=== PATIENT | male | born 1965 | race Caucasian/White ===

== ENCOUNTER 2020-02-14 09:12 | Emergency (ER) | payer BC, SELFPAY ==
[2020-02-14 09:15] VITALS: BP 192/118; PULSE 77; RESP 14; TEMP 37.2; O2SAT 96; BMI 23.7
--- NOTE | 2020-02-14 09:43 | HMH.EDUTC ---
[facility] [place] Clinical Impression: Exposure to COVID-19 virus Disposition: Home, Self-Care Condition on Discharge: Good Instructions: Preventing the Spread of Coronavirus Discharge Instructions Additional Instructions: Drink plenty of fluids. Take tylenol for pain or fever. Follow up with your regular doctor. GO TO THE ER FOR ANY WORSENING SYMPTOMS Follow up with your heart doctor and your primary care physician regarding your blood pressure. Make sure to take your heart medications as prescribed. Referrals: Kev Melendez [Primary Care Provider] - Forms: Work/School Release Time of Disposition: 09:45 Medical Decision Making - Medical Records Medical records reviewed: No: I reviewed the patient's medical records. - Paul Inquiry Pt receiving controlled substance: No Vital Signs: 02/14/20 09:15 02/14/20 10:01 Temperature 98.9 F 98.9 F Temperature Source Oral Pulse Rate 77 Pulse Rate [Left Brachial] 77 Respiratory Rate 14 14 Blood Pressure 192/118 H Blood Pressure [Left Arm] 192/118 H Blood Pressure Mean [Left Arm] 142 Blood Pressure Source [Left Arm] Automatic Cuff Blood Pressure Position [Left Arm] Sitting 02 Sat by Pulse Oximetry 96 Oxygen Delivery Method Room Air Orders (Tests/Meds): ORDERS Category Date Time Status Covid-19 Nasal PCR Sendout Timothy Routine Lab 02/14/20 09:20 [place] [facility] [place] - General Stated complaint: covid symptoms Time Seen by Provider: 02/14/20 09:43 Mode of Arrival: Ambulatory Source of Information: Patient Limitations: No Limitations Description of Symptoms (Recalled from Triage Doc. by RN): PATIENT C/O SORE THROAT, COUGH, AND FATIGUE SINCE FRIDAY. NO KNOWN DIRECT CONTACT, OR FEVER. HEENT Symptoms (Recalled from RN notes): Yes Resp Symptoms (Recalled from RN notes): Yes Skin Symptoms (Recalled from RN notes): No MS Symptoms (Recalled from RN notes): No Functional Status (Recalled from RN notes): WNL - History of Present Illness Provider Complaint: He c/o sore throat and cough for the past 3 days. His boss sent him here to be tested for covid. - Related Data Home Medications Medication Instructions Recorded Confirmed Levothyroxine Sodium 75 mcg PO DAILY 02/14/20 02/14/20 [Levothyroxine 75mcg (0.075mg) Tab] Metoprolol Tartrate [Lopressor 100 100 mg PO BID 02/14/20 02/14/20 mg Tablets] Omeprazole [Omeprazole 20mg 20 mg PO DAILY 02/14/20 02/14/20 Capsule] Sertraline HCl [Zoloft 50mg tablet] 50 mg PO DAILY 02/14/20 02/14/20 Allergies Allergy/AdvReac Type Severity Reaction Status Date / Time Unable to Assess Allergy Verified 02/14/20 09:39 - Worker's Comp Is this a Worker's Comp case?: No [facility] History - Hepatitis A Screen Drug use history?: No High risk sexual behaviors?: No History of sexually transmitted infection?: No Currently employed?: No Childcare worker?: No Do you have indoor plumbing?: Yes Do you have electricity?: Yes Attestation statement:: This patient has been screened for Hepatitis A risk factors. I have reviewed the patient's past medical history: Yes - Social History Alcohol Intake: never Occupational Status: other ROS Obtained: Yes All systems reviewed & no additional complaints - Constitutional Constitutional: Reports system reviewed and no additional complaints, except as docu - Eyes Eyes: Reports system reviewed and no additional complaints, except as docu - ENT Ears, Nose, Mouth, and Throat: Reports system reviewed and no additional complaints, except as docu - Cardiovascular Cardiovascular: Reports system reviewed and no additional complaints, except as docu - Respiratory Respiratory: Yes system reviewed and no additional complaints, except as docu - Gastrointestinal Gastrointestingal: Reports: system reviewed and no additional complaints, except as docu Physical Exam - General General appearance: alert, in no apparent distress - Head H
[2020-02-14 10:01] VITALS: BP 192/118; PULSE 77; RESP 14; TEMP 37.2; O2SAT 96
[2020-02-15 13:07] LABS: Covid-19 Nasal PCR Sendout Lex NOT DETECTED
--- NOTE | 2020-02-15 17:37 | PC.NURSE ---
Results given to pt.
== END 2020-02-14 10:07 | disposition home or self-care (01) ==
PROVIDERS: Emergency Provider Nurse Practitioner Family; PCP Family Medicine
DX: Z20.828 Contact with and (suspected) exposure to other viral communicable diseases (principal); I10 Essential (primary) hypertension; J02.9 Acute pharyngitis, unspecified
CPT/HCPCS: 99201; U0004

== ENCOUNTER → 2020-07-24 11:45 | Outpatient (CLI) | payer BC, SELFPAY ==
--- NOTE | 2020-07-24 11:53 | XR_ITS ---
PROCEDURE: XR LUMBAR SPINE MIN 4V CLINICAL INDICATION: LUMBAR DISC DISEASE,LOW BACK PAIN COMPARISON: No exams were available for comparison FINDINGS: There is straightening of the lumbar lordosis. Degenerative disc disease is present at L4-5 and L5-S1. Prominent anterior osteophytes are present at L5-S1. Small Schmorl's node is present along the superior endplate of L3 with slight loss of height anteriorly of L3 age indeterminate. Lucency is noted within the lamina on the right at L5 and could be due to prior surgical defect. Please correlate with patient's history. Nondistended gas-filled loops of small and large bowel are noted. IMPRESSION: Degenerative changes as described above at L4-5 and L5-S1 with straightening of the lumbar lordosis which could be due to patient positioning or muscle spasm.. Minimal wedging of L3 age indeterminate. Defect in the lamina on the right at L5 which could be postsurgical. Please correlate with surgical history. Dictated by: Binu Elizalde MD 07/24/2020 12:15 Binu Elizalde MD in [place] 07/24/2020 12:15
== END ==
PROVIDERS: PCP Family Medicine; Visit Provider Family Medicine
DX: M54.41 Lumbago with sciatica, right side (principal); M51.9 Unspecified thoracic, thoracolumbar and lumbosacral intervertebral disc disorder
CPT/HCPCS: 72110

== ENCOUNTER → 2020-07-28 14:57 | Outpatient (CLI) | payer BC, SELFPAY ==
--- NOTE | 2020-07-28 15:00 | MR_ITS ---
PROCEDURE INFORMATION: Exam: MR Lumbar Spine Without Contrast Exam date and time: 07/28/2020 3:00 PM Age: 55 years old Clinical indication: Low back pain; Prior surgery; Surgery date: 6+ months; Additional info: Right sided low back pain. HX lumbar surgery in 94. RT sided lbp with pain, numbness, and tingling radiating down leg. Symptoms [id number]. No injury or trauma. Prior x-ray 07-24-20 TECHNIQUE: Imaging protocol: Multiplanar magnetic resonance images of the lumbar spine without intravenous contrast. COMPARISON: CR XR LUMBAR SPINE MIN 4V 07/24/2020 11:55 AM FINDINGS: Vertebrae: Type 2 Modic endplate degenerative changes at the L4-L5 level is seen. No acute fracture or malalignment is seen. Spinal cord: Normal signal. No cord compression. L1-L2: No significant disc disease. No significant spinal canal stenosis. No neural foraminal stenosis. L2-L3: There is loss of disc height and signal with a Schmorl's node seen along the anterior superior endplate of L3. Mild disc bulging is seen. Mild to moderate bilateral facet joint arthropathy is demonstrated. These changes cause minimal spinal and neural foraminal stenosis. L3-L4: There is mild loss of disc height and signal. Mild diffuse disc bulging is seen which extends into the neural foramen bilaterally. In addition there is bilateral facet joint arthropathy and ligamentous hypertrophy the combination of which causes severe bilateral neural foraminal stenosis particularly on the right where there is an associated focal disc protrusion into the neural foramen and severe facet joint arthropathy. This is moderate on the left.. L4-L5: There is severe loss of disc height and signal with a mild diffuse disc bulge which extends into the neural foramen bilaterally. There is associated facet joint arthropathy particularly on the right with near complete loss of the disc height. These changes causes moderate to severe left neural foraminal stenosis severe right neural foraminal stenosis and mild spinal stenosis.. L5-S1: There is complete loss of disc height and signal with type 2 Modic endplate degenerative changes. Moderate bilateral facet joint arthropathy is seen greater on the right than the left with associated severe bilateral neural foraminal stenosis and minimal spinal stenosis. Soft tissues: A simple cyst of the left kidney is seen for which no further imaging is needed.. IMPRESSION: Multilevel degenerative changes as discussed above. No findings of acute fracture or malaligned.
== END ==
PROVIDERS: PCP Family Medicine; Visit Provider Family Medicine
DX: M54.41 Lumbago with sciatica, right side (principal); S32.030A Wedge compression fracture of third lumbar vertebra, initial encounter for closed fracture
CPT/HCPCS: 72148; 76376

== ENCOUNTER → 2020-12-13 11:15 | Outpatient (CLI) | payer BC, SELFPAY ==
--- NOTE | 2020-12-13 | CA_ITS ---
APPROVED REPORT Right Lower Extremity Venous Study for DVT. 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: [employer] Indications Shortness of breath Risk Factors Pedal edema Vein Imaging CFV (R): compressive, spontaneous, phasic, augmentation SFJ (R): compressive, spontaneous, phasic, augmentation FEM (R): compressive, spontaneous, phasic, augmentation POP (R): compressive, spontaneous, phasic, augmentation DFV (R): compressive, spontaneous, phasic, augmentation PTV (R): compressive, spontaneous, phasic, augmentation GSV (R): compressive, spontaneous, phasic, augmentation SSV (R): compressive, spontaneous, phasic, augmentation Peroneals (R):compressive, spontaneous, phasic, augmentation GAS (R): compressive, spontaneous, phasic, augmentation Findings Color flow duplex demonstrates no evidence of DVT of the following right lower extremity Veins:Common Femoral Vein, Femoral Vein, Popliteal Vein, Posterior Tibial Veins, Peroneal Veins, Deep Femoral Vein. Negative for DVT. Conclusion Color flow duplex demonstrates no evidence of DVT of the following right lower extremity Veins:Common Femoral Vein, Femoral Vein, Popliteal Vein, Posterior Tibial Veins, Peroneal Veins, Deep Femoral Vein. Negative for DVT. Electronically signed by : Binu Elizalde MD 12/13/2020 18:32:43
--- NOTE | 2020-12-13 11:46 | XR_ITS ---
PROCEDURE: XR CHEST 2V CLINICAL HISTORY: SOB COMPARISON: No exams were available for comparison FINDINGS: There is mild cardiomegaly without failure. Calcified mediastinal and hilar lymph nodes are present. No lobar consolidation or collapse. There is blunting of the left CP angle age indeterminate and could be related to pleural thickening or small pleural effusion. There are old bilateral rib fractures. No acute bony abnormalities. IMPRESSION: Mild cardiomegaly without failure with evidence of old granulomatous disease. Small left pleural effusion versus pleural thickening. Multiple old bilateral rib fractures Dictated by: Binu Elizalde MD 12/13/2020 13:38 Binu Elizalde MD in [place] 12/13/2020 13:38
[2020-12-13 12:04] LABS: Basophils # 0.2 K/mm3 (0-0.2); Basophils % 1.8 % (0.1-2.0); Eosinophils # 0.1 K/mm3 (0.0-0.4); Eosinophils % 1.3 % (0.1-12.0); Hematocrit 45.4 % (42.0-52.0); Hemoglobin 14.7 g/dL (14.1-18.0); Lymphocytes # 2.8 K/mm3 (0.7-4.5); Lymphocytes % 29.3 % (10-50); Mean Corpuscular HGB Conc 32.4 g/dL (31.8-35.4); Mean Corpuscular Hemoglobin 35.7 pg (27.0-31.2); Mean Corpuscular Volume 110.2 fl (80-94); Mean Platelet Volume 10.1 fl (7.4-10.4); Monocytes # 0.6 K/mm3 (0.1-1.0); Monocytes % 6.6 % (1.7-9.3); Neutrophils # 5.8 K/mm3 (1.8-7.8); Neutrophils % 61.1 % (37.0-80.0); Platelet Count 216 K/mm3 (142-424); Red Blood Count 4.12 M/mm3 (4.60-6.20); Red Cell Distribution Width 13.8 % (11.5-17.5); White Blood Count 9.4 K/mm3 (4.8-10.8)
[2020-12-13 12:32] LABS: Chloride 100 mmol/L (98-107); Potassium 4.8 mmoL/L (3.5-5.1); Sodium 137 mmol/L (136-145)
[2020-12-13 12:34] LABS: Blood Urea Nitrogen 23 mg/dl (9-20); Estimated Glomerular Filt Rate 57 ml/min (>60); GFR (African American) 69 ML/MIN (>60)
[2020-12-13 12:35] LABS: Alanine Aminotransferase 48 U/L (12-78); Albumin Level 3.9 g/dl (3.5-5.0); Albumin/Globulin Ratio 1.5 (1.1-1.8); Alkaline Phosphatase 198 U/L (38-126); Anion Gap 14.8 mEq/L (5-15); Aspartate Amino Transferase 73 U/L (17-59); Bilirubin,Total 1.7 mg/dl (0.2-1.3); Calcium 8.9 mg/dl (8.4-10.2); Carbon Dioxide 27 mmol/L (22.0-30.0); Globulin 2.6 g/dL (1.3-3.2); Glucose 90 mg/dl (74-100); Total Protein,Serum 6.5 g/dl (6.3-8.2)
[2020-12-13 12:44] LABS: NT Pro Brain Natriuretic Pep. 9670 pg/mL (0-125)
[2020-12-13 13:05] LABS: Thyroid Stimulating Hormone 4.61 uIU/mL (0.465-4.68)
== END ==
PROVIDERS: Visit Provider Physician Assistant
DX: R06.02 Shortness of breath (principal); R60.0 Localized edema
CPT/HCPCS: 36415; 71046; 80053; 83880; 84443; 85025; 93971

== ENCOUNTER → 2020-12-19 08:26 | Outpatient (CLI) | payer BC, SELFPAY ==
--- NOTE | 2020-12-19 08:33 | US_ITS ---
PROCEDURE: US ABDOMEN LIMITED CLINICAL INDICATION: ELEVATED LIIVER ENZYMES COMPARISON: CR XR CHEST 2V from 12/13/2020 FINDINGS: PANCREAS: Pancreas is not well delineated due to overlying bowel gas. CT with pancreatic protocol may provide further evaluation if clinically desired. LIVER: There is a small amount of perihepatic fluid. No focal liver lesion demonstrated. There is appropriate direction of blood flow within a non dilated portal vein. RIGHT KIDNEY: Unremarkable. Normal size and echogenicity. No hydronephrosis GALLBLADDER: No gallstones apparent. Gallbladder wall is upper normal at 3 mm. No pericholecystic fluid or biliary dilatation. Common bile duct measures 4 mm. There is a small right pleural effusion IMPRESSION: 1. Small amount of perihepatic fluid. 2. No gallstones. Gallbladder wall upper normal at 3 mm. 3. Small right pleural effusion Dictated by: Binu Elizalde MD 12/19/2020 11:40 Binu Elizalde MD in [place] 12/19/2020 11:40
== END ==
PROVIDERS: PCP Family Medicine; Visit Provider Physician Assistant
DX: R74.8 Abnormal levels of other serum enzymes (principal)
CPT/HCPCS: 76705

== ENCOUNTER → 2020-12-20 08:09 | Outpatient (CLI) | payer BC, SELFPAY ==
--- NOTE | 2020-12-20 | CA_ITS ---
APPROVED REPORT EXAM: Comprehensive 2D, Doppler, and color-flow Echocardiogram Chaser Helper: Estela Wallace CRT Ht: 6 ft 0 in Wt: 233lbs BSA: 2.27 BP: 192/118 mmHg Indications: AFIB, SOB, HTN, DM, EDEMA, Pt states hes gained 50 lb in one month, Pt non-compliant with meds. BP last er visit 192/118 Echo Enhancing Agent Comments: Dr Felix notified of arrhythmia and heart rate 120's - 150's. Pt instructed to go to er following the echo. Pt refused, states he will make an appointment with Dr Felix later in the week. Pt instructed to report directly to ER if symptoms worsen. Pt left the echo lab at 9am. 2D Dimensions LVOT 2.01 cm (M/F) 1.5-2.5 LA Volume 54.00 mL LA Volume Index 23.78 mL/m2 (M/F) 16-34 M-Mode Dimensions RVDd 4.56 cm (0.9-2.6) LA Diam 3.89 cm (1.9-4.0) LVDd 4.52 cm (3.5-5.7) Ao Diam 4.24 cm (2.0-3.7) LVDs 3.27 cm (3.5-5.7) IVSd 2.02 cm (0.6-1.1) PWd 1.21 cm (0.6-1.1) EF (Teich) 53.70% FS 27.70% EDV (Teich) 93.40 mL ESV (Teich) 43.20 mL Aortic Valve AI PHT 291.00 ms AO Peak GR. 4.30 mmHg Pulmonary Valve PV Peak Velocity 169.00 (50-150 cm/s) Tricuspid Valve TR P. Velocity 279.00 cm/s RAP Estimate 10.00 mmHg RVSP 41.20 mmHg Left Ventricle Technically difficult study because of the patient factors and poor acoustic windows, throughout this study patient was in atrial fibrillation with rapid ventricular response. Left atrium is mildly enlarged, left ventricle is normal size, mild concentric left ventricular hypertrophy, visually estimated ejection fraction is approximately 50%, with no obvious regional wall motion abnormality in the visualized segments. Diastolic parameters are inconclusive. Right Ventricle Right atrium and right ventricle moderately enlarged, contractility of the right ventricle is moderately reduced. Aortic Valve Aortic valve is minimally thickened and fibrosed, there is no aortic stenosis or aortic insufficiency. Mitral Valve Mitral valve grossly normal, there is mild mitral regurgitation. Tricuspid Valve Tricuspid grossly normal, there is mild tricuspid regurgitation, calculated right ventricular systolic pressure is 41 mmHg. Pulmonic Valve Pulmonic valve is poorly visualized. Great Vessels Aortic root is normal size. Inferior vena cava is mildly dilated without significant inspiratory collapse. Pericardium Small pericardial effusion noted. Conclusion 1. Technically difficult study because of the patient factors and poor acoustic windows. Biatrial enlargement, normal left ventricular size, mild concentric left ventricular hypertrophy, visually estimated ejection fraction 50% with no obvious regional wall motion abnormality, diastolic parameters are inconclusive. 2. Moderately enlarged right ventricle with moderate reduction right ventricular contractility. 3. Mild mitral and tricuspid regurgitation, calculated right ventricular systolic pressure is 41 mmHg. 4. Inferior vena cava is dilated without significant inspiratory collapse. Electronically signed by : Harsha Bowles MD 12/21/2020 14:32:23
== END ==
PROVIDERS: PCP Family Medicine; Visit Provider Physician Assistant
DX: R06.02 Shortness of breath (principal)
CPT/HCPCS: 93306

== ENCOUNTER 2021-07-23 09:55 | Inpatient (IN) | payer BC, SELFPAY ==
[2021-07-23] VITALS (15 sets, daily range): BP systolic 142–178; BP diastolic 97–134; PULSE 87–162; RESP 14–24; TEMP 36.8–37.2; O2SAT 95–99; BMI 30.4; BMI 29.5
--- NOTE | 2021-07-23 10:27 | XR_ITS ---
FINAL REPORT TECHNIQUE: Single view chest CLINICAL HISTORY: SOB, ER patient COMPARISON: 12/13/2020 FINDINGS: A single view of the chest was obtained. The heart and mediastinum are within normal limits. There is evidence of old granulomas disease. The lungs are otherwise clear. There is no pneumothorax. There are old left rib fractures. IMPRESSION: No acute cardiopulmonary process. Reviewed, Interpreted and Dictated by Dedra Olivas MD Transcribed by Gisell De Authenticated by Dedra Olivas MD on 07/23/2021 12:10:40 PM [facility]
[2021-07-23 10:36] LABS: Basophils # 0.2 K/mm3 (0-0.2); Basophils % 3.6 % (0.1-2.0); Eosinophils # 0.1 K/mm3 (0.0-0.4); Eosinophils % 1.1 % (0.1-12.0); Hematocrit 43.6 % (42.0-52.0); Lymphocytes # 1.1 K/mm3 (0.7-4.5); Lymphocytes % 17.2 % (10-50); Mean Corpuscular HGB Conc 32.2 g/dL (31.8-35.4); Mean Corpuscular Hemoglobin 31.9 pg (27.0-31.2); Mean Corpuscular Volume 99.2 fl (80-94); Mean Platelet Volume 9.4 fl (7.4-10.4); Monocytes # 0.4 K/mm3 (0.1-1.0); Monocytes % 6.2 % (1.7-9.3); Neutrophils # 4.8 K/mm3 (1.8-7.8); Neutrophils % 71.8 % (37.0-80.0); Platelet Count 165 K/mm3 (142-424); Red Cell Distribution Width 16.3 % (11.5-17.5); White Blood Count 6.6 K/mm3 (4.8-10.8)
[2021-07-23 10:41] LABS: Alanine Aminotransferase 26 U/L (12-78); Albumin Level 3.9 g/dl (3.5-5.0); Albumin/Globulin Ratio 1.3 (1.1-1.8); Alkaline Phosphatase 328 U/L (38-126); Anion Gap 11.9 mEq/L (5-15); Aspartate Amino Transferase 42 U/L (17-59); Bilirubin,Total 1.9 mg/dl (0.2-1.3); Blood Urea Nitrogen 13 mg/dl (9-20); Calcium 9.5 mg/dl (8.4-10.2); Carbon Dioxide 32 mmol/L (22.0-30.0); Chloride 94 mmol/L (98-107); Creatinine Clearance Estimated 132 mL/min (50-200); Estimated Glomerular Filt Rate 87 ml/min (>60); GFR (African American) 106 ML/MIN (>60); Globulin 3.1 g/dL (1.3-3.2); Glucose 113 mg/dl (74-100); Potassium 3.9 mmoL/L (3.5-5.1); Sodium 134 mmol/L (136-145)
--- NOTE | 2021-07-23 10:43 | HMH.EDGENADL ---
ED Disposition Clinical Impression: Atrial fibrillation with rapid ventricular response Alcohol withdrawal Qualifiers: Complication of substance-induced condition: uncomplicated Qualified Code(s): F10.230 - Alcohol dependence with withdrawal, uncomplicated Disposition: Admitted As Inpatient Condition on Discharge: Serious - Critical Care Critical Care Time: Yes Attestation: On 07/23/21, the high probability of a clinically significant, sudden or life threatening deterioration of the following system(s) required my full and direct attention, intervention and personal management. The time I documented below is in addition to time spent performing reported procedures but includes the following listed in this critical care notation. Total Critical Care Time: 35 Vital system(s) involved:: Circulatory Failure, Metabolic Failure My critical care processes included: Assessment & monitoring of V/S, Initial and Re-exams, Data Review/Interpretation, Coordinating Care, Medication Orders and management, Documentation Medical Decision Making - Medical Records Medical records reviewed: Yes: I reviewed the patient's medical records. - Paul Inquiry Pt receiving controlled substance: No Vital Signs: 07/23/21 09:56 07/23/21 10:19 07/23/21 10:40 Temperature 98.7 F Temperature Source Oral Pulse Rate 154 H 127 H Pulse Rate [Radial] 162 H Respiratory Rate 22 17 14 Blood Pressure 171/131 H 161/126 H Blood Pressure [Right Arm] 171/131 H Blood Pressure Mean 138 135 Blood Pressure Mean [Right Arm] 144 Blood Pressure Position [Right Arm] Sitting 02 Sat by Pulse Oximetry 98 98 99 Oxygen Delivery Method Room Air 07/23/21 10:50 07/23/21 10:51 07/23/21 11:02 Temperature Temperature Source Pulse Rate 135 H 87 105 H Pulse Rate [Radial] Respiratory Rate 24 24 20 Blood Pressure 149/120 H 156/121 H 167/127 H Blood Pressure [Right Arm] Blood Pressure Mean 129 139 136 Blood Pressure Mean [Right Arm] Blood Pressure Position [Right Arm] 02 Sat by Pulse Oximetry 97 97 97 Oxygen Delivery Method 07/23/21 11:30 Temperature Temperature Source Pulse Rate 150 H Pulse Rate [Radial] Respiratory Rate Blood Pressure 178/127 H Blood Pressure [Right Arm] Blood Pressure Mean Blood Pressure Mean [Right Arm] Blood Pressure Position [Right Arm] 02 Sat by Pulse Oximetry Oxygen Delivery Method - Lab Data Lab Results 07/23/21 10:15: WBC 6.6, RBC 4.40 L, Hgb 14.0 L, Hct 43.6, MCV 99.2 H, MCH 31.9 H, MCHC 32.2, RDW 16.3, Plt Count 165, MPV 9.4, Neut % (Auto) 71.8, Lymph % (Auto) 17.2, [place] % (Auto) 6.2, Eos % (Auto) 1.1, Baso % (Auto) 3.6 H, Neut # (Auto) 4.8, Lymph # (Auto) 1.1, [place] # (Auto) 0.4, Eos # (Auto) 0.1, Baso # (Auto) 0.2 07/23/21 10:15: Sodium 134 L, Potassium 3.9, Chloride 94 L, Carbon Dioxide 32 H, Anion Gap 11.9, BUN 13, Creatinine 0.90, Estimated Creat Clear 132, Estimated GFR 87, Est GFR ( Amer) 106, Glucose 113 H, Calcium 9.5, Total Bilirubin 1.9 H, AST 42, ALT 26, Alkaline Phosphatase 328 H, Troponin I < 0.01, NT-Pro-B Natriuret Pep 8110 H, Total Protein 7.0, Albumin 3.9, Globulin 3.1, Albumin/Globulin Ratio 1.3 07/23/21 10:15: Plasma/Serum Alcohol < 10 07/23/21 10:15: Magnesium 1.6 Result diagrams: 07/23/21 10:15 07/23/21 10:15 Orders (Tests/Meds): ED MEDICATIONS Discontinued Medications Generic Name Dose Route Start Last Admin Trade Name Freq PRN Reason Stop Dose Admin Lactated Ringer's 500 mls @ 999 mls/hr 07/23/21 10:30 07/23/21 10:33 Lactated Ringer's 1000 Ml Bag IV 07/23/21 11:00 999 mls/hr .Q31M RYAN Administration Lorazepam 1 mg 07/23/21 11:07 07/23/21 11:11 Lorazepam 1mg Tablet PO 07/23/21 11:08 1 mg ONCE ONE Administration Metoprolol Tartrate 5 mg 07/23/21 10:29 07/23/21 10:35 Metoprolol Tartrate 5mg/5ml Vial IV 07/23/21 10:30 5 mg ONCE ONE Administration Metoprolol Tartrate 5 mg 07/23/21 11:07 07/23/21 11:32
[2021-07-23 10:45] LABS: Ethyl Alcohol < 10 mg/dl (0-10)
[2021-07-23 10:53] LABS: NT Pro Brain Natriuretic Pep. 8110 pg/mL (0-125)
[2021-07-23 10:54] LABS: Troponin I < 0.01 ng/ml (0.00-0.034)
[2021-07-23 11:03] LABS: Magnesium 1.6 mg/dl (1.6-2.3)
--- NOTE | 2021-07-23 11:16 | ECG_ITS ---
APPROVED REPORT Exam: Resting ECG HR:102 bpm ECG Measurements Heart Rate 102 AXES NJ 165 P 47 QRSd 140 QRS 95 QT 357 T 54 QTc 415 Conclusion SINUS TACHYCARDIA WITH OCCASIONAL SUPRAVENTRICULAR PREMATURE COMPLEXES RIGHT BUNDLE BRANCH BLOCK [120+ ms QRS DURATION, UPRIGHT V1, 40+ ms S IN I/aVL/V4/V5/V6] ABNORMAL ECG UNCONFIRMED REPORT Electronically signed by : Sravan Wayne MD 07/23/2021 17:47:09
--- NOTE | 2021-07-23 11:47 | PC.NURSE ---
Dr Catherine speaking with Dr Felix
--- NOTE | 2021-07-23 12:19 | HMH.PHAINT ---
MEDICATION RECONCILIATION COMPLETED ON PATIENT USING EXTERNAL FILL HISTORY FROM PHARMACY. -CONNIE BARRIENTOS, GUILLERMOD
[2021-07-23 12:22] LABS: Coronavirus 19, PCR Not Detected (NotDetected); Influenza A, PCR Not Detected (NotDetected); Influenza B, PCR Not Detected (NotDetected)
--- NOTE | 2021-07-23 12:34 | PC.NURSE ---
ordered pt meal tray
--- NOTE | 2021-07-23 13:21 | HMH.CNCARD ---
History of Present Illness Consult date: 07/23/21 [facility] History Medical History: Reports:: Supraventricular Tachycardia *Have you ever received a pneumonia vaccine?: No *Have you received a flu vaccine this season?: No - *Social History Smoking Status: Current every day smoker # Packs/Day (cigarettes): 1 Alcohol Intake: current Alcohol Intake Frequency:: a few times a week *Occupational Status:: other Family Hx:: Stroke, Cancer, Hypertension Meds Home Medications Medication Instructions Recorded Confirmed Type Metoprolol Tartrate [Lopressor 100 100 mg PO BID 02/14/20 07/23/21 History mg Tablets] Omeprazole [Omeprazole 20mg 20 mg PO DAILY 02/14/20 07/23/21 History Capsule] Folic Acid 0.4 mg PO DAILY 07/23/21 07/23/21 History Levothyroxine Sodium 88 mcg PO DAILY 07/23/21 07/23/21 History [Levothyroxine 88mcg (0.088mg) Tab] Sertraline HCl 100 mg PO DAILY 07/23/21 07/23/21 History Trazodone HCl 100 mg PO HS 07/23/21 07/23/21 History albuterol sulfate 90 mcg/actuation 2 puff IH Q6H g 07/23/21 07/23/21 History aerosol inhaler Allergies Allergy/AdvReac Type Severity Reaction Status Date / Time furosemide AdvReac kidney Verified 07/23/21 09:20 started shutting down Exam Vital signs and Labs for Last 24 Hours: Temp Pulse Resp BP Pulse Ox 98.7 F 150 H 20 172/115 H 97 07/23/21 09:56 07/23/21 11:30 07/23/21 11:02 07/23/21 13:17 07/23/21 11:02 Laboratory Results - last 24 hr 07/23/21 10:15: WBC 6.6, RBC 4.40 L, Hgb 14.0 L, Hct 43.6, MCV 99.2 H, MCH 31.9 H, MCHC 32.2, RDW 16.3, Plt Count 165, MPV 9.4, Neut % (Auto) 71.8, Lymph % (Auto) 17.2, [place] % (Auto) 6.2, Eos % (Auto) 1.1, Baso % (Auto) 3.6 H, Neut # (Auto) 4.8, Lymph # (Auto) 1.1, [place] # (Auto) 0.4, Eos # (Auto) 0.1, Baso # (Auto) 0.2 07/23/21 10:15: Sodium 134 L, Potassium 3.9, Chloride 94 L, Carbon Dioxide 32 H, Anion Gap 11.9, BUN 13, Creatinine 0.90, Estimated Creat Clear 132, Estimated GFR 87, Est GFR ( Amer) 106, Glucose 113 H, Calcium 9.5, Total Bilirubin 1.9 H, AST 42, ALT 26, Alkaline Phosphatase 328 H, Troponin I < 0.01, NT-Pro-B Natriuret Pep 8110 H, Total Protein 7.0, Albumin 3.9, Globulin 3.1, Albumin/Globulin Ratio 1.3 07/23/21 10:15: Plasma/Serum Alcohol < 10 07/23/21 10:15: Magnesium 1.6 07/23/21 11:58: SARS-CoV-2 (PCR) Not detected, Influenza A Untype (PCR) Not detected, Influenza Type B (PCR) Not detected I & O for Last 24 hours: Intake & Output 07/20/21 07/21/21 07/22/21 07/23/21 23:59 23:59 23:59 23:59 Weight 224 lb
--- NOTE | 2021-07-23 13:24 | HMH.PNCARD ---
Subjective Date: 07/23/21 Time: 13:24 Principal diagnosis: alcohol withdrawal and afib rvr Interval history: Patient initially evaluated in office for routine follow up, appeared to be in acute alcohol withdrawal and was in afib rvr. reports has not been taking Metoprolol as directed. Patient was sent to ER for further evaluation and admitted. Exam Vital signs and Labs for Last 24 Hours: Temp Pulse Resp BP Pulse Ox 98.7 F 150 H 20 172/115 H 97 07/23/21 09:56 07/23/21 11:30 07/23/21 11:02 07/23/21 13:17 07/23/21 11:02 Laboratory Results - last 24 hr 07/23/21 10:15: WBC 6.6, RBC 4.40 L, Hgb 14.0 L, Hct 43.6, MCV 99.2 H, MCH 31.9 H, MCHC 32.2, RDW 16.3, Plt Count 165, MPV 9.4, Neut % (Auto) 71.8, Lymph % (Auto) 17.2, [place] % (Auto) 6.2, Eos % (Auto) 1.1, Baso % (Auto) 3.6 H, Neut # (Auto) 4.8, Lymph # (Auto) 1.1, [place] # (Auto) 0.4, Eos # (Auto) 0.1, Baso # (Auto) 0.2 07/23/21 10:15: Sodium 134 L, Potassium 3.9, Chloride 94 L, Carbon Dioxide 32 H, Anion Gap 11.9, BUN 13, Creatinine 0.90, Estimated Creat Clear 132, Estimated GFR 87, Est GFR ( Amer) 106, Glucose 113 H, Calcium 9.5, Total Bilirubin 1.9 H, AST 42, ALT 26, Alkaline Phosphatase 328 H, Troponin I < 0.01, NT-Pro-B Natriuret Pep 8110 H, Total Protein 7.0, Albumin 3.9, Globulin 3.1, Albumin/Globulin Ratio 1.3 07/23/21 10:15: Plasma/Serum Alcohol < 10 07/23/21 10:15: Magnesium 1.6 07/23/21 11:58: SARS-CoV-2 (PCR) Not detected, Influenza A Untype (PCR) Not detected, Influenza Type B (PCR) Not detected I & O for Last 24 hours: Intake & Output 07/20/21 07/21/21 07/22/21 07/23/21 23:59 23:59 23:59 23:59 Weight 224 lb - Constitutional no acute distress, disheveled - *Routine HEENT Exam Head: Present: normocephalic Eye: Present: EOMI, PERRL ENT: Present: mucous membranes moist - *Routine Respiratory Exam Present: CTA bilaterally - *Routine Cardiovascular Exam Comments: afib rvr - *Routine Neurological Exam Present: tremors Progress Note: A&P Assessment and Plan for All Diagnoses:: Afib rvr Chadsvasc score 1 (HTN) -present in the setting of acute ETOH withdrawal -Recommendation resume home dose of Metoprolol tartrate 100 BID -hydrate ETOH withdrawal - per primary service Cardiology will follow along with you.
--- NOTE | 2021-07-23 13:49 | PC.NURSE ---
REPORT CALLED TO FLOOR
--- NOTE | 2021-07-23 13:54 | P.CONPHA_ITS ---
[facility] VTE Monitoring - Patient Demographics Admission date: 07/23/21 Report Date: 07/23/21 Time: 13:54 Allergies/Adverse Reactions: Patient Allergies furosemide Adverse Reaction (Verified 07/23/21 09:20) kidney started shutting down Height: 1.83 m Weight: 101.605 kg Patient Problems: Current Active Problems Alcohol withdrawal (Acute) Atrial fibrillation with rapid ventricular response (Acute) - VTE Risk Labs: VTE Related Lab Results Hgb 14.0 g/dL (14.1-18.0) L 07/23/21 10:15 Hct 43.6 % (42.0-52.0) 07/23/21 10:15 Plt Count 165 K/mm3 (142-424) 07/23/21 10:15 BUN 13 mg/dl (9-20) 07/23/21 10:15 Creatinine 0.90 mg/dl (0.66-1.25) 07/23/21 10:15 Estimated Creat Clear 132 mL/min (50-200) 07/23/21 10:15 - Prophylaxis VTE Prophylaxis Ordered?: Yes Types of VTE Prophylaxis: TEDS Knee High Location of Applied Device: Bilateral Lower Extremeties
[2021-07-23 14:13] LABS: Troponin I < 0.01 ng/ml (0.00-0.034)
--- NOTE | 2021-07-23 16:43 | HMH.HP ---
*Admission Date: 07/23/21 <BaeDiJoan - 07/23/21 17:16> *Chief complaint: rapid heart rate; SOB <Di Baehy - 07/23/21 17:16> *History of present illness: Mr. Richardson is a 56-year-old male with a history of hypertension, hypothyroidism, GERD, anxiety, insomnia, alcohol and tobacco abuse, CHF, paroxysmal atrial fib who was seen in the cardiology office today and was found to have a rapid heart rate and was sent to the emergency room. Patient at this time had a routine cardiology visit as referred on 07/18/2021 for atrial fib when being seen in the office of A for irregular heart beat with RVR. Ventricular rate was 130. On this date he refused admission and was to continue with his metoprolol 100 mg twice daily. Lasix 40 mg was refilled but patient states he had not had time to pick this up. In the emergency room patient was noted to have elevated blood pressure at 171/131 and 161/126 with a heart rate of 162 and 154 and 127. He was given a 500 mL bolus of fluids, 1 mg of Ativan p.o., and 10 mg of metoprolol total. In addition he received labetalol total of 20 mg IV. Laboratory data revealed a BNP of 8110 with an alkaline phosphatase elevated at 328 and bilirubin elevated at 1.9. Electrolytes revealed a low sodium at 134 potassium of 3.9. Renal function was good with a BUN of 13 and creatinine 0.9. Alcohol level was less than 10. At the time of this exam patient's heart rate is 120-150 and he is in and out of atrial fibrillation.Blood pressure is 161/119. Patient denies chest pain and states he is somewhat periodically short of breath. He states the edema in his legs is better. <KathiaJoan - 07/23/21 17:16> [facility] History Medical History: Reports:: Arrhythmia, Atrial Fibrillation, Hypertension, Palpitations, Supraventricular Tachycardia Denies:: Cancer, Diabetes Mellitus Type 1, Diabetes Mellitus Type 2, Home Oxygen, Internal Pacemaker, MRSA <Joan Bae - 07/23/21 17:16> *Have you ever received a pneumonia vaccine?: No <Joan Bae - 07/23/21 17:16> *Have you received a flu vaccine this season?: No <Joan Bae Tiffany 07/23/21 17:16> Other Medical History: Reports: Anemia, Hypothyroidism <BaeJoan Tiffany 07/23/21 17:16> Comment:: Tobacco and alcohol abuse <KathiaJoan Tiffany 07/23/21 17:16> Other Surgeries: No: Pacemaker <KathiaJoan Tiffany 07/23/21 17:16> Amputation: No <BaeJoan Tiffany 07/23/21 17:16> Comment: Right elbow and right knee surgeries. <KathiaJoan 07/23/21 17:16> - *Social History Last grade of school completed: High school graduate <KathiaJoan 07/23/21 17:16> Smoking Status: Current every day smoker <KathiaJoan 07/23/21 17:16> Tobacco Type: cigarettes <KathiaJoan 07/23/21 17:16> # Packs/Day (cigarettes): 1 <BaeJoan 07/23/21 17:16> Alcohol Intake: current <BaeJoan 07/23/21 17:16> Alcohol Intake Frequency:: 3 or more drinks per day (He states he drinks 4 to 5 days a week.) <BaeJoan 07/23/21 17:16> *Occupational Status:: employed <KathiaJoan 07/23/21 17:16> Housing: house <KathiaJoan 07/23/21 17:16> Household Members: significant other <BaeJoan 07/23/21 17:16> *Travel in the last 8 weeks: None <BaeJoan 07/23/21 17:16> Family Hx:: Stroke <BaeJoan 07/23/21 17:16> Review of Systems - Constitutional Denies fever(s) <Joan Bae 07/23/21 17:16> - Eyes Denies change in vision (He does wear glasses) <Joan Bae 07/23/21 17:16> - ENT Reports post nasal drip, Denies dizziness, Denies ear pain, Denies sore throat <Joan Bae 07/23/21 17:16> - *Cardiovascular Reports shortness of breath, Reports leg swelling, Denies chest pain <Joan Bae - 07/23/21 17:16> - *Respiratory Reports cough (Chronic productive cough), Reports shortness of breath, Denies chest congestion, Denies coughing up blood <Joan Bae 07/23/21 17:16> - *Gastrointestinal Reports loose stools (He experiences periodic
[2021-07-23 17:01] LABS: Phosphorous 3.5 mg/dl (2.5-4.5)
[2021-07-23 17:43] LABS: INR 1.11 (0.9-1.1); Prothrombin Time 12.4 seconds (10.1-12.5)
--- NOTE | 2021-07-23 23:04 | PC.NURSE ---
Nurse went into room at approx 1035. Pts Iv was beeping. Reset his IV, adjusted the tubing from under the patient and emptied his urinal. Spoke with Alonso and asked him what he said. Pt stated I talk in my sleep. I do not need anything thank you. Nurse left the room. Loud thump heard from Pts room by PROCESS TRAINER. Investigated and found Pt on floor at 1045. PT stated I got up to pee and when I went to get back in bed and I slid to the floor. Noted a plastic lined incont. pad. was behind Pts back. IT appeared that Pt sat on the plastic mariana and slid off the bed back onto the floor. Pt was incont. in the bed earlier and the PROCESS TRAINER placed the lined pads in the bed to prevent further accidents. Pt examined and found to have a scrape on his coccyx. That was bleeding. First aide was administered and Pt was assisted back to bed. PT stated I do not think anything is broken. It just feels like a scape on my butt. Dr. Bridges was notified of the fall. No new orders at this time.
[2021-07-24] VITALS (29 sets, daily range): BP systolic 97–156; BP diastolic 68–115; PULSE 66–142; RESP 16–22; TEMP 36.6–36.9; O2SAT 92–100; BMI 29.2
--- NOTE | 2021-07-24 06:02 | PC.NURSE ---
Dr Urias notified several times through out the night. Pts hr in the 120-140 most of the night. Orders for labeltol given per orders.
[2021-07-24 07:28] LABS: Basophils # 0.1 K/mm3 (0-0.2); Basophils % 2.3 % (0.1-2.0); Eosinophils # 0.2 K/mm3 (0.0-0.4); Eosinophils % 2.5 % (0.1-12.0); Hematocrit 38.5 % (42.0-52.0); Lymphocytes # 1.6 K/mm3 (0.7-4.5); Lymphocytes % 25.7 % (10-50); Mean Corpuscular HGB Conc 33.6 g/dL (31.8-35.4); Mean Corpuscular Hemoglobin 33.4 pg (27.0-31.2); Mean Corpuscular Volume 99.3 fl (80-94); Mean Platelet Volume 9.5 fl (7.4-10.4); Monocytes # 0.5 K/mm3 (0.1-1.0); Neutrophils # 3.8 K/mm3 (1.8-7.8); Neutrophils % 61.5 % (37.0-80.0); Platelet Count 149 K/mm3 (142-424); Red Blood Count 3.88 M/mm3 (4.60-6.20); Red Cell Distribution Width 16.4 % (11.5-17.5); White Blood Count 6.1 K/mm3 (4.8-10.8)
[2021-07-24 07:36] LABS: Ammonia 18 umol/L (9-30)
[2021-07-24 07:38] LABS: Alanine Aminotransferase 16 U/L (12-78); Albumin Level 3.2 g/dl (3.5-5.0); Albumin/Globulin Ratio 1.1 (1.1-1.8); Alkaline Phosphatase 274 U/L (38-126); Anion Gap 11.8 mEq/L (5-15); Aspartate Amino Transferase 33 U/L (17-59); Bilirubin,Total 1.8 mg/dl (0.2-1.3); Blood Urea Nitrogen 14 mg/dl (9-20); Calcium 8.7 mg/dl (8.4-10.2); Carbon Dioxide 28 mmol/L (22.0-30.0); Chloride 98 mmol/L (98-107); Creatinine Clearance Estimated 114 mL/min (50-200); Estimated Glomerular Filt Rate 77 ml/min (>60); GFR (African American) 94 ML/MIN (>60); Globulin 2.8 g/dL (1.3-3.2); Glucose 85 mg/dl (74-100); Potassium 3.8 mmoL/L (3.5-5.1); Sodium 134 mmol/L (136-145)
[2021-07-24 07:43] LABS: Magnesium 1.7 mg/dl (1.6-2.3)
--- NOTE | 2021-07-24 07:56 | HMH.ACPN2 ---
<Joan Bae - Last Filed: 07/24/21 07:56> Internal Medicine - PN: Subj *Date: 07/24/21 *Time: 07:56 Interval history: Patient states he did not sleep last night due to many interruptions. He denies shortness of breath and chest pain. He voided frequently with a good urinary output. He did get up at 1 point and slid to the floor scraping his back and hurting his tailbone. He would like to eat today. Bowels have not moved. CIWA is 3. Patient did receive a total of 50 mg of IV labetalol during the night for his atrial fibrillation with a rapid ventricular response. Blood pressure has improved this morning at 150/86. Exam Vital signs and Labs for Last 24 Hours: Temp Pulse Resp BP Pulse Ox 98.1 F 120 H 18 150/86 H 94 L 07/24/21 07:39 07/24/21 07:39 07/24/21 07:39 07/24/21 07:39 07/24/21 07:39 Laboratory Results - last 24 hr 07/23/21 10:15: WBC 6.6, RBC 4.40 L, Hgb 14.0 L, Hct 43.6, MCV 99.2 H, MCH 31.9 H, MCHC 32.2, RDW 16.3, Plt Count 165, MPV 9.4, Neut % (Auto) 71.8, Lymph % (Auto) 17.2, Stanton % (Auto) 6.2, Eos % (Auto) 1.1, Baso % (Auto) 3.6 H, Neut # (Auto) 4.8, Lymph # (Auto) 1.1, Stanton # (Auto) 0.4, Eos # (Auto) 0.1, Baso # (Auto) 0.2 07/23/21 10:15: Sodium 134 L, Potassium 3.9, Chloride 94 L, Carbon Dioxide 32 H, Anion Gap 11.9, BUN 13, Creatinine 0.90, Estimated Creat Clear 132, Estimated GFR 87, Est GFR ( Amer) 106, Glucose 113 H, Calcium 9.5, Total Bilirubin 1.9 H, AST 42, ALT 26, Alkaline Phosphatase 328 H, Troponin I < 0.01, NT-Pro-B Natriuret Pep 8110 H, Total Protein 7.0, Albumin 3.9, Globulin 3.1, Albumin/Globulin Ratio 1.3 07/23/21 10:15: Plasma/Serum Alcohol < 10 07/23/21 10:15: Magnesium 1.6 07/23/21 10:15: Phosphorus 3.5 07/23/21 11:58: SARS-CoV-2 (PCR) Not detected, Influenza A Untype (PCR) Not detected, Influenza Type B (PCR) Not detected 07/23/21 13:24: Troponin I < 0.01 07/23/21 16:57: PT 12.4, INR 1.11 H, APTT 30.0 07/24/21 06:44: WBC 6.1, RBC 3.88 L, Hgb 13.0 L, Hct 38.5 L, MCV 99.3 H, MCH 33.4 H, MCHC 33.6, RDW 16.4, Plt Count 149, MPV 9.5, Neut % (Auto) 61.5, Lymph % (Auto) 25.7, Stanton % (Auto) 8.0, Eos % (Auto) 2.5, Baso % (Auto) 2.3 H, Neut # (Auto) 3.8, Lymph # (Auto) 1.6, Stanton # (Auto) 0.5, Eos # (Auto) 0.2, Baso # (Auto) 0.1 07/24/21 06:44: Sodium 134 L, Potassium 3.8, Chloride 98, Carbon Dioxide 28, Anion Gap 11.8, BUN 14, Creatinine 1.00, Estimated Creat Clear 114, Estimated GFR 77, Est GFR ( Amer) 94, Glucose 85 D, Calcium 8.7, Total Bilirubin 1.8 H, AST 33, ALT 16 D, Alkaline Phosphatase 274 H, Total Protein 6.0 L, Albumin 3.2 L D, Globulin 2.8, Albumin/Globulin Ratio 1.1 07/24/21 06:44: Magnesium 1.7 07/24/21 06:44: Ammonia 18 I & O for Last 24 hours: Intake & Output 07/21/21 07/22/21 07/23/21 07/24/21 11:59 11:59 11:59 11:59 Intake Total 120 / 120 Output Total 1850 / 1850 Balance -1730 / -1730 Weight 224 lb 216 lb 4.8 oz - Constitutional no acute distress Comments: Patient is awake and alert. - *Routine Respiratory Exam Present: rhonchi (Anteriorly), crackles (In the left lower lobe with diminished breath sounds in the right lower lobe) - *Routine Cardiovascular Exam Present: irregular rhythm Comments: Monitor showing atrial fibrillation with ventricular response 130/min - *Routine Abdominal Exam Present: normoactive bowel sounds, distended. Absent: tenderness - *Routine Extremities Exam Present: edema. Absent: calf tenderness Comments: Erythema of bilateral lower extremities. - *Routine Neurological Exam Present: alert, oriented X3 (He is oriented he just has a hard time getting his thoughts together what would you call him), normal speech Slow thought processes Assessment and Plan (1) Hypertensive urgency Status: Acute Category: Medical Code(s): I16.0 - Hypertensive urgency (2) Atrial fibrillation with rapid ventricular response Status: Acute Category: Medical Code(s): I48.91 - Unspecified atrial fibrilla
--- NOTE | 2021-07-24 08:00 | US_ITS ---
FINAL REPORT TECHNIQUE: Sonographic images of the abdomen were obtained in all four quadrants. CLINICAL HISTORY: ETOH, cirrhosis, ascites FINDINGS: The liver is slightly coarsened in echotexture. It is mildly enlarged. There is no focal hepatic lesion or intrahepatic biliary dilatation. The portal vein is patent with normal directional flow. The gallbladder is well filled. There are no gallstones. There is mild gallbladder wall thickening which is nonspecific in setting of ascites. The common duct measures 7 mm which is mildly dilated. The pancreas has a normal sonographic appearance. The right and left kidneys measure 11.5 and 11.6 cm respectively. There is a left renal cyst. The spleen measures 12.3 cm in [id number] length. There are multiple granulomas. There is ascites. The visualized abdominal aorta and inferior vena cava are within normal limits. IMPRESSION: 1. Coarsened echotexture to the liver which can be seen with cirrhosis. 2. Gallbladder wall thickening which is nonspecific in setting of ascites. 3. Mildly prominent common duct. Reviewed, Interpreted and Dictated by Dedra Olivas MD Transcribed by Renee Love Authenticated by Dedra Olivas MD on 07/24/2021 11:51:[address] [facility]
[2021-07-24 08:08] LABS: Thyroid Stimulating Hormone 4.68 uIU/mL (0.465-4.68)
--- NOTE | 2021-07-24 08:32 | HMH.PNCARD ---
Subjective Date: 07/24/21 Time: 08:33 Principal diagnosis: alcohol withdrawal and afib rvr Interval history: Patient remained hypertensive in afib rvr despite resuming home metoprolol and fluids. will start Cardizem drip. ultrasound at bedside. Exam Vital signs and Labs for Last 24 Hours: Temp Pulse Resp BP Pulse Ox 98.1 F 120 H 18 150/86 H 94 L 07/24/21 07:39 07/24/21 07:39 07/24/21 07:39 07/24/21 07:39 07/24/21 07:39 Laboratory Results - last 24 hr 07/23/21 10:15: WBC 6.6, RBC 4.40 L, Hgb 14.0 L, Hct 43.6, MCV 99.2 H, MCH 31.9 H, MCHC 32.2, RDW 16.3, Plt Count 165, MPV 9.4, Neut % (Auto) 71.8, Lymph % (Auto) 17.2, Dane % (Auto) 6.2, Eos % (Auto) 1.1, Baso % (Auto) 3.6 H, Neut # (Auto) 4.8, Lymph # (Auto) 1.1, Dane # (Auto) 0.4, Eos # (Auto) 0.1, Baso # (Auto) 0.2 07/23/21 10:15: Sodium 134 L, Potassium 3.9, Chloride 94 L, Carbon Dioxide 32 H, Anion Gap 11.9, BUN 13, Creatinine 0.90, Estimated Creat Clear 132, Estimated GFR 87, Est GFR ( Amer) 106, Glucose 113 H, Calcium 9.5, Total Bilirubin 1.9 H, AST 42, ALT 26, Alkaline Phosphatase 328 H, Troponin I < 0.01, NT-Pro-B Natriuret Pep 8110 H, Total Protein 7.0, Albumin 3.9, Globulin 3.1, Albumin/Globulin Ratio 1.3 07/23/21 10:15: Plasma/Serum Alcohol < 10 07/23/21 10:15: Magnesium 1.6 07/23/21 10:15: Phosphorus 3.5 07/23/21 11:58: SARS-CoV-2 (PCR) Not detected, Influenza A Untype (PCR) Not detected, Influenza Type B (PCR) Not detected 07/23/21 13:24: Troponin I < 0.01 07/23/21 16:57: PT 12.4, INR 1.11 H, APTT 30.0 07/24/21 06:44: WBC 6.1, RBC 3.88 L, Hgb 13.0 L, Hct 38.5 L, MCV 99.3 H, MCH 33.4 H, MCHC 33.6, RDW 16.4, Plt Count 149, MPV 9.5, Neut % (Auto) 61.5, Lymph % (Auto) 25.7, Dane % (Auto) 8.0, Eos % (Auto) 2.5, Baso % (Auto) 2.3 H, Neut # (Auto) 3.8, Lymph # (Auto) 1.6, Dane # (Auto) 0.5, Eos # (Auto) 0.2, Baso # (Auto) 0.1 07/24/21 06:44: Sodium 134 L, Potassium 3.8, Chloride 98, Carbon Dioxide 28, Anion Gap 11.8, BUN 14, Creatinine 1.00, Estimated Creat Clear 114, Estimated GFR 77, Est GFR ( Amer) 94, Glucose 85 D, Calcium 8.7, Total Bilirubin 1.8 H, AST 33, ALT 16 D, Alkaline Phosphatase 274 H, Total Protein 6.0 L, Albumin 3.2 L D, Globulin 2.8, Albumin/Globulin Ratio 1.1, TSH 4.68 07/24/21 06:44: Magnesium 1.7 07/24/21 06:44: Ammonia 18 I & O for Last 24 hours: Intake & Output 07/21/21 07/22/21 07/23/21 07/24/21 23:59 23:59 23:59 23:59 Intake Total 120 / 120 0 / 0 Output Total 1850 / 1850 Balance 120 / -1130 -1850 / -1850 Weight 218 lb 2 oz 216 lb 4.8 oz - Constitutional no acute distress - *Routine Respiratory Exam Present: CTA bilaterally - *Routine Cardiovascular Exam Comments: remains afib rvr Progress Note: A&P (1) Hypertensive urgency Status: Acute (2) Atrial fibrillation with rapid ventricular response Status: Acute (3) Alcohol abuse Status: Chronic (4) Tobacco abuse Status: Chronic (5) Hypertension Status: Chronic (6) CHF (congestive heart failure) Status: Acute (7) Hypothyroidism Status: Chronic (8) Alcohol withdrawal Status: Acute Assessment and Plan for All Diagnoses:: Afib rvr Chadsvasc score 2 (HTN+ heartfailure) -Echo 12/21- biatrial enlargement, mild LVH, EF 50 with no regional wall motion, DD indeterminate, mild MR, moderate enlarged right ventricle. Pressure 41. - OF note patient was in rapid afib during this evaluation. Echo 07/24- mild reduction in EF to 45-50, elevated pressure 48-53. Enlarged right ventricle. -present in the setting of acute ETOH withdrawal -Recommendation resume home dose of Metoprolol tartrate 100 BID -hydrate -eliquis initiated per primary service. Risks vs benefits should be discussed with patient since regularly uses ETOH. monitor for GI bleeding. 07/24- Remains afib rvr, start cardizem drip. once rate control achieved transition to oral Dilt 240mg ER QD. Cor Pulmonale/Reduced EF in the setting of rapid afib- nYHA II-III
--- NOTE | 2021-07-24 10:29 | PC.NURSE ---
Report received from Aure Carrero at 0700. During morning rounds order placed to put patient on iv drip. Patient ordered to be transferred to step down to initiate iv drip for a fib with rvr. Report given to Teresa Ocampo.
--- NOTE | 2021-07-24 13:36 | ECG_ITS ---
APPROVED REPORT Exam: Resting ECG HR:72 bpm ECG Measurements Heart Rate 72 AXES NV 144 P 3 QRSd 132 QRS 97 QT 438 T 107 QTc 463 Conclusion SINUS RHYTHM RIGHT BUNDLE BRANCH BLOCK [120+ ms QRS DURATION, UPRIGHT V1, 40+ ms S IN I/aVL/V4/V5/V6] ABNORMAL ECG UNCONFIRMED REPORT Electronically signed by : Sravan Wayne MD 07/27/2021 10:34:34
--- NOTE | 2021-07-24 13:55 | PC.NURSE ---
pt moved to stepdown at approx 0915. pt placed on diltiazem drip at 0926, rate was noted to be in the 110-130 range. drip started at 10ml/hr. rate increased to 15ml/hr r/t persistent uncontrolled afib with rate in the 120's at 1100. pt note to be controlled afib (rate in the 80-90) at approx 1141. noted to be nsr/sr at 1300 with rate 65-70. Estefany notified when she called to check on pt at approx 1313. order was entered for po dose and drip to stopped an hour after. drip decreased to 5ml/hr at this time as well.
--- NOTE | 2021-07-24 15:29 | PC.NURSE ---
diltiazem drip stopped at 1528
--- NOTE | 2021-07-24 16:37 | CA_ITS ---
APPROVED REPORT EXAM: Comprehensive 2D, Doppler, and color-flow Echocardiogram [employer]: LAVERN Hummel, RVS Ht: 5 ft 10 in Wt: 218lbs BSA: 2.17 HR: 130 bpm BP: 161/119 mmHg Rhythm: Atrial Fibrillation Indications: Afib w RVR, Hx-SVT with 2 previous ablations, ETOH use, HTN, GERD 2D Dimensions IVSd 1.50 cm M: 0.6-1.2 LVEF (Visual) 56.50 % PWd 1.17 cm M: 0.6 - 1.2 LA Volume 90.00 mL LVDd 4.42 cm M: 4.2 - 5.9 LA Volume Index [id number] mL/m2 (M/F) 16-34 LVDs 3.12 cm M: 2.5 - 4.0 Aortic Root 3.55 cm M: 3.1 - 3.7 Left Atrium 3.80 cm M: 3.0 - 4.0 LVOT 2.11 cm (M/F) 1.5-2.5 M-Mode Dimensions RVDd 3.81 cm (0.9-2.6) LA Diam 4.28 cm (1.9-4.0) LVDd 4.57 cm (3.5-5.7) Ao Diam 3.83 cm (2.0-3.7) LVDs 3.14 cm (3.5-5.7) IVSd 1.61 cm (0.6-1.1) PWd 1.21 cm (0.6-1.1) EF (Teich) 59.20% EPSs 0.36 cm FS 31.30% EDV (Teich) 95.90 mL TAPSE 0.89 (<1.7) ESV (Teich) 39.10 mL LV Diastology E Decel Time 150.00 (160-240 msec) Aortic Valve LVOT Max 72.00 (70-110 cm/s) LVOT VTI 13.27 cm AoV Peak Balwinder. 106.00 (50-130 cm/s) AO Peak GR. 4.50 mmHg AO Mean GR. 2.30 (<5 mmHg) AO VTI 14.88 (18-25 cm) WILLY (VTI) 3.12 (2.5-4.5 cm2) Mitral Valve MV E Max Balwinder. 112.00 (40-130 cm/s) MV Decel. Time 150.00 (160-240 ms) MV Mean Gr. 3.90 (<2mmHg) MV PHT 44.00 ms Pulmonary Valve PV Peak Velocity 45.00 (50-150 cm/s) AZ End VMAX 175.00 cm/s Tricuspid Valve TR P. Velocity 309.00 cm/s RAP Estimate 10.00 mmHg RVSP 48.20 mmHg Left Ventricle Left atrium is moderately enlarged, left ventricle is normal size, mild concentric left ventricular hypertrophy, estimated ejection fraction 55% with no regional wall motion abnormality. Diastolic parameters are inconclusive. Right Ventricle Right atrium and right ventricle are moderately enlarged, contractility of the right ventricle is mildly reduced. Aortic Valve Aortic valve is minimally thickened and fibrosed there is no aortic stenosis or aortic insufficiency. Mitral Valve Mitral valve leaflets are minimally thickened, there is mild mitral regurgitation. Tricuspid Valve Tricuspid valve leaflets are minimally thickened, there is moderate tricuspid regurgitation, calculated right ventricular systolic pressure is 48 mmHg. Pulmonic Valve Pulmonic valve is poorly visualized. Great Vessels Aortic root is normal size. Inferior vena cava is poorly visualized. Pericardium Small pericardial effusion noted. Conclusion 1. Biatrial enlargement, normal left ventricular size, mild concentric left ventricular hypertrophy, estimated ejection fraction 55% with no regional wall motion abnormality, diastolic parameters are inconclusive. 2. Moderately enlarged right atrium and right ventricle, contractility of the right ventricle is mildly reduced. 3. Mild mitral and moderate tricuspid regurgitation, calculated right ventricular systolic pressure 48 mmHg 4. Small pericardial effusion. 5. Inferior vena cava is poorly visualized. Electronically signed by : Harsha Bowles MD 07/24/2021 20:00:20
--- NOTE | 2021-07-24 17:59 | PC.NURSE ---
Admissions notified pt is no longer SD
[2021-07-25] VITALS (10 sets, daily range): BP systolic 94–127; BP diastolic 70–92; PULSE 60–84; RESP 16–24; TEMP 36.5–37.1; O2SAT 92–97; BMI 29.2
--- NOTE | 2021-07-25 04:32 | PC.NURSE ---
Patient is alert and oriented x4. Has not c/o pain this shift. Continues on room air tolerating well. Call light in place and working appropriately.
[2021-07-25 06:17] LABS: Alanine Aminotransferase 15 U/L (12-78); Albumin Level 3.2 g/dl (3.5-5.0); Albumin/Globulin Ratio 1.1 (1.1-1.8); Alkaline Phosphatase 255 U/L (38-126); Anion Gap 8.7 mEq/L (5-15); Aspartate Amino Transferase 28 U/L (17-59); Bilirubin,Total 1.1 mg/dl (0.2-1.3); Blood Urea Nitrogen 17 mg/dl (9-20); Calcium 8.6 mg/dl (8.4-10.2); Carbon Dioxide 31 mmol/L (22.0-30.0); Chloride 98 mmol/L (98-107); Creatinine Clearance Estimated 95 mL/min (50-200); Estimated Glomerular Filt Rate 63 ml/min (>60); GFR (African American) 76 ML/MIN (>60); Globulin 2.8 g/dL (1.3-3.2); Glucose 95 mg/dl (74-100); Potassium 3.7 mmoL/L (3.5-5.1); Sodium 134 mmol/L (136-145)
--- NOTE | 2021-07-25 07:49 | HMH.ACPN2 ---
<Joan Bae - Last Filed: 07/25/21 07:49> Internal Medicine - PN: Subj *Date: 07/25/21 *Time: 07:49 Interval history: Patient describes minimal sleep for the last 3 nights. He states he slept about an hour and a half last night. He denies chest pain. He has exertional shortness of breath. Eating satisfactory. Bowels have moved and seem to be somewhat loose. He is voiding QS. Cough continues but is less congested. Patient was briefly on a Cardizem drip after which he converted to sinus rhythm with an improved blood pressure. This morning blood pressures is lower with systolic being in the 90s. He denies any associated dizziness and walks to the bathroom without difficulty with standby assist. CIWA is documented 1. Laboratory data this morning reveals normal renal function and normal bilirubin. Potassium is 3.7 with a sodium of 134.He had an abdominal ultrasound yesterday 07/24/2021 with the following results: FINDINGS: The liver is slightly coarsened in echotexture. It is mildly enlarged. There is no focal hepatic lesion or intrahepatic biliary dilatation. The portal vein is patent with normal directional flow. The gallbladder is well filled. There are no gallstones. There is mild gallbladder wall thickening which is nonspecific in setting of ascites. The common duct measures 7 mm which is mildly dilated. The pancreas has a normal sonographic appearance. The right and left kidneys measure 11.5 and 11.6 cm respectively. There is a left renal cyst. The spleen measures 12.3 cm in eamm-ri-empu length. There are multiple granulomas. There is ascites. The visualized abdominal aorta and inferior vena cava are within normal limits. IMPRESSION: 1. Coarsened echotexture to the liver which can be seen with cirrhosis. 2. Gallbladder wall thickening which is nonspecific in setting of ascites. 3. Mildly prominent common duct. 07/24/2021 ECHO results as follows: Conclusion 1. Biatrial enlargement, normal left ventricular size, mild concentric left ventricular hypertrophy, estimated ejection fraction 55% with no regional wall motion abnormality, diastolic parameters are inconclusive. 2. Moderately enlarged right atrium and right ventricle, contractility of the right ventricle is mildly reduced. 3. Mild mitral and moderate tricuspid regurgitation, calculated right ventricular systolic pressure 48 mmHg 4. Small pericardial effusion. 5. Inferior vena cava is poorly visualized. Exam Vital signs and Labs for Last 24 Hours: Temp Pulse Resp BP Pulse Ox 98.7 F 74 16 96/72 L 94 L 07/25/21 04:00 07/25/21 06:02 07/25/21 04:00 07/25/21 04:00 07/25/21 06:02 Laboratory Results - last 24 hr 07/24/21 06:44: Sodium 134 L, Potassium 3.8, Chloride 98, Carbon Dioxide 28, Anion Gap 11.8, BUN 14, Creatinine 1.00, Estimated Creat Clear 114, Estimated GFR 77, Est GFR ( Amer) 94, Glucose 85 D, Calcium 8.7, Total Bilirubin 1.8 H, AST 33, ALT 16 D, Alkaline Phosphatase 274 H, Total Protein 6.0 L, Albumin 3.2 L D, Globulin 2.8, Albumin/Globulin Ratio 1.1, TSH 4.68 07/24/21 06:44: Magnesium 1.7 07/24/21 06:44: Ammonia 18 07/25/21 05:50: Sodium 134 L, Potassium 3.7, Chloride 98, Carbon Dioxide 31 H, Anion Gap 8.7, BUN 17, Creatinine 1.20, Estimated Creat Clear 95, Estimated GFR 63, Est GFR ( Amer) 76, Glucose 95, Calcium 8.6, Total Bilirubin 1.1, AST 28, ALT 15, Alkaline Phosphatase 255 H, Total Protein 6.0 L, Albumin 3.2 L, Globulin 2.8, Albumin/Globulin Ratio 1.1 I & O for Last 24 hours: Intake & Output 07/22/21 07/23/21 07/24/21 07/25/21 11:59 11:59 11:59 11:59 Intake Total 120 / 120 600 / 600 Output Total 1850 / 1850 140 / 140 Balance -1730 / -1730 460 / 460 Weight 224 lb 216 lb 4.8 oz 216 lb 4.8 oz - Constitutional no acute distress - *Routine Respiratory Exam Present: CTA bilaterally (Anteriorly and posteriorly) - *Routine Cardiovascular Exam Present: RRR (Her showing
--- NOTE | 2021-07-25 09:20 | HMH.PNCARD ---
Subjective Date: 07/25/21 Time: 09:20 Principal diagnosis: alcohol withdrawal and afib rvr Interval history: patient remains NSR rate of 70s. off Cardizem drip. BP on lower side. patient reports hasn't been sleeping well because i cannot fall asleep. Denies cp, soa, or palpitations. Exam Vital signs and Labs for Last 24 Hours: Temp Pulse Resp BP Pulse Ox 97.9 F 71 16 105/71 L 97 07/25/21 08:00 07/25/21 08:00 07/25/21 08:00 07/25/21 08:00 07/25/21 08:00 Laboratory Results - last 24 hr 07/25/21 05:50: Sodium 134 L, Potassium 3.7, Chloride 98, Carbon Dioxide 31 H, Anion Gap 8.7, BUN 17, Creatinine 1.20, Estimated Creat Clear 95, Estimated GFR 63, Est GFR ( Amer) 76, Glucose 95, Calcium 8.6, Total Bilirubin 1.1, AST 28, ALT 15, Alkaline Phosphatase 255 H, Total Protein 6.0 L, Albumin 3.2 L, Globulin 2.8, Albumin/Globulin Ratio 1.1 I & O for Last 24 hours: Intake & Output 07/22/21 07/23/21 07/24/21 07/25/21 23:59 23:59 23:59 23:59 Intake Total 120 / 120 600 / 600 240 / 240 Output Total 0 / 1989 140 / 140 Balance 120 / -1130 -1250 / -1390 100 / 100 Weight 218 lb 2 oz 216 lb 4.8 oz 216 lb 4.8 oz - Constitutional no acute distress - *Routine HEENT Exam Head: Present: normocephalic Eye: Present: EOMI, PERRL ENT: Present: mucous membranes moist - *Routine Neck Exam Present: supple. Absent: lymphadenopathy - *Routine Respiratory Exam Present: CTA bilaterally - *Routine Cardiovascular Exam Present: RRR - *Routine Abdominal Exam Present: soft, normoactive bowel sounds. Absent: tenderness - *Routine Extremities Exam Absent: cyanosis, clubbing, edema - *Routine Skin Exam Present: warm. Absent: rash - *Routine Neurological Exam Present: alert, oriented X3 Progress Note: A&P (1) Hypertensive urgency Status: Acute (2) Atrial fibrillation with rapid ventricular response Status: Acute (3) Alcohol abuse Status: Chronic (4) Tobacco abuse Status: Chronic (5) Hypertension Status: Chronic (6) CHF (congestive heart failure) Status: Acute (7) Hypothyroidism Status: Chronic (8) Alcohol withdrawal Status: Acute (9) Cirrhosis, alcoholic Status: Acute Assessment and Plan for All Diagnoses:: Afib rvr Chadsvasc score 2 (HTN+ heartfailure) -Echo 12/21- biatrial enlargement, mild LVH, EF 50 with no regional wall motion, DD indeterminate, mild MR, moderate enlarged right ventricle. Pressure 41. - OF note patient was in rapid afib during this evaluation. Echo 07/24- mild reduction in EF to 45-50, elevated pressure 48-53. Enlarged right ventricle. -present in the setting of acute ETOH withdrawal -Recommendation resume home dose of Metoprolol tartrate 100 BID -hydrate -eliquis initiated per primary service. Risks vs benefits should be discussed with patient since regularly uses ETOH. monitor for GI bleeding. 07/24- Remains afib rvr, start cardizem drip. once rate control achieved transition to oral Dilt 240mg ER QD. 07/25- Remains NSR rate of 70 Cor Pulmonale/Reduced EF in the setting of rapid afib- nYHA II-III - Hard to determine if EF is truly reduced, will need repeat limited echo once rate control is achieved. This can be done outpatient in office. - BP low, will hold sathish for now. Continue Bumex 1mg QD. Consider aldactone and jardiance at dc. HTN with episodes of hypotension - Home metoprolol should be reduced to 50mg BID - Lisinopril 10mg QD 07/25- BP low today, will hold lisinopril. ETOH withdrawal - per primary service 07/25 summary: Remains NSR, BP low. Morning lisinopril held. CV stable for dc. Recommend to lower Metoprolol to 50 BID, continue Lisinopril 10 and other meds. Office follow up in 2 weeks. Can get repeat limted Echo outpatient if remains in NSR. DC med list Metoprolol Tartrate 50mg BID Diltiazem ER 240mg QD Eliquis 5mg BID Bumex 1 mg QD. Lisinopril 10mg QD
--- NOTE | 2021-07-25 10:56 | PC.NURSE ---
0925- [facility] notified of transfer to [facility] pending covid test. 1031- [facility] notified of covid result. pt ready for transfer at this time.
--- NOTE | 2021-07-25 17:05 | PC.NURSE ---
pt is aox4, able to make needs known to staff, tolerating ra well. ambulates to restroom with assist x1. ciwa score 1 t/o shift
[2021-07-26] VITALS: BP 147/94; PULSE 104; PULSE 90; RESP 22; TEMP 35.9; O2SAT 100
--- NOTE | 2021-07-26 03:47 | PC.NURSE ---
Patient has remained controlled A-fib on telemetry. Patient has ambulated in the room independently. Patient has rested fair this RN's shift. No acute events have occurred thus far.
[2021-07-26 04:00] VITALS: BP 120/78; PULSE 71; PULSE 80; RESP 16; TEMP 36.6; O2SAT 96
[2021-07-26 04:44] VITALS: BMI 29.4
[2021-07-26 06:24] VITALS: PULSE 107; PULSE 91; O2SAT 98
[2021-07-26 06:41] LABS: Anion Gap 10.1 mEq/L (5-15); Blood Urea Nitrogen 17 mg/dl (9-20); Calcium 8.6 mg/dl (8.4-10.2); Carbon Dioxide 28 mmol/L (22.0-30.0); Chloride 99 mmol/L (98-107); Creatinine Clearance Estimated 104 mL/min (50-200); Estimated Glomerular Filt Rate 69 ml/min (>60); GFR (African American) 84 ML/MIN (>60); Glucose 91 mg/dl (74-100); Potassium 4.1 mmoL/L (3.5-5.1); Sodium 133 mmol/L (136-145)
[2021-07-26 08:00] VITALS: BP 140/82; PULSE 68; RESP 16; TEMP 37; O2SAT 99
--- NOTE | 2021-07-26 08:17 | HMH.ACPN2 ---
<Ana Rosa Floyd - Last Filed: 07/26/21 08:17> Internal Medicine - PN: Subj *Date: 07/26/21 *Time: 08:17 Interval history: Patient is feeling better today. Slept 5 hours last night. Ate all of his breakfast. Denies any pain. Exam Vital signs and Labs for Last 24 Hours: Temp Pulse Resp BP Pulse Ox 97.8 F 91 H 16 120/78 98 07/26/21 04:00 07/26/21 06:24 07/26/21 04:00 07/26/21 04:00 07/26/21 06:24 Laboratory Results - last 24 hr 07/26/21 05:56: Sodium 133 L, Potassium 4.1, Chloride 99, Carbon Dioxide 28, Anion Gap 10.1, BUN 17, Creatinine 1.10, Estimated Creat Clear 104, Estimated GFR 69, Est GFR ( Amer) 84, Glucose 91, Calcium 8.6 I & O for Last 24 hours: Intake & Output 07/23/21 07/24/21 07/25/21 07/26/21 11:59 11:59 11:59 11:59 Intake Total 120 / 120 840 / 840 960 / 960 Output Total 1850 / 1850 140 / 140 1150 / 1150 Balance -1730 / -1730 700 / 700 -190 / -190 Weight 224 lb 216 lb 4.8 oz 216 lb 4.728 oz 217 lb 2 oz - Constitutional no acute distress - *Routine Respiratory Exam Present: CTA bilaterally - *Routine Cardiovascular Exam Present: irregularly irregular (rate 110 on monitor) - *Routine Abdominal Exam Present: soft, normoactive bowel sounds. Absent: tenderness - *Routine Extremities Exam Present: edema (less lower extremity edema). Absent: cyanosis, clubbing - *Routine Skin Exam Present: warm. Absent: rash - *Routine Neurological Exam Present: alert, oriented X3 Assessment and Plan (1) Hypertensive urgency Status: Acute Category: Medical Code(s): I16.0 - Hypertensive urgency (2) Atrial fibrillation with rapid ventricular response Status: Acute Category: Medical Code(s): I48.91 - Unspecified atrial fibrillation (3) Alcohol abuse Status: Chronic Category: Social Hx Code(s): F10.10 - Alcohol abuse, uncomplicated (4) Tobacco abuse Status: Chronic Category: Medical Code(s): Z72.0 - Tobacco use (5) Hypertension Status: Chronic Category: Medical Code(s): I10 - Essential (primary) hypertension (6) CHF (congestive heart failure) Status: Acute Category: Medical Code(s): I50.9 - Heart failure, unspecified (7) Hypothyroidism Status: Chronic Category: Medical Code(s): E03.9 - Hypothyroidism, unspecified (8) Alcohol withdrawal Status: Acute Qualifiers: Complication of substance-induced condition: uncomplicated Qualified Code(s): F10.230 - Alcohol dependence with withdrawal, uncomplicated Category: Medical Code(s): F10.239 - Alcohol dependence with withdrawal, unspecified (9) Cirrhosis, alcoholic Status: Acute Category: Medical Code(s): K70.30 - Alcoholic cirrhosis of liver without ascites - Assessment and plan all Dx Assessment and Plan for all problems:: Patient is back in afib this am with a rate of 110. His BP has improved with the decrease in BP medication. He is stable to discharge home today and will f/u with Dr. Felix and cardiology. <Casey Felix - Last Filed: 07/26/21 13:09> Internal Medicine - PN: Subj *Date: 07/26/21 *Time: 13:04 Exam Vital signs and Labs for Last 24 Hours: Temp Pulse Resp BP Pulse Ox 98.6 F 68 16 140/82 99 07/26/21 08:00 07/26/21 08:00 07/26/21 08:00 07/26/21 08:00 07/26/21 08:00 Laboratory Results - last 24 hr 07/26/21 05:56: Sodium 133 L, Potassium 4.1, Chloride 99, Carbon Dioxide 28, Anion Gap 10.1, BUN 17, Creatinine 1.10, Estimated Creat Clear 104, Estimated GFR 69, Est GFR ( Amer) 84, Glucose 91, Calcium 8.6 I & O for Last 24 hours: Intake & Output 07/24/21 07/25/21 07/26/21 07/27/21 11:59 11:59 11:59 11:59 Intake Total 120 / 120 840 / 840 1440 / 1440 Output Total 1850 / 1850 140 / 140 1150 / 1150 Balance -1730 / -1730 700 / 700 290 / 290 Weight 216 lb 4.8 oz 216 lb 4.728 oz 217 lb 2 oz Assessment and Plan (1) Hypertensive urgency Status: Acute Category: Medical Code(
--- NOTE | 2021-07-29 22:17 | HMH.DCSUM ---
General - General Admission date:: 07/23/21 <Casey Felix - 08/29/21 22:30> 07/23/21 <Ana Rosa Floyd - 07/29/21 22:25> Discharge date: 07/26/21 <Ana Rosa Floyd - 07/29/21 22:25> HPI HPI: Mr. Richardson is a 56-year-old male with a history of hypertension, hypothyroidism, GERD, anxiety, insomnia, alcohol and tobacco abuse, CHF, paroxysmal atrial fib who was seen in the cardiology office today and was found to have a rapid heart rate and was sent to the emergency room. Patient at this time had a routine cardiology visit as referred on 07/18/2021 for atrial fib when being seen in the office of [facility] for irregular heart beat with RVR. Ventricular rate was 130. On this date he refused admission and was to continue with his metoprolol 100 mg twice daily. Lasix 40 mg was refilled but patient states he had not had time to pick this up. In the emergency room patient was noted to have elevated blood pressure at 171/131 and 161/126 with a heart rate of 162 and 154 and 127. He was given a 500 mL bolus of fluids, 1 mg of Ativan p.o., and 10 mg of metoprolol total. In addition he received labetalol total of 20 mg IV. Laboratory data revealed a BNP of 8110 with an alkaline phosphatase elevated at 328 and bilirubin elevated at 1.9. Electrolytes revealed a low sodium at 134 potassium of 3.9. Renal function was good with a BUN of 13 and creatinine 0.9. Alcohol level was less than 10. At the time of this exam patient's heart rate is 120-150 and he is in and out of atrial fibrillation.Blood pressure is 161/119. Patient denies chest pain and states he is somewhat periodically short of breath. He states the edema in his legs is better. <Ana Rosa Floyd - 07/29/21 22:25> Hospital Course Hospital Course: The patient was admitted and started on alcohol withdrawal protocol. He was given 40 mg of IV Lasix and an echocardiogram was ordered. Cardiology was consulted. Due to his alcoholism, an ultrasound of the abdomen was ordered and he was started on Protonix for prophylaxis. On the evening of 07/24/2021 he did get up at 1 point and slid to the floor scraping his back and hurting his tailbone. He had received 50 mg of IV labetalol during the night for his atrial fibrillation with rapid ventricular response. His blood pressure did begin improving. His liver functions improved as well. He was started on duo nebs. His abdominal ultrasound showed cirrhosis of the liver along with ascites and gallbladder wall thickening. He was started on spironolactone. He remained in rapid A. fib despite resuming his home metoprolol and IV fluids as well as the labetalol. He was started on a Cardizem drip. Eliquis was also initiated. After he was started on the Cardizem drip, he converted to normal sinus rhythm with a rate in the 60s. He was started on diltiazem 240 mg extended release and the drip was weaned. He was also continued on metoprolol 100 mg twice daily. His echo returned showing an EF of 55%. There was mild left ventricular hypertrophy, moderately enlarged right atrium and right ventricle, and elevated right ventricular systolic pressure 40 mmHg. There was also a small pericardial effusion. He became somewhat hypotensive with the addition of the new medications and his lisinopril was discontinued. His renal function and electrolytes stabilized. By 07/26/2021, he was feeling better and had finally slept. He was eating well. He did go back into A. fib with a rate of 110. His blood pressure improved with a decrease in blood pressure medication. It was felt he was stable to be discharged home and will follow up with Dr. Felix in 5 days and cardiology in 2 weeks. <Ana Rosa Floyd - 07/29/21 22:25> Objective Vital signs: Temp Pulse Resp BP Pulse Ox 98.6 F 68 16 140/82 99 07/26/21 08:00 07/26/21 08:00 07/26/21 08:00 07/26/21 08:00 07/26/21 08:00 <Casey Felix - 08/29/21 22:30> Temp Pulse Resp BP
== END 2021-07-26 09:45 | disposition home or self-care (01) | DRG 309 ==
LOC: ER 10:48 → 2ND 07-24 02:06
PROVIDERS: Nurse Practitioner Family; Admitting Provider Family Medicine; Emergency Provider Student in an Organized Health Care Education/Training Program; PCP Family Medicine; Visit Provider Family Medicine
DX: I48.0 Paroxysmal atrial fibrillation (principal); F10.239 Alcohol dependence with withdrawal, unspecified; E03.9 Hypothyroidism, unspecified; Z20.822 Contact with and (suspected) exposure to COVID-19; F41.9 Anxiety disorder, unspecified; K21.9 Gastro-esophageal reflux disease without esophagitis; F17.210 Nicotine dependence, cigarettes, uncomplicated; I16.0 Hypertensive urgency; I11.0 Hypertensive heart disease with heart failure; I50.9 Heart failure, unspecified; I27.81 Cor pulmonale (chronic); K70.30 Alcoholic cirrhosis of liver without ascites; I95.2 Hypotension due to drugs; T46.4X5A Adverse effect of angiotensin-converting-enzyme inhibitors, initial encounter
CPT/HCPCS: 36415; 71045; 76700; 80048; 80053; 82140; 83735; 83880; 84100; 84443; 84484; 85025; 85610; 85730; 93005; 93306; 94640; 99291; C9803; U0003; U0005

== ENCOUNTER 2021-08-24 15:41 | Inpatient (IN) | payer BC, SELFPAY ==
[2021-08-24] VITALS (9 sets, daily range): BP systolic 79–94; BP diastolic 49–67; PULSE 61–124; RESP 12–24; TEMP 36.6–36.9; O2SAT 96–100; BMI 23.6; BMI 24.4
--- NOTE | 2021-08-24 16:09 | ECG_ITS ---
APPROVED REPORT Exam: Resting ECG HR:87 bpm ECG Measurements Heart Rate 87 AXES MT 159 P 64 QRSd 149 QRS 82 QT 450 T 60 QTc 495 Conclusion SINUS RHYTHM WITH OCCASIONAL VENTRICULAR PREMATURE COMPLEXES RIGHT BUNDLE BRANCH BLOCK [120+ ms QRS DURATION, UPRIGHT V1, 40+ ms S IN I/aVL/V4/V5/V6] ABNORMAL ECG UNCONFIRMED REPORT Electronically signed by : Sravan Wayne MD 08/25/2021 15:36:04
--- NOTE | 2021-08-24 16:15 | PC.NURSE ---
PT PROVIDED BLANKET AND PILLOW, NO FURTHER NEEDS
--- NOTE | 2021-08-24 16:15 | XR_ITS ---
PROCEDURE INFORMATION: Exam: XR Chest Exam date and time: 08/24/2021 4:25 PM Age: 56 years old Clinical indication: Shortness of breath; Additional info: Hypotension TECHNIQUE: Imaging protocol: Radiologic exam of the chest. Views: 1 view. Two images received, in order to visualize the entire chest. Portable AP exam, 4:27 p.m. COMPARISON: CR XR CHEST PORTABLE 07/23/2021 10:32 AM FINDINGS: Tubes, catheters and devices: Overlying cardiac monitor technician electrodes. Lungs: Slight pulmonary hyperinflation. No consolidation. Chronic calcified left pulmonary granulomas. Pulmonary vessels do not appear congested. Pleural spaces: Unremarkable. No significant pleural effusion. No pneumothorax. Heart/Mediastinum: The cardiac silhouette is normal size. Multiple chronic calcified mediastinal and hilar lymph nodes. Bones/joints: Multiple old rib fracture deformities, bilaterally. Osteopenia. Mild spinal degenerative changes. IMPRESSION: 1. No acute findings or significant change compared with 07/23/2021. 2. Multiple nonemergency and chronic findings as above.
--- NOTE | 2021-08-24 16:17 | PC.NURSE ---
Rounded on patient; patient wanted a warm blanket. Took a warm blanket to patient
--- NOTE | 2021-08-24 16:25 | PC.NURSE ---
MD AWARE OF HYPOTENSION. NS BOLUS INFUSING AT THIS TIME. ORDERS RECEIVED FOR LACTIC, BLOOD CULTURES. CONTINUE TO MONITOR
[2021-08-24 16:26] LABS: Chloride 91 mmol/L (98-107); Potassium 4.8 mmoL/L (3.5-5.1); Sodium 128 mmol/L (136-145)
[2021-08-24 16:28] LABS: Basophils # 0.2 K/mm3 (0-0.2); Basophils % 2.6 % (0.1-2.0); Eosinophils # 0.3 K/mm3 (0.0-0.4); Eosinophils % 3.8 % (0.1-12.0); Hematocrit 54.1 % (42.0-52.0); Hemoglobin 17.4 g/dL (14.1-18.0); Lymphocytes # 1.4 K/mm3 (0.7-4.5); Lymphocytes % 21.3 % (10-50); Mean Corpuscular HGB Conc 32.2 g/dL (31.8-35.4); Mean Corpuscular Hemoglobin 31.7 pg (27.0-31.2); Mean Corpuscular Volume 98.4 fl (80-94); Mean Platelet Volume 9.9 fl (7.4-10.4); Monocytes # 0.5 K/mm3 (0.1-1.0); Neutrophils # 4.4 K/mm3 (1.8-7.8); Neutrophils % 65.3 % (37.0-80.0); Platelet Count 274 K/mm3 (142-424); White Blood Count 6.7 K/mm3 (4.8-10.8)
--- NOTE | 2021-08-24 16:28 | PC.NURSE ---
LAB NOTIFIED OF BLOOD DRAW
[2021-08-24 16:29] LABS: Anion Gap 26.8 mEq/L (5-15); Blood Urea Nitrogen 62 mg/dl (9-20); Carbon Dioxide 15 mmol/L (22.0-30.0); Creatinine Clearance Estimated 15 mL/min (50-200); Estimated Glomerular Filt Rate 10 ml/min (>60); GFR (African American) 12 ML/MIN (>60)
[2021-08-24 16:30] LABS: Calcium 10.3 mg/dl (8.4-10.2); Glucose 120 mg/dl (74-100)
--- NOTE | 2021-08-24 16:34 | PC.NURSE ---
CRITICAL CREATININE 6.10, R/V AND NAME R/V RESULTS PER AJIT IN LAB. REPORTED TO ED MD. NO NEW ORDERS AT THIS TIME
[2021-08-24 16:48] LABS: Troponin I 0.01 ng/ml (0.00-0.034)
[2021-08-24 17:09] LABS: Lactic Acid 1.4 mmol/L (0.7-2.1)
--- NOTE | 2021-08-24 17:09 | HMH.EDGENADL ---
ED Disposition Clinical Impression: VENKATESH (acute kidney injury), Vomiting and diarrhea Hypotension Qualifiers: Hypotension type: unspecified hypotension type Qualified Code(s): I95.9 - Hypotension, unspecified Disposition: Admitted as Observation Condition on Discharge: Serious Referrals: Ana Rosa Floyd PA [Primary Care Provider] - - Critical Care Critical Care Time: Yes Attestation: On 08/24/21, the high probability of a clinically significant, sudden or life threatening deterioration of the following system(s) required my full and direct attention, intervention and personal management. The time I documented below is in addition to time spent performing reported procedures but includes the following listed in this critical care notation. Total Critical Care Time: 30 Vital system(s) involved:: Circulatory Failure, Renal Failure My critical care processes included: Assessment & monitoring of V/S, Initial and Re-exams, Data Review/Interpretation, Coordinating Care, Medication Orders and management, Documentation Medical Decision Making - Paul Inquiry Pt receiving controlled substance: No Vital Signs: 08/24/21 16:00 08/24/21 16:23 08/24/21 16:30 Pulse Rate 61 85 Pulse Rate [Brachial] 86 Respiratory Rate 20 15 15 Blood Pressure 82/52 L 87/55 L Blood Pressure [Right Arm] 79/49 L Blood Pressure Mean 60 60 Blood Pressure Mean [Right Arm] 59 Blood Pressure Source [Right Arm] Automatic Cuff 02 Sat by Pulse Oximetry 100 99 96 Oxygen Delivery Method Room Air Room Air 08/24/21 17:00 Pulse Rate 86 Pulse Rate [Brachial] Respiratory Rate 16 Blood Pressure 81/54 L Blood Pressure [Right Arm] Blood Pressure Mean 61 Blood Pressure Mean [Right Arm] Blood Pressure Source [Right Arm] 02 Sat by Pulse Oximetry 97 Oxygen Delivery Method Room Air - Lab Data Lab Results 08/24/21 16:00: WBC 6.7, RBC 5.50, Hgb 17.4, Hct 54.1 H, MCV 98.4 H, MCH 31.7 H, MCHC 32.2, RDW 16.0, Plt Count 274, MPV 9.9, Neut % (Auto) 65.3, Lymph % (Auto) 21.3, Douglas % (Auto) 7.0, Eos % (Auto) 3.8, Baso % (Auto) 2.6 H, Neut # (Auto) 4.4, Lymph # (Auto) 1.4, Douglas # (Auto) 0.5, Eos # (Auto) 0.3, Baso # (Auto) 0.2 08/24/21 16:00: Sodium 128 L, Potassium 4.8, Chloride 91 L, Carbon Dioxide 15 L, Anion Gap 26.8 H, BUN 62 H, Creatinine 6.10 H, Estimated Creat Clear 15, Estimated GFR 10 L*, Est GFR ( Amer) 12 L*, Glucose 120 H, Calcium 10.3 H, Troponin I 0.01 08/24/21 16:00: Total Bilirubin 1.4 H, Direct Bilirubin 0.9 H, Conjugated Bilirubin 0.0, Indirect Bilirubin 0.5, Unconjugated Bilirubin 0.5, AST 58, ALT 33, Alkaline Phosphatase 252 H, Total Protein 9.1 H D, Albumin 5.0 08/24/21 16:43: Lactate 1.4 Result diagrams: 08/24/21 16:00 08/24/21 16:00 Orders (Tests/Meds): ED MEDICATIONS Generic Name Dose Route Start Last Admin Trade Name Freq PRN Reason Stop Dose Admin Sodium Chloride 1,000 mls @ 999 mls/hr 08/24/21 16:15 08/24/21 16:17 Sod Chlor 0.9% 1000ml Bag IV 08/24/21 17:15 999 mls/hr .Q1H1M RYNA Administration Sodium Chloride 1,000 mls @ 999 mls/hr 08/24/21 17:15 08/24/21 17:08 Sod Chlor 0.9% 1000ml Bag IV 08/24/21 18:15 999 mls/hr .Q1H1M RYAN Administration Sodium Chloride 10 ml 08/24/21 16:15 Sodium Chloride 0.9% 10ml Flush Syringe IV 09/23/21 16:14 NEEDED PRN Maintain IV Site ORDERS Category Date Time Status Diarrhea 6-11 Panel, Cdiff PCR Stat Lab 08/24/21 17:22 Ordered Troponin I Q3H Lab 08/24/21 19:30 Ordered Troponin I Q3H Lab 08/24/21 22:30 Ordered Urinalysis and Microscopic Stat Lab 08/24/21 17:32 Ordered Blood Culture Stat Micro 08/24/21 16:43 Received - ECG Data Tracing #1 EKG interpreted by Seth Santiago MD: Rhythm: sinus Rate: 87 [place]: normal Ectopy: Premature ventricular contractions Conduction: Right bundle branch block ST Segment Changes: none T Wave Changes: none Q Waves: none No evidence of acute ischemia or injury - Phy
[2021-08-24 17:10] LABS: Alanine Aminotransferase 33 U/L (12-78); Aspartate Amino Transferase 58 U/L (17-59); Bilirubin,Unconjugated 0.5 mg/dL (0.0-1.1)
[2021-08-24 17:11] LABS: Alkaline Phosphatase 252 U/L (38-126); Bilirubin,Direct 0.9 mg/dl (0.0-0.4); Bilirubin,Indirect 0.5 mg/dL (0.0-0.9); Bilirubin,Total 1.4 mg/dl (0.2-1.3); Total Protein,Serum 9.1 g/dl (6.3-8.2)
--- NOTE | 2021-08-24 17:13 | PC.NURSE ---
ED MD AT BEDSIDE
--- NOTE | 2021-08-24 17:22 | PC.NURSE ---
PT MAY HAVE REGULAR DIET PER MD, DIETARY NOTIFIED. WILL BRING TRAY
--- NOTE | 2021-08-24 17:43 | PC.NURSE ---
pt ambulatory to bathroom
--- NOTE | 2021-08-24 17:46 | PC.NURSE ---
DALLIN VELAZCO SPEAKING WITH DR. MURRAY
--- NOTE | 2021-08-24 17:51 | PC.NURSE ---
STOOL SPECIMEN COLLECTED AND SENT TO LAB
--- NOTE | 2021-08-24 17:59 | PC.NURSE ---
PT WAS TRYING TO EAT WAS UNABLE TO TOLERATE PT VOMITED ZOFRAN ORDERED
[2021-08-24 18:04] LABS: Adenovirus F 40/41, stool Not Detected (NotDetected); Astrovirus Not Detected (NotDetected); Campylobacter Not Detected (NotDetected); Clostridium Difficile A/B, PCR Not Detected (NotDetected); Cryptosporidium Not Detected (NotDetected); Cyclospora Cayetanesis Not Detected (NotDetected); Entamoeba histolytica Not Detected (NotDetected); Enteroaggregative E coli Not Detected (NotDetected); Enterotoxigenic E coli Not Detected (NotDetected); Giardia lamblia Not Detected (NotDetected); Norovirus Not Detected (NotDetected); Plesimonas Shigalloides, PCR Not Detected (NotDetected); Rotavirus A Not Detected (NotDetected); Salmonella, PCR Not Detected (NotDetected); Sapovirus Not Detected (NotDetected); Shiga-like toxin E coli Not Detected (NotDetected); Shigella Enterovasive E coli Not Detected (NotDetected); Vibrio Cholerae Not Detected (NotDetected); Vibrio, PCR Not Detected (NotDetected); Yersinia Entercolitica, PCR Not Detected (NotDetected)
[2021-08-24 18:12] LABS: Coronavirus 19, PCR Not Detected (NotDetected); Influenza A, PCR Not Detected (NotDetected); Influenza B, PCR Not Detected (NotDetected)
--- NOTE | 2021-08-24 18:17 | PC.NURSE ---
Called house for admission. She said she would call back
--- NOTE | 2021-08-24 18:29 | PC.NURSE ---
quality assurance supervisor has been called about admission.
--- NOTE | 2021-08-24 19:50 | PC.NURSE ---
patient up to floor via wheelchair @ this time.
[2021-08-24 21:54] LABS: Enteropathogenic E coli Detected (NotDetected)
--- NOTE | 2021-08-24 22:46 | PC.NURSE ---
2100- pageclarke Bridges (nutrition specialist for [facility]) regarding patient home meds. No response thus far. 0- page Yuliana regarding critical stool positive for enteropathogenic ecoli. No return call thus far.
[2021-08-25] VITALS (7 sets, daily range): BP systolic 92–109; BP diastolic 40–81; PULSE 60–100; RESP 16–20; TEMP 36.4–36.6; O2SAT 95–99; BMI 24.3
--- NOTE | 2021-08-25 | ECG_ITS ---
APPROVED REPORT Exam: Resting ECG HR:92 bpm ECG Measurements Heart Rate 92 AXES GA 182 P 68 QRSd 146 QRS 88 QT 419 T 70 QTc 468 Conclusion SINUS RHYTHM WITH OCCASIONAL VENTRICULAR PREMATURE COMPLEXES RIGHT BUNDLE BRANCH BLOCK [120+ ms QRS DURATION, UPRIGHT V1, 40+ ms S IN I/aVL/V4/V5/V6] MODERATE T-WAVE ABNORMALITY, CONSIDER ANTEROLATERAL ISCHEMIA [-0.1+ mV T-WAVE IN V3-V6] ABNORMAL ECG UNCONFIRMED REPORT Electronically signed by : Sravan Wayne MD 08/27/2021 21:47:54
[2021-08-25 04:04] LABS: Microscopic, Urine URINE MICROSCOPIC (MICROSCOPIC)
[2021-08-25 04:21] LABS: Appearance,Urine CLEAR (Clear); Blood, Urine TRACE-L (Negative); Color,Urine DK YELLOW (Yellow); Glucose,Urine (UA) TRACE (Negative); Ketones,Urine TRACE (Negative); Leukocyte Esterase,Urine Negative (Negative); Nitrate,Urine Negative (Negative); PH,Urine 5.5 (5.0-8.5); Protein,Urine 1+ (Negative); Specific Gravity, Urine >= 1.030 (1.005-1.030); Urobilinogen,Urine 0.2 EU/dl (0.2)
[2021-08-25 04:28] LABS: Bilirubin,Urine Negative (Negative)
[2021-08-25 04:29] LABS: Amorphous Sediment,Urine Trace /lpf; Mucus,Urine 1+ /lpf; Squamous Epithelial Cell,Urine Occasional #/hpf (0-5)
--- NOTE | 2021-08-25 04:42 | PC.NURSE ---
Addendum entered by Radha Howell RN 08/25/21 06:29: 3 bowl movements noted this am. Original Note: Patient admitted to floor throughout night. Patient states he does feel better and less lightheaded/ dizzy. However patient has had a couple episode of emesis medicated patient per mar for nausea. Patient states he hasn't had a bowl movement this shift. Patients B/p much improved since transferred to floor.
[2021-08-25 07:32] LABS: Chloride 98 mmol/L (98-107); Sodium 133 mmol/L (136-145)
[2021-08-25 07:35] LABS: Blood Urea Nitrogen 62 mg/dl (9-20); Carbon Dioxide 20 mmol/L (22.0-30.0); Creatinine Clearance Estimated 19 mL/min (50-200); Estimated Glomerular Filt Rate 12 ml/min (>60); GFR (African American) 15 ML/MIN (>60)
[2021-08-25 07:36] LABS: Calcium 9.2 mg/dl (8.4-10.2); Glucose 104 mg/dl (74-100)
--- NOTE | 2021-08-25 08:50 | P.CONPHA_ITS ---
[facility] Pharmacy VTE Monitoring - Patient Demographics Admission date: 08/25/21 Report Date: 08/25/21 Time: 08:50 Allergies/Adverse Reactions: Patient Allergies hydrochlorothiazide Adverse Reaction (Unknown, Verified 08/13/21 09:54) Other Height: 1.83 m Weight: 81.647 kg Patient Problems: Current Active Problems VENKATESH (acute kidney injury) (Acute) Hypotension (Acute) Vomiting and diarrhea (Acute) - VTE Risk Labs: VTE Related Lab Results Hgb 17.4 g/dL (14.1-18.0) 08/24/21 16:00 Hct 54.1 % (42.0-52.0) H 08/24/21 16:00 Plt Count 274 K/mm3 (142-424) 08/24/21 16:00 BUN 62 mg/dl (9-20) H 08/25/21 06:26 Creatinine 4.90 mg/dl (0.66-1.25) H 08/25/21 06:26 Estimated Creat Clear 19 mL/min (50-200) 08/25/21 06:26 Was VTE Risk Assessment Performed: Yes VTE Score: 5 VTE Risk Level: Low Risk Clinical Trial Participant: No - Prophylaxis VTE Prophylaxis Ordered?: Yes Types of VTE Prophylaxis: TEDS Knee High
--- NOTE | 2021-08-25 08:57 | HMH.PHAINT ---
home medication list verified using list from outpatient pharmacy
--- NOTE | 2021-08-25 09:54 | HMH.HP ---
*Admission Date: 08/25/21 *Chief complaint: weakness *History of present illness: Alonso is a 56-year-old white male with a history of hypertension, hypothyroidism, alcoholic cirrhosis, chronic atrial fibrillation, COPD, and CHF who states he began feeling sick at work on Friday evening with vomiting and diarrhea. He became weak, lightheaded, and felt like he was going to pass out. He had to leave work early. He persisted with watery diarrhea and weakness to the point he could hardly stand. He presented to the office of A yesterday with these complaints. In the office he was found to be hypotensive and tachycardic. He was transported to the ER for further evaluation. In the ER, he was found to be in acute renal failure with a creatinine greater than 6 (please refer to ER note for further details). He was treated with IV fluids and blood pressure responded and he has been subsequently admitted for further evaluation. Of note, he was apparently still taking Lasix in addition to his Bumex and spironolactone. His Lasix had previously been discontinued after his last hospitalization. Overnight his stool culture returned showing EPEC. Subjectively he feels somewhat better. Blood pressure has slightly improved but remains low. He has been up to the bathroom and denies feeling dizzy or lightheaded. He still has diarrhea. He has been able to tolerate some liquids. Denies abdominal pain. No blood in the stool. [facility] History Medical History: Reports:: Atrial Fibrillation, Congestive Heart Failure, Chronic Obstructive Pulmonary Disease (COPD), Hypertension, Palpitations Denies:: Cancer, Diabetes Mellitus Type 1, Diabetes Mellitus Type 2, Home Oxygen, Internal Pacemaker, MRSA *Have you ever received a pneumonia vaccine?: No *Have you received a flu vaccine this season?: No Other Medical History: Reports: Anemia, Hypothyroidism, Other (Alcoholic cirrhosis) Other Surgeries: Yes: Cardiac Surgery (ablation), Other (Lumbar disc surgery). 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) Housing: house Household Members: significant other *Travel in the last 8 weeks: None Family Hx:: Hypertension, Stroke Review of Systems - Constitutional Reports fatigue, Reports malaise, Denies fever(s) - Eyes Reports blind spots - ENT Reports headache(s), Denies abnormal hearing, Denies difficulty swallowing - *Cardiovascular Denies chest pain, Denies shortness of breath, Denies generalized swelling - *Respiratory Denies chest congestion, Denies shortness of breath - *Gastrointestinal Reports other (See HPI), Denies abdominal pain, Denies coffee ground vomit - *Genitourinary Reports other (Decreased urine output) - *Musculoskeletal Reports abnormal walking, Reports muscle weakness - Integumentary/Breasts Denies change in skin color, Denies rash - *Neurologic Reports unsteadiness, Reports dizziness, Denies confusion, Denies numbness - Psychiatric Denies behavioral changes, Denies panic attacks - Endocrine Denies cold intolerance, Denies heat intolerance - Hematologic/Lymphatic Denies easy bruising - Allergic/Immunologic Denies itchy eyes Meds Home Medications Medication Instructions Recorded Confirmed Type Omeprazole [Omeprazole 20mg 20 mg PO DAILY 02/14/20 08/24/21 History Capsule] Levothyroxine Sodium 88 mcg PO DAILY 07/23/21 08/24/21 History [Levothyroxine 88mcg (0.088mg) Tab] Sertraline HCl 100 mg PO DAILY 07/23/21 08/24/21 History Trazodone HCl 100 mg PO HS 07/23/21 08/24/21 History albuterol sulfate 90 mcg/actuation 2 puff IH Q6H g 07/23/21 08/24/21 History aerosol inhaler furosemide 40 mg tablet 40 mg PO DAILY tab 08/09/21
--- NOTE | 2021-08-25 17:36 | PC.NURSE ---
pt has ambulated independently in room through out the shift. He denies any symptoms of withdrawal. CIWA -. has had no episodes of vomiting that have been reported. Will continue to monitor
[2021-08-26] VITALS: BP 124/84; PULSE 73; RESP 17; O2SAT 97
[2021-08-26 04:00] VITALS: BP 97/66; PULSE 96; RESP 18; TEMP 36.4; O2SAT 97
--- NOTE | 2021-08-26 05:33 | PC.NURSE ---
Addendum entered by Zandra Fonseca RN 08/26/21 05:42: Monitoring CIWA. See intervention for scores. Original Note: Around 0100 - pt called out with c/o L arm pain and chest pain. Vital signs and EKG obtained. EKG read by ED MD - NO acute changes or stemi. Notified Dr. Bridges. No new orders at this time, medicate per MAR for pain. Medicated per MAY. No complaints since medication administration and pt has been resting well. Pt has been voiding per urinal with good uirne output. IV infusing per order. Call light in reach. No other needs or complaints voiced at this time.
[2021-08-26 07:10] LABS: Basophils # 0.1 K/mm3 (0-0.2); Basophils % 1.7 % (0.1-2.0); Eosinophils # 0.2 K/mm3 (0.0-0.4); Eosinophils % 5.3 % (0.1-12.0); Hematocrit 42.3 % (42.0-52.0); Hemoglobin 13.2 g/dL (14.1-18.0); Lymphocytes # 1.7 K/mm3 (0.7-4.5); Lymphocytes % 39.8 % (10-50); Mean Corpuscular HGB Conc 31.1 g/dL (31.8-35.4); Mean Corpuscular Hemoglobin 31.2 pg (27.0-31.2); Mean Corpuscular Volume 100.3 fl (80-94); Mean Platelet Volume 9.5 fl (7.4-10.4); Monocytes # 0.4 K/mm3 (0.1-1.0); Monocytes % 10.5 % (1.7-9.3); Neutrophils # 1.8 K/mm3 (1.8-7.8); Neutrophils % 42.7 % (37.0-80.0); Platelet Count 195 K/mm3 (142-424); Red Blood Count 4.22 M/mm3 (4.60-6.20); Red Cell Distribution Width 16.3 % (11.5-17.5); White Blood Count 4.2 K/mm3 (4.8-10.8)
[2021-08-26 07:13] LABS: Chloride 108 mmol/L (98-107); Potassium 4.6 mmoL/L (3.5-5.1); Sodium 135 mmol/L (136-145)
[2021-08-26 07:16] LABS: Anion Gap 11.6 mEq/L (5-15); Blood Urea Nitrogen 51 mg/dl (9-20); Calcium 9.4 mg/dl (8.4-10.2); Carbon Dioxide 20 mmol/L (22.0-30.0); Creatinine Clearance Estimated 43 mL/min (50-200); Estimated Glomerular Filt Rate 31 ml/min (>60); GFR (African American) 38 ML/MIN (>60); Glucose 95 mg/dl (74-100)
[2021-08-26 08:00] VITALS: BP 127/90; PULSE 98; RESP 20; TEMP 36.7; O2SAT 96
--- NOTE | 2021-08-26 09:21 | P.PN_ITS ---
Internal Medicine - PN: Subj *Date: 08/26/21 *Time: 09:21 Interval history: Subjectively feeling better. No diarrheal stools through the night. No nausea or abdominal pain. He is tolerating his diet. Renal function continues to improve. No signs of alcohol withdrawal. Exam Vital signs and Labs for Last 24 Hours: Temp Pulse Resp BP Pulse Ox 98.0 F 98 H 20 127/90 96 08/26/21 08:00 08/26/21 08:00 08/26/21 08:00 08/26/21 08:00 08/26/21 08:00 Laboratory Results - last 24 hr 08/26/21 06:54: WBC 4.2 L D, RBC 4.22 L, Hgb 13.2 L, Hct 42.3, MCV 100.3 H, MCH 31.2, MCHC 31.1 L, RDW 16.3, Plt Count 195 D, MPV 9.5, Neut % (Auto) 42.7, Lymph % (Auto) 39.8, Harrison % (Auto) 10.5 H, Eos % (Auto) 5.3, Baso % (Auto) 1.7, Neut # (Auto) 1.8, Lymph # (Auto) 1.7, Harrison # (Auto) 0.4, Eos # (Auto) 0.2, Baso # (Auto) 0.1 08/26/21 06:54: Sodium 135 L, Potassium 4.6, Chloride 108 H, Carbon Dioxide 20 L , Anion Gap 11.6, BUN 51 H, Creatinine 2.20 H D, Estimated Creat Clear 43, Estimated GFR 31 L, Est GFR ( Amer) 38 L D, Glucose 95, Calcium 9.4 I & O for Last 24 hours: Intake & Output 08/23/21 08/24/21 08/25/21 08/26/21 11:59 11:59 11:59 11:59 Intake Total 240 / 240 2760 / 2760 Output Total 310 / 310 1999 / 1999 Balance -70 / -70 760 / 760 Weight 180 lb 0.013 oz Narrative: Alert and oriented. Chest with coarse breath sounds, generally diminished. Heart is regular. Abdomen soft, nondistended, and nontender. Extremities with no edema. Assessment and Plan (1) VENKATESH (acute kidney injury) Status: Acute Category: Medical Code(s): N17.9 - Acute kidney failure, unspecified (2) Enterocolitis Status: Acute Category: Medical Code(s): K52.9 - Noninfective gastroenteritis and colitis, unspecified (3) Hypotension Status: Acute Qualifiers: Hypotension type: unspecified hypotension type Qualified Code(s): I95.9 - Hypotension, unspecified Category: Medical Code(s): I95.9 - Hypotension, unspecified (4) Cirrhosis, alcoholic Status: Acute Category: Medical Code(s): K70.30 - Alcoholic cirrhosis of liver without ascites (5) Alcohol abuse Status: Chronic Category: Social Hx Code(s): F10.10 - Alcohol abuse, uncomplicated (6) Hypertension Status: Chronic Qualifiers: Hypertension type: unspecified Qualified Code(s): I10 - Essential (primary) hypertension Category: Medical Code(s): I10 - Essential (primary) hypertension (7) Hypothyroidism Status: Chronic Category: Medical Code(s): E03.9 - Hypothyroidism, unspecified (8) Tobacco abuse Status: Chronic Category: Medical Code(s): Z72.0 - Tobacco use (9) COPD (chronic obstructive pulmonary disease) Status: Acute Category: Medical Code(s): J44.9 - Chronic obstructive pulmonary disease, unspecified - Assessment and plan all Dx Assessment and Plan for all problems:: Blood pressure, urine output, and renal function improved. Continue IV fluids. Activity as tolerated. Probable discharge tomorrow.
[2021-08-26 12:00] VITALS: BP 119/76; PULSE 95; RESP 16; TEMP 36.5; O2SAT 96
[2021-08-26 16:00] VITALS: BP 138/94; PULSE 90; RESP 18; TEMP 36.7; O2SAT 100
[2021-08-26 20:00] VITALS: BP 166/110; PULSE 91; RESP 16; TEMP 37.1; O2SAT 98
[2021-08-27] VITALS: BP 151/100; PULSE 90; RESP 18; TEMP 36.4; O2SAT 98
--- NOTE | 2021-08-27 05:32 | PC.NURSE ---
Pt had high blood pressure at beginning of shift. Dr. Bridges notified and restarted pts diltiazem. Medicated per MAY - BP improved. Pt has had no complaints this shift. IVF infusing per order. Voiding per urinal with good urine output. Call light in reach.
[2021-08-27 06:10] LABS: Chloride 107 mmol/L (98-107); Potassium 5.4 mmoL/L (3.5-5.1); Sodium 138 mmol/L (136-145)
[2021-08-27 06:13] LABS: Anion Gap 12.4 mEq/L (5-15); Blood Urea Nitrogen 36 mg/dl (9-20); Calcium 9.8 mg/dl (8.4-10.2); Carbon Dioxide 24 mmol/L (22.0-30.0); Creatinine Clearance Estimated 68 mL/min (50-200); Estimated Glomerular Filt Rate 52 ml/min (>60); GFR (African American) 63 ML/MIN (>60); Glucose 116 mg/dl (74-100)
[2021-08-27 08:00] VITALS: BP 133/65; PULSE 145; RESP 18; TEMP 36.9; O2SAT 94
--- NOTE | 2021-08-27 08:48 | HMH.ACPN2 ---
<Joan Bae - Last Filed: 08/27/21 08:48> Internal Medicine - PN: Subj *Date: 08/27/21 *Time: 08:48 Interval history: Patient states he feels well today. He did not sleep very well during the night. He has paresthesias in the lower legs which keep him awake even at home. He was up at intervals voiding. He denies chest pain and shortness of breath. He states he is ready to go home. Blood chemistries this morning show sodium 138 potassium 5.4. Renal function has improved with a BUN of 36 and creatinine of 1.4. Blood cultures are negative at 48 hours. Exam Vital signs and Labs for Last 24 Hours: Temp Pulse Resp BP Pulse Ox 97.6 F 90 18 151/100 H 98 08/27/21 00:00 08/27/21 00:00 08/27/21 00:00 08/27/21 00:00 08/27/21 00:00 Laboratory Results - last 24 hr 08/27/21 05:33: Sodium 138, Potassium 5.4 H, Chloride 107, Carbon Dioxide 24, Anion Gap 12.4, BUN 36 H D, Creatinine 1.40 H D, Estimated Creat Clear 68, Estimated GFR 52 L, Est GFR ( Amer) 63 D, Glucose 116 H D, Calcium 9.8 I & O for Last 24 hours: Intake & Output 08/24/21 08/25/21 08/26/21 08/27/21 11:59 11:59 11:59 11:59 Intake Total 240 / 240 2760 / 2760 2760 / 2760 Output Total 310 / 310 1999 / 1999 1400 / 1400 Balance -70 / -70 760 / 760 1360 / 1360 Weight 180 lb 0.013 oz Microbiology Reports for the Last 24 Hours: Microbiology 08/24/21 16:43 Blood Blood Culture - Preliminary NO GROWTH AFTER 48 HOURS 08/24/21 16:43 Blood Blood Culture - Preliminary NO GROWTH AFTER 48 HOURS - Constitutional no acute distress - *Routine Respiratory Exam Present: CTA bilaterally (Anteriorly and posteriorly) - *Routine Cardiovascular Exam Present: RRR - *Routine Abdominal Exam Present: soft, normoactive bowel sounds. Absent: tenderness, distended - *Routine Extremities Exam Absent: edema, calf tenderness - *Routine Neurological Exam Present: alert, oriented X3 Assessment and Plan (1) VENKATESH (acute kidney injury) Status: Acute Category: Medical Code(s): N17.9 - Acute kidney failure, unspecified (2) Enterocolitis Status: Acute Category: Medical Code(s): K52.9 - Noninfective gastroenteritis and colitis, unspecified (3) Hypotension Status: Acute Qualifiers: Hypotension type: unspecified hypotension type Qualified Code(s): I95.9 - Hypotension, unspecified Category: Medical Code(s): I95.9 - Hypotension, unspecified (4) Cirrhosis, alcoholic Status: Acute Category: Medical Code(s): K70.30 - Alcoholic cirrhosis of liver without ascites (5) Alcohol abuse Status: Chronic Category: Social Hx Code(s): F10.10 - Alcohol abuse, uncomplicated (6) Hypertension Status: Chronic Qualifiers: Hypertension type: unspecified Qualified Code(s): I10 - Essential (primary) hypertension Category: Medical Code(s): I10 - Essential (primary) hypertension (7) Hypothyroidism Status: Chronic Category: Medical Code(s): E03.9 - Hypothyroidism, unspecified (8) Tobacco abuse Status: Chronic Category: Medical Code(s): Z72.0 - Tobacco use (9) COPD (chronic obstructive pulmonary disease) Status: Acute Category: Medical Code(s): J44.9 - Chronic obstructive pulmonary disease, unspecified - Assessment and plan all Dx Assessment and Plan for all problems:: Patient will be discharged to home today. See discharge orders. <Casey Felix - Last Filed: 08/27/21 21:28> Internal Medicine - PN: Subj *Date: 08/27/21 *Time: 21:26 Exam Vital signs and Labs for Last 24 Hours: Temp Pulse Resp BP Pulse Ox 98.5 F 145 H 18 133/65 94 L 08/27/21 08:00 08/27/21 08:00 08/27/21 08:00 08/27/21 08:00 08/27/21 08:00 Laboratory Results - last 24 hr 08/27/21 05:33: Sodium 138, Potassium 5.4 H, Chloride 107, Carbon Dioxide 24, Anion Gap 12.4, BUN 36 H D, Creatinine 1.40 H D, Estimated Crea
--- NOTE | 2021-08-27 09:19 | HMH.PHAINT ---
DISCHARGE MEDICATION COUNSELING PROVIDED, DISCUSSED STOPPING THE FUROSEMIDE. PATIENT ENDORSED NO QUESTIONS AT THIS TIME.
--- NOTE | 2021-08-27 16:23 | HMH.DCSUM ---
General - General Admission date:: 08/24/21 <Casey Felix - 08/29/21 22:39> 08/24/21 <BaeJoan pena - 08/27/21 16:44> Discharge date: 08/27/21 <Joan Bae - 08/27/21 16:44> HPI HPI: Alonso is a 56-year-old white male with a history of hypertension, hypothyroidism, alcoholic cirrhosis, chronic atrial fibrillation, COPD, and CHF who stated he began feeling sick at work on Friday evening with vomiting and diarrhea. He became weak, lightheaded, and felt like he was going to pass out. He had to leave work early. He persisted with watery diarrhea and weakness to the point he could hardly stand. He presented to the office of A with these complaints. In the office he was found to be hypotensive and tachycardic. He was transported to the ER for further evaluation. In the ER, he was found to be in acute renal failure with a creatinine greater than 6 (please refer to ER note for further details). He was treated with IV fluids and blood pressure responded. He was subsequently admitted for further evaluation. Of note, he was apparently still taking Lasix in addition to his Bumex and spironolactone. His Lasix had previously been discontinued after his last hospitalization. Overnight his stool culture returned showing EPEC. Subjectively he felt somewhat better. Blood pressure slightly improved but remained low. He had been up to the bathroom and denied feeling dizzy or lightheaded. He still had diarrhea. He was able to tolerate some liquids. He denied abdominal painand had no blood in the stool. <Joan Bae - 08/27/21 16:44> Hospital Course Hospital Course: On admission patient was started on IV fluids for his acute kidney injury injury and dehydration due to his diuretics and acute enterocolitis. Diarrhea did resolve snd he was able to tolerate a regular diet. Renal function did continue to improve throughout his stay. Diarrhea panel did show Escherichia coli which resolved with the IV fluids. He did not require antibiotics. He had no signs of alcohol withdrawal. He ambulated in the room and did well. By 08/27/2021 patient stated he felt well. During his stay he did have 1 episode of chest pain with normal EKG. He also described paresthesias in his lower legs. On discharge renal function improved with a BUN of 36 and a creatinine of 1.4. Blood cultures were negative at 48 hours. He was discharged to home in stable and satisfactory condition. Meds as per medication reconciliation sheet. Lasix was discontinued. <KathiaJoan - 08/27/21 16:44> Objective Vital signs: Temp Pulse Resp BP Pulse Ox 98.5 F 145 H 18 133/65 94 L 08/27/21 08:00 08/27/21 08:00 08/27/21 08:00 08/27/21 08:00 08/27/21 08:00 <IsidroCasey Erick - 08/29/21 22:39> Temp Pulse Resp BP Pulse Ox 98.5 F 145 H 18 133/65 94 L 08/27/21 08:00 08/27/21 08:00 08/27/21 08:00 08/27/21 08:00 08/27/21 08:00 <Joan Bae - 08/27/21 16:44> Narrative: Exam Vital signs and Labs for Last 24 Hours: Temp Pulse Resp BP Pulse Ox 97.6 F 90 18 151/100 H 98 08/27/21 00:00 08/27/21 00:00 08/27/21 00:00 08/27/21 00:00 08/27/21 00:00 Laboratory Results - last 24 hr 08/27/21 05:33: Sodium 138, Potassium 5.4 H, Chloride 107, Carbon Dioxide 24, Anion Gap 12.4, BUN 36 H D, Creatinine 1.40 H D, Estimated Creat Clear 68, Estimated GFR 52 L, Est GFR ( Amer) 63 D, Glucose 116 H D, Calcium 9.8 I & O for Last 24 hours: Intake & Output 08/24/21 08/25/21 08/26/21 08/27/21 11:59 11:59 11:59 11:59 Intake Total 240 / 240 2760 / 2760 2760 / 2760 Output Total 310 / 310 1999 / 2000 1400 / 1400 Balance -70 / -70 760 / 760 1360 / 1360 Weight 180 lb 0.013 oz Microbiology Reports for the Last 24 Hours: Microbiology 08/24/21 16:43 Blood Blood Culture - Preliminary NO GROWTH AFTER 48 HOURS 08/24/21 16:43 Blood Blood Culture
== END 2021-08-27 09:39 | disposition home or self-care (01) | DRG 683 ==
LOC: ER 17:50 → 2ND 08-25 03:43
PROVIDERS: Admitting Provider Family Medicine; Emergency Provider Emergency Medicine; PCP Physician Assistant; Visit Provider Family Medicine
DX: N17.9 Acute kidney failure, unspecified (principal); I48.20 Chronic atrial fibrillation, unspecified; K70.30 Alcoholic cirrhosis of liver without ascites; I95.9 Hypotension, unspecified; I48.91 Unspecified atrial fibrillation; I11.0 Hypertensive heart disease with heart failure; I50.9 Heart failure, unspecified; E86.0 Dehydration; J44.9 Chronic obstructive pulmonary disease, unspecified; E03.9 Hypothyroidism, unspecified; F10.10 Alcohol abuse, uncomplicated; T50.2X5A Adverse effect of carbonic-anhydrase inhibitors, benzothiadiazides and other diuretics, initial encounter; F17.210 Nicotine dependence, cigarettes, uncomplicated; K52.9 Noninfective gastroenteritis and colitis, unspecified; Z99.81 Dependence on supplemental oxygen
CPT/HCPCS: 36415; 71045; 80048; 80076; 81001; 83605; 84484; 85025; 87040; 87506; 93005; 99285; C9803; J2405; U0003; U0005

== ENCOUNTER 2021-09-04 11:06 | Inpatient (IN) | payer BC, SELFPAY ==
[2021-09-04] VITALS (13 sets, daily range): BP systolic 75–127; BP diastolic 56–76; PULSE 60–139; RESP 14–20; TEMP 36.3–37.1; O2SAT 94–100; BMI 23.1; BMI 23.3
--- NOTE | 2021-09-04 11:08 | HMH.EDGENADL ---
ED Disposition Clinical Impression: Hyperkalemia Renal failure, acute Qualifiers: Acute renal failure type: unspecified Qualified Code(s): N17.9 - Acute kidney failure, unspecified Disposition: Admitted as Observation Condition on Discharge: Serious - Critical Care Critical Care Time: No Attestation: On , the high probability of a clinically significant, sudden or life threatening deterioration of the following system(s) required my full and direct attention, intervention and personal management. The time I documented below is in addition to time spent performing reported procedures but includes the following listed in this critical care notation. Medical Decision Making - Paul Inquiry Pt receiving controlled substance: No Vital Signs: 09/04/21 11:07 09/04/21 11:42 09/04/21 12:13 Temperature 98.7 F Temperature Source Oral Pulse Rate 60 60 Pulse Rate [Right Radial] 64 Respiratory Rate 18 14 Blood Pressure 75/56 L 89/62 L Blood Pressure [Right Arm] 80/61 L Blood Pressure Mean 60 67 Blood Pressure Mean [Right Arm] 67 Blood Pressure Source [Right Arm] Automatic Cuff Blood Pressure Position [Right Arm] Sitting 02 Sat by Pulse Oximetry 97 99 98 Oxygen Delivery Method Room Air 09/04/21 12:43 09/04/21 13:13 Temperature Temperature Source Pulse Rate 60 Pulse Rate [Right Radial] Respiratory Rate 20 16 Blood Pressure 83/60 L 127/73 Blood Pressure [Right Arm] Blood Pressure Mean 64 79 Blood Pressure Mean [Right Arm] Blood Pressure Source [Right Arm] Blood Pressure Position [Right Arm] 02 Sat by Pulse Oximetry 99 98 Oxygen Delivery Method - Lab Data Lab results reviewed: Yes: I reviewed the patient's lab results. Lab Results 09/04/21 11:28: Sodium 131 L, Potassium 6.1 H*, Chloride 98, Carbon Dioxide 14 L, Anion Gap 25.1 H, BUN 49 H, Creatinine 5.90 H, Estimated GFR 10 L*, Est GFR ( Amer) 12 L*, Glucose 152 H, Calcium 10.3 H, Total Bilirubin 1.0, AST 57, ALT 33, Alkaline Phosphatase 205 H, Total Protein 9.0 H, Albumin 5.0, Globulin 4.0 H, Albumin/Globulin Ratio 1.3, Lipase 211 09/04/21 11:39: WBC 9.3, RBC 5.30, Hgb 16.8, Hct 49.8, MCV 94.0, MCH 31.8 H, MCHC 33.8, RDW 15.3, Plt Count 454 H, MPV 8.0, Neut % (Auto) 71.2, Lymph % (Auto) 19.8, [place] % (Auto) 4.8, Eos % (Auto) 2.9, Baso % (Auto) 1.2, Neut # (Auto) 6.6, Lymph # (Auto) 1.8, [place] # (Auto) 0.5, Eos # (Auto) 0.3, Baso # (Auto) 0.1 Result diagrams: 09/04/21 11:39 09/04/21 11:28 Orders (Tests/Meds): ED MEDICATIONS Generic Name Dose Route Start Last Admin Trade Name Freq PRN Reason Stop Dose Admin Sodium Chloride 1,000 mls @ 999 mls/hr 09/04/21 12:45 09/04/21 12:47 Sod Chlor 0.9% 1000ml Bag IV 09/04/21 13:45 999 mls/hr .Q1H1M RYAN Administration Discontinued Medications Generic Name Dose Route Start Last Admin Trade Name Freq PRN Reason Stop Dose Admin Sodium Chloride 1,000 mls @ 999 mls/hr 09/04/21 11:15 09/04/21 12:08 Sod Chlor 0.9% 1000ml Bag IV 09/04/21 12:15 999 mls/hr .Q1H1M RYAN Administration Ondansetron HCl 4 mg 09/04/21 11:13 09/04/21 12:08 Ondansetron 4mg/2ml Vial IV 09/04/21 11:14 4 mg ONCE ONE Administration Sodium Polystyrene Sulfonate 15 gm 09/04/21 12:06 09/04/21 12:47 Sodium Poly Sulfon 15gm/60ml Oral.Susp PO 09/04/21 12:07 15 gm ONCE ONE Administration ORDERS Category Date Time Status Rapid PCR Covid and Flu A/B Stat Lab 09/04/21 12:21 Received Urinalysis-Acute [Urinalysis and Microscopic] Stat Lab 09/04/21 11:13 Ordered - ECG Data Tracing #1 I reviewed this ECG and interpreted as documented below: Patient is EKG was done at 12:13 PM. It shows atrial fibrillation with a rapid ventricular response of 127 bpm. There is no acute ischemia seen. No peaked T waves at this time. - Physician Consults Physician Consulted: Isidro Time: 12:25 Reason -: Admission Comment/Response: Dr. Felxi has accepted the
--- NOTE | 2021-09-04 11:45 | PC.NURSE ---
Established 20G SL in the right AC and labs were drawn with no complications. Pt given warm blankets and pillow at this time. No other needs.
[2021-09-04 11:47] LABS: Basophils # 0.1 K/mm3 (0-0.2); Basophils % 1.2 % (0.1-2.0); Eosinophils # 0.3 K/mm3 (0.0-0.4); Eosinophils % 2.9 % (0.1-12.0); Hematocrit 49.8 % (42.0-52.0); Hemoglobin 16.8 g/dL (14.1-18.0); Lymphocytes # 1.8 K/mm3 (0.7-4.5); Lymphocytes % 19.8 % (10-50); Mean Corpuscular HGB Conc 33.8 g/dL (31.8-35.4); Mean Corpuscular Hemoglobin 31.8 pg (27.0-31.2); Monocytes # 0.5 K/mm3 (0.1-1.0); Monocytes % 4.8 % (1.7-9.3); Neutrophils # 6.6 K/mm3 (1.8-7.8); Neutrophils % 71.2 % (37.0-80.0); Platelet Count 454 K/mm3 (142-424); Red Cell Distribution Width 15.3 % (11.5-17.5); White Blood Count 9.3 K/mm3 (4.8-10.8)
[2021-09-04 11:52] LABS: Chloride 98 mmol/L (98-107)
[2021-09-04 11:53] LABS: Sodium 131 mmol/L (136-145)
[2021-09-04 11:55] LABS: Alanine Aminotransferase 33 U/L (12-78); Alkaline Phosphatase 205 U/L (38-126); Anion Gap 25.1 mEq/L (5-15); Aspartate Amino Transferase 57 U/L (17-59); Blood Urea Nitrogen 49 mg/dl (9-20); Carbon Dioxide 14 mmol/L (22.0-30.0); Estimated Glomerular Filt Rate 10 ml/min (>60); GFR (African American) 12 ML/MIN (>60); Lipase 211 U/L (23-300)
[2021-09-04 11:56] LABS: Albumin/Globulin Ratio 1.3 (1.1-1.8); Calcium 10.3 mg/dl (8.4-10.2); Glucose 152 mg/dl (74-100)
[2021-09-04 12:01] LABS: Potassium 6.1 mmoL/L (3.5-5.1)
--- NOTE | 2021-09-04 12:10 | ECG_ITS ---
APPROVED REPORT Exam: Resting ECG HR:127 bpm ECG Measurements Heart Rate 127 AXES QRSd 141 QRS 90 QT 349 T 39 QTc 424 Conclusion ATRIAL FIBRILLATION WITH RAPID VENTRICULAR RESPONSE RIGHT BUNDLE BRANCH BLOCK [120+ ms QRS DURATION, UPRIGHT V1, 40+ ms S IN I/aVL/V4/V5/V6] ABNORMAL ECG UNCONFIRMED REPORT Electronically signed by : Sravan Wayne MD 09/06/2021 17:47:57
--- NOTE | 2021-09-04 12:22 | PC.NURSE ---
[facility] for ELIS VELAZCO, speaking now
[2021-09-04 12:42] LABS: Coronavirus 19, PCR Not Detected (NotDetected); Influenza A, PCR Not Detected (NotDetected); Influenza B, PCR Not Detected (NotDetected)
--- NOTE | 2021-09-04 12:51 | PC.NURSE ---
Rounded on pt at this time. Updated on POC and medicated per MAR. No other needs at this time
--- NOTE | 2021-09-04 12:55 | HMH.PHAINT ---
MEDICATION RECONCILIATION COMPLETED ON PATIENT USING EXTERNAL FILL HISTORY FROM PHARMACY. -CONNIE BARRIENTOS, GUILLERMOD
--- NOTE | 2021-09-04 13:23 | PC.NURSE ---
Notified Care management of admission
--- NOTE | 2021-09-04 13:43 | PC.NURSE ---
Care management advises that pt will be admitted under an observation status. made aware.
--- NOTE | 2021-09-04 14:42 | PC.NURSE ---
Report given to Kaci GoldsteinRN
--- NOTE | 2021-09-04 14:56 | P.CONPHA_ITS ---
[facility] Pharmacy VTE Monitoring - Patient Demographics Admission date: 09/04/21 Report Date: 09/04/21 Time: 14:56 Allergies/Adverse Reactions: Patient Allergies hydrochlorothiazide Adverse Reaction (Unknown, Verified 08/13/21 09:54) Other Height: 1.85 m Weight: 79.379 kg Patient Problems: Current Active Problems Renal failure, acute (Acute) Hyperkalemia (Acute) - VTE Risk Labs: VTE Related Lab Results Hgb 16.8 g/dL (14.1-18.0) 09/04/21 11:39 Hct 49.8 % (42.0-52.0) 09/04/21 11:39 Plt Count 454 K/mm3 (142-424) H 09/04/21 11:39 BUN 49 mg/dl (9-20) H 09/04/21 11:28 Creatinine 5.90 mg/dl (0.66-1.25) H 09/04/21 11:28 - Prophylaxis VTE Prophylaxis Ordered?: Yes Types of VTE Prophylaxis: TEDS Knee High Location of Applied Device: Bilateral Lower Extremeties
--- NOTE | 2021-09-04 15:08 | PC.NURSE ---
Pt arrived to the floor at this time
--- NOTE | 2021-09-04 18:18 | HMH.HP ---
*Admission Date: 09/04/21 <Joan Bae - 09/04/21 18:47> *Chief complaint: Nausea vomiting and diarrhea <Joan Bae - 09/04/21 18:47> *History of present illness: Mr. Richardson is a 56-year-old male with a history of hypertension, hypothyroidism, GERD, anxiety, insomnia, alcohol and tobacco abuse, CHF, paroxysmal atrial fibrillation who presented to the office of [facility] today for follow-up after recent hospitalization at [facility] from 08/24 to 08/27/2021. At that time he was hospitalized for hypotension, enterocolitis, acute kidney injury, COPD, alcoholic cirrhosis. With presentation today in office patient stated he felt dehydrated. He has been unable to eat and drink but felt that he did retain his medication. His significant other was helping him with his meds. He also demonstrated Altered mental status described recurring diarrhea with nausea and vomiting. He had been unable to walk due to dizziness. He was sent to the emergency room for further evaluation and from there was admitted to [facility]. With evaluation in the emergency room he was found to be hypotensive with a blood pressure as low as 75/56. He received 2 liters of IV fluids along with IV Zofran and 15 g of polystyrene sulfonate. EKG showed atrial fibrillation with a rapid ventricular response at 127 bpm. Laboratory data showed white blood cell count of 9300 with a hemoglobin of 16.8 and hematocrit of 49.8. Electrolytes reveal a sodium of 131 with a potassium of 6.3. BUN is 49 and creatinine is 5.9. Calcium is 10.3. Alkaline phosphatase 207 with normal AST and ALT. COVID test was negative. At the time of this exam patient had received IV fluids at 150 an hour. He felt somewhat better but did not feel like eating any dinner. He was not quite as dizzy when walking to the bathroom. He has shortness of breath with exertion but denies chest pain. Patient does admit to drinking greater than 1/5 of whiskey a day x5 days. According to his significant other he has not has not had a drink for the last 2 days. He has been smoking a pack and a half of cigarettes a day. <Joan Bae - 09/04/21 18:47> [facility] History Medical History: Reports:: Arrhythmia, Atrial Fibrillation, Congestive Heart Failure, Chronic Obstructive Pulmonary Disease (COPD), Hypertension, Palpitations, Supraventricular Tachycardia Denies:: Cancer, Diabetes Mellitus Type 1, Diabetes Mellitus Type 2, Home Oxygen, Internal Pacemaker, MRSA <Joan Bae 09/04/21 18:47> *Have you ever received a pneumonia vaccine?: No <Joan Bae 09/04/21 18:47> *Have you received a flu vaccine this season?: No <Joan Bae 09/04/21 18:47> Other Medical History: Reports: Anemia, Hypothyroidism, Other (Alcoholic cirrhosis) <Joan Bae 09/04/21 18:47> Other Surgeries: Yes: Cardiac Surgery (ablation x 2), Other (Lumbar disc surgery). No: Pacemaker <Joan Bae 09/04/21 18:47> Amputation: No <Joan Bae 09/04/21 18:47> Fractures: No <Joan Bae 09/04/21 18:47> - *Social History Smoking Status: Current every day smoker <Joan Bae 09/04/21 18:47> Tobacco Type: cigarettes <Joan Bae 09/04/21 18:47> # Packs/Day (cigarettes): 1 <Joan Bae 09/04/21 18:47> Alcohol Intake: current <Joan Bae 09/04/21 18:47> Alcohol Intake Frequency:: 3 or more drinks per day (Patient states he has been drinking 1/5 of whiskey daily since discharge for 5 days) <Joan Bae 09/04/21 18:47> *Occupational Status:: other <Joan Bae 09/04/21 18:47> Housing: other <Joan Bae 09/04/21 18:47> Household Members: significant other <Joan Bae 09/04/21 18:47> *Travel in the last 8 weeks: None <Joan Bae 09/04/21 18:47> Family Hx:: Hypertension, Stroke <Joan Bae 09/04/21 18:47> Review of Systems - Constitutional Reports lack of energy, Denies fever(s) <Joan Bae 09/04/21 18:47> - Eyes Denies change
--- NOTE | 2021-09-04 18:41 | PC.NURSE ---
PT IS ALERT AND ORIENTED X4. AMBULATING TO BATHROOM INDEPENDENTLY. BLOOD PRESSURES HAVE BEEN A LITTLE SOFT THIS SHIFT AND HEART HIS HEART RATE WAS RUNNING FROM 120-140. UNCONTROLLED A-FIB ON TELE. DR. MCKINNEY WAS MADE AWARE AND MEDS WERE ORDERED AND GIVEN PER MAR. NO C/O CHEST PAIN OR SHORTNESS OF BREATH. PRN TUMS WERE ALSO GIVEN PER MAR.
--- NOTE | 2021-09-04 21:08 | PC.NURSE ---
pt rounded on at 2019, pt stated he might want a snack later, but didnt want one right now. will continue to check on him throughout the night.
[2021-09-05] VITALS (11 sets, daily range): BP systolic 85–106; BP diastolic 53–72; PULSE 74–90; RESP 16–18; TEMP 36.4–36.9; O2SAT 91–100; BMI 24.4
--- NOTE | 2021-09-05 04:06 | PC.NURSE ---
pt has rested well this shift, CIWA scores have been 0-1, telemetry has shown NSR to controlled a fib, HR 72-87, has been hypotensive this shift with SBP 85-95 but remains asymptomatic
[2021-09-05 07:26] LABS: Anion Gap 19.4 mEq/L (5-15); Blood Urea Nitrogen 53 mg/dl (9-20); Calcium 8.7 mg/dl (8.4-10.2); Carbon Dioxide 14 mmol/L (22.0-30.0); Chloride 104 mmol/L (98-107); Creatinine Clearance Estimated 16 mL/min (50-200); Estimated Glomerular Filt Rate 9 ml/min (>60); GFR (African American) 11 ML/MIN (>60); Glucose 97 mg/dl (74-100); Potassium 5.4 mmoL/L (3.5-5.1); Sodium 132 mmol/L (136-145)
--- NOTE | 2021-09-05 07:40 | PC.NURSE ---
Paged Dr. Felix @ this time in re to critical creatinine of 6.2. Awaiting cb at this time. [id number].
--- NOTE | 2021-09-05 08:09 | HMH.ACPN2 ---
<Ana Rosa Floyd - Last Filed: 09/05/21 08:09> Internal Medicine - PN: Subj *Date: 09/05/21 *Time: 08:09 Interval history: Patient states he feels a little bit better this morning. He has not vomited since he left the emergency room. He has been able to keep down liquids and some solids. Exam Vital signs and Labs for Last 24 Hours: Temp Pulse Resp BP Pulse Ox 97.5 F L 80 18 85/64 L 99 09/05/21 03:47 09/05/21 04:00 09/05/21 03:47 09/05/21 03:47 09/05/21 03:47 Laboratory Results - last 24 hr 09/04/21 11:28: Sodium 131 L, Potassium 6.1 H*, Chloride 98, Carbon Dioxide 14 L, Anion Gap 25.1 H, BUN 49 H, Creatinine 5.90 H, Estimated GFR 10 L*, Est GFR ( Amer) 12 L*, Glucose 152 H, Calcium 10.3 H, Total Bilirubin 1.0, AST 57, ALT 33, Alkaline Phosphatase 205 H, Total Protein 9.0 H, Albumin 5.0, Globulin 4.0 H, Albumin/Globulin Ratio 1.3, Lipase 211 09/04/21 11:39: WBC 9.3, RBC 5.30, Hgb 16.8, Hct 49.8, MCV 94.0, MCH 31.8 H, MCHC 33.8, RDW 15.3, Plt Count 454 H, MPV 8.0, Neut % (Auto) 71.2, Lymph % (Auto) 19.8, [place] % (Auto) 4.8, Eos % (Auto) 2.9, Baso % (Auto) 1.2, Neut # (Auto) 6.6, Lymph # (Auto) 1.8, [place] # (Auto) 0.5, Eos # (Auto) 0.3, Baso # (Auto) 0.1 09/04/21 12:21: SARS-CoV-2 (PCR) Not detected, Influenza A Untype (PCR) Not detected, Influenza Type B (PCR) Not detected 09/05/21 06:41: Sodium 132 L, Potassium 5.4 H, Chloride 104, Carbon Dioxide 14 L, Anion Gap 19.4 H, BUN 53 H, Creatinine 6.20 H, Estimated Creat Clear 16, Estimated GFR 9 L*, Est GFR ( Amer) 11 L*, Glucose 97 D, Calcium 8.7 I & O for Last 24 hours: Intake & Output 09/02/21 09/03/21 09/04/21 09/05/21 11:59 11:59 11:59 11:59 Intake Total 2352 / 2352 Balance 2351 / 2352 Weight 175 lb 184 lb 3 oz - Constitutional no acute distress - *Routine Respiratory Exam Present: CTA bilaterally - *Routine Cardiovascular Exam Present: irregularly irregular - *Routine Abdominal Exam Present: soft, normoactive bowel sounds. Absent: tenderness - *Routine Extremities Exam Absent: cyanosis, clubbing, edema - *Routine Skin Exam Present: warm. Absent: rash - *Routine Neurological Exam Present: alert, oriented X3 Assessment and Plan (1) Renal failure, acute Status: Acute Qualifiers: Acute renal failure type: unspecified Qualified Code(s): N17.9 - Acute kidney failure, unspecified Category: Medical Code(s): N17.9 - Acute kidney failure, unspecified (2) Hyperkalemia Status: Acute Category: Medical Code(s): E87.5 - Hyperkalemia (3) Atrial fibrillation with rapid ventricular response Status: Acute Category: Medical Code(s): I48.91 - Unspecified atrial fibrillation (4) COPD (chronic obstructive pulmonary disease) Status: Acute Category: Medical Code(s): J44.9 - Chronic obstructive pulmonary disease, unspecified (5) Cirrhosis, alcoholic Status: Acute Category: Medical Code(s): K70.30 - Alcoholic cirrhosis of liver without ascites (6) Enterocolitis Status: Acute Category: Medical Code(s): K52.9 - Noninfective gastroenteritis and colitis, unspecified (7) Hypotension Status: Acute Qualifiers: Hypotension type: unspecified hypotension type Qualified Code(s): I95.9 - Hypotension, unspecified Category: Medical Code(s): I95.9 - Hypotension, unspecified (8) Alcohol abuse Status: Chronic Category: Social Hx Code(s): F10.10 - Alcohol abuse, uncomplicated - Assessment and plan all Dx Assessment and Plan for all problems:: Potassium and sodium have improved. Renal function has worsened. Will discuss further care with Dr. Felix. <Casey Felix - Last Filed: 09/05/21 09:30> Internal Medicine - PN: Subj *Date: 09/05/21 *Time: 09:28 Exam Vital signs and Labs for Last 24 Hours: Temp Pulse Resp BP Pulse Ox 97.7 F 90 17 89/53 L 100 09/05/21 08:00 09/05/21 08:00 09/05/21 08:00 09/05/21 08:00 09/05/21 08:00 Labor
--- NOTE | 2021-09-05 08:59 | PC.NURSE ---
Godwin ROSALES,WELDER [employer]TER HELPER AWARE OF CREATININE OF 6.1. NNO, STATED MD WAS AWARE WELL.
--- NOTE | 2021-09-05 18:24 | PC.NURSE ---
PT IS ALERT AND ORIENTED X4. CIWA'S HAVE BEEN 0-1. ONLY COMPLAINT WAS A HEADACHE. MEDICATED PER MAR. PT HAS AMBULATED IN HIS ROOM TODAY. IV FLUIDS INFUSING PER MAR.
[2021-09-06] VITALS (7 sets, daily range): BP systolic 108–151; BP diastolic 61–83; PULSE 70–94; RESP 16–20; TEMP 36.3–36.9; O2SAT 91–100; BMI 25.1
--- NOTE | 2021-09-06 04:56 | PC.NURSE ---
A&OX4. TOLERATING RA WELL. HAS HAD NO NEEDS OR C/O THUS FAR. HAS SLEPT MAJORITY OF SHIFT. CIWA SCORES HAVE BEEN 0 T/O SHIFT. VSS, WILL CONTINUE TO MONITOR.
[2021-09-06 07:38] LABS: Basophils # 0.1 K/mm3 (0-0.2); Basophils % 1.6 % (0.1-2.0); Eosinophils # 0.2 K/mm3 (0.0-0.4); Eosinophils % 3.7 % (0.1-12.0); Hematocrit 38.3 % (42.0-52.0); Hemoglobin 12.7 g/dL (14.1-18.0); Lymphocytes # 1.9 K/mm3 (0.7-4.5); Lymphocytes % 36.9 % (10-50); Mean Corpuscular Hemoglobin 30.9 pg (27.0-31.2); Mean Corpuscular Volume 93.6 fl (80-94); Mean Platelet Volume 7.6 fl (7.4-10.4); Monocytes # 0.5 K/mm3 (0.1-1.0); Neutrophils # 2.6 K/mm3 (1.8-7.8); Neutrophils % 48.8 % (37.0-80.0); Platelet Count 271 K/mm3 (142-424); Red Blood Count 4.09 M/mm3 (4.60-6.20); Red Cell Distribution Width 15.5 % (11.5-17.5); White Blood Count 5.2 K/mm3 (4.8-10.8)
[2021-09-06 07:47] LABS: Alanine Aminotransferase 21 U/L (12-78); Albumin Level 3.5 g/dl (3.5-5.0); Albumin/Globulin Ratio 1.2 (1.1-1.8); Alkaline Phosphatase 150 U/L (38-126); Aspartate Amino Transferase 40 U/L (17-59); Bilirubin,Total 0.2 mg/dl (0.2-1.3); Blood Urea Nitrogen 55 mg/dl (9-20); Calcium 8.7 mg/dl (8.4-10.2); Carbon Dioxide 14 mmol/L (22.0-30.0); Chloride 110 mmol/L (98-107); Creatinine Clearance Estimated 22 mL/min (50-200); Estimated Glomerular Filt Rate 13 ml/min (>60); GFR (African American) 16 ML/MIN (>60); Globulin 2.9 g/dL (1.3-3.2); Glucose 95 mg/dl (74-100); Sodium 136 mmol/L (136-145); Total Protein,Serum 6.4 g/dl (6.3-8.2)
--- NOTE | 2021-09-06 08:38 | HMH.ACPN2 ---
<Ana Rosa Floyd - Last Filed: 09/06/21 08:38> Internal Medicine - PN: Subj *Date: 09/06/21 *Time: 08:38 Interval history: Patient states he is feeling better today. He denies any pain. He states he slept better last night and has been eating and drinking normally. He has been urinating quite often. Exam Vital signs and Labs for Last 24 Hours: Temp Pulse Resp BP Pulse Ox 97.7 F 70 16 108/64 L 100 09/06/21 03:36 09/06/21 04:00 09/06/21 03:36 09/06/21 03:36 09/06/21 03:36 Laboratory Results - last 24 hr 09/06/21 07:05: WBC 5.2 D, RBC 4.09 L, Hgb 12.7 L, Hct 38.3 L, MCV 93.6, MCH 30.9, MCHC 33.0, RDW 15.5, Plt Count 271 D, MPV 7.6, Neut % (Auto) 48.8, Lymph % (Auto) 36.9, [place] % (Auto) 9.0, Eos % (Auto) 3.7, Baso % (Auto) 1.6, Neut # (Auto) 2.6, Lymph # (Auto) 1.9, [place] # (Auto) 0.5, Eos # (Auto) 0.2, Baso # (Auto) 0.1 09/06/21 07:05: Sodium 136, Potassium 6.0 H, Chloride 110 H, Carbon Dioxide 14 L, Anion Gap 18.0 H, BUN 55 H, Creatinine 4.60 H D, Estimated Creat Clear 22, Estimated GFR 13 L*, Est GFR ( Amer) 16 L* D, Glucose 95, Calcium 8.7, Total Bilirubin 0.2, AST 40 D, ALT 21 D, Alkaline Phosphatase 150 H, Total Protein 6.4 D, Albumin 3.5, Globulin 2.9, Albumin/Globulin Ratio 1.2 I & O for Last 24 hours: Intake & Output 09/03/21 09/04/21 09/05/21 09/06/21 11:59 11:59 11:59 11:59 Intake Total 2712 / 2712 4057 / 4057 Output Total 2840 / 2840 Balance 271 / 2712 1217 / 1217 Weight 175 lb 184 lb 3 oz 189 lb 7.995 oz - Constitutional no acute distress - *Routine Respiratory Exam Present: CTA bilaterally - *Routine Cardiovascular Exam Present: irregularly irregular - *Routine Abdominal Exam Present: soft, normoactive bowel sounds. Absent: tenderness - *Routine Extremities Exam Absent: cyanosis, clubbing, edema - *Routine Skin Exam Present: warm. Absent: rash - *Routine Neurological Exam Present: alert, oriented X3 Assessment and Plan (1) Renal failure, acute Status: Acute Qualifiers: Acute renal failure type: unspecified Qualified Code(s): N17.9 - Acute kidney failure, unspecified Category: Medical Code(s): N17.9 - Acute kidney failure, unspecified (2) Hyperkalemia Status: Acute Category: Medical Code(s): E87.5 - Hyperkalemia (3) Atrial fibrillation with rapid ventricular response Status: Acute Category: Medical Code(s): I48.91 - Unspecified atrial fibrillation (4) COPD (chronic obstructive pulmonary disease) Status: Acute Category: Medical Code(s): J44.9 - Chronic obstructive pulmonary disease, unspecified (5) Cirrhosis, alcoholic Status: Acute Category: Medical Code(s): K70.30 - Alcoholic cirrhosis of liver without ascites (6) Enterocolitis Status: Acute Category: Medical Code(s): K52.9 - Noninfective gastroenteritis and colitis, unspecified (7) Hypotension Status: Acute Qualifiers: Hypotension type: unspecified hypotension type Qualified Code(s): I95.9 - Hypotension, unspecified Category: Medical Code(s): I95.9 - Hypotension, unspecified (8) Alcohol abuse Status: Chronic Category: Social Hx Code(s): F10.10 - Alcohol abuse, uncomplicated - Assessment and plan all Dx Assessment and Plan for all problems:: We will start on some Kayexalate for hyperkalemia. Renal function is improving with fluids. We will continue to monitor. <Casey Felix - Last Filed: 09/06/21 17:07> Internal Medicine - PN: Subj *Date: 09/06/21 *Time: 17:06 Interval history: Patient seen and examined. Concur with above. Creatinine improved but K+ has increased to 6. Will repeat dose of Kayexalate and continue IVF. Exam Vital signs and Labs for Last 24 Hours: Temp Pulse Resp BP Pulse Ox 97.9 F 87 16 118/71 92 L 09/06/21 12:00 09/06/21 16:00 09/06/21 12:00 09/06/21 12:00 09/06/21 12:00 Laboratory Results - last 24 hr 09/06/21 07:05: WBC 5.2 D, RBC 4.09 L,
--- NOTE | 2021-09-06 10:34 | DIET.NUTRFU ---
Provided and reviewed low sodium diet along with handouts on cirrhosis and protein needs. Patient seemed receptive. Reviewed dinner last and breakfast this with good intake and reported the low salt was okay
[2021-09-07] VITALS: BP 129/74; PULSE 94; PULSE 95; RESP 16; TEMP 36.6; O2SAT 97
[2021-09-07 04:00] VITALS: BP 136/86; PULSE 83; PULSE 91; RESP 16; TEMP 36.4; O2SAT 98
[2021-09-07 05:00] VITALS: BMI 26.2
--- NOTE | 2021-09-07 05:27 | PC.NURSE ---
CIWA scores have been 0 throughout shift. Patient tolerating RA. VSS. Patient has had adequate output this shift. No concerns voiced thus far.
[2021-09-07 07:31] LABS: Anion Gap 14.2 mEq/L (5-15); Blood Urea Nitrogen 47 mg/dl (9-20); Carbon Dioxide 16 mmol/L (22.0-30.0); Chloride 113 mmol/L (98-107); Creatinine Clearance Estimated 35 mL/min (50-200); Estimated Glomerular Filt Rate 22 ml/min (>60); GFR (African American) 26 ML/MIN (>60); Glucose 81 mg/dl (74-100); Potassium 5.2 mmoL/L (3.5-5.1); Sodium 138 mmol/L (136-145)
[2021-09-07 08:00] VITALS: BP 130/89; PULSE 112; PULSE 120; PULSE 92; RESP 24; TEMP 36.4; O2SAT 99
--- NOTE | 2021-09-07 10:07 | HMH.ACPN2 ---
<Ana Rosa Floyd - Last Filed: 09/07/21 10:07> Internal Medicine - PN: Subj *Date: 09/07/21 *Time: 10:07 Interval history: Patient states he feels a little bit better today. He had eaten all of his breakfast. He is drinking and urinating frequently. He did not rest well last night. He denies any pain. Exam Vital signs and Labs for Last 24 Hours: Temp Pulse Resp BP Pulse Ox 97.5 F L 91 H 16 136/86 98 09/07/21 04:00 09/07/21 04:00 09/07/21 04:00 09/07/21 04:00 09/07/21 04:00 Laboratory Results - last 24 hr 09/07/21 06:43: Sodium 138, Potassium 5.2 H, Chloride 113 H, Carbon Dioxide 16 L, Anion Gap 14.2, BUN 47 H, Creatinine 3.00 H D, Estimated Creat Clear 35, Estimated GFR 22 L, Est GFR ( Amer) 26 L D, Glucose 81, Calcium 9.0 I & O for Last 24 hours: Intake & Output 09/04/21 09/05/21 09/06/21 09/07/21 11:59 11:59 11:59 11:59 Intake Total 2712 / 2712 4297 / 4297 4291 / 4291 Output Total 2840 / 2840 4700 / 4700 Balance 2712 / 2712 1457 / 1457 -409 / -409 Weight 175 lb 184 lb 3 oz 189 lb 7.995 oz 197 lb 14.4 oz - Constitutional no acute distress - *Routine Respiratory Exam Present: CTA bilaterally - *Routine Cardiovascular Exam Present: RRR - *Routine Abdominal Exam Present: soft, normoactive bowel sounds. Absent: tenderness - *Routine Extremities Exam Absent: cyanosis, clubbing, edema - *Routine Skin Exam Present: warm. Absent: rash - *Routine Neurological Exam Present: alert, oriented X3 Assessment and Plan (1) Renal failure, acute Status: Acute Qualifiers: Acute renal failure type: unspecified Qualified Code(s): N17.9 - Acute kidney failure, unspecified Category: Medical Code(s): N17.9 - Acute kidney failure, unspecified (2) Hyperkalemia Status: Acute Category: Medical Code(s): E87.5 - Hyperkalemia (3) Atrial fibrillation with rapid ventricular response Status: Acute Category: Medical Code(s): I48.91 - Unspecified atrial fibrillation (4) COPD (chronic obstructive pulmonary disease) Status: Acute Category: Medical Code(s): J44.9 - Chronic obstructive pulmonary disease, unspecified (5) Cirrhosis, alcoholic Status: Acute Category: Medical Code(s): K70.30 - Alcoholic cirrhosis of liver without ascites (6) Enterocolitis Status: Acute Category: Medical Code(s): K52.9 - Noninfective gastroenteritis and colitis, unspecified (7) Hypotension Status: Acute Qualifiers: Hypotension type: unspecified hypotension type Qualified Code(s): I95.9 - Hypotension, unspecified Category: Medical Code(s): I95.9 - Hypotension, unspecified (8) Alcohol abuse Status: Chronic Category: Social Hx Code(s): F10.10 - Alcohol abuse, uncomplicated - Assessment and plan all Dx Assessment and Plan for all problems:: Renal functions continue to improve. Potassium also decreased with the Kayexalate. His GFR is now up to 22. Will discuss further care with Dr. Felix. <Casey Felix - Last Filed: 09/07/21 13:37> Internal Medicine - PN: Subj *Date: 09/07/21 *Time: 13:37 Exam Vital signs and Labs for Last 24 Hours: Temp Pulse Resp BP Pulse Ox 98.1 F 104 H 24 109/79 L 100 09/07/21 12:00 09/07/21 12:00 09/07/21 12:00 09/07/21 12:00 09/07/21 12:00 Laboratory Results - last 24 hr 09/07/21 06:43: Sodium 138, Potassium 5.2 H, Chloride 113 H, Carbon Dioxide 16 L, Anion Gap 14.2, BUN 47 H, Creatinine 3.00 H D, Estimated Creat Clear 35, Estimated GFR 22 L, Est GFR ( Amer) 26 L D, Glucose 81, Calcium 9.0 I & O for Last 24 hours: Intake & Output 09/05/21 09/06/21 09/07/21 09/08/21 11:59 11:59 11:59 11:59 Intake Total 2712 / 2712 4297 / 4297 4531 / 4531 Output Total 2840 / 2840 5700 / 5700 Balance 2712 / 2712 1457 / 1457 -1169 / -1169 Weight 184 lb 3 oz 189 lb 7.995 oz 197 lb 14.4 oz Assessment and Plan (1) Renal failure, acute Status: Acute Qualifiers:
[2021-09-07 12:00] VITALS: BP 109/79; PULSE 100; PULSE 104; RESP 24; TEMP 36.7; O2SAT 100
[2021-09-07 16:00] VITALS: BP 110/67; PULSE 100; PULSE 91; RESP 28; TEMP 36.9; O2SAT 98
--- NOTE | 2021-09-07 17:20 | PC.NURSE ---
Patient has done well this RN's shift. Patient remains in a-fib on telemetry with a BBB. Patient has episodes of increased heart rate but does not sustain, heart rate stays around 80's-100's. Patient has scored below an 8 for 3 consecutive CIWA's and those have been D/C per protocol. Patient continues to void clear, yellow urine per urinal independently. Patient remains on room air.
[2021-09-07 20:00] VITALS: BP 122/72; PULSE 69; PULSE 81; RESP 20; TEMP 37; O2SAT 98
[2021-09-08] VITALS: BP 116/62; PULSE 69; PULSE 70; RESP 20; TEMP 36.6; O2SAT 97
[2021-09-08 04:00] VITALS: BP 145/97; PULSE 100; PULSE 91; RESP 20; TEMP 36.7; O2SAT 98
[2021-09-08 04:39] VITALS: BMI 25.5
--- NOTE | 2021-09-08 04:55 | PC.NURSE ---
No acute changes. Pt has slept well majority of shift. Pt has not voiced any complaints to staff t/o shift. Call light within reach.
[2021-09-08 08:00] VITALS: BP 147/95; PULSE 90; PULSE 94; RESP 22; TEMP 36.6; O2SAT 99
[2021-09-08 08:04] LABS: Anion Gap 12.9 mEq/L (5-15); Blood Urea Nitrogen 39 mg/dl (9-20); Calcium 9.4 mg/dl (8.4-10.2); Carbon Dioxide 21 mmol/L (22.0-30.0); Chloride 110 mmol/L (98-107); Creatinine Clearance Estimated 49 mL/min (50-200); Estimated Glomerular Filt Rate 33 ml/min (>60); GFR (African American) 40 ML/MIN (>60); Glucose 104 mg/dl (74-100); Potassium 5.9 mmoL/L (3.5-5.1); Sodium 138 mmol/L (136-145)
--- NOTE | 2021-09-08 10:42 | P.PN_ITS ---
Internal Medicine - PN: Subj *Date: 09/08/21 *Time: 10:42 Interval history: No new complaints. Still with frequent urination. No diarrhea. Appetite improving. Exam Vital signs and Labs for Last 24 Hours: Temp Pulse Resp BP Pulse Ox 97.9 F 94 H 22 147/95 H 99 09/08/21 08:00 09/08/21 08:00 09/08/21 08:00 09/08/21 08:00 09/08/21 08:00 Laboratory Results - last 24 hr 09/08/21 07:30: Sodium 138, Potassium 5.9 H, Chloride 110 H, Carbon Dioxide 21 L , Anion Gap 12.9, BUN 39 H, Creatinine 2.10 H D, Estimated Creat Clear 49, Estimated GFR 33 L, Est GFR ( Amer) 40 L D, Glucose 104 H, Calcium 9.4 I & O for Last 24 hours: Intake & Output 09/05/21 09/06/21 09/07/21 09/08/21 11:59 11:59 11:59 11:59 Intake Total 2712 / 2712 4297 / 4297 4531 / 4531 210 / 2106 Output Total 2840 / 2840 5700 / 5700 4120 / 4120 Balance 2712 / 2712 1457 / 1457 -1169 / -1169 -2013 / Weight 184 lb 3 oz 189 lb 7.995 oz 197 lb 14.4 oz 193 lb Narrative: Alert and oriented. Chest with coarse breath sounds but otherwise clear. Heart is regular. Abdomen soft and nondistended with no tenderness. Extremities no e gabe. Assessment and Plan (1) Renal failure, acute Status: Acute Qualifiers: Acute renal failure type: unspecified Qualified Code(s): N17.9 - Acute kidney failure, unspecified Category: Medical Code(s): N17.9 - Acute kidney failure, unspecified (2) Hyperkalemia Status: Acute Category: Medical Code(s): E87.5 - Hyperkalemia (3) Atrial fibrillation with rapid ventricular response Status: Acute Category: Medical Code(s): I48.91 - Unspecified atrial fibrillation (4) COPD (chronic obstructive pulmonary disease) Status: Acute Category: Medical Code(s): J44.9 - Chronic obstructive pulmonary disease, unspecified (5) Cirrhosis, alcoholic Status: Acute Category: Medical Code(s): K70.30 - Alcoholic cirrhosis of liver without ascites (6) Enterocolitis Status: Acute Category: Medical Code(s): K52.9 - Noninfective gastroenteritis and colitis, unspecified (7) Hypotension Status: Acute Qualifiers: Hypotension type: unspecified hypotension type Qualified Code(s): I95.9 - Hypotension, unspecified Category: Medical Code(s): I95.9 - Hypotension, unspecified (8) Alcohol abuse Status: Chronic Category: Social Hx Code(s): F10.10 - Alcohol abuse, uncomplicated - Assessment and plan all Dx Assessment and Plan for all problems:: Renal function continues to improve but potassium has increased again. We will repeat dose of Kayexalate today. Continue IV fluids.
[2021-09-08 12:00] VITALS: BP 140/90; PULSE 90; PULSE 95; RESP 24; TEMP 36.8
[2021-09-08 16:00] VITALS: BP 128/78; PULSE 86; RESP 20; TEMP 36.8; O2SAT 100
[2021-09-08 20:00] VITALS: BP 148/91; PULSE 111; PULSE 92; RESP 18; TEMP 36.9; O2SAT 97
[2021-09-09] VITALS: BP 147/92; PULSE 90; PULSE 97; RESP 20; TEMP 37.2; O2SAT 96
[2021-09-09 04:00] VITALS: BP 160/90; PULSE 80; PULSE 92; RESP 22; TEMP 36.9; O2SAT 92
[2021-09-09 04:33] VITALS: BMI 25.6
--- NOTE | 2021-09-09 04:37 | PC.NURSE ---
Pt is A/O x4. Pt has rested well this shift. Pt voiced no c/o of pain. Pt has used urinal independently with 600ml in output thus far in shift. Pt remains on RA and tolerating well.
[2021-09-09 08:00] VITALS: BP 157/95; PULSE 90; PULSE 91; RESP 16; TEMP 36.4; O2SAT 98
[2021-09-09 08:23] LABS: Blood Urea Nitrogen 32 mg/dl (9-20); Calcium 9.5 mg/dl (8.4-10.2); Carbon Dioxide 22 mmol/L (22.0-30.0); Chloride 109 mmol/L (98-107); Creatinine Clearance Estimated 60 mL/min (50-200); Estimated Glomerular Filt Rate 42 ml/min (>60); GFR (African American) 51 ML/MIN (>60); Glucose 71 mg/dl (74-100); Sodium 138 mmol/L (136-145)
--- NOTE | 2021-09-09 09:15 | HMH.ACPN2 ---
Internal Medicine - PN: Subj *Date: 09/09/21 *Time: 09:15 Interval history: He has no new complaints and is feeling well. Blood pressure has been running high. Exam Vital signs and Labs for Last 24 Hours: Temp Pulse Resp BP Pulse Ox 97.5 F L 91 H 16 157/95 H 98 09/09/21 08:00 09/09/21 08:00 09/09/21 08:00 09/09/21 08:00 09/09/21 08:00 Laboratory Results - last 24 hr 09/09/21 07:00: Sodium 138, Potassium 6.0 H, Chloride 109 H, Carbon Dioxide 22, Anion Gap 13.0, BUN 32 H, Creatinine 1.70 H, Estimated Creat Clear 60, Estimated GFR 42 L, Est GFR ( Amer) 51 L D, Glucose 71 L D, Calcium 9.5 I & O for Last 24 hours: Intake & Output 09/06/21 09/07/21 09/08/21 09/09/21 11:59 11:59 11:59 11:59 Intake Total 4297 / 4297 4531 / 4531 2106 / 2106 2257 / 2257 Output Total 2840 / 2840 5700 / 5700 4120 / 4120 3650 / 3650 Balance 1457 / 1457 -1169 / -1169 -2013 / -2014 -1393 / -1393 Weight 189 lb 7.995 oz 197 lb 14.4 oz 193 lb 193 lb 6 oz Narrative: Alert and in no distress. Chest with coarse breath sounds but otherwise clear. Heart is regular. Abdomen soft and nondistended with no tenderness. Extremities no edema. Assessment and Plan (1) Renal failure, acute Status: Acute Qualifiers: Acute renal failure type: unspecified Qualified Code(s): N17.9 - Acute kidney failure, unspecified Category: Medical Code(s): N17.9 - Acute kidney failure, unspecified (2) Hyperkalemia Status: Acute Category: Medical Code(s): E87.5 - Hyperkalemia (3) Atrial fibrillation with rapid ventricular response Status: Acute Category: Medical Code(s): I48.91 - Unspecified atrial fibrillation (4) COPD (chronic obstructive pulmonary disease) Status: Acute Category: Medical Code(s): J44.9 - Chronic obstructive pulmonary disease, unspecified (5) Cirrhosis, alcoholic Status: Acute Category: Medical Code(s): K70.30 - Alcoholic cirrhosis of liver without ascites (6) Enterocolitis Status: Acute Category: Medical Code(s): K52.9 - Noninfective gastroenteritis and colitis, unspecified (7) Hypotension Status: Acute Qualifiers: Hypotension type: unspecified hypotension type Qualified Code(s): I95.9 - Hypotension, unspecified Category: Medical Code(s): I95.9 - Hypotension, unspecified (8) Alcohol abuse Status: Chronic Category: Social Hx Code(s): F10.10 - Alcohol abuse, uncomplicated (9) Hypertension Status: Acute Category: Medical Code(s): I10 - Essential (primary) hypertension - Assessment and plan all Dx Assessment and Plan for all problems:: Repeat Kayexalate today. Check magnesium level. Add chlorthalidone. Possibly discharge home later today.
[2021-09-09 09:27] LABS: Magnesium 1.1 mg/dl (1.6-2.3)
[2021-09-09 12:00] VITALS: BP 140/88; PULSE 150; PULSE 92; RESP 16; TEMP 36.7; O2SAT 100
--- NOTE | 2021-09-09 12:40 | PC.NURSE ---
notified who is on the floor of pt elevated Heart rate. New orders received
--- NOTE | 2021-09-09 14:00 | PC.NURSE ---
in to see pt and is discharging him home with follow up
--- NOTE | 2021-09-09 14:38 | PC.NURSE ---
pts heart rate has decreased with medication administration. he is now being discharged home via private car. took all belongings with him and voiced understanding of all dc education and follow up appts.
--- NOTE | 2021-09-10 13:48 | CARE MANAGER ---
Attempted post-discharge phone interview with patient, no answer. WIll attempt again in the am if no return call.
--- NOTE | 2021-09-10 23:00 | HMH.DCSUM ---
General - General Admission date:: 09/04/21 <Casey Felix - 09/18/21 21:52> 09/04/21 <Ana Rosa Floyd - 09/10/21 23:11> Discharge date: 09/09/21 <Ana Rosa Floyd - 09/10/21 23:11> HPI HPI: Mr. Richardson is a 56-year-old male with a history of hypertension, hypothyroidism, GERD, anxiety, insomnia, alcohol and tobacco abuse, CHF, paroxysmal atrial fibrillation who presented to the [facility] today for follow-up after recent hospitalization at [facility] from 08/24 to 08/27/2021. At that time he was hospitalized for hypotension, enterocolitis, acute kidney injury, COPD, alcoholic cirrhosis. With presentation today in office patient stated he felt dehydrated. He has been unable to eat and drink but felt that he did retain his medication. His significant other was helping him with his meds. He also demonstrated Altered mental status described recurring diarrhea with nausea and vomiting. He had been unable to walk due to dizziness. He was sent to the emergency room for further evaluation and from there was admitted to [facility]. With evaluation in the emergency room he was found to be hypotensive with a blood pressure as low as 75/56. He received 2 liters of IV fluids along with IV Zofran and 15 g of polystyrene sulfonate. EKG showed atrial fibrillation with a rapid ventricular response at 127 bpm. Laboratory data showed white blood cell count of 9300 with a hemoglobin of 16.8 and hematocrit of 49.8. Electrolytes reveal a sodium of 131 with a potassium of 6.3. BUN is 49 and creatinine is 5.9. Calcium is 10.3. Alkaline phosphatase 207 with normal AST and ALT. COVID test was negative. At the time of this exam patient had received IV fluids at 150 an hour. He felt somewhat better but did not feel like eating any dinner. He was not quite as dizzy when walking to the bathroom. He has shortness of breath with exertion but denies chest pain. Patient does admit to drinking greater than 1/5 of whiskey a day x5 days. According to his significant other he has not has not had a drink for the last 2 days. He has been smoking a pack and a half of cigarettes a day. <Ana Rosa Floyd - 09/10/21 23:11> Hospital Course Hospital Course: The patient was started on IV fluids at 150/hr. He received 250 mg of Cardizem p.o. and metoprolol. His blood pressure improved with IV fluids, but he remained in rapid ventricular response. He was therefore resumed on metoprolol and diltiazem. His vomiting stopped and he was able to keep down some liquids. His potassium and sodium improved, but his renal function initially worsened. He was continued on IVF's. He was started on Kayexalate for hyperkalemia. His renal function did begin improving. His potassium improved with the Kayexalate, but then increased again. He had a repeat dose of Kayexalate. By 09/09/2021 he was feeling much better. His blood pressure was actually elevated. Chlorthalidone was added and he had another dose of Kayexalate. His magnesium was found to be low at 1.1. His BUN and creatinine improved to 32 and 1.7. He was stable to be discharged home on magnesium and chlorthalidone and will follow up with Dr. Felix. <Ana Rosa Floyd - 09/10/21 23:11> Objective Vital signs: Temp Pulse Resp BP Pulse Ox 98.1 F 92 H 16 140/88 100 09/09/21 12:00 09/09/21 12:00 09/09/21 12:00 09/09/21 12:00 09/09/21 12:00 <Casey Felix - 09/18/21 21:52> Temp Pulse Resp BP Pulse Ox 98.1 F 92 H 16 140/88 100 09/09/21 12:00 09/09/21 12:00 09/09/21 12:00 09/09/21 12:00 09/09/21 12:00 <Ana Rosa Floyd - 09/10/21 23:11> Narrative: - Constitutional no acute distress - *Routine HEENT Exam Head: Present: normocephalic, atraumatic Eye: Present: PERRL. Absent: conjunctival icterus, scleral injection ENT: Present: mucous membranes moist - *Routine Neck Exam Present: supple. Absen
== END 2021-09-09 14:53 | disposition home or self-care (01) | DRG 684 ==
LOC: ER 12:07 → 2ND 13:43
PROVIDERS: Nurse Practitioner Family; Admitting Provider Family Medicine; Emergency Provider Emergency Medicine; PCP Family Medicine; Visit Provider Family Medicine
DX: N17.9 Acute kidney failure, unspecified; Z79.01 Long term (current) use of anticoagulants; Z79.899 Other long term (current) drug therapy; E03.9 Hypothyroidism, unspecified; I11.0 Hypertensive heart disease with heart failure; I50.9 Heart failure, unspecified; I48.0 Paroxysmal atrial fibrillation; F17.210 Nicotine dependence, cigarettes, uncomplicated; E87.5 Hyperkalemia; J44.9 Chronic obstructive pulmonary disease, unspecified; K70.30 Alcoholic cirrhosis of liver without ascites; K52.9 Noninfective gastroenteritis and colitis, unspecified; I95.9 Hypotension, unspecified; Z20.822 Contact with and (suspected) exposure to COVID-19; F10.10 Alcohol abuse, uncomplicated
CPT/HCPCS: 36415; 80048; 80053; 83690; 83735; 85025; 93005; 99285; C9803; J2405; U0003; U0005

== ENCOUNTER → 2021-10-04 15:44 | Outpatient (CLI) | payer BC, SELFPAY ==
[2021-10-04 16:45] LABS: Basophils # 0.1 K/mm3 (0-0.2); Basophils % 1.4 % (0.1-2.0); Eosinophils # 0.2 K/mm3 (0.0-0.4); Eosinophils % 2.1 % (0.1-12.0); Hematocrit 42.9 % (42.0-52.0); Hemoglobin 13.6 g/dL (14.1-18.0); Lymphocytes # 2.1 K/mm3 (0.7-4.5); Lymphocytes % 28.4 % (10-50); Mean Corpuscular HGB Conc 31.6 g/dL (31.8-35.4); Mean Corpuscular Hemoglobin 31.1 pg (27.0-31.2); Mean Corpuscular Volume 98.3 fl (80-94); Mean Platelet Volume 8.4 fl (7.4-10.4); Monocytes # 0.6 K/mm3 (0.1-1.0); Monocytes % 7.9 % (1.7-9.3); Neutrophils # 4.4 K/mm3 (1.8-7.8); Neutrophils % 60.2 % (37.0-80.0); Platelet Count 357 K/mm3 (142-424); Red Blood Count 4.36 M/mm3 (4.60-6.20); Red Cell Distribution Width 16.6 % (11.5-17.5); White Blood Count 7.2 K/mm3 (4.8-10.8)
[2021-10-04 16:54] LABS: Alanine Aminotransferase 31 U/L (12-78); Albumin Level 4.4 g/dl (3.5-5.0); Albumin/Globulin Ratio 1.5 (1.1-1.8); Alkaline Phosphatase 202 U/L (38-126); Anion Gap 19.8 mEq/L (5-15); Aspartate Amino Transferase 45 U/L (17-59); Bilirubin,Total 0.8 mg/dl (0.2-1.3); Blood Urea Nitrogen 48 mg/dl (9-20); Calcium 9.8 mg/dl (8.4-10.2); Carbon Dioxide 16 mmol/L (22.0-30.0); Chloride 102 mmol/L (98-107); Estimated Glomerular Filt Rate 16 ml/min (>60); GFR (African American) 19 ML/MIN (>60); Globulin 2.9 g/dL (1.3-3.2); Glucose 100 mg/dl (74-100); Magnesium 2.6 mg/dl (1.6-2.3); Potassium 5.8 mmoL/L (3.5-5.1); Sodium 132 mmol/L (136-145); Total Protein,Serum 7.3 g/dl (6.3-8.2)
[2021-10-04 17:03] LABS: NT Pro Brain Natriuretic Pep. 2030 pg/mL (0-125)
== END ==
PROVIDERS: PCP Family Medicine; Visit Provider Physician Assistant
DX: I50.9 Heart failure, unspecified (principal); R19.7 Diarrhea, unspecified; E83.42 Hypomagnesemia
CPT/HCPCS: 36415; 80053; 83735; 83880; 85025

== ENCOUNTER 2021-10-05 12:35 | Observation (INO) | payer BC, SELFPAY ==
--- NOTE | 2021-10-05 12:50 | PC.NURSE ---
pt direct admit from Dr. Felix's office. Pt to room 214. Is A&O. CIWA 0. 20g PIV started RAC. Rickey, CRICKET swab, lactic, and urine sent to lab.
[2021-10-05 12:52] VITALS: BP 117/91; PULSE 117; RESP 18; TEMP 36.7; O2SAT 100; BMI 24.3
[2021-10-05 13:26] LABS: Basophils # 0.1 K/mm3 (0-0.2); Basophils % 1.7 % (0.1-2.0); Eosinophils # 0.2 K/mm3 (0.0-0.4); Eosinophils % 2.9 % (0.1-12.0); Hematocrit 41.1 % (42.0-52.0); Hemoglobin 13.2 g/dL (14.1-18.0); Lymphocytes % 28.7 % (10-50); Mean Corpuscular Hemoglobin 31.6 pg (27.0-31.2); Mean Corpuscular Volume 98.7 fl (80-94); Mean Platelet Volume 8.4 fl (7.4-10.4); Monocytes # 0.5 K/mm3 (0.1-1.0); Monocytes % 7.7 % (1.7-9.3); Neutrophils # 4.1 K/mm3 (1.8-7.8); Platelet Count 316 K/mm3 (142-424); Red Blood Count 4.17 M/mm3 (4.60-6.20); Red Cell Distribution Width 16.5 % (11.5-17.5)
[2021-10-05 13:27] LABS: Alanine Aminotransferase 36 U/L (12-78); Albumin Level 4.3 g/dl (3.5-5.0); Albumin/Globulin Ratio 1.4 (1.1-1.8); Alkaline Phosphatase 185 U/L (38-126); Anion Gap 16.8 mEq/L (5-15); Aspartate Amino Transferase 56 U/L (17-59); Bilirubin,Total 0.6 mg/dl (0.2-1.3); Blood Urea Nitrogen 55 mg/dl (9-20); Calcium 9.2 mg/dl (8.4-10.2); Carbon Dioxide 19 mmol/L (22.0-30.0); Chloride 101 mmol/L (98-107); Creatinine Clearance Estimated 32 mL/min (50-200); Estimated Glomerular Filt Rate 22 ml/min (>60); GFR (African American) 26 ML/MIN (>60); Globulin 3.1 g/dL (1.3-3.2); Glucose 105 mg/dl (74-100); Magnesium 2.6 mg/dl (1.6-2.3); Potassium 4.8 mmoL/L (3.5-5.1); Sodium 132 mmol/L (136-145); Total Protein,Serum 7.4 g/dl (6.3-8.2)
[2021-10-05 13:39] LABS: Phosphorous 5.9 mg/dl (2.5-4.5)
[2021-10-05 13:43] LABS: Coronavirus 19, PCR Not Detected (NotDetected); Influenza A, PCR Not Detected (NotDetected); Influenza B, PCR Not Detected (NotDetected)
[2021-10-05 13:47] LABS: Lactic Acid 0.7 mmol/L (0.7-2.1)
[2021-10-05 13:59] LABS: Ethyl Alcohol < 10 mg/dl (0-10)
--- NOTE | 2021-10-05 15:34 | HMH.HP ---
*Admission Date: 10/05/21 *Chief complaint: nausea, vomiting, dehydration, renal failure *History of present illness: Mr. Richardson is a 56-year-old male who has had multiple admissions in the past few months. He is an alcoholic and initially had atrial fibrillation with rapid ventricular response as well as new onset congestive heart failure. He has had renal failure as well with a creatinine up to 8 in the past. He has also been struggling with vomiting and diarrhea. A past diarrhea panel in August showed E. Coli. He states he followed up with Dr. Felix last week in the office and was given dicyclomine to take for his diarrhea. He was feeling better but he went back to work on Friday and began having diarrhea and took the dicyclomine. He then began vomiting. This continued throughout the rest of the week. He presented to the office yesterday and felt he was dehydrated. He stated his alcohol intake is down to a pint a day. He has been eating, but mainly fast food and pizza. Labs were checked yesterday and his creatinine was found to be 3.9, his potassium was elevated at 5.8, and his GFR was 16. Of note his alkaline phosphatase was also elevated at 202 and his BNP was elevated at 2030. He had previously had a low magnesium, but it was elevated yesterday at 2.6. He was started on Zofran yesterday and called today with his test results. It was decided to admit the patient for IV fluids and a stool panel. Of note, he did complain yesterday of swelling of the right testicle. It was approximately 4 times the size of the other testicle and an ultrasound was ordered and is scheduled for October. [facility] History I have reviewed the patient's past medical history: Yes Medical History: Reports:: Arrhythmia, Atrial Fibrillation, Congestive Heart Failure, Chronic Obstructive Pulmonary Disease (COPD), Hypertension, Palpitations, Supraventricular Tachycardia Denies:: Cancer, Diabetes Mellitus Type 1, Diabetes Mellitus Type 2, Home Oxygen, Internal Pacemaker, MRSA *Have you ever received a pneumonia vaccine?: No *Have you received a flu vaccine this season?: (na) Other Medical History: Reports: Anemia, Hypothyroidism, Other (Alcoholic cirrhosis) Other Surgeries: Yes: Cardiac Surgery (ablation x 2), Other (Lumbar disc surgery). No: Pacemaker Amputation: No Fractures: No - *Social History Last grade of school completed: High school graduate Smoking Status: Current every day smoker Tobacco Type: cigarettes # Packs/Day (cigarettes): 2 Alcohol Intake: current Alcohol Intake Frequency:: 3 or more drinks per day *Occupational Status:: employed Housing: house Household Members: significant other *Travel in the last 8 weeks: None Family Hx:: Stroke Review of Systems - Constitutional Reports fatigue, Reports malaise, Reports weakness, Denies fever(s) - Eyes Denies blurry vision, Denies double vision - ENT Reports nasal congestion, Denies sore throat - *Cardiovascular Denies chest pain, Denies shortness of breath - *Respiratory Denies cough, Denies shortness of breath - *Gastrointestinal Reports loose stools, Reports nausea, Reports vomiting, Denies abdominal pain - *Genitourinary Denies difficulty urinating, Denies painful urination - *Musculoskeletal Denies joint pain - *Neurologic Reports headache(s), Reports dizziness, Reports weakness Meds Home Medications Medication Instructions Recorded Confirmed Type Omeprazole [Omeprazole 20mg 20 mg PO DAILY 02/14/20 09/04/21 History Capsule] Levothyroxine Sodium 88 mcg PO DAILY 07/23/21 09/04/21 History [Levothyroxine 88mcg (0.088mg) Tab] Sertraline HCl 100 mg PO DAILY 07/23/21 09/04/21 History Trazodone HCl 100 mg PO HS 07/23/21 09/04/21 History albuterol sulfate 90 mcg/actuation 2 puff IH Q6HP PRN g 07/23/21 09/04/21 History aerosol inhaler ipratropium 0.5 mg-albuterol 3 mg 3 ml IH QIDP PRN ml 08/13/21 09/04/21 History (2.5 mg base)/3 mL nebulization soln
[2021-10-05 15:46] LABS: Microscopic, Urine URINE MICROSCOPIC (MICROSCOPIC)
[2021-10-05 15:55] LABS: Appearance,Urine CLEAR (Clear); Bilirubin,Urine Negative (Negative); Blood, Urine Negative (Negative); Color,Urine YELLOW (Yellow); Glucose,Urine (UA) 1+ (Negative); Ketones,Urine Negative (Negative); Leukocyte Esterase,Urine Negative (Negative); Nitrate,Urine Negative (Negative); PH,Urine 5.5 (5.0-8.5); Protein,Urine TRACE (Negative); Specific Gravity, Urine 1.025 (1.005-1.030); Urobilinogen,Urine 0.2 EU/dl (0.2)
--- NOTE | 2021-10-05 15:57 | ECG_ITS ---
APPROVED REPORT Exam: Resting ECG HR:109 bpm ECG Measurements Heart Rate 109 AXES LA 262 P 175 QRSd 133 QRS 79 QT 367 T 19 QTc 431 Conclusion Sinus TACHYCARDIA WITH FIRST DEGREE AV BLOCK RIGHT BUNDLE BRANCH BLOCK [120+ ms QRS DURATION, UPRIGHT V1, 40+ ms S IN I/aVL/V4/V5/V6] ABNORMAL ECG UNCONFIRMED REPORT Electronically signed by : Sravan Wayne MD 10/06/2021 09:32:20
[2021-10-05 16:00] VITALS: BP 122/73; PULSE 115; RESP 18; TEMP 36.7; O2SAT 98
[2021-10-05 16:08] LABS: Barbiturates Screen,Urine Negative ng/ml (<200); Benzodiazepines Screen,Urine Negative ng/ml (<200)
[2021-10-05 16:09] LABS: Amphetamine/Metha Screen,Urine Negative ng/ml (<1000)
[2021-10-05 16:10] LABS: Bacteria,Urine 1+ /lpf; Cannabinoid Screen,Urine Negative ng/ml (<50); Cocaine Screen,Urine Negative ng/ml (<300); Hyaline Casts,Urine Occasional #/lpf (0); Mucus,Urine 2+ /lpf; RBC,Urine Occasional #/hpf (0-3)
[2021-10-05 16:11] LABS: Coarse Granular Casts,Urine Occasional #/lpf (0); Methadone Screen,Urine Negative ng/ml (<300); Opiate Screen,Urine Negative ng/ml (<300)
[2021-10-05 16:12] LABS: Phencyclidine Screen,Urine Negative ng/ml (<25)
--- NOTE | 2021-10-05 18:37 | PC.NURSE ---
shift summary: GCS 15. Pt has done well. No signs of alcohol withdrawal. CIWA 0. Up ad jimy. Ambulates in room without assistance. Tolerates a cardiac diet. No n/v/d. Not on tele. On RA.
[2021-10-05 20:00] VITALS: BP 131/72; PULSE 110; RESP 16; TEMP 36.7; O2SAT 97
[2021-10-06 04:00] VITALS: BP 98/58; PULSE 77; RESP 16; TEMP 36.4; O2SAT 100
[2021-10-06 05:00] VITALS: BMI 25.4
--- NOTE | 2021-10-06 06:15 | PC.NURSE ---
No acute change. Pt has not voiced any complaints thus far. Pt tolerating RA well with sats in upper 90s. Pt CIWA remains 0. Pt up ambulating halls at beginning of shift. Call light within reach.
[2021-10-06 07:29] LABS: Basophils # 0.1 K/mm3 (0-0.2); Basophils % 1.5 % (0.1-2.0); Eosinophils # 0.2 K/mm3 (0.0-0.4); Eosinophils % 3.2 % (0.1-12.0); Hematocrit 37.7 % (42.0-52.0); Hemoglobin 11.9 g/dL (14.1-18.0); Lymphocytes # 2.2 K/mm3 (0.7-4.5); Lymphocytes % 41.2 % (10-50); Mean Corpuscular HGB Conc 31.4 g/dL (31.8-35.4); Mean Corpuscular Hemoglobin 31.4 pg (27.0-31.2); Mean Corpuscular Volume 99.8 fl (80-94); Mean Platelet Volume 8.8 fl (7.4-10.4); Monocytes # 0.4 K/mm3 (0.1-1.0); Monocytes % 7.3 % (1.7-9.3); Neutrophils # 2.5 K/mm3 (1.8-7.8); Neutrophils % 46.9 % (37.0-80.0); Platelet Count 279 K/mm3 (142-424); Red Blood Count 3.78 M/mm3 (4.60-6.20); Red Cell Distribution Width 16.7 % (11.5-17.5); White Blood Count 5.4 K/mm3 (4.8-10.8)
[2021-10-06 07:36] LABS: Chloride 108 mmol/L (98-107)
[2021-10-06 07:37] LABS: Potassium 4.5 mmoL/L (3.5-5.1); Sodium 135 mmol/L (136-145)
[2021-10-06 07:39] LABS: Blood Urea Nitrogen 48 mg/dl (9-20); Creatinine Clearance Estimated 52 mL/min (50-200); Estimated Glomerular Filt Rate 37 ml/min (>60); GFR (African American) 45 ML/MIN (>60)
[2021-10-06 07:40] LABS: Alanine Aminotransferase 29 U/L (12-78); Albumin Level 3.8 g/dl (3.5-5.0); Albumin/Globulin Ratio 1.5 (1.1-1.8); Alkaline Phosphatase 146 U/L (38-126); Anion Gap 11.5 mEq/L (5-15); Aspartate Amino Transferase 54 U/L (17-59); Bilirubin,Total 0.2 mg/dl (0.2-1.3); Calcium 8.9 mg/dl (8.4-10.2); Carbon Dioxide 20 mmol/L (22.0-30.0); Globulin 2.6 g/dL (1.3-3.2); Glucose 111 mg/dl (74-100); Total Protein,Serum 6.4 g/dl (6.3-8.2)
[2021-10-06 07:54] LABS: Campylobacter Not Detected (NotDetected); Clostridium Difficile A/B, PCR Not Detected (NotDetected); Cryptosporidium Not Detected (NotDetected); Enteroaggregative E coli Not Detected (NotDetected); Enteropathogenic E coli Not Detected (NotDetected); Enterotoxigenic E coli Not Detected (NotDetected); Plesimonas Shigalloides, PCR Not Detected (NotDetected); Salmonella, PCR Not Detected (NotDetected); Shiga-like toxin E coli Not Detected (NotDetected); Shigella Enterovasive E coli Not Detected (NotDetected); Vibrio Cholerae Not Detected (NotDetected); Vibrio, PCR Not Detected (NotDetected); Yersinia Entercolitica, PCR Not Detected (NotDetected)
[2021-10-06 07:55] LABS: Adenovirus F 40/41, stool Not Detected (NotDetected); Astrovirus Not Detected (NotDetected); Cyclospora Cayetanesis Not Detected (NotDetected); Entamoeba histolytica Not Detected (NotDetected); Giardia lamblia Not Detected (NotDetected); Norovirus Not Detected (NotDetected); Rotavirus A Not Detected (NotDetected); Sapovirus Not Detected (NotDetected)
[2021-10-06 08:00] VITALS: BP 109/71; PULSE 76; RESP 18; TEMP 36.4; O2SAT 100
--- NOTE | 2021-10-06 11:52 | P.CONPHA_ITS ---
[facility] Pharmacy VTE Monitoring - Patient Demographics Admission date: 10/05/21 Report Date: 10/06/21 Time: 11:52 Allergies/Adverse Reactions: Patient Allergies hydrochlorothiazide Adverse Reaction (Unknown, Verified 08/13/21 09:54) Other Height: 1.83 m Weight: 85.36 kg Patient Problems: Current Active Problems Alcohol abuse (Chronic) Tobacco abuse (Chronic) CHF (congestive heart failure) (Chronic) Hypothyroidism (Chronic) Cirrhosis, alcoholic (Chronic) Pulmonary hypertension (Chronic) VENKATESH (acute kidney injury) (Acute) Vomiting and diarrhea (Acute) COPD (chronic obstructive pulmonary disease) (Chronic) Hyperkalemia (Acute) Testicular swelling, right (Acute) - VTE Risk Labs: VTE Related Lab Results Hgb 11.9 g/dL (14.1-18.0) L 10/06/21 07:18 Hct 37.7 % (42.0-52.0) L 10/06/21 07:18 Plt Count 279 K/mm3 (142-424) 10/06/21 07:18 BUN 48 mg/dl (9-20) H 10/06/21 07:18 Creatinine 1.90 mg/dl (0.66-1.25) H D 10/06/21 07:18 Estimated Creat Clear 52 mL/min (50-200) 10/06/21 07:18 Was VTE Risk Assessment Performed: No Clinical Trial Participant: No - Prophylaxis VTE Prophylaxis Ordered?: Yes Types of VTE Prophylaxis: TEDS Knee High Location of Applied Device: Bilateral Lower Extremeties
--- NOTE | 2021-10-06 11:52 | HMH.PHAINT ---
MEDICATION RECONCILIATION COMPLETE USING LIST FROM MOST RECENT CARDIOLOGY OFFICE VISIT AND EXTERNAL PHARMACY FILL HISTORY.
--- NOTE | 2021-10-06 12:45 | HMH.ACPN2 ---
Internal Medicine - PN: Subj *Date: 10/06/21 *Time: 12:45 Interval history: He has remained quite stable overnight. His renal function has improved significantly Laboratory Tests 10/05/21 10/06/21 13:00 07:18 Sodium 132 L 135 L Potassium 4.8 4.5 BUN 55 H 48 H Creatinine 3.00 H D 1.90 H D We discussed discharge and he is comfortable with that. We spent some time discussing his alcoholism. Exam Vital signs and Labs for Last 24 Hours: Temp Pulse Resp BP Pulse Ox 97.6 F 76 18 109/71 L 100 10/06/21 08:00 10/06/21 08:00 10/06/21 08:00 10/06/21 08:00 10/06/21 08:00 Laboratory Results - last 24 hr 10/05/21 13:00: WBC 7.0, RBC 4.17 L, Hgb 13.2 L, Hct 41.1 L, MCV 98.7 H, MCH 31.6 H, MCHC 32.0, RDW 16.5, Plt Count 316, MPV 8.4, Neut % (Auto) 59.0, Lymph % (Auto) 28.7, [place] % (Auto) 7.7, Eos % (Auto) 2.9, Baso % (Auto) 1.7, Neut # (Auto) 4.1, Lymph # (Auto) 2.0, [place] # (Auto) 0.5, Eos # (Auto) 0.2, Baso # (Auto) 0.1 10/05/21 13:00: Sodium 132 L, Potassium 4.8, Chloride 101, Carbon Dioxide 19 L, Anion Gap 16.8 H, BUN 55 H, Creatinine 3.00 H D, Estimated Creat Clear 32, Estimated GFR 22 L, Est GFR ( Amer) 26 L D, Glucose 105 H, Calcium 9.2, Magnesium 2.6 H, Total Bilirubin 0.6, AST 56, ALT 36, Alkaline Phosphatase 185 H, Total Protein 7.4, Albumin 4.3, Globulin 3.1, Albumin/Globulin Ratio 1.4 10/05/21 13:00: Phosphorus 5.9 H 10/05/21 13:00: Plasma/Serum Alcohol < 10 10/05/21 13:30: Lactate 0.7 10/05/21 13:30: SARS-CoV-2 (PCR) Not detected, Influenza A Untype (PCR) Not detected, Influenza Type B (PCR) Not detected 10/05/21 15:39: Urine Color Yellow, Urine Appearance Clear, Urine pH 5.5, Ur Specific [place] 1.025, Urine Protein Trace, Urine Glucose (UA) 1+, Urine Ketones Negative, Urine Blood Negative, Urine Nitrate Negative, Urine Bilirubin Negative, Urine Urobilinogen 0.2, Ur Leukocyte Esterase Negative, Urine RBC Occasional, Urine WBC 5-10, Ur Squamous Epith Cells 3-5, Urine Bacteria 1+, Hyaline Casts Occasional, Coarse Granular Casts Occasional, Urine Mucus 2+ 10/05/21 15:39: Urine Opiates Screen Negative, Urine Methadone Screen Negative, Ur Barbituates Screen Negative, Ur Phencyclidine Scrn Negative, Ur Amphetamines Screen Negative, U Benzodiazepines Scrn Negative, Urine Cocaine Screen Negative, U Marijuana (THC) Screen Negative 10/06/21 07:18: WBC 5.4, RBC 3.78 L, Hgb 11.9 L, Hct 37.7 L, MCV 99.8 H, MCH 31.4 H, MCHC 31.4 L, RDW 16.7, Plt Count 279, MPV 8.8, Neut % (Auto) 46.9, Lymph % (Auto) 41.2, [place] % (Auto) 7.3, Eos % (Auto) 3.2, Baso % (Auto) 1.5, Neut # (Auto) 2.5, Lymph # (Auto) 2.2, [place] # (Auto) 0.4, Eos # (Auto) 0.2, Baso # (Auto) 0.1 10/06/21 07:18: Sodium 135 L, Potassium 4.5, Chloride 108 H, Carbon Dioxide 20 L, Anion Gap 11.5, BUN 48 H, Creatinine 1.90 H D, Estimated Creat Clear 52, Estimated GFR 37 L, Est GFR ( Amer) 45 L D, Glucose 111 H, Calcium 8.9, Total Bilirubin 0.2, AST 54, ALT 29, Alkaline Phosphatase 146 H, Total Protein 6.4, Albumin 3.8 D, Globulin 2.6, Albumin/Globulin Ratio 1.5 I & O for Last 24 hours: Intake & Output 10/04/21 10/05/21 10/06/21 10/07/21 11:59 11:59 11:59 11:59 Intake Total 3355 / 3355 Balance 3355 / 3355 Weight 188 lb 3 oz - Constitutional no acute distress - *Routine HEENT Exam Head: Present: normocephalic Eye: Present: EOMI, PERRL ENT: Present: mucous membranes moist - *Routine Neck Exam Present: supple. Absent: JVD, lymphadenopathy - *Routine Respiratory Exam Present: CTA bilaterally - *Routine Cardiovascular Exam Present: RRR - *Routine Abdominal Exam Present: soft, normoactive bowel sounds. Absent: tenderness - *Routine Exam Comments: He is developing a significant hydrocele on the right. - *Routine Extremities Exam Absent: cyanosis, clubbing, edema - *Routine Skin Exam Present: warm. Absent: rash - *Routine Neurological Exam Present: alert, oriented X3. Absent: altered mental status Assessment an
--- NOTE | 2021-10-06 13:24 | HMH.PHAINT ---
DISCHARGE MEDICATION COUNSELING PROVIDED. DISCUSSED STOPPING THE OMEPRAZOLE AND STARTING OXAZEPAM (TAKE THREE TIMES DAILY NEEDED FOR ANXIETY, MAY CAUSE SEDATION, DIZZINESS, LOW BP, NAUSEA, RECOMMEND STARTING BEFORE BED TO SEE HOW IT IMPACTS YOU, DON'T DRIVE/ OPERATE MACHINERY UNTIL YOU KNOW HOW IT WILL IMPACT YOU). PATIENT ASKED IF IT CAUSES DIARRHEA, WAS ADVISED IT SHOULDN'T BUT COULD CAUSE NAUSEA. PATIENT VERBALIZED NO FURTHER QUESTIONS AT THIS TIME.
--- NOTE | 2021-10-06 13:35 | PC.NURSE ---
Pt has medication at 1011. I have to wait four hours before I am able to let him leave. After 1411 will be the four hours. I will do discharge then.
--- NOTE | 2021-10-08 21:33 | HMH.DCSUM ---
General - General Admission date:: 10/05/21 Discharge date: 10/06/21 HPI HPI: Mr. Richardson is a 56-year-old male who has had multiple admissions in the past few months. He is an alcoholic and initially had atrial fibrillation with rapid ventricular response as well as new onset congestive heart failure. He has had renal failure as well with a creatinine up to 8 in the past. He has also been struggling with vomiting and diarrhea. A past diarrhea panel in August showed E. Coli. He states he followed up with Dr. Felix last week in the office and was given dicyclomine to take for his diarrhea. He was feeling better but he went back to work on Friday and began having diarrhea and took the dicyclomine. He then began vomiting. This continued throughout the rest of the week. He presented to the office yesterday and felt he was dehydrated. He stated his alcohol intake is down to a pint a day. He has been eating, but mainly fast food and pizza. Labs were checked yesterday and his creatinine was found to be 3.9, his potassium was elevated at 5.8, and his GFR was 16. Of note his alkaline phosphatase was also elevated at 202 and his BNP was elevated at 2030. He had previously had a low magnesium, but it was elevated yesterday at 2.6. He was started on Zofran yesterday and called today with his test results. It was decided to admit the patient for IV fluids and a stool panel. Of note, he did complain yesterday of swelling of the right testicle. It was approximately 4 times the size of the other testicle and an ultrasound was ordered and is scheduled for October. Hospital Course Hospital Course: Patient was admitted and started on alcohol withdrawal protocol along with IV fluids. He denies any abdominal pain and a diarrhea panel was ordered. By 10/06/2021, his renal function had improved significantly and his diarrhea panel was negative. Dr. Rosenbaum discussed his alcoholism and and decided to continue oxazepam 3 times daily as needed at discharge. He was stable to discharge and will follow up at [facility]. Objective Vital signs: Temp Pulse Resp BP Pulse Ox 97.6 F 76 18 109/71 L 100 10/06/21 08:00 10/06/21 08:00 10/06/21 08:00 10/06/21 08:00 10/06/21 08:00 Narrative: - Constitutional no acute distress - *Routine HEENT Exam Head: Present: normocephalic Eye: Present: EOMI, PERRL ENT: Present: mucous membranes dry - *Routine Neck Exam Present: supple. Absent: lymphadenopathy - *Routine Respiratory Exam Present: CTA bilaterally - *Routine Cardiovascular Exam Present: RRR - *Routine Abdominal Exam Present: soft, normoactive bowel sounds. Absent: tenderness - *Routine Rectal Exam Rectal:: deferred - *Routine Genitalia Exam Genitalia:: other (Right testicle enlarged, nontender, no masses felt) - *Routine Extremities Exam Absent: cyanosis, clubbing, edema - *Routine Skin Exam Present: warm. Absent: rash - *Routine Neurological Exam Present: alert, oriented X3 Results Labs on day of discharge: Preliminary micro results at discharge 10/05/21 13:55 Blood Culture - Preliminary Blood NO GROWTH AFTER 48 HOURS 10/05/21 13:55 Blood Culture - Preliminary Blood NO GROWTH AFTER 48 HOURS DS: Diagnosis - Discharge Diagnosis (1) Vomiting and diarrhea Status: Acute (2) VENKATESH (acute kidney injury) Status: Acute (3) Hyperkalemia Status: Acute (4) CHF (congestive heart failure) Status: Chronic (5) COPD (chronic obstructive pulmonary disease) Status: Chronic (6) Alcohol abuse Status: Chronic (7) Cirrhosis, alcoholic Status: Chronic (8) Pulmonary hypertension Status: Chronic (9) Hypothyroidism Status: Chronic (10) Tobacco abuse Status: Chronic (11) Testicular swelling, right Status: Acute Discharge Plan - Patient Discharge Instructions ACTIVITY: Limited activity DIET: advance to your usual d
--- NOTE | 2021-10-09 14:44 | CARE MANAGER ---
Contacted patient related to follow up from hospital discharge. 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 He has follow up appointment tomorrow. Reinforced en to citrus picker prescription. Denies any other questions or concerns at this time. HORTENCIA Verduzco
== END 2021-10-06 14:32 | disposition home or self-care (01) ==
PROVIDERS: Physician Assistant; Admitting Provider Family Medicine; PCP Family Medicine; Visit Provider Family Medicine
DX: N17.9 Acute kidney failure, unspecified (principal); I48.91 Unspecified atrial fibrillation; E86.0 Dehydration; I13.0 Hypertensive heart and chronic kidney disease with heart failure and stage 1 through stage 4 chronic kidney disease, or unspecified chronic kidney disease; I50.9 Heart failure, unspecified; J44.9 Chronic obstructive pulmonary disease, unspecified; F17.210 Nicotine dependence, cigarettes, uncomplicated; E03.9 Hypothyroidism, unspecified; K70.30 Alcoholic cirrhosis of liver without ascites; I27.20 Pulmonary hypertension, unspecified; Z79.899 Other long term (current) drug therapy; Z79.01 Long term (current) use of anticoagulants; N50.89 Other specified disorders of the male genital organs; N18.9 Chronic kidney disease, unspecified; E87.5 Hyperkalemia; F10.10 Alcohol abuse, uncomplicated
CPT/HCPCS: 36415; 80053; 80305; 81001; 83605; 83735; 84100; 85025; 87040; 87507; 93005; C9803; G0378; U0003; U0005

== ENCOUNTER → 2021-10-09 13:40 | Outpatient (CLI) | payer BC, SELFPAY ==
--- NOTE | 2021-10-09 13:45 | US_ITS ---
FINAL REPORT CLINICAL HISTORY: ENLARGED TESTICLE FINDINGS: Technique: Ultrasound images of the testicles were obtained. Findings: The testicles are normal in size. No intratesticular mass identified. Arterial flow is identified bilaterally. There are large right and small left hydroceles. There is a 1.8 cm cystic area adjacent to the left testicle. IMPRESSION: No intratesticular mass or evidence of torsion. Cystic area adjacent to the left testicle could represent epididymal cyst or other cyst. Large right and small left hydroceles. Reviewed, Interpreted and Dictated by Giorgio Mason III, MD Transcribed by Mehrdad Jama Authenticated and . [facility]
== END ==
PROVIDERS: PCP Family Medicine; Visit Provider Physician Assistant
DX: N50.811 Right testicular pain (principal); N50.812 Left testicular pain
CPT/HCPCS: 76870

== ENCOUNTER 2023-01-22 00:53 | Emergency (ER) | payer MEDICAID, SELFPAY ==
[2023-01-22] VITALS (19 sets, daily range): BP systolic 82–191; BP diastolic 58–139; PULSE 62–110; RESP 16–20; TEMP 36.4–36.8; O2SAT 90–98; BMI 25.6
--- NOTE | 2023-01-22 00:55 | XR_ITS ---
PROCEDURE INFORMATION: Exam: XR Left Hand Exam date and time: 01/22/2023 12:57 AM Age: 57 years old Clinical indication: Injury or trauma; Other: Partial amputation; Amputation, traumatic; Left ring finger and left little finger; Patient HX: Cut 4th, 5th digit with knife; Additional info: Partial amputation 4/5 TECHNIQUE: Imaging protocol: Radiologic exam of the left hand. Views: 3 or more views. Total images: 3 COMPARISON: No relevant prior studies available. FINDINGS: Bones/joints: Partial amputation deformity 5th finger with displaced transverse fracture through the tuft of the distal phalanx. Acute nondisplaced transverse fracture at the tuft of the distal phalanx 4th finger. Mild osseous demineralization. Severe degenerative change 1st carpometacarpal joint. Soft tissues: Soft tissue injury/laceration distal 4th and 5th fingers. IMPRESSION: 1. Partial amputation distal 5th finger, including acute transverse fracture through the tuft of the distal phalanx. 2. Soft tissue injury / laceration distal 4th finger with acute nondisplaced fracture of the distal tuft.
--- NOTE | 2023-01-22 01:26 | PC.NURSE ---
contacted [facility] spoke with [facility], for consult on L hand.
--- NOTE | 2023-01-22 01:34 | PC.NURSE ---
o/p with at this time.
--- NOTE | 2023-01-22 02:14 | PC.NURSE ---
in room with patient at this time.
--- NOTE | 2023-01-22 03:45 | HMH.EDGENADL ---
Discharge Plan Disposition Patient Disposition: Home, Self-Care Condition: Good Prescriptions Prescriptions: New cephalexin 500 mg capsule 500 mg PO Q6H 5 Days Qty: 20 0RF No Action albuterol sulfate 90 mcg/actuation HFA aerosol inhaler 2 puff IH Q6HP PRN (Reason: Shortness Of Breath) ipratropium-albuterol 0.5 mg-3 mg(2.5 mg base)/3 mL solution for nebulization 3 ml IH QIDP PRN (Reason: Shortness Of Breath) Patient Comments: INHALE THE CONTENTS OF 1 VIAL VIA NEBULIZER FOUR TIMES DAILY sertraline 100 MG tablet 100 mg PO DAILY levothyroxine 88 MCG tablet 88 mcg PO DAILYDM trazodone 100 MG tablet 100 mg PO HS chlorthalidone 25 MG tablet 12.5 mg PO DAILY magnesium oxide 400 MG tablet 400 mg PO DAILY spironolactone 25 MG tablet 25 mg PO DAILY bumetanide 1 MG tablet 1 mg PO DAILY oxazepam 15 MG capsule 15 mg PO TIDP PRN (Reason: Anxiety) Qty: 90 0RF diltiazem HCl 240 MG capsule,extended release 24hr 240 mg PO DAILY lisinopril 10 MG tablet 10 mg PO DAILY metoprolol tartrate 50 MG tablet 50 mg PO BID apixaban 5 MG tablet 5 mg PO BID folic acid 0.4 MG tablet 0.4 mg PO DAILY Referrals Follow up/Referrals: Yara Rosenbaum MD [Primary Care Provider] - See instructions Activity Restrictions/Add. Instructions Additional Instructions/Restrictions: Please take antibiotics as prescribed for prophylaxis of infection. Please keep splint clean, dry, intact, do not take it off until you follow-up in clinic. I spoke with plastic surgery. They should be calling your cell phone in the next couple of days to schedule an appointment in clinic with Dr. Matt in [place]. If you do not get a call by Friday, I recommend calling to ensure that follow-up gets scheduled. Please use Tylenol and ibuprofen as needed for pain. Clinical Impressions Clinical Impression: Partial traumatic amputation of right little finger through phalanx Qualifiers: Encounter type: initial encounter Qualified Code(s): S68.626A - Partial traumatic transphalangeal amputation of right little finger, initial encounter Partial traumatic amputation of left ring finger through phalanx Qualifiers: Encounter type: initial encounter Qualified Code(s): S68.625A - Partial traumatic transphalangeal amputation of left ring finger, initial encounter Alcohol intoxication in active alcoholic Qualifiers: Complication of substance-induced condition: with delirium Qualified Code(s): F10.221 - Alcohol dependence with intoxication delirium Instructions Patient Instructions: DI for Laceration Repair Discharge ED Provider: Lashell Rosenberg General Adult HPI <Say Pike MD - Last Filed: 01/25/23 02:17> General Chief complaint: Wound/Laceration Stated complaint: finger lac Time Seen by Provider: 01/22/23 00:55 Mode of Arrival: EMS Source of Information: Patient and EMS Limitations: No Limitations Description of Symptoms (Recalled from ER Triage Doc. by RN): Pt brought in by [facility] after falling onto a knife he dropped while cutting summer sausage. Pt states he landed on left hand causing deep laceration to his left ring and pinky finger. 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 He reports that he likes to eat summer sausage with his cheese. He reports that he had just sharpened the knife. He denies any other injuries besides the injuries to his left hand. He is on blood thinners, but bleeding is controlled at bedside. He has partial amputation of the distal left fourth and fifth digits. Related Data Home Medications Medication Instructions Recorded Confirmed albuterol sulfate 90 mcg/actuation 2 puff inhalation Q6HP PRN
--- NOTE | 2023-01-22 03:46 | XR_ITS ---
PROCEDURE INFORMATION: Exam: XR Left Hand Exam date and time: 01/22/2023 3:48 AM Age: 57 years old Clinical indication: Abnormal findings; Abnormal imaging study of the limbs; XR left hand; Additional info: Post repair TECHNIQUE: Imaging protocol: Radiologic exam of the left hand. Views: 3 or more views. COMPARISON: CR XR HAND LT MIN 3V 01/22/2023 12:57 AM FINDINGS: Bones/joints: Transverse fracture distal tuft 5th digit a nondisplaced fracture distal tuft 4th digit. This is partly obscured by overlying cast. Soft tissues: Normal. IMPRESSION: Transverse fracture distal tuft 5th digit and nondisplaced fracture distal tuft 4th digit. This is partly obscured by overlying cast.
--- NOTE | 2023-01-22 05:16 | PC.NURSE ---
Pt ambulated to restroom with assist. BP increased to baseline 108/70.
--- NOTE | 2023-01-22 07:32 | PC.NURSE ---
rounded on pt, eating breakfast. pt unable to find a ride at this time. no needs voiced. call light within reach
--- NOTE | 2023-01-22 10:25 | PC.NURSE ---
Rounded on pt, he reports someone was supposed to be here at 10am. He is attempting to call them. IV removed from RAC.
--- NOTE | 2023-01-22 11:52 | PC.NURSE ---
Spoke with Hartiha in care management, she advised she could set up a ride for him but it would be private pay due to insurance. After speaking with pt he advised he did not have any money but would call his ride again.
--- NOTE | 2023-01-22 12:07 | PC.NURSE ---
Pt advised he spoke with his ride and he advised that his rides girlfriend would be coming to pick him up
== END 2023-01-22 12:10 | disposition home or self-care (01) ==
PROVIDERS: Emergency Provider Emergency Medicine; PCP Family Medicine
DX: S68.625A Partial traumatic transphalangeal amputation of left ring finger, initial encounter; S68.627A Partial traumatic transphalangeal amputation of left little finger, initial encounter; F10.221 Alcohol dependence with intoxication delirium; F17.210 Nicotine dependence, cigarettes, uncomplicated; I48.0 Paroxysmal atrial fibrillation; W26.0XXA Contact with knife, initial encounter; Z79.01 Long term (current) use of anticoagulants
CPT/HCPCS: 13131; 29125; 73130; 90715; 96361; 96372; 96374; 96375; 99285; J0690

== ENCOUNTER 2023-03-19 08:47 | Inpatient (IN) | payer MEDICAID, SELFPAY ==
[2023-03-19] VITALS (20 sets, daily range): BP systolic 97–149; BP diastolic 73–102; PULSE 52–173; RESP 15–29; TEMP 36.6–37; O2SAT 80–99; BMI 31.6; BMI 33.0
--- NOTE | 2023-03-19 08:43 | ECG_ITS ---
APPROVED REPORT Exam: Resting ECG HR:167 bpm ECG Measurements Heart Rate 167 AXES QRSd 122 QRS 116 QT 276 T 67 QTc 367 Conclusion ATRIAL FIBRILLATION WITH RAPID VENTRICULAR RESPONSE WITH ABERRANT CONDUCTION OR VENTRICULAR PREMATURE COMPLEXES RIGHT AXIS DEVIATION [QRS AXIS > 100] RIGHT BUNDLE BRANCH BLOCK [120+ ms QRS DURATION, UPRIGHT V1, 40+ ms S IN I/aVL/V4/V5/V6] SEPTAL MYOCARDIAL INFARCTION , OF INDETERMINATE AGE [40+ ms Q WAVE IN V1/V2] CRITICAL TEST RESULT UNCONFIRMED REPORT Electronically signed by : Sravan Wayne MD 03/20/2023 21:27:19
--- NOTE | 2023-03-19 08:56 | XR_ITS ---
FINAL REPORT CLINICAL HISTORY: SOB, volume overload COMPARISON: 08/24/2021 FINDINGS: A single portable view of the chest was obtained. The heart size is enlarged. The pulmonary vascularity is within normal limits. The mediastinum is within normal limits. No acute pulmonary abnormality is identified. The bony thorax is intact. IMPRESSION: No active cardiopulmonary disease. Reviewed, Interpreted and Dictated by Giorgio Mason III, MD Transcribed by Yamini Ashley Authenticated and [facility]
--- NOTE | 2023-03-19 08:56 | CT_ITS ---
FINAL REPORT TECHNIQUE: Axial images through the pelvis were performed by computed tomography. Sagittal and coronal reformatted images were obtained and reviewed. This study was performed with techniques to keep radiation doses as low as reasonably achievable (ALARA). Individualized dose reduction techniques using automated exposure control or adjustment of mA and/or kV according to the patient's size were employed. CLINICAL HISTORY: fall, midline tender FINDINGS: No fracture is identified. There is anterior subcutaneous edema. Marsh catheter is identified. No soft tissue mass or fluid collection is identified. IMPRESSION: No acute fracture. Reviewed, Interpreted and Dictated by Giorgio Mason III, MD Transcribed by Joan Bliss Authenticated and [facility]
--- NOTE | 2023-03-19 08:56 | CT_ITS ---
FINAL REPORT CLINICAL HISTORY: fall, midline tender FINDINGS: Axial CT images of the thoracic spine were obtained without contrast. Sagittal and coronal reformatted images were also obtained. This study was performed with techniques to keep radiation doses as low as reasonably achievable (ALARA). Individualized dose reduction techniques using automated exposure control or adjustment of mA and/or kV according to the patient's size were employed. There is no evidence of fracture. There are mild degenerative changes with osteophytes. The vertebral alignment is normal. There is no evidence of significant canal stenosis. No paraspinous soft tissue abnormality is identified. IMPRESSION: No fracture or acute bony abnormality. Reviewed, Interpreted and Dictated by Giorgio Mason III, MD Transcribed by Joan Bliss Authenticated and [facility]
--- NOTE | 2023-03-19 08:56 | XR_ITS ---
FINAL REPORT CLINICAL HISTORY: fall, left lower leg pain COMPARISON: None FINDINGS: 2 views of the left tibia/fibula were obtained. There is no acute fracture or dislocation. The joint spaces are intact. There is no soft tissue abnormality. IMPRESSION: No acute fracture Reviewed, Interpreted and Dictated by Giorgio Mason III, MD Transcribed by Yamini Ashley Authenticated and [facility]
--- NOTE | 2023-03-19 08:56 | CT_ITS ---
FINAL REPORT TECHNIQUE: Axial images were performed through the lumbar spine by computed tomography. Sagittal reconstruction images were also performed. This study was performed with techniques to keep radiation doses as low as reasonably achievable, (ALARA). Individualized dose reduction techniques using automated exposure control or adjustment of mA and/or kV according to the patient''s size were employed. CLINICAL HISTORY: fall, midline tender FINDINGS: There are moderate L1 and mild L3 compression fractures of uncertain age, favor chronic. Moderate and severe degenerative changes are present. There is vacuum phenomenon at L4-5 and L5-S1. There is mild retroperitoneal adenopathy which is nonspecific, may be reactive or neoplastic. IMPRESSION: Moderate L1 and mild L3 compression fractures of uncertain age, favor chronic. If indicated, MRI may be helpful. Mild retroperitoneal adenopathy, may be reactive or neoplastic. Reviewed, Interpreted and Dictated by Giorgio Mason III, MD Transcribed by Joan Bliss Authenticated and [facility]
[2023-03-19 09:03] LABS: VBG Base Excess -2.3 mmol/L (-2.4-2.3); VBG HCO3 24.2 mmol/L (23-30); VBG Oxygen Saturation 53.5 % (50-70); VBG PCO2 51.3 mmol/L (35-51); VBG PH 7.29 mmol/L (7.31-7.41); VBG PO2 31.2 mmol/L (28-40); VBG Total CO2 25.8 mmol/L (23-27)
--- NOTE | 2023-03-19 09:07 | ED_ITS ---
Discharge Plan Disposition Patient Disposition: Admitted Chief Complaint: Shortness of Breath/Dyspnea Prescriptions Prescriptions: No Action albuterol sulfate 90 mcg/actuation HFA aerosol inhaler 2 puff IH Q6HP PRN (Reason: Shortness Of Breath) ipratropium-albuterol 0.5 mg-3 mg(2.5 mg base)/3 mL solution for nebulization 3 ml IH QIDP PRN (Reason: Shortness Of Breath) Patient Comments: INHALE THE CONTENTS OF 1 VIAL VIA NEBULIZER FOUR TIMES DAILY sertraline 100 MG tablet 100 mg PO DAILY levothyroxine 88 MCG tablet 88 mcg PO DAILYDM trazodone 100 MG tablet 100 mg PO HS chlorthalidone 25 MG tablet 12.5 mg PO DAILY magnesium oxide 400 MG tablet 400 mg PO DAILY spironolactone 25 MG tablet 25 mg PO DAILY bumetanide 1 MG tablet 1 mg PO DAILY oxazepam 15 MG capsule 15 mg PO TIDP PRN (Reason: Anxiety) Qty: 90 0RF cephalexin 500 mg capsule 500 mg PO Q6H 5 Days Qty: 20 0RF diltiazem HCl 240 MG capsule,extended release 24hr 240 mg PO DAILY lisinopril 10 MG tablet 10 mg PO DAILY metoprolol tartrate 50 MG tablet 50 mg PO BID apixaban 5 MG tablet 5 mg PO BID folic acid 0.4 MG tablet 0.4 mg PO DAILY Referrals Follow up/Referrals: Provider,Referral, MD [Primary Care Provider] - See instructions Clinical Impressions Clinical Impression: Acute on chronic right heart failure, Anasarca, History of alcohol use Discharge ED Provider: Todd Hsu [facility] General Chief Complaint: Shortness of Breath/Dyspnea Stated Complaint: ABD Pain Time Seen by Provider: 03/19/23 08:47 Mode of Arrival: EMS Source of Information: Patient and EMS Limitations: No Limitations Description of Symptoms (Recalled from ER Triage Doc. by RN): patient is brought to ED from [facility] and reports abdominal pain and swelling. Patient reports a fall x2 days ago with back pain as well. Patient reports kidney issues in the past with testical pain and swelling. Patient is SOA on arrival with 80% on room air, denies any O2 use at home. History of Present Illness HPI narrative: Patient is a 58-year-old male with past medical history of alcoholism (1 pint a day for multiple decades), last use last week, hypothyroidism, atrial fibrillation not on anticoagulation although prescribed anticoagulation, CHF, pulmonary hypertension, hypertension who presents emergency department for evaluation of multiple complaints. Over the last year patient has had progressive swelling of his lower extremities mild swelling of his abdomen. Over the last 48 hours he has had rapid swelling of his scrotum, abdomen has become tense with associated shortness of breath and cough. Patient is still voiding although decreased from baseline. He also had a mechanical fall onto his back and left side resulting in pain over his left hip, left verma, midline lower back. Due to this he called 911 and presents here for continued evaluation. Patient denies chest pain, however does have significant shortness of breath. Echocardiogram from is as follows: 1. Biatrial enlargement, normal left ventricular size, mild concentric left ventricular hypertrophy, estimated ejection fraction 55% with no regional wall motion abnormality, diastolic parameters are inconclusive. 2. Moderately enlarged right atrium and right ventricle, contractility of the right ventricle is mildly reduced. 3. Mild mitral and moderate tricuspid regurgitation, calculated right ventricular systolic pressure 48 mmHg 4. Small pericardial effusion. 5. Inferior vena cava is poorly visualized. Related Data Home Medications Medication Instructions Recorded Confirmed albuterol sulfate 90 mcg/actuation 2 puff inhalation Q6HP PRN 07/23/21 02/13/23 aerosol inhaler Shortness Of Breath levothyroxine 88 mcg tablet 88 mcg PO DAILYDM hypothyroidism 07/23/21 02/13/23 sertraline 100 mg tablet 100 mg PO DAILY Depression 07/23/21 03/19/23 trazodone 100 mg tablet 100 mg PO HS sleep 07/23/21 03/19/23 ipratropium 0.5 mg-albuterol 3 mg 3 ml inhalation QIDP PRN Shortness 08/13/21 02/13/23 (2.5 mg base)/3 mL nebulization Of Breath soln apixaban 5 mg tablet 5 mg PO BID Blood thinner 08/24/21 03/19/23 diltiazem HCl 240 mg 240 mg PO DAILY Heart rhythm 08/24/21 03/19/23 capsule,extended release 24 hr lisinopril 10 mg tablet 10 mg PO DAILY Hypertension 08/24/21 02/13/23 metoprolol tartrate 50 mg tablet 50 mg PO BID Hypertension 08/24/21 03/19/23 folic acid 400 mcg tablet 0.4 mg PO DAILY Supplement 08/25/21 02/13/23 chlorthalidone 25 mg tablet 12.5 mg PO DAILY Fluid 10/05/21 02/13/23 magnesium oxide 400 mg (241.3 mg 400 mg PO DAILY Supplement 10/05/21 02/13/23 magnesium) tablet bumetanide 1 mg tablet 1 mg PO DAILY Fluid 10/06/21 02/13/23 spironolactone 25 mg tablet 25 mg PO DAILY Fluid 10/06/21 02/13/23 Previous Rx's Medication Instructions Recorded oxazepam 15 mg capsule 15 mg PO TIDP PRN Anxiety #90 caps 10/06/21 cephalexin 500 mg capsule 500 mg PO Q6H 5 days #20 caps 01/22/23 Allergies Allergy/AdvReac Type Severity Reaction Status Date / Time hydrochlorothiazide AdvReac Unknown Other Verified 02/13/23 09:13 [facility] Disclaimer: The information contained in this section may have been updated after the patient was seen, as this information can be updated by other users. 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 current occupational exposures/hazards: No caffeine: Yes ROS Obtained: Yes Systems reviewed as appropriate & no additional complaints except as documented Physical Exam General General appearance: alert and in distress Head Head exam: atraumatic and normocephalic Eye Eye exam: Present PERRL and EOMI ENT ENT exam: Present mucous membranes moist Neck Neck exam: Present normal inspection; Absent tenderness Chest Chest inspection: Present normal inspection and symmetric chest wall rise Respiratory Respiratory exam: Present respiratory distress; Absent normal lung sounds bilaterally (Coarse breath sounds, no wheezing, good air movement) Cardiovascular Cardiovascular exam: Present tachycardia and irregular rhythm Abdominal Exam Abdominal exam: Present distention (Tense abdominal wall edema, no tenderness); Absent tenderness Extremities Exam Extremities exam: Present other (Tense edema bilateral lower extremities throughout) Back Exam Back exam: Present tenderness (Thoracolumbar spine, left SI joint) Neurological Exam Neurological exam: Present alert Psychiatric Psychiatric exam: Present normal affect Skin Skin exam: Present dry HEART Score HEART Score HEART Score assessment performed?: Yes History (anamnesis): Moderately suspicious ECG: Non-specific disturbance Age: 45-65 years Risk factors: 3 or more risk factors Troponin: </= normal limit HEART Score: 5 Critical Care Critical Care Time Critical Care Time: Yes Attestation: On 03/19/23, the high probability of a clinically significant, sudden or life threatening deterioration of the following system(s) required my full and direct attention, intervention and personal management. The time I documented below is in addition to time spent performing reported procedures but includes the following listed in this critical care notation. Total Time Total Critical Care Time: 45 Medical Decision Making Paul Inquiry Pt receiving controlled substance: No Vital Signs Vital Signs: 03/19/23 08:47 03/19/23 08:48 03/19/23 09:13 Temperature 98.3 F Temperature Source Oral Pulse Rate 173 H 150 H Pulse Rate [Right Brachial] 156 H Respiratory Rate 26 H 27 H Blood Pressure 112/88 109/85 L Blood Pressure [Right Arm] 112/88 Blood Pressure Mean Blood Pressure Mean [Right Arm] 96 Blood Pressure Source [Right Arm] Automatic Cuff Blood Pressure Position [Right Arm] Supine 02 Sat by Pulse Oximetry 80 L 98 95 Oxygen Delivery Method Room Air Nasal Cannula Nasal Cannula Oxygen Flow Rate (LPM) 3 3 03/19/23 09:22 03/19/23 09:42 03/19/23 09:51 Temperature Temperature Source Pulse Rate 60 153 H 149 H Pulse Rate [Right Brachial] Respiratory Rate 22 29 H 19 Blood Pressure 111/82 126/102 H 149/75 H Blood Pressure [Right Arm] Blood Pressure Mean Blood Pressure Mean [Right Arm] Blood Pressure Source [Right Arm] Blood Pressure Position [Right Arm] 02 Sat by Pulse Oximetry 92 L 96 95 Oxygen Delivery Method Nasal Cannula Nasal Cannula Oxygen Flow Rate (LPM) 3 3 03/19/23 10:00 03/19/23 10:35 03/19/23 11:00 Temperature Temperature Source Pulse Rate 145 H 61 60 Pulse Rate [Right Brachial] Respiratory Rate 24 23 23 Blood Pressure 142/97 H 114/84 123/81 Blood Pressure [Right Arm] Blood Pressure Mean 92 100 Blood Pressure Mean [Right Arm] Blood Pressure Source [Right Arm] Blood Pressure Position [Right Arm] 02 Sat by Pulse Oximetry 96 97 98 Oxygen Delivery Method Nasal Cannula Oxygen Flow Rate (LPM) 3 03/19/23 11:30 Temperature Temperature Source Pulse Rate 110 H Pulse Rate [Right Brachial] Respiratory Rate 22 Blood Pressure 126/92 H Blood Pressure [Right Arm] Blood Pressure Mean Blood Pressure Mean [Right Arm] Blood Pressure Source [Right Arm] Blood Pressure Position [Right Arm] 02 Sat by Pulse Oximetry 96 Oxygen Delivery Method Nasal Cannula Oxygen Flow Rate (LPM) 3 Lab Data Labs: Lab Results 03/19/23 08:40: D-Dimer 1.26 H 03/19/23 08:45: WBC 6.5, RBC 3.48 L, Hgb 11.4 L, Hct 36.7 L, MCV 105.5 H, MCH 32.8 H, MCHC 31.1 L, RDW 16.2, Plt Count 476 H, MPV 7.9, Neut % (Auto) 67.4, Lymph % (Auto) 22.6, [place] % (Auto) 6.9, Eos % (Auto) 2.2, Baso % (Auto) 0.9, Neut # (Auto) 4.4, Lymph # (Auto) 1.5, [place] # (Auto) 0.5, Eos # (Auto) 0.1, Baso # (Auto) 0.1, PT 12.4, INR 1.16 H, Sodium 139, Potassium 4.7, Chloride 105, Carbon Dioxide 28, Anion Gap 10.7, BUN 22 H, Creatinine 1.10, Estimated Creat Clear 117, Estimated GFR 69, Est GFR ( Amer) 83, Glucose 94, Calcium 7.8 L, Total Bilirubin 0.5, AST 33, ALT 18, Alkaline Phosphatase 262 H, Ammonia 16, Troponin I < 0.01, NT-Pro-B Natriuret Pep 66627 H, Total Protein 6.6, Albumin 2.8 L, Globulin 3.8 H, Albumin/Globulin Ratio 0.7 L, SARS-CoV-2 (PCR) Not detected, Influenza A Untype (PCR) Not detected, Influenza Type B (PCR) Not d etected 03/19/23 08:50: Urine Color Yellow, Urine Appearance Clear, Urine pH 6.0, Ur Specific [place] 1.025, Urine Protein Negative, Urine Glucose (UA) Negative, Urine Ketones Negative, Urine Blood Negative, Urine Nitrate Negative, Urine Bilirubin Negative, Urine Urobilinogen 0.2, Ur Leukocyte Esterase Negative, Urine RBC None, Urine WBC Occasional, Ur Squamous Epith Cells Occasional, Urine Bacteria Trace 03/19/23 08:58: VBG pH 7.29 L, VBG pCO2 51.3 H, VBG pO2 31.2, VBG HCO3 24.2, VBG Total CO2 25.8, VBG O2 Saturation 53.5, VBG Base Excess -2.3 03/19/23 08:45 03/19/23 08:45 Response Orders (Tests/Meds): ED MEDICATIONS Generic Name Dose Route Start Last Admin Trade Name [place] PRN Reason Stop Dose Admin Diltiazem HCl 100 mg/ Sodium 100 mls @ 5 mls/hr 03/19/23 09:02 03/19/23 09:37 Chloride IV 04/18/23 09:01 10 mg/hr .Q20H RYAN 10 mls/hr Titration Protocol 5 MG/HR Bumetanide 25 mg/ Sodium 250 mls @ 5 mls/hr 03/19/23 10:25 03/19/23 10:43 Chloride IV 04/18/23 10:24 5 mls/hr .Q24H RYAN Administration Sodium Chloride 10 ml 03/19/23 09:08 Sodium Chloride 0.9% 10ml Vial IV 04/18/23 09:07 NEEDED PRN to Dilute Lorazepam inj Sodium Chloride 10 ml 03/19/23 10:33 Sodium Chloride 0.9% 10ml Syr (Rad Only) IV 04/18/23 10:32 NEEDED PRN Maintain IV Site Discontinued Medications Generic Name Dose Route Start Last Admin Trade Name Car PRN Reason Stop Dose Admin Bumetanide 1 mg 03/19/23 09:05 03/19/23 09:10 Bumetanide 1mg/4ml Vial IV 03/19/23 09:06 1 mg ONCE ONE Administration Diltiazem HCl 20 mg 03/19/23 09:33 03/19/23 09:15 Diltiazem 25mg/5ml Vial IV 03/19/23 09:34 20 mg ONCE ONE Administration Furosemide 40 mg 03/19/23 08:56 03/19/23 10:49 Furosemide 40mg/4ml Vial IV 03/19/23 08:57 Not Given ONCE ONE Iopamidol 140 ml 03/19/23 10:33 03/19/23 10:35 Iopamidol-370 (76%);100ml Bottle IV 03/19/23 10:34 140 ml ONCE ONE Administration Lorazepam 1 mg 03/19/23 09:08 03/19/23 09:10 Lorazepam 2mg/Ml Vial IV 03/19/23 09:09 1 mg ONCE ONE Administration Metoprolol Tartrate 50 mg 03/19/23 10:24 03/19/23 10:37 Metoprolol Tartrate 50mg Tablet PO 03/19/23 10:25 50 mg ONCE ONE Administration Sodium Chloride 50 ml 03/19/23 10:33 03/19/23 10:35 0.9 % Sodium Chloride 50 Ml Vial IV 03/19/23 10:34 50 ml ONCE ONE Administration ORDERS Category Date Time Status CT angio chest PE protocol Stat Cat Scan 03/19/23 09:[address] bony pelvis Stat Cat Scan 03/19/23 08:[address] lumbar spine wo con Stat Cat Scan 03/19/23 08:[address] thoracic spine wo con Stat Cat Scan 03/19/23 08:56 Completed CXR --portable [XR chest portable] Stat Exams 03/19/23 08:56 Taken Fibula/tibia XR left 2 views [XR tibia fibula LT 2V] Exams 03/19/23 08:56 Taken Stat POCUS Point of Care (ER Only) Stat Exams 03/19/23 08:48 Completed US liver Stat Exams 03/19/23 09:14 Stop Req Ammonia Stat Lab 03/19/23 08:45 Completed BNP [Brain Natriuretic Peptide] Stat Lab 03/19/23 08:45 Completed CBC w/Auto Diff [Complete Blood Count Auto Diff] Stat Lab 03/19/23 08:45 Completed CMP [Comprehensive Metabolic Panel] Stat Lab 03/19/23 08:45 Completed D-Dimer Stat Lab 03/19/23 08:40 Completed PT INR [Prothrombin Time INR] Stat Lab 03/19/23 08:45 Completed Rapid PCR Covid and Flu A/B Stat Lab 03/19/23 08:45 Completed Trop I [Troponin I] Stat Lab 03/19/23 08:45 Completed Troponin I Q3H Lab 03/19/23 12:00 Ordered Troponin I Q3H Lab 03/19/23 15:00 Ordered UA [Urinalysis and Microscopic] Stat Lab 03/19/23 08:50 Completed Blood Culture Stat Micro 03/19/23 10:44 Ordered VBG [Venous Blood Gas] Stat RT 03/19/23 08:58 Completed CA echo doppler complete Routine Y 03/19/23 11:28 Completed ECG initial Besson Routine Y 03/19/23 08:43 Completed ECG Data Tracing #1: ECG Narrative: Independently interpreted by me, rate is 167, rhythm is irregular, axis is rightward deviated, atrial fibrillation with rapid ventricular response, QTc 367. MDM Narrative Medical Decision Narrative: In summary patient is a 58-year-old male with past medical history described above who presents emergency department for evaluation of shortness of breath and traumatic injury sustained in a fall. Patient is in atrial fibrillation with rapid ventricular response upon arrival, acceptable blood pressures, oxygen saturations in the 80s requiring nasal cannula for resolution greater than 90. Patient still has significant tachypnea, tense swelling with anasarca. Differential diagnosis includes acute heart failure, pulmonary hypertension, pulmonary embolism, cardiorenal syndrome, hepatorenal syndrome, among others. [id number] ultrasound at bedside shows decreased ejection fraction, right ventricular dilation, small pericardial effusion, mild B-lines in the lung fi elds. Ultrasound abdomen shows no ascites (images were not saved to permanent archive therefore no note is warranted). Reviewing patient's weight from last month he is 66 pounds up. I suspect multifactorial volume overload. Workup will be conducted with hematologic labs, chest x-ray, EKG, CT thoracolumbar spine and pelvis without contrast, CT angio pulmonary embolism protocol. Patient will be placed on BiPAP for volume overload and oxygen requirement in an effort to decrease his work of breathing with at least some degree of suspected left heart failure. Patient was given 1 of Bumex prior to creatinine and GFR resulting. Patient may have A-fib with RVR secondary to volume overload in isolation however alcohol withdrawal may be contributing given that his last drink was last week for this 1 mg of Ativan will be given. A couple of years ago patient had echo demonstrating pulmonary hypertension, patient has EKG changes with right axis deviation, [id number] ultrasound shows dilated right ventricle and there are trace B-lines however not significant, no pericardial effusion or pleural effusion making my index of suspicion for right heart failure significantly contributing to his clinical picture high. For atrial fibrillation with rapid ventricular response heart rate in the 160s is impairing his diastolic filling therefore 20 mg bolus of diltiazem and the case will be discussed with Dr. Harris regarding continued management. Upon repeat evaluation patient was not having improvement with BiPAP, ultrasound shows minimal B-lines so patient will be transition to facemask oxygen to eliminate the possibility of BiPAP impairing his right heart filling. Case was discussed with Dr. Harris regarding management, patient will be started on metoprolol to tartrate p.o., diltiazem drip will be continued, Bumex drip will be initiated. Workup reviewed by me, hematologic labs remarkable for mild hypercarbic acidosis, no VENKATESH, no critical electrolyte abnormalities, significantly elevated BNP. Trauma survey remarkable for L1 and L3 compression fractures of uncertain age favored to be chronic, there is no retropulsion or critical height loss that would warrant transfer for spine evaluation at this time. No acute bony trauma in the thoracic spine or pelvis. Preliminary report CT chest shows no evidence of pulmonary embolism or dissection, diffuse anasarca, calcified mediastinal adenopathy of undetermined etiology. Cardiology recommends admission for aggressive diuresis and cardiopulmonary optimization, formal recommendations pending after echocardiography. The case was discussed with Dr. Bridges regarding management patient will be admitted to his service f or continued evaluation at this time.
--- NOTE | 2023-03-19 09:07 | PC.NURSE ---
RT in room to place patient on bi-pap at this time.
[2023-03-19 09:09] LABS: Basophils # 0.1 K/mm3 (0-0.2); Basophils % 0.9 % (0.1-2.0); Eosinophils # 0.1 K/mm3 (0.0-0.4); Eosinophils % 2.2 % (0.1-12.0); Hematocrit 36.7 % (42.0-52.0); Hemoglobin 11.4 g/dL (14.1-18.0); Lymphocytes # 1.5 K/mm3 (0.7-4.5); Lymphocytes % 22.6 % (10-50); Mean Corpuscular HGB Conc 31.1 g/dL (31.8-35.4); Mean Corpuscular Hemoglobin 32.8 pg (27.0-31.2); Mean Corpuscular Volume 105.5 fl (80-94); Mean Platelet Volume 7.9 fl (7.4-10.4); Monocytes # 0.5 K/mm3 (0.1-1.0); Monocytes % 6.9 % (1.7-9.3); Neutrophils # 4.4 K/mm3 (1.8-7.8); Neutrophils % 67.4 % (37.0-80.0); Platelet Count 476 K/mm3 (142-424); Red Blood Count 3.48 M/mm3 (4.60-6.20); Red Cell Distribution Width 16.2 % (11.5-17.5); White Blood Count 6.5 K/mm3 (4.8-10.8)
[2023-03-19] MEDS: BUMETANIDE 1MG/4ML VIAL 1 MG IV (09:10)
[2023-03-19] MEDS: LORazepam 2MG/ML VIAL 1 MG IV (09:10)
[2023-03-19] MEDS: dilTIAZem 25MG/5ML VIAL 20 MG IV (09:15)
[2023-03-19 09:16] LABS: Chloride 105 mmol/L (98-107)
[2023-03-19 09:17] LABS: Potassium 4.7 mmoL/L (3.5-5.1); Sodium 139 mmol/L (136-145)
[2023-03-19 09:19] LABS: Alanine Aminotransferase 18 U/L (12-78); Ammonia 16 umol/L (9-30); Aspartate Amino Transferase 33 U/L (17-59); Blood Urea Nitrogen 22 mg/dl (9-20); Creatinine Clearance Estimated 117 mL/min (50-200); Estimated Glomerular Filt Rate 69 ml/min (>60); GFR (African American) 83 ML/MIN (>60)
[2023-03-19 09:20] LABS: Albumin Level 2.8 g/dl (3.5-5.0); Albumin/Globulin Ratio 0.7 (1.1-1.8); Alkaline Phosphatase 262 U/L (38-126); Anion Gap 10.7 mEq/L (5-15); Bilirubin,Total 0.5 mg/dl (0.2-1.3); Calcium 7.8 mg/dl (8.4-10.2); Carbon Dioxide 28 mmol/L (22.0-30.0); Globulin 3.8 g/dL (1.3-3.2); Glucose 94 mg/dl (74-100); Total Protein,Serum 6.6 g/dl (6.3-8.2)
[2023-03-19] MEDS: dilTIAZem HCL 100 MG in 0.9 % SODIUM CHLORIDE 100 ML IV (09:20)
[2023-03-19 09:29] LABS: NT Pro Brain Natriuretic Pep. 13500 pg/mL (0-125)
[2023-03-19 09:31] LABS: INR 1.16 (0.9-1.1); Prothrombin Time 12.4 seconds (10.1-12.5)
[2023-03-19 09:35] LABS: Troponin I < 0.01 ng/ml (0.00-0.034)
--- NOTE | 2023-03-19 09:39 | PC.NURSE ---
we are holding on the lasix for right now
[2023-03-19 09:49] LABS: D-Dimer 1.26 ug/mL (0.0-0.5)
--- NOTE | 2023-03-19 09:49 | CT_ITS ---
FINAL REPORT CLINICAL HISTORY: acute R heart failure, tachy FINDINGS: Thin section axial CT images of the chest were obtained with contrast. 3D reformatted images were also obtained. This study was performed with techniques to keep radiation doses as low as reasonably achievable (ALARA). Individualized dose reduction techniques using automated exposure control or adjustment of mA and/or kV according to the patient's size were employed. There is no evidence of pulmonary embolism. There is no evidence of thoracic aortic aneurysm or dissection. There is cardiomegaly. Small pericardial effusion is identified. There are multiple calcified mediastinal and hilar nodes. There are small pleural effusions and mild bibasilar atelectasis. Limited images of the upper abdomen demonstrate diffuse anasarca. There are multiple mildly enlarged retrocrural nodes which may be reactive or neoplastic. IMPRESSION: No evidence of pulmonary embolism or dissection. Small pleural effusions with mild bibasilar atelectasis. Diffuse anasarca. Mildly enlarged retrocrural nodes which may be reactive or neoplastic. Reviewed, Interpreted and Dictated by Giorgio Mason III, MD Transcribed by Joan Bliss Authenticated and . [facility]
--- NOTE | 2023-03-19 09:52 | PC.NURSE ---
resp here to remove bipap
--- NOTE | 2023-03-19 10:34 | PC.NURSE ---
pt arrived back to room from ct assisted radio repairer domestic moving pt back to room
[2023-03-19] MEDS: 0.9 % SODIUM CHLORIDE 50 ML VIAL IV (10:35)
[2023-03-19] MEDS: IOPAMIDOL-370 (76%);100ML BOTTLE 140 ML IV (10:35)
[2023-03-19] MEDS: METOPROLOL TARTRATE 50MG TABLET 50 MG PO (10:37)
--- NOTE | 2023-03-19 10:38 | PC.NURSE ---
xray at bs
[2023-03-19] MEDS: SODIUM CHLORIDE 0.9% IV (10:43)
[2023-03-19] MEDS: BUMETANIDE IV (10:43)
[2023-03-19 10:47] LABS: Microscopic, Urine URINE MICROSCOPIC (MICROSCOPIC)
[2023-03-19 10:48] LABS: Coronavirus 19, PCR Not Detected (NotDetected); Influenza A, PCR Not Detected (NotDetected); Influenza B, PCR Not Detected (NotDetected)
[2023-03-19 10:50] LABS: Appearance,Urine CLEAR (Clear); Bilirubin,Urine Negative (Negative); Blood, Urine Negative (Negative); Color,Urine YELLOW (Yellow); Glucose,Urine (UA) Negative (Negative); Ketones,Urine Negative (Negative); Leukocyte Esterase,Urine Negative (Negative); Nitrate,Urine Negative (Negative); Protein,Urine Negative (Negative); Specific Gravity, Urine 1.025 (1.005-1.030); Urobilinogen,Urine 0.2 EU/dl (0.2)
--- NOTE | 2023-03-19 11:12 | PC.NURSE ---
Per the second set of blood culture is not needed at this time due to pt condition, kal in lab aware
[2023-03-19 11:17] LABS: Bacteria,Urine Trace /lpf; Squamous Epithelial Cell,Urine Occasional #/hpf (0-5); WBC,Urine Occasional #/hpf (0-3)
--- NOTE | 2023-03-19 11:28 | CA_ITS ---
APPROVED REPORT EXAM: Comprehensive 2D, Doppler, and color-flow Echocardiogram Welfare Officer: Estela Wallace CRT Ht: 6 ft 1 in Wt: 250lbs BSA: 2.37 BP: 112/88 mmHg Indications: Chronic pericardial effusion, Pulmonary Hypertension, Shortness of Breath, Atrial Fibrillation, Ablation x 2, non-compliant w meds, Alcoholism M-Mode Dimensions RVDd 4.03 cm (0.9-2.6) LA Diam 3.99 cm (1.9-4.0) LVDd 4.89 cm (3.5-5.7) LVDs 3.89 cm (3.5-5.7) IVSd 1.93 cm (0.6-1.1) PWd 1.01 cm (0.6-1.1) EF (Teich) 41.70% FS 20.40% EDV (Teich) 112.30 mL TAPSE 1.39 (<1.7) ESV (Teich) 65.50 mL LV Diastology E Decel Time 150 (160-240 msec) E/A Ratio 3.34 Aortic Valve AI PHT 490.00 ms AO Peak GR. 10.80 mmHg Mitral Valve MV E Max Balwinder. 202.0 (40-130 cm/s) MV A Velocity 60.0 (40-130 cm/s) E/A Ratio 3.34 MV PHT 44.0 ms Pulmonary Valve PV Peak Velocity 173.0 (50-150 cm/s) Tricuspid Valve TR P. Velocity 282.00 cm/s RAP Estimate 10.00 mmHg RVSP 41.80 mmHg Left Ventricle The left ventricle is normal size. Left ventricular systolic function is moderate to severely decreased. There is increased LV wall thickness. There is global moderate to severe hypokinesis present. Diastolic function is indeterminate due to atrial fibrillation. LVEF is 30%. Right Ventricle Right ventricle is severely dilated. Right ventricle is severely hypokinetic. Atria The left atrium is mildly dilated. The right atrium is mildly dilated. The interatrial septum bows leftward, suggestive of increased RA pressure. There is no Doppler evidence of interatrial shunt, but this may be difficult to detect in this setting due to elevated RA pressure.. Aortic Valve The aortic valve is mildly thickened. There is no aortic valvular stenosis. No aortic regurgitation is present. Mitral Valve The mitral valve leaflets are mildly thickened. No evidence of mitral valve stenosis. Mild mitral regurgitation. Tricuspid Valve The tricuspid valve leaflets are thin and pliable. Severe tricuspid regurgitation. There is significant respirophasic variation across the tricuspid valve. RVSP is > 30 mmHg (RVSP is likely underestimated and inaccurate in the setting of severe TR). Pulmonic Valve The pulmonary valve is normal in structure. Mild pulmonic regurgitation. Great Vessels The aortic root is normal in size. The ascending aorta is not well-visualized. The IVC is plethoric. Pericardium There is a small sized, circumferential pericardial effusion present. The largest pocket measures is noted posteriorly and measures approximately 0.8 cm in diastole. There is no evidence of chamber collapse, but typical echo features of tamponade are less likely to be present in the setting of severe RV dilation and dysfunction. Other Information Study Quality: Technically Difficult Conclusion The difficult study due to poor acoustic windows. Moderate to severe reduction in LV systolic function (LVEF 30%). Severe RV dilation with severe reduction in RV function. Biatrial enlargement. Mild MR. Severe TR. Elevated RVSP > 30 mmHg, but this is likely underestimated and inaccurate due to severe TR. Small circumferential pericardial effusion. No evidence of chamber collapse, but typical echo features of tamponade are less likely to be present in the setting of severe RV dilation and dysfunction. Electronically signed by : Adenike Garcia MD 03/20/2023 02:44:57
--- NOTE | 2023-03-19 11:57 | PC.NURSE ---
called Dr Bridges for Dr Hsu to speak with him about this pt
--- NOTE | 2023-03-19 12:03 | P.CONCA_ITS ---
History of Present Illness History of Present Illness Consult date: 03/19/23 Requesting physician: Todd Hsu Consult reason: atrial fibrillation and congestive heart failure Chief complaint: abdominal pain and swelling History of present illness: Patient is a 58-year-old male with past medical history of alcoholism (1 pint a day for multiple decades), last use last week, alcoholic cirrhosis, hypothyroidism, atrial fibrillation not on anticoagulation although prescribed anticoagulation, HFpEF, pulmonary hypertension and hypertension who presented to emergency department for evaluation of multiple complaints. Over the last year patient has had progressive swelling of his lower extremities mild swelling of his abdomen. Over the last 48 hours he has had rapid swelling of his scrotum, abdomen has become tense with associated shortness of breath and cough. Patient is still voiding although decreased from baseline. He also had a mechanical fall onto his back and left side resulting in pain over his left hip, left verma, midline lower back. Due to this he called 911 and presents here for continued evaluation. Patient denies chest pain, however does have significant shortness of breath. Upon presentation to ED patient was found to be in afib rvr with a rate of 150-170. Oxygen saturations in the 80s improving to 90s on 3 L nasal cannula. Labs as follow: WBC 6.5, hemoglobin 11.4, INR 1.16, D-dimer elevated 1.26 sodium 139, potassium 4.7, creatinine 1.1, liver enzymes within normal limits, alk phos 262, ammonia 16, troponin negative and proBNP 13,500. VBG shows a pH of 7.29. CTA chest pending. Patient was started on Bumex drip and diltiazem drip and heart rate has now improved to low 100s. She has diuresed over 800 mL. She will be admitted for further evaluation and diuresis. [facility] Disclaimer: The information contained in this section may have been updated after the ginette kim was seen, as this information can be updated by other users. Medical History Alcoholism Anxiety Atrial fibrillation with rapid ventricular response CHF (congestive heart failure) Cirrhosis, alcoholic COPD (chronic obstructive pulmonary disease) GERD (gastroesophageal reflux disease) Hypertension Paroxysmal atrial fibrillation Pulmonary hypertension Tobacco use Surgical History (Updated 03/19/23 @ 13:59 by AMARILIS Yeager) History of cardiac radiofrequency ablation History of discectomy Family History (Updated 03/19/23 @ 13:59 by AMARILIS Yeager) Other Cancer Hypertension Stroke Substance abuse Social History Smoking Status: Current every day smoker tobacco type: cigarettes packs per day: 2 alcohol intake: current current occupational status: employed Travel in the last 8 weeks: None household members: significant other housing: house 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 current occupational exposures/hazards: No caffeine: Yes Review of Systems Review of Systems Review of systems:: pertinent systems reviewed and negative unless documented below Constitutional Comments: Multiple falls *Cardiovascular Cardiovascular: Denies chest pain and Reports dyspnea *Respiratory Respiratory: Reports dyspnea *Gastrointestinal Comments: abdominal pain *Musculoskeletal Musculoskeletal: Reports back pain Exam Data for Last 24 hours Vital signs and Labs for Last 24 Hours: Temp Pulse Resp BP Pulse Ox O2 Del Method O2 Flow Rate 98.3 F 110 H 22 126/92 H 96 Nasal Cannula 3 03/19/23 08:47 03/19/23 11:30 03/19/23 11:30 03/19/23 11:30 03/19/23 11:30 03/19/23 11:30 03/19/23 11:30 FiO2 35 03/19/23 09:17 Laboratory Results - last 24 hr 03/19/23 08:40: D-Dimer 1.26 H 03/19/23 08:45: WBC 6.5, RBC 3.48 L, Hgb 11.4 L, Hct 36.7 L, MCV 105.5 H, MCH 32.8 H, MCHC 31.1 L, RDW 16.2, Plt Count 476 H, MPV 7.9, Neut % (Auto) 67.4, Lymph % (Auto) 22.6, Stewart % (Auto) 6.9, Eos % (Auto) 2.2, Baso % (Auto) 0.9, Neut # (Auto) 4.4, Lymph # (Auto) 1.5, Stewart # (Auto) 0.5, Eos # (Auto) 0.1, Baso # (Auto) 0.1, PT 12.4, INR 1.16 H, Sodium 139, Potassium 4.7, Chloride 105, Carbon Dioxide 28, Anion Gap 10.7, BUN 22 H, Creatinine 1.10, Estimated Creat Clear 117, Estimated GFR 69, Est GFR ( Amer) 83, Glucose 94, Calcium 7.8 L, Total Bilirubin 0.5, AST 33, ALT 18, Alkaline Phosphatase 262 H, Ammonia 16, Troponin I < 0.01, NT-Pro-B Natriuret Pep 37647 H, Total Protein 6.6, Albumin 2.8 L, Globulin 3.8 H, Albumin/Globulin Ratio 0.7 L, SARS-CoV-2 (PCR) Not detected, Influenza A Untype (PCR) Not detected, Influenza Type B (PCR) Not detected 03/19/23 08:50: Urine Color Yellow, Urine Appearance Clear, Urine pH 6.0, Ur Specific [place] 1.025, Urine Protein Negative, Urine Glucose (UA) Negative, Urine Ketones Negative, Urine Blood Negative, Urine Nitrate Negative, Urine Bilirubin Negative, Urine Urobilinogen 0.2, Ur Leukocyte Esterase Negative, Urine RBC None, Urine WBC Occasional, Ur Squamous Epith Cells Occasional, Urine Bacteria Trace 03/19/23 08:58: VBG pH 7.29 L, VBG pCO2 51.3 H, VBG pO2 31.2, VBG HCO3 24.2, VBG Total CO2 25.8, VBG O2 Saturation 53.5, VBG Base Excess -2.3 I & O for Last 24 hours: Intake & Output 03/16/23 03/17/23 03/18/23 03/19/23 23:59 23:59 23:59 23:59 Intake Total 1.417 / 1.417 Balance 1.417 / 1.417 Weight 250 lb Constitutional Constitutional: no acute distress *Routine Respiratory Exam Respiratory: Present rhonchi, crackles and symmetric chest movement *Routine Cardiovascular Exam Cardiovascular: Present Normal S1, Normal S2, tachycardia, irregular rhythm and irregularly irregular *Routine Abdominal Exam Abdominal: Present normoactive bowel sounds, tenderness and distended *Routine Extremities Exam Extremities: Present edema and full ROM *Routine Skin Exam Skin: Present intact, dry and warm Detailed Neck Exam: Thyroids Thyroid: Absent bruit Meds Home Medications and Allergies Home Medications Medication Instructions Recorded Confirmed Type albuterol sulfate 90 mcg/actuation 2 puff inhalation Q6HP PRN 07/23/21 03/19/23 History aerosol inhaler Shortness Of Breath levothyroxine 88 mcg tablet 88 mcg PO DAILYDM hypothyroidism 07/23/21 03/19/23 History sertraline 100 mg tablet 100 mg PO DAILY Depression 07/23/21 03/19/23 History trazodone 100 mg tablet 100 mg PO HS sleep 07/23/21 03/19/23 History ipratropium 0.5 mg-albuterol 3 mg 3 ml inhalation QIDP PRN Shortness 08/13/21 03/19/23 History (2.5 mg base)/3 mL nebulization Of Breath soln apixaban 5 mg tablet 5 mg PO BID Blood thinner 08/24/21 03/19/23 History diltiazem HCl 240 mg 240 mg PO DAILY Heart rhythm 08/24/21 03/19/23 History capsule,extended release 24 hr lisinopril 10 mg tablet 10 mg PO DAILY Hypertension 08/24/21 03/19/23 History metoprolol tartrate 50 mg tablet 50 mg PO BID Hypertension 08/24/21 03/19/23 History folic acid 400 mcg tablet 0.4 mg PO DAILY Supplement 08/25/21 03/19/23 History chlorthalidone 25 mg tablet 12.5 mg PO DAILY Fluid 10/05/21 03/19/23 History magnesium oxide 400 mg (241.3 mg 400 mg PO DAILY Supplement 10/05/21 03/19/23 History magnesium) tablet bumetanide 1 mg tablet 1 mg PO DAILY Fluid 10/06/21 03/19/23 History oxazepam 15 mg capsule 15 mg PO TIDP PRN Anxiety #90 caps 10/06/21 03/19/23 Rx spironolactone 25 mg tablet 25 mg PO DAILY Fluid 10/06/21 03/19/23 History cephalexin 500 mg capsule 500 mg PO Q6H 5 days #20 caps 01/22/23 03/19/23 Rx New Prescriptions to Start Prescriptions: Allergies Allergy/AdvReac Type Severity Reaction Status Date / Time hydrochlorothiazide AdvReac Unknown Other Verified 02/13/23 09:13 Assessment and Plan *Assessment and plan (1) Anasarca: Status: Acute Category: Medical Code(s): R60.1 - Generalized edema (2) History of alcohol use: Status: Acute Category: Medical Code(s): Z87.898 - Personal history of other specified conditions (3) Hypertension: Status: Chronic Qualifiers: Hypertension type: unspecified Qualified Code(s): I10 - Essential (primary) hypertension Category: Medical Code(s): I10 - Essential (primary) hypertension (4) Alcohol abuse: Status: Chronic Category: Social Hx Code(s): F10.10 - Alcohol abuse, uncomplicated (5) Tobacco abuse: Status: Chronic Category: Medical Code(s): Z72.0 - Tobacco use (6) Atrial fibrillation with rapid ventricular response: Status: Acute Category: Medical Code(s): I48.91 - Unspecified atrial fibrillation (7) CHF (congestive heart failure): Status: Chronic Qualifiers: Heart failure chronicity: unspecified Heart failure type: unspecified Qualified Code(s): I50.9 - Heart failure, unspecified Category: Medical Code(s): I50.9 - Heart failure, unspecified Plan PAF chadsvasc score 2 -Started on Dilt drip with improvement in heart rate -Given reduced EF we will stop diltiazem drip and start oral Digoxin 125 mcg daily for rate control -Continue home dose of metoprolol 50 mg p.o. twice daily -Resume Eliquis 5 mg p.o. twice daily Acute on chronic right sided heart failure Pulmonary HTN Anasarca/volume overload -History of historically normal ejection fraction -Preliminary echo report shows: EF of 30% with septal regional wall abnormality noted. RV is severely dilated and dysfunctional. Moderate TR. Small pericardial effusion -Given reduced ejection fraction and wall motion abnormalities will consider left heart cath prior to discharge or on an outpatient basis once patient has fully diuresed. -Continue Bumex drip, repeat cmp at 1900 -Strict I's and O's with Marsh catheter -CTA chest pending -Will add Entresto, Jardiance, Aldactone after patient is fully diuresed. History of alcohol abuse Alcoholic cirrhosis -Defer to primary service Tobacco use -Smoking cessation advised CV summary 03/19/2023: Continue to diurese with Bumex drip. Start digoxin 125 mcg p.o. daily in addition to home dose of metoprolol 50 mg p.o. twice daily for rate control. CTA of chest is pending. Please contact Dr. Harris this evening with any concerns or if creatinine bumps significantly.
[2023-03-19 13:08] LABS: Troponin I < 0.01 ng/ml (0.00-0.034)
--- NOTE | 2023-03-19 13:52 | P.HP_ITS ---
History of Present Illness *Admission Date: 03/19/23 *Reason for visit:: SOA, swelling *History of present illness: Patient is a 58-year-old male with past medical history of alcoholism (1 pint a day for multiple decades), last use last week, hypothyroidism, atrial fibrillation not on anticoagulation although prescribed anticoagulation, CHF, pulmonary hypertension, hypertension who presents emergency department for evaluation of multiple complaints. Over the last year patient has had progressive swelling of his lower extremities mild swelling of his abdomen. Over the last 48 hours he has had rapid swelling of his scrotum, abdomen has become tense with associated shortness of breath and cough. Patient is still voiding although decreased from baseline. He also had a mechanical fall onto his back and left side resulting in pain over his left hip, left verma, midline lower back. Due to this he called 911 and presents here for continued evaluation. Patient denies chest pain, however does have significant shortness of breath. In summary patient is a 58-year-old male with past medical history described above who presents emergency department for evaluation of shortness of breath and traumatic injury sustained in a fall. Patient is in atrial fibrillation with rapid ventricular response upon arrival, acceptable blood pressures, oxygen saturations in the 80s requiring nasal cannula for resolution greater than 90. Patient still has significant tachypnea, tense swelling with anasarca. Differential diagnosis includes acute heart failure, pulmonary hypertension, pulmonary embolism, cardiorenal syndrome, hepatorenal syndrome, among others. [id number] ultrasound at bedside shows decreased ejection fraction, right ventricular dilation, small pericardial effusion, mild B-lines in the lung [place]. Ultrasound abdomen shows no ascites (images were not saved to permanent archive therefore no note is warranted). Reviewing patient's weight from last month he is 66 pounds up. I suspect multifactorial volume overload. Workup will be conducted with hematologic labs, chest x-ray, EKG, CT thoracolumbar spine and pelvis without contrast, CT angio pulmonary embolism protocol. Patient will be placed on BiPAP for volume overload and oxygen requirement in an effort to decrease his work of breathing with at least some degree of suspected left heart failure. Patient was given 1 of Bumex prior to creatinine and GFR resulting. Patient may have A-fib with RVR secondary to volume overload in isolation however alcohol withdrawal may be contributing given that his last drink was last week for this 1 mg of Ativan will be given. A couple of years ago patient had echo demonstrating pulmonary hypertension, patient has EKG changes with right axis deviation, [id number] ultrasound shows dilated right ventricle and there are trace B-lines however not significant, no pericardial effusion or pleural effusion making my index of suspicion for right heart failure significantly contributing to his clinical picture high. For atrial fibrillation with rapid ventricular response heart rate in the 160s is impairing his diastolic filling therefore 20 mg bolus of diltiazem and the case will be discussed with Dr. Harris regarding continued management. Upon repeat eval uation patient was not having improvement with BiPAP, ultrasound shows minimal B-lines so patient will be transition to facemask oxygen to eliminate the possibility of BiPAP impairing his right heart filling. Case was discussed with Dr. Harris regarding management, patient will be started on metoprolol to tartrate p.o., diltiazem drip will be continued, Bumex drip will be initiated. Workup reviewed by me, hematologic labs remarkable for mild hypercarbic acidosis, no VENKATESH, no critical electrolyte abnormalities, significantly elevated BNP. Trauma survey remarkable for L1 and L3 compression fractures of uncertain age favored to be chronic, there is no retropulsion or critical height loss that would warrant transfer for spine evaluation at this time. No acute bony trauma in the thoracic spine or pelvis. Preliminary report CT chest shows no evidence of pulmonary embolism or dissection, diffuse anasarca, calcified mediastinal adenopathy of undetermined etiology. Cardiology recommends admission for aggressive diuresis and cardiopulmonary optimization, formal recommendations pending after echocardiography. The case was discussed with Dr. Bridges regarding management patient will be admitted to his service for continued evaluation at this time. (above as per ER physician) The patient states his last drink was of last week. He drinks a pint to a gallon a day. He also has 2 fingers on his left hand that are black. He says he almost cut them off but he does not remember when that happened. Based on ER records, it was back in January. The sutures are still in place. He has been off of most of his medications. He states he occasionally will take his BP medication. [facility] Disclaimer: The information contained in this section may have been updated after the patient was seen, as this information can be updated by other users. Medical History Alcoholism Anxiety Atrial fibrillation with rapid ventricular response CHF (congestive heart failure) Cirrhosis, alcoholic COPD (chronic obstructive pulmonary disease) GERD (gastroesophageal reflux disease) Hypertension Paroxysmal atrial fibrillation Pulmonary hypertension Tobacco use Surgical History (Updated 03/19/23 @ 13:59 by AMARILIS Yeager) History of cardiac radiofrequency ablation History of discectomy Family History (Updated 03/19/23 @ 13:59 by AMARILIS Yeager) Substance abuse Cancer Hypertension Stroke Social History (Updated 03/19/23 @ 16:46 by AMARILIS Yeager) Smoking Status: Current every day smoker tobacco type: cigarettes packs per day: 2 alcohol intake: current current occupational status: employed Travel in the last 8 weeks: None household members: significant other housing: house 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 current occupational exposures/hazards: No caffeine: Yes Review of Systems Constitutional Constitutional: Denies chills, Reports fatigue, Denies fever(s), Reports frequent falls, Reports headache(s), Reports poor appetite, Reports malaise, Reports weakness and Reports weight gain Eyes Eyes: Denies blurry vision and Denies diplopia ENT Ears, Nose, Mouth, and Throat: Reports headache(s), Denies nasal congestion, Denies sore throat and Reports vertigo *Cardiovascular Cardiovascular: Denies chest pain, Reports dyspnea, Reports dyspnea on exertion, Reports edema, Reports lightheadedness and Reports palpitations *Respiratory Respiratory: Reports cough, Reports dyspnea, Reports dyspnea on exertion and Reports wheezing *Gastrointestinal Gastrointestinal: Reports abdominal pain, Denies diarrhea, Reports nausea and Denies vomiting *Genitourinary Genitourinary: Denies difficulty urinating and Denies dysuria *Musculoskeletal Musculoskeletal: Reports arthralgias (left hip) and Reports back pain *Neurologic Neurologic: Reports frequent falls, Reports headache(s), Reports vertigo and Reports weakness Endocrine Endocrine: Reports fatigue and Reports palpitations Allergic/Immunologic Allergic/Immunologic: Reports wheezing Meds Home Medications and Allergies Home Medications Medication Instructions Recorded Confirmed Type albuterol sulfate 90 mcg/actuation 2 puff inhalation Q6HP PRN 07/23/21 03/19/23 History aerosol inhaler Shortness Of Breath levothyroxine 88 mcg tablet 88 mcg PO DAILYDM hypothyroidism 07/23/21 03/19/23 History sertraline 100 mg tablet 100 mg PO DAILY Depression 07/23/21 03/19/23 History trazodone 100 mg tablet 100 mg PO HS sleep 07/23/21 03/19/23 History ipratropium 0.5 mg-albuterol 3 mg 3 ml inhalation QIDP PRN Shortness 08/13/21 03/19/23 History (2.5 mg base)/3 mL nebulization Of Breath soln apixaban 5 mg tablet 5 mg PO BID Blood thinner 08/24/21 03/19/23 History diltiazem HCl 240 mg 240 mg PO DAILY Heart rhythm 08/24/21 03/19/23 History capsule,extended release 24 hr lisinopril 10 mg tablet 10 mg PO DAILY Hypertension 08/24/21 03/19/23 History metoprolol tartrate 50 mg tablet 50 mg PO BID Hypertension 08/24/21 03/19/23 History folic acid 400 mcg tablet 0.4 mg PO DAILY Supplement 08/25/21 03/19/23 History chlorthalidone 25 mg tablet 12.5 mg PO DAILY Fluid 10/05/21 03/19/23 History magnesium oxide 400 mg (241.3 mg 400 mg PO DAILY Supplement 10/05/21 03/19/23 History magnesium) tablet bumetanide 1 mg tablet 1 mg PO DAILY Fluid 10/06/21 03/19/23 History oxazepam 15 mg capsule 15 mg PO TIDP PRN Anxiety #90 caps 10/06/21 03/19/23 Rx spironolactone 25 mg tablet 25 mg PO DAILY Fluid 10/06/21 03/19/23 History cephalexin 500 mg capsule 500 mg PO Q6H 5 days #20 caps 01/22/23 03/19/23 Rx New Prescriptions to Start Prescriptions: Allergies Allergy/AdvReac Type Severity Reaction Status Date / Time hydrochlorothiazide AdvReac Unknown Other Verified 02/13/23 09:13 Exam Data for Last 24 hours Vital signs and Labs for Last 24 Hours: Temp Pulse Resp BP Pulse Ox O2 Del Method O2 Flow Rate 98.3 F 52 L 21 97/75 L 98 Nasal Cannula 3 03/19/23 08:47 03/19/23 13:00 03/19/23 13:00 03/19/23 13:00 03/19/23 13:00 03/19/23 13:00 03/19/23 13:00 FiO2 35 03/19/23 09:17 Laboratory Results - last 24 hr 03/19/23 08:40: D-Dimer 1.26 H 03/19/23 08:45: WBC 6.5, RBC 3.48 L, Hgb 11.4 L, Hct 36.7 L, MCV 105.5 H, MCH 32.8 H, MCHC 31.1 L, RDW 16.2, Plt Count 476 H, MPV 7.9, Neut % (Auto) 67.4, Lymph % (Auto) 22.6, [place] % (Auto) 6.9, Eos % (Auto) 2.2, Baso % (Auto) 0.9, Neut # (Auto) 4.4, Lymph # (Auto) 1.5, [place] # (Auto) 0.5, Eos # (Auto) 0.1, Baso # (Auto) 0.1, PT 12.4, INR 1.16 H, Sodium 139, Potassium 4.7, Chloride 105, Carbon Dioxide 28, Anion Gap 10.7, BUN 22 H, Creatinine 1.10, Estimated Creat Clear 117, Estimated GFR 69, Est GFR ( Amer) 83, Glucose 94, Calcium 7.8 L, Total Bilirubin 0.5, AST 33, ALT 18, Alkaline Phosphatase 262 H, Ammonia 16, Troponin I < 0.01, NT-Pro-B Natriuret Pep 94800 H, Total Protein 6.6, Albumin 2.8 L, Globulin 3.8 H, Albumin/Globulin Ratio 0.7 L, SARS-CoV-2 (PCR) Not detected, Influenza A Untype (PCR) Not detected, Influenza Type B (PCR) Not detected 03/19/23 08:50: Urine Color Yellow, Urine Appearance Clear, Urine pH 6.0, Ur Specific [place] 1.025, Urine Protein Negative, Urine Glucose (UA) Negative, Urine Ketones Negative, Urine Blood Negative, Urine Nitrate Negative, Urine Bilirubin Negative, Urine Urobilinogen 0.2, Ur Leukocyte Esterase Negative, Urine RBC None, Urine WBC Occasional, Ur Squamous Epith Cells Occasional, Urine Bacteria Trace 03/19/23 08:58: VBG pH 7.29 L, VBG pCO2 51.3 H, VBG pO2 31.2, VBG HCO3 24.2, VBG Total CO2 25.8, VBG O2 Saturation 53.5, VBG Base Excess -2.3 03/19/23 12:35: Troponin I < 0.01 I & O for Last 24 hours: Intake & Output 03/17/23 03/18/23 03/19/23 03/20/23 11:59 11:59 11:59 11:59 Intake Total 1.417 / 1.417 36.333 / 36.333 Output Total 800 / 800 Balance 1.417 / 1.417 -763.667 / -763.667 Weight 250 lb Constitutional Constitutional: no acute distress *Routine HEENT Exam Head: Present normocephalic and atraumatic Eye: Present EOMI and PERRL ENT: Present mucous membranes dry *Routine Neck Exam Neck: Present supple and full ROM *Routine Respiratory Exam Respiratory: Present rhonchi and wheezes *Routine Cardiovascular Exam Cardiovascular: Present irregularly irregular *Routine Abdominal Exam Abdominal: Present soft, normoactive bowel sounds and distended; Absent tenderness *Routine Rectal Exam Rectal:: deferred *Routine Genitalia Exam Genitalia:: deferred *Routine Extremities Exam Extremities: Present edema (of the abdomen, scrotum, and bilateral upper and LE's) *Routine Skin Exam Skin: Present intact and erythema (both lower legs) Comments: necrotic appearing tissue over the tips of the left 4 th and 5 th digits *Routine Neurological Exam Neurological: Present alert, altered mental status and tremors H&P: Result Impressions CXR - No active cardiopulmonary disease. Lumbar spine CT - Moderate L1 and mild L3 compression fractures of uncertain age, favor chronic. If indicated, MRI may be helpful. Mild retroperitoneal adenopathy, may be reactive or neoplastic. Pelvic CT - no fracture Thoracic spine CT - no fracture Tib/fib x-ray - no fracture CTA - No evidence of pulmonary embolism or dissection. Small pleural effusions with mild bibasilar atelectasis. Diffuse anasarca. Mildly enlarged retrocrural nodes which may be reactive or neoplastic. Assessment and Plan *Assessment and plan (1) Atrial fibrillation with rapid ventricular response: Status: Acute Category: Medical Code(s): I48.91 - Unspecified atrial fibrillation (2) CHF (congestive heart failure): Status: Chronic Qualifiers: Heart failure chronicity: unspecified Heart failure type: unspecified Qualified Code(s): I50.9 - Heart failure, unspecified Category: Medical Code(s): I50.9 - Heart failure, unspecified (3) Anasarca: Status: Acute Category: Medical Code(s): R60.1 - Generalized edema (4) Necrotic ulceration of fingers: Status: Acute Category: Medical Code(s): I96 - Gangrene, not elsewhere classified (5) Tobacco use: Status: Acute Category: Social Hx Code(s): Z72.0 - Tobacco use (6) Alcoholism: Status: Acute Category: Medical Code(s): F10.20 - Alcohol dependence, uncomplicated (7) COPD (chronic obstructive pulmonary disease): Status: Chronic Category: Medical Code(s): J44.9 - Chronic obstructive pulmonary disease, unspecified (8) Pulmonary hypertension: Status: Chronic Category: Medical Code(s): I27.20 - Pulmonary hypertension, unspecified (9) Cirrhosis, alcoholic: Status: Chronic Category: Medical Code(s): K70.30 - Alcoholic cirrhosis of liver without ascites (10) Hypertension: Status: Chronic Qualifiers: Hypertension type: unspecified Qualified Code(s): I10 - Essential (primary) hypertension Category: Medical Code(s): I10 - Essential (primary) hypertension (11) Anxiety: Status: Acute Category: Medical Code(s): F41.9 - Anxiety disorder, unspecified (12) GERD (gastroesophageal reflux disease): Status: Acute Category: Medical Code(s): K21.9 - Gastro-esophageal reflux disease without esophagitis (13) Hypothyroidism: Status: Chronic Category: Medical Code(s): E03.9 - Hypothyroidism, unspecified Plan Patient has been started on withdrawal protocol and a nictoine patch. Will discuss necrosis of fingers with Dr. Bridges. Cardiology has seen the patient with the following plan: PAF chadsvasc score 2 -Started on Dilt drip with improvement in heart rate -Given reduced EF we will stop diltiazem drip and start oral Digoxin 125 mcg daily for rate control -Continue home dose of metoprolol 50 mg p.o. twice daily -Resume Eliquis 5 mg p.o. twice daily Acute on chronic right sided heart failure Pulmonary HTN Anasarca/volume overload -History of historically normal ejection fraction -Preliminary echo report shows: EF of 30% with septal regional wall abnormality noted. RV is severely dilated and dysfunctional. Moderate TR. Small pericardial effusion -Given reduced ejection fraction and wall motion abnormalities will consider left heart cath prior to discharge or on an outpatient basis once patient has fully diuresed. -Continue Bumex drip, repeat cmp at 1900 -Strict I's and O's with Marsh catheter -CTA chest pending -Will add Entresto, Jardiance, Aldactone after patient is fully diuresed. Dr. Bridges entry - Saw patient, agree with above note. Will request general surgery evaluate finger tips.
[2023-03-19] MEDS: DIGOXIN 0.125MG TABLET 125 MCG PO (14:16)
--- NOTE | 2023-03-19 14:23 | PC.NURSE ---
Report given to HORTENCIA Recinos on second floor.
--- NOTE | 2023-03-19 14:34 | PC.NURSE ---
arrived to floor from ED
[2023-03-19] MEDS: METOPROLOL TARTRATE 5MG/5ML VIAL 5 MG IV (15:07)
[2023-03-19] MEDS: OXAZEPAM 15 MG CAPSULE 30 MG PO (15:52)
[2023-03-19] MEDS: MULTIVITAMIN TABLET 1 EACH PO (15:54)
[2023-03-19] MEDS: THIAMINE 100MG TABLET 100 MG PO (15:54)
[2023-03-19 16:06] LABS: Troponin I < 0.01 ng/ml (0.00-0.034)
--- NOTE | 2023-03-19 18:06 | PC.NURSE ---
pt unable to complete med rec
[2023-03-19] MEDS: NICOTINE 21MG/24HR PATCH 21 MG TD (18:54)
[2023-03-19] MEDS: METOPROLOL TARTRATE 50MG TABLET 100 MG PO (20:44)
--- NOTE | 2023-03-19 22:12 | PC.NURSE ---
Contacted Dr. Bridges about Pt CIWA of 6, and serax not due at this time per MD order, Dr. Bridges advised to give pt medication at 6 hour jeffy, but to give if needed sooner upon increased symptoms.
[2023-03-20] VITALS (14 sets, daily range): BP systolic 97–142; BP diastolic 64–81; PULSE 55–150; RESP 18–20; TEMP 36.6–37.2; O2SAT 91–99; BMI 32.3
[2023-03-20] MEDS: OXAZEPAM 15 MG CAPSULE PO ×2 (00:23→08:43)
--- NOTE | 2023-03-20 04:25 | PC.NURSE ---
Pt is alert and oriented x4, and currently tolerating 3L of O2 and is sating at 97%. Pt HR increased to 140-150 range early in the shift. MD notified and orders received for treatment. Pt HR is now ranging from 108- 120. Pt CIWA scores this shift are 6, 4, 3. Pt has been treated per MAR once this shift with serax. Pt remains swollen and has had a large amount of output thus far this shift. Pt also remains on telemetry and continues to stay in A-fib. Pt denies pain and other needs at this time.
[2023-03-20 06:27] LABS: Basophils % 0.5 % (0.1-2.0); Eosinophils # 0.2 K/mm3 (0.0-0.4); Eosinophils % 3.2 % (0.1-12.0); Hemoglobin 10.9 g/dL (14.1-18.0); Lymphocytes # 1.3 K/mm3 (0.7-4.5); Lymphocytes % 21.4 % (10-50); Mean Corpuscular Hemoglobin 32.7 pg (27.0-31.2); Mean Corpuscular Volume 102.3 fl (80-94); Mean Platelet Volume 7.7 fl (7.4-10.4); Monocytes # 0.8 K/mm3 (0.1-1.0); Monocytes % 12.7 % (1.7-9.3); Neutrophils # 3.7 K/mm3 (1.8-7.8); Neutrophils % 62.3 % (37.0-80.0); Platelet Count 447 K/mm3 (142-424); Red Blood Count 3.33 M/mm3 (4.60-6.20); Red Cell Distribution Width 16.2 % (11.5-17.5)
[2023-03-20 06:43] LABS: Alanine Aminotransferase 13 U/L (12-78); Albumin Level 2.5 g/dl (3.5-5.0); Albumin/Globulin Ratio 0.7 (1.1-1.8); Alkaline Phosphatase 218 U/L (38-126); Anion Gap 7.8 mEq/L (5-15); Aspartate Amino Transferase 26 U/L (17-59); Bilirubin,Total 0.4 mg/dl (0.2-1.3); Blood Urea Nitrogen 20 mg/dl (9-20); Calcium 7.3 mg/dl (8.4-10.2); Carbon Dioxide 30 mmol/L (22.0-30.0); Chloride 101 mmol/L (98-107); Creatinine Clearance Estimated 114 mL/min (50-200); Estimated Glomerular Filt Rate 69 ml/min (>60); GFR (African American) 83 ML/MIN (>60); Globulin 3.7 g/dL (1.3-3.2); Glucose 75 mg/dl (74-100); Potassium 3.8 mmoL/L (3.5-5.1); Sodium 135 mmol/L (136-145); Total Protein,Serum 6.2 g/dl (6.3-8.2)
--- NOTE | 2023-03-20 07:29 | HMH.PHAINT1 ---
Pharmacy Intervention Comments: Home med list verified with patient at bedside with RX bottles from home, and with external pharmacy.
[2023-03-20] MEDS: NICOTINE 21MG/24HR PATCH 21 MG TD (08:22)
[2023-03-20] MEDS: METOPROLOL TARTRATE 5MG/5ML VIAL 5 MG IV ×3 (08:22→19:36)
[2023-03-20] MEDS: FOLIC ACID 1MG TABLET 1 MG PO (08:22)
[2023-03-20] MEDS: THIAMINE 100MG TABLET 100 MG PO (08:22)
--- NOTE | 2023-03-20 08:33 | EXP.ACUTE.PN ---
Subjective *Date: 03/20/23 *Time: 08:46 Interval history: Patient has less tremor today. Eating lots of candy. Still has quite a bit of SOA. Wheezing more this am and has a cough. Has pain with urination due to scrotal edema. Medical Exam Vital signs and Labs for Last 24 Hours: Vital Signs Temp Pulse Pulse Resp BP BP Pulse Ox 03/20/23 08:00 98.9 F 76 20 127/74 92 L 03/20/23 04:00 120 H 03/20/23 04:00 98.1 F 108 H 18 97/64 L 97 03/20/23 06:54 03/20/23 04:42 03/20/23 03:00 03/20/23 00:00 100 H 03/20/23 00:00 98.1 F 109 H 18 142/78 H 98 03/19/23 20:30 148 H 03/20/23 00:32 03/19/23 23:00 03/19/23 21:00 03/19/23 20:00 130 H 03/19/23 20:00 97.9 F 130 H 20 143/99 H 96 03/19/23 19:49 119 H 93 L 03/19/23 19:30 03/19/23 16:00 03/19/23 17:00 03/19/23 15:00 03/19/23 16:00 120 H 03/19/23 16:00 98.6 F 115 H 20 111/80 91 L 03/19/23 14:41 109 H 03/19/23 14:37 98.0 F 89 15 116/86 03/19/23 13:00 52 L 21 97/75 L 98 03/19/23 12:30 52 L 15 116/86 99 03/19/23 12:01 89 28 H 107/73 L 97 03/19/23 11:30 110 H 22 126/92 H 96 03/19/23 11:00 60 23 123/81 98 03/19/23 10:35 61 23 114/84 97 03/19/23 10:00 145 H 24 142/97 H 96 03/19/23 09:51 149 H 19 149/75 H 95 03/19/23 09:42 153 H 29 H 126/102 H 96 03/19/23 09:22 60 22 111/82 92 L 03/19/23 09:13 150 H 27 H 109/85 L 95 03/19/23 08:48 173 H 112/88 98 03/19/23 09:17 03/19/23 08:47 98.3 F 156 H 26 H 112/88 80 L O2 Del Method O2 Flow Rate FiO2 03/20/23 08:00 Nasal Cannula 3 03/20/23 04:00 03/20/23 04:00 03/20/23 06:54 Nasal Cannula 3 03/20/23 04:42 Nasal Cannula 3 03/20/23 03:00 Nasal Cannula 3 03/20/23 00:00 03/20/23 00:00 03/19/23 20:30 03/20/23 00:32 Nasal Cannula 3 03/19/23 23:00 Nasal Cannula 3 03/19/23 21:00 Nasal Cannula 3 03/19/23 20:00 03/19/23 20:00 03/19/23 19:49 Nasal Cannula 3 03/19/23 19:30 Nasal Cannula 3 03/19/23 16:00 Nasal Cannula 3 03/19/23 17:00 Nasal Cannula 3 03/19/23 15:00 Nasal Cannula 3 03/19/23 16:00 03/19/23 16:00 Nasal Cannula 3 03/19/23 14:41 03/19/23 14:37 03/19/23 13:00 Nasal Cannula 3 03/19/23 12:30 03/19/23 12:01 Nasal Cannula 3 03/19/23 11:30 Nasal Cannula 3 03/19/23 11:00 03/19/23 10:35 03/19/23 10:00 Nasal Cannula 3 03/19/23 09:51 Nasal Cannula 3 03/19/23 09:42 Nasal Cannula 3 03/19/23 09:22 03/19/23 09:13 Nasal Cannula 3 03/19/23 08:48 Nasal Cannula 3 03/19/23 09:17 35 03/19/23 08:47 Room Air Intake and Output 03/19/23 03/20/23 03/20/23 19:59 03:59 11:59 Intake Total 631.333 / 1351.333 240 / 1351.333 480 / 1351.333 Output Total 1425 / 5825 2900 / 5825 1500 / 5825 Balance -793.667 / -4473.667 -2660 / -4473.667 -1020 / -4473.667 Intake: Intake, Oral Amount 595 / 1315 240 / 1315 480 / 1315 Intake, Total IV Amount 36.333 / 36.333 Output: Output, Urine Amount 625 / 5025 2900 / 5025 1500 / 5025 Output, Urine Amount (Catheter) 800 / 800 Marsh 800 / 800 Other: Number of Unmeasured Voids 1 1 Weight 243 lb 12.8 oz Patient Weight 03/20/23 11:59 Weight 243 lb 12.8 oz Laboratory Results - last 24 hr 03/19/23 08:40: D-Dimer 1.26 H 03/19/23 08:45: WBC 6.5, RBC 3.48 L, Hgb 11.4 L, Hct 36.7 L, MCV 105.5 H, MCH 32.8 H, MCHC 31.1 L, RDW 16.2, Plt Count 476 H, MPV 7.9, Neut % (Auto) 67.4, Lymph % (Auto) 22.6, [place] % (Auto) 6.9, Eos % (Auto) 2.2, Baso % (Auto) 0.9, Neut # (Auto) 4.4, Lymph # (Auto) 1.5, [place] # (Auto) 0.5, Eos # (Auto) 0.1, Baso # (Auto) 0.1, PT 12.4, INR 1.16 H, Sodium 139, Potassium 4.7, Chloride 105, Carbon Dioxide 28, Anion Gap 10.7, BUN 22 H, Creatinine 1.10, Estimated Creat Clear 117, Estimated GFR 69, Est GFR ( Amer) 83, Glucose 94, Calcium 7.8 L, Total Bilirubin 0.5, AST 33, ALT 18, Alkaline Phosphatase 262 H, Ammonia 16, Troponin I < 0.01, NT-Pro-B Natriuret Pep 63201 H, Total Protein 6.6, Albumin 2.8 L, Globulin 3.8 H, Albumin/Globulin Ratio 0.7 L, SARS-CoV-2 (PCR) Not detected, Influenza A Untype (PCR) Not detected, Influenza Type B (PCR) Not detected 03/19/23 08:50: Urine Color Yellow, Urine Appearance Clear, Urine pH 6.0, Ur Specific [place] 1.025, Urine Protein Negative, Urine Glucose (UA) Negative, Urine Ketones Negative, Urine Blood Negative, Urine Nitrate Negative, Urine Bilirubin Negative, Urine Urobilinogen 0.2, Ur Leukocyte Esterase Negative, Urine RBC None, Urine WBC Occasional, Ur Squamous Epith Cells Occasional, Urine Bacteria Trace 03/19/23 08:58: VBG pH 7.29 L, VBG pCO2 51.3 H, VBG pO2 31.2, VBG HCO3 24.2, VBG Total CO2 25.8, VBG O2 Saturation 53.5, VBG Base Excess -2.3 03/19/23 12:35: Troponin I < 0.01 03/19/23 15:30: Troponin I < 0.01 03/20/23 05:27: WBC 6.0, RBC 3.33 L, Hgb 10.9 L, Hct 34.0 L, MCV 102.3 H, MCH 32.7 H, MCHC 32.0, RDW 16.2, Plt Count 447 H, MPV 7.7, Neut % (Auto) 62.3, Lymph % (Auto) 21.4, [place] % (Auto) 12.7 H, Eos % (Auto) 3.2, Baso % (Auto) 0.5, Neut # (Auto) 3.7, Lymph # (Auto) 1.3, [place] # (Auto) 0.8, Eos # (Auto) 0.2, Baso # (Auto) 0.0, Sodium 135 L, Potassium 3.8, Chloride 101, Carbon Dioxide 30, Anion Gap 7.8, BUN 20, Creatinine 1.10, Estimated Creat Clear 114, Estimated GFR 69, Est GFR ( Amer) 83, Glucose 75 D, Calcium 7.3 L, Total Bilirubin 0.4, AST 26, ALT 13 D, Alkaline Phosphatase 218 H, Total Protein 6.2 L, Albumin 2.5 L D, Globulin 3.7 H, Albumin/Globulin Ratio 0.7 L I & O for Labs for Last 24 Hours: Intake & Output 03/17/23 03/18/23 03/19/23 03/20/23 11:59 11:59 11:59 11:59 Intake Total 1.417 / 1.417 1351.333 / 1351.333 Output Total 5825 / 5825 Balance 1.417 / 1.417 -4473.667 / -4473.667 Weight 250 lb 243 lb 12.8 oz Constitutional: Present no acute distress Respiratory: Present wheezes Comment:: Irregularly irregular, rate still in the 120-130's GI: Present soft, distention and normal bowel sounds; Absent tenderness Extremities: Present edema (bilateral upper and lower extremities and scrotum) and other (left 4th and 5th digits are black and sutures are still in place from previous laceration repair); Absent clubbing or cyanosis Skin: Present intact Neuro: Present Other (still with a tremor but it has improved), alert and awake Assessment and Plan *Assessment and plan (1) Atrial fibrillation with rapid ventricular response: Status: Acute Category: Medical Code(s): I48.91 - Unspecified atrial fibrillation (2) CHF (congestive heart failure): Status: Chronic Qualifiers: Heart failure chronicity: unspecified Heart failure type: unspecified Qualified Code(s): I50.9 - Heart failure, unspecified Category: Medical Code(s): I50.9 - Heart failure, unspecified (3) Anasarca: Status: Acute Category: Medical Code(s): R60.1 - Generalized edema (4) Necrotic ulceration of fingers: Status: Acute Category: Medical Code(s): I96 - Gangrene, not elsewhere classified (5) Tobacco use: Status: Acute Category: Social Hx Code(s): Z72.0 - Tobacco use (6) Alcoholism: Status: Acute Category: Medical Code(s): F10.20 - Alcohol dependence, uncomplicated (7) COPD (chronic obstructive pulmonary disease): Status: Chronic Category: Medical Code(s): J44.9 - Chronic obstructive pulmonary disease, unspecified (8) Pulmonary hypertension: Status: Chronic Category: Medical Code(s): I27.20 - Pulmonary hypertension, unspecified (9) Cirrhosis, alcoholic: Status: Chronic Category: Medical Code(s): K70.30 - Alcoholic cirrhosis of liver without ascites (10) Hypertension: Status: Chronic Qualifiers: Hypertension type: unspecified Qualified Code(s): I10 - Essential (primary) hypertension Category: Medical Code(s): I10 - Essential (primary) hypertension (11) Anxiety: Status: Acute Category: Medical Code(s): F41.9 - Anxiety disorder, unspecified (12) GERD (gastroesophageal reflux disease): Status: Acute Category: Medical Code(s): K21.9 - Gastro-esophageal reflux disease without esophagitis (13) Hypothyroidism: Status: Chronic Category: Medical Code(s): E03.9 - Hypothyroidism, unspecified Plan Will order nebs today due to wheezing and cough. Cardiology to follow. He is diuresing. Trying to obtain an ortho consult for patient's fingers. Dr. Bridges entry - Saw patient, agree with above note. Patient is more alert today. Ortho has seen patient before about his fingers, consulting Dr. Rivas today.
--- NOTE | 2023-03-20 08:56 | P.CONS_ITS ---
History of Present Illness *Admission Date: 03/19/23 *History of present illness: Patient is a 58-year-old male with past medical history of alcoholism (1 pint a day for multiple decades), last use last week, hypothyroidism, atrial fibrillation not on anticoagulation although prescribed anticoagulation, CHF, pulmonary hypertension, hypertension who presents emergency department for evaluation of multiple complaints. Over the last year patient has had progressive swelling of his lower extremities mild swelling of his abdomen. Over the last 48 hours he has had rapid swelling of his scrotum, abdomen has become tense with associated shortness of breath and cough. Patient is still voiding although decreased from baseline. He also had a mechanical fall onto his back and left side resulting in pain over his left hip, left verma, midline lower back. Due to this he called 911 and presents here for continued evaluation. Patient denies chest pain, however does have significant shortness of breath. Patient is known to me from the clinic from previous laceration of his ring finger and small finger on the left side. He last saw me approximate 1 month ago in the clinic was supposed to come back to have sutures removed sutures remain in place currently [facility] Disclaimer: The information contained in this section may have been updated after the patient was seen, as this information can be updated by other users. Medical History Alcoholism Anxiety Atrial fibrillation with rapid ventricular response CHF (congestive heart failure) Cirrhosis, alcoholic COPD (chronic obstructive pulmonary disease) GERD (gastroesophageal reflux disease) Hypertension Paroxysmal atrial fibrillation Pulmonary hypertension Tobacco use Surgical History (Updated 03/19/23 @ 13:59 by AMARILIS Yeager) History of cardiac radiofrequency ablation History of discectomy Family History (Updated 03/19/23 @ 13:59 by AMARILIS Yeager) Other Cancer Hypertension Stroke Substance abuse Social History (Updated 03/19/23 @ 16:46 by AMARILIS Yeager) Smoking Status: Current every day smoker tobacco type: cigarettes packs per day: 2 alcohol intake: current current occupational status: employed Travel in the last 8 weeks: None household members: significant other housing: house 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 current occupational exposures/hazards: No caffeine: Yes Review of Systems Constitutional Constitutional: Reports frequent falls, Reports headache(s) and Reports weakness ENT Ears, Nose, Mouth, and Throat: Reports headache(s) and Reports vertigo *Neurologic Neurologic: Reports frequent falls, Reports headache(s), Reports vertigo and Reports weakness Meds Home Medications and Allergies Home Medications Medication Instructions Recorded Confirmed Type sertraline 100 mg tablet 100 mg PO DAILY 07/23/21 03/19/23 History trazodone 100 mg tablet 100 mg PO HS PRN Sleep 07/23/21 03/19/23 History ipratropium 0.5 mg-albuterol 3 mg 3 ml inhalation QID 08/13/21 03/20/23 History (2.5 mg base)/3 mL nebulization soln apixaban 5 mg tablet 5 mg PO BID 08/24/21 03/19/23 History diltiazem HCl 240 mg 240 mg PO DAILY 08/24/21 03/19/23 History capsule,extended release 24 hr metoprolol tartrate 50 mg tablet 50 mg PO BID 08/24/21 03/19/23 History albuterol sulfate 90 mcg/actuation 2 puff inhalation Q6H PRN 03/20/23 03/20/23 History aerosol inhaler (Ventolin HFA) Shortness Of Breath benzonatate 200 mg capsule 200 mg PO TID PRN Cough 03/20/23 03/20/23 History loperamide 2 mg tablet 2 mg PO QID PRN Diarrhea 03/20/23 03/20/23 History oxazepam 15 mg capsule 15 mg PO BID PRN Anxiety 03/20/23 03/20/23 History New Prescriptions to Start Prescriptions: Allergies Allergy/AdvReac Type Severity Reaction Status Date / Time hydrochlorothiazide AdvReac Unknown Other Verified 02/13/23 09:13 Ortho Exam (Inpt) Vital signs and Labs for Last 24 Hours: Temp Pulse Resp BP Pulse Ox O2 Del Method O2 Flow Rate 98.9 F 76 20 127/74 92 L Nasal Cannula 2 03/20/23 08:00 03/20/23 08:00 03/20/23 08:00 03/20/23 08:00 03/20/23 08:00 03/20/23 08:53 03/20/23 08:53 FiO2 35 03/19/23 09:17 Laboratory Results - last 24 hr 03/19/23 08:40: D-Dimer 1.26 H 03/19/23 08:45: WBC 6.5, RBC 3.48 L, Hgb 11.4 L, Hct 36.7 L, MCV 105.5 H, MCH 32.8 H, MCHC 31.1 L, RDW 16.2, Plt Count 476 H, MPV 7.9, Neut % (Auto) 67.4, Lymph % (Auto) 22.6, [place] % (Auto) 6.9, Eos % (Auto) 2.2, Baso % (Auto) 0.9, Neut # (Auto) 4.4, Lymph # (Auto) 1.5, [place] # (Auto) 0.5, Eos # (Auto) 0.1, Baso # (Auto) 0.1, PT 12.4, INR 1.16 H, Sodium 139, Potassium 4.7, Chloride 105, Carbon Dioxide 28, Anion Gap 10.7, BUN 22 H, Creatinine 1.10, Estimated Creat Clear 117, Estimated GFR 69, Est GFR ( Amer) 83, Glucose 94, Calcium 7.8 L, Total Bilirubin 0.5, AST 33, ALT 18, Alkaline Phosphatase 262 H, Ammonia 16, Troponin I < 0.01, NT-Pro-B Natriuret Pep 86317 H, Total Protein 6.6, Albumin 2.8 L, Globulin 3.8 H, Albumin/Globulin Ratio 0.7 L, SARS-CoV-2 (PCR) Not detected, Influenza A Untype (PCR) Not detected, Influenza Type B (PCR) Not detected 03/19/23 08:50: Urine Color Yellow, Urine Appearance Clear, Urine pH 6.0, Ur Specific [place] 1.025, Urine Protein Negative, Urine Glucose (UA) Negative, Urine Ketones Negative, Urine Blood Negative, Urine Nitrate Negative, Urine Bilirubin Negative, Urine Urobilinogen 0.2, Ur Leukocyte Esterase Negative, Urine RBC None, Urine WBC Occasional, Ur Squamous Epith Cells Occasional, Urine Bacteria Trace 03/19/23 08:58: VBG pH 7.29 L, VBG pCO2 51.3 H, VBG pO2 31.2, VBG HCO3 24.2, VBG Total CO2 25.8, VBG O2 Saturation 53.5, VBG Base Excess -2.3 03/19/23 12:35: Troponin I < 0.01 03/19/23 15:30: Troponin I < 0.01 03/20/23 05:27: WBC 6.0, RBC 3.33 L, Hgb 10.9 L, Hct 34.0 L, MCV 102.3 H, MCH 32.7 H, MCHC 32.0, RDW 16.2, Plt Count 447 H, MPV 7.7, Neut % (Auto) 62.3, Lymph % (Auto) 21.4, [place] % (Auto) 12.7 H, Eos % (Auto) 3.2, Baso % (Auto) 0.5, Neut # (Auto) 3.7, Lymph # (Auto) 1.3, [place] # (Auto) 0.8, Eos # (Auto) 0.2, Baso # (Auto) 0.0, Sodium 135 L, Potassium 3.8, Chloride 101, Carbon Dioxide 30, Anion Gap 7.8, BUN 20, Creatinine 1.10, Estimated Creat Clear 114, Estimated GFR 69, Est GFR ( Amer) 83, Glucose 75 D, Calcium 7.3 L, Total Bilirubin 0.4, AST 26, ALT 13 D, Alkaline Phosphatase 218 H, Total Protein 6.2 L, Albumin 2.5 L D, Globulin 3.7 H, Albumin/Globulin Ratio 0.7 L I & O for Labs for Last 24 Hours: Intake & Output 03/17/23 03/18/23 03/19/23 03/20/23 23:59 23:59 23:59 23:59 Intake Total 872.750 / 872.750 480 / 480 Output Total 4325 / 4325 1500 / 1500 Balance -3452.250 / -3452.250 -1020 / -1020 Weight 250 lb 243 lb 12.8 oz Comment:: Left hand: The laceration of the tip of the ring finger is significantly improved. There is capillary refill and no discoloration of the tip. Mild pain with motion Small finger has a volar necrotic tip this area is about half the size of the previous necrotic area that was present upon presentation last month. There are couple sutures still in place. There is no active gangrene or infection or evidence of osteomyelitis present Results Labs 03/20/23 05:27 03/20/23 05:27 Labs: Abnormal lab results 03/19/23 03/19/23 03/19/23 Range/Units 08:40 08:45 08:58 RBC 3.48 L (4.60-6.20) M/mm3 Hgb 11.4 L (14.1-18.0) g/dL Hct 36.7 L (42.0-52.0) % MCV 105.5 H (80-94) fl MCH 32.8 H (27.0-31.2) pg MCHC 31.1 L (31.8-35.4) g/dL Plt Count 476 H (142-424) K/mm3 [place] % (Auto) (1.7-9.3) % INR 1.16 H (0.9-1.1) D-Dimer 1.26 H (0.0-0.5) ug/mL VBG pH 7.29 L (7.31-7.41) mmol/L VBG pCO2 51.3 H (35-51) mmol/L Sodium (136-145) mmol/L BUN 22 H (9-20) mg/dl Calcium 7.8 L (8.4-10.2) mg/dl Alkaline Phosphatase 262 H (38-126) U/L NT-Pro-B Natriuret Pep 70234 H (0-125) pg/mL Total Protein (6.3-8.2) g/dl Albumin 2.8 L (3.5-5.0) g/dl Globulin 3.8 H (1.3-3.2) g/dL Albumin/Globulin Ratio 0.7 L (1.1-1.8) 03/20/23 Range/Units 05:27 RBC 3.33 L (4.60-6.20) M/mm3 Hgb 10.9 L (14.1-18.0) g/dL Hct 34.0 L (42.0-52.0) % MCV 102.3 H (80-94) fl MCH 32.7 H (27.0-31.2) pg MCHC (31.8-35.4) g/dL Plt Count 447 H (142-424) K/mm3 [place] % (Auto) 12.7 H (1.7-9.3) % INR (0.9-1.1) D-Dimer (0.0-0.5) ug/mL VBG pH (7.31-7.41) mmol/L VBG pCO2 (35-51) mmol/L Sodium 135 L (136-145) mmol/L BUN (9-20) mg/dl Calcium 7.3 L (8.4-10.2) mg/dl Alkaline Phosphatase 218 H (38-126) U/L NT-Pro-B Natriuret Pep (0-125) pg/mL Total Protein 6.2 L (6.3-8.2) g/dl Albumin 2.5 L D (3.5-5.0) g/dl Globulin 3.7 H (1.3-3.2) g/dL Albumin/Globulin Ratio 0.7 L (1.1-1.8) H & H 03/19/23 03/20/23 Range/Units 08:45 05:27 Hgb 11.4 L 10.9 L (14.1-18.0) g/dL Hct 36.7 L 34.0 L (42.0-52.0) % Coagulation 03/19/23 Range/Units 08:45 INR 1.16 H (0.9-1.1) All other labs normal. Assessment and Plan *Assessment and plan (1) Laceration of finger, left, complicated: Problem Comment: Small and ring fingers. Status: Acute Category: Medical Code(s): S61.219A - Laceration without foreign body of unspecified finger without damage to nail, initial encounter Plan There has been significant clinical improvement of the ring finger. Will remove the stitches from the small finger. There is a small volar aspect of necrotic area over the tip of the small finger. No evidence of active infection or drainage. This has clinically improved since last month when he was in the clinic. Will continue to monitor this and allow this area to show monitor for healing under the necrotic scab there is no evidence of exposed bone or acute need for revision amputation at this point. Will continue to follow clinically there may be a need for surgical intervention in regards to the tip of the small finger if there is evidence of infection.
--- NOTE | 2023-03-20 08:57 | P.PN_ITS ---
Subjective Subjective Date: 03/20/23 Time: 08:57 Principal diagnosis: Volume overload, A-fib RVR Interval history: Patient doing well this morning. Patient has diuresed over 3700 mL. Labs reviewed and remained stable. Patient remains in A-fib RVR with rate less than 120. Exam Data for Last 24 hours Vital signs and Labs for Last 24 Hours: Temp Pulse Resp BP Pulse Ox O2 Del Method O2 Flow Rate 98.9 F 76 20 127/74 92 L Nasal Cannula 2 03/20/23 08:00 03/20/23 08:00 03/20/23 08:00 03/20/23 08:00 03/20/23 08:00 03/20/23 08:53 03/20/23 08:53 FiO2 35 03/19/23 09:17 Laboratory Results - last 24 hr 03/19/23 08:40: D-Dimer 1.26 H 03/19/23 08:45: WBC 6.5, RBC 3.48 L, Hgb 11.4 L, Hct 36.7 L, MCV 105.5 H, MCH 32.8 H, MCHC 31.1 L, RDW 16.2, Plt Count 476 H, MPV 7.9, Neut % (Auto) 67.4, Lymph % (Auto) 22.6, [place] % (Auto) 6.9, Eos % (Auto) 2.2, Baso % (Auto) 0.9, Neut # (Auto) 4.4, Lymph # (Auto) 1.5, [place] # (Auto) 0.5, Eos # (Auto) 0.1, Baso # (Auto) 0.1, PT 12.4, INR 1.16 H, Sodium 139, Potassium 4.7, Chloride 105, Carbon Dioxide 28, Anion Gap 10.7, BUN 22 H, Creatinine 1.10, Estimated Creat Clear 117, Estimated GFR 69, Est GFR ( Amer) 83, Glucose 94, Calcium 7.8 L, Total Bilirubin 0.5, AST 33, ALT 18, Alkaline Phosphatase 262 H, Ammonia 16, Troponin I < 0.01, NT-Pro-B Natriuret Pep 62353 H, Total Protein 6.6, Albumin 2.8 L, Globulin 3.8 H, Albumin/Globulin Ratio 0.7 L, SARS-CoV-2 (PCR) Not detected, Influenza A Untype (PCR) Not detected, Influenza Type B (PCR) Not detected 03/19/23 08:50: Urine Color Yellow, Urine Appearance Clear, Urine pH 6.0, Ur Specific [place] 1.025, Urine Protein Negative, Urine Glucose (UA) Negative, Urine Ketones Negative, Urine Blood Negative, Urine Nitrate Negative, Urine Bilirubin Negative, Urine Urobilinogen 0.2, Ur Leukocyte Esterase Negative, Urine RBC None, Urine WBC Occasional, Ur Squamous Epith Cells Occasional, Urine Bacteria Trace 03/19/23 08:58: VBG pH 7.29 L, VBG pCO2 51.3 H, VBG pO2 31.2, VBG HCO3 24.2, VBG Total CO2 25.8, VBG O2 Saturation 53.5, VBG Base Excess -2.3 03/19/23 12:35: Troponin I < 0.01 03/19/23 15:30: Troponin I < 0.01 03/20/23 05:27: WBC 6.0, RBC 3.33 L, Hgb 10.9 L, Hct 34.0 L, MCV 102.3 H, MCH 32.7 H, MCHC 32.0, RDW 16.2, Plt Count 447 H, MPV 7.7, Neut % (Auto) 62.3, Lymph % (Auto) 21.4, [place] % (Auto) 12.7 H, Eos % (Auto) 3.2, Baso % (Auto) 0.5, Neut # (Auto) 3.7, Lymph # (Auto) 1.3, [place] # (Auto) 0.8, Eos # (Auto) 0.2, Baso # (Auto) 0.0, Sodium 135 L, Potassium 3.8, Chloride 101, Carbon Dioxide 30, Anion Gap 7.8, BUN 20, Creatinine 1.10, Estimated Creat Clear 114, Estimated GFR 69, Est GFR ( Amer) 83, Glucose 75 D, Calcium 7.3 L, Total Bilirubin 0.4, AST 26, ALT 13 D, Alkaline Phosphatase 218 H, Total Protein 6.2 L, Albumin 2.5 L D, Globulin 3.7 H, Albumin/Globulin Ratio 0.7 L I & O for Last 24 hours: Intake & Output 01/15/24 01/16/24 01/17/24 01/18/24 23:59 23:59 23:59 23:59 Intake Total 872.750 / 872.750 480 / 480 Output Total 4325 / 4325 1500 / 1500 Balance -3452.250 / -3452.250 -1020 / -1020 Weight 250 lb 243 lb 12.8 oz Constitutional Constitutional: no acute distress *Routine Respiratory Exam Respiratory: Present wheezes and symmetric chest movement *Routine Cardiovascular Exam Cardiovascular: Present Normal S1, Normal S2, irregular rhythm and irregularly irregular *Routine Abdominal Exam Abdominal: Present normoactive bowel sounds, tenderness and distended Comments: Anasarca is improving but still present *Routine Extremities Exam Extremities: Present edema, full ROM and normal capillary refill *Routine Skin Exam Skin: Present intact, dry and warm Detailed Neck Exam: Thyroids Thyroid: Absent bruit Progress Note: A&P Assessment and plan (1) Atrial fibrillation with rapid ventricular response: Status: Acute (2) CHF (congestive heart failure): Status: Chronic (3) Anasarca: Status: Acute (4) Necrotic ulceration of fingers: Status: Acute (5) Tobacco use: Status: Acute (6) Alcoholism: Status: Acute (7) COPD (chronic obstructive pulmonary disease): Status: Chronic (8) Pulmonary hypertension: Status: Chronic (9) Cirrhosis, alcoholic: Status: Chronic (10) Hypertension: Status: Chronic (11) Anxiety: Status: Acute (12) GERD (gastroesophageal reflux disease): Status: Acute (13) Hypothyroidism: Status: Chronic Assessment and Plan Assessment and Plan for All Diagnoses:: PAF chadsvasc score 2 -Started on Dilt drip with improvement in heart rate -Given reduced EF we will stop diltiazem drip and start oral Digoxin 125 mcg daily for rate control -Continue home dose of metoprolol 50 mg p.o. twice daily -Resume Eliquis 5 mg p.o. twice daily 03/20/2022: stil afib rvr, will increase dig to 250mcg daily and Metoprolol to 100mg TID. Acute on chronic right sided heart failure Acute HFrEF/ EF 30% NYHA II-III Pulmonary HTN Anasarca/volume overload -History of historically normal ejection fraction -Echo report shows: EF of 30% with septal regional wall abnormality noted. RV is severely dilated and dysfunctional. Severe TR. Small pericardial effusion. Elevated RVSP >30 -Given reduced ejection fraction and wall motion abnormalities will consider left heart cath on an outpatient basis once patient has fully diuresed due to Biventricular failure -Continue Bumex drip -Strict I's and O's with Marsh catheter -CTA chest negative for pulmonary embolism or dissection, small pleural effusions with mild bibasilar atelectasis present. Diffuse anasarca. Mildly enlarged retrocrural nodes which may be reactive or neoplastic. -Will add Entresto, Jardiance, Aldactone after patient is fully diuresed. -As of 904 today patient has diuresed 3700 mLs -Will fit for LifeVest today given EF 30% History of alcohol abuse Alcoholic cirrhosis -Defer to primary service Tobacco use -Smoking cessation advised CV summary 03/20/2023: Continue to diurese with Bumex drip. Continue digoxin at increased dose of 250 mcg p.o. daily and Metoprolol 100mg TID. Patient will be fitted with LifeVest today.
[2023-03-20] MEDS: IPRATROPIUM/ALBUTEROL 3 ML NEB IH ×3 (09:04→19:19)
[2023-03-20] MEDS: DIGOXIN 0.125MG TABLET 125 MCG PO ×2 (09:26→13:15)
[2023-03-20] MEDS: METOPROLOL TARTRATE 50MG TABLET 50 MG PO ×2 (09:26→15:08)
--- NOTE | 2023-03-20 10:16 | PC.NURSE ---
PT HAS REFUSED SEIZURE PADS, STATING THEY MAKE HIM FEEL CLAUSTROPHOBIC.
--- NOTE | 2023-03-20 15:36 | PC.NURSE ---
PT HR HAS WENT FROM 120S-160S THUS FAR THIS SHIFT. CARDIOLOGY MADE AWARE EACH TIME, MEDICATIONS GIVEN PER MAY. PT HR REMAINS THE SAME AT THIS TIME. CHAPO AND MD MELARA AT THE BEDSIDE AROUND 1515. STATE THEY ARE GOING TO INCREASE FREQUENCY AND DOSE OF METOPROLOL. ALSO ADDING PAIN MEDICATION FOR PT. NO OTHER PLANS AT THIS TIME, NOT GIVING DILTIAZEM D/T EF. WILL CONTINUE TO MONITOR PT HR. PT REMAINS ASYMPTOMATIC AT THIS TIME.
[2023-03-20] MEDS: OXYCODONE 5MG IMMEDIATE RELEASE TABLET 5 MG PO (16:01)
[2023-03-20] MEDS: MULTIVITAMIN TABLET 1 EACH PO (16:01)
[2023-03-20 18:32] LABS: Chloride 99 mmol/L (98-107); Sodium 135 mmol/L (136-145)
[2023-03-20 18:35] LABS: Blood Urea Nitrogen 21 mg/dl (9-20); Creatinine Clearance Estimated 97 mL/min (50-200); Estimated Glomerular Filt Rate 57 ml/min (>60); GFR (African American) 69 ML/MIN (>60)
[2023-03-20 18:36] LABS: Calcium 7.6 mg/dl (8.4-10.2); Carbon Dioxide 33 mmol/L (22.0-30.0); Glucose 114 mg/dl (74-100)
--- NOTE | 2023-03-20 18:40 | PC.NURSE ---
OTHER THAN HEART RATE, PT HAS HAD AN UNEVENTFUL DAY. A&OX4, WEANED TO RA, TOLERATING WELL. CIWA'S EVERY 4 HOURS, HAVE BEEN: 4,0,0. RECEIVED SERAX X1 THIS MORNING. PT STATED HE SAW RODENTS OUT OF THE CORNER OF HIS LEFT EYE, BUT HAS HAD NO SYMPTOMS SINCE. HAS BEEN IN BED T/O DAY, ENCOURAGED TO MOVE IN BED OR GET UP TO CHAIR, BUT PT HAS REFUSED. PT REMAINS EDEMATOUS IN MULTIPLE AREAS INCLUDING ABD, SCROTUM, BLE. PT HAS HAD A VERY LARGE APPETITE TODAY. F/C DRAINING LARGE AMOUNTS OF LIGHT YELLOW URINE T/O SHIFT. PT DID HAVE A LARGE BM, PT NOTED TO BE SEEPING UPON BED CHANGE. BOTTOM RED. PT HAS ALSO HAD INTERMITTENT NON-PRODUCTIVE COUGH. PT TX X1 PER MAR FOR BACK PAIN. EFFECTIVENESS NOTED UPON REASSESSMENT. NO OTHER NEEDS OR C/O NOTED THUS FAR. VSS, HR REMAINS FLUCTUATING, AT 128 AT THIS TIME.
[2023-03-20] MEDS: METOPROLOL TARTRATE 50MG TABLET 100 MG PO (20:25)
[2023-03-20] MEDS: APIXABAN 5MG TABLET 5 MG PO (20:25)
[2023-03-21] VITALS (10 sets, daily range): BP systolic 92–119; BP diastolic 67–85; PULSE 74–153; RESP 18–20; TEMP 36.5–37.4; O2SAT 94–99; BMI 32.1
[2023-03-21] MEDS: SODIUM CHLORIDE 0.9% IV ×2 (02:37→15:01)
[2023-03-21] MEDS: BUMETANIDE IV ×2 (02:37→15:01)
--- NOTE | 2023-03-21 04:29 | PC.NURSE ---
REMAINS IN AFIB/RVR BUT RATE HAS SLOWED FROM 140s TO 110s. HAS EXP WHEEZES AND DRY COUGH. CIWA SCORES HAVE BEEN 0. SEIZURE PRECAUTIONS. REFUSES TO ALLOW SIDE RAILS TO BE PADDED. SPEECH SLURRED AND DIFFICULT TO UNDERSTAND AT TIMES. HAS 2+ PITTING EDEMA LEG AND SCROTUM. F/C TO BSD, URINE CLEAR YELLOW. NO C/O PAIN, SOA OR DISCOMFORT. 02 SATS 91-96% ON ROOM AIR.
[2023-03-21] MEDS: IPRATROPIUM/ALBUTEROL 3 ML NEB IH ×3 (06:28→19:53)
[2023-03-21 08:10] LABS: Chloride 94 mmol/L (98-107); Potassium 3.6 mmoL/L (3.5-5.1); Sodium 134 mmol/L (136-145)
[2023-03-21 08:13] LABS: Anion Gap 4.6 mEq/L (5-15); Blood Urea Nitrogen 20 mg/dl (9-20); Carbon Dioxide 39 mmol/L (22.0-30.0); Creatinine Clearance Estimated 104 mL/min (50-200); Estimated Glomerular Filt Rate 62 ml/min (>60); GFR (African American) 75 ML/MIN (>60)
[2023-03-21 08:14] LABS: Glucose 106 mg/dl (74-100)
--- NOTE | 2023-03-21 08:32 | P.PN_ITS ---
Subjective *Date: 03/21/23 *Time: 08:45 Interval history: Patient is feeling better. Diuresing well. Denies any pain other than in his back from laying in the bed. Swelling has improved everywhere except his scrotum. SOA and wheezing have improved. Medical Exam Vital signs and Labs for Last 24 Hours: Vital Signs Temp Pulse Pulse Resp BP Pulse Ox O2 Del Method 03/21/23 08:00 97.7 F 114 H 20 119/85 98 Room Air 03/21/23 06:35 Room Air 03/21/23 06:29 103 H 03/21/23 06:29 106 H 03/21/23 04:46 Room Air 03/21/23 04:00 98.5 F 107 H 18 92/67 L 94 L Room Air 03/21/23 04:00 119 H 03/21/23 02:50 Room Air 03/21/23 00:50 Room Air 03/21/23 00:00 123 H 03/20/23 23:47 98 F 110 H 18 116/70 91 L Room Air 03/20/23 23:00 Room Air 03/20/23 21:00 Room Air 03/20/23 20:00 99 F 126 H 18 111/81 94 L Room Air 03/20/23 20:00 130 H 03/20/23 19:50 99 Room Air 03/20/23 19:40 140 H 03/20/23 19:19 55 L 03/20/23 19:19 55 L 03/20/23 18:38 Room Air 03/20/23 16:00 150 H 03/20/23 16:45 Room Air 03/20/23 16:00 99 Nasal Cannula 03/20/23 16:00 98.2 F 97 H 18 98/76 L 99 Nasal Cannula 03/20/23 14:33 Nasal Cannula 03/20/23 14:05 120 H 03/20/23 14:05 113 H 03/20/23 14:05 98 Nasal Cannula 03/20/23 13:15 130 H 03/20/23 12:00 120 H 03/20/23 12:56 Nasal Cannula 03/20/23 12:00 98.4 F 130 H 18 103/70 L 95 Nasal Cannula 03/20/23 10:56 Nasal Cannula 03/20/23 09:26 136 H 03/20/23 09:05 110 H 03/20/23 09:05 126 H 03/20/23 09:05 98 Nasal Cannula 03/20/23 08:53 Nasal Cannula 03/20/23 08:47 Room Air O2 Flow Rate 03/21/23 08:00 03/21/23 06:35 03/21/23 06:29 03/21/23 06:29 03/21/23 04:46 03/21/23 04:00 03/21/23 04:00 03/21/23 02:50 03/21/23 00:50 03/21/23 00:00 03/20/23 23:47 03/20/23 23:00 03/20/23 21:00 03/20/23 20:00 03/20/23 20:00 03/20/23 19:50 03/20/23 19:40 03/20/23 19:19 03/20/23 19:19 03/20/23 18:38 03/20/23 16:00 03/20/23 16:45 03/20/23 16:00 2 03/20/23 16:00 2 03/20/23 14:33 2 03/20/23 14:05 03/20/23 14:05 03/20/23 14:05 2 03/20/23 13:15 03/20/23 12:00 03/20/23 12:56 2 03/20/23 12:00 2 03/20/23 10:56 2 03/20/23 09:26 03/20/23 09:05 03/20/23 09:05 03/20/23 09:05 2 03/20/23 08:53 2 03/20/23 08:47 2 Intake and Output 03/20/23 03/21/23 03/21/23 19:59 03:59 11:59 Intake Total 1319 / 2184 265 / 2184 600 / 2184 Output Total 3150 / 6850 1700 / 6850 1999 / 50 Balance -1831 / -4666 -1435 / -4666 -1400 / -4666 Intake: Intake, Oral Amount 1160 / 2000 240 / 2000 600 / 2000 Intake, Total IV Amount 159 / 184 25 / 184 Bumetanide 25 mg In 0.9 % 159 / 184 25 / 184 Sodium Chloride 150 ml @ 5 mls/ hr IV .Q24H [facility] Rx#:[id number] Output: Output, Urine Amount 1350 / 5050 1700 / 5050 2000 / 5050 Output, Urine Amount (Catheter) 1800 / 1800 Marsh 1800 / 1800 Other: Number of Unmeasured Voids 0 Number of Bowel Movements 1 Weight 242 lb 9.6 oz Patient Weight 03/21/23 11:59 Weight 242 lb 9.6 oz Laboratory Results - last 24 hr 03/20/23 18:05: Sodium 135 L, Potassium 4.0, Chloride 99, Carbon Dioxide 33 H, Anion Gap 7.0, BUN 21 H, Creatinine 1.30 H, Estimated Creat Clear 97, Estimated GFR 57 L, Est GFR ( Amer) 69, Glucose 114 H D, Calcium 7.6 L 03/21/23 07:42: Sodium 134 L, Potassium 3.6, Chloride 94 L, Carbon Dioxide 39 H, Anion Gap 4.6 L, BUN 20, Creatinine 1.20, Estimated Creat Clear 104, Estimated GFR 62, Est GFR ( Amer) 75, Glucose 106 H, Calcium 8.0 L I & O for Labs for Last 24 Hours: Intake & Output 03/18/23 03/19/23 03/20/23 03/21/23 11:59 11:59 11:59 11:59 Intake Total 1.417 / 1.417 1351.333 / 2530.062 3815 / 2184 Output Total 7125 / 7125 6850 / 6850 Balance 1.417 / 1.417 -5773.667 / -5773.667 -4666 / -4666 Weight 250 lb 243 lb 12.8 oz 242 lb 9.6 oz Constitutional: Present no acute distress Respiratory: Present CTA bilaterally; Absent rhonchi or wheezes Comment:: Irregularly irregular, rate improved GI: Present soft, distention and normal bowel sounds; Absent tenderness (male): Present scrotal swelling Extremities: Present edema (improving in the upper and lower extremities) and other (left 4th and 5th digits are black and sutures are still in place from previous laceration repair); Absent clubbing or cyanosis Skin: Present intact Neuro: Present alert and awake Assessment and Plan *Assessment and plan (1) Atrial fibrillation with rapid ventricular response: Status: Acute Category: Medical Code(s): I48.91 - Unspecified atrial fibrillation (2) CHF (congestive heart failure): Status: Chronic Qualifiers: Heart failure chronicity: unspecified Heart failure type: unspecified Qualified Code(s): I50.9 - Heart failure, unspecified Category: Medical Code(s): I50.9 - Heart failure, unspecified (3) Anasarca: Status: Acute Category: Medical Code(s): R60.1 - Generalized edema (4) Necrotic ulceration of fingers: Status: Acute Category: Medical Code(s): I96 - Gangrene, not elsewhere classified (5) Tobacco use: Status: Acute Category: Social Hx Code(s): Z72.0 - Tobacco use (6) Alcoholism: Status: Acute Category: Medical Code(s): F10.20 - Alcohol dependence, uncomplicated (7) COPD (chronic obstructive pulmonary disease): Status: Chronic Category: Medical Code(s): J44.9 - Chronic obstructive pulmonary disease, unspecified (8) Pulmonary hypertension: Status: Chronic Category: Medical Code(s): I27.20 - Pulmonary hypertension, unspecified (9) Cirrhosis, alcoholic: Status: Chronic Category: Medical Code(s): K70.30 - Alcoholic cirrhosis of liver without ascites (10) Hypertension: Status: Chronic Qualifiers: Hypertension type: unspecified Qualified Code(s): I10 - Essential (primary) hypertension Category: Medical Code(s): I10 - Essential (primary) hypertension (11) Anxiety: Status: Acute Category: Medical Code(s): F41.9 - Anxiety disorder, unspecified (12) GERD (gastroesophageal reflux disease): Status: Acute Category: Medical Code(s): K21.9 - Gastro-esophageal reflux disease without esophagitis (13) Hypothyroidism: Status: Chronic Category: Medical Code(s): E03.9 - Hypothyroidism, unspecified Plan Lungs sound much better today. He is off oxygen. Will get a PT consult and see if we can get him out of the bed and up in a chair. Cardiology to follow. He is diuresing. Ortho following patient's fingers. Dr. Bridges entry - Saw patient, agree with above note.
[2023-03-21] MEDS: SERTRALINE 50MG TABLET 50 MG PO (09:11)
[2023-03-21] MEDS: FOLIC ACID 1MG TABLET 1 MG PO (09:11)
[2023-03-21] MEDS: METOPROLOL TARTRATE 50MG TABLET 100 MG PO ×3 (09:11→20:26)
[2023-03-21] MEDS: NICOTINE 21MG/24HR PATCH 21 MG TD (09:12)
[2023-03-21] MEDS: THIAMINE 100MG TABLET 100 MG PO (09:12)
[2023-03-21] MEDS: DIGOXIN 0.25MG TABLET 250 MCG PO (09:12)
[2023-03-21] MEDS: APIXABAN 5MG TABLET 5 MG PO ×2 (09:12→20:26)
--- NOTE | 2023-03-21 09:24 | EXP.CARD.PN ---
Subjective Subjective Date: 03/21/23 Time: 09:30 Principal diagnosis: Volume overload, A-fib RVR Interval history: Doing well this morning. Continue with Bumex drip. Patient has diuresed over 8 L since admission. Morning labs reviewed and creatinine stable at 1.2. Remains in A-fib RVR. Will continue to adjust meds as needed. Exam Data for Last 24 hours Vital signs and Labs for Last 24 Hours: Temp Pulse Resp BP Pulse Ox O2 Del Method O2 Flow Rate 97.7 F 153 H 20 119/85 98 Room Air 2 03/21/23 08:00 03/21/23 09:12 03/21/23 08:00 03/21/23 08:00 03/21/23 08:00 03/21/23 08:00 03/20/23 16:00 FiO2 35 03/19/23 09:17 Laboratory Results - last 24 hr 03/20/23 18:05: Sodium 135 L, Potassium 4.0, Chloride 99, Carbon Dioxide 33 H, Anion Gap 7.0, BUN 21 H, Creatinine 1.30 H, Estimated Creat Clear 97, Estimated GFR 57 L, Est GFR ( Amer) 69, Glucose 114 H D, Calcium 7.6 L 03/21/23 07:42: Sodium 134 L, Potassium 3.6, Chloride 94 L, Carbon Dioxide 39 H, Anion Gap 4.6 L, BUN 20, Creatinine 1.20, Estimated Creat Clear 104, Estimated GFR 62, Est GFR ( Amer) 75, Glucose 106 H, Calcium 8.0 L I & O for Last 24 hours: Intake & Output 03/18/23 03/19/23 03/20/23 03/21/23 23:59 23:59 23:59 23:59 Intake Total 872.750 / 220.726 5241 / 2064 600 / 600 Output Total 4325 / 4325 5950 / 5950 3700 / 3700 Balance -3452.250 / -3452.250 -3886 / -3886 -3100 / -3100 Weight 250 lb 243 lb 12.8 oz 242 lb 9.6 oz Constitutional Constitutional: no acute distress *Routine Respiratory Exam Respiratory: Present CTA bilaterally and symmetric chest movement *Routine Cardiovascular Exam Cardiovascular: Present Normal S1, Normal S2, irregular rhythm and irregularly irregular *Routine Abdominal Exam Abdominal: Present soft, normoactive bowel sounds and distended; Absent tenderness Comments: Anasarca present but improving *Routine Extremities Exam Extremities: Present edema, full ROM and normal capillary refill *Routine Skin Exam Skin: Present intact, dry and warm Detailed Neck Exam: Thyroids Thyroid: Absent bruit Progress Note: A&P Assessment and plan (1) Atrial fibrillation with rapid ventricular response: Status: Acute (2) CHF (congestive heart failure): Status: Chronic (3) Anasarca: Status: Acute (4) Necrotic ulceration of fingers: Status: Acute (5) Tobacco use: Status: Acute (6) Alcoholism: Status: Acute (7) COPD (chronic obstructive pulmonary disease): Status: Chronic (8) Pulmonary hypertension: Status: Chronic (9) Cirrhosis, alcoholic: Status: Chronic (10) Hypertension: Status: Chronic (11) Anxiety: Status: Acute (12) GERD (gastroesophageal reflux disease): Status: Acute (13) Hypothyroidism: Status: Chronic Assessment and Plan Assessment and Plan for All Diagnoses:: PAF chadsvasc score 2 -Started on Dilt drip with improvement in heart rate -Given reduced EF we will stop diltiazem drip and start oral Digoxin 125 mcg daily for rate control -Continue home dose of metoprolol 50 mg p.o. twice daily -Resume Eliquis 5 mg p.o. twice daily 03/20/2022: stil afib rvr, will increase dig to 250mcg daily and Metoprolol to 100mg TID 03/21/2023: Patient remains in A-fib with rates in the low 100s. Will continue digoxin 250 mcg daily and metoprolol 100 mg 3 times daily for rate control. Heart rate acceptable less than 120. No dig due to low ejection fraction. If heart rate becomes higher than 120 consistently will consider addition of amiodarone. Acute on chronic right sided heart failure Acute HFrEF/ EF 30% NYHA II-III Pulmonary HTN Anasarca/volume overload History of historically normal ejection fraction -Echo report shows: EF of 30% with septal regional wall abnormality noted. RV is severely dilated and dysfunctional. Severe TR. Small pericardial effusion. Elevated RVSP >30 -Given reduced ejection fraction and wall motion abnormalities will consider left heart cath on an outpatient basis once patient has fully diuresed due to Biventricular failure -Continue Bumex drip -Strict I's and O's with Marsh catheter -CTA chest negative for pulmonary embolism or dissection, small pleural effusions with mild bibasilar atelectasis present. Diffuse anasarca. Mildly enlarged retrocrural nodes which may be reactive or neoplastic. -Will add Entresto, Jardiance, Aldactone after patient is fully diuresed. -As of 904 today patient has diuresed 3700 mLs -Will fit for LifeVest today given EF 30% 03/21/2023: Patient continuing to diurese well on Bumex drip. Creatinine remaining stable at 1.2. Has diuresed greater than 8 L. History of alcohol abuse Alcoholic cirrhosis -Defer to primary service Tobacco use -Smoking cessation advised CV summary 03/21/2023: Continue to diurese with Bumex drip. Continue digoxin at increased dose of 250 mcg p.o. daily and Metoprolol 100mg TID. Once patient has fully diuresed we will add Entresto, Jardiance, Aldactone. Patient will be fitted with LifeVest today. Acceptable heart rate less than 120. If heart rate becomes greater than 120 consistently will consider addition of amiodarone. Please contact Dr. Harris or Estefany over the weekend for any additional concerns.
[2023-03-21] MEDS: OXYCODONE 5MG IMMEDIATE RELEASE TABLET 5 MG PO ×2 (12:45→17:37)
--- NOTE | 2023-03-21 13:54 | HMH.PTEV ---
Physical Therapy Evaluation Rehab PT IP Evaluation Start: 03/21/23 08:32 Freq: ONCE Status: Active Protocol: Document 03/21/23 13:49 PHORRACHEL (Rec: 03/21/23 13:54 PHORNE [id number]) Subjective/History History History 58 yowm adm to [facility] with heart failure. He has PMH of hypothyroid, a-fib, HTN, HLD, CHF, and EtOH abuse. He reports he lives alone, ramp to enter the home, and he is generally independent with all mobility at home without an AD. Subjective Subjective Currently he c/o pain in his bladder intermittently, but he does agree to evaluation. New diagnosis of cancer in past 12 No months? Rehab PT IP Eval Objective Appearance Patient Behavior Appropriate Patient Orientation Person,Place,Time Difficulty following instructions none Speech Pattern Clear Ambulation Patient Able to Ambulate No Balance Ability to Arise Able, uses arms to help Sitting Balance Steady, safe Standing Balance Unsteady Dynamic Sitting Balance Ability Good Dynamic Standing Balance Ability Fair Transfers Bed Transfer Ability Minimal x 1 (25% assist) Chair Transfer Ability Moderate x 1 (50% assist) Sit to Stand Bed Transfer Ability Moderate x 1 (50% assist) Sit to Stand Chair Transfer Ability Moderate x 1 (50% assist) Rehab PT IP prob,goals,plan Problems Date of Evaluation: 03/21/23 PT IP Problems Bed Mobility,Transfers,Gait Rehab Potential Rehab Potential Fair Plan PT Intervention Plan Bed Mobility,Transfers,Gait, Therapeutic Exercise PT Plan Frequency Daily Duration LOS Discharge Goals Bed Transfer Ability Contact Guard/Hand Hold Sit to Stand Chair Transfer Ability Minimal x 2 (25% assist) Ambulation Assistive Device Rolling Walker Ambulation Distance (feet) 20 Discharge Plan PT Discharge Plan Pt is currently most appropriate for rehab placement once medically stable for d/c. Skilled therapy is necessary to prevent further debility, falls, injury and wounds. Eval Complexity Eval Charge Codes 79662 - High Complexity PHYSICIAN CERTIFICATION: I certify the specified therapy services for Alonso Richardson are required, authorized, and reviewed every 30 days.
[2023-03-21 15:59] LABS: Anion Gap 8.4 mEq/L (5-15); Blood Urea Nitrogen 19 mg/dl (9-20); Calcium 7.6 mg/dl (8.4-10.2); Carbon Dioxide 34 mmol/L (22.0-30.0); Chloride 92 mmol/L (98-107); Creatinine Clearance Estimated 104 mL/min (50-200); Estimated Glomerular Filt Rate 62 ml/min (>60); GFR (African American) 75 ML/MIN (>60); Glucose 127 mg/dl (74-100); Potassium 3.4 mmoL/L (3.5-5.1); Sodium 131 mmol/L (136-145)
--- NOTE | 2023-03-21 16:49 | PC.NURSE ---
pt has been A&O X4 entire shift thus far. pt has been c/o pain of 8/10 or higher in his scrotum area. scrotum inspected and severe edema noted. expiratory wheezes noted during assessment this a.m. throughout both lungs. pt has glynn in place and has had over 2000ml out today. pt has been c/o a burning sensation around the catheter. the pt was bladder scanned, but no evidence of retention was noted. MD contacted for pt concerns. pt has been up several times to bathroom with x1 assist, however refused PT this a.m. pt has had x1 bm today.
[2023-03-21] MEDS: MULTIVITAMIN TABLET 1 EACH PO (17:37)
--- NOTE | 2023-03-21 21:05 | PC.NURSE ---
LOWER ABDOMEN [id number] WELL THIGHS. EDEMA IMPROVED SLIGHTLY. SCROTAL SWELLING IMPROVED. HEEL PADS PLACED ON FEET TO PREVENT BREAKDOWN. I/S PROVIDED WITH INSTRUCTIONS AND RATIONALE. PATIENT VERBALIZES UNDERSTANDING.
--- NOTE | 2023-03-21 22:09 | PC.NURSE ---
PATIENT HAS REFUSED TURNING AND REPOSITIONING. SAID HE WILL AT 2300. PATIENT TEACHING ON SKIN BREAKDOWN AND DECUBITUS CLINT WHEN EDEMATOUS. PATIENT VERBALIZES UNDERSTANDING.
[2023-03-22] VITALS (16 sets, daily range): BP systolic 110–128; BP diastolic 63–86; PULSE 65–150; RESP 16–21; TEMP 36.6–37.2; O2SAT 93–100; BMI 30.6
[2023-03-22] MEDS: OXYCODONE 5MG IMMEDIATE RELEASE TABLET 5 MG PO ×3 (04:43→18:21)
--- NOTE | 2023-03-22 05:21 | PC.NURSE ---
ASSISTED TO BR. PASSED BM. REFUSES BATH.
--- NOTE | 2023-03-22 05:47 | PC.NURSE ---
Patient c/o pus coming from the opening where penis and catheter retracted down into edematous scrotum. has a bad odor . patient refuses bath. Has been rubbing tissue down in the entrance for 2 days saying the catheter is leaking. now says there is pus present. Day shift tried to get penis visable but were unsuccessful yesterday. Feels like he needs to urinate and strains to void. informed patient that the catheter is draining freely and no need to strain. will report this finding to dayshift for follow up.
[2023-03-22] MEDS: IPRATROPIUM/ALBUTEROL 3 ML NEB IH ×4 (06:25→23:54)
[2023-03-22 07:09] LABS: Blood Urea Nitrogen 17 mg/dl (9-20); Calcium 7.6 mg/dl (8.4-10.2); Chloride 88 mmol/L (98-107); Creatinine Clearance Estimated 108 mL/min (50-200); Estimated Glomerular Filt Rate 69 ml/min (>60); GFR (African American) 83 ML/MIN (>60); Glucose 81 mg/dl (74-100); Potassium 3.3 mmoL/L (3.5-5.1); Sodium 131 mmol/L (136-145)
[2023-03-22 07:16] LABS: Anion Gap 8.3 mEq/L (5-15); Carbon Dioxide 38 mmol/L (22.0-30.0)
[2023-03-22] MEDS: FOLIC ACID 1MG TABLET 1 MG PO (09:01)
[2023-03-22] MEDS: DIGOXIN 0.25MG TABLET 250 MCG PO (09:01)
[2023-03-22] MEDS: SERTRALINE 50MG TABLET 50 MG PO (09:01)
[2023-03-22] MEDS: NICOTINE 21MG/24HR PATCH 21 MG TD (09:02)
[2023-03-22] MEDS: METOPROLOL TARTRATE 50MG TABLET 100 MG PO ×3 (09:02→20:11)
[2023-03-22] MEDS: APIXABAN 5MG TABLET 5 MG PO ×2 (09:02→20:11)
--- NOTE | 2023-03-22 09:27 | EXP.ACUTE.PN ---
Subjective *Date: 03/22/23 *Time: 09:27 Interval history: Patient feels some better today, was able to get out of bed. Medical Exam Vital signs and Labs for Last 24 Hours: Vital Signs Temp Pulse Pulse Resp BP Pulse Ox O2 Del Method 03/22/23 09:01 140 H 03/22/23 07:22 98.5 F 150 H 21 128/81 93 L Room Air 03/22/23 06:25 112 H 03/22/23 06:25 112 H 03/22/23 06:25 95 Room Air 03/22/23 06:23 Room Air 03/22/23 05:00 Room Air 03/22/23 04:00 98.6 F 95 H 18 115/63 97 Room Air 03/22/23 04:00 132 H 03/22/23 03:00 Room Air 03/22/23 01:00 Room Air 03/22/23 00:00 93 L Room Air 03/22/23 00:00 98.7 F 103 H 16 120/86 93 L Room Air 03/22/23 00:00 98 H 03/21/23 22:47 Room Air 03/21/23 21:00 Room Air 03/21/23 20:00 97 Room Air 03/21/23 20:00 120 H 03/21/23 20:00 98.4 F 110 H 18 116/69 97 Room Air 03/21/23 19:59 105 H 03/21/23 19:59 107 H 03/21/23 19:00 Room Air 03/21/23 16:00 115 H 03/21/23 16:43 Room Air 03/21/23 16:00 99.4 F 124 H 20 118/67 94 L Room Air 03/21/23 15:00 Room Air 03/21/23 12:00 115 H 03/21/23 13:00 Room Air 03/21/23 12:00 98.9 F 74 18 114/72 94 L Room Air 03/21/23 11:00 Room Air 03/21/23 10:25 79 03/21/23 10:25 77 O2 Flow Rate 03/22/23 09:01 03/22/23 07:22 03/22/23 06:25 03/22/23 06:25 03/22/23 06:25 03/22/23 06:23 03/22/23 05:00 03/22/23 04:00 03/22/23 04:00 03/22/23 03:00 03/22/23 01:00 03/22/23 00:00 03/22/23 00:00 03/22/23 00:00 03/21/23 22:47 03/21/23 21:00 97 03/21/23 20:00 03/21/23 20:00 03/21/23 20:00 03/21/23 19:59 03/21/23 19:59 03/21/23 19:00 03/21/23 16:00 03/21/23 16:43 03/21/23 16:00 03/21/23 15:00 03/21/23 12:00 03/21/23 13:00 03/21/23 12:00 03/21/23 11:00 03/21/23 10:25 03/21/23 10:25 Intake and Output 03/21/23 03/22/23 03/22/23 23:59 07:59 15:59 Intake Total 520 / 2198 1006 / 1006 Output Total 750 / 7950 3400 / 3400 Balance -230 / -5752 -2394 / -2394 Intake: Intake, Oral Amount 520 / 2080 950 / 950 Intake, Total IV Amount 56 / 56 Bumetanide 25 mg In 0.9 % 56 / 56 Sodium Chloride 150 ml @ 5 mls/ hr IV .Q24H COUNTS INCLUDE 234 BEDS AT THE [facility] Rx#:[id number] Output: Output, Urine Amount 750 / 7950 3400 / 3400 Other: Number of Unmeasured Voids 0 0 Number of Bowel Movements 1 1 Weight 231 lb Patient Weight 03/22/23 23:59 Weight 231 lb Laboratory Results - last 24 hr 03/21/23 15:15: Sodium 131 L, Potassium 3.4 L, Chloride 92 L, Carbon Dioxide 34 H, Anion Gap 8.4, BUN 19, Creatinine 1.20, Estimated Creat Clear 104, Estimated GFR 62, Est GFR ( Amer) 75, Glucose 127 H, Calcium 7.6 L 03/22/23 06:42: Sodium 131 L, Potassium 3.3 L, Chloride 88 L, Carbon Dioxide 38 H, Anion Gap 8.3, BUN 17, Creatinine 1.10, Estimated Creat Clear 108, Estimated GFR 69, Est GFR ( Amer) 83, Glucose 81 D, Calcium 7.6 L I & O for Labs for Last 24 Hours: Intake & Output 03/19/23 03/20/23 03/21/23 03/22/23 23:59 23:59 23:59 23:59 Intake Total 872.750 / 065.315 9131 / 2064 1662 / 2198 1006 / 1006 Output Total 4325 / 4325 5950 / 5950 6350 / 7950 3400 / 3400 Balance -3452.250 / -3452.250 -3886 / -3886 -4688 / -5752 -2394 / -2394 Weight 250 lb 243 lb 12.8 oz 242 lb 8.136 oz 231 lb Microbiology Reports for the Last 24 Hours: Microbiology 03/19/23 08:45 Blood Blood Culture - Preliminary Constitutional: Present no acute distress Respiratory: Present CTA bilaterally; Absent rhonchi or wheezes Comment:: Irregularly irregular, rate 130 to 150 this morning. GI: Present soft, distention and normal bowel sounds; Absent tenderness (male): Present scrotal swelling Extremities: Present edema (improving in the upper and lower extremities) and other (left 4th and 5th digits are black and sutures are still in place from previous laceration repair); Absent clubbing or cyanosis Skin: Present intact Neuro: Present alert and awake Assessment and Plan *Assessment and plan (1) Atrial fibrillation with rapid ventricular response: Status: Acute Category: Medical Code(s): I48.91 - Unspecified atrial fibrillation (2) CHF (congestive heart failure): Status: Chronic Qualifiers: Heart failure type: unspecified Heart failure chronicity: unspecified Qualified Code(s): I50.9 - Heart failure, unspecified Category: Medical Code(s): I50.9 - Heart failure, unspecified (3) Anasarca: Status: Acute Category: Medical Code(s): R60.1 - Generalized edema (4) Necrotic ulceration of fingers: Status: Acute Category: Medical Code(s): I96 - Gangrene, not elsewhere classified (5) Tobacco use: Status: Acute Category: Social Hx Code(s): Z72.0 - Tobacco use (6) Alcoholism: Status: Acute Category: Medical Code(s): F10.20 - Alcohol dependence, uncomplicated (7) COPD (chronic obstructive pulmonary disease): Status: Chronic Category: Medical Code(s): J44.9 - Chronic obstructive pulmonary disease, unspecified (8) Pulmonary hypertension: Status: Chronic Category: Medical Code(s): I27.20 - Pulmonary hypertension, unspecified (9) Cirrhosis, alcoholic: Status: Chronic Category: Medical Code(s): K70.30 - Alcoholic cirrhosis of liver without ascites (10) Hypertension: Status: Chronic Qualifiers: Hypertension type: unspecified Qualified Code(s): I10 - Essential (primary) hypertension Category: Medical Code(s): I10 - Essential (primary) hypertension (11) Anxiety: Status: Acute Category: Medical Code(s): F41.9 - Anxiety disorder, unspecified (12) GERD (gastroesophageal reflux disease): Status: Acute Category: Medical Code(s): K21.9 - Gastro-esophageal reflux disease without esophagitis (13) Hypothyroidism: Status: Chronic Category: Medical Code(s): E03.9 - Hypothyroidism, unspecified Plan Patient has improved, total diuresis of 16 liters so far, heart rate continues to be elevated, plan to start Amiodarone per cardiology recommendations. Alcohol withdrawal symptoms under good control.
[2023-03-22] MEDS: BUMETANIDE 10 MG in 0.9 % SODIUM CHLORIDE 60 ML 5 MG IV (14:35)
[2023-03-22] MEDS: MULTIVITAMIN TABLET 1 EACH PO (18:21)
--- NOTE | 2023-03-22 18:45 | PC.NURSE ---
patient a&ox4. Patirent vss. Patient continues to tolerate bumex drip and has edema. scrotal swelling has decreased yet is 3+ pitting edema. Patient gor life vest per cardiology today
[2023-03-23] VITALS (13 sets, daily range): BP systolic 109–126; BP diastolic 63–84; PULSE 62–127; RESP 16–20; TEMP 36.8–36.9; O2SAT 90–97; BMI 29.7
--- NOTE | 2023-03-23 03:19 | PC.NURSE ---
CIWA SCORES 0. NO C/O PAIN OR DISCOMFORT. BUMEX DRIP INFUSING AT 5 ML/HR/PUMP. F/C PATENT AND INTACT TO BSD, URINE CLEAR YELLOW.
[2023-03-23] MEDS: IPRATROPIUM/ALBUTEROL 3 ML NEB IH ×4 (06:05→19:19)
[2023-03-23] MEDS: OXYCODONE 5MG IMMEDIATE RELEASE TABLET 5 MG PO ×2 (09:29→20:22)
[2023-03-23] MEDS: DIGOXIN 0.25MG TABLET 250 MCG PO (09:29)
[2023-03-23] MEDS: NICOTINE 21MG/24HR PATCH 21 MG TD (09:29)
[2023-03-23] MEDS: FOLIC ACID 1MG TABLET 1 MG PO (09:30)
[2023-03-23] MEDS: APIXABAN 5MG TABLET 5 MG PO ×2 (09:30→20:22)
[2023-03-23] MEDS: METOPROLOL TARTRATE 50MG TABLET 100 MG PO ×3 (09:30→20:22)
[2023-03-23] MEDS: SERTRALINE 50MG TABLET 50 MG PO (09:30)
--- NOTE | 2023-03-23 10:25 | P.PN_ITS ---
Subjective *Date: 03/23/23 *Time: 10:25 Interval history: Patient with no new complaints today, states he had trouble falling a sleep last night. Medical Exam Vital signs and Labs for Last 24 Hours: Vital Signs Temp Pulse Pulse Resp BP Pulse Ox O2 Del Method 03/23/23 09:29 127 H 03/23/23 07:39 98.4 F 114 H 20 114/84 96 Room Air 03/23/23 06:43 Room Air 03/23/23 06:05 85 03/23/23 06:05 86 03/23/23 06:05 90 L Room Air 03/23/23 05:00 Room Air 03/23/23 04:00 98.4 F 86 17 118/64 92 L Room Air 03/23/23 04:00 94 H 03/23/23 02:58 Room Air 03/23/23 00:44 Room Air 03/23/23 00:00 103 H 03/22/23 23:57 99.0 F 65 17 121/79 95 Room Air 03/22/23 20:20 98 H 03/22/23 20:10 95 H 03/22/23 23:00 Room Air 03/22/23 21:00 Room Air 03/22/23 20:00 100 Room Air 03/22/23 20:00 124 H 03/22/23 20:00 97.9 F 109 H 17 120/72 100 Room Air 03/22/23 16:00 110 H 03/22/23 15:22 98.6 F 91 H 20 110/77 97 Room Air 03/22/23 14:04 104 H 03/22/23 14:04 104 H 03/22/23 12:00 114 H 03/22/23 11:03 98.5 F 94 H 20 122/79 93 L Room Air Intake and Output 03/22/23 03/23/23 03/23/23 23:59 07:59 15:59 Intake Total 470 / 2506 920 / 920 Output Total 1500 / 7500 1800 / 3000 1200 / 3000 Balance -1030 / -4994 -880 / -2080 -1200 / -2079 Intake: Intake, Oral Amount 470 / 2360 830 / 830 Intake, Total IV Amount 90 / 90 Bumetanide 25 mg In 0.9 % 90 / 90 Sodium Chloride 150 ml @ 5 mls/ hr IV .Q24H [facility] Rx#:[id number] Output: Output, Urine Amount 1500 / 7500 1800 / 3000 1200 / 3000 Other: Number of Unmeasured Voids 0 0 1 Number of Bowel Movements 1 Weight 224 lb 6.4 oz Patient Weight 03/23/23 23:59 Weight 224 lb 6.4 oz I & O for Labs for Last 24 Hours: Intake & Output 03/20/23 03/21/23 03/22/23 03/23/23 23:59 23:59 23:59 23:59 Intake Total 2064 / 2064 1662 / 2198 2056 / 2506 920 / 920 Output Total 5950 / 5950 6350 / 7950 7500 / 7500 3000 / 3000 Balance -3886 / -3886 -4688 / -5752 -5444 / -4994 -0 / -2079 Weight 243 lb 12.8 oz 242 lb 8.136 oz 231 lb 224 lb 6.4 oz Microbiology Reports for the Last 24 Hours: Microbiology 03/19/23 08:45 Blood Blood Culture - Preliminary Constitutional: Present no acute distress Respiratory: Present CTA bilaterally; Absent rhonchi or wheezes Cardiac: Present Irregularly Regular Comment:: HR staying around 100 this morning GI: Present soft, distention and normal bowel sounds; Absent tenderness (male): Present scrotal swelling Extremities: Present edema (improving in the upper and lower extremities) and other (left 4th and 5th digits are black and sutures are still in place from previous laceration repair); Absent clubbing or cyanosis Skin: Present intact Neuro: Present alert and awake Assessment and Plan *Assessment and plan (1) Atrial fibrillation with rapid ventricular response: Status: Acute Category: Medical Code(s): I48.91 - Unspecified atrial fibrillation (2) CHF (congestive heart failure): Status: Chronic Qualifiers: Heart failure type: unspecified Heart failure chronicity: unspecified Qualified Code(s): I50.9 - Heart failure, unspecified Category: Medical Code(s): I50.9 - Heart failure, unspecified (3) Anasarca: Status: Acute Category: Medical Code(s): R60.1 - Generalized edema (4) Necrotic ulceration of fingers: Status: Acute Category: Medical Code(s): I96 - Gangrene, not elsewhere classified (5) Tobacco use: Status: Acute Category: Social Hx Code(s): Z72.0 - Tobacco use (6) Alcoholism: Status: Acute Category: Medical Code(s): F10.20 - Alcohol dependence, uncomplicated (7) COPD (chronic obstructive pulmonary disease): Status: Chronic Category: Medical Code(s): J44.9 - Chronic obstructive pulmonary disease, unspecified (8) Pulmonary hypertension: Status: Chronic Category: Medical Code(s): I27.20 - Pulmonary hypertension, unspecified (9) Cirrhosis, alcoholic: Status: Chronic Category: Medical Code(s): K70.30 - Alcoholic cirrhosis of liver without ascites (10) Hypertension: Status: Chronic Qualifiers: Hypertension type: unspecified Qualified Code(s): I10 - Essential (p rimary) hypertension Category: Medical Code(s): I10 - Essential (primary) hypertension (11) Anxiety: Status: Acute Category: Medical Code(s): F41.9 - Anxiety disorder, unspecified (12) GERD (gastroesophageal reflux disease): Status: Acute Category: Medical Code(s): K21.9 - Gastro-esophageal reflux disease without esophagitis (13) Hypothyroidism: Status: Chronic Category: Medical Code(s): E03.9 - Hypothyroidism, unspecified Plan HR slowed without amiodarone. Total urine output of 23 liters so far this admission. Recheck labs tomorrow.
[2023-03-23] MEDS: BUMETANIDE 10 MG in 0.9 % SODIUM CHLORIDE 60 ML 5 MG IV (13:46)
--- NOTE | 2023-03-23 18:52 | PC.NURSE ---
Patient still has edema and has c/o pain. Patient a&ox4 and vss. Patient continues to be on bumex drip.
[2023-03-23] MEDS: MULTIVITAMIN TABLET 1 EACH PO (18:55)
[2023-03-24] VITALS (11 sets, daily range): BP systolic 100–127; BP diastolic 62–88; PULSE 70–130; RESP 17–20; TEMP 36.6–37.2; O2SAT 93–100; BMI 29.0
[2023-03-24] MEDS: OXYCODONE 5MG IMMEDIATE RELEASE TABLET 5 MG PO ×2 (03:56→21:38)
[2023-03-24] MEDS: IPRATROPIUM/ALBUTEROL 3 ML NEB IH ×4 (06:06→19:25)
[2023-03-24 06:37] LABS: Basophils % 0.3 % (0.1-2.0); Eosinophils # 0.1 K/mm3 (0.0-0.4); Eosinophils % 1.1 % (0.1-12.0); Hematocrit 36.3 % (42.0-52.0); Hemoglobin 11.9 g/dL (14.1-18.0); Lymphocytes # 1.8 K/mm3 (0.7-4.5); Lymphocytes % 14.9 % (10-50); Mean Corpuscular HGB Conc 32.8 g/dL (31.8-35.4); Mean Corpuscular Hemoglobin 31.9 pg (27.0-31.2); Mean Corpuscular Volume 97.3 fl (80-94); Mean Platelet Volume 7.7 fl (7.4-10.4); Monocytes # 1.6 K/mm3 (0.1-1.0); Monocytes % 12.8 % (1.7-9.3); Neutrophils # 8.8 K/mm3 (1.8-7.8); Neutrophils % 70.9 % (37.0-80.0); Platelet Count 374 K/mm3 (142-424); Red Blood Count 3.73 M/mm3 (4.60-6.20); White Blood Count 12.4 K/mm3 (4.8-10.8)
[2023-03-24 06:51] LABS: Alanine Aminotransferase 11 U/L (12-78); Albumin Level 2.8 g/dl (3.5-5.0); Albumin/Globulin Ratio 0.8 (1.1-1.8); Alkaline Phosphatase 181 U/L (38-126); Aspartate Amino Transferase 27 U/L (17-59); Bilirubin,Total 0.5 mg/dl (0.2-1.3); Blood Urea Nitrogen 19 mg/dl (9-20); Calcium 6.9 mg/dl (8.4-10.2); Chloride 77 mmol/L (98-107); Creatinine Clearance Estimated 103 mL/min (50-200); Estimated Glomerular Filt Rate 69 ml/min (>60); GFR (African American) 83 ML/MIN (>60); Globulin 3.7 g/dL (1.3-3.2); Glucose 87 mg/dl (74-100); Sodium 129 mmol/L (136-145); Total Protein,Serum 6.5 g/dl (6.3-8.2)
[2023-03-24] MEDS: BUMETANIDE 10 MG in 0.9 % SODIUM CHLORIDE 60 ML 5 MG IV (06:56)
[2023-03-24 07:16] LABS: Anion Gap 10.8 mEq/L (5-15); Carbon Dioxide 44 mmol/L (22.0-30.0)
[2023-03-24 07:17] LABS: Potassium 2.8 mmoL/L (3.5-5.1)
--- NOTE | 2023-03-24 08:26 | P.PN_ITS ---
Subjective *Date: 03/24/23 *Time: 08:55 Interval history: Patient states he is unable to sleep. He is eating a little. He has been up to the bathroom. He continues with Marsh catheter in place. That is his main discomfort. Laboratory data this a.m. shows a white count of 12,400 with a hemoglobin of 11.9 hematocrit of 36.3 blood chemistries show sodium of 129 potassium of 2.8. Renal function is normal. Medical Exam Vital signs and Labs for Last 24 Hours: Vital Signs Temp Pulse Pulse Resp BP Pulse Ox O2 Del Method 03/24/23 04:00 109 H 03/24/23 06:06 74 03/24/23 06:06 78 03/24/23 00:00 100 H 03/24/23 04:59 Room Air 03/24/23 03:00 Room Air 03/24/23 04:00 98.4 F 105 H 18 117/74 94 L Room Air 03/24/23 01:00 Room Air 03/24/23 00:00 Room Air 03/24/23 00:00 98.2 F 92 H 17 100/62 L 96 Room Air 03/23/23 23:00 Room Air 03/23/23 20:00 98 H 03/23/23 21:00 Room Air 03/23/23 20:00 98.4 F 98 H 17 126/77 97 Room Air 03/23/23 19:19 82 03/23/23 19:19 80 03/23/23 16:00 105 H 03/23/23 15:00 98.5 F 101 H 16 109/70 L 96 Room Air 03/23/23 12:00 110 H 03/23/23 11:10 87 03/23/23 11:10 88 03/23/23 11:07 98.2 F 62 17 109/63 L 95 03/23/23 09:29 127 H Intake and Output 03/23/23 03/24/23 03/24/23 19:59 03:59 11:59 Intake Total 940 / 940 120 / 1060 85.833 / 1145.833 Output Total 2600 / 2600 1600 / 4200 300 / 4500 Balance -1660 / -1660 -1480 / -3140 -214.167 / -3354.167 Intake: Intake, Oral Amount 940 / 940 120 / 1060 Intake, Total IV Amount 85.833 / 85.833 Output: Output, Urine Amount 2600 / 2600 1600 / 4200 300 / 4500 Other: Number of Unmeasured Voids 1 0 0 Number of Bowel Movements 1 1 Weight 219 lb 1.6 oz Patient Weight 03/24/23 11:59 Weight 219 lb 1.6 oz Laboratory Results - last 24 hr 03/24/23 05:22: WBC 12.4 H, RBC 3.73 L, Hgb 11.9 L, Hct 36.3 L, MCV 97.3 H, MCH 31.9 H, MCHC 32.8, RDW 16.0, Plt Count 374, MPV 7.7, Neut % (Auto) 70.9, Lymph % (Auto) 14.9, [place] % (Auto) 12.8 H, Eos % (Auto) 1.1, Baso % (Auto) 0.3, Neut # (Auto) 8.8 H, Lymph # (Auto) 1.8, [place] # (Auto) 1.6 H, Eos # (Auto) 0.1, Baso # (Auto) 0.0, Sodium 129 L, Potassium 2.8 L*, Chloride 77 L, Carbon Dioxide 44 H*, Anion Gap 10.8, BUN 19, Creatinine 1.10, Estimated Creat Clear 103, Estimated GFR 69, Est GFR ( Amer) 83, Glucose 87, Calcium 6.9 L, Total Bilirubin 0.5, AST 27, ALT 11 L, Alkaline Phosphatase 181 H, Total Protein 6.5, Albumin 2.8 L, Globulin 3.7 H, Albumin/Globulin Ratio 0.8 L I & O for Labs for Last 24 Hours: Intake & Output 03/21/23 03/22/23 03/23/23 03/24/23 11:59 11:59 11:59 11:59 Intake Total 2184 / 2184 2068 / 2068 207 / 2070 1145.833 / 1145.833 Output Total 6850 / 6850 7250 / 7250 5900 / 5900 4500 / 4500 Balance -4666 / -4666 -5182 / -5182 -3830 / -3830 -3354.167 / -3354.167 Weight 242 lb 8.136 oz 231 lb 224 lb 6.4 oz 219 lb 1.6 oz Microbiology Reports for the Last 24 Hours: Microbiology 03/19/23 08:45 Blood Blood Culture - Preliminary Constitutional: Present no acute distress Comment:: Patient is lying comfortably in the bed. He has difficulty in keeping his eyes open. Respiratory: Present CTA bilaterally (Anteriorly and posteriorly) Cardiac: Present Irregularly Regular GI: Present soft and normal bowel sounds; Absent distention, tenderness or guarding Extremities: Present edema (Bilateral lower extremity edema) Neuro: Present alert and awake Assessment and Plan *Assessment and plan (1) Atrial fibrillation with rapid ventricular response: Status: Acute Category: Medical Code(s): I48.91 - Unspecified atrial fibrillation (2) CHF (congestive heart failure): Status: Chronic Qualifiers: Heart failure chronicity: unspecified Heart failure type: unspecified Qualified Code(s): I50.9 - Heart failure, unspecified Category: Medical Code(s): I50.9 - Heart failure, unspecified (3) Anasarca: Status: Acute Category: Medical Code(s): R60.1 - Generalized edema (4) Necrotic ulceration of fingers: Status: Acute Category: Medical Code(s): I96 - Gangrene, not elsewhere classified (5) Tobacco use: Status: Acute Category: Social Hx Code(s): Z72.0 - Tobacco use (6) Alcoholism: Status: Acute Category: Medical Code(s): F10.20 - Alcohol dependence, uncomplicated (7) COPD (chronic obstructive pulmonary disease): Status: Chronic Category: Medical Code(s): J44.9 - Chronic obstructive pulmonary disease, unspecified (8) Pulmonary hypertension: Status: Chronic Category: Medical Code(s): I27.20 - Pulmonary hypertension, unspecified (9) Cirrhosis, alcoholic: Status: Chronic Category: Medical Code(s): K70.30 - Alcoholic cirrhosis of liver without ascites (10) Hypertension: Status: Chronic Qualifiers: Hypertension type: unspecified Qualified Code(s): I10 - Essential (primary) hypertension Category: Medical Code(s): I10 - Essential (primary) hypertension (11) Anxiety: Status: Acute Category: Medical Code(s): F41.9 - Anxiety disorder, unspecified (12) GERD (gastroesophageal reflux disease): Status: Acute Category: Medical Code(s): K21.9 - Gastro-esophageal reflux disease without esophagitis (13) Hypothyroidism: Status: Chronic Category: Medical Code(s): E03.9 - Hypothyroidism, unspecified Plan Patient remains on Bumex drip. Will add potassium. Continues to diurese. Encouraged activity and to work with physical therapy. Cardiology to follow as well. Dr. Bridges entry - Saw patient, agree with above note. Plan to stop Bumex drip today and remove Marsh catheter.
[2023-03-24] MEDS: DIGOXIN 0.25MG TABLET 250 MCG PO (09:00)
[2023-03-24] MEDS: FOLIC ACID 1MG TABLET 1 MG PO (09:00)
[2023-03-24] MEDS: APIXABAN 5MG TABLET 5 MG PO ×2 (09:00→21:35)
[2023-03-24] MEDS: SERTRALINE 50MG TABLET 50 MG PO (09:00)
[2023-03-24] MEDS: POTASSIUM CHLORIDE 20MEQ TAB 40 MEQ PO (09:01)
[2023-03-24] MEDS: METOPROLOL TARTRATE 50MG TABLET 100 MG PO ×3 (09:01→21:35)
[2023-03-24] MEDS: NICOTINE 21MG/24HR PATCH 21 MG TD (09:01)
[2023-03-24] MEDS: POTASSIUM CHLORIDE 20MEQ TAB 20 MEQ PO ×3 (09:05→21:35)
--- NOTE | 2023-03-24 10:06 | EXP.CARD.PN ---
Subjective Subjective Date: 03/24/23 Time: 09:00 Principal diagnosis: Volume overload, A-fib RVR Interval history: Patient has diuresed over 20 L since admission. Cr stable, K low at 2.8, BP 117/74 He reports feeling significantly better. Telemetry shows he is still in A-fib, RVR rate 120?130. He denies chest pain or palpitations. He was fit with LifeVest over the weekend, but states he will likely not be wearing. Exam Data for Last 24 hours Vital signs and Labs for Last 24 Hours: Temp Pulse Resp BP Pulse Ox O2 Del Method O2 Flow Rate 98.2 F 129 H 20 120/75 94 L Room Air 97 03/24/23 08:00 03/24/23 09:00 03/24/23 08:00 03/24/23 08:00 03/24/23 08:00 03/24/23 08:00 03/21/23 21:00 FiO2 35 03/19/23 09:17 Laboratory Results - last 24 hr 03/24/23 05:22: WBC 12.4 H, RBC 3.73 L, Hgb 11.9 L, Hct 36.3 L, MCV 97.3 H, MCH 31.9 H, MCHC 32.8, RDW 16.0, Plt Count 374, MPV 7.7, Neut % (Auto) 70.9, Lymph % (Auto) 14.9, [place] % (Auto) 12.8 H, Eos % (Auto) 1.1, Baso % (Auto) 0.3, Neut # (Auto) 8.8 H, Lymph # (Auto) 1.8, [place] # (Auto) 1.6 H, Eos # (Auto) 0.1, Baso # (Auto) 0.0, Sodium 129 L, Potassium 2.8 L*, Chloride 77 L, Carbon Dioxide 44 H*, Anion Gap 10.8, BUN 19, Creatinine 1.10, Estimated Creat Clear 103, Estimated GFR 69, Est GFR ( Amer) 83, Glucose 87, Calcium 6.9 L, Total Bilirubin 0.5, AST 27, ALT 11 L, Alkaline Phosphatase 181 H, Total Protein 6.5, Albumin 2.8 L, Globulin 3.7 H, Albumin/Globulin Ratio 0.8 L I & O for Last 24 hours: Intake & Output 03/21/23 03/22/23 03/23/23 03/24/23 23:59 23:59 23:59 23:59 Intake Total 1662 / 2198 2056 / 2506 1959 / 2079 375.833 / 375.833 Output Total 6350 / 7950 7500 / 7500 5900 / 7000 1600 / 1600 Balance -4688 / -5752 -5444 / -4994 -3940 / -4920 -1224.167 / -1224.167 Weight 242 lb 8.136 oz 231 lb 224 lb 6.4 oz 219 lb 1.6 oz Microbiology Reports for the Last 24 Hours: Microbiology 03/19/23 08:45 Blood Blood Culture - Preliminary Constitutional Constitutional: no acute distress and cooperative *Routine HEENT Exam Eye: Present PERRL *Routine Respiratory Exam Respiratory: Present CTA bilaterally; Absent accessory muscle use, wheezes or crackles *Routine Cardiovascular Exam Cardiovascular: Present RRR, Normal S1 and Normal S2; Absent murmur, gallop or rubs *Routine Abdominal Exam Abdominal: Present soft; Absent tenderness *Routine Extremities Exam Extremities: Present pulses intact; Absent cyanosis or edema *Routine Skin Exam Skin: Present intact; Absent erythema or wounds *Routine Neurological Exam Neurological: Present alert and oriented X3 Comments: Falling asleep during visit Routine Psychiatric Exam Psychiatric: Present cooperative Progress Note: A&P Assessment and plan (1) Atrial fibrillation with rapid ventricular response: Status: Acute (2) CHF (congestive heart failure): Status: Chronic (3) Anasarca: Status: Acute (4) Necrotic ulceration of fingers: Status: Acute (5) Tobacco use: Status: Acute (6) Alcoholism: Status: Acute (7) COPD (chronic obstructive pulmonary disease): Status: Chronic (8) Pulmonary hypertension: Status: Chronic (9) Cirrhosis, alcoholic: Status: Chronic (10) Hypertension: Status: Chronic (11) Anxiety: Status: Acute (12) GERD (gastroesophageal reflux disease): Status: Acute (13) Hypothyroidism: Status: Chronic Assessment and Plan Assessment and Plan for All Diagnoses:: A-fib, RVR - new dx this admission in setting of ETOH abuse (1/5 liquor daily) and severe vol overload - CHADS-VASC = 2, on Eliquis - Remains 120-130, Failing rate control this admission including Toprol 100 TID and Digoxin. No Cardizem due to low EF - Consider ANTONETTE/DCCV. Pt will be strict NPO as of 9am after morning meds. Acute HFrEF/ EF 30% NYHA II-III Pulmonary HTN Anasarca/volume overload -New dx this admission in setting of ETOH abuse (1/5 of liquor daily) -presented with severe vol overload with pitting edema and anasarca -Echo: EF of 30% with septal regional wall abnormality noted. RV is severely dilated and dysfunctional. Severe TR. Small pericardial effusion. Elevated RVSP >30 -CTA chest negative for pulmonary embolism or dissection, small pleural effusions with mild bibasilar atelectasis present. Diffuse anasarca. Mildly enlarged retrocrural nodes which may be reactive or neoplastic. Plan: - [facility] as outpatient - LifeVest Fitted - pt states he probably won't wear it though - Diuresed >20L and appears euvolemic on exam. DC Bumex drip, start Entresto, Aldactone, Jardiance ETOH Abuse with Cirrhosis -Admits to drinking 1/5 of liquor daily prior to admission - presented with anasarca and multiorgan failure - defer management to primary service Tobacco use -Smoking cessation advised CV summary 03/24: Appears euvolemic/diuresed but remains in A-fib RVR. Will make NPO and consider ANTONETTE/DCCV this afternoon. Start GDMT including Entresto, Jardiance, Aldactone.
[2023-03-24] MEDS: MULTIVITAMIN TABLET 1 EACH PO (16:26)
[2023-03-24] MEDS: SACUBITRIL/VALSARTAN 24-26MG TABLET 1 EACH PO (21:35)
[2023-03-25] VITALS (26 sets, daily range): BP systolic 81–154; BP diastolic 50–117; PULSE 66–118; RESP 16–22; TEMP 36.4–37.2; O2SAT 90–96; BMI 28.2
[2023-03-25] MEDS: IPRATROPIUM/ALBUTEROL 3 ML NEB IH ×3 (05:49→21:09)
[2023-03-25 06:00] LABS: Basophils # 0.1 K/mm3 (0-0.2); Basophils % 0.6 % (0.1-2.0); Eosinophils # 0.2 K/mm3 (0.0-0.4); Eosinophils % 1.5 % (0.1-12.0); Hematocrit 40.6 % (42.0-52.0); Lymphocytes # 1.6 K/mm3 (0.7-4.5); Lymphocytes % 15.1 % (10-50); Mean Corpuscular HGB Conc 32.3 g/dL (31.8-35.4); Mean Corpuscular Hemoglobin 31.7 pg (27.0-31.2); Mean Corpuscular Volume 98.1 fl (80-94); Mean Platelet Volume 7.7 fl (7.4-10.4); Monocytes # 1.2 K/mm3 (0.1-1.0); Monocytes % 11.5 % (1.7-9.3); Neutrophils # 7.6 K/mm3 (1.8-7.8); Neutrophils % 71.4 % (37.0-80.0); Platelet Count 410 K/mm3 (142-424); Red Blood Count 4.14 M/mm3 (4.60-6.20); White Blood Count 10.6 K/mm3 (4.8-10.8)
[2023-03-25 06:06] LABS: Blood Urea Nitrogen 19 mg/dl (9-20); Calcium 7.2 mg/dl (8.4-10.2); Chloride 79 mmol/L (98-107); Creatinine Clearance Estimated 100 mL/min (50-200); Estimated Glomerular Filt Rate 69 ml/min (>60); GFR (African American) 83 ML/MIN (>60); Glucose 95 mg/dl (74-100); Potassium 3.1 mmoL/L (3.5-5.1); Sodium 131 mmol/L (136-145)
[2023-03-25 06:07] LABS: Hemoglobin 13.1 g/dL (14.1-18.0)
[2023-03-25 06:15] LABS: Anion Gap 11.1 mEq/L (5-15); Carbon Dioxide 44 mmol/L (22.0-30.0)
--- NOTE | 2023-03-25 08:31 | P.PN_ITS ---
Subjective *Date: 03/25/23 *Time: 08:42 Interval history: Per nursing: Patient rested on and off. He is n.p.o. for possible cardioversion today. Per patient. He is drowsy and difficult to understand this morning. He does awaken easily but his speech is unclear. He does complain of anterior chest discomfort with palpation. Patient and nursing states he is voiding without difficulty after Marsh catheter removed. Medical Exam Vital signs and Labs for Last 24 Hours: Vital Signs Temp Pulse Pulse Resp BP Pulse Ox O2 Del Method 03/25/23 07:00 Room Air 03/25/23 04:00 98.9 F 95 H 18 103/71 L 92 L Room Air 03/25/23 05:50 76 03/25/23 05:50 80 03/25/23 05:00 Room Air 03/25/23 04:00 90 03/25/23 03:00 Room Air 03/25/23 03:25 97 H 103/69 L 03/25/23 00:00 98.3 F 111 H 16 89/63 L 95 Room Air 03/25/23 01:00 Room Air 03/25/23 00:00 110 H 03/24/23 23:00 Room Air 03/24/23 21:00 Room Air 03/24/23 20:00 110 H Room Air 03/24/23 20:00 98.9 F 106 H 18 117/71 93 L Room Air 03/24/23 20:00 90 03/24/23 19:31 86 03/24/23 19:31 75 03/24/23 18:13 Room Air 03/24/23 17:00 Room Air 03/24/23 16:00 90 03/24/23 16:00 98.2 F 70 20 127/88 100 Room Air 03/24/23 12:00 100 H 03/24/23 15:00 Room Air 03/24/23 13:38 89 03/24/23 13:38 85 03/24/23 12:28 Room Air 03/24/23 11:00 Room Air 03/24/23 12:00 97.9 F 89 18 109/63 L 96 Room Air 03/24/23 10:16 83 03/24/23 10:16 81 03/24/23 09:00 Room Air 03/24/23 09:00 129 H Intake and Output 03/24/23 03/25/23 03/25/23 19:59 03:59 11:59 Intake Total 520 / 520 Output Total 1400 / 1400 300 / 1700 Balance -880 / -880 -300 / -1180 Intake: Intake, Oral Amount 520 / 520 Output: Output, Urine Amount 1400 / 1400 300 / 1700 Other: Number of Voids 1 Number of Unmeasured Voids 0 1 Weight 213 lb Patient Weight 03/25/23 11:59 Weight 213 lb Laboratory Results - last 24 hr 03/25/23 05:21: WBC 10.6, RBC 4.14 L, Hgb 13.1 L D, Hct 40.6 L, MCV 98.1 H, MCH 31.7 H, MCHC 32.3, RDW 16.0, Plt Count 410, MPV 7.7, Neut % (Auto) 71.4, Lymph % (Auto) 15.1, [place] % (Auto) 11.5 H, Eos % (Auto) 1.5, Baso % (Auto) 0.6, Neut # (Auto) 7.6, Lymph # (Auto) 1.6, [place] # (Auto) 1.2 H, Eos # (Auto) 0.2, Baso # (Auto) 0.1, Sodium 131 L, Potassium 3.1 L, Chloride 79 L, Carbon Dioxide 44 H*, Anion Gap 11.1, BUN 19, Creatinine 1.10, Estimated Creat Clear 100, Estimated GFR 69, Est GFR ( Amer) 83, Glucose 95, Calcium 7.2 L I & O for Labs for Last 24 Hours: Intake & Output 03/22/23 03/23/23 03/24/23 03/25/23 11:59 11:59 11:59 11:59 Intake Total 2067 / 2067 1315.833 / 1315.833 520 / 520 Output Total 7250 / 7250 5900 / 5900 4500 / 4500 1700 / 1700 Balance -5182 / -5182 -3830 / -3830 -3184.167 / -3184.167 -1180 / -1180 Weight 231 lb 224 lb 6.4 oz 219 lb 1.6 oz 213 lb Constitutional: Present no acute distress Comment:: Very sleepy this a.m. Respiratory: Present rhonchi (Coarse rhonchi anteriorly and clear posteriorly) Comment:: Anterior chest wall tenderness Cardiac: Present Irregularly Regular GI: Present soft, tenderness and normal bowel sounds; Absent distention Extremities: Present edema (Improving bilateral lower extremities)
--- NOTE | 2023-03-25 08:36 | P.PN_ITS ---
Subjective *Date: 03/25/23 *Time: 08:54 Interval history: Per nursing: Patient rested. He is off his Bumex drip. He has voided since Marsh catheter removed. He is n.p.o. for possible cardioversion today. Per patient he has some chest wall tenderness. He is voiding QS since Marsh removed. Weight is 213 this morning. Conclusion The difficult study due to poor acoustic windows. Moderate to severe reduction in LV systolic function (LVEF 30%). Severe RV dilation with severe reduction in RV function. Biatrial enlargement. Mild MR. Severe TR. Elevated RVSP > 30 mmHg, but this is likely underestimated and inaccurate due to severe TR. Small circumferential pericardial effusion. No evidence of chamber collapse, but typical echo features of tamponade are less likely to be present in the setting of severe RV dilation and dysfunction. Laboratory data this morning white count is normal at 10,600 with a hemoglobin of 13.1 hematocrit of 40.6. Blood chemistry sodium is 131 potassium has improved slightly to 3.1 with a seat CO2 of 44 BUN and creatinine remain normal Medical Exam Vital signs and Labs for Last 24 Hours: Vital Signs Temp Pulse Pulse Resp BP Pulse Ox O2 Del Method 03/25/23 07:00 Room Air 03/25/23 04:00 98.9 F 95 H 18 103/71 L 92 L Room Air 03/25/23 05:50 76 03/25/23 05:50 80 03/25/23 05:00 Room Air 03/25/23 04:00 90 03/25/23 03:00 Room Air 03/25/23 03:25 97 H 103/69 L 03/25/23 00:00 98.3 F 111 H 16 89/63 L 95 Room Air 03/25/23 01:00 Room Air 03/25/23 00:00 110 H 03/24/23 23:00 Room Air 03/24/23 21:00 Room Air 03/24/23 20:00 110 H Room Air 03/24/23 20:00 98.9 F 106 H 18 117/71 93 L Room Air 03/24/23 20:00 90 03/24/23 19:31 86 03/24/23 19:31 75 03/24/23 18:13 Room Air 03/24/23 17:00 Room Air 03/24/23 16:00 90 03/24/23 16:00 98.2 F 70 20 127/88 100 Room Air 03/24/23 12:00 100 H 03/24/23 15:00 Room Air 03/24/23 13:38 89 03/24/23 13:38 85 03/24/23 12:28 Room Air 03/24/23 11:00 Room Air 03/24/23 12:00 97.9 F 89 18 109/63 L 96 Room Air 03/24/23 10:16 83 03/24/23 10:16 81 03/24/23 09:00 Room Air 03/24/23 09:00 129 H Intake and Output 03/24/23 03/25/23 03/25/23 19:59 03:59 11:59 Intake Total 520 / 520 Output Total 1400 / 1400 300 / 1700 Balance -880 / -880 -300 / -1180 Intake: Intake, Oral Amount 520 / 520 Output: Output, Urine Amount 1400 / 1400 300 / 1700 Other: Number of Voids 1 Number of Unmeasured Voids 0 1 Weight 213 lb Patient Weight 03/25/23 11:59 Weight 213 lb Laboratory Results - last 24 hr 03/25/23 05:21: WBC 10.6, RBC 4.14 L, Hgb 13.1 L D, Hct 40.6 L, MCV 98.1 H, MCH 31.7 H, MCHC 32.3, RDW 16.0, Plt Count 410, MPV 7.7, Neut % (Auto) 71.4, Lymph % (Auto) 15.1, [place] % (Auto) 11.5 H, Eos % (Auto) 1.5, Baso % (Auto) 0.6, Neut # (Auto) 7.6, Lymph # (Auto) 1.6, [place] # (Auto) 1.2 H, Eos # (Auto) 0.2, Baso # (Auto) 0.1, Sodium 131 L, Potassium 3.1 L, Chloride 79 L, Carbon Dioxide 44 H*, Anion Gap 11.1, BUN 19, Creatinine 1.10, Estimated Creat Clear 100, Estimated GFR 69, Est GFR ( Amer) 83, Glucose 95, Calcium 7.2 L I & O for Labs for Last 24 Hours: Intake & Output 03/22/23 03/23/23 03/24/23 03/25/23 11:59 11:59 11:59 11:59 Intake Total 2067 / 2067 2069 / 2069 1315.833 / 1315.833 520 / 520 Output Total 7250 / 7250 5900 / 5900 4500 / 4500 1700 / 1700 Balance -5182 / -5182 -3830 / -3830 -3184.167 / -3184.167 -1180 / -1180 Weight 231 lb 224 lb 6.4 oz 219 lb 1.6 oz 213 lb Constitutional: Present no acute distress and somnolent Comment:: Difficult to understand this morning. Speech is unclear. Respiratory: Present rhonchi (Coarse rhonchi anteriorly and sounds clear posteriorly) Cardiac: Present Irregularly Regular GI: Present soft, tenderness (Diffuse) and normal bowel sounds; Absent distention Extremities: Present edema (Improving edema in bilateral lower extremities.) Neuro: Present alert and oriented x 3 (Difficult to determine his orientation.) Assessment and Plan *Assessment and plan (1) Atrial fibrillation with rapid ventricular response: Status: Acute Category: Medical Code(s): I48.91 - Unspecified atrial fibrillation (2) CHF (congestive heart failure): Status: Chronic Qualifiers: Heart failure chronicity: unspecified Heart failure type: unspecified Qualified Code(s): I50.9 - Heart failure, unspecified Category: Medical Code(s): I50.9 - Heart failure, unspecified (3) Anasarca: Status: Acute Category: Medical Code(s): R60.1 - Generalized edema (4) Necrotic ulceration of fingers: Status: Acute Category: Medical Code(s): I96 - Gangrene, not elsewhere classified (5) Tobacco use: Status: Acute Category: Social Hx Code(s): Z72.0 - Tobacco use (6) Alcoholism: Status: Acute Category: Medical Code(s): F10.20 - Alcohol dependence, uncomplicated (7) COPD (chronic obstructive pulmonary disease): Status: Chronic Category: Medical Code(s): J44.9 - Chronic obstructive pulmonary disease, unspecified (8) Pulmonary hypertension: Status: Chronic Category: Medical Code(s): I27.20 - Pulmonary hypertension, unspecified (9) Cirrhosis, alcoholic: Status: Chronic Category: Medical Code(s): K70.30 - Alcoholic cirrhosis of liver without ascites (10) Hypertension: Status: Chronic Qualifiers: Hypertension type: unspecified Qualified Code(s): I10 - Essential (primary) hypertension Category: Medical Code(s): I10 - Essential (primary) hypertension (11) Anxiety: Status: Acute Category: Medical Code(s): F41.9 - Anxiety disorder, unspecified (12) GERD (gastroesophageal reflux disease): Status: Acute Category: Medical Code(s): K21.9 - Gastro-esophageal reflux disease without esophagitis (13) Hypothyroidism: Status: Chronic Category: Medical Code(s): E03.9 - Hypothyroidism, unspecified Plan Cardiology to follow. Possible cardioversion today. Will continue potassium. Continue with physical therapy. Dr. Bridges entry - Saw patient, agree with above note.
[2023-03-25] MEDS: POTASSIUM CHLORIDE 20MEQ TAB 20 MEQ PO ×2 (08:59→20:06)
[2023-03-25] MEDS: EMPAGLIFLOZIN 10MG TABLET 10 MG PO (08:59)
[2023-03-25] MEDS: SPIRONOLACTONE 25MG TABLET 25 MG PO (08:59)
[2023-03-25] MEDS: DIGOXIN 0.25MG TABLET 250 MCG PO (08:59)
[2023-03-25] MEDS: SACUBITRIL/VALSARTAN 24-26MG TABLET 1 EACH PO ×2 (08:59→20:07)
[2023-03-25] MEDS: FOLIC ACID 1MG TABLET 1 MG PO (08:59)
[2023-03-25] MEDS: APIXABAN 5MG TABLET 5 MG PO ×2 (08:59→20:06)
[2023-03-25] MEDS: SERTRALINE 50MG TABLET 50 MG PO (08:59)
[2023-03-25] MEDS: NICOTINE 21MG/24HR PATCH 21 MG TD (09:00)
--- NOTE | 2023-03-25 10:28 | EXP.CARD.PN ---
Subjective Subjective Date: 03/25/23 Time: 10:28 Principal diagnosis: Volume overload, A-fib RVR Interval history: Unable to do ANTONETTE cardioversion yesterday due to scheduling issue. He remains in A-fib, rate 100-120 this morning. No other issues. He is NPO. Exam Data for Last 24 hours Vital signs and Labs for Last 24 Hours: Temp Pulse Resp BP Pulse Ox O2 Del Method O2 Flow Rate 97.6 F 69 17 94/52 L 92 L Room Air 97 03/25/23 08:00 03/25/23 10:26 03/25/23 08:00 03/25/23 08:00 03/25/23 08:00 03/25/23 09:00 03/21/23 21:00 FiO2 35 03/19/23 09:17 Laboratory Results - last 24 hr 03/25/23 05:21: WBC 10.6, RBC 4.14 L, Hgb 13.1 L D, Hct 40.6 L, MCV 98.1 H, MCH 31.7 H, MCHC 32.3, RDW 16.0, Plt Count 410, MPV 7.7, Neut % (Auto) 71.4, Lymph % (Auto) 15.1, [place] % (Auto) 11.5 H, Eos % (Auto) 1.5, Baso % (Auto) 0.6, Neut # (Auto) 7.6, Lymph # (Auto) 1.6, [place] # (Auto) 1.2 H, Eos # (Auto) 0.2, Baso # (Auto) 0.1, Sodium 131 L, Potassium 3.1 L, Chloride 79 L, Carbon Dioxide 44 H*, Anion Gap 11.1, BUN 19, Creatinine 1.10, Estimated Creat Clear 100, Estimated GFR 69, Est GFR ( Amer) 83, Glucose 95, Calcium 7.2 L I & O for Last 24 hours: Intake & Output 03/22/23 03/23/23 03/24/23 03/25/23 23:59 23:59 23:59 23:59 Intake Total 2055 / 2505 1959 / 2079 895.833 / 895.833 Output Total 7500 / 7500 5900 / 7000 3300 / 3300 0 / 0 Balance -5444 / -4994 -3940 / -4920 -2404.167 / -2404.167 0 / 0 Weight 231 lb 224 lb 6.4 oz 219 lb 1.6 oz 213 lb Constitutional Constitutional: no acute distress and cooperative *Routine HEENT Exam Eye: Present PERRL *Routine Respiratory Exam Respiratory: Present CTA bilaterally; Absent accessory muscle use, wheezes or crackles *Routine Cardiovascular Exam Cardiovascular: Present RRR, Normal S1, Normal S2 and irregularly irregular; Absent murmur, gallop or rubs *Routine Abdominal Exam Abdominal: Present soft; Absent tenderness *Routine Extremities Exam Extremities: Present pulses intact; Absent cyanosis or edema *Routine Skin Exam Skin: Present intact; Absent erythema or wounds *Routine Neurological Exam Neurological: Present alert and oriented X3 Routine Psychiatric Exam Psychiatric: Present cooperative Progress Note: A&P Assessment and plan (1) Atrial fibrillation with rapid ventricular response: Status: Acute (2) CHF (congestive heart failure): Status: Chronic (3) Anasarca: Status: Acute (4) Necrotic ulceration of fingers: Status: Acute (5) Tobacco use: Status: Acute (6) Alcoholism: Status: Acute (7) COPD (chronic obstructive pulmonary disease): Status: Chronic (8) Pulmonary hypertension: Status: Chronic (9) Cirrhosis, alcoholic: Status: Chronic (10) Hypertension: Status: Chronic (11) Anxiety: Status: Acute (12) GERD (gastroesophageal reflux disease): Status: Acute (13) Hypothyroidism: Status: Chronic Assessment and Plan Assessment and Plan for All Diagnoses:: A-fib, RVR - new dx this admission in setting of ETOH abuse (1/5 liquor daily) and severe vol overload - CHADS-VASC = 2, on Eliquis - Remains 100-120, Failing rate control this admission including Toprol 100 TID and Digoxin. No Cardizem due to low EF - Pt is NPO and agreeable to ANTONETTE/DCCV today. Acute HFrEF/ EF 30% NYHA II-III Pulmonary HTN Anasarca/volume overload -New dx this admission in setting of ETOH abuse (1/5 of liquor daily) -presented with severe vol overload with pitting edema and anasarca -Echo: EF of 30% with septal regional wall abnormality noted. RV is severely dilated and dysfunctional. Severe TR. Small pericardial effusion. Elevated RVSP >30 -CTA chest negative for pulmonary embolism or dissection, small pleural effusions with mild bibasilar atelectasis present. Diffuse anasarca. Mildly enlarged retrocrural nodes which may be reactive or neoplastic. Plan: - [facility] as outpatient - LifeVest Fitted - pt states he probably won't wear it though - Diuresed >20L and appears euvolemic on exam, bumex reduced to PO daily. - Cont Entresto, Aldactone, Jardiance ETOH Abuse with Cirrhosis -Admits to drinking 1/5 of liquor daily prior to admission - presented with anasarca and multiorgan failure - defer management to primary service Tobacco use -Smoking cessation advised CV summary 03/25: Tolderating GDMT for HF. ANTONETTE/DCCV this afternoon. ADDENDUM: ANTONETTE completed without complication, no clot noted in left atrium. Patient failed attempted cardioversion x 2 at 150 and 200 J. Patient will be transferred back to floor and started on IV amiodarone with additional attempt at cardioversion in 1 to 2 days.
--- NOTE | 2023-03-25 11:00 | CA_ITS ---
APPROVED REPORT EXAM: Comprehensive 2D, Doppler, and color-flow Echocardiogram Strategy Specialist: Vanessa Martinez MARSHA Ht: 6 ft 0 in Wt: 213lbs BSA: 2.19 BP: 120/75 mmHg Indications: A-FIB WITH CARDIOVERSION,ABLATIONS X 2 Procedure After obtaining informed consent, patient underwent transesophageal echo in the [facility]. Type of Sedation : MAC Sedation was administered by Austin WuNShannan Sedation start time: 2:15 Case end Time: 2:35 Sedation was achieved intravenously with: Versed () Propofol () Transesophageal probe was inserted and advanced into esophagus without difficulty by Dr. Thaddeus Garcia. The ANTONETTE was performed without complications. Synchronized Cardioversion attempted: Unsuccessful Rhythm following Synchronized Cardioversion: atrial fibrillation Throughout the procedure, the blood pressure, pulse oximetry, cardiac rhythm, and rate were monitored. The patient tolerated the procedure without adverse effects. Recovery from conscious sedation was uneventful and vital signs were stable. Left Ventricle The left ventricle is normal size. The left ventricular systolic function is moderately to severely reduced There is normal left ventricular wall thickness. There is moderate to severe global hypokinesis present. LVEF is 30%. Right Ventricle Right ventricle is severely dilated. Right ventricle is severely hypokinetic. Atria The left atrium size is normal. There is no thrombus suspected in the left atrium or the left atrial appendage. The right atrium size is normal. The interatrial septum bows leftward, consistent with elevated RA pressure. The interatrial septum is intact with no evidence for an atrial septal defect. Aortic Valve The aortic valve is normal in structure. There is no aortic valvular stenosis. Mild aortic regurgitation. Mitral Valve The mitral valve is normal in structure. No evidence of mitral valve stenosis. Trace mitral regurgitation. Tricuspid Valve The tricuspid valve leaflets are thin and pliable. Severe tricuspid regurgitation. RVSP is 25 mmHg + RA pressure (may be underestimated due to severe TR). Pulmonic Valve The pulmonary valve is normal in structure. Trace pulmonic regurgitation. Great Vessels The aortic root is normal in size. The ascending aorta is normal in size. Pericardium There is no pericardial effusion. Other Information Study Quality: Adequate Conclusion Moderate to severe reduction in LV systolic function (LVEF 30%). Severe RV dilation with severe reduction in RV function. Mild AI. Severe TR. No evidence of LA or SERGEY thrombus. The patient underwent 2 unsuccessful attempts for DCCV at 150 J and 200 J, respectively. During both attempts, he continues to be in atrial fibrillation without conversion to normal sinus rhythm. Postprocedure, he was started on amiodarone IV loading. Electronically signed by : Adenike Garcia MD 03/26/2023 12:39:16
--- NOTE | 2023-03-25 12:46 | ECG_ITS ---
APPROVED REPORT Exam: Resting ECG HR:88 bpm ECG Measurements Heart Rate 88 AXES QRSd 149 QRS 101 QT 442 T 168 QTc 487 Conclusion ATRIAL FIBRILLATION RIGHT AXIS DEVIATION [QRS AXIS > 100] RIGHT BUNDLE BRANCH BLOCK [120+ ms QRS DURATION, UPRIGHT V1, 40+ ms S IN I/aVL/V4/V5/V6] MODERATE T-WAVE ABNORMALITY, CONSIDER ANTEROLATERAL ISCHEMIA [-0.1+ mV T-WAVE IN V3-V6] ABNORMAL ECG UNCONFIRMED REPORT Electronically signed by : Sravan Wayne MD 03/28/2023 14:47:32
[2023-03-25 13:18] LABS: INR 1.29 (0.9-1.1); Prothrombin Time 13.7 seconds (10.1-12.5)
--- NOTE | 2023-03-25 13:25 | P.PNANES_ITS ---
[facility] Disclaimer: The information contained in this section may have been updated after the patient was seen, as this information can be updated by other users. Medical History Alcoholism Anxiety Atrial fibrillation with rapid ventricular response CHF (congestive heart failure) Cirrhosis, alcoholic COPD (chronic obstructive pulmonary disease) GERD (gastroesophageal reflux disease) Hypertension Paroxysmal atrial fibrillation Pulmonary hypertension Tobacco use Surgical History History of cardiac radiofrequency ablation History of discectomy Family History Other Cancer Hypertension Stroke Substance abuse Social History Smoking Status: Current every day smoker tobacco type: cigarettes packs per day: 2 alcohol intake: current substance use type: denies use current occupational status: employed Travel in the last 8 weeks: None household members: significant other housing: house 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 current occupational exposures/hazards: No caffeine: Yes [facility] [place] Anesthesia Checklist Patient Identification Patient Identification: Arm Band and Verbal (Name & ) Structural Data Admitted From: Inpatient Planned Operative Procedure/s: ANTONETTE/Cardioversion Consent for Planned Operative Procedure(s) Verified: Yes NPO Status Verified Time NPO: 00:00 Chart Verification Results Verified: CBC, BMP and PT, PTT, INR Additional verifications Anesthesia Reactions: No Airway Assessment Mallampati Score:: Class II C-Spine Mobility Assessed: Yes Dentition: Edentulous Neurological Assessment Level of Consciousness: Awake Hx Seizures: No Numbness or tingling in extremities: No Anesthesia Plan Anesthesia Risk discussed: Yes Anesthesia Plan: Verified ASA Class: IV Anesthesia Type: MAC
--- NOTE | 2023-03-25 14:27 | SUR.OPER ---
1425 - CARDIOVERSION AT 150J PERFORMED BY DR ZIMMER; UNSUCCESSFUL. 1426 - CARDIOVERSION AT 200J PERFORMED BY DR ZIMMER; UNSUCCESSFUL. ALL SHOCKS DELIVERED BY DR ZIMMER.
[2023-03-25] MEDS: AMIODARONE HCL 150 MG in DEXTROSE 5 % IN WATER 100 ML 618 MG IV (15:50)
[2023-03-25] MEDS: AMIODARONE HCL 900 MG in DEXTROSE 5 % IN WATER 500 ML 34.5300000000000011 MG IV (16:00)
[2023-03-25] MEDS: MULTIVITAMIN TABLET 1 EACH PO (17:25)
[2023-03-25] MEDS: METOPROLOL TARTRATE 50MG TABLET 100 MG PO (20:08)
[2023-03-25] MEDS: OXYCODONE 5MG IMMEDIATE RELEASE TABLET 5 MG PO (20:10)
[2023-03-26] VITALS (22 sets, daily range): BP systolic 90–144; BP diastolic 39–78; PULSE 58–114; RESP 14–22; TEMP 35.7–36.8; O2SAT 90–96; BMI 28.3
[2023-03-26] MEDS: OXYCODONE 5MG IMMEDIATE RELEASE TABLET 5 MG PO (03:14)
--- NOTE | 2023-03-26 05:04 | PC.NURSE ---
Patient had an overall good night. Initially was a little confused at the beginning of shift but over the evening he became A&O x 4. Weaned from NC to room air w/o complaints of SOB. Amio gtt decreased to 0.5mg/min at 2200. Able to void small amounts each time in urinal. Scrotum still 3-4+ edema, elevated on a towel for comfort. RAC IV infiltrated, 20 LAC and 20 LFA started and RAC IV removed. Patient given PRN Oxycodone for back/scrotal/throat pain. Ate lots of candy overnight. Slept on and off.
--- NOTE | 2023-03-26 05:10 | PC.NURSE ---
CIWA of 0 overnight.
[2023-03-26] MEDS: IPRATROPIUM/ALBUTEROL 3 ML NEB IH ×4 (06:00→20:29)
--- NOTE | 2023-03-26 08:15 | EXP.ACUTE.PN ---
Subjective *Date: 03/26/23 *Time: 09:10 Interval history: The patient's ANTONETTE was completed yesterday and there was no clot in the left atrium. He failed cardioversion attempts and was transferred back to the second floor and started on an amiodarone drip. He denies any pain today and states his swelling has improved. He has no shortness of breath. Medical Exam Vital signs and Labs for Last 24 Hours: Vital Signs Temp Pulse Pulse Pulse Resp BP Pulse Ox 03/26/23 07:57 98.3 F 03/26/23 06:00 80 03/26/23 06:00 82 03/26/23 06:50 03/26/23 06:00 91 H 14 132/78 94 L 03/26/23 04:47 03/26/23 04:00 64 03/26/23 04:00 96.2 F L 74 22 106/59 L 94 L 03/26/23 03:17 95 03/26/23 03:00 03/26/23 02:00 83 20 101/39 L 95 03/26/23 00:43 03/26/23 00:22 95 03/26/23 00:00 97.5 F L 79 18 144/77 H 96 03/25/23 20:00 108 H 03/25/23 22:52 03/25/23 22:00 75 20 93/62 L 94 L 03/25/23 21:09 67 03/25/23 21:09 66 03/25/23 20:59 03/25/23 20:00 99.0 F 114 H 22 103/60 L 90 L 03/25/23 19:32 115 H 20 96 03/25/23 16:00 110 H 03/25/23 18:30 106 H 18 95/50 L 95 03/25/23 18:27 03/25/23 17:30 100 H 16 109/68 L 90 L 03/25/23 18:00 118 H 18 106/58 L 95 03/25/23 17:00 99 H 18 154/117 H 90 L 03/25/23 15:30 98.3 F 110 H 16 104/58 L 95 03/25/23 15:15 98.3 F 77 18 106/63 L 94 L 03/25/23 16:45 102 H 16 89/61 L 93 L 03/25/23 16:30 113 H 20 93/59 L 91 L 03/25/23 16:15 98 H 18 81/58 L 93 L 03/25/23 17:00 03/25/23 16:00 93 L 03/25/23 16:00 100 H 16 94/65 L 94 L 03/25/23 15:55 03/25/23 14:54 94 H 17 100/64 L 95 03/25/23 14:44 97 H 17 99/70 L 94 L 03/25/23 14:39 88 17 98/68 L 96 03/25/23 14:02 03/25/23 09:01 100 H 03/25/23 11:00 03/25/23 10:26 69 03/25/23 10:26 74 03/25/23 09:00 03/25/23 08:59 92 H O2 Del Method O2 Flow Rate 03/26/23 07:57 03/26/23 06:00 03/26/23 06:00 03/26/23 06:50 Room Air 03/26/23 06:00 Room Air 03/26/23 04:47 Room Air 03/26/23 04:00 03/26/23 04:00 Room Air 03/26/23 03:17 Room Air 03/26/23 03:00 Room Air 03/26/23 02:00 Room Air 03/26/23 00:43 Nasal Cannula 2 03/26/23 00:22 Nasal Cannula 2 03/26/23 00:00 Nasal Cannula 2 03/25/23 20:00 03/25/23 22:52 Nasal Cannula 3 03/25/23 22:00 Nasal Cannula 3 03/25/23 21:09 03/25/23 21:09 03/25/23 20:59 Nasal Cannula 3 03/25/23 20:00 Nasal Cannula 2 03/25/23 19:32 Nasal Cannula 2 03/25/23 16:00 03/25/23 18:30 Nasal Cannula 2 03/25/23 18:27 Nasal Cannula 2 03/25/23 17:30 Nasal Cannula 2 03/25/23 18:00 Nasal Cannula 2 03/25/23 17:00 Nasal Cannula 2 03/25/23 15:30 Nasal Cannula 2 03/25/23 15:15 Nasal Cannula 2 03/25/23 16:45 Nasal Cannula 2 03/25/23 16:30 Nasal Cannula 2 03/25/23 16:15 Nasal Cannula 2 03/25/23 17:00 Nasal Cannula 2 03/25/23 16:00 Nasal Cannula 2 03/25/23 16:00 Nasal Cannula 2 03/25/23 15:55 Nasal Cannula 2 03/25/23 14:54 Nasal Cannula 2 03/25/23 14:44 Nasal Cannula 2 03/25/23 14:39 Nasal Cannula 2 03/25/23 14:02 Nasal Cannula 03/25/23 09:01 03/25/23 11:00 Room Air 03/25/23 10:26 03/25/23 10:26 03/25/23 09:00 Room Air 03/25/23 08:59 Intake and Output 03/25/23 03/26/23 03/26/23 19:59 03:59 11:59 Intake Total 580 / 1577.115 517.115 / 1577.115 480 / 1577.115 Output Total 200 / 550 200 / 550 150 / 550 Balance 380 / 1027.115 317.115 / 1027.115 330 / 1027.115 Intake: Intake, Oral Amount 580 / 1060 480 / 1060 Intake, Total IV Amount 517.115 / 517.115 Amiodarone HCl 900 mg In 299 / 299 Dextrose 5 % in Water 500 ml @ 1 MG/MIN 34.533 mls/hr IV . Q15H1M COUNTS INCLUDE 234 BEDS AT THE [facility] Rx#:[id number] Output: Output, Urine Amount 200 / 550 200 / 550 150 / 550 Other: Number of Voids 1 Weight 213 lb 13.574 oz Patient Weight 03/26/23 11:59 Weight 213 lb 13.574 oz Laboratory Results - last 24 hr 03/25/23 13:01: PT 13.7 H, INR 1.29 H I & O for Labs for Last 24 Hours: Intake & Output 03/23/23 03/24/23 03/25/23 03/26/23 11:59 11:59 11:59 11:59 Intake Total 2070 / 2070 1315.833 / 1315.833 520 / 520 1577.115 / 1577.115 Output Total 5900 / 5900 4500 / 5500 1700 / 1700 550 / 550 Balance -3830 / -3830 -3184.167 / -4184.167 -1180 / -1180 1027.115 / 1027.115 Weight 224 lb 6.4 oz 219 lb 1.6 oz 213 lb 213 lb 13.574 oz Microbiology Reports for the Last 24 Hours: Microbiology 03/19/23 08:45 Blood Blood Culture - Final Constitutional: Present no acute distress Respiratory: Present rhonchi (Coarse rhonchi anteriorly and sounds clear posteriorly) Cardiac: Present Irregularly Regular GI: Present soft and normal bowel sounds; Absent distention or tenderness Extremities: Present edema (Much improved) Neuro: Present alert and oriented x 3 (Difficult to determine his orientation.) Assessment and Plan *Assessment and plan (1) Atrial fibrillation with rapid ventricular response: Status: Acute Category: Medical Code(s): I48.91 - Unspecified atrial fibrillation (2) CHF (congestive heart failure): Status: Chronic Qualifiers: Heart failure chronicity: unspecified Heart failure type: unspecified Qualified Code(s): I50.9 - Heart failure, unspecified Category: Medical Code(s): I50.9 - Heart failure, unspecified (3) Anasarca: Status: Acute Category: Medical Code(s): R60.1 - Generalized edema (4) Necrotic ulceration of fingers: Status: Acute Category: Medical Code(s): I96 - Gangrene, not elsewhere classified (5) Tobacco use: Status: Acute Category: Social Hx Code(s): Z72.0 - Tobacco use (6) Alcoholism: Status: Acute Category: Medical Code(s): F10.20 - Alcohol dependence, uncomplicated (7) COPD (chronic obstructive pulmonary disease): Status: Chronic Category: Medical Code(s): J44.9 - Chronic obstructive pulmonary disease, unspecified (8) Pulmonary hypertension: Status: Chronic Category: Medical Code(s): I27.20 - Pulmonary hypertension, unspecified (9) Cirrhosis, alcoholic: Status: Chronic Category: Medical Code(s): K70.30 - Alcoholic cirrhosis of liver without ascites (10) Hypertension: Status: Chronic Qualifiers: Hypertension type: unspecified Qualified Code(s): I10 - Essential (primary) hypertension Category: Medical Code(s): I10 - Essential (primary) hypertension (11) Anxiety: Status: Acute Category: Medical Code(s): F41.9 - Anxiety disorder, unspecified (12) GERD (gastroesophageal reflux disease): Status: Acute Category: Medical Code(s): K21.9 - Gastro-esophageal reflux disease without esophagitis (13) Hypothyroidism: Status: Chronic Category: Medical Code(s): E03.9 - Hypothyroidism, unspecified Plan On an amiodarone drip now. Cardiology to follow. Dr. Bridges entry - Saw patient, agree with above note.
[2023-03-26] MEDS: FOLIC ACID 1MG TABLET 1 MG PO (08:58)
[2023-03-26] MEDS: APIXABAN 5MG TABLET 5 MG PO ×2 (08:58→20:24)
[2023-03-26] MEDS: POTASSIUM CHLORIDE 20MEQ TAB 20 MEQ PO ×3 (08:58→20:24)
[2023-03-26] MEDS: NICOTINE 21MG/24HR PATCH 21 MG TD (08:59)
[2023-03-26] MEDS: EMPAGLIFLOZIN 10MG TABLET 10 MG PO (08:59)
[2023-03-26] MEDS: SERTRALINE 50MG TABLET 50 MG PO (08:59)
[2023-03-26] MEDS: DIGOXIN 0.25MG TABLET 250 MCG PO (09:06)
[2023-03-26] MEDS: METOPROLOL TARTRATE 50MG TABLET 100 MG PO ×3 (10:20→20:26)
[2023-03-26] MEDS: SPIRONOLACTONE 25MG TABLET 25 MG PO (10:20)
[2023-03-26] MEDS: SACUBITRIL/VALSARTAN 24-26MG TABLET 1 EACH PO ×2 (10:20→20:24)
[2023-03-26 10:41] LABS: Chloride 82 mmol/L (98-107); Potassium 3.6 mmoL/L (3.5-5.1); Sodium 130 mmol/L (136-145)
[2023-03-26 10:44] LABS: Blood Urea Nitrogen 22 mg/dl (9-20); Creatinine Clearance Estimated 100 mL/min (50-200); Estimated Glomerular Filt Rate 69 ml/min (>60); GFR (African American) 83 ML/MIN (>60)
[2023-03-26 10:45] LABS: Calcium 7.3 mg/dl (8.4-10.2); Glucose 127 mg/dl (74-100)
[2023-03-26 10:49] LABS: Magnesium 1.4 mg/dl (1.6-2.3)
--- NOTE | 2023-03-26 10:51 | CT_ITS ---
FINAL REPORT TECHNIQUE: Multiple axial CT sections were performed from the foramen magnum to the vertex. Coronal reformatted images were also obtained. Precontrast and postcontrast injection images were obtained. This study was performed with technique to keep radiation doses as low as reasonably achievable, (ALARA). Individualized dose reduction techniques using automated exposure control or adjustment of mA and/or kV according to the patient size were employed. CLINICAL HISTORY: somnolence, confused speech FINDINGS: There is moderate atrophy. The ventricles are normal in size. There is no evidence of hemorrhage. No masses are identified. No extra-axial fluid collection is seen. There is minimal mucoperiosteal thickening in the maxillary sinuses. No osseous abnormality is seen on the bone window images. Postcontrast images demonstrate no abnormal enhancement. IMPRESSION: Atrophy without acute intracranial abnormality. Reviewed, Interpreted and Dictated by Nathanael Knowles MD Transcribed by Joan Bliss Authenticated and [facility]
--- NOTE | 2023-03-26 10:55 | EXP.CARD.PN ---
Subjective Subjective Date: 03/26/23 Time: 10:00 Principal diagnosis: Volume overload, A-fib RVR Interval history: Failed cardioversion yesterday x 2. On amiodarone drip. Here is rate controlled, 100 bpm. Denies chest pain or shortness of breath. He is ordering loads of candy from [employer], he has an entire box of pop rocks which he is eating constantly. We discussed reducing sugar intake. He is asking about ordering pizza and burgers. He is somnolent at times, dozing off during exam and sometimes his speech is confused or nonsensical. No focal neurologic deficits otherwise Exam Data for Last 24 hours Vital signs and Labs for Last 24 Hours: Temp Pulse Resp BP Pulse Ox O2 Del Method O2 Flow Rate 98.3 F 99 H 18 90/58 L 90 L Nasal Cannula 2 03/26/23 07:57 03/26/23 09:06 03/26/23 08:00 03/26/23 08:00 03/26/23 08:00 03/26/23 10:48 03/26/23 08:00 FiO2 35 03/19/23 09:17 Laboratory Results - last 24 hr 03/25/23 13:01: PT 13.7 H, INR 1.29 H 03/26/23 09:00: Sodium 130 L, Potassium 3.6, Chloride 82 L, BUN 22 H, Creatinine 1.10, Estimated Creat Clear 100, Estimated GFR 69, Est GFR ( Amer) 83, Glucose 127 H, Calcium 7.3 L, Magnesium 1.4 L I & O for Last 24 hours: Intake & Output 03/23/23 03/24/23 03/25/23 03/26/23 23:59 23:59 23:59 23:59 Intake Total 1959 / 0 895.833 / 787.720 3559.115 / 1018.115 559 / 559 Output Total 5900 / 7000 3300 / 3300 275 / 275 475 / 475 Balance -3940 / -4920 -2404.167 / -2404.167 743.115 / 743.115 84 / 84 Weight 224 lb 6.4 oz 219 lb 1.6 oz 213 lb 213 lb 13.574 oz Microbiology Reports for the Last 24 Hours: Microbiology 03/19/23 08:45 Blood Blood Culture - Final Constitutional Constitutional: no acute distress and cooperative *Routine HEENT Exam Eye: Present PERRL *Routine Respiratory Exam Respiratory: Present CTA bilaterally; Absent accessory muscle use, wheezes or crackles *Routine Cardiovascular Exam Cardiovascular: Present RRR, Normal S1, Normal S2 and irregularly irregular; Absent murmur, gallop or rubs *Routine Abdominal Exam Abdominal: Present soft and distended; Absent tenderness *Routine Extremities Exam Extremities: Present pulses intact; Absent cyanosis or edema *Routine Skin Exam Skin: Present intact; Absent erythema or wounds *Routine Neurological Exam Neurological: Present alert and oriented X3; Absent motor deficit Comments: somnolent at time, speech is sometimes off topic and nonlinear Routine Psychiatric Exam Psychiatric: Present cooperative Progress Note: A&P Assessment and plan (1) Atrial fibrillation with rapid ventricular response: Status: Acute (2) CHF (congestive heart failure): Status: Chronic (3) Anasarca: Status: Acute (4) Necrotic ulceration of fingers: Status: Acute (5) Tobacco use: Status: Acute (6) Alcoholism: Status: Acute (7) COPD (chronic obstructive pulmonary disease): Status: Chronic (8) Pulmonary hypertension: Status: Chronic (9) Cirrhosis, alcoholic: Status: Chronic (10) Hypertension: Status: Chronic (11) Anxiety: Status: Acute (12) GERD (gastroesophageal reflux disease): Status: Acute (13) Hypothyroidism: Status: Chronic Assessment and Plan Assessment and Plan for All Diagnoses:: A-fib, RVR - new dx this admission in setting of ETOH abuse (1/5 liquor daily) and severe vol overload - CHADS-VASC = 2, on Eliquis - Remains 100-120, Failing rate control this admission including Toprol 100 TID and Digoxin. No Cardizem due to low EF - ANTONETTE/DCCV 03/25 - neg for LA thrombus, DCCV x2 unsuccessful, started Amio IV - 03/26: remains on Amio IV, rate controlled 100bpm. Discussed risks/benefits of Amio. He carries dx of cirrhosis but has normal liver enzymes, will need close monitoring. Acute HFrEF/ EF 30% NYHA II-III Pulmonary HTN Anasarca/volume overload -New dx this admission in setting of ETOH abuse (1/5 of liquor daily) -presented with severe vol overload with pitting edema and anasarca -Echo: EF of 30% with septal regional wall abnormality noted. RV is severely dilated and dysfunctional. Severe TR. Small pericardial effusion. Elevated RVSP >30 -CTA chest negative for pulmonary embolism or dissection, small pleural effusions with mild bibasilar atelectasis present. Diffuse anasarca. Mildly enlarged retrocrural nodes which may be reactive or neoplastic. Plan: - [facility] as outpatient - LifeVest Fitted - pt states he probably won't wear it though - Diuresed >20L and appears euvolemic on exam, bumex reduced to PO daily. - Cont Entresto, Aldactone, Jardiance ETOH Abuse with Cirrhosis -Admits to drinking 1/5 of liquor daily prior to admission - presented with anasarca and multiorgan failure - defer management to primary service Tobacco use -Smoking cessation advised Somnolence and Nonlinear Speech Patterns - noted yesterday and today. Sometimes pt alert and speaking clearly, other times his speech is nonsensical or off topic. Unsure how much of this is baseline vs a change. Ammonia level normal on admission, will repeat now, check CTA head, and ETOH level CV summary 03/26: Tolerating GDMT for HF, tolerating IV Amio, is rate controlled. Continue IV Amio, check on AMS, keep NPO after midnight for attempt repeat DCCV tomorrow.
[2023-03-26 11:21] LABS: Anion Gap 6.6 mEq/L (5-15); Carbon Dioxide 45 mmol/L (22.0-30.0)
[2023-03-26 11:49] LABS: Ammonia 24 umol/L (9-30)
[2023-03-26] MEDS: IOPAMIDOL-370 (76%);100ML BOTTLE 100 ML IV (12:22)
[2023-03-26 12:23] LABS: Ethyl Alcohol < 10 mg/dl (0-10)
[2023-03-26] MEDS: AMIODARONE HCL 900 MG in DEXTROSE 5 % IN WATER 500 ML 17.2699999999999996 MG IV (14:17)
[2023-03-26] MEDS: HYALURONIDASE, HUMAN RECOMB. 150 UNIT/ML VIAL IJ (14:23)
[2023-03-26] MEDS: MULTIVITAMIN TABLET 1 EACH PO (17:23)
--- NOTE | 2023-03-26 17:49 | PC.WOUNDNOTE ---
redness/swelling noted to rfa. iv infiltration
--- NOTE | 2023-03-26 18:39 | PC.NURSE ---
PT IS RESTING IN BED. ALERT AND ORIENTED X3. PT HAS BEEN VERY DROWSY T/O THE SHIFT. LUNG SOUNDS DIMINISHED WITH SCATTERED RHONCHI. ABDOMEN FIRM WITH ACTIVE BOWEL SOUNDS. GENERALIZED EDEMA NOTED. 2 + EDEMA NOTED TO BLE. 3+ SCROTAL EDEMA NOTED. REDNESS/SWELLING/TENDERNESS NOTED TO RFA FROM IV INFILTRATION. AREA WAS INJECTED WITH HYLENEX. PT HAS BEEN VOIDING USING THE URINAL. LARGE BOWEL MOVEMENT THIS SHIFT. WILL CONTINUE TO MONITOR.
[2023-03-27] VITALS (17 sets, daily range): BP systolic 93–108; BP diastolic 60–72; PULSE 62–84; RESP 16–21; TEMP 36.5–37.2; O2SAT 93–98; BMI 28.3
[2023-03-27] MEDS: IPRATROPIUM/ALBUTEROL 3 ML NEB IH ×4 (05:10→20:16)
--- NOTE | 2023-03-27 06:09 | PC.NURSE ---
Addendum entered by Ale Taveras RN 03/27/23 06:12: Bed alarm checked and activated. Original Note: Pt able to rest overnight. Did wake up a few times confused, once screaming for his dogs and another saying call 911. Reoriented pt and easily redirectable. Still on Amio gtt. HR 70-80 still AFIB. NPO since MN for cardioversion today. BM x2 and still voiding small amounts at a time via urinal.
[2023-03-27 07:32] LABS: Blood Urea Nitrogen 17 mg/dl (9-20); Calcium 7.7 mg/dl (8.4-10.2); Chloride 87 mmol/L (98-107); Creatinine Clearance Estimated 101 mL/min (50-200); Estimated Glomerular Filt Rate 69 ml/min (>60); GFR (African American) 83 ML/MIN (>60); Glucose 93 mg/dl (74-100); Potassium 3.8 mmoL/L (3.5-5.1); Sodium 132 mmol/L (136-145)
[2023-03-27 07:39] LABS: Anion Gap 9.8 mEq/L (5-15); Carbon Dioxide 39 mmol/L (22.0-30.0)
[2023-03-27 07:40] LABS: Basophils # 0.1 K/mm3 (0-0.2); Basophils % 1.1 % (0.1-2.0); Eosinophils # 0.3 K/mm3 (0.0-0.4); Eosinophils % 3.1 % (0.1-12.0); Hematocrit 37.1 % (42.0-52.0); Hemoglobin 12.1 g/dL (14.1-18.0); Lymphocytes % 24.7 % (10-50); Mean Corpuscular HGB Conc 32.6 g/dL (31.8-35.4); Mean Corpuscular Hemoglobin 31.1 pg (27.0-31.2); Mean Corpuscular Volume 95.2 fl (80-94); Mean Platelet Volume 7.7 fl (7.4-10.4); Monocytes # 0.7 K/mm3 (0.1-1.0); Monocytes % 8.9 % (1.7-9.3); Neutrophils # 5.1 K/mm3 (1.8-7.8); Neutrophils % 62.2 % (37.0-80.0); Platelet Count 435 K/mm3 (142-424); Red Cell Distribution Width 15.7 % (11.5-17.5); White Blood Count 8.1 K/mm3 (4.8-10.8)
[2023-03-27] MEDS: DIGOXIN 0.25MG TABLET 250 MCG PO (08:40)
[2023-03-27] MEDS: APIXABAN 5MG TABLET 5 MG PO ×2 (08:40→21:09)
[2023-03-27] MEDS: EMPAGLIFLOZIN 10MG TABLET 10 MG PO (08:40)
[2023-03-27] MEDS: METOPROLOL TARTRATE 50MG TABLET 100 MG PO ×3 (08:40→21:08)
[2023-03-27] MEDS: FOLIC ACID 1MG TABLET 1 MG PO (08:40)
[2023-03-27] MEDS: POTASSIUM CHLORIDE 20MEQ TAB 20 MEQ PO ×3 (08:41→21:08)
[2023-03-27] MEDS: SERTRALINE 50MG TABLET 50 MG PO (08:41)
[2023-03-27] MEDS: NICOTINE 21MG/24HR PATCH 21 MG TD (08:41)
[2023-03-27] MEDS: SACUBITRIL/VALSARTAN 24-26MG TABLET 1 EACH PO ×2 (08:41→21:08)
[2023-03-27] MEDS: SPIRONOLACTONE 25MG TABLET 25 MG PO (08:41)
--- NOTE | 2023-03-27 09:00 | EXP.ACUTE.PN ---
Subjective *Date: 03/27/23 *Time: 09:08 Interval history: Patient states he is feeling about the same today. He denies any pain other than where his IV site infiltrated on his right arm yesterday. He slept well and has been eating well. Medical Exam Vital signs and Labs for Last 24 Hours: Vital Signs Temp Pulse Pulse Resp BP Pulse Ox O2 Del Method 03/27/23 08:40 78 03/27/23 08:26 79 97 Room Air 03/27/23 08:00 97.8 F 03/27/23 08:00 75 18 108/66 L 97 Room Air 03/27/23 06:13 Room Air 03/27/23 05:10 77 03/27/23 05:10 75 03/27/23 05:10 96 Room Air 03/27/23 05:56 78 20 108/62 L 95 Room Air 03/27/23 04:37 Room Air 03/27/23 04:00 80 03/27/23 04:00 98.9 F 78 16 93/70 L 95 Room Air 03/27/23 03:13 95 Room Air 03/27/23 02:46 Room Air 03/27/23 02:00 84 21 108/63 L 97 Room Air 03/27/23 00:37 Room Air 03/27/23 00:00 98 F 71 17 101/68 L 96 Room Air 03/26/23 22:30 Room Air 03/26/23 22:00 75 20 93/60 L 95 Room Air 03/26/23 20:00 63 03/26/23 20:41 Room Air 03/26/23 20:30 76 03/26/23 20:30 83 03/26/23 20:00 97.8 F 03/26/23 20:00 72 20 93/63 L 94 L Nasal Cannula 03/26/23 19:39 76 93 L Nasal Cannula 03/26/23 18:00 64 20 93/65 L 92 L Nasal Cannula 03/26/23 18:31 Nasal Cannula 03/26/23 16:00 Nasal Cannula 03/26/23 17:00 Nasal Cannula 03/26/23 16:00 80 03/26/23 16:00 72 18 95/58 L 91 L Nasal Cannula 03/26/23 15:20 97.9 F 03/26/23 15:00 Nasal Cannula 03/26/23 14:00 78 20 98/68 L 90 L Nasal Cannula 03/26/23 14:15 75 03/26/23 14:15 76 03/26/23 13:00 Nasal Cannula 03/26/23 12:00 58 L 03/26/23 12:00 67 18 97/57 L 94 L Nasal Cannula 03/26/23 10:00 114 H 18 98/43 L 93 L Nasal Cannula 03/26/23 10:45 75 03/26/23 10:45 89 03/26/23 11:17 97.8 F 03/26/23 10:48 Nasal Cannula 03/26/23 09:06 99 H O2 Flow Rate 03/27/23 08:40 03/27/23 08:26 03/27/23 08:00 03/27/23 08:00 03/27/23 06:13 03/27/23 05:10 03/27/23 05:10 03/27/23 05:10 03/27/23 05:56 03/27/23 04:37 03/27/23 04:00 03/27/23 04:00 03/27/23 03:13 03/27/23 02:46 03/27/23 02:00 03/27/23 00:37 03/27/23 00:00 03/26/23 22:30 03/26/23 22:00 03/26/23 20:00 03/26/23 20:41 03/26/23 20:30 03/26/23 20:30 03/26/23 20:00 03/26/23 20:00 03/26/23 19:39 03/26/23 18:00 2 03/26/23 18:31 2 03/26/23 16:00 2 03/26/23 17:00 2 03/26/23 16:00 03/26/23 16:00 2 03/26/23 15:20 03/26/23 15:00 2 03/26/23 14:00 2 03/26/23 14:15 03/26/23 14:15 03/26/23 13:00 03/26/23 12:00 03/26/23 12:00 2 03/26/23 10:00 2 03/26/23 10:45 03/26/23 10:45 03/26/23 11:17 03/26/23 10:48 03/26/23 09:06 Intake and Output 03/26/23 03/27/23 03/27/23 19:59 03:59 11:59 Intake Total 665 / 869 94 / 869 110 / 869 Output Total 200 / 1025 225 / 1025 600 / 1025 Balance 465 / -156 -131 / -156 -490 / -156 Intake: Intake, Oral Amount 480 / 480 Intake, Total IV Amount 185 / 389 94 / 389 110 / 389 Amiodarone HCl 900 mg In 185 / 389 94 / 389 110 / 389 Dextrose 5 % in Water 500 ml @ 1 MG/MIN 34.533 mls/hr IV . Q15H1M [facility] Rx#:[id number] Output: Output, Urine Amount 200 / 1025 225 / 1025 600 / 1025 Other: Weight 214 lb 4.629 oz Patient Weight 03/27/23 11:59 Weight 214 lb 4.629 oz Laboratory Results - last 24 hr 03/26/23 09:00: Sodium 130 L, Potassium 3.6, Chloride 82 L, Carbon Dioxide 45 H*, Anion Gap 6.6, BUN 22 H, Creatinine 1.10, Estimated Creat Clear 100, Estimated GFR 69, Est GFR ( Amer) 83, Glucose 127 H, Calcium 7.3 L, Magnesium 1.4 L 03/26/23 11:25: Ammonia 24, Plasma/Serum Alcohol < 10 03/27/23 06:50: WBC 8.1, RBC 3.90 L, Hgb 12.1 L, Hct 37.1 L, MCV 95.2 H, MCH 31.1, MCHC 32.6, RDW 15.7, Plt Count 435 H, MPV 7.7, Neut % (Auto) 62.2, Lymph % (Auto) 24.7, [place] % (Auto) 8.9, Eos % (Auto) 3.1, Baso % (Auto) 1.1, Neut # (Auto) 5.1, Lymph # (Auto) 2.0, [place] # (Auto) 0.7, Eos # (Auto) 0.3, Baso # (Auto) 0.1, Sodium 132 L, Potassium 3.8, Chloride 87 L, Carbon Dioxide 39 H, Anion Gap 9.8, BUN 17, Creatinine 1.10, Estimated Creat Clear 101, Estimated GFR 69, Est GFR ( Amer) 83, Glucose 93 D, Calcium 7.7 L I & O for Labs for Last 24 Hours: Intake & Output 03/24/23 03/25/23 03/26/23 03/27/23 11:59 11:59 11:59 11:59 Intake Total 1315.833 / 1315.833 520 / 520 1577.115 / 1577.115 869 / 869 Output Total 4500 / 5500 1700 / 1700 850 / 850 1025 / 1025 Balance -3184.167 / -4184.167 -1180 / -1180 727.115 / 727.115 -156 / -156 Weight 219 lb 1.6 oz 213 lb 213 lb 13.574 oz 214 lb 4.629 oz Constitutional: Present no acute distress Respiratory: Present rhonchi (Coarse rhonchi anteriorly and sounds clear posteriorly) Cardiac: Present Reg Rate and Rhythm GI: Present soft and normal bowel sounds; Absent distention or tenderness Extremities: Present edema (Much improved) Skin: Present erythema (right lower arm from IV infiltration, the area is hot, firm, and tender) Neuro: Present alert and oriented x 3 (Difficult to determine his orientation.) Assessment and Plan *Assessment and plan (1) Atrial fibrillation with rapid ventricular response: Status: Acute Category: Medical Code(s): I48.91 - Unspecified atrial fibrillation (2) CHF (congestive heart failure): Status: Chronic Qualifiers: Heart failure chronicity: unspecified Heart failure type: unspecified Qualified Code(s): I50.9 - Heart failure, unspecified Category: Medical Code(s): I50.9 - Heart failure, unspecified (3) Anasarca: Status: Acute Category: Medical Code(s): R60.1 - Generalized edema (4) Necrotic ulceration of fingers: Status: Acute Category: Medical Code(s): I96 - Gangrene, not elsewhere classified (5) Tobacco use: Status: Acute Category: Social Hx Code(s): Z72.0 - Tobacco use (6) Alcoholism: Status: Acute Category: Medical Code(s): F10.20 - Alcohol dependence, uncomplicated (7) COPD (chronic obstructive pulmonary disease): Status: Chronic Category: Medical Code(s): J44.9 - Chronic obstructive pulmonary disease, unspecified (8) Pulmonary hypertension: Status: Chronic Category: Medical Code(s): I27.20 - Pulmonary hypertension, unspecified (9) Cirrhosis, alcoholic: Status: Chronic Category: Medical Code(s): K70.30 - Alcoholic cirrhosis of liver without ascites (10) Hypertension: Status: Chronic Qualifiers: Hypertension type: unspecified Qualified Code(s): I10 - Essential (primary) hypertension Category: Medical Code(s): I10 - Essential (primary) hypertension (11) Anxiety: Status: Acute Category: Medical Code(s): F41.9 - Anxiety disorder, unspecified (12) GERD (gastroesophageal reflux disease): Status: Acute Category: Medical Code(s): K21.9 - Gastro-esophageal reflux disease without esophagitis (13) Hypothyroidism: Status: Chronic Category: Medical Code(s): E03.9 - Hypothyroidism, unspecified Plan Cardiology was supposed to take the patient down for another attempt at cardioversion today. It appears he is gone back into sinus rhythm. Cardiology to follow. Will apply K-pad to IV infiltration site. Dr. Bridges entry - Saw patient, agree with above note.
--- NOTE | 2023-03-27 09:13 | XR_ITS ---
FINAL REPORT CLINICAL HISTORY: CHF, COPD COMPARISON: 03/19/2023 FINDINGS: There is a large calcified right paratracheal lymph node. The heart size is normal. The mediastinum is normal. There is no focal infiltrate or edema. There are scattered calcified granulomas. There are no pleural effusions. There is no pneumothorax. There is no osseous abnormality. IMPRESSION: No acute cardiopulmonary process Reviewed, Interpreted and Dictated by Nathanael Knowles MD Transcribed by Yamini Ashley Authenticated and [facility]
[2023-03-27 10:06] LABS: Microscopic, Urine URINE MICROSCOPIC (MICROSCOPIC)
[2023-03-27 10:12] LABS: Appearance,Urine SL CLOUDY (Clear); Bilirubin,Urine Negative (Negative); Blood, Urine Negative (Negative); Color,Urine YELLOW (Yellow); Glucose,Urine (UA) 3+ (Negative); Ketones,Urine Negative (Negative); Leukocyte Esterase,Urine 1+ (Negative); Nitrate,Urine Negative (Negative); PH,Urine 8.5 (5.0-8.5); Protein,Urine TRACE (Negative)
[2023-03-27 10:23] LABS: Bacteria,Urine Trace /lpf; Squamous Epithelial Cell,Urine Occasional #/hpf (0-5); WBC,Urine 50-100 #/hpf (0-3)
[2023-03-27] MEDS: AMIODARONE 200MG TABLET 400 MG PO ×2 (11:56→21:08)
--- NOTE | 2023-03-27 15:13 | P.PN_ITS ---
Subjective Subjective Date: 03/27/23 Time: 10:00 Principal diagnosis: Volume overload, A-fib RVR Interval history: Patient converted to sinus rhythm overnight. His mental status is clearing, head CT, alcohol, ammonia levels within normal limits. Patient denies chest pain shortness of breath and palpitations at this time. He is interested in getting home and would like to ambulate on the floor. Exam Data for Last 24 hours Vital signs and Labs for Last 24 Hours: Temp Pulse Resp BP Pulse Ox O2 Del Method O2 Flow Rate 97.7 F 68 20 105/72 L 93 L Room Air 2 03/27/23 11:56 03/27/23 13:47 03/27/23 12:00 03/27/23 12:00 03/27/23 13:47 03/27/23 13:47 03/26/23 18:31 FiO2 35 03/19/23 09:17 Laboratory Results - last 24 hr 03/27/23 06:50: WBC 8.1, RBC 3.90 L, Hgb 12.1 L, Hct 37.1 L, MCV 95.2 H, MCH 31.1, MCHC 32.6, RDW 15.7, Plt Count 435 H, MPV 7.7, Neut % (Auto) 62.2, Lymph % (Auto) 24.7, [place] % (Auto) 8.9, Eos % (Auto) 3.1, Baso % (Auto) 1.1, Neut # (Auto) 5.1, Lymph # (Auto) 2.0, [place] # (Auto) 0.7, Eos # (Auto) 0.3, Baso # (Auto) 0.1, Sodium 132 L, Potassium 3.8, Chloride 87 L, Carbon Dioxide 39 H, Anion Gap 9.8, BUN 17, Creatinine 1.10, Estimated Creat Clear 101, Estimated GFR 69, Est GFR ( Amer) 83, Glucose 93 D, Calcium 7.7 L 03/27/23 10:00: Urine Color Yellow, Urine Appearance Sl cloudy, Urine pH 8.5, Ur Specific [place] 1.010, Urine Protein Trace, Urine Glucose (UA) 3+, Urine Ketones Negative, Urine Blood Negative, Urine Nitrate Negative, Urine Bilirubin Negative, Urine Urobilinogen 1.0, Ur Leukocyte Esterase 1+ A, Urine RBC None, U rine WBC 50-100, Ur Squamous Epith Cells Occasional, Urine Bacteria Trace I & O for Last 24 hours: Intake & Output 03/24/23 03/25/23 03/26/23 03/27/23 23:59 23:59 23:59 23:59 Intake Total 895.833 / 042.088 9846.115 / 2598.574 2821 / 1318 690 / 690 Output Total 3300 / 3300 275 / 275 850 / 850 1050 / 1050 Balance -2404.167 / -2404.167 743.115 / 743.115 468 / 468 -360 / -360 Weight 219 lb 1.6 oz 213 lb 213 lb 13.574 oz 214 lb 4.629 oz Microbiology Reports for the Last 24 Hours: Microbiology 03/19/23 08:45 Blood Blood Culture - Final Constitutional Constitutional: no acute distress and cooperative *Routine HEENT Exam Eye: Present PERRL *Routine Respiratory Exam Respiratory: Present CTA bilaterally; Absent accessory muscle use, wheezes or crackles *Routine Cardiovascular Exam Cardiovascular: Present RRR, Normal S1, Normal S2 and irregularly irregular; Absent murmur, gallop or rubs *Routine Abdominal Exam Abdominal: Present soft and distended; Absent tenderness *Routine Extremities Exam Extremities: Present pulses intact; Absent cyanosis or edema *Routine Skin Exam Skin: Present intact; Absent erythema or wounds *Routine Neurological Exam Neurological: Present alert and oriented X3; Absent motor deficit Comments: somnolent at time, speech is sometimes off topic and nonlinear Routine Psychiatric Exam Psychiatric: Present cooperative Progress Note: A&P Assessment and plan (1) Atrial fibrillation with rapid ventricular response: Status: Acute (2) CHF (congestive heart failure): Status: Chronic (3) Anasarca: Status: Acute (4) Necrotic ulceration of fingers: Status: Acute (5) Tobacco use: Status: Acute (6) Alcoholism: Status: Acute (7) COPD (chronic obstructive pulmonary disease): Status: Chronic (8) Pulmonary hypertension: Status: Chronic (9) Cirrhosis, alcoholic: Status: Chronic (10) Hypertension: Status: Chronic (11) Anxiety: Status: Acute (12) GERD (gastroesophageal reflux disease): Status: Acute (13) Hypothyroidism: Status: Chronic Assessment and Plan Assessment and Plan for All Diagnoses:: A-fib, RVR - new dx this admission in setting of ETOH abuse (03/07 liquor daily) and severe vol overload - CHADS-VASC = 2, on Eliquis - Remains 100-120, Failing rate control this admission including Toprol 100 TID and Digoxin. No Cardizem due to low EF - ANTONETTE/DCCV 03/25 - neg for LA thrombus, DCCV x2 unsuccessful, started Amio IV - 03/26: remains on Amio IV, rate controlled 100bpm. Discussed risks/benefits of Amio. He carries dx of cirrhosis but has normal liver enzymes, will need close monitoring. -03/27: Converted to sinus rhythm, will change IV amnio to p.o. 400 mg twice daily for 1 month Acute HFrEF/ EF 30% NYHA II-III Pulmonary HTN Anasarca/volume overload -New dx this admission in setting of ETOH abuse (1/5 of liquor daily) -presented with severe vol overload with pitting edema and anasarca -Echo: EF of 30% with septal regional wall abnormality noted. RV is severely dilated and dysfunctional. Severe TR. Small pericardial effusion. Elevated RVSP >30 -CTA chest negative for pulmonary embolism or dissection, small pleural effusions with mild bibasilar atelectasis present. Diffuse anasarca. Mildly enlarged retrocrural nodes which may be reactive or neoplastic. Plan: - [facility] as outpatient - LifeVest Fitted - pt states he probably won't wear it though - Diuresed >20L and appears euvolemic on exam, bumex reduced to PO daily. - Cont Entresto, Aldactone, Jardiance ETOH Abuse with Cirrhosis -Admits to drinking 1/5 of liquor daily prior to admission - presented with anasarca and multiorgan failure - defer management to primary service Tobacco use -Smoking cessation advised Somnolence and Nonlinear Speech Patterns -Negative head CT, alcohol level, ammonia CV summary 03/27: Patient tolerating guideline directed medical therapy for his heart failure, he has converted to sinus rhythm. Will change to p.o. amiodarone. Once he is ambulatory on the floor he is stable for discharge from a cardiac standpoint. He needs close follow-up in our clinic in 1 week, we discussed this extensively. He will still need outpatient left heart cath. Please advise if we can be of any further assistance prior to discharge, thank you.
[2023-03-27] MEDS: MULTIVITAMIN TABLET 1 EACH PO (15:51)
--- NOTE | 2023-03-27 18:13 | PC.NURSE ---
Patient refused KPAD.
[2023-03-28] VITALS: BP 100/59; PULSE 62; PULSE 64; RESP 16; TEMP 36.7; O2SAT 95
[2023-03-28 04:00] VITALS: BP 116/62; PULSE 65; PULSE 67; RESP 17; TEMP 36.6; O2SAT 98; BMI 27.6
--- NOTE | 2023-03-28 04:09 | PC.NURSE ---
TELE SR/BBB. VITAL SIGNS STABLE. 02 SATS 95% ON RM AIR. NO C/O PAIN OR DISCOMFORT. AMBULATORY TO THE BR WITH STANDBY ASSIST. EDEMA IMPROVING . 2+ SCROTAL EDEMA NOTED.
[2023-03-28] MEDS: IPRATROPIUM/ALBUTEROL 3 ML NEB IH (06:46)
[2023-03-28 07:59] VITALS: BP 110/57; PULSE 65; RESP 20; TEMP 36.9; O2SAT 93
[2023-03-28 08:00] VITALS: PULSE 80; O2SAT 95
[2023-03-28 08:09] VITALS: PULSE 65
[2023-03-28] MEDS: DIGOXIN 0.25MG TABLET 250 MCG PO (08:09)
[2023-03-28] MEDS: METOPROLOL TARTRATE 50MG TABLET 100 MG PO (08:10)
[2023-03-28] MEDS: APIXABAN 5MG TABLET 5 MG PO (08:10)
[2023-03-28] MEDS: POTASSIUM CHLORIDE 20MEQ TAB 20 MEQ PO (08:10)
[2023-03-28] MEDS: EMPAGLIFLOZIN 10MG TABLET 10 MG PO (08:10)
[2023-03-28] MEDS: SERTRALINE 50MG TABLET 50 MG PO (08:10)
[2023-03-28] MEDS: SACUBITRIL/VALSARTAN 24-26MG TABLET 1 EACH PO (08:10)
[2023-03-28] MEDS: FOLIC ACID 1MG TABLET 1 MG PO (08:10)
[2023-03-28] MEDS: SPIRONOLACTONE 25MG TABLET 25 MG PO (08:10)
[2023-03-28] MEDS: AMIODARONE 200MG TABLET 400 MG PO (08:11)
--- NOTE | 2023-03-28 08:42 | EXP.ACUTE.PN ---
Subjective *Date: 03/28/23 *Time: 08:55 Interval history: Patient states he is feeling about the same today. He denies any pain or shortness of breath. He slept well last night and has been eating Medical Exam Vital signs and Labs for Last 24 Hours: Vital Signs Temp Pulse Pulse Resp BP Pulse Ox O2 Del Method 03/28/23 08:00 95 Room Air 03/28/23 08:09 65 03/28/23 07:59 98.5 F 65 20 110/57 L 93 L Room Air 03/28/23 07:35 Room Air 03/28/23 06:28 Room Air 03/28/23 04:00 98 F 67 17 116/62 98 03/28/23 05:00 Room Air 03/28/23 04:00 65 03/28/23 02:55 Room Air 03/28/23 01:00 Room Air 03/28/23 00:00 98.1 F 62 16 100/59 L 95 03/28/23 00:00 64 03/27/23 23:00 Room Air 03/27/23 21:00 Room Air 03/27/23 20:00 93 L Room Air 03/27/23 20:00 66 03/27/23 20:00 98.6 F 65 18 99/61 L 93 L Nasal Cannula 03/27/23 20:21 68 03/27/23 20:21 67 03/27/23 16:00 98.1 F 66 18 105/60 L 94 L Room Air 03/27/23 12:00 70 03/27/23 17:39 Room Air 03/27/23 16:06 Room Air 03/27/23 15:00 Room Air 03/27/23 13:00 Room Air 03/27/23 13:47 68 03/27/23 13:47 66 03/27/23 13:47 93 L Room Air 03/27/23 12:00 65 20 105/72 L 96 Room Air 03/27/23 11:56 97.7 F 62 20 99/67 L 94 L Room Air 03/27/23 11:00 Room Air 03/27/23 10:00 66 20 103/66 L 98 Room Air 03/27/23 09:00 Room Air 03/27/23 09:37 65 03/27/23 09:37 66 Intake and Output 03/27/23 03/28/2303/28/24 19:59 03:59 11:59 Intake Total 1159 Output Total 0 2 Balance 1159 Intake: Intake, Oral Amount 1159 Output: Output, Urine Amount 0 / 1 1 Output, Stool Amount 1 / Other: Number of Voids 1 Number of Unmeasured Voids 1 1 Number of Bowel Movements 1 Weight 208 lb 5.389 oz Patient Weight 03/28/23 11:59 Weight 208 lb 5.389 oz Laboratory Results - last 24 hr 03/27/23 10:00: Urine Color Yellow, Urine Appearance Sl cloudy, Urine pH 8.5, Ur Specific [place] 1.010, Urine Protein Trace, Urine Glucose (UA) 3+, Urine Ketones Negative, Urine Blood Negative, Urine Nitrate Negative, Urine Bilirubin Negative, Urine Urobilinogen 1.0, Ur Leukocyte Esterase 1+ A, Urine RBC None, Urine WBC 50-100, Ur Squamous Epith Cells Occasional, Urine Bacteria Trace I & O for Labs for Last 24 Hours: Intake & Output 03/25/23 03/26/23 03/27/23 03/28/23 11:59 11:59 11:59 11:59 Intake Total 520 / 520 1577.115 / 1577.115 869 / 869 1989 Output Total 1700 / 1700 850 / 850 1325 / 1325 Balance -1180 / -1180 727.115 / 727.115 -456 / -456 1987 Weight 213 lb 213 lb 13.574 oz 214 lb 4.629 oz 208 lb 5.389 oz Constitutional: Present no acute distress Respiratory: Present rhonchi (Coarse rhonchi anteriorly and sounds clear posteriorly) Cardiac: Present Reg Rate and Rhythm GI: Present soft and normal bowel sounds; Absent distention or tenderness Extremities: Present edema (Much improved) Skin: Present erythema (right lower arm from IV infiltration, the area is hot, firm, and tender) Neuro: Present alert and oriented x 3 (Difficult to determine his orientation.) Assessment and Plan *Assessment and plan (1) Atrial fibrillation with rapid ventricular response: Status: Acute Category: Medical Code(s): I48.91 - Unspecified atrial fibrillation (2) CHF (congestive heart failure): Status: Chronic Qualifiers: Heart failure chronicity: unspecified Heart failure type: unspecified Qualified Code(s): I50.9 - Heart failure, unspecified Category: Medical Code(s): I50.9 - Heart failure, unspecified (3) Anasarca: Status: Acute Category: Medical Code(s): R60.1 - Generalized edema (4) Necrotic ulceration of fingers: Status: Acute Category: Medical Code(s): I96 - Gangrene, not elsewhere classified (5) Tobacco use: Status: Acute Category: Social Hx Code(s): Z72.0 - Tobacco use (6) Alcoholism: Status: Acute Category: Medical Code(s): F10.20 - Alcohol dependence, uncomplicated (7) COPD (chronic obstructive pulmonary disease): Status: Chronic Category: Medical Code(s): J44.9 - Chronic obstructive pulmonary disease, unspecified (8) Pulmonary hypertension: Status: Chronic Category: Medical Code(s): I27.20 - Pulmonary hypertension, unspecified (9) Cirrhosis, alcoholic: Status: Chronic Category: Medical Code(s): K70.30 - Alcoholic cirrhosis of liver without ascites (10) Hypertension: Status: Chronic Qualifiers: Hypertension type: unspecified Qualified Code(s): I10 - Essential (primary) hypertension Category: Medical Code(s): I10 - Essential (primary) hypertension (11) Anxiety: Status: Acute Category: Medical Code(s): F41.9 - Anxiety disorder, unspecified (12) GERD (gastroesophageal reflux disease): Status: Acute Category: Medical Code(s): K21.9 - Gastro-esophageal reflux disease without esophagitis (13) Hypothyroidism: Status: Chronic Category: Medical Code(s): E03.9 - Hypothyroidism, unspecified Plan Patient likely stable for discharge today with an outpatient cardiology follow-up. Will discuss with Dr. Bridges. Dr. Bridges entry - Saw patient, agree with above note. OK for discharge, plan office f/u with Dr. Felix next week and cardiology in 2 weeks. Discussed alcohol use cessation with patient.
--- NOTE | 2023-03-28 09:30 | PC.NURSE ---
Meds to beds pharmacy called.
--- NOTE | 2023-03-28 10:26 | SW/DCPLANNER ---
I have arranged [facility] for this patient.
--- NOTE | 2023-03-31 14:52 | CARE MANAGER ---
Called and spoke with patient regarding recent discharge. Patient stated that he has made the changes to his medication that was prescribed at discharge. Patient acknowledged he was aware of f/u appts. He stated that he plans to call and have company pickling solution maker his life vest, as he does not intend to wear it.
--- NOTE | 2023-04-08 23:33 | EXP.DC.SUM ---
General Admission date:: 03/19/23 Discharge date: 03/28/23 HPI HPI HPI: Patient is a 58-year-old male with past medical history of alcoholism (1 pint a day for multiple decades), last use last week, hypothyroidism, atrial fibrillation not on anticoagulation although prescribed anticoagulation, CHF, pulmonary hypertension, hypertension who presents emergency department for evaluation of multiple complaints. Over the last year patient has had progressive swelling of his lower extremities mild swelling of his abdomen. Over the last 48 hours he has had rapid swelling of his scrotum, abdomen has become tense with associated shortness of breath and cough. Patient is still voiding although decreased from baseline. He also had a mechanical fall onto his back and left side resulting in pain over his left hip, left verma, midline lower back. Due to this he called 911 and presents here for continued evaluation. Patient denies chest pain, however does have significant shortness of breath. In summary patient is a 58-year-old male with past medical history described above who presents emergency department for evaluation of shortness of breath and traumatic injury sustained in a fall. Patient is in atrial fibrillation with rapid ventricular response upon arrival, acceptable blood pressures, oxygen saturations in the 80s requiring nasal cannula for resolution greater than 90. Patient still has significant tachypnea, tense swelling with anasarca. Differential diagnosis includes acute heart failure, pulmonary hypertension, pulmonary embolism, cardiorenal syndrome, hepatorenal syndrome, among others. [id number] ultrasound at bedside shows decreased ejection fraction, right ventricular dilation, small pericardial effusion, mild B-lines in the lung quintanilla. Ultrasound abdomen shows no ascites (images were not saved to permanent archive therefore no note is warranted). Reviewing patient's weight from last month he is 66 pounds up. I suspect multifactorial volume overload. Workup will be conducted with hematologic labs, chest x-ray, EKG, CT thoracolumbar spine and pelvis without contrast, CT angio pulmonary embolism protocol. Patient will be placed on BiPAP for volume overload and oxygen requirement in an effort to decrease his work of breathing with at least some degree of suspected left heart failure. Patient was given 1 of Bumex prior to creatinine and GFR resulting. Patient may have A-fib with RVR secondary to volume overload in isolation however alcohol withdrawal may be contributing given that his last drink was last week for this 1 mg of Ativan will be given. A couple of years ago patient had echo demonstrating pulmonary hypertension, patient has EKG changes with right axis deviation, [id number] ultrasound shows dilated right ventricle and there are trace B-lines however not significant, no pericardial effusion or pleural effusion making my index of suspicion for right heart failure significantly contributing to his clinical picture high. For atrial fibrillation with rapid ventricular response heart rate in the 160s is impairing his diastolic filling therefore 20 mg bolus of diltiazem and the case will be discussed with Dr. Harris regarding continued management. Upon repeat evaluation patient was not having improvement with BiPAP, ultrasound shows minimal B-lines so patient will be transition to facemask oxygen to eliminate the possibility of BiPAP impairing his right heart filling. Case was discussed with Dr. Harris regarding management, patient will be started on metoprolol to tartrate p.o., diltiazem drip will be continued, Bumex drip will be initiated. Workup reviewed by me, hematologic labs remarkable for mild hypercarbic acidosis, no VENKATESH, no critical electrolyte abnormalities, significantly elevated BNP. Trauma survey remarkable for L1 and L3 compression fractures of uncertain age favored to be chronic, there is no retropulsion or critical height loss that would warrant transfer for spine evaluation at this time. No acute bony trauma in the thoracic spine or pelvis. Preliminary report CT chest shows no evidence of pulmonary embolism or dissection, diffuse anasarca, calcified mediastinal adenopathy of undetermined etiology. Cardiology recommends admission for aggressive diuresis and cardiopulmonary optimization, formal recommendations pending after echocardiography. The case was discussed with Dr. Bridges regarding management patient will be admitted to his service for continued evaluation at this time. (above as per ER physician) The patient states his last drink was of last week. He drinks a pint to a gallon a day. He also has 2 fingers on his left hand that are black. He says he almost cut them off but he does not remember when that happened. Based on ER records, it was back in January. The sutures are still in place. He has been off of most of his medications. He states he occasionally will take his BP medication. Hospital Course Hospital Course Hospital Course: The patient had multiple images and there was no evidence of acute fracture. His CTA did show diffuse anasarca. He had mildly enlarged retroperitoneal nodes which were either reactive or neoplastic. The patient did exhibit tremors from alcohol withdrawal and was started on withdrawal protocol. He had pain with urination due to scrotal edema. Nebs were ordered due to wheezing and cough. Cardiology started the patient on a Bumex drip as well as digoxin 125 mcg daily along with his home dose of metoprolol 50 mg twice daily. He did diurese well. His swelling improved significantly. His digoxin dose had to be increased to 250 mcg due to elevated heart rate and his metoprolol was increased to 100 mg twice daily. He was also fitted for a LifeVest due to the fact that his ejection fraction returned at 30. He had a right ventricle that was severely dilated and dysfunctional along with severe tricuspid regurgitation. He had an elevated RVSP of greater than 30. Cardiology wanted to perform a heart cath on an outpatient basis once he was fully diuresed due to biventricular failure. They added Entresto, Jardiance, and Aldactone and fitted him for a LifeVest. Orthopedics was consulted due to a previous laceration of his ring finger and small finger that had had sutures in place for over a month and a half. Dr. Rivas saw the patient and felt there had been significant clinical improvement. He removed the stitches. There was a necrotic area over the tip of the small finger but no evidence of active infection. He wanted to continue to monitor. The patient shortness of air and wheezing improved after diuresis. A PT consult was ordered to see if he could get out of bed in chair. The patient had remained on a Bumex drip for quite some time, therefore potassium was added because he became hypokalemic. He continued to diurese throughout his stay. The Bumex drip was finally stopped on 03/24/2023. His Marsh catheter was removed. He had diuresed over 20 L while on the Bumex drip. The patient continued to remain in A-fib with RVR. He was made n.p.o. for ANTONETTE/DCCV. The ANTONETTE was completed without complication and there was no clot noted in the left atrium. The patient failed attempted cardioversion x 2 at 150 and 200 J. He was transferred back to the floor and started on IV amiodarone. His rate was controlled on IV amiodarone and he converted to normal sinus rhythm. He was started on p.o. amiodarone. He had IV infiltration on the right arm and this IV was removed and a K-pad was placed. By 03/28/2023 he was doing well and denied any pain or shortness of breath. He had remained in sinus rhythm and it was felt he would could be discharged home with close outpatient cardiology follow-up as well as follow-up with Dr. Felix. Alcohol cessation was discussed with the patient. Exam Data for Last 24 hours Vital signs and Labs for Last 24 Hours: Temp Pulse Resp BP Pulse Ox O2 Del Method O2 Flow Rate 98.5 F 65 20 110/57 L 95 Room Air 2 03/28/23 07:59 03/28/23 08:09 03/28/23 07:59 03/28/23 07:59 03/28/23 08:00 03/28/23 08:00 03/26/23 18:31 FiO2 35 03/19/23 09:17 Narrative: Constitutional Constitutional: no acute distress *Routine HEENT Exam Head: Present normocephalic and atraumatic Eye: Present EOMI and PERRL ENT: Present mucous membranes dry *Routine Neck Exam Neck: Present supple and full ROM *Routine Respiratory Exam Respiratory: Present rhonchi and wheezes *Routine Cardiovascular Exam Cardiovascular: Present irregularly irregular *Routine Abdominal Exam Abdominal: Present soft, normoactive bowel sounds and distended; Absent tenderness *Routine Rectal Exam Rectal:: deferred *Routine Genitalia Exam Genitalia:: deferred *Routine Extremities Exam Extremities: Present edema (of the abdomen, scrotum, and bilateral upper and LE's) *Routine Skin Exam Skin: Present intact and erythema (both lower legs) Comments: necrotic appearing tissue over the tips of the left 4 th and 5 th digits *Routine Neurological Exam Neurological: Present alert, altered mental status and tremors DS: Diagnosis Discharge Diagnosis (1) Atrial fibrillation with rapid ventricular response: Status: Acute Code(s): I48.91 - Unspecified atrial fibrillation (2) CHF (congestive heart failure): Status: Chronic Code(s): I50.9 - Heart failure, unspecified Qualifiers: Heart failure type: unspecified Heart failure chronicity: unspecified Qualified Code(s): I50.9 - Heart failure, unspecified (3) Anasarca: Status: Acute Code(s): R60.1 - Generalized edema (4) Necrotic ulceration of fingers: Status: Acute Code(s): I96 - Gangrene, not elsewhere classified (5) Tobacco use: Status: Acute Code(s): Z72.0 - Tobacco use (6) Alcoholism: Status: Acute Code(s): F10.20 - Alcohol dependence, uncomplicated (7) COPD (chronic obstructive pulmonary disease): Status: Chronic Code(s): J44.9 - Chronic obstructive pulmonary disease, unspecified (8) Pulmonary hypertension: Status: Chronic Code(s): I27.20 - Pulmonary hypertension, unspecified (9) Cirrhosis, alcoholic: Status: Chronic Code(s): K70.30 - Alcoholic cirrhosis of liver without ascites (10) Hypertension: Status: Chronic Code(s): I10 - Essential (primary) hypertension Qualifiers: Hypertension type: unspecified Qualified Code(s): I10 - Essential (primary) hypertension (11) Anxiety: Status: Acute Code(s): F41.9 - Anxiety disorder, unspecified (12) GERD (gastroesophageal reflux disease): Status: Acute Code(s): K21.9 - Gastro-esophageal reflux disease without esophagitis (13) Hypothyroidism: Status: Chronic Code(s): E03.9 - Hypothyroidism, unspecified Meds Home Medications and Allergies Home Medications Medication Instructions Recorded Confirmed Type sertraline 100 mg tablet 100 mg PO DAILY 07/23/21 03/19/23 History trazodone 100 mg tablet 100 mg PO HS PRN Sleep 07/23/21 03/19/23 History ipratropium 0.5 mg-albuterol 3 mg 3 ml inhalation QID 08/13/21 03/20/23 History (2.5 mg base)/3 mL nebulization soln apixaban 5 mg tablet 5 mg PO BID 08/24/21 03/19/23 History albuterol sulfate 90 mcg/actuation 2 puff inhalation Q6H PRN 03/20/23 03/20/23 History aerosol inhaler (Ventolin HFA) Shortness Of Breath loperamide 2 mg tablet 2 mg PO QID PRN Diarrhea 03/20/23 03/20/23 History oxazepam 15 mg capsule 15 mg PO BID PRN Anxiety 03/20/23 03/20/23 History amiodarone 400 mg tablet 400 mg PO BID #60 tabs 03/28/23 Rx digoxin 250 mcg (0.25 mg) tablet 250 mcg PO DAILY #30 tabs 03/28/23 Rx metoprolol tartrate 100 mg tablet 100 mg PO Q8H #90 tabs 03/28/23 Rx sacubitril 24 mg-valsartan 26 mg 1 tab PO BID #60 tabs 03/28/23 Rx tablet (Entresto) spironolactone 25 mg tablet 25 mg PO DAILY #30 tabs 03/28/23 Rx (Aldactone) ciprofloxacin HCl 500 mg tablet 500 mg PO BID 7 days #14 tabs 04/01/23 Rx (Cipro) New Prescriptions to Start Prescriptions: amiodarone [place],Kev digoxin [place],Kev metoprolol tartrate [place],Kev sacubitril-valsartan [Entresto] [place],Kev spironolactone [Aldactone] [place],Kev Allergies Allergy/AdvReac Type Severity Reaction Status Date / Time hydrochlorothiazide AdvReac Unknown Other Verified 02/13/23 09:13 Discharge Plan Disposition Patient Disposition: Home, Self-Care Condition: Fair Discharge Order Discharge Orders: Discharge Order (Routine); Ordered 03/28/23 Ordered By: Kev Bridges Follow up Plan Follow up with: Estefany Loera APRN [Nurse Practitioner] - 04/10/23 1:45 pm Casey Felix MD [Staff Physician] - 04/03/23 1:45 pm Prescriptions/Medication Reconciliation: New metoprolol tartrate 100 mg tablet 100 mg PO Q8H Qty: 90 0RF spironolactone [Aldactone] 25 mg tablet 25 mg PO DAILY Qty: 30 0RF Entresto 24-26 mg tablet 1 tab PO BID Qty: 60 0RF amiodarone 400 mg tablet 400 mg PO BID Qty: 60 0RF digoxin 250 mcg (0.25 mg) tablet 250 mcg PO DAILY Qty: 30 0RF Continued ipratropium-albuterol 0.5 mg-3 mg(2.5 mg base)/3 mL solution for nebulization 3 ml IH QID sertraline 100 MG tablet 100 mg PO DAILY trazodone 100 MG tablet 100 mg PO HS PRN (Reason: Sleep) loperamide 2 mg Tablet 2 mg PO QID PRN (Reason: Diarrhea) oxazepam 15 mg capsule 15 mg PO BID PRN (Reason: Anxiety) albuterol sulfate [Ventolin HFA] 90 mcg/actuation HFA aerosol inhaler 2 puff INHALATION Q6H PRN (Reason: Shortness Of Breath) apixaban 5 MG tablet 5 mg PO BID Discontinued benzonatate 200 mg capsule 200 mg PO TID PRN (Reason: Cough) Patient Comments: TAKE ONE CAPSULE BY MOUTH THREE TIMES DAILY NEEDED -SWALLOW WHOLE. DO NOT CRUSH OR CHEW- diltiazem HCl 240 MG capsule,extended release 24hr 240 mg PO DAILY metoprolol tartrate 50 MG tablet 50 mg PO BID No Action ciprofloxacin HCl [Cipro] 500 mg tablet 500 mg PO BID 7 Days Qty: 14 0RF Problem Reconciliation Problems Reviewed?: Yes Patient Discharge Instructions ACTIVITY: Continue current activity DIET: continue same diet Additional Instructions: Do not drink alcohol Patient Instructions: DI for Heart Failure, DI for Atrial Fibrillation, DI for Alcohol Use Disorder Providers Primary Care Provider: Yara Rosenbaum Admit Provider: Kev Bridges Attending Provider: Kev Bridges
== END 2023-03-28 10:48 | disposition home or self-care (01) | DRG 291 ==
LOC: ER 12:57 → 2ND 12:59
PROVIDERS: Internal Medicine; Nurse Practitioner; Physician Assistant; Admitting Provider Family Medicine; Emergency Provider Emergency Medicine; PCP Family Medicine; Visit Provider Family Medicine
DX: I11.0 Hypertensive heart disease with heart failure (principal); I50.23 Acute on chronic systolic (congestive) heart failure; I96 Gangrene, not elsewhere classified; F10.20 Alcohol dependence, uncomplicated; J44.9 Chronic obstructive pulmonary disease, unspecified; K70.30 Alcoholic cirrhosis of liver without ascites; E03.9 Hypothyroidism, unspecified; Z72.0 Tobacco use; Z71.6 Tobacco abuse counseling; I48.91 Unspecified atrial fibrillation; I48.0 Paroxysmal atrial fibrillation; F17.210 Nicotine dependence, cigarettes, uncomplicated; F41.9 Anxiety disorder, unspecified; Z79.01 Long term (current) use of anticoagulants
CPT/HCPCS: 36415; 70470; 71045; 71275; 72128; 72131; 72192; 73590; 80048; 80053; 81001; 82140; 82803; 83735; 83880; 84484; 85025; 85378; 85610; 87040; 87086; 87636; 92960; 93005; 93270; 93306; 93312; 93319; 94640; 97163; J0282; J3473; J7060; Q9967

== ENCOUNTER 2023-06-16 14:38 | Outpatient (CLI) | payer MEDICAID, SELFPAY | END 2023-06-16 23:59 | disposition home or self-care (01) | LOC: RT 14:40 | PROVIDERS: PCP Nurse Practitioner Family; Visit Provider Internal Medicine | DX: R00.0 Tachycardia, unspecified (principal) ==

== ENCOUNTER 2023-06-25 16:20 | Inpatient (IN) | payer MEDICAID, SELFPAY ==
[2023-06-25 16:20] VITALS: BP 157/110; PULSE 95; RESP 18; TEMP 36.7; O2SAT 96; BMI 28.8
[2023-06-25 16:22] VITALS: BP 157/110; PULSE 95; O2SAT 97
--- NOTE | 2023-06-25 16:26 | HMH.EDGENADL ---
Discharge Plan Disposition Patient Disposition: Admitted Chief Complaint: Fall Prescriptions Prescriptions: No Action sertraline 100 mg tablet 100 mg PO DAILY oxazepam 15 mg capsule 15 mg PO HS PRN trazodone 100 mg tablet 100 mg PO DAILY metoprolol succinate [Toprol XL] 50 mg tablet extended release 24 hr 50 mg PO DAILY Qty: 30 2RF Jardiance 10 mg tablet 10 mg PO DAILY Qty: 30 5RF amiodarone 200 mg tablet 200 mg PO DAILY spironolactone [Aldactone] 25 mg tablet 25 mg PO DAILY Qty: 30 0RF Entresto 24-26 mg tablet 1 tab PO BID Qty: 60 0RF digoxin 250 mcg (0.25 mg) tablet 250 mcg PO DAILY Qty: 30 0RF apixaban 5 mg tablet 5 mg PO BID Referrals Follow up/Referrals: Provider,Referral, MD [Primary Care Provider] - See instructions Clinical Impressions Clinical Impression: Closed fracture of greater trochanter of right femur, Fall, Alcohol intoxication Discharge ED Provider: Nathaniel Bishop General Adult HPI <AMARILIS Oshea - Last Filed: 06/25/23 16:26> General Chief complaint: Fall Stated complaint: FALL Time Seen by Provider: 06/25/23 16:21 Related Data Home Medications Medication Instructions Recorded Confirmed amiodarone 200 mg tablet 200 mg PO DAILY 06/16/23 06/19/23 apixaban 5 mg tablet 5 mg PO BID 06/16/23 06/19/23 oxazepam 15 mg capsule 15 mg PO HS PRN 06/16/23 06/19/23 sertraline 100 mg tablet 100 mg PO DAILY 06/16/23 06/19/23 trazodone 100 mg tablet 100 mg PO DAILY 06/16/23 06/19/23 Previous Rx's Medication Instructions Recorded digoxin 250 mcg (0.25 mg) tablet 250 mcg PO DAILY #30 tabs 03/28/23 sacubitril 24 mg-valsartan 26 mg 1 tab PO BID #60 tabs 03/28/23 tablet (Entresto) spironolactone 25 mg tablet 25 mg PO DAILY #30 tabs 03/28/23 (Aldactone) empagliflozin 10 mg tablet 10 mg PO DAILY #30 tabs 06/16/23 (Jardiance) metoprolol succinate 50 mg 50 mg PO DAILY #30 tabs 06/16/23 tablet,extended release 24 hr (Toprol XL) Allergies Allergy/AdvReac Type Severity Reaction Status Date / Time hydrochlorothiazide AdvReac Unknown Other Verified 06/19/23 14:21 <Nathaniel Bishop MD - Last Filed: 06/25/23 20:04> History of Present Illness HPI narrative: Please note that above description of symptoms, in this electronic medical record under categorization of recalled from ER triage doctor by RN are reflective of an initial nursing assessment, however, is not reflective of my full history and physical exam that was personally taken and clarified. Consequentially, this preceding description of symptoms, which may include the patient's categorized chief complaint in the EMR, do not reflect my personal clinical impression, and the ultimate description of history of present illness and patient stated complaints should be deferred to this section of the note. Unless stated otherwise or congruent with this section of the note, additional signs, symptoms, or incongruence should be interpreted as inaccurate with my clinical impression. [facility] <AMARILIS Oshea - Last Filed: 06/25/23 16:26> [facility] Disclaimer: The information contained in this section may have been updated after the patient was seen, as this information can be updated by other users. Medical History Tobacco use Paroxysmal atrial fibrillation Alcoholism Anxiety GERD (gastroesophageal reflux disease) Laceration of finger, left, complicated Small and ring fingers. COPD (chronic obstructive pulmonary disease) Pulmonary hypertension Cirrhosis, alcoholic CHF (congestive heart failure) Hypertension Atrial fibrillation with rapid ventricular response Exposure to COVID-19 virus Surgical History History of discectomy History of cardiac radiofrequency ablation Family History Other Cancer Hypertension Stroke Substance abuse Social History Smoking Status: Unknown if ever smoked alcohol intake: current alcohol intake frequency: 3 or more drinks per day substance use type: denies use current occupational status: employed Travel in the last 8 weeks: None household members: significant other housing: house 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 current occupational exposures/hazards: No caffeine: Yes <AMARILIS Oshea - Last Filed: 06/25/23 16:26> ROS Obtained: Yes Systems reviewed as appropriate & no additional complaints except as documented Physical Exam <AMARILIS Oshea - Last Filed: 06/25/23 16:26> General General appearance: alert and in no apparent distress Head Head exam: atraumatic and normal inspection Eye Eye exam: Present normal appearance, PERRL and EOMI ENT ENT exam: Present normal exam, normal oropharynx and mucous membranes moist Neck Neck exam: Present normal inspection, full ROM and trachea midline; Absent lymphadenopathy Chest Chest inspection: Present normal inspection and symmetric chest wall rise Respiratory Respiratory exam: Present normal lung sounds bilaterally; Absent accessory muscle use Cardiovascular Cardiovascular exam: Present regular rate, normal rhythm, normal heart sounds, +S1 and +S2 Abdominal Exam Abdominal exam: Present soft and normal bowel sounds; Absent tenderness, guarding or rebound Extremities Exam Extremities exam: Present normal inspection and full ROM Neurological Exam Neurological exam: Present alert, oriented X3 and CN II-XII intact Psychiatric Psychiatric exam: Present normal affect and normal mood Skin Skin exam: Present warm, dry and normal color Lymphatic Lymphatic Findings: no adenopathy <Nathaniel Bishop MD - Last Filed: 06/25/23 20:04> Extremities Exam Extremities exam: Absent normal inspection or full ROM Expanded Upper Extremity Exam Right: Comment: Significant tenderness about right elbow with overlying superficial abrasion. Swelling at lateral epicondyle. Range of motion is intact. Patient does have swelling in his right distal ulna and radius. Difficulty and pain with supination. Neurovascularly intact. No hand abnormalities. Back Exam Comment: Tenderness about lateral aspect near greater trochanter and true groin pain in inguinal fold. Patient unable to lift right lower extremity off the bed. Not rotated or shortened grossly. No outward signs of injury until down to the knee. He has a superficial abrasion overlying lateral aspect of his right knee, sensation and motor intact. Patient does have normal reflexes. Tenderness about right lateral malleolus with associated swelling as compared to left. Neurological Exam Neurological exam: Present other (Smells and appears intoxicated); Absent motor sensory deficit Medical Decision Making <AMARILIS Oshea - Last Filed: 06/25/23 16:26> Vital Signs: 06/25/23 16:20 06/25/23 16:22 06/25/23 16:30 Temperature 98.0 F Temperature Source Oral Pulse Rate 95 H 94 H Pulse Rate [Radial] 95 H Respiratory Rate 18 Blood Pressure 157/110 H 156/109 H Blood Pressure [Right Arm] 157/110 H Blood Pressure Mean [Right Arm] 125 Blood Pressure Source [Right Arm] Automatic Cuff Blood Pressure Position [Right Arm] Sitting 02 Sat by Pulse Oximetry 96 97 96 Oxygen Delivery Method Room Air Room Air Room Air Lab Data Lab Results 06/25/23 18:30: WBC 6.7, RBC 3.88 L, Hgb 12.8 L, Hct 40.2 L, MCV 103.7 H, MCH 33.0 H, MCHC 31.8, RDW 16.8, Plt Count 284, MPV 7.7, Neut % (Auto) 66.4, Lymph % (Auto) 22.8, [place] % (Auto) 5.1, Eos % (Auto) 2.7, Baso % (Auto) 3.0 H, Neut # (Auto) 4.4, Lymph # (Auto) 1.5, [place] # (Auto) 0.3, Eos # (Auto) 0.2, Baso # (Auto) 0.2, PT 10.5, INR 0.97, APTT 27.5, Sodium 138, Potassium 4.4, Chloride 102, Carbon Dioxide 25, Anion Gap 15.4 H, BUN 11, Creatinine 0.80, Estimated Creat Clear 138, Estimated GFR 99, Est GFR ( Amer) 120, Glucose 86, Calcium 8.1 L, Total Bilirubin 0.7, AST 81 H, ALT 19, Alkaline Phosphatase 269 H, Total Protein 7.2, Albumin 3.6, Globulin 3.6 H, Albumin/Globulin Ratio 1.0 L, Lipase 284, Plasma/Serum Alcohol 294 H 06/25/23 18:30 06/25/23 18:30 Orders (Tests/Meds): ED MEDICATIONS Discontinued Medications Generic Name Dose Route Start Last Admin Trade Name Freq PRN Reason Stop Dose Admin Hydromorphone HCl 0.5 mg 06/25/23 16:46 06/25/23 17:06 Hydromorphone 2mg/Ml Syringe IV 06/25/23 16:47 0.5 mg ONCE ONE Administration Hydromorphone HCl 1 mg 06/25/23 19:27 06/25/23 19:35 Hydromorphone 2mg/Ml Syringe IV 06/25/23 19:28 1 mg ONCE ONE Administration Lactated Ringer's 1,000 mls @ 999 mls/hr 06/25/23 16:56 06/25/23 17:05 Lactated Ringer's 1000 Ml Bag IV 06/25/23 17:56 999 mls/hr .Q1H1M ONE Administration Iopamidol 180 ml 06/25/23 18:03 06/25/23 18:04 Iopamidol-370 (76%);100ml Bottle IV 06/25/23 18:04 180 ml ONCE ONE Administration Ketorolac Tromethamine 15 mg 06/25/23 16:46 06/25/23 17:06 Ketorolac 30mg/Ml Vial IV 06/25/23 16:47 15 mg ONCE ONE Administration Ondansetron HCl 4 mg 06/25/23 16:46 06/25/23 17:05 Ondansetron 4mg/2ml Vial IV 06/25/23 16:47 4 mg ONCE ONE Administration Sodium Chloride 10 ml 06/25/23 18:03 06/25/23 18:03 Sodium Chloride 0.9% 10ml Syr (Rad Only) IV 06/25/23 18:04 10 ml ONCE ONE Administration Sodium Chloride 50 ml 06/25/23 18:03 06/25/23 18:03 0.9 % Sodium Chloride 50 Ml Vial IV 06/25/23 18:04 50 ml ONCE ONE Administration ORDERS Category Date Time Status CT angio abdomen pelvis Stat Cat Scan 06/25/23 16:[address] angio chest - dissection Stat Cat Scan 06/25/23 16:[address] angio head Stat Cat Scan 06/25/23 16:[address] angio neck Stat Cat Scan 06/25/23 16:[address] bony pelvis Stat Cat Scan 06/25/23 16:[address] cervical spine wo con Stat Cat Scan 06/25/23 16:[address] head/brain wo con Stat Cat Scan 06/25/23 16:[address] lumbar spine wo con Stat Cat Scan 06/25/23 16:[address] thoracic spine wo con Stat Cat Scan 06/25/23 16:40 Completed Ankle XR -Right minimum 3 Views [XR ankle RT min 3V] Exams 06/25/23 16:40 Taken Stat Elbow XR right minimum 3 views [XR elbow RT min 3V] Exams 06/25/23 16:40 Taken Stat Femur XR right 2 views [XR femur RT 2V] Stat Exams 06/25/23 16:40 Completed Fibula/tibia XR right 2 views [XR tibia fibula RT 2V] Exams 06/25/23 16:40 Completed Stat Foot XR right minimum 3 views [XR foot RT min 3V] Stat Exams 06/25/23 16:40 Completed Forearm XR right 2 views [XR forearm RT 2V] Stat Exams 06/25/23 16:40 Taken Hand XR right minimum 3 views [XR hand RT min 3V] Stat Exams 06/25/23 16:45 Completed Hip XR right minimum 2 views [XR hip RT 2-3V w/pelvis] Exams 06/25/23 16:40 Completed Stat Humerus XR right [XR humerus RT] Stat Exams 06/25/23 16:40 Completed Knee XR right 3 views [XR knee RT 3V] Stat Exams 06/25/23 16:40 Completed Wrist XR right minimum 3 views [XR wrist RT min 3V] Exams 06/25/23 16:40 Completed Stat CBC w/Auto Diff [Complete Blood Count Auto Diff] Stat Lab 06/25/23 18:30 Completed CMP [Comprehensive Metabolic Panel] Stat Lab 06/25/23 18:30 Completed Ethanol [Ethyl Alcohol] Stat Lab 06/25/23 18:30 Completed Lipase Stat Lab 06/25/23 18:30 Completed PT INR [Prothrombin Time INR] Stat Lab 06/25/23 18:30 Completed PTT [Activated Partial Thrombo Time] Stat Lab 06/25/23 18:30 Completed Medical Decision Narrative: In summary patient is a [age, sex] who presents to the emergency department for evaluation of [complaint]. Patient is [hemodynamically stable/unstable] upon arrival, [febrile/afebrile]. [Unremarkable physical exam, nonfocal exam versus focal remarkable exam]. Differential diagnosis includes [DDx]. Initial workup will be conducted with [hematologic labs, imaging, respiratory swab, describe workup]. Initial interventions include [crystalloid bolus, medications, p.o. challenge, etc.] initial workup reviewed by me [hematologic labs are remarkable for... Imaging remarkable for... Urinalysis remarkable for]. Upon repeat evaluation [patient had acceptable resolution of symptoms, had persistent pain for which additional interventions were conducted (describe interventions), tolerated p.o., was ambulatory, etc.]. Given this [patient is appropriate for discharge at this time and will be discharged with a prescription for... The case was discussed with hospital medicine regarding management and they will admit the patient their service for continued evaluation at this time... Etc.] Places where you can increase complexity: I informally interpreted the patient's chest x-ray or CT read and is remarkable for... Documenting what the electrical tester shows with rate and rhythm Consideration of test but deferring. Ex: I considered chest x-ray on this patient however given that they have no oxygen requirement and are clear to auscultation all lung quintanilla will be deferred. Social determinants of health: Given that patient is undomiciled increases complexity. Given that patient has polysubstance abuse compounds all aspects of care <Nathaniel Bishop MD - Last Filed: 06/25/23 20:04> Medical Records Medical records reviewed: Yes I reviewed the patient's medical records. Paul Inquiry Pt receiving controlled substance: No Paul was queried for this patient: No Vital Signs: 06/25/23 16:20 06/25/23 16:22 06/25/23 16:30 Temperature 98.0 F Temperature Source Oral Pulse Rate 95 H 94 H Pulse Rate [Radial] 95 H Respiratory Rate 18 Blood Pressure 157/110 H 156/109 H Blood Pressure [Right Arm] 157/110 H Blood Pressure Mean [Right Arm] 125 Blood Pressure Source [Right Arm] Automatic Cuff Blood Pressure Position [Right Arm] Sitting 02 Sat by Pulse Oximetry 96 97 96 Oxygen Delivery Method Room Air Room Air Room Air Lab Data Lab Results 06/25/23 18:30: WBC 6.7, RBC 3.88 L, Hgb 12.8 L, Hct 40.2 L, MCV 103.7 H, MCH 33.0 H, MCHC 31.8, RDW 16.8, Plt Count 284, MPV 7.7, Neut % (Auto) 66.4, Lymph % (Auto) 22.8, [place] % (Auto) 5.1, Eos % (Auto) 2.7, Baso % (Auto) 3.0 H, Neut # (Auto) 4.4, Lymph # (Auto) 1.5, [place] # (Auto) 0.3, Eos # (Auto) 0.2, Baso # (Auto) 0.2, PT 10.5, INR 0.97, APTT 27.5, Sodium 138, Potassium 4.4, Chloride 102, Carbon Dioxide 25, Anion Gap 15.4 H, BUN 11, Creatinine 0.80, Estimated Creat Clear 138, Estimated GFR 99, Est GFR ( Amer) 120, Glucose 86, Calcium 8.1 L, Total Bilirubin 0.7, AST 81 H, ALT 19, Alkaline Phosphatase 269 H, Total Protein 7.2, Albumin 3.6, Globulin 3.6 H, Albumin/Globulin Ratio 1.0 L, Lipase 284, Plasma/Serum Alcohol 294 H Orders (Tests/Meds): ED MEDICATIONS Discontinued Medications Generic Name Dose Route Start Last Admin Trade Name Freq PRN Reason Stop Dose Admin Hydromorphone HCl 0.5 mg 06/25/23 16:46 06/25/23 17:06 Hydromorphone 2mg/Ml Syringe IV 06/25/23 16:47 0.5 mg ONCE ONE Administration Hydromorphone HCl 1 mg 06/25/23 19:27 06/25/23 19:35 Hydromorphone 2mg/Ml Syringe IV 06/25/23 19:28 1 mg ONCE ONE Administration Lactated Ringer's 1,000 mls @ 999 mls/hr 06/25/23 16:56 06/25/23 17:05 Lactated Ringer's 1000 Ml Bag IV 06/25/23 17:56 999 mls/hr .Q1H1M ONE Administration Iopamidol 180 ml 06/25/23 18:03 06/25/23 18:04 Iopamidol-370 (76%);100ml Bottle IV 06/25/23 18:04 180 ml ONCE ONE Administration Ketorolac Tromethamine 15 mg 06/25/23 16:46 06/25/23 17:06 Ketorolac 30mg/Ml Vial IV 06/25/23 16:47 15 mg ONCE ONE Administration Ondansetron HCl 4 mg 06/25/23 16:46 06/25/23 17:05 Ondansetron 4mg/2ml Vial IV 06/25/23 16:47 4 mg ONCE ONE Administration Sodium Chloride 10 ml 06/25/23 18:03 06/25/23 18:03 Sodium Chloride 0.9% 10ml Syr (Rad Only) IV 06/25/23 18:04 10 ml ONCE ONE Administration Sodium Chloride 50 ml 06/25/23 18:03 06/25/23 18:03 0.9 % Sodium Chloride 50 Ml Vial IV 06/25/23 18:04 50 ml ONCE ONE Administration ORDERS Category Date Time Status CT angio abdomen pelvis Stat Cat Scan 06/25/23 16:[address] angio chest - dissection Stat Cat Scan 06/25/23 16:[address] angio head Stat Cat Scan 06/25/23 16:[address] angio neck Stat Cat Scan 06/25/23 16:[address] bony pelvis Stat Cat Scan 06/25/23 16:[address] cervical spine wo con Stat Cat Scan 06/25/23 16:[address] head/brain wo con Stat Cat Scan 06/25/23 16:[address] lumbar spine wo con Stat Cat Scan 06/25/23 16:[address] thoracic spine wo con Stat Cat Scan 06/25/23 16:40 Completed Ankle XR -Right minimum 3 Views [XR ankle RT min 3V] Exams 06/25/23 16:40 Taken Stat Elbow XR right minimum 3 views [XR elbow RT min 3V] Exams 06/25/23 16:40 Taken Stat Femur XR right 2 views [XR femur RT 2V] Stat Exams 06/25/23 16:40 Completed Fibula/tibia XR right 2 views [XR tibia fibula RT 2V] Exams 06/25/23 16:40 Completed Stat Foot XR right minimum 3 views [XR foot RT min 3V] Stat Exams 06/25/23 16:40 Completed Forearm XR right 2 views [XR forearm RT 2V] Stat Exams 06/25/23 16:40 Taken Hand XR right minimum 3 views [XR hand RT min 3V] Stat Exams 06/25/23 16:45 Completed Hip XR right minimum 2 views [XR hip RT 2-3V w/pelvis] Exams 06/25/23 16:40 Completed Stat Humerus XR right [XR humerus RT] Stat Exams 06/25/23 16:40 Completed Knee XR right 3 views [XR knee RT 3V] Stat Exams 06/25/23 16:40 Completed Wrist XR right minimum 3 views [XR wrist RT min 3V] Exams 06/25/23 16:40 Completed Stat CBC w/Auto Diff [Complete Blood Count Auto Diff] Stat Lab 06/25/23 18:30 Completed CMP [Comprehensive Metabolic Panel] Stat Lab 06/25/23 18:30 Completed Ethanol [Ethyl Alcohol] Stat Lab 06/25/23 18:30 Completed Lipase Stat Lab 06/25/23 18:30 Completed PT INR [Prothrombin Time INR] Stat Lab 06/25/23 18:30 Completed PTT [Activated Partial Thrombo Time] Stat Lab 06/25/23 18:30 Completed Medical Decision Narrative: 58-year-old male history of daily drinking 1-2/5 of liquor, hypertension, medication noncompliance presenting with fall. Patient states that he was drinking today, is currently intoxicated. Was trying to let the dog out, dog pulled him off the porch and he fell a couple of feet onto a dirt slope. Tumbled down the slope. Landed primarily on his right elbow, right wrist, right knee. Having significant tenderness right upper and right lower extremities, so called EMS. EMS brings him here. Pain is moderate in intensity and does not radiate while at rest, severe when trying to range his right hip. No bowel or bladder dysfunction, back pain, neck pain, chest pain, shortness of breath, nausea or vomiting, or any other concerns. Is not taking anything for the pain. History was obtained via conversation with patient and EMS. On arrival, patient hemodynamically stable, alert, oriented x4, appropriate, GCS 15, moving all extremities spontaneously, pupils equal and reactive to light. Full physical exam performed and significant for intoxicated male who is in no acute distress at rest. Head is atraumatic, bilateral conjunctival injection. No neck tenderness, no chest wall tenderness. Bilateral breath sounds, pulses are equal and symmetric in upper and lower extremities. He does have tenderness about his right elbow, right wrist, right hip, right knee, right ankle without outward signs of deformity. Neurovascularly intact, but range of motion limited significantly secondary to pain. Differential includes intracranial injury, intrathoracic injury, intra-abdominal/pelvic injury, neurologic injury, vascular injury, fracture, dislocation, concussion, among others. Patient was given Zofran IV, Dilaudid 0.5 mg IV, Toradol IV for symptomatic management and correction of underlying abnormalities. Workup independently interpreted and significant for nonactionable CBC. Coags negative. Chemistry nonactionable. Ethanol level 294. Patient's CT trauma scans with incidentally found renal lesion as well as pericardial effusion. CT bony pelvis with greater trochanter fracture that does not go through femoral neck. See radiology read for full review of final results. On reevaluation, patient resting comfortably in bed at rest, but with any movement and severe pain. Orthopedics was contacted and case was discussed at length, patient is nonoperative. Home-going was offered to patient, patient stated he is unable to go home secondary to pain. Hospital medicine was contacted and case was discussed at length, patient to be admitted for pain control and physical therapy. Because patient high risk for clinical decompensation, deemed appropriate for inpatient admission. Results were relayed to patient who voiced understanding and patient was agreeable to inpatient admission and management. Patient was admitted to the hospital for further definitive management. Critical Care <Nathaniel Bishop MD - Last Filed: 06/25/23 20:04> Critical Care Time Critical Care Time: No
[2023-06-25 16:30] VITALS: BP 156/109; PULSE 94; O2SAT 96
--- NOTE | 2023-06-25 16:40 | XR_ITS ---
PROCEDURE INFORMATION: Exam: XR Right Ankle Exam date and time: 06/25/2023 5:44 PM Age: 58 years old Clinical indication: Pain; Ankle; Right; Additional info: Fall, right knee and ankle pain TECHNIQUE: Imaging protocol: Radiologic exam of the right ankle. Views: 3 or more views. AP, lateral and mortise views. COMPARISON: CR XR FOOT RT MIN 3V 06/25/2023 5:44 PM FINDINGS: Bones/joints: Evaluation of bony detail limited by surrounding artifact as well as grid artifact. In addition, the lateral view is limited as only the upper hindfoot has been included. No acute fracture evident where visualized. No malalignment identified. Soft tissues: Normal. IMPRESSION: No acute fracture evident on this limited exam.
--- NOTE | 2023-06-25 16:40 | CT_ITS ---
PROCEDURE INFORMATION: Exam: CT Cervical Spine Without Contrast Exam date and time: 06/25/2023 5:23 PM Age: 58 years old Clinical indication: Injury or trauma; Fall; Blunt trauma; Additional info: Trauma, critical injury suspected TECHNIQUE: Imaging protocol: Computed tomography of the cervical spine without contrast. Radiation optimization: All CT scans at this facility use at least one of these dose optimization techniques: automated exposure control; mA and/or kV adjustment per patient size (includes targeted exams where dose is matched to clinical indication); or iterative reconstruction. COMPARISON: CT HEAD/BRAIN WO CON 06/25/2023 5:21 PM FINDINGS: Bones/joints: Vertebral alignment is maintained. There is preservation of vertebral body heights. Facet joints are well aligned. Odontoid process is intact. Atlantoaxial interval is maintained. No acute fracture. No osseous encroachment of the spinal canal. No significant neural foraminal narrowing at any level. Lungs: Lung apices are normal. Soft tissues: Prevertebral and paravertebral soft tissues are unremarkable. IMPRESSION: No acute fracture. No traumatic subluxation.
--- NOTE | 2023-06-25 16:40 | XR_ITS ---
PROCEDURE INFORMATION: Exam: XR Right Hip Exam date and time: 06/25/2023 5:44 PM Age: 58 years old Clinical indication: Injury or trauma; Fall; Blunt trauma (contusions or hematomas); Right; Hip; Additional info: Right hip pain after fall TECHNIQUE: Imaging protocol: Radiologic exam of the right hip. Views: 2 or 3 views hip with pelvis when performed. COMPARISON: CT ANGIO ABDOMEN PELVIS 06/25/2023 5:38 PM FINDINGS: Bones/joints: Unremarkable. No acute fracture. Soft tissues: Unremarkable. IMPRESSION: No acute findings.
--- NOTE | 2023-06-25 16:40 | XR_ITS ---
PROCEDURE INFORMATION: Exam: XR Right Tibia and Fibula Exam date and time: 06/25/2023 5:44 PM Age: 58 years old Clinical indication: Injury or trauma; Fall; Blunt trauma; Lower leg; Right; Additional info: Fall, right knee and ankle pain TECHNIQUE: Imaging protocol: Radiologic exam of the right tibia and fibula. Views: 2 views. COMPARISON: CR XR ANKLE RT MIN 3V 06/25/2023 5:44 PM FINDINGS: Bones/joints: Old healed proximal tibial fracture with lateral plate and screw fixation. No acute abnormality. Soft tissues: Normal. IMPRESSION: No acute finding.
--- NOTE | 2023-06-25 16:40 | XR_ITS ---
PROCEDURE INFORMATION: Exam: XR Right Wrist Exam date and time: 06/25/2023 5:44 PM Age: 58 years old Clinical indication: Injury or trauma; Fall; Blunt trauma (contusions or hematomas); Wrist; Right; Additional info: Fall, right elbow and wrist pain TECHNIQUE: Imaging protocol: Radiologic exam of the right wrist. Views: 3 or more views. COMPARISON: CR XR FOREARM RT 2V 06/25/2023 5:44 PM FINDINGS: Bones/joints: Normal. No acute fracture identified. Mild chondrocalcinosis. Soft tissues: Normal. IMPRESSION: No acute findings.
--- NOTE | 2023-06-25 16:40 | XR_ITS ---
PROCEDURE INFORMATION: Exam: XR Right Forearm Exam date and time: 06/25/2023 5:44 PM Age: 58 years old Clinical indication: Pain; Wrist; Right; Additional info: Fall, right elbow and wrist pain TECHNIQUE: Imaging protocol: Radiologic exam of the right forearm. Views: 2 views. AP and lateral views COMPARISON: CR XR HAND RT MIN 3V 06/25/2023 5:44 PM FINDINGS: Bones/joints: Normal. Soft tissues: Normal. IMPRESSION: No acute fracture.
--- NOTE | 2023-06-25 16:40 | CT_ITS ---
PROCEDURE INFORMATION: Exam: CT Thoracic Spine Without Contrast Exam date and time: 06/25/2023 5:25 PM Age: 58 years old Clinical indication: Injury or trauma; Fall; Blunt trauma (contusions or hematomas); Additional info: Trauma, critical injury suspected TECHNIQUE: Imaging protocol: Computed tomography of the thoracic spine without contrast. Radiation optimization: All CT scans at this facility use at least one of these dose optimization techniques: automated exposure control; mA and/or kV adjustment per patient size (includes targeted exams where dose is matched to clinical indication); or iterative reconstruction. COMPARISON: CT THORACIC SPINE WO CON 03/19/2023 10:06 AM FINDINGS: Bones/joints: No acute fracture. Normal alignment. No significant disc bulge or herniation. No severe spinal canal stenosis. No significant neural foraminal narrowing. Soft tissues: Unremarkable. IMPRESSION: Unremarkable CT Spine.
--- NOTE | 2023-06-25 16:40 | CT_ITS ---
PROCEDURE INFORMATION: Exam: CTA Chest With Contrast CTA Abdomen and Pelvis With Contrast Exam date and time: 06/25/2023 5:38 PM Age: 58 years old Clinical indication: Injury or trauma; Fall; Blunt trauma; Additional info: Trauma, critical injury suspected TECHNIQUE: Imaging protocol: Computed tomographic angiography of the chest with contrast. Exam focused on the arteries. Computed tomographic angiography of the abdomen and pelvis with contrast. Exam focused on the arteries. 3D rendering (Not supervised by radiologist): MIP and/or 3D reconstructed images were created by the technologist. Radiation optimization: All CT scans at this facility use at least one of these dose optimization techniques: automated exposure control; mA and/or kV adjustment per patient size (includes targeted exams where dose is matched to clinical indication); or iterative reconstruction. Contrast material: ISO 370; Contrast volume: 90 ml; Contrast route: INTRAVENOUS (IV); COMPARISON: CT BONY PELVIS 06/25/2023 5:31 PM FINDINGS: VASCULATURE: Pulmonary arteries: Normal. No pulmonary emboli. Aorta: Mild atherosclerotic changes of the thoracic aorta and [id number] atherosclerotic changes of the abdominal aorta without aneurysm or dissection or traumatic abnormality identified. Celiac trunk and mesenteric arteries: No occlusion or significant stenosis. Renal arteries: No occlusion or significant stenosis. Right iliac arteries: No occlusion or significant stenosis. Left iliac arteries: No occlusion or significant stenosis. CHEST: Lungs: Calcified nodule anterior left upper lobe. Lung quintanilla otherwise clear. Pleural spaces: Unremarkable. No pneumothorax. No pleural effusion. Heart: Small to moderate anterior pericardial effusion measuring 14 mm with density of 29 and small to moderate posterior pericardial effusion measuring 14 mm in thickness which is fluid density noted. ABDOMEN AND PELVIS: Liver: Fatty liver changes. Liver otherwise unremarkable. Gallbladder and bile ducts: Unremarkable. No calcified stones. No ductal dilation. Pancreas: Unremarkable. No mass. No ductal dilation. Spleen: Unremarkable. No splenomegaly. Adrenal glands: Unremarkable. No mass. Kidneys and ureters: 15 mm benign-appearing cyst lateral mid right kidney. No follow-up of this lesion advised. A 15 mm exophytic indeterminate lesion projects off of the posteroinferior left kidney with a density of 42 centered on axial image 103 of series 6. Kidneys and ureters otherwise unremarkable with no obstructing stones or uropathy. Stomach and bowel: Unremarkable. No obstruction. No mucosal thickening. Appendix: Appendix is normal. No evidence of appendicitis. Intraperitoneal space: Unremarkable. No free air. No significant fluid collection. Urinary bladder: Unremarkable. No mass. Reproductive: Unremarkable as visualized. Lymph nodes: Extensive calcified mediastinal and left hilar adenopathy compatible with old granulomatous disease. Bones/joints: Acute nondisplaced fractures of the right hip greater trochanter. No other acute fracture of the chest, abdomen and pelvis identified. Old healed bilateral rib fractures and old fractures of the L1 and L3 vertebral bodies. Soft tissues: Unremarkable. Other findings: No other findings. IMPRESSION: 1. Acute fracture of the right greater trochanter. No other definite acute abnormalities of the abdomen pelvis identified. 2. Incidental small to moderate-sized anterior pericardial effusion with density greater than fluid that might reflect chronic complex pericardial effusion as there is also possible mild pericardial thickening. Pericardial hemorrhage not totally excluded. Small to moderate fluid dense posterior pericardial effusion also noted. 3. A 15 mm exophytic indeterminate lesion projects off of the posteroinferior left kidney with a density of 42. Advise further assessment with nonemergent MRI of the kidneys with and without contrast. 4. Additional nonemergent findings as above. COMMENTS: Consistent with the [employer]'s Incidental Findings Committee white paper (J Am Shady Radiol 2018): Any incidental renal lesion less than 1 cm or classified as too small to characterize, or any incidental cystic renal lesion characterized as simple-appearing, is likely benign. No follow-up imaging is recommended for these lesions per consensus recommendations based on imaging criteria.
--- NOTE | 2023-06-25 16:40 | XR_ITS ---
PROCEDURE INFORMATION: Exam: XR Right Femur Exam date and time: 06/25/2023 5:44 PM Age: 58 years old Clinical indication: Injury or trauma; Fall; Blunt trauma; Thigh or upper leg; Right; Additional info: Right hip and knee pain after fall TECHNIQUE: Imaging protocol: Radiologic exam of the right femur. Views: 2 views. COMPARISON: CR XR HIP RT 2-3V W/PELVIS 06/25/2023 5:44 PM FINDINGS: Bones/joints: Surgical fixation hardware noted in the proximal tibia. No visible fracture or dislocation. Soft tissues: Unremarkable. IMPRESSION: No visible fracture or dislocation.
--- NOTE | 2023-06-25 16:40 | XR_ITS ---
PROCEDURE INFORMATION: Exam: XR Right Humerus Exam date and time: 06/25/2023 5:44 PM Age: 58 years old Clinical indication: Injury or trauma; Fall; Blunt trauma (contusions or hematomas); Arm, upper; Right; Additional info: Fall, right elbow and wrist pain TECHNIQUE: Imaging protocol: Radiologic exam of the right humerus. Views: 2 or more views. COMPARISON: CR XR ELBOW RT MIN 3V 06/25/2023 5:44 PM FINDINGS: Bones/joints: Normal. No acute fracture identified. Soft tissues: Normal. IMPRESSION: No acute findings.
--- NOTE | 2023-06-25 16:40 | CT_ITS ---
PROCEDURE INFORMATION: Exam: CTA Neck With Contrast Exam date and time: 06/25/2023 5:35 PM Age: 58 years old Clinical indication: Injury or trauma; Fall; Blunt trauma; Head; Additional info: Trauma, critical injury suspected TECHNIQUE: Imaging protocol: Computed tomographic angiography of the neck with contrast. Exam focused on the cervical segments of the vasculature. 3D rendering (Not supervised by radiologist): MIP and/or 3D reconstructed images were created by the technologist. Radiation optimization: All CT scans at this facility use at least one of these dose optimization techniques: automated exposure control; mA and/or kV adjustment per patient size (includes targeted exams where dose is matched to clinical indication); or iterative reconstruction. Contrast material: ISO 370; Contrast volume: 90 ml; Contrast route: INTRAVENOUS (IV); COMPARISON: CT CERVICAL SPINE WO CON 06/25/2023 5:23 PM FINDINGS: Right common carotid artery: No stenosis. No dissection or occlusion. Right internal carotid artery: No stenosis of the extracranial segment. No dissection or occlusion. Right external carotid artery: No occlusion or stenosis of the origin. Left common carotid artery: No stenosis. No dissection or occlusion. Left internal carotid artery: No stenosis of the extracranial segment. No dissection or occlusion. Left external carotid artery: No occlusion or stenosis of the origin. Right vertebral artery: Right vertebral artery is diminutive (anatomical variant) No stenosis. No dissection or occlusion. Left vertebral artery: No stenosis. No dissection or occlusion. Soft tissues: Normal. No significant soft tissue swelling. Bones/joints: No acute fracture. Other findings: For findings in the chest, please refer to the separately dictated chest CT report under a separate accession number. IMPRESSION: No occlusion or dissection along the major cervical arteries. REFERENCES: NASCET CRITERIA. The degree of stenosis in the cervical segment of the internal carotid artery is based on NASCET criteria. Normal is no stenosis. Mild is less than 50% stenosis. Moderate is 50-69% stenosis. Severe is 70% to 99% stenosis. Total occlusion is no detectable patent lumen.
--- NOTE | 2023-06-25 16:40 | XR_ITS ---
PROCEDURE INFORMATION: Exam: XR Right Foot Exam date and time: 06/25/2023 5:44 PM Age: 58 years old Clinical indication: Injury or trauma; Fall; Blunt trauma; Foot; Right; Additional info: Fall, right knee and ankle pain TECHNIQUE: Imaging protocol: Radiologic exam of the right foot. Views: 3 or more views. COMPARISON: CR XR TIBIA FIBULA RT 2V 06/25/2023 5:44 PM FINDINGS: Bones/joints: No acute fracture identified. The posterior foot including most of the calcaneus and the posterior talus somewhat obscured on the lateral view due to overlying artifact. Soft tissues: Normal. IMPRESSION: No acute fracture with above limitations.
--- NOTE | 2023-06-25 16:40 | XR_ITS ---
PROCEDURE INFORMATION: Exam: XR Right Elbow Exam date and time: 06/25/2023 5:44 PM Age: 58 years old Clinical indication: Pain; Elbow; Right; Additional info: Fall, right elbow and wrist pain TECHNIQUE: Imaging protocol: Radiologic exam of the right elbow. Views: 3 or more views. Lateral and oblique images COMPARISON: CR XR HUMERUS RT 06/25/2023 5:44 PM FINDINGS: Bones/joints: No acute fracture or dislocation. The anterior fat pad is prominent however the posterior fat pad is not identified therefore likely no joint hemarthrosis. Soft tissues: Normal. IMPRESSION: No acute fracture.
--- NOTE | 2023-06-25 16:40 | CT_ITS ---
PROCEDURE INFORMATION: Exam: CTA Head With Contrast, Arteriography Exam date and time: 06/25/2023 5:35 PM Age: 58 years old Clinical indication: Injury or trauma; Fall; Blunt trauma; Head; Additional info: Trauma, critical injury suspected TECHNIQUE: Imaging protocol: Computed tomographic angiography of the head with contrast. Exam focused on the arteries. 3D rendering (Not supervised by radiologist): MIP and/or 3D reconstructed images were created by the technologist. Radiation optimization: All CT scans at this facility use at least one of these dose optimization techniques: automated exposure control; mA and/or kV adjustment per patient size (includes targeted exams where dose is matched to clinical indication); or iterative reconstruction. Contrast material: ISO 370; Contrast volume: 90 ml; Contrast route: INTRAVENOUS (IV); COMPARISON: CT HEAD/BRAIN WO CON 06/25/2023 5:21 PM FINDINGS: ANTERIOR CIRCULATION: Right internal carotid artery: Intracranial segment is patent with no significant stenosis. No aneurysm. Right middle cerebral artery: No occlusion or significant stenosis. No aneurysm. Right anterior cerebral artery: No occlusion or significant stenosis. No aneurysm. Left internal carotid artery: Intracranial segment is patent with no significant stenosis. No aneurysm. Left middle cerebral artery: No occlusion or significant stenosis. No aneurysm. Left anterior cerebral artery: No occlusion or significant stenosis. No aneurysm. POSTERIOR CIRCULATION: Right vertebral artery: No occlusion or significant stenosis. No aneurysm. Left vertebral artery: No occlusion or significant stenosis. No aneurysm. Basilar artery: No occlusion or significant stenosis. No aneurysm. Right posterior cerebral artery: No occlusion or significant stenosis. No aneurysm. Left posterior cerebral artery: No occlusion or significant stenosis. No aneurysm. Brain: No definite mass, mass effect, or midline shift. Cerebral ventricles: No ventriculomegaly. Bones/joints: Unremarkable. No acute fracture. Soft tissues: Unremarkable. IMPRESSION: No large vessel stenosis or occlusion.
--- NOTE | 2023-06-25 16:40 | CT_ITS ---
PROCEDURE INFORMATION: Exam: CT Head Without Contrast Exam date and time: 06/25/2023 5:21 PM Age: 58 years old Clinical indication: Injury or trauma; Fall; Blunt trauma (contusions or hematomas); Additional info: Trauma, critical injury suspected TECHNIQUE: Imaging protocol: Computed tomography of the head without contrast. Radiation optimization: All CT scans at this facility use at least one of these dose optimization techniques: automated exposure control; mA and/or kV adjustment per patient size (includes targeted exams where dose is matched to clinical indication); or iterative reconstruction. COMPARISON: CT HEAD/BRAIN WO/W CON 03/26/2023 12:19 PM FINDINGS: Brain: There is no evidence of acute intracranial hemorrhage, extra-axial collection or locoregional mass effect. There are scattered hypodensities in the periventricular and subcortical white matter. The appearance is nonspecific, but most likely represents chronic small vessel disease in a person of this age Cerebral ventricles: There is diffuse prominence of the ventricles and CSF containing spaces which can be attributed to age-related volume loss. No hydrocephalus or midline shift identified. Pituitary gland and sella: Sellar/parasellar structures, craniocervical junction and orbits are unremarkable Paranasal sinuses: Scattered mucosal thickening throughout the paranasal sinuses. Mastoid air cells: Visualized mastoid air cells are well aerated. Bones/joints: No calvarial fracture Soft tissues: Unremarkable. IMPRESSION: No acute intracranial abnormality. No calvarial fracture.
--- NOTE | 2023-06-25 16:40 | CT_ITS ---
PROCEDURE INFORMATION: Exam: CT Pelvis Without Contrast; Skeletal Exam date and time: 06/25/2023 5:31 PM Age: 58 years old Clinical indication: Injury or trauma; Fall; Blunt trauma (contusions or hematomas); Right; Hip; Additional info: Trauma, critical injury suspected TECHNIQUE: Imaging protocol: Computed tomography of the pelvis without contrast. Exam focused on the skeleton. Radiation optimization: All CT scans at this facility use at least one of these dose optimization techniques: automated exposure control; mA and/or kV adjustment per patient size (includes targeted exams where dose is matched to clinical indication); or iterative reconstruction. COMPARISON: CT BONY PELVIS 03/19/2023 10:12 AM FINDINGS: Reproductive: A 9.3 cm fluid dense collection noted within the region of the right scrotum suggesting hydrocele. Bones/joints: Comminuted nondisplaced fracture of the right hip greater trochanter is noted. No other acute fracture evident. Soft tissues: Unremarkable. IMPRESSION: 1. Right greater trochanter fracture. 2. Incidental 9.3 cm hydrocele of the right scrotum. Consider further assessment with ultrasound.
--- NOTE | 2023-06-25 16:40 | CT_ITS ---
PROCEDURE INFORMATION: Exam: CT Lumbar Spine Without Contrast Exam date and time: 06/25/2023 5:27 PM Age: 58 years old Clinical indication: Injury or trauma; Fall; Blunt trauma (contusions or hematomas); Additional info: Trauma, critical injury suspected TECHNIQUE: Imaging protocol: Computed tomography of the lumbar spine without contrast. Radiation optimization: All CT scans at this facility use at least one of these dose optimization techniques: automated exposure control; mA and/or kV adjustment per patient size (includes targeted exams where dose is matched to clinical indication); or iterative reconstruction. COMPARISON: CT LUMBAR SPINE WO CON 03/19/2023 10:09 AM and MR 07/28/2020 FINDINGS: Bones/joints: Moderate inferior L1 and superior L3 compression fractures are stable. No acute fracture. Advanced degenerative changes at L4-L5 and L5-S1 redemonstrated. Associated bulging disc spur complexes with moderate bilateral foramina narrowing at these 2 levels radiology. Soft tissues: Incidental 15 mm exophytic lesion projects off of the posterior mid left kidney. Density of this lesion is around 30. This area not included in the [id number] of the prior CT L-spine 03/19/2023. IMPRESSION: 1. Stable L-spine with old compression fractures of L1 and L3. No acute abnormality. 2. Incidental 15 mm exophytic lesion posterior left kidney. This may be a residual hyperdense cyst that is somewhat smaller when compared to prior MR of 07/28/2020 but other process not excluded. Advise further assessment with nonemergent ultrasound of the kidneys or alternatively CT or MRI of the kidneys. COMMENTS: Consistent with the [employer]'s Incidental Findings Committee white paper (J Am Shady Radiol 2018): Any incidental renal lesion less than 1 cm or classified as too small to characterize, or any incidental cystic renal lesion characterized as simple-appearing, is likely benign. No follow-up imaging is recommended for these lesions per consensus recommendations based on imaging criteria.
--- NOTE | 2023-06-25 16:40 | XR_ITS ---
PROCEDURE INFORMATION: Exam: XR Right Knee Exam date and time: 06/25/2023 5:44 PM Age: 58 years old Clinical indication: Injury or trauma; Fall; Blunt trauma; Knee; Right; Additional info: Right knee and hip pain after fall TECHNIQUE: Imaging protocol: Radiologic exam of the right knee. Views: 3 views. COMPARISON: CR XR TIBIA FIBULA RT 2V 06/25/2023 5:44 PM FINDINGS: Bones/joints: No acute fracture identified. Generalized osteopenia. Old healed proximal tibial fracture with lateral sideplate and screw fixation. Soft tissues: Normal. IMPRESSION: No acute abnormality.
--- NOTE | 2023-06-25 16:45 | XR_ITS ---
PROCEDURE INFORMATION: Exam: XR Right Hand Exam date and time: 06/25/2023 5:44 PM Age: 58 years old Clinical indication: Injury or trauma; Fall; Blunt trauma (contusions or hematomas); Hand; Right; Additional info: Fall, right elbow and wrist pain TECHNIQUE: Imaging protocol: Radiologic exam of the right hand. Views: 3 or more views. COMPARISON: CR XR FOREARM RT 2V 06/25/2023 5:44 PM FINDINGS: Bones/joints: Normal. No acute fracture identified. Soft tissues: Normal. IMPRESSION: No acute findings.
[2023-06-25] MEDS: LACTATED RINGERS 1000ML 1,000 ML 999 ML IV (17:05)
[2023-06-25] MEDS: ONDANSETRON 4MG/2ML VIAL 4 MG IV (17:05)
[2023-06-25] MEDS: HYDROMORPHONE 2MG/ML SYRINGE 0.5 MG IV (17:06)
[2023-06-25] MEDS: KETOROLAC 30MG/ML VIAL 15 MG IV (17:06)
[2023-06-25] MEDS: 0.9 % SODIUM CHLORIDE 50 ML VIAL IV (18:03)
[2023-06-25] MEDS: SODIUM CHLORIDE 0.9% 10ML SYR (RAD ONLY) 10 ML IV (18:03)
[2023-06-25] MEDS: IOPAMIDOL-370 (76%);100ML BOTTLE 180 ML IV (18:04)
[2023-06-25 18:48] LABS: Basophils # 0.2 K/mm3 (0-0.2); Eosinophils # 0.2 K/mm3 (0.0-0.4); Eosinophils % 2.7 % (0.1-12.0); Hematocrit 40.2 % (42.0-52.0); Hemoglobin 12.8 g/dL (14.1-18.0); Lymphocytes # 1.5 K/mm3 (0.7-4.5); Lymphocytes % 22.8 % (10-50); Mean Corpuscular HGB Conc 31.8 g/dL (31.8-35.4); Mean Corpuscular Volume 103.7 fl (80-94); Mean Platelet Volume 7.7 fl (7.4-10.4); Monocytes # 0.3 K/mm3 (0.1-1.0); Monocytes % 5.1 % (1.7-9.3); Neutrophils # 4.4 K/mm3 (1.8-7.8); Neutrophils % 66.4 % (37.0-80.0); Platelet Count 284 K/mm3 (142-424); Red Blood Count 3.88 M/mm3 (4.60-6.20); Red Cell Distribution Width 16.8 % (11.5-17.5); White Blood Count 6.7 K/mm3 (4.8-10.8)
[2023-06-25 18:50] LABS: Chloride 102 mmol/L (98-107); Potassium 4.4 mmoL/L (3.5-5.1); Sodium 138 mmol/L (136-145)
[2023-06-25 18:53] LABS: Alanine Aminotransferase 19 U/L (12-78); Alkaline Phosphatase 269 U/L (38-126); Anion Gap 15.4 mEq/L (5-15); Aspartate Amino Transferase 81 U/L (17-59); Bilirubin,Total 0.7 mg/dl (0.2-1.3); Blood Urea Nitrogen 11 mg/dl (9-20); Calcium 8.1 mg/dl (8.4-10.2); Carbon Dioxide 25 mmol/L (22.0-30.0); Creatinine Clearance Estimated 138 mL/min (50-200); Estimated Glomerular Filt Rate 99 ml/min (>60); Ethyl Alcohol 294 mg/dl (0-10); GFR (African American) 120 ML/MIN (>60); Glucose 86 mg/dl (74-100); Lipase 284 U/L (23-300)
[2023-06-25 18:54] LABS: Albumin Level 3.6 g/dl (3.5-5.0); Globulin 3.6 g/dL (1.3-3.2); Total Protein,Serum 7.2 g/dl (6.3-8.2)
[2023-06-25 18:55] LABS: Activated Partial Thrombo Time 27.5 seconds (22.8-30.6); INR 0.97 (0.9-1.1); Prothrombin Time 10.5 seconds (10.1-12.5)
[2023-06-25] MEDS: HYDROMORPHONE 2MG/ML SYRINGE 1 MG IV (19:35)
--- NOTE | 2023-06-25 20:13 | PC.NURSE ---
notified dry house tender of admission
[2023-06-25 20:30] VITALS: BP 146/108; PULSE 103; O2SAT 96
--- NOTE | 2023-06-25 20:39 | PC.NURSE ---
Report called to HORTENCIA Reilly at this time
[2023-06-25 20:45] VITALS: BP 146/108; PULSE 104; RESP 20; TEMP 37.1; O2SAT 95
--- NOTE | 2023-06-25 21:10 | PC.NURSE ---
Pt arrived to the floor complaining of severe pain and states that until he gets more pain meds he will not transfer to bed from stretcher. Notified EQ, MUSIC MANAGER, new orders given for pain and agitation see [facility]. Stretcher locked and lowered for safety, call light within reach.
--- NOTE | 2023-06-25 21:14 | PC.NURSE ---
Patient arrived to floor via stretcher from ED at 20:51.
--- NOTE | 2023-06-25 21:26 | EXP.HP ---
History of Present Illness *Admission Date: 06/25/23 *Reason for visit:: fall *History of present illness: This is a 58yo male with PMHx of COPD, HTN, cardiomyopathy, CHF, GRD, alcohol abuse medical non compliance brought in by EMS after fall at home. patient is currently alcohol intoxicated. Was trying to let the dog out, dog pulled him off the porch and he fell a couple of feet onto a dirt slope. Tumbled down the slope. Landed primarily on his right elbow, right wrist, right knee. Having significant tenderness right upper and right lower extremities, so called EMS. on arrival was c/o pain on hid right hip. Pain is moderate in intensity and does not radiate while at rest, severe when trying to range his right hip. No bowel or bladder dysfunction, back pain, neck pain, chest pain, shortness of breath, nausea or vomiting, or any other concerns. admitted for treatment and management. [facility] Disclaimer: The information contained in this section may have been updated after the patient was seen, as this information can be updated by other users. Medical History Tobacco use Paroxysmal atrial fibrillation Alcoholism Anxiety GERD (gastroesophageal reflux disease) Laceration of finger, left, complicated Small and ring fingers. COPD (chronic obstructive pulmonary disease) Pulmonary hypertension Cirrhosis, alcoholic CHF (congestive heart failure) Hypertension Atrial fibrillation with rapid ventricular response Exposure to COVID-19 virus Surgical History History of discectomy History of cardiac radiofrequency ablation Family History Other Cancer Hypertension Stroke Substance abuse Social History (Updated 06/26/23 @ 01:24 by Melba Orr RN) Smoking Status: Unknown if ever smoked alcohol intake: current alcohol intake frequency: 3 or more drinks per day substance use type: denies use current occupational status: employed Travel in the last 8 weeks: None household members: significant other housing: house 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 current occupational exposures/hazards: No caffeine: Yes Review of Systems Review of Systems Review of systems:: pertinent systems reviewed and negative unless documented below Meds Home Medications and Allergies Home Medications Medication Instructions Recorded Confirmed Type digoxin 250 mcg (0.25 mg) tablet 250 mcg PO DAILY #30 tabs 03/28/23 06/26/23 Rx sacubitril 24 mg-valsartan 26 mg 1 tab PO BID #60 tabs 03/28/23 06/26/23 Rx tablet (Entresto) spironolactone 25 mg tablet 25 mg PO DAILY #30 tabs 03/28/23 06/26/23 Rx (Aldactone) amiodarone 200 mg tablet 200 mg PO DAILY 06/16/23 06/26/23 History apixaban 5 mg tablet 5 mg PO BID 06/16/23 06/26/23 History empagliflozin 10 mg tablet 10 mg PO DAILY #30 tabs 06/16/23 06/26/23 Rx (Jardiance) metoprolol succinate 50 mg 50 mg PO DAILY #30 tabs 06/16/23 06/26/23 Rx tablet,extended release 24 hr (Toprol XL) sertraline 100 mg tablet 100 mg PO DAILY 06/16/23 06/26/23 History New Prescriptions to Start Prescriptions: Allergies Allergy/AdvReac Type Severity Reaction Status Date / Time hydrochlorothiazide AdvReac Unknown Other Verified 06/19/23 14:21 Exam Data for Last 24 hours Vital signs and Labs for Last 24 Hours: Temp Pulse Resp BP Pulse Ox O2 Del Method 98.7 F 104 H 20 146/108 H 96 Room Air 06/25/23 20:45 06/25/23 20:45 06/25/23 20:45 06/25/23 20:45 06/25/23 20:30 06/25/23 20:45 Laboratory Results - last 24 hr 06/25/23 18:30: WBC 6.7, RBC 3.88 L, Hgb 12.8 L, Hct 40.2 L, MCV 103.7 H, MCH 33.0 H, MCHC 31.8, RDW 16.8, Plt Count 284, MPV 7.7, Neut % (Auto) 66.4, Lymph % (Auto) 22.8, [place] % (Auto) 5.1, Eos % (Auto) 2.7, Baso % (Auto) 3.0 H, Neut # (Auto) 4.4, Lymph # (Auto) 1.5, [place] # (Auto) 0.3, Eos # (Auto) 0.2, Baso # (Auto) 0.2, PT 10.5, INR 0.97, APTT 27.5, Sodium 138, Potassium 4.4, Chloride 102, Carbon Dioxide 25, Anion Gap 15.4 H, BUN 11, Creatinine 0.80, Estimated Creat Clear 138, Estimated GFR 99, Est GFR ( Amer) 120, Glucose 86, Calcium 8.1 L, Total Bilirubin 0.7, AST 81 H, ALT 19, Alkaline Phosphatase 269 H, Total Protein 7.2, Albumin 3.6, Globulin 3.6 H, Albumin/Globulin Ratio 1.0 L, Lipase 284, Plasma/Serum Alcohol 294 H Temp Pulse Resp BP Pulse Ox O2 Del Method O2 Flow Rate 98.3 F 52 L 21 97/75 L 98 Nasal Cannula 3 03/19/23 08:47 03/19/23 13:00 03/19/23 13:00 03/19/23 13:00 03/19/23 13:00 03/19/23 13:00 03/19/23 13:00 FiO2 35 03/19/23 09:17 Laboratory Results - last 24 hr 03/19/23 08:40: D-Dimer 1.26 H 03/19/23 08:45: WBC 6.5, RBC 3.48 L, Hgb 11.4 L, Hct 36.7 L, MCV 105.5 H, MCH 32.8 H, MCHC 31.1 L, RDW 16.2, Plt Count 476 H, MPV 7.9, Neut % (Auto) 67.4, Lymph % (Auto) 22.6, [place] % (Auto) 6.9, Eos % (Auto) 2.2, Baso % (Auto) 0.9, Neut # (Auto) 4.4, Lymph # (Auto) 1.5, [place] # (Auto) 0.5, Eos # (Auto) 0.1, Baso # (Auto) 0.1, PT 12.4, INR 1.16 H, Sodium 139, Potassium 4.7, Chloride 105, Carbon Dioxide 28, Anion Gap 10.7, BUN 22 H, Creatinine 1.10, Estimated Creat Clear 117, Estimated GFR 69, Est GFR ( Amer) 83, Glucose 94, Calcium 7.8 L, Total Bilirubin 0.5, AST 33, ALT 18, Alkaline Phosphatase 262 H, Ammonia 16, Troponin I < 0.01, NT-Pro-B Natriuret Pep 83619 H, Total Protein 6.6, Albumin 2.8 L, Globulin 3.8 H, Albumin/Globulin Ratio 0.7 L, SARS-CoV-2 (PCR) Not detected, Influenza A Untype (PCR) Not detected, Influenza Type B (PCR) Not detected 03/19/23 08:50: Urine Color Yellow, Urine Appearance Clear, Urine pH 6.0, Ur Specific [place] 1.025, Urine Protein Negative, Urine Glucose (UA) Negative, Urine Ketones Negative, Urine Blood Negative, Urine Nitrate Negative, Urine Bilirubin Negative, Urine Urobilinogen 0.2, Ur Leukocyte Esterase Negative, Urine RBC None, Urine WBC Occasional, Ur Squamous Epith Cells Occasional, Urine Bacteria Trace 03/19/23 08:58: VBG pH 7.29 L, VBG pCO2 51.3 H, VBG pO2 31.2, VBG HCO3 24.2, VBG Total CO2 25.8, VBG O2 Saturation 53.5, VBG Base Excess -2.3 03/19/23 12:35: Troponin I < 0.01 I & O for Last 24 hours: Intake & Output 06/22/23 06/23/23 06/24/23 06/25/23 23:59 23:59 23:59 23:59 Weight 96.615 kg Intake & Output 03/17/23 03/18/23 03/19/23 03/20/23 11:59 11:59 11:59 11:59 Intake Total 1.417 / 1.417 36.333 / 36.333 Output Total 800 / 800 Balance 1.417 / 1.417 -763.667 / -763.667 Weight 250 lb Constitutional Constitutional: no acute distress *Routine HEENT Exam Head: Present normocephalic and atraumatic Eye: Present EOMI and PERRL ENT: Present mucous membranes dry *Routine Neck Exam Neck: Present supple and full ROM *Routine Respiratory Exam Respiratory: Present rhonchi and wheezes *Routine Cardiovascular Exam Cardiovascular: Present irregularly irregular *Routine Abdominal Exam Abdominal: Present soft, normoactive bowel sounds and distended; Absent tenderness *Routine Rectal Exam Rectal:: deferred *Routine Genitalia Exam Genitalia:: deferred *Routine Extremities Exam Extremities: Present edema (of the abdomen, scrotum, and bilateral upper and LE's) *Routine Skin Exam Skin: Present intact and erythema (both lower legs) Comments: necrotic appearing tissue over the tips of the left 4 th and 5 th digits *Routine Neurological Exam Neurological: Present alert, altered mental status and tremors H&P: Result Imaging and Cardiology EKG: Status: image reviewed by me, Preliminary report and final report CT scan - pelvis: Status: image reviewed by me, Preliminary report and final report Assessment and Plan *Assessment and plan (1) Closed fracture of greater trochanter of right femur: Status: Acute Qualifiers: Encounter type: initial encounter Fracture alignment: nondisplaced Qualified Code(s): S72.114A - Nondisplaced fracture of greater trochanter of right femur, initial encounter for closed fracture Category: Medical Code(s): S72.111A - Displaced fracture of greater trochanter of right femur, initial encounter for closed fracture (2) Alcohol intoxication: Status: Acute Qualifiers: Complication of substance-induced condition: uncomplicated Qualified Code(s): F10.920 - Alcohol use, unspecified with intoxication, uncomplicated Category: Medical Code(s): F10.929 - Alcohol use, unspecified with intoxication, unspecified (3) Fall: Status: Acute Qualifiers: Encounter type: initial encounter Qualified Code(s): W19.XXXA - Unspecified fall, initial encounter Category: Medical Code(s): W19.XXXA - Unspecified fall, initial encounter (4) Cardiomyopathy: Status: Acute Qualifiers: Cardiomyopathy type: unspecified Qualified Code(s): I42.9 - Cardiomyopathy, unspecified Category: Medical Code(s): I42.9 - Cardiomyopathy, unspecified (5) CHF (congestive heart failure): Status: Chronic Qualifiers: Heart failure chronicity: unspecified Heart failure type: unspecified Qualified Code(s): I50.9 - Heart failure, unspecified Category: Medical Code(s): I50.9 - Heart failure, unspecified (6) Hypertension: Status: Chronic Qualifiers: Hypertension type: unspecified Qualified Code(s): I10 - Essential (primary) hypertension Category: Medical Code(s): I10 - Essential (primary) hypertension (7) COPD (chronic obstructive pulmonary disease): Status: Chronic Qualifiers: COPD type: unspecified COPD Qualified Code(s): J44.9 - Chronic obstructive pulmonary disease, unspecified Category: Medical Code(s): J44.9 - Chronic obstructive pulmonary disease, unspecified (8) GERD (gastroesophageal reflux disease): Status: Acute Qualifiers: Esophagitis presence: esophagitis presence not specified Qualified Code(s): K21.9 - Gastro-esophageal reflux disease without esophagitis Category: Medical Code(s): K21.9 - Gastro-esophageal reflux disease without esophagitis (9) Anxiety: Status: Acute Category: Medical Code(s): F41.9 - Anxiety disorder, unspecified (10) Tobacco use: Status: Acute Category: Social Hx Code(s): Z72.0 - Tobacco use Plan 58yo male with PMHx of COPD, HTN, cardiomyopathy, CHF, GRD, alcohol abuse medical non compliance brought in by EMS after fall at home. patient is currently alcohol intoxicated. Workup are significant for nonactionable CBC. Coags negative. Chemistry nonactionable. Ethanol level 294. Patient's CT trauma scans with incidentally found renal lesion as well as pericardial effusion. CT bony pelvis with greater trochanter fracture that does not go through femoral neck. Ortho consulted. ED requested admission. Agreed for admission. Plans as follow: Closed right femur Fx s/p fall at home alcohol intoxication Admit patient. Ortho consulted. Images concerning for intertrochanteric fracture. Recommend MRI. tylenol 1000mg q6h; Continue Toradol 30 mg every 6 hours as needed for pain control along with morphine 4 mg as needed every 4 hours, monitor for toxicity multivitamin B1 and folate CIWA protocol. Valium per protocol others chronic conditions: COPD, CHF, HTN, GERD Patient poorly compliant. Has chronic heart failure with reduced ejection fraction. Recent echo with EF 30%. Cardiology consulted for preoperative clearance/optimization nursing to reconcile home medication Anxiety on lorazepam tobacco on nicotine patient on home eliquis, holding in the perioperative setting On protonix for GERD Full code Rounded on patient after nurse practitioner. Personally examined and interviewed patient. Agree with exam findings and care plan as documented.
[2023-06-25] MEDS: LORazepam 2MG/ML VIAL 1 MG IV (21:51)
[2023-06-25] MEDS: MORPHINE 4MG/ML SYRINGE 4 MG IV (21:52)
--- NOTE | 2023-06-25 21:55 | PC.NURSE ---
Unable to complete admission questions at this time pt agitated and states that hes not answering any questions. Received info in report from ED that pt is intoxicated and yelling out, Pt remains intoxicated and continues to yell. Pt still on strecher at this time and continues to refuse to transfer, charge nurse and WEB ASSISTANT aware of situation. Pain and agitation medication given at this time. Pt states that he wants to wait to move until the medicine is working.
--- NOTE | 2023-06-25 22:30 | PC.NURSE ---
Pt agreed to transfer to bed from stretcher at this time this nurse and tech x3 completed transfer. this nurse was able to perform skin assessment and at this time, pt remains unable to finish admission questions at this time. Pt states that pain has decreased to a reported 7/10.
--- NOTE | 2023-06-25 22:48 | PC.WOUNDNOTE ---
Right elbow right side of right knee
[2023-06-25 22:55] VITALS: BP 157/113; PULSE 102; RESP 18; TEMP 36.7; O2SAT 90
[2023-06-26] VITALS: BP 157/109; PULSE 102; RESP 18; TEMP 36.6; O2SAT 91
[2023-06-26] MEDS: KETOROLAC 30MG/ML VIAL 30 MG IV ×3 (00:58→15:12)
--- NOTE | 2023-06-26 01:35 | PC.NURSE ---
Notified EQ, PARACHUTE INSPECTOR of pt continuing increased BP, No new orders at this time.
[2023-06-26] MEDS: MORPHINE 4MG/ML SYRINGE 4 MG IV ×3 (02:13→17:28)
[2023-06-26 04:00] VITALS: BMI 29.2
--- NOTE | 2023-06-26 04:07 | PC.NURSE ---
Pt is alert and oriented x4. pt has c/o severe pain in right hip due to fracture. Pt states that pain increases the more he moves. Pt has been treated per mar for pain and agitation. Pt BP has been elevated since admission (CUSTOMS OPENER VERIFIER PACKER aware).
[2023-06-26] MEDS: LORazepam 2MG/ML VIAL 1 MG IV (04:34)
[2023-06-26 07:25] LABS: Basophils # 0.2 K/mm3 (0-0.2); Basophils % 3.3 % (0.1-2.0); Eosinophils # 0.2 K/mm3 (0.0-0.4); Eosinophils % 3.3 % (0.1-12.0); Hematocrit 39.4 % (42.0-52.0); Hemoglobin 12.5 g/dL (14.1-18.0); Lymphocytes # 1.4 K/mm3 (0.7-4.5); Lymphocytes % 29.4 % (10-50); Mean Corpuscular HGB Conc 31.6 g/dL (31.8-35.4); Mean Corpuscular Hemoglobin 33.1 pg (27.0-31.2); Mean Corpuscular Volume 104.9 fl (80-94); Mean Platelet Volume 7.9 fl (7.4-10.4); Monocytes # 0.5 K/mm3 (0.1-1.0); Monocytes % 9.8 % (1.7-9.3); Neutrophils # 2.5 K/mm3 (1.8-7.8); Neutrophils % 54.1 % (37.0-80.0); Platelet Count 260 K/mm3 (142-424); Red Blood Count 3.76 M/mm3 (4.60-6.20); White Blood Count 4.7 K/mm3 (4.8-10.8)
[2023-06-26 08:00] VITALS: BP 148/108; PULSE 107; RESP 18; TEMP 36.7; O2SAT 92
--- NOTE | 2023-06-26 08:49 | MR_ITS ---
FINAL REPORT CLINICAL HISTORY: R GT hip Fx rule out intertroch extension FINDINGS: Multiplanar MR imaging of the right hip was performed without contrast. On the T1 weighted coronal images, there is complex comminuted fracture of the superior greater trochanter. There is intertrochanteric extension of the fracture line. The lesser trochanter does not appear to be fractured. There is extensive soft tissue edema and fluid superior to the greater trochanter. The femoral head demonstrates a normal smooth contour. Small joint effusion is identified. IMPRESSION: Comminuted, mildly displaced fracture of the superior greater trochanter with intertrochanteric extension and extensive overlying soft tissue edema. Reviewed, Interpreted and Dictated by Nathanael Knowles MD Transcribed by Joan Bliss Authenticated and [facility]
--- NOTE | 2023-06-26 08:52 | EXP.ORTH.CON ---
History of Present Illness *Admission Date: 06/25/23 *History of present illness: This is a 58yo male with PMHx of COPD, HTN, cardiomyopathy, CHF, GRD, alcohol abuse medical non compliance brought in by EMS after fall at home. patient was alcohol intoxicated. Was trying to let the dog out, dog pulled him off the porch and he fell a couple of feet onto a dirt slope. Tumbled down the slope. Landed primarily on his right elbow, right wrist, right knee. Having significant tenderness right upper and right lower extremities, so called EMS. on arrival was c/o pain on his right hip. Pain is moderate in intensity and does not radiate while at rest, severe when trying to range his right hip. No bowel or bladder dysfunction, back pain, neck pain, chest pain, shortness of breath, nausea or vomiting, or any other concerns. admitted for treatment and management. [facility] Disclaimer: The information contained in this section may have been updated after the patient was seen, as this information can be updated by other users. Medical History Tobacco use Paroxysmal atrial fibrillation Alcoholism Anxiety GERD (gastroesophageal reflux disease) Laceration of finger, left, complicated Small and ring fingers. COPD (chronic obstructive pulmonary disease) Pulmonary hypertension Cirrhosis, alcoholic CHF (congestive heart failure) Hypertension Atrial fibrillation with rapid ventricular response Exposure to COVID-19 virus Surgical History History of discectomy History of cardiac radiofrequency ablation Family History Other Cancer Hypertension Stroke Substance abuse Social History (Updated 06/26/23 @ 01:24 by Melba Orr RN) Smoking Status: Unknown if ever smoked alcohol intake: current alcohol intake frequency: 3 or more drinks per day substance use type: denies use current occupational status: employed Travel in the last 8 weeks: None household members: significant other housing: house 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 current occupational exposures/hazards: No caffeine: Yes Meds Home Medications and Allergies Home Medications Medication Instructions Recorded Confirmed Type digoxin 250 mcg (0.25 mg) tablet 250 mcg PO DAILY #30 tabs 03/28/23 06/26/23 Rx sacubitril 24 mg-valsartan 26 mg 1 tab PO BID #60 tabs 03/28/23 06/26/23 Rx tablet (Entresto) spironolactone 25 mg tablet 25 mg PO DAILY #30 tabs 03/28/23 06/26/23 Rx (Aldactone) amiodarone 200 mg tablet 200 mg PO DAILY 06/16/23 06/26/23 History apixaban 5 mg tablet 5 mg PO BID 06/16/23 06/19/23 History empagliflozin 10 mg tablet 10 mg PO DAILY #30 tabs 06/16/23 06/26/23 Rx (Jardiance) metoprolol succinate 50 mg 50 mg PO DAILY #30 tabs 06/16/23 06/26/23 Rx tablet,extended release 24 hr (Toprol XL) sertraline 100 mg tablet 100 mg PO DAILY 06/16/23 06/19/23 History trazodone 100 mg tablet 100 mg PO DAILY 06/16/23 06/19/23 History New Prescriptions to Start Prescriptions: Allergies Allergy/AdvReac Type Severity Reaction Status Date / Time hydrochlorothiazide AdvReac Unknown Other Verified 06/19/23 14:21 Ortho Exam (Inpt) Vital signs and Labs for Last 24 Hours: Temp Pulse Resp BP Pulse Ox O2 Del Method 98.0 F 107 H 18 148/108 H 92 L Room Air 06/26/23 08:00 06/26/23 08:00 06/26/23 08:00 06/26/23 08:00 06/26/23 08:00 06/26/23 08:00 Laboratory Results - last 24 hr 06/25/23 18:30: WBC 6.7, RBC 3.88 L, Hgb 12.8 L, Hct 40.2 L, MCV 103.7 H, MCH 33.0 H, MCHC 31.8, RDW 16.8, Plt Count 284, MPV 7.7, Neut % (Auto) 66.4, Lymph % (Auto) 22.8, [place] % (Auto) 5.1, Eos % (Auto) 2.7, Baso % (Auto) 3.0 H, Neut # (Auto) 4.4, Lymph # (Auto) 1.5, [place] # (Auto) 0.3, Eos # (Auto) 0.2, Baso # (Auto) 0.2, PT 10.5, INR 0.97, APTT 27.5, Sodium 138, Potassium 4.4, Chloride 102, Carbon Dioxide 25, Anion Gap 15.4 H, BUN 11, Creatinine 0.80, Estimated Creat Clear 138, Estimated GFR 99, Est GFR ( Amer) 120, Glucose 86, Calcium 8.1 L, Total Bilirubin 0.7, AST 81 H, ALT 19, Alkaline Phosphatase 269 H, Total Protein 7.2, Albumin 3.6, Globulin 3.6 H, Albumin/Globulin Ratio 1.0 L, Lipase 284, Plasma/Serum Alcohol 294 H 06/26/23 05:37: WBC 4.7 L D, RBC 3.76 L, Hgb 12.5 L, Hct 39.4 L, MCV 104.9 H, MCH 33.1 H, MCHC 31.6 L, RDW 17.0, Plt Count 260, MPV 7.9, Neut % (Auto) 54.1, Lymph % (Auto) 29.4, [place] % (Auto) 9.8 H, Eos % (Auto) 3.3, Baso % (Auto) 3.3 H, Neut # (Auto) 2.5, Lymph # (Auto) 1.4, [place] # (Auto) 0.5, Eos # (Auto) 0.2, Baso # (Auto) 0.2 I & O for Labs for Last 24 Hours: Intake & Output 06/23/23 06/24/23 06/25/23 06/26/23 23:59 23:59 23:59 23:59 Intake Total 510 / 510 Output Total 400 / 400 Balance 110 / 110 Weight 213 lb 215 lb 11.2 oz Constitutional: Present no acute distress Head: Present normocephalic Additional findings:: Right hip: Skin is intact. Sensations intact. He is unable to lift his hip secondary to pain. Any motion with active abduction or forward flexion causes pain radiating to the outside part of his hip. X-rays and CT scan of the right hip reveal isolated comminuted greater trochanteric fracture Results Labs 06/26/23 05:37 06/25/23 18:30 Labs: Abnormal lab results 06/25/23 06/26/23 Range/Units 18:30 05:37 WBC 4.7 L D (4.8-10.8) K/mm3 RBC 3.88 L 3.76 L (4.60-6.20) M/mm3 Hgb 12.8 L 12.5 L (14.1-18.0) g/dL Hct 40.2 L 39.4 L (42.0-52.0) % MCV 103.7 H 104.9 H (80-94) fl MCH 33.0 H 33.1 H (27.0-31.2) pg MCHC 31.6 L (31.8-35.4) g/dL [place] % (Auto) 9.8 H (1.7-9.3) % Baso % (Auto) 3.0 H 3.3 H (0.1-2.0) % Anion Gap 15.4 H (5-15) mEq/L Calcium 8.1 L (8.4-10.2) mg/dl AST 81 H (17-59) U/L Alkaline Phosphatase 269 H (38-126) U/L Globulin 3.6 H (1.3-3.2) g/dL Albumin/Globulin Ratio 1.0 L (1.1-1.8) Plasma/Serum Alcohol 294 H (0-10) mg/dl H & H 06/25/23 06/26/23 Range/Units 18:30 05:37 Hgb 12.8 L 12.5 L (14.1-18.0) g/dL Hct 40.2 L 39.4 L (42.0-52.0) % Coagulation 06/25/23 Range/Units 18:30 INR 0.97 (0.9-1.1) All other labs normal. Assessment and Plan *Assessment and plan (1) Closed fracture of greater trochanter of right femur: Status: Acute Qualifiers: Encounter type: initial encounter Fracture alignment: nondisplaced Qualified Code(s): S72.114A - Nondisplaced fracture of greater trochanter of right femur, initial encounter for closed fracture Category: Medical Code(s): S72.111A - Displaced fracture of greater trochanter of right femur, initial encounter for closed fracture (2) Fall: Status: Acute Qualifiers: Encounter type: initial encounter Qualified Code(s): W19.XXXA - Unspecified fall, initial encounter Category: Medical Code(s): W19.XXXA - Unspecified fall, initial encounter Plan Although it can happen mechanisms of fall directly on the right side resulting in greater trochanteric fractures can have fracture lines extending into the intertrochanteric region. This is obviously important to determine the need for surgical versus nonsurgical treatment. Unfortunately x-rays and CT scans are not sensitive at capturing this extension into the intertrochanteric region. Therefore MRI scan of the hip is indicated to confirm isolation of the fracture at the greater trochanteric area. He is symptomatic with range of motion and reports he is unable to weight-bear. Will order MRI scan as soon as possible to evaluate any extension of the fracture into the intertrochanteric region if there is extension into the intertrochanteric region he would require surgical intervention to stabilize the fracture. If the fracture remains isolated to the greater trochanter nonoperative treatment can be initiated safely.
[2023-06-26 08:57] LABS: Chloride 104 mmol/L (98-107); Potassium 3.8 mmoL/L (3.5-5.1); Sodium 137 mmol/L (136-145)
[2023-06-26 08:59] LABS: Blood Urea Nitrogen 10 mg/dl (9-20); Creatinine Clearance Estimated 111 mL/min (50-200); Estimated Glomerular Filt Rate 77 ml/min (>60); GFR (African American) 93 ML/MIN (>60)
[2023-06-26 09:00] LABS: Alanine Aminotransferase 15 U/L (12-78); Albumin Level 3.5 g/dl (3.5-5.0); Alkaline Phosphatase 270 U/L (38-126); Aspartate Amino Transferase 65 U/L (17-59); Bilirubin,Total 0.8 mg/dl (0.2-1.3); Globulin 3.6 g/dL (1.3-3.2); Glucose 64 mg/dl (74-100); Total Protein,Serum 7.1 g/dl (6.3-8.2)
[2023-06-26 09:40] LABS: Anion Gap 11.8 mEq/L (5-15); Carbon Dioxide 25 mmol/L (22.0-30.0)
--- NOTE | 2023-06-26 09:49 | HMH.PHAINT1 ---
Pharmacy Intervention Comments: HOME MEDICATION LIST VERIFIED VIA OUTSIDE PHARMACY AND PHYSICAN LIST
[2023-06-26] MEDS: FOLIC ACID 1MG TABLET 1 MG PO (09:50)
[2023-06-26] MEDS: MVI, ADULT NO.1 WITH VIT K 10 ML, THIAMINE HCL 100 MG, MAGNESIUM SULFATE 2 GM in LACTAT... 125 ML IV (09:50)
[2023-06-26] MEDS: NICOTINE 21MG/24HR PATCH 21 MG TD ×2 (09:57→21:05)
[2023-06-26 12:00] VITALS: BP 180/94; PULSE 103; RESP 18; TEMP 36.6; O2SAT 96
--- NOTE | 2023-06-26 12:51 | CA_ITS ---
APPROVED REPORT EXAM: Comprehensive 2D, Doppler, and color-flow Echocardiogram Car Hostler: Jasmin Rondon RT(R) Ht: 6 ft 0 in Wt: 215lbs BSA: 2.20 BP: 146/108 mmHg Indications: AFIB, COPD, HTN, PHTN, smoker, smoker, right hip fracture(unable to roll in position for echo), hx CM, cirrhosis, ANTONETTE and TTE done 03/19/23 , EF 30%. Chronic pericardial effusion, hx of cardioversion, ablations x 2. 2D Dimensions EF AP4 56.90 % GL Strain -21.4 % M-Mode Dimensions RVDd 4.37 cm (0.9-2.6) LA Diam 4.99 cm (1.9-4.0) LVDd 3.94 cm (3.5-5.7) LVDs 3.19 cm (3.5-5.7) IVSd 1.55 cm (0.6-1.1) PWd 1.08 cm (0.6-1.1) EF (Teich) 39.90% FS 19.00% EDV (Teich) 67.50 mL ESV (Teich) 40.60 mL Tricuspid Valve TR P. Velocity 258.00 cm/s RAP Estimate 10.00 mmHg RVSP 36.60 mmHg Left Ventricle The left ventricle is normal size. Left ventricular systolic function is moderate to severely decreased. There is increased LV wall thickness. There is moderate to severe global hypokinesis present. The septum is asynchronous. Diastolic function is indeterminate. LVEF is 30%. Right Ventricle The right ventricle is severely dilated. Right ventricle is moderately hypokinetic. Atria Left atrium is mildly dilated. Right atrium is mildly dilated. There is no Doppler evidence of interatrial shunt. Aortic Valve The aortic valve opens well. There is no aortic valvular stenosis. Mild aortic regurgitation. Mitral Valve The mitral valve leaflets are mildly thickened. No evidence of mitral valve stenosis. Mild mitral regurgitation. Tricuspid Valve The tricuspid valve leaflets are not very well-visualized. At least mild tricuspid regurgitation is present. This may underestimated in the setting of difficult to visualize the tricuspid valve. RVSP is 25-30 mmHg. Pulmonic Valve The pulmonary valve is normal in structure. Trace pulmonic regurgitation. Great Vessels The aortic root is normal in size. The ascending aorta is normal in size. The IVC is normal in size, but collapses < 50% with respirophasic variation. RA pressure is estimated at 8 mmHg. Pericardium There is a small sized, circumferential pericardial effusion present. The largest pocket is noted posteriorly measuring up to 0.9 cm in diastole. There is another pocket anteriorly measuring 0.8 cm in diastole. No clear echo indications of tamponade. Other Information Study Quality: Technically Difficult Conclusion Technically difficult study due to poor acoustic windows. Moderate to severe reduction in LV systolic function (LVEF 30%). Severe RV dilation with moderate reduction in RV function. Biatrial dilation. Mild AI, mild MR. At least mild tricuspid regurgitation. The severity of TR may be underestimated in the setting of technically difficult study. RVSP 25-30 mmHg. Small sized, circumferential pericardial effusion present. The largest pocket is noted posteriorly measuring up to 0.9 cm in diastole. There is another pocket anteriorly measuring 0.8 cm in diastole. No clear echo indications of tamponade. Compared to prior study from 03/2023, the pericardial effusion appears overall unchanged. Electronically signed by : Adenike Garcia MD 06/26/2023 15:42:17
[2023-06-26] MEDS: diazePAM 5MG TABLET 5 MG PO ×2 (13:24→20:07)
--- NOTE | 2023-06-26 13:31 | EXP.CARD.CON ---
History of Present Illness History of Present Illness Consult date: 06/26/23 Requesting physician: Richie Parra Consult reason: pre-op evaluation Chief complaint: Hip Fx, Cardiomyopathy, pericardial effusion Additional Medical History:: 1. Cardiomyopathy, unclear etiology A.Echocardiogram, 03/19/2023, EF 30%, Severe RV dilatation with severe reduction in RV function. Biatrial enlargement. Mild MR, severe TR with RVSP at least 30 mmHg. Small circumferential pericardial effusion with no evidence of chamber collapse but difficult to assess in the setting of severe RV dilatation and dysfunction. B. CTA of the chest, 06/25/2023 showing increase in pericardial effusion from 9 mm in March to 14 mm at this time. 2. Alcohol abuse 3. COPD A. Tobacco use, 2 packs/day since age 16 4. Hypertension 5. Hyperlipidemia 6. History of atrial fibrillation A. History of atrial fib ablation x 2, with the last one approximately 2016 in [place], [place] 7. Pericardial effusion on Echo, 03/2023 A. Worse on CTA of chest, 06/25/2023 History of present illness: This is a 58yo male with PMHx of COPD, HTN, cardiomyopathy, CHF, GRD, alcohol abuse medical non compliance brought in by EMS after fall at home. patient is currently alcohol intoxicated. Was trying to let the dog out, dog pulled him off the porch and he fell a couple of feet onto a dirt slope. Tumbled down the slope. Landed primarily on his right elbow, right wrist, right knee. Having significant tenderness right upper and right lower extremities, so called EMS. on arrival was c/o pain on hid right hip. Pain is moderate in intensity and does not radiate while at rest, severe when trying to range his right hip. No bowel or bladder dysfunction, back pain, neck pain, chest pain, shortness of breath, nausea or vomiting, or any other concerns. Admitted for treatment and management. The above per Jeffrey Kramer APRN for hospitalist service [facility] Disclaimer: The information contained in this section may have been updated after the patient was seen, as this information can be updated by other users. Medical History Tobacco use Paroxysmal atrial fibrillation Alcoholism Anxiety GERD (gastroesophageal reflux disease) Laceration of finger, left, complicated Small and ring fingers. COPD (chronic obstructive pulmonary disease) Pulmonary hypertension Cirrhosis, alcoholic CHF (congestive heart failure) Hypertension Atrial fibrillation with rapid ventricular response Exposure to COVID-19 virus Surgical History History of discectomy History of cardiac radiofrequency ablation Family History Other Cancer Hypertension Stroke Substance abuse Social History (Updated 06/26/23 @ 01:24 by Melba Orr RN) Smoking Status: Unknown if ever smoked alcohol intake: current alcohol intake frequency: 3 or more drinks per day substance use type: denies use current occupational status: employed Travel in the last 8 weeks: None household members: significant other housing: house 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 current occupational exposures/hazards: No caffeine: Yes Review of Systems Review of Systems Review of systems:: pertinent systems reviewed and negative unless documented below *Cardiovascular Cardiovascular: Denies chest pain and Reports dyspnea on exertion *Respiratory Respiratory: Reports dyspnea on exertion *Gastrointestinal Gastrointestinal: Denies change in bowel habits, Denies diarrhea and Denies melena *Musculoskeletal Musculoskeletal: Reports arthralgias Exam Data for Last 24 hours Vital signs and Labs for Last 24 Hours: Temp Pulse Resp BP Pulse Ox O2 Del Method 97.8 F 103 H 18 180/94 H 96 Room Air 06/26/23 12:00 06/26/23 12:00 06/26/23 12:00 06/26/23 12:00 06/26/23 12:00 06/26/23 13:00 Laboratory Results - last 24 hr 06/25/23 18:30: WBC 6.7, RBC 3.88 L, Hgb 12.8 L, Hct 40.2 L, MCV 103.7 H, MCH 33.0 H, MCHC 31.8, RDW 16.8, Plt Count 284, MPV 7.7, Neut % (Auto) 66.4, Lymph % (Auto) 22.8, [place] % (Auto) 5.1, Eos % (Auto) 2.7, Baso % (Auto) 3.0 H, Neut # (Auto) 4.4, Lymph # (Auto) 1.5, [place] # (Auto) 0.3, Eos # (Auto) 0.2, Baso # (Auto) 0.2, PT 10.5, INR 0.97, APTT 27.5, Sodium 138, Potassium 4.4, Chloride 102, Carbon Dioxide 25, Anion Gap 15.4 H, BUN 11, Creatinine 0.80, Estimated Creat Clear 138, Estimated GFR 99, Est GFR ( Amer) 120, Glucose 86, Calcium 8.1 L, Total Bilirubin 0.7, AST 81 H, ALT 19, Alkaline Phosphatase 269 H, Total Protein 7.2, Albumin 3.6, Globulin 3.6 H, Albumin/Globulin Ratio 1.0 L, Lipase 284, Plasma/Serum Alcohol 294 H 06/26/23 05:37: WBC 4.7 L D, RBC 3.76 L, Hgb 12.5 L, Hct 39.4 L, MCV 104.9 H, MCH 33.1 H, MCHC 31.6 L, RDW 17.0, Plt Count 260, MPV 7.9, Neut % (Auto) 54.1, Lymph % (Auto) 29.4, [place] % (Auto) 9.8 H, Eos % (Auto) 3.3, Baso % (Auto) 3.3 H, Neut # (Auto) 2.5, Lymph # (Auto) 1.4, [place] # (Auto) 0.5, Eos # (Auto) 0.2, Baso # (Auto) 0.2, Sodium 137, Potassium 3.8, Chloride 104, Carbon Dioxide 25, Anion Gap 11.8, BUN 10, Creatinine 1.00 D, Estimated Creat Clear 111, Estimated GFR 77, Est GFR ( Amer) 93 D, Glucose 64 L D, Calcium 8.0 L, Total Bilirubin 0.8, AST 65 H, ALT 15, Alkaline Phosphatase 270 H, Total Protein 7.1, Albumin 3.5, Globulin 3.6 H, Albumin/Globulin Ratio 1.0 L I & O for Last 24 hours: Intake & Output 06/24/23 06/25/23 06/26/23 06/27/23 11:59 11:59 11:59 11:59 Intake Total 510 / 510 Output Total 400 / 400 0 / 0 Balance 110 / 110 0 / 0 Weight 215 lb 11.2 oz Constitutional Constitutional: no acute distress *Routine Respiratory Exam Respiratory: Present decreased breath sounds; Absent rhonchi, wheezes or crackles *Routine Cardiovascular Exam Cardiovascular: Present RRR and murmur; Absent gallop or rubs *Routine Extremities Exam Extremities: Present edema *Routine Neurological Exam Neurological: Present alert, oriented X3, CN II-XII intact and tremors Meds Home Medications and Allergies Home Medications Medication Instructions Recorded Confirmed Type digoxin 250 mcg (0.25 mg) tablet 250 mcg PO DAILY #30 tabs 03/28/23 06/26/23 Rx sacubitril 24 mg-valsartan 26 mg 1 tab PO BID #60 tabs 03/28/23 06/26/23 Rx tablet (Entresto) spironolactone 25 mg tablet 25 mg PO DAILY #30 tabs 03/28/23 06/26/23 Rx (Aldactone) amiodarone 200 mg tablet 200 mg PO DAILY 06/16/23 06/26/23 History apixaban 5 mg tablet 5 mg PO BID 06/16/23 06/26/23 History empagliflozin 10 mg tablet 10 mg PO DAILY #30 tabs 06/16/23 06/26/23 Rx (Jardiance) metoprolol succinate 50 mg 50 mg PO DAILY #30 tabs 06/16/23 06/26/23 Rx tablet,extended release 24 hr (Toprol XL) sertraline 100 mg tablet 100 mg PO DAILY 06/16/23 06/26/23 History New Prescriptions to Start Prescriptions: Allergies Allergy/AdvReac Type Severity Reaction Status Date / Time hydrochlorothiazide AdvReac Unknown Other Verified 06/19/23 14:21 Assessment and Plan *Assessment and plan (1) Closed fracture of greater trochanter of right femur: Status: Acute Qualifiers: Encounter type: initial encounter Fracture alignment: nondisplaced Qualified Code(s): S72.114A - Nondisplaced fracture of greater trochanter of right femur, initial encounter for closed fracture Category: Medical Code(s): S72.111A - Displaced fracture of greater trochanter of right femur, initial encounter for closed fracture (2) Alcohol intoxication: Status: Acute Qualifiers: Complication of substance-induced condition: uncomplicated Qualified Code(s): F10.920 - Alcohol use, unspecified with intoxication, uncomplicated Category: Medical Code(s): F10.929 - Alcohol use, unspecified with intoxication, unspecified (3) Fall: Status: Acute Qualifiers: Encounter type: initial encounter Qualified Code(s): W19.XXXA - Unspecified fall, initial encounter Category: Medical Code(s): W19.XXXA - Unspecified fall, initial encounter (4) Abnormal electrocardiogram [ECG] [EKG]: Status: Acute Category: Medical Code(s): R94.31 - Abnormal electrocardiogram [ECG] [EKG] (5) Right bundle branch block: Status: Acute Category: Medical Code(s): I45.10 - Unspecified right bundle-branch block (6) Cardiomyopathy: Status: Acute Qualifiers: Cardiomyopathy type: unspecified Qualified Code(s): I42.9 - Cardiomyopathy, unspecified Category: Medical Code(s): I42.9 - Cardiomyopathy, unspecified (7) Tobacco use: Status: Acute Category: Social Hx Code(s): Z72.0 - Tobacco use (8) Paroxysmal atrial fibrillation: Status: Acute Category: Medical Code(s): I48.0 - Paroxysmal atrial fibrillation (9) Alcoholism: Status: Acute Category: Medical Code(s): F10.20 - Alcohol dependence, uncomplicated (10) COPD (chronic obstructive pulmonary disease): Status: Chronic Qualifiers: COPD type: unspecified COPD Qualified Code(s): J44.9 - Chronic obstructive pulmonary disease, unspecified Category: Medical Code(s): J44.9 - Chronic obstructive pulmonary disease, unspecified (11) Pulmonary hypertension: Status: Chronic Category: Medical Code(s): I27.20 - Pulmonary hypertension, unspecified Plan 1. Right trochanter fracture after fall -awaiting MRI 2. Cardiomyopathy with pericardial effusion -restart GMT with metoprolol, entresto, digoxin, jardiance and spironolactone -pericardial effusion slightly worse than in March but without evidence of tamponade. 3. PAF with history of ablation X 2 -resume amiodarone -hold apixaban for surgery 4. COPD -pulmonary treatment per Dr. Parra 5. Alcoholism -DT precautions High risk for operative repair. Very high risk for cardiac issues in light of pericardial effusion and RV enlargement/dysfunction in setting of multiple co-morbidities. Recommend transfer to tertiary facility for higher level of cardiac support if operative option for hip repair is recommended.
[2023-06-26 16:00] VITALS: BP 207/131; PULSE 101; RESP 18; TEMP 36.9; O2SAT 97
[2023-06-26] MEDS: METOPROLOL SUCCINATE XL 50MG TABLET 50 MG PO (16:17)
[2023-06-26] MEDS: SACUBITRIL/VALSARTAN 24-26MG TABLET 1 EACH PO (16:17)
--- NOTE | 2023-06-26 16:27 | P.PN_ITS ---
Subjective *Date: 06/26/23 *Time: 16:45 Interval history: Patient continues to have pain. Current withdrawal scores, CIWAs 4-5. Denies any nausea, chest pain. On room air. Orthopedics and cardiology consulted and assisting with care. Awaiting MRI of right hip. Medical Exam Vital signs and Labs for Last 24 Hours: Vital Signs Temp Pulse Pulse Resp BP BP Pulse Ox 06/26/23 16:00 98.4 F 101 H 18 207/131 H 97 06/26/23 14:59 06/26/23 13:00 06/26/23 12:00 97.8 F 103 H 18 180/94 H 96 06/26/23 11:00 06/26/23 09:00 06/26/23 08:00 98.0 F 107 H 18 148/108 H 92 L 06/26/23 07:00 06/26/23 05:00 06/26/23 03:00 06/26/23 01:00 06/26/23 00:00 97.8 F 102 H 18 157/109 H 91 L 06/25/23 23:00 06/25/23 22:55 98.0 F 102 H 18 157/113 H 90 L 06/25/23 21:00 06/25/23 20:45 98.7 F 104 H 20 146/108 H 06/25/23 20:30 103 H 146/108 H 96 06/25/23 16:30 94 H 156/109 H 96 O2 Del Method 06/26/23 16:00 Room Air 06/26/23 14:59 Room Air 06/26/23 13:00 Room Air 06/26/23 12:00 Room Air 06/26/23 11:00 Room Air 06/26/23 09:00 Room Air 06/26/23 08:00 Room Air 06/26/23 07:00 Room Air 06/26/23 05:00 Room Air 06/26/23 03:00 Room Air 06/26/23 01:00 Room Air 06/26/23 00:00 Room Air 06/25/23 23:00 Room Air 06/25/23 22:55 Room Air 06/25/23 21:00 Room Air 06/25/23 20:45 Room Air 06/25/23 20:30 06/25/23 16:30 Room Air Intake and Output 06/26/23 06/26/23 06/26/23 07:59 15:59 23:59 Intake Total 240 / 1050 810 / 1050 Output Total 400 / 400 0 / 400 0 / 400 Balance -160 / 650 810 / 650 0 / 650 Intake: Intake, Oral Amount 240 / 1050 810 / 1050 Output: Output, Urine Amount 400 / 400 0 / 400 0 / 400 Other: Number of Unmeasured Voids 1 2 Weight 97.84 kg Patient Weight 06/26/23 23:59 Weight 97.84 kg Laboratory Results - last 24 hr 06/25/23 18:30: WBC 6.7, RBC 3.88 L, Hgb 12.8 L, Hct 40.2 L, MCV 103.7 H, MCH 33.0 H, MCHC 31.8, RDW 16.8, Plt Count 284, MPV 7.7, Neut % (Auto) 66.4, Lymph % (Auto) 22.8, [place] % (Auto) 5.1, Eos % (Auto) 2.7, Baso % (Auto) 3.0 H, Neut # (Auto) 4.4, Lymph # (Auto) 1.5, [place] # (Auto) 0.3, Eos # (Auto) 0.2, Baso # (Auto) 0.2, PT 10.5, INR 0.97, APTT 27.5, Sodium 138, Potassium 4.4, Chloride 102, Carbon Dioxide 25, Anion Gap 15.4 H, BUN 11, Creatinine 0.80, Estimated Creat Clear 138, Estimated GFR 99, Est GFR ( Amer) 120, Glucose 86, Calcium 8.1 L, Total Bilirubin 0.7, AST 81 H, ALT 19, Alkaline Phosphatase 269 H , Total Protein 7.2, Albumin 3.6, Globulin 3.6 H, Albumin/Globulin Ratio 1.0 L, Lipase 284, Plasma/Serum Alcohol 294 H 06/26/23 05:37: WBC 4.7 L D, RBC 3.76 L, Hgb 12.5 L, Hct 39.4 L, MCV 104.9 H, MCH 33.1 H, MCHC 31.6 L, RDW 17.0, Plt Count 260, MPV 7.9, Neut % (Auto) 54.1, Lymph % (Auto) 29.4, [place] % (Auto) 9.8 H, Eos % (Auto) 3.3, Baso % (Auto) 3.3 H, Neut # (Auto) 2.5, Lymph # (Auto) 1.4, [place] # (Auto) 0.5, Eos # (Auto) 0.2, Baso # (Auto) 0.2, Sodium 137, Potassium 3.8, Chloride 104, Carbon Dioxide 25, Anion Gap 11.8, BUN 10, Creatinine 1.00 D, Estimated Creat Clear 111, Estimated GFR 77, Est GFR ( Amer) 93 D, Glucose 64 L D, Calcium 8.0 L, Total Bilirubin 0.8, AST 65 H, ALT 15, Alkaline Phosphatase 270 H, Total Protein 7.1, Albumin 3.5, Globulin 3.6 H, Albumin/Globulin Ratio 1.0 L I & O for Labs for Last 24 Hours: Intake & Output 06/23/23 06/24/23 06/25/23 06/26/23 23:59 23:59 23:59 23:59 Intake Total 1050 / 1050 Output Total 400 / 400 Balance 650 / 650 Weight 96.615 kg 97.84 kg Constitutional: Present mild distress, obese, chronically ill appearing and cooperative Head: Present atraumatic and normocephalic ENT: Present normal exam Neck: Present normal inspection Respiratory: Present prolonged expiratory phase; Absent rhonchi, wheezes or crackles Cardiac: Present Regular Rhythm and Tachycardia GI: Present soft and normal bowel sounds; Absent distention or tenderness Rectal (male): Present deferred Extremities: Present normal inspection and tenderness (Over right hip) Skin: Present intact; Absent erythema Neuro: Present Grossly Intact, alert, awake and moves all extremities Comment:: Tremor Assessment and Plan *Assessment and plan (1) Closed fracture of greater trochanter of right femur: Status: Acute Qualifiers: Encounter type: initial encounter Fracture alignment: nondisplaced Qualified Code(s): S72.114A - Nondisplaced fracture of greater trochanter of ri ght femur, initial encounter for closed fracture Category: Medical Code(s): S72.111A - Displaced fracture of greater trochanter of right femur, initial encounter for closed fracture (2) Alcohol intoxication: Status: Acute Qualifiers: Complication of substance-induced condition: uncomplicated Qualified Code(s): F10.920 - Alcohol use, unspecified with intoxication, uncomplicated Category: Medical Code(s): F10.929 - Alcohol use, unspecified with intoxication, unspecified (3) Fall: Status: Acute Qualifiers: Encounter type: initial encounter Qualified Code(s): W19.XXXA - Unspecified fall, initial encounter Category: Medical Code(s): W19.XXXA - Unspecified fall, initial encounter (4) Cardiomyopathy: Status: Acute Qualifiers: Cardiomyopathy type: unspecified Qualified Code(s): I42.9 - Cardiomyopathy, unspecified Category: Medical Code(s): I42.9 - Cardiomyopathy, unspecified (5) CHF (congestive heart failure): Status: Chronic Qualifiers: Heart failure chronicity: unspecified Heart failure type: unspecified Qualified Code(s): I50.9 - Heart failure, unspecified Category: Medical Code(s): I50.9 - Heart failure, unspecified (6) Hypertension: Status: Chronic Qualifiers: Hypertension type: unspecified Qualified Code(s): I10 - Essential (primary) hypertension Category: Medical Code(s): I10 - Essential (primary) hypertension (7) COPD (chronic obstructive pulmonary disease): Status: Chronic Qualifiers: COPD type: unspecified COPD Qualified Code(s): J44.9 - Chronic obstructive pulmonary disease, unspecified Category: Medical Code(s): J44.9 - Chronic obstructive pulmonary disease, unspecified (8) GERD (gastroesophageal reflux disease): Status: Acute Qualifiers: Esophagitis presence: esophagitis presence not specified Qualified Code(s): K21.9 - Gastro-esophageal reflux disease without esophagitis Category: Medical Code(s): K21.9 - Gastro-esophageal reflux disease without esophagitis (9) Anxiety: Status: Acute Category: Medical Code(s): F41.9 - Anxiety disorder, unspecified (10) Tobacco use: Status: Acute Category: Social Hx Code(s): Z72.0 - Tobacco use (11) Paroxysmal atrial fibrillation: Status: Acute Category: Medical Code(s): I48.0 - Paroxysmal atrial fibrillation (12) Alcoholism: Status: Acute Category: Medical Code(s): F10.20 - Alcohol dependence, uncomplicated (13) Hypothyroidism: Status: Chronic Category: Medical Code(s): E03.9 - Hypothyroidism, unspecified Plan 58yo male with PMHx of COPD, HTN, cardiomyopathy, CHF, GRD, alcohol abuse medical non compliance brought in by EMS after fall at home. patient is currently alcohol intoxicated. Workup are significant for nonactionable CBC. Coags negative. Chemistry nonactionable. Ethanol level 294. Patient's CT trauma scans with incidentally found renal lesion as well as pericardial effusion. CT of the pelvis concerning for trochanteric fracture. MRI obtained showing fracture through femur. Needs surgical management. Orthopedics and cardiology consulted and assisting with care. Necessitates transfer to higher level of care for medical management. Continues to require inpatient management. Problems addressed as follows: Intertrochanteric fracture of right hip secondary to fall - Orthopedics consulted. Patient will need operative management. MRI obtained, shows nondisplaced intertrochanteric fracture necessitating surgical intervention. - Cardiology consulted for preoperative optimization and clearance. Given patient's high risk, recommend transfer to tertiary center for further management. - tylenol 1000mg q6h; Continue Toradol 30 mg every 6 hours as needed for pain control along with morphine 4 mg as needed every 4 hours, monitor for toxicity -Contacted , patient has been accepted but on wait list. Re[facility] out to [facility]. Awaiting callback. Will continue to attempt transfer to tertiary center for further management. Alcohol withdrawal Alcoholism -Continue CIWA protocol, scores 4-5. Continue Valium per protocol. -Multivitamin with rally pack daily, B1 and folate -No desire to quit at this time. Cardiomyopathy with pericardial effusion Hypertension -restart GMT with metoprolol, entresto, digoxin, jardiance and spironolactone -pericardial effusion slightly worse than in March but without evidence of tamponade. -Repeat echo obtained, EF approximately 30%. PAF with history of ablation X 2 -resume amiodarone -hold apixaban for surgery COPD -Stable on room air. DuoNebs as needed every 6 hours Anxiety: Continue Zoloft 100 mg daily for anxiety tobacco use disorder: Nicotine patch daily patient on home eliquis, holding in the perioperative setting On protonix for GERD Full code
[2023-06-26 17:40] VITALS: BP 170/124
--- NOTE | 2023-06-26 18:02 | PC.NURSE ---
Pt is alert and oriented x4. Ciwa's have been 4 at checks. PRN pain meds administered per mar for pain control with patient reporting relief on reassessment. He's used the urinal independently. Lac to rt elbow and side of knee. Right hand with +2/+3 edema. He is currently resting in bed w/his eyes closed. Bed is locked and in the lowest position, call light is within reach.
--- NOTE | 2023-06-26 18:40 | PC.NURSE ---
Report called to [facility]
[2023-06-26 20:00] VITALS: BP 169/112; PULSE 92; RESP 16; TEMP 36.7; O2SAT 96
[2023-06-26] MEDS: PANTOPRAZOLE 40MG TABLET 40 MG PO (20:07)
--- NOTE | 2023-06-26 20:15 | PC.NURSE ---
this nurse found a pop can with what appears to be ashes and cigarettes, pt. denies smoking in room, reminded pt of the smoking policy at this hospital, pt. verbalized understanding
--- NOTE | 2023-06-26 20:37 | EXP.DC.SUM ---
General Admission date:: 06/25/23 Discharge date: 06/26/23 HPI HPI HPI: This is a 58yo male with PMHx of COPD, HTN, cardiomyopathy, CHF, GRD, alcohol abuse medical non compliance brought in by EMS after fall at home. patient was alcohol intoxicated. Was trying to let the dog out, dog pulled him off the porch and he fell a couple of feet onto a dirt slope. Tumbled down the slope. Landed primarily on his right elbow, right wrist, right knee. Having significant tenderness right upper and right lower extremities, so called EMS. on arrival was c/o pain on his right hip. Pain is moderate in intensity and does not radiate while at rest, severe when trying to range his right hip. No bowel or bladder dysfunction, back pain, neck pain, chest pain, shortness of breath, nausea or vomiting, or any other concerns. admitted for treatment and management. Hospital Course Hospital Course Hospital Course: 58yo male with PMHx of COPD, HTN, cardiomyopathy, CHF, GRD, alcohol abuse medical non compliance brought in by EMS after fall at home. patient is currently alcohol intoxicated. Workup are significant for nonactionable CBC. Coags negative. Chemistry nonactionable. Ethanol level 294. Patient's CT trauma scans with incidentally found renal lesion as well as pericardial effusion. CT of the pelvis concerning for trochanteric fracture. MRI obtained showing fracture through femur. Needs surgical management. Orthopedics and cardiology consulted and assisting with care. Necessitates transfer to higher level of care for medical management. Graciously excepted by [facility] for further management. Problems addressed as follows: Intertrochanteric fracture of right hip secondary to fall - Orthopedics consulted. Patient will need operative management. MRI obtained, shows nondisplaced intertrochanteric fracture necessitating surgical intervention. Cardiology consulted for preoperative optimization and clearance. Given patient's high risk, recommend transfer to tertiary center for further management. tylenol 1000mg q6h; Continue Toradol 30 mg every 6 hours as needed for pain control along with morphine 4 mg as needed every 4 hours, monitor for toxicity. Contacted , patient on wait list. Reach out to [facility], they were able to accept patient for transfer and further management. Appreciate their assistance in care. Imaging power shared from our radiology department. Alcohol withdrawal Alcoholism -Initiated on CIWA protocol. Scores have been 4-5 during admission. Treated with Valium protocol. Initiated on multivitamins with rally pack, B1, folate. Patient has not expressed desire to quit drinking at this time. Cardiomyopathy with pericardial effusion Hypertension -Cardiology consulted. Recent echo showing EF approximately 30% from March. Repeat echo obtained this admission that preliminary shows persistent ejection fraction. Resume goal-directed therapy with metoprolol, Entresto, digoxin, Jardiance, spironolactone, amiodarone. Remained hypertensive during admission secondary to multiple factors including pain, alcohol withdrawal, heart failure, essential hypertension. PAF with history of ablation X 2 -resume amiodarone -hold apixaban for surgery. Last taken 06/24. COPD: Stable on room air. DuoNebs as needed every 6 hours Anxiety: Continue Zoloft 100 mg daily for anxiety tobacco use disorder: Nicotine patch daily Stable to discharge to higher level of care for further management. Exam Data for Last 24 hours Vital signs and Labs for Last 24 Hours: Temp Pulse Resp BP Pulse Ox O2 Del Method 98.1 F 92 H 16 169/112 H 96 Room Air 06/26/23 20:00 06/26/23 20:00 06/26/23 20:00 06/26/23 20:00 06/26/23 20:00 06/26/23 20:00 Laboratory Results - last 24 hr 06/26/23 05:37: WBC 4.7 L D, RBC 3.76 L, Hgb 12.5 L, Hct 39.4 L, MCV 104.9 H, MCH 33.1 H, MCHC 31.6 L, RDW 17.0, Plt Count 260, MPV 7.9, Neut % (Auto) 54.1, Lymph % (Auto) 29.4, [place] % (Auto) 9.8 H, Eos % (Auto) 3.3, Baso % (Auto) 3.3 H, Neut # (Auto) 2.5, Lymph # (Auto) 1.4, [place] # (Auto) 0.5, Eos # (Auto) 0.2, Baso # (Auto) 0.2, Sodium 137, Potassium 3.8, Chloride 104, Carbon Dioxide 25, Anion Gap 11.8, BUN 10, Creatinine 1.00 D, Estimated Creat Clear 111, Estimated GFR 77, Est GFR ( Amer) 93 D, Glucose 64 L D, Calcium 8.0 L, Total Bilirubin 0.8, AST 65 H, ALT 15, Alkaline Phosphatase 270 H, Total Protein 7.1, Albumin 3.5, Globulin 3.6 H, Albumin/Globulin Ratio 1.0 L I & O for Last 24 hours: Intake & Output 06/23/23 06/24/23 06/25/23 06/26/23 23:59 23:59 23:59 23:59 Intake Total 2189 / 2189 Output Total 400 / 400 Balance 1789 / 1789 Weight 96.615 kg 97.84 kg Constitutional Constitutional: mild distress, obese, chronically ill appearing and disheveled *Routine HEENT Exam Head: Present normocephalic Eye: Present EOMI and PERRL ENT: Present mucous membranes moist *Routine Neck Exam Neck: Present supple; Absent lymphadenopathy *Routine Respiratory Exam Respiratory: Present prolonged expiratory phase, rhonchi and normal respiratory effort; Absent wheezes or crackles *Routine Cardiovascular Exam Cardiovascular: Present Normal S1, Normal S2 and tachycardia *Routine Abdominal Exam Abdominal: Present soft and normoactive bowel sounds; Absent tenderness *Routine Rectal Exam Patient deferred: visual exam *Routine Exam Patient deferred: penile exam *Routine Extremities Exam Extremities: Present edema; Absent cyanosis or clubbing Comments: Right hip pain with palpation, right hand swelling *Routine Skin Exam Skin: Present intact and warm; Absent rash Comments: Numerous tattoos *Routine Neurological Exam Neurological: Present alert, oriented X3, moving all extremities and tremors; Absent altered mental status Results Data Completed and Pending Labs on day of discharge: Labs from last 24 hours 06/26/23 05:37 WBC 4.7 L D RBC 3.76 L Hgb 12.5 L Hct 39.4 L MCV 104.9 H MCH 33.1 H MCHC 31.6 L RDW 17.0 Plt Count 260 MPV 7.9 Neut % (Auto) 54.1 Lymph % (Auto) 29.4 [place] % (Auto) 9.8 H Eos % (Auto) 3.3 Baso % (Auto) 3.3 H Neut # (Auto) 2.5 Lymph # (Auto) 1.4 [place] # (Auto) 0.5 Eos # (Auto) 0.2 Baso # (Auto) 0.2 Sodium 137 Potassium 3.8 Chloride 104 Carbon Dioxide 25 Anion Gap 11.8 BUN 10 Creatinine 1.00 D Estimated Creat Clear 111 Estimated GFR 77 Est GFR ( Amer) 93 D Glucose 64 L D Calcium 8.0 L Total Bilirubin 0.8 AST 65 H ALT 15 Alkaline Phosphatase 270 H Total Protein 7.1 Albumin 3.5 Globulin 3.6 H Albumin/Globulin Ratio 1.0 L DS: Diagnosis Discharge Diagnosis (1) Closed fracture of greater trochanter of right femur: Status: Acute Code(s): S72.111A - Displaced fracture of greater trochanter of right femur, initial encounter for closed fracture Qualifiers: Encounter type: initial encounter Fracture alignment: nondisplaced Qualified Code(s): S72.114A - Nondisplaced fracture of greater trochanter of right femur, initial encounter for closed fracture (2) Alcohol intoxication: Status: Acute Code(s): F10.929 - Alcohol use, unspecified with intoxication, unspecified Qualifiers: Complication of substance-induced condition: uncomplicated Qualified Code(s): F10.920 - Alcohol use, unspecified with intoxication, uncomplicated (3) Fall: Status: Acute Code(s): W19.XXXA - Unspecified fall, initial encounter Qualifiers: Encounter type: initial encounter Qualified Code(s): W19.XXXA - Unspecified fall, initial encounter (4) Cardiomyopathy: Status: Acute Code(s): I42.9 - Cardiomyopathy, unspecified Qualifiers: Cardiomyopathy type: unspecified Qualified Code(s): I42.9 - Cardiomyopathy, unspecified (5) CHF (congestive heart failure): Status: Chronic Code(s): I50.9 - Heart failure, unspecified Qualifiers: Heart failure type: unspecified Heart failure chronicity: unspecified Qualified Code(s): I50.9 - Heart failure, unspecified (6) Hypertension: Status: Chronic Code(s): I10 - Essential (primary) hypertension Qualifiers: Hypertension type: unspecified Qualified Code(s): I10 - Essential (primary) hypertension (7) COPD (chronic obstructive pulmonary disease): Status: Chronic Code(s): J44.9 - Chronic obstructive pulmonary disease, unspecified Qualifiers: COPD type: unspecified COPD Qualified Code(s): J44.9 - Chronic obstructive pulmonary disease, unspecified (8) GERD (gastroesophageal reflux disease): Status: Acute Code(s): K21.9 - Gastro-esophageal reflux disease without esophagitis Qualifiers: Esophagitis presence: esophagitis presence not specified Qualified Code(s): K21.9 - Gastro-esophageal reflux disease without esophagitis (9) Anxiety: Status: Acute Code(s): F41.9 - Anxiety disorder, unspecified (10) Tobacco use: Status: Acute Code(s): Z72.0 - Tobacco use (11) Paroxysmal atrial fibrillation: Status: Acute Code(s): I48.0 - Paroxysmal atrial fibrillation (12) Alcoholism: Status: Acute Code(s): F10.20 - Alcohol dependence, uncomplicated (13) Hypothyroidism: Status: Chronic Code(s): E03.9 - Hypothyroidism, unspecified Meds Home Medications and Allergies Home Medications Medication Instructions Recorded Confirmed Type digoxin 250 mcg (0.25 mg) tablet 250 mcg PO DAILY #30 tabs 03/28/23 06/26/23 Rx sacubitril 24 mg-valsartan 26 mg 1 tab PO BID #60 tabs 03/28/23 06/26/23 Rx tablet (Entresto) spironolactone 25 mg tablet 25 mg PO DAILY #30 tabs 03/28/23 06/26/23 Rx (Aldactone) amiodarone 200 mg tablet 200 mg PO DAILY 06/16/23 06/26/23 History apixaban 5 mg tablet 5 mg PO BID 06/16/23 06/26/23 History empagliflozin 10 mg tablet 10 mg PO DAILY #30 tabs 06/16/23 06/26/23 Rx (Jardiance) metoprolol succinate 50 mg 50 mg PO DAILY #30 tabs 06/16/23 06/26/23 Rx tablet,extended release 24 hr (Toprol XL) sertraline 100 mg tablet 100 mg PO DAILY 06/16/23 06/26/23 History New Prescriptions to Start Prescriptions: Allergies Allergy/AdvReac Type Severity Reaction Status Date / Time hydrochlorothiazide AdvReac Unknown Other Verified 06/19/23 14:21 Discharge Plan Disposition Patient Disposition: Xfer Short-Term Hosp Condition: Fair Discharge Order Discharge Orders: Discharge Order (Routine); Ordered 06/26/23 Ordered By: Jeffrey Kramer Follow up Plan Prescriptions/Medication Reconciliation: Continued sertraline 100 mg tablet 100 mg PO DAILY metoprolol succinate [Toprol XL] 50 mg tablet extended release 24 hr 50 mg PO DAILY Qty: 30 2RF Jardiance 10 mg tablet 10 mg PO DAILY Qty: 30 5RF amiodarone 200 mg tablet 200 mg PO DAILY spironolactone [Aldactone] 25 mg tablet 25 mg PO DAILY Qty: 30 0RF Entresto 24-26 mg tablet 1 tab PO BID Qty: 60 0RF digoxin 250 mcg (0.25 mg) tablet 250 mcg PO DAILY Qty: 30 0RF apixaban 5 mg tablet 5 mg PO BID Problem Reconciliation Problems Reviewed?: Yes Patient Discharge Instructions ACTIVITY: Bed rest DIET: continue same diet Stand Alone Forms: Transfer Record Patient Instructions: DI for Femoral Fracture, DI for Drug or Alcohol Withdrawal Providers Primary Care Provider: Provider,Referral Admit Provider: Richie Parra Attending Provider: Richie Parra
[2023-06-26] MEDS: OXYCODONE 5MG W/APAP 325MG TABLET 1 EACH PO (20:55)
--- NOTE | 2023-06-26 21:23 | PC.NURSE ---
Patient left facility with EMS at 21:10.
== END 2023-06-26 21:10 | disposition short-term general hospital (02) | DRG 536 ==
LOC: ER 20:03 → 2ND 20:17
PROVIDERS: Nurse Practitioner Family; Admitting Provider Internal Medicine Adolescent Medicine; Emergency Provider Emergency Medicine; Visit Provider Internal Medicine Adolescent Medicine
DX: S72.114A Nondisplaced fracture of greater trochanter of right femur, initial encounter for closed fracture (principal); I42.9 Cardiomyopathy, unspecified; I50.32 Chronic diastolic (congestive) heart failure; F10.239 Alcohol dependence with withdrawal, unspecified; W19.XXXA Unspecified fall, initial encounter; J44.9 Chronic obstructive pulmonary disease, unspecified; K21.9 Gastro-esophageal reflux disease without esophagitis; F41.9 Anxiety disorder, unspecified; Z72.0 Tobacco use; I48.0 Paroxysmal atrial fibrillation; E03.9 Hypothyroidism, unspecified; I45.10 Unspecified right bundle-branch block; I27.20 Pulmonary hypertension, unspecified; I11.0 Hypertensive heart disease with heart failure; Z91.199 Patient's noncompliance with other medical treatment and regimen due to unspecified reason; F10.229 Alcohol dependence with intoxication, unspecified
CPT/HCPCS: 36415; 70450; 70496; 70498; 71275; 72125; 72128; 72131; 72192; 73060; 73080; 73090; 73110; 73130; 73502; 73552; 73562; 73590; 73610; 73630; 73721; 74174; 80053; 83690; 85025; 85610; 85730; 93306; 99285; J2405; Q9967

== ENCOUNTER 2023-07-16 14:06 | Outpatient (CLI) | payer MEDICAID, SELFPAY ==
--- OUTSIDE RECORDS SUMMARY | 2023-07-16 14:08 | XMS_ITS ---
Author Name Unknown Address [address] [place] [address] Phone Organization [facility] Address [address] [place] [address] Phone Care Team Providers Care Hopper Attendant Name Role Phone Robbin VELAZCO, Charli Vale Primary Care Provider [phone] Problems Includes: Active, inactive, and resolved Problems All Visits Onset Date Resolved Date Provider Condition S tatus Joint Pain in the Right Hip 07/14/2023 Maddy Malone PA-C Active Last Documented On 4 3:08PM ; [facility], [facility] Plan of Treatment Future Appointments Date Time Location Provi giorgio Follow Up 10/14/2023 1:15PM [facility] Last Documented On 4 3:26PM ; [facility] Instructions to patient Lose weight Last Documented On 4 3:12PM ; [facility], [facility] Assessments Includes: Assessments for all patient encounters Findings Encounter Date Overweight Post Op with Maddy Malone PA-C 07/14/2023 Last Documented On 4 3:35PM ; [facility], [facility] Instructions Includes: Instructions for all patient encounters Instructions to patient Lose weight Last Documented On 4 3:12PM ; [facility], [facility] Medical Equipment - Implanted Devices Includes: Current and historical Devices No Medical Equipment Recorded Medications Includes: Current and historical Medications Current Medications (continue as prescribed) HYDROcodone-Acetaminophen 5- 325 MG Oral Tablet 07/14/2023 - 07/21/2023 Provider: Lamin Dixon MD Diagnosis: three times a day Last Documented On 4 3:59PM By Lamin Dixon ; [facility], [facility] Eliquis 5 MG Oral Tablet 07/08/2023 Provider: Diagnosis: Last Documented On 4 3:08PM By Kaitlin Christensen ; [facility] Folic Acid 1 MG Oral Tablet 07/08/2023 Provider: Diagnosis: Last Documented On 4 3:08PM By Kaitlin Christensen ; [facility] Levothyroxine Sodium 75 MCG Oral Tablet 07/08/2023 P rovider: Diagnosis: Last Documented On 4 3:08PM By Kaitlin Christensen ; [facility] Methocarbamol 500 MG Oral Tablet 07/08/2023 Provider : Diagnosis: Last Documented On 4 3:08PM By Kaitlin Christensen ; [facility], [facility] oxyCODONE HCl 5 MG Oral Tablet 07/08/2023 Provider: Diagnosis: Last Documented On 4 3:08PM By Kaitlin Christensen ; [facility], [facility] Thiamine HCl 100 MG Oral Tablet 07/08/2023 Provider: Diagnosis: Last Documented On 4 3:08PM By Kaitlin Christensen ; [facility] Bumetanide 1 MG Oral Tablet 07/08/2023 Provider: Diagnosis: Last Documented On 4 3:08PM By Kaitlin Christensen ; [facility], [facility] Jardiance 10 MG Oral Tablet 06/24/2023 Provider: Diagnosis: Last Documented On 4 3:08PM By Kaitlin Christensen ; [facility] Amiodarone HCl 200 MG Oral Tablet 06/17/2023 Provide r: ERASMO MURRAY Diagnosis: Last Documented On 4 3:08PM By Kaitlin Christensen ; [facility] Digoxin 250 MCG Oral Tablet 06/17/2023 Provider: ERASMO MURRAY Diagnosis: Last Documented On 4 3:08PM By Kaitlin Christensen ; [facility] Entresto 24-26 MG Oral Tablet 06/17/2023 Provider: ERASMO MURRAY Diagnosis: Last Documented On 4 3:08PM By Kaitlin Christensen ; [facility] Spironolactone 25 MG Oral Tablet 06/17/2023 Provider : JAIME MCKINNEY MD Diagnosis: Last Documented On 4 3:08PM By Kaitlin Christensen ; [facility] Metoprolol Succinate ER 50 M G Oral Tablet Extended Release 24 Hour 06/16/2023 Provider: Diagnosis: Last Documented On 4 3:08PM By Kaitlin Christensen ; [facility] Medications Administered Includes: Administered Medications in patient's chart No Administered Medications Recorded Vital Signs Includes: Vital Signs from 07/15/2022 through 07/16/2023 Vital Name 07/14/2023 03:09P Height (in) 72 Weight (lb) 210 Body Mass Index 28.5 Body Surface Area 2.2 Note: hdv Last Documented: On 07/14/2023 3:33PM ; [facility] Results Includes: Results from 07/15/2022 through 07/16/2023 No Results Recorded For Specified Dates History of Present Illness History of Present Illness not supported for this document type No History of Present Illness Recorded Social History No Social History Recorded - Smoking Status Unknown Procedures and Surgical History Includes: Procedures from 07/15/2022 through 07/16/2023 Procedures Code Diagnosis Performing Provider Service Location Service Date PELVIS w/ 2-3 VIEW HIP (RIGHT) 34929 Displaced intertrochanteric fracture of right femur, init Maddy Malone PA-C [facility] B 07/14/2023 Last Documented On 4 1:48PM ; [facility] TREAT THIGH FRACTURE (RIGHT) 09820 Displaced intertrochanteric fracture of right femur, init Lamin Dixon MD [facility] 06/07/2023 Last Documented On 4 12:30PM ; [facility] Medical History Includes: Medical History in patient's chart No Medical History Recorded Family History Includes: Family History in patient's chart No Family History Recorded Review of Systems Review of Systems not supported for this document type No Review of Systems Recorded Mental Status Description No anxiety Functional Status No Functional Status Recorded Physical Exam Physical Exam not supported for this document type No Physical Exam Recorded Allergies Includes: Active, inactive, and resolved Allergies No Known Allergies Encounters Includes: Encounters from 07/15/2022 through 07/16/2023 Encounter Provider Location Date Check-In Time Check-Out Time Diagnosis Post Op Maddy Malone PA-C [facility] 07/14/19 24 2:10PM 3:16PM Overweight Consult Lamin Dixon MD [facility] 06/27/19 24 09/15/2009 12:22PM 09/15/2009 11:59PM [facility] Lamin Dixon MD [facility] 06/07/19 24 09/15/2009 12:27PM 09/15/2009 11:59PM Insurance Includes: Active Insurance Policies Plan Name Member ID Group # Subscriber Relationship Effect laura Dates 1 - [facility] [id number] Alonso Palma Clinical Notes Includes: Signed Clinical Notes starting from 02/14/2022 No Clinical Notes Recorded
--- OUTSIDE RECORDS SUMMARY | 2023-07-16 14:09 | XMS_ITS | Clinical Summary ---
Author Name Unknown Address [address] [place] [place] [address] Phone Organization [facility] Address [address] [place] [place] [address] Phone Care Team Providers Care Invisible Braces Orthodontist Name Role Phone Robbin VELAZCO, Charli Vale Primary Care Provider [phone] Reason for Visit and Chief Complaint The Chief Complaint is: Right hip pain Problems Includes: Problems addressed during this encounter and other active Problems Current Visit Onset Date Resolved Date Provider José gil Status Joint Pain in the Right Hip 07/14/2023 Maddy Malone PA-C Active Last Documented On 4 3:08PM ; [facility] Plan of Treatment Future Appointments Date Time Location Provi giorgio Follow Up 10/14/2023 1:15PM [facility] OLMOS-C Last Documented On 4 3:26PM ; [facility] Instructions to patient Lose weight Last Documented On 4 3:12PM ; [facility] Assessments Includes: Assessments from this encounter Findings - Overweight - Last Documented On 07/14/2023 3:35PM ; [facility] Instructions Includes: Instructions from this encounter Instructions to patient Lose weight Last Documented On 4 3:12PM ; [facility] Medical Equipment - Implanted Devices Includes: Current Devices No Medical Equipment Recorded Medications Includes: Medications discussed during this encounter and other current Medications New / Renewed during this visit Lamin Dixon MD on 07/14/2023 HYDROcodone-Acetaminophen 5- 325 MG Oral Tablet Provider: Lamin Dixon MD 7 day supply: 21 tablet, 0 refills Diagnosis: three times a day Pharmacy: [facility] [place] [address] [address], [phone] - Last Documented On 4 3:59PM By Lamin Dixon ; [facility] Current Medications (continue as prescribed) Eliquis 5 MG Oral Tablet 07/08/2023 Provider: Diagnosis: Last Documented On 4 3:08PM By Kaitlin Christensen ; [facility] Folic Acid 1 MG Oral Tablet 07/08/2023 Provider: Diagnosis: Last Documented On 4 3:08PM By Kaitlin Christensen ; [facility] Levothyroxine Sodium 75 MCG Oral Tablet 07/08/2023 P kelsider: Diagnosis: Last Documented On 4 3:08PM By Kaitlin Christensen ; [facility] Methocarbamol 500 MG Oral Tablet 07/08/2023 Provider : Diagnosis: Last Documented On 4 3:08PM By Kaitlin Christensen ; [facility] oxyCODONE HCl 5 MG Oral Tablet 07/08/2023 Provider: Diagnosis: Last Documented On 4 3:08PM By Kaitlin Christensen ; [facility] Thiamine HCl 100 MG Oral Tablet 07/08/2023 Provider: Diagnosis: Last Documented On 4 3:08PM By Kaitlin Christensen ; [facility] Bumetanide 1 MG Oral Tablet 07/08/2023 Provider: Diagnosis: Last Documented On 4 3:08PM By Kaitlin Christensen ; [facility] Jardiance 10 MG Oral Tablet 06/24/2023 Provider: Diagnosis: Last Documented On 4 3:08PM By Kaitlin Christensen ; [facility] Amiodarone HCl 200 MG Oral Tablet 06/17/2023 Provide r: ERASMO MURRAY Diagnosis: Last Documented On 4 3:08PM By Kaitlin Christensen ; [facility] Digoxin 250 MCG Oral Tablet 06/17/2023 Provider: ERASMO MURRAY Diagnosis: Last Documented On 4 3:08PM By Kaitlin Christensen ; [facility] Entresto 24-26 MG Oral Tablet 06/17/2023 Provider: ERASMO MURRAY Diagnosis: Last Documented On 4 3:08PM By Kaitlin Chirstensen ; [facility] Spironolactone 25 MG Oral Tablet 06/17/2023 Provider : JAIME MCKINNEY MD Diagnosis: Last Documented On 4 3:08PM By Kaitlin Christensen ; [facility] Metoprolol Succinate ER 50 M G Oral Tablet Extended Release 24 Hour 06/16/2023 Provider: Diagnosis: Last Documented On 4 3:08PM By Kaitlin Christensen ; [facility] Medications Administered Includes: Administered Medications from this encounter No Administered Medications Recorded Vital Signs Includes: Vital Signs from this encounter Vital Name 07/14/2023 03:09P Height (in) 72 Weight (lb) 210 Body Mass Index 28.5 Body Surface Area 2.2 Note: hdv Last Documented: On 07/14/2023 3:33PM ; [facility] Results Includes: Results discussed during this encounter No Results Recorded For Specified Dates History of Present Illness Includes: History of Present Illness from this encounter BERRY Richardson is a 58 year old male. - Allergy list reviewed - Problem list reviewed - Medication list reviewed - Previous history of new onset pain 07/02/2023 after a fall - Pain is occasional (25% of the time) - Pain is throbbing - Patient pain level from 1-10: 8 Pain is better at rest. Pain is worse with walking and mvoement - Yes, previous treatment. - - Review of medications documented Social History Description Last Updated Alcohol use 07/14/2023 Last Documented On 4 3:34PM ; [facility] Caffeine use 07/14/2023 Last Documented On 4 3:34PM ; [facility] No recent change in diet 07/14/2023 Last Documented On 4 3:34PM ; [facility] Not exercising regularly 07/14/2023 Last Documented On 4 3:34PM ; [facility] Not using drugs 07/14/2023 Last Documented On 4 3:34PM ; [facility] Yes, current smoker. 07/14/2023 Last Documented On 4 3:34PM ; [facility] Smoking Status Unknown Procedures and Surgical History Includes: Procedures from this encounter Procedures Code Diagnosis Performing Provider Service Location Service Date PELVIS w/ 2-3 VIEW HIP (RIGHT) 05812 Displaced intertrochanteric fracture of right femur, init Maddy Malone PA-C [facility] B 07/14/2023 Last Documented On 4 1:48PM ; [facility] an X-ray was performed 14279 Last Documented On 4 3:34PM ; [facility] Surgical History Last Updated History of back surgery 07/14/2023 Last Documented On 4 3:34PM ; [facility] History of Previous Fractures 07/14/2023 Last Documented On 4 3:34PM ; [facility] Medical History Includes: Medical History addressed during this encounter Description Last Updated History of Fractures 07/14/2023 Last Documented On 4 3:34PM ; [facility] History of Hypertension 07/14/2023 Last Documented On 4 3:34PM ; [facility] History of Irregular Heartbeat 4 Last Documented On 4 3:34PM ; [facility] Family History Includes: Family History addressed during this encounter Description Last Updated No significant family history 07/14/2023 Last Documented On 4 3:34PM ; [facility] Review of Systems Includes: Review of Systems from this encounter Systemic: Not feeling tired, no recent weight loss, and no recent weight gain. Head: No headache and no sinus pain. Eyes: No vision problems and no Cataracts. Glasses/Contacts. No Glaucoma. Otolaryngeal: No hearing loss and no tinnitus. Cardiovascular: No chest pain or discomfort, no palpitations, no Hypertension, and no High Cholesterol. Pulmonary: No daytime asthma symptoms and no chronic cough. No wheezing. Gastrointestinal: No heartburn and no abdominal pain. No Indigestion, no Peptic Ulcer, no GI Stomach Bleed, no Ulcers, and no Acid Reflux. Endocrine: No hot flashes, no muscle weakness, no Diabetes, no Hypothyroid, and no Hyperthyroid. Hematologic: No easy bleeding, no tendency for easy bruising, and no Anemia. Musculoskeletal: Arthritis and lower back pain. No soft tissue swelling. Pain localized to one or more joints. Neurological: No dizziness, no convulsions, and no numbness. Psychological: No anxiety, no emotional lability, no depression, and no insomnia. Not crying for no reason. Skin: No dry skin. No Ulcers, no Scars, and no rash. Allergic and Immunologic: Complaint of seasonal allergic reaction. Mental Status Includes: Mental Status from this encounter Description No anxiety Functional Status Includes: Functional Status from this encounter No Functional Status Recorded Physical Exam Includes: Physical Exam from this encounter Allergies Includes: Active Allergies No Known Allergies Encounters Encounter Provider Location Date Check-In Time Check-Out Time Diagnosis Post Op Maddy Malone PA-C [facility] 4 2:10PM 3:16PM Overweight Insurance Includes: Active Insurance Policies Plan Name Member ID Group # Subscriber Relationship Effect laura Dates 1 - [facility] Health Plan [id number] Alonso Richardson Self Clinical Notes Includes: Clinical Notes from this encounter No Clinical Notes Recorded
--- OUTSIDE RECORDS SUMMARY | 2023-07-16 14:09 | XMS_ITS | Clinical Summary ---
Author Name Unknown Address [address] [place] [address] [place] [address] Phone Organization [facility] Address [address] [place] [address] Phone Care Team Providers Care Mincemeat Maker Name Role Phone Robbin VELAZCO, Charli Vale Primary Care Provider [phone] Reason for Visit and Chief Complaint Consult Problems Includes: Problems addressed during this encounter and other active Problems All Visits Onset Date Resolved Date Provider Condition S tatus Joint Pain in the Right Hip 07/14/2023 Maddy Malone PA-C Active Last Documented On 4 3:08PM ; [facility] Plan of Treatment Future Appointments Date Time Location Provi giorgio Follow Up 10/14/2023 1:15PM [facility] paedics [facility] B Maddy Malone PA-C Last Documented On 4 3:26PM ; [facility], [facility] Assessments Includes: Assessments from this encounter No Assessments Recorded Medical Equipment - Implanted Devices Includes: Current Devices No Medical Equipment Recorded Medications Includes: Medications discussed during this encounter and other current Medications Current Medications (continue as prescribed) HYDROcodone-Acetaminophen 5- 325 MG Oral Tablet 07/14/2023 - 07/21/2023 Provider: Lamin Dixon MD Diagnosis: three times a day Last Documented On 4 3:59PM By Lamin [facility] Eliquis 5 MG Oral Tablet 07/08/2023 Provider: Diagnosis: Last Documented On 4 3:08PM By Katilin [facility] Folic Acid 1 MG Oral Tablet 07/08/2023 Provider: Diagnosis: Last Documented On 4 3:08PM By Kaitlin Christensen ; [facility], [facility] Levothyroxine Sodium 75 MCG Oral Tablet 07/08/2023 Cris dolander: Diagnosis: Last Documented On 4 3:08PM By Kaitlin Christensen ; [facility] Methocarbamol 500 MG Oral Tablet 07/08/2023 Provider : Diagnosis: Last Documented On 4 3:08PM By Kaitlin Christensen ; [facility] oxyCODONE HCl 5 MG Oral Tablet 07/08/2023 Provider: Diagnosis: Last Documented On 4 3:08PM By Kaitlin Christensen ; [facility] Thiamine HCl 100 MG Oral Tablet 07/08/2023 Provider: Diagnosis: Last Documented On 4 3:08PM By Kaitlin Christensen ; [facility], [facility] Bumetanide 1 MG Oral Tablet 07/08/2023 Provider: Diagnosis: Last Documented On 4 3:08PM By Kaitlin Christensen ; [facility], [facility] Jardiance 10 MG Oral Tablet 06/24/2023 Provider: Diagnosis: Last Documented On 4 3:08PM By Kaitlin Christensen ; [facility] Amiodarone HCl 200 MG Oral Tablet 06/17/2023 Provide r: ERASMO TANRAMAKRISHNA Diagnosis: Last Documented On 4 3:08PM By Kaitlin Christensen ; [facility], [facility] Digoxin 250 MCG Oral Tablet 06/17/2023 Provider: ERASMO MULBERRY Diagnosis: Last Documented On 4 3:08PM By Kaitlin Christensen ; [facility], [facility] Entresto 24-26 MG Oral Tablet 06/17/2023 Provider: ERASMO TANBERRY Diagnosis: Last Documented On 4 3:08PM By Kaitlin Christensen ; [facility] Spironolactone 25 MG Oral Tablet 06/17/2023 Provider : JAIME MCKINNEY MD Diagnosis: Last Documented On 4 3:08PM By Kaitlin Christensen ; [facility] Metoprolol Succinate ER 50 M G Oral Tablet Extended Release 24 Hour 06/16/2023 Provider: Diagnosis: Last Documented On 4 3:08PM By Kaitlin MENDIOLAS [facility] Medications Administered Includes: Administered Medications from this encounter No Administered Medications Recorded Results Includes: Results discussed during this encounter No Results Recorded For Specified Dates History of Present Illness Includes: History of Present Illness from this encounter No History of Present Illness Recorded Social History No Social History Recorded - Smoking Status Unknown Medical History Includes: Medical History addressed during this encounter No Medical History Recorded Family History Includes: Family History addressed during this encounter No Family History Recorded Review of Systems Includes: Review of Systems from this encounter No Review of Systems Recorded Mental Status Includes: Mental Status from this encounter No Mental Status Recorded Functional Status Includes: Functional Status from this encounter No Functional Status Recorded Physical Exam Includes: Physical Exam from this encounter No Physical Exam Recorded Allergies Includes: Active Allergies No Known Allergies Encounters Encounter Provider Location Date Check-In Time Check-Out Time Diagnosis Consult Lamin Dixon MD [facility] 4 12:22PM 11:59PM Insurance Includes: Active Insurance Policies Plan Name Member ID Group # Subscriber Relationship Effect laura Dates 1 - [facility] [id number] Alonso Palma Clinical Notes Includes: Clinical Notes from this encounter No Clinical Notes Recorded
--- OUTSIDE RECORDS SUMMARY | 2023-07-16 14:09 | XMS_ITS ---
Care Plan - [facility] Created on: July 16, 2023 Alonso Richardson : 1965 Sex: Male Author Name Unknown Address [address] [place] [address] [place] [address] Phone Organization [facility] Address [address] [place] [address] Phone Care Team Providers Care Medical Reviewer Name Role Phone Robbin VELAZCO, Charli Vale Primary Care Provider [phone]
--- OUTSIDE RECORDS SUMMARY | 2023-07-16 14:09 | XMS_ITS | Clinical Summary ---
Author Name Unknown Address [address] [place] [address] [place] [address] Phone Organization [facility] Address [address] [place] [address] Phone Care Team Providers Care Lidder Name Role Phone Robbin VELAZCO, Charli Vale Primary Care Provider [phone] Reason for Visit and Chief Complaint Restoration Health Problems Includes: Problems addressed during this encounter and other active Problems All Visits Onset Date Resolved Date Provider Condition S tatus Joint Pain in the Right Hip 07/14/2023 Maddy Malone PA-C Active Last Documented On 4 3:08PM ; [facility] Plan of Treatment Future Appointments Date Time Location Provi giorgio Follow Up 10/14/2023 1:15PM [facility] B Maddy Malone PA-C Last Documented On 4 3:26PM ; [facility] Assessments Includes: Assessments from this encounter [...] On 4 3:59PM By Lamin Dixon ; [facility] Eliquis 5 MG Oral Tablet 07/08/2023 Provider: Diagnosis: Last Documented On 4 3:08PM By Kaitlin [facility] Folic Acid 1 MG Oral Tablet 07/08/2023 Provider: Diagnosis: Last Documented On 4 3:08PM By Kaitlin Christensen ; [facility], [facility] Levothyroxine Sodium 75 MCG Oral Tablet 07/08/2023 Cris dolander: Diagnosis: Last Documented On 4 3:08PM By Kaitlin Christensen ; [facility] Methocarbamol 500 MG Oral Tablet 07/08/2023 Provider : Diagnosis: Last Documented On 4 3:08PM By Kaitlin Christensen ; [facility] oxyCODONE HCl 5 MG Oral Tablet 07/08/2023 Provider: Diagnosis: Last Documented On 4 3:08PM By Kaitlin Christensen ; [facility] Thiamine HCl 100 MG Oral Tablet 07/08/2023 Provider: Diagnosis: Last Documented On 4 3:08PM By Kaitlin Christensen ; [facility], [facility] Bumetanide 1 MG Oral Tablet 07/08/2023 Provider: Diagnosis: Last Documented On 4 3:08PM By Kaitlin Christensen ; [facility], [facility] Jardiance 10 MG Oral Tablet 06/24/2023 Provider: Diagnosis: Last Documented On 4 3:08PM By Kaitlin Christensen ; [facility], [facility] Amiodarone HCl 200 MG Oral Tablet 06/17/2023 Provide r: ERASMO MURRAY Diagnosis: Last Documented On 4 3:08PM By Kaitlin Christensen ; [facility], [facility] Digoxin 250 MCG Oral Tablet 06/17/2023 Provider: ERASMO TANBERRY Diagnosis: Last Documented On 4 3:08PM By Kaitlin Christensen ; [facility], [facility] Entresto 24-26 MG Oral Tablet 06/17/2023 Provider: ERASMO MURRAY Diagnosis: Last Documented On 4 3:08PM By Kaitlin Christensen ; [facility], [facility] Spironolactone 25 MG Oral Tablet 06/17/2023 Provider : JAIME MCKINNEY MD Diagnosis: Last Documented On 4 3:08PM By Kaitlin Christensen ; [facility], [facility] Metoprolol Succinate ER 50 M G Oral Tablet Extended Release 24 Hour 06/16/2023 Provider: Diagnosis: Last Documented On 4 3:08PM By Kaitlin Christensen ; [facility], [facility] Medications Administered Includes: Administered Medications from [...] Diagnosis Performing Provider Service Location Service Date TREAT THIGH FRACTURE (RIGHT) 04860 Displaced intertrochanteric fracture of right femur, init Lamin Dixon MD [facility] 06/07/2023 Last Documented On 4 12:30PM ; [facility] Medical History Includes: Medical History addressed during [...] Location Date Check-In Time Check-Out Time Diagnosis [facility] Lamin Dixon MD [facility] 4 12:27PM 11:59PM Insurance Includes: Active Insurance Policies Plan Name Member ID Group # Subscriber Relationship Effect laura Dates - [facility] [id number] Alonso Richardson [facility] Clinical Notes Includes: Clinical Notes from this encounter No Clinical Notes Recorded
--- OUTSIDE RECORDS SUMMARY | 2023-07-16 14:09 | XMS_ITS | Clinical Summary ---
Author Name Unknown Address [address] [place] [address] [place] [address] Phone Organization [facility] , [facility] Address [address] [place] [address] Phone Care Team Providers Care Metal Refiner Name Role Phone Robbin VELAZCO, Charli Vale Primary Care Provider [phone] Reason for Visit and Chief Complaint WC FOLLOW UP/EST Problems Includes: Problems addressed during this encounter and other active Problems All Visits Onset Date Resolved Date Provider Condition S tatus Joint Pain in the Right Hip 07/14/2023 Maddy Malone PA-C Active Last Documented On 4 3:08PM ; [facility] Plan of Treatment Future Appointments Date Time Location Provi giorgio Follow Up 10/14/2023 1:15PM [facility] paedics [facility] B Maddy Malone PA-C Last Documented On 4 3:26PM ; [facility] Assessments Includes: Assessments from this encounter No [...] 3:59PM By Lamin Dixon ; [facility] Eliquis 5 MG Oral Tablet 07/08/2023 Provider: Diagnosis: Last Documented On 4 3:08PM By Kaitlin ANGULO [facility], [facility] Folic Acid 1 MG Oral Tablet 07/08/2023 Provider: Diagnosis: Last Documented On 4 3:08PM By Kaitlin Christensen ; [facility] Levothyroxine Sodium 75 MCG Oral Tablet 07/08/2023 Cris dolander: Diagnosis: Last Documented On 4 3:08PM By Kaitlin Christensen ; [facility] Methocarbamol 500 MG Oral Tablet 07/08/2023 Provider : Diagnosis: Last Documented On 4 3:08PM By Kaitlin Christensen ; [facility] oxyCODONE HCl 5 MG Oral Tablet 07/08/2023 Provider: Diagnosis: Last Documented On 4 3:08PM By Kaitlin Christensen ; [facility] Thiamine HCl 100 MG Oral Tablet 07/08/2023 Provider: Diagnosis: Last Documented On 4 3:08PM By Kaitlin Christensen ; [facility] Bumetanide 1 MG Oral Tablet 07/08/2023 Provider: Diagnosis: Last Documented On 4 3:08PM By Kaitlin Christensen ; [facility], [facility] Jardiance 10 MG Oral Tablet 06/24/2023 Provider: Diagnosis: Last Documented On 4 3:08PM By Kaitlin hCristensen ; [facility] Amiodarone HCl 200 MG Oral Tablet 06/17/2023 Provide r: ERASMO MURRAY Diagnosis: Last Documented On 4 3:08PM By Kaitlin Christensen ; [facility] Digoxin 250 MCG Oral Tablet 06/17/2023 Provider: ERASMO MURRAY Diagnosis: Last Documented On 4 3:08PM By Kaitlin Christensen ; [facility] Entresto 24-26 MG Oral Tablet 06/17/2023 Provider: ERASMO MURRAY Diagnosis: Last Documented On 4 3:08PM By Kaitlin Christensen ; [facility] Spironolactone 25 MG Oral Tablet 06/17/2023 Provider : JAIME MCKINNEY MD Diagnosis: Last Documented On 4 3:08PM By Kaitlin Christensen ; [facility] Metoprolol Succinate ER 50 M G Oral Tablet Extended Release 24 Hour 06/16/2023 Provider: Diagnosis: Last Documented On 4 3:08PM By Kaitlin [facility] Medications Administered Includes: Administered Medications from this [...] Location Date Check-In Time Check-Out Time Diagnosis WC FOLLOW UP/EST Charli Siegel MD [facility] 10/24/19 10 8:55AM 9:54AM Insurance Includes: Active Insurance Policies Plan Name Member ID Group # Subscriber Relationship Effect laura Dates 1 - [facility] [id number] Alonso Palma Clinical Notes Includes: Clinical Notes from this encounter No Clinical Notes Recorded
--- OUTSIDE RECORDS SUMMARY | 2023-07-16 14:10 | XMS_ITS | Clinical Summary ---
Author Name Unknown Address [address] [place] [address] [place] [address] Phone Organization [facility] , [facility] Address [address] [place] [address] Phone Care Team Providers Care Environmental Auditor Name Role Phone Robbin VELAZCO, Charli Vale Primary Care Provider [phone] Reason for Visit and Chief Complaint WC FOLLOW UP/EST Problems Includes: Problems addressed during this encounter and other active Problems All Visits Onset Date Resolved Date Provider Condition S tatus Joint Pain in the Right Hip 07/14/2023 Maddy Malone PA-C Active Last Documented On 4 3:08PM ; [facility] Plan of Treatment Future Appointments Date Time Location Provi giorgio Follow Up 10/14/2023 1:15PM [facility] paedics [facility] B Maddy Malone PA-C Last Documented On 4 3:26PM [facility] Assessments Includes: Assessments from this encounter [...] 3:59PM By Lamin Dixon ; [facility] Eliquis 5 MG Oral Tablet 07/08/2023 Provider: Diagnosis: Last Documented On 4 3:08PM By Kaitlin ANGULO [facility], [facility] Folic Acid 1 MG Oral Tablet 07/08/2023 Provider: Diagnosis: Last Documented On 4 3:08PM By Kaitlin Christensen ; [facility] Levothyroxine Sodium 75 MCG Oral Tablet 07/08/2023 Cris dolander: Diagnosis: Last Documented On 4 3:08PM By Kaitlin Christensen ; [facility] Methocarbamol 500 MG Oral Tablet 07/08/2023 Provider : Diagnosis: Last Documented On 4 3:08PM By Kaitlin Christensen ; [facility] oxyCODONE HCl 5 MG Oral Tablet 07/08/2023 Provider: Diagnosis: Last Documented On 4 3:08PM By Kaitlin Christensen ; [facility] Thiamine HCl 100 MG Oral Tablet 07/08/2023 Provider: Diagnosis: Last Documented On 4 3:08PM By Kaitlin Christensen ; [facility] Bumetanide 1 MG Oral Tablet 07/08/2023 Provider: Diagnosis: Last Documented On 4 3:08PM By Kaitlin Christensen ; [facility], [facility] Jardiance 10 MG Oral Tablet 06/24/2023 Provider: Diagnosis: Last Documented On 4 3:08PM By Kaitlin Christensen ; [facility] Amiodarone HCl 200 MG Oral Tablet 06/17/2023 Provide r: ERASMO MURRAY Diagnosis: Last Documented On 4 3:08PM By Kaitlin Christensen ; [facility] Digoxin 250 MCG Oral Tablet 06/17/2023 Provider: ERASMO MURRAY Diagnosis: Last Documented On 4 3:08PM By Kaitlin Christensen ; [facility] Entresto 24-26 MG Oral Tablet 06/17/2023 Provider: ERASMO MURRAY Diagnosis: Last Documented On 4 3:08PM By Kaitlin Christensen ; [facility] Spironolactone 25 MG Oral Tablet 06/17/2023 Provider : JAIME MCKINNEY MD Diagnosis: Last Documented On 4 3:08PM By Kaitlin Christensen ; [facility] Metoprolol Succinate ER 50 M G Oral Tablet Extended Release 24 Hour 06/16/2023 Provider: Diagnosis: Last Documented On 4 3:08PM By Kaitlin Mina [facility] Medications Administered Includes: Administered Medications [...] Diagnosis WC FOLLOW UP/EST Charli Siegel MD [facility] 09/28/19 10 8:45AM 10:32AM Insurance Includes: Active Insurance Policies Plan Name Member ID Group # Subscriber Relationship Effect laura Dates 1 - [facility] [id number] Alonso Palma Clinical Notes Includes: Clinical Notes from this encounter No Clinical Notes Recorded
[2023-07-16 15:01] LABS: Anion Gap 15.4 mEq/L (5-15); Blood Urea Nitrogen 22 mg/dl (9-20); Calcium 9.4 mg/dl (8.4-10.2); Carbon Dioxide 29 mmol/L (22.0-30.0); Chloride 94 mmol/L (98-107); Estimated Glomerular Filt Rate 52 ml/min (>60); GFR (African American) 63 ML/MIN (>60); Glucose 91 mg/dl (74-100); Potassium 4.4 mmoL/L (3.5-5.1); Sodium 134 mmol/L (136-145)
[2023-07-16 15:12] LABS: NT Pro Brain Natriuretic Pep. 1980 pg/mL (0-125)
== END 2023-07-16 23:59 | disposition home or self-care (01) ==
LOC: LAB 14:06
PROVIDERS: PCP Nurse Practitioner Family; Visit Provider Internal Medicine
DX: I42.9 Cardiomyopathy, unspecified (principal); I50.9 Heart failure, unspecified; I27.20 Pulmonary hypertension, unspecified; I10 Essential (primary) hypertension; I50.20 Unspecified systolic (congestive) heart failure
CPT/HCPCS: 36415; 80048; 83880

== ENCOUNTER 2023-07-24 10:57 | Outpatient (CLI) | payer MEDICAID, SELFPAY ==
[2023-07-24] MEDS: ISOTOPE MYOVIEW (PER STUDY) 1 DOSE IV (13:35)
[2023-07-24] MEDS: SODIUM CHLORIDE 0.9% 10ML SYR (RAD ONLY) 10 ML IV (13:35)
== END 2023-07-24 23:59 | disposition home or self-care (01) ==
LOC: RAD 10:57
PROVIDERS: Visit Provider Internal Medicine
DX: I42.8 Other cardiomyopathies (principal); I45.10 Unspecified right bundle-branch block; R00.0 Tachycardia, unspecified; I11.0 Hypertensive heart disease with heart failure; I50.813 Acute on chronic right heart failure; R94.31 Abnormal electrocardiogram [ECG] [EKG]; K21.9 Gastro-esophageal reflux disease without esophagitis; F17.210 Nicotine dependence, cigarettes, uncomplicated
CPT/HCPCS: 78452; A9502

== ENCOUNTER 2023-07-24 12:57 | Observation (INO) | payer MEDICAID, SELFPAY ==
[2023-07-24] VITALS (10 sets, daily range): BP systolic 116–135; BP diastolic 80–100; PULSE 82–149; RESP 18–31; TEMP 36.8; O2SAT 95–100; BMI 28.0
--- NOTE | 2023-07-24 13:04 | ECG_ITS ---
APPROVED REPORT Exam: Resting ECG HR:103 bpm ECG Measurements Heart Rate 103 AXES ID 165 P 64 QRSd 145 QRS 86 QT 343 T 57 QTc 403 Conclusion SINUS TACHYCARDIA RIGHT BUNDLE BRANCH BLOCK Electronically signed by : MASON KOROMA, 07/24/2023 15:52:33
--- OUTSIDE RECORDS SUMMARY | 2023-07-24 13:08 | XMS_ITS ---
Author Name Unknown Address [address] [place] [address] Phone Organization [facility] , [facility] Address [address] [address] Phone Care Team Providers Care Data Collection Associate Name Role Phone Robbin VELAZCO, Charli Vale Primary Care Provider [phone] Problems Includes: Active, inactive, and resolved Problems All Visits Onset Date Resolved Date Provider Condition S tatus Joint Pain in the Right Hip 07/14/2023 Maddy Malone PA-C Active Last Documented On 4 3:08PM ; [facility], [facility] Plan of Treatment Future Appointments Date Time Location Provi giorgio Follow Up 10/14/2023 1:15PM [facility] Last Documented On 4 3:26PM ; [facility], [facility] Instructions to patient Lose weight Last Documented On 4 3:12PM ; [facility], [facility] Assessments Includes: Assessments for all patient encounters Findings Encounter Date Overweight Post Op with Maddy Malone PA-C 07/14/2023 Last Documented On 4 9:30AM ; [facility], [facility] Instructions Includes: Instructions for all patient encounters Instructions to patient Lose weight Last Documented On 4 3:12PM ; [facility], [facility] Medical Equipment - Implanted Devices Includes: Current and historical Devices No Medical Equipment Recorded Medications Includes: Current and historical Medications Current Medications (continue as prescribed) Eliquis 5 MG Oral Tablet 07/08/2023 Provider: Diagnosis: Last Documented On 4 3:08PM By Kaitlin Christensen ; [facility] Folic Acid 1 MG Oral Tablet 07/08/2023 Provider: Diagnosis: Last Documented On 4 3:08PM By Kaitlin Christensen ; [facility] Levothyroxine Sodium 75 MCG Oral Tablet 07/08/2023 P kelsider: Diagnosis: Last Documented On 4 3:08PM By Kaitlin Christensen ; [facility] Methocarbamol 500 MG Oral Tablet 07/08/2023 Provider : Diagnosis: Last Documented On 4 3:08PM By Kaitlin Christensen ; [facility] oxyCODONE HCl 5 MG Oral Tablet 07/08/2023 Provider: Diagnosis: Last Documented On 4 3:08PM By Kaitlin Christensen ; [facility] Thiamine HCl 100 MG Oral Tablet 07/08/2023 Provider: Diagnosis: Last Documented On 4 3:08PM By Kaitlin Christensen ; [facility] Bumetanide 1 MG Oral Tablet 07/08/2023 Provider: Diagnosis: Last Documented On 4 3:08PM By Kaitlin Christensen ; [facility], [facility] Jardiance 10 MG Oral Tablet 06/24/2023 Provider: Diagnosis: Last Documented On 4 3:08PM By Kaitlin Christensen ; [facility] Amiodarone HCl 200 MG Oral Tablet 06/17/2023 Provide r: ERASMO MURRAY Diagnosis: Last Documented On 4 3:08PM By Kaitlin Christensen ; [facility] Digoxin 250 MCG Oral Tablet 06/17/2023 Provider: ERASMO MURRAY Diagnosis: Last Documented On 4 3:08PM By Kaitlin Christensen ; [facility] Entresto 24-26 MG Oral Tablet 06/17/2023 Provider: ERASMO MURRAY Diagnosis: Last Documented On 4 3:08PM By Kaitlin Christensen ; [facility] Spironolactone 25 MG Oral Tablet 06/17/2023 Provider : JAIME MCKINNEY MD Diagnosis: Last Documented On 4 3:08PM By Kaitlin Christensen ; [facility] Metoprolol Succinate ER 50 M G Oral Tablet Extended Release 24 Hour 06/16/2023 Provider: Diagnosis: Last Documented On 4 3:08PM By Kaitlin Christensen ; [facility] Past Medications on file HYDROcodone-Acetaminophen 5- 325 MG Oral Tablet 07/14/2023 - 07/21/2023 Provider: Lamin Dixon MD Diagnosis: three times a day Last Documented On 4 3:59PM By Lamin Dixon ; [facility] Medications Administered Includes: Administered Medications in patient's chart No Administered Medications Recorded Vital Signs Includes: Vital Signs from 07/23/2022 through 07/24/2023 Vital Name 07/14/2023 03:09P Height (in) 72 Weight (lb) 210 Body Mass Index 28.5 Body Surface Area 2.2 Note: hdv Last Documented: On 07/14/2023 3:33PM ; [facility] Results Includes: Results from 07/23/2022 through 07/24/2023 No Results Recorded For Specified Dates History of Present Illness History of Present Illness not supported for this document type No History of Present Illness Recorded Social History Description Last Updated Alcohol use 07/14/2023 Last Documented On 4 9:30AM ; [facility] Caffeine use 07/14/2023 Last Documented On 4 9:30AM ; [facility] No recent change in diet 07/14/2023 Last Documented On 4 9:30AM ; [facility] Not exercising regularly 07/14/2023 Last Documented On 4 9:30AM ; [facility] Not using drugs 07/14/2023 Last Documented On 4 9:30AM ; [facility] Yes, current smoker. 07/14/2023 Last Documented On 4 9:30AM ; [facility] Smoking Status Unknown Procedures and Surgical History Includes: Procedures from 07/23/2022 through 07/24/2023 Procedures Code Diagnosis Performing Provider Service Location Service Date PELVIS w/ 2-3 VIEW HIP (RIGHT) 96361 Displaced intertrochanteric fracture of right femur, init Maddy Malone PA-C [facility] B 07/14/2023 Last Documented On 4 1:48PM ; [facility] TREAT THIGH FRACTURE (RIGHT) 04579 Displaced intertrochanteric fracture of right femur, init Lamin Dixon MD [facility] 06/07/2023 Last Documented On 4 12:30PM ; [facility] Surgical History Last Updated History of back surgery 07/14/2023 Last Documented On 4 9:30AM ; [facility] History of Previous Fractures 07/14/2023 Last Documented On 4 9:30AM ; [facility] Medical History Includes: Medical History in patient's chart Description Last Updated History of Fractures 07/14/2023 Last Documented On 4 9:30AM ; [facility] History of Hypertension 07/14/2023 Last Documented On 4 9:30AM ; [facility] History of Irregular Heartbeat 4 Last Documented On 4 9:30AM ; [facility] Family History Includes: Family History in patient's chart Description Last Updated No significant family history 07/14/2023 Last Documented On 4 9:30AM ; [facility] Review of Systems Review of Systems not supported for this document type No Review of Systems Recorded Mental Status Description No anxiety Functional Status No Functional Status Recorded Physical Exam Physical Exam not supported for this document type No Physical Exam Recorded Allergies Includes: Active, inactive, and resolved Allergies No Known Allergies Encounters Includes: Encounters from 07/23/2022 through 07/24/2023 Encounter Provider Location Date Check-In Time Check-Out Time Diagnosis Post Op Maddy Malone PA-C [facility] 07/14/19 24 2:10PM 3:16PM Overweight Consult Lamin Dixon MD [facility] 06/27/19 24 09/15/2009 12:22PM 09/15/2009 11:59PM [facility] Lamin Dixon MD [facility] 06/07/19 24 09/15/2009 12:27PM 09/15/2009 11:59PM Insurance Includes: Active Insurance Policies Plan Name Member ID Group # Subscriber Relationship Effect laura Dates 1 - [facility] [id number] Alonso Richardson Self Clinical Notes Includes: Signed Clinical Notes starting from 02/14/2022 * Progress note Date Encounter Last Documented by 07/14/2023 Post Op Last documented on 07/17/2023; 9:30 AM, Maddy Malone PA-C; [facility] Active Problems & Conditions - Joint Pain in the Right Hip Chief Complaint The Chief Complaint is: Right hip pain. Referred Here Referred by. History of Present Illness Alonso Richardson is a 58 year old male. [...] treatment. - - Review of medications documented Current Medication - Amiodarone HCl 200 MG Oral Tablet 30 days, 0 refills - Bumetanide 1 MG Oral Tablet 90 days, 0 refills - Digoxin 250 MCG Oral Tablet 30 days, 0 refills - Eliquis 5 MG Oral Tablet 90 days, 0 refills - Entresto 24-26 MG Oral Tablet 30 days, 0 refills - Folic Acid 1 MG Oral Tablet 90 days, 0 refills - Jardiance 10 MG Oral Tablet 30 days, 0 refills - Levothyroxine Sodium 75 MCG Oral Tablet 30 days, 0 refills - Methocarbamol 500 MG Oral Tablet 30 days, 0 refills - Metoprolol Succinate ER 50 MG Oral Tablet Extended Release 24 Hour 30 days, 0 refills - oxyCODONE HCl 5 MG Oral Tablet 2 days, 0 refills - Spironolactone 25 MG Oral Tablet 30 days, 0 refills - Thiamine HCl 100 MG Oral Tablet 32 days, 0 refills Past Medical/Surgical History Reported: History of Fractures. Diagnoses: Irregular Heartbeat Hypertension Surgical: - Previous Fractures - Back surgery Social History Yes, current smoker. Current diet: No recent change in diet. Caffeine use: Caffeine use. Alcohol: Alcohol use. Drug Use: Not using drugs. Habits: Not exercising regularly. Allergies - No Known Allergies Family History No significant family history Review Of Systems Systemic: Not feeling tired, no recent weight [...] and Immunologic: Complaint of seasonal allergic reaction. Physical Findings - Vitals taken 07/14/2023 03:09 pm hdv Height 72 in Weight 210 lbs Body Mass Index 28.5 kg/m2 Body Surface Area 2.2 m2 Patient is awake and alert. Well groomed and nourished. No acute distress. He uses a walker but he can weight bear. Sutures are removed without complication. No edema in the leg negative Homans sign no sign of infection normal sensation brisk cap refill throughout Appropriate mood and affect. Tests X-rays three-view of the pelvis and femur show well-aligned hip ORIF and rodding of the femur Assessment - Overweight Right hip ORIF Previous Tests Imaging: Intravascular Ultrasound (Coronary Vessel/Graft): An X-ray was performed. Counseling/Education - Tobacco non-user - Use of tobacco assessment performed - Lose weight Plan StartCited - Other HYDROcodone-Acetaminophen 5-325 MG tablet three times a day, 7 days, 0 refills EndCited He will continue rehab. He understands his restrictions we will see him back as scheduled no further questions Notes This dictation was done with voice recognition software and may contain errors and omissions.
--- OUTSIDE RECORDS SUMMARY | 2023-07-24 13:08 | XMS_ITS | Clinical Summary ---
Author Name Unknown Address [address] [place] [address] Phone Organization [facility] , [facility] Address [address] [place] [address] Phone Care Team Providers Care Fiscal Agent Name Role Phone Robbin VELAZCO, Charli Vale Primary Care Provider [phone] Reason for Visit and Chief Complaint The Chief Complaint is: Right hip pain Problems Includes: Problems addressed during this encounter and other active Problems Current Visit Onset Date Resolved Date Provider José gil Status Joint Pain in the Right Hip 07/14/2023 Maddy Malone PA-C Active Last Documented On 4 3:08PM ; [facility], [facility] Plan of Treatment He will continue rehab. He understands his restrictions we will see him back as scheduled no further questions - Last Documented On 07/17/2023 9:30AM ; [facility], [facility] Future Appointments Date Time Location Provi giorgio Follow Up 10/14/2023 1:15PM [facility] paedics [facility] B Maddy Malone PA-C Last Documented On 4 3:26PM ; [facility], [facility] Instructions to patient Lose weight Last Documented On 4 3:12PM ; [facility], [facility] Assessments Includes: Assessments from this encounter Findings - Overweight - Last Documented On 07/17/2023 9:30AM ; [facility] Right hip ORIF - Last Documented On 07/17/2023 9:30AM ; [facility], [facility] Instructions Includes: Instructions from this encounter Instructions to patient Lose weight Last Documented On 4 3:12PM ; [facility] Medical Equipment - Implanted Devices Includes: Current Devices No Medical Equipment Recorded Medications Includes: Medications discussed during this encounter and other current Medications New / Renewed during this visit Lamin Dixon MD on 07/14/2023 HYDROcodone-Acetaminophen 5- 325 MG Oral Tablet Provider: Lamin Dixon MD 7 day supply: 21 tablet, 0 refills Diagnosis: three times a day Pharmacy: [address] [place], [phone] - Last Documented On 4 3:59PM By Lamin Dixon ; [facility], [facility] Current Medications (continue as prescribed) Eliquis 5 MG Oral Tablet 07/08/2023 Provider: Diagnosis: Last Documented On 4 3:08PM By Kaitlin Christensen ; [facility], [facility] Folic Acid 1 MG Oral Tablet 07/08/2023 Provider: Diagnosis: Last Documented On 4 3:08PM By Kaitlin Christensen ; [facility], [facility] Levothyroxine Sodium 75 MCG Oral Tablet 07/08/2023 P rorozder: Diagnosis: Last Documented On 4 3:08PM By Kaitlin Christensen ; [facility], [facility] Methocarbamol 500 MG Oral Tablet 07/08/2023 Provider : Diagnosis: Last Documented On 4 3:08PM By Kaitlin Christensen ; [facility], [facility] oxyCODONE HCl 5 MG Oral Tablet 07/08/2023 Provider: Diagnosis: Last Documented On 4 3:08PM By Kaitlin Christensen ; [facility], [facility] Thiamine HCl 100 MG Oral Tablet 07/08/2023 Provider: Diagnosis: Last Documented On 4 3:08PM By Kaitlin Christensen ; [facility], [facility] Bumetanide 1 MG Oral Tablet 07/08/2023 Provider: Diagnosis: Last Documented On 4 3:08PM By Kaitlin Christensen ; [facility], [facility] Jardiance 10 MG Oral Tablet 06/24/2023 Provider: Diagnosis: Last Documented On 4 3:08PM By Kaitlin Christensen ; [facility], [facility] Amiodarone HCl 200 MG Oral Tablet 06/17/2023 Provide r: ERASMO TANRAMAKRISHNA Diagnosis: Last Documented On 4 3:08PM By Kaitlin Christensen ; [facility], [facility] Digoxin 250 MCG Oral Tablet 06/17/2023 Provider: ERASMO MURRAY Diagnosis: Last Documented On 4 3:08PM By Kaitlin Christensen ; [facility], [facility] Entresto 24-26 MG Oral Tablet 06/17/2023 Provider: ERASMO MURRAY Diagnosis: Last Documented On 4 3:08PM By Kaitlin Christensen ; [facility], [facility] Spironolactone 25 MG Oral Tablet 06/17/2023 Provider : JAIME MCKINNEY MD Diagnosis: Last Documented On 4 3:08PM By Kaitlin Christensen ; [facility], [facility] Metoprolol Succinate ER 50 M G Oral Tablet Extended Release 24 Hour 06/16/2023 Provider: Diagnosis: Last Documented On 4 3:08PM By Kaitlin Christensen ; [facility] Medications Administered Includes: Administered Medications from this encounter No Administered Medications Recorded Vital Signs Includes: Vital Signs from this encounter Vital Name 07/14/2023 03:09P Height (in) 72 Weight (lb) 210 Body Mass Index 28.5 Body Surface Area 2.2 Note: hdv Last Documented: On 07/14/2023 3:33PM ; [facility], [facility] Results Includes: Results discussed during this encounter [...] Last Documented On 4 9:30AM ; [facility], [facility] Caffeine use 07/14/2023 Last Documented On 4 9:30AM ; [facility] No recent change in diet 07/14/2023 Last Documented On 4 9:30AM ; [facility] Not exercising regularly 07/14/2023 Last Documented On 4 9:30AM ; [facility] Not using drugs 07/14/2023 Last Documented On 4 9:30AM ; [facility] Yes, current smoker. 07/14/2023 Last Documented On 4 9:30AM ; [facility] Smoking Status Unknown Procedures and Surgical History Includes: Procedures from this encounter Procedures Code Diagnosis Performing Provider Service Location Service Date PELVIS w/ 2-3 VIEW HIP (RIGHT) 53481 Displaced intertrochanteric fracture of right femur, init Maddy Malone PA-C [facility] B 07/14/2023 Last Documented On 4 1:48PM ; [facility] an X-ray was performed 74132 Last Documented On 4 3:34PM ; [facility] Surgical History Last Updated History of back surgery 07/14/2023 Last Documented On 4 9:30AM ; [facility] History of Previous Fractures 07/14/2023 Last Documented On 4 9:30AM ; [facility] Medical History Includes: Medical History addressed during this encounter Description Last Updated History of Fractures 07/14/2023 Last Documented On 4 9:30AM ; [facility] History of Hypertension 07/14/2023 Last Documented On 4 9:30AM ; [facility] History of Irregular Heartbeat 4 Last Documented On 4 9:30AM ; [facility] Family History Includes: Family History addressed during this encounter Description Last Updated No significant family history 07/14/2023 Last Documented On 4 9:30AM ; [facility] Review of Systems Includes: Review [...] Time Diagnosis Post Op Maddy Malone PA-C [facility] 4 2:10PM 3:16PM Overweight Insurance Includes: Active Insurance Policies Plan Name Member ID Group # Subscriber Relationship Effect laura Dates 1 - [facility] [id number] Alonso Vale Dylan Self Clinical Notes Includes: Clinical Notes from this encounter * Progress note Date Encounter Last Documented by 07/14/2023 Post Op Last documented on 07/17/2023; 9:30 AM, Maddy Malone PA-C; [facility], [facility] Active Problems & Conditions - Joint [...]
--- OUTSIDE RECORDS SUMMARY | 2023-07-24 13:08 | XMS_ITS ---
Care Plan - [facility] Created on: July 24, 2023 Alonso Richardson : 1965 Sex: Male Author Name Unknown Address [address] [place] [address] [place] [address] Phone Organization [facility] Address [address] [place] [address] Phone Care Team Providers Care Fish Stringer Assembler Name Role Phone Robbin VELAZCO, Charli Vale Primary Care Provider [phone]
--- OUTSIDE RECORDS SUMMARY | 2023-07-24 13:09 | XMS_ITS | Clinical Summary ---
Author Name Unknown Address [address] [place] [address] [place] [address] Phone Organization [facility] , [facility] Address [address] [place] [address] Phone Care Team Providers Care Jewel Hole Cornerer Name Role Phone Robbin VELAZCO, Charli Vale Primary Care Provider [phone] Reason for Visit and Chief Complaint Consult Problems Includes: Problems addressed during this encounter and other active Problems All Visits Onset Date Resolved Date Provider Condition S tatus Joint Pain in the Right Hip 07/14/2023 Maddy Malone PA-C Active Last Documented On 4 3:08PM ; [facility] Plan of Treatment Future Appointments Date Time Location Provi giorgio Follow Up 10/14/2023 1:15PM [facility] paedics [facility] B Maddy Malone PA-C Last Documented On 4 3:26PM ; [facility], [facility] Assessments Includes: Assessments from this encounter No Assessments Recorded Medical Equipment - Implanted Devices Includes: Current Devices No Medical Equipment Recorded Medications Includes: Medications discussed during this encounter and other current Medications Current Medications (continue as prescribed) Eliquis 5 MG Oral Tablet 07/08/2023 Provider: Diagnosis: Last Documented On 4 3:08PM By Kaitlin Christensen ; [facility] Folic Acid 1 MG Oral Tablet 07/08/2023 Provider: Diagnosis: Last Documented On 4 3:08PM By Kaitlin Christensen ; [facility], [facility] Levothyroxine Sodium 75 MCG Oral Tablet 07/08/2023 Cris dolander: Diagnosis: Last Documented On 4 3:08PM By Kaitlin Christensen ; [facility], [facility] Methocarbamol 500 MG Oral Tablet 07/08/2023 Provider : Diagnosis: Last Documented On 4 3:08PM By Kaitlin Christensen ; [facility], [facility] oxyCODONE HCl 5 MG Oral Tablet 07/08/2023 Provider: Diagnosis: Last Documented On 4 3:08PM By Kaitlin Christensen ; [facility], [facility] Thiamine HCl 100 MG Oral Tablet 07/08/2023 Provider: Diagnosis: Last Documented On 4 3:08PM By Kaitlin Christensen ; [facility], [facility] Bumetanide 1 MG Oral Tablet 07/08/2023 Provider: Diagnosis: Last Documented On 4 3:08PM By Kaitlin Christensen ; [facility], [facility] Jardiance 10 MG Oral Tablet 06/24/2023 Provider: Diagnosis: Last Documented On 4 3:08PM By Kaitlin Christensen ; [facility], [facility] Amiodarone HCl 200 MG Oral Tablet 06/17/2023 Provide r: ERASMOARIANA TANRAMAKRISHNA Diagnosis: Last Documented On 4 3:08PM By Kaitlin Christensen ; [facility], [facility] Digoxin 250 MCG Oral Tablet 06/17/2023 Provider: ERASMO MURRAY Diagnosis: Last Documented On 4 3:08PM By Kaitlin Christensen ; [facility], [facility] Entresto 24-26 MG Oral Tablet 06/17/2023 Provider: ERASMO MURRAY Diagnosis: Last Documented On 4 3:08PM By Kaitlin Christensen ; [facility], [facility] Spironolactone 25 MG Oral Tablet 06/17/2023 Provider : JAIME MCKINNEY MD Diagnosis: Last Documented On 4 3:08PM By Kaitlin Christensen ; [facility], [facility] Metoprolol Succinate ER 50 M G Oral Tablet Extended Release 24 Hour 06/16/2023 Provider: Diagnosis: Last Documented On 4 3:08PM By Kaitlin Christensen ; [facility], [facility] Medications Administered Includes: Administered Medications from [...] Check-Out Time Diagnosis Consult Lamin Dixon MD [facility] 4 12:22PM 11:59PM Insurance Includes: Active Insurance Policies Plan Name Member ID Group # Subscriber Relationship Effect laura Dates 1 - [facility] Health Plan [id number] Alonso Richardson Self Clinical Notes Includes: Clinical Notes from this encounter No Clinical Notes Recorded
--- OUTSIDE RECORDS SUMMARY | 2023-07-24 13:09 | XMS_ITS | Clinical Summary ---
Author Name Unknown Address [address] [place] [address] [place] [address] Phone Organization [facility] , [facility] Address [address] [place] [address] Phone Care Team Providers Care Truck Shop Supervisor Name Role Phone Robbin VELAZCO, Charli Vale Primary Care Provider [phone] Reason for Visit and Chief Complaint WC FOLLOW UP/EST Problems Includes: Problems addressed during this encounter and other active Problems All Visits Onset Date Resolved Date Provider Condition S tatus Joint Pain in the Right Hip 07/14/2023 Maddy Malone PA-C Active Last Documented On 4 3:08PM ; [facility], [facility] Plan of Treatment Future Appointments Date Time Location Provi giorgio Follow Up 10/14/2023 1:15PM [facility] paedics [facility] B Maddy Malone PA-C Last Documented On 4 3:26PM ; [facility], [facility] Assessments Includes: Assessments from this encounter No Assessments Recorded Medical Equipment - Implanted Devices Includes: Current Devices No Medical Equipment Recorded Medications Includes: Medications discussed during this encounter and other current Medications Current Medications (continue as prescribed) Eliquis 5 MG Oral Tablet 07/08/2023 Provider: Diagnosis: Last Documented On 4 3:08PM By Kaitlin Christensen ; [facility] Folic Acid 1 MG Oral Tablet 07/08/2023 Provider: Diagnosis: Last Documented On 4 3:08PM By Kaitlin Christensen ; [facility], [facility] Levothyroxine Sodium 75 MCG Oral Tablet 07/08/2023 P rovider: Diagnosis: Last Documented On 4 3:08PM By Kaitlin Christensen ; [facility], [facility] Methocarbamol 500 MG Oral Tablet 07/08/2023 Provider : Diagnosis: Last Documented On 4 3:08PM By Kaitlin Christensen ; [facility], [facility] oxyCODONE HCl 5 MG Oral Tablet 07/08/2023 Provider: Diagnosis: Last Documented On 4 3:08PM By Kaitlin Christensen ; [facility], [facility] Thiamine HCl 100 MG Oral Tablet 07/08/2023 Provider: Diagnosis: Last Documented On 4 3:08PM By Kaitlin Christensen ; [facility], [facility] Bumetanide 1 MG Oral Tablet 07/08/2023 Provider: Diagnosis: Last Documented On 4 3:08PM By Kaitlin Christensen ; [facility], [facility] Jardiance 10 MG Oral Tablet 06/24/2023 Provider: Diagnosis: Last Documented On 4 3:08PM By Kaitlin Christensen ; [facility], [facility] Amiodarone HCl 200 MG Oral Tablet 06/17/2023 Provide r: ERASMO MURRAY Diagnosis: Last Documented On 4 3:08PM By Kaitlin Christensen ; [facility], [facility] Digoxin 250 MCG Oral Tablet 06/17/2023 Provider: ERASMO MURRAY Diagnosis: Last Documented On 4 3:08PM By Kaitlin Christensen ; [facility], [facility] Entresto 24-26 MG Oral Tablet 06/17/2023 Provider: ERASMO MURRAY Diagnosis: Last Documented On 4 3:08PM By Kaitlin Christensen ; [facility], [facility] Spironolactone 25 MG Oral Tablet 06/17/2023 Provider : JAIME MCKINNEY MD Diagnosis: Last Documented On 4 3:08PM By Kaitlin Christensen ; [facility], [facility] Metoprolol Succinate ER 50 M G Oral Tablet Extended Release 24 Hour 06/16/2023 Provider: Diagnosis: Last Documented On 4 3:08PM By Kaitlin Christensen ; [facility], [facility] Medications Administered Includes: Administered Medications from [...] Diagnosis WC FOLLOW UP/EST Charli Siegel MD [facility] 09/28/19 10 8:45AM 10:32AM Insurance Includes: Active Insurance Policies Plan Name Member ID Group # Subscriber Relationship Effect laura Dates 1 - [facility] [id number] Alonso Richardson Self Clinical Notes Includes: Clinical Notes from this encounter No Clinical Notes Recorded
--- OUTSIDE RECORDS SUMMARY | 2023-07-24 13:09 | XMS_ITS | Clinical Summary ---
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 Problems Includes: Problems addressed during this encounter and other active Problems All Visits Onset Date Resolved Date Provider Condition S tatus Joint Pain in the Right Hip 07/14/2023 Maddy Malone PA-C Active Last Documented On 4 3:08PM ; [facility], [facility] Plan of Treatment Future Appointments Date Time Location Provi giorgio Follow Up 10/14/2023 1:15PM [facility] paedics [facility] B Maddy Malone PA-C Last Documented On 4 3:26PM ; [facility], [facility] Assessments Includes: Assessments from this encounter No Assessments Recorded Medical Equipment - Implanted Devices Includes: Current Devices No Medical Equipment Recorded Medications Includes: Medications discussed during this encounter and other current Medications Current Medications (continue as prescribed) Eliquis 5 MG Oral Tablet 07/08/2023 Provider: Diagnosis: Last Documented On 4 3:08PM By Kaitlin Christensen ; [facility] Folic Acid 1 MG Oral Tablet 07/08/2023 Provider: Diagnosis: Last Documented On 4 3:08PM By Kaitlin Christensen ; [facility], [facility] Levothyroxine Sodium 75 MCG Oral Tablet 07/08/2023 P rovider: Diagnosis: Last Documented On 4 3:08PM By Kaitlin Christensen ; [facility], [facility] Methocarbamol 500 MG Oral Tablet 07/08/2023 Provider : Diagnosis: Last Documented On 4 3:08PM By Kaitlin Christensen ; [facility], [facility] oxyCODONE HCl 5 MG Oral Tablet 07/08/2023 Provider: Diagnosis: Last Documented On 4 3:08PM By Kaitlin Christensen ; [facility], [facility] Thiamine HCl 100 MG Oral Tablet 07/08/2023 Provider: Diagnosis: Last Documented On 4 3:08PM By Kaitlin Christensen ; [facility], [facility] Bumetanide 1 MG Oral Tablet 07/08/2023 Provider: Diagnosis: Last Documented On 4 3:08PM By Kaitlin Christensen ; [facility], [facility] Jardiance 10 MG Oral Tablet 06/24/2023 Provider: Diagnosis: Last Documented On 4 3:08PM By Kaitlin Christensen ; [facility], [facility] Amiodarone HCl 200 MG Oral Tablet 06/17/2023 Provide r: ERASMO TREVOR Diagnosis: Last Documented On 4 3:08PM By Kaitlin Christensen ; [facility], [facility] Digoxin 250 MCG Oral Tablet 06/17/2023 Provider: ERASMO MURRAY Diagnosis: Last Documented On 4 3:08PM By Kaitlin Christensen ; [facility], [facility] Entresto 24-26 MG Oral Tablet 06/17/2023 Provider: ERASMO MURRAY Diagnosis: Last Documented On 4 3:08PM By Kaitlin Christensen ; [facility], [facility] Spironolactone 25 MG Oral Tablet 06/17/2023 Provider : JAIME MCKINNEY MD Diagnosis: Last Documented On 4 3:08PM By Kaitlin Christensen ; [facility], [facility] Metoprolol Succinate ER 50 M G Oral Tablet Extended Release 24 Hour 06/16/2023 Provider: Diagnosis: Last Documented On 4 3:08PM By Kaitlin Christensen ; [facility], [facility] Medications Administered Includes: Administered Medications from this [...] Location Service Date TREAT THIGH FRACTURE (RIGHT) 78262 Displaced intertrochanteric fracture of right femur, init Lamin Dixon MD [facility] 06/07/2023 Last Documented On 4 12:30PM ; [facility] Medical History Includes: Medical History addressed during [...] Location Date Check-In Time Check-Out Time Diagnosis [facility] Lamin Dixon MD [facility] 4 12:27PM 11:59PM Insurance Includes: Active Insurance Policies Plan Name Member ID Group # Subscriber Relationship Effect laura Dates - [facility] [id number] Alonso Palma Clinical Notes Includes: Clinical Notes from this encounter No Clinical Notes Recorded
--- OUTSIDE RECORDS SUMMARY | 2023-07-24 13:09 | XMS_ITS | Clinical Summary ---
Author Name Unknown Address [address] [place] [address] [place] [address] Phone Organization [facility] , [facility] Address [address] [address] Phone Care Team Providers Care Maori Liaison Adviser Name Role Phone Robbin VELAZCO, Charli Vale Primary Care Provider [phone] Reason for Visit and Chief Complaint WC FOLLOW UP/EST Problems Includes: Problems addressed during this encounter and other active Problems All Visits Onset Date Resolved Date Provider Condition S tatus Joint Pain in the Right Hip 07/14/2023 Maddy Malone PA-C Active Last Documented On 4 3:08PM ; [facility], [facility] Plan of Treatment Future Appointments Date Time Location Provi giorgio Follow Up 10/14/2023 1:15PM [facility] paedics [facility] B Maddy Malone PA-C Last Documented On 4 3:26PM ; [facility], [facility] Assessments Includes: Assessments from this encounter No Assessments Recorded Medical Equipment - Implanted Devices Includes: Current Devices No Medical Equipment Recorded Medications Includes: Medications discussed during this encounter and other current Medications Current Medications (continue as prescribed) Eliquis 5 MG Oral Tablet 07/08/2023 Provider: Diagnosis: Last Documented On 4 3:08PM By Kaitlin Christensen ; [facility], [facility] Folic Acid 1 MG Oral Tablet 07/08/2023 Provider: Diagnosis: Last Documented On 4 3:08PM By Kaitlin Christensen ; [facility], [facility] Levothyroxine Sodium 75 MCG Oral Tablet 07/08/2023 P rovider: Diagnosis: Last Documented On 4 3:08PM By Kaitlin Christensen ; [facility], [facility] Methocarbamol 500 MG Oral Tablet 07/08/2023 Provider : Diagnosis: Last Documented On 4 3:08PM By Kaitlin Christensen ; [facility], [facility] oxyCODONE HCl 5 MG Oral Tablet 07/08/2023 Provider: Diagnosis: Last Documented On 4 3:08PM By Kaitlin Christensen ; [facility], [facility] Thiamine HCl 100 MG Oral Tablet 07/08/2023 Provider: Diagnosis: Last Documented On 4 3:08PM By Kaitlin Christensen ; [facility], [facility] Bumetanide 1 MG Oral Tablet 07/08/2023 Provider: Diagnosis: Last Documented On 4 3:08PM By Kaitlin Christensen ; [facility], [facility] Jardiance 10 MG Oral Tablet 06/24/2023 Provider: Diagnosis: Last Documented On 4 3:08PM By Kaitlin Christensen ; [facility], [facility] Amiodarone HCl 200 MG Oral Tablet 06/17/2023 Provide r: ERASMO MURRAY Diagnosis: Last Documented On 4 3:08PM By Kaitlin Christensen ; [facility], [facility] Digoxin 250 MCG Oral Tablet 06/17/2023 Provider: ERASMO MURRAY Diagnosis: Last Documented On 4 3:08PM By Kaitlin Christensen ; [facility], [facility] Entresto 24-26 MG Oral Tablet 06/17/2023 Provider: ERASMO MURRAY Diagnosis: Last Documented On 4 3:08PM By Kaitlin Christensen ; [facility], [facility] Spironolactone 25 MG Oral Tablet 06/17/2023 Provider : JAIME MCKINNEY MD Diagnosis: Last Documented On 4 3:08PM By Kaitlin Christensen ; [facility], [facility] Metoprolol Succinate ER 50 M G Oral Tablet Extended Release 24 Hour 06/16/2023 Provider: Diagnosis: Last Documented On 4 3:08PM By Kaitlin Christensen ; [facility], [facility] Medications Administered Includes: Administered Medications from [...] Diagnosis WC FOLLOW UP/EST Charli Siegel MD [facility] 10/24/19 10 8:55AM 9:54AM Insurance Includes: Active Insurance Policies Plan Name Member ID Group # Subscriber Relationship Effect laura Dates 1 - [facility] [id number] Alonso Richardson Self Clinical Notes Includes: Clinical Notes from this encounter No Clinical Notes Recorded
--- NOTE | 2023-07-24 13:15 | XR_ITS ---
FINAL REPORT TECHNIQUE: Single view chest CLINICAL HISTORY: soa, tachycardia COMPARISON: 06/21/2023 FINDINGS: A single view of the chest was obtained. The heart and mediastinum are within normal limits. Large bulky calcification is seen in the right paratracheal and subcarinal regions consistent with lymph nodes, stable from prior exam. Scarring is seen at the lung bases. Lungs are otherwise clear. There is no pneumothorax. Osseous structures are unremarkable. IMPRESSION: No acute cardiopulmonary process. Reviewed, Interpreted and Dictated by Nathanael Knowles MD Transcribed by Gisell De Authenticated and [facility]
--- NOTE | 2023-07-24 13:24 | PC.NURSE ---
XR AT BEDSIDE
[2023-07-24 13:27] LABS: Basophils # 0.1 K/mm3 (0-0.2); Basophils % 1.2 % (0.1-2.0); Eosinophils # 0.2 K/mm3 (0.0-0.4); Eosinophils % 2.2 % (0.1-12.0); Hematocrit 37.5 % (42.0-52.0); Hemoglobin 11.8 g/dL (14.1-18.0); Lymphocytes # 1.7 K/mm3 (0.7-4.5); Lymphocytes % 17.5 % (10-50); Mean Corpuscular HGB Conc 31.5 g/dL (31.8-35.4); Mean Corpuscular Hemoglobin 32.5 pg (27.0-31.2); Mean Corpuscular Volume 103.2 fl (80-94); Mean Platelet Volume 8.3 fl (7.4-10.4); Monocytes # 0.6 K/mm3 (0.1-1.0); Monocytes % 6.1 % (1.7-9.3); Neutrophils % 73.1 % (37.0-80.0); Platelet Count 316 K/mm3 (142-424); Red Blood Count 3.63 M/mm3 (4.60-6.20); White Blood Count 9.6 K/mm3 (4.8-10.8)
--- NOTE | 2023-07-24 13:38 | PC.NURSE ---
PT PROVIDED SOCKS AND WARM BLANKET. CALL LIGHT WITHIN REACH
--- NOTE | 2023-07-24 13:39 | ED_ITS ---
Discharge Plan Disposition Patient Disposition: Admitted Chief Complaint: Arrhythmia/Palpitations Prescriptions Prescriptions: No Action sertraline 100 mg tablet 100 mg PO DAILY metoprolol succinate [Toprol XL] 50 mg tablet extended release 24 hr 50 mg PO DAILY Qty: 30 2RF Jardiance 10 mg tablet 10 mg PO DAILY Qty: 30 5RF amiodarone 200 mg tablet 200 mg PO DAILY spironolactone [Aldactone] 25 mg tablet 25 mg PO DAILY Qty: 30 0RF Entresto 24-26 mg tablet 1 tab PO BID Qty: 60 0RF digoxin 250 mcg (0.25 mg) tablet 250 mcg PO DAILY Qty: 30 0RF apixaban 5 mg tablet 5 mg PO BID Referrals Follow up/Referrals: Provider,Referral, MD [Primary Care Provider] - See instructions Clinical Impressions Clinical Impression: Chest pain, Atrial flutter with rapid ventricular response Discharge ED Provider: Nathaniel Bishop General Adult HPI <Nathaniel Bishop MD - Last Filed: 07/24/23 14:16> General Chief complaint: Arrhythmia/Palpitations Stated complaint: elevated heart rate Time Seen by Provider: 07/24/23 13:01 Mode of Arrival: Wheelchair Source of Information: Patient Limitations: No Limitations Description of Symptoms (Recalled from ER Triage Doc. by RN): PT HERE FOR NUCLEAR STRESS TEST, INTIAL HR 120's. PT REPORTS NAUSEA AND FATIGUE X 2 DAYS. LAST DRINK A FEW DAYS AGO. PT GIVEN DOSE FOR STRESS TEST, HR 170's PROVIDER BROUGHT PT TO ED AFTER GIVING IV METOPROLOL 10MG AND HR REMAINS ELEVATED. PT DENIES CHEST PAIN History of Present Illness HPI narrative: Please note that above description of symptoms, in this electronic medical record under categorization of recalled from ER triage doctor by RN are reflective of an initial nursing assessment, however, is not reflective of my full history and physical exam that was personally taken and clarified. Consequentially, this preceding description of symptoms, which may include the patient's categorized chief complaint in the EMR, do not reflect my personal clinical impression, and the ultimate description of history of present illness and patient stated complaints should be deferred to this section of the note. Unless stated otherwise or congruent with this section of the note, additional signs, symptoms, or incongruence should be interpreted as inaccurate with my clinical impression. Related Data Home Medications Medication Instructions Recorded Confirmed amiodarone 200 mg tablet 200 mg PO DAILY 06/16/23 07/16/23 apixaban 5 mg tablet 5 mg PO BID 06/16/23 07/16/23 sertraline 100 mg tablet 100 mg PO DAILY 06/16/23 07/16/23 Previous Rx's Medication Instructions Recorded digoxin 250 mcg (0.25 mg) tablet 250 mcg PO DAILY #30 tabs 03/28/23 sacubitril 24 mg-valsartan 26 mg 1 tab PO BID #60 tabs 03/28/23 tablet (Entresto) spironolactone 25 mg tablet 25 mg PO DAILY #30 tabs 03/28/23 (Aldactone) empagliflozin 10 mg tablet 10 mg PO DAILY #30 tabs 06/16/23 (Jardiance) metoprolol succinate 50 mg 50 mg PO DAILY #30 tabs 06/16/23 tablet,extended release 24 hr (Toprol XL) Allergies Allergy/AdvReac Type Severity Reaction Status Date / Time hydrochlorothiazide AdvReac Unknown Other Verified 07/16/23 15:07 [facility] <Nathaniel Bishop MD - Last Filed: 07/24/23 14:16> [facility] Disclaimer: The information contained in this section may have been updated after the patient was seen, as this information can be updated by other users. 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 COPD (chronic obstructive pulmonary disease) Pulmonary hypertension Cirrhosis, alcoholic CHF (congestive heart failure) Hypertension Atrial fibrillation with rapid ventricular response Exposure to COVID-19 virus Surgical History History of discectomy History of cardiac radiofrequency ablation Family History Other Cancer Hypertension Stroke Substance abuse Social History Smoking Status: Current every day smoker tobacco type: cigarettes packs per day: 2 alcohol intake: current alcohol intake frequency: 3 or more drinks per day substance use type: denies use current occupational status: employed Travel in the last 8 weeks: None household members: significant other housing: house 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 current occupational exposures/hazards: No caffeine: Yes <Nathaniel Bishop MD - Last Filed: 07/24/23 14:16> ROS Obtained: Yes All systems reviewed & no additional complaints except as documented Physical Exam <Nathaniel Bishop MD - Last Filed: 07/24/23 14:16> General General appearance: alert and in no apparent distress Head Head exam: atraumatic and normocephalic Eye Eye exam: Present normal appearance, PERRL and EOMI ENT ENT exam: Present mucous membranes moist Neck Neck exam: Present normal inspection, full ROM and trachea midline Respiratory Respiratory exam: Absent respiratory distress, wheezes, stridor, accessory muscle use or prolonged expiratory phase Cardiovascular Cardiovascular exam: Present normal rhythm Abdominal Exam Abdominal exam: Present soft; Absent distention, tenderness, guarding, rebound or rigidity Extremities Exam Extremities exam: Absent edema Neurological Exam Neurological exam: Present alert, oriented X3, CN II-XII intact and normal gait; Absent motor sensory deficit Skin Skin exam: Present warm and dry; Absent diaphoresis or erythema Medical Decision Making <Nathaniel Bishop MD - Last Filed: 07/24/23 14:16> Medical Records Medical records reviewed: Yes I reviewed the patient's medical records. Paul Inquiry Pt receiving controlled substance: No Paul was queried for this patient: No Vital Signs: 07/24/23 12:58 07/24/23 13:30 07/24/23 14:00 Temperature 98.3 F Temperature Source Oral Pulse Rate 105 H 110 H Pulse Rate [Apical] 103 H Respiratory Rate 18 24 20 Blood Pressure 129/96 H 124/94 H Blood Pressure [Right Arm] 133/91 H Blood Pressure Mean 104 Blood Pressure Mean [Right Arm] 105 Blood Pressure Source [Right Arm] Automatic Cuff Blood Pressure Position [Right Arm] Sitting 02 Sat by Pulse Oximetry 97 97 98 Oxygen Delivery Method Room Air Room Air 07/24/23 14:30 07/24/23 15:00 07/24/23 15:30 Temperature Temperature Source Pulse Rate 103 H 149 H 101 H Pulse Rate [Apical] Respiratory Rate 22 26 H 24 Blood Pressure 124/96 H 129/94 H 126/81 Blood Pressure [Right Arm] Blood Pressure Mean Blood Pressure Mean [Right Arm] Blood Pressure Source [Right Arm] Blood Pressure Position [Right Arm] 02 Sat by Pulse Oximetry 98 97 95 Oxygen Delivery Method Room Air Room Air Room Air 07/24/23 16:30 Temperature Temperature Source Pulse Rate 144 H Pulse Rate [Apical] Respiratory Rate 26 H Blood Pressure 135/100 H Blood Pressure [Right Arm] Blood Pressure Mean Blood Pressure Mean [Right Arm] Blood Pressure Source [Right Arm] Blood Pressure Position [Right Arm] 02 Sat by Pulse Oximetry 97 Oxygen Delivery Method Room Air Lab Data Lab Results 07/24/23 13:15: WBC 9.6, RBC 3.63 L, Hgb 11.8 L, Hct 37.5 L, MCV 103.2 H, MCH 32.5 H, MCHC 31.5 L, RDW 17.0, Plt Count 316, MPV 8.3, Neut % (Auto) 73.1, Lymph % (Auto) 17.5, Ray % (Auto) 6.1, Eos % (Auto) 2.2, Baso % (Auto) 1.2, Neut # (Auto) 7.0, Lymph # (Auto) 1.7, Ray # (Auto) 0.6, Eos # (Auto) 0.2, Baso # (Auto) 0.1 07/24/23 13:35: D-Dimer 3.02 H, Sodium 134 L, Potassium 4.0, Chloride 94 L, Carbon Dioxide 29, Anion Gap 15.0, BUN 16, Creatinine 1.40 H, Estimated Creat Clear 79, Estimated GFR 52 L, Est GFR ( Amer) 63, Glucose 103 H, Calcium 9.3, Total Bilirubin 1.4 H, AST 32, ALT 16, Alkaline Phosphatase 216 H, Troponin I 0.02, NT-Pro-B Natriuret Pep 4650 H, Total Protein 8.2, Albumin 4.2, Globulin 4.0 H, Albumin/Globulin Ratio 1.1, TSH 25.00 H, Thyroxine (T4) 6.3 07/24/23 13:15 07/24/23 13:35 Orders (Tests/Meds): ED MEDICATIONS Generic Name Dose Route Start Last Admin Trade Name Freq PRN Reason Stop Dose Admin Multivitamins 10 ml/ Thiamine 1,015 mls @ 125 mls/hr 07/24/23 13:16 07/24/23 13:40 HCl 100 mg/ Magnesium Sulfate IV 07/24/23 21:23 125 mls/hr 2 gm/ Lactated Ringer's ONCE ONE Administration Amiodarone HCl 900 mg/ 518 mls @ 34.533 mls/hr 07/24/23 16:38 Dextrose IV 07/25/23 07:38 .Q15H1M RYAN Protocol 1 MG/MIN Discontinued Medications Generic Name Dose Route Start Last Admin Trade Name Sarmadq PRN Reason Stop Dose Admin Aspirin 324 mg 07/24/23 13:15 07/24/23 13:47 Aspirin 81mg Chewable Tablet PO 07/24/23 13:16 324 mg ONCE ONE Administration Amiodarone HCl 150 mg/ 103 mls @ 600 mls/hr 07/24/23 16:38 Dextrose IV 07/24/23 16:48 ONCE ONE Iopamidol 70 ml 07/24/23 16:09 07/24/23 16:12 Iopamidol-370 (76%);100ml Bottle IV 07/24/23 16:10 70 ml ONCE ONE Administration Sodium Chloride 40 ml 07/24/23 16:09 07/24/23 16:11 0.9 % Sodium Chloride 50 Ml Vial IV 07/24/23 16:10 40 ml ONCE ONE Administration Sodium Chloride 10 ml 07/24/23 16:09 07/24/23 16:12 Sodium Chloride 0.9% 10ml Syr (Rad Only) IV 07/24/23 16:10 10 ml ONCE ONE Administration ORDERS Category Date Time Status CT angio chest PE protocol Stat Cat Scan 07/24/23 14:11 Taken XR chest portable Stat Exams 07/24/23 13:15 Completed Complete Blood Count Auto Diff Stat Lab 07/24/23 13:15 Completed Comprehensive Metabolic Panel Stat Lab 07/24/23 13:35 Completed D-Dimer Stat Lab 07/24/23 13:35 Completed Digoxin Stat Lab 07/24/23 13:35 Received NT Pro Brain Natriuretic Pep. Stat Lab 07/24/23 13:35 Completed T4 (Thyroxine) Stat Lab 07/24/23 13:35 Completed TSH [Thyroid Stimulating Hormone] Stat Lab 07/24/23 13:35 Completed Troponin I Q3H Lab 07/24/23 16:24 Received Troponin I Q3H Lab 07/24/23 19:30 Ordered Troponin I Stat Lab 07/24/23 13:35 Completed Medical Decision Narrative: 58-year-old male history of chronic alcohol abuse, CHF, COPD still smokes hypothyroidism presenting with tachycardia and shortness of breath. Patient was being seen in cardiology clinic just prior to this visit to the emergency department. Was receiving stress echo. Received cardiac stress medications, became tachycardic into the 160s, became short of breath and felt weak, was brought to the emergency department given persistent tachycardia. Patient states he is feeling much better on arrival to the emergency department. Not currently having symptoms. On further questioning, patient states that he does usually drink about 1/5 of hard liquor a day, has not drank in about 3 days and has not been eating or drinking much as well. No current acute complaints. Patient also states that he is supposed to be on much medications, has not been taking them all. He is not sure which medications he is taking, but regardless has not been taking any of them consistently. This is likely complicating patient's current care. History was obtained via conversation with patient and cardiology provider. On arrival, patient hemodynamically stable, alert, oriented x4, appropriate, GCS 15, moving all extremities spontaneously, pupils equal and reactive to light. Full physical exam performed and significant for chronically ill-appearing male no acute distress. Cardiopulmonary exam within normal limits other than mild tachycardia of 100 to 105 bpm. Mildly hypertensive, oxygen saturation appropriate, afebrile, neurologically intact. Differential includes metabolic disturbance, endocrinologic disturbance, dehydration, ACS, AK, pneumothorax, PE, alcohol withdrawal, among others. Patient was given Aspirin,Rally pack for symptomatic management and correction of underlying abnormalities. Workup independently interpreted and significant for Nonactionable CBC. Chemistry with VENKATESH creatinine 1.4. Mildly elevated alkaline phosphatase 216, AST and ALT within normal limits. Initial troponin negative. D-dimer elevated at 3.0. Patient unsure if he is taking his blood thinner, CT PE was ordered. Prior to CT PE being performed and finalized, care handed off to oncoming physician. Chest x-ray without acute cardiopulmonary airspace disease. No pneumothorax. See radiology read for full review of final results. Independent interpretation of EKG shows sinus tachycardia [address] or T wave changes concerning for acute ischemia in the setting of right bundle branch block morphology. GA interval 165, QRS 145, QTc 403. [place] normal. Heart score 3. Prior to CT PE and delta troponin, care handed off to oncoming physician. Patient placed in observation at time 2 PM to rule out evolving AK with delta troponins given proximity of symptoms to ED visit. Patient was placed on cardiac monitoring and receiving CT PE in the meantime. Cytology Teacher disclaimer Much of this encounter note is an electronic sprinkler installer spoken language to printed text. Electronic sprinkler installer of the spoken language may permit errors. Although I have reviewed the note, some errors may still exist. <Susie Alfrod MD - Last Filed: 07/24/23 16:52> Vital Signs: 07/24/23 12:58 07/24/23 13:30 07/24/23 14:00 Temperature 98.3 F Temperature Source Oral Pulse Rate 105 H 110 H Pulse Rate [Apical] 103 H Respiratory Rate 18 24 20 Blood Pressure 129/96 H 124/94 H Blood Pressure [Right Arm] 133/91 H Blood Pressure Mean 104 Blood Pressure Mean [Right Arm] 105 Blood Pressure Source [Right Arm] Automatic Cuff Blood Pressure Position [Right Arm] Sitting 02 Sat by Pulse Oximetry 97 97 98 Oxygen Delivery Method Room Air Room Air 07/24/23 14:30 07/24/23 15:00 07/24/23 15:30 Temperature Temperature Source Pulse Rate 103 H 149 H 101 H Pulse Rate [Apical] Respiratory Rate 22 26 H 24 Blood Pressure 124/96 H 129/94 H 126/81 Blood Pressure [Right Arm] Blood Pressure Mean Blood Pressure Mean [Right Arm] Blood Pressure Source [Right Arm] Blood Pressure Position [Right Arm] 02 Sat by Pulse Oximetry 98 97 95 Oxygen Delivery Method Room Air Room Air Room Air 07/24/23 16:30 Temperature Temperature Source Pulse Rate 144 H Pulse Rate [Apical] Respiratory Rate 26 H Blood Pressure 135/100 H Blood Pressure [Right Arm] Blood Pressure Mean Blood Pressure Mean [Right Arm] Blood Pressure Source [Right Arm] Blood Pressure Position [Right Arm] 02 Sat by Pulse Oximetry 97 Oxygen Delivery Method Room Air Lab Data Lab results reviewed: Yes I reviewed the patient's lab results. Lab Results 07/24/23 13:15: WBC 9.6, RBC 3.63 L, Hgb 11.8 L, Hct 37.5 L, MCV 103.2 H, MCH 32.5 H, MCHC 31.5 L, RDW 17.0, Plt Count 316, MPV 8.3, Neut % (Auto) 73.1, Lymph % (Auto) 17.5, Ray % (Auto) 6.1, Eos % (Auto) 2.2, Baso % (Auto) 1.2, Neut # (Auto) 7.0, Lymph # (Auto) 1.7, Ray # (Auto) 0.6, Eos # (Auto) 0.2, Baso # (Auto) 0.1 07/24/23 13:35: D-Dimer 3.02 H, Sodium 134 L, Potassium 4.0, Chloride 94 L, Carbon Dioxide 29, Anion Gap 15.0, BUN 16, Creatinine 1.40 H, Estimated Creat Clear 79, Estimated GFR 52 L, Est GFR ( Amer) 63, Glucose 103 H, Calcium 9.3, Total Bilirubin 1.4 H, AST 32, ALT 16, Alkaline Phosphatase 216 H, Troponin I 0.02, NT-Pro-B Natriuret Pep 4650 H, Total Protein 8.2, Albumin 4.2, Globulin 4.0 H, Albumin/Globulin Ratio 1.1, TSH 25.00 H, Thyroxine (T4) 6.3 Orders (Tests/Meds): ED MEDICATIONS Generic Name Dose Route Start Last Admin Trade Name Freq PRN Reason Stop Dose Admin Multivitamins 10 ml/ Thiamine 1,015 mls @ 125 mls/hr 07/24/23 13:16 07/24/23 13:40 HCl 100 mg/ Magnesium Sulfate IV 07/24/23 21:23 125 mls/hr 2 gm/ Lactated Ringer's ONCE ONE Administration Amiodarone HCl 900 mg/ 518 mls @ 34.533 mls/hr 07/24/23 16:38 Dextrose IV 07/25/23 07:38 .Q15H1M RYAN Protocol 1 MG/MIN Discontinued Medications Generic Name Dose Route Start Last Admin Trade Name Freq PRN Reason Stop Dose Admin Aspirin 324 mg 07/24/23 13:15 07/24/23 13:47 Aspirin 81mg Chewable Tablet PO 07/24/23 13:16 324 mg ONCE ONE Administration Amiodarone HCl 150 mg/ 103 mls @ 600 mls/hr 07/24/23 16:38 Dextrose IV 07/24/23 16:48 ONCE ONE Iopamidol 70 ml 07/24/23 16:09 07/24/23 16:12 Iopamidol-370 (76%);100ml Bottle IV 07/24/23 16:10 70 ml ONCE ONE Administration Sodium Chloride 40 ml 07/24/23 16:09 07/24/23 16:11 0.9 % Sodium Chloride 50 Ml Vial IV 07/24/23 16:10 40 ml ONCE ONE Administration Sodium Chloride 10 ml 07/24/23 16:09 07/24/23 16:12 Sodium Chloride 0.9% 10ml Syr (Rad Only) IV 07/24/23 16:10 10 ml ONCE ONE Administration ORDERS Category Date Time Status CT angio chest PE protocol Stat Cat Scan 07/24/23 14:11 Taken XR chest portable Stat Exams 07/24/23 13:15 Completed Complete Blood Count Auto Diff Stat Lab 07/24/23 13:15 Completed Comprehensive Metabolic Panel Stat Lab 07/24/23 13:35 Completed D-Dimer Stat Lab 07/24/23 13:35 Completed Digoxin Stat Lab 07/24/23 13:35 Received NT Pro Brain Natriuretic Pep. Stat Lab 07/24/23 13:35 Completed T4 (Thyroxine) Stat Lab 07/24/23 13:35 Completed TSH [Thyroid Stimulating Hormone] Stat Lab 07/24/23 13:35 Completed Troponin I Q3H Lab 07/24/23 16:24 Received Troponin I Q3H Lab 07/24/23 19:30 Ordered Troponin I Stat Lab 07/24/23 13:35 Completed Medical Decision Narrative: 58-year-old male history of chronic alcohol abuse, CHF, COPD still smokes hypothyroidism presenting with tachycardia and shortness of breath. Patient was being seen in cardiology clinic just prior to this visit to the emergency department. Was receiving stress echo. Received cardiac stress medications, became tachycardic into the 160s, became short of breath and felt weak, was brought to the emergency department given persistent tachycardia. Patient states he is feeling much better on arrival to the emergency department. Not currently having symptoms. On further questioning, patient states that he does usually drink about 1/5 of hard liquor a day, has not drank in about 3 days and has not been eating or drinking much as well. No current acute complaints. Patient also states that he is supposed to be on much medications, has not been taking them all. He is not sure which medications he is taking, but regardless has not been taking any of them consistently. This is likely complicating patient's current care. History was obtained via conversation with patient and cardiology provider. On arrival, patient hemodynamically stable, alert, oriented x4, appropriate, GCS 15, moving all extremities spontaneously, pupils equal and reactive to light. Full physical exam performed and significant for chronically ill-appearing male no acute distress. Cardiopulmonary exam within normal limits other than mild tachycardia of 100 to 105 bpm. Mildly hypertensive, oxygen saturation appropriate, afebrile, neurologically intact. Differential includes metabolic disturbance, endocrinologic disturbance, dehydration, ACS, [place], pneumothorax, PE, alcohol withdrawal, among others. Patient was given Aspirin,Rally pack for symptomatic management and correction of underlying abnormalities. Workup independently interpreted and significant for Nonactionable CBC. Chemistry with VENKATESH creatinine 1.4. Mildly elevated alkaline phosphatase 216, AST and ALT within normal limits. Initial troponin negative. D-dimer elevated at 3.0. Patient unsure if he is taking his blood thinner, CT PE was ordered. Prior to CT PE being performed and finalized, care handed off to oncoming physician. Chest x-ray without acute cardiopulmonary airspace disease. No pneumothorax. See radiology read for full review of final results. Independent interpretation of EKG shows sinus tachycardia [address] or T wave changes concerning for acute ischemia in the setting of right bundle branch block morphology. GA interval 165, QRS 145, QTc 403. [place] normal. Heart score 3. Prior to CT PE and delta troponin, care handed off to oncoming physician. Patient placed in observation at time 2 PM to rule out evolving AK with delta troponins given proximity of symptoms to ED visit. Patient was placed on cardiac monitoring and receiving CT PE in the meantime. Cytology Teacher disclaimer Much of this encounter note is an electronic sprinkler installer spoken language to printed text. Electronic sprinkler installer of the spoken language may permit errors. Although I have reviewed the note, some errors may still exist. Reassessment this is Dr. Alford took over from Dr. Bishop pending second troponin in the meantime patient's heart rate spontaneously went to 150. Looking at his old EKG from earlier today he had a heart rate of 173 which like like a 2-1 atrial flutter with rapid ventricular response looks very similar at this point. I reviewed his records he has an ejection fraction of 30% he is already on digoxin and amiodarone. I discussed the case with Dr. Harris who is aware of this and he agreed with putting the patient in for rate control. Bolus and infusion of amiodarone has been initiated spoke with Dr. Parra who agreed to admit the patient for further evaluation and management patient is agreeable to this plan. Patient does have a CIWA score of 0 on my assessment. Critical Care <Nathaniel Bishop MD - Last Filed: 07/24/23 14:16> Critical Care Time Critical Care Time: No <Susie Alford MD - Last Filed: 07/24/23 16:52> Critical Care Time Critical Care Time: Yes Attestation: On 07/24/23, the high probability of a clinically significant, sudden or life threatening deterioration of the following system(s) required my full and direct attention, intervention and personal management. The time I documented below is in addition to time spent performing reported procedures but includes the following listed in this critical care notation. Total Time Total Critical Care Time: 35
[2023-07-24] MEDS: MVI, ADULT NO.1 WITH VIT K 10 ML, THIAMINE HCL 100 MG, MAGNESIUM SULFATE 2 GM in LACTAT... 125 ML IV (13:40)
[2023-07-24] MEDS: ASPIRIN 81MG CHEWABLE TABLET 324 MG PO (13:47)
[2023-07-24 13:54] LABS: Alanine Aminotransferase 16 U/L (12-78); Albumin Level 4.2 g/dl (3.5-5.0); Albumin/Globulin Ratio 1.1 (1.1-1.8); Alkaline Phosphatase 216 U/L (38-126); Aspartate Amino Transferase 32 U/L (17-59); Bilirubin,Total 1.4 mg/dl (0.2-1.3); Blood Urea Nitrogen 16 mg/dl (9-20); Calcium 9.3 mg/dl (8.4-10.2); Carbon Dioxide 29 mmol/L (22.0-30.0); Chloride 94 mmol/L (98-107); Creatinine Clearance Estimated 79 mL/min (50-200); Estimated Glomerular Filt Rate 52 ml/min (>60); GFR (African American) 63 ML/MIN (>60); Glucose 103 mg/dl (74-100); Sodium 134 mmol/L (136-145); Total Protein,Serum 8.2 g/dl (6.3-8.2)
[2023-07-24 13:58] LABS: D-Dimer 3.02 ug/mL (0.0-0.5)
--- NOTE | 2023-07-24 14:01 | PC.NURSE ---
Rounded on pt to see if they had any needs. No needs at this time
[2023-07-24 14:05] LABS: NT Pro Brain Natriuretic Pep. 4650 pg/mL (0-125)
[2023-07-24 14:07] LABS: Troponin I 0.02 ng/ml (0.00-0.034)
--- NOTE | 2023-07-24 14:11 | CT_ITS ---
FINAL REPORT TECHNIQUE: Postcontrast axial images of the chest were performed in a CTA protocol. This study was performed with techniques to keep radiation doses as low as reasonably achievable, (ALARA). Individualized dose reduction technique using automated exposure control or adjustment of mA and/or kV according to the patient's size were employed. CLINICAL HISTORY: dimer, soa, tachycardua COMPARISON: 03/19/2023 FINDINGS: The heart is normal in size. There is extensive calcification of the right paratracheal and subcarinal lymph nodes. No noncalcified mass is identified. No pleural or pericardial effusion is identified. The thoracic aorta is normal in caliber with no focal aneurysm or dissection identified. There is no filling defect to suggest pulmonary embolism. No lung infiltrate or mass is identified. There are calcified granulomas in the left upper lobe and within the spleen. The images of the upper abdomen are otherwise unremarkable. IMPRESSION: No evidence for PE on this exam. Reviewed, Interpreted and Dictated by Nathanael Knowles MD Transcribed by Gisell De Authenticated and . [facility]
[2023-07-24 14:12] LABS: T4 (Thyroxine) 6.3 ug/dl (5.53-11.0)
[2023-07-24] MEDS: 0.9 % SODIUM CHLORIDE 50 ML VIAL 40 ML IV (16:11)
[2023-07-24] MEDS: SODIUM CHLORIDE 0.9% 10ML SYR (RAD ONLY) 10 ML IV (16:12)
[2023-07-24] MEDS: IOPAMIDOL-370 (76%);100ML BOTTLE 70 ML IV (16:12)
--- NOTE | 2023-07-24 16:15 | PC.NURSE ---
PT RETURNED FROM CT
--- NOTE | 2023-07-24 16:41 | PC.NURSE ---
DR RESENDEZ SPEAKING WITH DR RANGEL FOR ADMISSION
--- NOTE | 2023-07-24 16:44 | PC.NURSE ---
DR RESENDEZ SPEAKING WITH DR MELARA
--- NOTE | 2023-07-24 16:55 | CA_ITS ---
APPROVED REPORT EXAM: Limited 2D Echocardiogram [employer]: Jasmin Rondon RT(R) Ht: 6 ft 1 in Wt: 213lbs BSA: 2.21 BP: 124/94 mmHg Indications: Patient was having a nuclear stress test when he became tachycardia rate in 170s and sent to ER, COPD, smoker, SOB, chronic alcohol abuse, CHF, noncompliant with medications, RBBB, EF 06/25/23=30%, AFIB, history of ablation x 2 and cardioversion M-Mode Dimensions RVDd 3.50 cm (0.9-2.6) LVDd 4.79 cm (3.5-5.7) LVDs 4.06 cm (3.5-5.7) IVSd 1.05 cm (0.6-1.1) PWd 0.60 cm (0.6-1.1) EF (Teich) 32.20% FS 15.20% EDV (Teich) 107.00 mL ESV (Teich) 72.50 mL Other Information Study Quality: Technically Difficult Conclusion This is a limited TTE to evaluate for LVEF in the setting of tachycardia. Limited windows were obtained. Technically difficult study. The LV systolic function is normal. There is increased LV wall thickness. The LV systolic function is hyperdynamic. There are no regional wall motion abnormalities noted. LVEF is 70%. The right ventricle is severely dilated. There is moderate to severe hypokinesis of the right ventricle. Electronically signed by : Adenike Garcia MD 07/25/2023 02:07:07
--- NOTE | 2023-07-24 16:58 | EXP.HP ---
History of Present Illness *Admission Date: 07/24/23 *Reason for visit:: Hypertension, tachycardia *History of present illness: Is a 58-year-old male with history of chronic alcoholism, heart failure with reduced ejection fraction, COPD, nicotine use, who is presenting as an outpatient for cardiology eval. Presented for stress test, was found to be tachycardic and hypertensive. Received a dose of metoprolol and tachycardia worsened. Was sent to the ER for evaluation. Patient denies feeling his heart racing or feeling dizzy. Cough at baseline. Afebrile. No nausea or vomiting. Denies any confusion. States he drinks at least a pint daily. Last drink 4 days ago. Denies any withdrawal symptoms or history of seizures. EKG obtained showing A-fib/a flutter. On evaluation in the ER, patient found to be tachycardic above 100. Mildly hypertensive. Normal saturations on room air. Concern for A-fib with RVR. Labs showed CKD with creatinine 1.6, BUN normal. TSH elevated 25. Given his tachyarrhythmia, medicine was consulted for admission. Patient started on amiodarone drip in the ER. Cardiology was consulted and recommended admission with rate control and evaluation in the morning. On arrival to the floor, patient complains mainly of right leg pain that is longstanding from his previous surgeries. Denies any chest pain or shortness of breath. Denies any withdrawal symptoms. Has been mild tremor which he states is baseline. No confusion. Last drink 4 days ago. Pleasant and interactive. [facility] Disclaimer: The information contained in this section may have been updated after the patient was seen, as this information can be updated by other users. 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 Testicular swelling, right Hypertension Tobacco abuse Alcohol abuse Tobacco use Paroxysmal atrial fibrillation Alcoholism Anxiety GERD (gastroesophageal reflux disease) Laceration of finger, left, complicated COPD (chronic obstructive pulmonary disease) Pulmonary hypertension Cirrhosis, alcoholic CHF (congestive heart failure) Hypertension Atrial fibrillation with rapid ventricular response Exposure to COVID-19 virus Surgical History History of discectomy History of cardiac radiofrequency ablation Family History Other Cancer Hypertension Stroke Substance abuse Social History Smoking Status: Current every day smoker tobacco type: cigarettes packs per day: 2 alcohol intake: current alcohol intake frequency: 3 or more drinks per day substance use type: denies use current occupational status: employed Travel in the last 8 weeks: None household members: significant other housing: house 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 current occupational exposures/hazards: No caffeine: Yes Review of Systems Review of Systems Review of systems (narrative): 14 point review of systems performed, pertinent positives and negatives as per [facility] Meds Home Medications and Allergies Home Medications Medication Instructions Recorded Confirmed Type digoxin 250 mcg (0.25 mg) tablet 250 mcg PO DAILY #30 tabs 03/28/23 07/16/23 Rx sacubitril 24 mg-valsartan 26 mg 1 tab PO BID #60 tabs 03/28/23 07/16/23 Rx tablet (Entresto) spironolactone 25 mg tablet 25 mg PO DAILY #30 tabs 03/28/23 07/16/23 Rx (Aldactone) amiodarone 200 mg tablet 200 mg PO DAILY 06/16/23 07/16/23 History apixaban 5 mg tablet 5 mg PO BID 06/16/23 07/16/23 History empagliflozin 10 mg tablet 10 mg PO DAILY #30 tabs 06/16/23 07/16/23 Rx (Jardiance) metoprolol succinate 50 mg 50 mg PO DAILY #30 tabs 06/16/23 07/16/23 Rx tablet,extended release 24 hr (Toprol XL) sertraline 100 mg tablet 100 mg PO DAILY 06/16/23 07/16/23 History New Prescriptions to Start Prescriptions: Allergies Allergy/AdvReac Type Severity Reaction Status Date / Time hydrochlorothiazide AdvReac Unknown Other Verified 07/16/23 15:07 Exam Data for Last 24 hours Vital signs and Labs for Last 24 Hours: Temp Pulse Resp BP Pulse Ox O2 Del Method 98.3 F 144 H 26 H 135/100 H 97 Room Air 07/24/23 12:58 07/24/23 16:30 07/24/23 16:30 07/24/23 16:30 07/24/23 16:30 07/24/23 16:30 Laboratory Results - last 24 hr 07/24/23 13:15: WBC 9.6, RBC 3.63 L, Hgb 11.8 L, Hct 37.5 L, MCV 103.2 H, MCH 32.5 H, MCHC 31.5 L, RDW 17.0, Plt Count 316, MPV 8.3, Neut % (Auto) 73.1, Lymph % (Auto) 17.5, [place] % (Auto) 6.1, Eos % (Auto) 2.2, Baso % (Auto) 1.2, Neut # (Auto) 7.0, Lymph # (Auto) 1.7, [place] # (Auto) 0.6, Eos # (Auto) 0.2, Baso # (Auto) 0.1 07/24/23 13:35: D-Dimer 3.02 H, Sodium 134 L, Potassium 4.0, Chloride 94 L, Carbon Dioxide 29, Anion Gap 15.0, BUN 16, Creatinine 1.40 H, Estimated Creat Clear 79, Estimated GFR 52 L, Est GFR ( Amer) 63, Glucose 103 H, Calcium 9.3, Total Bilirubin 1.4 H, AST 32, ALT 16, Alkaline Phosphatase 216 H, Troponin I 0.02, NT-Pro-B Natriuret Pep 4650 H, Total Protein 8.2, Albumin 4.2, Globulin 4.0 H, Albumin/Globulin Ratio 1.1, TSH 25.00 H, Thyroxine (T4) 6.3 I & O for Last 24 hours: Intake & Output 07/21/23 07/22/23 07/23/23 07/24/23 23:59 23:59 23:59 23:59 Weight 96.615 kg Constitutional Constitutional: no acute distress *Routine HEENT Exam Head: Present normocephalic and atraumatic Eye: Present EOMI and PERRL ENT: Present mucous membranes dry *Routine Neck Exam Neck: Present supple and full ROM *Routine Respiratory Exam Respiratory: Present prolonged expiratory phase, rhonchi (Clear with cough) and normal respiratory effort; Absent wheezes *Routine Cardiovascular Exam Cardiovascular: Present tachycardia and irregularly irregular *Routine Abdominal Exam Abdominal: Present soft, normoactive bowel sounds and distended; Absent tenderness *Routine Rectal Exam Rectal:: deferred *Routine Genitalia Exam Genitalia:: deferred *Routine Extremities Exam Extremities: Present edema (Of scrotum and feet) *Routine Skin Exam Skin: Present intact and erythema (both lower legs) *Routine Neurological Exam Neurological: Present alert, oriented X3 and tremors Assessment and Plan *Assessment and plan (1) Atrial flutter with rapid ventricular response: Status: Acute Category: Medical Code(s): I48.92 - Unspecified atrial flutter (2) HFrEF (heart failure with reduced ejection fraction): Status: Acute Category: Medical Code(s): I50.20 - Unspecified systolic (congestive) heart failure (3) Cardiomyopathy: Status: Acute Qualifiers: Cardiomyopathy type: unspecified Qualified Code(s): I42.9 - Cardiomyopathy, unspecified Category: Medical Code(s): I42.9 - Cardiomyopathy, unspecified (4) Tobacco use: Status: Acute Category: Social Hx Code(s): Z72.0 - Tobacco use (5) Alcoholism: Status: Acute Category: Medical Code(s): F10.20 - Alcohol dependence, uncomplicated (6) COPD (chronic obstructive pulmonary disease): Status: Chronic Qualifiers: COPD type: unspecified COPD Qualified Code(s): J44.9 - Chronic obstructive pulmonary disease, unspecified Category: Medical Code(s): J44.9 - Chronic obstructive pulmonary disease, unspecified (7) Hypertension: Status: Chronic Qualifiers: Hypertension type: unspecified Qualified Code(s): I10 - Essential (primary) hypertension Category: Medical Code(s): I10 - Essential (primary) hypertension (8) Anxiety: Status: Acute Category: Medical Code(s): F41.9 - Anxiety disorder, unspecified (9) GERD (gastroesophageal reflux disease): Status: Acute Qualifiers: Esophagitis presence: esophagitis presence not specified Qualified Code(s): K21.9 - Gastro-esophageal reflux disease without esophagitis Category: Medical Code(s): K21.9 - Gastro-esophageal reflux disease without esophagitis (10) Hypothyroidism: Status: Chronic Category: Medical Code(s): E03.9 - Hypothyroidism, unspecified Plan 58-year-old male with history of a flutter, alcohol dependence, heart failure reduced ejection fraction, who presented to the ER with tachycardia and hypertension at the request of cardiology. Found to be in A-fib with RVR. ER requested admission for amiodarone drip and further treatment of his a flutter with RVR. Medicine agreed to admit. Problems addressed as follows: A flutter with RVR Heart failure with reduced ejection fraction -Patient tachycardic with rate uncontrolled. Initiated on amiodarone drip. Will continue overnight. -Resume oral amiodarone 200 mg increased to twice daily -Resume digoxin 250 mcg daily -Continue Eliquis 5 mg twice daily -Resume Entresto 24/26 mg twice daily -Continue metoprolol succinate 50 mg daily -Continue spironolactone 25 mg daily -BNP elevated in the ER at 4600, to address overload, initiate Lasix 80 mg IV once -Continue empagliflozin 10 mg daily -Cardiology consulted, appreciate their recommendations. Alcohol dependence: Last drink 4 days ago, mild tremor, baseline per patient. No indication for benzodiazepine therapy at this time. Multivitamin with thiamine Continue Zoloft 100 mg daily for mood disorder Significant back pain and leg pain from previous surgeries, oxycodone 5 mg every 6 hours as needed for breakthrough pain CBC, CMP, magnesium ordered for the morning CKD 3 appears at baseline with creatinine 1.4 Hypothyroid: TSH 25. Initiate levothyroxine 100 mcg daily. Will administer 100 mcg IV x 1 on admission. Full code Cardiac diet Eliquis twice daily
[2023-07-24 16:59] LABS: Troponin I 0.01 ng/ml (0.00-0.034)
[2023-07-24] MEDS: AMIODARONE HCL 150 MG in DEXTROSE 5 % IN WATER 100 ML 600 MG IV (17:20)
[2023-07-24 17:37] LABS: Digoxin < 0.40 ng/ml (0.2-2.00)
[2023-07-24] MEDS: AMIODARONE HCL 900 MG in DEXTROSE 5 % IN WATER 500 ML 34.5300000000000011 MG IV (17:42)
--- NOTE | 2023-07-24 17:49 | PC.NURSE ---
HAZMAT TANKER DRIVER NOTIFIED OF ADMISSION
--- OUTSIDE RECORDS SUMMARY | 2023-07-24 17:54 | XMS_ITS | Clinical Summary ---
Author Name Unknown Address [address] [place] [address] Phone Organization [facility] Address [address] [place] [address] Phone Care Team Providers Care Pet Caretaker Name Role Phone Robbin VELAZCO, Charli Vale Primary Care Provider [phone] Reason for Visit and Chief Complaint The Chief Complaint is: Right hip pain Problems Includes: Problems addressed during this encounter and other active Problems Current Visit Onset Date Resolved Date Provider José gil Status Joint Pain in the Right Hip 07/14/2023 Maddy Malone PA-C Active Last Documented On 4 3:08PM ; [facility], [facility] Plan of Treatment He will continue rehab. He understands his restrictions we will see him back as scheduled no further questions - Last Documented On 07/17/2023 9:30AM ; [facility], [facility] Future Appointments Date Time Location Provi giorgio Follow Up 10/14/2023 1:15PM [facility] paedics [facility] B Maddy Malone PA-C Last Documented On 4 3:26PM ; [facility], [facility] Instructions to patient Lose weight Last Documented On 4 3:12PM ; [facility], [facility] Assessments Includes: Assessments from this encounter Findings - Overweight - Last Documented On 07/17/2023 9:30AM ; [facility], [facility] Right hip ORIF - Last Documented On 07/17/2023 9:30AM ; [facility], [facility] Instructions Includes: Instructions from this encounter Instructions to patient Lose weight Last Documented On 4 3:12PM ; [facility], [facility] Medical Equipment - Implanted Devices Includes: Current Devices No Medical Equipment Recorded Medications Includes: Medications discussed during this encounter and other current Medications New / Renewed during this visit Lamin Dixon MD on 07/14/2023 HYDROcodone-Acetaminophen 5- 325 MG Oral Tablet Provider: Lamin Dixon MD 7 day supply: 21 tablet, 0 refills Diagnosis: three times a day Pharmacy: [address] [place], [id number] - Last Documented On 4 3:59PM By Lamin Dixon ; [facility], [facility] Current Medications (continue as prescribed) Eliquis 5 MG Oral Tablet 07/08/2023 Provider: Diagnosis: Last Documented On 4 3:08PM By Kaitlin Christensen ; [facility], [facility] Folic Acid 1 MG Oral Tablet 07/08/2023 Provider: Diagnosis: Last Documented On 4 3:08PM By Kaitlin Christensen ; [facility], [facility] Levothyroxine Sodium 75 MCG Oral Tablet 07/08/2023 P rorozder: Diagnosis: Last Documented On 4 3:08PM By Kaitlin Christensen ; [facility], [facility] Methocarbamol 500 MG Oral Tablet 07/08/2023 Provider : Diagnosis: Last Documented On 4 3:08PM By Kaitlin Christensen ; [facility], [facility] oxyCODONE HCl 5 MG Oral Tablet 07/08/2023 Provider: Diagnosis: Last Documented On 4 3:08PM By Kaitlin Christensen ; [facility], [facility] Thiamine HCl 100 MG Oral Tablet 07/08/2023 Provider: Diagnosis: Last Documented On 4 3:08PM By Kaitlin Christensen ; [facility], [facility] Bumetanide 1 MG Oral Tablet 07/08/2023 Provider: Diagnosis: Last Documented On 4 3:08PM By Kaitlin Christensen ; [facility], [facility] Jardiance 10 MG Oral Tablet 06/24/2023 Provider: Diagnosis: Last Documented On 4 3:08PM By Kaitlin Christensen ; [facility], [facility] Amiodarone HCl 200 MG Oral Tablet 06/17/2023 Provide r: ERASMO TANRAMAKRISHNA Diagnosis: Last Documented On 4 3:08PM By Kaitlin Christensen ; [facility], [facility] Digoxin 250 MCG Oral Tablet 06/17/2023 Provider: ERASMO MURRAY Diagnosis: Last Documented On 4 3:08PM By Kaitlin Christensen ; [facility], [facility] Entresto 24-26 MG Oral Tablet 06/17/2023 Provider: ERASMO MURRAY Diagnosis: Last Documented On 4 3:08PM By Kaitlin Christensen ; [facility], [facility] Spironolactone 25 MG Oral Tablet 06/17/2023 Provider : JAIME MCKINNEY MD Diagnosis: Last Documented On 4 3:08PM By Kaitlin Christensen ; [facility], [facility] Metoprolol Succinate ER 50 M G Oral Tablet Extended Release 24 Hour 06/16/2023 Provider: Diagnosis: Last Documented On 4 3:08PM By Kaitlin Christensen ; [facility] Medications Administered Includes: Administered Medications from this encounter No Administered Medications Recorded Vital Signs Includes: Vital Signs from this encounter Vital Name 07/14/2023 03:09P Height (in) 72 Weight (lb) 210 Body Mass Index 28.5 Body Surface Area 2.2 Note: hdv Last Documented: On 07/14/2023 3:33PM ; [facility], [facility] Results Includes: Results discussed during this [...] Last Documented On 4 9:30AM ; [facility], [facility] Caffeine use 07/14/2023 Last Documented On 4 9:30AM ; [facility] No recent change in diet 07/14/2023 Last Documented On 4 9:30AM ; [facility] Not exercising regularly 07/14/2023 Last Documented On 4 9:30AM ; [facility] Not using drugs 07/14/2023 Last Documented On 4 9:30AM ; [facility] Yes, current smoker. 07/14/2023 Last Documented On 4 9:30AM ; [facility] Smoking Status Unknown Procedures and Surgical History Includes: Procedures from this encounter Procedures Code Diagnosis Performing Provider Service Location Service Date PELVIS w/ 2-3 VIEW HIP (RIGHT) 99419 Displaced intertrochanteric fracture of right femur, init Maddy Malone PA-C [facility] B 07/14/2023 Last Documented On 4 1:48PM ; [facility] an X-ray was performed [id number] Last Documented On 4 3:34PM ; [facility] Surgical History Last Updated History of back surgery 07/14/2023 Last Documented On 4 9:30AM ; [facility] History of Previous Fractures 07/14/2023 Last Documented On 4 9:30AM ; [facility] Medical History Includes: Medical History addressed during this encounter Description Last Updated History of Fractures 07/14/2023 Last Documented On 4 9:30AM ; [facility] History of Hypertension 07/14/2023 Last Documented On 4 9:30AM ; [facility] History of Irregular Heartbeat 4 Last Documented On 4 9:30AM ; [facility] Family History Includes: Family History addressed during this encounter Description Last Updated No significant family history 07/14/2023 Last Documented On 4 9:30AM ; [facility] Review of Systems Includes: Review of Systems [...] Time Diagnosis Post Op Maddy Malone PA-C [facility] 4 2:10PM 3:16PM Overweight Insurance Includes: Active Insurance Policies Plan Name Member ID Group # Subscriber Relationship Effect laura Dates 1 - [facility] [id number] Alonso Vale Dylan Self Clinical Notes Includes: Clinical Notes from this encounter * Progress note Date Encounter Last Documented by 07/14/2023 Post Op Last documented on 07/17/2023; 9:30 AM, Maddy Malone PA-C; [facility], [facility] Active Problems & Conditions - Joint [...]
--- OUTSIDE RECORDS SUMMARY | 2023-07-24 17:54 | XMS_ITS ---
Care Plan - [facility] Created on: July 24, 2023 Alonso Richardson : 1965 Sex: Male Author Name Unknown Address [address] [place] [address] [place] [address] Phone Organization [facility] Address [address] [address] Phone Care Team Providers Care Admin Prog Coord Name Role Phone Robbin VELAZCO, Charli Vale Primary Care Provider [phone]
--- OUTSIDE RECORDS SUMMARY | 2023-07-24 17:54 | XMS_ITS ---
Author Name Unknown Address [address] [place] [address] Phone Organization [facility] Address [address] [place] [address] Phone Care Team Providers Care Dynamo Tender Name Role Phone Robbin VELAZCO, Charli Vale Primary Care Provider [phone] Problems Includes: Active, inactive, and resolved Problems All Visits Onset Date Resolved Date Provider Condition S tatus Joint Pain in the Right Hip 07/14/2023 Maddy Malone PA-C Active Last Documented On 4 3:08PM ; [facility] Plan of Treatment Future Appointments Date Time Location Provi giorgio Follow Up 10/14/2023 1:15[facility] Last Documented On 4 3:26PM ; [facility] Instructions to patient Lose weight Last Documented On 4 3:12PM ; [facility] Assessments Includes: Assessments for all patient encounters Findings Encounter Date Overweight Post Op with Maddy Malone PA-C 07/14/2023 Last Documented On 4 9:30AM ; [facility] Instructions Includes: Instructions for all patient encounters Instructions to patient Lose weight Last Documented On 4 3:12PM ; [facility] Medical Equipment - Implanted Devices Includes: Current and historical Devices No Medical Equipment Recorded Medications Includes: Current and historical Medications Current Medications (continue as prescribed) Eliquis 5 MG Oral Tablet 07/08/2023 Provider: Diagnosis: Last Documented On 4 3:08PM By Kaitlin Christensen ; [facility] Folic Acid 1 MG Oral Tablet 07/08/2023 Provider: Diagnosis: Last Documented On 4 3:08PM By Kaitlin Christensen ; [facility] Levothyroxine Sodium 75 MCG Oral Tablet 07/08/2023 P kelsider: Diagnosis: Last Documented On 4 3:08PM By Kaitlin Christensen ; [facility] Methocarbamol 500 MG Oral Tablet 07/08/2023 Provider : Diagnosis: Last Documented On 4 3:08PM By Kaitlin Christensen ; [facility] oxyCODONE HCl 5 MG Oral Tablet 07/08/2023 Provider: Diagnosis: Last Documented On 4 3:08PM By Kaitlin Christensen ; [facility] Thiamine HCl 100 MG Oral Tablet 07/08/2023 Provider: Diagnosis: Last Documented On 4 3:08PM By Kaitlin Christensen ; [facility] Bumetanide 1 MG Oral Tablet 07/08/2023 Provider: Diagnosis: Last Documented On 4 3:08PM By Kaitlin Christensen ; [facility] Jardiance 10 MG Oral Tablet 06/24/2023 Provider: Diagnosis: Last Documented On 4 3:08PM By Kaitlin Christensen ; [facility] Amiodarone HCl 200 MG Oral Tablet 06/17/2023 Provide r: ERASMO MURRAY Diagnosis: Last Documented On 4 3:08PM By Kaitlin Christensen ; [facility] Digoxin 250 MCG Oral Tablet 06/17/2023 Provider: ERASMO MURRAY Diagnosis: Last Documented On 4 3:08PM By Kaitlin Christensen ; [facility] Entresto 24-26 MG Oral Tablet 06/17/2023 Provider: ERASMO MURRAY Diagnosis: Last Documented On 4 3:08PM By Kaitlin Christensen ; [facility] Spironolactone 25 MG Oral Tablet [...] 07/14/2023 Last Documented On 4 9:30AM ; [facility] Caffeine use 07/14/2023 Last Documented On 4 9:30AM ; [facility] No recent change in diet 07/14/2023 Last Documented On 4 9:30AM ; [facility] Not exercising regularly 07/14/2023 Last Documented On 4 9:30AM ; [facility] Not using drugs 07/14/2023 Last Documented On 4 9:30AM ; [facility] Yes, current smoker. 07/14/2023 Last Documented On 4 9:30AM ; [facility] Smoking Status Unknown Procedures and Surgical History Includes: Procedures from 07/23/2022 through 07/24/2023 Procedures Code Diagnosis Performing Provider Service Location Service Date PELVIS w/ 2-3 VIEW HIP (RIGHT) 23379 Displaced intertrochanteric fracture of right femur, init Maddy Malone PA-C [facility] B 07/14/2023 Last Documented On 4 1:48PM ; [facility] TREAT THIGH FRACTURE (RIGHT) 49173 Displaced intertrochanteric fracture of right femur, init Lamin Dixon MD [facility] 06/07/2023 Last Documented On 4 12:30PM ; [facility] Surgical History Last Updated History of back surgery 07/14/2023 Last Documented On 4 9:30AM ; [facility] History of Previous Fractures 07/14/2023 Last Documented On 4 9:30AM ; [facility] Medical History Includes: Medical History in patient's chart Description Last Updated History of Fractures 07/14/2023 Last Documented On 4 9:30AM ; [facility] History of Hypertension 07/14/2023 Last Documented On 4 9:30AM ; [facility] History of Irregular Heartbeat 4 Last Documented On 4 9:30AM ; [facility] Family History Includes: Family History in patient's chart Description Last Updated No significant family history 07/14/2023 Last Documented On 4 9:30AM ; [facility] Review of Systems Review of Systems not [...] Time Diagnosis Post Op Maddy Malone PA-C [facility] B 07/14/19 24 2:10PM 3:16PM Overweight Consult Lamin Dixon MD [facility] 06/27/19 24 09/15/2009 12:22PM 09/15/2009 11:59PM [facility] Lamin Dixon MD [facility] 06/07/19 24 09/15/2009 12:27PM 09/15/2009 11:59PM Insurance Includes: Active Insurance Policies Plan Name Member ID Group # Subscriber Relationship Effect laura Dates 1 - [facility] [id number] Alonso Richardson Self Clinical Notes Includes: Signed Clinical Notes starting from 02/14/2022 * Progress note Date Encounter Last Documented by 07/14/2023 Post Op Last documented on 07/17/2023; 9:30 AM, Maddy Malone PA-C; [facility] Active Problems & Conditions - [...]
--- OUTSIDE RECORDS SUMMARY | 2023-07-24 17:54 | XMS_ITS | Clinical Summary ---
Author Name Unknown Address [address] [place] [address] [place] [address] Phone Organization [facility] Address [address] [place] [address] Phone Care Team Providers Care Butt Welder Name Role Phone Robbin VELAZCO, Charli Vale Primary Care Provider [phone] Reason for Visit and Chief Complaint Consult Problems Includes: Problems addressed during this encounter and other active Problems All Visits Onset Date Resolved Date Provider Condition S tatus Joint Pain in the Right Hip 07/14/2023 Maddy Malone PA-C Active Last Documented On 4 3:08PM ; [facility] Plan of Treatment Future Appointments Date Time Location Provi giorgio Follow Up 10/14/2023 1:15PM [facility] paedics [facility] B Maddy Malone PA-C Last Documented On 4 3:26PM ; [facility] Assessments Includes: Assessments from this encounter No Assessments Recorded Medical Equipment - Implanted Devices Includes: Current Devices No Medical Equipment Recorded Medications Includes: Medications discussed during this encounter and other current Medications Current Medications (continue as prescribed) Eliquis 5 MG Oral Tablet 07/08/2023 Provider: Diagnosis: Last Documented On 4 3:08PM By Kaitlin Christensen ; [facility] Folic Acid 1 MG Oral Tablet 07/08/2023 Provider: Diagnosis: Last Documented On 4 3:08PM By Kaitlin Christensen ; [facility] Levothyroxine Sodium 75 MCG Oral Tablet 07/08/2023 Cris dolander: Diagnosis: Last Documented On 4 3:08PM By Kaitlin Christensen ; [facility] Methocarbamol 500 MG Oral Tablet 07/08/2023 Provider : Diagnosis: Last Documented On 4 3:08PM By Kaitlin Christensen ; [facility] oxyCODONE HCl 5 MG Oral Tablet 07/08/2023 Provider: Diagnosis: Last Documented On 4 3:08PM By Kaitlin Christensen ; [facility] Thiamine HCl 100 MG Oral Tablet 07/08/2023 Provider: Diagnosis: Last Documented On 4 3:08PM By Kaitlin Christensen ; [facility] Bumetanide 1 MG Oral Tablet 07/08/2023 Provider: Diagnosis: Last Documented On 4 3:08PM By Kaitlin Christensen ; [facility] Jardiance 10 MG Oral Tablet 06/24/2023 Provider: Diagnosis: Last Documented On 4 3:08PM By Kaitlin Christensen ; [facility] Amiodarone HCl 200 MG Oral Tablet 06/17/2023 Provide r: ERASMOARIANA TANRAMAKRISHNA Diagnosis: Last Documented On 4 3:08PM By Kaitlin Christensen ; [facility] Digoxin 250 MCG Oral Tablet 06/17/2023 Provider: ERASMO MURRAY Diagnosis: Last Documented On 4 3:08PM By Kiatlin Christensen ; [facility] Entresto 24-26 MG Oral Tablet 06/17/2023 Provider: ERASMO MURRAY Diagnosis: Last Documented On 4 3:08PM By Kaitlin Christensen ; [facility] Spironolactone 25 MG Oral Tablet 06/17/2023 Provider : JAIME MCKINNEY MD Diagnosis: Last Documented On 4 3:08PM By Kaitlin Christensen ; [facility] Metoprolol Succinate ER 50 M G Oral Tablet Extended Release 24 Hour 06/16/2023 Provider: Diagnosis: Last Documented On 4 3:08PM By Kaitlin Christensen ; [facility] Medications Administered Includes: Administered Medications [...] Check-Out Time Diagnosis Consult Lamin Dixon MD [facility] 4 12:22PM 11:59PM Insurance Includes: Active Insurance Policies Plan Name Member ID Group # Subscriber Relationship Effect laura Dates 1 - [facility] Health Plan [id number] Alonso Richardson Self Clinical Notes Includes: Clinical Notes from this encounter No Clinical Notes Recorded
--- OUTSIDE RECORDS SUMMARY | 2023-07-24 17:55 | XMS_ITS | Clinical Summary ---
Author Name Unknown Address [address] [place] [address] [place] [address] Phone Organization [facility] Address [address] [place] [address] Phone Care Team Providers Care Cargo Broker Name Role Phone Robbin VELAZCO, Charli Vale Primary Care Provider [phone] Reason for Visit and Chief Complaint [facility] Problems Includes: Problems addressed during this encounter and other active Problems All Visits Onset Date Resolved Date Provider Condition S tatus Joint Pain in the Right Hip 07/14/2023 Maddy Malone PA-C Active Last Documented On 4 3:08PM ; [facility] Plan of Treatment Future Appointments Date Time Location Provi giorgio Follow Up 10/14/2023 1:15PM [facility] paedics [facility] B Maddy Malone PA-C Last Documented On 4 3:26PM ; [facility] Assessments Includes: Assessments from this encounter No Assessments Recorded Medical Equipment - Implanted Devices Includes: Current Devices No Medical Equipment Recorded Medications Includes: Medications discussed during this encounter and other current Medications Current Medications (continue as prescribed) Eliquis 5 MG Oral Tablet 07/08/2023 Provider: Diagnosis: Last Documented On 4 3:08PM By Kaitlin Christensen ; [facility] Folic Acid 1 MG Oral Tablet 07/08/2023 Provider: Diagnosis: Last Documented On 4 3:08PM By Kaitlin Christensen ; [facility] Levothyroxine Sodium 75 MCG Oral Tablet 07/08/2023 P rovider: Diagnosis: Last Documented On 4 3:08PM By Kaitlin Christensen ; [facility] Methocarbamol 500 MG Oral Tablet 07/08/2023 Provider : Diagnosis: Last Documented On 4 3:08PM By Kaitlin Christensen ; [facility] oxyCODONE HCl 5 MG Oral Tablet 07/08/2023 Provider: Diagnosis: Last Documented On 4 3:08PM By Kaitlin Christensen ; [facility] Thiamine HCl 100 MG Oral Tablet 07/08/2023 Provider: Diagnosis: Last Documented On 4 3:08PM By Kaitlin Christensen ; [facility] Bumetanide 1 MG Oral Tablet 07/08/2023 Provider: Diagnosis: Last Documented On 4 3:08PM By Kaitlin Christensen ; [facility] Jardiance 10 MG Oral Tablet 06/24/2023 Provider: Diagnosis: Last Documented On 4 3:08PM By Kaitlin Christensen ; [facility] Amiodarone HCl 200 MG Oral Tablet 06/17/2023 Provide r: ERASMO TREVOR Diagnosis: Last Documented On 4 3:08PM By Kaitlin Christensen ; [facility] Digoxin 250 MCG Oral Tablet 06/17/2023 Provider: ERASMO MURRAY Diagnosis: Last Documented On 4 3:08PM By Kaitlin Christensen ; [facility], [facility] Entresto 24-26 MG Oral Tablet 06/17/2023 Provider: ERASMO MURRAY Diagnosis: Last Documented On 4 3:08PM By Kaitlin Christensen ; [facility] Spironolactone 25 MG Oral Tablet 06/17/2023 Provider : JAIME MCKINNEY MD Diagnosis: Last Documented On 4 3:08PM By Kaitlin Christensen ; [facility], [facility] Metoprolol Succinate ER 50 M G Oral Tablet Extended Release 24 Hour 06/16/2023 Provider: Diagnosis: Last Documented On 4 3:08PM By Kaitlin Christensen ; [facility], [facility] Medications Administered Includes: Administered Medications [...] Location Service Date TREAT THIGH FRACTURE (RIGHT) 40423 Displaced intertrochanteric fracture of right femur, init Lamin Dixon MD [facility] 06/07/2023 Last Documented On 4 12:30PM ; [facility] Medical History Includes: Medical History addressed [...] Location Date Check-In Time Check-Out Time Diagnosis [facility] Lamin Dixon MD [facility] 4 12:27PM 11:59PM Insurance Includes: Active Insurance Policies Plan Name Member ID Group # Subscriber Relationship Effect laura Dates - [facility] [id number] Alonso Palma Clinical Notes Includes: Clinical Notes from this encounter No Clinical Notes Recorded
--- OUTSIDE RECORDS SUMMARY | 2023-07-24 17:55 | XMS_ITS | Clinical Summary ---
Author Name Unknown Address [address] [place] [address] [place] [address] Phone Organization [facility] Address [address] [place] [address] Phone Care Team Providers Care Silver Solderer Name Role Phone Robbin VELAZCO, Charli Vale Primary Care Provider [phone] Reason for Visit and Chief Complaint WC FOLLOW UP/EST Problems Includes: Problems addressed during this encounter and other active Problems All Visits Onset Date Resolved Date Provider Condition S tatus Joint Pain in the Right Hip 07/14/2023 Maddy Malone PA-C Active Last Documented On 4 3:08PM ; [facility], [facility] Plan of Treatment Future Appointments Date Time Location Provi giorgio Follow Up 10/14/2023 1:15PM [facility] paedics [facility] B Maddy Malone PA-C Last Documented On 4 3:26PM ; [facility] Assessments Includes: Assessments from this encounter No Assessments Recorded Medical Equipment - Implanted Devices Includes: Current Devices No Medical Equipment Recorded Medications Includes: Medications discussed during this encounter and other current Medications Current Medications (continue as prescribed) Eliquis 5 MG Oral Tablet 07/08/2023 Provider: Diagnosis: Last Documented On 4 3:08PM By Kaitlin Christensen ; [facility] Folic Acid 1 MG Oral Tablet 07/08/2023 Provider: Diagnosis: Last Documented On 4 3:08PM By Kaitlin Christensen ; [facility] Levothyroxine Sodium 75 MCG Oral Tablet 07/08/2023 P rovider: Diagnosis: Last Documented On 4 3:08PM By Kaitlin Christensen ; [facility] Methocarbamol 500 MG Oral Tablet 07/08/2023 Provider : Diagnosis: Last Documented On 4 3:08PM By Kaitlin Christensen ; [facility] oxyCODONE HCl 5 MG Oral Tablet 07/08/2023 Provider: Diagnosis: Last Documented On 4 3:08PM By Kaitlin Christensen ; [facility] Thiamine HCl 100 MG Oral Tablet 07/08/2023 Provider: Diagnosis: Last Documented On 4 3:08PM By Kaitlin Christensen ; [facility] Bumetanide 1 MG Oral Tablet 07/08/2023 Provider: Diagnosis: Last Documented On 4 3:08PM By Kaitlin Christensen ; [facility] Jardiance 10 MG Oral Tablet 06/24/2023 Provider: Diagnosis: Last Documented On 4 3:08PM By Kaitlin Christensen ; [facility] Amiodarone HCl 200 MG Oral Tablet 06/17/2023 Provide r: ERASMO MURRAY Diagnosis: Last Documented On 4 3:08PM By Kaitlin Christensen ; [facility] Digoxin 250 MCG Oral Tablet 06/17/2023 Provider: ERASMO MURRAY Diagnosis: Last Documented On 4 3:08PM By Kaitlin Christensen ; [facility] Entresto 24-26 MG Oral Tablet 06/17/2023 Provider: ERASMO MURRAY Diagnosis: Last Documented On 4 3:08PM By Kaitlin Christensen ; [facility] Spironolactone 25 MG Oral Tablet 06/17/2023 Provider : JAIME MCKINNEY MD Diagnosis: Last Documented On 4 3:08PM By Kaitlin Christensen ; [facility] Metoprolol Succinate ER 50 M G Oral Tablet Extended Release 24 Hour 06/16/2023 Provider: Diagnosis: Last Documented On 4 3:08PM By Kaitlin Christensen ; [facility] Medications Administered Includes: Administered Medications [...] Diagnosis WC FOLLOW UP/EST Charli Siegel MD [facility] 10/24/19 10 8:55AM 9:54AM Insurance Includes: Active Insurance Policies Plan Name Member ID Group # Subscriber Relationship Effect laura Dates 1 - [facility] [id number] Alonso Richardson Self Clinical Notes Includes: Clinical Notes from this encounter No Clinical Notes Recorded
--- OUTSIDE RECORDS SUMMARY | 2023-07-24 17:55 | XMS_ITS | Clinical Summary ---
Author Name Unknown Address [address] [place] [address] [place] [address] Phone Organization [facility] Address [address] [place] [address] Phone Care Team Providers Care Radio Division Lieutenant Name Role Phone Robbin VELAZCO, Charli Vale Primary Care Provider [phone] Reason for Visit and Chief Complaint WC FOLLOW UP/EST Problems Includes: Problems addressed during this encounter and other active Problems All Visits Onset Date Resolved Date Provider Condition S tatus Joint Pain in the Right Hip 07/14/2023 Maddy Malone PA-C Active Last Documented On 4 3:08PM ; [facility], [facility] Plan of Treatment Future Appointments Date Time Location Provi giorgio Follow Up 10/14/2023 1:15PM [facility] paedics [facility] B Maddy Malone PA-C Last Documented On 4 3:26PM ; [facility], [facility] Assessments Includes: Assessments from this encounter No Assessments Recorded Medical Equipment - Implanted Devices Includes: Current Devices No Medical Equipment Recorded Medications Includes: Medications discussed during this encounter and other current Medications Current Medications (continue as prescribed) Eliquis 5 MG Oral Tablet 07/08/2023 Provider: Diagnosis: Last Documented On 4 3:08PM By Kaitlin Christensen ; [facility] Folic Acid 1 MG Oral Tablet 07/08/2023 Provider: Diagnosis: Last Documented On 4 3:08PM By Kaitlin Christensen ; [facility], [facility] Levothyroxine Sodium 75 MCG Oral Tablet 07/08/2023 P rovider: Diagnosis: Last Documented On 4 3:08PM By Kaitlin Christensen ; [facility], [facility] Methocarbamol 500 MG Oral Tablet 07/08/2023 Provider : Diagnosis: Last Documented On 4 3:08PM By Kaitlin Christensen ; [facility], [facility] oxyCODONE HCl 5 MG Oral Tablet 07/08/2023 Provider: Diagnosis: Last Documented On 4 3:08PM By Kaitlin Christensen ; [facility], [facility] Thiamine HCl 100 MG Oral Tablet 07/08/2023 Provider: Diagnosis: Last Documented On 4 3:08PM By Kaitlin Christensen ; [facility], [facility] Bumetanide 1 MG Oral Tablet 07/08/2023 Provider: Diagnosis: Last Documented On 4 3:08PM By Kaitlin Christensen ; [facility], [facility] Jardiance 10 MG Oral Tablet 06/24/2023 Provider: Diagnosis: Last Documented On 4 3:08PM By Kaitlin Christensen ; [facility], [facility] Amiodarone HCl 200 MG Oral Tablet 06/17/2023 Provide r: ERASMO MURRAY Diagnosis: Last Documented On 4 3:08PM By Kaitlin Christensen ; [facility], [facility] Digoxin 250 MCG Oral Tablet 06/17/2023 Provider: ERASMO MURRAY Diagnosis: Last Documented On 4 3:08PM By Kaitlin Christensen ; [facility], [facility] Entresto 24-26 MG Oral Tablet 06/17/2023 Provider: ERASMO MURRAY Diagnosis: Last Documented On 4 3:08PM By Kaitlin Christensen ; [facility], [facility] Spironolactone 25 MG Oral Tablet 06/17/2023 Provider : JAIME MCKINNEY MD Diagnosis: Last Documented On 4 3:08PM By Kaitlin Chrisetnsen ; [facility], [facility] Metoprolol Succinate ER 50 M G Oral Tablet Extended Release 24 Hour 06/16/2023 Provider: Diagnosis: Last Documented On 4 3:08PM By Kaitlin Christensen ; [facility], [facility] Medications Administered Includes: Administered Medications from this [...] UP/EST Charli Siegel MD [facility] 09/28/19 10 8:45AM 10:32AM Insurance Includes: Active Insurance Policies Plan Name Member ID Group # Subscriber Relationship Effect laura Dates 1 - [facility] [id number] Alonso Richardson Self Clinical Notes Includes: Clinical Notes from this encounter No Clinical Notes Recorded
--- NOTE | 2023-07-24 18:02 | PC.NURSE ---
report called to ricky thomas
--- NOTE | 2023-07-24 18:40 | PC.NURSE ---
pt unaware of what medications he takes, patient states he received new medication orders from [facility]
[2023-07-24] MEDS: FUROSEMIDE 40MG/4ML VIAL 80 MG IV (18:53)
[2023-07-24] MEDS: LEVOTHYROXINE SODIUM 100 MCG VIAL IV (19:11)
[2023-07-24] MEDS: HYDROCODONE/APAP 5/325 MG TABLET 1 TAB PO (19:54)
[2023-07-24 20:45] LABS: Troponin I 0.01 ng/ml (0.00-0.034)
[2023-07-24] MEDS: SACUBITRIL/VALSARTAN 24-26MG TABLET 1 EACH PO (21:01)
[2023-07-24] MEDS: APIXABAN 5MG TABLET 5 MG PO (21:01)
[2023-07-24] MEDS: AMIODARONE 200MG TABLET 200 MG PO (21:01)
[2023-07-25] VITALS (10 sets, daily range): BP systolic 102–128; BP diastolic 74–85; PULSE 84–100; RESP 17–23; TEMP 36.4–37; O2SAT 95–100; BMI 28.2
[2023-07-25] MEDS: HYDROCODONE/APAP 5/325 MG TABLET 1 TAB PO (03:05)
[2023-07-25 06:06] LABS: Basophils # 0.1 K/mm3 (0-0.2); Eosinophils # 0.2 K/mm3 (0.0-0.4); Hematocrit 36.3 % (42.0-52.0); Hemoglobin 11.6 g/dL (14.1-18.0); Lymphocytes # 1.5 K/mm3 (0.7-4.5); Lymphocytes % 21.7 % (10-50); Mean Corpuscular HGB Conc 31.8 g/dL (31.8-35.4); Mean Corpuscular Hemoglobin 32.6 pg (27.0-31.2); Mean Corpuscular Volume 102.4 fl (80-94); Mean Platelet Volume 8.3 fl (7.4-10.4); Monocytes # 0.6 K/mm3 (0.1-1.0); Monocytes % 7.9 % (1.7-9.3); Neutrophils # 4.6 K/mm3 (1.8-7.8); Neutrophils % 66.4 % (37.0-80.0); Platelet Count 280 K/mm3 (142-424); Red Blood Count 3.55 M/mm3 (4.60-6.20); Red Cell Distribution Width 17.1 % (11.5-17.5); White Blood Count 6.9 K/mm3 (4.8-10.8)
[2023-07-25 06:15] LABS: Alanine Aminotransferase 12 U/L (12-78); Albumin Level 3.5 g/dl (3.5-5.0); Albumin/Globulin Ratio 0.9 (1.1-1.8); Alkaline Phosphatase 166 U/L (38-126); Aspartate Amino Transferase 31 U/L (17-59); Bilirubin,Total 0.8 mg/dl (0.2-1.3); Blood Urea Nitrogen 20 mg/dl (9-20); Calcium 8.8 mg/dl (8.4-10.2); Carbon Dioxide 29 mmol/L (22.0-30.0); Chloride 96 mmol/L (98-107); Creatinine Clearance Estimated 85 mL/min (50-200); Estimated Glomerular Filt Rate 57 ml/min (>60); GFR (African American) 69 ML/MIN (>60); Globulin 3.8 g/dL (1.3-3.2); Glucose 146 mg/dl (74-100); Magnesium 1.5 mg/dl (1.6-2.3); Sodium 133 mmol/L (136-145); Total Protein,Serum 7.3 g/dl (6.3-8.2)
--- OUTSIDE RECORDS SUMMARY | 2023-07-25 08:16 | XMS_ITS | Clinical Summary ---
Author Name Unknown Address [address] [place] [address] [place] [address] Phone Organization [facility] , [facility] Address [address] [place] [address] Phone Care Team Providers Care Wood Bucker Name Role Phone Robbin VELAZCO, Charli Vale Primary Care Provider [phone] Reason for Visit and Chief Complaint WC FOLLOW UP/EST Problems Includes: Problems addressed during this encounter and other active Problems All Visits Onset Date Resolved Date Provider Condition S tatus Joint Pain in the Right Hip 07/14/2023 Maddy Malone PA-C Active Last Documented On 4 3:08PM ; [facility], [facility] Plan of Treatment Future Appointments Date Time Location Provi giorgio Follow Up 10/14/2023 1:15PM [facility] paedics [facility] B Maddy Malone PA-C Last Documented On 4 3:26PM ; [facility], [facility] Assessments Includes: Assessments from this encounter No Assessments Recorded Medical Equipment - Implanted Devices Includes: Current Devices No Medical Equipment Recorded Medications Includes: Medications discussed during this encounter and other current Medications Current Medications (continue as prescribed) Eliquis 5 MG Oral Tablet 07/08/2023 Provider: Diagnosis: Last Documented On 4 3:08PM By Kaitlin Christensen ; [facility], [facility] Folic Acid 1 MG Oral Tablet 07/08/2023 Provider: Diagnosis: Last Documented On 4 3:08PM By Kaitlin Christensen ; [facility], [facility] Levothyroxine Sodium 75 MCG Oral Tablet 07/08/2023 P rovider: Diagnosis: Last Documented On 4 3:08PM By Kaitlin Christensen ; [facility], [facility] Methocarbamol 500 MG Oral Tablet 07/08/2023 Provider : Diagnosis: Last Documented On 4 3:08PM By Kaitlin Christensen ; [facility] oxyCODONE HCl 5 MG Oral Tablet 07/08/2023 Provider: Diagnosis: Last Documented On 4 3:08PM By Kaitlin Christensen ; [facility] Thiamine HCl 100 MG Oral Tablet 07/08/2023 Provider: Diagnosis: Last Documented On 4 3:08PM By Kaitlin Christensen ; [facility] Bumetanide 1 MG Oral Tablet 07/08/2023 Provider: Diagnosis: Last Documented On 4 3:08PM By Kaitlin Christensen ; [facility] Jardiance 10 MG Oral Tablet 06/24/2023 Provider: Diagnosis: Last Documented On 4 3:08PM By Kaitlin Christensen ; [facility] Amiodarone HCl 200 MG Oral Tablet 06/17/2023 Provide r: ERASMO MURRAY Diagnosis: Last Documented On 4 3:08PM By Kaitlin Christensen ; [facility] Digoxin 250 MCG Oral Tablet 06/17/2023 Provider: ERASMO MURRAY Diagnosis: Last Documented On 4 3:08PM By Kaitlin Christensen ; [facility] Entresto 24-26 MG Oral Tablet 06/17/2023 Provider: ERASMO MURRAY Diagnosis: Last Documented On 4 3:08PM By Kaitlin Christensen ; [facility] Spironolactone 25 MG Oral Tablet 06/17/2023 Provider : JAIME MCKINNEY MD Diagnosis: Last Documented On 4 3:08PM By Kaitlin Christensen ; [facility] Metoprolol Succinate ER 50 M G Oral Tablet Extended Release 24 Hour 06/16/2023 Provider: Diagnosis: Last Documented On 4 3:08PM By Kaitlin Christensen ; [facility] Medications Administered Includes: Administered [...] Diagnosis WC FOLLOW UP/EST Charli Siegel MD [facility] 10/24/19 10 8:55AM 9:54AM Insurance Includes: Active Insurance Policies Plan Name Member ID Group # Subscriber Relationship Effect laura Dates 1 - [facility] [id number] Alonso Richardson Self Clinical Notes Includes: Clinical Notes from this encounter No Clinical Notes Recorded
--- OUTSIDE RECORDS SUMMARY | 2023-07-25 08:16 | XMS_ITS | Clinical Summary ---
Author Name Unknown Address [address] [place] [address] [place] [address] Phone Organization [facility] , [facility] Address [address] [place] [address] Phone Care Team Providers Care Life Consultant Name Role Phone Robbin VELAZCO, Charli Vale Primary Care Provider [phone] Reason for Visit and Chief Complaint Consult Problems Includes: Problems addressed during this encounter and other active Problems All Visits Onset Date Resolved Date Provider Condition S tatus Joint Pain in the Right Hip 07/14/2023 Maddy Malone PA-C Active Last Documented On 4 3:08PM [facility] Plan of Treatment Future Appointments Date Time Location Provi giorgio Follow Up 10/14/2023 1:15PM [facility] paedics [facility] B Maddy Malone PA-C Last Documented On 4 3:26PM ; [facility], [facility] Assessments Includes: Assessments from this encounter No Assessments Recorded Medical Equipment - Implanted Devices Includes: Current Devices No Medical Equipment Recorded Medications Includes: Medications discussed during this encounter and other current Medications Current Medications (continue as prescribed) Eliquis 5 MG Oral Tablet 07/08/2023 Provider: Diagnosis: Last Documented On 4 3:08PM By [facility] Folic Acid 1 MG Oral Tablet 07/08/2023 Provider: Diagnosis: Last Documented On 4 3:08PM By Kaitlin Christensen ; [facility], [facility] Levothyroxine Sodium 75 MCG Oral Tablet 07/08/2023 Cris dolander: Diagnosis: Last Documented On 4 3:08PM By Kaitlin Christensen ; [facility], [facility] Methocarbamol 500 MG Oral Tablet 07/08/2023 Provider : Diagnosis: Last Documented On 4 3:08PM By Kaitlin Christensen ; [facility], [facility] oxyCODONE HCl 5 MG Oral Tablet 07/08/2023 Provider: Diagnosis: Last Documented On 4 3:08PM By Kaitlin Christensen ; [facility], [facility] Thiamine HCl 100 MG Oral Tablet 07/08/2023 Provider: Diagnosis: Last Documented On 4 3:08PM By Kaitlin Christensen ; [facility], [facility] Bumetanide 1 MG Oral Tablet 07/08/2023 Provider: Diagnosis: Last Documented On 4 3:08PM By Kaitlin Christensen ; [facility], [facility] Jardiance 10 MG Oral Tablet 06/24/2023 Provider: Diagnosis: Last Documented On 4 3:08PM By Kaitlin Christensen ; [facility], [facility] Amiodarone HCl 200 MG Oral Tablet 06/17/2023 Provide r: ERASMOARIANA TANRAMAKRISHNA Diagnosis: Last Documented On 4 3:08PM By Kaitlin Christensen ; [facility], [facility] Digoxin 250 MCG Oral Tablet 06/17/2023 Provider: ERASMO MURRAY Diagnosis: Last Documented On 4 3:08PM By Kaitlin Christensen ; [facility], [facility] Entresto 24-26 MG Oral Tablet 06/17/2023 Provider: ERASMO MURRAY Diagnosis: Last Documented On 4 3:08PM By Kaitlin Christensen ; [facility], [facility] Spironolactone 25 MG Oral Tablet 06/17/2023 Provider : JAIME MCKINNEY MD Diagnosis: Last Documented On 4 3:08PM By Kaitlin Christensen ; [facility], [facility] Metoprolol Succinate ER 50 M G Oral Tablet Extended Release 24 Hour 06/16/2023 Provider: Diagnosis: Last Documented On 4 3:08PM By Kaitlin Christensen ; [facility], [facility] Medications Administered Includes: Administered Medications [...] Check-Out Time Diagnosis Consult Lamin Dixon MD [facility] 4 12:22PM 11:59PM Insurance Includes: Active Insurance Policies Plan Name Member ID Group # Subscriber Relationship Effect laura Dates 1 - [facility] [id number] Alonso Richardson Self Clinical Notes Includes: Clinical Notes from this encounter No Clinical Notes Recorded
--- OUTSIDE RECORDS SUMMARY | 2023-07-25 08:16 | XMS_ITS | Clinical Summary ---
Author Name Unknown Address [address] [place] [address] Phone Organization [facility] , [facility] Address [address] [place] [address] Phone Care Team Providers Care Correctional Case Manager Name Role Phone Robbin VELAZCO, Charli Vale Primary Care Provider [phone] Reason for Visit and Chief Complaint The Chief Complaint is: Right hip pain Problems Includes: Problems addressed during this encounter and other active Problems Current Visit Onset Date Resolved Date Provider José gil Status Joint Pain in the Right Hip 07/14/2023 Maddy Malone PA-C Active Last Documented On 4 3:08PM ; [facility], [facility] Plan of Treatment He will continue rehab. He understands his restrictions we will see him back as scheduled no further questions - Last Documented On 07/17/2023 9:30AM ; [facility], [facility] Future Appointments Date Time Location Provi giorgio Follow Up 10/14/2023 1:15PM [facility] paedics [facility] B Maddy Malone PA-C Last Documented On 4 3:26PM ; [facility], [facility] Instructions to patient Lose weight Last Documented On 4 3:12PM ; [facility], [facility] Assessments Includes: Assessments from this encounter Findings - Overweight - Last Documented On 07/17/2023 9:30AM ; [facility] Right hip ORIF - Last Documented On 07/17/2023 9:30AM ; [facility], [facility] Instructions Includes: Instructions from this encounter Instructions to patient Lose weight Last Documented On 4 3:12PM ; [facility], [facility] Medical Equipment - Implanted Devices Includes: Current Devices No Medical Equipment Recorded Medications Includes: Medications discussed during this encounter and other current Medications New / Renewed during this visit Lamin Dixon MD on 07/14/2023 HYDROcodone-Acetaminophen 5- 325 MG Oral Tablet Provider: Lamin Dixon MD 7 day supply: 21 tablet, 0 refills Diagnosis: three times a day Pharmacy: [address] [place], [id number] - Last Documented On 4 3:59PM By Lamin Dixon ; [facility], [facility] Current Medications (continue as prescribed) Eliquis 5 MG Oral Tablet 07/08/2023 Provider: Diagnosis: Last Documented On 4 3:08PM By Kaitlin Christensen ; [facility], [facility] Folic Acid 1 MG Oral Tablet 07/08/2023 Provider: Diagnosis: Last Documented On 4 3:08PM By Kaitlin Christensen ; [facility], [facility] Levothyroxine Sodium 75 MCG Oral Tablet 07/08/2023 P rorozder: Diagnosis: Last Documented On 4 3:08PM By Kaitlin Christensen ; [facility], [facility] Methocarbamol 500 MG Oral Tablet 07/08/2023 Provider : Diagnosis: Last Documented On 4 3:08PM By Kaitlin Christensen ; [facility], [facility] oxyCODONE HCl 5 MG Oral Tablet 07/08/2023 Provider: Diagnosis: Last Documented On 4 3:08PM By Kaitlin Christensen ; [facility], [facility] Thiamine HCl 100 MG Oral Tablet 07/08/2023 Provider: Diagnosis: Last Documented On 4 3:08PM By Kaitlin Christensen ; [facility], [facility] Bumetanide 1 MG Oral Tablet 07/08/2023 Provider: Diagnosis: Last Documented On 4 3:08PM By Kaitlin Christensen ; [facility], [facility] Jardiance 10 MG Oral Tablet 06/24/2023 Provider: Diagnosis: Last Documented On 4 3:08PM By Kaitlin Christensen ; [facility], [facility] Amiodarone HCl 200 MG Oral Tablet 06/17/2023 Provide r: ERASMO TANRAMAKRISHNA Diagnosis: Last Documented On 4 3:08PM By Kaitlin Christensen ; [facility], [facility] Digoxin 250 MCG Oral Tablet 06/17/2023 Provider: ERASMO MURRAY Diagnosis: Last Documented On 4 3:08PM By Kaitlin Christensen ; [facility], [facility] Entresto 24-26 MG Oral Tablet 06/17/2023 Provider: ERASMO MURRAY Diagnosis: Last Documented On 4 3:08PM By Kailtin Christensen ; [facility], [facility] Spironolactone 25 MG Oral Tablet 06/17/2023 Provider : JAIME MCKINNEY MD Diagnosis: Last Documented On 4 3:08PM By Kaitlin Christensen ; [facility], [facility] Metoprolol Succinate ER 50 M G Oral Tablet Extended Release 24 Hour 06/16/2023 Provider: Diagnosis: Last Documented On 4 3:08PM By Kaitlin Christensen ; [facility] Medications Administered Includes: Administered Medications from this encounter No Administered Medications Recorded Vital Signs Includes: Vital Signs from this encounter Vital Name 07/14/2023 03:09P Height (in) 72 Weight (lb) 210 Body Mass Index 28.5 Body Surface Area 2.2 Note: hdv Last Documented: On 07/14/2023 3:33PM ; [facility], [facility] Results Includes: Results discussed during this encounter [...] Last Documented On 4 9:30AM ; [facility], [facility] Caffeine use 07/14/2023 Last Documented On 4 [...] Date PELVIS w/ 2-3 VIEW HIP (RIGHT) 85315 Displaced intertrochanteric fracture of right femur, init Maddy Malone PA-C [facility] 07/14/2023 Last Documented On 4 1:48PM ; [facility] an X-ray was performed 51050 Last Documented On 4 3:34PM ; [facility] [...] Time Diagnosis Post Op Maddy Malone PA-C [facility] 4 2:10PM 3:16PM Overweight Insurance Includes: Active Insurance Policies Plan Name Member ID Group # Subscriber Relationship Effect laura Dates 1 - [facility] [id number] Alonso Vale Dylan Self Clinical Notes Includes: Clinical Notes from this encounter * Progress note Date Encounter Last Documented by 07/14/2023 Post Op Last documented on 07/17/2023; 9:30 AM, Maddy Malone PA-C; [facility], [facility] Active Problems & Conditions - Joint Pain [...]
--- OUTSIDE RECORDS SUMMARY | 2023-07-25 08:16 | XMS_ITS ---
Care Plan - [facility] Created on: July 25, 2023 Alonso Richardson : 1965 Sex: Male Author Name Unknown Address [address] [place] [address] [place] [address] Phone Organization [facility] Address [address] [place] [address] Phone Care Team Providers Care Hospital Education Coordinator Name Role Phone Robbin VELAZCO, Charli Vale Primary Care Provider [phone]
--- OUTSIDE RECORDS SUMMARY | 2023-07-25 08:16 | XMS_ITS ---
Author Name Unknown Address [address] [place] [address] Phone Organization [facility] , [facility] Address [address] [place] [address] Phone Care Team Providers Care Weather Anchor Name Role Phone Robbin VELAZCO, Charli Vale Primary Care Provider [phone] Problems Includes: Active, inactive, and resolved Problems All Visits Onset Date Resolved Date Provider Condition S tatus Joint Pain in the Right Hip 07/14/2023 Maddy Malone PA-C Active Last Documented On 4 3:08PM ; [facility], [facility] Plan of Treatment Future Appointments Date Time Location Provi giorgio Follow Up 10/14/2023 1:15PM [facility] Last Documented On 4 3:26PM ; [facility], [facility] Instructions to patient Lose weight Last Documented On 4 3:12PM ; [facility], [facility] Assessments Includes: Assessments for all patient encounters Findings Encounter Date Overweight Post Op with Maddy Malone PA-C 07/14/2023 Last Documented On 4 9:30AM ; [facility], [facility] Instructions Includes: Instructions for all patient encounters Instructions to patient Lose weight Last Documented On 4 3:12PM ; [facility], [facility] Medical Equipment - Implanted Devices Includes: Current and historical Devices No Medical Equipment Recorded Medications Includes: Current and historical Medications Current Medications (continue as prescribed) Eliquis 5 MG Oral Tablet 07/08/2023 Provider: Diagnosis: Last Documented On 4 3:08PM By Kaitlin Christensen ; [facility] Folic Acid 1 MG Oral Tablet 07/08/2023 Provider: Diagnosis: Last Documented On 4 3:08PM By Kaitlin Christensen ; [facility] Levothyroxine Sodium 75 MCG Oral Tablet 07/08/2023 P kelsider: Diagnosis: Last Documented On 4 3:08PM By Kaitiln Christensen ; [facility] Methocarbamol 500 MG Oral Tablet 07/08/2023 Provider : Diagnosis: Last Documented On 4 3:08PM By Kaitlin Christensen ; [facility] oxyCODONE HCl 5 MG Oral Tablet 07/08/2023 Provider: Diagnosis: Last Documented On 4 3:08PM By Kaitlin Christensen ; [facility] Thiamine HCl 100 MG Oral Tablet 07/08/2023 Provider: Diagnosis: Last Documented On 4 3:08PM By Kaitlin Christensen ; [facility] Bumetanide 1 MG Oral Tablet 07/08/2023 Provider: Diagnosis: Last Documented On 4 3:08PM By Kaitlin Christensen ; [facility], [facility] Jardiance 10 MG Oral Tablet 06/24/2023 Provider: Diagnosis: Last Documented On 4 3:08PM By Kaitlin Christensen ; [facility] Amiodarone HCl 200 MG Oral Tablet 06/17/2023 Provide r: ERASMO MURRAY Diagnosis: Last Documented On 4 3:08PM By Kaitlin Christensen ; [facility] Digoxin 250 MCG Oral Tablet 06/17/2023 Provider: ERASMO MURRAY Diagnosis: Last Documented On 4 3:08PM By Kaitlin Christensen ; [facility] Entresto 24-26 MG Oral Tablet 06/17/2023 Provider: ERASMO MURRAY Diagnosis: Last Documented On 4 3:08PM By Kaitlin Christensen ; [facility] Spironolactone 25 MG Oral Tablet 06/17/2023 [...] Recorded Vital Signs Includes: Vital Signs from 07/24/2022 through 07/25/2023 Vital Name 07/14/2023 03:09P Height (in) 72 Weight (lb) 210 Body Mass Index 28.5 Body Surface Area 2.2 Note: hdv Last Documented: On 07/14/2023 3:33PM ; [facility] Results Includes: Results from 07/24/2022 through 07/25/2023 No Results Recorded For Specified Dates History of Present Illness History of Present Illness not supported for this document type No History of Present Illness Recorded Social History Description Last Updated Alcohol use 07/14/2023 Last Documented On 4 9:30AM ; [facility] Caffeine use 07/14/2023 Last Documented On 4 9:30AM ; [facility] No recent change in diet 07/14/2023 Last Documented On 4 9:30AM ; [facility] Not exercising regularly 07/14/2023 Last Documented On 4 9:30AM ; [facility] Not using drugs 07/14/2023 Last Documented On 4 9:30AM ; [facility] Yes, current smoker. 07/14/2023 Last Documented On 4 9:30AM ; [facility] Smoking Status Unknown Procedures and Surgical History Includes: Procedures from 07/24/2022 through 07/25/2023 Procedures Code Diagnosis Performing Provider Service Location Service Date PELVIS w/ 2-3 VIEW HIP (RIGHT) 87976 Displaced intertrochanteric fracture of right femur, init Maddy Malone PA-C [facility] 07/14/2023 Last Documented On 4 1:48PM ; [facility] T[facility] THIGH FRACTURE (RIGHT) 61671 Displaced intertrochanteric fracture of right femur, init Lamin Dixon MD [facility] 06/07/2023 Last Documented On 4 12:30PM ; [facility] Surgical History Last Updated History of back surgery 07/14/2023 Last Documented On 4 9:30AM ; [facility] History of Previous Fractures 07/14/2023 Last Documented On 4 9:30AM ; [facility] Medical History Includes: Medical History in patient's chart Description Last Updated History of Fractures 07/14/2023 Last Documented On 4 9:30AM ; [facility] History of Hypertension 07/14/2023 Last Documented On 4 9:30AM ; [facility] History of Irregular Heartbeat 4 Last Documented On 4 9:30AM ; [facility] Family History Includes: Family History in patient's chart Description Last Updated No significant family history 07/14/2023 Last Documented On 4 9:30AM ; [facility] Review of Systems Review of Systems not supported for this document type No Review of Systems Recorded Mental Status Description No anxiety Functional Status No Functional Status Recorded Physical Exam Physical Exam not supported for this document type No Physical Exam Recorded Allergies Includes: Active, inactive, and resolved Allergies No Known Allergies Encounters Includes: Encounters from 07/24/2022 through 07/25/2023 Encounter Provider Location Date Check-In Time Check-Out Time Diagnosis Post Op Maddy Malone PA-C [facility] 07/14/19 24 2:10PM 3:16PM Overweight Consult Lamin Dixon MD Psychiatric 06/27/19 24 09/15/2009 12:22PM 09/15/2009 11:59PM [facility] Lamin Dixon MD Psychiatric 06/07/19 24 09/15/2009 12:27PM 09/15/2009 11:59PM Insurance Includes: Active Insurance Policies Plan Name Member ID Group # Subscriber Relationship Effect laura Dates 1 - [facility] [id number] Alonso Richardson Self Clinical Notes Includes: Signed Clinical Notes starting from 02/14/2022 * Progress note Date Encounter Last Documented by 07/14/2023 Post Op Last documented on 07/17/2023; 9:30 AM, Maddy Malone PA-C; [facility] Active Problems & Conditions - Joint Pain [...]
--- OUTSIDE RECORDS SUMMARY | 2023-07-25 08:16 | XMS_ITS | Clinical Summary ---
Author Name Unknown Address [address] [place] [address] [place] [address] Phone Organization [facility] , [facility] Address [address] [place] [address] Phone Care Team Providers Care Piper Helper Name Role Phone Robibn VELAZCO, Charli Vale Primary Care Provider [phone] Reason for Visit and Chief Complaint Yazdanism Health Problems Includes: Problems addressed during this encounter and other active Problems All Visits Onset Date Resolved Date Provider Condition S tatus Joint Pain in the Right Hip 07/14/2023 Maddy Malone PA-C Active Last Documented On 4 3:08PM ; [facility], [facility] Plan of Treatment Future Appointments Date Time Location Provi giorgio Follow Up 10/14/2023 1:15PM [facility] paedics [facility] B Maddy Malone PA-C Last Documented On 4 3:26PM ; [facility], [facility] Assessments Includes: Assessments from this encounter No Assessments Recorded Medical Equipment - Implanted Devices Includes: Current Devices No Medical Equipment Recorded Medications Includes: Medications discussed during this encounter and other current Medications Current Medications (continue as prescribed) Eliquis 5 MG Oral Tablet 07/08/2023 Provider: Diagnosis: Last Documented On 4 3:08PM By Kaitlin Christensen ; [facility], [facility] Folic Acid 1 MG Oral Tablet 07/08/2023 Provider: Diagnosis: Last Documented On 4 3:08PM By Kaitlin Christensen ; [facility], [facility] Levothyroxine Sodium 75 MCG Oral Tablet 07/08/2023 P rovider: Diagnosis: Last Documented On 4 3:08PM By Kaitlin Christensen ; [facility], [facility] Methocarbamol 500 MG Oral Tablet 07/08/2023 Provider : Diagnosis: Last Documented On 4 3:08PM By Kaitlin Christensen ; [facility], [facility] oxyCODONE HCl 5 MG Oral Tablet 07/08/2023 Provider: Diagnosis: Last Documented On 4 3:08PM By Kaitlin Christensen ; [facility], [facility] Thiamine HCl 100 MG Oral Tablet 07/08/2023 Provider: Diagnosis: Last Documented On 4 3:08PM By Kaitlin Christensen ; [facility], [facility] Bumetanide 1 MG Oral Tablet 07/08/2023 Provider: Diagnosis: Last Documented On 4 3:08PM By Kaitlin Christensen ; [facility], [facility] Jardiance 10 MG Oral Tablet 06/24/2023 Provider: Diagnosis: Last Documented On 4 3:08PM By Kaitlin Christensen ; [facility], [facility] Amiodarone HCl 200 MG Oral Tablet 06/17/2023 Provide r: ERASMO TREVOR Diagnosis: Last Documented On 4 3:08PM By Kaitlin Christensen ; [facility], [facility] Digoxin 250 MCG Oral Tablet 06/17/2023 Provider: ERASMO MURRAY Diagnosis: Last Documented On 4 3:08PM By Kaitlin Christensen ; [facility], [facility] Entresto 24-26 MG Oral Tablet 06/17/2023 Provider: ERASMO MURRAY Diagnosis: Last Documented On 4 3:08PM By Kaitlin Christensen ; [facility], [facility] Spironolactone 25 MG Oral Tablet 06/17/2023 Provider : JAIME MCKINNEY MD Diagnosis: Last Documented On 4 3:08PM By Kaitlin Christensen ; [facility], [facility] Metoprolol Succinate ER 50 M G Oral Tablet Extended Release 24 Hour 06/16/2023 Provider: Diagnosis: Last Documented On 4 3:08PM By Kaitlin Christensen ; [facility], [facility] Medications Administered Includes: Administered Medications from [...] Location Service Date TREAT THIGH FRACTURE (RIGHT) 42951 Displaced intertrochanteric fracture of right femur, init Lamin Dixon MD [facility] 06/07/2023 Last Documented On 4 12:30PM ; [facility] Medical History Includes: Medical History addressed [...] Location Date Check-In Time Check-Out Time Diagnosis [facility] Lamin Dixon MD [facility] 4 12:27PM 11:59PM Insurance Includes: Active Insurance Policies Plan Name Member ID Group # Subscriber Relationship Effect laura Dates - [facility] [id number] Alonso Palma Clinical Notes Includes: Clinical Notes from this encounter No Clinical Notes Recorded
--- OUTSIDE RECORDS SUMMARY | 2023-07-25 08:16 | XMS_ITS | Clinical Summary ---
Author Name Unknown Address [address] [place] [address] [place] [address] Phone Organization [facility] , [facility] Address [address] [place] [address] Phone Care Team Providers Care Reduction Furnace Operator Helper Name Role Phone Robbin VELAZCO, Charli Vale Primary Care Provider [phone] Reason for Visit and Chief Complaint WC FOLLOW UP/EST Problems Includes: Problems addressed during this encounter and other active Problems All Visits Onset Date Resolved Date Provider Condition S tatus Joint Pain in the Right Hip 07/14/2023 Maddy Malone PA-C Active Last Documented On 4 3:08PM ; [facility], [facility] Plan of Treatment Future Appointments Date Time Location Provi giorgio Follow Up 10/14/2023 1:15PM [facility] paedics [facility] B Maddy Malone PA-C Last Documented On 4 3:26PM ; [facility], [facility] Assessments Includes: Assessments from this encounter No Assessments Recorded Medical Equipment - Implanted Devices Includes: Current Devices No Medical Equipment Recorded Medications Includes: Medications discussed during this encounter and other current Medications Current Medications (continue as prescribed) Eliquis 5 MG Oral Tablet 07/08/2023 Provider: Diagnosis: Last Documented On 4 3:08PM By Kaitlin Christensen ; [facility], [facility] Folic Acid 1 MG Oral Tablet 07/08/2023 Provider: Diagnosis: Last Documented On 4 3:08PM By Kaitlin Christensen ; [facility], [facility] Levothyroxine Sodium 75 MCG Oral Tablet 07/08/2023 P rovider: Diagnosis: Last Documented On 4 3:08PM By Kaitlin Christensen ; [facility], [facility] Methocarbamol 500 MG Oral Tablet 07/08/2023 Provider : Diagnosis: Last Documented On 4 3:08PM By Kaitlin Christensen ; [facility], [facility] oxyCODONE HCl 5 MG Oral Tablet 07/08/2023 Provider: Diagnosis: Last Documented On 4 3:08PM By Kaitlin Christensen ; [facility], [facility] Thiamine HCl 100 MG Oral Tablet 07/08/2023 Provider: Diagnosis: Last Documented On 4 3:08PM By Kaitlin Christensen ; [facility], [facility] Bumetanide 1 MG Oral Tablet 07/08/2023 Provider: Diagnosis: Last Documented On 4 3:08PM By Kaitlin Christensen ; [facility], [facility] Jardiance 10 MG Oral Tablet 06/24/2023 Provider: Diagnosis: Last Documented On 4 3:08PM By Kaitlin Christensen ; [facility], [facility] Amiodarone HCl 200 MG Oral Tablet 06/17/2023 Provide r: ERASMO MURRAY Diagnosis: Last Documented On 4 3:08PM By Kaitlin Christensen ; [facility], [facility] Digoxin 250 MCG Oral Tablet 06/17/2023 Provider: ERASMO MURRAY Diagnosis: Last Documented On 4 3:08PM By Kaitlin Christensen ; [facility], [facility] Entresto 24-26 MG Oral Tablet 06/17/2023 Provider: ERASMO MURRAY Diagnosis: Last Documented On 4 3:08PM By Kaitlin Christensen ; [facility], [facility] Spironolactone 25 MG Oral Tablet 06/17/2023 Provider : JAIME MCKINNEY MD Diagnosis: Last Documented On 4 3:08PM By Kaitlin Christensen ; [facility], [facility] Metoprolol Succinate ER 50 M G Oral Tablet Extended Release 24 Hour 06/16/2023 Provider: Diagnosis: Last Documented On 4 3:08PM By Kaitlin Christensen ; [facility], [facility] Medications Administered Includes: Administered Medications from [...] Diagnosis WC FOLLOW UP/EST Charli Siegel MD [facility] 09/28/19 10 8:45AM 10:32AM Insurance Includes: Active Insurance Policies Plan Name Member ID Group # Subscriber Relationship Effect laura Dates 1 - [facility] [id number] Alonso Richardson Self Clinical Notes Includes: Clinical Notes from this encounter No Clinical Notes Recorded
[2023-07-25] MEDS: LEVOTHYROXINE 100MCG (0.1MG) TAB 100 MCG PO (08:39)
[2023-07-25] MEDS: APIXABAN 5MG TABLET 5 MG PO (08:40)
[2023-07-25] MEDS: DIGOXIN 0.25MG TABLET 250 MCG PO (08:41)
[2023-07-25] MEDS: METOPROLOL SUCCINATE XL 50MG TABLET 50 MG PO (08:42)
[2023-07-25] MEDS: SACUBITRIL/VALSARTAN 24-26MG TABLET 1 EACH PO (08:42)
[2023-07-25] MEDS: EMPAGLIFLOZIN 10MG TABLET 10 MG PO (08:42)
[2023-07-25] MEDS: THIAMINE 100MG TABLET 100 MG PO (08:43)
[2023-07-25] MEDS: SPIRONOLACTONE 25MG TABLET 25 MG PO (08:43)
[2023-07-25] MEDS: SERTRALINE 100MG TABLET 100 MG PO (08:43)
[2023-07-25] MEDS: MAGNESIUM SULFATE IN WATER 2 GM/50 ML PIGGYBACK IV (08:45)
[2023-07-25] MEDS: AMIODARONE 200MG TABLET 200 MG PO (08:58)
--- NOTE | 2023-07-25 09:33 | P.CONCA_ITS ---
History of Present Illness History of Present Illness Consult date: 07/25/23 Requesting physician: Richie Parra Chief complaint: Tachycardia Additional Medical History:: 1. Cardiomyopathy, unclear etiology but possibly due to ETOH A. Echocardiogram, 03/19/2023, EF 30%, Severe RV dilatation with severe reduction in RV function. B. CTA of the chest, 06/25/2023 showing increase in pericardial effusion from 9 mm in March to 14 mm. C. Echo, 07/24/2023, EF 70%, no regional wall motion abnormalities. Severely dilated RV with moderate to severe hypokinesis of the RV. 2. Alcohol abuse 3. COPD A. Tobacco use, 2 packs/day since age 16 4. Hypertension 5. Hyperlipidemia 6. History of atrial fibrillation A. History of atrial fib ablation x 2, with the last one approximately 2015 in [place], [place] 7. Pericardial effusion on Echo, 03/2023 A. Worse on CTA of chest, 06/25/2023 B. Effusion significantly improved by limited echo 07/24/2023 History of present illness: Is a 58-year-old male with history of chronic alcoholism, heart failure with reduced ejection fraction, COPD, nicotine use, who is presenting as an outpatient for cardiology eval. Presented for stress test, was found to be tachycardic and hypertensive. Received a dose of metoprolol and tachycardia worsened. Was sent to the ER for evaluation. Patient denies feeling his heart racing or feeling dizzy. Cough at baseline. Afebrile. No nausea or vomiting. Denies any confusion. States he drinks at least a pint daily. Last drink 4 days ago. Denies any withdrawal symptoms or history of seizures. EKG obtained showing A-fib/a flutter. On evaluation in the ER, patient found to be tachycardic above 100. Mildly hypertensive. Normal saturations on room air. Concern for A-fib with RVR. Labs showed CKD with creatinine 1.6, BUN normal. TSH elevated 25. Given his tachyarrhythmia, medicine was consulted for admission. Patient started on amiodarone drip in the ER. Cardiology was consulted and recommended admission with rate control and evaluation in the morning. On arrival to the floor, patient complains mainly of right leg pain that is longstanding from his previous surgeries. Denies any chest pain or shortness of breath. Denies any withdrawal symptoms. Has been mild tremor which he states is baseline. No confusion. Last drink 4 days ago. Pleasant and interactive. The above per Dr. Parra Events above confirmed with the patient. He does relate frequent noncompliance with his medications. Telemetry shows sinus rhythm in the 90-100 bpm range. Patient denies any chest pain, pressure or tightness. He is anxious to go home today. Troponins were normal. BNP elevated at 4650 along with elevated D-dimer. CT of the chest negative for PE and no infiltrate noted. TSH elevated at 25 despite reported levothyroxine prescription (non-compliant). [facility] Disclaimer: The information contained in this section may have been updated after the patient was seen, as this information can be updated by other users. 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 Testicular swelling, right Hypertension Tobacco abuse Alcohol abuse Tobacco use Paroxysmal atrial fibrillation Alcoholism Anxiety GERD (gastroesophageal reflux disease) Laceration of finger, left, complicated COPD (chronic obstructive pulmonary disease) Pulmonary hypertension Cirrhosis, alcoholic CHF (congestive heart failure) Hypertension Atrial fibrillation with rapid ventricular response Exposure to COVID-19 virus Surgical History History of discectomy History of cardiac radiofrequency ablation Family History Other Cancer Hypertension Stroke Substance abuse Social History Smoking Status: Current every day smoker tobacco type: cigarettes packs per day: 2 alcohol intake: current alcohol intake frequency: 3 or more drinks per day substance use type: denies use current occupational status: employed Travel in the last 8 weeks: None household members: significant other housing: house 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 current occupational exposures/hazards: No caffeine: Yes Review of Systems Review of Systems Review of systems:: pertinent systems reviewed and negative unless documented below Exam Data for Last 24 hours Vital signs and Labs for Last 24 Hours: Temp Pulse Resp BP Pulse Ox O2 Del Method O2 Flow Rate 97.8 F 98 H 23 104/77 L 96 Room Air 2 07/25/23 07:31 07/25/23 08:41 07/25/23 06:00 07/25/23 06:00 07/25/23 06:00 07/25/23 06:00 07/25/23 02:10 Laboratory Results - last 24 hr 07/24/23 13:15: WBC 9.6, RBC 3.63 L, Hgb 11.8 L, Hct 37.5 L, MCV 103.2 H, MCH 32.5 H, MCHC 31.5 L, RDW 17.0, Plt Count 316, MPV 8.3, Neut % (Auto) 73.1, Lymph % (Auto) 17.5, Hickman % (Auto) 6.1, Eos % (Auto) 2.2, Baso % (Auto) 1.2, Neut # (Auto) 7.0, Lymph # (Auto) 1.7, Hickman # (Auto) 0.6, Eos # (Auto) 0.2, Baso # (Auto) 0.1 07/24/23 13:35: D-Dimer 3.02 H, Sodium 134 L, Potassium 4.0, Chloride 94 L, Carbon Dioxide 29, Anion Gap 15.0, BUN 16, Creatinine 1.40 H, Estimated Creat Clear 79, Estimated GFR 52 L, Est GFR ( Amer) 63, Glucose 103 H, Calcium 9.3, Total Bilirubin 1.4 H, AST 32, ALT 16, Alkaline Phosphatase 216 H, Troponin I 0.02, NT-Pro-B Natriuret Pep 4650 H, Total Protein 8.2, Albumin 4.2, Globulin 4.0 H, Albumin/Globulin Ratio 1.1, TSH 25.00 H, Thyroxine (T4) 6.3, Digoxin < 0.40 07/24/23 16:24: Troponin I 0.01 07/24/23 20:04: Troponin I 0.01 07/25/23 05:27: WBC 6.9 D, RBC 3.55 L, Hgb 11.6 L, Hct 36.3 L, MCV 102.4 H, MCH 32.6 H, MCHC 31.8, RDW 17.1, Plt Count 280, MPV 8.3, Neut % (Auto) 66.4, Lymph % (Auto) 21.7, Hickman % (Auto) 7.9, Eos % (Auto) 3.0, Baso % (Auto) 1.0, Neut # (Auto) 4.6, Lymph # (Auto) 1.5, Hickman # (Auto) 0.6, Eos # (Auto) 0.2, Baso # (Auto) 0.1, Sodium 133 L, Potassium 4.0, Chloride 96 L, Carbon Dioxide 29, Anion Gap 12.0, BUN 20, Creatinine 1.30 H, Estimated Creat Clear 85, Estimated GFR 57 L, Est GFR ( Amer) 69, Glucose 146 H D, Calcium 8.8, Magnesium 1.5 L, Total Bilirubin 0.8, AST 31, ALT 12, Alkaline Phosphatase 166 H, Total Protein 7.3, Albumin 3.5 D, Globulin 3.8 H, Albumin/Globulin Ratio 0.9 L I & O for Last 24 hours: Intake & Output 07/22/23 07/23/23 07/24/23 07/25/23 11:59 11:59 11:59 11:59 Intake Total 487.539 / 487.539 Output Total 2400 / 2400 Balance -1912.461 / -1912.461 Weight 213 lb 3 oz Constitutional Constitutional: no acute distress *Routine Respiratory Exam Respiratory: Present CTA bilaterally and diminished air movement *Routine Cardiovascular Exam Cardiovascular: Present RRR; Absent murmur, gallop or rubs *Routine Neurological Exam Neurological: Present alert, oriented X3 and CN II-XII intact Meds Home Medications and Allergies Home Medications Medication Instructions Recorded Confirmed Type digoxin 250 mcg (0.25 mg) tablet 250 mcg PO DAILY #30 tabs 03/28/23 07/25/23 Rx sacubitril 24 mg-valsartan 26 mg 1 tab PO BID #60 tabs 03/28/23 07/25/23 Rx tablet (Entresto) spironolactone 25 mg tablet 25 mg PO DAILY #30 tabs 03/28/23 07/25/23 Rx (Aldactone) amiodarone 200 mg tablet 400 mg PO BID 06/16/23 07/25/23 History apixaban 5 mg tablet 5 mg PO BID 06/16/23 07/25/23 History empagliflozin 10 mg tablet 10 mg PO DAILY #30 tabs 06/16/23 07/25/23 Rx (Jardiance) metoprolol succinate 50 mg 50 mg PO DAILY #30 tabs 06/16/23 07/25/23 Rx tablet,extended release 24 hr (Toprol XL) sertraline 100 mg tablet 100 mg PO DAILY 06/16/23 07/16/23 History bumetanide 1 mg tablet 1 mg PO DAILY 07/25/23 History folic acid 1 mg tablet 1 mg PO DAILY 07/25/23 07/25/23 History levothyroxine 75 mcg tablet 75 mcg PO DAILY 07/25/23 07/25/23 History methocarbamol 500 mg tablet 500 mg PO QID 07/25/23 History thiamine HCl (vitamin B1) 100 mg 100 mg PO DAILY 07/25/23 07/25/23 History tablet New Prescriptions to Start Prescriptions: Allergies Allergy/AdvReac Type Severity Reaction Status Date / Time hydrochlorothiazide AdvReac Unknown Other Verified 07/16/23 15:07 Assessment and Plan *Assessment and plan (1) Tachycardia: Status: Acute Category: Medical Code(s): R00.0 - Tachycardia, unspecified (2) Heart failure with improved ejection fraction (HFimpEF): Status: Acute Category: Medical Code(s): I50.32 - Chronic diastolic (congestive) heart failure (3) Tobacco use: Status: Acute Category: Social Hx Code(s): Z72.0 - Tobacco use (4) Alcoholism: Status: Acute Category: Medical Code(s): F10.20 - Alcohol dependence, uncomplicated (5) COPD (chronic obstructive pulmonary disease): Status: Chronic Qualifiers: COPD type: unspecified COPD Qualified Code(s): J44.9 - Chronic obstructive pulmonary disease, unspecified Category: Medical Code(s): J44.9 - Chronic obstructive pulmonary disease, unspecified (6) Enlarged RV (right ventricle): Status: Acute Category: Medical Code(s): I51.7 - Cardiomegaly Plan 1. Tachycardia, concern for atrial flutter versus sinus tachycardia -Improved with IV amiodarone loading -Likely related to medication noncompliance 2. Heart failure with improved ejection fraction, EF now 70% by limited echo this admission -Continue goal-directed medical therapy with Entresto, metoprolol, digoxin, Jardiance, Bumex and spironolactone 3. Alcoholism 4. Tobacco abuse 5. RV dilatation and dysfunction, moderate to severe 6. Hypomagnesemia, will start replacement 7. Medication noncompliance complicates all aspects of care Stable from a cardiac standpoint for discharge home. Home medication recommendations: Amiodarone 200 mg twice daily Digoxin 0.25 mg daily Apixaban 5 mg twice daily Bumex 1 mg daily Jardiance 10 mg daily Entresto 24/26 mg twice daily Metoprolol succinate 50 mg daily Spironolactone 25 mg daily Add magnesium oxide 400 mg daily Resume levothyroxine 75 mcg daily Continue thiamine 100 mg daily Follow-up in our office in 1 week.
--- NOTE | 2023-07-25 10:03 | P.DS_ITS ---
General Admission date:: 07/24/23 Discharge date: 07/25/23 HPI HPI HPI: Is a 58-year-old male with history of chronic alcoholism, heart failure with reduced ejection fraction, COPD, nicotine use, who is presenting as an outpatient for cardiology eval. Presented for stress test, was found to be tachycardic and hypertensive. Received a dose of metoprolol and tachycardia worsened. Was sent to the ER for evaluation. Patient denies feeling his heart racing or feeling dizzy. Cough at baseline. Afebrile. No nausea or vomiting. Denies any confusion. States he drinks at least a pint daily. Last drink 4 da ys ago. Denies any withdrawal symptoms or history of seizures. EKG obtained showing A-fib/a flutter. On evaluation in the ER, patient found to be tachycardic above 100. Mildly hypertensive. Normal saturations on room air. Concern for A-fib with RVR. Labs showed CKD with creatinine 1.6, BUN normal. TSH elevated 25. Given his tachyarrhythmia, medicine was consulted for admission. Patient started on amiodarone drip in the ER. Cardiology was consulted and recommended admission with rate control and evaluation in the morning. On arrival to the floor, patient complains mainly of right leg pain that is longstanding from his previous surgeries. Denies any chest pain or shortness of breath. Denies any withdrawal symptoms. Has been mild tremor which he states is baseline. No confusion. Last drink 4 days ago. Pleasant and interactive. Hospital Course Hospital Course Hospital Course: 58-year-old male with history of a flutter, alcohol dependence, heart failure reduced ejection fraction, who presented to the ER with tachycardia and hypertension at the request of cardiology. Found to be in A-fib with RVR. ER requested admission for amiodarone drip and further treatment of his a flutter with RVR. Medicine agreed to admit. Did well with treatment. Cardiology consulted to assist with care. Patient not compliant with his home regimen after extensive questioning. Given clinical improvement, will discharge home for close follow-up and further management as an outpatient. Problems addressed as follows: A flutter with RVR Heart failure with reduced ejection fraction -Patient tachycardic with rate uncontrolled on admission. Initiated on amiodarone drip. Responded appropriately with improvement in rate control. Resumed home regimen including oral amiodarone, digoxin, Eliquis. Continue medications for heart failure including Entresto, metoprolol, spironolactone. BNP was elevated at 4600 on admission. Initiated on Lasix daily. Cardiology was consulted. Recommend resuming goal-directed therapy for heart failure and A-fib. Close follow-up as an outpatient. See med rec for full details on medications. Stable discharge home. -2 L fluid status during admission. Alcohol dependence: Last drink 4 days ago, mild tremor, baseline per patient. No indication for benzodiazepine therapy during admission. Initiated on multivitamins. Continue Zoloft 100 mg daily for mood disorder Significant back pain and leg pain from previous surgeries, oxycodone 5 mg every 6 hours as needed for breakthrough pain during admission. CKD 3 appears at baseline with creatinine 1.4 on admission. Creatinine 1.3 and BUN 28-day of discharge. Hypothyroid: TSH 25. Initiate levothyroxine 100 mcg daily. Will administer 100 mcg IV x 1 on admission. Follow-up in our office in 1 week. Total time spent on discharge 35 minutes in counseling, documentation, chart review, and direct care with patient. Exam Data for Last 24 hours Vital signs and Labs for Last 24 Hours: Temp Pulse Resp BP Pulse Ox O2 Del Method O2 Flow Rate 97.8 F 98 H 23 104/77 L 96 Room Air 2 07/25/23 07:31 07/25/23 08:41 07/25/23 06:00 07/25/23 06:00 07/25/23 06:00 07/25/23 06:00 07/25/23 02:10 Laboratory Results - last 24 hr 07/24/23 13:15: WBC 9.6, RBC 3.63 L, Hgb 11.8 L, Hct 37.5 L, MCV 103.2 H, MCH 32.5 H, MCHC 31.5 L, RDW 17.0, Plt Count 316, MPV 8.3, Neut % (Auto) 73.1, Lymph % (Auto) 17.5, [place] % (Auto) 6.1, Eos % (Auto) 2.2, Baso % (Auto) 1.2, Neut # (Auto) 7.0, Lymph # (Auto) 1.7, [place] # (Auto) 0.6, Eos # (Auto) 0.2, Baso # (Auto) 0.1 07/24/23 13:35: D-Dimer 3.02 H, Sodium 134 L, Potassium 4.0, Chloride 94 L, Carbon Dioxide 29, Anion Gap 15.0, BUN 16, Creatinine 1.40 H, Estimated Creat Clear 79, Estimated GFR 52 L, Est GFR ( Amer) 63, Glucose 103 H, Calcium 9.3, Total Bilirubin 1.4 H, AST 32, ALT 16, Alkaline Phosphatase 216 H, Troponin I 0.02, NT-Pro-B Natriuret Pep 4650 H, Total Protein 8.2, Albumin 4.2, Globulin 4.0 H, Albumin/Globulin Ratio 1.1, TSH 25.00 H, Thyroxine (T4) 6.3, Digoxin < 0.40 07/24/23 16:24: Troponin I 0.01 07/24/23 20:04: Troponin I 0.01 07/25/23 05:27: WBC 6.9 D, RBC 3.55 L, Hgb 11.6 L, Hct 36.3 L, MCV 102.4 H, MCH 32.6 H, MCHC 31.8, RDW 17.1, Plt Count 280, MPV 8.3, Neut % (Auto) 66.4, Lymph % (Auto) 21.7, [place] % (Auto) 7.9, Eos % (Auto) 3.0, Baso % (Auto) 1.0, Neut # (Auto) 4.6, Lymph # (Auto) 1.5, [place] # (Auto) 0.6, Eos # (Auto) 0.2, Baso # (Auto) 0.1, Sodium 133 L, Potassium 4.0, Chloride 96 L, Carbon Dioxide 29, Anion Gap 12.0, BUN 20, Creatinine 1.30 H, Estimated Creat Clear 85, Estimated GFR 57 L, Est GFR ( Amer) 69, Glucose 146 H D, Calcium 8.8, Magnesium 1.5 L, Total Bilirubin 0.8, AST 31, ALT 12, Alkaline Phosphatase 166 H, Total Protein 7.3, Albumin 3.5 D, Globulin 3.8 H, Albumin/Globulin Ratio 0.9 L I & O for Last 24 hours: Intake & Output 07/22/23 07/23/23 07/24/23 07/25/23 23:59 23:59 23:59 23:59 Intake Total 487.539 / 487.539 Output Total 1400 / 1650 1000 / 1000 Balance -1400 / -1432.461 -512.461 / -512.461 Weight 96.615 kg 96.7 kg Constitutional Constitutional: no acute distress, average body habitus and chronically ill appearing *Routine HEENT Exam Head: Present normocephalic Eye: Present EOMI and PERRL ENT: Present mucous membranes moist *Routine Neck Exam Neck: Present supple; Absent lymphadenopathy *Routine Respiratory Exam Respiratory: Present CTA bilaterally; Absent rhonchi, wheezes or crackles *Routine Cardiovascular Exam Cardiovascular: Present irregularly irregular *Routine Abdominal Exam Abdominal: Present soft and normoactive bowel sounds; Absent tenderness *Routine Rectal Exam Patient deferred: visual exam *Routine Exam Patient deferred: penile exam *Routine Extremities Exam Extremities: Absent cyanosis, clubbing or edema *Routine Skin Exam Skin: Present warm; Absent rash *Routine Neurological Exam Neurological: Present alert, oriented X3, moving all extremities and tremors; Absent altered mental status Results Data Completed and Pending Labs on day of discharge: Labs from last 24 hours 07/25/23 07/24/23 07/24/23 05:27 20:04 16:24 WBC 6.9 D RBC 3.55 L Hgb 11.6 L Hct 36.3 L MCV 102.4 H MCH 32.6 H MCHC 31.8 RDW 17.1 Plt Count 280 MPV 8.3 Neut % (Auto) 66.4 Lymph % (Auto) 21.7 [place] % (Auto) 7.9 Eos % (Auto) 3.0 Baso % (Auto) 1.0 Neut # (Auto) 4.6 Lymph # (Auto) 1.5 [place] # (Auto) 0.6 Eos # (Auto) 0.2 Baso # (Auto) 0.1 D-Dimer Sodium 133 L Potassium 4.0 Chloride 96 L Carbon Dioxide 29 Anion Gap 12.0 BUN 20 Creatinine 1.30 H Estimated Creat Clear 85 Estimated GFR 57 L Est GFR ( Amer) 69 Glucose 146 H D Calcium 8.8 Magnesium 1.5 L Total Bilirubin 0.8 AST 31 ALT 12 Alkaline Phosphatase 166 H Troponin I 0.01 0.01 NT-Pro-B Natriuret Pep Total Protein 7.3 Albumin 3.5 D Globulin 3.8 H Albumin/Globulin Ratio 0.9 L TSH Thyroxine (T4) Digoxin 07/24/23 07/24/23 13:35 13:15 WBC 9.6 RBC 3.63 L Hgb 11.8 L Hct 37.5 L MCV 103.2 H MCH 32.5 H MCHC 31.5 L RDW 17.0 Plt Count 316 MPV 8.3 Neut % (Auto) 73.1 Lymph % (Auto) 17.5 [place] % (Auto) 6.1 Eos % (Auto) 2.2 Baso % (Auto) 1.2 Neut # (Auto) 7.0 Lymph # (Auto) 1.7 [place] # (Auto) 0.6 Eos # (Auto) 0.2 Baso # (Auto) 0.1 D-Dimer 3.02 H Sodium 134 L Potassium 4.0 Chloride 94 L Carbon Dioxide 29 Anion Gap 15.0 BUN 16 Creatinine 1.40 H Estimated Creat Clear 79 Estimated GFR 52 L Est GFR ( Amer) 63 Glucose 103 H Calcium 9.3 Magnesium Total Bilirubin 1.4 H AST 32 ALT 16 Alkaline Phosphatase 216 H Troponin I 0.02 NT-Pro-B Natriuret Pep 4650 H Total Protein 8.2 Albumin 4.2 Globulin 4.0 H Albumin/Globulin Ratio 1.1 TSH 25.00 H Thyroxine (T4) 6.3 Digoxin < 0.40 DS: Diagnosis Discharge Diagnosis (1) Tachycardia: Status: Acute Code(s): R00.0 - Tachycardia, unspecified (2) Heart failure with improved ejection fraction (HFimpEF): Status: Acute Code(s): I50.32 - Chronic diastolic (congestive) heart failure (3) Tobacco use: Status: Acute Code(s): Z72.0 - Tobacco use (4) Alcoholism: Status: Acute Code(s): F10.20 - Alcohol dependence, uncomplicated (5) COPD (chronic obstructive pulmonary disease): Status: Chronic Code(s): J44.9 - Chronic obstructive pulmonary disease, unspecified Qualifiers: COPD type: unspecified COPD Qualified Code(s): J44.9 - Chronic obstructive pulmonary disease, unspecified (6) Enlarged RV (right ventricle): Status: Acute Code(s): I51.7 - Cardiomegaly Meds Home Medications and Allergies Home Medications Medication Instructions Recorded Confirmed Type digoxin 250 mcg (0.25 mg) tablet 250 mcg PO DAILY #30 tabs 03/28/23 07/25/23 Rx sacubitril 24 mg-valsartan 26 mg 1 tab PO BID #60 tabs 03/28/23 07/25/23 Rx tablet (Entresto) spironolactone 25 mg tablet 25 mg PO DAILY #30 tabs 03/28/23 07/25/23 Rx (Aldactone) amiodarone 200 mg tablet 400 mg PO BID 06/16/23 07/25/23 History apixaban 5 mg tablet 5 mg PO BID 06/16/23 07/25/23 History empagliflozin 10 mg tablet 10 mg PO DAILY #30 tabs 06/16/23 07/25/23 Rx (Jardiance) metoprolol succinate 50 mg 50 mg PO DAILY #30 tabs 06/16/23 07/25/23 Rx tablet,extended release 24 hr (Toprol XL) sertraline 100 mg tablet 100 mg PO DAILY 06/16/23 07/25/23 History bumetanide 1 mg tablet 1 mg PO DAILY 07/25/23 07/25/23 History folic acid 1 mg tablet 1 mg PO DAILY 07/25/23 07/25/23 History levothyroxine 100 mcg tablet 100 mcg PO DAILYDM 30 days #30 tabs 07/25/23 Rx (Synthroid) magnesium oxide 400 mg (241.3 mg 400 mg PO DAILY 10 days #10 tabs 07/25/23 Rx magnesium) tablet methocarbamol 500 mg tablet 500 mg PO QID 07/25/23 07/25/23 History thiamine HCl (vitamin B1) 100 mg 100 mg PO DAILY 07/25/23 07/25/23 History tablet New Prescriptions to Start Prescriptions: levothyroxine [Synthroid] Richie Parra magnesium oxide Richie Parra Allergies Allergy/AdvReac Type Severity Reaction Status Date / Time hydrochlorothiazide AdvReac Unknown Other Verified 07/16/23 15:07 Discharge Plan Disposition Patient Disposition: Home, Self-Care Condition: Fair Follow up Plan Follow up with: Jai Kate APRN [Nurse Practitioner] - 07/31/23 9:45 am Thaddeus Garcia MD [Staff Physician] - 08/05/23 3:00 pm Prescriptions/Medication Reconciliation: New levothyroxine [Synthroid] 100 mcg Tablet 100 mcg PO DAILYDM 30 Days Qty: 30 0RF magnesium oxide 400 mg (241.3 mg magnesium) Tablet 400 mg PO DAILY 10 Days Qty: 10 0RF Continued sertraline 100 mg tablet 100 mg PO DAILY metoprolol succinate [Toprol XL] 50 mg tablet extended release 24 hr 50 mg PO DAILY Qty: 30 2RF Jardiance 10 mg tablet 10 mg PO DAILY Qty: 30 5RF amiodarone 200 mg tablet 400 mg PO BID spironolactone [Aldactone] 25 mg tablet 25 mg PO DAILY Qty: 30 0RF Entresto 24-26 mg tablet 1 tab PO BID Qty: 60 0RF digoxin 250 mcg (0.25 mg) tablet 250 mcg PO DAILY Qty: 30 0RF apixaban 5 mg tablet 5 mg PO BID methocarbamol 500 mg tablet 500 mg PO QID thiamine HCl (vitamin B1) 100 mg tablet 100 mg PO DAILY bumetanide 1 mg tablet 1 mg PO DAILY folic acid 1 mg tablet 1 mg PO DAILY Discontinued levothyroxine 75 mcg tablet 75 mcg PO DAILY Other Ambulatory Orders: Home Medical Equipment (Routine) Location: None Selected Ordered By: Richie Parra Problem Reconciliation Problems Reviewed?: Yes Patient Discharge Instructions ACTIVITY: Continue current activity DIET: continue same diet Patient Instructions: Chronic Obstructive Pulmonary Disease, Heart Failure, Alcohol Use Disorder, Nicotine Addiction, Atrial Flutter, DI for Atrial Flutter Providers Primary Care Provider: Provider,Referral Admit Provider: Richie Parra Attending Provider: Richie Parra
[2023-07-25] MEDS: MAGNESIUM OXIDE 400MG TABLET 400 MG PO (11:49)
--- NOTE | 2023-07-25 16:48 | CARE MANAGER ---
Patient requiring a cane for ambulation upon discharge. Patient Choice signed for [facility]. Cane delivered prior to discharge.
--- NOTE | 2023-07-30 10:26 | CARE MANAGER ---
Called and spoke with patient regarding recent discharge. Patient stated that he is doing well, no concerns voiced at time of call. Stated that he was aware of scheduled f/u appts and is planning to discuss medications with Dr. Alexis when he sees him.
== END 2023-07-25 14:33 | disposition home or self-care (01) ==
LOC: ER 16:51 → 2ND 07-25 04:14
PROVIDERS: Student in an Organized Health Care Education/Training Program; Admitting Provider Internal Medicine Adolescent Medicine; Emergency Provider Emergency Medicine; Visit Provider Internal Medicine Adolescent Medicine
DX: R00.0 Tachycardia, unspecified (principal); R07.9 Chest pain, unspecified; K74.60 Unspecified cirrhosis of liver; I50.32 Chronic diastolic (congestive) heart failure; K21.9 Gastro-esophageal reflux disease without esophagitis; J44.9 Chronic obstructive pulmonary disease, unspecified; F17.210 Nicotine dependence, cigarettes, uncomplicated; I42.9 Cardiomyopathy, unspecified; F10.20 Alcohol dependence, uncomplicated; F41.9 Anxiety disorder, unspecified; E03.9 Hypothyroidism, unspecified; N18.30 Chronic kidney disease, stage 3 unspecified; I13.0 Hypertensive heart and chronic kidney disease with heart failure and stage 1 through stage 4 chronic kidney disease, or unspecified chronic kidney disease; N18.9 Chronic kidney disease, unspecified; E83.42 Hypomagnesemia; Z91.199 Patient's noncompliance with other medical treatment and regimen due to unspecified reason
CPT/HCPCS: 36415; 71045; 71275; 80053; 80162; 83735; 83880; 84436; 84443; 84484; 85025; 85378; 93005; 93308; 99285; G0378; J0282; J3475; J7060; Q9967

== ENCOUNTER 2023-08-14 20:39 | Observation (INO) | payer MEDICAID, SELFPAY ==
[2023-08-14 20:39] VITALS: BP 106/75; PULSE 108; RESP 18; TEMP 36.4; O2SAT 97; BMI 24.3
--- NOTE | 2023-08-14 20:41 | HMH.EDGENADL ---
Discharge Plan Disposition Chief Complaint: PAIN Prescriptions Prescriptions: No Action sertraline 100 mg tablet 100 mg PO DAILY metoprolol succinate [Toprol XL] 50 mg tablet extended release 24 hr 50 mg PO DAILY Qty: 30 2RF Jardiance 10 mg tablet 10 mg PO DAILY Qty: 30 5RF amiodarone 200 mg tablet 400 mg PO BID spironolactone [Aldactone] 25 mg tablet 25 mg PO DAILY Qty: 30 0RF Entresto 24-26 mg tablet 1 tab PO BID Qty: 60 0RF digoxin 250 mcg (0.25 mg) tablet 250 mcg PO DAILY Qty: 30 0RF apixaban 5 mg tablet 5 mg PO BID methocarbamol 500 mg tablet 500 mg PO QID thiamine HCl (vitamin B1) 100 mg tablet 100 mg PO DAILY bumetanide 1 mg tablet 1 mg PO DAILY folic acid 1 mg tablet 1 mg PO DAILY levothyroxine [Synthroid] 100 mcg Tablet 100 mcg PO DAILYDM 30 Days Qty: 30 0RF magnesium oxide 400 mg (241.3 mg magnesium) Tablet 400 mg PO DAILY 10 Days Qty: 10 0RF Discharge ED Provider: Todd Hsu General Adult HPI General Chief complaint: PAIN Stated complaint: R hip pain Time Seen by Provider: 08/14/23 20:41 History of Present Illness HPI narrative: Patient is a 58-year-old male with past medical history of recent traumatic right femur fracture status post surgical intervention at [facility] who presents emergency department for functional decline. Patient states that he had a ground-level fall and broke his hip a couple weeks ago and went to [facility] where he had his femur operated on he was subsequently discharged home. He was supposed be contacted for rehab which she states never happened. He also drinks approximately 1/5 a day for the last 2 years, has drank the same amount today. He does wish to abstain from alcohol however the main reason he is calling was due to pain in his hip causing him inability to complete his activities of daily living. He has never had withdrawal seizures before. No new trauma. No chest pain or shortness of breath. Related Data Home Medications Medication Instructions Recorded Confirmed amiodarone 200 mg tablet 400 mg PO BID 06/16/23 07/25/23 apixaban 5 mg tablet 5 mg PO BID 06/16/23 07/25/23 sertraline 100 mg tablet 100 mg PO DAILY 06/16/23 07/25/23 bumetanide 1 mg tablet 1 mg PO DAILY 07/25/23 07/25/23 folic acid 1 mg tablet 1 mg PO DAILY 07/25/23 07/25/23 methocarbamol 500 mg tablet 500 mg PO QID 07/25/23 07/25/23 thiamine HCl (vitamin B1) 100 mg 100 mg PO DAILY 07/25/23 07/25/23 tablet Previous Rx's Medication Instructions Recorded digoxin 250 mcg (0.25 mg) tablet 250 mcg PO DAILY #30 tabs 03/28/23 sacubitril 24 mg-valsartan 26 mg 1 tab PO BID #60 tabs 03/28/23 tablet (Entresto) spironolactone 25 mg tablet 25 mg PO DAILY #30 tabs 03/28/23 (Aldactone) empagliflozin 10 mg tablet 10 mg PO DAILY #30 tabs 06/16/23 (Jardiance) metoprolol succinate 50 mg 50 mg PO DAILY #30 tabs 06/16/23 tablet,extended release 24 hr (Toprol XL) levothyroxine 100 mcg tablet 100 mcg PO DAILYDM 30 days #30 tabs 07/25/23 (Synthroid) magnesium oxide 400 mg (241.3 mg 400 mg PO DAILY 10 days #10 tabs 07/25/23 magnesium) tablet Allergies Allergy/AdvReac Type Severity Reaction Status Date / Time hydrochlorothiazide AdvReac Unknown Other Verified 07/16/23 15:07 [facility] Disclaimer: The information contained in this section may have been updated after the patient was seen, as this information can be updated by other users. 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 Testicular swelling, right Hypertension Tobacco abuse Alcohol abuse Tobacco use Paroxysmal atrial fibrillation Alcoholism Anxiety GERD (gastroesophageal reflux disease) Laceration of finger, left, complicated COPD (chronic obstructive pulmonary disease) Pulmonary hypertension Cirrhosis, alcoholic CHF (congestive heart failure) Hypertension Atrial fibrillation with rapid ventricular response Exposure to COVID-19 virus Surgical History History of discectomy History of cardiac radiofrequency ablation Family History Other Cancer Hypertension Stroke Substance abuse Social History Smoking Status: Unknown if ever smoked alcohol intake: current alcohol intake frequency: 3 or more drinks per day substance use type: denies use current occupational status: employed Travel in the last 8 weeks: None household members: significant other housing: house 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 current occupational exposures/hazards: No caffeine: Yes ROS Obtained: Yes Systems reviewed as appropriate & no additional complaints except as documented Physical Exam General General appearance: alert and in no apparent distress Head Head exam: atraumatic and normocephalic Eye Eye exam: Present PERRL and EOMI ENT ENT exam: Present mucous membranes moist Neck Neck exam: Present normal inspection Chest Chest inspection: Present normal inspection and symmetric chest wall rise Respiratory Respiratory exam: Present normal lung sounds bilaterally; Absent respiratory distress Cardiovascular Cardiovascular exam: Present normal rhythm and tachycardia Abdominal Exam Abdominal exam: Present soft; Absent tenderness Extremities Exam Extremities exam: Present normal inspection and other (Swelling of the right thigh, no overlying significant erythema or discoloration.) Neurological Exam Neurological exam: Present alert Psychiatric Psychiatric exam: Present normal affect Skin Skin exam: Present warm and dry Medical Decision Making Paul Inquiry Pt receiving controlled substance: No Vital Signs: 08/14/23 20:39 08/14/23 21:00 08/14/23 21:46 Temperature 97.6 F Temperature Source Oral Pulse Rate 101 H 110 H Pulse Rate [Right] 108 H Respiratory Rate 18 Blood Pressure 99/74 L 109/82 L Blood Pressure [Right Arm] 106/75 L Blood Pressure Mean [Right Arm] 85 Blood Pressure Source [Right Arm] Automatic Cuff Blood Pressure Position [Right Arm] Sitting 02 Sat by Pulse Oximetry 97 96 98 Oxygen Delivery Method Room Air Lab Data Lab Results 08/14/23 20:52: WBC 7.6, RBC 3.60 L, Hgb 11.5 L, Hct 36.6 L, MCV 101.7 H, MCH 32.0 H, MCHC 31.4 L, RDW 17.7 H, Plt Count 161, MPV 8.5, Neut % (Auto) 59.5, Lymph % (Auto) 32.6, [place] % (Auto) 5.3, Eos % (Auto) 1.1, Baso % (Auto) 1.4, Neut # (Auto) 4.6, Lymph # (Auto) 2.5, [place] # (Auto) 0.4, Eos # (Auto) 0.1, Baso # (Auto) 0.1, Sodium 136, Potassium 3.1 L, Chloride 103, Carbon Dioxide 21 L, Anion Gap 15.1 H, BUN 9, Creatinine 1.00, Estimated Creat Clear 88, Estimated GFR 77, Est GFR ( Amer) 93, Glucose 103 H, Calcium 7.9 L, Total Bilirubin 0.8, AST 47, ALT 17, Alkaline Phosphatase 240 H, Total Protein 7.2, Albumin 3.5, Globulin 3.7 H, Albumin/Globulin Ratio 0.9 L, Plasma/Serum Alcohol 351 H 08/14/23 20:52 08/14/23 20:52 Orders (Tests/Meds): ED MEDICATIONS Generic Name Dose Route Start Last Admin Trade Name Freq PRN Reason Stop Dose Admin Calcium Gluconate/Sodium Chloride 1 gm in 50 mls @ 50 mls/hr 08/14/23 22:21 Calcium Gluconate 1,000mg/50ml Nacl Premix IV 08/14/23 23:20 ONCE ONE Lactated Ringer's 1,000 mls @ 999 mls/hr 08/14/23 22:24 Lactated Ringer's 1000 Ml Bag IV 08/14/23 23:24 .[id number] ONE Discontinued Medications Generic Name Dose Route Start Last Admin Trade Name Freq PRN Reason Stop Dose Admin Piperacillin Sod/Tazobactam 50 mls @ 100 mls/hr 08/14/23 22:00 08/14/23 22:03 Sod 3.375 gm/ Sodium Chloride IV 08/14/23 22:29 Not Given ONCE ONE Miscellaneous 1 each 08/14/23 22:15 08/14/23 22:03 Vancomycin Consult Request NOTAPPLIC 09/13/23 22:14 Not Given CONSULT PHARMACY RYAN Potassium Chloride 40 meq 08/14/23 22:21 Potassium Chloride 20meq Tab PO 08/14/23 22:22 ONCE ONE ORDERS Category Date Time Status Hip XR right minimum 2 views [XR hip RT 2-3V w/pelvis] Exams 08/14/23 20:42 Completed Stat CBC w/Auto Diff [Complete Blood Count Auto Diff] Stat Lab 08/14/23 20:52 Completed CMP [Comprehensive Metabolic Panel] Stat Lab 08/14/23 20:52 Completed Ethanol [Ethyl Alcohol] Stat Lab 08/14/23 20:52 Completed Medical Decision Narrative: In summary patient is a 58-year-old male past medical history described above presents emergency department for evaluation of hip pain in the setting of recent traumatic hip fracture status post surgical intervention at outside hospital with acute functional decline, chronic alcoholism wishing to cease alcohol intake and detox. Workup will be conducted with hematologic labs although are unlikely to reveal anything. Plain film of the right leg will be repeated. Patient does have some swelling of his right lower extremity however is well within the purview of postoperative swelling. He has no discoloration to suggest DVT at this time therefore duplex emergently will be deferred given that we do not have coverage at night. Workup reviewed by me, hematologic labs are remarkable for hypokalemia and hypocalcemia which will be repleted, significantly elevated alcohol level 351. Plain film shows no acute pathology. Given this patient has acute functional decline, electrolyte derangement, very elevated alcohol that will take multiple hours to detox from. Given this constellation of pathologies he will require inpatient management the case was discussed with hospital medicine and they will admit the patient their service for continued evaluation at this time. It was recommended to get a duplex DVT of the right lower extremity although pretest probability of DVT is low is not 0 and will be ruled out in the morning. Critical Care Critical Care Time Critical Care Time: No
--- NOTE | 2023-08-14 20:42 | XR_ITS ---
PROCEDURE INFORMATION: Exam: XR Right Femur Exam date and time: 08/14/2023 8:47 PM Age: 58 years old Clinical indication: Hip pain; Right hip; Prior surgery; Surgery date: 1-6 months; Surgery type: Nailing; Additional info: Recent hip replacement, pain TECHNIQUE: Imaging protocol: Radiologic exam of the right femur. Views: 2 views. COMPARISON: CT ANGIO ABDOMEN PELVIS 25/06/2023 17:38 FINDINGS: Bones/joints: Intramedullary geovanna in the femur with proximal screws. Hardware appears intact. Femoral neck hardware appears intact. No acute fracture or dislocation. Postsurgical changes of the proximal tibia. Visible portions of the hardware appear intact. Soft tissues: Unremarkable. IMPRESSION: No acute fracture or dislocation. PROCEDURE INFORMATION: Exam: XR Right Hip Exam date and time: 08/14/2023 8:47 PM Age: 58 years old Clinical indication: Hip pain; Right hip; Prior surgery; Surgery date: 1-6 months; Surgery type: Nailing; Additional info: Recent hip replacement, pain TECHNIQUE: Imaging protocol: Radiologic exam of the right hip. Views: 2 or 3 views hip with pelvis when performed. COMPARISON: MR HIP RT WO CON 26/06/2023 13:58 FINDINGS: Bones/joints: Postsurgical changes of the right hip. Hardware appears intact. No acute fracture or dislocation. Soft tissues: Unremarkable.
--- OUTSIDE RECORDS SUMMARY | 2023-08-14 20:44 | XMS_ITS ---
Care Plan - [facility] [place] Created on: August 14, 2023 Alonso Richardson : 1965 Sex: Male Author Name Unknown Address [address] [place] [address] [place] [address] Phone Organization [facility] Address [address] [place] [place] [address] Phone Care Team Providers Care Grinder Set Up Operator Surface Name Role Phone Robbin VELAZCO, Charli Vale Primary Care Provider [phone]
--- OUTSIDE RECORDS SUMMARY | 2023-08-14 20:44 | XMS_ITS | Clinical Summary ---
Author Name Unknown Address [address] [place] [address] Phone Organization [facility] Address [address] [place] [place] [address] Phone Care Team Providers Care Terminal Gauger Supervisor Name Role Phone Robbin VELAZCO, Charli Vale Primary Care Provider [phone] Reason for Visit and Chief Complaint The Chief Complaint is: Right hip pain Problems Includes: Problems addressed during this encounter and other active Problems Current Visit Onset Date Resolved Date Provider José gil Status Joint Pain in the Right Hip 07/14/2023 Maddy Malone PA-C Active Last Documented On 4 3:08PM ; [facility] Plan of Treatment He will continue rehab. He understands his restrictions we will see him back as scheduled no further questions - Last Documented On 07/17/2023 9:30AM ; [facility] Future Appointments Date Time Location Provi giorgio Follow Up 10/14/2023 1:15PM [facility] paedics [facility] B Maddy Malone PA-C Last Documented On 4 3:26PM ; [facility] Instructions to patient Lose weight Last Documented On 4 3:12PM ; [facility] Assessments Includes: Assessments from this encounter Findings - Overweight - Last Documented On 07/17/2023 9:30AM ; [facility] Right hip ORIF - Last Documented On 07/17/2023 9:30AM ; [facility] Instructions Includes: Instructions from this encounter Instructions to patient Lose weight Last Documented On 4 3:12PM ; [facility] Medical Equipment - Implanted Devices Includes: Current Devices No Medical Equipment Recorded Medications Includes: Medications discussed during this encounter and other current Medications New / Renewed during this visit Lamin Dixon MD on 07/14/2023 HYDROcodone-Acetaminophen 5- 325 MG Oral Tablet Provider: Lamin Dixon MD 7 day supply: 21 tablet, 0 refills Diagnosis: three times a day Pharmacy: [address] [place], [id number] - Last Documented On 4 3:59PM By Lamin Dixon ; [facility] Current Medications (continue as prescribed) Eliquis 5 MG Oral Tablet 07/08/2023 Provider: Diagnosis: Last Documented On 4 3:08PM By Kaitlin Christensen ; [facility] Folic Acid 1 MG Oral Tablet 07/08/2023 Provider: Diagnosis: Last Documented On 4 3:08PM By Kaitlin Christensen ; [facility] Levothyroxine Sodium 75 MCG Oral Tablet 07/08/2023 P rorozder: Diagnosis: Last Documented On 4 3:08PM By Kaitlin Christensen ; [facility] Methocarbamol 500 MG Oral Tablet 07/08/2023 Provider : Diagnosis: Last Documented On 4 3:08PM By Kaitlin Christensen ; [facility] oxyCODONE HCl 5 MG Oral Tablet 07/08/2023 Provider: Diagnosis: Last Documented On 4 3:08PM By Kaitlin Christensen ; [facility] Thiamine HCl 100 MG Oral Tablet 07/08/2023 Provider: Diagnosis: Last Documented On 4 3:08PM By Kaitlin Christensen ; [facility] Bumetanide 1 MG Oral Tablet 07/08/2023 Provider: Diagnosis: Last Documented On 4 3:08PM By Kaitlin Christensen ; [facility] Jardiance 10 MG Oral Tablet 06/24/2023 Provider: Diagnosis: Last Documented On 4 3:08PM By Kaitlin Christensen ; [facility] Amiodarone HCl 200 MG Oral Tablet 06/17/2023 Provide r: ERASMO TANRAMAKRISHNA Diagnosis: Last Documented On 4 3:08PM By Kaitlin Christensen ; [facility] Digoxin 250 MCG Oral Tablet 06/17/2023 Provider: ERASMO MURRAY Diagnosis: Last Documented On 4 3:08PM By Kaitlin Christensen ; [facility] Entresto 24-26 MG Oral Tablet 06/17/2023 Provider: ERASMO MURRAY Diagnosis: Last Documented On 4 3:08PM By Kaitlin Christensen ; [facility] Spironolactone 25 MG Oral Tablet 06/17/2023 Provider : JAIME MCKINNEY MD Diagnosis: Last Documented On 4 3:08PM By Kaitlin Christensen ; [facility] Metoprolol Succinate ER 50 M G Oral Tablet Extended Release 24 Hour 06/16/2023 Provider: Diagnosis: Last Documented On 4 3:08PM By Kaitlin Christensen ; [facility] Medications Administered Includes: Administered Medications from this encounter No Administered Medications Recorded Vital Signs Includes: Vital Signs from this encounter Vital Name 07/14/2023 03:09P Height (in) 72 Weight (lb) 210 Body Mass Index 28.5 Body Surface Area 2.2 Note: hdv Last Documented: On 07/14/2023 3:33PM ; [facility] Results Includes: Results discussed during this encounter [...] Last Documented On 4 9:30AM ; [facility] Caffeine use 07/14/2023 Last Documented On 4 9:30AM ; [facility] No recent change in diet 07/14/2023 Last Documented On 4 9:30AM ; [facility] Not exercising regularly 07/14/2023 Last Documented On 4 9:30AM ; [facility] Not using drugs 07/14/2023 Last Documented On 4 9:30AM ; [facility] Yes, current smoker. 07/14/2023 Last Documented On 4 9:30AM ; [facility] Smoking Status Unknown Procedures and Surgical History Includes: Procedures from this encounter Procedures Code Diagnosis Performing Provider Service Location Service Date PELVIS w/ 2-3 VIEW HIP (RIGHT) 25932 Displaced intertrochanteric fracture of right femur, init Maddy Malone PA-C [facility] B 07/14/2023 Last Documented On 4 1:48PM ; [facility] an X-ray was performed [id number] Last Documented On 4 3:34PM ; [facility] Surgical History Last Updated History of back surgery 07/14/2023 Last Documented On 4 9:30AM ; [facility] History of Previous Fractures 07/14/2023 Last Documented On 4 9:30AM ; [facility] Medical History Includes: Medical History addressed during this encounter Description Last Updated History of Fractures 07/14/2023 Last Documented On 4 9:30AM ; [facility] History of Hypertension 07/14/2023 Last Documented On 4 9:30AM ; [facility] History of Irregular Heartbeat 4 Last Documented On 4 9:30AM ; [facility] Family History Includes: Family History addressed during this encounter Description Last Updated No significant family history 07/14/2023 Last Documented On 4 9:30AM ; [facility] Review of Systems Includes: Review [...] Time Diagnosis Post Op Maddy Malone PA-C [facility] 4 2:10PM 3:16PM Overweight Insurance Includes: Active Insurance Policies Plan Name Member ID Group # Subscriber Relationship Effect laura Dates 1 - [facility] [id number] Alonso Vale Dylan Self Clinical Notes Includes: Clinical Notes from this encounter * Progress note Date Encounter Last Documented by 07/14/2023 Post Op Last documented on 07/17/2023; 9:30 AM, Maddy Malone PA-C; [facility] Active Problems & Conditions - [...]
--- OUTSIDE RECORDS SUMMARY | 2023-08-14 20:44 | XMS_ITS ---
Author Name Unknown Address [address] [place] [address] Phone Organization [facility] Address [address] [place] [address] Phone Care Team Providers Care Seed Cutter Name Role Phone Robbin VELAZCO, Charli Vale Primary Care Provider [phone] Problems Includes: Active, inactive, and resolved Problems All Visits Onset Date Resolved Date Provider Condition S tatus Joint Pain in the Right Hip 07/14/2023 Maddy Malone PA-C Active Last Documented On 4 3:08PM ; [facility], [facility] Plan of Treatment Future Appointments Date Time Location Provi giorgio Follow Up 10/14/2023 1:15PM [facility] Last Documented On 4 3:26PM ; [facility] Instructions to patient Lose weight Last Documented On 4 3:12PM ; [facility] Assessments Includes: Assessments for all patient encounters Findings Encounter Date Overweight Post Op with Maddy Malone PA-C 07/14/2023 Last Documented On 4 9:30AM ; [facility] Instructions Includes: Instructions for all patient encounters Instructions to patient Lose weight Last Documented On 4 3:12PM ; [facility] Medical Equipment - Implanted Devices Includes: Current and historical Devices No Medical Equipment Recorded Medications Includes: Current and historical Medications Current Medications (continue as prescribed) Eliquis 5 MG Oral Tablet 07/08/2023 Provider: Diagnosis: Last Documented On 4 3:08PM By Kaitlin Christensen ; [facility] Folic Acid 1 MG Oral Tablet 07/08/2023 Provider: Diagnosis: Last Documented On 4 3:08PM By Kaitlin Christensen ; [facility] Levothyroxine Sodium 75 MCG Oral Tablet 07/08/2023 P kelsider: Diagnosis: Last Documented On 4 3:08PM By Kaitlin Christensen ; [facility] Methocarbamol 500 MG Oral Tablet 07/08/2023 Provider : Diagnosis: Last Documented On 4 3:08PM By Kaitlin Christensen ; [facility] oxyCODONE HCl 5 MG Oral Tablet 07/08/2023 Provider: Diagnosis: Last Documented On 4 3:08PM By Kaitlin Christensen ; [facility] Thiamine HCl 100 MG Oral Tablet 07/08/2023 Provider: Diagnosis: Last Documented On 4 3:08PM By Kaitlin Christensen ; [facility] Bumetanide 1 MG Oral Tablet 07/08/2023 Provider: Diagnosis: Last Documented On 4 3:08PM By Kaitlin Christensen ; [facility] Jardiance 10 MG Oral Tablet 06/24/2023 Provider: Diagnosis: Last Documented On 4 3:08PM By Kaitlin Christensen ; [facility] Amiodarone HCl 200 MG Oral Tablet 06/17/2023 Provide r: ERASMO MURRAY Diagnosis: Last Documented On 4 3:08PM By Kaitlin Christensen ; [facility] Digoxin 250 MCG Oral Tablet 06/17/2023 Provider: ERASMO MURRAY Diagnosis: Last Documented On 4 3:08PM By Kaitlin Christensen ; [facility] Entresto 24-26 MG Oral Tablet 06/17/2023 Provider: ERASMO MURRAY Diagnosis: Last Documented On 4 3:08PM By Kaitlin Christensen ; [facility] Spironolactone 25 MG Oral [...] Recorded Vital Signs Includes: Vital Signs from 08/13/2022 through 08/14/2023 Vital Name 07/14/2023 03:09P Height (in) 72 Weight (lb) 210 Body Mass Index 28.5 Body Surface Area 2.2 Note: hdv Last Documented: On 07/14/2023 3:33PM ; [facility] Results Includes: Results from 08/13/2022 through 08/14/2023 No Results Recorded For Specified Dates History of Present Illness History of Present Illness not supported for this document type No History of Present Illness Recorded Social History Description Last Updated Alcohol use 07/14/2023 Last Documented On 4 9:30AM ; [facility] Caffeine use 07/14/2023 Last Documented On 4 9:30AM ; [facility] No recent change in diet 07/14/2023 Last Documented On 4 9:30AM ; [facility] Not exercising regularly 07/14/2023 Last Documented On 4 9:30AM ; [facility] Not using drugs 07/14/2023 Last Documented On 4 9:30AM ; [facility] Yes, current smoker. 07/14/2023 Last Documented On 4 9:30AM ; [facility] Smoking Status Unknown Procedures and Surgical History Includes: Procedures from 08/13/2022 through 08/14/2023 Procedures Code Diagnosis Performing Provider Service Location Service Date PELVIS w/ 2-3 VIEW HIP (RIGHT) 80299 Displaced intertrochanteric fracture of right femur, init Maddy Malone PA-C [facility] B 07/14/2023 Last Documented On 4 1:48PM ; [facility] TREAT THIGH FRACTURE (RIGHT) 81378 Displaced intertrochanteric fracture of right femur, init Lamin Dixon MD [facility] 06/07/2023 Last Documented On 4 12:30PM ; [facility] Surgical History Last Updated History of back surgery 07/14/2023 Last Documented On 4 9:30AM ; [facility] History of Previous Fractures 07/14/2023 Last Documented On 4 9:30AM ; [facility] Medical History Includes: Medical History in patient's chart Description Last Updated History of Fractures 07/14/2023 Last Documented On 4 9:30AM ; [facility] History of Hypertension 07/14/2023 Last Documented On 4 9:30AM ; [facility] History of Irregular Heartbeat 4 Last Documented On 4 9:30AM ; [facility] Family History Includes: Family History in patient's chart Description Last Updated No significant family history 07/14/2023 Last Documented On 4 9:30AM ; [facility] Review of Systems Review of Systems not supported for this document type No Review of Systems Recorded Mental Status Description No anxiety Functional Status No Functional Status Recorded Physical Exam Physical Exam not supported for this document type No Physical Exam Recorded Allergies Includes: Active, inactive, and resolved Allergies No Known Allergies Encounters Includes: Encounters from 08/13/2022 through 08/14/2023 Encounter Provider Location Date Check-In Time Check-Out Time Diagnosis Post Op Maddy Malone PA-C [facility] B 07/14/19 24 2:10PM 3:16PM Overweight Consult Lamin Dixon MD [facility] 06/27/19 24 09/15/2009 12:22PM 09/15/2009 11:59PM [facility] Lamin Dixon MD [facility] 06/07/19 24 09/15/2009 12:27PM 09/15/2009 11:59PM Insurance Includes: Active Insurance Policies Plan Name Member ID Group # Subscriber Relationship Effect laura Dates 1 - [facility] [id number] Alonso Richardson Self Clinical Notes Includes: Signed Clinical Notes starting from 02/14/2022 * Progress note Date Encounter Last Documented by 07/14/2023 Post Op Last documented on 07/17/2023; 9:30 AM, Maddy Malone PA-C; [facility] Active Problems & Conditions - [...]
--- OUTSIDE RECORDS SUMMARY | 2023-08-14 20:45 | XMS_ITS | Clinical Summary ---
Author Name Unknown Address [address] [place] [address] [place] [address] Phone Organization [facility] Address [address] [place] [address] Phone Care Team Providers Care Glaze Maker Name Role Phone Robbin VELAZCO, Charli Vale Primary Care Provider [phone] Reason for Visit and Chief Complaint WC FOLLOW UP/EST Problems Includes: Problems addressed during this encounter and other active Problems All Visits Onset Date Resolved Date Provider Condition S tatus Joint Pain in the Right Hip 07/14/2023 Maddy Malone PA-C Active Last Documented On 4 3:08PM ; [facility] Plan of Treatment Future Appointments Date Time Location Provi giorgio Follow Up 10/14/2023 1:15PM [facility] paedics [facility] B Maddy Malone PA-C Last Documented On 4 3:26PM ; [facility], [facility] Assessments Includes: Assessments from this encounter No Assessments Recorded Medical Equipment - Implanted Devices Includes: Current Devices No Medical Equipment Recorded Medications Includes: Medications discussed during this encounter and other current Medications Current Medications (continue as prescribed) Eliquis 5 MG Oral Tablet 07/08/2023 Provider: Diagnosis: Last Documented On 4 3:08PM By Kaitlin Christensen ; [facility] Folic Acid 1 MG Oral Tablet 07/08/2023 Provider: Diagnosis: Last Documented On 4 3:08PM By Kaitlin Christensen ; [facility], [facility] Levothyroxine Sodium 75 MCG Oral Tablet 07/08/2023 P rovider: Diagnosis: Last Documented On 4 3:08PM By Kaitlin Christensen ; [facility], [facility] Methocarbamol 500 MG Oral Tablet 07/08/2023 Provider : Diagnosis: Last Documented On 4 3:08PM By Kaitlin Christensen ; [facility], [facility] oxyCODONE HCl 5 MG Oral Tablet 07/08/2023 Provider: Diagnosis: Last Documented On 4 3:08PM By Kaitlin Christensen ; [facility], [facility] Thiamine HCl 100 MG Oral Tablet 07/08/2023 Provider: Diagnosis: Last Documented On 4 3:08PM By Kaitlin Christensen ; [facility], [facility] Bumetanide 1 MG Oral Tablet 07/08/2023 Provider: Diagnosis: Last Documented On 4 3:08PM By Kaitlin Christensen ; [facility], [facility] Jardiance 10 MG Oral Tablet 06/24/2023 Provider: Diagnosis: Last Documented On 4 3:08PM By Kaitlin Christensen ; [facility], [facility] Amiodarone HCl 200 MG Oral Tablet 06/17/2023 Provide r: ERASMO MURRAY Diagnosis: Last Documented On 4 3:08PM By Kaitlin Christensen ; [facility], [facility] Digoxin 250 MCG Oral Tablet 06/17/2023 Provider: ERASMO MURRAY Diagnosis: Last Documented On 4 3:08PM By Kaitlin Christensen ; [facility], [facility] Entresto 24-26 MG Oral Tablet 06/17/2023 Provider: ERASMO MURRAY Diagnosis: Last Documented On 4 3:08PM By Kaitlin Christensen ; [facility], [facility] Spironolactone 25 MG Oral Tablet 06/17/2023 Provider : JAIME MCKINNEY MD Diagnosis: Last Documented On 4 3:08PM By Kaitlin Christensen ; [facility], [facility] Metoprolol Succinate ER 50 M G Oral Tablet Extended Release 24 Hour 06/16/2023 Provider: Diagnosis: Last Documented On 4 3:08PM By Kaitlin Christensen ; [facility], [facility] Medications Administered Includes: Administered Medications from [...] Diagnosis WC FOLLOW UP/EST Charli Siegel MD [facility] 10/24/19 10 8:55AM 9:54AM Insurance Includes: Active Insurance Policies Plan Name Member ID Group # Subscriber Relationship Effect laura Dates 1 - [facility] [id number] Alonso Richardson Self Clinical Notes Includes: Clinical Notes from this encounter No Clinical Notes Recorded
--- OUTSIDE RECORDS SUMMARY | 2023-08-14 20:45 | XMS_ITS | Clinical Summary ---
Author Name Unknown Address [address] [place] [address] [place] [address] Phone Organization [facility] , [facility] Address [address] [address] Phone Care Team Providers Care Title Camera Operator Name Role Phone Robbin VELAZCO, Charli Vale Primary Care Provider [phone] Reason for Visit and Chief Complaint [facility] Health Problems Includes: Problems addressed during this encounter and other active Problems All Visits Onset Date Resolved Date Provider Condition S tatus Joint Pain in the Right Hip 07/14/2023 Maddy Malone PA-C Active Last Documented On 4 3:08PM ; [facility], [facility] Plan of Treatment Future Appointments Date Time Location Provi giorgio Follow Up 10/14/2023 1:15PM [facility] paedics [facility] B Maddy Malone PA-C Last Documented On 4 3:26PM ; [facility], [facility] Assessments Includes: Assessments from this encounter No Assessments Recorded Medical Equipment - Implanted Devices Includes: Current Devices No Medical Equipment Recorded Medications Includes: Medications discussed during this encounter and other current Medications Current Medications (continue as prescribed) Eliquis 5 MG Oral Tablet 07/08/2023 Provider: Diagnosis: Last Documented On 4 3:08PM By Kaitlin Christensen ; [facility], [facility] Folic Acid 1 MG Oral Tablet 07/08/2023 Provider: Diagnosis: Last Documented On 4 3:08PM By Kaitlin Christensen ; [facility], [facility] Levothyroxine Sodium 75 MCG Oral Tablet 07/08/2023 P rovider: Diagnosis: Last Documented On 4 3:08PM By Kaitlin Christensen ; [facility], [facility] Methocarbamol 500 MG Oral Tablet 07/08/2023 Provider : Diagnosis: Last Documented On 4 3:08PM By Kaitlin Christensen ; [facility], [facility] oxyCODONE HCl 5 MG Oral Tablet 07/08/2023 Provider: Diagnosis: Last Documented On 4 3:08PM By Kaitlin Christensen ; [facility], [facility] Thiamine HCl 100 MG Oral Tablet 07/08/2023 Provider: Diagnosis: Last Documented On 4 3:08PM By Kaitlin Christensen ; [facility], [facility] Bumetanide 1 MG Oral Tablet 07/08/2023 Provider: Diagnosis: Last Documented On 4 3:08PM By Kaitlin Christensen ; [facility], [facility] Jardiance 10 MG Oral Tablet 06/24/2023 Provider: Diagnosis: Last Documented On 4 3:08PM By Kaitlin Christensen ; [facility], [facility] Amiodarone HCl 200 MG Oral Tablet 06/17/2023 Provide r: ERASMO TREVOR Diagnosis: Last Documented On 4 3:08PM By Kaitlin Christensen ; [facility], [facility] Digoxin 250 MCG Oral Tablet 06/17/2023 Provider: ERASMO MURRAY Diagnosis: Last Documented On 4 3:08PM By Kaitlin Christensen ; [facility], [facility] Entresto 24-26 MG Oral Tablet 06/17/2023 Provider: ERASMO MURRAY Diagnosis: Last Documented On 4 3:08PM By Kaitlin Christensen ; [facility], [facility] Spironolactone 25 MG Oral Tablet 06/17/2023 Provider : JAIME MCKINNEY MD Diagnosis: Last Documented On 4 3:08PM By Kaitlin Christensen ; [facility], [facility] Metoprolol Succinate ER 50 M G Oral Tablet Extended Release 24 Hour 06/16/2023 Provider: Diagnosis: Last Documented On 4 3:08PM By Kaitlin Christensen ; [facility], [facility] Medications Administered Includes: Administered Medications from [...] Location Service Date TREAT THIGH FRACTURE (RIGHT) 13479 Displaced intertrochanteric fracture of right femur, init Lamin Dixon MD [facility] 06/07/2023 Last Documented On 4 12:30PM ; [facility] Medical History Includes: Medical History [...] Location Date Check-In Time Check-Out Time Diagnosis [facility] Lamin Dixon MD [facility] 4 12:27PM 11:59PM Insurance Includes: Active Insurance Policies Plan Name Member ID Group # Subscriber Relationship Effect laura Dates - [facility] [id number] Alonso Palma Clinical Notes Includes: Clinical Notes from this encounter No Clinical Notes Recorded
--- OUTSIDE RECORDS SUMMARY | 2023-08-14 20:45 | XMS_ITS | Clinical Summary ---
Author Name Unknown Address [address] [place] [address] [place] [address] Phone Organization [facility] , [facility] Address [address] [place] [address] Phone Care Team Providers Care Engine Pilot Name Role Phone Robbin VELAZCO, Charli Vale Primary Care Provider [phone] Reason for Visit and Chief Complaint WC FOLLOW UP/EST Problems Includes: Problems addressed during this encounter and other active Problems All Visits Onset Date Resolved Date Provider Condition S tatus Joint Pain in the Right Hip 07/14/2023 Maddy Malone PA-C Active Last Documented On 4 3:08PM ; [facility] Plan of Treatment Future Appointments Date Time Location Provi giorgio Follow Up 10/14/2023 1:15PM [facility] paedics [facility] B Maddy Malone PA-C Last Documented On 4 3:26PM ; [facility], [facility] Assessments Includes: Assessments from this encounter No Assessments Recorded Medical Equipment - Implanted Devices Includes: Current Devices No Medical Equipment Recorded Medications Includes: Medications discussed during this encounter and other current Medications Current Medications (continue as prescribed) Eliquis 5 MG Oral Tablet 07/08/2023 Provider: Diagnosis: Last Documented On 4 3:08PM By Kaitlin Christensen ; [facility] Folic Acid 1 MG Oral Tablet 07/08/2023 Provider: Diagnosis: Last Documented On 4 3:08PM By Kaitlin Christensen ; [facility], [facility] Levothyroxine Sodium 75 MCG Oral Tablet 07/08/2023 P rovider: Diagnosis: Last Documented On 4 3:08PM By Kaitlin Christenesn ; [facility], [facility] Methocarbamol 500 MG Oral Tablet 07/08/2023 Provider : Diagnosis: Last Documented On 4 3:08PM By Kaitlin Christensen ; [facility], [facility] oxyCODONE HCl 5 MG Oral Tablet 07/08/2023 Provider: Diagnosis: Last Documented On 4 3:08PM By Kaitlin Christensen ; [facility], [facility] Thiamine HCl 100 MG Oral Tablet 07/08/2023 Provider: Diagnosis: Last Documented On 4 3:08PM By Kaitlin Christensen ; [facility], [facility] Bumetanide 1 MG Oral Tablet 07/08/2023 Provider: Diagnosis: Last Documented On 4 3:08PM By Kaitlin Christensen ; [facility], [facility] Jardiance 10 MG Oral Tablet 06/24/2023 Provider: Diagnosis: Last Documented On 4 3:08PM By Kaitlin Christensen ; [facility], [facility] Amiodarone HCl 200 MG Oral Tablet 06/17/2023 Provide r: ERASMO MURRAY Diagnosis: Last Documented On 4 3:08PM By Kaitlin Christensen ; [facility], [facility] Digoxin 250 MCG Oral Tablet 06/17/2023 Provider: ERASMO MURRAY Diagnosis: Last Documented On 4 3:08PM By Kaitlin Christensen ; [facility], [facility] Entresto 24-26 MG Oral Tablet 06/17/2023 Provider: ERASMO MURRAY Diagnosis: Last Documented On 4 3:08PM By Kaitlin Christensen ; [facility], [facility] Spironolactone 25 MG Oral Tablet 06/17/2023 Provider : JAIME MCKINNEY MD Diagnosis: Last Documented On 4 3:08PM By Kaitlin Christensen ; [facility], [facility] Metoprolol Succinate ER 50 M G Oral Tablet Extended Release 24 Hour 06/16/2023 Provider: Diagnosis: Last Documented On 4 3:08PM By Kaitlin Christensen ; [facility], [facility] Medications Administered Includes: Administered Medications from [...] Diagnosis WC FOLLOW UP/EST Charli Siegel MD [facility] 09/28/19 10 8:45AM 10:32AM Insurance Includes: Active Insurance Policies Plan Name Member ID Group # Subscriber Relationship Effect laura Dates 1 - [id number] [id number] Alonso Richardson Self Clinical Notes Includes: Clinical Notes from this encounter No Clinical Notes Recorded
--- OUTSIDE RECORDS SUMMARY | 2023-08-14 20:45 | XMS_ITS | Clinical Summary ---
Author Name Unknown Address [address] [place] [address] [place] [address] Phone Organization [facility] , [facility] Address [address] [place] [address] Phone Care Team Providers Care Smoke Jumper Supervisor Name Role Phone Robbin VELAZCO, Charli Vale Primary Care Provider [phone] Reason for Visit and Chief Complaint Consult Problems Includes: Problems addressed during this encounter and other active Problems All Visits Onset Date Resolved Date Provider Condition S tatus Joint Pain in the Right Hip 07/14/2023 Maddy Malone PA-C Active Last Documented On 4 3:08PM ; [facility] Plan of Treatment Future Appointments Date Time Location Provi giorgio Follow Up 10/14/2023 1:15PM [facility] paedics [facility] B Maddy Malone PA-C Last Documented On 4 3:26PM ; [facility], [facility] Assessments Includes: Assessments from this encounter No Assessments Recorded Medical Equipment - Implanted Devices Includes: Current Devices No Medical Equipment Recorded Medications Includes: Medications discussed during this encounter and other current Medications Current Medications (continue as prescribed) Eliquis 5 MG Oral Tablet 07/08/2023 Provider: Diagnosis: Last Documented On 4 3:08PM By Kaitlin Christensen ; [facility], [facility] Folic Acid 1 MG Oral Tablet 07/08/2023 Provider: Diagnosis: Last Documented On 4 3:08PM By Kaitlin Christensen ; [facility], [facility] Levothyroxine Sodium 75 MCG Oral Tablet 07/08/2023 Cris dolander: Diagnosis: Last Documented On 4 3:08PM By Kaitlin Christensen ; [facility], [facility] Methocarbamol 500 MG Oral Tablet 07/08/2023 Provider : Diagnosis: Last Documented On 4 3:08PM By Kaitlin Christensen ; [facility], [facility] oxyCODONE HCl 5 MG Oral Tablet 07/08/2023 Provider: Diagnosis: Last Documented On 4 3:08PM By Kaitlin Christensen ; [facility], [facility] Thiamine HCl 100 MG Oral Tablet 07/08/2023 Provider: Diagnosis: Last Documented On 4 3:08PM By Kaitlin Christensen ; [facility], [facility] Bumetanide 1 MG Oral Tablet 07/08/2023 Provider: Diagnosis: Last Documented On 4 3:08PM By Kaitlin Christensen ; [facility], [facility] Jardiance 10 MG Oral Tablet 06/24/2023 Provider: Diagnosis: Last Documented On 4 3:08PM By Kaitlin Christensen ; [facility], [facility] Amiodarone HCl 200 MG Oral Tablet 06/17/2023 Provide r: ERASMOARIANA TANRAMAKRISHNA Diagnosis: Last Documented On 4 3:08PM By Kaitlin Christensen ; [facility], [facility] Digoxin 250 MCG Oral Tablet 06/17/2023 Provider: ERASMO MURRAY Diagnosis: Last Documented On 4 3:08PM By Kaitlin Christensen ; [facility], [facility] Entresto 24-26 MG Oral Tablet 06/17/2023 Provider: ERASMO MURRAY Diagnosis: Last Documented On 4 3:08PM By Kaitlin Christensen ; [facility], [facility] Spironolactone 25 MG Oral Tablet 06/17/2023 Provider : JAIME MCKINNEY MD Diagnosis: Last Documented On 4 3:08PM By Kaitlin Christensen ; [facility], [facility] Metoprolol Succinate ER 50 M G Oral Tablet Extended Release 24 Hour 06/16/2023 Provider: Diagnosis: Last Documented On 4 3:08PM By Kaitlin Christensen ; [facility], [facility] Medications Administered Includes: Administered Medications from this [...] Check-Out Time Diagnosis Consult Lamin Dixon MD [facility] 4 12:22PM 11:59PM Insurance Includes: Active Insurance Policies Plan Name Member ID Group # Subscriber Relationship Effect laura Dates 1 - [facility] Plan [id number] Alonso Richardson Self Clinical Notes Includes: Clinical Notes from this encounter No Clinical Notes Recorded
[2023-08-14 21:00] VITALS: BP 99/74; PULSE 101; O2SAT 96
[2023-08-14 21:01] LABS: Basophils # 0.1 K/mm3 (0-0.2); Basophils % 1.4 % (0.1-2.0); Eosinophils # 0.1 K/mm3 (0.0-0.4); Eosinophils % 1.1 % (0.1-12.0); Hematocrit 36.6 % (42.0-52.0); Hemoglobin 11.5 g/dL (14.1-18.0); Lymphocytes # 2.5 K/mm3 (0.7-4.5); Lymphocytes % 32.6 % (10-50); Mean Corpuscular HGB Conc 31.4 g/dL (31.8-35.4); Mean Corpuscular Volume 101.7 fl (80-94); Mean Platelet Volume 8.5 fl (7.4-10.4); Monocytes # 0.4 K/mm3 (0.1-1.0); Monocytes % 5.3 % (1.7-9.3); Neutrophils # 4.6 K/mm3 (1.8-7.8); Neutrophils % 59.5 % (37.0-80.0); Platelet Count 161 K/mm3 (142-424); Red Cell Distribution Width 17.7 % (11.5-17.5); White Blood Count 7.6 K/mm3 (4.8-10.8)
[2023-08-14 21:10] LABS: Chloride 103 mmol/L (98-107); Potassium 3.1 mmoL/L (3.5-5.1); Sodium 136 mmol/L (136-145)
[2023-08-14 21:13] LABS: Alanine Aminotransferase 17 U/L (12-78); Albumin Level 3.5 g/dl (3.5-5.0); Albumin/Globulin Ratio 0.9 (1.1-1.8); Alkaline Phosphatase 240 U/L (38-126); Anion Gap 15.1 mEq/L (5-15); Aspartate Amino Transferase 47 U/L (17-59); Bilirubin,Total 0.8 mg/dl (0.2-1.3); Blood Urea Nitrogen 9 mg/dl (9-20); Calcium 7.9 mg/dl (8.4-10.2); Carbon Dioxide 21 mmol/L (22.0-30.0); Creatinine Clearance Estimated 88 mL/min (50-200); Estimated Glomerular Filt Rate 77 ml/min (>60); GFR (African American) 93 ML/MIN (>60); Globulin 3.7 g/dL (1.3-3.2); Glucose 103 mg/dl (74-100); Total Protein,Serum 7.2 g/dl (6.3-8.2)
[2023-08-14 21:23] LABS: Ethyl Alcohol 351 mg/dl (0-10)
[2023-08-14 21:46] VITALS: BP 109/82; PULSE 110; O2SAT 98
[2023-08-14 22:30] VITALS: BP 108/79; PULSE 111; O2SAT 98
--- NOTE | 2023-08-14 22:34 | PC.NURSE ---
[facility]ed [facility] for bed assignment
--- NOTE | 2023-08-14 22:51 | PC.NURSE ---
Report called to Oliver Goldstein RN
[2023-08-14] MEDS: LACTATED RINGERS 1000ML 1,000 ML 999 ML IV (22:53)
[2023-08-14] MEDS: CALCIUM GLUC IN NACL, ISO-OSM 1 GM/50 ML BAG IV (22:54)
[2023-08-14] MEDS: POTASSIUM CHLORIDE 20MEQ TAB 40 MEQ PO (22:54)
--- NOTE | 2023-08-14 23:01 | CT_ITS ---
PROCEDURE INFORMATION: Exam: CT Right Lower Extremity Without Contrast, Hip Exam date and time: 08/14/2023 11:17 PM Age: 58 years old Clinical indication: Pain; Hip; Right; Additional info: Edema, pain TECHNIQUE: Imaging protocol: CT of the right lower extremity without contrast was performed. Exam focused on the hip. Radiation optimization: All CT scans at this facility use at least one of these dose optimization techniques: automated exposure control; mA and/or kV adjustment per patient size (includes targeted exams where dose is matched to clinical indication); or iterative reconstruction. COMPARISON: MR HIP RT WO CON 26/06/2023 13:58 FINDINGS: Bones/joints: Mildly displaced and comminuted right femoral greater trochanteric fracture. Chronic intertrochanteric fracture. Femoral neck screw and intramedullary geovanna of the right femur appear intact. Soft tissues: Heterotopic bone and edema around the greater trochanter of the femur. Partially imaged right scrotal cystic structure as on prior study, possibly a hydrocele. Lateral soft tissue scar overlying the hip. IMPRESSION: Mildly displaced and comminuted right femoral greater trochanteric fracture.
--- NOTE | 2023-08-14 23:01 | CT_ITS ---
PROCEDURE INFORMATION: Exam: CT Right Lower Extremity Without Contrast, Knee Exam date and time: 08/14/2023 11:20 PM Age: 58 years old Clinical indication: Pain; Knee; Right; Additional info: Edema, pain TECHNIQUE: Imaging protocol: CT of the right lower extremity without contrast was performed. Exam focused on the knee. Radiation optimization: All CT scans at this facility use at least one of these dose optimization techniques: automated exposure control; mA and/or kV adjustment per patient size (includes targeted exams where dose is matched to clinical indication); or iterative reconstruction. COMPARISON: CT HIP RT WO CON 14/08/2023 23:17 FINDINGS: Bones/joints: Mild tricompartmental osteoarthrosis. Large suprapatellar knee effusion. No acute fracture or dislocation. Meniscal calcifications. Soft tissues: Normal. IMPRESSION: 1. Large suprapatellar knee effusion. Soft tissue injury versus infection are considerations. If there is clinical suspicion for infection, consider fluid sampling. 2. No acute fracture or dislocation.
--- NOTE | 2023-08-14 23:03 | PC.NURSE ---
I rounded on the pt, no new complaints at this time. vss. I elevated the pts R leg on a pillow and took him a warm blanket.
--- NOTE | 2023-08-14 23:07 | PC.NURSE ---
was requested by receiving nurse to have patient complete ct while still down here.
[2023-08-14 23:16] VITALS: BP 118/72; PULSE 100; RESP 18; TEMP 36.4; O2SAT 98
--- NOTE | 2023-08-14 23:36 | EXP.HP ---
History of Present Illness *Admission Date: 08/14/23 *Reason for visit:: Right lower extremity pain *History of present illness: This is a 58-year-old male with past medical history of systolic heart failure, atrial flutter/flutter on Eliquis, alcoholism, COPD, hypertension, hypothyroidism, recent right hip repair who presents emergency department today with complaints of right hip pain. He reports having right hip surgery approximately 2 weeks ago with [facility] and was discharged home with home health. He states he has not had any home health help since he has been home. He does live alone and has had difficulty ambulating on his right lower extremity. Also has had difficulty cleaning and bathing or completing any of his ADLs. He presents back here with pain in his right hip and his right knee. Patient endorses prior history of right knee surgery years ago . He also reports heavy alcohol intake with 1/5 intake of liquor daily. Denies any falls, recent trauma, denies fever, chest pain, congestion. Emergency department workup mostly unremarkable except for mild hypokalemia, elevated alcohol at 351 and an elevated alk phos. Given his functional decline and need for physical therapy, further evaluation of right lower extremities pain and swelling. He will be admitted to hospital service for further evaluation management. [facility] Disclaimer: The information contained in this section may have been updated after the patient was seen, as this information can be updated by other users. 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 Testicular swelling, right Hypertension Tobacco abuse Alcohol abuse Tobacco use Paroxysmal atrial fibrillation Alcoholism Anxiety GERD (gastroesophageal reflux disease) Laceration of finger, left, complicated COPD (chronic obstructive pulmonary disease) Pulmonary hypertension Cirrhosis, alcoholic CHF (congestive heart failure) Hypertension Atrial fibrillation with rapid ventricular response Exposure to COVID-19 virus Surgical History History of discectomy History of cardiac radiofrequency ablation Family History Other Cancer Hypertension Stroke Substance abuse Social History Smoking Status: Unknown if ever smoked alcohol intake: current alcohol intake frequency: 3 or more drinks per day substance use type: denies use current occupational status: employed Travel in the last 8 weeks: None household members: significant other housing: house 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 current occupational exposures/hazards: No caffeine: Yes Review of Systems Review of Systems Review of systems (narrative): All negative except for HPI Meds Home Medications and Allergies Home Medications Medication Instructions Recorded Confirmed Type digoxin 250 mcg (0.25 mg) tablet 250 mcg PO DAILY #30 tabs 03/28/23 07/25/23 Rx sacubitril 24 mg-valsartan 26 mg 1 tab PO BID #60 tabs 03/28/23 07/25/23 Rx tablet (Entresto) spironolactone 25 mg tablet 25 mg PO DAILY #30 tabs 03/28/23 07/25/23 Rx (Aldactone) amiodarone 200 mg tablet 400 mg PO BID 06/16/23 07/25/23 History apixaban 5 mg tablet 5 mg PO BID 06/16/23 07/25/23 History empagliflozin 10 mg tablet 10 mg PO DAILY #30 tabs 06/16/23 07/25/23 Rx (Jardiance) metoprolol succinate 50 mg 50 mg PO DAILY #30 tabs 06/16/23 07/25/23 Rx tablet,extended release 24 hr (Toprol XL) sertraline 100 mg tablet 100 mg PO DAILY 06/16/23 07/25/23 History bumetanide 1 mg tablet 1 mg PO DAILY 07/25/23 07/25/23 History folic acid 1 mg tablet 1 mg PO DAILY 07/25/23 07/25/23 History levothyroxine 100 mcg tablet 100 mcg PO DAILYDM 30 days #30 tabs 07/25/23 Rx (Synthroid) magnesium oxide 400 mg (241.3 mg 400 mg PO DAILY 10 days #10 tabs 07/25/23 Rx magnesium) tablet methocarbamol 500 mg tablet 500 mg PO QID 07/25/23 07/25/23 History thiamine HCl (vitamin B1) 100 mg 100 mg PO DAILY 07/25/23 07/25/23 History tablet New Prescriptions to Start Prescriptions: Allergies Allergy/AdvReac Type Severity Reaction Status Date / Time hydrochlorothiazide AdvReac Unknown Other Verified 07/16/23 15:07 Exam Data for Last 24 hours Vital signs and Labs for Last 24 Hours: Temp Pulse Resp BP Pulse Ox O2 Del Method 97.6 F 100 H 18 118/72 98 Room Air 08/14/23 23:16 08/14/23 23:16 08/14/23 23:16 08/14/23 23:16 08/14/23 22:30 08/14/23 23:16 Laboratory Results - last 24 hr 08/14/23 20:52: WBC 7.6, RBC 3.60 L, Hgb 11.5 L, Hct 36.6 L, MCV 101.7 H, MCH 32.0 H, MCHC 31.4 L, RDW 17.7 H, Plt Count 161, MPV 8.5, Neut % (Auto) 59.5, Lymph % (Auto) 32.6, Shannon % (Auto) 5.3, Eos % (Auto) 1.1, Baso % (Auto) 1.4, Neut # (Auto) 4.6, Lymph # (Auto) 2.5, Shannon # (Auto) 0.4, Eos # (Auto) 0.1, Baso # (Auto) 0.1, Sodium 136, Potassium 3.1 L, Chloride 103, Carbon Dioxide 21 L, Anion Gap 15.1 H, BUN 9, Creatinine 1.00, Estimated Creat Clear 88, Estimated GFR 77, Est GFR ( Amer) 93, Glucose 103 H, Calcium 7.9 L, Total Bilirubin 0.8, AST 47, ALT 17, Alkaline Phosphatase 240 H, Total Protein 7.2, Albumin 3.5, Globulin 3.7 H, Albumin/Globulin Ratio 0.9 L, Plasma/Serum Alcohol 351 H I & O for Last 24 hours: Intake & Output 08/11/23 08/12/23 08/13/23 08/14/23 23:59 23:59 23:59 23:59 Weight 77.111 kg Constitutional Constitutional: no acute distress *Routine HEENT Exam Head: Present normocephalic Eye: Present EOMI and PERRL ENT: Present mucous membranes moist *Routine Neck Exam Neck: Present supple; Absent lymphadenopathy *Routine Respiratory Exam Respiratory: Present CTA bilaterally *Routine Cardiovascular Exam Cardiovascular: Present RRR *Routine Abdominal Exam Abdominal: Present soft and normoactive bowel sounds; Absent tenderness *Routine Rectal Exam Rectal:: deferred *Routine Genitalia Exam Genitalia:: deferred *Routine Extremities Exam Extremities: Absent full ROM Comments: Right lower extremity hip edema and notable right knee edema. Right knee is warm to touch. Blunted sensation to his right lower extremity but patient states this is normal. Right hip sutures intact, dry, no infection noted. *Routine Skin Exam Skin: Present warm; Absent rash *Routine Neurological Exam Neurological: Present alert and oriented X3 Assessment and Plan *Assessment and plan (1) Right leg pain: Status: Acute Category: Medical Code(s): M79.604 - Pain in right leg (2) Alcoholism: Status: Acute Category: Medical Code(s): F10.20 - Alcohol dependence, uncomplicated (3) Declining functional status: Status: Acute Category: Medical Code(s): R53.81 - Other malaise (4) Paroxysmal atrial flutter: Status: Acute Category: Medical Code(s): I48.92 - Unspecified atrial flutter Plan Admit to medicine #Right lower extremity pain Notable swelling to right hip and right knee. Will obtain CT imaging to further evaluate. Right hip x-ray without abnormality Will obtain Doppler of the right lower extremity as well ESR and CR pending given possible right knee effusion PT OT As needed pain medication #Alcoholism CIWA protocol with multivitamin cocktail infusion Case management consult #Paroxysmal A-fib/flutter Continue home Eliquis Continue home antiarrhythmic And metoprolol #Chronic systolic heart failure Continue home Bumex Continue home Entresto #Hypothyroidism Continue levothyroxine DVT PPx Home Eliquis Full Code
[2023-08-14 23:54] LABS: Erythrocyte Sedimentation Rate 56 mm/hr (0-20)
[2023-08-15] VITALS (9 sets, daily range): BP systolic 111–143; BP diastolic 72–107; PULSE 100–140; RESP 17–22; TEMP 36.6–36.9; O2SAT 95–98; BMI 30.1
[2023-08-15 00:33] LABS: Magnesium 1.1 mg/dl (1.6-2.3); Phosphorous 2.5 mg/dl (2.5-4.5)
[2023-08-15 00:38] LABS: C-Reactive Protein 108.5 mg/L (0-4)
--- NOTE | 2023-08-15 00:39 | PC.NURSE ---
Patient has not been compliant with current prescribed medications. Unable to complete med list due to patient not being able to confirm nor deny any medications listed.
[2023-08-15] MEDS: MORPHINE 2MG/ML SYRINGE 2 MG IV ×3 (01:00→21:32)
[2023-08-15] MEDS: ACETAMINOPHEN 325MG TAB 650 MG PO ×2 (01:01→20:35)
[2023-08-15] MEDS: AMIODARONE 200MG TABLET 200 MG PO (01:18)
[2023-08-15] MEDS: MAGNESIUM SULFATE IN WATER 2 GM/50 ML PIGGYBACK IV (01:18)
[2023-08-15] MEDS: METOPROLOL TARTRATE 5MG/5ML VIAL 5 MG IV (01:21)
[2023-08-15] MEDS: LORazepam 1MG TABLET 1 MG PO ×2 (01:51→20:55)
[2023-08-15 06:55] LABS: Basophils # 0.1 K/mm3 (0-0.2); Basophils % 1.7 % (0.1-2.0); Eosinophils # 0.2 K/mm3 (0.0-0.4); Hematocrit 38.2 % (42.0-52.0); Hemoglobin 11.9 g/dL (14.1-18.0); Lymphocytes # 2.1 K/mm3 (0.7-4.5); Lymphocytes % 38.5 % (10-50); Mean Corpuscular HGB Conc 31.3 g/dL (31.8-35.4); Mean Corpuscular Hemoglobin 32.6 pg (27.0-31.2); Mean Corpuscular Volume 104.1 fl (80-94); Mean Platelet Volume 8.8 fl (7.4-10.4); Monocytes # 0.4 K/mm3 (0.1-1.0); Monocytes % 8.1 % (1.7-9.3); Neutrophils # 2.6 K/mm3 (1.8-7.8); Neutrophils % 48.7 % (37.0-80.0); Platelet Count 132 K/mm3 (142-424); Red Blood Count 3.67 M/mm3 (4.60-6.20); Red Cell Distribution Width 17.9 % (11.5-17.5); White Blood Count 5.4 K/mm3 (4.8-10.8)
[2023-08-15 07:04] LABS: Chloride 104 mmol/L (98-107); Sodium 136 mmol/L (136-145)
[2023-08-15 07:05] LABS: Potassium 4.4 mmoL/L (3.5-5.1)
[2023-08-15 07:08] LABS: Anion Gap 14.4 mEq/L (5-15); Blood Urea Nitrogen 9 mg/dl (9-20); Carbon Dioxide 22 mmol/L (22.0-30.0); Creatinine Clearance Estimated 109 mL/min (50-200); Estimated Glomerular Filt Rate 77 ml/min (>60); GFR (African American) 93 ML/MIN (>60); Glucose 68 mg/dl (74-100)
--- NOTE | 2023-08-15 07:43 | HMH.PHAINT1 ---
Pharmacy Intervention Comments: HOME MEDICATION LIST VERIFIED USING LIST FROM OUTPATIENT PHARMACY
--- NOTE | 2023-08-15 08:35 | PC.NURSE ---
attempted to reach MD about Pt's BP of 130/100. Sent straight to voicemail.
[2023-08-15] MEDS: AMIODARONE 200MG TABLET 400 MG PO ×2 (09:29→20:35)
[2023-08-15] MEDS: MVI, ADULT NO.1 WITH VIT K 10 ML, THIAMINE HCL 100 MG, MAGNESIUM SULFATE 2 GM in LACTAT... 125 ML IV (09:29)
--- NOTE | 2023-08-15 10:16 | HMH.PTEV ---
Physical Therapy Evaluation Rehab PT IP Evaluation Start: 08/15/23 07:44 Freq: ONCE Status: Active Protocol: Document 08/15/23 10:03 FREID (Rec: 08/15/23 10:16 FREDI [id number]) Subjective/History History History Per H&P: This is a 58-year-old male with past medical history of systolic heart failure, atrial flutter/flutter on Eliquis, alcoholism, COPD, hypertension , hypothyroidism, recent right hip repair who presents emergency department today with complaints of right hip pain. He reports having right hip surgery approximately 2 weeks ago with Yaz[employer] and was discharged home with home health. He states he has not had any home health help since he has been home. He does live alone and has had difficulty ambulating on his right lower extremity. Also has had difficulty cleaning and bathing or completing any of his ADLs. He presents back here with pain in his right hip and his right knee. Patient endorses prior history of right knee surgery years ago . He also reports heavy alcohol intake with 1/5 intake of liquor daily. Denies any falls, recent trauma, denies fever, chest pain, congestion. Subjective Subjective PLOF per pt report: Lives home alone in a single story home with ramped enterance. Using a RW for IND ambulation and was IND with ADLs. Driving prior. Primary limitation to current mobility is RLE pain causing him difficulty walking and getting in/out of tub. New diagnosis of cancer in past 12 No months? Rehab PT IP Eval Objective Appearance Patient Behavior Appropriate,Cooperative Patient Orientation Person,Place Difficulty following instructions none Speech Pattern Clear Ambulation Patient Able to Ambulate Yes Ambulation Observation IP General Gait Pattern Observation Antalgic Gait Ambulation Distance (feet) 12 Ambulation Assistive Device Standard Walker Ambulation Ability Contact Guard/Hand Hold Balance Ability to Arise Able, uses arms to help Sitting Balance Steady, safe Standing Balance Steady, wide stance Transfers Bed Transfer Ability Supervision/Stand by Sit to Stand Bed Transfer Ability Supervision/Stand by Rehab PT IP prob,goals,plan Problems Date of Evaluation: 08/15/23 PT IP Problems Transfers,Gait,Balance Rehab Potential Rehab Potential Good Equipment Needs Assistive Devices Rolling / Wheeled Walker Plan PT Intervention Plan Transfers,Gait,Balance, Therapeutic Exercise Other Intervention Plan 1-2 times PT Plan Frequency Daily Duration LOS Discharge Goals Bed Transfer Ability Independent Sit to Stand Chair Transfer Ability Independent Ambulation Assistive Device Rolling Walker Ambulation Distance (feet) 15 Discharge Plan PT Discharge Plan Pt's primary limitation to IND functional mobility is pain in his R LE. Pt able to demo short ambulation distance but required SUP d/t antalgic gait and RW management. Pt may be safe to go home d/t good safety awareness and ability to ambulate household distances pending no further functional decline. If pt continues to have difficulty ambulating or his functional mobility worsens, pt may benefit from short-term rehabilitation prior to going home alone. Pt would benefit from skilled PT while at [facility] to prevent further functional decline and maximize safety with mobility. Eval Complexity Eval Charge Codes 51706 - Moderate Complexity PHYSICIAN CERTIFICATION: I certify the specified therapy services for Alonso Richardson are required, authorized, and reviewed every 30 days.
--- NOTE | 2023-08-15 10:18 | SW/DCPLANNER ---
I spoke w/ patient regarding plans once medically stable for discharge. PT/OT evaluated patient and recommended home vs placement. Patient stated that he prefer to return home due to having a dog at home. Patient is NOT interested in placement under his Medicaid at this time. I did explain to patient and home health is not an option due to insurance. I will continue to follow up w/ this patient during hospital admission to assist w/ any future needs/questions. Discharge date is unknown at this time.
--- NOTE | 2023-08-15 10:25 | HMH.OTEV ---
OT Inpatient Evaluation Rehab OT IP Evaluation Start: 08/15/23 07:44 Freq: ONCE Status: Active Protocol: Document 08/15/23 09:55 BONNIE (Rec: 08/15/23 10:[id number] Rehab OT IP Assessment Subjective History Pt is a 58-year-old male with past medical history of systolic heart failure, atrial flutter/flutter on Eliquis, alcoholism, COPD, hypertension , hypothyroidism, recent right hip repair who presented to ED with complaints of right hip pain. Pt reports having right hip surgery approximately 2 weeks ago with [employer] and was discharged home with home health. He states he has not had any home health help since he has been home. Pt reports difficulty ambulating on his right lower extremity. Also has had difficulty cleaning and bathing or completing any of his ADLs. He presents back to ED with pain in his right hip and his right knee. Patient endorses prior history of right knee surgery years ago . He also reports heavy alcohol intake with 1/5 intake of liquor daily. Denies any falls, recent trauma, denies fever, chest pain, congestion. Emergency department workup mostly unremarkable except for mild hypokalemia, elevated alcohol at 351 and an elevated alk phos. Pt was admitted to this facility on 08/14/23. PLOF: Pt reported they live alone in a single story home with ramp to enter home. Pt reports prior to admission and decline they were independent in ADLs and IADLs. Pt reported they were still driving, however they ahd to manually move R LE to maniupulate pedals. Pt reports they have a shower chair to complete bathing tasks, but pain in RLE has caused pt not to have a shower/bath in over 1 week. Pt reported they use a cane and walker to complete functional mobility. Pt reports they have no one to come and help at home. Pt reported pain in R LE has also prevented being able to complete LB dressing such as donning socks. Subjective They said something about draining it. Pt was supine in bed when therapy arrived this morning. Pt was agreeable to participate in initial OT eval this morning. Pt agreed to sit on EOB. Pt was oriented x3 . Pt went from supine to EOB with SBA. Pt was able to hold static sitting balance for ~2 minutes with SBA while therapy retrieved walker. Pt then completed a sit to stand transfer with Min Assist with walker. Pt completed functional mobility task of ~ 10 feet with walker, Min Assist. Pt reported being in alot of pain and returned to EOB. Pt then sat on EOB with CGA. Pt then went from EOB to supine with SBA. Pt was left supine in bed with call light and all other needs within reach. Objective Patient Orientation Person,Patient Baseline, Situation Bed Mobility bed mobility-scooting,bed mobility - supine/sit Assist Level Supervision/Stand by Transfer Training Sit/Stand Transfer Assist Level Minimal x 1 (25% assist) Decrease in Endurance Yes Rehab OT IP prob,goals,plan Problems Date of Evaluation: 08/15/23 OT IP Problems Bed Mobility,Transfers,Balance ,Self care,Safety Rehab Potential Rehab Potential Good Equipment Needs Assistive Devices Straight Cane,Standard Walker Plan OT intervention Plan Bed Mobility,Transfers,Balance ,Self care,Safety,Therapeutic Exercise OT Plan Frequency Daily Duration LOS Discharge Goals Bed Mobility Ability Independent Sit to Stand Chair Transfer Ability Contact Guard/Hand Hold Chair Transfer Ability Contact Guard/Hand Hold Chair Transfer Technique Sit to/from Ambulatory Feeding Ability Assist with Tray Set Up Lower Body Dressing Ability Minimal Assistance Upper Body Dressing Ability Contact Guard Bathing Ability Minimal Assistance Performing Toilet Hygiene Ability Contact Guard Overall Commode/Toilet Transfer Ability Contact Guard Commode/Toilet Transfer Technique Sit to/from Ambulatory Decrease in Endurance No Discharge Plan OT Discharge Plan At this time, it is recommended pt either goes home with home health or to [facility] rehab to address decrease in occupational performance and receive skilled OT services to address deficits pending dr guillaume solorzano medical status. Pt will continue to be seen while at this facility. Eval Complexity Eval Charge Codes 29515 - Moderate Complexity PHYSICIAN CERTIFICATION: I certify the specified therapy services for Alonso Richardson are required, authorized, and reviewed every 30 days.
--- NOTE | 2023-08-15 11:59 | EXP.ORTH.CON ---
History of Present Illness *Admission Date: 08/14/23 *History of present illness: This is a 58-year-old male with past medical history of systolic heart failure, atrial flutter/flutter on Eliquis, alcoholism, COPD, hypertension, hypothyroidism, recent right hip repair who presents emergency department today with complaints of right hip pain. He reports having right hip surgery approximately 2 weeks ago with [employer] and was discharged home with home health. He states he has not had any home health help since he has been home. He does live alone and has had difficulty ambulating on his right lower extremity. Also has had difficulty cleaning and bathing or completing any of his ADLs. He presents back here with pain in his right hip and his right knee. Patient endorses prior history of right knee surgery years ago . He also reports heavy alcohol intake with 1/5 intake of liquor daily. Denies any falls, recent trauma, denies fever, chest pain, congestion. Emergency department workup mostly unremarkable except for mild hypokalemia, elevated alcohol at 351 and an elevated alk phos. Given his functional decline and need for physical therapy, further evaluation of right lower extremities pain and swelling. He will be admitted to hospital service for further evaluation management. Orthopedics consulted regarding right knee pain and swelling. [facility] Disclaimer: The information contained in this section may have been updated after the patient was seen, as this information can be updated by other users. 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 Testicular swelling, right Hypertension Tobacco abuse Alcohol abuse Tobacco use Paroxysmal atrial fibrillation Alcoholism Anxiety GERD (gastroesophageal reflux disease) Laceration of finger, left, complicated COPD (chronic obstructive pulmonary disease) Pulmonary hypertension Cirrhosis, alcoholic CHF (congestive heart failure) Hypertension Atrial fibrillation with rapid ventricular response Exposure to COVID-19 virus Surgical History History of discectomy History of cardiac radiofrequency ablation Family History Other Cancer Hypertension Stroke Substance abuse Social History Smoking Status: Unknown if ever smoked alcohol intake: current alcohol intake frequency: 3 or more drinks per day substance use type: denies use current occupational status: employed Travel in the last 8 weeks: None household members: significant other housing: house 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 current occupational exposures/hazards: No caffeine: Yes Meds Home Medications and Allergies Home Medications Medication Instructions Recorded Confirmed Type digoxin 250 mcg (0.25 mg) tablet 250 mcg PO DAILY #30 tabs 03/28/23 08/15/23 Rx sacubitril 24 mg-valsartan 26 mg 1 tab PO BID #60 tabs 03/28/23 08/15/23 Rx tablet (Entresto) spironolactone 25 mg tablet 25 mg PO DAILY #30 tabs 03/28/23 08/15/23 Rx (Aldactone) amiodarone 200 mg tablet 400 mg PO BID 06/16/23 08/15/23 History apixaban 5 mg tablet 5 mg PO BID 06/16/23 08/15/23 History empagliflozin 10 mg tablet 10 mg PO DAILY #30 tabs 06/16/23 08/15/23 Rx (Jardiance) metoprolol succinate 50 mg 50 mg PO DAILY #30 tabs 06/16/23 08/15/23 Rx tablet,extended release 24 hr (Toprol XL) bumetanide 1 mg tablet 1 mg PO DAILY 07/25/23 08/15/23 History folic acid 1 mg tablet 1 mg PO DAILY 07/25/23 08/15/23 History levothyroxine 100 mcg tablet 100 mcg PO DAILYDM 30 days #30 tabs 07/25/23 08/15/23 Rx (Synthroid) magnesium oxide 400 mg (241.3 mg 400 mg PO DAILY 10 days #10 tabs 07/25/23 08/15/23 Rx magnesium) tablet methocarbamol 500 mg tablet 500 mg PO QID 07/25/23 08/15/23 History thiamine HCl (vitamin B1) 100 mg 100 mg PO DAILY 07/25/23 08/15/23 History tablet New Prescriptions to Start Prescriptions: Allergies Allergy/AdvReac Type Severity Reaction Status Date / Time hydrochlorothiazide AdvReac Unknown Other Verified 07/16/23 15:07 Ortho Exam (Inpt) Vital signs and Labs for Last 24 Hours: Temp Pulse Resp BP Pulse Ox O2 Del Method 98.0 F 114 H 22 130/100 H 95 Room Air 08/15/23 08:00 08/15/23 08:00 08/15/23 08:00 08/15/23 08:34 08/15/23 08:00 08/15/23 11:00 Laboratory Results - last 24 hr 08/14/23 20:52: WBC 7.6, RBC 3.60 L, Hgb 11.5 L, Hct 36.6 L, MCV 101.7 H, MCH 32.0 H, MCHC 31.4 L, RDW 17.7 H, Plt Count 161, MPV 8.5, Neut % (Auto) 59.5, Lymph % (Auto) 32.6, [place] % (Auto) 5.3, Eos % (Auto) 1.1, Baso % (Auto) 1.4, Neut # (Auto) 4.6, Lymph # (Auto) 2.5, [place] # (Auto) 0.4, Eos # (Auto) 0.1, Baso # (Auto) 0.1, Sodium 136, Potassium 3.1 L, Chloride 103, Carbon Dioxide 21 L, Anion Gap 15.1 H, BUN 9, Creatinine 1.00, Estimated Creat Clear 88, Estimated GFR 77, Est GFR ( Amer) 93, Glucose 103 H, Calcium 7.9 L, Total Bilirubin 0.8, AST 47, ALT 17, Alkaline Phosphatase 240 H, Total Protein 7.2, Albumin 3.5, Globulin 3.7 H, Albumin/Globulin Ratio 0.9 L, Plasma/Serum Alcohol 351 H 08/14/23 23:30: ESR 56 H, Phosphorus 2.5, Magnesium 1.1 L, C-Reactive Protein 108.5 H 08/15/23 05:54: WBC 5.4 D, RBC 3.67 L, Hgb 11.9 L, Hct 38.2 L, MCV 104.1 H, MCH 32.6 H, MCHC 31.3 L, RDW 17.9 H, Plt Count 132 L, MPV 8.8, Neut % (Auto) 48.7, Lymph % (Auto) 38.5, [place] % (Auto) 8.1, Eos % (Auto) 3.0, Baso % (Auto) 1.7, Neut # (Auto) 2.6, Lymph # (Auto) 2.1, [place] # (Auto) 0.4, Eos # (Auto) 0.2, Baso # (Auto) 0.1, Sodium 136, Potassium 4.4 D, Chloride 104, Carbon Dioxide 22, Anion Gap 14.4, BUN 9, Creatinine 1.00, Estimated Creat Clear 109, Estimated GFR 77, Est GFR ( Amer) 93, Glucose 68 L D, Calcium 8.0 L I & O for Labs for Last 24 Hours: Intake & Output 08/12/23 08/13/23 08/14/23 08/15/23 23:59 23:59 23:59 23:59 Intake Total 480 / 480 Balance 480 / 480 Weight 170 lb 210 lb 8 oz Comment:: Right knee: Healed lateral surgical scar over the proximal tibia. Very large joint effusion. Tenderness to palpation diffusely. No redness erythema or streaking up or down the thigh. -[address] right knee without acute fracture Results Labs 08/15/23 05:54 08/15/23 05:54 Labs: Abnormal lab results 08/14/23 08/14/23 08/15/23 Range/Units 20:52 23:30 05:54 RBC 3.60 L 3.67 L (4.60-6.20) M/mm3 Hgb 11.5 L 11.9 L (14.1-18.0) g/dL Hct 36.6 L 38.2 L (42.0-52.0) % MCV 101.7 H 104.1 H (80-94) fl MCH 32.0 H 32.6 H (27.0-31.2) pg MCHC 31.4 L 31.3 L (31.8-35.4) g/dL RDW 17.7 H 17.9 H (11.5-17.5) % Plt Count 132 L (142-424) K/mm3 ESR 56 H (0-20) mm/hr Potassium 3.1 L (3.5-5.1) mmoL/L Carbon Dioxide 21 L (22.0-30.0) mmol/L Anion Gap 15.1 H (5-15) mEq/L Glucose 103 H 68 L D (74-100) mg/dl Calcium 7.9 L 8.0 L (8.4-10.2) mg/dl Magnesium 1.1 L (1.6-2.3) mg/dl Alkaline Phosphatase 240 H (38-126) U/L C-Reactive Protein 108.5 H (0-4) mg/L Globulin 3.7 H (1.3-3.2) g/dL Albumin/Globulin Ratio 0.9 L (1.1-1.8) Plasma/Serum Alcohol 351 H (0-10) mg/dl H & H 08/14/23/ Range/Units 20:52 05:54 Hgb 11.5 L 11.9 L (14.1-18.0) g/dL Hct 36.6 L 38.2 L (42.0-52.0) % All other labs normal. Assessment and Plan *Assessment and plan (1) Effusion, right knee: Status: Acute Category: Medical Code(s): M25.461 - Effusion, right knee Plan Patient has very large right knee effusion. Increased inflammatory markers present. Decision made for aspiration of the knee. Under sterile technique 110 cc of straw-colored appearing fluid aspirated from the knee. This gave significant decreased swelling and ability to extend the knee. Placed orders for stat cell count with crystals and differential along with cultures of right knee fluid No gross evidence of infection upon aspiration with purulence will wait confirmation of knee aspiration for definitive treatment plans. If there is evidence of infection increased white count would require knee arthroscopy for debridement
[2023-08-15] MEDS: LIDOCAINE 1% 10ML MDV 10 ML SQ (12:09)
--- NOTE | 2023-08-15 15:50 | EXP.PN ---
Subjective *Date: 08/15/23 *Time: 15:50 Interval history: seen at bedside, patient is complaining of R knee pain, he is also having fine tremors likley alcohol withdrawal Exam Data for Last 24 hours Vital signs and Labs for Last 24 Hours: Temp Pulse Resp BP Pulse Ox O2 Del Method 98.4 F 140 H 22 140/100 H 98 Room Air 08/15/23 11:59 08/15/23 12:00 08/15/23 11:59 08/15/23 11:59 08/15/23 11:59 08/15/23 13:00 Laboratory Results - last 24 hr 08/14/23 20:52: WBC 7.6, RBC 3.60 L, Hgb 11.5 L, Hct 36.6 L, MCV 101.7 H, MCH 32.0 H, MCHC 31.4 L, RDW 17.7 H, Plt Count 161, MPV 8.5, Neut % (Auto) 59.5, Lymph % (Auto) 32.6, [place] % (Auto) 5.3, Eos % (Auto) 1.1, Baso % (Auto) 1.4, Neut # (Auto) 4.6, Lymph # (Auto) 2.5, [place] # (Auto) 0.4, Eos # (Auto) 0.1, Baso # (Auto) 0.1, Sodium 136, Potassium 3.1 L, Chloride 103, Carbon Dioxide 21 L, Anion Gap 15.1 H, BUN 9, Creatinine 1.00, Estimated Creat Clear 88, Estimated GFR 77, Est GFR ( Amer) 93, Glucose 103 H, Calcium 7.9 L, Total Bilirubin 0.8, AST 47, ALT 17, Alkaline Phosphatase 240 H, Total Protein 7.2, Albumin 3.5, Globulin 3.7 H, Albumin/Globulin Ratio 0.9 L, Plasma/Serum Alcohol 351 H 08/14/23 23:30: ESR 56 H, Phosphorus 2.5, Magnesium 1.1 L, C-Reactive Protein 108.5 H 08/15/23 05:54: WBC 5.4 D, RBC 3.67 L, Hgb 11.9 L, Hct 38.2 L, MCV 104.1 H, MCH 32.6 H, MCHC 31.3 L, RDW 17.9 H, Plt Count 132 L, MPV 8.8, Neut % (Auto) 48.7, Lymph % (Auto) 38.5, [place] % (Auto) 8.1, Eos % (Auto) 3.0, Baso % (Auto) 1.7, Neut # (Auto) 2.6, Lymph # (Auto) 2.1, [place] # (Auto) 0.4, Eos # (Auto) 0.2, Baso # (Auto) 0.1, Sodium 136, Potassium 4.4 D, Chloride 104, Carbon Dioxide 22, Anion Gap 14.4, BUN 9, Creatinine 1.00, Estimated Creat Clear 109, Estimated GFR 77, Est GFR ( Amer) 93, Glucose 68 L D, Calcium 8.0 L I & O for Last 24 hours: Intake & Output 08/12/23 08/13/23 08/14/23 08/15/23 23:59 23:59 23:59 23:59 Intake Total 720 / 720 Output Total 450 / 450 Balance 270 / 270 Weight 77.111 kg 95.48 kg Constitutional Constitutional: no acute distress *Routine HEENT Exam Head: Present normocephalic Eye: Present EOMI and PERRL ENT: Present mucous membranes moist *Routine Neck Exam Neck: Present supple; Absent lymphadenopathy *Routine Respiratory Exam Respiratory: Present CTA bilaterally *Routine Cardiovascular Exam Cardiovascular: Present RRR *Routine Abdominal Exam Abdominal: Present soft and normoactive bowel sounds; Absent tenderness *Routine Extremities Exam Extremities: Absent cyanosis, clubbing or edema Comments: R knee swollen *Routine Skin Exam Skin: Present warm; Absent rash *Routine Neurological Exam Neurological: Present alert and oriented X3 Assessment and Plan *Assessment and plan (1) Right leg pain: Status: Acute Category: Medical Code(s): M79.604 - Pain in right leg (2) Alcoholism: Status: Acute Category: Medical Code(s): F10.20 - Alcohol dependence, uncomplicated (3) Declining functional status: Status: Acute Category: Medical Code(s): R53.81 - Other malaise (4) Paroxysmal atrial flutter: Status: Acute Category: Medical Code(s): I48.92 - Unspecified atrial flutter Plan #Right lower extremity pain Notable swelling to right hip and right knee. Will obtain CT imaging to further evaluate. Right hip x-ray without abnormality Will obtain Doppler of the right lower extremity as well ESR and CR pending given possible right knee effusion PT OT As needed pain medication consulted orthopedics , s/p knee aspiration, awaiting fluid studies #Alcoholism CIWA protocol with multivitamin cocktail infusion Case management consult added on scheduled librium #Paroxysmal A-fib/flutter Continue home Eliquis Continue home antiarrhythmic And metoprolol #Chronic systolic heart failure Continue home Bumex Continue home Entresto #Hypothyroidism Continue levothyroxine DVT PPx Home Eliquis Full Code
[2023-08-15 16:18] LABS: UK Syn. Total Nucleated Cell 13742 uL; UK Synovial Appearance CLOUDY; UK Synovial Color YELLOW; UK Synovial Red Blood Cell 64 uL
--- NOTE | 2023-08-15 18:04 | PC.NURSE ---
Pt has done well this shift. CIWA's have been 0-1 this shift. No c/o n/v or hallucinations. Pt has been easily startled this shift but pleasant.
--- NOTE | 2023-08-15 20:24 | EXP.ORTH.PN ---
Subjective *Date: 08/15/23 *Time: 20:24 Interval history: Patient had right knee aspirated today. I reviewed synovial findings. There are 13K WBC in fluid. There is no synovial fluid findings to suggest infection. Patient does not require surgical intervention for right knee. Ortho Exam (Inpt) Vital signs and Labs for Last 24 Hours: Temp Pulse Resp BP Pulse Ox O2 Del Method 98.4 F 100 H 18 142/102 H 98 Room Air 08/15/23 16:00 08/15/23 16:00 08/15/23 16:00 08/15/23 16:00 08/15/23 16:00 08/15/23 19:35 Laboratory Results - last 24 hr 08/14/23 20:52: WBC 7.6, RBC 3.60 L, Hgb 11.5 L, Hct 36.6 L, MCV 101.7 H, MCH 32.0 H, MCHC 31.4 L, RDW 17.7 H, Plt Count 161, MPV 8.5, Neut % (Auto) 59.5, Lymph % (Auto) 32.6, [place] % (Auto) 5.3, Eos % (Auto) 1.1, Baso % (Auto) 1.4, Neut # (Auto) 4.6, Lymph # (Auto) 2.5, [place] # (Auto) 0.4, Eos # (Auto) 0.1, Baso # (Auto) 0.1, Sodium 136, Potassium 3.1 L, Chloride 103, Carbon Dioxide 21 L, Anion Gap 15.1 H, BUN 9, Creatinine 1.00, Estimated Creat Clear 88, Estimated GFR 77, Est GFR ( Amer) 93, Glucose 103 H, Calcium 7.9 L, Total Bilirubin 0.8, AST 47, ALT 17, Alkaline Phosphatase 240 H, Total Protein 7.2, Albumin 3.5, Globulin 3.7 H, Albumin/Globulin Ratio 0.9 L, Plasma/Serum Alcohol 351 H 08/14/23 23:30: ESR 56 H, Phosphorus 2.5, Magnesium 1.1 L, C-Reactive Protein 108.5 H 08/15/23 05:54: WBC 5.4 D, RBC 3.67 L, Hgb 11.9 L, Hct 38.2 L, MCV 104.1 H, MCH 32.6 H, MCHC 31.3 L, RDW 17.9 H, Plt Count 132 L, MPV 8.8, Neut % (Auto) 48.7, Lymph % (Auto) 38.5, [place] % (Auto) 8.1, Eos % (Auto) 3.0, Baso % (Auto) 1.7, Neut # (Auto) 2.6, Lymph # (Auto) 2.1, [place] # (Auto) 0.4, Eos # (Auto) 0.2, Baso # (Auto) 0.1, Sodium 136, Potassium 4.4 D, Chloride 104, Carbon Dioxide 22, Anion Gap 14.4, BUN 9, Creatinine 1.00, Estimated Creat Clear 109, Estimated GFR 77, Est GFR ( Amer) 93, Glucose 68 L D, Calcium 8.0 L 08/15/23 11:59: Synovial Color Yellow, Synovial Appearance Cloudy, Synovial Volume 4.0, Synovial RBC 64, Synovial Tot Nuc Cell [id number], Synovial Crystals No crystals seen I & O for Labs for Last 24 Hours: Intake & Output 08/12/23 08/13/23 08/14/23 08/15/23 23:59 23:59 23:59 23:59 Intake Total 2316 / 2316 Output Total 450 / 450 Balance 1866 / 1866 Weight 170 lb 210 lb 7.958 oz
[2023-08-15] MEDS: SACUBITRIL/VALSARTAN 24-26MG TABLET 1 EACH PO (20:35)
[2023-08-15] MEDS: APIXABAN 5MG TABLET 5 MG PO (20:35)
--- NOTE | 2023-08-15 21:29 | PC.NURSE ---
notified marta of elevated bp, stated to make sure he gets his entresto, that will bring his bp down
[2023-08-15 21:53] LABS: Appearance,Body Fld. Cloudy; Source, Body Fld. SYNOVIAL; Volume,Body Fld. 4 mL
[2023-08-15 21:54] LABS: RBC,Body Fluid 64 cells/uL (< 10 X 10^3); TNC,Body Fluid 13742 cells/uL (< 1000)
[2023-08-15 22:14] LABS: Mononuclear WBCs,Body Fluid 6 %; Polynuclear WBC,Body Fluid 94 %
[2023-08-15 22:22] LABS: UK Synovial Basophil % 0 %; UK Synovial Eosinophil % 0 %; UK Synovial Lining/Mesothelial 0 %; UK Synovial Lymphocytes % 1 %; UK Synovial Neutrophil % 94 %; UK Synovial Neutrophil Absolut 12918 u/L
[2023-08-15 22:23] LABS: UK Synovial Lymphocyte Absolut 137 u/L; UK Synovial Mono/Macro % 5 %; UK Synovial Mono/Macro Absoult 687 u/L
[2023-08-16] VITALS: BP 128/99; PULSE 100; PULSE 93; RESP 18; TEMP 36.9; O2SAT 98
[2023-08-16 04:00] VITALS: BP 141/97; PULSE 100; PULSE 95; RESP 20; TEMP 36.8; O2SAT 95; BMI 31.1
[2023-08-16] MEDS: LORazepam 1MG TABLET 1 MG PO (04:49)
[2023-08-16] MEDS: LEVOTHYROXINE 100MCG (0.1MG) TAB 100 MCG PO (06:18)
[2023-08-16 08:00] VITALS: BP 151/86; PULSE 100; PULSE 110; RESP 18; TEMP 36.8; O2SAT 98
[2023-08-16] MEDS: MVI, ADULT NO.1 WITH VIT K 10 ML, THIAMINE HCL 100 MG, MAGNESIUM SULFATE 2 GM in LACTAT... 125 ML IV (08:41)
[2023-08-16] MEDS: METOPROLOL SUCCINATE XL 50MG TABLET 50 MG PO (08:41)
[2023-08-16] MEDS: AMIODARONE 200MG TABLET 400 MG PO (08:42)
[2023-08-16] MEDS: EMPAGLIFLOZIN 10MG TABLET 10 MG PO (08:42)
[2023-08-16] MEDS: SACUBITRIL/VALSARTAN 24-26MG TABLET 1 EACH PO (08:42)
[2023-08-16] MEDS: APIXABAN 5MG TABLET 5 MG PO (08:42)
[2023-08-16] MEDS: SPIRONOLACTONE 25MG TABLET 25 MG PO (08:42)
[2023-08-16] MEDS: BUMETANIDE 1 MG TABLET PO (08:42)
[2023-08-16 08:47] VITALS: PULSE 100
[2023-08-16] MEDS: DIGOXIN 0.25MG TABLET 250 MCG PO (08:47)
--- NOTE | 2023-08-16 11:47 | EXP.PN ---
Subjective *Date: 08/16/23 *Time: 11:47 Interval history: patient is seen at bedside, duran IRVING, SOB, complains of R knee pain Exam Data for Last 24 hours Vital signs and Labs for Last 24 Hours: Temp Pulse Resp BP Pulse Ox O2 Del Method 98.2 F 100 H 18 151/86 H 98 Room Air 08/16/23 08:00 08/16/23 08:47 08/16/23 08:00 08/16/23 08:00 08/16/23 08:00 08/16/23 11:00 Laboratory Results - last 24 hr 08/15/23 11:59: Fluid Source Synovial, Fluid Volume 4, Fluid Appearance Cloudy, Fluid RBC (Auto) 64, Fld Tot Nucleated Cell 38358, Fld Polynuclear WBCs % 94, Fld Mononuclear WBCs % 6, Fl Monocyt/Macrophag % 5, Synovial Color Yellow, Synovial Appearance Cloudy, Synovial Volume 4.0, Synovial RBC 64, Synovial Tot Nuc Cell 39067, Synovial Neutrophils % 94, Synovial Neutrophils # [address], Synovial Lymphocytes # 137, Synovial Basophils 0, Synovial Eosinophils% 0, Synov Monos/Macrophage 687, Synovial Mesothelials 0, Synovial Lymphocytes % 1, Synovial Crystals No crystals seen I & O for Last 24 hours: Intake & Output 08/13/23 08/14/23 08/15/23 08/16/23 23:59 23:59 23:59 23:59 Intake Total 2316 / 2516 560 / 560 Output Total 575 / 575 1450 / 1450 Balance 1741 / 1941 -890 / -890 Weight 77.111 kg 95.48 kg 98.883 kg Constitutional Constitutional: no acute distress *Routine HEENT Exam Head: Present normocephalic Eye: Present EOMI and PERRL ENT: Present mucous membranes moist *Routine Neck Exam Neck: Present supple; Absent lymphadenopathy *Routine Respiratory Exam Respiratory: Present CTA bilaterally *Routine Cardiovascular Exam Cardiovascular: Present RRR *Routine Abdominal Exam Abdominal: Present soft and normoactive bowel sounds; Absent tenderness *Routine Extremities Exam Extremities: Absent cyanosis, clubbing or edema Comments: R knee swollen *Routine Skin Exam Skin: Present warm; Absent rash *Routine Neurological Exam Neurological: Present alert and oriented X3 Assessment and Plan *Assessment and plan (1) Right leg pain: Status: Acute Category: Medical Code(s): M79.604 - Pain in right leg (2) Alcoholism: Status: Acute Category: Medical Code(s): F10.20 - Alcohol dependence, uncomplicated (3) Declining functional status: Status: Acute Category: Medical Code(s): R53.81 - Other malaise (4) Paroxysmal atrial flutter: Status: Acute Category: Medical Code(s): I48.92 - Unspecified atrial flutter Plan #Right lower extremity pain Notable swelling to right hip and right knee. Will obtain CT imaging to further evaluate. Right hip x-ray without abnormality PT OT As needed pain medication consulted orthopedics , s/p knee aspiration, awaiting fluid studies - negative for infection etiology - no intervention needed #Alcoholism CIWA protocol with multivitamin cocktail infusion Case management consult added on scheduled librium #Paroxysmal A-fib/flutter Continue home Eliquis Continue home antiarrhythmic And metoprolol #Chronic systolic heart failure Continue home Bumex Continue home Entresto #Hypothyroidism Continue levothyroxine DVT PPx Home Eliquis Full Code monitor for alcohol withdrawal
[2023-08-16 12:00] VITALS: BP 158/78; PULSE 92; RESP 18; TEMP 36.5; O2SAT 95
--- NOTE | 2023-08-19 15:16 | CARE MANAGER ---
Contacted patient related to hospital discharge. He states he is having some issues down his butt into his leg. He is taking medication and doesn't have appointment with ortho yet. Transferred him to them to schedule an appointment. HORTENCIA Verduzco
--- NOTE | 2023-08-29 09:38 | P.DS_ITS ---
General Admission date:: 08/14/23 Discharge date: 08/16/23 HPI HPI HPI: This is a 58-year-old male with past medical history of systolic heart failure, atrial flutter/flutter on Eliquis, alcoholism, COPD, hypertension, hypothyroidism, recent right hip repair who presents emergency department today with complaints of right hip pain. He reports having right hip surgery approximately 2 weeks ago with Yazdanism and was discharged home with home health. He states he has not had any home health help since he has been home. He does live alone and has had difficulty ambulating on his right lower extremity. Also has had difficulty cleaning and bathing or completing any of his ADLs. He presents back here with pain in his right hip and his right knee. Patient endorses prior history of right knee surgery years ago . He also reports heavy alcohol intake with 1/5 intake of liquor daily. Denies any falls, recent trauma, denies fever, chest pain, congestion. Emergency department workup mostly unremarkable except for mild hypokalemia, elevated alcohol at 351 and an elevated alk phos. Given his functional decline and need for physical therapy, further evaluation of right lower extremities pain and swelling. He will be admitted to hospital service for further evaluation management. Orthopedics consulted regarding right knee pain and swelling. Hospital Course Hospital Course Hospital Course: see same date progress note Patient R knee swelling improved after aspiration, no signs of infection on sy novial studies. patient is stable for dischage, see same date progress note for further hospital course Exam Data for Last 24 hours Vital signs and Labs for Last 24 Hours: Temp Pulse Resp BP Pulse Ox O2 Del Method 97.7 F 92 H 18 158/78 H 95 Room Air 08/16/23 12:00 08/16/23 12:00 08/16/23 12:08/16/23 12:08/16/23 12:08/16/23 13:00 Constitutional Constitutional: no acute distress *Routine HEENT Exam Head: Present normocephalic Eye: Present EOMI and PERRL ENT: Present mucous membranes moist *Routine Neck Exam Neck: Present supple; Absent lymphadenopathy *Routine Respiratory Exam Respiratory: Present CTA bilaterally *Routine Cardiovascular Exam Cardiovascular: Present RRR *Routine Abdominal Exam Abdominal: Present soft and normoactive bowel sounds; Absent tenderness *Routine Extremities Exam Extremities: Absent cyanosis, clubbing or edema Comments: R knee swollen *Routine Skin Exam Skin: Present warm; Absent rash *Routine Neurological Exam Neurological: Present alert and oriented X3 DS: Diagnosis Discharge Diagnosis (1) Right leg pain: Status: Acute Code(s): M79.604 - Pain in right leg (2) Alcoholism: Status: Acute Code(s): F10.20 - Alcohol dependence, uncomplicated (3) Declining functional status: Status: Acute Code(s): R53.81 - Other malaise (4) Paroxysmal atrial flutter: Status: Acute Code(s): I48.92 - Unspecified atrial flutter Meds Home Medications and Allergies Home Medications Medication Instructions Recorded Confirmed Type digoxin 250 mcg (0.25 mg) tablet 250 mcg PO DAILY #30 tabs 03/28/23 08/15/23 Rx sacubitril 24 mg-valsartan 26 mg 1 tab PO BID #60 tabs 03/28/23 08/15/23 Rx tablet (Entresto) spironolactone 25 mg tablet 25 mg PO DAILY #30 tabs 03/28/23 08/15/23 Rx (Aldactone) amiodarone 200 mg tablet 400 mg PO BID 06/16/23 08/15/23 History apixaban 5 mg tablet 5 mg PO BID 06/16/23 08/15/23 History empagliflozin 10 mg tablet 10 mg PO DAILY #30 tabs 06/16/23 08/15/23 Rx (Jardiance) metoprolol succinate 50 mg 50 mg PO DAILY #30 tabs 06/16/23 08/15/23 Rx tablet,extended release 24 hr (Toprol XL) bumetanide 1 mg tablet 1 mg PO DAILY 07/25/23 08/15/23 History folic acid 1 mg tablet 1 mg PO DAILY 07/25/23 08/15/23 History levothyroxine 100 mcg tablet 100 mcg PO DAILYDM 30 days #30 tabs 07/25/23 08/15/23 Rx (Synthroid) magnesium oxide 400 mg (241.3 mg 400 mg PO DAILY 10 days #10 tabs 07/25/23 08/15/23 Rx magnesium) tablet methocarbamol 500 mg tablet 500 mg PO QID 07/25/23 08/15/23 History thiamine HCl (vitamin B1) 100 mg 100 mg PO DAILY 07/25/23 08/15/23 History tablet chlordiazepoxide HCl 10 mg capsule 10 mg PO TID 3 days #9 caps 08/16/23 Rx New Prescriptions to Start Prescriptions: chlordiazepoxide HCl Angel Turcios Allergies Allergy/AdvReac Type Severity Reaction Status Date / Time hydrochlorothiazide AdvReac Unknown Other Verified 07/16/23 15:07 Discharge Plan Disposition Patient Disposition: Home, Self-Care Condition: Good Follow up Plan Follow up with: Juan Pablo Rivas DO [Staff Physician] - 2 weeks (Please call for your follow up appt. ) Provider,Referral, [Primary Care Provider] - 2 weeks (Please make a follow up appt with your primary care doctor) Prescriptions/Medication Reconciliation: New chlordiazepoxide HCl 10 mg Capsule 10 mg PO TID 3 Days Qty: 9 0RF Continued metoprolol succinate [Toprol XL] 50 mg tablet extended release 24 hr 50 mg PO DAILY Qty: 30 2RF Jardiance 10 mg tablet 10 mg PO DAILY Qty: 30 5RF amiodarone 200 mg tablet 400 mg PO BID spironolactone [Aldactone] 25 mg tablet 25 mg PO DAILY Qty: 30 0RF Entresto 24-26 mg tablet 1 tab PO BID Qty: 60 0RF digoxin 250 mcg (0.25 mg) tablet 250 mcg PO DAILY Qty: 30 0RF apixaban 5 mg tablet 5 mg PO BID methocarbamol 500 mg tablet 500 mg PO QID thiamine HCl (vitamin B1) 100 mg tablet 100 mg PO DAILY bumetanide 1 mg tablet 1 mg PO DAILY folic acid 1 mg tablet 1 mg PO DAILY levothyroxine [Synthroid] 100 mcg Tablet 100 mcg PO DAILYDM 30 Days Qty: 30 0RF magnesium oxide 400 mg (241.3 mg magnesium) Tablet 400 mg PO DAILY 10 Days Qty: 10 0RF Problem Reconciliation Problems Reviewed?: Yes Patient Discharge Instructions Patient Instructions: DI for Knee Pain Providers Primary Care Provider: Provider,Referral Admit Provider: Angel Turcios Attending Provider: Angel Turcios
== END 2023-08-16 14:45 | disposition home or self-care (01) ==
LOC: ER 21:17 → 2ND 22:50
PROVIDERS: Nurse Practitioner Acute Care; Orthopaedic Surgery; Admitting Provider Internal Medicine; Emergency Provider Emergency Medicine; Visit Provider Internal Medicine
DX: M25.461 Effusion, right knee (principal); I48.92 Unspecified atrial flutter; Z79.01 Long term (current) use of anticoagulants; I11.0 Hypertensive heart disease with heart failure; F10.20 Alcohol dependence, uncomplicated; I48.0 Paroxysmal atrial fibrillation; Z86.16 Personal history of COVID-19; F17.210 Nicotine dependence, cigarettes, uncomplicated; Y90.8 Blood alcohol level of 240 mg/100 ml or more; I50.22 Chronic systolic (congestive) heart failure; J44.9 Chronic obstructive pulmonary disease, unspecified; E03.9 Hypothyroidism, unspecified; I27.20 Pulmonary hypertension, unspecified
CPT/HCPCS: 20610; 36415; 73502; 73700; 80048; 80053; 80320; 83735; 84100; 85025; 85651; 86140; 89051; 97162; 97166; 99285; G0378; G0480; J2270; J3411; J3475; J7120

== ENCOUNTER 2023-10-07 14:57 | Outpatient (CLI) | payer MEDICAID, SELFPAY ==
--- OUTSIDE RECORDS SUMMARY | 2023-10-07 15:00 | XMS_ITS ---
Author Organization [facility] , [facility] Address [address] [place] [address] Phone Care Team Providers Care Fitness Coordinator Name Role Phone Robbin VELAZCO, Charli Vale Primary Care Provider [phone] Problems Includes: Active, inactive, and resolved Problems All Visits Onset Date Resolved Date Provider Condition S tatus Joint Pain in the Right Hip 07/14/2023 Maddy Malone PA-C Active Last Documented On 4 3:08PM ; [facility], [facility] Plan of Treatment Future Appointments Date Time Location Provi giorgio Follow Up 10/14/2023 1:15PM [facility] paedics [facility] Maddy Malone PA-C Last Documented On 4 3:26PM ; [facility], [facility] Instructions to patient Lose weight Last Documented On 4 3:12PM ; [facility], [facility] Assessments Includes: Assessments for all patient encounters Findings Encounter Date Overweight Post Op with Maddy Malone PA-C 07/14/2023 Last Documented On 4 9:30AM ; [facility], [facility] Instructions Includes: Instructions for all patient encounters Instructions to patient Lose weight Last Documented On 4 3:12PM ; [facility], [facility] Medical Equipment - Implanted Devices Includes: Current and historical Devices No Medical Equipment Recorded Medications Includes: Current and historical Medications Current Medications (continue as prescribed) Eliquis 5 MG Oral Tablet 07/08/2023 Provider: Diagnosis: Last Documented On 4 3:08PM By Kaitlin Christensen ; [facility], [facility] Folic Acid 1 MG Oral Tablet 07/08/2023 Provider: Diagnosis: Last Documented On 4 3:08PM By Kaitlin Christensen ; [facility], [facility] Levothyroxine Sodium 75 MCG Oral Tablet 07/08/2023 Cris dolander: Diagnosis: Last Documented On 4 3:08PM By Kaitlin Christensen ; [facility] Methocarbamol 500 MG Oral Tablet 07/08/2023 Provider : Diagnosis: Last Documented On 4 3:08PM By Kaitlin Christensen ; [facility] oxyCODONE HCl 5 MG Oral Tablet 07/08/2023 Provider: Diagnosis: Last Documented On 4 3:08PM By Kaitlin Christensen ; [facility] Thiamine HCl 100 MG Oral Tablet 07/08/2023 Provider: Diagnosis: Last Documented On 4 3:08PM By Kaitlin Christensen ; [facility], [facility] Bumetanide 1 MG Oral Tablet 07/08/2023 Provider: Diagnosis: Last Documented On 4 3:08PM By Kaitlin Christensen ; [facility], [facility] Jardiance 10 MG Oral Tablet 06/24/2023 Provider: Diagnosis: Last Documented On 4 3:08PM By Kaitlin Christensen ; [facility] Amiodarone HCl 200 MG Oral Tablet 06/17/2023 Provide r: ERASMO TANRAMAKRISHNA Diagnosis: Last Documented On 4 3:08PM By Kaitlin Christensen ; [facility], [facility] Digoxin 250 MCG Oral Tablet 06/17/2023 Provider: ERASMO MULBERRY Diagnosis: Last Documented On 4 3:08PM By Kaitlin Christensen ; [facility], [facility] Entresto 24-26 MG Oral Tablet 06/17/2023 Provider: ERASMO TANBERRY Diagnosis: Last Documented On 4 3:08PM By Kaitlin Christensen ; [facility] Spironolactone 25 MG Oral Tablet 06/17/2023 Provider : JAIME MCKINNEY MD Diagnosis: Last Documented On 4 3:08PM By Kaitlin Christensen ; [facility], [facility] Metoprolol Succinate ER 50 M G Oral Tablet Extended Release 24 Hour 06/16/2023 Provider: Diagnosis: Last Documented On 4 3:08PM [facility]lin Christensen [facility] Past Medications on file HYDROcodone-Acetaminophen 5- 325 MG Oral Tablet 07/14/2023 - 07/21/2023 Provider: Lamin Dixon MD Diagnosis: three times a day Last Documented On 4 3:59PM By Lamin Dixon [facility] Medications Administered Includes: Administered Medications in patient's chart No Administered Medications Recorded Vital Signs Includes: Vital Signs from 10/06/2022 through 10/07/2023 Vital Name 07/14/2023 03:09P Height (in) 72 Weight (lb) 210 Body Mass Index 28.5 Body Surface Area 2.2 Note: hdv Last Documented: On 07/14/2023 3:33PM [facility] Results Includes: Results from 10/06/2022 through 10/07/2023 No Results Recorded For Specified Dates History of Present Illness History of Present Illness not supported for this document type No History of Present Illness Recorded Social History Description Last Updated Alcohol use 07/14/2023 Last Documented On 4 9:30AM ; [facility], [facility] Caffeine use 07/14/2023 Last Documented On 4 9:30AM ; [facility], [facility] No recent change in diet 07/14/2023 Last Documented On 4 9:30AM ; [facility], [facility] Not exercising regularly 07/14/2023 Last Documented On 4 9:30AM ; [facility], [facility] Not using drugs 07/14/2023 Last Documented On 4 9:30AM ; [facility], [facility] Yes, current smoker. 07/14/2023 Last Documented On 4 9:30AM ; [facility], [facility] Smoking Status Unknown Procedures and Surgical History Includes: Procedures from 10/06/2022 through 10/07/2023 Procedures Code Diagnosis Performing Provider Service Location Service Date PELVIS w/ 2-3 VIEW HIP (RIGHT) 40983 Displaced intertrochanteric fracture of right femur, init Maddy Malone PA-C [facility] B 07/14/2023 Last Documented On 4 1:48PM ; [facility] TREAT THIGH FRACTURE (RIGHT) 08716 Displaced intertrochanteric fracture of right femur, init Lamin Dixon MD [facility] 06/27/2023 Last Documented On 4 12:01PM ; [facility] Surgical History Last Updated History of back surgery 07/14/2023 Last Documented On 4 9:30AM ; [facility] History of Previous Fractures 07/14/2023 Last Documented On 4 9:30AM ; [facility] Medical History Includes: Medical History in patient's chart Description Last Updated History of Fractures 07/14/2023 Last Documented On 4 9:30AM ; [facility] History of Hypertension 07/14/2023 Last Documented On 4 9:30AM ; [facility] History of Irregular Heartbeat 4 Last Documented On 4 9:30AM ; [facility] Family History Includes: Family History in patient's chart Description Last Updated No significant family history 07/14/2023 Last Documented On 4 9:30AM ; [facility] Review of Systems Review of Systems not supported for this document type No Review of Systems Recorded Mental Status Description No anxiety Functional Status No Functional Status Recorded Physical Exam Physical Exam not supported for this document type No Physical Exam Recorded Allergies Includes: Active, inactive, and resolved Allergies No Known Allergies Encounters Includes: Encounters from 10/06/2022 through 10/07/2023 Encounter Provider Location Date Check-In Time Check-Out Time Diagnosis Post Op Maddy Malone PA-C [facility] B 07/14/19 24 2:10PM 3:16PM Overweight Consult Lamin Dixon MD [facility] 06/27/19 24 09/15/2009 12:22PM 09/15/2009 11:59PM [facility] Lamin Dixon MD [facility] 06/07/19 24 09/15/2009 12:27PM 09/15/2009 11:59PM Insurance Includes: Active Insurance Policies Plan Name Member ID Group # Subscriber Relationship Effect laura Dates 1 - [facility] [id number] Alonso Richardson Self Clinical Notes Includes: Signed Clinical Notes starting from 02/14/2022 * Progress note Date Encounter Last Documented by 07/14/2023 Post Op Last documented on 07/17/2023; 9:30 AM, Maddy Malone PA-C; [facility], [facility] Active Problems & Conditions - Joint Pain [...]
--- OUTSIDE RECORDS SUMMARY | 2023-10-07 15:00 | XMS_ITS | Clinical Summary ---
Author Organization [facility] Address [address] [place] [address] Phone Care Team Providers Care Talent Buyer Name Role Phone Robbin VELAZCO, Charli Vale Primary Care Provider [phone] Reason for Visit and Chief Complaint The Chief Complaint is: Right hip pain Problems Includes: Problems addressed during this encounter and other active Problems Current Visit Onset Date Resolved Date Provider José gil Status Joint Pain in the Right Hip 07/14/2023 Maddy Malone PA-C Active Last Documented On 4 3:08PM ; [facility], [facility] Plan of Treatment He will continue rehab. He understands his restrictions we will see him back as scheduled no further questions - Last Documented On 07/17/2023 9:30AM ; [facility], [facility] Future Appointments Date Time Location Provi giorgio Follow Up 10/14/2023 1:15PM [facility] paedics [facility] Maddy Malone PA-C Last Documented On 4 3:26PM ; [facility], [facility] Instructions to patient Lose weight Last Documented On 4 3:12PM ; [facility], [facility] Assessments Includes: Assessments from this encounter Findings - Overweight - Last Documented On 07/17/2023 9:30AM ; [facility], [facility] Right hip ORIF - Last Documented On 07/17/2023 9:30AM ; [facility], [facility] Instructions Includes: Instructions from this encounter Instructions to patient Lose weight Last Documented On 4 3:12PM ; [facility], [facility] Medical Equipment - Implanted Devices Includes: Current Devices No Medical Equipment Recorded Medications Includes: Medications discussed during this encounter and other current Medications New / Renewed during this visit Lamin Dixon MD on 07/14/2023 HYDROcodone-Acetaminophen 5- 325 MG Oral Tablet Provider: Lamin Dixon MD 7 day supply: 21 tablet, 0 refills Diagnosis: three times a day Pharmacy: [facility] [employer] [facility] [address] [place], [id number] - Last Documented On 4 3:59PM By Lamin Dixon ; [facility] Current Medications (continue as prescribed) Eliquis 5 MG Oral Tablet 07/08/2023 Provider: Diagnosis: Last Documented On 4 3:08PM By Kaitlin Christensen ; [facility], [facility] Folic Acid 1 MG Oral Tablet 07/08/2023 Provider: Diagnosis: Last Documented On 4 3:08PM By Kaitlin Christnesen ; [facility], [facility] Levothyroxine Sodium 75 MCG Oral Tablet 07/08/2023 Cris dolander: Diagnosis: Last Documented On 4 3:08PM By Kaitlin Christensen ; [facility] Methocarbamol 500 MG Oral Tablet 07/08/2023 Provider : Diagnosis: Last Documented On 4 3:08PM By Kaitlin Christensen ; [facility], [facility] oxyCODONE HCl 5 MG Oral Tablet 07/08/2023 Provider: Diagnosis: Last Documented On 4 3:08PM By Kaitlin Christensen ; [facility], [facility] Thiamine HCl 100 MG Oral Tablet 07/08/2023 Provider: Diagnosis: Last Documented On 4 3:08PM By Kaitlin Christensen ; [facility] Bumetanide 1 MG Oral Tablet 07/08/2023 Provider: Diagnosis: Last Documented On 4 3:08PM By Kaitlin Christensen ; [facility] Jardiance 10 MG Oral Tablet 06/24/2023 Provider: Diagnosis: Last Documented On 4 3:08PM By Kaitlin Christensen ; [facility] Amiodarone HCl 200 MG Oral Tablet 06/17/2023 Provide r: ERASMO MURRAY Diagnosis: Last Documented On 4 3:08PM By Kaitlin Christensen ; [facility] Digoxin 250 MCG Oral Tablet 06/17/2023 Provider: ERASMOARIANA TANRAMAKRISHNA Diagnosis: Last Documented On 4 3:08PM By Kaitlin Christensen ; [facility] Entresto 24-26 MG Oral Tablet 06/17/2023 Provider: ERASMO TREVOR Diagnosis: Last Documented On 4 3:08PM By Kaitlin Christensen ; [facility] Spironolactone 25 MG Oral Tablet 06/17/2023 Provider : JAIME MCKINNEY MD Diagnosis: Last Documented On 4 3:08PM By Kaitlin Christensen ; [facility] Metoprolol Succinate ER 50 M G Oral Tablet Extended Release 24 Hour 06/16/2023 Provider: Diagnosis: Last Documented On 4 3:08PM By Kaitlin Christensen ; [facility] Medications Administered Includes: Administered Medications from this encounter No Administered Medications Recorded Vital Signs Includes: Vital Signs from this encounter Vital Name 07/14/2023 03:09P Height (in) 72 Weight (lb) 210 Body Mass Index 28.5 Body Surface Area 2.2 Note: hdv Last Documented: On 07/14/2023 3:33PM ; [facility] Results Includes: Results discussed during [...] Documented On 4 9:30AM ; [facility] Caffeine use 07/14/2023 Last Documented On 4 9:30AM ; [facility] No recent change in diet 07/14/2023 Last Documented On 4 9:30AM ; [facility] Not exercising regularly 07/14/2023 Last Documented On 4 9:30AM ; [facility] Not using drugs 07/14/2023 Last Documented On 4 9:30AM ; [facility] Yes, current smoker. 07/14/2023 Last Documented On 4 9:30AM ; [facility] Smoking Status Unknown Procedures and Surgical History Includes: Procedures from this encounter Procedures Code Diagnosis Performing Provider Service Location Service Date PELVIS w/ 2-3 VIEW HIP (RIGHT) 48909 Displaced intertrochanteric fracture of right femur, init Maddy Malone PA-C [facility] 07/14/2023 Last Documented On 4 1:48PM ; [facility] an X-ray was performed 91431 Last Documented On 4 3:34PM ; [facility] Surgical History Last Updated History of back surgery 07/14/2023 Last Documented On 4 9:30AM ; [facility] History of Previous Fractures 07/14/2023 Last Documented On 4 9:30AM ; [facility] Medical History Includes: Medical History addressed during this encounter Description Last Updated History of Fractures 07/14/2023 Last Documented On 4 9:30AM ; [facility] History of Hypertension 07/14/2023 Last Documented On 4 9:30AM ; [facility] History of Irregular Heartbeat 4 Last Documented On 4 9:30AM ; [facility] Family History Includes: Family History addressed during this encounter Description Last Updated No significant family history 07/14/2023 Last Documented On 4 9:30AM ; [facility] Review of Systems Includes: Review [...] Time Diagnosis Post Op Maddy Malone PA-C [facility] 4 2:10PM 3:16PM Overweight Insurance Includes: Active Insurance Policies Plan Name Member ID Group # Subscriber Relationship Effect laura Dates 1 - [facility] [id number] Alonso Vale Dylan Self Clinical Notes Includes: Clinical Notes from this encounter * Progress note Date Encounter Last Documented by 07/14/2023 Post Op Last documented on 07/17/2023; 9:30 AM, Maddy Malone PA-C; [facility], [facility] Active Problems & Conditions - [...]
--- OUTSIDE RECORDS SUMMARY | 2023-10-07 15:00 | XMS_ITS ---
Care Plan - [facility] Created on: October 07, 2023 Alonso Richardson : 1965 Sex: Male Author Organization [facility] Address [address] [place] [address] Phone Care Team Providers Care Process Machine Operator Name Role Phone Robbin VELAZCO, Charli Vale Primary Care Provider [phone]
--- OUTSIDE RECORDS SUMMARY | 2023-10-07 15:00 | XMS_ITS | Clinical Summary ---
Author Organization [facility] Address [address] [place] [address] Phone Care Team Providers Care Wooden Frame Builder Name Role Phone Robbin VELAZCO, Charli Vale Primary Care Provider [phone] Reason for Visit and Chief Complaint Consult Problems Includes: Problems addressed during this encounter and other active Problems All Visits Onset Date Resolved Date Provider Condition S tatus Joint Pain in the Right Hip 07/14/2023 Maddy Malone PA-C Active Last Documented On 4 3:08PM ; [facility], [facility] Plan of Treatment Future Appointments Date Time Location Provi giorgio Follow Up 10/14/2023 1:15PM [facility]edics [facility] Maddy Malone PA-C Last Documented On 4 3:26PM ; [facility], [facility] Assessments Includes: Assessments from this encounter No Assessments Recorded Medical Equipment - Implanted Devices Includes: Current Devices No Medical Equipment Recorded Medications Includes: Medications discussed during this encounter and other current Medications Current Medications (continue as prescribed) Eliquis 5 MG Oral Tablet 07/08/2023 Provider: Diagnosis: Last Documented On 4 3:08PM By Kaitlin Christensen ; [facility] Folic Acid 1 MG Oral Tablet 07/08/2023 Provider: Diagnosis: Last Documented On 4 3:08PM By Kaitlin Christensen ; [facility] Levothyroxine Sodium 75 MCG Oral Tablet 07/08/2023 P rovider: Diagnosis: Last Documented On 4 3:08PM By Kaitlin Christensen ; [facility] Methocarbamol 500 MG Oral Tablet 07/08/2023 Provider : Diagnosis: Last Documented On 4 3:08PM By Kaitlin Christensen ; [facility], [facility] oxyCODONE HCl 5 MG Oral Tablet 07/08/2023 Provider: Diagnosis: Last Documented On 4 3:08PM By Kaitlin Christensen ; [facility], [facility] Thiamine HCl 100 MG Oral Tablet 07/08/2023 Provider: Diagnosis: Last Documented On 4 3:08PM By Kaitlin Christensen ; [facility], [facility] Bumetanide 1 MG Oral Tablet 07/08/2023 Provider: Diagnosis: Last Documented On 4 3:08PM By Kaitlin Christensen ; [facility], [facility] Jardiance 10 MG Oral Tablet 06/24/2023 Provider: Diagnosis: Last Documented On 4 3:08PM By Kaitlin Christensen ; [facility], [facility] Amiodarone HCl 200 MG Oral Tablet 06/17/2023 Provide r: ERASMO MURRAY Diagnosis: Last Documented On 4 3:08PM By Kaitlin Christensen ; [facility], [facility] Digoxin 250 MCG Oral Tablet 06/17/2023 Provider: ERASMO MURRAY Diagnosis: Last Documented On 4 3:08PM By Kaitlin Christensen ; [facility], [facility] Entresto 24-26 MG Oral Tablet 06/17/2023 Provider: ERASMO MURRAY Diagnosis: Last Documented On 4 3:08PM By Kaitlin Christensen ; [facility], [facility] Spironolactone 25 MG Oral Tablet 06/17/2023 Provider : JAIME MCKINNEY MD Diagnosis: Last Documented On 4 3:08PM By Kaitlin Christensen ; [facility], [facility] Metoprolol Succinate ER 50 M G Oral Tablet Extended Release 24 Hour 06/16/2023 Provider: Diagnosis: Last Documented On 4 3:08PM By Kaitlin Christensen ; [facility] Medications Administered Includes: Administered Medications from [...] Check-Out Time Diagnosis Consult Lamin Dixon MD [facility] 4 12:22PM 11:59PM Insurance Includes: Active Insurance Policies Plan Name Member ID Group # Subscriber Relationship Effect laura Dates - [facility] [id number] Alonso Richardson Self Clinical Notes Includes: Clinical Notes from this encounter No Clinical Notes Recorded
--- OUTSIDE RECORDS SUMMARY | 2023-10-07 15:01 | XMS_ITS | Clinical Summary ---
Author Organization [facility] Address [address] [place] [address] Phone Care Team Providers Care Certified Court Interpreter Name Role Phone Robbin VELAZCO, Charli Vale Primary Care Provider [phone] Reason for Visit and Chief Complaint WC FOLLOW UP/EST Problems Includes: Problems addressed during this encounter and other active Problems All Visits Onset Date Resolved Date Provider Condition S tatus Joint Pain in the Right Hip 07/14/2023 Maddy Malone PA-C Active Last Documented On 4 3:08PM ; [facility] Plan of Treatment Future Appointments Date Time Location Provi giorgio Follow Up 10/14/2023 1:15PM [facility] B Maddy Malone PA-C Last Documented On 4 3:26PM ; [facility], [facility] Assessments Includes: Assessments from this encounter No Assessments Recorded Medical Equipment - Implanted Devices Includes: Current Devices No Medical Equipment Recorded Medications Includes: Medications discussed during this encounter and other current Medications Current Medications (continue as prescribed) Eliquis 5 MG Oral Tablet 07/08/2023 Provider: Diagnosis: Last Documented On 4 3:08PM By Kaitlin Christensen ; [facility] Folic Acid 1 MG Oral Tablet 07/08/2023 Provider: Diagnosis: Last Documented On 4 3:08PM By Kaitlin Christensen ; [facility] Levothyroxine Sodium 75 MCG Oral Tablet 07/08/2023 P rorozder: Diagnosis: Last Documented On 4 3:08PM By Kaitlin Christensen ; [facility] Methocarbamol 500 MG Oral Tablet 07/08/2023 Provider : Diagnosis: Last Documented On 4 3:08PM By Kaitlin Christensen ; [facility], [facility] oxyCODONE HCl 5 MG Oral Tablet 07/08/2023 Provider: Diagnosis: Last Documented On 4 3:08PM By Kaitlin Christensen ; [facility], [facility] Thiamine HCl 100 MG Oral Tablet 07/08/2023 Provider: Diagnosis: Last Documented On 4 3:08PM By Kaitlin Christensen ; [facility], [facility] Bumetanide 1 MG Oral Tablet 07/08/2023 Provider: Diagnosis: Last Documented On 4 3:08PM By Kaitlin Christensen ; [facility], [facility] Jardiance 10 MG Oral Tablet 06/24/2023 Provider: Diagnosis: Last Documented On 4 3:08PM By Kaitlin Christensen ; [facility], [facility] Amiodarone HCl 200 MG Oral Tablet 06/17/2023 Provide r: ERASMOARIANA TANRAMAKRISHNA Diagnosis: Last Documented On 4 3:08PM By Kaitlin Christensen ; [facility], [facility] Digoxin 250 MCG Oral Tablet 06/17/2023 Provider: ERASMO MURRAY Diagnosis: Last Documented On 4 3:08PM By Kaitlin Christensen ; [facility], [facility] Entresto 24-26 MG Oral Tablet 06/17/2023 Provider: ERASMO MURRAY Diagnosis: Last Documented On 4 3:08PM By Kaitlin Christensen ; [facility] Spironolactone 25 MG Oral Tablet 06/17/2023 Provider : JAIME MCKINNEY MD Diagnosis: Last Documented On 4 3:08PM By Kaitlin Christensen ; [facility], [facility] Metoprolol Succinate ER 50 M G Oral Tablet Extended Release 24 Hour 06/16/2023 Provider: Diagnosis: Last Documented On 4 3:08PM By Kaitlin Christensen ; [facility], [facility] Medications Administered Includes: Administered Medications [...] Diagnosis WC FOLLOW UP/EST Charli Siegel MD [facility] 10/24/19 10 8:55AM 9:54AM Insurance Includes: Active Insurance Policies Plan Name Member ID Group # Subscriber Relationship Effect laura Dates - [facility] [id number] Alonso Richardson Self Clinical Notes Includes: Clinical Notes from this encounter No Clinical Notes Recorded
--- OUTSIDE RECORDS SUMMARY | 2023-10-07 15:01 | XMS_ITS | Clinical Summary ---
Author Organization [facility] Address [address] [place] [address] Phone Care Team Providers Care Lock Maintenance Supervisor Name Role Phone Robbin VELAZCO, Charli Vale Primary Care Provider [phone] Reason for Visit and Chief Complaint [facility] Problems Includes: Problems addressed during this encounter and other active Problems All Visits Onset Date Resolved Date Provider Condition S tatus Joint Pain in the Right Hip 07/14/2023 Maddy Malone PA-C Active Last Documented On 4 3:08PM ; [facility] Plan of Treatment Future Appointments Date Time Location Provi giorgio Follow Up 10/14/2023 1:15PM [facility] paedics [facility] Maddy Malone PA-C Last Documented On 4 3:26PM ; [facility], [facility] Assessments Includes: Assessments from this encounter No Assessments Recorded Medical Equipment - Implanted Devices Includes: Current Devices No Medical Equipment Recorded Medications Includes: Medications discussed during this encounter and other current Medications Current Medications (continue as prescribed) Eliquis 5 MG Oral Tablet 07/08/2023 Provider: Diagnosis: Last Documented On 4 3:08PM By Kaitlin Christensen ; [facility] Folic Acid 1 MG Oral Tablet 07/08/2023 Provider: Diagnosis: Last Documented On 4 3:08PM By Kaitlin Christensen ; [facility] Levothyroxine Sodium 75 MCG Oral Tablet 07/08/2023 P rovider: Diagnosis: Last Documented On 4 3:08PM By Kaitlin Christensen ; [facility] Methocarbamol 500 MG Oral Tablet 07/08/2023 Provider : Diagnosis: Last Documented On 4 3:08PM By Kaitlin Christensen ; [facility], [facility] oxyCODONE HCl 5 MG Oral Tablet 07/08/2023 Provider: Diagnosis: Last Documented On 4 3:08PM By Kaitlin Christensen ; [facility], [facility] Thiamine HCl 100 MG Oral Tablet 07/08/2023 Provider: Diagnosis: Last Documented On 4 3:08PM By Kaitlin Christensen ; [facility], [facility] Bumetanide 1 MG Oral Tablet 07/08/2023 Provider: Diagnosis: Last Documented On 4 3:08PM By Kaitlin Christensen ; [facility], [facility] Jardiance 10 MG Oral Tablet 06/24/2023 Provider: Diagnosis: Last Documented On 4 3:08PM By Kaitlin Christensen ; [facility], [facility] Amiodarone HCl 200 MG Oral Tablet 06/17/2023 Provide r: ERASMOARIANA TANRAMAKRISHNA Diagnosis: Last Documented On 4 3:08PM By Kaitlin Christensen ; [facility], [facility] Digoxin 250 MCG Oral Tablet 06/17/2023 Provider: ERASMO MURRAY Diagnosis: Last Documented On 4 3:08PM By Kaitlin Christensen ; [facility], [facility] Entresto 24-26 MG Oral Tablet 06/17/2023 Provider: ERASMO MURRAY Diagnosis: Last Documented On 4 3:08PM By Kaitlin Christensen ; [facility], [facility] Spironolactone 25 MG Oral Tablet 06/17/2023 Provider : JAIME MCKINNEY MD Diagnosis: Last Documented On 4 3:08PM By Kaitlin Christensen ; [facility], [facility] Metoprolol Succinate ER 50 M G Oral Tablet Extended Release 24 Hour 06/16/2023 Provider: Diagnosis: Last Documented On 4 3:08PM By Kaitlin Christensen ; [facility], [facility] Medications Administered Includes: Administered Medications [...] Location Service Date TREAT THIGH FRACTURE (RIGHT) 89784 Displaced intertrochanteric fracture of right femur, init Lamin Dixon MD [facility] 06/27/2023 Last Documented On 4 12:01PM ; [facility] Medical History Includes: Medical History [...] Location Date Check-In Time Check-Out Time Diagnosis [facility] Lamin Dixon MD [facility] 4 12:27PM 11:59PM Insurance Includes: Active Insurance Policies Plan Name Member ID Group # Subscriber Relationship Effect laura Dates - [facility] [id number] Alonso Richardson Self Clinical Notes Includes: Clinical Notes from this encounter No Clinical Notes Recorded
--- OUTSIDE RECORDS SUMMARY | 2023-10-07 15:01 | XMS_ITS | Clinical Summary ---
Author Organization [facility] , [facility] Address [address] [place] [address] Phone Care Team Providers Care Pool Installer Name Role Phone Robbin VELAZCO, Charli Vale Primary Care Provider [phone] Reason for Visit and Chief Complaint WC FOLLOW UP/EST Problems Includes: Problems addressed during this encounter and other active Problems All Visits Onset Date Resolved Date Provider Condition S tatus Joint Pain in the Right Hip 07/14/2023 Maddy Malone PA-C Active Last Documented On 4 3:08PM ; [facility] Plan of Treatment Future Appointments Date Time Location Provi giorgio Follow Up 10/14/2023 1:15PM [facility] Maddy Malone PA-C Last Documented On 4 3:26PM ; [facility], [facility] Assessments Includes: Assessments from this encounter No Assessments Recorded Medical Equipment - Implanted Devices Includes: Current Devices No Medical Equipment Recorded Medications Includes: Medications discussed during this encounter and other current Medications Current Medications (continue as prescribed) Eliquis 5 MG Oral Tablet 07/08/2023 Provider: Diagnosis: Last Documented On 4 3:08PM By Kaitlin Christensen ; [facility] [place], [facility] Folic Acid 1 MG Oral Tablet 07/08/2023 Provider: Diagnosis: Last Documented On 4 3:08PM By Kaitlin Christensen ; [facility], [facility] Levothyroxine Sodium 75 MCG Oral Tablet 07/08/2023 P rorozder: Diagnosis: Last Documented On 4 3:08PM By Kaitlin Christensen ; [facility], [facility] Methocarbamol 500 MG Oral Tablet 07/08/2023 Provider : Diagnosis: Last Documented On 4 3:08PM By Kaitlin Christensen ; [facility], [facility] oxyCODONE HCl 5 MG Oral Tablet 07/08/2023 Provider: Diagnosis: Last Documented On 4 3:08PM By Kaitlin Christensen ; [facility], [facility] Thiamine HCl 100 MG Oral Tablet 07/08/2023 Provider: Diagnosis: Last Documented On 4 3:08PM By Kaitlin Christensen ; [facility], [facility] Bumetanide 1 MG Oral Tablet 07/08/2023 Provider: Diagnosis: Last Documented On 4 3:08PM By Kaitlin Christensen ; [facility], [facility] Jardiance 10 MG Oral Tablet 06/24/2023 Provider: Diagnosis: Last Documented On 4 3:08PM By Kaitlin Christensen ; [facility], [facility] Amiodarone HCl 200 MG Oral Tablet 06/17/2023 Provide r: ERASMOARIANA TANRAMAKRISHNA Diagnosis: Last Documented On 4 3:08PM By Kaitlin Christensen ; [facility], [facility] Digoxin 250 MCG Oral Tablet 06/17/2023 Provider: ERASMO MURRAY Diagnosis: Last Documented On 4 3:08PM By Kaitlin Christensen ; [facility], [facility] Entresto 24-26 MG Oral Tablet 06/17/2023 Provider: ERASMO MURRAY Diagnosis: Last Documented On 4 3:08PM By Kaitlin Christensen ; [facility], [facility] Spironolactone 25 MG Oral Tablet 06/17/2023 Provider : JAIME MCKINNEY MD Diagnosis: Last Documented On 4 3:08PM By Kaitlin Christensen ; [facility], [facility] Metoprolol Succinate ER 50 M G Oral Tablet Extended Release 24 Hour 06/16/2023 Provider: Diagnosis: Last Documented On 4 3:08PM By Kaitlin Christensen ; [facility], [facility] Medications Administered Includes: Administered [...] FOLLOW UP/EST Charli Siegel MD [facility] 09/28/19 10 8:45AM 10:32AM Insurance Includes: Active Insurance Policies Plan Name Member ID Group # Subscriber Relationship Effect laura Dates - [facility] [id number] Alonso Richardson Self Clinical Notes Includes: Clinical Notes from this encounter No Clinical Notes Recorded
[2023-10-07 15:48] LABS: Basophils # 0.1 K/mm3 (0-0.2); Eosinophils # 0.1 K/mm3 (0.0-0.4); Eosinophils % 3.4 % (0.1-12.0); Hematocrit 43.4 % (42.0-52.0); Hemoglobin 13.6 g/dL (14.1-18.0); Lymphocytes # 1.1 K/mm3 (0.7-4.5); Lymphocytes % 25.3 % (10-50); Mean Corpuscular HGB Conc 31.4 g/dL (31.8-35.4); Mean Corpuscular Hemoglobin 34.1 pg (27.0-31.2); Mean Corpuscular Volume 108.7 fl (80-94); Mean Platelet Volume 8.4 fl (7.4-10.4); Monocytes # 0.3 K/mm3 (0.1-1.0); Monocytes % 7.5 % (1.7-9.3); Neutrophils # 2.6 K/mm3 (1.8-7.8); Neutrophils % 60.7 % (37.0-80.0); Platelet Count 318 K/mm3 (142-424); Red Blood Count 3.99 M/mm3 (4.60-6.20); Red Cell Distribution Width 15.8 % (11.5-17.5); White Blood Count 4.3 K/mm3 (4.8-10.8)
[2023-10-07 16:09] LABS: Alanine Aminotransferase 14 U/L (12-78); Albumin Level 3.3 g/dl (3.5-5.0); Alkaline Phosphatase 215 U/L (38-126); Anion Gap 10.6 mEq/L (5-15); Aspartate Amino Transferase 34 U/L (17-59); Bilirubin,Direct 0.1 mg/dl (0.0-0.4); Bilirubin,Indirect 0.8 mg/dL (0.0-0.9); Bilirubin,Total 0.9 mg/dl (0.2-1.3); Bilirubin,Unconjugated 0.9 mg/dL (0.0-1.1); Blood Urea Nitrogen 13 mg/dl (9-20); Calcium 8.4 mg/dl (8.4-10.2); Carbon Dioxide 29 mmol/L (22.0-30.0); Chloride 101 mmol/L (98-107); Chol/HDL Ratio 2.6 (1-3.5); Cholesterol 138 mg/dl (140-200); Estimated Glomerular Filt Rate 57 ml/min (>60); GFR (African American) 69 ML/MIN (>60); Glucose 91 mg/dl (74-100); HDL Cholesterol 53 mg/dl (40-60); Magnesium 1.2 mg/dl (1.6-2.3); Potassium 3.6 mmoL/L (3.5-5.1); Sodium 137 mmol/L (136-145); Total Protein,Serum 6.7 g/dl (6.3-8.2); Triglycerides 64 mg/dl (30-150); VLDL Cholesterol 13 mg/dL (0-40)
[2023-10-07 16:20] LABS: Direct LDL Cholesterol 64.44 mg/dL (100-129)
[2023-10-07 16:24] LABS: Free T4 (Free Thyroxine) 1.63 ng/dl (0.78-2.19)
== END 2023-10-07 23:59 | disposition home or self-care (01) ==
LOC: LAB 14:59
PROVIDERS: PCP Nurse Practitioner Family; Visit Provider Internal Medicine
DX: I11.0 Hypertensive heart disease with heart failure (principal); I50.32 Chronic diastolic (congestive) heart failure; K21.9 Gastro-esophageal reflux disease without esophagitis; R56.9 Unspecified convulsions; F10.20 Alcohol dependence, uncomplicated
CPT/HCPCS: 36415; 80048; 80061; 80076; 83735; 84439; 84443; 85025

== ENCOUNTER 2023-10-28 13:19 | Outpatient (CLI) | payer MEDICAID, SELFPAY ==
--- NOTE | 2023-10-28 13:20 | MR_ITS ---
FINAL REPORT CLINICAL HISTORY: possible seizure, visual floaters FINDINGS: Multiplanar MR imaging of the brain was performed without and with contrast. There are small scattered foci of abnormal signal in the deep white matter bilaterally. There is no evidence of intracranial hemorrhage or mass. No abnormal extra-axial fluid collection is seen. The ventricular size is within normal limits. There is no evidence of shift of the midline structures. The posterior fossa and brainstem have an unremarkable appearance. No area of abnormal restricted diffusion is identified. No abnormal contrast enhancement is seen. Normal major vessel vascular flow voids are noted. There is mild mucoperiosteal thickening in the left maxillary sinus and the ethmoid air cells. IMPRESSION: No acute intracranial abnormality identified. Small scattered foci of abnormal signal in the deep white matter. Reviewed, Interpreted and Dictated by Nathanael Knowles MD Transcribed by Abeba Escudero Authenticated and [facility]
--- NOTE | 2023-10-28 13:20 | MR_ITS ---
FINAL REPORT CLINICAL HISTORY: possible seizure, visual floaters FINDINGS: MRA NECK WITH AND WITHOUT CONTRAST Multiple MR projection images of the neck arterial vasculature were obtained without and with contrast. The raw data images were also reviewed. The aortic arch is patent. The right common carotid artery is patent. The right internal carotid artery is patent. The right external carotid artery is patent. The right vertebral artery is patent. The left common carotid artery is patent. The left internal carotid artery is patent. The left external carotid artery is patent. The left vertebral artery is patent. The left vertebral artery is dominant. IMPRESSION: No evidence of segmental stenosis. Reviewed, Interpreted and Dictated by Nathanael Knowles MD Transcribed by Abeba Escudero Authenticated and [facility]
--- NOTE | 2023-10-28 13:20 | MR_ITS ---
FINAL REPORT CLINICAL HISTORY: possible seizure, visual floaters FINDINGS: MRA HEAD WITH AND WITHOUT CONTRAST Multiple projection images of the brain arterial vasculature were obtained with and without contrast. raw data images were also reviewed. The internal carotid arteries are patent. The middle cerebral arteries and visualized proximal branches are patent. The anterior cerebral arteries are patent. The intracranial vertebral arteries are patent. The basilar artery is patent. The posterior cerebral arteries are patent. IMPRESSION: No major vessel occlusion. Reviewed, Interpreted and Dictated by Nathanael Knowles MD Transcribed by Abeba Escudero Authenticated and [facility]
[2023-10-28] MEDS: GADOTERIDOL INJ 20ML SYRINGE 16 ML IV (15:08)
[2023-10-28] MEDS: SODIUM CHLORIDE 0.9% 10ML SYR (RAD ONLY) 10 ML IV (15:08)
[2023-10-28] MEDS: 0.9 % SODIUM CHLORIDE 50 ML VIAL 40 ML IV (15:08)
== END 2023-10-28 23:59 | disposition home or self-care (01) ==
LOC: RAD 13:20
PROVIDERS: PCP Internal Medicine; Visit Provider Internal Medicine
DX: H43.393 Other vitreous opacities, bilateral (principal); R56.9 Unspecified convulsions
CPT/HCPCS: 70546; 70549; 70553; A9576

== ENCOUNTER 2023-12-08 15:43 | Emergency (ER) | payer MEDICAID, SELFPAY ==
[2023-12-08] VITALS (11 sets, daily range): BP systolic 115–144; BP diastolic 88–108; PULSE 127–216; RESP 16–41; TEMP 36.7–36.8; O2SAT 94–98; BMI 23.0
--- NOTE | 2023-12-08 15:41 | ECG_ITS ---
APPROVED REPORT Exam: Resting ECG HR:159 bpm ECG Measurements Heart Rate 159 AXES QRSd 139 QRS 84 QT 333 T 61 QTc 422 Conclusion A-fib with RVR No obvious acute ischemic change Right bundle branch block morphology Electronically signed by : MASON KOROMA, 12/08/2023 20:59:25
--- NOTE | 2023-12-08 15:47 | XR_ITS ---
FINAL REPORT CLINICAL HISTORY: soa, palp COMPARISON: None FINDINGS: A single portable view of the chest was obtained. The heart size and pulmonary vascularity are within normal limits. The mediastinum is within normal limits. No acute pulmonary abnormality is identified. The bony thorax is intact. IMPRESSION: No active cardiopulmonary disease. Reviewed, Interpreted and Dictated by Giorgio Mason III, MD Transcribed by Samantha Marcano Authenticated and [facility]
[2023-12-08] MEDS: MAGNESIUM OXIDE 400MG TABLET 800 MG PO (15:54)
[2023-12-08] MEDS: MAGNESIUM SULFATE IN WATER 2 GM/50 ML PIGGYBACK IV (15:54)
[2023-12-08] MEDS: diazePAM 10MG/2ML SYRINGE 10 MG IV ×2 (15:54→16:36)
[2023-12-08] MEDS: THIAMINE 100MG TABLET 100 MG PO (16:01)
[2023-12-08] MEDS: FOLIC ACID 1MG TABLET 1 MG PO (16:01)
[2023-12-08 16:12] LABS: Basophils # 0.1 K/mm3 (0-0.2); Basophils % 2.7 % (0.1-2.0); Eosinophils % 0.9 % (0.1-12.0); Hematocrit 36.4 % (42.0-52.0); Hemoglobin 12.1 g/dL (14.1-18.0); Lymphocytes # 0.8 K/mm3 (0.7-4.5); Lymphocytes % 19.1 % (10-50); Mean Corpuscular HGB Conc 33.3 g/dL (31.8-35.4); Mean Corpuscular Hemoglobin 35.4 pg (27.0-31.2); Mean Corpuscular Volume 106.3 fl (80-94); Monocytes # 0.3 K/mm3 (0.1-1.0); Monocytes % 7.6 % (1.7-9.3); Neutrophils # 2.7 K/mm3 (1.8-7.8); Neutrophils % 69.7 % (37.0-80.0); Platelet Count 121 K/mm3 (142-424); Red Blood Count 3.43 M/mm3 (4.60-6.20); Red Cell Distribution Width 19.1 % (11.5-17.5); White Blood Count 3.9 K/mm3 (4.8-10.8)
[2023-12-08 16:15] LABS: Albumin Level 3.3 g/dl (3.5-5.0)
[2023-12-08 16:16] LABS: Chloride 95 mmol/L (98-107); Potassium 3.7 mmoL/L (3.5-5.1); Sodium 130 mmol/L (136-145)
[2023-12-08 16:18] LABS: Alanine Aminotransferase 51 U/L (12-78); Albumin/Globulin Ratio 1.1 (1.1-1.8); Alkaline Phosphatase 648 U/L (38-126); Anion Gap 18.7 mEq/L (5-15); Aspartate Amino Transferase 216 U/L (17-59); Bilirubin,Total 2.8 mg/dl (0.2-1.3); Blood Urea Nitrogen 12 mg/dl (9-20); Carbon Dioxide 20 mmol/L (22.0-30.0); Creatinine Clearance Estimated 73 mL/min (50-200); Estimated Glomerular Filt Rate 62 ml/min (>60); GFR (African American) 75 ML/MIN (>60); Globulin 3.1 g/dL (1.3-3.2); Total Protein,Serum 6.4 g/dl (6.3-8.2)
[2023-12-08 16:19] LABS: Calcium 7.6 mg/dl (8.4-10.2); Chol/HDL Ratio 2.1 (1-3.5); Cholesterol 116 mg/dl (140-200); Glucose 116 mg/dl (74-100); HDL Cholesterol 54 mg/dl (40-60); INR 1.18 (0.9-1.1); Triglycerides 105 mg/dl (30-150); VLDL Cholesterol 21 mg/dL (0-40)
--- NOTE | 2023-12-08 16:28 | [facility]H.EDCP ---
Discharge Plan Disposition Patient Disposition: Xfer Short-Term Hosp Chief Complaint: Chest Pain Prescriptions Prescriptions: No Action Jardiance 10 mg tablet 10 mg PO DAILY Qty: 30 5RF amiodarone 200 mg tablet 200 mg PO BID levothyroxine [Synthroid] 125 mcg tablet 125 mcg PO DAILY Qty: 30 2RF metoprolol succinate [Toprol XL] 50 mg tablet extended release 24 hr 50 mg PO DAILY Qty: 90 1RF digoxin 250 mcg (0.25 mg) tablet 250 mcg PO DAILY Qty: 30 2RF spironolactone [Aldactone] 25 mg tablet 25 mg PO DAILY Qty: 30 0RF Entresto 24-26 mg tablet 1 tab PO BID Qty: 60 0RF apixaban 5 mg tablet 5 mg PO BID methocarbamol 500 mg tablet 500 mg PO QID thiamine HCl (vitamin B1) 100 mg tablet 100 mg PO DAILY bumetanide 1 mg tablet 1 mg PO DAILY folic acid 1 mg tablet 1 mg PO DAILY magnesium oxide 400 mg (241.3 mg magnesium) Tablet 400 mg PO DAILY 10 Days Qty: 10 0RF chlordiazepoxide HCl 10 mg Capsule 10 mg PO TID 3 Days Qty: 9 0RF Referrals Follow up/Referrals: Jai Kate APRN [Primary Care Provider] - See instructions Clinical Impressions Clinical Impression: CHF exacerbation, Hypothyroidism, Atrial fibrillation with RVR, Acute hypoxemic respiratory failure, Hypomagnesemia, Alcohol withdrawal syndrome Stand Alone Forms Stand Alone Forms: Transfer Record - ED Print Language Print Language: Croatian Discharge ED Provider: Nathaniel Bishop HPI General Chief Complaint: Chest Pain Stated Complaint: TACHYCARDIA Time Seen by Provider: 12/08/23 15:45 Mode of Arrival: Ambulatory Source of Information: Patient and EMS Limitations: No Limitations Description of Symptoms (Recalled from ER Triage Doc. by RN): Patient presents to ED via [facility] after being at Primary care facility and c/o of chest pain. Patient states he has been having chest pain for a few days. Patient was being seen for testicle swelling. Patient reports to MD that he drinks regularly a fifth of alcohol daily. History of Present Illness HPI narrative: Please note that above description of symptoms, in this electronic medical record under categorization of recalled from ER triage doctor by RN are reflective of an initial nursing assessment, however, is not reflective of my full history and physical exam that was personally taken and clarified. Consequentially, this preceding description of symptoms, which may include the patient's categorized chief complaint in the EMR, do not reflect my personal clinical impression, and the ultimate description of history of present illness and patient stated complaints should be deferred to this section of the note. Unless stated otherwise or congruent with this section of the note, additional signs, symptoms, or incongruence should be interpreted as inaccurate with my clinical impression. Related Data Home Medications ?Medication ?Instructions ?Recorded ?Confirmed apixaban 5 mg tablet 5 mg PO BID 06/16/23 12/08/23 bumetanide 1 mg tablet 1 mg PO DAILY 07/25/23 12/08/23 folic acid 1 mg tablet 1 mg PO DAILY 07/25/23 12/08/23 methocarbamol 500 mg tablet 500 mg PO QID 07/25/23 12/08/23 thiamine HCl (vitamin B1) 100 mg 100 mg PO DAILY 07/25/23 12/08/23 tablet amiodarone 200 mg tablet 200 mg PO BID 10/07/23 12/08/23 Previous Rx's ?Medication ?Instructions ?Recorded sacubitril 24 mg-valsartan 26 mg 1 tab PO BID #60 tabs 03/28/23 tablet (Entresto) spironolactone 25 mg tablet 25 mg PO DAILY #30 tabs 03/28/23 (Aldactone) empagliflozin 10 mg tablet 10 mg PO DAILY #30 tabs 06/16/23 (Jardiance) magnesium oxide 400 mg (241.3 mg 400 mg PO DAILY 10 days #10 tabs 07/25/23 magnesium) tablet chlordiazepoxide HCl 10 mg capsule 10 mg PO TID 3 days #9 caps 08/16/23 levothyroxine 125 mcg tablet 125 mcg PO DAILY #30 tabs 10/09/23 (Synthroid) metoprolol succinate 50 mg 50 mg PO DAILY #90 tabs 11/06/23 tablet,extended release 24 hr (Toprol XL) digoxin 250 mcg (0.25 mg) tablet 250 mcg PO DAILY #30 tabs 11/07/23 Allergies Allergy/AdvReac Type Severity Reaction Status Date / Time hydrochlorothiazide AdvReac Unknown Other Verified 12/08/23 14:40 [facility] Disclaimer: The information contained in this section may have been updated after the patient was seen, as this information can be updated by other users. 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 COPD (chronic obstructive pulmonary disease) Pulmonary hypertension Cirrhosis, alcoholic CHF (congestive heart failure) Hypertension Atrial fibrillation with rapid ventricular response Exposure to COVID-19 virus Surgical History History of discectomy History of cardiac radiofrequency ablation Family History Other Cancer Hypertension Stroke Substance abuse Social History Smoking Status: Current every day smoker tobacco type: cigarettes packs per day: 2 alcohol intake: current alcohol intake frequency: 3 or more drinks per day substance use type: denies use current occupational status: employed Travel in the last 8 weeks: None household members: significant other housing: house 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 Tremulous) Eye Eye exam: Present conjunctival injection; Absent jaundice ENT ENT exam: Present mucous membranes dry Neck Neck exam: Present trachea midline; Absent tenderness or meningismus Chest Chest inspection: Present normal inspection and symmetric chest wall rise Respiratory Respiratory exam: Present wheezes (Minimal end expiratory); Absent respiratory distress, stridor, accessory muscle use or prolonged expiratory phase Cardiovascular Cardiovascular exam: Present normal rhythm, tachycardia, irregular rhythm and other (Pulses equal and symmetric in upper and lower extremities) Extremities Exam Extremities exam: Present edema Neurological Exam Neurological exam: Present alert, oriented X3 and CN II-XII intact; Absent motor sensory deficit Skin Skin exam: Present warm and dry; Absent cyanosis, diaphoresis or pallor HEART Score HEART Score HEART Score assessment performed?: Yes History (anamnesis): Moderately suspicious ECG: Non-specific disturbance Age: 45-65 years Risk factors: 3 or more risk factors Troponin: </= normal limit HEART Score: 5 Critical Care Critical Care Time Critical Care Time: Yes (cardiac, toxicologic) Attestation: On 12/08/23, the high probability of a clinically significant, sudden or life threatening deterioration of the following system(s) required my full and direct attention, intervention and personal management. The time I documented below is in addition to time spent performing reported procedures but includes the following listed in this critical care notation. Total Time Total Critical Care Time: 60 Medical Decision Making Medical Records Medical records reviewed: Yes I reviewed the patient's medical records. Paul Inquiry Pt receiving controlled substance: No Paul was queried for this patient: No Vital Signs Vital Signs: 12/08/23 15:43 12/08/23 16:00 12/08/23 16:30 Temperature 98.0 F Temperature Source Oral Pulse Rate 216 H 156 H Pulse Rate [Right Brachial] 158 H Respiratory Rate 20 41 H 17 Blood Pressure 137/100 H 141/108 H Blood Pressure [Right Arm] 144/106 H Blood Pressure Mean [Right Arm] 118 Blood Pressure Source [Right Arm] Automatic Cuff Blood Pressure Position [Right Arm] Supine 02 Sat by Pulse Oximetry 96 94 L 97 Oxygen Delivery Method Room Air Nasal Cannula Nasal Cannula Oxygen Flow Rate (LPM) 2 2 12/08/23 17:01 12/08/23 17:39 12/08/23 18:30 Temperature Temperature Source Pulse Rate 139 H 134 H 127 H Pulse Rate [Right Brachial] Respiratory Rate 16 23 Blood Pressure 120/88 129/98 H Blood Pressure [Right Arm] Blood Pressure Mean [Right Arm] Blood Pressure Source [Right Arm] Blood Pressure Position [Right Arm] 02 Sat by Pulse Oximetry 98 98 Oxygen Delivery Method Room Air Room Air Oxygen Flow Rate (LPM) Lab Data Labs: Lab Results 12/08/23 15:45: WBC 3.9 L, RBC 3.43 L, Hgb 12.1 L, Hct 36.4 L, MCV 106.3 H, MCH 35.4 H, MCHC 33.3, RDW 19.1 H, Plt Count 121 L, MPV 9.0, Neut % (Auto) 69.7, Lymph % (Auto) 19.1, [place] % (Auto) 7.6, Eos % (Auto) 0.9, Baso % (Auto) 2.7 H, Neut # (Auto) 2.7, Lymph # (Auto) 0.8, [place] # (Auto) 0.3, Eos # (Auto) 0.0, Baso # (Auto) 0.1, PT 13.0 H, INR 1.18 H, APTT 28.0, Sodium 130 L, Potassium 3.7, Chloride 95 L, Carbon Dioxide 20 L, Anion Gap 18.7 H, BUN 12, Creatinine 1.20, Estimated Creat Clear 73, Estimated GFR 62, Est GFR ( Amer) 75, Glucose 116 H, Calcium 7.6 L, Magnesium 0.7 L, Total Bilirubin 2.8 H, Direct Bilirubin 1.5 H, AST 216 H, ALT 51, Alkaline Phosphatase 648 H, Troponin I 0.02, NT-Pro-B Natriuret Pep 6380 H, Total Protein 6.4, Albumin 3.3 L, Globulin 3.1, Albumin/Globulin Ratio 1.1, Triglycerides 105, Cholesterol 116 L, LDL Cholesterol Direct 39.77 L, VLDL Cholesterol 21, HDL Cholesterol 54, Cholesterol/HDL Ratio 2.1, Procalcitonin 0.129, TSH 54.80 H, Thyroxine (T4) 4.1 L, Salicylates < 1.0 L, Plasma/Serum Alcohol 46 H, HIV 1&2 Antibody Rapid Nonreactive 12/08/23 : Lactate 4.8 H 12/08/23 15:45 12/08/23 15:45 Response Orders (Tests/Meds): ED MEDICATIONS Generic Name Dose Route Start Last Admin Trade Name Freq PRN Reason Stop Dose Admin Diazepam 10 mg 12/08/23 16:29 Diazepam 10mg/2ml Syringe IV 01/07/24 16:28 Q1HP PRN CIWA >16 Diazepam 5 mg 12/08/23 16:29 Diazepam 5mg Tablet PO 01/07/24 16:28 Q1HP PRN CIWA Score 8-15 Diazepam 5 mg 12/08/23 16:29 Diazepam 5mg Tablet PO 01/07/24 16:28 Q6HP PRN CIWA 2-7 Vancomycin/PEG/NADA/Lysine/Water 1.5 gm in 300 mls @ 150 mls/hr 12/08/23 18:15 12/08/23 18:17 Vancomycin 1.5gm/300ml (Peg) Premix IV 12/08/23 20:14 150 mls/hr ONCE ONE Administration Diltiazem HCl 100 mg/ Sodium 100 mls @ 5 mls/hr 12/08/23 18:28 12/08/23 18:38 Chloride IV 01/07/24 18:27 5 mg/hr .Q20H RYAN 5 mls/hr Administration Protocol 5 MG/HR Miscellaneous 1 each 12/08/23 18:15 12/08/23 18:15 Vancomycin Consult Request NOTAPPLIC 01/07/24 18:14 1 each CONSULT PHARMACY [facility] Administration Nicotine 21 mg 12/08/23 18:30 Nicotine 21mg/24hr Patch TD 01/07/24 18:29 DAILY [facility] Discontinued Medications Generic Name Dose Route Start Last Admin Trade Name Freq PRN Reason Stop Dose Admin Chlordiazepoxide HCl 50 mg 12/08/23 16:25 12/08/23 16:36 Chlordiazepoxide 25mg Capsule PO 12/08/23 16:26 50 mg ONCE ONE Administration Diazepam 10 mg 12/08/23 15:46 12/08/23 15:54 Diazepam 10mg/2ml Syringe IV 12/08/23 15:47 10 mg ONCE ONE Administration Diazepam 10 mg 12/08/23 16:29 12/08/23 16:36 Diazepam 10mg/2ml Syringe IV 12/08/23 16:30 10 mg ONCE ONE Administration Diltiazem HCl 20 mg 12/08/23 16:25 12/08/23 16:30 Diltiazem 25mg/5ml Vial IV 12/08/23 16:26 Not Given ONCE ONE Folic Acid 1 mg 12/08/23 15:54 12/08/23 16:01 Folic Acid 1mg Tablet PO 12/08/23 15:55 1 mg ONCE ONE Administration Furosemide 60 mg 12/08/23 18:28 12/08/23 18:35 Furosemide 40mg/4ml Vial IV 12/08/23 18:29 60 mg ONCE ONE Administration Magnesium Sulfate 2 gm in 50 mls @ 50 mls/hr 12/08/23 15:46 12/08/23 15:54 Magnesium Sulfate 2gm/50ml Premix IV 12/08/23 16:45 50 mls/hr ONCE ONE Administration Ampicillin Sodium/Sulbactam 100 mls @ 200 mls/hr 12/08/23 18:01 12/08/23 18:07 Sodium 3 gm/ Sodium Chloride IV 12/08/23 18:02 Not Given ONCE ONE Ampicillin Sodium/Sulbactam 100 mls @ 200 mls/hr 12/08/23 18:07 12/08/23 18:09 Sodium 3 gm/ Sodium Chloride IV 12/08/23 18:08 200 mls/hr ONCE ONE Administration Iopamidol 75 ml 12/08/23 17:27 12/08/23 17:28 Iopamidol-370 (76%);100ml Bottle IV 12/08/23 17:28 75 ml ONCE ONE Administration Magnesium Oxide 800 mg 12/08/23 15:46 12/08/23 15:54 Magnesium Oxide 400mg Tablet PO 12/08/23 15:47 800 mg ONCE ONE Administration Metoprolol Tartrate 5 mg 12/08/23 16:26 12/08/23 16:36 Metoprolol Tartrate 5mg/5ml Vial IV 12/08/23 16:27 5 mg ONCE ONE Administration Metoprolol Tartrate 5 mg 12/08/23 17:16 12/08/23 17:19 Metoprolol Tartrate 5mg/5ml Vial IV 12/08/23 17:17 5 mg ONCE ONE Administration Sodium Chloride 10 ml 12/08/23 17:27 12/08/23 17:28 Sodium Chloride 0.9% 10ml Syr (Rad Only) IV 12/08/23 17:28 10 ml ONCE ONE Administration Thiamine HCl 100 mg 12/08/23 15:54 12/08/23 16:01 Thiamine 100mg Tablet PO 12/08/23 15:55 100 mg ONCE ONE Administration ORDERS Category Date Time Status CT abdomen pelvis w con Stat Cat Scan 12/08/23 17:06 Completed XR chest portable Stat Exams 12/08/23 15:47 Completed Activated Partial Thrombo Time Routine Lab 12/08/23 15:45 Completed Bilirubin,Direct Stat Lab 12/08/23 15:45 Completed Complete Blood Count Auto Diff Stat Lab 12/08/23 15:45 Completed Comprehensive Metabolic Panel Stat Lab 12/08/23 15:45 Completed Drug Screen,Urine Stat Lab 12/08/23 15:47 Ordered Ethanol [Ethyl Alcohol] Stat Lab 12/08/23 15:45 Completed HIV (1&2) Antibody Rapid Stat Lab 12/08/23 15:45 Completed Hep C Ab with Reflex to RNA Stat Lab 12/08/23 15:45 Received Lactic Acid Stat Lab 12/08/23 Completed Lipid Panel Stat Lab 12/08/23 15:45 Completed Magnesium Stat Lab 12/08/23 15:45 Completed NT Pro Brain Natriuretic Pep. Stat Lab 12/08/23 15:45 Completed PT INR [Prothrombin Time INR] Stat Lab 12/08/23 15:45 Completed Procalcitonin Stat Lab 12/08/23 15:45 Completed Salicylate Stat Lab 12/08/23 15:45 Completed T4 (Thyroxine) Stat Lab 12/08/23 15:45 Completed TSH [Thyroid Stimulating Hormone] Stat Lab 12/08/23 15:45 Completed Troponin I Q3H Lab 12/08/23 19:00 Ordered Troponin I Q3H Lab 12/08/23 22:00 Ordered Troponin I Stat Lab 12/08/23 15:45 Completed Blood Culture Stat Micro 12/08/23 17:00 Received MDM Narrative Medical Decision Narrative: 58-year-old male history of hypertension, hyperlipidemia, A-fib on Eliquis, CHF, COPD still smoking not on home oxygen, daily ethanol abuse drinking 1/5 of hard liquor daily with associated cirrhosis, chronic testicular hydrocele and swelling presenting with multiple complaints. Patient states that he has been feeling tired and weak the past few days. Still smoking, still drinking, has not had liquor in about 48 hours, however. States that he was going to his family doctor earlier today on 12/07 to have testicles examined given degree of swelling and discomfort. At primary care physician's office, patient had tachycardia, tremors, unwell appearance, EMS was contacted and brought patient to the emergency department. On arrival, patient states that he has been feeling unwell for a few days, but denies chest pain. Intermittent shortness of breath with exertion. Also associate lower extremity edema. States that he was trying to withdrawal from alcohol at home a couple of weeks prior to this, had a generalized tonic-clonic seizure, started drinking again at that time. Has not tried since. No hallucinations, history was obtained via conversation with patient and EMS. On arrival, patient hemodynamically stable, alert, oriented x4, appropriate, GCS 15, moving all extremities spontaneously, pupils equal and reactive to light. Full physical exam performed and significant for anxious appearing male who is tremulous. He is tachycardic, irregular rhythm. Cardiac exam without murmurs gallops or rubs, but patient does have expiratory wheezes on pulmonary auscultation diffusely. No focal breath sounds. Abdomen soft, distended, nontender. Bilateral hydroceles, no testicular tenderness or overlying skin changes. Lower extremity edema without obvious abnormality otherwise, neurovascularly intact. Differential includes CHF exacerbation, progression of liver disease, end-stage cirrhosis, portal hypertension, alcohol withdrawal, intoxication, metabolic abnormality, endocrinologic abnormality, among others. Patient was given 10 mg Valium IV, folate, thiamine, magnesium IV and p.o., 5 mg metoprolol IV for symptomatic management and correction of underlying abnormalities. Patient placed on continuous cardiac monitoring and continuous pulse ox with initial blood pressure 144/106, heart rate 158 and irregular, saturation 87% on room air, 96% on 2 L nasal cannula. Independent interpretation of EKG shows A-fib with RVR [address] depressions in anterior leads, however patient does have right bundle branch block morphology. No reciprocal change. Rightward axis on EKG. QRS 139, QTc 422. On reevaluation after 10 mg Valium, patient's heart rate 150, blood pressure still elevated, patient minimal response, another 10 mg IV Valium was ordered. Patient was also given 5 mg IV metoprolol workup independently interpreted and significant for acute leukopenia and thrombocytopenia, stable anemia. Patient's INR 1.18, normal PTT. Patient also acutely hyponatremic 130 with normal potassium at 3.7. Anion gap 18.7, lactate 4.8. Kidney function normal. Regarding patient's LFTs, alkaline phosphatase 650, AST 216, ALT 51, total bilirubin 2.8 and direct bilirubin 1.5. Likely secondary to chronic alcohol abuse versus congestive hepatopathy, or a commendation of both. Patient's BNP elevated at 6380, troponin negative. Thyroid studies remarkable for clinical hypothyroidism with TSH 55, T4 low at 4.1. On reevaluation, patient still in no acute distress. Still patient tachycardic, another 5 mg metoprolol IV was given. Patient was also given another 10 mg of Valium IV. Mild relief, but patient still tachycardic. After on independent interpretation of imaging, no acute cardiopulmonary airspace disease, pulmonary hilar fullness bilaterally. No pneumothorax. CT of the abdomen and pelvis without acute abnormality and no obvious acute dilation of intrahepatic ducts. See radiology read for full review of final results. Heart score 5. Because patient remains tachycardic with elevated lactic acid and mildly ill-appearing, vancomycin and Unasyn were administered. Sepsis fluid bolus was considered, however patient clinically very volume overloaded and IV fluid shortage. Diuresis was opted for in its place. Patient given 40 mg IV Lasix. Patient also placed on diltiazem drip. Hospital medicine contacted here and case was discussed at length, hospital full, no ICU beds. Because of this, [facility] was contacted and case was discussed at length for transfer for [facility] ICU evaluation, graciously excepted for transfer under Dr. Goer. Food Service Specialist disclaimer Much of this encounter note is an electronic rail bonder spoken language to printed text. Electronic rail bonder of the spoken language may permit errors. Although I have reviewed the note, some errors may still exist.
[2023-12-08 16:30] LABS: Direct LDL Cholesterol 39.77 mg/dL (100-129)
[2023-12-08 16:31] LABS: NT Pro Brain Natriuretic Pep. 6380 pg/mL (0-125)
[2023-12-08 16:33] LABS: Troponin I 0.02 ng/ml (0.00-0.034)
[2023-12-08] MEDS: METOPROLOL TARTRATE 5MG/5ML VIAL 5 MG IV ×2 (16:36→17:19)
[2023-12-08 16:38] LABS: T4 (Thyroxine) 4.1 ug/dl (5.53-11.0)
[2023-12-08 16:44] LABS: Salicylate < 1.0 mg/dL (2.0-20.0)
[2023-12-08 16:46] LABS: Magnesium 0.7 mg/dl (1.6-2.3)
--- NOTE | 2023-12-08 16:46 | PC.NURSE ---
CRITICAL MAG 0.7 RECEIVED FROM LAB. PT NAME AND R/V. DR KOROMA NOTIFIED
[2023-12-08 16:51] LABS: Ethyl Alcohol 46 mg/dl (0-10)
--- NOTE | 2023-12-08 17:06 | CT_ITS ---
PROCEDURE INFORMATION: Exam: CT Abdomen And Pelvis With Contrast Exam date and time: 12/08/2023 5:29 PM Age: 58 years old Clinical indication: Abnormal findings; Abnormal lab test; Other: Elevated lft; Additional info: Elevated lft, bili. Rule out obstructive path TECHNIQUE: Imaging protocol: Computed tomography of the abdomen and pelvis with contrast. Radiation optimization: All CT scans at this facility use at least one of these dose optimization techniques: automated exposure control; mA and/or kV adjustment per patient size (includes targeted exams where dose is matched to clinical indication); or iterative reconstruction. Contrast material: ISOVUE; Contrast volume: 75 ml; Contrast route: IV; COMPARISON: CT ANGIO ABDOMEN PELVIS 06/25/2023 5:38 PM FINDINGS: Liver: Decreased density throughout the liver compatible with hepatic steatosis. Gallbladder and biliary ducts: Gallbladder unremarkable Pancreas: Pancreas unremarkable Spleen: Splenic granulomas Adrenal glands: Mild thickening of the left adrenal gland Kidneys and ureters: Right renal cyst again demonstrated. Perinephric stranding. Findings nonspecific and may reflect acute versus chronic inflammatory change. Stomach and bowel: Apparent wall thickening in the colon may be secondary to incomplete filling versus mild colitis. Clinically correlate. Appendix: No evidence of appendicitis. Intraperitoneal space: Unremarkable. No free air. No significant fluid collection. Vasculature: Unremarkable. No abdominal aortic aneurysm. Lymph nodes: Unremarkable. No enlarged lymph nodes. Urinary bladder: Mild thickening of the bladder wall may reflect incomplete distension. Could not exclude changes of cystitis. Reproductive: Unremarkable as visualized. Bones/joints: Lumbar spondylosis with multilevel disc degeneration. Chronic L1 compression fracture deformity. Status post ORIF right proximal femur. Findings incompletely visualized. No evidence to suggest acute osseous injury. Soft tissues: Unremarkable. Other findings: 0 the in IMPRESSION: 1. Decreased density throughout the liver compatible with hepatic steatosis. 2. Apparent wall thickening in the colon may be secondary to incomplete filling versus mild colitis. Clinically correlate. 3. Mild thickening of the bladder wall may reflect incomplete distension. Could not exclude changes of cystitis.
[2023-12-08 17:07] LABS: HIV (1&2) Antibody Rapid NONREACTIVE (NONREACTIVE)
[2023-12-08 17:15] LABS: Bilirubin,Direct 1.5 mg/dl (0.0-0.4)
[2023-12-08] MEDS: IOPAMIDOL-370 (76%);100ML BOTTLE 75 ML IV (17:28)
[2023-12-08] MEDS: SODIUM CHLORIDE 0.9% 10ML SYR (RAD ONLY) 10 ML IV (17:28)
--- NOTE | 2023-12-08 18:01 | PC.NURSE ---
CRITICAL LACTIC 4.8, PT NAME AND R/V. DR KOROMA NOTIFIED
[2023-12-08 18:02] LABS: Procalcitonin 0.129 ng/mL (0.0-2.0)
[2023-12-08 18:02] LABS: Lactic Acid 4.8 mmol/L (0.7-2.1)
--- NOTE | 2023-12-08 18:02 | PC.NURSE ---
Pt stated he needs to have a bowel movement. I offered pt a bedpan to use and he refused but agreed to bedside commode. Placed bedside commode next to pt bed and assisted him sitting. He advised he wanted to use it alone so I gave him his call light and advised him not to get up without calling for help getting back into bed.
[2023-12-08] MEDS: AMPICILLIN SODIUM/SULBACTAM 3 GM in 0.9 % SODIUM CHLORIDE 100 ML IV (18:09)
[2023-12-08] MEDS: VANCOMYCIN CONSULT REQUEST 1 EACH NOTAPPLIC (18:15)
[2023-12-08] MEDS: VANCOMYCIN/WATER FOR INJ (PEG) 1.5 GM/300 ML PIGGYBACK IV (18:17)
[2023-12-08] MEDS: FUROSEMIDE 40MG/4ML VIAL 60 MG IV (18:35)
[2023-12-08] MEDS: dilTIAZem HCL 100 MG in 0.9 % SODIUM CHLORIDE 100 ML IV (18:38)
--- NOTE | 2023-12-08 19:01 | PEERSUPPORT ---
Peer Support Note Patient Information Patient Information: DOS: 12/08/2023 ? Reason: AUD/PS Consult ? Pt says he has had no alcohol for 48 hours. He is drinking a fifth of bourbon everyday, for the last year. He started drinking beer at an early age of [age] years old, then at 22 years old he started drinking bourbon and is now 58 years old. At one point while ps was bedside he stated They are people on the other side of his room that is talking so loud they sound as if they are in the room with him. Ps provides empathetic listening to validate. Ps educates pt on awareness to alcohol detox symptoms and stages of alcohol withdrawal encouraging self-awareness to report to nurses or doctors. ? Previous Treatment: Pt admitted himself to inpatient rehabilitation for his drinking, years ago. He is unable to remember what year. He stated he stayed for 28 days, that only last two weeks after going home until he drank again. ? Longest Length of Sobriety: 6 weeks during his stay at [facility] AUD. ? Support System: Ping his friend who cleans his house. Alex his neighbor, who kept telling him something was wrong with him that he needed to go to the doctor. ? Current Stressors: -Current health conditions: Being transferred [facility], feared that his friends who would want to come see him will not be able to. -Grief of his who passed nearly one year ago. - His dogs care while being admitted-PS discussed plan of action to care for pet. ?? Pt states neighbor will care for him. -Nicotine cravings -RN provided nicotine patch. ? Motivation for Change: Pt aware he needs to make changes by his health, he appears to want change to live and be able to be there for his dog. ? Plan: Pt agrees to after care follow up calls with Ps to assist in staying connected to recovery and finding outpatient care specialized in AUD. Thank you for allowing [facility] to assist in caring for the patient.
[2023-12-08 20:01] LABS: Troponin I 0.02 ng/ml (0.00-0.034)
[2023-12-08] MEDS: NICOTINE 21MG/24HR PATCH 21 MG TD (20:01)
[2023-12-08 21:26] LABS: Reflex Lactic Add Lactic Reflex
[2023-12-10 09:15] LABS: HCV Ab Non Reactive (Non Reactive)
== END 2023-12-08 21:00 | disposition short-term general hospital (02) ==
PROVIDERS: Emergency Provider Emergency Medicine; PCP Nurse Practitioner Family
DX: I50.9 Heart failure, unspecified (principal); I48.91 Unspecified atrial fibrillation; J96.01 Acute respiratory failure with hypoxia; E03.9 Hypothyroidism, unspecified; E83.42 Hypomagnesemia; R07.9 Chest pain, unspecified; F10.939 Alcohol use, unspecified with withdrawal, unspecified; F17.200 Nicotine dependence, unspecified, uncomplicated
CPT/HCPCS: 71045; 74177; 80053; 80061; 80320; 80329; 82248; 83605; 83735; 83880; 84145; 84436; 84443; 84484; 85025; 85610; 85730; 86803; 87040; 87389; 93005; 96374; 96375; 99291; J0295; J1940; J3360; J3475; Q9967

== ENCOUNTER 2024-03-18 18:45 | Inpatient (IN) | payer MEDICAID, SELFPAY ==
[2024-03-18] VITALS (12 sets, daily range): BP systolic 75–115; BP diastolic 54–94; PULSE 69–156; RESP 16–38; TEMP 36.6–36.9; O2SAT 70–100; BMI 30.3
--- NOTE | 2024-03-18 18:48 | PC.NURSE ---
Dr. Rosenberg at bedside
--- NOTE | 2024-03-18 18:50 | ECG_ITS ---
APPROVED REPORT Exam: Resting ECG HR:152 bpm ECG Measurements Heart Rate 152 AXES QRSd 141 QRS 95 QT 307 T 90 QTc 393 Conclusion ATRIAL FIBRILLATION WITH RAPID VENTRICULAR RESPONSE BORDERLINE RIGHT AXIS DEVIATION [QRS AXIS > 90] INTRAVENTRICULAR CONDUCTION DELAY [130+ ms QRS DURATION] CRITICAL TEST RESULT Electronically signed by : LICHA AGARWAL, 03/19/2024 00:51:52
--- NOTE | 2024-03-18 18:57 | XR_ITS ---
PROCEDURE INFORMATION: Exam: XR Chest Exam date and time: 03/18/2024 7:39 PM Age: 59 years old Clinical indication: Shortness of breath; Additional info: Afib rvr, shock TECHNIQUE: Imaging protocol: Radiologic exam of the chest. Views: 1 view. Total images: 2 COMPARISON: CR XR CHEST PORTABLE 12/08/2023 4:06 PM FINDINGS: Tubes, catheters and devices: EKG leads and extrinsic cardiac pacer pads limits evaluation. Lungs: Densely calcified left hilar lymph nodes. Densely calcified left upper lobe granuloma. No acute infiltrate, airspace consolidation, or vascular congestion. No pulmonary edema. Pleural spaces: Unremarkable. No pleural effusion. No pneumothorax. Heart/Mediastinum: Densely calcified right paratracheal lymph nodes. Normal heart size. No mediastinal widening. Bones/joints: Multiple remote bilateral rib fracture deformities. Other findings: Lordotic positioning. IMPRESSION: 1. No radiographically acute cardiopulmonary process. 2. Remote calcified granulomatous disease.
[2024-03-18 19:05] LABS: Basophils # 0.1 K/mm3 (0-0.2); Basophils % 2.2 % (0.1-2.0); Eosinophils # 0.3 K/mm3 (0.0-0.4); Eosinophils % 4.2 % (0.1-12.0); Hematocrit 32.9 % (42.0-52.0); Hemoglobin 11.1 g/dL (14.1-18.0); Lymphocytes # 1.7 K/mm3 (0.7-4.5); Mean Corpuscular HGB Conc 33.7 g/dL (31.8-35.4); Mean Corpuscular Hemoglobin 34.2 pg (27.0-31.2); Mean Corpuscular Volume 101.2 fl (80-94); Mean Platelet Volume 10.7 fl (7.4-10.4); Monocytes # 0.7 K/mm3 (0.1-1.0); Neutrophils # 3.1 K/mm3 (1.8-7.8); Neutrophils % 52.3 % (37.0-80.0); Platelet Count 136 K/mm3 (142-424); Red Blood Count 3.25 M/mm3 (4.60-6.20)
[2024-03-18 19:10] LABS: VBG Base Excess -2.9 mmol/L (-2.4-2.3); VBG HCO3 22.4 mmol/L (23-30); VBG PCO2 39.6 mmol/L (35-51); VBG PH 7.37 mmol/L (7.31-7.41); VBG PO2 26.5 mmol/L (28-40); VBG Total CO2 23.6 mmol/L (23-27)
[2024-03-18 19:12] LABS: Lactate Venous 5.1 mmol/L (0.4-2.0)
[2024-03-18 19:15] LABS: Activated Partial Thrombo Time 29.6 seconds (22.8-30.6); INR 1.11 (0.9-1.1); Prothrombin Time 12.3 seconds (10.1-12.5)
[2024-03-18] MEDS: VASOPRESSIN 40 UNIT in 0.9 % SODIUM CHLORIDE 100 ML IV (19:17)
[2024-03-18 19:24] LABS: Alanine Aminotransferase 40 U/L (12-78); Alkaline Phosphatase 273 U/L (38-126); Anion Gap 16.5 mEq/L (5-15); Aspartate Amino Transferase 60 U/L (17-59); Blood Urea Nitrogen 23 mg/dl (9-20); Calcium 7.3 mg/dl (8.4-10.2); Carbon Dioxide 24 mmol/L (22.0-30.0); Chloride 95 mmol/L (98-107); Creatinine Clearance Estimated 69 mL/min (50-200); Estimated Glomerular Filt Rate 41 ml/min (>60); GFR (African American) 50 ML/MIN (>60); Glucose 86 mg/dl (74-100); Lipase 28 U/L (23-300); Potassium 3.5 mmoL/L (3.5-5.1); Sodium 132 mmol/L (136-145)
--- NOTE | 2024-03-18 19:26 | ED_ITS ---
Discharge Plan Disposition Patient Disposition: Admitted Condition: Good Clinical Impressions Clinical Impression: Cardiogenic shock, Hypocalcemia, Atrial fibrillation with RVR, Hypomagnesemia, Alcohol abuse, Hypophosphatemia, Hypothyroidism Discharge ED Provider: Lashell Rosenberg General Adult HPI General Chief complaint: Shortness of Breath/Dyspnea Stated complaint: weakness Time Seen by Provider: 03/18/24 18:47 Mode of Arrival: EMS Source of Information: Patient and EMS Limitations: No Limitations Description of Symptoms (Recalled from ER Triage Doc. by RN): weakness,etoh use,elevated HR, SOB, Bedsores History of Present Illness HPI narrative: This patient is a 59-year-old male with a history of alcohol abuse, atrial fibrillation, CHF with an EF of around 20% as of December, COPD, GERD, hypothyroidism presenting to the emergency department for evaluation with concern for general illness. Patient reports that he was admitted to for a month for issues with his heart and fast heart rate. This was back in December. He was discharged home, and he states that since going home he has not been taking his medications. He has been drinking alcohol every day instead, drinking approximately a fifth of liquor each day. What prompted evaluation today as he said worsened weeping from a wound on his back, lower extremity swelling that is bilateral and making it difficult to walk, and he overall just does not feel well. He arrives by EMS who noted he is very ill-appearing, hypotensive, tachycardic. O2 saturation low on room air as well. Related Data Home Medications ?Medication ?Instructions ?Recorded ?Confirmed bumetanide 1 mg tablet 1 mg PO DAILY 07/25/23 01/15/24 methocarbamol 500 mg tablet 500 mg PO QID 07/25/23 01/15/24 Previous Rx's ?Medication ?Instructions ?Recorded sacubitril 24 mg-valsartan 26 mg 1 tab PO BID #60 tabs 03/28/23 tablet (Entresto) spironolactone 25 mg tablet 25 mg PO DAILY #30 tabs 03/28/23 (Aldactone) empagliflozin 10 mg tablet 10 mg PO DAILY #30 tabs 06/16/23 (Jardiance) magnesium oxide 400 mg (241.3 mg 400 mg PO DAILY 10 days #10 tabs 07/25/23 magnesium) tablet chlordiazepoxide HCl 10 mg capsule 10 mg PO TID 3 days #9 caps 08/16/23 amiodarone 200 mg tablet See Rx Instructions .Route 02/06/24 .COMPLEX #30 tabs apixaban 5 mg tablet (Eliquis) See Rx Instructions .Route 02/06/24 .COMPLEX #60 tabs digoxin 250 mcg (0.25 mg) tablet See Rx Instructions .Route 02/06/24 .COMPLEX #30 tabs folic acid 1 mg tablet See Rx Instructions .Route 02/06/24 .COMPLEX #30 tabs levothyroxine 125 mcg tablet See Rx Instructions .Route 02/06/24 .COMPLEX #30 tabs metoprolol tartrate 25 mg tablet See Rx Instructions .Route 02/06/24 .COMPLEX #60 tabs thiamine HCl (vitamin B1) 100 mg See Rx Instructions .Route 02/06/24 tablet .COMPLEX #30 tabs ferrous sulfate 324 mg (65 mg See Rx Instructions .Route 02/09/24 iron) tablet,delayed release .COMPLEX #30 ea naltrexone 50 mg tablet 50 mg PO DAILY alcohol disorder 02/09/24 #90 tabs pantoprazole 40 mg tablet,delayed See Rx Instructions .Route 02/09/24 release .COMPLEX #90 tabs sertraline 100 mg tablet See Rx Instructions .Route 02/09/24 .COMPLEX #90 tabs Allergies Allergy/AdvReac Type Severity Reaction Status Date / Time hydrochlorothiazide AdvReac Unknown Other Verified 01/15/24 14:31 [facility] Disclaimer: The information contained in this section may have been updated after the patient was seen, as this information can be updated by other users. 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 Testicular swelling, right Hypertension Tobacco abuse Alcohol abuse Tobacco use Paroxysmal atrial fibrillation Alcoholism Anxiety GERD (gastroesophageal reflux disease) Laceration of finger, left, complicated COPD (chronic obstructive pulmonary disease) Pulmonary hypertension Cirrhosis, alcoholic CHF (congestive heart failure) Hypertension Atrial fibrillation with rapid ventricular response Exposure to COVID-19 virus Surgical History History of discectomy History of cardiac radiofrequency ablation Family History Other Cancer Hypertension Stroke Substance abuse Social History Smoking Status: Current every day smoker tobacco type: cigarettes packs per day: 2 alcohol intake: current alcohol intake frequency: 3 or more drinks per day substance use type: denies use current occupational status: employed Travel in the last 8 weeks: None household members: significant other housing: house 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 current occupational exposures/hazards: No caffeine: Yes Have you lived/traveled outside [place] in past 30 days?: No Contact w/someone who lives/traveled outside US past 30 days?: No Exposure to someone with infectious disease in past 14 days?: No Do you have a fever (greater than 100.4 F or 38 C)?: No Have you tested positive for COVID-19: No Exposed to someone with COVID-19 in past 14 days?: No Do you have a sore throat?: No Do you have a cough?: No Do you have any weakness?: Yes Do you have any diarrhea?: No Are you experiencing any unusual bleeding?: No Do you have any muscle aches/pain?: No Do you have any abdominal pain?: No Are you experiencing loss of taste or smell?: No Other Medical History Have you received the Flu Vaccine for this season: No Have you received the Pneumonia Vaccine: No ROS Obtained: Yes All systems reviewed & no additional complaints except as documented Physical Exam General General appearance: alert and in distress Comment: Very ill-appearing Head Head exam: atraumatic and normocephalic Eye Eye exam: Present normal appearance, PERRL and EOMI ENT ENT exam: Present mucous membranes dry and normal external ear exam Neck Neck exam: Present normal inspection, full ROM and trachea midline; Absent tenderness Chest Chest inspection: Present normal inspection and symmetric chest wall rise; Absent tenderness Respiratory Respiratory exam: Present other (Rales noted bilaterally); Absent respiratory distress, wheezes or stridor Cardiovascular Cardiovascular exam: Present tachycardia and irregular rhythm Abdominal Exam Abdominal exam: Present soft and distention (Mild); Absent tenderness, guarding or rebound Extremities Exam Extremities exam: Present normal capillary refill and edema (Symmetric bilateral lower extremity edema with chronic skin changes of the bilateral lower extremities) Back Exam Back exam: Present normal inspection and full ROM; Absent tenderness Neurological Exam Neurological exam: Present alert, oriented X3 and CN II-XII intact; Absent motor sensory deficit Skin Skin exam: Present warm, dry and rash (Erythematous blanching papular rash scattered across the body, especially about the torso) Medical Decision Making Medical Records Medical records reviewed: Yes I reviewed the patient's medical records. Screening: Per USPSTF and CDC recommendations, given the prevalence of disease in our region, it is our hospital?s policy to screen for HIV and viral Hepatitis for all patients aged 18 and over and those with ongoing risk factors. Paul Inquiry Pt receiving controlled substance: No Vital Signs: 03/18/24 18:45 03/18/24 20:05 03/18/24 20:20 Temperature 97.8 F Temperature Source Oral Pulse Rate Pulse Rate [Right] 156 H Respiratory Rate 24 38 H Blood Pressure 103/73 L 85/67 L Blood Pressure [Right Arm] 75/54 L Blood Pressure Mean 83 Blood Pressure Mean [Right Arm] 61 Blood Pressure Source Blood Pressure Position 02 Sat by Pulse Oximetry 70 L Oxygen Delivery Method Room Air Oxygen Flow Rate (LPM) 03/18/24 21:20 03/18/24 21:26 03/18/24 21:38 Temperature Temperature Source Pulse Rate 139 H 153 H Pulse Rate [Right] Respiratory Rate 23 18 Blood Pressure 101/66 L 94/64 L 94/64 L Blood Pressure [Right Arm] Blood Pressure Mean Blood Pressure Mean [Right Arm] Blood Pressure Source Automatic Cuff Blood Pressure Position Sitting 02 Sat by Pulse Oximetry 99 100 Oxygen Delivery Method Nasal Cannula Oxygen Flow Rate (LPM) 3 03/18/24 21:41 03/18/24 21:41 03/18/24 21:46 Temperature Temperature Source Pulse Rate 149 H 139 H Pulse Rate [Right] Respiratory Rate 23 29 H Blood Pressure 87/64 L 87/64 L 90/69 L Blood Pressure [Right Arm] Blood Pressure Mean Blood Pressure Mean [Right Arm] Blood Pressure Source Blood Pressure Position 02 Sat by Pulse Oximetry 100 100 77 L Oxygen Delivery Method Nasal Cannula Oxygen Flow Rate (LPM) 3 03/18/24 22:00 Temperature Temperature Source Pulse Rate 69 Pulse Rate [Right] Respiratory Rate 16 Blood Pressure 115/94 H Blood Pressure [Right Arm] Blood Pressure Mean Blood Pressure Mean [Right Arm] Blood Pressure Source Blood Pressure Position 02 Sat by Pulse Oximetry 100 Oxygen Delivery Method Oxygen Flow Rate (LPM) Lab Data Lab results reviewed: Yes I reviewed the patient's lab results. Lab Results 03/18/24 18:50: WBC 6.0, RBC 3.25 L, Hgb 11.1 L, Hct 32.9 L, MCV 101.2 H, MCH 34.2 H, MCHC 33.7, RDW 20.0 H, Plt Count 136 L, MPV 10.7 H, Neut % (Auto) 52.3, Lymph % (Auto) 29.0, Woodward % (Auto) 12.0 H, Eos % (Auto) 4.2, Baso % (Auto) 2.2 H , Neut # (Auto) 3.1, Lymph # (Auto) 1.7, Woodward # (Auto) 0.7, Eos # (Auto) 0.3, Baso # (Auto) 0.1, ESR 17, PT 12.3, INR 1.11 H, APTT 29.6, D-Dimer 1.32 H, S odium 132 L, Potassium 3.5, Chloride 95 L, Carbon Dioxide 24, Anion Gap 16.5 H, BUN 23 H, Creatinine 1.70 H, Estimated Creat Clear 69, Estimated GFR 41 L, Est GFR ( Amer) 50 L, Glucose 86, Lactate 5.2 H, Calcium 7.3 L, Phosphorus 0.8 L, Magnesium 0.7 L, Total Bilirubin 1.0, AST 60 H, ALT 40, Alkaline Phosphatase 273 H, Troponin I 0.01, C-Reactive Protein 67.3 H, NT-Pro-B Natriuret Pep 3700 H, Total Protein 6.0 L, Albumin 3.0 L, Globulin 3.0, A lbumin/Globulin Ratio 1.0 L, Lipase 28, Procalcitonin 0.115, TSH 46.60 H, T hyroxine (T4) 4.2 L 03/18/24 18:55: VBG pH 7.37, VBG pCO2 39.6, VBG pO2 26.5 L, VBG HCO3 22.4 L, VBG Total CO2 23.6, VBG O2 Saturation 42.0 L, VBG Base Excess -2.9 L, VBG Lactic Acid 5.1 H 03/18/24 18:56: HCV Ab NATALIE w/Rflx PCR Qn Negative, HIV Ag/Ab Combo Qual Negative 03/18/24 22:01: Troponin I 0.01 03/18/24 18:50 03/18/24 18:50 Orders (Tests/Meds): ED MEDICATIONS Generic Name Dose Route Start Last Admin Trade Name Freq PRN Reason Stop Dose Admin Diazepam 10 mg 03/18/24 19:33 Diazepam 10mg/2ml Syringe IV 04/17/24 19:32 Q1HP PRN CIWA >16 Diazepam 5 mg 03/18/24 19:33 03/18/24 23:14 Diazepam 5mg Tablet PO 04/17/24 19:32 5 mg Q1HP PRN Administration CIWA Score 8-15 Diazepam 5 mg 03/18/24 19:33 Diazepam 5mg Tablet PO 04/17/24 19:32 Q6HP PRN CIWA 2-7 Folic Acid 1 mg 03/19/24 09:00 Folic Acid 1mg Tablet PO 04/18/24 08:59 DAILY RYAN Furosemide 40 mg 03/19/24 09:00 Furosemide 40mg/4ml Vial IV 04/18/24 08:59 DAILY RYAN Furosemide 20 mg 03/19/24 00:25 Furosemide 20 Mg/2 Ml Vial IV 03/19/24 00:26 ONCE ONE Milrinone Lactate 20 mg/ 100 mls @ 6.26 mls/hr 03/18/24 19:01 03/18/24 20:15 Sodium Chloride IV 04/17/24 19:00 0.2 mcg/kg/min .[id number] RYAN 6.26 mls/hr Administration Protocol 0.2 MCG/KG/MIN Vasopressin 40 unit/ Sodium 102 mls @ 1.53 mls/hr 03/18/24 19:02 03/18/24 19:17 Chloride IV 04/17/24 19:01 0.01 units/min .Q24H RYAN 1.53 mls/hr Administration Protocol 0.01 UNITS/MIN Potassium Phosphate 15 mmol/ 255 mls @ 63.75 mls/hr 03/18/24 22:25 03/18/24 23:33 Sodium Chloride IV 03/19/24 06:24 63.75 mls/hr Q4H RYAN Administration Piperacillin Sod/Tazobactam 50 mls @ 100 mls/hr 03/19/24 06:00 Sod 3.375 gm/ Sodium Chloride IV 03/29/24 05:59 Q8H RYAN Magnesium Sulfate 2 gm in 50 mls @ 50 mls/hr 03/18/24 22:52 03/18/24 23:11 Magnesium Sulfate 2gm/50ml Premix IV 03/18/24 23:51 50 mls/hr ONCE ONE Administration Levothyroxine Sodium 150 mcg 03/19/24 07:00 Levothyroxine 150mcg (0.15mg)Tab PO 04/18/24 06:59 DAILYDM RYAN Miscellaneous 1 each 03/18/24 19:15 03/18/24 20:13 Vancomycin Consult Request NOTAPPLIC 04/17/24 19:14 1 each [facility] Administration Miscellaneous 1 each 03/18/24 22:45 Vancomycin Consult Request NOTAPPLIC 04/17/24 22:44 [facility] Multivitamins 1 each 03/19/24 17:00 Multivitamin Tablet PO 04/18/24 16:59 1700 [facility] Sodium Chloride 10 ml 03/18/24 20:44 03/18/24 20:46 Sodium Chloride 0.9% 10ml Syr (Rad Only) IV 04/17/24 20:43 10 ml NEEDED PRN Administration Maintain IV Site Thiamine HCl 100 mg 03/19/24 09:00 Thiamine 100mg Tablet PO 03/21/24 09:01 DAILY RYAN Discontinued Medications Generic Name Dose Route Start Last Admin Trade Name Freq PRN Reason Stop Dose Admin Digoxin 500 mcg 03/18/24 21:44 03/18/24 21:49 Digoxin 0.25mg/Ml 2ml Ampul IV 03/18/24 21:45 500 mcg ONCE ONE Administration Hydrocortisone Sodium Succinate 100 mg 03/18/24 20:14 03/18/24 21:05 Hydrocortisone Sod Succinate 100mg Vial IV 03/18/24 20:15 100 mg ONCE ONE Administration Lactated Ringer's 500 mls @ 999 mls/hr 03/18/24 19:00 03/18/24 19:12 Lactated Ringer's 500ml IV 03/18/24 19:30 Not Given .Q31M ONE Piperacillin Sod/Tazobactam 50 mls @ 100 mls/hr 03/18/24 19:12 03/18/24 19:40 Sod 3.375 gm/ Sodium Chloride IV 03/18/24 19:41 100 mls/hr ONCE ONE Administration Magnesium Sulfate 2 gm/ Sodium 104 mls @ 100 mls/hr 03/18/24 19:33 03/18/24 19:43 Chloride IV 03/18/24 20:35 Not Given ONCE ONE Vancomycin HCl 2,500 mg/ 500 mls @ 250 mls/hr 03/18/24 19:45 03/18/24 21:06 Sodium Chloride IV 03/18/24 21:44 250 mls/hr ONCE ONE Administration Magnesium Sulfate 2 gm in 50 mls @ 50 mls/hr 03/18/24 19:42 03/18/24 20:05 Magnesium Sulfate 2gm/50ml Premix IV 03/18/24 20:41 50 mls/hr ONCE ONE Administration Lactated Ringer's 500 mls @ 999 mls/hr 03/18/24 20:53 03/18/24 21:06 Lactated Ringer's 500ml IV 03/18/24 21:23 999 mls/hr .Q31M ONE Administration Iopamidol 80 ml 03/18/24 20:44 03/18/24 20:46 Iopamidol-370 (76%);100ml Bottle IV 03/18/24 20:45 80 ml ONCE ONE Administration Levothyroxine Sodium 100 mcg 03/18/24 20:15 03/18/24 21:05 Levothyroxine Sodium 100 Mcg Vial IV 03/18/24 20:16 100 mcg ONCE ONE Administration Sodium Chloride 50 ml 03/18/24 20:44 03/18/24 20:46 0.9 % Sodium Chloride 50 Ml Vial IV 03/18/24 20:45 50 ml ONCE ONE Administration ORDERS Category Date Time Status CT abdomen pelvis w con Stat Cat Scan 03/18/24 20:[address] angio chest PE protocol Stat Cat Scan 03/18/24 20:[address] head/brain wo con Stat Cat Scan 03/18/24 20:13 Completed Consult Story Reader [CONS] Routine Cons 03/18/24 19:39 Active CXR --portable [XR chest portable] Stat Exams 03/18/24 18:57 Completed POCUS Point of Care (ER Only) Stat Exams 03/18/24 18:57 Completed BNP [NT Pro Brain Natriuretic Pep.] Stat Lab 03/18/24 18:50 Completed CRP [C-Reactive Protein] Stat Lab 03/18/24 18:50 Completed Complete Blood Count Auto Diff Stat Lab 03/18/24 18:50 Completed Comprehensive Metabolic Panel Stat Lab 03/18/24 18:50 Completed D-Dimer Stat Lab 03/18/24 18:50 Completed ESR [Erythrocyte Sedimentation Rate] Stat Lab 03/18/24 18:50 Completed HIV Combo Stat Lab 03/18/24 18:56 Completed Hepatitis C Ab Qual. W/ RFX Stat Lab 03/18/24 18:56 Completed Lactic Acid Stat Lab 03/18/24 18:50 Completed Lipase Stat Lab 03/18/24 18:50 Completed MAG [Magnesium] Stat Lab 03/18/24 18:50 Completed PHOS [Phosphorous] Stat Lab 03/18/24 18:50 Completed PT INR [Prothrombin Time INR] Stat Lab 03/18/24 18:50 Completed PTT [Activated Partial Thrombo Time] Stat Lab 03/18/24 18:50 Completed Procalcitonin Stat Lab 03/18/24 18:50 Completed T4 (Thyroxine) Stat Lab 03/18/24 18:50 Completed TSH [Thyroid Stimulating Hormone] Stat Lab 03/18/24 18:50 Completed Trop I [Troponin I] Stat Lab 03/18/24 18:50 Completed Troponin I Q3H Lab 03/18/24 22:01 Completed Troponin I Q3H Lab 03/19/24 02:00 Ordered UA [Urinalysis and Microscopic] Stat Lab 03/18/24 23:50 Results UDS [Drug Screen,Urine] Stat Lab 03/18/24 23:50 Results Blood Culture Stat Micro 03/18/24 18:50 Received Urine Culture Stat Micro 03/18/24 23:50 Received VBG [Venous Blood Gas] Stat RT 03/18/24 18:55 Completed ECG Data Tracing #1: I reviewed this ECG and interpreted as documented below: Atrial fibrillation with rapid ventricular response with a ventricular rate of 152 bpm. No obvious STEMI. ECG initial impression date: 03/18/24 ECG initial impression time: 18:52 Medical Decision Narrative: In summary, this patient is a 59-year-old male presenting to the Emergency Department for evaluation of general illness. Differential diagnoses considered include but are not limited to alcohol abuse, alcohol withdrawal, acute heart failure, sepsis, septic shock, cardiogenic shock, myxedema coma. Ruling out the most morbid conditions drove assessment. It should be noted patient's history includes daily alcohol abuse, atrial fibrillation, cardiomyopathy with CHF which are not at goal therapy. This complicates all aspects of care by increasing patient's risk for morbidity. I reviewed patient's past medical records and noted admission at [facility] for about a month with concern for acute on chronic heart failure with an EF around 20%. He also had alcoholic hepatitis and toxic metabolic encephalopathy. He also had significant hypothyroidism noncompliant with treatment as an outpatient.. On exam, the patient is critically ill-appearing and in shock with hypotension. He has large wound on his back that is weeping. Initial blood pressures with systolics in the 60s to 70s. Heart rate in the 140s to 150s in A-fib with RVR on EKG. Patient appears grossly volume overloaded clinical exam, and is not been compliant with his anticoagulant. I called and had an interactive discussion with Dr. Harris with cardiology who recommended starting milrinone as well as vasopressin to try and get patient stabilized. These were initiated. I considered cardioversion, however given the patient has not been compliant with anticoagulation and arrives critically ill, I feel the risk would outweigh the benefit at this time. Workup included broad lab evaluation to evaluate for infectious, metabolic, cardiac causes. I also obtained chest x-ray and EKG. I independently interpreted chest x-ray prior to the radiologist read and noted no obvious acute large focal consolidation. Please see their read for final interpretation. Labs were obtained that demonstrated mild anemia with hemoglobin of 11.1, mildly elevated INR at 1.11 just at the upper limits of normal, elevated lactic acid of 5.1, mild hyponatremia at 132, mildly elevated anion gap and BUN, VENKATESH. Liver enzymes are improved, however. BNP is elevated as well as inflammatory markers. Patient presents with undifferentiated shock with a large pressure wound and acute heart failure. He has elevated lactic acid and inflammatory markers, which could be due to poor perfusion secondary to low cardiac output, but cannot exclude sepsis. Given this, he was given broad- spectrum IV antibiotics. I gave him a 500 cc bolus of IV fluids given hypotension and trial fluids and see if he improves, as he could be intravascularly depleted given his significant alcohol use and poor oral intake. He was found to have hypothyroidism as well in the setting of noncompliance with his home medications, so I did give him IV levothyroxine and IV hydrocortisone. He was found to have profound hypomagnesemia for which IV replacement was ordered as well as hypophosphatemia and hypocalcemia. I repleted thiamine and folate, and I also ordered CIWA protocol. Initial CIWA score is 4 not indicating concern for delirium tremens at this time. On reassessment, patient had some improvement after administration of milrinone gtt, vasopressin, and other interventions as above. Systolics improved from 50s to 60s to 80s to 90s. MAP improved from 50s to high 60s. His heart rate remains in the 140s to 150s. I called and had an interactive discussion with Dr. Harris again regarding these findings and he recommended 0.5 of digoxin, which was ordered. Given patient's critical illness with undifferentiated shock, cardiogenic versus septic, I did order scans of the head, chest, abdomen, and pelvis. CT scans demonstrate hepatic steatosis without other obvious acute concerning abnormality. I performed a bedside cardiac ultrasound which shows very low EF At this time, patient was deemed to be appropriate for admission. I had an interactive discussion with Dr. Harris who advises he feels comfortable managing the patient here with regards to his cardiac dysfunction, so I then called the hospitalist to is in agreement to admit the patient. He was admitted in fair condition. Procedures Limited Ultrasound Findings:: Limited cardiac ultrasound Indication: Shock Identified cardiac views: [-Cardiac parasternal long axis] [-Cardiac parasternal short axis] [-Cardiac apical four-chamber] [-Cardiac subxiphoid] Findings: [-Cardiac activity present -Gross wall motion abnormal -Pericardial effusion absent -Right heart strain absent] Impression: -Global hypokinesis with reduced EF Images were saved to permanent archive The study was technically adequate CPT: 92743 This study was performed by me, and I personally interpreted all images/videos. Based on my clinical judgement, these images were adequate and did not necessitate further imaging. Critical Care Critical Care Time Critical Care Time: Yes Attestation: On 03/18/24, the high probability of a clinically significant, sudden or life threatening deterioration of the following system(s) required my full and direct attention, intervention and personal management. The time I documented below is in addition to time spent performing reported procedures but includes the following listed in this critical care notation. Total Time Total Critical Care Time: 100
[2024-03-18 19:29] LABS: C-Reactive Protein 67.3 mg/L (0-4)
[2024-03-18 19:31] LABS: Lactic Acid 5.2 mmol/L (0.7-2.1)
[2024-03-18 19:32] LABS: D-Dimer 1.32 ug/mL (0.0-0.5); NT Pro Brain Natriuretic Pep. 3700 pg/mL (0-125); Phosphorous 0.8 mg/dl (2.5-4.5)
[2024-03-18 19:33] LABS: Magnesium 0.7 mg/dl (1.6-2.3)
[2024-03-18] MEDS: PIPERACILLIN/TAZO 3.375 GM in 0.9 % SODIUM CHLORIDE 50 ML IV (19:40)
[2024-03-18 19:44] LABS: Procalcitonin 0.115 ng/mL (0.0-2.0); T4 (Thyroxine) 4.2 ug/dl (5.53-11.0)
[2024-03-18 19:47] LABS: Erythrocyte Sedimentation Rate 17 mm/hr (0-20)
[2024-03-18 19:57] LABS: Troponin I 0.01 ng/ml (0.00-0.034)
[2024-03-18] MEDS: MAGNESIUM SULFATE IN WATER 2 GM/50 ML PIGGYBACK IV ×2 (20:05→23:11)
[2024-03-18 20:11] LABS: Hepatitis C Ab Qual. W/ RFX NEGATIVE (Negative)
[2024-03-18] MEDS: VANCOMYCIN CONSULT REQUEST 1 EACH NOTAPPLIC (20:13)
--- NOTE | 2024-03-18 20:13 | CT_ITS ---
PROCEDURE INFORMATION: Exam: CTA Chest With Contrast Exam date and time: 03/18/2024 8:45 PM Age: 59 years old Clinical indication: Pain; Chest pressure; Additional info: Shock, undifferentiated, elevated dimer TECHNIQUE: Imaging protocol: Computed tomographic angiography of the chest with contrast. Exam focused on the arteries. 3D rendering (Not supervised by radiologist): MIP and/or 3D reconstructed images were created by the technologist. Radiation optimization: All CT scans at this facility use at least one of these dose optimization techniques: automated exposure control; mA and/or kV adjustment per patient size (includes targeted exams where dose is matched to clinical indication); or iterative reconstruction. Contrast material: ISOVUE; Contrast volume: 80 ml; Contrast route: INTRAVENOUS (IV); COMPARISON: CT ANGIO CHEST PE PROTOCOL 07/24/2023 4:03 PM FINDINGS: Pulmonary arteries: No CT angiography evidence of pulmonary embolism. Aorta: Unremarkable. No aortic aneurysm. No aortic dissection. Lungs: Right upper lobe calcified nodule unchanged. Pleural spaces: Unremarkable. No pneumothorax. No pleural effusion. Heart: Unremarkable. No cardiomegaly. No pericardial effusion. Lymph nodes: Calcified granulomatous nodes located at the right paratracheal, subcarinal, and bilateral hilar stations. Liver: There is diffuse hypoattenuation of the liver compatible with moderate hepatic steatosis. Spleen: Multiple benign-appearing calcific densities of the spleen. Bones/joints: Bilateral healed rib fractures are unchanged from prior exam. Soft tissues: Unremarkable. IMPRESSION: No CT angiography evidence of pulmonary embolism.
--- NOTE | 2024-03-18 20:13 | CT_ITS ---
PROCEDURE INFORMATION: Exam: CT Abdomen And Pelvis With Contrast Exam date and time: 03/18/2024 8:45 PM Age: 59 years old Clinical indication: Abdominal pain; Additional info: Shock, undifferentiated TECHNIQUE: Imaging protocol: Computed tomography of the abdomen and pelvis with contrast. 3D rendering (Not supervised by radiologist): MIP and/or 3D reconstructed images were created by the technologist. Radiation optimization: All CT scans at this facility use at least one of these dose optimization techniques: automated exposure control; mA and/or kV adjustment per patient size (includes targeted exams where dose is matched to clinical indication); or iterative reconstruction. Contrast material: ISOVUE; Contrast volume: 80 ml; Contrast route: IV; COMPARISON: CT ABDOMEN PELVIS W CON 12/08/2023 5:29 PM FINDINGS: Lungs: Dependent bilateral lung base opacities favor atelectasis. Liver: Mild diffuse increased echotexture of the liver compatible with mild hepatic steatosis, which limits evaluation of intrahepatic pathology. Gallbladder and biliary ducts: Normal. No calcified stones. No ductal dilation. Pancreas: See Retroperitoneal space finding. Spleen: Multiple benign-appearing calcific densities of the spleen. Adrenal glands: Normal. No mass. Kidneys and ureters: Right renal Bosniak 1 cystic lesion that is homogeneous and fluid density (-9-20 HU), no septations or calcifications, having cabrera smooth and thin. Measurement is 1.2 cm. No follow-up recommended. Stomach and bowel: See Retroperitoneal space finding. Appendix: No evidence of appendicitis. Intraperitoneal space: Unremarkable. No free air. No significant fluid collection. Retroperitoneal space: Subtle inflammatory changes surround the pancreatic head predominantly at the retroperitoneal fat and may represent early pancreatitis/duodenitis. Vasculature: Moderate calcific atherosclerotic disease of the abdominal aorta without aneurysmal dilatation is present. Lymph nodes: Unremarkable. No enlarged lymph nodes. Urinary bladder: Unremarkable as visualized. Reproductive: Unremarkable as visualized. Bones/joints: Postsurgical changes of the right hip compatible with IM nail and cannulated screw fixation of a healed femoral neck fracture. Moderate loss of intervertebral disc space with degenerative changes at L4 through S1. Anterior wedging of L1 unchanged from prior exam. Soft tissues: See Bones/joints finding. IMPRESSION: 1. Mild diffuse increased echotexture of the liver compatible with mild hepatic steatosis, which limits evaluation of intrahepatic pathology. Back steatosis 2. Subtle inflammatory changes surround the pancreatic head predominantly at the retroperitoneal fat and may represent early pancreatitis/duodenitis. Laboratory values may further define. COMMENTS: Consistent with the [employer]'s Incidental Findings Committee white paper (J Am Shady Radiol 2018): Any incidental renal lesion less than 1 cm or classified as too small to characterize, or any incidental cystic renal lesion characterized as simple-appearing, is likely benign. No follow-up imaging is recommended for these lesions per consensus recommendations based on imaging criteria.
--- NOTE | 2024-03-18 20:13 | CT_ITS ---
PROCEDURE INFORMATION: Exam: CT Head Without Contrast Exam date and time: 03/18/2024 8:34 PM Age: 59 years old Clinical indication: Altered mental status/memory loss; Additional info: AMS, shock TECHNIQUE: Imaging protocol: Computed tomography of the head without contrast. Total images: 544 Radiation optimization: All CT scans at this facility use at least one of these dose optimization techniques: automated exposure control; mA and/or kV adjustment per patient size (includes targeted exams where dose is matched to clinical indication); or iterative reconstruction. COMPARISON: MR HEAD/BRAIN WO/W CON 10/28/2023 1:42 PM FINDINGS: Brain: No acute intracranial hemorrhage, midline shift, or mass. Mild to moderate cortical and cerebellar atrophy, greater than expected for patient age. Mild periventricular white matter hypodensity compatible with remote small vessel ischemic change. No territorial infarct. Basilar cisterns are preserved. Cerebral ventricles: No ventriculomegaly. Paranasal sinuses: Mild mucosal thickening base of the left maxillary sinus and scattered bilateral ethmoid air cells. No air-fluid levels. Mastoid air cells: Visualized mastoid air cells are well aerated. Bones: Unremarkable. No acute fracture. Soft tissues: Unremarkable. IMPRESSION: 1. No acute intracranial process. 2. Chronic intracranial findings. 3. Chronic paranasal sinus disease.
[2024-03-18] MEDS: MILRINONE LACTATE 20 MG in 0.9 % SODIUM CHLORIDE 80 ML 6.26 MG IV (20:15)
[2024-03-18] MEDS: 0.9 % SODIUM CHLORIDE 50 ML VIAL IV (20:46)
[2024-03-18] MEDS: IOPAMIDOL-370 (76%);100ML BOTTLE 80 ML IV (20:46)
[2024-03-18] MEDS: SODIUM CHLORIDE 0.9% 10ML SYR (RAD ONLY) 10 ML IV (20:46)
--- NOTE | 2024-03-18 21:01 | PC.NURSE ---
He refuses the glynn catheter.
[2024-03-18] MEDS: LEVOTHYROXINE SODIUM 100 MCG VIAL IV (21:05)
[2024-03-18] MEDS: HYDROCORTISONE SOD SUCCINATE 100MG VIAL 100 MG IV (21:05)
[2024-03-18] MEDS: RINGERS SOLUTION,LACTATED 500 ML 999 ML IV (21:06)
[2024-03-18] MEDS: VANCOMYCIN HCL 2,500 MG in 0.9 % SODIUM CHLORIDE 500 ML 250 MG IV (21:06)
--- NOTE | 2024-03-18 21:40 | PC.NURSE ---
Vasopressin increased to 0.02.
[2024-03-18 21:43] LABS: HIV Combo NEGATIVE (Negative)
[2024-03-18] MEDS: DIGOXIN 0.25MG/ML 2ML AMPUL 500 MCG IV (21:49)
--- NOTE | 2024-03-18 22:10 | PC.NURSE ---
Report called to HORTENCIA Feng.
[2024-03-18 22:31] LABS: Troponin I 0.01 ng/ml (0.00-0.034)
--- NOTE | 2024-03-18 22:41 | PC.NURSE ---
Addendum entered by Ping Brown RN 03/18/24 23:21: Pt stated he was unsure when he voided last. Stated he thinks around 1pm but couldve been later. Patient bladder scanned 120ml was highest volume found in bladder Original Note: Patrick paged to come in to mix potassium phos
[2024-03-18 22:50] LABS: Reflex Lactic Add Lactic Reflex
[2024-03-18] MEDS: diazePAM 5MG TABLET 5 MG PO (23:14)
[2024-03-18] MEDS: POTASSIUM PHOSPHATE 15 MMOL in 0.9 % SODIUM CHLORIDE 250 ML 63.75 MMOL IV (23:33)
[2024-03-18 23:43] LABS: Lactic Acid Follow Up (RFLX 1) 4.1 mmol/L (0.7-2.1)
[2024-03-19] VITALS (53 sets, daily range): BP systolic 102–139; BP diastolic 54–101; PULSE 43–162; RESP 15–32; TEMP 36.8–37.7; O2SAT 62–100; BMI 30.3
[2024-03-19 00:19] LABS: Appearance,Urine CLEAR (Clear); Blood, Urine TRACE-L (Negative); Color,Urine DARK YELLOW (Yellow); Glucose,Urine (UA) Negative (Negative); Ketones,Urine TRACE (Negative); Leukocyte Esterase,Urine Negative (Negative); Microscopic, Urine URINE MICROSCOPIC (MICROSCOPIC); Nitrate,Urine POSITIVE (Negative); PH,Urine 5.5 (5.0-8.5); Protein,Urine Negative (Negative)
--- NOTE | 2024-03-19 00:26 | P.HP_ITS ---
<Statement entered by Jorje Anderson MD - 03/24/24 10:30> Personally examined patient and agree with the plan of care as outlined by the COURT TRANSCRIBER. History of Present Illness *Admission Date: 03/18/24 *Reason for visit:: Wound problem *History of present illness: This is a 59-year-old male with a past medical history of alcohol abuse, atrial fibrillation, systolic heart failure with a EF of 20% as of December, GERD, hypothyroidism who presents emergency department for concerns for weeping coccyx wound. He was recently admitted to for a month for issues with his heart rate in December. He was discharged home and states since being at home he has not been taking his medicines. States that he been drinking heavily approximately 1/5 of alcohol a day. States the last 2 days he cut back on his use. Denies any chest pain or shortness of breath. States that he has come to the ER for treatment for his wound. States that it is weeping, also noticed lower extremity swelling that is making it difficult to walk. He also has not been taking his anticoagulation With EMS he was noted to be extremely ill hypotensive, tachycardic, with hypoxia on room air. Workup in the emergency room notable for cardiogenic shock systolic blood pressures in the 70s with heart rate in the 150s, A-fib. Noted to be grossly overloaded on exam. Dr. Harris was consulted with cardiology and recommends inotropic support with milrinone and vasopressin. Further lab evaluation notable for white blood cell count of 6.0. Stable H&H. D-dimer of 1.32 potassium 3.5, creatinine of 1.7, lactic of 5.2 proBNP of 3700 TSH of 46 phosphorus of 0.8, mag of 0.[address] imaging of chest abdomen pelvis negative acute Given his critical nature, he is admitted to the ICU. On admission heart rate is in 130s with systolic pressure improving into the low 100s with milrinone and vasopressin. Spoke with Dr. Harris and Dr. Anderson, prior to admission. [facility] Disclaimer: The information contained in this section may have been updated after the patient was seen, as this information can be updated by other users. 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 Testicular swelling, right Hypertension Tobacco abuse Alcohol abuse Tobacco use Paroxysmal atrial fibrillation Alcoholism Anxiety GERD (gastroesophageal reflux disease) Laceration of finger, left, complicated COPD (chronic obstructive pulmonary disease) Pulmonary hypertension Cirrhosis, alcoholic CHF (congestive heart failure) Hypertension Atrial fibrillation with rapid ventricular response Exposure to COVID-19 virus Surgical History History of discectomy History of cardiac radiofrequency ablation Family History Other Cancer Hypertension Stroke Substance abuse Social History Smoking Status: Current every day smoker tobacco type: cigarettes packs per day: 2 alcohol intake: current alcohol intake frequency: 3 or more drinks per day substance use type: denies use current occupational status: employed Travel in the last 8 weeks: None household members: significant other housing: house 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 current occupational exposures/hazards: No caffeine: Yes Have you lived/traveled outside [place] in past 30 days?: No Contact w/someone who lives/traveled outside US past 30 days?: No Exposure to someone with infectious disease in past 14 days?: No Do you have a fever (greater than 100.4 F or 38 C)?: No Have you tested positive for COVID-19: No Exposed to someone with COVID-19 in past 14 days?: No Do you have a sore throat?: No Do you have a cough?: No Do you have any weakness?: Yes Do you have any diarrhea?: No Are you experiencing any unusual bleeding?: No Do you have any muscle aches/pain?: No Do you have any abdominal pain?: No Are you experiencing loss of taste or smell?: No Other Medical History Have you received the Flu Vaccine for this season: No Have you received the Pneumonia Vaccine: No Review of Systems Review of Systems Review of systems:: pertinent systems reviewed and negative unless documented below Review of systems (narrative): Negative except for HPI Meds Home Medications and Allergies Home Medications ?Medication ?Instructions ?Recorded ?Confirmed ?Type sacubitril 24 mg-valsartan 26 mg 1 tab PO BID #60 tabs 03/28/23 01/15/24 Rx tablet (Entresto) spironolactone 25 mg tablet 25 mg PO DAILY #30 tabs 03/28/23 01/15/24 Rx (Aldactone) empagliflozin 10 mg tablet 10 mg PO DAILY #30 tabs 06/16/23 01/15/24 Rx (Jardiance) bumetanide 1 mg tablet 1 mg PO DAILY 07/25/23 01/15/24 History magnesium oxide 400 mg (241.3 mg 400 mg PO DAILY 10 days #10 tabs 07/25/23 01/15/24 Rx magnesium) tablet methocarbamol 500 mg tablet 500 mg PO QID 07/25/23 01/15/24 History chlordiazepoxide HCl 10 mg capsule 10 mg PO TID 3 days #9 caps 08/16/23 01/15/24 Rx amiodarone 200 mg tablet See Rx Instructions .Route 02/06/24 Rx .COMPLEX #30 tabs apixaban 5 mg tablet (Eliquis) See Rx Instructions .Route 02/06/24 Rx .COMPLEX #60 tabs digoxin 250 mcg (0.25 mg) tablet See Rx Instructions .Route 02/06/24 Rx .COMPLEX #30 tabs folic acid 1 mg tablet See Rx Instructions .Route 02/06/24 Rx .COMPLEX #30 tabs levothyroxine 125 mcg tablet See Rx Instructions .Route 02/06/24 Rx .COMPLEX #30 tabs metoprolol tartrate 25 mg tablet See Rx Instructions .Route 02/06/24 Rx .COMPLEX #60 tabs thiamine HCl (vitamin B1) 100 mg See Rx Instructions .Route 02/06/24 Rx tablet .COMPLEX #30 tabs ferrous sulfate 324 mg (65 mg See Rx Instructions .Route 02/09/24 Rx iron) tablet,delayed release .COMPLEX #30 ea naltrexone 50 mg tablet 50 mg PO DAILY alcohol disorder 02/09/24 Rx #90 tabs pantoprazole 40 mg tablet,delayed See Rx Instructions .Route 02/09/24 Rx release .COMPLEX #90 tabs sertraline 100 mg tablet See Rx Instructions .Route 02/09/24 Rx .COMPLEX #90 tabs New Prescriptions to Start Prescriptions: Allergies Allergy/AdvReac Type Severity Reaction Status Date / Time hydrochlorothiazide AdvReac Unknown Other Verified 01/15/24 14:31 Exam Data for Last 24 hours Vital signs and Labs for Last 24 Hours: Temp Pulse Resp BP Pulse Ox O2 Del Method O2 Flow Rate 98.5 F 148 H 24 105/81 L 93 L Nasal Cannula 3 03/18/24 22:31 03/18/24 23:00 03/18/24 23:00 03/18/24 23:00 03/18/24 23:00 03/19/24 00:01 03/19/24 00:01 Laboratory Results - last 24 hr 03/18/24 18:50: WBC 6.0, RBC 3.25 L, Hgb 11.1 L, Hct 32.9 L, MCV 101.2 H, MCH 34.2 H, MCHC 33.7, RDW 20.0 H, Plt Count 136 L, MPV 10.7 H, Neut % (Auto) 52.3, Lymph % (Auto) 29.0, [place] % (Auto) 12.0 H, Eos % (Auto) 4.2, Baso % (Auto) 2.2 H , Neut # (Auto) 3.1, Lymph # (Auto) 1.7, [place] # (Auto) 0.7, Eos # (Auto) 0.3, Baso # (Auto) 0.1, ESR 17, PT 12.3, INR 1.11 H, APTT 29.6, D-Dimer 1.32 H, Sodium 132 L, Potassium 3.5, Chloride 95 L, Carbon Dioxide 24, Anion Gap 16.5 H, BUN 23 H, Creatinine 1.70 H, Estimated Creat Clear 69, Estimated GFR 41 L, Est GFR ( Amer) 50 L, Glucose 86, Lactate 5.2 H, Calcium 7.3 L, Phosphorus 0.8 L, Magnesium 0.7 L, Total Bilirubin 1.0, AST 60 H, ALT 40, Alkaline Phosphatase 273 H, Troponin I 0.01, C-Reactive Protein 67.3 H, NT-Pro-B Natriuret Pep 3700 H, Total Protein 6.0 L, Albumin 3.0 L, Globulin 3.0, Albumin/Globulin Ratio 1.0 L, Lipase 28, Procalcitonin 0.115, TSH 46.60 H, Thyroxine (T4) 4.2 L 03/18/24 18:55: VBG pH 7.37, VBG pCO2 39.6, VBG pO2 26.5 L, VBG HCO3 22.4 L, VBG Total CO2 23.6, VBG O2 Saturation 42.0 L, VBG Base Excess -2.9 L, VBG Lactic Acid 5.1 H 03/18/24 18:56: HCV Ab NATALIE w/Rflx PCR Qn Negative, HIV Ag/Ab Combo Qual Negative 03/18/24 22:01: Troponin I 0.01 03/18/24 23:11: Lactate 4.1 H I & O for Last 24 hours: Intake & Output 03/16/24 03/17/24 03/18/24 03/19/24 23:59 23:59 23:59 23:59 Output Total 150 / 150 Balance -150 / -150 Weight 104.326 kg Constitutional Constitutional: no acute distress *Routine HEENT Exam Head: Present normocephalic Eye: Present EOMI and PERRL ENT: Present mucous membranes moist *Routine Neck Exam Neck: Present supple; Absent lymphadenopathy *Routine Respiratory Exam Respiratory: Present CTA bilaterally *Routine Cardiovascular Exam Cardiovascular: Present irregularly irregular Comments: +4 pitting edema bilateral lower extremity *Routine Abdominal Exam Abdominal: Present soft and normoactive bowel sounds; Absent tenderness *Routine Rectal Exam Rectal:: deferred *Routine Genitalia Exam Genitalia:: deferred *Routine Extremities Exam Extremities: Absent cyanosis, clubbing or edema *Routine Skin Exam Skin: Present warm and rash Comments: Fine rash all over body. Patient reports bedbugs at home. Known decubitus ulcer weeping *Routine Neurological Exam Neurological: Present alert and oriented X3 Assessment and Plan *Assessment and plan (1) Cardiogenic shock: Status: Acute Category: Medical Code(s): R57.0 - Cardiogenic shock (2) Acute on chronic systolic heart failure: Status: Acute Category: Medical Code(s): I50.23 - Acute on chronic systolic (congestive) heart failure (3) Atrial fibrillation with RVR: Status: Acute Category: Medical Code(s): I48.91 - Unspecified atrial fibrillation (4) Hypothyroidism: Status: Acute Category: Medical Code(s): E03.9 - Hypothyroidism, unspecified (5) Hypophosphatemia: Status: Acute Category: Medical Code(s): E83.39 - Other disorders of phosphorus metabolism (6) Hypomagnesemia: Status: Acute Category: Medical Code(s): E83.42 - Hypomagnesemia (7) Hypocalcemia: Status: Acute Category: Medical Code(s): E83.51 - Hypocalcemia (8) Alcohol withdrawal syndrome: Status: Acute Category: Medical Code(s): F10.939 - Alcohol use, unspecified with withdrawal, unspecified (9) Decubitus ulcer: Status: Acute Category: Medical Code(s): L89.90 - Pressure ulcer of unspecified site, unspecified stage Plan #Shock #Acute on chronic systolic heart failure #Atrial fibrillation with RVR Shock likely secondary to cardiogenic shock but does have acute cystitis. Cannot rule out sepsis as well does have decubitus ulcer as well. Blood cultures obtained. Vancomycin and Zosyn initiate Patient reports feeling cold. Also noted to have decreased urine output. Refusing Marsh catheter at this time. 120 mL in bladder on bladder scan. Lactic acid of 5.[address] Harris consulted, greatly appreciate the assistance. Continue milrinone and vasopressin for support-since starting these on admission, heart rate slowly downtrending as well as improving blood pressure with maps of 65 1 dose digoxin given per cardiology N.p.o. Repeat echocardiogram in a.m., last EF 20% Received stress dose steroids x 1, will continue if no improvement in blood pressure Will avoid cardioversion given noncompliance with anticoagulation Hold beta-blockers at this time Troponins negative # Decubitus ulcer Weeping wound noted. Patient does not appear overtly infected although will continue broad-spectrum antibiotic coverage #Acute cystitis Urinalysis with positive nitrate, bacteria, pyuria Continue broad-spectrum antibiotic coverage #Hypomagnesemia Receiving 4 g now given magnesium of 0.6 #Hypokalemia Replacing with K-Phos at this time #Hypocalcemia Repeat ionized calcium #Hypophosphatemia Phosphorus 0.6. Continue potassium phosphate #Alcohol abuse CIWA score with medication intervention if needed Continue daily thiamine #Rash Known bedbugs found on patient while in the emergency department Continue contact precautions #Hypothyroidism Likely secondary to inappropriate levothyroxine use in the setting of amiodarone dosing at home Patient has been noncompliant with either of these. CIWA 1 dose IV levothyroxine Will continue oral dosing in a.m. #Vancomycin Requires intensive moniotring for toxicity pharmacy consulted monitor renal function ad serum vanc level and adjust as appropriate
[2024-03-19 00:34] LABS: Amphetamine/Metha Screen,Urine Negative ng/ml (<1000); Bilirubin,Urine Negative (Negative)
[2024-03-19 00:35] LABS: Barbiturates Screen,Urine Negative ng/ml (<200)
[2024-03-19 00:36] LABS: Benzodiazepines Screen,Urine Negative ng/ml (<200); Cannabinoid Screen,Urine Negative ng/ml (<50)
[2024-03-19 00:37] LABS: Cocaine Screen,Urine Negative ng/ml (<300)
[2024-03-19 00:38] LABS: Methadone Screen,Urine Negative ng/ml (<300); Opiate Screen,Urine Negative ng/ml (<300)
[2024-03-19 00:39] LABS: Phencyclidine Screen,Urine Negative ng/ml (<25)
[2024-03-19 00:44] LABS: Bacteria,Urine 2+ /lpf; Mucus,Urine 1+ /lpf
[2024-03-19] MEDS: FUROSEMIDE 20 MG/2 ML VIAL IV (00:45)
[2024-03-19 01:15] LABS: Reflex Lactic (2 hrs) Add Lactic Reflex
[2024-03-19] MEDS: LORazepam 2MG/ML VIAL 1 MG IV ×4 (01:17→21:25)
[2024-03-19 02:27] LABS: Chloride 97 mmol/L (98-107); Sodium 127 mmol/L (136-145)
[2024-03-19 02:30] LABS: Blood Urea Nitrogen 21 mg/dl (9-20); Creatinine Clearance Estimated 78 mL/min (50-200); Estimated Glomerular Filt Rate 48 ml/min (>60); GFR (African American) 58 ML/MIN (>60); Potassium 3.5 mmoL/L (3.5-5.1)
[2024-03-19 02:31] LABS: Anion Gap 11.5 mEq/L (5-15); Calcium 6.6 mg/dl (8.4-10.2); Carbon Dioxide 22 mmol/L (22.0-30.0); Glucose 131 mg/dl (74-100); Lactic Acid Follow up (RFLX 2) 2.6 mmol/L (0.7-2.1); Magnesium 1.3 mg/dl (1.6-2.3); Phosphorous 2.1 mg/dl (2.5-4.5)
[2024-03-19 02:45] LABS: Troponin I < 0.01 ng/ml (0.00-0.034)
[2024-03-19] MEDS: CALCIUM GLUC IN NACL, ISO-OSM 1 GM/50 ML BAG IV ×2 (02:48→06:39)
[2024-03-19] MEDS: MAGNESIUM SULFATE IN WATER 2 GM/50 ML PIGGYBACK IV (03:29)
[2024-03-19] MEDS: METOPROLOL TARTRATE 5MG/5ML VIAL 5 MG IV ×3 (03:30→09:14)
[2024-03-19] MEDS: BUMETANIDE 1MG/4ML VIAL 2 MG IV ×3 (03:42→17:18)
[2024-03-19] MEDS: POTASSIUM PHOSPHATE 15 MMOL in 0.9 % SODIUM CHLORIDE 250 ML 63.75 MMOL IV (03:44)
[2024-03-19] MEDS: VANCOMYCIN CONSULT REQUEST 1 EACH NOTAPPLIC (03:53)
--- NOTE | 2024-03-19 05:12 | PC.NURSE ---
Since arriving to the floor the patient has been able to rest a little. He has not complained of SOB or chest pain, just muscle twitches from what he said is him detoxing. Patient was medicated per may and for agitation. Since that medication the patient has slept soundly and had no other complaints. Patient remains on Milidrone drip, but Vasopressin was stopped according to MAY. BP have remained stable. Kimberly was notified of the stopping of vasopressin and ordered Metoprolol to help with HR. HR this shift has ranged anywhere from 120-170. Provider and Cardiology aware of that. Patient electrolytes have been replaced all shift according to the provider. Patient still refuses a Cather but was able to use the urinal with no assistance during this shift. Patient did state that his housekeeper home told him he had bedbugs. ER decontaminated him and we on the floor have no seen any. Patient does have a rash all over his body and a weeping wound on his back, photos are in the chart. He is on 3L NC and sating appropriately patient has had no complaints.
[2024-03-19] MEDS: PIPERACILLIN/TAZO 3.375 GM in 0.9 % SODIUM CHLORIDE 50 ML IV ×3 (05:56→22:03)
[2024-03-19 06:04] LABS: Basophils % 0.9 % (0.1-2.0); Eosinophils % 0.3 % (0.1-12.0); Hemoglobin 10.1 g/dL (14.1-18.0); Lymphocytes # 0.3 K/mm3 (0.7-4.5); Lymphocytes % 10.4 % (10-50); Mean Corpuscular HGB Conc 33.7 g/dL (31.8-35.4); Mean Corpuscular Hemoglobin 34.1 pg (27.0-31.2); Mean Corpuscular Volume 101.4 fl (80-94); Mean Platelet Volume 10.9 fl (7.4-10.4); Monocytes # 0.1 K/mm3 (0.1-1.0); Monocytes % 3.4 % (1.7-9.3); Neutrophils # 2.8 K/mm3 (1.8-7.8); Neutrophils % 84.4 % (37.0-80.0); Platelet Count 116 K/mm3 (142-424); Red Blood Count 2.96 M/mm3 (4.60-6.20); White Blood Count 3.3 K/mm3 (4.8-10.8)
[2024-03-19 06:08] LABS: Lactic Acid 2.2 mmol/L (0.7-2.1)
[2024-03-19 06:09] LABS: Anion Gap 12.8 mEq/L (5-15); Blood Urea Nitrogen 21 mg/dl (9-20); Calcium 6.8 mg/dl (8.4-10.2); Carbon Dioxide 23 mmol/L (22.0-30.0); Chloride 98 mmol/L (98-107); Creatinine Clearance Estimated 78 mL/min (50-200); Estimated Glomerular Filt Rate 48 ml/min (>60); GFR (African American) 58 ML/MIN (>60); Glucose 125 mg/dl (74-100); Potassium 3.8 mmoL/L (3.5-5.1); Sodium 130 mmol/L (136-145)
[2024-03-19 06:25] LABS: Magnesium 1.7 mg/dl (1.6-2.3); Phosphorous 3.4 mg/dl (2.5-4.5)
--- NOTE | 2024-03-19 06:33 | EXP.EVENT.NO ---
Patient did well over the evening. On admission patient was initiated on vasopressin and milrinone. After speaking with cardiology, vasopressin weaned off and was able to tolerate metoprolol IV 5 mg x 2 with reduction in heart rate in the 1 teens/120s. Stable blood pressure with systolic in the 120s to 130s. Multiple electrolyte abnormalities on admission that have improved. Patient was also able to tolerate 2 mg Bumex with improvement in urine output. Urine output after 2 mg Bumex around 500 mls Patient has received 6 g of mag with improvement in mag level to 1.7 K-Phos replaced as well with improvement in phosphorus to 3.4 Calcium still low at 6.6 this morning. Received 1 calcium gluconate overnight, will order an additional 1 g now. Resting comfortably without distress. States that he is feeling improved this morning. Of note on further assessment, patient has significantly enlarged testicles secondary to peripheral volume overload.
--- NOTE | 2024-03-19 08:00 | CA_ITS ---
APPROVED REPORT EXAM: Comprehensive 2D, Doppler, and color-flow Echocardiogram Television Anchor: Jasmin Rondon RT(R) Ht: 6 ft 1 in Wt: 185lbs BSA: 2.08 BP: 125/79 mmHg Indications: cardiogenic shock, HF, CM, COPD, smoker, HTN, ETOH abuse, RBBB, PHTN, smoker, AFIB, hgb 11.1 L. AFIB with RVR. Patient has elevated HR. Limited echo performed to assess EF. Echo Enhancing Agent Indication: Endocardial border delineation Agent(s) / Amount(s) Used: Definity 2 cc M-Mode Dimensions RVDd 4.16 cm (0.9-2.6) LVDd 3.96 cm (3.5-5.7) LVDs 2.88 cm (3.5-5.7) IVSd 1.34 cm (0.6-1.1) PWd 1.03 cm (0.6-1.1) EF (Teich) 53.60% FS 27.30% EDV (Teich) 68.30 mL ESV (Teich) 31.70 mL Other Information Study Quality: Fair Conclusion This is a limited TTE to evaluate for biventricular systolic function in the setting of undifferentiated shock. Limited windows are obtained. The left ventricle is normal in size. There is increased LV wall thickness. There is normal LV systolic function. The septum is asynchronous. No regional wall motion abnormalities are noted. LVEF is 50-55%. The right ventricle is severely dilated. There is severe reduction in RV systolic function. Compared to prior study from 07/24/2023, the LV systolic function remains normal. The severe RV dysfunction is unchanged. Electronically signed by : Adenike Garcia MD 03/19/2024 23:43:11
--- NOTE | 2024-03-19 08:40 | EXP.PHA.CONS ---
Pharmacy Consult Date: 03/19/24 Time: 08:40 Referring provider: DR. ALEJANDRO Reason for Consult:: VANCOMYCIN DOSING Allergies Allergy/AdvReac Type Severity Reaction Status Date / Time hydrochlorothiazide AdvReac Unknown Other Verified 01/15/24 14:31 Home Medications ?Medication ?Instructions ?Recorded ?Confirmed ?Type sacubitril 24 mg-valsartan 26 mg 1 tab PO BID #60 tabs 03/28/23 01/15/24 Rx tablet (Entresto) spironolactone 25 mg tablet 25 mg PO DAILY #30 tabs 03/28/23 01/15/24 Rx (Aldactone) empagliflozin 10 mg tablet 10 mg PO DAILY #30 tabs 06/16/23 01/15/24 Rx (Jardiance) bumetanide 1 mg tablet 1 mg PO DAILY 07/25/23 01/15/24 History magnesium oxide 400 mg (241.3 mg 400 mg PO DAILY 10 days #10 tabs 07/25/23 01/15/24 Rx magnesium) tablet methocarbamol 500 mg tablet 500 mg PO QID 07/25/23 01/15/24 History chlordiazepoxide HCl 10 mg capsule 10 mg PO TID 3 days #9 caps 08/16/23 01/15/24 Rx amiodarone 200 mg tablet See Rx Instructions .Route 02/06/24 Rx .COMPLEX #30 tabs apixaban 5 mg tablet (Eliquis) See Rx Instructions .Route 02/06/24 Rx .COMPLEX #60 tabs digoxin 250 mcg (0.25 mg) tablet See Rx Instructions .Route 02/06/24 Rx .COMPLEX #30 tabs folic acid 1 mg tablet See Rx Instructions .Route 02/06/24 Rx .COMPLEX #30 tabs levothyroxine 125 mcg tablet See Rx Instructions .Route 02/06/24 Rx .COMPLEX #30 tabs metoprolol tartrate 25 mg tablet See Rx Instructions .Route 02/06/24 Rx .COMPLEX #60 tabs thiamine HCl (vitamin B1) 100 mg See Rx Instructions .Route 02/06/24 Rx tablet .COMPLEX #30 tabs ferrous sulfate 324 mg (65 mg See Rx Instructions .Route 02/09/24 Rx iron) tablet,delayed release .COMPLEX #30 ea naltrexone 50 mg tablet 50 mg PO DAILY alcohol disorder 02/09/24 Rx #90 tabs pantoprazole 40 mg tablet,delayed See Rx Instructions .Route 02/09/24 Rx release .COMPLEX #90 tabs sertraline 100 mg tablet See Rx Instructions .Route 02/09/24 Rx .COMPLEX #90 tabs New Prescriptions to Start Prescriptions: Height: 1.85 m Weight: 103.782 kg Laboratory Results:: Laboratory Results - last 24 hr 03/18/24 18:50: WBC 6.0, RBC 3.25 L, Hgb 11.1 L, Hct 32.9 L, MCV 101.2 H, MCH 34.2 H, MCHC 33.7, RDW 20.0 H, Plt Count 136 L, MPV 10.7 H, Neut % (Auto) 52.3, Lymph % (Auto) 29.0, [place] % (Auto) 12.0 H, Eos % (Auto) 4.2, Baso % (Auto) 2.2 H, Neut # (Auto) 3.1, Lymph # (Auto) 1.7, [place] # (Auto) 0.7, Eos # (Auto) 0.3, Baso # (Auto) 0.1, ESR 17, PT 12.3, INR 1.11 H, APTT 29.6, D-Dimer 1.32 H, Sodium 132 L, Potassium 3.5, Chloride 95 L, Carbon Dioxide 24, Anion Gap 16.5 H, BUN 23 H, Creatinine 1.70 H, Estimated Creat Clear 69, Estimated GFR 41 L, Est GFR ( Amer) 50 L, Glucose 86, Lactate 5.2 H, Calcium 7.3 L, Phosphorus 0.8 L, Magnesium 0.7 L, Total Bilirubin 1.0, AST 60 H, ALT 40, Alkaline Phosphatase 273 H, Troponin I 0.01, C-Reactive Protein 67.3 H, NT-Pro-B Natriuret Pep 3700 H, Total Protein 6.0 L, Albumin 3.0 L, Globulin 3.0, Albumin/Globulin Ratio 1.0 L, Lipase 28, Procalcitonin 0.115, TSH 46.60 H, Thyroxine (T4) 4.2 L 03/18/24 18:55: VBG pH 7.37, VBG pCO2 39.6, VBG pO2 26.5 L, VBG HCO3 22.4 L, VBG Total CO2 23.6, VBG O2 Saturation 42.0 L, VBG Base Excess -2.9 L, VBG Lactic Acid 5.1 H 03/18/24 18:56: HCV Ab NATALIE w/Rflx PCR Qn Negative, HIV Ag/Ab Combo Qual Negative 03/18/24 22:01: Troponin I 0.01 03/18/24 23:11: Lactate 4.1 H 03/18/24 23:50: Urine Color Dark yellow, Urine Appearance Clear, Urine pH 5.5, Ur Specific [place] 1.010, Urine Protein Negative, Urine Glucose (UA) Negative, Urine Ketones Trace, Urine Blood Trace-l, Urine Nitrate Positive A, Urine Bilirubin Negative, Urine Urobilinogen 2.0, Ur Leukocyte Esterase Negative, Urine RBC 10-20, Urine WBC 3-5, Ur Squamous Epith Cells 3-5, Urine Bacteria 2+, Hyaline Casts 10-20, Urine Mucus 1+, Urine Opiates Screen Negative, Urine Methadone Screen Negative, Ur Barbituates Screen Negative, Ur Phencyclidine Scrn Negative, Ur Amphetamines Screen Negative, U Benzodiazepines Scrn Negative, Urine Cocaine Screen Negative, U Marijuana (THC) Screen Negative 03/19/24 02:10: Sodium 127 L, Potassium 3.5, Chloride 97 L, Carbon Dioxide 22, Anion Gap 11.5, BUN 21 H, Creatinine 1.50 H, Estimated Creat Clear 78, Estimated GFR 48 L, Est GFR ( Amer) 58 L, Glucose 131 H D, Lactate 2.6 H, Calcium 6.6 L, Phosphorus 2.1 L D, Magnesium 1.3 L D, Troponin I < 0.01 03/19/24 05:31: WBC 3.3 L D, RBC 2.96 L, Hgb 10.1 L, Hct 30.0 L, MCV 101.4 H, MCH 34.1 H, MCHC 33.7, RDW 20.0 H, Plt Count 116 L, MPV 10.9 H, Neut % (Auto) 84.4 H, Lymph % (Auto) 10.4, [place] % (Auto) 3.4, Eos % (Auto) 0.3, Baso % (Auto) 0.9, Neut # (Auto) 2.8, Lymph # (Auto) 0.3 L, [place] # (Auto) 0.1, Eos # (Auto) 0.0, Baso # (Auto) 0.0, Sodium 130 L, Potassium 3.8, Chloride 98, Carbon Dioxide 23, Anion Gap 12.8, BUN 21 H, Creatinine 1.50 H, Estimated Creat Clear 78, Estimated GFR 48 L, Est GFR ( Amer) 58 L, Glucose 125 H, Lactate 2.2 H, Calcium 6.8 L, Phosphorus 3.4 D, Magnesium 1.7 D Medical History: Medical History (Updated 03/19/24 @ 00:39 by SHANE Angulo) Hydrocele Visual floaters Seizure HFrEF (heart failure with reduced ejection fraction) Right bundle branch block Abnormal electrocardiogram [ECG] [EKG] Sinus tachycardia Necrotic ulceration of fingers History of alcohol use Acute on chronic right heart failure Alcohol intoxication in active alcoholic 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 Testicular swelling, right Hypertension Tobacco abuse Alcohol abuse Tobacco use Paroxysmal atrial fibrillation Alcoholism Anxiety GERD (gastroesophageal reflux disease) Laceration of finger, left, complicated COPD (chronic obstructive pulmonary disease) Pulmonary hypertension Cirrhosis, alcoholic CHF (congestive heart failure) Hypertension Atrial fibrillation with rapid ventricular response Exposure to COVID-19 virus Assessment and Plan Assessment and plan all Dx Assessment and Plan for all problems:: Pharmacokinetic dosing service Objective: Patient: Floor: Age: 59 yo Serum creatinine: 1.50 mg/dL Height: 72.8 Inches Weight (kg): 103.8 Assessment: IBW (kg): 79.44 Dosing wt(kg): 103.8 Estimated Creatinine clearance (ml/min): 59.6 CRCL method: Cockcroft and Gault using ibw(default). Drug selected: Vancomycin Loading dose (mg): Vd (liters): 83.0 (factor used: 0.8 L/kg) Wyatt (hr-1): 0.054 Half life (hrs): 12.84 CLvanco=?? 4.482 L/hr Recommended dose: 1750 mg Interval: 18 hrs Infusion time (hrs): 2.0 Predicted peak (mcg/mL): 32.1 Predicted trough (mcg/mL): 13.53 Total body weight is being used for vancomycin dosing. Recommendations: Give Vancomycin 1750 mg q 18 hrs with an expected Cpeak of 32.1 mcg/ml and an expected Ctrough of 13.53 mcg/ml AUC 0-24 /JASVIR Data: JASVIR 0.5 mcg/mL:?? AUC/JASVIR:? 1041.2 JASVIR 1.0 mcg/mL:?? AUC/JASVIR:? 520.6 --------- JASVIR 1.5 mcg/mL:?? AUC/JASVIR:? 347.1 JASVIR 2.0 mcg/mL:?? AUC/JASVIR:? 260.3 Thank you for the consult, will continue to follow. -CONNIE BARRIENTOS, GUILLERMOD
--- NOTE | 2024-03-19 09:57 | HMH.PTWOUND ---
Rehab Inpt Wound Evaluation Rehab IP Wound Evaluation Start: 03/18/24 23:20 Freq: ONCE Status: Active Protocol: Document 03/19/24 09:49 HEATHER (Rec: 03/19/24 09:57 PHOMEI [id number]) Rehab PT Wound Assessment Subjective Subjective 59-year-old male with a past medical history of alcohol abuse, atrial fibrillation, systolic heart failure with a EF of 20% as of December, GERD, hypothyroidism who presents emergency department for concerns for weeping coccyx wound. He was recently admitted to for a month for issues with his heart rate in December. He was discharged home and states since being at home he has not been taking his medicines. States that he been drinking heavily approximately 1/5 of alcohol a day. He reports he is generally independent with all ambulation and ADLs without AD, lives alone, no MALLORY the home, just a long walk to get in the house. He presents with wound to his lower back upon admission and reports it has been present for 3-4 mos. Wound Lower Back Wound Type Stasis ulcer vs pressure injury Is This a Chronic Wound Yes Wound Staging Stage II Query Text:Stage I - Unbroken, red skin, no blanching. Stage II - Skin broken, superficial skin loss involving epidermis alone or also dermis. Partial loss of skin layers. Stage III - Pressure area involves epidermis, dermis and subcutaneous tissue, full thickness skin loss. Stage IV - Pressure area involves epidermis, subcutaneous tissue, bone and other supportive tissue. Full thickness skin loss with extensive destruction of underlying tissue and structures. Wound Length (cm) 8.0 Wound Width (cm) 10.0 Wound Depth (cm) 0.1 Wound Bed Appearance [place] Wound Margins Description Indistinct Surrounding Tissue Appearance [place] Edema Appearance Weeping Wound Drainage Description Serous Drainage Amount Large Drainage Odor No Odor Plan/Recommendation Comment Currently pt has no need for excisional debridement of any type. Wound is healthy in appearance and likely to be the result of fluid overload in the setting of significant heart failure combined with MASD and prolonged pressure. [facility] staff is treating the wounds appropriately at this time and following appropriate protocols for pressure relief . Thank you for involving the wound care team in the care of this patient. Eval Complexity Eval Charge Codes 69099 - High Complexity PHYSICIAN CERTIFICATION: I certify the specified therapy services for Alonso Richardson are required, authorized, and reviewed every 30 days.
[2024-03-19] MEDS: LEVOTHYROXINE 150MCG (0.15MG)TAB 150 MCG PO (10:28)
[2024-03-19] MEDS: FOLIC ACID 1MG TABLET 1 MG PO (10:28)
[2024-03-19] MEDS: THIAMINE 100MG TABLET 100 MG PO (10:28)
[2024-03-19] MEDS: ENOXAPARIN 120MG/0.8ML SYRINGE 105 MG SUBCUT ×2 (10:29→20:30)
[2024-03-19] MEDS: METOPROLOL TARTRATE 25MG TABLET 25 MG PO ×3 (10:42→22:03)
[2024-03-19] MEDS: DIGOXIN 0.125MG TABLET 125 MCG PO (10:43)
--- NOTE | 2024-03-19 11:44 | HMH.PHAINT1 ---
Pharmacy Intervention Comments: VERIFIED AND CONFIRMED MEDICATIONS WITH OUTPATIENT PHARMACY.
[2024-03-19] MEDS: MILRINONE LACTATE 20 MG in 0.9 % SODIUM CHLORIDE 80 ML 6.26 MG IV (11:54)
[2024-03-19] MEDS: DIGOXIN 0.25MG/ML 2ML AMPUL 125 MCG IV (12:13)
--- NOTE | 2024-03-19 14:16 | EXP.CARD.CON ---
History of Present Illness History of Present Illness Consult date: 03/19/24 Requesting physician: Jorje Anderson Chief complaint: wound to coccyx History of present illness: Hospitalist note: This is a 59-year-old male with a past medical history of alcohol abuse, atrial fibrillation, systolic heart failure with a EF of 20% as of December, GERD, hypothyroidism who presents emergency department for concerns for weeping coccyx wound. He was recently admitted to for an ejection fraction of 20% with alcoholic hepatitis and metabolic encephalopathy.. He was discharged home and states since being at home he has not been taking his medicines. States that he been drinking heavily approximately 1/5 of alcohol a day. States the last 2 days he cut back on his use. Denies any chest pain or shortness of breath. States that he has come to the ER for treatment for his wound. States that it is weeping, also noticed lower extremity swelling that is making it difficult to walk. He also has not been taking his anticoagulation With EMS he was noted to be extremely ill hypotensive, tachycardic, with hypoxia on room air. Workup in the emergency room notable for cardiogenic shock systolic blood pressures in the 70s with heart rate in the 150s, A-fib. Noted to be grossly overloaded on exam. Dr. Harris was consulted with cardiology and recommends inotropic support with milrinone and vasopressin. Further lab evaluation notable for white blood cell count of 6.0. Stable H&H. D-dimer of 1.32 potassium 3.5, creatinine of 1.7, lactic of 5.2 proBNP of 3700 TSH of 46 phosphorus of 0.8, mag of 0.[address] imaging of chest abdomen pelvis negative acute Given his critical nature, he is admitted to the ICU. On admission heart rate is in 130s with systolic pressure improving into the low 100s with milrinone and vasopressin. Spoke with Dr. Harris and Dr. Anderson, prior to admission. Cardiology evaluation: This is a 59-year-old white male with past medical history of alcohol abuse, paroxysmal atrial fibrillation and heart failure with reduced ejection fraction who is currently admitted to the hospital for septic versus cardiogenic shock. Patient has large wound to coccyx area and last known EF at was 20%. History of alcohol abuse/daily use. Patient was admitted to the hospital on milrinone and vasopressin. Blood pressure has improved and patient was weaned off of vasopressin. Patient remains in A-fib at a rate of 140 and is receiving digoxin 0.125 mcg daily and Lopressor 25 mg every 6 hours. Patient is being diuresed with Bumex 2 mg IV twice daily and is diuresing well. Echocardiogram is pending. [facility] Disclaimer: The information contained in this section may have been updated after the patient was seen, as this information can be updated by other users. 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 Testicular swelling, right Hypertension Tobacco abuse Alcohol abuse Tobacco use Paroxysmal atrial fibrillation Alcoholism Anxiety GERD (gastroesophageal reflux disease) Laceration of finger, left, complicated COPD (chronic obstructive pulmonary disease) Pulmonary hypertension Cirrhosis, alcoholic CHF (congestive heart failure) Hypertension Atrial fibrillation with rapid ventricular response Exposure to COVID-19 virus Surgical History History of discectomy History of cardiac radiofrequency ablation Family History Other Cancer Hypertension Stroke Substance abuse Social History Smoking Status: Current every day smoker tobacco type: cigarettes packs per day: 2 alcohol intake: current alcohol intake frequency: 3 or more drinks per day substance use type: denies use current occupational status: employed Travel in the last 8 weeks: None household members: significant other housing: house 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 current occupational exposures/hazards: No caffeine: Yes Have you lived/traveled outside [place] in past 30 days?: No Contact w/someone who lives/traveled outside US past 30 days?: No Exposure to someone with infectious disease in past 14 days?: No Do you have a fever (greater than 100.4 F or 38 C)?: No Have you tested positive for COVID-19: No Exposed to someone with COVID-19 in past 14 days?: No Do you have a sore throat?: No Do you have a cough?: No Do you have any weakness?: Yes Do you have any diarrhea?: No Are you experiencing any unusual bleeding?: No Do you have any muscle aches/pain?: No Do you have any abdominal pain?: No Are you experiencing loss of taste or smell?: No Review of Systems *Cardiovascular Cardiovascular: Denies chest pain and Reports dyspnea *Respiratory Respiratory: Reports dyspnea Exam Data for Last 24 hours Vital signs and Labs for Last 24 Hours: Temp Pulse Resp BP Pulse Ox O2 Del Method O2 Flow Rate 98.5 F 139 H 26 H 134/101 H 98 Nasal Cannula 3 03/19/24 13:00 03/19/24 14:01 03/19/24 14:01 03/19/24 14:01 03/19/24 14:01 03/19/24 14:00 03/19/24 14:00 Laboratory Results - last 24 hr 03/18/24 18:50: WBC 6.0, RBC 3.25 L, Hgb 11.1 L, Hct 32.9 L, MCV 101.2 H, MCH 34.2 H, MCHC 33.7, RDW 20.0 H, Plt Count 136 L, MPV 10.7 H, Neut % (Auto) 52.3, Lymph % (Auto) 29.0, [place] % (Auto) 12.0 H, Eos % (Auto) 4.2, Baso % (Auto) 2.2 H, Neut # (Auto) 3.1, Lymph # (Auto) 1.7, [place] # (Auto) 0.7, Eos # (Auto) 0.3, Baso # (Auto) 0.1, ESR 17, PT 12.3, INR 1.11 H, APTT 29.6, D-Dimer 1.32 H, Sodium 132 L, Potassium 3.5, Chloride 95 L, Carbon Dioxide 24, Anion Gap 16.5 H, BUN 23 H, Creatinine 1.70 H, Estimated Creat Clear 69, Estimated GFR 41 L, Est GFR ( Amer) 50 L, Glucose 86, Lactate 5.2 H, Calcium 7.3 L, Phosphorus 0.8 L, Magnesium 0.7 L, Total Bilirubin 1.0, AST 60 H, ALT 40, Alkaline Phosphatase 273 H, Troponin I 0.01, C-Reactive Protein 67.3 H, NT-Pro-B Natriuret Pep 3700 H, Total Protein 6.0 L, Albumin 3.0 L, Globulin 3.0, Albumin/Globulin Ratio 1.0 L, Lipase 28, Procalcitonin 0.115, TSH 46.60 H, Thyroxine (T4) 4.2 L 03/18/24 18:55: VBG pH 7.37, VBG pCO2 39.6, VBG pO2 26.5 L, VBG HCO3 22.4 L, VBG Total CO2 23.6, VBG O2 Saturation 42.0 L, VBG Base Excess -2.9 L, VBG Lactic Acid 5.1 H 03/18/24 18:56: HCV Ab NATALIE w/Rflx PCR Qn Negative, HIV Ag/Ab Combo Qual Negative 03/18/24 22:01: Troponin I 0.01 03/18/24 23:11: Lactate 4.1 H 03/18/24 23:50: Urine Color Dark yellow, Urine Appearance Clear, Urine pH 5.5, Ur Specific [place] 1.010, Urine Protein Negative, Urine Glucose (UA) Negative, Urine Ketones Trace, Urine Blood Trace-l, Urine Nitrate Positive A, Urine Bilirubin Negative, Urine Urobilinogen 2.0, Ur Leukocyte Esterase Negative, Urine RBC 10-20, Urine WBC 3-5, Ur Squamous Epith Cells 3-5, Urine Bacteria 2+, Hyaline Casts 10-20, Urine Mucus 1+, Urine Opiates Screen Negative, Urine Methadone Screen Negative, Ur Barbituates Screen Negative, Ur Phencyclidine Scrn Negative, Ur Amphetamines Screen Negative, U Benzodiazepines Scrn Negative, Urine Cocaine Screen Negative, U Marijuana (THC) Screen Negative 03/19/24 02:10: Sodium 127 L, Potassium 3.5, Chloride 97 L, Carbon Dioxide 22, Anion Gap 11.5, BUN 21 H, Creatinine 1.50 H, Estimated Creat Clear 78, Estimated GFR 48 L, Est GFR ( Amer) 58 L, Glucose 131 H D, Lactate 2.6 H, Calcium 6.6 L, Phosphorus 2.1 L D, Magnesium 1.3 L D, Troponin I < 0.01 03/19/24 05:31: WBC 3.3 L D, RBC 2.96 L, Hgb 10.1 L, Hct 30.0 L, MCV 101.4 H, MCH 34.1 H, MCHC 33.7, RDW 20.0 H, Plt Count 116 L, MPV 10.9 H, Neut % (Auto) 84.4 H, Lymph % (Auto) 10.4, [place] % (Auto) 3.4, Eos % (Auto) 0.3, Baso % (Auto) 0.9, Neut # (Auto) 2.8, Lymph # (Auto) 0.3 L, [place] # (Auto) 0.1, Eos # (Auto) 0.0, Baso # (Auto) 0.0, Sodium 130 L, Potassium 3.8, Chloride 98, Carbon Dioxide 23, Anion Gap 12.8, BUN 21 H, Creatinine 1.50 H, Estimated Creat Clear 78, Estimated GFR 48 L, Est GFR ( Amer) 58 L, Glucose 125 H, Lactate 2.2 H, Calcium 6.8 L, Phosphorus 3.4 D, Magnesium 1.7 D I & O for Last 24 hours: Intake & Output 03/16/24 03/17/24 03/18/24 03/19/24 23:59 23:59 23:59 23:59 Intake Total 1868.123 / 1868.123 Output Total 950 / 950 Balance 918.123 / 918.123 Weight 230 lb 228 lb 12.8 oz *Routine Respiratory Exam Respiratory: Present CTA bilaterally *Routine Cardiovascular Exam Comments: A-fib RVR 140 *Routine Extremities Exam Comments: rash noted Meds Home Medications and Allergies Home Medications ?Medication ?Instructions ?Recorded ?Confirmed ?Type amiodarone 200 mg tablet 200 mg PO DAILY 03/19/24 03/19/24 History apixaban 5 mg tablet (Eliquis) 5 mg PO BID 03/19/24 03/19/24 History digoxin 250 mcg (0.25 mg) tablet 250 mcg PO DAILY 03/19/24 03/19/24 History ferrous sulfate 324 mg (65 mg 324 mg PO DAILY 03/19/24 03/19/24 History iron) tablet,delayed release folic acid 1 mg tablet 1 mg PO DAILY 03/19/24 03/19/24 History levothyroxine 125 mcg tablet 125 mcg PO AM 03/19/24 03/19/24 History metoprolol tartrate 25 mg tablet 25 mg PO BID 03/19/24 03/19/24 History naltrexone 50 mg tablet 50 mg PO DAILY 03/19/24 03/19/24 History pantoprazole 40 mg tablet,delayed 40 mg PO AM 03/19/24 03/19/24 History release sertraline 100 mg tablet 100 mg PO PM 03/19/24 03/19/24 History thiamine HCl (vitamin B1) 100 mg 100 mg PO DAILY 03/19/24 03/19/24 History tablet New Prescriptions to Start Prescriptions: Allergies Allergy/AdvReac Type Severity Reaction Status Date / Time hydrochlorothiazide AdvReac Unknown Other Verified 01/15/24 14:31 Assessment and Plan *Assessment and plan (1) Acute on chronic systolic heart failure: Status: Acute Category: Medical Code(s): I50.23 - Acute on chronic systolic (congestive) heart failure (2) Decubitus ulcer: Status: Acute Category: Medical Code(s): L89.90 - Pressure ulcer of unspecified site, unspecified stage (3) Cardiogenic shock: Status: Acute Category: Medical Code(s): R57.0 - Cardiogenic shock (4) Atrial fibrillation with RVR: Status: Acute Category: Medical Code(s): I48.91 - Unspecified atrial fibrillation (5) CHF exacerbation: Status: Acute Category: Medical Code(s): I50.9 - Heart failure, unspecified Plan Acute cardiogenic shock versus septic shock Acute on chronic HFrEF-last known EF 20% at Has been weaned off of vasopressin Continue milrinone drip Continue digoxin 0.125 mcg p.o. daily Continue Lopressor 25 mg p.o. every 6 hours Patient is diuresing well continue Bumex 2 mg IV twice daily Per Dr. Harris will continue to allow beta-blockers to work and slowly reduced heart rate Continue Lovenox Echo pending Serial troponins negative Decubitus ulcer Acute cystitis Will defer to primary service CV summary 03/19/2024: Per Dr. Harris continue milrinone drip and start digoxin 0.125 mcg p.o. daily along with Lopressor 25 mg p.o. every 6 hours. Continue to diurese patient with Bumex 2 mg IV twice daily. Echocardiogram is pending. please consult Dr. Harris for any further concerns or orders.
[2024-03-19] MEDS: DEFINITY US ECHO CONTRAST 2ML INJ 2 MG IV (14:39)
--- NOTE | 2024-03-19 15:57 | PEERSUPPORT ---
Peer Support Note Patient Information Patient Information: DOS: 03/19/2024 ? Reason: ETOH/AUD ED Ps consult Pt in ICU ? Pt is setting up in bed, good attitude, open to talk and receptive to peer support. ? Pt introduced peer support to visitor at bedside, Alex is his neighbor who has been a longtime friend who takes care of him and his dog when he needs help. ? Pt says he is more comfortable today, than last night when presenting to ED. He is looking forward to eating dinner. Ps will follow up with patient periodically. 9:00 pm Pt is asleep. Ps discussed possible course of care through out weekend. Ps will follow up with patient offering recovery focused support.
[2024-03-19] MEDS: VANCOMYCIN/WATER FOR INJ (PEG) 1.75 GM/350 ML PIGGYBACK IV (17:19)
[2024-03-19] MEDS: MULTIVITAMIN TABLET 1 EACH PO (17:20)
--- NOTE | 2024-03-19 22:45 | PC.NURSE ---
He is A&Ox4. His speech is clear. He continues on CIWAs and seizure precautions. His last CIWA was 8. He has a slight tremor, and reports sensitivity to light and sounds. He states that the light bothers him more than the sounds. He has been weaned to RA. He reports having heat on back when asked about pain. He is being turned and repositioned q 2 hours. He was voiding per urinal; however, he has now spilled it on the floor twice and have since put on a male purewick in attempt to get an accurate output. Trace edema to BLE. He continues with scattered rash over whole body. Sinus tach on telemetry.
[2024-03-20] VITALS (69 sets, daily range): BP systolic 74–142; BP diastolic 47–105; PULSE 49–151; RESP 14–31; TEMP 36.6–37.1; O2SAT 62–99; BMI 30.5
[2024-03-20] MEDS: LORazepam 2MG/ML VIAL 1 MG IV ×3 (01:25→17:10)
[2024-03-20] MEDS: SODIUM CHLORIDE 0.9% 10ML VIAL 10 ML IV ×2 (01:25→21:06)
[2024-03-20] MEDS: MILRINONE LACTATE 20 MG in 0.9 % SODIUM CHLORIDE 80 ML 6.26 MG IV ×2 (02:24→15:00)
--- NOTE | 2024-03-20 03:04 | PC.NURSE ---
He is having visual and auditory hallucinations. He sees people in his room and a girl in the corner. His bed alarm is now set as he is trying to get out of bed. He states he is trying to get up to talk to the people in his room.
[2024-03-20] MEDS: METOPROLOL TARTRATE 25MG TABLET 25 MG PO ×2 (04:29→11:17)
[2024-03-20] MEDS: PIPERACILLIN/TAZO 3.375 GM in 0.9 % SODIUM CHLORIDE 50 ML IV ×3 (05:17→21:06)
[2024-03-20] MEDS: LEVOTHYROXINE 150MCG (0.15MG)TAB 150 MCG PO (06:01)
[2024-03-20] MEDS: BUMETANIDE 1MG/4ML VIAL 2 MG IV ×2 (08:28→15:41)
[2024-03-20] MEDS: DIGOXIN 0.125MG TABLET 125 MCG PO (08:28)
[2024-03-20] MEDS: FOLIC ACID 1MG TABLET 1 MG PO (08:28)
[2024-03-20] MEDS: THIAMINE 100MG TABLET 100 MG PO (08:28)
[2024-03-20] MEDS: ENOXAPARIN 120MG/0.8ML SYRINGE 105 MG SUBCUT ×2 (08:45→21:02)
[2024-03-20 09:05] LABS: Basophils # 0.1 K/mm3 (0-0.2); Basophils % 2.3 % (0.1-2.0); Eosinophils # 0.1 K/mm3 (0.0-0.4); Eosinophils % 2.7 % (0.1-12.0); Hematocrit 30.9 % (42.0-52.0); Hemoglobin 10.3 g/dL (14.1-18.0); Lymphocytes # 1.5 K/mm3 (0.7-4.5); Lymphocytes % 31.5 % (10-50); Mean Corpuscular HGB Conc 33.3 g/dL (31.8-35.4); Mean Corpuscular Hemoglobin 34.4 pg (27.0-31.2); Mean Corpuscular Volume 103.3 fl (80-94); Mean Platelet Volume 10.3 fl (7.4-10.4); Monocytes # 0.6 K/mm3 (0.1-1.0); Neutrophils # 2.4 K/mm3 (1.8-7.8); Neutrophils % 50.3 % (37.0-80.0); Platelet Count 190 K/mm3 (142-424); Red Blood Count 2.99 M/mm3 (4.60-6.20); Red Cell Distribution Width 19.8 % (11.5-17.5); White Blood Count 4.9 K/mm3 (4.8-10.8)
[2024-03-20] MEDS: NICOTINE 21MG/24HR PATCH 21 MG TD (09:11)
[2024-03-20] MEDS: PHENobarbital SOD 130MG/ML INJ 130 MG IV ×2 (09:11→20:04)
[2024-03-20 09:28] LABS: Alanine Aminotransferase 38 U/L (12-78); Alkaline Phosphatase 282 U/L (38-126); Aspartate Amino Transferase 68 U/L (17-59); Bilirubin,Total 0.9 mg/dl (0.2-1.3); Blood Urea Nitrogen 23 mg/dl (9-20); Calcium 7.6 mg/dl (8.4-10.2); Carbon Dioxide 28 mmol/L (22.0-30.0); Creatinine Clearance Estimated 78 mL/min (50-200); Estimated Glomerular Filt Rate 48 ml/min (>60); GFR (African American) 58 ML/MIN (>60); Glucose 77 mg/dl (74-100); Magnesium 1.2 mg/dl (1.6-2.3)
[2024-03-20 09:56] LABS: Albumin Level 2.8 g/dl (3.5-5.0); Albumin/Globulin Ratio 0.9 (1.1-1.8); Chloride 97 mmol/L (98-107); Globulin 3.2 g/dL (1.3-3.2); Sodium 132 mmol/L (136-145)
[2024-03-20 09:57] LABS: Anion Gap 10.5 mEq/L (5-15); Potassium 3.5 mmoL/L (3.5-5.1)
[2024-03-20] MEDS: METOPROLOL SUCCINATE XL 100MG TABLET 100 MG PO (13:34)
--- NOTE | 2024-03-20 15:53 | PC.NURSE ---
Pt has remained in bed this shift, pt is encouraged to turn every 2hours. pt is more confused this shift than previous dayshift. pt is noted to appear to be having a conversation, yet no one else is in the room. pt has also mentioned to staff about seeing someone pacing in his room. pt indicated at beginning of shift that lights and sounds hurt his head. pt confusion has gotten some better as the day has progressed, he is easily redirectable. pt frequently removes pulse oximeter from finger as well. pts phone, phone charge and wallet are in bags at bedside (r/t bedbugs being found on pt while in ER per report). pt phone will not charge with manager e[employer] that was brought with family, so important numbers (specified by pt) were written down and are lying on bedside table. pt call light and room phone are within reach. lung sounds are clear with scattered occasional rhonchi noted. pt last bm was 03/19.
[2024-03-20] MEDS: SERTRALINE 50MG TABLET 50 MG PO (17:10)
[2024-03-20] MEDS: MULTIVITAMIN TABLET 1 EACH PO (17:10)
[2024-03-20] MEDS: THIAMINE 100MG TABLET 250 MG PO (18:45)
--- NOTE | 2024-03-20 18:51 | P.PN_ITS ---
Subjective *Date: 03/20/24 *Time: 18:51 Interval history: Patient delirious, confused, agitated today likely from alcohol withdrawal. Ativan, Zyprexa as needed. Exam Data for Last 24 hours Vital signs and Labs for Last 24 Hours: Temp Pulse Resp BP Pulse Ox O2 Del Method O2 Flow Rate 97.9 F 111 H 18 109/78 L 97 Room Air 3 03/20/24 16:00 03/20/24 18:01 03/20/24 18:01 03/20/24 18:01 03/20/24 16:45 03/20/24 17:00 03/19/24 20:00 Laboratory Results - last 24 hr 03/20/24 08:30: WBC 4.9 D, RBC 2.99 L, Hgb 10.3 L, Hct 30.9 L, MCV 103.3 H, MCH 34.4 H, MCHC 33.3, RDW 19.8 H, Plt Count 190 D, MPV 10.3, Neut % (Auto) 50.3, Lymph % (Auto) 31.5, [place] % (Auto) 13.0 H, Eos % (Auto) 2.7, Baso % (Auto) 2.3 H , Neut # (Auto) 2.4, Lymph # (Auto) 1.5, [place] # (Auto) 0.6, Eos # (Auto) 0.1, Baso # (Auto) 0.1, Sodium 132 L, Potassium 3.5, Chloride 97 L, Carbon Dioxide 28, Anion Gap 10.5, BUN 23 H, Creatinine 1.50 H, Estimated Creat Clear 78, Estimated GFR 48 L, Est GFR ( Amer) 58 L, Glucose 77, Calcium 7.6 L, Magnesium 1.2 L D, Total Bilirubin 0.9, AST 68 H, ALT 38, Alkaline Phosphatase 282 H, Total Protein 6.0 L, Albumin 2.8 L, Globulin 3.2, Albumin/Globulin Ratio 0.9 L Temp Pulse Resp BP Pulse Ox O2 Del Method O2 Flow Rate 98.5 F 139 H 26 H 134/101 H 98 Nasal Cannula 3 03/19/24 13:00 03/19/24 14:01 03/19/24 14:01 03/19/24 14:01 03/19/24 14:01 03/19/24 14:00 03/19/24 14:00 Laboratory Results - last 24 hr 03/18/24 18:50: WBC 6.0, RBC 3.25 L, Hgb 11.1 L, Hct 32.9 L, MCV 101.2 H, MCH 34.2 H, MCHC 33.7, RDW 20.0 H, Plt Count 136 L, MPV 10.7 H, Neut % (Auto) 52.3, Lymph % (Auto) 29.0, [place] % (Auto) 12.0 H, Eos % (Auto) 4.2, Baso % (Auto) 2.2 H , Neut # (Auto) 3.1, Lymph # (Auto) 1.7, [place] # (Auto) 0.7, Eos # (Auto) 0.3, Baso # (Auto) 0.1, ESR 17, PT 12.3, INR 1.11 H, APTT 29.6, D-Dimer 1.32 H, Sodium 132 L, Potassium 3.5, Chloride 95 L, Carbon Dioxide 24, Anion Gap 16.5 H, BUN 23 H, Creatinine 1.70 H, Estimated Creat Clear 69, Estimated GFR 41 L, Est GFR ( Amer) 50 L, Glucose 86, Lactate 5.2 H, Calcium 7.3 L, Phosphorus 0.8 L, Magnesium 0.7 L, Total Bilirubin 1.0, AST 60 H, ALT 40, Alkaline Phosphatase 273 H, Troponin I 0.01, C-Reactive Protein 67.3 H, NT-Pro-B Natriuret Pep 3700 H, Total Protein 6.0 L, Albumin 3.0 L, Globulin 3.0, Albumin/Globulin Ratio 1.0 L, Lipase 28, Procalcitonin 0.115, TSH 46.60 H, Thyroxine (T4) 4.2 L 03/18/24 18:55: VBG pH 7.37, VBG pCO2 39.6, VBG pO2 26.5 L, VBG HCO3 22.4 L, VBG Total CO2 23.6, VBG O2 Saturation 42.0 L, VBG Base Excess -2.9 L, VBG Lactic Acid 5.1 H 03/18/24 18:56: HCV Ab NATALIE w/Rflx PCR Qn Negative, HIV Ag/Ab Combo Qual Negative 03/18/24 22:01: Troponin I 0.01 03/18/24 23:11: Lactate 4.1 H 03/18/24 23:50: Urine Color Dark yellow, Urine Appearance Clear, Urine pH 5.5, Ur Specific [place] 1.010, Urine Protein Negative, Urine Glucose (UA) Negative, Urine Ketones Trace, Urine Blood Trace-l, Urine Nitrate Positive A, Urine Bilirubin Negative, Urine Urobilinogen 2.0, Ur Leukocyte Esterase Negative, Urine RBC 10-20, Urine WBC 3-5, Ur Squamous Epith Cells 3-5, Urine Bacteria 2+, Hyaline Casts 10-20, Urine Mucus 1+, Urine Opiates Screen Negative, Urine Methadone Screen Negative, Ur Barbituates Screen Negative, Ur Phencyclidine Scrn Negative, Ur Amphetamines Screen Negative, U Benzodiazepines Scrn Negative, Urine Cocaine Screen Negative, U Marijuana (THC) Screen Negative 03/19/24 02:10: Sodium 127 L, Potassium 3.5, Chloride 97 L, Carbon Dioxide 22, Anion Gap 11.5, BUN 21 H, Creatinine 1.50 H, Estimated Creat Clear 78, Estimated GFR 48 L, Est GFR ( Amer) 58 L, Glucose 131 H D, Lactate 2.6 H, Calcium 6.6 L, Phosphorus 2.1 L D, Magnesium 1.3 L D, Troponin I < 0.01 03/19/24 05:31: WBC 3.3 L D, RBC 2.96 L, Hgb 10.1 L, Hct 30.0 L, MCV 101.4 H, MCH 34.1 H, MCHC 33.7, RDW 20.0 H, Plt Count 116 L, MPV 10.9 H, Neut % (Auto) 84.4 H, Lymph % (Auto) 10.4, Caroline % (Auto) 3.4, Eos % (Auto) 0.3, Baso % (Auto) 0.9, Neut # (Auto) 2.8, Lymph # (Auto) 0.3 L, [place] # (Auto) 0.1, Eos # (Auto) 0.0, Baso # (Auto) 0.0, Sodium 130 L, Potassium 3.8, Chloride 98, Carbon Dioxide 23, Anion Gap 12.8, BUN 21 H, Creatinine 1.50 H, Estimated Creat Clear 78, Estimated GFR 48 L, Est GFR ( Amer) 58 L, Glucose 125 H, Lactate 2.2 H, Calcium 6.8 L, Phosphorus 3.4 D, Magnesium 1.7 D I & O for Last 24 hours: Intake & Output 03/17/24 03/18/24 03/19/24 03/20/24 23:59 23:59 23:59 23:59 Intake Total 2709.944 / 2709.944 841.855 / 841.855 Output Total 1370 / 1370 1650 / 1650 Balance 1339.944 / 1339.944 -808.145 / -808.145 Weight 104.326 kg 103.782 kg 104.652 kg Intake & Output 03/16/24 03/17/24 03/18/24 03/19/24 23:59 23:59 23:59 23:59 Intake Total 1868.123 / 1868.123 Output Total 950 / 950 Balance 918.123 / 918.123 Weight 230 lb 228 lb 12.8 oz Microbiology Reports for the Last 24 Hours: Microbiology 03/19/24 15:10 Anus CRE Surveillance Culture - Final Negative 03/18/24 23:50 Urine,Catheterized Urine Culture - Final No growth. 03/18/24 18:50 Blood Blood Culture - Preliminary NO GROWTH AFTER 24 HOURS 03/18/24 18:50 Blood Blood Culture - Preliminary NO GROWTH AFTER 24 HOURS *Routine Respiratory Exam Respiratory: Present CTA bilaterally *Routine Cardiovascular Exam Comments: A-fib RVR 140 *Routine Extremities Exam Comments: rash noted Assessment and Plan *Assessment and plan (1) Cardiogenic shock: Status: Acute Category: Medical Code(s): R57.0 - Cardiogenic shock (2) Acute on chronic systolic heart failure: Status: Acute Category: Medical Code(s): I50.23 - Acute on chronic systolic (congestive) heart failure (3) Atrial fibrillation with RVR: Status: Acute Category: Medical Code(s): I48.91 - Unspecified atrial fibrillation (4) Hypothyroidism: Status: Acute Category: Medical Code(s): E03.9 - Hypothyroidism, unspecified (5) Hypophosphatemia: Status: Acute Category: Medical Code(s): E83.39 - Other disorders of phosphorus metabolism (6) Hypomagnesemia: Status: Acute Category: Medical Code(s): E83.42 - Hypomagnesemia (7) Hypocalcemia: Status: Acute Category: Medical Code(s): E83.51 - Hypocalcemia (8) Alcohol withdrawal syndrome: Status: Acute Category: Medical Code(s): F10.939 - Alcohol use, unspecified with withdrawal, unspecified (9) Decubitus ulcer: Status: Acute Category: Medical Code(s): L89.90 - Pressure ulcer of unspecified site, unspecified stage Plan # Cardiogenic #Acute on chronic diastolic heart failure #Atrial fibrillation with RVR ?Case discussed with Dr. Harris today. Continue milrinone, diuresis. ? Decreased milrinone to 0.125 mcg today. ? Continue IV Bumex 2 mg twice daily. ? ECHO shows preserved ejection fraction. ? Continue digoxin 125 mcg, switch to metoprolol succinate 100 mg daily. #Alcohol withdrawal ? Started phenobarbital 130 mg twice daily. Will aim to reduce to 65 mg based on response overnight. ? CIWA protocol, Ativan as needed. ? Ativan, Hiprex as needed for agitation. # Decubitus ulcer Weeping wound noted. Patient does not appear overtly infected although will continue broad-spectrum antibiotic coverage ? Continue Zosyn #Acute cystitis Urine culture did not show growth. #Hypomagnesemia #Hypokalemia #Hypophosphatemia ?Replating #Rash Known bedbugs found on patient while in the emergency department Continue contact precautions #Hypothyroidism Continue home levothyroxine 150 mcg. Repeat TFTs once more stable
[2024-03-20] MEDS: LORazepam 2MG/ML VIAL 2 MG IV ×2 (19:43→21:06)
[2024-03-20] MEDS: PANTOPRAZOLE 40MG TABLET 40 MG PO (20:04)
[2024-03-20] MEDS: DIGOXIN 0.25MG/ML 2ML AMPUL 250 MCG IV (23:12)
--- NOTE | 2024-03-20 23:50 | PC.NURSE ---
Pt dropping tp lower 60s on room air while asleep. Pt audibly snoring with apneic episodes. 2 L placed on pt. Current spo2 88-98%
[2024-03-21] VITALS (51 sets, daily range): BP systolic 76–158; BP diastolic 47–107; PULSE 65–140; RESP 14–26; TEMP 34.5–36.7; O2SAT 90–100; BMI 27.2
[2024-03-21] MEDS: PIPERACILLIN/TAZO 3.375 GM in 0.9 % SODIUM CHLORIDE 50 ML IV ×2 (06:30→14:36)
[2024-03-21] MEDS: LEVOTHYROXINE 150MCG (0.15MG)TAB 150 MCG PO (06:30)
--- NOTE | 2024-03-21 06:54 | PC.NURSE ---
Pt has rested well during shift. Pt has remained confused stating hallucinations while awake. Pt tachycardic during beginning of shift with HR in 140s/150s. MD made aware. 1 time dose of Digoxin ordered and administered to pt. HR currently 80-100. BBB on tele.
[2024-03-21] MEDS: BUMETANIDE 1MG/4ML VIAL 2 MG IV ×2 (10:22→16:23)
[2024-03-21] MEDS: FOLIC ACID 1MG TABLET 1 MG PO (10:22)
[2024-03-21] MEDS: DIGOXIN 0.125MG TABLET 125 MCG PO (10:22)
[2024-03-21] MEDS: METOPROLOL SUCCINATE XL 100MG TABLET 150 MG PO (10:23)
[2024-03-21] MEDS: NICOTINE 21MG/24HR PATCH 21 MG TD (10:23)
[2024-03-21 10:26] LABS: Basophils # 0.1 K/mm3 (0-0.2); Basophils % 3.4 % (0.1-2.0); Eosinophils # 0.2 K/mm3 (0.0-0.4); Eosinophils % 5.9 % (0.1-12.0); Hematocrit 31.1 % (42.0-52.0); Hemoglobin 10.4 g/dL (14.1-18.0); Lymphocytes # 1.3 K/mm3 (0.7-4.5); Mean Corpuscular HGB Conc 33.4 g/dL (31.8-35.4); Mean Corpuscular Hemoglobin 34.2 pg (27.0-31.2); Mean Corpuscular Volume 102.3 fl (80-94); Monocytes # 0.6 K/mm3 (0.1-1.0); Monocytes % 16.2 % (1.7-9.3); Neutrophils # 1.4 K/mm3 (1.8-7.8); Neutrophils % 38.9 % (37.0-80.0); Platelet Count 211 K/mm3 (142-424); Red Blood Count 3.04 M/mm3 (4.60-6.20); Red Cell Distribution Width 18.8 % (11.5-17.5); White Blood Count 3.6 K/mm3 (4.8-10.8)
[2024-03-21 10:51] LABS: Albumin Level 2.6 g/dl (3.5-5.0); Chloride 98 mmol/L (98-107); Potassium 3.4 mmoL/L (3.5-5.1); Sodium 132 mmol/L (136-145)
[2024-03-21 10:54] LABS: Alanine Aminotransferase 36 U/L (12-78); Albumin/Globulin Ratio 0.9 (1.1-1.8); Alkaline Phosphatase 284 U/L (38-126); Anion Gap 7.4 mEq/L (5-15); Aspartate Amino Transferase 86 U/L (17-59); Bilirubin,Total 0.6 mg/dl (0.2-1.3); Blood Urea Nitrogen 20 mg/dl (9-20); Calcium 7.6 mg/dl (8.4-10.2); Carbon Dioxide 30 mmol/L (22.0-30.0); Creatinine Clearance Estimated 75 mL/min (50-200); Estimated Glomerular Filt Rate 52 ml/min (>60); GFR (African American) 63 ML/MIN (>60); Glucose 73 mg/dl (74-100); Total Protein,Serum 5.6 g/dl (6.3-8.2)
[2024-03-21] MEDS: ENOXAPARIN 120MG/0.8ML SYRINGE 105 MG SUBCUT ×2 (10:55→21:15)
[2024-03-21 10:57] LABS: Magnesium 0.9 mg/dl (1.6-2.3)
[2024-03-21] MEDS: MAGNESIUM SULFATE IN WATER 2 GM/50 ML PIGGYBACK IV ×3 (11:31→13:30)
[2024-03-21] MEDS: MILRINONE LACTATE 20 MG in 0.9 % SODIUM CHLORIDE 80 ML 3.91 MG IV (11:32)
[2024-03-21 14:25] LABS: Free T4 (Free Thyroxine) 2.81 ng/dl (0.78-2.19)
--- NOTE | 2024-03-21 15:10 | EXP.PN ---
Subjective *Date: 03/21/24 *Time: 15:10 Interval history: Patient is drowsy this morning, continues to be confused and having hallucinations. Can someone have a conversation. No tremors this morning. Withdrawal likely contributing to tachycardia. Exam Data for Last 24 hours Vital signs and Labs for Last 24 Hours: Temp Pulse Resp BP Pulse Ox O2 Del Method O2 Flow Rate 96.8 F L 119 H 24 93/63 L 92 L Nasal Cannula 2 03/21/24 12:00 03/21/24 14:03/21/24 14:03/21/24 14:03/21/24 14:00 03/21/24 14:00 03/21/24 14:00 Laboratory Results - last 24 hr 03/21/24 09:45: WBC 3.6 L D, RBC 3.04 L, Hgb 10.4 L, Hct 31.1 L, MCV 102.3 H, MCH 34.2 H, MCHC 33.4, RDW 18.8 H, Plt Count 211, MPV 10.0, Neut % (Auto) 38.9, Lymph % (Auto) 35.0, [place] % (Auto) 16.2 H, Eos % (Auto) 5.9, Baso % (Auto) 3.4 H, Neut # (Auto) 1.4 L, Lymph # (Auto) 1.3, [place] # (Auto) 0.6, Eos # (Auto) 0.2, Baso # (Auto) 0.1, Sodium 132 L, Potassium 3.4 L, Chloride 98, Carbon Dioxide 30, Anion Gap 7.4, BUN 20, Creatinine 1.40 H, Estimated Creat Clear 75, Estimated GFR 52 L, Est GFR ( Amer) 63, Glucose 73 L, Calcium 7.6 L, Magnesium 0.9 L D, Total Bilirubin 0.6, AST 86 H D, ALT 36, Alkaline Phosphatase 284 H, Total Protein 5.6 L, Albumin 2.6 L, Globulin 3.0, Albumin/Globulin Ratio 0.9 L, TSH 34.50 H D, Free T4 2.81 H I & O for Last 24 hours: Intake & Output 03/18/24 03/19/24 03/20/24 03/21/24 23:59 23:59 23:59 23:59 Intake Total 2709.944 / 2709.944 1176.061 / 1176.061 898.567 / 898.567 Output Total 1370 / 1370 2049 / 2049 1350 / 1350 Balance 1339.944 / 1339.944 -873.939 / -873.939 -451.433 / -451.433 Weight 104.326 kg 103.782 kg 104.652 kg 93.213 kg Microbiology Reports for the Last 24 Hours: Microbiology 03/18/24 18:50 Blood Blood Culture - Preliminary NO GROWTH AFTER 48 HOURS 03/18/24 18:50 Blood Blood Culture - Preliminary NO GROWTH AFTER 48 HOURS Constitutional Constitutional: no acute distress *Routine HEENT Exam Head: Present normocephalic Eye: Present EOMI and PERRL ENT: Present mucous membranes moist *Routine Neck Exam Neck: Present supple; Absent lymphadenopathy *Routine Respiratory Exam Respiratory: Present CTA bilaterally *Routine Cardiovascular Exam Cardiovascular: Present RRR *Routine Abdominal Exam Abdominal: Present soft and normoactive bowel sounds; Absent tenderness *Routine Extremities Exam Extremities: Absent cyanosis, clubbing or edema Comments: Lower extremity pitting edema 2+. *Routine Skin Exam Skin: Present warm; Absent rash *Routine Neurological Exam Neurological: Present alert Assessment and Plan *Assessment and plan (1) Cardiogenic shock: Status: Acute Category: Medical Code(s): R57.0 - Cardiogenic shock (2) Acute on chronic systolic heart failure: Status: Acute Category: Medical Code(s): I50.23 - Acute on chronic systolic (congestive) heart failure (3) Atrial fibrillation with RVR: Status: Acute Category: Medical Code(s): I48.91 - Unspecified atrial fibrillation (4) Hypothyroidism: Status: Acute Category: Medical Code(s): E03.9 - Hypothyroidism, unspecified (5) Hypophosphatemia: Status: Acute Category: Medical Code(s): E83.39 - Other disorders of phosphorus metabolism (6) Hypomagnesemia: Status: Acute Category: Medical Code(s): E83.42 - Hypomagnesemia (7) Hypocalcemia: Status: Acute Category: Medical Code(s): E83.51 - Hypocalcemia (8) Alcohol withdrawal syndrome: Status: Acute Category: Medical Code(s): F10.939 - Alcohol use, unspecified with withdrawal, unspecified (9) Decubitus ulcer: Status: Acute Category: Medical Code(s): L89.90 - Pressure ulcer of unspecified site, unspecified stage Plan Alonso Richardson is a 59-year-old male who was admitted for cardiogenic shock, A-fib RVR, HFpEF exacerbation, alcohol withdrawal. #Cardiogenic shock #Acute on chronic diastolic heart failure #Atrial fibrillation with RVR ? Case discussed with Dr. Harris over the weekend. Will decrease milrinone to 0.125 mcg, and continue with rest of plan as below. ? Continue milrinone 0.125 mcg. ? Net -873 mL yesterday. Increase Bumex 2 mg to 3 times daily. ? ECHO shows preserved ejection fraction. ? Continue digoxin 125 mcg, increased metoprolol succinate to 150 mg daily. ? Heart rate around 110-120, but has concomitant alcohol withdrawal likely contributing. #Acute metabolic encephalopathy #Alcohol withdrawal ? Initially given phenobarbital 130 mg twice daily yesterday. Holding dose today as patient is quite drowsy. ? Continues to be confused, having hallucinations. No tremors as of this morning. Tachycardia up to 120 ? CIWA protocol, Ativan as needed. ? Ativan, Hiprex as needed for agitation. # Decubitus ulcer Weeping wound noted. Patient does not appear overtly infected although will continue broad-spectrum antibiotic coverage. Discontinue Zosyn today as no further signs of infection. # Abnormal UA Urine culture did not show growth. #Hypomagnesemia #Hypokalemia #Hypophosphatemia ? Repleting #Rash Known bedbugs found on patient while in the emergency department Continue contact precautions #Hypothyroidism Continue home levothyroxine 150 mcg. Repeat TFTs once more stable
[2024-03-21] MEDS: LORazepam 2MG/ML VIAL 2 MG IV (16:08)
[2024-03-21] MEDS: SERTRALINE 50MG TABLET 50 MG PO (16:27)
[2024-03-21] MEDS: MULTIVITAMIN TABLET 1 EACH PO (16:28)
--- NOTE | 2024-03-21 17:30 | PC.NURSE ---
Pt has remained in bed this shift. he has been altered for the majority of the shift. he knows his name and states the date is January 17, 2025. when asked where he is, pt begins to ramble in conversations. numerous times this shift pt has been noted to be talking in his room, but no one else is present. pt has been able to speak to a couple of people on the room phone this shift when they called. lung sounds are diminished with scattered rhonchi. bowel sounds are active in all quads. pt has had 2 bm this shift. pt is voiding light yellow urine via purwick. pt has been frequently removing pulse ox this shift. at start of shift pt temp was 94 rectally. laci paws were applied, pt was noted to remove the laci paws gown quite frequently. pt is able to be redirected but then removes the gown again shortly after staff leaves the room. at approx 1600 pt began to yell out at staff, becoming agitated, throwing legs over the side the bed, talking agressively to staff and to no one in particular in the room. pt received lorazepam at this time. pt was able to relax and was no longer attempting to climb out of the bed or screaming out at staff and in the room. pt is alert to self and easily conversant with staff
[2024-03-21] MEDS: PHENobarbital SOD 65MG/ML INJ 65 MG IV (21:15)
[2024-03-21] MEDS: PANTOPRAZOLE 40MG TABLET 40 MG PO (21:15)
[2024-03-21 23:59] LABS: POC Glucose,Bedside 94 (70-110)
[2024-03-22] VITALS (33 sets, daily range): BP systolic 88–142; BP diastolic 53–100; PULSE 57–108; RESP 12–21; TEMP 35.2–37.2; O2SAT 64–100
--- NOTE | 2024-03-22 | EXP.EVENT.NO ---
Problem; nursing last assessed patient at approximately 2030 tonight when he was going to go to sleep., Patient was at his baseline., Nurse saw that blood pressure was low went into see the patient. Was unable to get him to arouse., Last lorazepam more than 6 hours ago., Has not been receiving any phenobarbital. Was not having any signs of any alcohol withdrawal.. Noted negative CT for the done on the 6th . exam: Came in to see the patient, after reviewing the chart saying that he had a significantly dilated right ventricle but normal ejection fraction, patient also on Lovenox, Tried to stimulate the patient he would not awaken or open his eyes for me squeeze both of his lower legs he did complain then moved both of them like he wanted me to stop. Tried to open his eyes he almost was kind of fighting me as to keep them closed but on opening the eyes. When opening the eyelids the eyes were rolled back in the head on both eyes.. I continued to stimulate him I got him to be able to squeeze and open his hand on the left he was able to do some of that on the right but not near as well picking both arms up telling him to hold them and letting them drop left arm had some decreased lowering to the bed but the right hand and arm fell immediately plan. Patient going for CT scan with and without a head and neck, awaiting results patient continues at the same level of consciousness per phone call by nursing staff and CT angio lab 00:59: Received phone call from Dr. Sean Vasquez no large vessel occlusion found. No changes from previous MRI done a couple months ago.. The behavior the patient patient a little more easily arousable talking a little more but still acting very sedated. After cleaned up and settled into bed. Patient sleeping so deep oxygen saturations were drop. Nurse had to stimulate him and he is having signs of apnea/sleep apnea. Then oxygen saturations returned to 99% again. Have reviewed records trying to find a reason for the patient to be oversedated, there is nothing that comes to the forefront that could have caused this. This does not appear to be some kind of withdrawal symptom, and there are no signs of seizure. Will continue to monitor the patient, if he was to worsen.
[2024-03-22 00:01] LABS: VBG Base Excess 6.2 mmol/L (-2.4-2.3); VBG HCO3 30.1 mmol/L (23-30); VBG Oxygen Saturation 95.8 % (50-70); VBG PCO2 43.5 mmol/L (35-51); VBG PH 7.46 mmol/L (7.31-7.41); VBG PO2 80.2 mmol/L (28-40); VBG Total CO2 31.4 mmol/L (23-27)
--- NOTE | 2024-03-22 00:02 | CT_ITS ---
PROCEDURE INFORMATION: Exam: CT Head Without Contrast Exam date and time: 03/22/2024 12:06 AM Age: 59 years old Clinical indication: Stroke-like symptoms; Altered mental status/memory loss; Additional info: Stroke alert TECHNIQUE: Imaging protocol: Computed tomography of the head without contrast. Radiation optimization: All CT scans at this facility use at least one of these dose optimization techniques: automated exposure control; mA and/or kV adjustment per patient size (includes targeted exams where dose is matched to clinical indication); or iterative reconstruction. Other technique: STROKE PROTOCOL was implemented. COMPARISON: CT HEAD/BRAIN WO CON 03/18/2024 8:34 PM FINDINGS: Brain: Moderate generalized atrophy. No hemorrhage. Unremarkable white matter. No mass effect. Cerebral ventricles: No ventriculomegaly. Paranasal sinuses: Visualized sinuses are unremarkable. No fluid levels. Mastoid air cells: Visualized mastoid air cells are well aerated. Bones: Unremarkable. No acute fracture. Soft tissues: Unremarkable. IMPRESSION: No acute intracranial abnormality. ASSESSMENT: ASPECTS ([place] Stroke Program Early CT Score) is 10.
--- NOTE | 2024-03-22 00:03 | CT_ITS ---
PROCEDURE INFORMATION: Exam: CTA Head With Contrast, Arteriography Exam date and time: 03/22/2024 12:09 AM Age: 59 years old Clinical indication: Stroke-like symptoms; Altered mental status/memory loss TECHNIQUE: Imaging protocol: Computed tomographic angiography of the head with contrast. Exam focused on the arteries. 3D rendering (Not supervised by radiologist): MIP and/or 3D reconstructed images were created by the technologist. Radiation optimization: All CT scans at this facility use at least one of these dose optimization techniques: automated exposure control; mA and/or kV adjustment per patient size (includes targeted exams where dose is matched to clinical indication); or iterative reconstruction. Contrast material: ISOVUE; Contrast volume: 80 ml; Contrast route: INTRAVENOUS (IV); COMPARISON: MR ANGIO HEAD WO/W CON 10/28/2023 1:42 PM FINDINGS: ANTERIOR CIRCULATION: Right internal carotid artery: Intracranial segment is patent with no significant stenosis. No aneurysm. Right middle cerebral artery: No occlusion or significant stenosis. No aneurysm. Right anterior cerebral artery: No occlusion or significant stenosis. No aneurysm. Left internal carotid artery: Intracranial segment is patent with no significant stenosis. No aneurysm. Left middle cerebral artery: No occlusion or significant stenosis. No aneurysm. Left anterior cerebral artery: No occlusion or significant stenosis. No aneurysm. POSTERIOR CIRCULATION: Right vertebral artery: Hypoplastic right vertebral artery. Left vertebral artery: No occlusion or significant stenosis. No aneurysm. Basilar artery: No occlusion or significant stenosis. No aneurysm. Right posterior cerebral artery: No occlusion or significant stenosis. No aneurysm. Left posterior cerebral artery: No occlusion or significant stenosis. No aneurysm. Brain: No definite mass, mass effect, or midline shift. Cerebral ventricles: No ventriculomegaly. Bones/joints: Unremarkable. No acute fracture. Soft tissues: Unremarkable. IMPRESSION: No large vessel occlusion. THIS REPORT CONTAINS FINDINGS THAT MAY BE CRITICAL TO PATIENT CARE. The findings were verbally communicated via telephone conference with Felipe Landers at 12:50 AM EST on 03/22/2024. The findings were acknowledged and understood.
--- NOTE | 2024-03-22 00:03 | CT_ITS ---
PROCEDURE INFORMATION: Exam: CTA Neck With Contrast Exam date and time: 03/22/2024 12:09 AM Age: 59 years old Clinical indication: Stroke-like symptoms; Altered mental status/memory loss; Additional info: CVA TECHNIQUE: Imaging protocol: Computed tomographic angiography of the neck with contrast. Exam focused on the cervical segments of the vasculature. 3D rendering (Not supervised by radiologist): MIP and/or 3D reconstructed images were created by the technologist. Radiation optimization: All CT scans at this facility use at least one of these dose optimization techniques: automated exposure control; mA and/or kV adjustment per patient size (includes targeted exams where dose is matched to clinical indication); or iterative reconstruction. Contrast material: ISOVUE; Contrast volume: 80 ml; Contrast route: INTRAVENOUS (IV); COMPARISON: MR ANGIO NECK WO/W CON 10/28/2023 1:42 PM FINDINGS: Right common carotid artery: No stenosis. No dissection or occlusion. Right internal carotid artery: No stenosis of the extracranial segment. No dissection or occlusion. Right external carotid artery: No occlusion or stenosis of the origin. Left common carotid artery: No stenosis. No dissection or occlusion. Left internal carotid artery: No stenosis of the extracranial segment. No dissection or occlusion. Left external carotid artery: No occlusion or stenosis of the origin. Right vertebral artery: Hypoplastic. No stenosis. No dissection or occlusion. Left vertebral artery: No stenosis. No dissection or occlusion. Lymph nodes: Extensive heavily calcified isn't in the right paratracheal lymph node chain region. Left hilar calcified lymph nodes Soft tissues: Normal. No significant soft tissue swelling. Bones/joints: No acute fracture. Lungs: Large left lung parenchymal granuloma in the left upper lobe. IMPRESSION: No dissection, stenosis, occlusion is demonstrated in the carotid or vertebral systems. Incidental findings above. REFERENCES: NASCET CRITERIA. The degree of stenosis in the cervical segment of the internal carotid artery is based on NASCET criteria. Normal is no stenosis. Mild is less than 50% stenosis. Moderate is 50-69% stenosis. Severe is 70% to 99% stenosis. Total occlusion is no detectable patent lumen.
[2024-03-22 00:09] LABS: Hematocrit 28.7 % (42.0-52.0); Hemoglobin 9.7 g/dL (14.1-18.0); Lymphocytes % 34.6 % (10-50); Mean Corpuscular HGB Conc 33.8 g/dL (31.8-35.4); Mean Corpuscular Hemoglobin 34.2 pg (27.0-31.2); Mean Corpuscular Volume 101.1 fl (80-94); Mean Platelet Volume 9.3 fl (7.4-10.4); Neutrophils % 36.6 % (37.0-80.0); Platelet Count 207 K/mm3 (142-424); Red Blood Count 2.84 M/mm3 (4.60-6.20); Red Cell Distribution Width 18.8 % (11.5-17.5); White Blood Count 3.7 K/mm3 (4.8-10.8)
[2024-03-22 00:10] LABS: Basophils # 0.1 K/mm3 (0-0.2); Basophils % 3.5 % (0.1-2.0); Eosinophils # 0.3 K/mm3 (0.0-0.4); Eosinophils % 7.6 % (0.1-12.0); Lymphocytes # 1.3 K/mm3 (0.7-4.5); Monocytes # 0.6 K/mm3 (0.1-1.0); Monocytes % 17.2 % (1.7-9.3); Neutrophils # 1.3 K/mm3 (1.8-7.8)
[2024-03-22 00:13] LABS: Creatine Kinase 102 U/L (55-170)
[2024-03-22 00:21] LABS: Activated Partial Thrombo Time 35.3 seconds (22.8-30.6); INR 1.02 (0.9-1.1); Prothrombin Time 11.2 seconds (10.1-12.5)
[2024-03-22] MEDS: SODIUM CHLORIDE 0.9% 10ML SYR (RAD ONLY) 10 ML IV (00:24)
[2024-03-22] MEDS: 0.9 % SODIUM CHLORIDE 50 ML VIAL IV (00:24)
[2024-03-22] MEDS: IOPAMIDOL-370 (76%);100ML BOTTLE 80 ML IV (00:24)
[2024-03-22 00:27] LABS: Troponin I < 0.01 ng/ml (0.00-0.034)
[2024-03-22 00:29] LABS: Alanine Aminotransferase 37 U/L (12-78); Albumin Level 2.7 g/dl (3.5-5.0); Alkaline Phosphatase 304 U/L (38-126); Anion Gap 8.1 mEq/L (5-15); Aspartate Amino Transferase 91 U/L (17-59); Bilirubin,Total 0.4 mg/dl (0.2-1.3); Blood Urea Nitrogen 18 mg/dl (9-20); Calcium 7.9 mg/dl (8.4-10.2); Carbon Dioxide 32 mmol/L (22.0-30.0); Chloride 97 mmol/L (98-107); Creatinine Clearance Estimated 70 mL/min (50-200); Estimated Glomerular Filt Rate 48 ml/min (>60); GFR (African American) 58 ML/MIN (>60); Globulin 2.8 g/dL (1.3-3.2); Glucose 82 mg/dl (74-100); Potassium 3.1 mmoL/L (3.5-5.1); Sodium 134 mmol/L (136-145); Total Protein,Serum 5.5 g/dl (6.3-8.2)
[2024-03-22 00:43] LABS: CKMB Relative Index 1.2 U/L (0-4.0); Creatine Kinase MB 1.2 ng/ml (0.0-2.03)
--- NOTE | 2024-03-22 00:45 | PC.NURSE ---
Pt hypotensive w/ BP @ 76/47 at 2330. Pt was found to be very lethargic. Pt yelling out incomprehensibly with deep pain. Pupils equal and reactive but rolled back in head. Pt not following any kind of commands. Weakness in BUE. No facial droop noted. BP rechecked 90/58 after assessment. VSS at this time. 2034 Notified MD of pt condition. 234 MD at bedside assessing pt 2342 Stroke alert called 2346 FSBS 92 2348 IVs checked for patency. [address] Pt [address] back [address].
[2024-03-22] MEDS: LACTATED RINGERS 1000ML 500 ML 250 ML IV (02:16)
--- NOTE | 2024-03-22 02:27 | ECG_ITS ---
APPROVED REPORT Exam: Resting ECG HR:95 bpm ECG Measurements Heart Rate 95 AXES QRSd 153 QRS 71 QT 444 T 43 QTc 497 Conclusion ATRIAL FLUTTER/TACHYCARDIA WITH ABERRANT CONDUCTION OR VENTRICULAR PREMATURE COMPLEXES RIGHT BUNDLE BRANCH BLOCK [120+ ms QRS DURATION, UPRIGHT V1, 40+ ms S IN I/aVL/V4/V5/V6] ST DEPRESSION, CONSIDER SUBENDOCARDIAL INJURY [0.1+ mV ST DEPRESSION] ABNORMAL ECG UNCONFIRMED REPORT Electronically signed by : Sravan Wayne MD 03/23/2024 19:20:27
[2024-03-22 06:36] LABS: Basophils # 0.1 K/mm3 (0-0.2); Basophils % 3.4 % (0.1-2.0); Eosinophils # 0.2 K/mm3 (0.0-0.4); Eosinophils % 5.7 % (0.1-12.0); Hematocrit 30.4 % (42.0-52.0); Hemoglobin 10.1 g/dL (14.1-18.0); Lymphocytes # 1.4 K/mm3 (0.7-4.5); Lymphocytes % 39.4 % (10-50); Mean Corpuscular HGB Conc 33.2 g/dL (31.8-35.4); Mean Corpuscular Hemoglobin 34.6 pg (27.0-31.2); Mean Corpuscular Volume 104.1 fl (80-94); Mean Platelet Volume 9.8 fl (7.4-10.4); Monocytes # 0.5 K/mm3 (0.1-1.0); Monocytes % 14.7 % (1.7-9.3); Neutrophils # 1.3 K/mm3 (1.8-7.8); Platelet Count 237 K/mm3 (142-424); Red Blood Count 2.92 M/mm3 (4.60-6.20); White Blood Count 3.5 K/mm3 (4.8-10.8)
[2024-03-22 06:40] LABS: POC Glucose,Bedside 82 (70-110)
[2024-03-22 06:52] LABS: Alanine Aminotransferase 32 U/L (12-78); Albumin Level 2.5 g/dl (3.5-5.0); Albumin/Globulin Ratio 0.9 (1.1-1.8); Alkaline Phosphatase 253 U/L (38-126); Aspartate Amino Transferase 78 U/L (17-59); Bilirubin,Total 0.2 mg/dl (0.2-1.3); Blood Urea Nitrogen 17 mg/dl (9-20); Calcium 7.7 mg/dl (8.4-10.2); Carbon Dioxide 33 mmol/L (22.0-30.0); Chloride 97 mmol/L (98-107); Creatinine Clearance Estimated 75 mL/min (50-200); Estimated Glomerular Filt Rate 52 ml/min (>60); GFR (African American) 63 ML/MIN (>60); Globulin 2.7 g/dL (1.3-3.2); Glucose 80 mg/dl (74-100); Magnesium 1.7 mg/dl (1.6-2.3); Sodium 136 mmol/L (136-145); Total Protein,Serum 5.2 g/dl (6.3-8.2)
[2024-03-22 07:20] LABS: Chol/HDL Ratio 2.8 (1-3.5); Cholesterol 74 mg/dl (140-200); HDL Cholesterol 26 mg/dl (40-60); Triglycerides 75 mg/dl (30-150); VLDL Cholesterol 15 mg/dL (0-40)
[2024-03-22 07:29] LABS: Anion Gap 9.2 mEq/L (5-15); Potassium 3.2 mmoL/L (3.5-5.1)
[2024-03-22 07:31] LABS: Direct LDL Cholesterol 38.61 mg/dL (100-129)
[2024-03-22 09:24] LABS: Hemoglobin A1C 4.4 % (4.0-6.0)
[2024-03-22 09:35] LABS: Lactate Venous 0.9 mmol/L (0.4-2.0); VBG Base Excess 5.9 mmol/L (-2.4-2.3); VBG HCO3 31.1 mmol/L (23-30); VBG Oxygen Saturation 96.1 % (50-70); VBG PCO2 54.1 mmol/L (35-51); VBG PH 7.38 mmol/L (7.31-7.41); VBG PO2 85.6 mmol/L (28-40); VBG Total CO2 32.7 mmol/L (23-27)
[2024-03-22] MEDS: ENOXAPARIN 100MG/ML SYRINGE 95 MG SUBCUT ×2 (10:09→21:02)
[2024-03-22] MEDS: BUMETANIDE 1MG/4ML VIAL 2 MG IV ×2 (10:10→13:42)
[2024-03-22] MEDS: KCl 10mEq/100ml 100 ML 100 MEQ IV ×6 (10:44→15:50)
--- NOTE | 2024-03-22 11:11 | HMH.PTEV ---
Physical Therapy Evaluation Rehab PT IP Evaluation Start: 03/21/24 23:58 Freq: ONCE Status: Active Protocol: Document 03/22/24 11:03 HEATHER (Rec: 03/22/24 11:11 HEATHER [id number]) Subjective/History History History 59-year-old male with a past medical history of alcohol abuse, atrial fibrillation, systolic heart failure with a EF of 20% as of December, GERD, hypothyroidism who presents emergency department for concerns for weeping coccyx wound. He was recently admitted to for a month for issues with his heart rate in December. He was discharged home and states since being at home he has not been taking his medicines. States that he been drinking heavily approximately 1/5 of alcohol a day. He reports he is generally independent with all ambulation and ADLs without AD, lives alone, no MALLORY the home, just a long walk to get in the house. He presents with wound to his lower back upon admission and reports it has been present for 3-4 mos. Pt has suffered a decline in status over the last 1-2 days with possible stroke like symptoms. Subjective Subjective Pt presents somewhat sedated this am and is difficult to arouse. He does follow 1 step commands appropriately and does answer to his name, but speech is limited and soft this date. Rehab PT IP Eval Objective Appearance Patient Behavior Sedated,Asleep,Confused Patient Orientation Person Difficulty following instructions none Speech Pattern Garbled,Soft-Spoken Ambulation Patient Able to Ambulate No Balance Ability to Arise Able, uses arms to help Sitting Balance Steady, safe Standing Balance Unsteady Dynamic Sitting Balance Ability Fair Dynamic Standing Balance Ability Poor Transfers Bed Transfer Ability Maximum x 1 (75% assist) Chair Transfer Ability Maximum x 2 (75% assist) Sit to Stand Bed Transfer Ability Maximum x 2 (75% assist) Sit to Stand Chair Transfer Ability Maximum x 2 (75% assist) Rehab PT IP prob,goals,plan Problems Date of Evaluation: 03/22/24 PT IP Problems Bed Mobility,Transfers,Gait Rehab Potential Rehab Potential Fair Plan PT Intervention Plan Bed Mobility,Transfers,Gait, Therapeutic Exercise PT Plan Frequency Daily Duration LOS Discharge Goals Bed Transfer Ability Moderate x 1 (50% assist) Sit to Stand Chair Transfer Ability Moderate x 1 (50% assist) Discharge Plan PT Discharge Plan Currently pt is unable to follow commands completely due to his sleepy/sedated appearance. However he was able to maintain static sitting balance at EOB x ~4-5 minutes with CGA x 1. Currently he is most appropriate for rehab placement once medically stable for d/c. Skilled therapy is indicated to improve strength, improve transfers, improve balance, and improve ambulation ability in order to aid pt return to PLOF. Eval Complexity Eval Charge Codes 32225 - High Complexity PHYSICIAN CERTIFICATION: I certify the specified therapy services for Alonso Richardson are required, authorized, and reviewed every 30 days.
[2024-03-22 11:26] LABS: POC Glucose,Bedside 80 (70-110)
--- NOTE | 2024-03-22 14:02 | PEERSUPPORT ---
Peer Support Note Patient Information Patient Information: DOS: 03/22/2024 ? Reason: ETOH/AUD Ps follow up ? Pt is asleep, little engagement from pt. ? Pt is aware who peer support is and purpose of visit. No recovery is discussed only importance of taking medication and eating or drinking. ? Pt is able to drink water with the help of ps. ? Ps will follow up periodically, as well as bring requested chocolate milk. ? ? 2:00 PM ? Pt is sleeping, little to no interaction. ? Yecenia with lab is able to do bloodwork with little reaction from pt. ? Ps will continue to follow up periodically. 7:45PM Pt is sleeping, no interaction. Ps will follow up tomorrow.
[2024-03-22 14:48] LABS: Adenovirus,PCR Not Detected (NotDetected); Bordetella Pertussis Not Detected (NotDetected); Chlamydophila Pneumoniae, PCR Not Detected (NotDetected); Coronavirus 19, PCR Not Detected (NotDetected); Coronavirus 229E Not Detected (NotDetected); Coronavirus NL63 Not Detected (NotDetected); Coronavirus OC43 Not Detected (NotDetected); Coronovirus HKU1,PCR Not Detected (NotDetected); Human Metapneumovirus Not Detected (NotDetected); Influenza A, PCR Not Detected (NotDetected); Influenza AH1, 2009 Not Detected (NotDetected); Influenza AH1, PCR Not Detected (NotDetected); Influenza AH3,PCR Not Detected (NotDetected); Influenza B, PCR Not Detected (NotDetected); Mycoplasma Pneumoniae, PCR Not Detected (NotDetected); Parainfluenza 1, PCR Not Detected (NotDetected); Parainfluenza 2, PCR Not Detected (NotDetected); Parainfluenza 3, PCR Not Detected (NotDetected); Parainfluenza 4, PCR Not Detected (NotDetected); Respiratory Syncytial Virus Not Detected (NotDetected); Rhinovirus/Enterovirus Not Detected (NotDetected)
[2024-03-22 15:11] LABS: Ammonia < 9 umol/L (9-30)
--- NOTE | 2024-03-22 15:26 | P.PN_ITS ---
Subjective Subjective Date: 03/22/24 Time: 13:00 Principal diagnosis: shock Interval history: Pt obtunded, not eating or drinking anything, BP as low as 70s systolic overnight. Exam Data for Last 24 hours Vital signs and Labs for Last 24 Hours: Temp Pulse Resp BP Pulse Ox O2 Del Method O2 Flow Rate 98.9 F 90 20 94/64 L 99 Nasal Cannula 4 03/22/24 12:00 03/22/24 14:00 03/22/24 14:00 03/22/24 14:00 03/22/24 14:00 03/22/24 14:00 03/22/24 14:00 FiO2 50 03/21/24 15:40 Laboratory Results - last 24 hr 03/19/24 02:10: Ionized Calcium 4.0 L 03/21/24 23:52: POC Glucose 94 03/21/24 23:58: VBG pH 7.46 H, VBG pCO2 43.5, VBG pO2 80.2 H, VBG HCO3 30.1 H, VBG Total CO2 31.4 H, VBG O2 Saturation 95.8 H, VBG Base Excess 6.2 H, VBG Lactic Acid 1.0 03/22/24 00:00: WBC 3.7 L, RBC 2.84 L, Hgb 9.7 L, Hct 28.7 L, MCV 101.1 H, MCH 34.2 H, MCHC 33.8, RDW 18.8 H, Plt Count 207, MPV 9.3, Neut % (Auto) 36.6 L, Lymph % (Auto) 34.6, [place] % (Auto) 17.2 H, Eos % (Auto) 7.6, Baso % (Auto) 3.5 H , Neut # (Auto) 1.3 L, Lymph # (Auto) 1.3, [place] # (Auto) 0.6, Eos # (Auto) 0.3, Baso # (Auto) 0.1, PT 11.2, INR 1.02, APTT 35.3 H, Sodium 134 L, Potassium 3.1 L , Chloride 97 L, Carbon Dioxide 32 H, Anion Gap 8.1, BUN 18, Creatinine 1.50 H, Estimated Creat Clear 70, Estimated GFR 48 L, Est GFR ( Amer) 58 L, Glucose 82, Calcium 7.9 L, Total Bilirubin 0.4, AST 91 H, ALT 37, Alkaline Phosphatase 304 H, Total Creatine Kinase 102, CK-MB (CK-2) 1.2, CK-MB (CK-2) Rel Index 1.2, Troponin I < 0.01, Total Protein 5.5 L, Albumin 2.7 L, Globulin 2.8, Albumin/Globulin Ratio 1.0 L 03/22/24 05:44: WBC 3.5 L, RBC 2.92 L, Hgb 10.1 L, Hct 30.4 L, MCV 104.1 H, MCH 34.6 H, MCHC 33.2, RDW 19.0 H, Plt Count 237, MPV 9.8, Neut % (Auto) 36.0 L, Lymph % (Auto) 39.4, [place] % (Auto) 14.7 H, Eos % (Auto) 5.7, Baso % (Auto) 3.4 H , Neut # (Auto) 1.3 L, Lymph # (Auto) 1.4, [place] # (Auto) 0.5, Eos # (Auto) 0.2, Baso # (Auto) 0.1, Sodium 136, Potassium 3.2 L, Chloride 97 L, Carbon Dioxide 33 H, Anion Gap 9.2, BUN 17, Creatinine 1.40 H, Estimated Creat Clear 75, Estimated GFR 52 L, Est GFR ( Amer) 63, Glucose 80, Hemoglobin A1c 4.4, Calcium 7.7 L, Magnesium 1.7 D, Total Bilirubin 0.2, AST 78 H, ALT 32, Alkaline Phosphatase 253 H, Total Protein 5.2 L, Albumin 2.5 L, Globulin 2.7, Albumin/Globulin Ratio 0.9 L, Triglycerides 75, Cholesterol 74 L, LDL Cholesterol Direct 38.61 L, VLDL Cholesterol 15, HDL Cholesterol 26 L, Cholesterol/HDL Ratio 2.8 03/22/24 06:27: POC Glucose 82 03/22/24 09:22: VBG pH 7.38, VBG pCO2 54.1 H, VBG pO2 85.6 H, VBG HCO3 31.1 H, VBG Total CO2 32.7 H, VBG O2 Saturation 96.1 H, VBG Base Excess 5.9 H, VBG Lactic Acid 0.9 03/22/24 11:19: POC Glucose 80 03/22/24 14:30: Ammonia < 9 L I & O for Last 24 hours: Intake & Output 03/19/24 03/20/24 03/21/24 03/22/24 23:59 23:59 23:59 23:59 Intake Total 2709.944 / 2709.944 1176.061 / 1176.061 989.492 / 989.492 393.756 / 393.756 Output Total 1370 / 1370 2049 / 2049 2450 / 2450 900 / 900 Balance 1339.944 / 1339.944 -873.939 / -873.939 -1460.508 / -1460.508 -506.244 / -506.244 Weight 228 lb 12.8 oz 230 lb 11.49 oz 205 lb 7.886 oz Constitutional Constitutional: obtunded *Routine HEENT Exam Eye: Present PERRL *Routine Respiratory Exam Respiratory: Present CTA bilaterally; Absent accessory muscle use, wheezes or crackles *Routine Cardiovascular Exam Cardiovascular: Present RRR, Normal S1 and Normal S2; Absent murmur, gallop or rubs *Routine Abdominal Exam Abdominal: Present soft; Absent tenderness *Routine Extremities Exam Extremities: Present pulses intact; Absent cyanosis or edema *Routine Skin Exam Skin: Present intact; Absent erythema or wounds *Routine Neurological Exam Neurological: Present alert and oriented X3 Routine Psychiatric Exam Psychiatric: Present cooperative Progress Note: A&P Assessment and plan (1) Atrial fibrillation with RVR: Status: Acute (2) Hypothyroidism: Status: Acute (3) Hypophosphatemia: Status: Acute (4) Hypomagnesemia: Status: Acute (5) Hypocalcemia: Status: Acute (6) Alcohol withdrawal syndrome: Status: Acute (7) Decubitus ulcer: Status: Acute Assessment and Plan Assessment and Plan for All Diagnoses:: HFpEF - pt presented with reports of EF 20% at so was felt to be in cardiogenic shock and started on Milrinone and Bumex. - repeat ECHO here shows normal EF and BPs are consistently running low - will DC Milrinone and reduce Bumex PAF - remains in A-fib but is rate controlled - cont Metoprolol, Dig, Lovenox - if pt continues to refuse PO meds we may need IV cardizem but he's rate controlled now ETOH Withdrawal - per Hospitalist Sepsis? - presented hypotensive and tachycardic with nitrites in urine, possible pancreatitis on CT, and coccygeal wound - nml WBC, afebril - s/p antibiotics - per hospitalist AMS - due to ETOH? Phenobarb or Milrinone intolerance? - head CTA without acute process Bed bugs - precautions per protocol
[2024-03-22 17:00] LABS: POC Glucose,Bedside 93 (70-110)
--- NOTE | 2024-03-22 17:23 | PC.NURSE ---
VS stable, milrinone drip off per cardiology. Patient requiring 4LNC while sleeping. Patient able to follow commands by moving extremities and answering yes no questions but unable to swallow pills at this time. Turned q2, swelling noted bilateral extremities and scrotum. Patient diuresed 650 out.
[2024-03-22] MEDS: BUMETANIDE 1MG/4ML VIAL 1 MG IV (20:07)
[2024-03-22] MEDS: PANTOPRAZOLE 40MG TABLET 40 MG PO (20:07)
--- NOTE | 2024-03-22 22:23 | P.PN_ITS ---
Subjective *Date: 03/22/24 *Time: 22:34 Exam Data for Last 24 hours Vital signs and Labs for Last 24 Hours: Temp Pulse Resp BP Pulse Ox O2 Del Method O2 Flow Rate 97.8 F 81 21 141/98 H 100 Nasal Cannula 4 03/22/24 20:00 03/22/24 22:00 03/22/24 22:00 03/22/24 22:00 03/22/24 22:00 03/22/24 22:00 03/22/24 20:38 FiO2 50 03/21/24 15:40 Laboratory Results - last 24 hr 03/19/24 02:10: Ionized Calcium 4.0 L 03/21/24 23:52: POC Glucose 94 03/21/24 23:58: VBG pH 7.46 H, VBG pCO2 43.5, VBG pO2 80.2 H, VBG HCO3 30.1 H, VBG Total CO2 31.4 H, VBG O2 Saturation 95.8 H, VBG Base Excess 6.2 H, VBG Lactic Acid 1.0 03/22/24 00:00: WBC 3.7 L, RBC 2.84 L, Hgb 9.7 L, Hct 28.7 L, MCV 101.1 H, MCH 34.2 H, MCHC 33.8, RDW 18.8 H, Plt Count 207, MPV 9.3, Neut % (Auto) 36.6 L, Lymph % (Auto) 34.6, [place] % (Auto) 17.2 H, Eos % (Auto) 7.6, Baso % (Auto) 3.5 H , Neut # (Auto) 1.3 L, Lymph # (Auto) 1.3, [place] # (Auto) 0.6, Eos # (Auto) 0.3, Baso # (Auto) 0.1, PT 11.2, INR 1.02, APTT 35.3 H, Sodium 134 L, Potassium 3.1 L , Chloride 97 L, Carbon Dioxide 32 H, Anion Gap 8.1, BUN 18, Creatinine 1.50 H, Estimated Creat Clear 70, Estimated GFR 48 L, Est GFR ( Amer) 58 L, Glucose 82, Calcium 7.9 L, Total Bilirubin 0.4, AST 91 H, ALT 37, Alkaline Phosphatase 304 H, Total Creatine Kinase 102, CK-MB (CK-2) 1.2, CK-MB (CK-2) Rel Index 1.2, Troponin I < 0.01, Total Protein 5.5 L, Albumin 2.7 L, Globulin 2.8, Albumin/Globulin Ratio 1.0 L 03/22/24 05:44: WBC 3.5 L, RBC 2.92 L, Hgb 10.1 L, Hct 30.4 L, MCV 104.1 H, MCH 34.6 H, MCHC 33.2, RDW 19.0 H, Plt Count 237, MPV 9.8, Neut % (Auto) 36.0 L, Lymph % (Auto) 39.4, [place] % (Auto) 14.7 H, Eos % (Auto) 5.7, Baso % (Auto) 3.4 H , Neut # (Auto) 1.3 L, Lymph # (Auto) 1.4, [place] # (Auto) 0.5, Eos # (Auto) 0.2, Baso # (Auto) 0.1, Sodium 136, Potassium 3.2 L, Chloride 97 L, Carbon Dioxide 33 H, Anion Gap 9.2, BUN 17, Creatinine 1.40 H, Estimated Creat Clear 75, Estimated GFR 52 L, Est GFR ( Amer) 63, Glucose 80, Hemoglobin A1c 4.4, Calcium 7.7 L, Magnesium 1.7 D, Total Bilirubin 0.2, AST 78 H, ALT 32, Alkaline Phosphatase 253 H, Total Protein 5.2 L, Albumin 2.5 L, Globulin 2.7, Albumin/Globulin Ratio 0.9 L, Triglycerides 75, Cholesterol 74 L, LDL Cholesterol Direct 38.61 L, VLDL Cholesterol 15, HDL Cholesterol 26 L, Cholesterol/HDL Ratio 2.8 03/22/24 06:27: POC Glucose 82 03/22/24 09:22: VBG pH 7.38, VBG pCO2 54.1 H, VBG pO2 85.6 H, VBG HCO3 31.1 H, VBG Total CO2 32.7 H, VBG O2 Saturation 96.1 H, VBG Base Excess 5.9 H, VBG Lactic Acid 0.9 03/22/24 11:19: POC Glucose 80 03/22/24 14:21: Chlamy pneumoniae PCR Not detected, Adenovirus (PCR) Not detected, B. pertussis DNA (PCR) Not detected, Coronavirus OC43 (PCR) Not detected, Coronavirus HKU1 (PCR) Not detected, Coronavirus 229E (PCR) Not detected, SARS-CoV-2 (PCR) Not detected, Coronavirus NL63 (PCR) Not detected, Human Metapneumovir PCR Not detected, Influenza A (H1) PCR Not detected, Influ A (H1N1/09) PCR Not detected, Influenza A (H3) PCR Not detected, Influenza Type A (PCR) Not detected, Influenza Type B (PCR) Not detected, M. pneumoniae (PCR) Not detected, Parainfluenza 1 (PCR) Not detected, Parainfluenza 2 (PCR) Not detected, Parainfluenza 3 (PCR) Not detected, Parainfluenza 4 (PCR) Not detected, RSV (PCR) Not detected, Entero/Rhino (PCR) Not detected 03/22/24 14:30: Ammonia < 9 L 03/22/24 16:45: POC Glucose 93 I & O for Last 24 hours: Intake & Output 03/19/24 03/20/24 03/21/24 03/22/24 23:59 23:59 23:59 23:59 Intake Total 2709.944 / 2709.944 1176.061 / 1176.061 989.492 / 862.852 4359.075 / 1019.075 Output Total 1370 / 1370 2050 / 2050 2450 / 2450 1550 / 1550 Balance 1339.944 / 1339.944 -873.939 / -873.939 -1460.508 / -1460.508 -530.925 / -530.925 Weight 103.782 kg 104.652 kg 93.21 kg Microbiology Reports for the Last 24 Hours: Microbiology 03/18/24 18:50 Blood Blood Culture - Preliminary NO GROWTH AFTER 4 DAYS 03/18/24 18:50 Blood Blood Culture - Preliminary NO GROWTH AFTER 4 DAYS Constitutional Constitutional: no acute distress Comments: Very somnolent, but arousable but falls back asleep. *Routine HEENT Exam Eye: Present PERRL *Routine Respiratory Exam Respiratory: Present CTA bilaterally; Absent accessory muscle use, wheezes or crackles *Routine Cardiovascular Exam Cardiovascular: Present RRR, Normal S1 and Normal S2; Absent murmur, gallop or rubs *Routine Abdominal Exam Abdominal: Present soft; Absent tenderness *Routine Extremities Exam Extremities: Present pulses intact; Absent cyanosis or edema Comments: Bilateral lower extremity pitting edema 1+. *Routine Skin Exam Skin: Present intact; Absent erythema or wounds *Routine Neurological Exam Neurological: Present alert Routine Psychiatric Exam Psychiatric: Present cooperative Assessment and Plan *Assessment and plan (1) Cardiogenic shock: Status: Acute Category: Medical Code(s): R57.0 - Cardiogenic shock (2) Acute on chronic systolic heart failure: Status: Acute Category: Medical Code(s): I50.23 - Acute on chronic systolic (congestive) heart failure (3) Atrial fibrillation with RVR: Status: Acute Category: Medical Code(s): I48.91 - Unspecified atrial fibrillation (4) Hypothyroidism: Status: Acute Category: Medical Code(s): E03.9 - Hypothyroidism, unspecified (5) Hypophosphatemia: Status: Acute Category: Medical Code(s): E83.39 - Other disorders of phosphorus metabolism (6) Hypomagnesemia: Status: Acute Category: Medical Code(s): E83.42 - Hypomagnesemia (7) Hypocalcemia: Status: Acute Category: Medical Code(s): E83.51 - Hypocalcemia (8) Alcohol withdrawal syndrome: Status: Acute Category: Medical Code(s): F10.939 - Alcohol use, unspecified with withdrawal, unspecified (9) Decubitus ulcer: Status: Acute Category: Medical Code(s): L89.90 - Pressure ulcer of unspecified site, unspecified stage Plan Alonso Richardson is a 59-year-old male who was admitted for cardiogenic shock, A- fib RVR, HFpEF exacerbation, alcohol withdrawal. He admitted he had not been taking his medications for a while. #Cardiogenic shock #Atrial fibrillation with RVR #Acute HFpEF exacerbation ? Presented with A-fib RVR, hypotension suggesting cardiogenic shock. ? Case discussed with cardiology who is following, discontinued milrinone today. Decreased Bumex from 2 to 1 mg 3 times daily due to soft pressures overnight. ? Increased diuresis yesterday, net -1460 mL. Total net -1525 mL. ? ECHO shows preserved ejection fraction. ? Continue digoxin 125 mcg, metoprolol succinate 150 mg daily. Currently rate controlled. ? Transitioned to Eliquis 5 mg twice daily as no plans for intervention at this time. #Acute metabolic encephalopathy #Alcohol withdrawal ? Patient has been quite drowsy over the past 2 days, but arousable, somewhat answers questions, takes medications, and intermittently wants to eat. But falls back to sleep. He was not like this on admission. ? Might be from phenobarbital, discontinued this morning. No signs of withdrawal. ? Could also be from digoxin toxicity as this was started on admission. ? Follow-up digoxin level. ? TSH elevated to 46 on admission, however this was obtained during an acute and severe illness and thus unreliable. Free T4 in fact elevated. ? Other workup thus far unremarkable including VBG, ammonia, respiratory panel, CT head. No signs of infection or significant electrolyte abnormalities. ? CIWA protocol, Ativan as needed. ? Ativan, Hiprex as needed for agitation. #Hypothyroidism ? TSH initially elevated to 46, however this was obtained during an acute and severe illness and thus unreliable. Free T4 in fact elevated. ? Reduced levothyroxine to 100 mcg due to elevated free T4 today. # Decubitus ulcer - Weeping wound noted. Patient does not appear overtly infected although will continue broad-spectrum antibiotic coverage. Discontinue Zosyn today as no further signs of infection. ? Wound care following. # Abnormal UA ? Urine culture did not show growth. #Hypomagnesemia #Hypokalemia #Hypophosphatemia ? Repleting #Rash Known bedbugs found on patient while in the emergency department Continue contact precautions
[2024-03-22 23:27] LABS: POC Glucose,Bedside 107 (70-110)
[2024-03-23] VITALS (29 sets, daily range): BP systolic 103–143; BP diastolic 60–96; PULSE 68–90; RESP 12–21; TEMP 36.4–37.1; O2SAT 91–100; BMI 28.0
[2024-03-23 05:46] LABS: Vitamin B12 810 pg/mL (239-931)
[2024-03-23 05:46] LABS: Basophils # 0.1 K/mm3 (0-0.2); Basophils % 2.4 % (0.1-2.0); Eosinophils # 0.2 K/mm3 (0.0-0.4); Eosinophils % 6.3 % (0.1-12.0); Hematocrit 31.5 % (42.0-52.0); Hemoglobin 10.6 g/dL (14.1-18.0); Lymphocytes # 1.5 K/mm3 (0.7-4.5); Lymphocytes % 39.7 % (10-50); Mean Corpuscular HGB Conc 33.7 g/dL (31.8-35.4); Mean Corpuscular Hemoglobin 34.5 pg (27.0-31.2); Mean Corpuscular Volume 102.6 fl (80-94); Mean Platelet Volume 9.3 fl (7.4-10.4); Monocytes # 0.8 K/mm3 (0.1-1.0); Monocytes % 20.5 % (1.7-9.3); Neutrophils # 1.1 K/mm3 (1.8-7.8); Neutrophils % 29.5 % (37.0-80.0); Platelet Count 268 K/mm3 (142-424); Red Blood Count 3.07 M/mm3 (4.60-6.20); Red Cell Distribution Width 19.5 % (11.5-17.5); White Blood Count 3.8 K/mm3 (4.8-10.8)
[2024-03-23 05:47] LABS: Alanine Aminotransferase 36 U/L (12-78); Albumin Level 2.7 g/dl (3.5-5.0); Albumin/Globulin Ratio 0.9 (1.1-1.8); Alkaline Phosphatase 285 U/L (38-126); Anion Gap 9.5 mEq/L (5-15); Aspartate Amino Transferase 81 U/L (17-59); Bilirubin,Total 0.2 mg/dl (0.2-1.3); Blood Urea Nitrogen 14 mg/dl (9-20); Calcium 7.9 mg/dl (8.4-10.2); Carbon Dioxide 37 mmol/L (22.0-30.0); Chloride 95 mmol/L (98-107); Creatinine Clearance Estimated 90 mL/min (50-200); Estimated Glomerular Filt Rate 62 ml/min (>60); GFR (African American) 75 ML/MIN (>60); Globulin 2.9 g/dL (1.3-3.2); Glucose 85 mg/dl (74-100); Magnesium 1.2 mg/dl (1.6-2.3); Potassium 3.5 mmoL/L (3.5-5.1); Sodium 138 mmol/L (136-145); Total Protein,Serum 5.6 g/dl (6.3-8.2)
[2024-03-23 05:49] LABS: Folate 7.73 ng/mL
[2024-03-23 05:54] LABS: POC Glucose,Bedside 85 (70-110)
[2024-03-23 05:59] LABS: MANUAL DIFFERENTIAL MANUAL DIFFERENTIAL (MANUAL DIFF)
[2024-03-23] MEDS: SODIUM CHLORIDE 0.9% IV ×3 (06:20→21:21)
[2024-03-23] MEDS: THIAMINE HCL IV ×3 (06:20→21:21)
[2024-03-23 06:26] LABS: Eosinophils % 5 % (0-3); Lymphocytes % 44 % (10-50); Microcytosis 1+; Monocytes % 3 % (2-9); Neutrophils % 45 % (42-76); Platelet Estimate Normal; Stomatocytes 2+; Total Cells Counted 100
[2024-03-23] MEDS: MAGNESIUM SULFATE IN WATER 2 GM/50 ML PIGGYBACK IV ×3 (08:18→10:23)
[2024-03-23] MEDS: FOLIC ACID 1MG TABLET 1 MG PO (08:45)
[2024-03-23] MEDS: APIXABAN 5MG TABLET 5 MG PO ×2 (08:45→21:21)
[2024-03-23] MEDS: DIGOXIN 0.125MG TABLET 125 MCG PO (08:45)
[2024-03-23] MEDS: POTASSIUM CHLORIDE 20MEQ TAB 40 MEQ PO ×2 (08:46→11:33)
[2024-03-23] MEDS: BUMETANIDE 1MG/4ML VIAL 1 MG IV ×3 (08:46→21:21)
[2024-03-23] MEDS: METOPROLOL SUCCINATE XL 100MG TABLET 150 MG PO (08:46)
[2024-03-23] MEDS: NICOTINE 21MG/24HR PATCH 42 MG TD (09:49)
[2024-03-23 11:13] LABS: POC Glucose,Bedside 128 (70-110)
--- NOTE | 2024-03-23 12:41 | P.PN_ITS ---
Subjective Subjective Date: 03/23/24 Time: 09:30 Principal diagnosis: shock Interval history: BP much improved, pt A/O and taking his medications today Exam Data for Last 24 hours Vital signs and Labs for Last 24 Hours: Temp Pulse Resp BP Pulse Ox O2 Del Method O2 Flow Rate 97.6 F 88 18 103/76 L 98 Nasal Cannula 2 03/23/24 08:00 03/23/24 10:01 03/23/24 10:01 03/23/24 10:01 03/23/24 10:01 03/23/24 11:00 03/23/24 11:00 FiO2 50 03/23/24 00:00 Laboratory Results - last 24 hr 03/19/24 02:10: Ionized Calcium 4.0 L 03/22/24 14:21: Chlamy pneumoniae PCR Not detected, Adenovirus (PCR) Not detec [place], B. pertussis DNA (PCR) Not detected, Coronavirus OC43 (PCR) Not detected, Coronavirus HKU1 (PCR) Not detected, Coronavirus 229E (PCR) Not detected, SARS-CoV-2 (PCR) Not detected, Coronavirus NL63 (PCR) Not detected, Human Metapneumovir PCR Not detected, Influenza A (H1) PCR Not detected, Influ A (H1N1/09) PCR Not detected, Influenza A (H3) PCR Not detected, Influenza Type A (PCR) Not detected, Influenza Type B (PCR) Not detected, M. pneumoniae (PCR) Not detected, Parainfluenza 1 (PCR) Not detected, Parainfluenza 2 (PCR) Not detected, Parainfluenza 3 (PCR) Not detected, Parainfluenza 4 (PCR) Not detected, RSV (PCR) Not detected, Entero/Rhino (PCR) Not detected 03/22/24 14:30: Ammonia < 9 L 03/22/24 16:45: POC Glucose 93 03/22/24 23:19: POC Glucose 107 03/22/24 23:20: Vitamin B12 810, Folate 7.73 03/22/24 : Digoxin 1.20 03/23/24 05:25: WBC 3.8 L, RBC 3.07 L, Hgb 10.6 L, Hct 31.5 L, MCV 102.6 H, MCH 34.5 H, MCHC 33.7, RDW 19.5 H, Plt Count 268, MPV 9.3, Neut % (Auto) 29.5 L, Lymph % (Auto) 39.7, [place] % (Auto) 20.5 H D, Eos % (Auto) 6.3, Baso % (Auto) 2.4 H, Neut # (Auto) 1.1 L, Lymph # (Auto) 1.5, [place] # (Auto) 0.8, Eos # (Auto) 0.2, Baso # (Auto) 0.1, Total Counted 100, Neutrophils % (Manual) 45, Lymphocytes % (Manual) 44, Monocytes % (Manual) 3, Eosinophils % (Manual) 5 H, Basophils % (Manual) 3.0 H, Platelet Estimate Normal, Microcytosis 1+, Stomatocytes 2+, Sodium 138, Potassium 3.5, Chloride 95 L, Carbon Dioxide 37 H, Anion Gap 9.5, BUN 14, Creatinine 1.20, Estimated Creat Clear 90, Estimated GFR 62, Est GFR ( Amer) 75, Glucose 85, Calcium 7.9 L, Magnesium 1.2 L D, Total Bilirubin 0.2, AST 81 H, ALT 36, Alkaline Phosphatase 285 H, Total Protein 5.6 L, Albumin 2.7 L, Globulin 2.9, Albumin/Globulin Ratio 0.9 L 03/23/24 05:46: POC Glucose 85 03/23/24 11:06: POC Glucose 128 H I & O for Last 24 hours: Intake & Output 03/20/24 03/21/24 03/22/24 03/23/24 23:59 23:59 23:59 23:59 Intake Total 1176.061 / 1176.061 989.492 / 171.036 5398.075 / 1019.075 240 / 240 Output Total 2049 / 2049 2450 / 2450 2500 / 2500 500 / 500 Balance -873.939 / -873.939 -1460.508 / -1460.508 -1480.925 / -1480.925 -260 / - 260 Weight 230 lb 11.49 oz 205 lb 7.886 oz 211 lb 4.8 oz Microbiology Reports for the Last 24 Hours: Microbiology 03/18/24 18:50 Blood Blood Culture - Preliminary NO GROWTH AFTER 4 DAYS 03/18/24 18:50 Blood Blood Culture - Preliminary NO GROWTH AFTER 4 DAYS Constitutional Constitutional: no acute distress and cooperative *Routine HEENT Exam Eye: Present PERRL *Routine Respiratory Exam Respiratory: Present CTA bilaterally; Absent accessory muscle use, wheezes or crackles *Routine Cardiovascular Exam Cardiovascular: Present RRR, Normal S1 and Normal S2; Absent murmur, gallop or rubs *Routine Abdominal Exam Abdominal: Present soft; Absent tenderness *Routine Extremities Exam Extremities: Present pulses intact; Absent cyanosis or edema *Routine Skin Exam Skin: Present intact; Absent erythema or wounds *Routine Neurological Exam Neurological: Present alert and oriented X3 Routine Psychiatric Exam Psychiatric: Present cooperative Progress Note: A&P Assessment and plan (1) Cardiogenic shock: Status: Acute (2) Atrial fibrillation with RVR: Status: Acute (3) Hypothyroidism: Status: Acute (4) Hypophosphatemia: Status: Acute (5) Hypomagnesemia: Status: Acute (6) Hypocalcemia: Status: Acute (7) Alcohol withdrawal syndrome: Status: Acute (8) Decubitus ulcer: Status: Acute (9) Cor pulmonale: Status: Acute Assessment and Plan Assessment and Plan for All Diagnoses:: Acute on Chronic Cor Pulmonale - sceondary to COPD - pt presented with reports of EF 20% at [facility] so was felt to be in cardiogenic shock and started on Milrinone and Bumex. - repeat ECHO here shows normal EF but severe RV Dysfunction and Dilation and BPs were consistetly low so Milrinone DCd and Bumex reduced - pt appears euvolemic, BP improved PAF - remains in A-fib but is rate controlled - cont Metoprolol, Dig, Lovenox ETOH Withdrawal - per Hospitalist Shock with Multiorgan Failure - resolved - presented hypotensive and tachycardic with nitrites in urine, possible pancreatitis on CT, and coccygeal wound, but also ETOH withdrawal, dehydration and A-fib RVR - nml WBC, afebril - s/p antibiotics - continue supportive care - per hospitalist AMS - resolving - due to ETOH? Phenobarb or Milrinone intolerance? - head CTA without acute process Bed bugs - precautions per protocol *CV stable/improving. Pt is euvolemic and rate controlled. Continue meds as noted above.
--- NOTE | 2024-03-23 14:01 | SW/DCPLANNER ---
Addendum entered by Haritha Hayden 03/24/24 10:52: Patient is not interested in placement. Patient will discharge home today and return to [facility] outpatient PT services. Original Note: I spoke w/ this patient regarding plans once medically stable for discharge. PT/OT evaluated patient and recommended placement at time of discharge. Patient is not interested in placement at this time and prefers to return home. Patient is not a candidate for home health services due to insurance. Patient stated that he would be interested in outpatient PT services at [facility]. Patient also stated that he would have transportation for outpatient PT and will not need a rolling walker at time of discharge. I will continue to follow up w/ this patient until medically stable for discharge. Discharge date is unknown at this time. I will continue to follow up.
--- NOTE | 2024-03-23 14:57 | HMH.OTEV ---
OT Inpatient Evaluation Rehab OT IP Evaluation Start: 03/23/24 14:41 Freq: ONCE Status: Active Protocol: Document 03/23/24 14:52 [place] (Rec: 03/23/24 14:56 [facility] [id number]) Rehab OT IP Assessment Subjective History 59-year-old male with a past medical history of alcohol abuse, atrial fibrillation, systolic heart failure with a EF of 20% as of December, GERD, hypothyroidism who presents emergency department for concerns for weeping coccyx wound. He was recently admitted to for a month for issues with his heart rate in December. He was discharged home and states since being at home he has not been taking his medicines. States that he been drinking heavily approximately 1/5 of alcohol a day. He reports he is generally independent with all ambulation and ADLs without AD, lives alone, no MALLORY the home, just a long walk to get in the house. He presents with wound to his lower back upon admission and reports it has been present for 3-4 mos. Pt has suffered a decline in status over the last 1-2 days with possible stroke like symptoms. Subjective Pt oriented x 2 on arrival. Pt agreeable to engage in therapy evaluation. Pt reports prior to being in the hospital he lived at home alone. Pt claims normally he is independent with all ADLs and simple IADLs. He normally does not use a rolling walker during functional transfers. Objective Patient Orientation Person,Name Right Upper Extremity Gross ROM Min Limitation <25% Left Upper Extremity Gross ROM Min Limitation <25% Shoulder ROM Limitations Muscle Weakness Elbow ROM Limitations Muscle Weakness Wrist Limitations of Range of Motion Muscle Weakness Bed Mobility bed mobility-scooting,bed mobility - supine/sit Assist Level Minimal x 2 (25% assist) Transfer Training Sit/Stand/Step Transfer Assist Level Minimal x 2 (25% assist) Lower Body Dressing Ability Maximum Assistance Performing Toilet Hygiene Ability Maximum Assistance Rehab OT IP prob,goals,plan Problems Date of Evaluation: 03/23/24 OT IP Problems Bed Mobility,Transfers,Balance ,Self care,Safety Rehab Potential Rehab Potential Good Equipment Needs Assistive Devices Rolling / Wheeled Walker Plan OT intervention Plan Bed Mobility,Transfers,Balance ,Self care,Safety,Therapeutic Exercise OT Plan Frequency Daily Duration LOS Discharge Goals Bed Mobility Ability Assistance x1 Sit to Stand Chair Transfer Ability Contact Guard/Hand Hold, Minimal x 1 (25% assist) Chair Transfer Ability Minimal x 1 (25% assist) Chair Transfer Assistive Devices Rolling Walker Lower Body Dressing Ability Minimal Assistance Upper Body Dressing Ability Independent Bathing Ability Moderate Assistance Performing Toilet Hygiene Ability Moderate Assistance Overall Commode/Toilet Transfer Ability Contact Guard,Minimal Assistance Commode/Toilet Transfer Technique Sit to/from Ambulatory Commode/Toilet Transfer Assistive Grab Bars Devices Oral Care Assist Minimal Assistance Decrease in Endurance Yes Discharge Plan OT Discharge Plan Pt will continue to be seen for OT services while at [facility]. At this time, pt would benefit most from short term rehab at [facility] due his functional decline below baseline. Continued skilled therapy services is important in order for patient to improve strength, safety, endurance, ADL independence, and functional transfers to reach PLOF. Eval Complexity Eval Charge Codes 07224 - Moderate Complexity PHYSICIAN CERTIFICATION: I certify the specified therapy services for Alonso Richardson are required, authorized, and reviewed every 30 days.
--- NOTE | 2024-03-23 15:00 | DIET.NUTRFU ---
Patient requesting chocolate milk on low sodium diet, RD approved. Dietary to adjust other beverages based on fluid restriction
[2024-03-23 17:37] LABS: POC Glucose,Bedside 120 (70-110)
[2024-03-23] MEDS: MULTIVITAMIN TABLET 1 EACH PO (18:06)
--- NOTE | 2024-03-23 18:29 | P.PN_ITS ---
Subjective *Date: 03/23/24 *Time: 19:19 Interval history: Patient feeling better today. Interactive on exam. Alert and oriented x 4. Initially slow to respond to see awoke but doing better. Working with therapy. Heart rate showing improvement. On 4 L nasal cannula initially on rounds. Attempting to wean to room air today. No withdrawal symptoms and no meds for alcohol withdrawal in over 24 hours Medical Exam Vital signs and Labs for Last 24 Hours: Vital Signs Temp Pulse Pulse Resp BP BP Pulse Ox 03/23/24 17:00 03/23/24 16:00 90 03/23/24 16:00 98.1 F 69 17 134/68 94 L 03/23/24 15:00 03/23/24 13:38 98.0 F 68 18 133/87 94 L 03/23/24 13:00 03/23/24 11:00 03/23/24 10:01 88 18 103/76 L 98 03/23/24 10:01 103/76 L 03/23/24 10:00 86 17 97 03/23/24 09:30 87 16 115/82 96 03/23/24 09:30 115/82 03/23/24 09:10 03/23/24 09:00 123/88 03/23/24 09:00 77 17 97 03/23/24 08:45 76 03/23/24 08:30 81 19 143/94 H 97 03/23/24 08:30 143/94 H 03/23/24 08:00 03/23/24 08:00 132/93 H 03/23/24 08:00 97.6 F 81 17 132/93 H 97 03/23/24 08:00 81 03/23/24 08:00 78 16 132/93 H 98 03/23/24 07:31 137/96 H 03/23/24 07:31 78 12 98 03/23/24 07:30 79 12 98 03/23/24 07:00 77 13 98 03/23/24 07:00 126/86 03/23/24 07:00 80 17 126/86 99 03/23/24 07:00 03/23/24 06:30 112/95 H 03/23/24 06:30 82 15 99 03/23/24 06:00 120/89 03/23/24 06:00 80 13 97 03/23/24 06:00 98 03/23/24 06:00 80 21 120/60 100 03/23/24 05:30 129/87 03/23/24 05:30 82 16 97 03/23/24 05:00 115/82 03/23/24 05:00 85 14 96 03/23/24 05:00 73 15 129/87 98 03/23/24 05:00 03/23/24 04:30 121/84 03/23/24 04:30 84 14 96 03/23/24 04:09 84 03/23/24 04:00 128/88 03/23/24 04:00 84 13 99 03/23/24 04:00 80 98 03/23/24 04:00 98.7 F 20 128/88 97 03/23/24 03:30 84 13 97 03/23/24 03:30 126/87 03/23/24 03:00 125/85 03/23/24 03:00 85 16 94 L 03/23/24 03:00 03/23/24 02:30 118/82 03/23/24 02:30 84 14 93 L 03/23/24 02:00 116/81 03/23/24 02:00 87 14 94 L 03/23/24 02:00 84 17 116/81 93 L 03/23/24 01:30 117/77 03/23/24 01:30 89 18 94 L 03/23/24 01:00 80 14 94 L 03/23/24 01:00 111/74 03/23/24 01:00 03/23/24 00:30 113/73 03/23/24 00:30 84 17 92 L 03/23/24 00:29 83 03/23/24 00:00 103/64 L 03/23/24 00:00 84 16 91 L 03/23/24 00:00 83 97 03/23/24 00:00 97.5 F L 90 18 125/92 H 97 03/22/24 23:30 115/82 03/22/24 23:30 84 12 98 03/22/24 23:01 122/96 H 03/22/24 23:01 82 16 95 03/22/24 23:00 84 14 99 03/22/24 23:00 03/22/24 23:00 84 17 122/96 H 99 03/22/24 22:30 14 03/22/24 22:30 139/100 H 03/22/24 22:00 141/98 H 03/22/24 22:00 80 21 100 03/22/24 22:00 81 21 141/98 H 100 03/22/24 21:30 138/95 H 03/22/24 21:30 85 15 99 03/22/24 21:00 129/85 03/22/24 20:38 03/22/24 20:33 86 03/22/24 20:00 97.8 F 89 16 114/72 99 03/22/24 20:00 87 98 03/22/24 20:00 88 15 121/79 98 03/22/24 19:00 80 127/86 99 03/22/24 18:34 O2 Del Method O2 Flow Rate FiO2 03/23/24 17:00 Room Air 03/23/24 16:00 03/23/24 16:00 03/23/24 15:00 Room Air 03/23/24 13:38 Room Air 03/23/24 13:00 Room Air 03/23/24 11:00 Nasal Cannula 2 03/23/24 10:01 03/23/24 10:01 03/23/24 10:00 03/23/24 09:30 03/23/24 09:30 03/23/24 09:10 Room Air 03/23/24 09:00 03/23/24 09:00 03/23/24 08:45 03/23/24 08:30 03/23/24 08:30 03/23/24 08:00 Nasal Cannula 4 03/23/24 08:00 03/23/24 08:00 03/23/24 08:00 03/23/24 08:00 Nasal Cannula 4 03/23/24 07:31 03/23/24 07:31 03/23/24 07:30 03/23/24 07:00 03/23/24 07:00 03/23/24 07:00 Nasal Cannula 4 03/23/24 07:00 Nasal Cannula 4 03/23/24 06:30 03/23/24 06:30 03/23/24 06:00 03/23/24 06:00 03/23/24 06:00 Nasal Cannula 4 03/23/24 06:00 Venturi Mask 03/23/24 05:30 03/23/24 05:30 03/23/24 05:00 03/23/24 05:00 03/23/24 05:00 Nasal Cannula 4 03/23/24 05:00 Nasal Cannula 4 03/23/24 04:30 03/23/24 04:30 03/23/24 04:09 03/23/24 04:00 03/23/24 04:00 03/23/24 04:00 Nasal Cannula 4 03/23/24 04:00 Nasal Cannula 4 03/23/24 03:30 03/23/24 03:30 03/23/24 03:00 03/23/24 03:00 03/23/24 03:00 Nasal Cannula 4 03/23/24 02:30 03/23/24 02:30 03/23/24 02:00 03/23/24 02:00 03/23/24 02:00 Nasal Cannula 4 03/23/24 01:30 03/23/24 01:30 03/23/24 01:00 03/23/24 01:00 03/23/24 01:00 Nasal Cannula 4 03/23/24 00:30 03/23/24 00:30 03/23/24 00:29 03/23/24 00:00 03/23/24 00:00 03/23/24 00:00 Vapotherm 25 50 03/23/24 00:00 Nasal Cannula 4 03/22/24 23:30 03/22/24 23:30 03/22/24 23:01 03/22/24 23:01 03/22/24 23:00 03/22/24 23:00 Nasal Cannula 4 03/22/24 23:00 Nasal Cannula 4 03/22/24 22:30 03/22/24 22:30 03/22/24 22:00 03/22/24 22:00 03/22/24 22:00 Nasal Cannula 03/22/24 21:30 03/22/24 21:30 03/22/24 21:00 03/22/24 20:38 Nasal Cannula 4 03/22/24 20:33 03/22/24 20:00 Nasal Cannula 4 03/22/24 20:00 Nasal Cannula 4 03/22/24 20:00 Nasal Cannula 4 03/22/24 19:00 Nasal Cannula 03/22/24 18:34 Nasal Cannula 4 Intake and Output 03/23/24 03/23/24 03/23/24 07:59 15:59 23:59 Intake Total 240 / 360 120 / 360 Output Total 500 / 500 0 / 500 Balance -500 / -140 240 / -140 120 / -140 Intake: Intake, Oral Amount 240 / 360 120 / 360 Output: Output, Urine Amount 500 / 500 0 / 500 Other: Number of Unmeasured Voids 1 Number of Bowel Movements 1 Weight 95.844 kg Patient Weight 03/23/24 23:59 Weight 95.844 kg Laboratory Results - last 24 hr 03/22/24 23:19: POC Glucose 107 03/22/24 23:20: Vitamin B12 810, Folate 7.73 03/22/24 : Digoxin 1.20 03/23/24 05:25: WBC 3.8 L, RBC 3.07 L, Hgb 10.6 L, Hct 31.5 L, MCV 102.6 H, MCH 34.5 H, MCHC 33.7, RDW 19.5 H, Plt Count 268, MPV 9.3, Neut % (Auto) 29.5 L, Lymph % (Auto) 39.7, [place] % (Auto) 20.5 H D, Eos % (Auto) 6.3, Baso % (Auto) 2.4 H, Neut # (Auto) 1.1 L, Lymph # (Auto) 1.5, [place] # (Auto) 0.8, Eos # (Auto) 0.2, Baso # (Auto) 0.1, Total Counted 100, Neutrophils % (Manual) 45, Lymphocytes % (Manual) 44, Monocytes % (Manual) 3, Eosinophils % (Manual) 5 H, Basophils % (Manual) 3.0 H, Platelet Estimate Normal, Microcytosis 1+, Stomatocytes 2+, Sodium 138, Potassium 3.5, Chloride 95 L, Carbon Dioxide 37 H, Anion Gap 9.5, BUN 14, Creatinine 1.20, Estimated Creat Clear 90, Estimated GFR 62, Est GFR ( Amer) 75, Glucose 85, Calcium 7.9 L, Magnesium 1.2 L D, Total Bilirubin 0.2, AST 81 H, ALT 36, Alkaline Phosphatase 285 H, Total Protein 5.6 L, Albumin 2.7 L, Globulin 2.9, Albumin/Globulin Ratio 0.9 L 03/23/24 05:46: POC Glucose 85 03/23/24 11:06: POC Glucose 128 H 03/23/24 17:30: POC Glucose 120 H I & O for Labs for Last 24 Hours: Intake & Output 03/20/24 03/21/24 03/22/24 03/23/24 23:59 23:59 23:59 23:59 Intake Total 1176.061 / 1176.061 989.492 / 778.694 1341.075 / 1019.075 360 / 360 Output Total 2049 2450 / 2450 2500 / 2500 500 / 500 Balance -873.939 / -873.939 -1460.508 / -1460.508 -1480.925 / -1480.925 -140 / - 140 Weight 104.652 kg 93.21 kg 95.844 kg Microbiology Reports for the Last 24 Hours: Microbiology 03/22/24 Unknown Blood Blood Culture - Preliminary NO GROWTH AFTER 24 HOURS 03/22/24 Unknown Blood Blood Culture - Preliminary NO GROWTH AFTER 24 HOURS 03/18/24 18:50 Blood Blood Culture - Preliminary NO GROWTH AFTER 4 DAYS 03/18/24 18:50 Blood Blood Culture - Preliminary NO GROWTH AFTER 4 DAYS Constitutional: Present no acute distress, average body habitus, chronically ill appearing and cooperative Head: Present atraumatic and normocephalic ENT: Present normal exam Respiratory: Present normal respiratory effort; Absent rhonchi, wheezes or crackles Cardiac: Present Reg Rate and Rhythm GI: Present soft and normal bowel sounds; Absent distention or tenderness Extremities: Present normal inspection and full ROM Skin: Present intact; Absent erythema Neuro: Present Grossly Intact, alert, awake, oriented x 3 and moves all extremities Assessment and Plan *Assessment and plan (1) Acute on chronic systolic heart failure: Status: Acute Category: Medical Code(s): I50.23 - Acute on chronic systolic (congestive) heart failure (2) Atrial fibrillation with RVR: Status: Acute Category: Medical Code(s): I48.91 - Unspecified atrial fibrillation (3) Hypothyroidism: Status: Acute Category: Medical Code(s): E03.9 - Hypothyroidism, unspecified (4) Hypophosphatemia: Status: Acute Category: Medical Code(s): E83.39 - Other disorders of phosphorus metabolism (5) Cardiogenic shock: Status: Acute Category: Medical Code(s): R57.0 - Cardiogenic shock (6) Hypomagnesemia: Status: Acute Category: Medical Code(s): E83.42 - Hypomagnesemia (7) Hypocalcemia: Status: Acute Category: Medical Code(s): E83.51 - Hypocalcemia (8) Alcohol withdrawal syndrome: Status: Acute Category: Medical Code(s): F10.939 - Alcohol use, unspecified with withdrawal, unspecified (9) Decubitus ulcer: Status: Acute Category: Medical Code(s): L89.90 - Pressure ulcer of unspecified site, unspecified stage Plan Alonso Richardson is a 59-year-old male who was admitted for cardiogenic shock, A- fib RVR, HFpEF exacerbation, alcohol withdrawal. He admitted he had not been taking his medications for a while. Showing improvement over the past 24 hours in mentation. More alert today. No withdrawal symptoms of significance in the past 24 to 48 hours. De-escalate from ICU. Continues to require inpatient management. #Cardiogenic shock #Atrial fibrillation with RVR #Acute HFpEF exacerbation ? Presented with A-fib RVR, hypotension suggesting cardiogenic shock. ? Case discussed with cardiology who is following, Continue Bumex 1 mg 3 times daily due to soft pressures overnight. ? -2.5 liters since admission ? ECHO shows preserved ejection fraction. ? Continue digoxin 125 mcg, metoprolol succinate 150 mg daily. Currently rate controlled. ? Transitioned to Eliquis 5 mg twice daily as no plans for intervention at this time. #Acute metabolic encephalopathy #Alcohol withdrawal ? Showing improvement in mentation today. Alert and oriented x 3. Working with therapy. Eating. ? Concerned that secondary to medications for his withdrawal. Continue to hold phenobarbital. No active signs of withdrawal symptoms. ? Could also be from digoxin toxicity as this was started on admission. Follow- up digoxin level. ? TSH elevated to 46 on admission, however this was obtained during an acute and severe illness and thus unreliable. Free T4 in fact elevated. ? Other workup thus far unremarkable including VBG, ammonia, respiratory panel, CT head. No signs of infection or significant electrolyte abnormalities. ? CIWA protocol, Ativan as needed. ? Ativan, Hiprex as needed for agitation. #Hypothyroidism ? TSH initially elevated to 46, however this was obtained during an acute and severe illness and thus unreliable. Free T4 in fact elevated. ? Reduced levothyroxine to 100 mcg due to elevated free T4 today. # Decubitus ulcer - Weeping wound noted. Secondary to volume overload -White count normal at 3.8, hemoglobin 10.6. No weeping on exam today. ? Wound care following. # Abnormal UA ? Urine culture did not show growth. #Hypomagnesemia #Hypokalemia #Hypophosphatemia ? Repleting per protocol. Magnesium 1.2, potassium 3.5. Kidney function normal BUN 14, creatinine 1.2. Repeat CBC, CMP, magnesium ordered for the morning. #Rash Known bedbugs found on patient while in the emergency department Continue contact precautions Full code Cardiac diet
--- NOTE | 2024-03-23 18:33 | PEERSUPPORT ---
Peer Support Note Patient Information Patient Information: DOS: 03/23/2023 ? Reason: ETOH/AUD Ps follow up ?Transferred from ICU/ 202 ? Pt? awake and oriented. Transferred to med/surg floor setting up in bed watching television. He stated he is glad to now be in a room of his own, and feeling better. ? Ps explored his understanding of his health conditions and course of treatment. ? Pt stated he has no idea why they had him in the ICU for days and frustrated when hearing he needs to go to a [facility] facility. ? Pt does not appear to understand his health condition or level of skilled medical care he needs at this time. ? Ps encouraged pt to ask questions when he does not understand to have a better understanding. ? Pt shares briefly of his routine at home without medical care being provided by his neighbor and longtime friend Cordelia. He says his dog Josue is trained as an emotional support animal. This leaves him not understanding why he cannot go home. ? Ps uses reflective sharing to emphasize the needs of his health conditions in hopes to place priority of understanding that will be gained through healthy communication with his provider. ? Ps also informs of his right to decide as well as emphasizing his health being priority in order to care for his maribell Salas who he loves very much and depends on him. ? Ps and pt discuss medications, recovery connections, AA meetings, and other resources to encourage refraining from alcohol for part of his after care for overall health and wellness. Pt is receptive to peer support. ? 6:30? pm ? Pt is open to talk with a good attitude and showing humor, he says he is feeling much better now being in his own room. ? Ps and pt discussed priority of self-care and responsibility to his sobriety and health overall once discharged. ? Pt is understanding that he is to discuss his health with provider in the morning. ? Pt does show interest in attending local AA meetings on Friday and Fridays at the local [employer]. ? Pt does agree to follow up phone calls with peer support for ongoing support for recovery. ? ? Ps will follow up with patient while admitted at [facility].
[2024-03-23] MEDS: PANTOPRAZOLE 40MG TABLET 40 MG PO (21:21)
[2024-03-23 21:51] LABS: POC Glucose,Bedside 133 (70-110)
[2024-03-24] VITALS (7 sets, daily range): BP systolic 122–140; BP diastolic 82–90; PULSE 66–80; RESP 16–20; TEMP 36.4–36.6; O2SAT 92–97; BMI 28.0
[2024-03-24 06:10] LABS: POC Glucose,Bedside 112 (70-110)
[2024-03-24 07:17] LABS: Basophils # 0.1 K/mm3 (0-0.2); Basophils % 2.2 % (0.1-2.0); Eosinophils # 0.2 K/mm3 (0.0-0.4); Eosinophils % 3.7 % (0.1-12.0); Hemoglobin 11.1 g/dL (14.1-18.0); Lymphocytes # 1.6 K/mm3 (0.7-4.5); Lymphocytes % 35.2 % (10-50); Mean Corpuscular HGB Conc 33.6 g/dL (31.8-35.4); Mean Corpuscular Hemoglobin 33.9 pg (27.0-31.2); Mean Corpuscular Volume 100.9 fl (80-94); Mean Platelet Volume 9.2 fl (7.4-10.4); Monocytes # 1.1 K/mm3 (0.1-1.0); Neutrophils # 1.5 K/mm3 (1.8-7.8); Neutrophils % 33.2 % (37.0-80.0); Platelet Count 313 K/mm3 (142-424); Red Blood Count 3.27 M/mm3 (4.60-6.20); Red Cell Distribution Width 19.6 % (11.5-17.5); White Blood Count 4.6 K/mm3 (4.8-10.8)
[2024-03-24 07:19] LABS: MANUAL DIFFERENTIAL MANUAL DIFFERENTIAL (MANUAL DIFF)
[2024-03-24 07:24] LABS: Alanine Aminotransferase 30 U/L (12-78); Albumin Level 2.7 g/dl (3.5-5.0); Albumin/Globulin Ratio 0.9 (1.1-1.8); Alkaline Phosphatase 284 U/L (38-126); Aspartate Amino Transferase 61 U/L (17-59); Bilirubin,Total 0.2 mg/dl (0.2-1.3); Blood Urea Nitrogen 14 mg/dl (9-20); Calcium 8.6 mg/dl (8.4-10.2); Carbon Dioxide 37 mmol/L (22.0-30.0); Chloride 95 mmol/L (98-107); Creatinine Clearance Estimated 90 mL/min (50-200); Estimated Glomerular Filt Rate 62 ml/min (>60); GFR (African American) 75 ML/MIN (>60); Globulin 2.9 g/dL (1.3-3.2); Glucose 86 mg/dl (74-100); Magnesium 1.6 mg/dl (1.6-2.3); Sodium 132 mmol/L (136-145); Total Protein,Serum 5.6 g/dl (6.3-8.2)
[2024-03-24 08:13] LABS: Eosinophils % 4 % (0-3); Lymphocytes % 40 % (10-50); Macrocytosis 1+; Monocytes % 16 % (2-9); Neutrophils % 40 % (42-76); Platelet Estimate Normal; Total Cells Counted 100
[2024-03-24] MEDS: METOPROLOL SUCCINATE XL 100MG TABLET 150 MG PO (08:51)
[2024-03-24] MEDS: BUMETANIDE 1MG/4ML VIAL 1 MG IV (08:52)
[2024-03-24] MEDS: FOLIC ACID 1MG TABLET 1 MG PO (08:52)
[2024-03-24] MEDS: APIXABAN 5MG TABLET 5 MG PO (08:52)
[2024-03-24] MEDS: DIGOXIN 0.125MG TABLET 125 MCG PO (08:53)
[2024-03-24] MEDS: LEVOTHYROXINE 100MCG (0.1MG) TAB 100 MCG PO (08:53)
[2024-03-24] MEDS: SODIUM CHLORIDE 0.9% IV (08:54)
[2024-03-24] MEDS: THIAMINE HCL IV (08:54)
--- NOTE | 2024-03-24 10:33 | EXP.CARD.PN ---
Subjective Subjective Date: 03/24/24 Time: 09:30 Principal diagnosis: shock Interval history: Pt feeling much better. BP and HR well controlled. Mentation back to baseline. Asking to go home. Voicing that he is done with alcohol. Exam Data for Last 24 hours Vital signs and Labs for Last 24 Hours: Temp Pulse Resp BP Pulse Ox O2 Del Method O2 Flow Rate 97.6 F 76 16 127/87 97 Room Air 2 03/24/24 03:23 03/24/24 08:53 03/24/24 03:23 03/24/24 03:23 03/24/24 03:23 03/24/24 06:56 03/23/24 11:00 FiO2 50 03/23/24 00:00 Laboratory Results - last 24 hr 03/23/24 11:06: POC Glucose 128 H 03/23/24 17:30: POC Glucose 120 H 03/23/24 21:30: POC Glucose 133 H 03/24/24 05:47: POC Glucose 112 H 03/24/24 06:51: WBC 4.6 L, RBC 3.27 L, Hgb 11.1 L, Hct 33.0 L, MCV 100.9 H, MCH 33.9 H, MCHC 33.6, RDW 19.6 H, Plt Count 313, MPV 9.2, Neut % (Auto) 33.2 L, Lymph % (Auto) 35.2, [place] % (Auto) 24.0 H, Eos % (Auto) 3.7, Baso % (Auto) 2.2 H, Neut # (Auto) 1.5 L, Lymph # (Auto) 1.6, [place] # (Auto) 1.1 H, Eos # (Auto) 0.2, Baso # (Auto) 0.1, Total Counted 100, Neutrophils % (Manual) 40 L, Lymphocytes % (Manual) 40, Monocytes % (Manual) 16 H, Eosinophils % (Manual) 4 H, Platelet Estimate Normal, Macrocytosis 1+, Sodium 132 L, Potassium 4.0, Chloride 95 L, Carbon Dioxide 37 H, Anion Gap 4.0 L, BUN 14, Creatinine 1.20, Estimated Creat Clear 90, Estimated GFR 62, Est GFR ( Amer) 75, Glucose 86, Calcium 8.6, Magnesium 1.6 D, Total Bilirubin 0.2, AST 61 H, ALT 30, Alkaline Phosphatase 284 H, Total Protein 5.6 L, Albumin 2.7 L, Globulin 2.9, Albumin/Globulin Ratio 0.9 L I & O for Last 24 hours: Intake & Output 03/21/24 03/22/24 03/23/24 03/24/24 23:59 23:59 23:59 23:59 Intake Total 989.492 / 447.723 0197.075 / 1019.075 360 / 840 480 / 480 Output Total 2450 / 2450 2500 / 2500 500 / 1450 1350 / 1350 Balance -1460.508 / -1460.508 -1480.925 / -1480.925 -140 / -610 -870 / -870 Weight 205 lb 7.886 oz 211 lb 4.8 oz 211 lb 4.797 oz Microbiology Reports for the Last 24 Hours: Microbiology 03/18/24 18:50 Blood Blood Culture - Final NO GROWTH AFTER 5 DAYS 03/18/24 18:50 Blood Blood Culture - Final NO GROWTH AFTER 5 DAYS 03/22/24 Unknown Blood Blood Culture - Preliminary NO GROWTH AFTER 24 HOURS 03/22/24 Unknown Blood Blood Culture - Preliminary NO GROWTH AFTER 24 HOURS Constitutional Constitutional: no acute distress and cooperative *Routine HEENT Exam Eye: Present PERRL *Routine Respiratory Exam Respiratory: Present CTA bilaterally; Absent accessory muscle use, wheezes or crackles *Routine Cardiovascular Exam Cardiovascular: Present RRR, Normal S1 and Normal S2; Absent murmur, gallop or rubs *Routine Abdominal Exam Abdominal: Present soft; Absent tenderness *Routine Extremities Exam Extremities: Present pulses intact; Absent cyanosis or edema *Routine Skin Exam Skin: Present intact; Absent erythema or wounds *Routine Neurological Exam Neurological: Present alert and oriented X3 Routine Psychiatric Exam Psychiatric: Present cooperative Progress Note: A&P Assessment and plan (1) Cardiogenic shock: Status: Acute (2) Atrial fibrillation with RVR: Status: Acute (3) Cor pulmonale: Status: Acute (4) Hypothyroidism: Status: Acute (5) Hypophosphatemia: Status: Acute (6) Hypomagnesemia: Status: Acute (7) Hypocalcemia: Status: Acute (8) Alcohol withdrawal syndrome: Status: Acute (9) Decubitus ulcer: Status: Acute Assessment and Plan Assessment and Plan for All Diagnoses:: Acute on Chronic Cor Pulmonale - sceondary to COPD - pt presented with reports of EF 20% at so was felt to be in cardiogenic shock and started on Milrinone and Bumex. - repeat ECHO here shows normal EF but severe RV Dysfunction and Dilation and BPs were consistetly low so Milrinone DCd and Bumex reduced - pt appears euvolemic, BP improved 03/24: Pt back to baseline with stable vitals/labs. PAF - remains in A-fib but is rate controlled - cont Metoprolol, Dig, Lovenox 03/24: Rate controlled and asymptomatic. Discussed avoiding ETOH retirement. ETOH Withdrawal - per Hospitalist 03/24: Resolved. Pt voices he no longer wants to drink. Shock with Multiorgan Failure - resolved - presented hypotensive and tachycardic with nitrites in urine, possible pancreatitis on CT, and coccygeal wound, but also ETOH withdrawal, dehydration and A-fib RVR - nml WBC, afebril - s/p antibiotics - continue supportive care - per hospitalist 03/24: Resolved. AMS - resolving - due to ETOH? Phenobarb or Milrinone intolerance? - head CTA without acute process 03/24: Resolved Bed bugs - precautions per protocol *CV stable for discharge. *Pt needs f/u in our office 1-2 weeks post discharge. He needs referrals for ETOH dependence, AA, etc. *CV Discharge Meds: - Eliquis 5mg BID - Metoprolol Tartrate 25mg BID - Digoxin 0.125mg daily - Bumex 1mg BID
--- NOTE | 2024-03-24 12:23 | P.DS_ITS ---
General Admission date:: 03/18/24 Discharge date: 03/24/24 HPI HPI HPI: This is a 59-year-old male with a past medical history of alcohol abuse, atrial fibrillation, systolic heart failure with a EF of 20% as of December, GERD, hypothyroidism who presents emergency department for concerns for weeping coccyx wound. He was recently admitted to for a month for issues with his heart rate in December. He was discharged home and states since being at home he has not been taking his medicines. States that he been drinking heavily approximately 1/5 of alcohol a day. States the last 2 days he cut back on his u se. Denies any chest pain or shortness of breath. States that he has come to the ER for treatment for his wound. States that it is weeping, also noticed lower extremity swelling that is making it difficult to walk. He also has not been taking his anticoagulation With EMS he was noted to be extremely ill hypotensive, tachycardic, with hypoxia on room air. Workup in the emergency room notable for cardiogenic shock systolic blood pressures in the 70s with heart rate in the 150s, A-fib. Noted to be grossly overloaded on exam. Dr. Harris was consulted with cardiology and recommends inotropic support with milrinone and vasopressin. Further lab evaluation notable for white blood cell count of 6.0. Stable H&H. D-dimer of 1.32 potassium 3.5, creatinine of 1.7, lactic of 5.2 proBNP of 3700 TSH of 46 phosphorus of 0.8, mag of 0.[address] imaging of chest abdomen pelvis negative acute Given his critical nature, he is admitted to the ICU. On admission heart rate is in 130s with systolic pressure improving into the low 100s with milrinone and vasopressin. Spoke with Dr. Harris and Dr. Anderson, prior to admission. Hospital Course Hospital Course Hospital Course: Alonso Richardson is a 59-year-old male who was admitted for cardiogenic shock, A- fib RVR, HFpEF exacerbation, alcohol withdrawal. He admitted he had not been taking his medications for a while. Presented with a septic with cardiogenic shock, acute heart failure preserved ejection fraction. Had alcohol withdrawal and encephalopathy. Symptoms has resolved. Responded well to medical management of heart failure. Cardiology assisted with care. Stable to discharge. Therapy initially recommended placement, improved to the point they recommended home health however patient does not qualify based on insurance. Will refer for outpatient therapy. Stable to discharge. Problems addressed as follows: #Cardiogenic shock #Atrial fibrillation with RVR #Acute HFpEF exacerbation ? Presented with A-fib RVR, hypotension suggesting cardiogenic shock. Was initiated on Bumex milrinone and pressors to treat volume overload and heart failure. Showed gradual improvement, with response to diuresis. Gradually weaned off milrinone and pressors. Continued on Bumex. Negative volume status during admission. Echo was obtained showing preserved ejection fraction. Plan to continue digoxin 125 mcg daily, metoprolol succinate 150 mg daily. Rate currently controlled. Initially on subcu anticoagulation. Transition to Eliquis 5 mg twice daily for continued anticoagulation at discharge. Patient stable on room air. Overall doing well. Appears euvolemic at discharge. #Acute metabolic encephalopathy #Alcohol withdrawal ? Presented with encephalopathy and alcohol withdrawal. Started on CIWA protocol. Mentation gradually improved. Was somewhat confused after phenobarbital but after laying medication, patient showed gradual improvement TSH was also found to be elevated. Encephalopathy more or less resolved with treatment of his underlying acute issues. Workup with VBG, ammonia, respiratory panel, CT of head unremarkable. No signs of infection. Back to baseline mentation at this time. #Hypothyroidism ? TSH initially elevated to 46, however this was obtained during an acute and severe illness and thus unreliable. Free T4 in fact elevated. Levothyroxine was decreased to 100 mcg daily due to elevated T4. # Decubitus ulcer - Weeping wound noted on back. Secondary to volume overload. Wound care assisted with management. Wound dried by discharge. White count remained normal. No further weeping. No indication for antibiotics or dressings. # Abnormal UA: Urine culture did not show growth. #Hypomagnesemia #Hypokalemia #Hypophosphatemia ? Electrolyte disturbances during admission. Showed improvement. Potassium normal on day of discharge, magnesium improved, sodium improving at 132. Kidney function normal with BUN 14, creatinine 1.2. #Rash Known bedbugs found on patient while in the emergency department Stable to discharge home. Exam Data for Last 24 hours Vital signs and Labs for Last 24 Hours: Temp Pulse Resp BP Pulse Ox O2 Del Method O2 Flow Rate 97.9 F 69 17 122/90 92 L Room Air 2 03/24/24 11:54 03/24/24 11:54 03/24/24 11:54 03/24/24 11:54 03/24/24 11:54 03/24/24 11:54 03/23/24 11:00 FiO2 50 03/23/24 00:00 Laboratory Results - last 24 hr 03/23/24 17:30: POC Glucose 120 H 03/23/24 21:30: POC Glucose 133 H 03/24/24 05:47: POC Glucose 112 H 03/24/24 06:51: WBC 4.6 L, RBC 3.27 L, Hgb 11.1 L, Hct 33.0 L, MCV 100.9 H, MCH 33.9 H, MCHC 33.6, RDW 19.6 H, Plt Count 313, MPV 9.2, Neut % (Auto) 33.2 L, Lymph % (Auto) 35.2, Mcduffie % (Auto) 24.0 H, Eos % (Auto) 3.7, Baso % (Auto) 2.2 H , Neut # (Auto) 1.5 L, Lymph # (Auto) 1.6, Mcduffie # (Auto) 1.1 H, Eos # (Auto) 0.2, Baso # (Auto) 0.1, Total Counted 100, Neutrophils % (Manual) 40 L, Lymphoc ytes % (Manual) 40, Monocytes % (Manual) 16 H, Eosinophils % (Manual) 4 H, Platelet Estimate Normal, Macrocytosis 1+, Sodium 132 L, Potassium 4.0, Chloride 95 L, Carbon Dioxide 37 H, Anion Gap 4.0 L, BUN 14, Creatinine 1.20, Estimated Creat Clear 90, Estimated GFR 62, Est GFR ( Amer) 75, Glucose 86, Calcium 8.6, Magnesium 1.6 D, Total Bilirubin 0.2, AST 61 H, ALT 30, Alkaline Phosphatase 284 H, Total Protein 5.6 L, Albumin 2.7 L, Globulin 2.9, Albumin/Globulin Ratio 0.9 L I & O for Last 24 hours: Intake & Output 03/21/24 03/22/24 03/23/24 03/24/24 23:59 23:59 23:59 23:59 Intake Total 989.492 / 874.380 2485.075 / 1019.075 360 / 840 750 / 750 Output Total 2450 / 2450 2500 / 2500 500 / 1450 1650 / 1650 Balance -1460.508 / -1460.508 -1480.925 / -1480.925 -140 / -610 -900 / -900 Weight 93.21 kg 95.844 kg 95.844 kg Microbiology Reports for the Last 24 Hours: Microbiology 03/18/24 18:50 Blood Blood Culture - Final NO GROWTH AFTER 5 DAYS 03/18/24 18:50 Blood Blood Culture - Final NO GROWTH AFTER 5 DAYS 03/22/24 Unknown Blood Blood Culture - Preliminary NO GROWTH AFTER 24 HOURS 03/22/24 Unknown Blood Blood Culture - Preliminary NO GROWTH AFTER 24 HOURS Constitutional Constitutional: no acute distress, average body habitus and chronically ill appearing *Routine HEENT Exam Head: Present normocephalic and atraumatic Eye: Present PERRL *Routine Neck Exam Neck: Present supple *Routine Respiratory Exam Respiratory: Present CTA bilaterally; Absent accessory muscle use, wheezes or crackles *Routine Cardiovascular Exam Cardiovascular: Present RRR, Normal S1 and Normal S2; Absent murmur, gallop or rubs *Routine Abdominal Exam Abdominal: Present soft; Absent tenderness *Routine Rectal Exam Patient deferred: visual exam *Routine Exam Patient deferred: penile exam *Routine Extremities Exam Extremities: Present pulses intact; Absent cyanosis or edema Comments: Bilateral lower extremity pitting edema 1+. *Routine Skin Exam Skin: Present intact; Absent erythema or wounds Comments: no weeping from back *Routine Neurological Exam Neurological: Present alert, oriented X3 and moving all extremities; Absent altered mental status Routine Psychiatric Exam Psychiatric: Present cooperative Results Data Completed and Pending Labs on day of discharge: Labs from last 24 hours 03/24/24 03/24/24 03/23/24 06:51 05:47 21:30 WBC 4.6 L RBC 3.27 L Hgb 11.1 L Hct 33.0 L MCV 100.9 H MCH 33.9 H MCHC 33.6 RDW 19.6 H Plt Count 313 MPV 9.2 Neut % (Auto) 33.2 L Lymph % (Auto) 35.2 Mcduffie % (Auto) 24.0 H Eos % (Auto) 3.7 Baso % (Auto) 2.2 H Neut # (Auto) 1.5 L Lymph # (Auto) 1.6 Mcduffie # (Auto) 1.1 H Eos # (Auto) 0.2 Baso # (Auto) 0.1 Total Counted 100 Neutrophils % (Manual) 40 L Lymphocytes % (Manual) 40 Monocytes % (Manual) 16 H Eosinophils % (Manual) 4 H Platelet Estimate Normal Macrocytosis 1+ Sodium 132 L Potassium 4.0 Chloride 95 L Carbon Dioxide 37 H Anion Gap 4.0 L BUN 14 Creatinine 1.20 Estimated Creat Clear 90 Estimated GFR 62 Est GFR ( Amer) 75 Glucose 86 POC Glucose 112 H 133 H Calcium 8.6 Magnesium 1.6 D Total Bilirubin 0.2 AST 61 H ALT 30 Alkaline Phosphatase 284 H Total Protein 5.6 L Albumin 2.7 L Globulin 2.9 Albumin/Globulin Ratio 0.9 L 03/23/24 17:30 WBC RBC Hgb Hct MCV MCH MCHC RDW Plt Count MPV Neut % (Auto) Lymph % (Auto) Mcduffie % (Auto) Eos % (Auto) Baso % (Auto) Neut # (Auto) Lymph # (Auto) Mcduffie # (Auto) Eos # (Auto) Baso # (Auto) Total Counted Neutrophils % (Manual) Lymphocytes % (Manual) Monocytes % (Manual) Eosinophils % (Manual) Platelet Estimate Macrocytosis Sodium Potassium Chloride Carbon Dioxide Anion Gap BUN Creatinine Estimated Creat Clear Estimated GFR Est GFR ( Amer) Glucose POC Glucose 120 H Calcium Magnesium Total Bilirubin AST ALT Alkaline Phosphatase Total Protein Albumin Globulin Albumin/Globulin Ratio Preliminary micro results at discharge 03/22/24 Unknown Blood Culture - Preliminary Blood NO GROWTH AFTER 24 HOURS 03/22/24 Unknown Blood Culture - Preliminary Blood NO GROWTH AFTER 24 HOURS DS: Diagnosis Discharge Diagnosis (1) Cardiogenic shock: Status: Acute Code(s): R57.0 - Cardiogenic shock (2) Atrial fibrillation with RVR: Status: Acute Code(s): I48.91 - Unspecified atrial fibrillation (3) Cor pulmonale: Status: Acute Code(s): I27.81 - Cor pulmonale (chronic) (4) Hypothyroidism: Status: Acute Code(s): E03.9 - Hypothyroidism, unspecified (5) Hypophosphatemia: Status: Acute Code(s): E83.39 - Other disorders of phosphorus metabolism (6) Hypomagnesemia: Status: Acute Code(s): E83.42 - Hypomagnesemia (7) Hypocalcemia: Status: Acute Code(s): E83.51 - Hypocalcemia (8) Alcohol withdrawal syndrome: Status: Acute Code(s): F10.939 - Alcohol use, unspecified with withdrawal, unspecified (9) Decubitus ulcer: Status: Acute Code(s): L89.90 - Pressure ulcer of unspecified site, unspecified stage Meds Home Medications and Allergies Home Medications ?Medication ?Instructions ?Recorded ?Confirmed ?Type apixaban 5 mg tablet (Eliquis) 5 mg PO BID 03/19/24 03/19/24 History ferrous sulfate 324 mg (65 mg 324 mg PO DAILY 03/19/24 03/19/24 History iron) tablet,delayed release folic acid 1 mg tablet 1 mg PO DAILY 03/19/24 03/19/24 History levothyroxine 125 mcg tablet 125 mcg PO AM 03/19/24 03/19/24 History pantoprazole 40 mg tablet,delayed 40 mg PO AM 03/19/24 03/19/24 History release sertraline 100 mg tablet 100 mg PO PM 03/19/24 03/19/24 History bumetanide 1 mg tablet 1 mg PO BID #60 tabs 03/24/24 Rx digoxin 125 mcg (0.125 mg) tablet 125 mcg PO DAILY 30 days #30 tabs 03/24/24 Rx metoprolol succinate 100 mg 150 mg (1.5 x 100 mg) PO DAILY 30 03/24/24 Rx tablet,extended release 24 hr days #45 tabs naltrexone 50 mg tablet 50 mg PO DAILY 30 days #30 tabs 03/24/24 Rx thiamine mononitrate (vit B1) 100 100 mg PO DAILY 30 days #30 tabs 03/24/24 Rx mg tablet New Prescriptions to Start Prescriptions: zackmetkumarde Richie Parra digoxin Richie Parra metoprolol succinate Richie Parra naltrexone Richie Parra thiamine mononitrate (vit B1) Richie Parra Allergies Allergy/AdvReac Type Severity Reaction Status Date / Time hydrochlorothiazide AdvReac Unknown Other Verified 01/15/24 14:31 Discharge Plan Disposition Patient Disposition: Home, Self-Care Condition: Good Discharge Order Discharge Orders: Discharge Order (Routine); Ordered 03/24/24 Ordered By: Richie Parra Follow up Plan Follow up with: Kev Loera PA [Physician Clearance Representative] - 04/07/24 10:30 am (1-2WEEKS) Sravan Meza MD [Staff Physician] - 04/01/24 11:00 am Prescriptions/Medication Reconciliation: New metoprolol succinate 100 mg Tablet Extended Release 24 Hr 150 mg PO DAILY 30 Days Qty: 45 0RF digoxin 125 mcg (0.125 mg) Tablet 125 mcg PO DAILY 30 Days Qty: 30 0RF thiamine mononitrate (vit B1) 100 mg Tablet 100 mg PO DAILY 30 Days Qty: 30 0RF bumetanide 1 mg tablet 1 mg PO BID Qty: 60 0RF Continued sertraline 100 mg tablet 100 mg PO PM Patient Comments: TAKE ONE TABLET BY MOUTH EVERY DAY FOR depression pantoprazole 40 mg tablet,delayed release (DR/EC) 40 mg PO AM Patient Comments: TAKE ONE TABLET BY MOUTH EVERY DAY FOR stomach issues levothyroxine 125 mcg tablet 125 mcg PO AM Patient Comments: TAKE ONE TABLET BY MOUTH EVERY DAY IN THE MORNING folic acid 1 mg tablet 1 mg PO DAILY Patient Comments: TAKE ONE TABLET BY MOUTH EVERY DAY ferrous sulfate 324 mg (65 mg iron) tablet,delayed release (DR/EC) 324 mg PO DAILY Patient Comments: TAKE ONE TABLET BY MOUTH THREE TIMES DAILY Eliquis 5 mg tablet 5 mg PO BID Patient Comments: TAKE ONE TABLET BY MOUTH TWICE DAILY naltrexone 50 mg tablet 50 mg PO DAILY 30 Days Qty: 30 0RF Discontinued amiodarone 200 mg tablet 200 mg PO DAILY Patient Comments: TAKE ONE TABLET BY MOUTH EVERY DAY thiamine HCl (vitamin B1) 100 mg tablet 100 mg PO DAILY Patient Comments: TAKE ONE TABLET BY MOUTH EVERY DAY digoxin 250 mcg (0.25 mg) tablet 250 mcg PO DAILY Patient Comments: TAKE ONE TABLET BY MOUTH EVERY DAY metoprolol tartrate 25 mg tablet 25 mg PO BID Patient Comments: TAKE ONE TABLET BY MOUTH TWICE DAILY Other Ambulatory Orders: Rehab Eval, OP (Routine) Timeframe: 2 Days Facility: [facility] - Location: Physical Therapy Ordered By: Richie Parra Problem Reconciliation Problems Reviewed?: Yes Patient Discharge Instructions ACTIVITY: Continue current activity DIET: continue same diet Patient Instructions: DI for Heart Failure, DI for Atrial Fibrillation, DI for Drug or Alcohol Withdrawal, Low-Sodium Diet Print Language: Somali Providers Primary Care Provider: Provider,Referral Admit Provider: Jorje Anderson Attending Provider: Jorje Anderson
--- NOTE | 2024-03-24 13:08 | HMH.PHAINT1 ---
Pharmacy Intervention Comments: COUNSELED PATIENT ON MEDICATIONS PRIOR TO DISCHARGE. PATIENT VERBALIZED UNDERSTANDING.
--- NOTE | 2024-03-24 14:29 | PEERSUPPORT ---
Peer Support Note Patient Information Patient Information: DOS: 03/24/2024 ? Reason: ETOH/AUD Ps follow up ? Pt is preparing for discharge. He stated he is feeling much better and ready to be home. ? Ps shares personal experience relevant to priority of lifestyle change with hope gained and peace of mind to encourage priority of his sobriety. ? Pt is able to identify changes he has no option of being his drinking habits if he wants to prolong his life based on the past few months of his health. He confirms understanding of changes in his medication and added medicines showing interest in Naltrexone. ? Ps encourages him to take his medication daily as prescribed and directed in order to prevent relapse as part of a recovery focused plan. ? Ps provided list of local AA meetings in walking distance to his house. ? Pt is appreciative of support and care provided by [facility] staff and providers. ? Plan of Action: Refrain from drinking alcohol. Take medication as prescribed and directed. Weekly follow up phone calls with [facility] Peer support. Attend AA meetings Attend follow up appointments.
--- NOTE | 2024-03-26 11:56 | SW/DCPLANNER ---
Phoned patient x2. Left a message on both tries. Boo Loaiza
--- NOTE | 2024-03-30 18:14 | PEERSUPPORT ---
Peer Support Note Patient Information Patient Information: DOS: 03/30/2024 ? Reason: ETOH Ps follow up post dc ? Pt stated he is doing well, only bought two beers and took a few sips of one. He says he knows it is not good for his health so keeping that in mind is helping him to not drink. Ps provided active listening then positive support for making mindful choices for his health. He said he was in tears when he got back home, as he was so thankful to have a home to go to and feel so supported and cared for. ? He is trying to remember to take his medication multiple times a day, and unsure of his follow up appointment dates. ? Ps? informed him of his follow up appointments: 04/01/2024 @[facility] Primary on [address] 04/07/2024@ [facility] Cardiology ? Ps and Pt discussed healthy eating and healthy actions through cooking at home being used for distractions and gratitude. ? Pt stated he has food [place] he can go to but does not. ? Ps encouraged him to plan a day to go and follow through with friend Alex for a day out of the house. ? Ps will look up food [place] local for details of date and times for food. ?
--- NOTE | 2024-04-02 17:38 | PEERSUPPORT ---
Peer Support Note Patient Information Patient Information: DOS: 03/30/2024 ? Reason: ETOH Ps follow up post dc ? Pt stated he is doing well, only bought two beers and took a few sips of one. He says he knows it is not good for his health so keeping that in mind is helping him to not drink. Ps provided active listening then positive support for making mindful choices for his health. He said he was in tears when he got back home, as he was so thankful to have a home to go to and feel so supported and cared for. ? He is trying to remember to take his medication multiple times a day, and unsure of his follow up appointment dates. ? Ps? informed him of his follow up appointments: 04/01/2024 @[facility] Primary on [address] 04/07/2024@ [facility] Cardiology ? Ps and Pt discussed healthy eating and healthy actions through cooking at home being used for distractions and gratitude. ? Pt stated he has food [place] he can go to but does not. ? Ps encouraged him to plan a day to go and follow through with friend Alex for a day out of the house. ? Ps will look up food [place] local for details of date and times for food. ?
== END 2024-03-24 15:00 | disposition home or self-care (01) | DRG 291 ==
LOC: ER 21:53 → ICU 22:56 → 2ND 03-23 12:07
PROVIDERS: Nurse Practitioner Acute Care; Nurse Practitioner Family; Admitting Provider Student in an Organized Health Care Education/Training Program; Emergency Provider Emergency Medicine; Visit Provider Student in an Organized Health Care Education/Training Program
DX: I11.0 Hypertensive heart disease with heart failure (principal); G93.41 Metabolic encephalopathy; I50.33 Acute on chronic diastolic (congestive) heart failure; R57.0 Cardiogenic shock; I26.09 Other pulmonary embolism with acute cor pulmonale; R65.21 Severe sepsis with septic shock; F10.231 Alcohol dependence with withdrawal delirium; I48.20 Chronic atrial fibrillation, unspecified; N30.00 Acute cystitis without hematuria; I42.9 Cardiomyopathy, unspecified; K70.30 Alcoholic cirrhosis of liver without ascites; K21.9 Gastro-esophageal reflux disease without esophagitis; E03.9 Hypothyroidism, unspecified; F17.210 Nicotine dependence, cigarettes, uncomplicated; E87.6 Hypokalemia; E83.51 Hypocalcemia; E83.42 Hypomagnesemia; E83.39 Other disorders of phosphorus metabolism; K76.0 Fatty (change of) liver, not elsewhere classified; Z79.899 Other long term (current) drug therapy; Z79.01 Long term (current) use of anticoagulants; Z79.84 Long term (current) use of oral hypoglycemic drugs; L89.159 Pressure ulcer of sacral region, unspecified stage; Z91.128 Patient's intentional underdosing of medication regimen for other reason
CPT/HCPCS: 36415; 70450; 70496; 70498; 71045; 71275; 74177; 80048; 80053; 80061; 80162; 80307; 81001; 82140; 82330; 82550; 82553; 82607; 82746; 82803; 82962; 83036; 83605; 83690; 83735; 83880; 84100; 84145; 84436; 84439; 84443; 84484; 85007; 85025; 85378; 85610; 85651; 85730; 86140; 86803; 87040; 87081; 87086; 87389; 87633; 93005; 93306; 93308; 97163; 97166; 97530; 99291; 99292; J1160; J1650; J1939; J2060; J2260; J2543; J3370; J3372; J3411; J3475; J3480; J7120; Q9957; Q9967

== ENCOUNTER 2024-05-12 20:48 | Emergency (ER) | payer MEDICAID, SELFPAY ==
[2024-05-12] VITALS (14 sets, daily range): BP systolic 136–167; BP diastolic 98–133; PULSE 126–146; RESP 11–22; TEMP 36.6; O2SAT 92–100; BMI 25.4
--- NOTE | 2024-05-12 20:36 | ECG_ITS ---
APPROVED REPORT Exam: Resting ECG HR:140 bpm ECG Measurements Heart Rate 140 AXES QRSd 144 QRS 99 QT 339 T 61 QTc 421 Conclusion ATRIAL FIBRILLATION WITH RAPID VENTRICULAR RESPONSE WITH ABERRANT CONDUCTION OR VENTRICULAR PREMATURE COMPLEXES RIGHT BUNDLE BRANCH BLOCK Electronically signed by : LICHA AGARWAL, 05/12/2024 23:12:06
--- NOTE | 2024-05-12 20:47 | XR_ITS ---
PROCEDURE INFORMATION: Exam: XR Chest Exam date and time: 05/12/2024 8:47 PM Age: 59 years old Clinical indication: Injury or trauma; Fall; Blunt trauma (contusions or hematomas); Additional info: Fall/trauma TECHNIQUE: Imaging protocol: Radiologic exam of the chest. Views: 1 view. COMPARISON: CT ANGIO CHEST PE PROTOCOL 03/18/2024 8:45 PM FINDINGS: Lungs: No evidence of airspace infiltrate. No pulmonary edema. Pleural spaces: No visible pleural effusion. No pneumothorax. Heart/Mediastinum: Cardiomediastinal silouhette is unchanged from prior exam comminuted mildly enlarged cardiac silhouette and bulky calcified mediastinal lymph nodes. Bones/joints: No evidence of acute osseous abnormality. Multiple chronic rib fracture deformities noted. IMPRESSION: No acute findings.
--- NOTE | 2024-05-12 20:47 | XR_ITS ---
PROCEDURE INFORMATION: Exam: XR Pelvis Exam date and time: 05/12/2024 8:44 PM Age: 59 years old Clinical indication: Injury or trauma; Fall; Blunt trauma (contusions or hematomas); Left; Hip; Additional info: Trauma/fall/left hip pain TECHNIQUE: Imaging protocol: Radiologic exam of the pelvis. Views: 1 or 2 view. COMPARISON: CT ABDOMEN PELVIS W CON 03/18/2024 8:45 PM FINDINGS: Bones/joints: Acute comminuted peritrochanteric fracture involving both the greater and lesser trochanters with displacement and approximately 3 cm impaction. Left hip joint alignment is maintained. Pubic symphysis and bilateral sacroiliac joints are congruent. No other evidence of acute fracture in the pelvis. Soft tissues: Soft tissue edema surrounds the left hip joint. No evidence of large soft tissue hematoma. IMPRESSION: Acute comminuted peritrochanteric fracture in the proximal left femur.
[2024-05-12] MEDS: MORPHINE 2MG/ML SYRINGE 2 MG IV ×3 (20:50→22:35)
--- NOTE | 2024-05-12 20:50 | XR_ITS ---
PROCEDURE INFORMATION: Exam: XR Left Femur Exam date and time: 05/12/2024 8:50 PM Age: 59 years old Clinical indication: Injury or trauma; Fall; Blunt trauma; Hip; Left; Additional info: Fall/trauma TECHNIQUE: Imaging protocol: Radiologic exam of the left femur. Views: 2 views. COMPARISON: CR XR FEMUR LT 2V 05/12/2024 8:50 PM FINDINGS: Bones/joints: Acute pertrochanteric fracture in the proximal left femur. No other acute fracture in the femur hip and knee joint remains congruent. Soft tissues: Unremarkable. IMPRESSION: Acute pertrochanteric fracture in the proximal left femur.
--- NOTE | 2024-05-12 20:50 | CT_ITS ---
PROCEDURE INFORMATION: Exam: CT Cervical Spine Without Contrast Exam date and time: 05/12/2024 9:21 PM Age: 59 years old Clinical indication: Injury or trauma TECHNIQUE: Imaging protocol: Computed tomography of the cervical spine without contrast. Radiation optimization: All CT scans at this facility use at least one of these dose optimization techniques: automated exposure control; mA and/or kV adjustment per patient size (includes targeted exams where dose is matched to clinical indication); or iterative reconstruction. COMPARISON: CT CERVICAL SPINE WO CON 06/25/2023 5:23 PM FINDINGS: Limitations: The study is mildly limited due to patient motion artifact. This predominantly affects the C2-C3 level. Bones: Bone mineralization is decreased, suggestive of osteopenia. No definite acute cervical spine fracture is identified. There is straightening of the normal cervical lordosis. Mild degenerative changes of the cervical spine are present. There is no definite severe spinal canal stenosis. Lungs: The lung apices are clear. Soft tissues: Unremarkable. IMPRESSION: 1. No acute abnormality. 2. Chronic findings as discussed above.
--- NOTE | 2024-05-12 20:51 | CT_ITS ---
PROCEDURE INFORMATION: Exam: CT Thoracic Spine Without Contrast Exam date and time: 05/12/2024 9:23 PM Age: 59 years old Clinical indication: Injury or trauma TECHNIQUE: Imaging protocol: Computed tomography of the thoracic spine without contrast. Radiation optimization: All CT scans at this facility use at least one of these dose optimization techniques: automated exposure control; mA and/or kV adjustment per patient size (includes targeted exams where dose is matched to clinical indication); or iterative reconstruction. COMPARISON: CT CERVICAL SPINE WO CON 05/12/2024 9:21 PM FINDINGS: Bones/joints: No evidence of acute fracture or malalignment. Chronic osteoporotic type compression fractures involving the superior endplates of T3 and T4 with minor vertebral body height loss. Bones are poorly mineralized. Soft tissues: Unremarkable. IMPRESSION: 1. No evidence of acute osseous abnormality in the thoracic spine. 2. Chronic osteoporotic type compression fractures involving the superior endplates of T3 and T4 with minor vertebral body height loss.
--- NOTE | 2024-05-12 20:51 | CT_ITS ---
PROCEDURE INFORMATION: Exam: CT Lumbar Spine Without Contrast Exam date and time: 05/12/2024 9:25 PM Age: 59 years old Clinical indication: Injury or trauma TECHNIQUE: Imaging protocol: Computed tomography of the lumbar spine without contrast. Radiation optimization: All CT scans at this facility use at least one of these dose optimization techniques: automated exposure control; mA and/or kV adjustment per patient size (includes targeted exams where dose is matched to clinical indication); or iterative reconstruction. COMPARISON: CT LUMBAR SPINE WO CON 06/25/2023 5:27 PM FINDINGS: Bones/joints: There are 5 [id number] vertebral bodies in the lumbar spine. Chronic compression fracture deformities at L1 and L3. No evidence of acute fracture or malalignment. Severe degenerative disc disease from L4-S1. Hemilaminectomy incidentally noted on the right at L5. Soft tissues: Unremarkable. IMPRESSION: No evidence of acute osseous abnormality in the lumbar spine.
--- NOTE | 2024-05-12 20:51 | CT_ITS ---
PROCEDURE INFORMATION: Exam: CT Head Without Contrast Exam date and time: 05/12/2024 9:18 PM Age: 59 years old Clinical indication: Injury or trauma; Additional info: Fall, head trauma TECHNIQUE: Imaging protocol: Computed tomography of the head without contrast. Radiation optimization: All CT scans at this facility use at least one of these dose optimization techniques: automated exposure control; mA and/or kV adjustment per patient size (includes targeted exams where dose is matched to clinical indication); or iterative reconstruction. COMPARISON: CT HEAD/BRAIN WO CON 03/18/2024 8:34 PM FINDINGS: Brain: There is no acute intracranial hemorrhage, mass effect, or midline shift. Mild advanced for age cerebral and cerebellar substance loss is noted. Cerebral ventricles: No hydrocephalus. Paranasal sinuses: There is mild mucosal thickening noted within the paranasal sinuses. Mastoid air cells: The mastoid air cells are clear. Orbital cavities: The orbital structures are unremarkable. Bones: Unremarkable. No acute fracture. Soft tissues: Unremarkable. IMPRESSION: 1. No acute intracranial abnormality. 2. Mild advanced for age substance loss.
--- NOTE | 2024-05-12 20:53 | ED_ITS ---
Discharge Plan Disposition Patient Disposition: Xfer Other Condition: Fair Prescriptions Prescriptions: No Action digoxin 125 mcg (0.125 mg) tablet 250 mcg PO DAILY folic acid 1 mg tablet 1 mg PO DAILY Patient Comments: TAKE ONE TABLET BY MOUTH EVERY DAY ferrous sulfate 324 mg (65 mg iron) tablet,delayed release (DR/EC) 324 mg PO DAILY Patient Comments: TAKE ONE TABLET BY MOUTH THREE TIMES DAILY Eliquis 5 mg tablet 5 mg PO BID Patient Comments: TAKE ONE TABLET BY MOUTH TWICE DAILY Referrals Follow up/Referrals: Provider,Referral, MD [Primary Care Provider] - See instructions Clinical Impressions Clinical Impression: Atrial fibrillation with RVR, Alcohol intoxication, Fall, Femur fracture, left, Hypomagnesemia Stand Alone Forms Stand Alone Forms: Transfer Record - ED Print Language Print Language: Pakistani Discharge ED Provider: Lashell Rosenberg General Adult HPI <AMARILIS Best - Last Filed: 05/12/24 22:38> General Chief complaint: Fall Stated complaint: left hip pain Time Seen by Provider: 05/12/24 20:49 Mode of Arrival: EMS Source of Information: Patient Limitations: No Limitations History of Present Illness HPI narrative: 59-year-old male presents emergency department via EMS as a trauma alert, patient found down, level fall, denies striking head, denies any LOC, he is on anticoagulation therapy with Eliquis for atrial fibrillation, complaining of left hip pain, obvious deformity with internal rotation and shortening of the left hip, apparently patient has been drinking , all day, he states he drinks A fifth a day. States show drink around 8 AM this morning, patient dates he is on his porch when he is dog knocked me over , per EMS patient was down for 40 minutes , states that he was able to crawl to the house and get a phone and states he was only down for 15 to 20 minutes . Patient is with the intoxicated, a current everyday smoking, denies any other substance use, denies any headache, neck pain, chest pain, nausea vomiting constipation diarrhea no abdominal pain, no urinary type symptomatology, denies any other extremity pain, does admit thoracic spine pain, denies low back pain, denies neck pain. Was placed in c-collar for spinal precautions EMS, patient was tachycardic en route and found to be in atrial fibrillation, does have history of this, was placed on 2 L nasal cannula for comfort, SpO2 within normal limits, no tachypnea, patient is also given 30 mg IV Toradol and route for pain. The past medical history upon chart review is consistent with CHF, hypothyroidism, alcohol abuse, atrial fibrillation, COPD, anxiety, GERD, hypertension. Onset (ago): hour(s) Related Data Home Medications ?Medication ?Instructions ?Recorded ?Confirmed apixaban 5 mg tablet (Eliquis) 5 mg PO BID 03/19/24 05/12/24 ferrous sulfate 324 mg (65 mg 324 mg PO DAILY 03/19/24 05/12/24 iron) tablet,delayed release folic acid 1 mg tablet 1 mg PO DAILY 03/19/24 05/12/24 digoxin 125 mcg (0.125 mg) tablet 250 mcg PO DAILY 05/12/24 05/12/24 Allergies Allergy/AdvReac Type Severity Reaction Status Date / Time hydrochlorothiazide AdvReac Unknown Other Verified 01/15/24 14:31 [facility] <AMARILIS Best - Last Filed: 05/12/24 22:38> [facility] Disclaimer: The information contained in this section may have been updated after the patient was seen, as this information can be updated by other users. 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 Testicular swelling, right Hypertension Tobacco abuse Alcohol abuse Tobacco use Paroxysmal atrial fibrillation Alcoholism Anxiety GERD (gastroesophageal reflux disease) Laceration of finger, left, complicated COPD (chronic obstructive pulmonary disease) Pulmonary hypertension Cirrhosis, alcoholic CHF (congestive heart failure) Hypertension Atrial fibrillation with rapid ventricular response Exposure to COVID-19 virus Surgical History History of discectomy History of cardiac radiofrequency ablation Family History Other Cancer Hypertension Stroke Substance abuse Social History Smoking Status: Current every day smoker tobacco type: cigarettes packs per day: 2 alcohol intake: current alcohol intake frequency: 3 or more drinks per day substance use type: denies use current occupational status: employed Travel in the last 8 weeks: None household members: significant other housing: house 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 current occupational exposures/hazards: No caffeine: Yes Have you lived/traveled outside US in past 30 days?: No Contact w/someone who lives/traveled outside US past 30 days?: No Exposure to someone with infectious disease in past 14 days?: No Do you have a fever (greater than 100.4 F or 38 C)?: No Have you tested positive for COVID-19: No Exposed to someone with COVID-19 in past 14 days?: No Do you have a sore throat?: No Do you have a cough?: No Do you have any weakness?: No Do you have any diarrhea?: No Are you experiencing any unusual bleeding?: No Do you have any muscle aches/pain?: No Do you have any abdominal pain?: No Are you experiencing loss of taste or smell?: No Other Medical History Have you received the Flu Vaccine for this season: No Have you received the Pneumonia Vaccine: No <AMARILIS Best - Last Filed: 05/12/24 22:38> ROS Obtained: Yes All systems reviewed & no additional complaints except as documented Physical Exam <AMARILIS Best - Last Filed: 05/12/24 22:38> General General appearance: alert, in no apparent distress, appears intoxicated and other (Mostly intoxicated, GCS of 15 and is alert to person place and time, is in obvious pain/discomfort) Head Head exam: atraumatic and normocephalic Eye Eye exam: Present PERRL and EOMI ENT ENT exam: Present mucous membranes moist Neck Neck exam: Present normal inspection and other (C-collar/C-spine precautions were maintained) Chest Chest inspection: Present normal inspection and symmetric chest wall rise; Absent tenderness Respiratory Respiratory exam: Present normal lung sounds bilaterally and other (Airway intact, no tachypnea, no respiratory distress); Absent respiratory distress, wheezes or stridor Cardiovascular Cardiovascular exam: Present tachycardia and irregular rhythm; Absent regular rate or normal rhythm Abdominal Exam Abdominal exam: Present soft and distention; Absent tenderness, guarding, rigidity or trauma Comment: No obvious hematoma, no Chowdhury Gore sign, no reji's Sign Extremities Exam Extremities exam: Present tenderness and other (VS deformity/internal rotation and shortening of the left leg/hip, patient is otherwise neurovascular intact, pulses were able to be dopplered bilaterally dorsalis pedis, obvious open fracture, wrist pain to palpation to the left hip, but pelvis is stable to AP and lateral compression); Absent normal inspection or full ROM Back Exam Back exam: Present normal inspection Comment: Patient has negative paraspinal tenderness to palpation, negative spinal tenderness palpation of the thoracic spine, lumbar spine, step-offs or deformities, patient otherwise neurovascular intact. Neurological Exam Neurological exam: Present alert and oriented X3 Psychiatric Psychiatric exam: Present normal affect Skin Skin exam: Present warm, dry and other (Small abrasion/laceration to the left lateral aspect of the patient's knee, around the patella/upper tibia region) Medical Decision Making <AMARILIS Best - Last Filed: 05/12/24 22:38> Medical Records Medical records reviewed: Yes I reviewed the patient's medical records. Screening: Per USPSTF and CDC recommendations, given the prevalence of disease in our region, it is our hospital?s policy to screen for HIV and viral Hepatitis for all patients aged 18 and over and those with ongoing risk factors. Paul Inquiry Pt receiving controlled substance: Yes Paul was queried for this patient: No Risks and benefits of using a controlled substance: were discussed with pt by me Vital Signs: 05/12/24 20:49 05/12/24 21:00 05/12/24 21:09 Temperature 97.9 F 97.9 F Temperature Source Oral Oral Pulse Rate 129 H Pulse Rate [Left Dorsalis Pedis] 130 H Pulse Rate [Right Radial] 139 H 130 H Respiratory Rate 18 14 18 Blood Pressure 144/106 H Blood Pressure [Right Arm] 140/100 H 141/117 H Blood Pressure Mean Blood Pressure Mean [Right Arm] 113 125 Blood Pressure Source [Right Arm] Manual Cuff/ Auscultation Automatic Cuff Blood Pressure Position [Right Arm] Supine 02 Sat by Pulse Oximetry 92 L 100 92 L Oxygen Delivery Method Room Air Room Air Oxygen Flow Rate (LPM) 0 05/12/24 21:32 05/12/24 21:45 05/12/24 22:00 Temperature Temperature Source Pulse Rate 140 H 141 H 141 H Pulse Rate [Left Dorsalis Pedis] Pulse Rate [Right Radial] Respiratory Rate 14 15 14 Blood Pressure Blood Pressure [Right Arm] Blood Pressure Mean Blood Pressure Mean [Right Arm] Blood Pressure Source [Right Arm] Blood Pressure Position [Right Arm] 02 Sat by Pulse Oximetry 98 100 98 Oxygen Delivery Method Oxygen Flow Rate (LPM) 05/12/24 22:01 05/12/24 22:01 05/12/24 22:15 Temperature Temperature Source Pulse Rate 146 H 143 H Pulse Rate [Left Dorsalis Pedis] Pulse Rate [Right Radial] Respiratory Rate 22 13 Blood Pressure 146/107 H Blood Pressure [Right Arm] Blood Pressure Mean 114 Blood Pressure Mean [Right Arm] Blood Pressure Source [Right Arm] Blood Pressure Position [Right Arm] 02 Sat by Pulse Oximetry 98 99 Oxygen Delivery Method Oxygen Flow Rate (LPM) Lab Data Lab results reviewed: Yes I reviewed the patient's lab results. Lab Results 05/12/24 20:40: WBC 5.8, RBC 3.45 L, Hgb 12.1 L, Hct 36.7 L, MCV 106.4 H, MCH 35.1 H, MCHC 33.0, RDW 17.7 H, Plt Count 234, MPV 9.7, Neut % (Auto) 44.8, Lymph % (Auto) 40.2, [place] % (Auto) 7.9, Eos % (Auto) 3.1, Baso % (Auto) 3.8 H, Neut # (Auto) 2.6, Lymph # (Auto) 2.3, [place] # (Auto) 0.5, Eos # (Auto) 0.2, Baso # (Auto) 0.2, Sodium 135 L, Potassium 4.8, Chloride 105, Carbon Dioxide 20 L, Anion Gap 14.8, BUN 12, Creatinine 1.20, Estimated Creat Clear 80, Estimated GFR 62, Est GFR ( Amer) 75, Glucose 113 H, Lactate 3.2 H, Calcium 8.2 L, M agnesium 1.4 L, Total Bilirubin 0.4, AST 97 H, ALT 31, Alkaline Phosphatase 262 H, Total Creatine Kinase 129, Troponin I < 0.01, NT-Pro-B Natriuret Pep 3450 H, Total Protein 6.2 L, Albumin 3.3 L, Globulin 2.9, Albumin/Globulin Ratio 1.1, Lipase 171, Plasma/Serum Alcohol 344 H 05/12/24 20:40 05/12/24 20:40 Orders (Tests/Meds): ED MEDICATIONS Generic Name Dose Route Start Last Admin Trade Name Freq PRN Reason Stop Dose Admin Digoxin 125 mcg 05/12/24 22:35 Digoxin 0.25mg/Ml 2ml Ampul IV 05/12/24 22:36 ONCE ONE Magnesium Sulfate 2 gm in 50 mls @ 50 mls/hr 05/12/24 22:23 Magnesium Sulfate 2gm/50ml Premix IV 05/12/24 23:22 ONCE ONE Lactated Ringer's 1,000 mls @ 999 mls/hr 05/12/24 22:23 Lactated Ringer's 1000 Ml Bag IV 05/12/24 23:23 .Q1H1M ONE Discontinued Medications Generic Name Dose Route Start Last Admin Trade Name Freq PRN Reason Stop Dose Admin Morphine Sulfate 2 mg 05/12/24 20:48 05/12/24 20:50 Morphine 2mg/Ml Syringe IV 05/12/24 20:49 2 mg ONCE ONE Administration Morphine Sulfate 2 mg 05/12/24 21:18 05/12/24 21:22 Morphine 2mg/Ml Syringe IV 05/12/24 21:19 2 mg ONCE ONE Administration Morphine Sulfate 2 mg 05/12/24 22:29 Morphine 2mg/Ml Syringe IV 05/12/24 22:30 ONCE ONE ORDERS Category Date Time Status CT bony pelvis Stat Cat Scan 05/12/24 21:[address] cervical spine wo con Stat Cat Scan 05/12/24 20:[address] head/brain wo con Stat Cat Scan 05/12/24 20:[address] lumbar spine wo con Stat Cat Scan 05/12/24 20:[address] thoracic spine wo con Stat Cat Scan 05/12/24 20:51 Completed Femur XR left 2 views [XR femur LT 2V] Stat Exams 05/12/24 20:50 Completed POCUS Point of Care (ER Only) Stat Exams 05/12/24 20:38 Completed Pelvis XR 1-2 views [XR pelvis 1-2V] Stat Exams 05/12/24 20:47 Completed XR chest portable Stat Exams 05/12/24 20:47 Completed CK [Creatine Kinase] Stat Lab 05/12/24 20:40 Completed Complete Blood Count Auto Diff Stat Lab 05/12/24 20:40 Completed Comprehensive Metabolic Panel Stat Lab 05/12/24 20:40 Completed Ethyl Alcohol Stat Lab 05/12/24 20:40 Completed Lactic Acid Stat Lab 05/12/24 20:40 Completed Lipase Stat Lab 05/12/24 20:40 Completed Magnesium Stat Lab 05/12/24 20:40 Completed NT Pro Brain Natriuretic Pep. Stat Lab 05/12/24 20:40 Completed Troponin I Q3H Lab 05/12/24 23:51 Ordered Troponin I Q3H Lab 05/13/24 02:51 Ordered Troponin I Stat Lab 05/12/24 20:40 Completed Medical Decision Narrative: 59-year-old male presents emergency department for a trauma/fall, complaining of left hip pain, differential diagnose include but limited to, femur fracture, pelvic fracture, rib fracture, superficial scalp hematoma, acute SDH, traumatic SAH, closed head injury, intrathoracic trauma, abdominal trauma, acute intoxication, cardiac arrhythmia, electrolyte disturbance, C-spine fracture, T- spine fracture, L-spine fracture, other sprain/strain. I discussed patient case with the attending physician Dr. Rosenberg Will obtain basic laboratory studies, ethyl alcohol level, lactic acid level, lipase, magnesium level proBNP troponin, CK level, EKG, chest x-ray, pelvic x- ray and femur x-ray on the left, will give 2 mg IV morphine for pain, and CT head without contrast, CT cervical spine, thoracic spine or lumbar spine, and CT pelvis without contrast for further evaluation as characterization, will perform bedside POCUS/FAST exam, will give 1 L LR IV. Bedside POCUS/eFAST exam was performed by self and the attending physician, negative FAST exam for thoracic cavity and abdominal cavities. CBC noted for 3 cytopenia at 3.45, hemoglobin is 12.1, hematocrit is 36.1, MCV is elevated at 106.4 this appears to be chronic anemia Was notified by nursing staff that the patient is complaining of left hip pain however in the CT scanner, will give 2 mg IV morphine additional dose so patient can tolerate imaging/trauma scans. CMP is notable for attic acidosis at 3.2, could be with alcohol consumption, mild hypocalcemia at 8.2, mild hypomagnesia 1.4, AST is elevated at 97, ALT is within normal limits, ALP is elevated at 262, total CK is within normal limits hypoalbuminemia noted 3.3, lipase within normal limits. Will give 2 mg IV magnesium for magnesium. Troponin is within normal limits at less than 0.01, proBNP is mildly elevated at 3450. Alcohol level is evaded at 344. Reviewed the patient's CT head without contrast along the corresponding radiologic report no acute intracranial abnormality, mild advanced for age substance loss. Reviewed the patient's CT cervical spine without contrast along the corresponding radiologic report no acute abnormality, chronic findings as discussed above.Reviewed the patient's left femur x-ray along the corresponding radiologic report, acute peritrochanteric fracture of the proximal left femur. After review patient's C-spine, C-spine precautions were discontinued/c-collar was discontinued. I reviewed the patient's CT lumbar spine without contrast along the corresponding radiologic report no evidence of acute osseous abnormality in the lumbar spine. I reviewed the patient's CT pelvis without contrast on the corresponding radiologic report acute comminuted peritrochanteric fracture of the proximal left femur. Discussed this patient's case with the [facility] transfer center physician , approximately 10:23 PM, she is agreement with current transfer plan/treatment plan for acute left femur fracture in the setting of trauma, patient will be transferred [facility] ED to ED transfer. Patient is in agreement with current treatment plan/transfer plan. Patient is still in quite significant pain, will give additional dose of 2 mg IV morphine, I considered rate control, because the patient came in with atrial fibrillation with RVR, currently tachycardic Luke EKG shows atrial fibrillation with RVR, I do think this is primarily in the setting of noncompliance, pain with ongoing left femur fracture, and also in the setting of alcohol use. Reviewed the patient's CT thoracic spine without contrast along the corresponding radiologic report no evidence of acute osseous abnormality in thoracic spine, chronic osteoporotic type compression fracture involving the superior endplates T3-T4 with minor T4 body height loss. Patient persistently in atrial fibrillation with RVR, patient tells me he has been noncompliant with his digoxin therapy, will give him 125 mg IV digoxin, patient is prescribed 250 mg p.o. digoxin daily at home. I discussed this patient's case with the attending physician at shift change, she will be assuming remainder the patient's care/workup, workup is pending transfer to [facility] for left femur fracture. <Lashell Rosenberg, - Last Filed: 05/12/24 22:42> Vital Signs: 05/12/24 20:49 05/12/24 21:00 05/12/24 21:09 Temperature 97.9 F 97.9 F Temperature Source Oral Oral Pulse Rate 129 H Pulse Rate [Left Dorsalis Pedis] 130 H Pulse Rate [Right Radial] 139 H 130 H Respiratory Rate 18 14 18 Blood Pressure 144/106 H Blood Pressure [Right Arm] 140/100 H 141/117 H Blood Pressure Mean Blood Pressure Mean [Right Arm] 113 125 Blood Pressure Source [Right Arm] Manual Cuff/ Auscultation Automatic Cuff Blood Pressure Position [Right Arm] Supine 02 Sat by Pulse Oximetry 92 L 100 92 L Oxygen Delivery Method Room Air Room Air Oxygen Flow Rate (LPM) 0 05/12/24 21:32 05/12/24 21:45 05/12/24 22:00 Temperature Temperature Source Pulse Rate 140 H 141 H 141 H Pulse Rate [Left Dorsalis Pedis] Pulse Rate [Right Radial] Respiratory Rate 14 15 14 Blood Pressure Blood Pressure [Right Arm] Blood Pressure Mean Blood Pressure Mean [Right Arm] Blood Pressure Source [Right Arm] Blood Pressure Position [Right Arm] 02 Sat by Pulse Oximetry 98 100 98 Oxygen Delivery Method Oxygen Flow Rate (LPM) 05/12/24 22:01 05/12/24 22:01 05/12/24 22:15 Temperature Temperature Source Pulse Rate 146 H 143 H Pulse Rate [Left Dorsalis Pedis] Pulse Rate [Right Radial] Respiratory Rate 22 13 Blood Pressure 146/107 H Blood Pressure [Right Arm] Blood Pressure Mean 114 Blood Pressure Mean [Right Arm] Blood Pressure Source [Right Arm] Blood Pressure Position [Right Arm] 02 Sat by Pulse Oximetry 98 99 Oxygen Delivery Method Oxygen Flow Rate (LPM) Lab Data Lab Results 05/12/24 20:40: WBC 5.8, RBC 3.45 L, Hgb 12.1 L, Hct 36.7 L, MCV 106.4 H, MCH 35.1 H, MCHC 33.0, RDW 17.7 H, Plt Count 234, MPV 9.7, Neut % (Auto) 44.8, Lymph % (Auto) 40.2, [place] % (Auto) 7.9, Eos % (Auto) 3.1, Baso % (Auto) 3.8 H, Neut # (Auto) 2.6, Lymph # (Auto) 2.3, [place] # (Auto) 0.5, Eos # (Auto) 0.2, Baso # (Auto) 0.2, Sodium 135 L, Potassium 4.8, Chloride 105, Carbon Dioxide 20 L, Anion Gap 14.8, BUN 12, Creatinine 1.20, Estimated Creat Clear 80, Estimated GFR 62, Est GFR ( Amer) 75, Glucose 113 H, Lactate 3.2 H, Calcium 8.2 L, M agnesium 1.4 L, Total Bilirubin 0.4, AST 97 H, ALT 31, Alkaline Phosphatase 262 H, Total Creatine Kinase 129, Troponin I < 0.01, NT-Pro-B Natriuret Pep 3450 H, Total Protein 6.2 L, Albumin 3.3 L, Globulin 2.9, Albumin/Globulin Ratio 1.1, Lipase 171, Plasma/Serum Alcohol 344 H Orders (Tests/Meds): ED MEDICATIONS Generic Name Dose Route Start Last Admin Trade Name Freq PRN Reason Stop Dose Admin Digoxin 125 mcg 05/12/24 22:35 Digoxin 0.25mg/Ml 2ml Ampul IV 05/12/24 22:36 ONCE ONE Magnesium Sulfate 2 gm in 50 mls @ 50 mls/hr 05/12/24 22:23 Magnesium Sulfate 2gm/50ml Premix IV 05/12/24 23:22 ONCE ONE Lactated Ringer's 1,000 mls @ 999 mls/hr 05/12/24 22:23 Lactated Ringer's 1000 Ml Bag IV 05/12/24 23:23 .Q1H1M ONE Discontinued Medications Generic Name Dose Route Start Last Admin Trade Name Freq PRN Reason Stop Dose Admin Morphine Sulfate 2 mg 05/12/24 20:48 05/12/24 20:50 Morphine 2mg/Ml Syringe IV 05/12/24 20:49 2 mg ONCE ONE Administration Morphine Sulfate 2 mg 05/12/24 21:18 05/12/24 21:22 Morphine 2mg/Ml Syringe IV 05/12/24 21:19 2 mg ONCE ONE Administration Morphine Sulfate 2 mg 05/12/24 22:29 Morphine 2mg/Ml Syringe IV 05/12/24 22:30 ONCE ONE ORDERS Category Date Time Status CT bony pelvis Stat Cat Scan 05/12/24 21:[address] cervical spine wo con Stat Cat Scan 05/12/24 20:[address] head/brain wo con Stat Cat Scan 05/12/24 20:[address] lumbar spine wo con Stat Cat Scan 05/12/24 20:[address] thoracic spine wo con Stat Cat Scan 05/12/24 20:51 Completed Femur XR left 2 views [XR femur LT 2V] Stat Exams 05/12/24 20:50 Completed POCUS Point of Care (ER Only) Stat Exams 05/12/24 20:38 Completed Pelvis XR 1-2 views [XR pelvis 1-2V] Stat Exams 05/12/24 20:47 Completed XR chest portable Stat Exams 05/12/24 20:47 Completed CK [Creatine Kinase] Stat Lab 05/12/24 20:40 Completed Complete Blood Count Auto Diff Stat Lab 05/12/24 20:40 Completed Comprehensive Metabolic Panel Stat Lab 05/12/24 20:40 Completed Ethyl Alcohol Stat Lab 05/12/24 20:40 Completed Lactic Acid Stat Lab 05/12/24 20:40 Completed Lipase Stat Lab 05/12/24 20:40 Completed Magnesium Stat Lab 05/12/24 20:40 Completed NT Pro Brain Natriuretic Pep. Stat Lab 05/12/24 20:40 Completed Troponin I Q3H Lab 05/12/24 23:51 Ordered Troponin I Q3H Lab 05/13/24 02:51 Ordered Troponin I Stat Lab 05/12/24 20:40 Completed ECG Data Tracing #1: I reviewed this ECG and interpreted as documented below: Atrial fibrillation with a ventricular to [address] changes concerning for STEMI. ECG initial impression date: 05/12/24 ECG initial impression time: 20:45 Tracing #2: I reviewed this ECG and interpreted as documented below: Atrial fibrillation with rapid ventricular response with a ventricular rate of 144 bpm. No STEMI ECG initial impression date: 05/12/24 ECG initial impression time: 22:36 Medical Decision Narrative: 59-year-old male presents emergency department for a trauma/fall, complaining of left hip pain, differential diagnose include but limited to, femur fracture, pelvic fracture, rib fracture, superficial scalp hematoma, acute SDH, traumatic SAH, closed head injury, intrathoracic trauma, abdominal trauma, acute intoxication, cardiac arrhythmia, electrolyte disturbance, C-spine fracture, T- spine fracture, L-spine fracture, other sprain/strain. I discussed patient case with the attending physician Dr. Rosenberg Will obtain basic laboratory studies, ethyl alcohol level, lactic acid level, lipase, magnesium level proBNP troponin, CK level, EKG, chest x-ray, pelvic x- ray and femur x-ray on the left, will give 2 mg IV morphine for pain, and CT head without contrast, CT cervical spine, thoracic spine or lumbar spine, and CT pelvis without contrast for further evaluation as characterization, will perform bedside POCUS/FAST exam, will give 1 L LR IV. Bedside POCUS/eFAST exam was performed by self and the attending physician, negative FAST exam for thoracic cavity and abdominal cavities. CBC noted for 3 cytopenia at 3.45, hemoglobin is 12.1, hematocrit is 36.1, MCV is elevated at 106.4 this appears to be chronic anemia Was notified by nursing staff that the patient is complaining of left hip pain however in the CT scanner, will give 2 mg IV morphine additional dose so patient can tolerate imaging/trauma scans. CMP is notable for attic acidosis at 3.2, could be with alcohol consumption, mild hypocalcemia at 8.2, mild hypomagnesia 1.4, AST is elevated at 97, ALT is within normal limits, ALP is elevated at 262, total CK is within normal limits hypoalbuminemia noted 3.3, lipase within normal limits. Will give 2 mg IV magnesium for magnesium. Troponin is within normal limits at less than 0.01, proBNP is mildly elevated at 3450. Alcohol level is evaded at 344. Reviewed the patient's CT head without contrast along the corresponding radiologic report no acute intracranial abnormality, mild advanced for age substance loss. Reviewed the patient's CT cervical spine without contrast along the corresponding radiologic report no acute abnormality, chronic findings as discussed above.Reviewed the patient's left femur x-ray along the corresponding radiologic report, acute peritrochanteric fracture of the proximal left femur. After review patient's C-spine, C-spine precautions were discontinued/c-collar was discontinued. I reviewed the patient's CT lumbar spine without contrast along the corresponding radiologic report no evidence of acute osseous abnormality in the lumbar spine. I reviewed the patient's CT pelvis without contrast on the corresponding radiologic report acute comminuted peritrochanteric fracture of the proximal left femur. Discussed this patient's case with the [facility] transfer center physician , approximately 10:23 PM, she is agreement with current transfer plan/treatment plan for acute left femur fracture in the setting of trauma, patient will be transferred [facility] ED to ED transfer. Patient is in agreement with current treatment plan/transfer plan. Patient is still in quite significant pain, will give additional dose of 2 mg IV morphine, I considered rate control, because the patient came in with atrial fibrillation with RVR, currently tachycardic Luke EKG shows atrial fibrillation with RVR, I do think this is primarily in the setting of noncompliance, pain with ongoing left femur fracture, and also in the setting of alcohol use. Reviewed the patient's CT thoracic spine without contrast along the corresponding radiologic report no evidence of acute osseous abnormality in thoracic spine, chronic osteoporotic type compression fracture involving the superior endplates T3-T4 with minor T4 body height loss. Patient persistently in atrial fibrillation with RVR, patient tells me he has been noncompliant with his digoxin therapy, will give him 125 mg IV digoxin, patient is prescribed 250 mg p.o. digoxin daily at home. I discussed this patient's case with the attending physician at shift change, she will be assuming remainder the patient's care/workup, workup is pending transfer to [facility] for left femur fracture. DO Chet: I was consulted by the MAURICIO, and we discussed the complexity of the problems being addressed. I approved the treatment and management plan for this patient's care in the emergency department, thus performing a substantive portion of the medical decision making. I was present at time of trauma alert activation performed E FAST exam, which was negative. Patient arrives in A-fib with RVR in the setting of noncompliance with his home digoxin, daily alcohol abuse, CHF. He reports he has not been taking his digoxin at all. Initially, we did not treat his A-fib with RVR given concerns could be secondary to traumatic injury, pain, alcohol intoxication, etc. Despite administration of a small bolus of IV fluids as well as IV magnesium and pain control, he continued to be tachycardic with heart rate in the 130s to 140s in A-fib with RVR on EKG. Given this, decision was made to administer small dose of digoxin IV. Diltiazem was considered, but the patient has advanced heart failure with an EF of 30% last June, probably worse now given his noncompliance. Trauma workup concerning for left peritrochanteric femoral fracture, but no other obvious traumatic injuries noted on head to toe exam or imaging. We do not have orthopedics on-call today, so we contacted . Patient was accepted there for transfer, EMS transport was arranged, and report was called. Patient was transferred in stable condition. Lashell Rosenberg DO Procedures <Lashell Rosenberg DO - Last Filed: 05/12/24 22:42> Limited Ultrasound Findings:: Limited EFAST ultrasound Indication: Blunt trauma Views: [LUQ, RUQ, Pelvis, Limited Cardiac, Limited Thoracic] Interpretation: Peritoneal Free Fluid: Absent Pericardial effusion: Absent Right thoracic free Fluid: Absent Left thoracic Free Fluid: Absent Right lung pneumothorax: Absent Left Lung pneumothorax: Absent Impression: Negative EFAST ultrasound Images were saved to permanent archive The study was technically adequate CPT 35690-82 (limited cardiac) 66537-69 (limited abdominal) 47864-64 (chest) This study was performed by me, and I personally interpreted all images/videos. Based on my clinical judgement, these images were adequate and did not necessitate further imaging. Critical Care <AMARILIS Best - Last Filed: 05/12/24 22:38> Critical Care Time Critical Care Time: No <Lashell Rosenberg DO - Last Filed: 05/12/24 22:42> Critical Care Time Critical Care Time: Yes Attestation: On 05/12/24, the high probability of a clinically significant, sudden or life threatening deterioration of the following system(s) required my full and direct attention, intervention and personal management. The time I documented below is in addition to time spent performing reported procedures but includes the following listed in this critical care notation. Total Time Total Critical Care Time: 45
--- NOTE | 2024-05-12 21:00 | PC.NURSE ---
2022 Trauma alert called 2024 patient arrival to room 4 2025 EKG done 2032 Glucose 112 2033 maula bp 140/100 2035 Positive pulse via doppler; 18 g IV placed in right hand 2038 FAST Exam started 2042 FAST exam negative 2043 radiology in room 2044 2mg morphine given
[2024-05-12 21:08] LABS: Albumin Level 3.3 g/dl (3.5-5.0); Chloride 105 mmol/L (98-107); Sodium 135 mmol/L (136-145)
[2024-05-12 21:09] LABS: Basophils # 0.2 K/mm3 (0-0.2); Basophils % 3.8 % (0.1-2.0); Eosinophils # 0.2 K/mm3 (0.0-0.4); Eosinophils % 3.1 % (0.1-12.0); Hematocrit 36.7 % (42.0-52.0); Hemoglobin 12.1 g/dL (14.1-18.0); Lymphocytes # 2.3 K/mm3 (0.7-4.5); Lymphocytes % 40.2 % (10-50); Mean Corpuscular Hemoglobin 35.1 pg (27.0-31.2); Mean Corpuscular Volume 106.4 fl (80-94); Mean Platelet Volume 9.7 fl (7.4-10.4); Monocytes # 0.5 K/mm3 (0.1-1.0); Monocytes % 7.9 % (1.7-9.3); Neutrophils # 2.6 K/mm3 (1.8-7.8); Neutrophils % 44.8 % (37.0-80.0); Platelet Count 234 K/mm3 (142-424); Potassium 4.8 mmoL/L (3.5-5.1); Red Blood Count 3.45 M/mm3 (4.60-6.20); Red Cell Distribution Width 17.7 % (11.5-17.5); White Blood Count 5.8 K/mm3 (4.8-10.8)
[2024-05-12 21:11] LABS: Alanine Aminotransferase 31 U/L (12-78); Albumin/Globulin Ratio 1.1 (1.1-1.8); Alkaline Phosphatase 262 U/L (38-126); Anion Gap 14.8 mEq/L (5-15); Aspartate Amino Transferase 97 U/L (17-59); Bilirubin,Total 0.4 mg/dl (0.2-1.3); Blood Urea Nitrogen 12 mg/dl (9-20); Carbon Dioxide 20 mmol/L (22.0-30.0); Creatine Kinase 129 U/L (55-170); Creatinine Clearance Estimated 80 mL/min (50-200); Estimated Glomerular Filt Rate 62 ml/min (>60); GFR (African American) 75 ML/MIN (>60); Globulin 2.9 g/dL (1.3-3.2); Total Protein,Serum 6.2 g/dl (6.3-8.2)
[2024-05-12 21:12] LABS: Calcium 8.2 mg/dl (8.4-10.2); Glucose 113 mg/dl (74-100); Lipase 171 U/L (23-300); Magnesium 1.4 mg/dl (1.6-2.3)
--- NOTE | 2024-05-12 21:15 | PC.NURSE ---
pt taken to rad by stretcher at this time
[2024-05-12 21:19] LABS: Lactic Acid 3.2 mmol/L (0.7-2.1)
[2024-05-12 21:21] LABS: NT Pro Brain Natriuretic Pep. 3450 pg/mL (0-125)
--- NOTE | 2024-05-12 21:25 | CT_ITS ---
PROCEDURE INFORMATION: Exam: CT Pelvis Without Contrast, Skeleton Exam date and time: 05/12/2024 9:28 PM Age: 59 years old Clinical indication: Injury or trauma; Additional info: Fall, trauma TECHNIQUE: Imaging protocol: Computed tomography of the pelvis without contrast. Exam focused on the skeleton. Radiation optimization: All CT scans at this facility use at least one of these dose optimization techniques: automated exposure control; mA and/or kV adjustment per patient size (includes targeted exams where dose is matched to clinical indication); or iterative reconstruction. COMPARISON: CT ABDOMEN PELVIS W CON 03/18/2024 8:45 PM FINDINGS: Tubes, catheters and devices: Stable appearance of prior right femur fixation with intramedullary femoral geovanna and cannulated cross-locking trochanteric nail. Bones/joints: Acute comminuted peritrochanteric fracture involving both the greater and lesser trochanters with displacement and approximately 3 cm impaction. Left hip joint alignment is maintained. Pubic symphysis and bilateral sacroiliac joints are congruent. No other evidence of acute fracture in the pelvis. Soft tissues: Soft tissue edema surrounds the left hip joint. No evidence of large soft tissue hematoma. IMPRESSION: Acute comminuted peritrochanteric fracture in the proximal left femur.
[2024-05-12 21:26] LABS: Troponin I < 0.01 ng/ml (0.00-0.034)
--- NOTE | 2024-05-12 21:31 | PC.NURSE ---
pt back from rad at this time
[2024-05-12 21:44] LABS: Ethyl Alcohol 344 mg/dl (0-10)
--- NOTE | 2024-05-12 22:14 | PC.NURSE ---
Called [facility] for a pt transfer
--- NOTE | 2024-05-12 22:27 | ECG_ITS ---
APPROVED REPORT Exam: Resting ECG HR:144 bpm ECG Measurements Heart Rate 144 AXES QRSd 134 QRS 91 QT 328 T 68 QTc 411 Conclusion ATRIAL FIBRILLATION WITH RAPID VENTRICULAR RESPONSE RIGHT BUNDLE BRANCH BLOCK [120+ ms QRS DURATION, UPRIGHT V1, 40+ ms S IN I/aVL/V4/V5/V6] ABNORMAL ECG Electronically signed by : ISAURO ALONZO, 05/14/2024 10:52:37
[2024-05-12] MEDS: LACTATED RINGERS 1000ML 1,000 ML 999 ML IV (22:36)
[2024-05-12] MEDS: MAGNESIUM SULFATE IN WATER 2 GM/50 ML PIGGYBACK IV (22:37)
[2024-05-12] MEDS: DIGOXIN 0.25MG/ML 2ML AMPUL 125 MCG IV (22:48)
== END 2024-05-12 23:19 | disposition other institution (70) ==
PROVIDERS: Physician Assistant; Emergency Provider Emergency Medicine
DX: S72.92XA Unspecified fracture of left femur, initial encounter for closed fracture (principal); I48.91 Unspecified atrial fibrillation; E83.42 Hypomagnesemia; F10.929 Alcohol use, unspecified with intoxication, unspecified; F17.210 Nicotine dependence, cigarettes, uncomplicated; M25.552 Pain in left hip; Y90.8 Blood alcohol level of 240 mg/100 ml or more; W18.39XA Other fall on same level, initial encounter; Y93.89 Activity, other specified; Y92.008 Other place in unspecified non-institutional (private) residence as the place of occurrence of the external cause
CPT/HCPCS: 51702; 70450; 71045; 72125; 72128; 72131; 72170; 72192; 73552; 80053; 80320; 82550; 83605; 83690; 83735; 83880; 84484; 85025; 93005; 96361; 96365; 96374; 96375; 96376; 99291; J1160; J2270; J3475; J7120

== ENCOUNTER 2024-07-16 17:43 | Inpatient (IN) | payer MEDICAID, SELFPAY ==
[2024-07-16] VITALS (10 sets, daily range): BP systolic 115–146; BP diastolic 91–105; PULSE 56–155; RESP 14–23; TEMP 36.6–37.2; O2SAT 92–100; BMI 29.0; BMI 34.1
--- NOTE | 2024-07-16 17:44 | ECG_ITS ---
APPROVED REPORT Exam: Resting ECG HR:151 bpm ECG Measurements Heart Rate 151 AXES QRSd 144 QRS 96 QT 314 T 57 QTc 400 Conclusion ATRIAL FIBRILLATION WITH RAPID VENTRICULAR RESPONSE RIGHT BUNDLE BRANCH BLOCK [120+ ms QRS DURATION, UPRIGHT V1, 40+ ms S IN I/aVL/V4/V5/V6] SEPTAL MYOCARDIAL INFARCTION , OF INDETERMINATE AGE [40+ ms Q WAVE IN V1/V2] No STEMI Electronically signed by : LICHA AGARWAL, 07/16/2024 23:37:09
--- NOTE | 2024-07-16 17:45 | XR_ITS ---
PROCEDURE INFORMATION: Exam: XR Chest Exam date and time: 07/16/2024 6:00 PM Age: 59 years old Clinical indication: Angina and other: Afib rvr, SOA, alcohol abuse TECHNIQUE: Imaging protocol: Radiologic exam of the chest. Views: 1 view. COMPARISON: CR XR CHEST PORTABLE 05/12/2024 8:47 PM FINDINGS: Lungs: Stable calcified granulomas in the medastinum and lungs. No consolidations. Pleural spaces: Unremarkable. No pleural effusion. No pneumothorax. Heart/Mediastinum: Mild cardiomegaly. Bones/joints: Unremarkable. IMPRESSION: No acute findings.
[2024-07-16 18:37] LABS: VBG Base Excess -6.1 mmol/L (-2.4-2.3); VBG HCO3 20.4 mmol/L (23-30); VBG PCO2 43.2 mmol/L (35-51); VBG PH 7.29 mmol/L (7.31-7.41); VBG PO2 47.1 mmol/L (28-40); VBG Total CO2 21.7 mmol/L (23-27)
[2024-07-16 18:40] LABS: Albumin Level 3.3 g/dl (3.5-5.0); Chloride 113 mmol/L (98-107); Potassium 3.7 mmoL/L (3.5-5.1); Sodium 143 mmol/L (136-145)
[2024-07-16 18:40] LABS: Lactate Venous 2.4 mmol/L (0.4-2.0)
[2024-07-16 18:42] LABS: Alanine Aminotransferase 17 U/L (12-78); Aspartate Amino Transferase 60 U/L (17-59); Blood Urea Nitrogen 9 mg/dl (9-20); Creatinine Clearance Estimated 102 mL/min (50-200); Estimated Glomerular Filt Rate 69 ml/min (>60); GFR (African American) 83 ML/MIN (>60)
[2024-07-16 18:43] LABS: Alkaline Phosphatase 369 U/L (38-126); Anion Gap 12.7 mEq/L (5-15); Bilirubin,Total 0.5 mg/dl (0.2-1.3); Calcium 7.9 mg/dl (8.4-10.2); Carbon Dioxide 21 mmol/L (22.0-30.0); Globulin 3.3 g/dL (1.3-3.2); Glucose 94 mg/dl (74-100); Magnesium 1.3 mg/dl (1.6-2.3); Phosphorous 2.8 mg/dl (2.5-4.5); Total Protein,Serum 6.6 g/dl (6.3-8.2)
[2024-07-16 18:49] LABS: Basophils # 0.2 K/mm3 (0-0.2); Basophils % 3.1 % (0.1-2.0); Eosinophils # 0.1 Kmm3 (0.0-0.4); Eosinophils % 1.3 % (0.1-12.0); Hematocrit 32.8 % (42.0-52.0); Immature Granulocytes # 0.02 10^3uL; Immature Granulocytes % 0.4 %; Lymphocytes % 35.4 % (10-50); Mean Corpuscular HGB Conc 30.5 g/dL (31.8-35.4); Mean Corpuscular Hemoglobin 28.3 pg (27.0-31.2); Mean Corpuscular Volume 92.9 fl (80-94); Mean Platelet Volume 11.1 fl (7.4-10.4); Monocytes # 0.7 K/mm3 (0.1-1.0); Monocytes % 11.7 % (1.7-9.3); Neutrophils # 2.7 K/mm3 (1.8-7.8); Neutrophils % 48.1 % (37.0-80.0); Nucleated Red Blood Cells # 0.04 10^3/uL; Nucleated Red Blood Cells % 0.7 %; Platelet Count 119 K/mm3 (142-424); Red Blood Count 3.53 M/mm3 (4.60-6.20); Red Cell Distribution Width 19.3 % (11.5-17.5); Red Cell Distribution Width-SD 64.1 fL; White Blood Count 5.6 K/mm3 (4.8-10.8)
--- NOTE | 2024-07-16 18:54 | PC.NURSE ---
SEIZURE PAD PLACED ON BED WHEN PT ARRIVED AT 17:43
[2024-07-16 18:57] LABS: Activated Partial Thrombo Time 28.6 seconds (22.8-30.6); INR 1.13 (0.9-1.1); Prothrombin Time 12.4 seconds (10.1-12.5)
[2024-07-16 19:00] LABS: T4 (Thyroxine) 3.7 ug/dl (5.53-11.0)
[2024-07-16 19:06] LABS: D-Dimer 3.63 ug/mL (0.0-0.5)
--- NOTE | 2024-07-16 19:09 | HMH.EDGENADL ---
Discharge Plan Disposition Patient Disposition: Admitted Condition: Fair Clinical Impressions Clinical Impression: Atrial fibrillation with RVR, Acute exacerbation of CHF (congestive heart failure), Alcohol abuse, Noncompliance with medications, Hypothyroidism, Hypomagnesemia, Pulmonary edema, Pleural effusion, Pancreatic abnormality Discharge ED Provider: Lashell Rosenberg General Adult HPI General Chief complaint: PAIN Stated complaint: Chest Pain Time Seen by Provider: 07/16/24 17:44 Mode of Arrival: EMS Source of Information: Patient and EMS Description of Symptoms (Recalled from ER Triage Doc. by RN): Patient presents to ED via [facility] with c/o of bilateral leg swelling and pain. Patient also drinks a fifth of Bry kulkarni daily. Patient states he had surgery a few months ago on his left leg. Bilateral swelling and redness present to legs. History of Present Illness HPI narrative: This patient is a 59-year-old male with a history of advanced heart failure with medication noncompliance, atrial fibrillation on digoxin, daily alcohol abuse drinking 1/5 of liquor every single day, tobacco abuse, COPD, pulmonary hypertension, alcoholic cirrhosis, and recent hip fracture (may) presented to the emergency department for evaluation with concern for leg swelling. He notes that his neighbor called EMS because of his leg swelling. He states that he had had his neighbor come over because his dog poop in the floor and he was unable to pick it up. He states that he could not bend over because of his bilateral hip pain as a result of the prior hip fractures, still in low back discomfort which has been chronic, and his bilateral leg swelling which has slowly been progressing over the last few months. He notes that since being discharged from the hospital after surgery for his hip fracture, he has not taken any of his medications, including his digoxin, blood thinner, or any other medications. He notes that he has been drinking 1/5 of alcohol every day, last drink just prior to arrival. He complains of mild low back pain with no radiation, no new numbness, tingling, saddle anesthesia or other concerns. He states he has bilateral leg swelling which has been progressively worsening and chronic. No fevers, cough, congestion, chest pain, abdominal pain, nausea, vomiting with changes of bowel movements. He does note that he has had some mild shortness of breath when he gets up and gets moving around but nothing out of the ordinary. EMS arrived at the patient and noted he was in A-fib with RVR en route Related Data Home Medications ?Medication ?Instructions ?Recorded ?Confirmed digoxin 125 mcg (0.125 mg) tablet 250 mcg PO DAILY 05/12/24 06/15/24 amiodarone 200 mg tablet 200 mg PO DAILY 07/16/24 07/16/24 bumetanide 1 mg tablet 1 mg PO BID 07/16/24 07/16/24 levothyroxine 125 mcg tablet 125 mcg PO DAILY 07/16/24 07/16/24 methocarbamol 750 mg tablet 750 mg PO QID 07/16/24 07/16/24 sertraline 100 mg tablet 100 mg PO DAILY 07/16/24 07/16/24 thiamine HCl (vitamin B1) 100 mg 100 mg PO DAILY 07/16/24 07/16/24 tablet Previous Rx's ?Medication ?Instructions ?Recorded apixaban 5 mg tablet (Eliquis) 5 mg PO BID #180 tabs 06/15/24 ferrous sulfate 324 mg (65 mg 324 mg PO DAILY #90 tabs 06/15/24 iron) tablet,delayed release folic acid 1 mg tablet 1 mg PO DAILY #90 tabs 06/15/24 hydrocodone 5 mg-acetaminophen 325 1 tab PO BID PRN pain #6 tabs 06/15/24 mg tablet metoprolol succinate 100 mg 100 mg PO DAILY #30 tabs 06/15/24 tablet,extended release 24 hr Allergies Allergy/AdvReac Type Severity Reaction Status Date / Time hydrochlorothiazide AdvReac Unknown Other Verified 06/15/24 10:14 [facility] Disclaimer: The information contained in this section may have been updated after the patient was seen, as this information can be updated by other users. 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 Testicular swelling, right Hypertension Tobacco abuse Alcohol abuse Tobacco use Paroxysmal atrial fibrillation Alcoholism Anxiety GERD (gastroesophageal reflux disease) Laceration of finger, left, complicated COPD (chronic obstructive pulmonary disease) Pulmonary hypertension Cirrhosis, alcoholic CHF (congestive heart failure) Hypertension Atrial fibrillation with rapid ventricular response Exposure to COVID-19 virus Surgical History History of discectomy History of cardiac radiofrequency ablation Family History Other Cancer Hypertension Stroke Substance abuse Social History (Updated 07/16/24 @ 22:53 by Yanet Iniguez RN) Smoking Status: Current every day smoker tobacco type: cigarettes packs per day: 2 alcohol intake: current alcohol intake frequency: 3 or more drinks per day substance use type: denies use current occupational status: employed Travel in the last 8 weeks?: None household members: significant other housing: house 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 current occupational exposures/hazards: No caffeine: Yes Have you lived/traveled outside [place] in past 30 days?: No Contact w/someone who lives/traveled outside [place] past 30 days?: No Exposure to someone with infectious disease in past 14 days?: No Do you have a fever (greater than 100.4 F or 38 C)?: No Have you tested positive for COVID-19?: No Exposed to someone with COVID-19 in past 14 days?: No Do you have a sore throat?: No Do you have a cough?: No Do you have any weakness?: No Are you experiencing any nausea/vomitting?: No Do you have any diarrhea?: No Are you experiencing any unusual bleeding?: No Do you have any muscle aches/pain?: No Do you have any abdominal pain?: No Are you experiencing loss of taste or smell?: No Other Medical History Have you received the Flu Vaccine for this season: No Have you received the Pneumonia Vaccine: No ROS Obtained: Yes All systems reviewed & no additional complaints except as documented Physical Exam General General appearance: alert and obese Head Head exam: atraumatic and normocephalic Eye Eye exam: Present normal appearance, PERRL and EOMI ENT ENT exam: Present normal exam, normal oropharynx, mucous membranes moist and normal external ear exam Neck Neck exam: Present normal inspection, full ROM and trachea midline; Absent tenderness Chest Chest inspection: Present normal inspection and symmetric chest wall rise; Absent tenderness Respiratory Respiratory exam: Present normal lung sounds bilaterally; Absent respiratory distress, wheezes, stridor or accessory muscle use Cardiovascular Cardiovascular exam: Present tachycardia and irregular rhythm Abdominal Exam Abdominal exam: Present soft and distention (Mild); Absent tenderness, guarding, rebound or rigidity Extremities Exam Extremities exam: Present full ROM, normal capillary refill, edema and other (Significant bilateral lower extremity edema with chronic skin changes of the bilateral lower leg); Absent tenderness Back Exam Back exam: Present normal inspection and full ROM; Absent tenderness Neurological Exam Neurological exam: Present alert, oriented X3, CN II-XII intact and other (Generally weak without any focal deficits); Absent motor sensory deficit Psychiatric Psychiatric exam: Present normal affect and normal mood Skin Skin exam: Present warm and dry Medical Decision Making Medical Records Medical records reviewed: Yes I reviewed the patient's medical records. Screening: Per USPSTF and CDC recommendations, given the prevalence of disease in our region, it is our hospital?s policy to screen for HIV and viral Hepatitis for all patients aged 18 and over and those with ongoing risk factors. Paul Inquiry Pt receiving controlled substance: No Vital Signs: 07/16/24 17:50 07/16/24 18:49 07/16/24 19:22 Temperature 98.9 F Temperature Source Oral Pulse Rate 155 H Pulse Rate [Right Brachial] 148 H Respiratory Rate 20 19 19 Blood Pressure 144/97 H 125/99 H Blood Pressure [Right Arm] 146/105 H Blood Pressure Mean [Right Arm] 118 Blood Pressure Source Blood Pressure Source [Right Arm] Automatic Cuff Blood Pressure Position Blood Pressure Position [Right Arm] Supine 02 Sat by Pulse Oximetry 97 100 Oxygen Delivery Method Room Air Room Air 07/16/24 19:37 07/16/24 19:57 07/16/24 20:25 Temperature Temperature Source Pulse Rate 146 H 56 L 146 H Pulse Rate [Right Brachial] Respiratory Rate 19 Blood Pressure 117/91 H 125/95 H 139/100 H Blood Pressure [Right Arm] Blood Pressure Mean [Right Arm] Blood Pressure Source Blood Pressure Source [Right Arm] Blood Pressure Position Blood Pressure Position [Right Arm] 02 Sat by Pulse Oximetry 94 L 92 L Oxygen Delivery Method 07/16/24 21:13 07/16/24 21:30 Temperature 98 F Temperature Source Oral Pulse Rate 113 H Pulse Rate [Right Brachial] 128 H Respiratory Rate 20 Blood Pressure 115/94 H Blood Pressure [Right Arm] Blood Pressure Mean [Right Arm] Blood Pressure Source Automatic Cuff Blood Pressure Source [Right Arm] Blood Pressure Position Supine Blood Pressure Position [Right Arm] 02 Sat by Pulse Oximetry 99 Oxygen Delivery Method Room Air Room Air Lab Data Lab results reviewed: Yes I reviewed the patient's lab results. Lab Results 07/16/24 17:47: VBG pH 7.29 L, VBG pCO2 43.2, VBG pO2 47.1 H, VBG HCO3 20.4 L, VBG Total CO2 21.7 L, VBG O2 Saturation 73.0 H, VBG Base Excess -6.1 L, VBG Lactic Acid 2.4 H 07/16/24 18:26: WBC 5.6, RBC 3.53 L, Hgb 10.0 L, Hct 32.8 L, MCV 92.9, MCH 28.3, MCHC 30.5 L, RDW 19.3 H, Plt Count 119 L, MPV 11.1 H, Neut % (Auto) 48.1, Lymph % (Auto) 35.4, [place] % (Auto) 11.7 H, Eos % (Auto) 1.3, Baso % (Auto) 3.1 H, Neut # (Auto) 2.7, Lymph # (Auto) 2.0, [place] # (Auto) 0.7, Eos # (Auto) 0.1, Baso # (Auto) 0.2, PT 12.4, INR 1.13 H, APTT 28.6, D-Dimer 3.63 H, Sodium 143, Potassium 3.7, Chloride 113 H, Carbon Dioxide 21 L, Anion Gap 12.7, BUN 9, Creatinine 1.10, Estimated Creat Clear 102, Estimated GFR 69, Est GFR ( Amer) 83, Glucose 94, Calcium 7.9 L, Phosphorus 2.8, Magnesium 1.3 L, Total Bilirubin 0.5, AST 60 H, ALT 17, Alkaline Phosphatase 369 H, NT-Pro-B Natriuret Pep 5230 H, Total Protein 6.6, Albumin 3.3 L, Globulin 3.3 H, Albumin/Globulin Ratio 1.0 L, Lipase 125, Vitamin B12 544, Folate 10.20, TSH 14.00 H, Thyroxine (T4) 3.7 L, Digoxin 0.40, Plasma/Serum Alcohol 337 H, HCV Ab NATALIE w/Rflx PCR Qn Negative, HIV Ag/Ab Combo Qual Negative 07/16/24 18:26 07/16/24 18:26 Orders (Tests/Meds): ED MEDICATIONS Generic Name Dose Route Start Last Admin Trade Name Car PRN Reason Stop Dose Admin Acetaminophen 650 mg 07/16/24 21:10 Acetaminophen 325mg Tab PO 08/15/24 21:09 Q4HP PRN Fever or Mild Pain (1-3) Hydrocodone Bitart/Acetaminophen 1 tab 07/16/24 21:10 07/16/24 22:37 Hydrocodone/Apap 5/325 Mg Tablet PO 08/15/24 21:09 1 tab Q4HP PRN Administration Mild to Moderate Pain (1-6) Diazepam 10 mg 07/16/24 17:59 Diazepam 10mg/2ml Syringe IV 08/15/24 17:58 Q1HP PRN CIWA >16 Diazepam 5 mg 07/16/24 17:59 Diazepam 5mg Tablet PO 08/15/24 17:58 Q1HP PRN CIWA Score 8-15 Diazepam 5 mg 07/16/24 17:59 Diazepam 5mg Tablet PO 08/15/24 17:58 Q6HP PRN CIWA 2-7 Folic Acid 1 mg 07/17/24 09:00 Folic Acid 1mg Tablet PO 08/16/24 08:59 DAILY RYAN Heparin Sodium (Porcine) 5,000 unit 07/17/24 09:00 Heparin Sodium 5,000 Unit/Ml Vial SUBCUT 08/16/24 08:59 TID RYAN Multivitamins 1 each 07/17/24 17:00 Multivitamin Tablet PO 08/16/24 16:59 1700 [facility] Thiamine HCl 100 mg 07/17/24 09:00 Thiamine 100mg Tablet PO 07/19/24 09:01 DAILY [facility] Discontinued Medications Generic Name Dose Route Start Last Admin Trade Name Car PRN Reason Stop Dose Admin Bumetanide 2 mg 07/16/24 19:40 07/16/24 20:04 Bumetanide 1mg/4ml Vial IV 07/16/24 19:41 2 mg ONCE ONE Administration Digoxin 125 mcg 07/16/24 18:56 07/16/24 19:16 Digoxin 0.25mg/Ml 2ml Ampul IV 07/16/24 18:57 125 mcg ONCE ONE Administration Digoxin 125 mcg 07/16/24 19:40 07/16/24 20:03 Digoxin 0.25mg/Ml 2ml Ampul IV 07/16/24 19:41 125 mcg ONCE ONE Administration Magnesium Sulfate 2 gm in 50 mls @ 50 mls/hr 07/16/24 18:56 07/16/24 19:16 Magnesium Sulfate 2gm/50ml Premix IV 07/16/24 19:55 50 mls/hr ONCE ONE Administration Iopamidol 70 ml 07/16/24 19:50 07/16/24 19:51 Iopamidol-370 (76%);100ml Bottle IV 07/16/24 19:51 70 ml ONCE ONE Administration Metoprolol Tartrate 50 mg 07/16/24 20:23 07/16/24 20:54 Metoprolol Tartrate 50mg Tablet PO 07/16/24 20:24 50 mg ONCE ONE Administration Metoprolol Tartrate 5 mg 07/16/24 20:23 07/16/24 20:54 Metoprolol Tartrate 5mg/5ml Vial IV 07/16/24 20:24 5 mg ONCE ONE Administration Metoprolol Tartrate 5 mg 07/16/24 22:20 07/16/24 22:32 Metoprolol Tartrate 5mg/5ml Vial IV 07/16/24 22:21 5 mg ONCE ONE Administration Sodium Chloride 50 ml 07/16/24 19:50 07/16/24 19:51 0.9 % Sodium Chloride 50 Ml Vial IV 07/16/24 19:51 50 ml ONCE ONE Administration Sodium Chloride 10 ml 07/16/24 19:50 07/16/24 19:51 Sodium Chloride 0.9% 10ml Syr (Rad Only) IV 07/16/24 19:51 10 ml ONCE ONE Administration ORDERS Category Date Time Status CT angio chest PE protocol Stat Cat Scan 07/16/24 19:31 Completed Cardiology Consult [Consult to Cardiology] [CONS] Cons 07/16/24 20:47 Active Routine Consult Blogs Manager [CONS] Routine Cons 07/16/24 18:05 Active CXR --portable [XR chest portable] Stat Exams 07/16/24 17:45 Completed POCUS Point of Care (ER Only) Stat Exams 07/16/24 18:04 Completed BNP [NT Pro Brain Natriuretic Pep.] Stat Lab 07/16/24 18:26 Completed Basic Metabolic Panel AMLAB Lab 07/17/24 06:00 Ordered Complete Blood Count Auto Diff AMLAB Lab 07/17/24 06:00 Ordered Complete Blood Count Auto Diff Stat Lab 07/16/24 18:26 Completed Comprehensive Metabolic Panel Stat Lab 07/16/24 18:26 Completed D-Dimer Stat Lab 07/16/24 18:26 Completed DIG [Digoxin] Stat Lab 07/16/24 18:26 Completed Ethyl Alcohol Stat Lab 07/16/24 18:26 Completed Folate Stat Lab 07/16/24 18:26 Completed HIV Combo Stat Lab 07/16/24 18:26 Completed Hepatitis C Ab Qual. W/ RFX Stat Lab 07/16/24 18:26 Completed Lipase Stat Lab 07/16/24 18:26 Completed MAG [Magnesium] Stat Lab 07/16/24 18:26 Completed Magnesium AMLAB Lab 07/17/24 06:00 Ordered PHOS [Phosphorous] Stat Lab 07/16/24 18:26 Completed PT INR [Prothrombin Time INR] Stat Lab 07/16/24 18:26 Completed PTT [Activated Partial Thrombo Time] Stat Lab 07/16/24 18:26 Completed Phosphorous AMLAB Lab 07/17/24 06:00 Ordered T4 (Thyroxine) Stat Lab 07/16/24 18:26 Completed TSH [Thyroid Stimulating Hormone] Stat Lab 07/16/24 18:26 Completed Transferrin Routine Lab 07/16/24 18:26 Received UA [Urinalysis and Microscopic] Stat Lab 07/16/24 21:40 Completed UDS [Drug Screen,Urine] Stat Lab 07/16/24 21:40 Completed Vitamin B1 Routine Lab 07/16/24 18:35 Received Vitamin B12 Stat Lab 07/16/24 18:26 Completed VBG [Venous Blood Gas] Stat RT 07/16/24 17:47 Completed ECG Data Tracing #1: I reviewed this ECG and interpreted as documented below: Atrial fibrillation with rapid ventricular response with a ventricular rate of 151 bpm. No acute STEMI ECG initial impression date: 07/16/24 ECG initial impression time: 17:46 Medical Decision Narrative: In summary, this patient is a 59-year-old male presenting to the Emergency Department for evaluation of leg swelling after his neighbor called EMS. Differential diagnoses considered include but are not limited to acute exacerbation of heart failure, A-fib with RVR, medication noncompliance, alcohol abuse, electrolyte derangements, PE, ACS among others. Ruling out the most morbid conditions drove assessment. It should be noted patient's history includes extensive cardiovascular disease with an EF less than 30% on last echo, A-fib with RVR, hypertension, hyperlipidemia, obesity, cirrhosis, CHF which are not at goal therapy. This complicates all aspects of care by increasing patient's risk for morbidity. Patient is noncompliant with his medications at home I reviewed patient's past medical records and noted prior evaluations in the past for similar issues. In May, he was seen here for alcohol intoxication, A-fib with RVR, and hip fracture for which he was transferred to . He was treated with digoxin at that time assess what he supposed to be taking at home. He has not been taking it at all.. On exam, the patient is sitting upright in no acute distress. He is in A-fib with RVR with a rate in the 150s to 160s and he is acutely intoxicated from alcohol, but he is afebrile. He has significant bilateral lower extremity swelling and chronic skin changes. He is generally weak without any focal neurologic deficits. workup included broad lab evaluation to evaluate for infectious, metabolic, cardiac causes of his current presentation as well as chest x-ray and EKG. EKG concerning for A-fib with RVR without acute STEMI. I independently interpreted chest x-ray prior to the radiologist read and noted small bilateral pleural effusion and some pulmonary edema. Please see their read for final interpretation. Labs were obtained that demonstrated significant elevation in D-dimer. He also has mild anemia. He has mild lactic acidosis with a very high ethanol level of greater than 300. BNP is elevated greater than 5000. Urinalysis is not concerning for infection. His liver enzymes and kidney function actually look okay. He does have hypomagnesemia, for which IV repletion was ordered. I also ordered thiamine, folate, other vitamin supplementation based on alcohol withdrawal modular. He also was put on CIWA protocol with medications ordered just to be on the safe side, though he is still acutely intoxicated at this time. Given A-fib with RVR, I tried IV digoxin x 2 with no improvement in his heart rate. I then tried 5 mg of IV metoprolol and 50 mg of p.o. metoprolol tartrate, with slight improvement in his heart rate to the 130s. He is not hypoxic or tachypneic, he is hypertensive as opposed to hypotensive. I am not finding any notable sources of infection on labs or workup so far. He does have a significant elevated D-dimer, so CT PE protocol was ordered. I independently interpreted this prior to radiology read and noted no large PE but he does have pulmonary edema and trace pleural effusions. Radiology also noted concern for pancreatic versus duodenal inflammation, so I added on a lipase. Ultimately, I feel the patient requires admission for A-fib with RVR, decompensated heart failure, and alcohol abuse. I had an interactive discussion with the hospitalist who admitted the patient in fair condition Procedures Limited Ultrasound Findings:: Limited cardiac ultrasound Indication: Shortness of breath, swelling Identified cardiac views: [-Cardiac parasternal long axis] [-Cardiac parasternal short axis] [-Cardiac apical four-chamber] [-Cardiac subxiphoid] Findings: [-Cardiac activity present -Gross wall motion difficult to assess given atrial fibrillation with rapid ventricular response -Pericardial effusion absent -Right heart strain absent] Impression: -[From above] Images were saved to permanent archive The study was technically adequate CPT: 39788 This study was performed by me, and I personally interpreted all images/videos. Based on my clinical judgement, these images were adequate and did not necessitate further imaging. Critical Care Critical Care Time Critical Care Time: Yes Attestation: On 07/16/24, the high probability of a clinically significant, sudden or life threatening deterioration of the following system(s) required my full and direct attention, intervention and personal management. The time I documented below is in addition to time spent performing reported procedures but includes the following listed in this critical care notation. Total Time Total Critical Care Time: 75
[2024-07-16] MEDS: DIGOXIN 0.25MG/ML 2ML AMPUL 125 MCG IV ×2 (19:16→20:03)
[2024-07-16] MEDS: MAGNESIUM SULFATE IN WATER 2 GM/50 ML PIGGYBACK IV (19:16)
[2024-07-16 19:25] LABS: Ethyl Alcohol 337 mg/dl (0-10)
[2024-07-16 19:31] LABS: HIV Combo NEGATIVE (Negative)
--- NOTE | 2024-07-16 19:31 | CT_ITS ---
PROCEDURE INFORMATION: Exam: CTA Chest With Contrast Exam date and time: 07/16/2024 7:49 PM Age: 59 years old Clinical indication: Shortness of breath; Additional info: Afib rvr, SOA, elevated dimer TECHNIQUE: Imaging protocol: Computed tomographic angiography of the chest with contrast. Exam focused on the arteries. 3D rendering (Not supervised by radiologist): MIP and/or 3D reconstructed images were created by the technologist. Radiation optimization: All CT scans at this facility use at least one of these dose optimization techniques: automated exposure control; mA and/or kV adjustment per patient size (includes targeted exams where dose is matched to clinical indication); or iterative reconstruction. Contrast material: ISOVUE 370; Contrast volume: 70 ml; Contrast route: INTRAVENOUS (IV); COMPARISON: CT ANGIO CHEST PE PROTOCOL 03/18/2024 8:45 PM FINDINGS: Pulmonary arteries: No central or segmental pulmonary arterial intraluminal filling defect identified. Aorta: No aortic aneurysm. No aortic dissection. Lungs: Mild interstitial prominence with mild pulmonary vasculature redistribution. Poorly defined right upper peribronchial opacities. Left upper lobar benign calcified pulmonary nodule. Pleural spaces: Tiny bilateral pleural effusions. Heart: Unremarkable. No cardiomegaly. No pericardial effusion. Lymph nodes: Bulky, benign calcified bilateral hilar and mediastinal lymph nodes without lymphadenopathy. Liver: Fatty liver infiltration. Pancreas: Faint peripancreatic/proximal duodenal fat stranding visualized abdomen. Bones/joints: Old right rib fractures. No acute fractures. No acute findings. Soft tissues: Unremarkable. IMPRESSION: 1. No central or segmental pulmonary arterial embolism identified. 2. CHF/pulmonary edema with pleural effusions. 3. Right upper lobar peribronchial infiltration. 4. Peripancreatic head/proximal duodenal inflammation. Query symptoms of pancreatitis/duodenitis. 5. Fatty liver infiltration.
[2024-07-16 19:39] LABS: Hepatitis C Ab Qual. W/ RFX NEGATIVE (Negative)
[2024-07-16 19:42] LABS: Vitamin B12 544 pg/mL (239-931)
[2024-07-16] MEDS: SODIUM CHLORIDE 0.9% 10ML SYR (RAD ONLY) 10 ML IV (19:51)
[2024-07-16] MEDS: 0.9 % SODIUM CHLORIDE 50 ML VIAL IV (19:51)
[2024-07-16] MEDS: IOPAMIDOL-370 (76%);100ML BOTTLE 70 ML IV (19:51)
[2024-07-16] MEDS: BUMETANIDE 1MG/4ML VIAL 2 MG IV (20:04)
[2024-07-16] MEDS: METOPROLOL TARTRATE 5MG/5ML VIAL 5 MG IV ×2 (20:54→22:32)
[2024-07-16] MEDS: METOPROLOL TARTRATE 50MG TABLET 50 MG PO (20:54)
[2024-07-16 21:05] LABS: NT Pro Brain Natriuretic Pep. 5230 pg/mL (0-125)
--- NOTE | 2024-07-16 21:26 | PC.NURSE ---
Called report to the floor for admission. Spoke with Yanet BURNETT
[2024-07-16 21:35] LABS: Lipase 125 U/L (23-300)
[2024-07-16 21:50] LABS: Microscopic, Urine URINE MICROSCOPIC (MICROSCOPIC)
[2024-07-16 21:56] LABS: Appearance,Urine CLEAR (Clear); Bilirubin,Urine Negative (Negative); Blood, Urine 1+ (Negative); Color,Urine YELLOW (Yellow); Glucose,Urine (UA) Negative (Negative); Ketones,Urine Negative (Negative); Leukocyte Esterase,Urine Negative (Negative); Nitrate,Urine Negative (Negative); Protein,Urine Negative (Negative); Urobilinogen,Urine 0.2 EU/dl (0.2)
[2024-07-16 22:07] LABS: Amphetamine/Metha Screen,Urine Negative ng/ml (<1000); Benzodiazepines Screen,Urine Negative ng/ml (<200)
[2024-07-16 22:08] LABS: Barbiturates Screen,Urine Negative ng/ml (<200)
[2024-07-16 22:09] LABS: Cannabinoid Screen,Urine Negative ng/ml (<50); Cocaine Screen,Urine Negative ng/ml (<300)
[2024-07-16 22:10] LABS: Methadone Screen,Urine Negative ng/ml (<300); Phencyclidine Screen,Urine Negative ng/ml (<25)
[2024-07-16 22:11] LABS: Opiate Screen,Urine Negative ng/ml (<300)
[2024-07-16] MEDS: HYDROCODONE/APAP 5/325 MG TABLET 1 TAB PO (22:37)
[2024-07-16 22:40] LABS: Reflex Lactic Add Lactic Reflex
[2024-07-16 23:15] LABS: Lactic Acid Follow Up (RFLX 1) 2.2 mmol/L (0.7-2.1)
--- NOTE | 2024-07-16 23:45 | P.HP_ITS ---
<Statement entered by Richie Parra MD - 07/17/24 08:22> Rounded on patient after nurse practitioner. Personally examined and interviewed patient. Agree with exam findings and care plan as documented. History of Present Illness *Admission Date: 07/16/24 *Reason for visit:: Lower extremity edema *History of present illness: This is a 59-year-old male with a past medical history of atrial fibrillation, alcohol abuse, HFpEF, hypothyroidism, COPD, recent hip fracture who presents emergency department today with complaints of lower extremity edema. Patient was brought to the emergency department by EMS after his neighbor called EMS for patient's lower extremity edema. He reports since being discharged from the hospital in May for his leg fracture he has not been taking his medications but does continue to drink. Medications that he states he has not been taking include digoxin, blood thinner or any other medications for his atrial fibrillation. Reports drinking 1/5 of alcohol a day and drank just prior to arrival. He reports mild shortness of breath but nothing outside of his baseline. Emergency Department workup notable for acute alcohol intoxication with alcohol level of 334. A-fib with RVR with heart rate in the 150s, although normal blood pressure. proBNP of 5000. TSH of 14. Normal white blood cell count. Chest imaging with CHF/pulmonary edema with pleural effusions. Right upper lobe peribronchial infiltration. Richard pancreatic head and duodenal inflammation although lipase negative. Cardiology was consulted for recommendations with A-fib with RVR with a history of noncompliance and systolic heart heart failure. Recommends oral metoprolol, intermittent IV push doses. May initiate esmolol drip if uncontrolled. If becomes decompensated, may start milrinone drip. At time of admission patient's heart rate is improved to 1 teens after oral and IV metoprolol. He is resting comfortably and stable. Denies any current significant complaints at this time. [facility] Disclaimer: The information contained in this section may have been updated after the patient was seen, as this information can be updated by other users. 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 Testicular swelling, right Hypertension Tobacco abuse Alcohol abuse Tobacco use Paroxysmal atrial fibrillation Alcoholism Anxiety GERD (gastroesophageal reflux disease) Laceration of finger, left, complicated COPD (chronic obstructive pulmonary disease) Pulmonary hypertension Cirrhosis, alcoholic CHF (congestive heart failure) Hypertension Atrial fibrillation with rapid ventricular response Exposure to COVID-19 virus Surgical History History of discectomy History of cardiac radiofrequency ablation Family History Other Cancer Hypertension Stroke Substance abuse Social History (Updated 07/16/24 @ 22:53 by Yanet Iniguez RN) Smoking Status: Current every day smoker tobacco type: cigarettes packs per day: 2 alcohol intake: current alcohol intake frequency: 3 or more drinks per day substance use type: denies use current occupational status: employed Travel in the last 8 weeks?: None household members: significant other housing: house 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 current occupational exposures/hazards: No caffeine: Yes Have you lived/traveled outside US in past 30 days?: No Contact w/someone who lives/traveled outside US past 30 days?: No Exposure to someone with infectious disease in past 14 days?: No Do you have a fever (greater than 100.4 F or 38 C)?: No Have you tested positive for COVID-19?: No Exposed to someone with COVID-19 in past 14 days?: No Do you have a sore throat?: No Do you have a cough?: No Do you have any weakness?: No Are you experiencing any nausea/vomitting?: No Do you have any diarrhea?: No Are you experiencing any unusual bleeding?: No Do you have any muscle aches/pain?: No Do you have any abdominal pain?: No Are you experiencing loss of taste or smell?: No Other Medical History Have you received the Flu Vaccine for this season: No Have you received the Pneumonia Vaccine: No Review of Systems Review of Systems Review of systems:: pertinent systems reviewed and negative unless documented below Review of systems (narrative): Negative except for HPI Meds Home Medications and Allergies Home Medications ?Medication ?Instructions ?Recorded ?Confirmed ?Type digoxin 125 mcg (0.125 mg) tablet 250 mcg PO DAILY 05/12/24 06/15/24 History apixaban 5 mg tablet (Eliquis) 5 mg PO BID #180 tabs 06/15/24 07/16/24 Rx ferrous sulfate 324 mg (65 mg 324 mg PO DAILY #90 tabs 06/15/24 06/15/24 Rx iron) tablet,delayed release folic acid 1 mg tablet 1 mg PO DAILY #90 tabs 06/15/24 07/16/24 Rx hydrocodone 5 mg-acetaminophen 325 1 tab PO BID PRN pain #6 tabs 06/15/24 07/16/24 Rx mg tablet metoprolol succinate 100 mg 100 mg PO DAILY #30 tabs 06/15/24 07/16/24 Rx tablet,extended release 24 hr amiodarone 200 mg tablet 200 mg PO DAILY 07/16/24 07/16/24 History bumetanide 1 mg tablet 1 mg PO BID 07/16/24 07/16/24 History levothyroxine 125 mcg tablet 125 mcg PO DAILY 07/16/24 07/16/24 History methocarbamol 750 mg tablet 750 mg PO QID 07/16/24 07/16/24 History sertraline 100 mg tablet 100 mg PO DAILY 07/16/24 07/16/24 History thiamine HCl (vitamin B1) 100 mg 100 mg PO DAILY 07/16/24 07/16/24 History tablet New Prescriptions to Start Prescriptions: Allergies Allergy/AdvReac Type Severity Reaction Status Date / Time hydrochlorothiazide AdvReac Unknown Other Verified 06/15/24 10:14 Exam Data for Last 24 hours Vital signs and Labs for Last 24 Hours: Temp Pulse Resp BP Pulse Ox O2 Del Method 98.7 F 130 H 14 144/96 H 98 Room Air 07/16/24 21:56 07/16/24 22:00 07/16/24 22:00 07/16/24 22:00 07/16/24 22:00 07/16/24 22:40 Laboratory Results - last 24 hr 07/16/24 17:47: VBG pH 7.29 L, VBG pCO2 43.2, VBG pO2 47.1 H, VBG HCO3 20.4 L, VBG Total CO2 21.7 L, VBG O2 Saturation 73.0 H, VBG Base Excess -6.1 L, VBG Lactic Acid 2.4 H 07/16/24 18:26: WBC 5.6, RBC 3.53 L, Hgb 10.0 L, Hct 32.8 L, MCV 92.9, MCH 28.3, MCHC 30.5 L, RDW 19.3 H, Plt Count 119 L, MPV 11.1 H, Neut % (Auto) 48.1, Lymph % (Auto) 35.4, [place] % (Auto) 11.7 H, Eos % (Auto) 1.3, Baso % (Auto) 3.1 H, Neut # (Auto) 2.7, Lymph # (Auto) 2.0, [place] # (Auto) 0.7, Eos # (Auto) 0.1, Baso # (Auto) 0.2, PT 12.4, INR 1.13 H, APTT 28.6, D-Dimer 3.63 H, Sodium 143, Potassium 3.7, Chloride 113 H, Carbon Dioxide 21 L, Anion Gap 12.7, BUN 9, Creatinine 1.10, Estimated Creat Clear 102, Estimated GFR 69, Est GFR ( Amer) 83, Glucose 94, Calcium 7.9 L, Phosphorus 2.8, Magnesium 1.3 L, Total Bilirubin 0.5, AST 60 H, ALT 17, Alkaline Phosphatase 369 H, NT-Pro-B Natriuret Pep 5230 H, Total Protein 6.6, Albumin 3.3 L, Globulin 3.3 H, Albumin/Globulin Ratio 1.0 L, Lipase 125, Vitamin B12 544, Folate 10.20, TSH 14.00 H, Thyroxine (T4) 3.7 L, Digoxin 0.40, Plasma/Serum Alcohol 337 H, HCV Ab NATALIE w/Rflx PCR Qn Negative, HIV Ag/Ab Combo Qual Negative 07/16/24 21:40: Urine Color Yellow, Urine Appearance Clear, Urine pH 6.0, Ur Specific [place] 1.010, Urine Protein Negative, Urine Glucose (UA) Negative, Urine Ketones Negative, Urine Blood 1+ A, Urine Nitrate Negative, Urine Bilirubin Negative, Urine Urobilinogen 0.2, Ur Leukocyte Esterase Negative, Urine RBC 3-5, Urine Opiates Screen Negative, Urine Methadone Screen Negative, Ur Barbituates Screen Negative, Ur Phencyclidine Scrn Negative, Ur Amphetamines Screen Negative, U Benzodiazepines Scrn Negative, Urine Cocaine Screen Negative, U Marijuana (THC) Screen Negative 07/16/24 22:50: Lactate 2.2 H I & O for Last 24 hours: Intake & Output 07/14/24 07/15/24 07/16/24 07/17/24 23:59 23:59 23:59 23:59 Output Total 955 / 955 Balance -955 / -955 Weight 116.891 kg Constitutional Constitutional: no acute distress *Routine HEENT Exam Head: Present normocephalic Eye: Present EOMI and PERRL ENT: Present mucous membranes moist *Routine Neck Exam Neck: Present supple; Absent lymphadenopathy *Routine Respiratory Exam Respiratory: Present CTA bilaterally *Routine Cardiovascular Exam Cardiovascular: Present tachycardia and irregularly irregular; Absent JVD *Routine Abdominal Exam Abdominal: Present soft and normoactive bowel sounds; Absent tenderness *Routine Rectal Exam Rectal:: deferred *Routine Genitalia Exam Genitalia:: deferred *Routine Extremities Exam Extremities: Present edema (+2 pitting); Absent cyanosis or clubbing *Routine Skin Exam Skin: Present warm; Absent rash *Routine Neurological Exam Neurological: Present alert and oriented X3 Assessment and Plan *Assessment and plan (1) Acute on chronic systolic heart failure: Status: Acute Category: Medical Code(s): I50.23 - Acute on chronic systolic (congestive) heart failure (2) Atrial fibrillation with rapid ventricular response: Status: Acute Category: Medical Code(s): I48.91 - Unspecified atrial fibrillation (3) Hypomagnesemia: Status: Acute Category: Medical Code(s): E83.42 - Hypomagnesemia (4) Hypothyroidism: Status: Acute Category: Medical Code(s): E03.9 - Hypothyroidism, unspecified (5) Pulmonary edema: Status: Acute Category: Medical Code(s): J81.1 - Chronic pulmonary edema (6) Noncompliance with medications: Status: Acute Category: Medical Code(s): Z91.148 - Patient's other noncompliance with medication regimen for other reason (7) Alcohol abuse: Status: Acute Category: Social Hx Code(s): F10.10 - Alcohol abuse, uncomplicated (8) Alcohol intoxication: Status: Acute Category: Medical Code(s): F10.929 - Alcohol use, unspecified with intoxication, unspecified Plan Admit to stepdown #Atrial fibrillation with RVR #Acute on chronic diastolic congestive heart failure #Pulmonary edema On presentation to the emergency department A-fib with RVR rate in the 150s. No shock status noted at this time (prior hospitalization in cardiogenic shock requiring milrinone and vasopressin) Attempted IV digoxin without reduction in heart rate. Cardiology consulted in the emergency department, continue with oral metoprolol as well as IV push doses. Patient tolerated well in the emergency department with reduction in heart rate into the 1 teens. Recent echocardiogram with EF of 50 to 55% Oxygenating well on room air proBNP elevated at 5000 Continue IV diuretics Strict intake and output Low-sodium diet Noncompliant at home with amiodarone and digoxin. #Acute alcohol intoxication Alcohol of 337. Will initiate CIWA scoring but patient currently stable at this time given acute intoxication Continue daily multivitamins and thiamine #Hypomagnesemia Replace per protocol #Hypothyroidism TSH of 14, continue oral replacement #Medical noncompliance Complicates all aspects of care .
[2024-07-17] VITALS (16 sets, daily range): BP systolic 116–165; BP diastolic 67–107; PULSE 83–144; RESP 15–24; TEMP 36.4–37; O2SAT 78–99; BMI 34.1
[2024-07-17 00:58] LABS: Reflex Lactic (2 hrs) Add Lactic Reflex
--- NOTE | 2024-07-17 03:53 | PC.NURSE ---
Pt o2 dropped down to upper 70s while asleep, 2 L nc placed on pt at this time.
[2024-07-17 04:40] LABS: Basophils # 0.2 K/mm3 (0-0.2); Eosinophils # 0.2 Kmm3 (0.0-0.4); Eosinophils % 2.8 % (0.1-12.0); Hematocrit 32.2 % (42.0-52.0); Hemoglobin 9.9 g/dL (14.1-18.0); Immature Granulocytes # 0.02 10^3uL; Immature Granulocytes % 0.3 %; Lymphocytes # 2.3 K/mm3 (0.7-4.5); Lymphocytes % 38.6 % (10-50); Mean Corpuscular HGB Conc 30.7 g/dL (31.8-35.4); Mean Corpuscular Volume 91.2 fl (80-94); Mean Platelet Volume 10.4 fl (7.4-10.4); Monocytes # 0.7 K/mm3 (0.1-1.0); Monocytes % 11.9 % (1.7-9.3); Neutrophils # 2.6 K/mm3 (1.8-7.8); Neutrophils % 43.4 % (37.0-80.0); Nucleated Red Blood Cells # 0.03 10^3/uL; Nucleated Red Blood Cells % 0.5 %; Platelet Count 127 K/mm3 (142-424); Red Blood Count 3.53 M/mm3 (4.60-6.20); Red Cell Distribution Width 19.4 % (11.5-17.5); Red Cell Distribution Width-SD 63.7 fL
[2024-07-17 04:46] LABS: Chloride 114 mmol/L (98-107); Potassium 3.8 mmoL/L (3.5-5.1); Sodium 141 mmol/L (136-145)
[2024-07-17 04:48] LABS: Blood Urea Nitrogen 9 mg/dl (9-20); Creatinine Clearance Estimated 110 mL/min (50-200); Estimated Glomerular Filt Rate 62 ml/min (>60); GFR (African American) 75 ML/MIN (>60); Lactic Acid Follow up (RFLX 2) 1.1 mmol/L (0.7-2.1)
[2024-07-17 04:49] LABS: Anion Gap 9.8 mEq/L (5-15); Calcium 7.9 mg/dl (8.4-10.2); Carbon Dioxide 21 mmol/L (22.0-30.0); Glucose 98 mg/dl (74-100); Magnesium 1.4 mg/dl (1.6-2.3); Phosphorous 3.1 mg/dl (2.5-4.5)
[2024-07-17] MEDS: MAGNESIUM SULFATE IN WATER 2 GM/50 ML PIGGYBACK IV ×3 (05:34→09:00)
[2024-07-17] MEDS: HEPARIN SODIUM 5,000 UNIT/ML VIAL 5000 UNIT SUBCUT (09:00)
[2024-07-17] MEDS: BUMETANIDE 1MG/4ML VIAL 1 MG IV ×2 (09:00→12:40)
[2024-07-17] MEDS: THIAMINE 100MG TABLET 100 MG PO (09:08)
[2024-07-17] MEDS: FOLIC ACID 1MG TABLET 1 MG PO (09:51)
--- NOTE | 2024-07-17 10:25 | HMH.PHAINT1 ---
Pharmacy Intervention Comments: MEDICATION RECONCILIATION COMPLETE USING EXTERNAL PHARMACY FILL HISTORY AND RECENT MD OFFICE VISIT NOTE.
--- NOTE | 2024-07-17 12:17 | HMH.PTEV ---
Physical Therapy Evaluation Rehab PT IP Evaluation Start: 07/16/24 22:56 Freq: ONCE Status: Active Protocol: Document 07/17/24 11:59 PDESEROUX (Rec: 07/17/24 12:17 [email or web address] [id number]) Subjective/History History History Pt. presents as a poor historian this date(07/17/24), vocalizes wanting to be left alone and all pt. would like to do is get this over with. Pt. answered half of subjective history questions w / one-word answers, and fell asleep for during the middle of the history portion. Therefore, partial subjective history was taken from MD history and physical. Pt. refused to participate in Inpatient Initial Evaluation examination stating multiple times I'd rather not. Physical Therapist max assist for bed mobility when pt. yelled out in P! and refused activity. Pt. is a 59 year old male who presents to [facility] 2nd floor Inpatient w/ c/o BLE edema and P!. Pt. reports his legs were hurting and called EMS to be brought into the E.R. Pt. reports he currently lives alone w/ his [place] Benjamin puppy. Pt. lives in a 1-story home where he uses a walker to get around. Pt. reports history of BLE femur fractures. PMH includes atrial fibrillation, alcohol abuse, HFpEF, hypothyroidism, COPD, recent hip fracture. Subjective Subjective Pt. vocalized increased spasms in LB while supine in hospital bed. Pt. vocalized 10 /10 BLE P! upon Physical Therapist palpation and assistance w/ bed mobility. Pt . refusal to participate in Inpatient Physical Therapy Initial Evaluation was severe. Physical Therapist was unable to assess majority of examination portion of initial evaluation secondary to pt. refusal to participate. New diagnosis of cancer in past 12 No months? [facility] How much help from another person do you currently need... Turning from your back to your side A lot while in a flat bed without using bedrails? Moving from lying on back to sitting on A lot the side of a flat bed without using bedrails? Moving to and from a bed to a chair ( A lot including a wheelchair)? Standing up from a chair using your arms A lot ? (e.g., wheelchair, bedside chair) Walking in hospital room? Total Climbing 3-5 steps with a railing? Total Mobility Score 10 Mobility Level [facility] Mobility Calculator Mobility 4 Move to chair/ commode Rehab PT IP Eval Objective Appearance Patient Behavior Fatigued,Asleep,Wandering, Resistive to Care Patient Orientation Person,Birthday Difficulty following instructions moderate Speech Pattern Garbled,Soft-Spoken,Monotone, Difficulty Finding Words Ambulation Patient Able to Ambulate No Pain Bilateral Legs Pain Intensity 10 ROM RLE PT ROM Status ABN LLE PT ROM Status ABN MMT RLE PT MMT ABN LLE PT MMT ABN Rehab PT IP prob,goals,plan Problems Date of Evaluation: 07/17/24 PT IP Problems Bed Mobility,Transfers,Balance ,Self care,Safety Rehab Potential Rehab Potential Fair Equipment Needs Assistive Devices Rolling / Wheeled Walker Plan PT Intervention Plan Bed Mobility,Transfers,Balance ,Self care,Safety,Therapeutic Exercise PT Plan Frequency BID Duration LOS Discharge Goals Bed Transfer Ability Moderate x 1 (50% assist) Discharge Plan PT Discharge Plan Upon discharge from [facility], once medically stable deemed per MD , pt. is most appropriate to be discharged to SNF to improve BLE muscle strength and endurance to further promote IND. w/ ADLs secondary to current home environment status. Eval Complexity Eval Charge Codes 22401 - Moderate Complexity PHYSICIAN CERTIFICATION: I certify the specified therapy services for Alonso Richardson are required, authorized, and reviewed every 30 days.
[2024-07-17] MEDS: LEVOTHYROXINE 125MCG (0.125MG) TAB 125 MCG PO (12:39)
[2024-07-17] MEDS: APIXABAN 5MG TABLET 5 MG PO ×2 (12:39→21:53)
[2024-07-17] MEDS: FERROUS SULFATE 325MG TABLET 325 MG PO (12:40)
[2024-07-17] MEDS: DIGOXIN 0.125MG TABLET 125 MCG PO (12:40)
[2024-07-17] MEDS: SERTRALINE 100MG TABLET 100 MG PO (12:40)
[2024-07-17] MEDS: METOPROLOL SUCCINATE XL 100MG TABLET 100 MG PO (12:40)
[2024-07-17] MEDS: ONDANSETRON 4MG/2ML VIAL 4 MG IV (13:22)
[2024-07-17] MEDS: diazePAM 5MG TABLET 5 MG PO (13:22)
--- NOTE | 2024-07-17 16:48 | P.PN_ITS ---
Subjective *Date: 07/17/24 *Time: 16:48 Interval history: Agitation today, did not want to work with therapy. Her urines been elevated between 110 and 140. Resuming home medications. Denies chest pain. Feeling symptoms of withdrawal. Alert and oriented x 3. On 2 L oxygen overnight, w eaned to room air during the day Medical Exam Vital signs and Labs for Last 24 Hours: Vital Signs Temp Pulse Pulse Resp BP BP Pulse Ox 07/17/24 16:00 98.4 F 120 H 21 165/107 H 92 L 07/17/24 15:00 07/17/24 14:00 07/17/24 14:00 110 H 18 123/75 98 07/17/24 13:00 07/17/24 12:40 144 H 07/17/24 12:00 120 H 07/17/24 12:00 98.4 F 119 H 20 153/99 H 94 L 07/17/24 11:00 07/17/24 10:00 103 H 18 132/95 H 96 07/17/24 09:00 07/17/24 08:00 120 H 07/17/24 08:00 07/17/24 08:00 97.6 F 99 H 15 143/83 H 95 07/17/24 06:48 07/17/24 06:00 112 H 20 130/67 94 L 07/17/24 04:49 07/17/24 04:00 115 H 07/17/24 04:00 98.3 F 116 H 19 146/89 H 99 07/17/24 03:54 78 L 07/17/24 03:00 07/17/24 02:36 111 H 96 07/17/24 02:00 83 17 116/76 91 L 07/17/24 01:00 07/17/24 00:00 106 H 07/17/24 00:00 98.6 F 102 H 24 119/84 92 L 07/16/24 22:40 07/16/24 22:00 130 H 14 144/96 H 98 07/16/24 21:56 98.7 F 135 H 23 144/96 H 100 07/16/24 21:30 98 F 113 H 20 115/94 H 07/16/24 21:13 128 H 99 07/16/24 20:25 146 H 139/100 H 92 L 07/16/24 19:57 56 L 125/95 H 94 L 07/16/24 19:37 146 H 19 117/91 H 07/16/24 19:22 19 125/99 H 07/16/24 18:49 155 H 19 144/97 H 100 07/16/24 17:50 98.9 F 148 H 20 146/105 H 97 O2 Del Method O2 Flow Rate 07/17/24 16:00 Room Air 07/17/24 15:00 Room Air 07/17/24 14:00 Room Air 07/17/24 14:00 BiPAP 07/17/24 13:00 Room Air 07/17/24 12:40 07/17/24 12:00 07/17/24 12:00 Room Air 07/17/24 11:00 Room Air 07/17/24 10:00 Room Air 07/17/24 09:00 Room Air 07/17/24 08:00 07/17/24 08:00 Room Air 07/17/24 08:00 Nasal Cannula 2 07/17/24 06:48 Nasal Cannula 2 07/17/24 06:00 Nasal Cannula 2 07/17/24 04:49 Nasal Cannula 2 07/17/24 04:00 07/17/24 04:00 Nasal Cannula 2 07/17/24 03:54 Room Air 07/17/24 03:00 Room Air 07/17/24 02:36 Room Air 07/17/24 02:00 Room Air 07/17/24 01:00 Room Air 07/17/24 00:00 07/17/24 00:00 Room Air 07/16/24 22:40 Room Air 07/16/24 22:00 Room Air 07/16/24 21:56 Room Air 07/16/24 21:30 Room Air 07/16/24 21:13 Room Air 07/16/24 20:25 07/16/24 19:57 07/16/24 19:37 07/16/24 19:22 07/16/24 18:49 Room Air 07/16/24 17:50 Room Air Intake and Output 07/17/24 07/17/24 07/17/24 07:59 15:59 23:59 Intake Total 495 / 1107 612 / 1107 Output Total 700 / 3400 2700 / 3400 Balance -205 / -2293 -2088 / -229 Intake: Intake, Oral Amount 460 / 1022 562 / 1022 Intake, Total IV Amount 35 85 50 / 85 Magnesium Sulfate in Water 2 gm 50 / 85 In 50 ml @ 50 mls/hr IV Q1H [facility] Rx#:[id number] Output: Output, Urine Amount 700 / 3400 2700 / 3400 Other: Number of Unmeasured Voids 0 Number of Bowel Movements 1 Weight 116.891 kg Patient Weight 07/17/24 23:59 Weight 116.891 kg Laboratory Results - last 24 hr 07/16/24 17:47: VBG pH 7.29 L, VBG pCO2 43.2, VBG pO2 47.1 H, VBG HCO3 20.4 L, VBG Total CO2 21.7 L, VBG O2 Saturation 73.0 H, VBG Base Excess -6.1 L, VBG Lactic Acid 2.4 H 07/16/24 18:26: WBC 5.6, RBC 3.53 L, Hgb 10.0 L, Hct 32.8 L, MCV 92.9, MCH 28.3, MCHC 30.5 L, RDW 19.3 H, Plt Count 119 L, MPV 11.1 H, Neut % (Auto) 48.1, Lymph % (Auto) 35.4, [place] % (Auto) 11.7 H, Eos % (Auto) 1.3, Baso % (Auto) 3.1 H, Neut # (Auto) 2.7, Lymph # (Auto) 2.0, [place] # (Auto) 0.7, Eos # (Auto) 0.1, Baso # (Auto) 0.2, PT 12.4, INR 1.13 H, APTT 28.6, D-Dimer 3.63 H, Sodium 143, Potassium 3.7, Chloride 113 H, Carbon Dioxide 21 L, Anion Gap 12.7, BUN 9, Creatinine 1.10, Estimated Creat Clear 102, Estimated GFR 69, Est GFR ( Amer) 83, Glucose 94, Calcium 7.9 L, Phosphorus 2.8, Magnesium 1.3 L, Total Bilirubin 0.5, AST 60 H, ALT 17, Alkaline Phosphatase 369 H, NT-Pro-B Natriuret Pep 5230 H, Total Protein 6.6, Albumin 3.3 L, Globulin 3.3 H, Albumin/Globulin Ratio 1.0 L, Lipase 125, Vitamin B12 544, Folate 10.20, TSH 14.00 H, Thyroxine (T4) 3.7 L, Digoxin 0.40, Plasma/Serum Alcohol 337 H, HCV Ab NATALIE w/Rflx PCR Qn Negative, HIV Ag/Ab Combo Qual Negative 07/16/24 21:40: Urine Color Yellow, Urine Appearance Clear, Urine pH 6.0, Ur Specific [place] 1.010, Urine Protein Negative, Urine Glucose (UA) Negative, Urine Ketones Negative, Urine Blood 1+ A, Urine Nitrate Negative, Urine Bilirubin Negative, Urine Urobilinogen 0.2, Ur Leukocyte Esterase Negative, Urine RBC 3-5, Urine Opiates Screen Negative, Urine Methadone Screen Negative, Ur Barbituates Screen Negative, Ur Phencyclidine Scrn Negative, Ur Amphetamines Screen Negative, U Benzodiazepines Scrn Negative, Urine Cocaine Screen Negative, U Marijuana (THC) Screen Negative 07/16/24 22:50: Lactate 2.2 H 07/17/24 04:30: WBC 6.0, RBC 3.53 L, Hgb 9.9 L, Hct 32.2 L, MCV 91.2, MCH 28.0, MCHC 30.7 L, RDW 19.4 H, Plt Count 127 L, MPV 10.4, Neut % (Auto) 43.4, Lymph % (Auto) 38.6, [place] % (Auto) 11.9 H, Eos % (Auto) 2.8, Baso % (Auto) 3.0 H, Neut # (Auto) 2.6, Lymph # (Auto) 2.3, [place] # (Auto) 0.7, Eos # (Auto) 0.2, Baso # (Auto) 0.2, Sodium 141, Potassium 3.8, Chloride 114 H, Carbon Dioxide 21 L, Anion Gap 9.8, BUN 9, Creatinine 1.20, Estimated Creat Clear 110, Estimated GFR 62, Est GFR ( Amer) 75, Glucose 98, Lactate 1.1, Calcium 7.9 L, Phosphorus 3.1, Magnesium 1.4 L I & O for Labs for Last 24 Hours: Intake & Output 07/14/24 07/15/24 07/16/24 07/17/24 23:59 23:59 23:59 23:59 Intake Total 1107 / 1107 Output Total 955 / 1355 3400 / 3400 Balance -955 / -1135 -2293 / -2293 Weight 116.891 kg 116.891 kg Constitutional: Present mild distress, average body habitus, chronically ill appearing and cooperative Head: Present atraumatic and normocephalic ENT: Present normal exam Respiratory: Present normal respiratory effort; Absent rhonchi, wheezes or crackles Cardiac: Present Tachycardia Comment:: Irregularly irregular GI: Present soft and normal bowel sounds; Absent distention or tenderness Extremities: Present normal inspection, full ROM and edema (3+ to thigh) Skin: Present intact; Absent erythema Neuro: Present Grossly Intact, alert, awake, oriented x 3 and moves all extremities Assessment and Plan *Assessment and plan (1) Acute on chronic systolic heart failure: Status: Acute Category: Medical Code(s): I50.23 - Acute on chronic systolic (congestive) heart failure (2) Atrial fibrillation with rapid ventricular response: Status: Acute Category: Medical Code(s): I48.91 - Unspecified atrial fibrillation (3) Hypomagnesemia: Status: Acute Category: Medical Code(s): E83.42 - Hypomagnesemia (4) Hypothyroidism: Status: Acute Category: Medical Code(s): E03.9 - Hypothyroidism, unspecified (5) Pulmonary edema: Status: Acute Category: Medical Code(s): J81.1 - Chronic pulmonary edema (6) Noncompliance with medications: Status: Acute Category: Medical Code(s): Z91.148 - Patient's other noncompliance with medication regimen for other reason (7) Alcohol abuse: Status: Acute Category: Social Hx Code(s): F10.10 - Alcohol abuse, uncomplicated (8) Alcohol intoxication: Status: Acute Category: Medical Code(s): F10.929 - Alcohol use, unspecified with intoxication, unspecified Plan Alonso Richardson is a 59-year-old male who was admitted for A-fib with RVR, acute on chronic diastolic CHF, and alcohol withdrawal syndrome. Continues to require inpatient management. Necessitating stepdown level of care. Diuresing well. Therapy evaluating, patient not feeling like participating today. Problems addressed as follows: #Atrial fibrillation with RVR #Acute on chronic diastolic congestive heart failure #Pulmonary edema -Remains in A-fib with RVR, heart rate 140 on morning rounds. Resume digoxin 125 mcg daily, metoprolol succinate 100 mg daily, monitor for signs of cardiogen ic shock - Discussed case with cardiology, agree with metoprolol and diuresis. Monitor for signs of shock given prior hospitalization in cardiogenic shock requiring milrinone and vasopressin - Recent echocardiogram with EF of 50 to 55% - Oxygenating well on room air while awake, 2 L at night while -Diuresing with Bumex 2 mg IV twice daily. -2 L since admission - Strict intake and output - Low-sodium diet - Noncompliant at home with amiodarone and digoxin. - Kidney function normal with BUN 9, creatinine 1.2 #Acute alcohol intoxication - Alcohol of 337 on admission - Continue CIWA protocol. Valium per protocol. Having mild withdrawal symptoms. - continue daily multivitamins and thiamine #Hypomagnesemia: Replace per protocol, Mg 1.4 on morning labs, repeat CBC, CMP, magnesium ordered for the morning #Hypothyroidism: TSH of 14, continue oral replacement #Medical noncompliance: Complicates all aspects of care FULL Code cardiac diet Eliquis 5mg BID
[2024-07-17] MEDS: BUMETANIDE 1MG/4ML VIAL 2 MG IV (17:17)
[2024-07-17] MEDS: MULTIVITAMIN TABLET 1 EACH PO (17:19)
[2024-07-17 18:17] LABS: Adenovirus F 40/41, stool Not Detected (NotDetected); Astrovirus Not Detected (NotDetected); Campylobacter Not Detected (NotDetected); Clostridium Difficile A/B, PCR Not Detected (NotDetected); Cryptosporidium Not Detected (NotDetected); Cyclospora Cayetanesis Not Detected (NotDetected); Entamoeba histolytica Not Detected (NotDetected); Enteroaggregative E coli Not Detected (NotDetected); Enteropathogenic E coli Not Detected (NotDetected); Enterotoxigenic E coli Not Detected (NotDetected); Giardia lamblia Not Detected (NotDetected); Norovirus Not Detected (NotDetected); Plesimonas Shigalloides, PCR Not Detected (NotDetected); Rotavirus A Not Detected (NotDetected); Salmonella, PCR Not Detected (NotDetected); Sapovirus Not Detected (NotDetected); Shiga-like toxin E coli Not Detected (NotDetected); Shigella Enterovasive E coli Not Detected (NotDetected); Vibrio Cholerae Not Detected (NotDetected); Vibrio, PCR Not Detected (NotDetected); Yersinia Entercolitica, PCR Not Detected (NotDetected)
[2024-07-17] MEDS: HYDROCODONE/APAP 5/325 MG TABLET 1 TAB PO (18:18)
[2024-07-17] MEDS: TRAZODONE 50MG TABLET 50 MG PO (21:53)
[2024-07-18] VITALS (13 sets, daily range): BP systolic 106–163; BP diastolic 76–115; PULSE 97–130; RESP 13–22; TEMP 36.6–36.9; O2SAT 92–99; BMI 33.2
--- NOTE | 2024-07-18 00:20 | PC.NURSE ---
Pt o2 dropped to low 80s while asleep. Pt woken up and oxygen came back up to 97% on RA. Pt states he is aware he has sleep apnea but cannot tolerate a cpap. Pt placed on 2 L nc. Pt continues to drop to mid 80s with 2 L nc on, titrated o2 to 3 L nc while pt sleeping.
[2024-07-18 06:07] LABS: Basophils # 0.1 K/mm3 (0-0.2); Basophils % 2.8 % (0.1-2.0); Eosinophils # 0.1 Kmm3 (0.0-0.4); Eosinophils % 2.8 % (0.1-12.0); Hematocrit 31.7 % (42.0-52.0); Immature Granulocytes # 0.01 10^3uL; Immature Granulocytes % 0.2 %; Lymphocytes # 1.3 K/mm3 (0.7-4.5); Lymphocytes % 25.9 % (10-50); Mean Corpuscular HGB Conc 31.5 g/dL (31.8-35.4); Mean Corpuscular Volume 91.9 fl (80-94); Mean Platelet Volume 10.8 fl (7.4-10.4); Monocytes # 0.6 K/mm3 (0.1-1.0); Monocytes % 12.1 % (1.7-9.3); Neutrophils # 2.8 K/mm3 (1.8-7.8); Neutrophils % 56.2 % (37.0-80.0); Nucleated Red Blood Cells # 0.03 10^3/uL; Nucleated Red Blood Cells % 0.6 %; Platelet Count 114 K/mm3 (142-424); Red Blood Count 3.45 M/mm3 (4.60-6.20); Red Cell Distribution Width 19.2 % (11.5-17.5); Red Cell Distribution Width-SD 63.3 fL
[2024-07-18] MEDS: HYDROCODONE/APAP 5/325 MG TABLET 1 TAB PO ×2 (06:07→12:11)
[2024-07-18] MEDS: LEVOTHYROXINE 125MCG (0.125MG) TAB 125 MCG PO (06:07)
[2024-07-18 06:09] LABS: Chloride 106 mmol/L (98-107); Potassium 3.9 mmoL/L (3.5-5.1); Sodium 134 mmol/L (136-145)
[2024-07-18 06:12] LABS: Alanine Aminotransferase 18 U/L (12-78); Albumin/Globulin Ratio 0.9 (1.1-1.8); Alkaline Phosphatase 392 U/L (38-126); Anion Gap 8.9 mEq/L (5-15); Aspartate Amino Transferase 54 U/L (17-59); Bilirubin,Total 1.7 mg/dl (0.2-1.3); Blood Urea Nitrogen 10 mg/dl (9-20); Carbon Dioxide 23 mmol/L (22.0-30.0); Creatinine Clearance Estimated 142 mL/min (50-200); Estimated Glomerular Filt Rate 86 ml/min (>60); GFR (African American) 105 ML/MIN (>60); Globulin 3.2 g/dL (1.3-3.2); Total Protein,Serum 6.2 g/dl (6.3-8.2)
[2024-07-18 06:13] LABS: Calcium 7.6 mg/dl (8.4-10.2); Glucose 87 mg/dl (74-100); Magnesium 1.5 mg/dl (1.6-2.3)
[2024-07-18] MEDS: MAGNESIUM SULFATE IN WATER 2 GM/50 ML PIGGYBACK IV ×2 (06:58→08:37)
[2024-07-18 08:13] LABS: Transferrin 240 mg/dL (177-329)
[2024-07-18] MEDS: DIGOXIN 0.125MG TABLET 125 MCG PO (08:35)
[2024-07-18] MEDS: APIXABAN 5MG TABLET 5 MG PO ×2 (08:35→21:25)
[2024-07-18] MEDS: FERROUS SULFATE 325MG TABLET 325 MG PO (08:36)
[2024-07-18] MEDS: METOPROLOL SUCCINATE XL 100MG TABLET 100 MG PO ×2 (08:36→21:25)
[2024-07-18] MEDS: FOLIC ACID 1MG TABLET 1 MG PO (08:36)
[2024-07-18] MEDS: THIAMINE 100MG TABLET 100 MG PO (08:36)
[2024-07-18] MEDS: BUMETANIDE 1MG/4ML VIAL 2 MG IV (08:37)
[2024-07-18] MEDS: SERTRALINE 100MG TABLET 100 MG PO (08:44)
[2024-07-18] MEDS: BUMETANIDE 10 MG in 0.9 % SODIUM CHLORIDE 60 ML 5 MG IV (12:12)
--- NOTE | 2024-07-18 15:55 | EXP.ACUTE.PN ---
Subjective *Date: 07/18/24 *Time: 17:30 Interval history: Patient states he is feeling somewhat better this morning. On 3 L nasal cannula overnight, on room air after awakening. -4 L since admission. Denies chest pain. Tolerating p.o. intake. Leg still swollen but feeling somewhat better. Heart rate remains fast in A-fib. Increasing beta-sonia today Medical Exam Vital signs and Labs for Last 24 Hours: Vital Signs Temp Pulse Pulse Resp BP Pulse Ox O2 Del Method 07/18/24 15:06 Room Air 07/18/24 14:00 Room Air 07/18/24 14:00 109 H 16 122/87 92 L Room Air 07/18/24 13:10 Room Air 07/18/24 12:00 115 H 18 129/76 98 Room Air 07/18/24 11:15 Room Air 07/18/24 09:10 Room Air 07/18/24 08:35 128 H 07/18/24 08:00 100 H 07/18/24 08:00 121 H 22 149/100 H 94 L Room Air 07/18/24 07:40 Room Air 07/18/24 06:41 Nasal Cannula 07/18/24 06:00 121 H 14 160/115 H 99 Room Air 07/18/24 05:00 Nasal Cannula 07/18/24 04:00 98.5 F 07/18/24 04:00 119 H 07/18/24 04:00 98 H 16 149/108 H 98 Room Air 07/18/24 03:00 Nasal Cannula 07/18/24 02:00 116 H 96 Nasal Cannula 07/18/24 02:00 97 H 13 163/102 H 97 Nasal Cannula 07/18/24 00:47 Nasal Cannula 07/18/24 00:00 120 H 07/18/24 00:00 97.8 F 119 H 13 145/101 H 98 Nasal Cannula 07/17/24 23:05 86 L Nasal Cannula 07/17/24 23:00 Nasal Cannula 07/17/24 22:00 118 H 18 155/103 H 88 L Room Air 07/17/24 21:00 Room Air 07/17/24 20:00 134 H 07/17/24 20:00 128 H 94 L Room Air 07/17/24 20:00 98.3 F 122 H 24 159/107 H 94 L Room Air 07/17/24 18:50 Room Air 07/17/24 18:00 120 H 21 161/106 H 94 L Room Air 07/17/24 17:00 Room Air 07/17/24 16:00 120 H 07/17/24 16:00 98.4 F 120 H 21 165/107 H 92 L Room Air O2 Flow Rate 07/18/24 15:06 07/18/24 14:00 07/18/24 14:00 07/18/24 13:10 07/18/24 12:00 07/18/24 11:15 07/18/24 09:10 07/18/24 08:35 07/18/24 08:00 07/18/24 08:00 07/18/24 07:40 07/18/24 06:41 3 07/18/24 06:00 07/18/24 05:00 3 07/18/24 04:00 07/18/24 04:00 07/18/24 04:00 07/18/24 03:00 3 07/18/24 02:00 3 07/18/24 02:00 3 07/18/24 00:47 3 07/18/24 00:00 07/18/24 00:00 3 07/17/24 23:05 2 07/17/24 23:00 2 07/17/24 22:00 07/17/24 21:00 07/17/24 20:00 07/17/24 20:00 07/17/24 20:00 07/17/24 18:50 07/17/24 18:00 07/17/24 17:00 07/17/24 16:00 07/17/24 16:00 Intake and Output 07/17/24 07/18/24 07/18/24 23:59 07:59 15:59 Intake Total 360 / 1467 450 / 550 100 / 550 Output Total 1025 / 4425 550 / 2375 1825 / 2375 Balance -665 / -2958 -100 / -1825 -1725 / -1825 Intake: Intake, Oral Amount 360 / 1382 450 / 450 Intake, Total IV Amount 100 / 100 Magnesium Sulfate in Water 2 gm 100 / 100 In 50 ml @ 50 mls/hr IV Q1H [facility] Rx#:[id number] Output: Output, Urine Amount 1025 / 4425 550 / 2375 1825 / 2375 Other: Number of Voids 2 Number of Bowel Movements 3 Weight 113.625 kg Patient Weight 07/18/24 23:59 Weight 113.625 kg Laboratory Results - last 24 hr 07/16/24 18:26: Transferrin 240 07/17/24 16:56: Stl C. cayetanensis PCR Not detected, Stool Rotavirus (PCR) Not detected, Stl Adenov F 40/41 PCR Not detected, Stool Astrovirus (PCR) Not detected, Stool Campylobacter PCR Not detected, Stl C.difficile Tox PCR Not detected, Stool Cryptosporidium PCR Not detected, Stl E.coli Shiga Tox PCR Not detected, Stool E coli O157 PCR Not detected, Stl Enterotoxigenic E PCR Not detected, Stool EPEC (PCR) Not detected, Stool EAEC (PCR) Not detected, Stl E. histolytica PCR Not detected, Stool Giardia Lamblia PCR Not detected, Stool Salmonella PCR Not detected, Stool Sapovirus (PCR) Not detected, Stl P. shigelloides PCR Not detected, Stl Shigella/EIEC PCR Not detected, St Y.enterocolitica PCR Not detected, Stool Vibrio (PCR) Not detected, Stl Vibrio cholerae PCR Not detected, Stl Norovirus GI/GII PCR Not detected 07/18/24 05:56: WBC 5.0, RBC 3.45 L, Hgb 10.0 L, Hct 31.7 L, MCV 91.9, MCH 29.0, MCHC 31.5 L, RDW 19.2 H, Plt Count 114 L, MPV 10.8 H, Neut % (Auto) 56.2, Lymph % (Auto) 25.9, [place] % (Auto) 12.1 H, Eos % (Auto) 2.8, Baso % (Auto) 2.8 H, Neut # (Auto) 2.8, Lymph # (Auto) 1.3, [place] # (Auto) 0.6, Eos # (Auto) 0.1, Baso # (Auto) 0.1, Sodium 134 L, Potassium 3.9, Chloride 106, Carbon Dioxide 23, Anion Gap 8.9, BUN 10, Creatinine 0.90 D, Estimated Creat Clear 142, Estimated GFR 86, Est GFR ( Amer) 105 D, Glucose 87, Calcium 7.6 L, Magnesium 1.5 L, Total Bilirubin 1.7 H, AST 54, ALT 18, Alkaline Phosphatase 392 H, Total Protein 6.2 L, Albumin 3.0 L, Globulin 3.2, Albumin/Globulin Ratio 0.9 L I & O for Labs for Last 24 Hours: Intake & Output 07/15/24 07/16/24 07/17/24 07/18/24 23:59 23:59 23:59 23:59 Intake Total 1467 / 1467 550 / 550 Output Total 955 / 1355 4425 / 4425 2375 / 2375 Balance -955 / -1135 -2958 / -2958 -1825 / -1825 Weight 116.891 kg 116.891 kg 113.625 kg Constitutional: Present mild distress, average body habitus, chronically ill appearing and cooperative Head: Present atraumatic and normocephalic ENT: Present normal exam Respiratory: Present normal respiratory effort; Absent rhonchi, wheezes or crackles Cardiac: Present Tachycardia Comment:: Irregularly irregular GI: Present soft and normal bowel sounds; Absent distention or tenderness Extremities: Present normal inspection, full ROM and edema (2+ to thigh) Skin: Present intact; Absent erythema Neuro: Present Grossly Intact, alert, awake, oriented x 3 and moves all extremities Assessment and Plan *Assessment and plan (1) Acute on chronic systolic heart failure: Status: Acute Category: Medical Code(s): I50.23 - Acute on chronic systolic (congestive) heart failure (2) Atrial fibrillation with rapid ventricular response: Status: Acute Category: Medical Code(s): I48.91 - Unspecified atrial fibrillation (3) Hypomagnesemia: Status: Acute Category: Medical Code(s): E83.42 - Hypomagnesemia (4) Hypothyroidism: Status: Acute Category: Medical Code(s): E03.9 - Hypothyroidism, unspecified (5) Pulmonary edema: Status: Acute Category: Medical Code(s): J81.1 - Chronic pulmonary edema (6) Noncompliance with medications: Status: Acute Category: Medical Code(s): Z91.148 - Patient's other noncompliance with medication regimen for other reason (7) Alcohol abuse: Status: Acute Category: Social Hx Code(s): F10.10 - Alcohol abuse, uncomplicated (8) Alcohol intoxication: Status: Acute Category: Medical Code(s): F10.929 - Alcohol use, unspecified with intoxication, unspecified Plan Alonso Richardson is a 59-year-old male who was admitted for A-fib with RVR, acute on chronic diastolic CHF, and alcohol withdrawal syndrome. Continues to require inpatient management. Necessitating stepdown level of care. Diuresing well, continues to have significant volume overload. Progress to Bumex drip today. Problems addressed as follows: #Atrial fibrillation with RVR #Acute on chronic diastolic congestive heart failure #Pulmonary edema -Remains in A-fib with RVR, heart rate improved to 110-130. Continue digoxin 125 mcg daily. Continue metoprolol succinate 100 mg, increase to twice daily. - No overt signs of cardiogenic shock at this time - Increase Bumex to drip 1 mg/h - Echo from a year ago with EF 30%, severe RV dilation. Elevated RVSP; echo from March with EF 50 to 55%. Severe RV dysfunction. - Oxygenating well on room air while awake, 2 L at night while - To 4 L since admission. Continue strict ins and out - Low-sodium diet - Noncompliant at home with amiodarone and digoxin. - Kidney function normal with BUN 10, creatinine 0.9. Potassium 3.9 - Repeat CBC, CMP, magnesium ordered for the morning #Acute alcohol intoxication - Alcohol of 337 on admission, tolerating withdrawal protocol well. - Continue CIWA protocol. Valium per protocol. Having mild withdrawal symptoms. - continue daily multivitamins and thiamine #Hypomagnesemia: Replace per protocol, Mg 1.4 on morning labs, repeat CBC, CMP, magnesium ordered for the morning #Hypothyroidism: TSH of 14, continue oral replacement #Medical noncompliance: Complicates all aspects of care FULL Code cardiac diet Eliquis 5mg BID
[2024-07-18] MEDS: MULTIVITAMIN TABLET 1 EACH PO (16:56)
--- NOTE | 2024-07-18 18:07 | PC.NURSE ---
VS stable and patient remained on room air. Patient refusing to sit in chair for meals, pt stated he was not doing that and maybe tomorrow Patient educated on importance of sitting up. Patient able to ambulate to the bathroom twice with walker but very unsteady. Bumex drip started, patient diuresed 2L during shift.
[2024-07-18 18:33] LABS: Chloride 100 mmol/L (98-107); Potassium 3.5 mmoL/L (3.5-5.1); Sodium 135 mmol/L (136-145)
[2024-07-18 18:36] LABS: Anion Gap 9.5 mEq/L (5-15); Blood Urea Nitrogen 11 mg/dl (9-20); Carbon Dioxide 29 mmol/L (22.0-30.0); Creatinine Clearance Estimated 128 mL/min (50-200); Estimated Glomerular Filt Rate 76 ml/min (>60); GFR (African American) 93 ML/MIN (>60)
[2024-07-18 18:37] LABS: Glucose 93 mg/dl (74-100)
[2024-07-18] MEDS: POTASSIUM CHLORIDE 20MEQ TAB 40 MEQ PO ×2 (19:52→23:25)
[2024-07-18] MEDS: TRAZODONE 50MG TABLET 100 MG PO (22:40)
[2024-07-19] VITALS (17 sets, daily range): BP systolic 104–132; BP diastolic 68–88; PULSE 88–138; RESP 15–26; TEMP 36.6–37.1; O2SAT 93–97; BMI 31.7
[2024-07-19] MEDS: BUMETANIDE 10 MG in 0.9 % SODIUM CHLORIDE 60 ML 5 MG IV (04:58)
[2024-07-19] MEDS: LEVOTHYROXINE 125MCG (0.125MG) TAB 125 MCG PO (06:07)
[2024-07-19 06:36] LABS: Basophils # 0.1 K/mm3 (0-0.2); Basophils % 1.9 % (0.1-2.0); Eosinophils # 0.1 Kmm3 (0.0-0.4); Eosinophils % 2.4 % (0.1-12.0); Hematocrit 35.4 % (42.0-52.0); Immature Granulocytes # 0.02 10^3uL; Immature Granulocytes % 0.3 %; Lymphocytes # 1.3 K/mm3 (0.7-4.5); Lymphocytes % 22.4 % (10-50); Mean Corpuscular HGB Conc 31.1 g/dL (31.8-35.4); Mean Corpuscular Hemoglobin 28.4 pg (27.0-31.2); Mean Corpuscular Volume 91.5 fl (80-94); Mean Platelet Volume 11.1 fl (7.4-10.4); Monocytes # 0.7 K/mm3 (0.1-1.0); Monocytes % 12.9 % (1.7-9.3); Neutrophils # 3.4 K/mm3 (1.8-7.8); Neutrophils % 60.1 % (37.0-80.0); Nucleated Red Blood Cells # 0.05 10^3/uL; Nucleated Red Blood Cells % 0.9 %; Platelet Count 183 K/mm3 (142-424); Red Blood Count 3.87 M/mm3 (4.60-6.20); Red Cell Distribution Width 19.9 % (11.5-17.5); Red Cell Distribution Width-SD 63.4 fL; White Blood Count 5.7 K/mm3 (4.8-10.8)
[2024-07-19 06:56] LABS: Albumin Level 3.4 g/dl (3.5-5.0); Chloride 101 mmol/L (98-107); Potassium 3.7 mmoL/L (3.5-5.1); Sodium 135 mmol/L (136-145)
[2024-07-19 06:59] LABS: Alanine Aminotransferase 19 U/L (12-78); Alkaline Phosphatase 397 U/L (38-126); Anion Gap 11.7 mEq/L (5-15); Aspartate Amino Transferase 51 U/L (17-59); Bilirubin,Total 1.1 mg/dl (0.2-1.3); Blood Urea Nitrogen 12 mg/dl (9-20); Calcium 8.3 mg/dl (8.4-10.2); Carbon Dioxide 26 mmol/L (22.0-30.0); Creatinine Clearance Estimated 111 mL/min (50-200); Estimated Glomerular Filt Rate 69 ml/min (>60); GFR (African American) 83 ML/MIN (>60); Globulin 3.3 g/dL (1.3-3.2); Glucose 74 mg/dl (74-100); Total Protein,Serum 6.7 g/dl (6.3-8.2)
[2024-07-19 07:06] LABS: Magnesium 1.3 mg/dl (1.6-2.3)
[2024-07-19] MEDS: METOPROLOL SUCCINATE XL 100MG TABLET 100 MG PO ×2 (09:03→21:46)
[2024-07-19] MEDS: SERTRALINE 100MG TABLET 100 MG PO (09:03)
[2024-07-19] MEDS: DIGOXIN 0.125MG TABLET 125 MCG PO (09:03)
[2024-07-19] MEDS: FOLIC ACID 1MG TABLET 1 MG PO (09:03)
[2024-07-19] MEDS: FERROUS SULFATE 325MG TABLET 325 MG PO (09:03)
[2024-07-19] MEDS: THIAMINE 100MG TABLET 100 MG PO (09:03)
[2024-07-19] MEDS: APIXABAN 5MG TABLET 5 MG PO ×2 (09:03→21:46)
--- NOTE | 2024-07-19 10:42 | EXP.ACUTE.PN ---
Subjective *Date: 07/19/24 *Time: 16:37 Medical Exam Vital signs and Labs for Last 24 Hours: Vital Signs Temp Pulse Pulse Pulse Resp BP Pulse Ox 07/19/24 10:00 128 H 19 104/77 L 93 L 07/19/24 09:03 134 H 07/19/24 09:00 07/19/24 08:15 138 H 95 07/19/24 08:00 130 H 07/19/24 08:00 129 H 22 112/68 95 07/19/24 08:00 98.1 F 07/19/24 07:00 07/19/24 06:00 125 H 15 110/79 96 07/19/24 05:00 07/19/24 04:00 120 H 07/19/24 04:00 98.6 F 131 H 19 94 L 07/19/24 03:00 07/19/24 03:00 07/19/24 02:00 111 H 25 H 117/79 95 07/19/24 01:00 07/19/24 00:00 106 H 07/19/24 00:00 98.7 F 07/19/24 00:00 116 H 26 H 106/77 L 94 L 07/18/24 23:00 07/18/24 22:00 116 H 14 117/86 94 L 07/18/24 21:00 07/18/24 20:30 97.8 F 118 H 16 130/88 94 L 07/18/24 20:00 118 H 07/18/24 18:46 07/18/24 18:00 105 H 18 122/87 96 07/18/24 16:50 07/18/24 16:00 98.2 F 116 H 20 106/76 L 95 07/18/24 16:00 130 H 07/18/24 15:06 07/18/24 14:00 07/18/24 14:00 109 H 16 122/87 92 L 07/18/24 13:10 07/18/24 12:00 120 H 07/18/24 12:00 115 H 18 129/76 98 07/18/24 11:15 O2 Del Method 07/19/24 10:00 Room Air 07/19/24 09:03 07/19/24 09:00 Room Air 07/19/24 08:15 Room Air 07/19/24 08:00 07/19/24 08:00 Room Air 07/19/24 08:00 07/19/24 07:00 Room Air 07/19/24 06:00 Room Air 07/19/24 05:00 Room Air 07/19/24 04:00 07/19/24 04:00 Room Air 07/19/24 03:00 Room Air 07/19/24 03:00 Room Air 07/19/24 02:00 Room Air 07/19/24 01:00 Room Air 07/19/24 00:00 07/19/24 00:00 07/19/24 00:00 Room Air 07/18/24 23:00 Room Air 07/18/24 22:00 Room Air 07/18/24 21:00 Room Air 07/18/24 20:30 Room Air 07/18/24 20:00 07/18/24 18:46 Room Air 07/18/24 18:00 Room Air 07/18/24 16:50 Room Air 07/18/24 16:00 Room Air 07/18/24 16:00 07/18/24 15:06 Room Air 07/18/24 14:00 Room Air 07/18/24 14:00 Room Air 07/18/24 13:10 Room Air 07/18/24 12:00 07/18/24 12:00 Room Air 07/18/24 11:15 Room Air Intake and Output 07/18/24 07/19/24 07/19/24 23:59 07:59 15:59 Intake Total 1611 / 2521 283.833 / 283.833 Output Total 2450 / 5025 275 / 275 0 / 275 Balance -839 / -2504 8.833 / 8.833 0 / 8.833 Intake: Intake, Oral Amount 1611 / 2421 200 / 200 Intake, Total IV Amount 83.833 / 83.833 Output: Output, Urine Amount 2450 / 5025 275 / 275 0 / 275 Other: Number of Voids 2 1 Number of Unmeasured Voids 0 1 2 Number of Bowel Movements 1 2 Weight 108.59 kg Patient Weight 07/19/24 23:59 Weight 108.59 kg Laboratory Results - last 24 hr 07/18/24 18:17: Sodium 135 L, Potassium 3.5, Chloride 100, Carbon Dioxide 29, Anion Gap 9.5, BUN 11, Creatinine 1.00, Estimated Creat Clear 128, Estimated GFR 76, Est GFR ( Amer) 93, Glucose 93, Calcium 8.0 L 07/19/24 05:38: WBC 5.7, RBC 3.87 L, Hgb 11.0 L, Hct 35.4 L, MCV 91.5, MCH 28.4, MCHC 31.1 L, RDW 19.9 H, Plt Count 183 D, MPV 11.1 H, Neut % (Auto) 60.1, Lymph % (Auto) 22.4, [place] % (Auto) 12.9 H, Eos % (Auto) 2.4, Baso % (Auto) 1.9, Neut # (Auto) 3.4, Lymph # (Auto) 1.3, [place] # (Auto) 0.7, Eos # (Auto) 0.1, Baso # (Auto) 0.1, Sodium 135 L, Potassium 3.7, Chloride 101, Carbon Dioxide 26, Anion Gap 11.7, BUN 12, Creatinine 1.10, Estimated Creat Clear 111, Estimated GFR 69, Est GFR ( Amer) 83, Glucose 74 D, Calcium 8.3 L, Magnesium 1.3 L D, Total Bilirubin 1.1, AST 51, ALT 19, Alkaline Phosphatase 397 H, Total Protein 6.7, Albumin 3.4 L D, Globulin 3.3 H, Albumin/Globulin Ratio 1.0 L I & O for Labs for Last 24 Hours: Intake & Output 07/16/24 07/17/24 07/18/24 07/19/24 23:59 23:59 23:59 23:59 Intake Total 1467 / 1467 2521 / 2521 283.833 / 283.833 Output Total 955 / 1355 4425 / 4425 4825 / 5025 275 / 275 Balance -955 / -1135 -2958 / -2958 -2304 / -2504 8.833 / 8.833 Weight 116.891 kg 116.891 kg 113.625 kg 108.59 kg Assessment and Plan *Assessment and plan (1) Acute on chronic systolic heart failure: Status: Acute Category: Medical Code(s): I50.23 - Acute on chronic systolic (congestive) heart failure (2) Atrial fibrillation with rapid ventricular response: Status: Acute Category: Medical Code(s): I48.91 - Unspecified atrial fibrillation (3) Hypomagnesemia: Status: Acute Category: Medical Code(s): E83.42 - Hypomagnesemia (4) Hypothyroidism: Status: Acute Category: Medical Code(s): E03.9 - Hypothyroidism, unspecified (5) Pulmonary edema: Status: Acute Category: Medical Code(s): J81.1 - Chronic pulmonary edema (6) Noncompliance with medications: Status: Acute Category: Medical Code(s): Z91.148 - Patient's other noncompliance with medication regimen for other reason (7) Alcohol abuse: Status: Acute Category: Social Hx Code(s): F10.10 - Alcohol abuse, uncomplicated (8) Alcohol intoxication: Status: Acute Category: Medical Code(s): F10.929 - Alcohol use, unspecified with intoxication, unspecified Plan Alonso Richardson is a 59-year-old male who was admitted for A-fib with RVR, acute on chronic diastolic CHF, and alcohol withdrawal syndrome. Continues to require inpatient management. Necessitating stepdown level of care. Diuresing well, continues to have significant volume overload. Responding to Bumex drip today. Problems addressed as follows: #Atrial fibrillation with RVR #Acute on chronic diastolic congestive heart failure #Pulmonary edema -Remains in A-fib with RVR, heart rate improved to 110-130. Continue digoxin 125 mcg daily. Continue metoprolol succinate 100 mg, increase to twice daily. - No overt signs of cardiogenic shock at this time - Discussed case with cardiology today, recommend continuing Bumex and spironolactone. Continue digoxin. Continue Eliquis and metoprolol. Recommend discontinuing amiodarone/not starting amiodarone due to noncompliance and alcohol abuse. -Continue Bumex drip at 1 mg/h. - Echo from a year ago with EF 30%, severe RV dilation. Elevated RVSP; echo from March with EF 50 to 55%. Severe RV dysfunction. - Oxygenating well on room air while awake, 2 L at night while - negative 6 L since admission. - Low-sodium diet - Noncompliant at home with amiodarone and digoxin. - Kidney function remains normal with BUN 12, creatinine 1.1. Potassium 3.7, magnesium 1.3, replacing per protocol - Repeat CBC, CMP, magnesium ordered for the morning #Acute alcohol intoxication - Alcohol of 337 on admission, tolerating withdrawal protocol well. - Continue CIWA protocol. Valium per protocol. Having mild withdrawal symptoms. - continue daily multivitamins and thiamine #Hypomagnesemia: Replace per protocol, Mg 1.3 on morning labs, repeat CBC, CMP, magnesium ordered for the morning #Hypothyroidism: TSH of 14, continue oral replacement #Medical noncompliance: Complicates all aspects of care FULL Code cardiac diet Eliquis 5mg BID
[2024-07-19] MEDS: CALCIUM POLYCARBOPHIL 625MG TAB 1250 MG PO ×2 (10:57→21:46)
[2024-07-19] MEDS: MAGNESIUM SULFATE IN WATER 2 GM/50 ML PIGGYBACK IV ×3 (11:42→14:13)
--- NOTE | 2024-07-19 13:45 | PC.NURSE ---
per Chema in Pharmacy, Magnesium and Bumex drip are compatible. 1322
--- NOTE | 2024-07-19 13:55 | CARE MANAGER ---
Addendum entered by Sandie Jackson RN 07/20/24 16:20: Spoke with patient again to reiterate that we have concerns regarding his safety at home. We feel some inpatient therapy will be beneficial as well as the MD and therapists feel this way as well. He continues to adamantly refuse to go for rehab. He requested a wheelchair and has it, but will likely be unable to get into his house by himself if he were to take [facility] transport home. He cannot get ahold of anybody to take him home. He then realized his keys are in his house locked up and the only other person to have a mariano is Alex. Alonso is going to continue to try to reach Alex. If unable to reach him there are no options for him to get home and we can reassess tomorrow. Addendum entered by Haritha Hayden 07/20/24 14:17: Kristen and Darvin spoke w/ patient regarding discharge planning this afternoon. Patient is not interested in placement under Medicaid at this time. Patient prefers to return home w/ a wheel chair ordered and be set up to return to [facility] outpatient PT services. CM will set up outpatient PT services. Patient stated that he will have transportation home today. Original Note: Spoke with patient related to rehab placement for therapy. Patient is not agreeable to this and wants to do outpatient therapy. We discussed his safety at home and the importance of working with therapy while he is here.
--- NOTE | 2024-07-19 13:59 | PC.NURSE ---
Pt was able to ambulate to the bathroom and back several times this shift with standby assistance and walker. pt gait noted to be unsteady. when getting out of bed pt had difficulty lifting his left leg and transitioning it to the floor. pt did stay up to the chair from 1200 until 1340.
--- NOTE | 2024-07-19 14:01 | P.CONCA_ITS ---
History of Present Illness History of Present Illness Consult date: 07/19/24 Requesting physician: Richie Parra Consult reason: congestive heart failure Chief complaint: SOA, edema Additional Medical History:: 1. History of A-fib, converted to sinus rhythm with Cardizem A. Anticoagulation with Eliquis started 07/2021 B. ANTONETTE with cardioversion, 03/25/2023, EF 30%, severe RV dilation with severe RV reduction in function, mild AI, severe TR. No LA or SERGEY thrombus. Unsuccessful cardioversion x 2. Started on Amio IV. C. Converted to sinus rhythm on IV amiodarone 03/2023 2. History of alcohol abuse A. Alcoholic cirrhosis 3. Hypertension 4. Tobacco abuse A. COPD 5. Hyperlipidemia 6. History of cor pulmonale with HFrEF (30%, echo, 03/2023) History of present illness: 59-year-old white male with history of A-fib, alcohol abuse and HFpEF admitted for complaints of lower extremity edema. Patient admits noncompliance with medication and continues to drink. Admission alcohol level was 334. Heart rate was in the 150s with A-fib and RVR. BNP noted to be 5000 with a TSH of 14. Chest x-ray compatible with pulmonary edema. Cardiology consulted for heart rate control and was started on oral metoprolol with intermittent IV pushes. Patient's heart rate has bursts consistently been in the 100 to 130 bpm range despite digoxin and a total of metoprolol succinate 200 mg daily. He has developed diarrhea over the last 24 hours and has not slept well. He has not he is only on IV Bumex drip with good urine output of over 6 L during this stay. H e states his lower extremity edema and his breathing has improved. CT of the chest on admission showed no evidence of pulmonary embolus. There was a question of pancreatitis or duodenitis with fatty liver. Cardiology consulted for HFrEF and A-fib rate control [facility] Disclaimer: The information contained in this section may have been updated after the patient was seen, as this information can be updated by other users. 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 Testicular swelling, right Hypertension Tobacco abuse Alcohol abuse Tobacco use Paroxysmal atrial fibrillation Alcoholism Anxiety GERD (gastroesophageal reflux disease) Laceration of finger, left, complicated COPD (chronic obstructive pulmonary disease) Pulmonary hypertension Cirrhosis, alcoholic CHF (congestive heart failure) Hypertension Atrial fibrillation with rapid ventricular response Exposure to COVID-19 virus Surgical History History of discectomy History of cardiac radiofrequency ablation Family History Other Cancer Hypertension Stroke Substance abuse Social History (Updated 07/16/24 @ 22:53 by Yanet Iniguez RN) Smoking Status: Current every day smoker tobacco type: cigarettes packs per day: 2 alcohol intake: current alcohol intake frequency: 3 or more drinks per day substance use type: denies use current occupational status: employed Travel in the last 8 weeks?: None household members: significant other housing: house 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 current occupational exposures/hazards: No caffeine: Yes Have you lived/traveled outside [place] in past 30 days?: No Contact w/someone who lives/traveled outside [place] past 30 days?: No Exposure to someone with infectious disease in past 14 days?: No Do you have a fever (greater than 100.4 F or 38 C)?: No Have you tested positive for COVID-19?: No Exposed to someone with COVID-19 in past 14 days?: No Do you have a sore throat?: No Do you have a cough?: No Do you have any weakness?: No Are you experiencing any nausea/vomitting?: No Do you have any diarrhea?: No Are you experiencing any unusual bleeding?: No Do you have any muscle aches/pain?: No Do you have any abdominal pain?: No Are you experiencing loss of taste or smell?: No Review of Systems Review of Systems Review of systems:: pertinent systems reviewed and negative unless documented below *Cardiovascular Cardiovascular: Reports dyspnea and Reports irregular heart rhythm *Respiratory Respiratory: Reports dyspnea Exam Data for Last 24 hours Vital signs and Labs for Last 24 Hours: Temp Pulse Resp BP Pulse Ox O2 Del Method O2 Flow Rate 98.4 F 128 H 19 104/77 L 93 L Room Air 3 07/19/24 11:44 07/19/24 10:00 07/19/24 10:00 07/19/24 10:00 07/19/24 10:00 07/19/24 13:34 07/18/24 06:41 Laboratory Results - last 24 hr 07/18/24 18:17: Sodium 135 L, Potassium 3.5, Chloride 100, Carbon Dioxide 29, Anion Gap 9.5, BUN 11, Creatinine 1.00, Estimated Creat Clear 128, Estimated GFR 76, Est GFR ( Amer) 93, Glucose 93, Calcium 8.0 L 07/19/24 05:38: WBC 5.7, RBC 3.87 L, Hgb 11.0 L, Hct 35.4 L, MCV 91.5, MCH 28.4, MCHC 31.1 L, RDW 19.9 H, Plt Count 183 D, MPV 11.1 H, Neut % (Auto) 60.1, Lymph % (Auto) 22.4, [place] % (Auto) 12.9 H, Eos % (Auto) 2.4, Baso % (Auto) 1.9, Neut # (Auto) 3.4, Lymph # (Auto) 1.3, [place] # (Auto) 0.7, Eos # (Auto) 0.1, Baso # (Auto) 0.1, Sodium 135 L, Potassium 3.7, Chloride 101, Carbon Dioxide 26, Anion Gap 11.7, BUN 12, Creatinine 1.10, Estimated Creat Clear 111, Estimated G FR 69, Est GFR ( Amer) 83, Glucose 74 D, Calcium 8.3 L, Magnesium 1.3 L D, Total Bilirubin 1.1, AST 51, ALT 19, Alkaline Phosphatase 397 H, Total Protein 6.7, Albumin 3.4 L D, Globulin 3.3 H, Albumin/Globulin Ratio 1.0 L I & O for Last 24 hours: Intake & Output 07/17/24 07/18/24 07/19/24 07/20/24 11:59 11:59 11:59 11:59 Intake Total 887 / 887 1250 / 1250 2764.833 / 2764.833 Output Total 3555 / 3555 2950 / 3950 4275 / 4275 Balance -2668 / -2668 -1700 / -2700 -1510.167 / -1510.167 Weight 257 lb 11.2 oz 250 lb 8 oz 239 lb 6.4 oz Constitutional Constitutional: no acute distress *Routine Respiratory Exam Respiratory: Present decreased breath sounds, rhonchi and crackles *Routine Cardiovascular Exam Cardiovascular: Present irregularly irregular *Routine Extremities Exam Extremities: Present edema Meds Home Medications and Allergies Home Medications ?Medication ?Instructions ?Recorded ?Confirmed ?Type digoxin 125 mcg (0.125 mg) tablet 125 mcg PO DAILY 05/12/24 07/17/24 History apixaban 5 mg tablet (Eliquis) 5 mg PO BID #180 tabs 06/15/24 07/17/24 Rx ferrous sulfate 324 mg (65 mg 324 mg PO DAILY #90 tabs 06/15/24 07/17/24 Rx iron) tablet,delayed release folic acid 1 mg tablet 1 mg PO DAILY #90 tabs 06/15/24 07/17/24 Rx metoprolol succinate 100 mg 100 mg PO DAILY #30 tabs 06/15/24 07/17/24 Rx tablet,extended release 24 hr amiodarone 200 mg tablet 200 mg PO DAILY 07/16/24 07/17/24 History bumetanide 1 mg tablet 1 mg PO BIDL 07/16/24 07/17/24 History levothyroxine 125 mcg tablet 125 mcg PO DAILYDM 07/16/24 07/17/24 History sertraline 100 mg tablet 100 mg PO DAILY 07/16/24 07/17/24 History thiamine HCl (vitamin B1) 100 mg 100 mg PO DAILY 07/16/24 07/17/24 History tablet trazodone 100 mg tablet 100 mg PO HS 07/17/24 07/17/24 History New Prescriptions to Start Prescriptions: Allergies Allergy/AdvReac Type Severity Reaction Status Date / Time hydrochlorothiazide AdvReac Unknown Other Verified 06/15/24 10:14 Assessment and Plan *Assessment and plan (1) Acute on chronic heart failure with preserved ejection fraction (HFpEF): Status: Acute Category: Medical Code(s): I50.33 - Acute on chronic diastolic (congestive) heart failure (2) Atrial fibrillation with rapid ventricular response: Status: Acute Category: Medical Code(s): I48.91 - Unspecified atrial fibrillation (3) Pancreatic abnormality: Status: Acute Category: Medical Code(s): 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 Acute on chronic HFimpEF (previously had a EF of 30% in 2023 that improved to 70%, felt secondary to alcohol use) -Continue IV Bumex and add spironolactone -Continue digoxin -Consider ARB if blood pressure tolerates 2. A-fib with RVR chronic right bundle branch block on EKG and remote history of ablation of A-fib -Continue Eliquis and metoprolol -Discontinue amiodarone due to noncompliance and alcohol abuse along with abnormal CT showing fatty liver and possible pancreatitis 3. EtOH abuse pancreatic abnormality on CT this admission -Defer to hospitalist -Getting thiamine and folic acid along with trazodone 4. COPD/tobacco use with cor pulmonale -Tobacco cessation recommended 5. Diarrhea felt secondary to alcohol withdrawal 6. Noncompliance with medications Continue IV Bumex for diuresis Follow renal functions Continue digoxin and metoprolol for rate control Discontinue amiodarone due to noncompliance, alcohol abuse, fatty liver and possible pancreatitis
[2024-07-19] MEDS: diazePAM 5MG TABLET 5 MG PO ×2 (14:17→22:21)
[2024-07-19] MEDS: MULTIVITAMIN TABLET 1 EACH PO (16:55)
--- NOTE | 2024-07-19 18:54 | PEERSUPPORT ---
Peer Support Note Patient Information Patient Information: DOS: 07/19/2024 ? Pt stated he had turned back to drinking, heavily. He says he didn?t really make any changes once he was discharged from hospital, and knew he needed to come back to the hospital for his drinking as well as his health. Pt shared his withdrawals have been bad this time, with hallucinations and hearing voices. ? Pt is aware these are symptoms of alcohol withdrawal syndrome, but says they are freaky .? ? Ps and pt discusses outpatient options once discharged in order to apply and maintain changes of sobriety with the help of recovery community and services offered. ? Motivation: Pts motivation is his dog Josue, who needs him to care for him. He stated he does have someone for transportation to and from [facility]. ? Current Stressors: Alcohol withdrawal symptoms -Hallucinations -Aubile voices ? Plan of action: Ps will follow up on 07/20/2024 Discuss treatment options and willingness of pt. ?
[2024-07-19] MEDS: TRAZODONE 50MG TABLET 100 MG PO (21:46)
[2024-07-20] VITALS (20 sets, daily range): BP systolic 102–131; BP diastolic 71–90; PULSE 73–103; RESP 13–26; TEMP 36.6–36.9; O2SAT 91–100; BMI 30.4
[2024-07-20] MEDS: diazePAM 5MG TABLET 5 MG PO ×3 (01:12→11:53)
[2024-07-20] MEDS: NICOTINE 21MG/24HR PATCH 21 MG TD (02:13)
[2024-07-20] MEDS: BUMETANIDE 10 MG in 0.9 % SODIUM CHLORIDE 60 ML 5 MG IV (02:13)
[2024-07-20] MEDS: diazePAM 10MG/2ML SYRINGE 10 MG IV ×3 (03:52→08:38)
[2024-07-20 05:58] LABS: Basophils # 0.1 K/mm3 (0-0.2); Basophils % 1.7 % (0.1-2.0); Eosinophils # 0.1 Kmm3 (0.0-0.4); Eosinophils % 2.7 % (0.1-12.0); Hematocrit 34.1 % (42.0-52.0); Hemoglobin 10.8 g/dL (14.1-18.0); Immature Granulocytes # 0.01 10^3uL; Immature Granulocytes % 0.2 %; Lymphocytes # 1.4 K/mm3 (0.7-4.5); Lymphocytes % 25.9 % (10-50); Mean Corpuscular HGB Conc 31.7 g/dL (31.8-35.4); Mean Corpuscular Hemoglobin 28.8 pg (27.0-31.2); Mean Corpuscular Volume 90.9 fl (80-94); Mean Platelet Volume 10.6 fl (7.4-10.4); Monocytes # 0.8 K/mm3 (0.1-1.0); Monocytes % 15.9 % (1.7-9.3); Neutrophils # 2.8 K/mm3 (1.8-7.8); Neutrophils % 53.6 % (37.0-80.0); Nucleated Red Blood Cells # 0 10^3/uL; Nucleated Red Blood Cells % 0 %; Platelet Count 190 K/mm3 (142-424); Red Blood Count 3.75 M/mm3 (4.60-6.20); Red Cell Distribution Width 20.4 % (11.5-17.5); Red Cell Distribution Width-SD 64.7 fL; White Blood Count 5.2 K/mm3 (4.8-10.8)
[2024-07-20 06:19] LABS: Alanine Aminotransferase 17 U/L (12-78); Albumin Level 3.2 g/dl (3.5-5.0); Alkaline Phosphatase 341 U/L (38-126); Anion Gap 7.2 mEq/L (5-15); Aspartate Amino Transferase 46 U/L (17-59); Bilirubin,Total 0.8 mg/dl (0.2-1.3); Blood Urea Nitrogen 12 mg/dl (9-20); Calcium 8.4 mg/dl (8.4-10.2); Carbon Dioxide 34 mmol/L (22.0-30.0); Chloride 96 mmol/L (98-107); Creatinine Clearance Estimated 117 mL/min (50-200); Estimated Glomerular Filt Rate 76 ml/min (>60); GFR (African American) 93 ML/MIN (>60); Globulin 3.3 g/dL (1.3-3.2); Glucose 86 mg/dl (74-100); Magnesium 1.6 mg/dl (1.6-2.3); Potassium 3.2 mmoL/L (3.5-5.1); Sodium 134 mmol/L (136-145); Total Protein,Serum 6.5 g/dl (6.3-8.2)
[2024-07-20] MEDS: LEVOTHYROXINE 125MCG (0.125MG) TAB 125 MCG PO (08:46)
[2024-07-20] MEDS: APIXABAN 5MG TABLET 5 MG PO (08:46)
[2024-07-20] MEDS: THIAMINE 100MG TABLET 100 MG PO (08:47)
[2024-07-20] MEDS: METOPROLOL SUCCINATE XL 100MG TABLET 100 MG PO (08:47)
[2024-07-20] MEDS: FOLIC ACID 1MG TABLET 1 MG PO (08:47)
[2024-07-20] MEDS: DIGOXIN 0.125MG TABLET 125 MCG PO (08:47)
[2024-07-20] MEDS: SERTRALINE 100MG TABLET 100 MG PO (08:47)
[2024-07-20] MEDS: CALCIUM POLYCARBOPHIL 625MG TAB 1250 MG PO (08:47)
[2024-07-20] MEDS: FERROUS SULFATE 325MG TABLET 325 MG PO (08:47)
--- NOTE | 2024-07-20 11:08 | EXP.CARD.PN ---
Subjective Subjective Date: 07/20/24 Time: 11:08 Principal diagnosis: CHF, ETOH abuse Interval history: 59-year-old white male in the ICU in no acute distress. Still complains of diarrhea. Continues to have good diuresis with over 8 L of fluid out at this time and improvement in his lower extremity edema Exam Data for Last 24 hours Vital signs and Labs for Last 24 Hours: Temp Pulse Resp BP Pulse Ox O2 Del Method O2 Flow Rate 97.8 F 86 20 129/86 91 L Room Air 2 07/20/24 08:07/20/24 10:07/20/24 10:07/20/24 10:07/20/24 10:07/20/24 10:00 07/20/24 08:15 Laboratory Results - last 24 hr 07/20/24 05:35: WBC 5.2, RBC 3.75 L, Hgb 10.8 L, Hct 34.1 L, MCV 90.9, MCH 28.8, MCHC 31.7 L, RDW 20.4 H, Plt Count 190, MPV 10.6 H, Neut % (Auto) 53.6, Lymph % (Auto) 25.9, [place] % (Auto) 15.9 H, Eos % (Auto) 2.7, Baso % (Auto) 1.7, Neut # (Auto) 2.8, Lymph # (Auto) 1.4, [place] # (Auto) 0.8, Eos # (Auto) 0.1, Baso # (Auto) 0.1, Sodium 134 L, Potassium 3.2 L, Chloride 96 L, Carbon Dioxide 34 H, Anion Gap 7.2, BUN 12, Creatinine 1.00, Estimated Creat Clear 117, Estimated GFR 76, Est GFR ( Amer) 93, Glucose 86, Calcium 8.4, Magnesium 1.6 D, Total Bilirubin 0.8, AST 46, ALT 17, Alkaline Phosphatase 341 H, Total Protein 6.5, Albumin 3.2 L, Globulin 3.3 H, Albumin/Globulin Ratio 1.0 L I & O for Last 24 hours: Intake & Output 07/17/24 07/18/24 07/19/24 07/20/24 11:59 11:59 11:59 11:59 Intake Total 887 / 887 1250 / 1250 2764.833 / 2764.833 1630 / 1630 Output Total 3555 / 3555 2950 / 3950 4275 / 4275 3910 / 3910 Balance -2668 / -2668 -1700 / -2700 -1510.167 / -1510.167 -2280 / -2280 Weight 257 lb 11.2 oz 250 lb 8 oz 239 lb 6.4 oz 229 lb 12.8 oz Constitutional Constitutional: no acute distress *Routine Respiratory Exam Respiratory: Present decreased breath sounds and rhonchi *Routine Cardiovascular Exam Cardiovascular: Present RRR *Routine Extremities Exam Extremities: Present edema *Routine Neurological Exam Neurological: Present alert Progress Note: A&P Assessment and plan (1) Acute on chronic systolic heart failure: Status: Acute (2) Atrial fibrillation with rapid ventricular response: Status: Acute (3) Hypomagnesemia: Status: Acute (4) Hypothyroidism: Status: Acute (5) Pulmonary edema: Status: Acute (6) Noncompliance with medications: Status: Acute (7) Alcohol abuse: Status: Acute (8) Alcohol intoxication: Status: Acute Assessment and Plan Assessment and Plan for All Diagnoses:: 1. Acute on chronic HFimpEF (previously had a EF of 30% in 2023 that improved to 70%, felt secondary to alcohol use) -Continue IV Bumex and add spironolactone -Continue digoxin -Consider ARB if blood pressure tolerates 2. A-fib with RVR chronic right bundle branch block on EKG and remote history of ablation of A-fib -Continue Eliquis and metoprolol -Discontinue amiodarone due to noncompliance and alcohol abuse along with abnormal CT showing fatty liver and possible pancreatitis 3. EtOH abuse pancreatic abnormality on CT this admission -Defer to hospitalist -Getting thiamine and folic acid along with trazodone 4. COPD/tobacco use with cor pulmonale -Tobacco cessation recommended 5. Diarrhea felt secondary to alcohol withdrawal -stool studies negative 6. Chronic anemia, stable around 10-11 -stool negative -likely related to alcohol use and OAC 7. Hypokalemia -adding spironolactone 8. Hypomagnesemia -s/p replacement 9. Noncompliance with medications Increase bumex to 1 mg per hour Add spironolactone Continue to follow renal functions Pt lives alone. Discussed going to rehab but he is not interested at this time.
[2024-07-20] MEDS: levoFLOXacin 750 MG TABLET PO (11:14)
[2024-07-20] MEDS: SPIRONOLACTONE 25MG TABLET 25 MG PO (11:53)
--- NOTE | 2024-07-20 12:52 | CA_ITS ---
FINAL REPORT TECHNIQUE: Ultrasound images of the deep venous system were obtained from the left groin to the calf veins. CLINICAL HISTORY: LEFT LEG EDEMA, LT KNEE INJURY-OLD FINDINGS: The deep venous system is normally compressible. Normal flow is identified. IMPRESSION: No evidence of left lower extremity DVT. Reviewed, Interpreted and Dictated by Yara Hernandez MD Transcribed by Gisell De [employer]henticated and [facility]
--- NOTE | 2024-07-20 14:22 | EXP.DC.SUM ---
General Admission date:: 07/16/24 HPI HPI HPI: This is a 59-year-old male with a past medical history of atrial fibrillation, alcohol abuse, HFpEF, hypothyroidism, COPD, recent hip fracture who presents emergency department today with complaints of lower extremity edema. Patient was brought to the emergency department by EMS after his neighbor called EMS for patient's lower extremity edema. He reports since being discharged from the hospital in May for his leg fracture he has not been taking his medications but does continue to drink. Medications that he states he has not been taking include digoxin, blood thinner or any other medications for his atrial fibrillation. Reports drinking 1/5 of alcohol a day and drank just prior to arrival. He reports mild shortness of breath but nothing outside of his baseline. Emergency Department workup notable for acute alcohol intoxication with alcohol level of 334. A-fib with RVR with heart rate in the 150s, although normal blood pressure. proBNP of 5000. TSH of 14. Normal white blood cell count. Chest imaging with CHF/pulmonary edema with pleural effusions. Right upper lobe peribronchial infiltration. Richard pancreatic head and duodenal inflammation although lipase negative. Cardiology was consulted for recommendations with A-fib with RVR with a history of noncompliance and systolic heart heart failure. Recommends oral metoprolol, intermittent IV push doses. May initiate esmolol drip if uncontrolled. If becomes decompensated, may start milrinone drip. At time of admission patient's heart rate is improved to 1 teens after oral and IV metoprolol. He is resting comfortably and stable. Denies any current significant complaints at this time. Hospital Course Hospital Course Hospital Course: Alonso Richardson is a 59-year-old male who was admitted for A-fib with RVR, acute on chronic diastolic CHF, and alcohol withdrawal syndrome. #Atrial fibrillation with RVR #Acute on chronic HFpEF #RV failure #Pulmonary edema ? Presented with A-fib RVR, HFpEF exacerbation in the setting of alcohol intoxication. Improved with metoprolol succinate, digoxin. Currently rate controlled. Continue digoxin 125 mcg daily. Continue metoprolol succinate 100 mg, increase to twice daily. ? Clinically improved with Bumex drip, spironolactone, digoxin 125 mcg, metoprolol succinate 100 mg twice daily, Eliquis 5 mg twice daily. Cardiology recommended against amiodarone due to history of alcohol use disorder and medical nonadherence. Transitioned to Bumex 2 mg daily, spironolactone 25 mg daily. Weaned to room air. - Echo from a year ago with EF 30%, severe RV dilation. Elevated RVSP; echo from March with EF 50 to 55%. Severe RV dysfunction. ? Will follow-up with cardiology within 2 weeks. #Acute alcohol intoxication - Alcohol of 337 on admission. Monitored on CIWA protocol, no significant withdrawal symptoms. #Hypothyroidism: TSH of 14, continue levothyroxine 125 mcg. Likely from medication nonadherence. #Medical noncompliance: Complicates all aspects of care Total time spent on discharge: 32 minutes on chart review, counseling, documentation, and direct care with patient. Exam Data for Last 24 hours Vital signs and Labs for Last 24 Hours: Temp Pulse Resp BP Pulse Ox O2 Del Method O2 Flow Rate 98.0 F 89 19 104/80 L 96 Room Air 2 07/20/24 12:21 07/20/24 13:49 07/20/24 13:49 07/20/24 13:49 07/20/24 13:49 07/20/24 13:49 07/20/24 08:15 Laboratory Results - last 24 hr 07/20/24 05:35: WBC 5.2, RBC 3.75 L, Hgb 10.8 L, Hct 34.1 L, MCV 90.9, MCH 28.8, MCHC 31.7 L, RDW 20.4 H, Plt Count 190, MPV 10.6 H, Neut % (Auto) 53.6, Lymph % (Auto) 25.9, [place] % (Auto) 15.9 H, Eos % (Auto) 2.7, Baso % (Auto) 1.7, Neut # (Auto) 2.8, Lymph # (Auto) 1.4, [place] # (Auto) 0.8, Eos # (Auto) 0.1, Baso # (Auto) 0.1, Sodium 134 L, Potassium 3.2 L, Chloride 96 L, Carbon Dioxide 34 H, Anion Gap 7.2, BUN 12, Creatinine 1.00, Estimated Creat Clear 117, Estimated GFR 76, Est GFR ( Amer) 93, Glucose 86, Calcium 8.4, Magnesium 1.6 D, Total Bilirubin 0.8, AST 46, ALT 17, Alkaline Phosphatase 341 H, Total Protein 6.5, Albumin 3.2 L, Globulin 3.3 H, Albumin/Globulin Ratio 1.0 L I & O for Last 24 hours: Intake & Output 07/17/24 07/18/24 07/19/24 07/20/24 23:59 23:59 23:59 23:59 Intake Total 1467 / 1467 2521 / 2521 1993.833 / 2233.833 798.917 / 798.917 Output Total 4425 / 4425 4825 / 5025 1925 / 2325 2810 / 2810 Balance -2958 / -2958 -2304 / -2504 68.833 / -91.167 -3 / - Weight 116.891 kg 113.625 kg 108.59 kg 104.236 kg Constitutional Constitutional: no acute distress *Routine HEENT Exam Head: Present normocephalic Eye: Present EOMI and PERRL ENT: Present mucous membranes moist *Routine Neck Exam Neck: Present supple; Absent lymphadenopathy *Routine Respiratory Exam Respiratory: Present CTA bilaterally *Routine Cardiovascular Exam Cardiovascular: Present RRR *Routine Abdominal Exam Abdominal: Present soft and normoactive bowel sounds; Absent tenderness *Routine Extremities Exam Extremities: Absent cyanosis, clubbing or edema *Routine Skin Exam Skin: Present warm; Absent rash *Routine Neurological Exam Neurological: Present alert and oriented X3 Results Data Completed and Pending Labs on day of discharge: Labs from last 24 hours 07/20/24 05:35 WBC 5.2 RBC 3.75 L Hgb 10.8 L Hct 34.1 L MCV 90.9 MCH 28.8 MCHC 31.7 L RDW 20.4 H Plt Count 190 MPV 10.6 H Neut % (Auto) 53.6 Lymph % (Auto) 25.9 [place] % (Auto) 15.9 H Eos % (Auto) 2.7 Baso % (Auto) 1.7 Neut # (Auto) 2.8 Lymph # (Auto) 1.4 [place] # (Auto) 0.8 Eos # (Auto) 0.1 Baso # (Auto) 0.1 Sodium 134 L Potassium 3.2 L Chloride 96 L Carbon Dioxide 34 H Anion Gap 7.2 BUN 12 Creatinine 1.00 Estimated Creat Clear 117 Estimated GFR 76 Est GFR ( Amer) 93 Glucose 86 Calcium 8.4 Magnesium 1.6 D Total Bilirubin 0.8 AST 46 ALT 17 Alkaline Phosphatase 341 H Total Protein 6.5 Albumin 3.2 L Globulin 3.3 H Albumin/Globulin Ratio 1.0 L DS: Diagnosis Discharge Diagnosis (1) Acute on chronic systolic heart failure: Status: Acute Code(s): I50.23 - Acute on chronic systolic (congestive) heart failure (2) Atrial fibrillation with rapid ventricular response: Status: Acute Code(s): I48.91 - Unspecified atrial fibrillation (3) Hypomagnesemia: Status: Acute Code(s): E83.42 - Hypomagnesemia (4) Hypothyroidism: Status: Acute Code(s): E03.9 - Hypothyroidism, unspecified (5) Pulmonary edema: Status: Acute Code(s): J81.1 - Chronic pulmonary edema (6) Noncompliance with medications: Status: Acute Code(s): Z91.148 - Patient's other noncompliance with medication regimen for other reason (7) Alcohol abuse: Status: Acute Code(s): F10.10 - Alcohol abuse, uncomplicated (8) Alcohol intoxication: Status: Acute Code(s): F10.929 - Alcohol use, unspecified with intoxication, unspecified Meds Home Medications and Allergies Home Medications ?Medication ?Instructions ?Recorded ?Confirmed ?Type digoxin 125 mcg (0.125 mg) tablet 125 mcg PO DAILY 05/12/24 07/17/24 History apixaban 5 mg tablet (Eliquis) 5 mg PO BID #180 tabs 06/15/24 07/17/24 Rx ferrous sulfate 324 mg (65 mg 324 mg PO DAILY #90 tabs 06/15/24 07/17/24 Rx iron) tablet,delayed release folic acid 1 mg tablet 1 mg PO DAILY #90 tabs 06/15/24 07/17/24 Rx metoprolol succinate 100 mg 100 mg PO DAILY #30 tabs 06/15/24 07/17/24 Rx tablet,extended release 24 hr levothyroxine 125 mcg tablet 125 mcg PO DAILYDM 07/16/24 07/17/24 History sertraline 100 mg tablet 100 mg PO DAILY 07/16/24 07/17/24 History thiamine HCl (vitamin B1) 100 mg 100 mg PO DAILY 07/16/24 07/17/24 History tablet trazodone 100 mg tablet 100 mg PO HS 07/17/24 07/17/24 History bumetanide 2 mg tablet 2 mg PO DAILY #30 tabs 07/20/24 Rx levofloxacin 750 mg tablet 750 mg PO 1100 4 days #4 tabs 07/20/24 Rx spironolactone 25 mg tablet 25 mg PO DAILY 30 days #30 tabs 07/20/24 Rx New Prescriptions to Start Prescriptions: bumetanide Jorje Anderson levofloxacin Jorje Anderson spironolactone Jorje Anderson Allergies Allergy/AdvReac Type Severity Reaction Status Date / Time hydrochlorothiazide AdvReac Unknown Other Verified 06/15/24 10:14 Discharge Plan Disposition Patient Disposition: Home, Self-Care Condition: Fair Discharge Order Discharge Orders: Discharge Order (Routine); Ordered 07/20/24 Ordered By: Jorje Anderson Follow up Plan Follow up with: Jai Kate APRN [Primary Care Provider, Family Practice] - 07/27/24 2:00 pm Eduardo Mas PA [Physician [employer] Guidance Counselor, Cardiology] - 08/02/24 11:00 am Prescriptions/Medication Reconciliation: New spironolactone 25 mg Tablet 25 mg PO DAILY 30 Days Qty: 30 0RF levofloxacin 750 mg Tablet 750 mg PO 1100 4 Days Qty: 4 0RF bumetanide 2 mg tablet 2 mg PO DAILY Qty: 30 0RF Continued folic acid 1 mg tablet 1 mg PO DAILY Qty: 90 0RF ferrous sulfate 324 mg (65 mg iron) tablet,delayed release (DR/EC) 324 mg PO DAILY Qty: 90 0RF Eliquis 5 mg tablet 5 mg PO BID Qty: 180 0RF metoprolol succinate 100 mg tablet extended release 24 hr 100 mg PO DAILY Qty: 30 2RF digoxin 125 mcg (0.125 mg) tablet 125 mcg PO DAILY sertraline 100 mg tablet 100 mg PO DAILY Patient Comments: TAKE ONE TABLET BY MOUTH EVERY DAY thiamine HCl (vitamin B1) 100 mg tablet 100 mg PO DAILY Patient Comments: TAKE ONE TABLET BY MOUTH EVERY DAY levothyroxine 125 mcg tablet 125 mcg PO DAILYDM Patient Comments: TAKE ONE TABLET BY MOUTH EVERY DAY IN THE MORNING trazodone 100 mg Tablet 100 mg PO HS Discontinued amiodarone 200 mg tablet 200 mg PO DAILY bumetanide 1 mg tablet 1 mg PO BIDL Patient Comments: TAKE ONE TABLET BY MOUTH TWICE DAILY Problem Reconciliation Problems Reviewed?: Yes Patient Discharge Instructions Patient Instructions: DI for Heart Failure, DI for Atrial Fibrillation, DI for Alcohol Use Disorder, Stop Light Heart Failure Print Language: Icelandic Providers Primary Care Provider: Jai Kate Admit Provider: Richie Parra Attending Provider: Richie Parra
--- NOTE | 2024-07-20 14:28 | CARE MANAGER ---
Addendum entered by Sandie Jackson RN 07/20/24 14:31: Patient requested [facility] to provide wheelchair. Original Note: Patient requires wheelchair to safely transport to the bathroom at home as he is not able to safely do this with a cane or walker.
--- NOTE | 2024-07-20 15:37 | SW/DCPLANNER ---
Called therapy and scheduled patient appointments for physical therapy on August 03 at 2 and occupational therapy on July 23 at 1. I took the post it note to patient's room and verbally told patient and gave him the post it note. Boo Loaiza
--- NOTE | 2024-07-20 17:42 | PC.NURSE ---
1251 - Dr. Anderson contacted r/t pt wishes to be discharged. Pt is A/O x4 and adamant that his friend, Alex, will come and get him. 1330 - Dr. Anderson @ bedside having lengthy conversation about discharging pt home v a stay in a rehab facility for physical therapy. Concern for pt's safety and risk for falling when returning home, pt remains adamant that he wishes to go home and refuses placement at this time. Case management notified of need for a wheelchair. Pt has a rollator/walker at home, as well as a ramp to get into his home. States no further needs/ assistance. 1422 - DC order placed by . Pt notified that DC order has been placed and nursing is till working on paperwork and coordinating care. Pt states he just wants to get out of here. Educated pt on importance of staying to get follow-up appointments and new medications. Pt working on getting a ride home, unable to reach his friend Alex at this time. 1500 - Rebecca w/ peer support at bedside speaking to pt. Pt's meds brought to pt via [id number]. Reviewed by inpt pharmacy, verbalized understanding. Dr. Anderson aware of difficulty finding transportation. Pt not a candidate for the care-a-van d/t need for wheelchair and does not have money to use [facility]. Nursing staff and pt have continued to try to contact family/friends for transportation, no answer. Clothes brought up for pt from clothing donations, and assisted w/ dressing by staff 1600 - Pt able to get ahold of Ping, neighbor, who states she could be at his house if he was able to come by [facility] to help w/ getting pt into his home. Pt states his friend Alex has his keys to his home and wouldn't be able to get in. 1610 - Alex called back and states he will come and get pt. 1645 - Pt DC'd w/ his friend Alex by Tiffanie Duran RN. Taken by wheelchair and DC instructions reviewed again w/ pt and his friend.
--- NOTE | 2024-07-20 19:09 | PEERSUPPORT ---
Peer Support Note Patient Information Patient Information: DOS: 07/20/2024 ? Pt setting up in chair stated he was being discharged, and friend Alex was here to get him. ? Ps discussed [facility] [place] to receive outpatient treatment for alcohol use disorder. ? Pt agrees? requesting appointment. ? Ps scheduled [facility] [place] appointment through referral on Friday07/21/2024 @ 2pm ? Ps and pt openly discusses the effects of alcohol on one's health overall, physically, mentally, and emotionally. ? Safety Plan for once discharged: -Refrain from drinking alcohol -Keep cell phone close by and charged -Call 911 for medical attention - Discuss with friend Alex his recovery plan, and request daily check ins. Possibly stay with him for a few hours a day. -Attend [facility] [place] appointment on 07/21/2024 @ 2:00 pm
--- NOTE | 2024-07-22 10:41 | SW/DCPLANNER ---
Phoned patient x2. Patient's mailbox is full and cant accept any new messages. Boo Loaiza
[2024-07-31 12:21] LABS: Vitamin B1 173.3
== END 2024-07-20 16:45 | disposition home or self-care (01) | DRG 291 ==
LOC: ER 18:10 → 2ND 07-17 06:21 → ICU 07-19 20:27
PROVIDERS: Nurse Practitioner Acute Care; Admitting Provider Internal Medicine Adolescent Medicine; Emergency Provider Emergency Medicine; PCP Nurse Practitioner Family; Visit Provider Internal Medicine Adolescent Medicine
DX: I11.0 Hypertensive heart disease with heart failure (principal); I50.33 Acute on chronic diastolic (congestive) heart failure; F10.139 Alcohol abuse with withdrawal, unspecified; I27.81 Cor pulmonale (chronic); J44.9 Chronic obstructive pulmonary disease, unspecified; E83.42 Hypomagnesemia; E03.9 Hypothyroidism, unspecified; F10.129 Alcohol abuse with intoxication, unspecified; Y90.8 Blood alcohol level of 240 mg/100 ml or more; R19.7 Diarrhea, unspecified; F17.210 Nicotine dependence, cigarettes, uncomplicated; I48.91 Unspecified atrial fibrillation; I45.10 Unspecified right bundle-branch block; K70.30 Alcoholic cirrhosis of liver without ascites; E87.6 Hypokalemia; Z79.890 Hormone replacement therapy; Z91.148 Patient's other noncompliance with medication regimen for other reason; Z79.01 Long term (current) use of anticoagulants; Z79.899 Other long term (current) drug therapy; Z88.8 Allergy status to other drugs, medicaments and biological substances
CPT/HCPCS: 36415; 71045; 71275; 80048; 80053; 80162; 80307; 80320; 81001; 82607; 82746; 82803; 83605; 83690; 83735; 83880; 84100; 84425; 84436; 84443; 84466; 85025; 85378; 85610; 85730; 86803; 87389; 87506; 93005; 93971; 97162; 97530; 99291; J1160; J1644; J1939; J2405; J3360; J3475; Q9967

== ENCOUNTER 2024-08-06 19:00 | Inpatient (IN) | payer MEDICAID, SELFPAY ==
[2024-08-06] VITALS (8 sets, daily range): BP systolic 117–145; BP diastolic 85–104; PULSE 95–130; RESP 14–26; TEMP 36.6–37.1; O2SAT 97–98; BMI 33.0
--- NOTE | 2024-08-06 19:00 | ECG_ITS ---
APPROVED REPORT Exam: Resting ECG HR:130 bpm ECG Measurements Heart Rate 130 AXES QRSd 157 QRS 96 QT 357 T 42 QTc 434 Conclusion ATRIAL FIBRILLATION WITH RAPID VENTRICULAR RESPONSE RIGHT BUNDLE BRANCH BLOCK [120+ ms QRS DURATION, UPRIGHT V1, 40+ ms S IN I/aVL/V4/V5/V6] ABNORMAL ECG No STEMI Electronically signed by : ADAM BUCIO, 08/07/2024 03:52:07
--- OUTSIDE RECORDS SUMMARY | 2024-08-06 19:13 | XMS_ITS | Encounter Summary ---
Author Organization [facility] Address [address] [place] [address] Care Team Providers Care Rate Clerk Passenger Name Role Phone Unavailable Primary Care Provider Unavailabl e Encounter Details Date Type Department Care Team (Late st Contact Info) Description 04/15/2019 Transcribed Document [facility] [place] [address] [place] [address] ProviderSharon MD [address] [place] [address] Social History Tobacco Use Types Packs/Day Years Used Date Smoking Tobacco: Never Assessed Sex and Gender Information Value Date Recorded Sex Assigned at Not on file Legal Sex Male 6:54 PM CDT Gender Identity Not on file Sexual Orientation Not on file documented as of this encounter Miscellaneous Notes * Cerner Conversion Note - Historical ProviderMD - 04/15/2019 10:16 AM SIGNS CLEANER Attempt to Treat, OT Entered On: 04/15/2019 12:02 EST Performed On: 04/15/2019 10:16 EST by Zeyad Nation STUDENT-OCCUPATIONAL THERAPIST Attempt to Treat Notification : OTR/L has reviewed and agrees CHARLEY CAROLINA OTR/Kavin - 04/15/2019 12:24 EST Unable to Treat Due To : Patient Refusal Zeyad Nation STUDENT-OCCUPATIONAL THERAPIST - 04/15/2019 12:01 EST Inability to Treat Comment : Pt refused OT tx. Will follow up as schedule allows. CHARLEY CAROLINA OTR/Kavin - 04/15/2019 12:24 EST documented in this encounter Plan of Treatment Not on file documented as of this encounter Visit Diagnoses Not on filedocumented in this encounter
--- OUTSIDE RECORDS SUMMARY | 2024-08-06 19:14 | XMS_ITS | Encounter Summary ---
Author Organization [employer] Address [address] [place] [address] Care Team Providers Care Relationship Assoc Name Role Phone Unavailable Primary Care Provider Unavailabl e Encounter Details Date Type Department Care Team (Late st Contact Info) Description 04/14/2019 Transcribed Document [facility] [place] [address] [place] [address] ProviderSharon MD [facility] [place] [place] [address] Social History Tobacco Use Types Packs/Day Years Used Date Smoking Tobacco: Never Assessed Sex and Gender Information Value Date Recorded Sex Assigned at Not on file Legal Sex Male 6:54 PM CDT Gender Identity Not on file Sexual Orientation Not on file documented as of this encounter Miscellaneous Notes * Cerner Conversion Note - Sharon Phillips MD - 04/14/2019 7:44 AM 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 Patient: RAUDEL ZEPEDA Age: 54 years Sex: Male : 1965 Associated Diagnoses: None Author: JEANNE CONLEY MD-CAR Basic Information Corporate Recycling Manager: Bisi Subjective NAD Health Status Allergies: Allergic Reactions (Selected) No Known Allergies, Allergies (1) Active Reaction No Known Allergies None Documented Current medications: (Selected) Inpatient Medications Ordered Aldactone: 25 mg, Oral, Daily Ativan: 1 mg, IV Push, Q30Min, PRN: Other (See Comment) Ativan: 1 mg, Oral, Q30Min, PRN: Other (See Comment) Ativan: 2 mg, IV Push, Q30Min, PRN: Other (See Comment) Ativan: 2 mg, Oral, Q30Min, PRN: Other (See Comment) Ativan: 3 mg, IV Push, Q30Min, PRN: Other (See Comment) Ativan: 3 mg, Oral, Q30Min, PRN: Other (See Comment) Ativan: 4 mg, IV Push, Q30Min, PRN: Other (See Comment) Ativan: 4 mg, Oral, Q30Min, PRN: Other (See Comment) Diovan: 160 mg, Oral, Daily DuoNeb 0.5 mg-2.5 mg/3 mL inhalation solution: 3 mL, Nebulized Inhalation, Q6H, PRN: Shortness of Breath Mag-Ox 400: 400 mg, Oral, Daily Normal Saline 1,000 mL: 40 mL/Hr, IntraVENous Pepcid: 20 mg, Oral, Daily Percocet 5/325 oral tablet: 1 Tab, Oral, Q6H, PRN: Pain (Moderate 4-6) Phenergan: 6.25 mg, IntraVENous, Q6H, PRN: Nausea Serax: 10 mg, Oral, TID Toprol-XL: 25 mg, Oral, BID Tylenol: 650 mg, Oral, Q4H, PRN: Other (See Comment) Zofran: 4 mg, IV Push, Q4H, PRN: Nausea Zoloft: 50 mg, Oral, Daily aspirin: 81 mg, Oral, Daily calcium gluconate + Sodium Chloride 0.9% intravenous solution 100 mL: 2 Gram, 20 mL, 120 mL/Hr, IV Piggyback, Daily, PRN: Other (See Comment) calcium gluconate + Sodium Chloride 0.9% intravenous solution 100 mL: 2 Gram, 20 mL, 120 mL/Hr, IV Piggyback, Q12H, PRN: Other (See Comment) calcium gluconate: 1 Gram, 10 mL, 60 mL/Hr, IV Piggyback, Daily, PRN: Other (See Comment) cloNIDine: 0.1 mg, Oral, Q4H, PRN: Hypertension dexmedetomidine injection 400 mcg + NaCl 0.9% for drip 100 mL: Titrate, IntraVENous haloperidol: 2 mg, IntraMuscular, Q4H, PRN: Agitation hydrALAZINE: 10 mg, IV Push, Q6H, PRN: Hypertension labetalol: 20 mg, IV Push, Q1H, PRN: Other (See Comment) levothyroxine: 75 mcg, Oral, Daily magnesium sulfate: 2 Gram, 50 mL, 25 mL/Hr, IV Piggyback, Daily, PRN: Other (See Comment) magnesium sulfate: 2 Gram, 50 mL, 25 mL/Hr, IV Piggyback, Q2H, PRN: Other (See Comment) morphine: 2 mg, IV Push, Q2H, PRN: Pain (Severe 7-10) multivitamin: 1 Tab, Oral, Daily nicotine 21 mg/24 hr transdermal film, extended release: 1 Patch, TransDermal, Daily potassium chloride 10 mEq oral tablet, extended release: 40 mEq, 4 Tab, Oral, Daily potassium chloride 10 mEq/50 mL intravenous solution: 10 mEq, 50 mL, 50 mL/Hr, IV Piggyback, Q1H, PRN: Other (See Comment) potassium chloride 20 mEq oral tablet, extended release: 20 mEq, 1 Tab, Oral, Q2H, PRN: Other (See Comment) potassium chloride 20 mEq oral tablet, extended release: 60 mEq, 3 Tab, Oral, Q2H, PRN: Other (See Comment) sodium phosphate: 15 mMole, 5 mL, 50 mL/Hr, IV Piggyback, Daily, PRN: Other (See Comment) sodium phosphate: 15 mMole, 5 mL, 50 mL/Hr, IV Piggyback, Q6H, PRN: Other (See Comment) thiamine: 100 mg, Oral, Daily Pending Complete influenza virus vaccine, inactivated: 0.5 mL, IntraMuscular, [id number] Documented Medications Documented Metoprolol Tartrate 100 mg oral tablet: 1 Tab, Oral, BID, 0 Refill(s) Zoloft 50 mg oral tablet: 1 Tab, Oral, Daily, 0 Refill(s) doxepin: 10 mg, Oral, At Bedtime, 0 Refill(s) folic acid 0.8 mg oral tablet: 1 Tab, Oral, Daily, 250 Tab, 0 Refill(s) hydroCHLOROthiazide-losartan 12.5 mg-50 mg oral tablet: 1 Tab, Oral, Daily, 0 Refill(s) imiquimod 5% topical cream: 1 Application, Topical, 3x/Wk, apply to affected areas as directed, 24 Each, 0 Refill(s) levothyroxine 75 mcg (0.075 mg) oral tablet: 1 Tab, Oral, Daily, 60 Tab, 0 Refill(s) magnesium oxide 400 mg (241.3 mg elemental magnesium) oral tablet: 1 Tab, Oral, Daily, 0 Refill(s) omeprazole 20 mg oral delayed release capsule: 1 Cap, Oral, Daily, before a meal, 30 Cap, 0 Refill(s), Home Medications (9) Active doxepin 10 mg, Oral, At Bedtime folic acid 0.8 mg oral tablet 0.8 mg = 1 Tab, Oral, Daily hydroCHLOROthiazide-losartan 12.5 mg-50 mg oral tablet 1 Tab, Oral, Daily imiquimod 5% topical cream 1 Application, Topical, 3x/Wk levothyroxine 75 mcg (0.075 mg) oral tablet 75 mcg = 1 Tab, Oral, Daily magnesium oxide 400 mg (241.3 mg elemental magnesium) oral tablet 400 mg = 1 Tab, Oral, Daily Metoprolol Tartrate 100 mg oral tablet 100 mg = 1 Tab, Oral, BID omeprazole 20 mg oral delayed release capsule 20 mg = 1 Cap, Oral, Daily Zoloft 50 mg oral tablet 50 mg = 1 Tab, Oral, Daily , Medications (43) Active Scheduled: (13) aspirin EC 81 mg tab 81 mg 1 Tab, Oral, Daily famotidine 20 mg tab 20 mg 1 Tab, Oral, Daily levothyroxine 75 mcg tab 75 mcg 1 Tab, Oral, Daily magnesium oxide 400 mg tab 400 mg 1 Tab, Oral, Daily metoprolol succinate XL 25 mg tab 25 mg 1 Tab, Oral, BID multiple vitamin (Thera) tab 1 Tab, Oral, Daily nicotine 21 mg/24 hr patch 1 Patch, TransDermal, Daily oxazepam 10 mg cap 10 mg 1 Cap, Oral, TID potassium chloride CR 10 mEq tab 40 mEq 4 Tab, Oral, Daily sertraline 50 mg tab 50 mg 1 Tab, Oral, Daily spironolactone 25 mg tab 25 mg 1 Tab, Oral, Daily thiamine 100 mg tab 100 mg 1 Tab, Oral, Daily valsartan 160 mg tab 160 mg 1 Tab, Oral, Daily Continuous: (2) dexmedetomidine 400 mcg + NaCl 0.9% TITRATE 100 mL 100 mL, IntraVENous NaCl 0.9% 1,000 mL 1,000 mL, IntraVENous, 40 mL/Hr PRN: (28) acetaminophen 325 mg tab 650 mg 2 Tab, Oral, Q4H acetaminophen/oxyCODONE 325/5 mg tab 1 Tab, Oral, Q6H albuterol-ipratropium inh 3 mL 3 mL, Nebulized Inhalation, Q6H calcium gluconate 1 Gram 10 mL, IV Piggyback, Daily calcium gluconate + NaCl 0.9% 100 mL 2 Gram 20 mL, IV Piggyback, Daily calcium gluconate + NaCl 0.9% 100 mL 2 Gram 20 mL, IV Piggyback, Q12H cloNIDine 0.1 mg tab 0.1 mg 1 Tab, Oral, Q4H haloperidol 5 mg/1 mL inj 2 mg 0.4 mL, IntraMuscular, Q4H hydrALAZINE 20 mg/1 mL inj 10 mg 0.5 mL, IV Push, Q6H labetalol 100 mg/20 mL inj 20 mg 4 mL, IV Push, Q1H LORazepam 1 mg tab 1 mg 1 Tab, Oral, Q30Min LORazepam 1 mg tab 2 mg 2 Tab, Oral, Q30Min LORazepam 1 mg tab 3 mg 3 Tab, Oral, Q30Min LORazepam 1 mg tab 4 mg 4 Tab, Oral, Q30Min LORazepam 2 mg/mL inj 1 mg 0.5 mL, IV Push, Q30Min LORazepam 2 mg/mL inj 2 mg 1 mL, IV Push, Q30Min LORazepam 2 mg/mL inj 3 mg 1.5 mL, IV Push, Q30Min LORazepam 2 mg/mL inj 4 mg 2 mL, IV Push, Q30Min magnesium sulfate 2 Gram 50 mL, IV Piggyback, Daily magnesium sulfate 2 Gram 50 mL, IV Piggyback, Q2H morphine 2 mg/1 ml inj 2 mg 1 mL, IV Push, Q2H ondansetron 4 mg/2 mL inj 4 mg 2 mL, IV Push, Q4H potassium chloride 10 mEq 50 mL, IV Piggyback, Q1H potassium chloride CR 20 mEq tab 20 mEq 1 Tab, Oral, Q2H potassium chloride CR 20 mEq tab 60 mEq 3 Tab, Oral, Q2H promethazine 25 mg/1 mL inj 6.25 mg 0.25 mL, IntraVENous, Q6H sodium phosphate 15 mMole 5 mL, IV Piggyback, Daily sodium phosphate 15 mMole 5 mL, IV Piggyback, Q6H Problem list: All Problems Alcohol abuse / SNOMED CT 77879887 / Confirmed Anxiety / SNOMED CT 22345117 / Confirmed History of obstructive sleep apnea / IMO 11913131 / Confirmed Hypertension / SNOMED CT 1880325812 / Confirmed Hypothyroid / SNOMED CT 21185637 / Confirmed Smoker / SNOMED CT 052942882 / Confirmed SVT - Supraventricular tachycardia / SNOMED CT 2618451766 / Confirmed, Active Problems (7) Alcohol abuse Anxiety History of obstructive sleep apnea Hypertension Hypothyroid Smoker SVT - Supraventricular tachycardia Objective Intake and Output 24 hour intake: Total 650 ml 24 hour output: Total 2,275 ml VS/Measurements Vitals Signs (last 24 hrs) Last Charted Minimum Maximum Temp 98 (APR 14 04:00) 97.8 (APR 14 00:00) 99.3 (APR 13 15:35) Apical HR 70 (APR 13 20:25) 64 (APR 13 17:49) 70 (APR 13 20:25) Mon HR 68 (APR 14 07:00) 63 (APR 13 17:00) 83 (APR 13 15:35) Resp Rate 17 (APR 13 16:05) 17 (APR 13 16:05) H 22 (APR 13 15:35) SBP H 176 (APR 14 07:00) 108 (APR 14 02:00) H 176 (APR 14 07:00) DBP 87 (APR 14 07:00) 63 (APR 14 02:00) H 107 (APR 13 15:45) MAP 123 (APR 14 07:00) 80 (APR 14 02:00) 132 (APR 13 15:45) SpO2 98 (APR 14 07:00) L 92 (APR 13 15:50) 100 (APR 13 20:00) No qualifying data available General: Alert and oriented, No acute distress. Eye: Vision unchanged. HENT: No pharyngeal erythema. Neck: Supple, Non-tender, No carotid bruit. Respiratory: Breath sounds: Right, Upper lobe, Lower lobe, Crackles present. Cardiovascular: intermittently tachycardic. Edema: 2+. Gastrointestinal: Soft, Non-tender. Musculoskeletal: Normal range of motion, Normal strength. Integumentary: Warm, Dry, [place], Intact. Neurologic: Alert, Oriented. Psychiatric: Cooperative, Appropriate mood & affect. Results Review APR 14 03:59 L 134 L 100 8 / 79 4.6 31 0.70 \ APR 14 03:59 \ L 12.7 / 6.3 251 / L 38.1 \ ECHO 04/10/2019 Impression: Left ventricle measures upper limits of normal. Normal left ventricular wall thickness. Visually estimated ejection fraction 40% +/- 5%. Abnormal left ventricular systolic function; abnormal systolic strain pattern. Abnormal diastolic function. Abnormal right atrial size. Dilated right ventricle. Abnormal RV Free Wall Strain. Dilated IVC with partial inspiratory collapse. Elevated central venous pressure (>15mmHg). No hemodynamically significant valvular heart disease. No left ventricular masses or thrombi. Lexiscan 04/12/2019 IMPRESSION: Mildly abnormal Lexiscan Myoview perfusion study. Mild partial inferior reversible defect could represent slight difference in positioning between rest and post stress images or mixture of scar and ischemia involving the right coronary artery territory. Normal left ventricular systolic function post stress. Impression and Plan IMPRESSION: Aflutter with RVR -2:1 -hx of ablation at - Dr. Benavidez following/EP Acute CHF- systolic - new diagnosis Decreased LVEF; 40% per ECHO 04/10/2019 Mildly Abnormal Lexiscan 04/12/2019-mixed inferior reversible/fixed defects. EF > 50% HTN - poorly controlled Alcohol abuse - quit using alcohol 2 weeks ago PLAN; 04/14/2019 Aflutter ablation, antiarrhythmics, DOAC per EP. Continue other current CV meds. Will sign-off, call if questions. RV w/ Dr. Mathews. 04/13/2019 No indication for invasive ischemic work-up at this time. Increase Toprol XL. Continue other current CV meds. Aflutter ablation later this week, and antiarrhythmics per EP. 04/12/2019 - Lexiscan myoview today if Precedex can be DCd. Aflutter ablation later this week, and antiarrhythmics per EP. 04/11/2019 Pt in NSR. Amiodarone gtt per EP. EF on ECHO noted. No history of cardiomyopathy in the past. Will need ischemic workup. Plan for Lexiscan in the AM. 04/10/2019 ECHO pending. Ischemic workup once stable. WPW history of ablation no plan for re-ablation as per EP. Aflutter rate controlled on Amiodarone. 04/09/2019 Continue Amiodarone gtt, Cardene if needed to control BP Echocardiogram Urine drug screen TSH, FLP, CBC, CMP, HA1C, troponin in AM Bumex 2mg IV x 1 CXR EP consult in AM documented in this encounter Plan of Treatment Not on file documented as of this encounter Visit Diagnoses Not on filedocumented in this encounter
--- OUTSIDE RECORDS SUMMARY | 2024-08-06 19:14 | XMS_ITS | Referral Summary ---
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
--- OUTSIDE RECORDS SUMMARY | 2024-08-06 19:14 | XMS_ITS | Encounter Summary ---
Author Organization [employer] Address [address] [place] [address] Care Team Providers Care Reducing System Operator Name Role Phone Unavailable Primary Care Provider Unavailabl e Encounter Details Date Type Department Care Team (Late st Contact Info) Description 04/13/2019 Transcribed Document [facility] [place] [address] [place] [address] ProviderSharon MD [address] [place] [address] Social History Tobacco Use Types Packs/Day Years Used Date Smoking Tobacco: Never Assessed Sex and Gender Information Value Date Recorded Sex Assigned at Not on file Legal Sex Male 6:54 PM CDT Gender Identity Not on file Sexual Orientation Not on file documented as of this encounter Miscellaneous Notes * Cerner Conversion Note - Historical ProviderMD - 04/13/2019 2:00 AM 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
--- OUTSIDE RECORDS SUMMARY | 2024-08-06 19:14 | XMS_ITS | Encounter Summary ---
Author Organization [employer] Address [address] [place] [address] Care Team Providers Care Supervisor Powdered Metal Name Role Phone Unavailable Primary Care Provider Unavailabl e Encounter Details Date Type Department Care Team (Late st Contact Info) Description 04/15/2019 Transcribed Document [facility] Family Medicine [address] [place] [address] ProviderSharon MD [address], [place] [id number] Social History Tobacco Use Types Packs/Day Years Used Date Smoking Tobacco: Never Assessed Sex and Gender Information Value Date Recorded Sex Assigned at Not on file Legal Sex Male 6:54 PM CDT Gender Identity Not on file Sexual Orientation Not on file documented as of this encounter Miscellaneous Notes * Cerner Conversion Note - Historical ProviderMD - 04/15/2019 12:32 PM INPATIENT CARE MANAGER RN Patient: RAUDEL ZEPEDA Age: 54 Years Sex: Male : 1965 Admit Date 04/09/2019 18:47 Discharge Date 04/15/2019 Primary Care Provider Erasmo Melendez Discharge Diagnosis Aflutter with RVR prior hx ablation; currently SR following ablation new finding acute systolic chf ef 40% evaluating with cardiology; stress Lexiscan 04/12/2019 IMPRESSION: Mildly abnormal Lexiscan Myoview perfusion study. Mild partial inferior reversible defect could represent slight difference in positioning between rest and post stress images or mixture of scar and ischemia involving the right coronary artery territory. Normal left ventricular systolic function post stress. cardiology recs: 04/14/2019 Aflutter ablation, antiarrhythmics, DOAC per EP. Continue other current CV meds. Will sign-off, call if questions. RV w/ Dr. Mathews. [1] alcohol withdrawl; pt last drink was actually within days of hospitalization; he has resolved w/d symtpoms, on tapering serax only OLOP, dw pt abstinence HTN- Alcohol abuse- nearly a fifth of liquor daily mild hyponatremia improved, remains present in mild form will dc hctz at home so as not to exacerbate this chronic insomnia pt indicates this is a trigger for his alcohol consumption I discussed with him behavioral modification at home including no caffeine, artificial lights prior to attempts at sleep, increased activity during the day, as well as meditation and relaxation techniques to assist in going to sleep. Doxepin added per pcp, will give trial temazepam as well. mild anemia, stable Studies REPORT CHEST ONE VIEW HISTORY: Shortness of breath. COMPARISON: None. FINDINGS: Portable view of the chest demonstrates hazy density over the right lung base probably due to a small right pleural effusion. Left lung is clear. Pulmonary vascularity is normal. Widening of the right paratracheal stripe is seen related to calcified mediastinal lymph nodes. The heart size is normal. IMPRESSION: Increased density right lung base probably due to small right pleural effusion. Upright two-view chest exam may be helpful. [1] ECHO 04/10/2019 Impression: Left ventricle measures upper [...] disease. No left ventricular masses or thrombi. BILATERAL: No evidence of deep venous thrombosis (DVT) or superficial venous thrombosis. [2] Reason for Hospitalization Mr. Zepeda is a 54-year-old male with past medical history of SVT which he reports having intermittently his entire life and has had an ablation in the past. He does not know who did his ablation although he is states he had it done here at [facility], however there are no available records of this procedure here. He reports having intermittent SVT for the last 2 months, for which he went to his primary care for 1 week ago. His primary care referred him back to Dr. Mathews who is his primary patient placement coordinator. When he arrived at Dr. Mathews's office he was tachycardic at which time they got an EKG showing A. fib with RVR, and he was sent to an outside hospital for further evaluation and treatment. 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 He was never hypotensive but they did attempt chemical cardioversion with adenosine which was not successful, and they attempted electrical cardioversion ??2 which was initially successful in restoring sinus rhythm but he did not sustain a sinus rhythm. A call was then placed to our patient placement coordinator counselor nurses' association who recommended amiodarone infusion and transfer for further electrophysiology evaluation. He denies any chest pain, however his H&P from the outside hospital did mention his complaint of left-sided chest pain that was radiating to his left arm. He is relatively asymptomatic with no palpitations, or dizziness. The only reason he knew he was having problems with SVT was that he had some fatigue and low energy while he was working over the past 2 months. He also has had swelling to his bilateral lower extremities which she has never had in the past, which has been worse over the past 2 days. He also has a history of chronic alcohol abuse, drinking approximately 3/4 of a fifth of liquor per day, which she had stopped about 2 weeks ago with the assistance of some sort of by mouth medication. He is unsure what this medication is called but he was concerned it was making his legs swell and he stopped that medication 2 days ago. He denies any complaints of problems urinating, constipation or diarrhea, diaphoresis, or dizziness. He states he originally had the feeling of tremors in his hands when he stopped drinking alcohol 2 weeks ago but that has resolved. [3] Hospital Course Pt was admitted and underwent successful ablation, sinus rhythm acheived. He was seen by cardiology and ep. Stress test performed per cardiology, no further investigation recommended, they signed off with instructions to f/u as outpt. Pt did have some mild withdrawl symtpoms well managed by precedex and bzds in the icu. Precedex off, bzds weaning nearly to off. Pt out on floor doing well. Consultants signed off, pt will be seen by OLOP prior to discharge. Extended length of time discussing with pt need for alcohol abstinence and assistance rendered in regards to thisl. Vital Signs T: 36.4 ??C TMIN: 36.4 ??C TMAX: 36.9 ??C HR: 83(Monitored) RR: 16 BP: 135/94 SpO2: 90% Oxygen Settings (Last) Oxygen Therapy Mode: Room air (04/15/19 04:39:00) Oxygen Flow Rate: 3 Liter/Min (04/14/19 08:40:00) Physical Exam General: appears a bit older than stated age nontoxic no tremors, sitting up in bed, cognition intact. Eye: Pupils are equal, round and reactive to light, Extraocular movements are intact. HENT: Normocephalic, Oral mucosa is moist. Neck: Supple, Non-tender. Respiratory: Respirations are non-labored, Breath sounds are equal, Symmetrical chest wall expansion. Cardiovascular: Normal rate, Regular rhythm, No murmur, Good pulses equal in all extremities, No edema. Gastrointestinal: Soft, Non-tender, Non-distended, Normal bowel sounds. Integumentary: Warm, Dry. Neurologic: Alert, Oriented, No focal deficits, Cranial Nerves II-XII are grossly intact. Psychiatric: Cooperative, Appropriate mood & affect. Discharge Disposition Home Discharge Follow Up BEN MATHEWS - Within 1 month SHILO MONTES DE OCA - Within 1 month ERASMO MELENDEZ (REF), -LEV - Within 2 to 3 days Discharge Medications (16) Active aspirin 81 mg oral delayed release tablet 81 mg = 1 Tab, Oral, Daily doxepin 10 mg, Oral, At Bedtime folic acid 0.8 mg oral tablet 0.8 mg = 1 Tab, Oral, Daily imiquimod 5% topical cream 1 Application, Topical, 3x/Wk levothyroxine 75 mcg (0.075 mg) oral tablet 75 mcg = 1 Tab, Oral, Daily losartan 50 mg oral tablet 50 mg = 1 Tab, Oral, Daily magnesium oxide 400 mg (241.3 mg elemental magnesium) oral tablet 400 mg = 1 Tab, Oral, Daily Metoprolol Tartrate 100 mg oral tablet 100 mg = 1 Tab, Oral, BID multivitamin , Oral, Daily nicotine 14 mg/24 hr transdermal film, extended release 1 Patch, TransDermal, Daily nicotine 21 mg/24 hr transdermal film, extended release 1 Patch, TransDermal, Daily omeprazole 20 mg oral delayed release capsule 20 mg = 1 Cap, Oral, Daily oxazepam 10 mg oral capsule See Instructions Percocet 5/325 oral tablet 1 Tab, PRN, Oral, TID temazepam 15 mg oral capsule 15 mg = 1 Cap, PRN, Oral, Once a day (at bedtime) Zoloft 50 mg oral tablet 50 mg = 1 Tab, Oral, Daily Code Status Start: 04/13/19 13:19:00 EST, Full Code, Continuous Order Condition on Discharge improved Consulting Physicians SHILO MONTES DE OCA MD-CAR (call in AM 28) - MITRA, DAMASO ARCEO MD-ANS CHALKLEY, JUDSON E, MD-ANS Current Diet Order Diet, Adult - Ordered -- Start: 04/13/19 13:19:00 EST, Food Consistency: Regular texture, 60 gm carbs:[id number] hilary, Isolation: Standard Precautions Follow Up Labs/Studies Blood Gases (Current Encounter/Past 24 Hours) No Blood Gas Results Found (Past 24 Hours) Electrolytes(BMP) Results (Current Encounter/Past 24 Hours) Sodium Level 132 mmol/L LOW 04/15/2019 03:25 Potassium Level 4.2 mmol/L 04/15/2019 03:25 Chloride Level 101 mmol/L LOW 04/15/2019 03:25 Carbon Dioxide Level 29 mmol/L 04/15/2019 03:25 Anion Gap 6 LOW 04/15/2019 03:25 Blood Urea Nitrogen 11 mg/dL 04/15/2019 03:25 Glucose Level 95 mg/dL 04/15/2019 03:25 Calcium Level 9.0 mg/dL 04/15/2019 03:25 Creatinine Level 0.90 mg/dL 04/15/2019 03:25 Cardiac Markers (Current Encounter/Past 24 Hours) No Cardiac Marker Results Found (Past 24 Hours) CBC Results (Current Encounter/Past 24 Hours) WBC 6.1 K/uL 04/15/2019 03:07 Hct 38.0 % LOW 04/15/2019 03:07 Hgb 12.8 g/dL LOW 04/15/2019 03:07 Platelet Count 257 K/uL 04/15/2019 03:07 CMP Results (Current Encounter/Past 24 Hours) eGFR >60 mL/min/1.73m2 04/15/2019 03:25 A/G Ratio 0.6 LOW 04/14/2019 04:59 eGFR NonAfrican >60 mL/min/1.73m2 04/15/2019 03:25 Creatinine Level 0.90 mg/dL 04/15/2019 03:25 Globulin 4.3 Gram/dL 04/14/2019 04:59 Protein Total 6.9 Gram/dL 04/14/2019 04:59 Bun/Creatinine 12.2 04/15/2019 03:25 Sodium Level 132 mmol/L LOW 04/15/2019 03:25 Potassium Level 4.2 mmol/L 04/15/2019 03:25 Chloride Level 101 mmol/L LOW 04/15/2019 03:25 Carbon Dioxide Level 29 mmol/L 04/15/2019 03:25 Anion Gap 6 LOW 04/15/2019 03:25 Alk Phos 140 Units/Liter HI 04/14/2019 04:59 ALT 17 Units/Liter 04/14/2019 04:59 AST 25 Units/Liter 04/14/2019 04:59 Blood Urea Nitrogen 11 mg/dL 04/15/2019 03:25 Glucose Level 95 mg/dL 04/15/2019 03:25 Albumin Level 2.6 Gram/dL LOW 04/14/2019 04:59 Bilirubin Total 0.5 mg/dL 04/14/2019 04:59 Calcium Level 9.0 mg/dL 04/15/2019 03:25 Magnesium Level 2.2 mg/dL 04/14/2019 04:59 Coagulation Results (Current Encounter/Past 24 Hours) No Coagulation Results Found (Past 24 Hours) Creatinine Clearance (Current Encounter/Past 24 Hours) Creatinine Level 0.90 mg/dL 04/15/2019 03:25 Bun/Creatinine 12.2 04/15/2019 03:25 Estimated Creatinine Clearance 106.04 mL/Min 04/15/2019 03:25 Pending Labs Ordered CBC no Diff (Hemogram) Specimen Type: Blood, AM Draw collect, 04/11/19 4:00:00 EST, Daily, Nurse Collect BMP Basic Metabolic Panel Specimen Type: Blood, AM Draw collect, 04/11/19 4:00:00 EST, Daily, Nurse Collect Time Spent on Discharge 42 mins [1] Progress Note, Acute Care; JANICE BUCHANAN DO-INT 04/14/2019 10:00 EST [2] Progress Note, Acute Care; JANICE BUCHANAN DO-INT 04/14/2019 10:00 EST [3] [facility] Consult; IRVING HERMAN APRN 04/09/2019 19:55 EST Electronically signed by [facility] Conversion Communication Instructor Cerner at 06/19/2022 4:29 PM CDT documented in this encounter Plan of Treatment Not on file documented as of this encounter Visit Diagnoses Not on filedocumented in this encounter
--- OUTSIDE RECORDS SUMMARY | 2024-08-06 19:14 | XMS_ITS | Encounter Summary ---
Author Organization [employer] Address [address] [place] [address] Care Team Providers Care Broiler Supervisor Name Role Phone Unavailable Primary Care Provider Lilia e Encounter Details Date Type Department Care Team (Late st Contact Info) Description 04/14/2019 Transcribed Document [facility] [place] [facility] [address] [place] [address] ProviderSharon MD [facility] [place], [place] [address] Social History Tobacco Use Types Packs/Day Years Used Date Smoking Tobacco: Never Assessed Sex and Gender Information Value Date Recorded Sex Assigned at Not on file Legal Sex Male 6:54 PM CDT Gender Identity Not on file Sexual Orientation Not on file documented as of this encounter Miscellaneous Notes * Cerner Conversion Note - Sharon ProviderMD - 04/14/2019 10:00 AM BOILER WELDER Patient: RAUDEL ZEPEDA Age: 54 years Sex: Male : 1965 Associated Diagnoses: None Author: JANICE BUCHANAN, DO Basic Information pt seen in icu, 04/14 sitting up in bed indicates he is feeling pretty good has a plan for sobriety denies hallucinations or tremors Review of Systems Constitutional: No fever, No chills. Respiratory: No shortness of breath, No cough. Gastrointestinal: No nausea, No vomiting. Health Status Allergies: Allergic Reactions (Selected) No [...] Breath Mag-Ox 400: 400 mg, Oral, Daily Pepcid: 20 mg, Oral, Daily Percocet 5/325 [...] (See Comment) thiamine: 100 mg, Oral, Daily Documented Medications Documented Metoprolol Tartrate 100 mg [...] before a meal, 30 Cap, 0 Refill(s), Medications (42) Active Scheduled: (13) aspirin EC 81 mg [...] 160 mg 1 Tab, Oral, Daily Continuous: (1) dexmedetomidine 400 mcg + NaCl 0.9% TITRATE 100 mL 100 mL, IntraVENous PRN: (28) acetaminophen 325 mg tab 650 [...] 5 mL, IV Piggyback, Q6H Problem list: Medical History of obstructive sleep apnea / IMO [id number] / Confirmed SVT - Supraventricular tachycardia / SNOMED CT [id number] / Confirmed, Active Problems (7) Alcohol abuse Anxiety History of obstructive sleep apnea Hypertension Hypothyroid Smoker SVT - Supraventricular tachycardia Physical Examination VS/Measurements Vitals Signs (last 24 hrs) Last Charted Minimum Maximum Temp 98.0 (APR 14 11:09) 97.8 (APR 14 00:00) 99.3 (APR 13 15:35) Apical HR 79 (APR 14 08:47) 64 (APR 13 17:49) 79 (APR 14 08:47) Mon HR 78 (APR 14 11:09) 63 (APR 13 17:00) 83 (APR 13 15:35) Resp Rate 18 (APR 14 11:09) 17 (APR 13 16:05) H 22 (APR 13 15:35) SBP 140 (APR 14 11:09) 108 (APR 14 02:00) H 176 (APR 14 07:00) DBP 88 (APR 14 11:09) 63 (APR 14 02:00) H 107 (APR 13 15:45) MAP 113 (APR 14 11:09) 80 (APR 14 02:00) 132 (APR 13 15:45) SpO2 99 (APR 14 12:00) L 83 (APR 14 09:00) 100 (APR 13 20:00) General: appears a bit older than stated age nontoxic no notable tremors, sitting up in bed, cognition intact. [...] intact. Psychiatric: Cooperative, Appropriate mood & affect. Review / Management Results review: Labs (Last four charted values) WBC 6.3 (APR 14) 6.0 (APR 13) 6.5 (APR 12) 7.4 (APR 11) HB L 12.7 (APR 14) L 11.9 (APR 13) L 12.1 (APR 12) L 11.8 (APR 11) HCT L 38.1 (APR 14) L 36.0 (APR 13) L 36.5 (APR 10) L 36.2 (APR 11) Plt 251 (APR 14) 214 (APR 13) 199 (APR 10) 218 (APR 09) Na L 134 (APR 14) L 132 (APR 13) L 132 (APR 10) L 133 (APR 11) K 4.6 (APR 14) 4.2 (B ) 4.1 (APR 10) 3.5 (APR 09) Cl L 100 (APR 14) L 100 (APR 13) L 99 (APR 10) L 97 (APR 09) CO2 31 (FEB 12) 30 (FEB 11) 31 (FEB 10) H 33 (FEB 09) BUN 8 (FEB 12) 8 (FEB 11) 7 (FEB 10) 8 (FEB 09) Cr 0.70 (FEB 12) 0.80 (FEB 11) 0.80 (FEB 10) 0.90 (FEB 09) Glu R 79 (FEB 12) 92 (FEB 11) 90 (FEB 10) 101 (FEB 09) Ca 9.2 (FEB 12) 9.1 (FEB 11) 8.9 (FEB 10) 8.5 (FEB 09) Lactic 0.8 (B 07) PT 10.7 (B 07) INR 1.0 (B 07) AST 25 (FEB 12) 13 (FEB 10) 13 (FEB 09) 19 (B 08) ALT 17 (FEB 12) 16 (FEB 10) L 14 (B 09) 19 (B 08) ALK P H 140 (FEB 12) H 149 (FEB 10) H 155 (B 09) H 170 (B 08) T Bili 0.5 (B 12) 0.6 (FEB 10) 0.7 (B 09) 0.8 (B 08) PTN 6.9 (FEB 12) 6.5 (FEB 10) L 6.2 (B 09) L 6.1 (B 08) ALB L 2.6 (FEB 12) L 2.4 (FEB 10) L 2.5 (FEB 09) L 2.4 (B 08) Lipase 124 (APR 09) Troponin <0.015 (B 08) 0.022 (APR 09) . ECHO 04/10/2019 Impression: Left ventricle measures upper [...] venous thrombosis (DVT) or superficial venous thrombosis. Reason For Exam Dyspnea REPORT CHEST ONE VIEW HISTORY: Shortness of [...] Upright two-view chest exam may be helpful. Impression and Plan Aflutter with RVR prior hx ablation; currently [...] Normal left ventricular systolic function post stress. alcohol withdrawl improving okay to move to tele, increase mobility HTN- Alcohol abuse- nearly a fifth of liquor daily mild hyponatremia improved mild anemia, stable better to tele poss dc am gaurav pt, rn time 34misn Electronically signed by [facility] Conversion Ultrasound Technician Cerner at 06/19/2022 4:41 PM CDT documented in this encounter Plan of Treatment Not on file documented as of this encounter Visit Diagnoses Not on filedocumented in this encounter
--- OUTSIDE RECORDS SUMMARY | 2024-08-06 19:14 | XMS_ITS | Encounter Summary ---
Author Organization [employer] Address [address] [place] [address] Care Team Providers Care Public Health Assistant Name Role Phone Unavailable Primary Care Provider Unavailabl e Encounter Details Date Type Department Care Team (Late st Contact Info) Description 04/10/2019 Transcribed Document [facility] Family Medicine [address] [place] [address] ProviderSharon MD [address] [place] [address] Social History Tobacco Use Types Packs/Day Years Used Date Smoking Tobacco: Never Assessed Sex and Gender Information Value Date Recorded Sex Assigned at Not on file Legal Sex Male 6:54 PM CDT Gender Identity Not on file Sexual Orientation Not on file documented as of this encounter Miscellaneous Notes * Cerner Conversion Note - Historical ProviderMD - 04/10/2019 12:32 PM IMAGING NURSE UM Authorization Entered On: 04/10/2019 12:33 EST Performed On: 04/10/2019 12:32 EST by Alonso Malik Mkt Local Delivery Truck Driver-Utilization Mgt Primary Insurance Authorization Authorization and Policy Numbers : Insurance 1 Health Plan: [employer] FED Policy Number: [id number] Authorization Number: Insurance [facility] [id number] Authorization Status-Primary : Awaiting callback Authorized Service Begin Date-Primary : 04/09/2019 EST Authorization Comments-Primary : Clinicals paper faxed. Historical Authorization Comments-Primary : No Authorization Comments Found Alonso Malik Mkt Local Delivery Truck Driver-Utilization Mgt - 04/10/2019 12:32 EST documented in this encounter Plan of Treatment Not on file documented as of this encounter Visit Diagnoses Not on filedocumented in this encounter
--- OUTSIDE RECORDS SUMMARY | 2024-08-06 19:14 | XMS_ITS | Encounter Summary ---
Author Organization [employer] Address [address] [place] [address] Care Team Providers Care Field Insurance Sales Manager Name Role Phone Unavailable Primary Care Provider Unavailabl e Encounter Details Date Type Department Care Team (Late st Contact Info) Description 04/15/2019 Transcribed Document [facility] [place] [address] [place] [address] ProviderSharon MD [address] [place] [address] Social History Tobacco Use Types Packs/Day Years Used Date Smoking Tobacco: Never Assessed Sex and Gender Information Value Date Recorded Sex Assigned at Not on file Legal Sex Male 6:54 PM CDT Gender Identity Not on file Sexual Orientation Not on file documented as of this encounter Miscellaneous Notes * Cerner Conversion Note - Historical ProviderMD - 04/15/2019 12:35 PM CADDY MASTER Behavioral Health Assessment Note Entered On: 04/15/2019 12:45 EST Performed On: 04/15/2019 12:35 EST by SHARON GUERRERO, BALL MILL OPERATOR I-TRIAGE Behavioral Health Assessment Note Reason For Behavioral Health Assessment : Pt is a 54 year old male who presented to [facility] for heart concerns. Pt denies current or history of SI, HI, delusions, or hallucinations. Pt reports being brought into the ed 7 days ago and having heart surgery since that time. Pt reports a history of alcohol use and states that he has cut down on his consumption from 1/5 a day to a pint a day. Pt reports he completed a partial program 3 years ago and learned a lot from that. Pt was recommended for partial treatment, pt declined and requested outpatient resources. Pt was provided a list of local resources. Are You Currently Suicidal Or Homicidal? : No Suicidal Ideation : No current suicidal thoughts Suicide Plan : No plan Current Admission Precipitated By Suicide Attempt : No Suicide Attempt History : No previous attempt Are You Currently Homicidal : No Do You Have a Plan to Harm Others : No plan Clear Homicidal Target : No Thought Process : No difficulties Thought Content : Appropriate Types of Hallucination(s) : None Appearance : Disheveled Mood : Anxious Affect : Appropriate General behavior , BH : Attentive, Cooperative Rate of Speech : Normal Tone of Speech : Average Orientation : Oriented x 4 Legal Guardian : No Legal Status : Voluntary Post-eval Disposition : Outpatient Mode Of Departure, General Discharge : Unknown SHARON GUERRERO, BALL MILL OPERATOR I-[employer]IAGE - 04/15/2019 12:35 EST Social History (As Of: 04/15/2019 12:45:41 EST) documented in this encounter Plan of Treatment Not on file documented as of this encounter Visit Diagnoses Not on filedocumented in this encounter
--- OUTSIDE RECORDS SUMMARY | 2024-08-06 19:14 | XMS_ITS | Encounter Summary ---
Author Organization [employer] Address [address] [place] [address] Care Team Providers Care Behavioral Analyst Name Role Phone Unavailable Primary Care Provider Unavailabl e Encounter Details Date Type Department Care Team (Late st Contact Info) Description 04/15/2019 Transcribed Document [facility] Family Medicine [address] [place] [address] ProviderSharon MD [address] [place] [address] Social History Tobacco Use Types Packs/Day Years Used Date Smoking Tobacco: Never Assessed Sex and Gender Information Value Date Recorded Sex Assigned at Not on file Legal Sex Male 6:54 PM CDT Gender Identity Not on file Sexual Orientation Not on file documented as of this encounter Miscellaneous Notes * Cerner Conversion Note - Sharon Phillips MD - 04/15/2019 2:47 PM CYLINDER BATCHER [facility] [place], [place] [id number] ZEPEDA RAUDEL :1965 Visit Time:04/09/2019 Your Visit Summary Your Care Team Admitting Physician - MARLEY BERRIOS MD Attending Physician - MARLEY BERRIOS MD Primary Care Physician - MARAÍ, NOT LISTED Your Diagnosis SVT (supraventricular tachycardia) Unspecified atrial fibrillation, Unspecified atrial fibrillation These Are Your Goals Get help to stop smoking and drinking Discharge Vitals Temperature 36.4 ??C Heart Rate (Monitored) 83 Blood Pressure 135/94 What to do next Instructions From Your Care Team If you have any fevers greater than 101.5, increased shortness of air at rest or chest pain seek medical attention. Follow-Up Appointments Follow Up with SHILO MONTES DE OCA When 05/19/2019 09:45 AM EDT Where: [address] [place] [address]- Business (1) Follow Up with BEN FINLEY When 05/17/2019 11:30 AM EDT Where: [address] [place] [address]- Business (1) Follow Up with ERASMO SCHMID (EVA)[facility] When Within 1 week Comments Please call in AM and make a 1 week hospital follow-up appointment. Where: [facility] [place] [address]- Medications What How Much When Instructions Next Dose acetaminophen-oxyCODONE (Percocet 5/ 325 oral tablet) 1 Tablet(s) Oral Three Times A Day as needed for Pain (Moderate 4-6) Printed Prescription aspirin (aspirin 81 mg oral delayed release tablet) 1 Tablet(s) Oral Every Day losartan (losartan 50 mg oral tablet) 1 Tablet(s) Oral Every Day Printed Prescription multivitamin Oral Every Day nicotine (nicotine 14 mg/ 24 hr transdermal film, extended release) 1 Patch(es) TransDermal Every Day Duration: 14 Day(s) Printed Prescription nicotine (nicotine 21 mg/ 24 hr transdermal film, extended release) 1 Patch(es) TransDermal Every Day Duration: 14 Day(s) Printed Prescription oxazepam (oxazepam 10 mg oral capsule) See instructions 1 cap q am, repeat in 8 hours, for 2 days, then take 1 cap q am for two days, then stop Printed Prescription temazepam (temazepam 15 mg oral capsule) 1 Capsule(s) Oral Once a day (at bedtime) as needed for as needed for sleep Printed Prescription doxepin 10 Milligram(s) Oral At Bedtime folic acid (folic acid 0.8 mg oral tablet) 1 Tablet(s) Oral Every Day imiquimod topical (imiquimod 5% topical cream) 1 Application(s) Topical 3 times a week apply to affected areas as directed magnesium oxide (magnesium oxide 400 mg (241.3 mg elemental magnesium) oral tablet) 1 Tablet(s) Oral Every Day metoprolol (Metoprolol Tartrate 100 mg oral tablet) 1 Tablet(s) Oral Two Times A Day sertraline (Zoloft 50 mg oral tablet) 1 Tablet(s) Oral Every Day levothyroxine (levothyroxine 75 mcg (0.075 mg) oral tablet) 1 Tablet(s) Oral Every Day omeprazole (omeprazole 20 mg oral delayed release capsule) 1 Capsule(s) Oral Every Day before a meal Take your medications faithfully. Do NOT skip medication. Do NOT stop taking medications without the direction of a physician. Carry a list of your medications with you at all times, and take this medication list with you to your first follow up visit. Report any side effects. Avoid herbal remedies unless discussed with your physician. As part of your treatment plan, your physician may have prescribed a limited course of a controlled substance. This medication may be given to help people with moderate or severe pain or for other medical conditions, but there are risks involved with treatment. Common side effects may include nausea, constipation, drowsiness, sweating, itching, dry mouth, and rash. More serious side effects may include cognitive and motor impairment, like problems with thinking, concentrating, alertness, and movement (e.g. slowed reflexes), and driving and operating heavy machinery can be dangerous. It is important for you to talk to your physician if you have these side effects or questions. These controlled substances can produce physical dependence and be habit-forming if taken for an extended period of time, which means that the body has gotten used to them and may experience withdrawal symptoms if they are abruptly stopped. Withdrawal symptoms can include runny nose, sweating, goose bumps, diarrhea, abdominal cramping, rapid heartbeat, difficulty sleeping, and nervousness. Please dispose of unused and medications per your retail pharmacy guidance. Allergies No Known Allergies Immunizations This Visit No Immunizations Found Education Materials How to Take a Pulse Your pulse is the increase in pressure inside the blood vessels that carry blood from your heart to the rest of your body (arteries). Every time your heart beats, you can feel your pulse in an artery near the surface of your skin. You can easily feel your pulse in the artery in your wrist (radial artery) and in the artery in your neck (carotid artery). Taking your pulse can tell you how fast your heart is beating and whether it has a normal rhythm. You can also tell whether your heart is beating strongly or weakly. What you need to know about pulse rates Your pulse is the same as your heart rate. Both are measured in beats per minute (bpm). A normal resting heart rate varies depending on a person's age. ??? Infants under 1 year of age: Normal heart rate of 100???160 bpm. ??? Children 1???2 years of age: Normal heart rate of 90???150 bpm. ??? Children 2???5 years of age: Normal heart rate of 80???140 bpm. ??? Children 6???12 years of age: Normal heart rate of 70???120 bpm. ??? Everyone over 12 years of age: Normal heart rate of 60???100 bpm. There can be a lot of variation in your pulse. It can be different depending on the time of day or the amount of exercise that you get. It changes with your fitness level. Many things can change the speed and regularity of your pulse. These include: ??? Exercise. ??? Fever. ??? Stress. ??? Heart problems. ??? Poor circulation. ??? Medicines. How to take your pulse To take your pulse, all you need is a digital stopwatch or a clock or watch that has a second hand. The best time to measure your resting pulse is in the morning before you start moving around. Take it as soon as you wake up or after resting for about 10 minutes. There are no firm rules about how often to check your pulse. In general, it is a good idea to check your pulse at least once a month. Measuring your pulse is a good way to check your heart health. Checking your pulse before and after exercise can tell you if you are getting the right amount of exercise. This is called finding your target heart rate. Your target heart rate depends on your age, fitness, and health. Ask your health care provider what would be a safe target heart rate for you during exercise. Radial Pulse To check the pulse in your radial artery: 1. Turn one hand palm-up and relax your arm. 2. Place the first two fingers of your other hand gently over your wrist, just below the base of your thumb. 3. Place your fingertips just inside the bone that runs along the outside of your arm. 4. Slowly increase pressure until you feel a pulsing beneath your fingers. You may need to move your fingers slightly. 5. Do not press too hard. Too much pressure may cut off blood supply. 6. Count how many pulse beats you feel in 1 minute. Or, count how many pulse beats you feel in 30 seconds and double that number. 7. Pay attention to the rhythm of the pulse. It should be steady and even. Carotid Pulse To check the pulse in your carotid artery: 1. Place two fingers just to one side of your Mono???s apple so that you feel a pulsing beneath your fingers. 2. Do not press too hard. Too much pressure may cut off blood supply and can make you dizzy. 3. Count how many pulse beats you feel in 1 minute. Or, count how many pulse beats you feel in 30 seconds and double that number. 4. Pay attention to the rhythm of the pulse. It should be steady and even. Contact a health care provider if: ??? Your pulse is too slow or too fast. ??? Your pulse is weak or hard to find. ??? You have skipped beats or extra beats. ??? Your pulse has an irregular rhythm. ??? You have an abnormal pulse along with dizziness, fatigue, or shortness of breath. This information is not intended to replace advice given to you by your health care provider. Make sure you discuss any questions you have with your health care provider. Document Released: 08/24/2003 Document Revised: 09/06/2016 Document Reviewed: 07/23/2016 [employer] Interactive Patient Education ?? 2019 [employer] How to Take Your Blood Pressure You can take your blood pressure at home with a machine. You may need to check your blood pressure at home: ??? To check if you have high blood pressure (hypertension). ??? To check your blood pressure over time. ??? To make sure your blood pressure medicine is working. Supplies needed: You will need a blood pressure machine, or monitor. You can buy one at a [facility] or online. When choosing one: ??? Choose one with an arm cuff. ??? Choose one that wraps around your upper arm. Only one finger should fit between your arm and the cuff. ??? Do not choose one that measures your blood pressure from your wrist or finger. Your doctor can suggest a monitor. How to prepare Avoid these things for 30 minutes before checking your blood pressure: ??? Drinking caffeine. ??? Drinking alcohol. ??? Eating. ??? Smoking. ??? Exercising. Five minutes before checking your blood pressure: ??? Pee. ??? Sit in a dining chair. Avoid sitting in a soft couch or armchair. ??? Be quiet. Do not talk. How to take your blood pressure Follow the instructions that came with your machine. If you have a digital blood pressure monitor, these may be the instructions: 1. Sit up straight. 2. Place your feet on the floor. Do not cross your ankles or legs. 3. Rest your left arm at the level of your heart. You may rest it on a table, desk, or chair. 4. Pull up your shirt sleeve. 5. Wrap the blood pressure cuff around the upper part of your left arm. The cuff should be 1 inch (2.5 cm) above your elbow. It is best to wrap the cuff around bare skin. 6. Fit the cuff snugly around your arm. You should be able to place only one finger between the cuff and your arm. 7. Put the cord inside the groove of your elbow. 8. Press the power button. 9. Sit quietly while the cuff fills with air and loses air. 10. Write down the numbers on the screen. 11. Wait 2???3 minutes and then repeat steps 1???10. What do the numbers mean? Two numbers make up your blood pressure. The first number is called systolic pressure. The second is called diastolic pressure. An example of a blood pressure reading is 120 over 80 (or 120/80). If you are an adult and do not have a medical condition, use this guide to find out if your blood pressure is normal: Normal ??? First number: below 120. ??? Second number: below 80. Elevated ??? First number: 120???129. ??? Second number: below 80. Hypertension stage 1 ??? First number: 130???139. ??? Second number: 80???89. Hypertension stage 2 ??? First number: 140 or above. ??? Second number: 90 or above. Your blood pressure is above normal even if only the top or bottom number is above normal. Follow these instructions at home: ??? Check your blood pressure as often as your doctor tells you to. ??? Take your monitor to your next doctor's appointment. Your doctor will: ? Make sure you are using it correctly. ? Make sure it is working right. ??? Make sure you understand what your blood pressure numbers should be. ??? Tell your doctor if your medicines are causing side effects. Contact a doctor if: ??? Your blood pressure keeps being high. Get help right away if: ??? Your first blood pressure number is higher than 180. ??? Your second blood pressure number is higher than 120. This information is not intended to replace advice given to you by your health care provider. Make sure you discuss any questions you have with your health care provider. Document Released: 01/30/2009 Document Revised: 01/15/2017 Document Reviewed: 07/26/2016 [employer] Interactive Patient Education ?? 2019 [employer]. Heart-Healthy Eating Plan Many factors influence your heart health, including eating and exercise habits. Heart (coronary) risk increases with abnormal blood fat (lipid) levels. Heart-healthy meal planning includes limiting unhealthy fats, increasing healthy fats, and making other small dietary changes. This includes maintaining a healthy body weight to help keep lipid levels within a normal range. What is my plan? Your health care provider recommends that you: ??? Get no more than % of the total calories in your daily diet from fat. ??? Limit your intake of saturated fat to less than % of your total calories each day. ??? Limit the amount of cholesterol in your diet to less than mg per day. What types of fat should I choose? Choose healthy fats more often. Choose monounsaturated and polyunsaturated fats, such as olive oil and canola oil, flaxseeds, walnuts, almonds, and seeds. ??? Eat more omega-3 fats. Good choices include salmon, mackerel, sardines, tuna, flaxseed oil, and ground flaxseeds. Aim to eat fish at least two times each week. ??? Limit saturated fats. Saturated fats are primarily found in animal products, such as meats, butter, and cream. Plant sources of saturated fats include palm oil, palm kernel oil, and coconut oil. ??? Avoid foods with partially hydrogenated oils in them. These contain trans fats. Examples of foods that contain trans fats are stick margarine, some tub margarines, cookies, crackers, and other baked goods. What general guidelines do I need to follow? Check food labels carefully to identify foods with trans fats or high amounts of saturated fat. ??? Fill one half of your plate with vegetables and green salads. Eat 4???5 servings of vegetables per day. A serving of vegetables equals 1 cup of raw leafy vegetables, ?? cup of raw or cooked cut-up vegetables, or ?? cup of vegetable juice. ??? Fill one fourth of your plate with whole grains. Look for the word whole as the first word in the ingredient list. ??? Fill one fourth of your plate with lean protein foods. ??? Eat 4???5 servings of fruit per day. A serving of fruit equals one medium whole fruit, ?? cup of dried fruit, ?? cup of fresh, frozen, or canned fruit, or ?? cup of 100% fruit juice. ??? Eat more foods that contain soluble fiber. Examples of foods that contain this type of fiber are apples, broccoli, carrots, beans, peas, and barley. Aim to get 20???30 g of fiber per day. ??? Eat more home-cooked food and less restaurant, buffet, and fast food. ??? Limit or avoid alcohol. ??? Limit foods that are high in starch and sugar. ??? Avoid fried foods. ??? Cook foods by using methods other than frying. Baking, boiling, grilling, and broiling are all great options. Other fat-reducing suggestions include: ? Removing the skin from poultry. ? Removing all visible fats from meats. ? Skimming the fat off of stews, soups, and gravies before serving them. ? Steaming vegetables in water or broth. ??? Lose weight if you are overweight. Losing just 5???10% of your initial body weight can help your overall health and prevent diseases such as diabetes and heart disease. ??? Increase your consumption of nuts, legumes, and seeds to 4???5 servings per week. One serving of dried beans or legumes equals ?? cup after being cooked, one serving of nuts equals 1?? ounces, and one serving of seeds equals ?? ounce or 1 tablespoon. ??? You may need to monitor your salt (sodium) intake, especially if you have high blood pressure. Talk with your health care provider or dietitian to get more information about reducing sodium. What foods can I eat? Grains Breads, including Greek, white, nanci, wheat, raisin, rye, oatmeal, and Citizen Of [place]. Tortillas that are neither fried nor made with lard or trans fat. Low-fat rolls, including hotdog and hamburger buns and [place] muffins. Biscuits. Muffins. Waffles. Pancakes. Light popcorn. Whole-grain cereals. Flatbread. Guerline toast. Pretzels. Breadsticks. Rusks. Low-fat snacks and crackers, including oyster, saltine, matzo, saeed, animal, and rye. Rice and pasta, including brown rice and those that are made with whole wheat. Vegetables All vegetables. Fruits All fruits, but limit coconut. Meats and Other Protein Sources Lean, well-trimmed beef, veal, pork, and bernard. Chicken and turkey without skin. All fish and shellfish. Wild duck, rabbit, pheasant, and venison. Egg whites or low-cholesterol egg substitutes. Dried beans, peas, lentils, and tofu. Seeds and most nuts. Dairy Low-fat or nonfat cheeses, including ricotta, string, and mozzarella. Skim or 1% milk that is liquid, powdered, or evaporated. Buttermilk that is made with low-fat milk. Nonfat or low-fat yogurt. Beverages Mineral water. Diet carbonated beverages. Sweets and Desserts Sherbets and fruit ices. Honey, jam, marmalade, jelly, and syrups. Meringues and gelatins. Pure sugar candy, such as hard candy, jelly beans, gumdrops, mints, marshmallows, and small amounts of dark chocolate. Ilan food cake. Eat all sweets and desserts in moderation. Fats and Oils Nonhydrogenated (trans-free) margarines. Vegetable oils, including soybean, sesame, sunflower, olive, peanut, safflower, corn, canola, and cottonseed. Salad dressings or mayonnaise that are made with a vegetable oil. Limit added fats and oils that you use for cooking, baking, salads, and as spreads. Other [place] powder. Coffee and tea. All seasonings and condiments. The items listed above may not be a complete list of recommended foods or beverages. Contact your dietitian for more options. What foods are not recommended? Grains Breads that are made with saturated or trans fats, oils, or whole milk. Croissants. Butter rolls. Cheese breads. Sweet rolls. Donuts. Buttered popcorn. [place] mein noodles. High-fat crackers, such as cheese or butter crackers. Meats and Other Protein Sources Fatty meats, such as hotdogs, short ribs, sausage, spareribs, elias, ribeye roast or steak, and mutton. High-fat deli meats, such as salami and bologna. Caviar. Domestic duck and goose. Organ meats, such as kidney, liver, sweetbreads, brains, gizzard, chitterlings, and heart. Dairy Cream, sour cream, cream cheese, and creamed cottage cheese. Whole milk cheeses, including blue (john), [place] Dayron, Brie, Omar, Gambian, Havarti, Jordanian, cheddar, Camembert, and Randall. Whole or 2% milk that is liquid, evaporated, or condensed. Whole buttermilk. Cream sauce or high-fat cheese sauce. Yogurt that is made from whole milk. Beverages Regular sodas and drinks with added sugar. Sweets and Desserts Frosting. Pudding. Cookies. Cakes other than ilan food cake. Candy that has milk chocolate or white chocolate, hydrogenated fat, butter, coconut, or unknown ingredients. Buttered syrups. Full-fat ice cream or ice cream drinks. Fats and Oils Gravy that has suet, meat fat, or shortening. [place] butter, hydrogenated oils, palm oil, coconut oil, palm kernel oil. These can often be found in baked products, candy, fried foods, nondairy creamers, and whipped toppings. Solid fats and shortenings, including elias fat, salt pork, lard, and butter. Nondairy cream substitutes, such as coffee creamers and sour cream substitutes. Salad dressings that are made of unknown oils, cheese, or sour cream. The items listed above may not be a complete list of foods and beverages to avoid. Contact your dietitian for more information. This information is not intended to replace advice given to you by your health care provider. Make sure you discuss any questions you have with your health care provider. Document Released: 11/26/2008 Document Revised: 09/06/2016 Document Reviewed: 08/11/2014 [employer] Interactive Patient Education ?? 2019 [employer]. Electrical Cardioversion Electrical cardioversion is the delivery of a jolt of electricity to restore a normal rhythm to the heart. A rhythm that is too fast or is not regular keeps the heart from pumping well. In this procedure, sticky patches or metal paddles are placed on the chest to deliver electricity to the heart from a device. This procedure may be done in an emergency if: ??? There is low or no blood pressure as a result of the heart rhythm. ??? Normal rhythm must be restored as fast as possible to protect the brain and heart from further damage. ??? It may save a life. This procedure may also be done for irregular or fast heart rhythms that are not immediately life-threatening. Tell a health care provider about: ??? Any allergies you have. ??? All medicines you are taking, including vitamins, herbs, eye drops, creams, and uxfv-jiv-xhnarsm medicines. ??? Any problems you or family members have had with anesthetic medicines. ??? Any blood disorders you have. ??? Any surgeries you have had. ??? Any medical conditions you have. ??? Whether you are or may be . What are the risks? Generally, this is a safe procedure. However, problems may occur, including: ??? Allergic reactions to medicines. ??? A blood clot that breaks free and travels to other parts of your body. ??? The possible return of an abnormal heart rhythm within hours or days after the procedure. ??? Your heart stopping (cardiac arrest ). This is rare. What happens before the procedure? Medicines ??? Your health care provider may have you start taking: ? Blood-thinning medicines (anticoagulants) so your blood does not clot as easily. ? Medicines may be given to help stabilize your heart rate and rhythm. ??? Ask your health care provider about changing or stopping your regular medicines. This is especially important if you are taking diabetes medicines or blood thinners. General instructions ??? Plan to have someone take you home from the hospital or clinic. ??? If you will be going home right after the procedure, plan to have someone with you for 24 hours. ??? Follow instructions from your health care provider about eating or drinking restrictions. What happens during the procedure? To lower your risk of infection: ? Your health care team will wash or sanitize their hands. ? Your skin will be washed with soap. ??? An IV tube will be inserted into one of your veins. ??? You will be given a medicine to help you relax (sedative). ??? Sticky patches (electrodes) or metal paddles may be placed on your chest. ??? An electrical shock will be delivered. The procedure may vary among health care providers and hospitals. What happens after the procedure? Your blood pressure, heart rate, breathing rate, and blood oxygen level will be monitored until the medicines you were given have worn off. ??? Do notdrive for 24 hours if you were given a sedative. ??? Your heart rhythm will be watched to make sure it does not change. This information is not intended to replace advice given to you by your health care provider. Make sure you discuss any questions you have with your health care provider. Document Released: 02/07/2003 Document Revised: 10/16/2016 Document Reviewed: 08/23/2016 [employer] Interactive Patient Education ?? 2017 [employer] Supraventricular Tachycardia, Adult Supraventricular tachycardia (SVT) is a kind of abnormal heartbeat. It makes your heart beat very fast and then beat at a normal speed. A normal heart beats 60???100 times a minute. This condition can make your heart beat more than 150 times a minute. Times of having a fast heartbeat (episodes) can be scary, but they are usually not dangerous. They can lead to problems if: ??? They happen often. ??? They last a long time. Symptoms of this condition include: ??? A pounding heart. ??? A feeling that your heart is skipping beats (palpitations). ??? Weakness. ??? Trouble getting enough air (shortness of breath). ??? Pain or tightness in your chest. ??? Feeling like you are going to pass out (light-headedness). ??? Feeling worried or nervous (anxiety). ??? Dizziness. ??? Sweating. ??? Feeling sick to your stomach (nausea). ??? Passing out (fainting). ??? Tiredness. Sometimes, there are no symptoms. Follow these instructions at home: Stress ??? Avoid things that make you feel stressed. ??? Find out what helps you feel less stressed. Try: ? Doing a relaxing activity, like yoga, meditation, or being out in nature. ? Listening to relaxing music. ? Doing relaxation techniques, like deep breathing. ? Taking steps to be healthy. These include getting lots of sleep, exercising, and eating a balanced diet. ? Talking with a mental health doctor. Sleep ??? Try to get at least 7 hours of sleep each night. Tobacco and nicotine ??? Do not use anything that has nicotine or tobacco, such as cigarettes and e-cigarettes. If you need help quitting, ask your doctor. Alcohol ??? If alcohol gives you a fast heartbeat, do not drink alcohol. ??? If alcohol does not seem to give you a fast heartbeat, limit your alcohol. For non women, this means no more than 1 drink a day. For men, this means no more than 2 drinks a day. One drink means one of these: ? 12 oz of beer. ? 5 oz of wine. ? 1?? oz of hard liquor. Caffeine ??? If caffeine gives you a fast heartbeat, do not eat, drink, or use anything with caffeine in it. ??? If caffeine does not seem to give you a fast heartbeat, limit how much caffeine you eat, drink, or use. Stimulant drugs ??? Do not use stimulant drugs. These are drugs like cocaine or methamphetamine. If you need help quitting, ask your doctor. General instructions ??? Stay at a healthy weight. ??? Exercise regularly. Ask your doctor to suggest some good activities for you. Try one of these options: ? 150 minutes a week of gentle exercise, like walking or yoga. ? 75 minutes a week of exercise that is very active, like running or swimming. ? A combination of gentle exercise and very active exercise. ??? Do home treatments to slow down your heartbeat as told by your doctor. ??? Take hriv-kbg-ylarjax and prescription medicines only as told by your doctor. Contact a doctor if: ??? You have a fast heartbeat more often. ??? Times of having a fast heartbeat last longer than before. ??? Your home treatments to slow down your heartbeat do not help. ??? You have new symptoms. Get help right away if: ??? You have chest pain. ??? Your symptoms get worse. ??? You have trouble breathing. ??? Your heart beats very fast for more than 20 minutes. ??? You pass out (faint). These symptoms may be an emergency. Do not wait to see if the symptoms will go away. Get medical help right away. Call your local emergency services (911 in the [place] Do not drive yourself to the hospital. This information is not intended to replace advice given to you by your health care provider. Make sure you discuss any questions you have with your health care provider. Document Released: 02/17/2006 Document Revised: 10/24/2016 Document Reviewed: 10/24/2016 [employer] Interactive Patient Education ?? 2019 [employer]. losartan (jn Morillo What is the most important information I should know about losartan? Do not use if you are , and tell your doctor right away if you become . Losartan can cause injury or to the unborn baby during your second or third trimester. If you have diabetes, do not use losartan together with any medication that contains aliskiren (a blood pressure medicine). What is losartan? Losartan is an angiotensin II receptor antagonist (sometimes called an ARB sonia). Losartan is used to treat high blood pressure (hypertension) in adults and children who are at least 6 years old. It is also used to lower the risk of stroke in certain people with heart disease. Losartan is also used to slow long-term kidney damage in people with type 2 diabetes who also have high blood pressure. Losartan may also be used for purposes not listed in this medication guide. What should I discuss with my healthcare provider before taking losartan? You should not use losartan if you are allergic to it. If you have diabetes, do not use losartan together with any medication that contains aliskiren (a blood pressure medicine). You may also need to avoid taking losartan with aliskiren if you have kidney disease. Do not use if you are , and tell your doctor right away if you become . Losartan can cause injury or to the unborn baby if you take the medicine during your second or third trimester. Tell your doctor if you have ever had: ?? kidney disease; ?? liver disease; ?? congestive heart failure; ?? an electrolyte imbalance (such as high levels of potassium in your blood); ?? if you are on a low-salt diet; or ?? if you are dehydrated. You should not breast-feed while using this medicine. Losartan is not approved for use by anyone younger than 6 years old. How should I take losartan? Follow all directions on your prescription label and read all medication guides or instruction sheets. Your doctor may occasionally change your dose. Use the medicine exactly as directed. You may take losartan with or without food. Call your doctor if you are sick with vomiting or diarrhea, or if you are sweating more than usual. You can easily become dehydrated while taking losartan. This can lead to very low blood pressure, a serious electrolyte imbalance, or kidney failure. Your blood pressure will need to be checked often and you may need other blood and urine tests. It may take 3 to 6 weeks before your blood pressure is under control. For best results, keep using the medicine as directed. Talk with your doctor if your condition does not improve after 3 weeks of treatment. If you have high blood pressure, keep using this medicine even if you feel well. High blood pressure often has no symptoms. You may need to use blood pressure medicine for the rest of your life. Store at room temperature away from moisture, heat, and light. What happens if I miss a dose? Take the medicine as soon as you can, but skip the missed dose if it is almost time for your next dose. Do not take two doses at one time. What happens if I overdose? Seek emergency medical attention or call the Poison Help line at . What should I avoid while taking losartan? Drinking alcohol can further lower your blood pressure and may increase certain side effects of losartan. Do not use potassium supplements or salt substitutes, unless your doctor has told you to. Avoid getting up too fast from a sitting or lying position, or you may feel dizzy. What are the possible side effects of losartan? Get emergency medical help if you have signs of an allergic reaction: hives; difficult breathing; swelling of your face, lips, tongue, or throat. Call your doctor at once if you have: ?? a light-headed feeling, like you might pass out; ?? pain or burning when you urinate; ?? high potassium level--nausea, weakness, tingly feeling, chest pain, irregular heartbeats, loss of movement; or ?? kidney problems--little or no urination, rapid weight gain, painful or difficult urination, swelling in your hands, feet, or ankles. Common side effects may include: ?? dizziness; ?? back pain; or ?? cold symptoms such as stuffy nose, sneezing, sore throat. This is not a complete list of side effects and others may occur. Call your doctor for medical advice about side effects. You may report side effects to FDA at 8-109-TMD-4757. What other drugs will affect losartan? Tell your doctor about all your other medicines, especially: ?? a diuretic or 'water pill'; ?? other blood pressure medications; ?? lithium; or ?? NSAIDs (nonsteroidal anti-inflammatory drugs)--aspirin, ibuprofen (Advil, Motrin), naproxen (Aleve), celecoxib, diclofenac, indomethacin, meloxicam, and others. This list is not complete. Other drugs may affect losartan, including prescription and aztt-hmx-rgnralg medicines, vitamins, and herbal products. Not all possible drug interactions are listed here. Where can I get more information? Your pharmacist can provide more information about losartan. Remember, keep this and all other medicines out of the reach of children, never share your medicines with others, and use this medication only for the indication prescribed. Every effort has been made to ensure that the information provided by [employer]. [employer]') is accurate, up-to-date, and complete, but no guarantee is made to that effect. Drug information contained herein may be time sensitive. [employer] information has been compiled for use by healthcare practitioners and consumers in the [place] and therefore [employer] does not warrant that uses outside of the [place] are appropriate, unless specifically indicated otherwise. [employer]'s drug information does not endorse drugs, diagnose patients or recommend therapy. [facility]'s drug information is an informational resource designed to assist licensed healthcare practitioners in caring for their patients and/or to serve consumers viewing this service as a supplement to, and not a substitute for, the expertise, skill, knowledge and judgment of healthcare practitioners. The absence of a warning for a given drug or drug combination in no way should be construed to indicate that the drug or drug combination is safe, effective or appropriate for any given patient. [facility] does not assume any responsibility for any aspect of healthcare administered with the aid of information [facility] provides. The information contained herein is not intended to cover all possible uses, directions, precautions, warnings, drug interactions, allergic reactions, or adverse effects. If you have questions about the drugs you are taking, check with your doctor, nurse or pharmacist. Copyright 2149-2304 [facility] [employer]. Version: 16.. Revision Date: 06/10/2018. oxazepam (ox A ze dipika) Serax What is the most important information I should know about oxazepam? Never use oxazepam in larger amounts, or for longer than prescribed. What is oxazepam? Oxazepam is a benzodiazepine (gcf-pxi-hic-AZE-eh-peen). Oxazepam affects chemicals in the brain that may be unbalanced in people with anxiety. Oxazepam is used to treat anxiety disorders or alcohol withdrawal symptoms. Oxazepam may also be used for purposes not listed in this medication guide. What should I discuss with my healthcare provider before taking oxazepam? You should not use this medicine if you are allergic to oxazepam or other benzodiazepines (such as alprazolam, diazepam, lorazepam, midazolam, Ativan, Valium, Tranxene, Versed, Xanax, and others). To make sure oxazepam is safe for you, tell your doctor if you have: ?? a history of depression, mental illness, suicidal thoughts or behavior; ?? a history of drug or alcohol addiction; ?? liver or kidney disease; or ?? if you use a narcotic (opioid) medication. Do not use oxazepam if you are . This medicine can cause defects. Your baby could also become dependent on the drug. This can cause life-threatening withdrawal symptoms in the baby after it is born. Babies born dependent on habit-forming medicine may need medical treatment for several weeks. Tell your doctor if you are or plan to become . Use effective control to prevent while you are taking oxazepam. Oxazepam can pass into breast milk and may harm a nursing baby. You should not breast-feed while you are using oxazepam. Oxazepam is not approved for use by anyone younger than 6 years old. How should I take oxazepam? Follow all directions on your prescription label. Your doctor may occasionally change your dose to make sure you get the best results. Never use oxazepam in larger amounts, or for longer than prescribed. Oxazepam may be habit-forming. Never share this medicine with another person, especially someone with a history of drug abuse or addiction. Keep the medication in a place where others cannot get to it. Misuse of habit-forming medicine can cause addiction, overdose, or . Selling or giving away this medicine is against the law. While using oxazepam, you may need frequent blood tests. Oxazepam should be used for only a short time. Do not take this medicine for longer than your doctor recommends. Do not stop using oxazepam suddenly or you could have unpleasant withdrawal symptoms, including a seizure (convulsions). Ask your doctor how to safely stop using this medicine. Call your doctor if this medicine seems to stop working as well in treating your anxiety symptoms. Store at room temperature away from moisture, heat, and light. Keep the bottle tightly closed when not in use. Keep track of the amount of medicine used from each new bottle. Oxazepam is a drug of abuse and you should be aware if anyone is using your medicine improperly or without a prescription. What happens if I miss a dose? Take the missed dose as soon as you remember. Skip the missed dose if it is almost time for your next scheduled dose. Do not take extra medicine to make up the missed dose. What happens if I overdose? Seek emergency medical attention or call the Poison Help line at . An overdose of oxazepam can be fatal, especially if you take it with alcohol. Overdose symptoms may include extreme drowsiness, confusion, weakness, muscle weakness, loss of balance or coordination, fainting, or coma. What should I avoid while taking oxazepam? Avoid drinking alcohol. Dangerous side effects could occur. This medicine may impair your thinking or reactions. Be careful if you drive or do anything that requires you to be alert. The sedative effects of oxazepam may last longer in older adults. Accidental falls are common in elderly patients who take benzodiazepines. Use caution to avoid falling or accidental injury while you are taking oxazepam. What are the possible side effects of oxazepam? Get emergency medical help if you have signs of an allergic reaction: hives; difficult breathing; swelling of your face, lips, tongue, or throat. Call your doctor at once if you have: ?? a light-headed feeling, like you might pass out; ?? tremors, weakness, slurred speech; ?? sudden restless feeling or excitement; ?? confusion, anger, aggression; ?? hallucinations, feelings of extreme happiness; ?? problems with balance or walking; ?? memory problems; ?? jaundice (yellowing of the skin or eyes); or ?? sudden weakness or ill feeling, fever, chills, sore throat. Common side effects may include: ?? dizziness, spinning sensation; ?? feeling restless or excited; ?? drowsiness; ?? headache; or ?? blurred vision. This is not a complete list of side effects and others may occur. Call your doctor for medical advice about side effects. You may report side effects to FDA at 4-364-TPJ-0424. What other drugs will affect oxazepam? Taking oxazepam with other drugs that make you sleepy or slow your breathing can cause dangerous side effects or . Ask your doctor before taking a sleeping pill, narcotic pain medicine, prescription cough medicine, a muscle relaxer, or medicine for anxiety, depression, or seizures. Other drugs may interact with oxazepam, including prescription and swaw-kkm-uyzxfmw medicines, vitamins, and herbal products. Tell each of your health care providers about all medicines you use now and any medicine you start or stop using. Where can I get more information? Your pharmacist can provide more information about oxazepam. Remember, keep this and all other medicines out of the reach of children, never share your medicines with others, and use this medication only for the indication prescribed. Every effort has been made to ensure that the information provided by [employer]') is accurate, up-to-date, and complete, but no guarantee is made to that effect. Drug information contained herein may be time sensitive. [employer] information has been compiled for use by healthcare practitioners and consumers in the [place] and therefore [employer] does not warrant that uses outside of the [place] are appropriate, unless specifically indicated otherwise. [employer] drug information does not endorse drugs, diagnose patients or recommend therapy. [employer] drug information is an informational resource designed to assist licensed healthcare practitioners in caring for their patients and/or to serve consumers viewing this service as a supplement to, and not a substitute for, the expertise, skill, knowledge and judgment of healthcare practitioners. The absence of a warning for a given drug or drug combination in no way should be construed to indicate that the drug or drug combination is safe, effective or appropriate for any given patient. [employer] does not assume any responsibility for any aspect of healthcare administered with the aid of information [employer] provides. The information contained herein is not intended to cover all possible uses, directions, precautions, warnings, drug interactions, allergic reactions, or adverse effects. If you have questions about the drugs you are taking, check with your doctor, nurse or pharmacist. Copyright 6661-8491 [employer]. Version: 7.03. Revision Date: 11/29/2015. nicotine (transdermal) (PREET [place] teen) Moise Abdalla C-Q, Nicotine System Kit What is the most important information I should know about nicotine transdermal? Follow all directions on your medicine label and package. Tell each of your healthcare providers about all your medical conditions, allergies, and all medicines you use. What is nicotine? Nicotine is the primary ingredient in tobacco products. Nicotine transdermal (skin patch) is a medical product used to help you stop smoking and help reduce nicotine withdrawal symptoms as you quit smoking. Nicotine may also be used for purposes not listed in this medication guide. What should I discuss with my healthcare provider before using nicotine transdermal? Nicotine transdermal is not approved for use by anyone younger than 18 years old. Ask a doctor or pharmacist if this medicine is safe to use if you have ever had: ?? heart disease, irregular heartbeats; ?? a heart attack or stroke; ?? untreated or uncontrolled high blood pressure; ?? blood circulation problems; ?? pheochromocytoma (tumor of the adrenal gland); ?? diabetes; ?? a thyroid disorder; ?? a stomach ulcer; ?? liver disease; or ?? if your skin is sensitive to adhesive tape or bandages. Do not use nicotine transdermal without medical advice if you are . Use effective control, and tell your doctor if you become during treatment. Smoking cigarettes during can cause low weight, miscarriage, or stillbirth. Using a nicotine replacement product during or while breast-feeding may be safer than smoking. However, you should try to stop smoking without using a nicotine replacement product if you are or breast-feeding. Talk with your doctor about the best way for you to stop smoking. It may not be safe to breastfeed while using this medicine. Ask your doctor about any risk. The nicotine transdermal patch may burn your skin if you wear the patch during an MRI (magnetic resonance imaging). Remove the patch before undergoing such a test. How should I use nicotine transdermal? Nicotine transdermal is only part of a complete program of treatment that may also include counseling, group support, and behavior changes. Your success will depend on your participation in all aspects of your smoking cessation program. Use exactly as directed on the label, or as prescribed by your doctor. Start using the transdermal patch on the same day you stop (quit) smoking or using tobacco products. Your patch strength and number of weeks of treatment will depend on how many cigarettes you smoked daily before quitting. Read and carefully follow any Instructions for Use provided with your medicine. Ask your doctor or pharmacist if you do not understand these instructions. Wash your hands after applying or removing a nicotine skin patch. Apply the patch to clean, dry, and hairless skin on your chest or the outer part of your upper arm. Press the patch firmly into place for about 10 seconds to make sure it sticks. You may leave the patch on while bathing, showering, or swimming. Do not wear more than one nicotine patch at a time. Never cut a skin patch. Do not wear a nicotine patch at night if you have vivid dreams or trouble sleeping. If a patch falls off, try sticking it back into place. If it does not stick well, put on a new patch. You may wear a Habitrol patch for 24 hours. You may wear a Nicoderm CQ patch for 16 or 24 hours (wear for 24 hours if you crave cigarettes when you wake up in the morning). Remove the skin patch after 24 hours and replace it with a new one. Choose a different place on your body to wear the patch each time you put on a new one. Do not use the same skin area twice within 7 days. After removing a skin patch fold it in half, sticky side in, and put it back into its pouch. Do not use nicotine patches for longer than 8 weeks without the advice of your doctor. Store at room temperature away from moisture and heat. Keep each patch in its foil pouch until you are ready to use it. Save the pouch so you can use it to throw away any used patches. Keep both used and unused nicotine patches out of the reach of children or pets. The amount of nicotine in a used or unused skin patch can be fatal to a child who accidentally sucks or chews on the patch. Seek emergency medical attention if this happens. What happens if I miss a dose? Apply a skin patch as soon as you remember. Do not wear a patch for longer than 24 hours. Do not use extra patches to make up the missed dose. What happens if I overdose? Seek emergency medical attention or call the Poison Help line at . Overdose symptoms may include severe dizziness, nausea, vomiting, diarrhea, weakness, and fast heart rate. What should I avoid while using nicotine transdermal? Avoid using lotions, oils, or moisturizing soaps on the skin where you plan to wear a nicotine transdermal patch, or it may not stick well. What are the possible side effects of nicotine transdermal? Get emergency medical help if you have signs of an allergic reaction: hives; difficult breathing; swelling of your face, lips, tongue, or throat. Stop using nicotine transdermal and call your doctor at once if you have: ?? fast or pounding heartbeats, fluttering in your chest; ?? extreme weakness or dizziness; ?? severe nausea and vomiting; or ?? redness, swelling, or skin rash where a nicotine patch was worn (especially if these symptoms do not clear up within 4 days after the patch was removed). Common side effects may include: ?? dizziness; ?? sleep problems (insomnia), strange dreams; ?? dry mouth, upset stomach; ?? joint or muscle pain; ?? headache; or ?? mild skin irritation where the patch is worn. This is not a complete list of side effects and others may occur. Call your doctor for medical advice about side effects. You may report side effects to FDA at 8-939-PML-6572. What other drugs will affect nicotine? Other drugs may affect nicotine transdermal, including prescription and oouz-jah-nfahsre medicines, vitamins, and herbal products. Tell your doctor about all your current medicines and any medicine you start or stop using. Where can I get more information? Your pharmacist can provide more information about nicotine. Remember, keep this and all other medicines out of the reach of children, never share your medicines with others, and use this medication only for the indication prescribed. Every effort has been made to ensure that the information provided by [employer]. ('[employer]') is accurate, up-to-date, and complete, but no guarantee is made to that effect. Drug information contained herein may be time sensitive. [employer] information has been compiled for use by healthcare practitioners and consumers in the [place] and therefore [employer] does not warrant that uses outside of the [place] are appropriate, unless specifically indicated otherwise. [employer] drug information does not endorse drugs, diagnose patients or recommend therapy. [employer] drug information is an informational resource designed to assist licensed healthcare practitioners in caring for their patients and/or to serve consumers viewing this service as a supplement to, and not a substitute for, the expertise, skill, knowledge and judgment of healthcare practitioners. The absence of a warning for a given drug or drug combination in no way should be construed to indicate that the drug or drug combination is safe, effective or appropriate for any given patient. [employer] does not assume any responsibility for any aspect of healthcare administered with the aid of information [employer] provides. The information contained herein is not intended to cover all possible uses, directions, precautions, warnings, drug interactions, allergic reactions, or adverse effects. If you have questions about the drugs you are taking, check with your doctor, nurse or pharmacist. Copyright 9026-7210 [employer]. Version: 3.01. Revision Date: 10/08/2018. acetaminophen and oxycodone (a SEET a MIN oh fen and OX i KOE done) Endocet 10/325, Endocet 2.5/325, Endocet 5/325, Endocet 7.5/325, Nalocet, Percocet 10/325, Percocet 2.5/325, Percocet 5/325, Percocet 7.5/325, Primalev, Primlev, Roxicet, Xartemis XR What is the most important information I should know about acetaminophen and oxycodone? MISUSE OF OPIOID MEDICINE CAN CAUSE ADDICTION, OVERDOSE, OR . Keep the medication in a place where others cannot get to it. An overdose of acetaminophen can damage your liver or cause . Call your doctor at once if you have pain in your upper stomach, loss of appetite, dark urine, or jaundice (yellowing of your skin or eyes). Taking opioid medicine during may cause life-threatening withdrawal symptoms in the . Fatal side effects can occur if you use opioid medicine with alcohol, or with other drugs that cause drowsiness or slow your breathing. Stop taking this medicine and call your doctor right away if you have skin redness or a rash that spreads and causes blistering and peeling. What is acetaminophen and oxycodone? Oxycodone is an opioid pain medication, sometimes called a narcotic. Acetaminophen is a less potent pain reliever that increases the effects of oxycodone. Acetaminophen and oxycodone is a combination medicine used to relieve moderate to severe pain. Acetaminophen and oxycodone may also be used for purposes not listed in this medication guide. What should I discuss with my healthcare provider before taking acetaminophen and oxycodone? You should not use this medicine if you are allergic to acetaminophen or oxycodone, or if you have: ?? severe asthma or breathing problems; or ?? a blockage in your stomach or intestines. Tell your doctor if you have ever had: ?? liver disease; ?? a drug or alcohol addiction; ?? kidney disease; ?? a head injury or seizures; ?? urination problems; or ?? problems with your thyroid, pancreas, or gallbladder. If you use opioid medicine while you are , your baby could become dependent on the drug. This can cause life-threatening withdrawal symptoms in the baby after it is born. Babies born dependent on opioids may need medical treatment for several weeks. Do not breast-feed. This medicine can pass into breast milk and cause drowsiness, breathing problems, or in a nursing baby. How should I take acetaminophen and oxycodone? Follow all directions on your prescription label. Never take this medicine in larger amounts, or for longer than prescribed. An overdose can damage your liver or cause . Tell your doctor if the medicine seems to stop working as well in relieving your pain. Never share this medicine with another person, especially someone with a history of drug abuse or addiction. MISUSE CAN CAUSE ADDICTION, OVERDOSE, OR . Keep the medicine in a place where others cannot get to it. Selling or giving away acetaminophen and oxycodone is against the law. Measure liquid medicine carefully. Use the dosing syringe provided, or use a medicine dose-measuring device (not a kitchen spoon). If you need surgery or medical tests, tell the doctor ahead of time that you are using this medicine. You should not stop using this medicine suddenly. Follow your doctor's instructions about tapering your dose. Store at room temperature away from moisture and heat. Keep track of your medicine. You should be aware if anyone is using it improperly or without a prescription. Do not keep leftover opioid medication. Just one dose can cause in someone using this medicine accidentally or improperly. Ask your pharmacist where to locate a drug take-back disposal program. If there is no take-back program, flush the unused medicine down the toilet. What happens if I miss a dose? Since this medicine is used for pain, you are not likely to miss a dose. Skip any missed dose if it is almost time for your next dose. Do not use two doses at one time. What happens if I overdose? Seek emergency medical attention or call the Poison Help line at . An overdose of acetaminophen and oxycodone can be fatal. The first signs of an acetaminophen overdose include loss of appetite, nausea, vomiting, stomach pain, sweating, and confusion or weakness. Later symptoms may include pain in your upper stomach, dark urine, and yellowing of your skin or the whites of your eyes. Overdose can also cause severe muscle weakness, pinpoint pupils, very slow breathing, extreme drowsiness, or coma. What should I avoid while taking acetaminophen and oxycodone? Avoid driving or operating machinery until you know how this medicine will affect you. Dizziness or drowsiness can cause falls, accidents, or severe injuries. Do not drink alcohol. Dangerous side effects or could occur. Ask a doctor or pharmacist before using any other medicine that may contain acetaminophen (sometimes abbreviated as APAP). Taking certain medications together can lead to a fatal overdose. What are the possible side effects of acetaminophen and oxycodone? Get emergency medical help if you have signs of an allergic reaction: hives; difficulty breathing; swelling of your face, lips, tongue, or throat. Opioid medicine can slow or stop your breathing, and may occur. A person caring for you should seek emergency medical attention if you have slow breathing with long pauses, blue colored lips, or if you are hard to wake up. In rare cases, acetaminophen may cause a severe skin reaction that can be fatal. This could occur even if you have taken acetaminophen in the past and had no reaction. Stop taking this medicine and call your doctor right away if you have skin redness or a rash that spreads and causes blistering and peeling. Call your doctor at once if you have: ?? noisy breathing, sighing, shallow breathing; ?? a light-headed feeling, like you might pass out; ?? weakness, tiredness, fever, unusual bruising or bleeding; ?? confusion, unusual thoughts or behavior; ?? problems with urination; ?? liver problems--nausea, upper stomach pain, tiredness, loss of appetite, dark urine, james-colored stools, jaundice (yellowing of the skin or eyes); or ?? low cortisol levels-- nausea, vomiting, loss of appetite, dizziness, worsening tiredness or weakness. Seek medical attention right away if you have symptoms of serotonin syndrome, such as: agitation, hallucinations, fever, sweating, shivering, fast heart rate, muscle stiffness, twitching, loss of coordination, nausea, vomiting, or diarrhea. Serious side effects may be more likely in older adults and those who are overweight, malnourished, or debilitated. Long-term use of opioid medication may affect fertility (ability to have children) in men or women. It is not known whether opioid effects on fertility are permanent. Common side effects include: ?? dizziness, drowsiness, feeling tired; ?? feelings of extreme happiness or sadness; ?? nausea, vomiting, stomach pain; ?? constipation; or ?? headache. This is not a complete list of side effects and others may occur. Call your doctor for medical advice about side effects. You may report side effects to FDA at 4-534-CHX-3987. What other drugs will affect acetaminophen and oxycodone? You may have breathing problems or withdrawal symptoms if you start or stop taking certain other medicines. Tell your doctor if you also use an antibiotic, antifungal medication, heart or blood pressure medication, seizure medication, or medicine to treat HIV or hepatitis C. Opioid medication can interact with many other drugs and cause dangerous side effects or . Be sure your doctor knows if you also use: ?? cold or allergy medicines, bronchodilator asthma/COPD medication, or a diuretic ('water pill'); ?? medicines for motion sickness, irritable bowel syndrome, or overactive bladder; ?? other narcotic medications--opioid pain medicine or prescription cough medicine; ?? a sedative like Valium--diazepam, alprazolam, lorazepam, Xanax, Klonopin, Versed, and others; ?? drugs that make you sleepy or slow your breathing--a sleeping pill, muscle relaxer, medicine to treat mood disorders or mental illness; ?? drugs that affect serotonin levels in your body--a stimulant, or medicine for depression, Parkinson's disease, migraine headaches, serious infections, or nausea and vomiting. This list is not complete. Other drugs may affect acetaminophen and oxycodone, including prescription and lryc-pym-suhneza medicines, vitamins, and herbal products. Not all possible interactions are listed here. Where can I get more information? Your doctor or pharmacist can provide more information about acetaminophen and oxycodone. Remember, keep this and all other medicines out of the reach of children, never share your medicines with others, and use this medication only for the indication prescribed. documented in this encounter Plan of Treatment Not on file documented as of this encounter Visit Diagnoses Not on filedocumented in this encounter
--- OUTSIDE RECORDS SUMMARY | 2024-08-06 19:14 | XMS_ITS | Encounter Summary ---
Author Organization [employer] Address [address] [place] [address] Care Team Providers Care Dentofacial Orthopedics Dentist Name Role Phone Unavailable Primary Care Provider Unavailabl e Encounter Details Date Type Department Care Team (Late st Contact Info) Description 04/13/2019 Transcribed Document [facility] [place] [address] [place] [address] ProviderSharon MD [address] [place] [address] Social History Tobacco Use Types Packs/Day Years Used Date Smoking Tobacco: Never Assessed Sex and Gender Information Value Date Recorded Sex Assigned at Not on file Legal Sex Male 6:54 PM CDT Gender Identity Not on file Sexual Orientation Not on file documented as of this encounter Miscellaneous Notes * Cerner Conversion Note - Historical ProviderMD - 04/13/2019 4:[address] 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 Height and Weight, Routine Entered On: 04/13/2019 4:15 EST Performed On: 04/13/2019 4:14 EST by MORRO GILLIAM RN Height and Weight, Routine Routine Weight Source : Bed scale Routine Weight Entry Format : Metric Routine Weight, Kilograms : 108.3 kg(Converted to: 238 lb 12 oz) Routine Weight Calculation : 108.3 kg Height Source : Stated Height Entry Format : [place] Height, Feet : 6 ft Height, Inches : 1 Inch Clinical Height : 185.42 cm Body Surface Area (BSA), Routine : 2.32 m2 Body Mass Index (BMI), Routine : 31.5 kg/m2 MORRO GILLIAM RN - 04/13/2019 4:14 EST documented in this encounter Plan of Treatment Not on file documented as of this encounter Visit Diagnoses Not on filedocumented in this encounter
--- OUTSIDE RECORDS SUMMARY | 2024-08-06 19:14 | XMS_ITS | Encounter Summary ---
Author Organization [employer] Address [address] [place] [address] Care Team Providers Care Rehabilitation Assistant Name Role Phone Unavailable Primary Care Provider Unavailabl e Encounter Details Date Type Department Care Team (Late st Contact Info) Description 04/10/2019 Transcribed Document [facility] [place] [address] [place] [address] [facility] [place] [place] [address] Social History Tobacco Use Types Packs/Day Years Used Date Smoking Tobacco: Never Assessed Sex and Gender Information Value Date Recorded Sex Assigned at Not on file Legal Sex Male 6:54 PM CDT Gender Identity Not on file Sexual Orientation Not on file documented as of this encounter Miscellaneous Notes * Cerner Conversion Note - Historical ProviderMD - 04/10/2019 2:07 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 Vital Signs T: 36.7 ??C TMIN: 36.6 ??C TMAX: 36.7 ??C HR: 87 RR: 29 BP: 160/92 SpO2: 96% HT: 185.42 cm WT: 111.9 kg BMI: 32.5 Oxygen Settings (Last) Oxygen Therapy Mode: Nasal cannula (04/10/19 12:00:00) Oxygen Flow Rate: 2 Liter/Min (04/10/19 12:00:00) Intake & Output Totals Last 24 Hours (7a-7a) Input Total: 641.9597 mL Output Total: 1700 mL Balance: -1058.0403 mL Physical Exam General: [Alert and oriented, well nourished, no acute distress]. obese Neurologic: [Awake, alert, and oriented X3, CN II-XII intact]. Eye: [PERRL, EOMI, normal conjuctiva]. HENT: [Normocephalic, clear tympanic membranes, normal hearing, moist oral mucosa, no scleral icterus, no sinus tenderness]. Neck: [Supple, non-tender, no carotid bruits, no JVD, no lymphadenopathy]. Lungs: [Clear to auscultation and percussion, non-labored respiration]. Heart: [tacchycardia, regular rhythm, no murmur, gallop or edema]. Abdomen: [Soft, non-tender, non-distended, normal bowel sounds, no masses]. Musculoskeletal: [Normal range of motion and strength, no tenderness or swelling]. Skin: [Skin is warm, dry and pink, no rashes or lesions]. Psychiatric: [Cooperative, appropriate mood and affect]. Assessment/Plan 1. SVT, now in persistent A fib, continue amiodarone drip, cardiology has started the patient on heparin drip, they want to obtain records from , ECHO pending, heart rate is currently stable, cardiology is planning for possible ablation next week 2.alcohol withdrawal, continue fluids, Precedex, will add serax 15 mg by mouth 3 times a day, 3.elevated troponins, repeat troponin within normal limits, likely related to #1, cardiology following 4.anxiety disorder, Precedex and serax VTE Prophylaxis - Medical Sequential Compression Device Start: 04/09/19 19:14:00 EST, Bilateral, Length: Knee High, While patient is in bed, Continuous Order (SALVATORE HARP) Medications amiodarone injection 450 mg + Dextrose 5% in Water intravenous solution 250 mL Ativan, 1 mg= 1 Tab, Oral, Q30Min, PRN Ativan, 1 mg= 0.5 mL, IV Push, Q30Min, PRN Ativan, 2 mg= 2 Tab, Oral, Q30Min, PRN Ativan, 2 mg= 1 mL, IV Push, Q30Min, PRN Ativan, 3 mg= 3 Tab, Oral, Q30Min, PRN Ativan, 3 mg= 1.5 mL, IV Push, Q30Min, PRN Ativan, 4 mg= 4 Tab, Oral, Q30Min, PRN Ativan, 4 mg= 2 mL, IV Push, Q30Min, PRN calcium gluconate calcium gluconate + Sodium Chloride 0.9% intravenous solution 100 mL calcium gluconate + Sodium Chloride 0.9% intravenous solution 100 mL cloNIDine, 0.1 mg= 1 Tab, Oral, Q4H, PRN dexmedetomidine injection 400 mcg + NaCl 0.9% for drip 100 mL DuoNeb 0.5 mg-2.5 mg/3 mL inhalation solution, 3 mL, Nebulized Inhalation , Q6H, PRN folic acid, 1 mg= 1 Tab, Oral, Daily haloperidol, 2 mg= 0.4 mL, IntraMuscular, Q4H, PRN heparin injection 25,000 Units + NaCl 0.45% Premix Diluent 250 mL hydrALAZINE, 10 mg= 0.5 mL, IV Push, Q6H, PRN influenza virus vaccine, inactivated, 0.5 mL, IntraMuscular, [id number] labetalol, 20 mg= 4 mL, IV Push, Q1H, PRN levothyroxine, 75 mcg= 1 Tab, Oral, Daily Lopressor, 25 mg= 1 Tab, Oral, Q6H, PRN Mag-Ox 400, 400 mg= 1 Tab, Oral, Daily magnesium sulfate, 2 Gram= 50 mL, IV Piggyback, Daily, PRN magnesium sulfate, 2 Gram= 50 mL, IV Piggyback, Q2H, PRN morphine, 2 mg= 1 mL, IV Push, Q2H, PRN multivitamin, 1 Tab, Oral, Daily nicotine 21 mg/24 hr transdermal film, extended release, 1 Patch, TransDermal, Daily Normal Saline 1,000 mL, 1000 mL, IntraVENous Pepcid, 20 mg= 1 Tab, Oral, Daily Phenergan, 6.25 mg= 0.25 mL, IntraVENous, Q6H, PRN potassium chloride 10 mEq oral tablet, extended release, 40 mEq= 4 Tab, Oral, Daily potassium chloride 10 mEq/50 mL intravenous solution, 10 mEq= 50 mL, IV Piggyback, Q1H, PRN potassium chloride 20 mEq oral tablet, extended release, 20 mEq= 1 Tab, Oral, Q2H, PRN potassium chloride 20 mEq oral tablet, extended release, 60 mEq= 3 Tab, Oral, Q2H, PRN Serax, 15 mg= 1 Cap, Oral, TID sodium phosphate sodium phosphate thiamine, 100 mg= 1 Tab, Oral, Daily Tylenol, 650 mg= 2 Tab, Oral, Q4H, PRN Zofran, 4 mg= 2 mL, IV Push, Q4H, PRN Zoloft, 50 mg= 1 Tab, Oral, Daily Lab Results Test Name Test Result Date/Time Sodium Level 133 mmol/L (Low) 04/10/2019 04:12 EST Sodium Level 140 mmol/L 04/09/2019 19:41 EST Potassium Level 3.1 mmol/L (Low) 04/10/2019 04:12 EST Potassium Level 3.6 mmol/L 04/09/2019 19:41 EST Chloride Level 95 mmol/L (Low) 04/10/2019 04:12 EST Chloride Level 100 mmol/L (Low) 04/09/2019 19:41 EST Carbon Dioxide Level 33 mmol/L (High) 04/10/2019 04:12 EST Carbon Dioxide Level 34 mmol/L (High) 04/09/2019 19:41 EST Anion Gap 8 (Low) 04/10/2019 04:12 EST Anion Gap 10 04/09/2019 19:41 EST Glucose Level 214 mg/dL (High) 04/10/2019 04:12 EST Glucose Level 85 mg/dL 04/09/2019 19:41 EST Blood Urea Nitrogen 8 mg/dL 04/10/2019 04:12 EST Blood Urea Nitrogen 9 mg/dL 04/09/2019 19:41 EST Creatinine Level 1.00 mg/dL 04/10/2019 04:12 EST Creatinine Level 1.00 mg/dL 04/09/2019 19:41 EST eGFR >60 mL/min/1.73m2 04/10/2019 04:12 EST eGFR >60 mL/min/1.73m2 04/09/2019 19:41 EST eGFR NonAfrican >60 mL/min/1.73m2 04/10/2019 04:12 EST eGFR NonAfrican >60 mL/min/1.73m2 04/09/2019 19:41 EST Bun/Creatinine 8.0 04/10/2019 04:12 EST Bun/Creatinine 9.0 04/09/2019 19:41 EST Calcium Level 8.0 mg/dL (Low) 04/10/2019 04:12 EST Calcium Level 8.8 mg/dL 04/09/2019 19:41 EST Protein Total 6.1 Gram/dL (Low) 04/10/2019 04:12 EST Protein Total 6.0 Gram/dL (Low) 04/09/2019 19:41 EST Albumin Level 2.4 Gram/dL (Low) 04/10/2019 04:12 EST Albumin Level 2.7 Gram/dL (Low) 04/09/2019 19:41 EST Globulin 3.7 Gram/dL 04/10/2019 04:12 EST Globulin 3.3 Gram/dL 04/09/2019 19:41 EST A/G Ratio 0.6 (Low) 04/10/2019 04:12 EST A/G Ratio 0.8 (Low) 04/09/2019 19:41 EST Bilirubin Total 0.8 mg/dL 04/10/2019 04:12 EST Bilirubin Total 0.6 mg/dL 04/09/2019 19:41 EST Alk Phos 170 Units/Liter (High) 04/10/2019 04:12 EST Alk Phos 178 Units/Liter (High) 04/09/2019 19:41 EST AST 19 Units/Liter 04/10/2019 04:12 EST AST 25 Units/Liter 04/09/2019 19:41 EST ALT 19 Units/Liter 04/10/2019 04:12 EST ALT 20 Units/Liter 04/09/2019 19:41 EST Magnesium Level 1.7 mg/dL 04/10/2019 04:12 EST Hgb A1C 5.9 % 04/09/2019 19:41 EST Lipase Level 124 Units/Liter 04/09/2019 19:41 EST Lactic Acid Level 0.8 mmol/L 04/09/2019 19:41 EST eAVG Glucose 123 mg/dL 04/09/2019 19:41 EST Troponin I Ultra <0.015 ng/mL 04/10/2019 04:12 EST Troponin I Ultra 0.022 ng/mL 04/09/2019 19:41 EST CK MB <1.00 ng/mL 04/10/2019 04:12 EST ProBNP 5275 pg/mL (High) 04/09/2019 19:41 EST WBC 6.0 K/uL 04/10/2019 04:12 EST WBC 6.7 K/uL 04/09/2019 19:41 EST RBC 3.71 Million/uL (Low) 04/10/2019 04:12 EST RBC 3.73 Million/uL (Low) 04/09/2019 19:41 EST Hgb 12.7 g/dL (Low) 04/10/2019 04:12 EST Hgb 12.7 g/dL (Low) 04/09/2019 19:41 EST Hct 37.9 % (Low) 04/10/2019 04:12 EST Hct 38.0 % (Low) 04/09/2019 19:41 EST MCV 102.2 fL (High) 04/10/2019 04:12 EST MCV 101.9 fL (High) 04/09/2019 19:41 EST MCH 34.2 pg (High) 04/10/2019 04:12 EST MCH 34.0 pg (High) 04/09/2019 19:41 EST MCHC 33.5 Gram/dL 04/10/2019 04:12 EST MCHC 33.4 Gram/dL 04/09/2019 19:41 EST Platelet Count 251 K/uL 04/10/2019 04:12 EST Platelet Count 250 K/uL 04/09/2019 19:41 EST MPV 10.9 fL 04/10/2019 04:12 EST MPV 10.4 fL 04/09/2019 19:41 EST RDW 14.3 % 04/10/2019 04:12 EST RDW 14.1 % 04/09/2019 19:41 EST Slide Review No 04/10/2019 04:12 EST Slide Review No 04/09/2019 19:41 EST PT 10.7 Second(s) 04/09/2019 19:41 EST INR 1.0 04/09/2019 19:41 EST PTT Heparin 61.1 Second(s) 04/10/2019 09:44 EST PTT Heparin 47.1 Second(s) (Low) 04/10/2019 04:12 EST PTT Heparin 34.6 Second(s) (Low) 04/09/2019 19:41 EST Urine Type U CleanCatch 04/09/2019 21:55 EST Urine Color YELLOW2 04/09/2019 21:55 EST Urine Appearance CLEAR2 04/09/2019 21:55 EST Urine Specific [place] 1.014 04/09/2019 21:55 EST Urine pH Dipstick 7.0 04/09/2019 21:55 EST Urine Leukocyte Esterase NEGATIVE2 04/09/2019 21:55 EST Urine Nitrite NEGATIVE2 04/09/2019 21:55 EST Urine Protein Dipstick NEGATIVE2 04/09/2019 21:55 EST Urine Glucose Dipstick NEGATIVE2 04/09/2019 21:55 EST Urine Ketones Dipstick NEGATIVE2 04/09/2019 21:55 EST Urine Urobilinogen Dipstick 1.0 (Abnormal) 04/09/2019 21:55 EST Urine Bilirubin Dipstick NEGATIVE2 04/09/2019 21:55 EST Urine Blood Dipstick NEGATIVE2 04/09/2019 21:55 EST Cholesterol Tot 116 mg/dL 04/10/2019 04:12 EST Triglyceride 69 mg/dL 04/10/2019 04:12 EST Cholesterol HDL 46.0 mg/dL 04/10/2019 04:12 EST Cholesterol LDL Calculation 56.2 mg/dL 04/10/2019 04:12 EST Cholesterol/HDL Ratio 2.5 04/10/2019 04:12 EST LDL/HDL Ratio 1.2 04/10/2019 04:12 EST Cholesterol VLDL Calculation 13.8 mg/dL 04/10/2019 04:12 EST Procalcitonin <0.25 ng/mL 04/09/2019 19:41 EST TSH 3.700 mcInt Units/mL 04/10/2019 04:12 EST TSH 4.060 mcInt Units/mL (High) 04/09/2019 19:41 EST FT4 1.13 ng/dL 04/09/2019 19:41 EST UDS pH 7.0 04/09/2019 21:55 EST UDS Amp NEG3 04/09/2019 21:55 EST UDS Meghan NEG3 04/09/2019 21:55 EST UDS Benzo POS2 (Abnormal) 04/09/2019 21:55 EST UDS Guillermo NEG3 04/09/2019 21:55 EST UDS Opi NEG3 04/09/2019 21:55 EST UDS PCP NEG3 04/09/2019 21:55 EST UDS TCA NEG3 04/09/2019 21:55 EST UDS THC NEG3 04/09/2019 21:55 EST documented in this encounter Plan of Treatment Not on file documented as of this encounter Visit Diagnoses Not on filedocumented in this encounter
--- OUTSIDE RECORDS SUMMARY | 2024-08-06 19:14 | XMS_ITS | Encounter Summary ---
Author Organization [employer] Address [address] [place] [address] Care Team Providers Care Carver Hand Name Role Phone Unavailable Primary Care Provider Unavailabl e Encounter Details Date Type Department Care Team (Late st Contact Info) Description 04/14/2019 Transcribed Document [facility] [place] [address] [place] [address] ProviderSharon MD [address] [place] [address] Social History Tobacco Use Types Packs/Day Years Used Date Smoking Tobacco: Never Assessed Sex and Gender Information Value Date Recorded Sex Assigned at Not on file Legal Sex Male 6:54 PM CDT Gender Identity Not on file Sexual Orientation Not on file documented as of this encounter Miscellaneous Notes * Cerner Conversion Note - Historical ProviderMD - 04/14/2019 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 Height 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 Weight, Routine Entered On: 04/14/2019 6:14 EST Performed On: 04/14/2019 6:14 EST by MORRO GILLIAM RN Height and Weight, Routine Routine Weight Source : Bed scale Routine Weight Entry Format : Metric Routine Weight, Kilograms : 106 kg(Converted to: 233 lb 11 oz) Routine Weight Calculation : 106 kg Height Source : Stated Height Entry Format : [place] Height, Feet : 6 ft Height, Inches : 1 Inch Clinical Height : 185.42 cm Body Surface Area (BSA), Routine : 2.3 m2 Body Mass Index (BMI), Routine : 30.83 kg/m2 MORRO GILLIAM RN - 04/14/2019 6:14 EST Electronically signed by Radha Villarreal Conversion Energy Management Specialist Cerner at 06/19/2022 4:30 PM CDT documented in this encounter Plan of Treatment Not on file documented as of this encounter Visit Diagnoses Not on filedocumented in this encounter
--- OUTSIDE RECORDS SUMMARY | 2024-08-06 19:14 | XMS_ITS | Encounter Summary ---
Author Organization [employer] Address [address] [place] [address] Care Team Providers Care Delivery Aide Name Role Phone Unavailable Primary Care Provider Unavailabl e Encounter Details Date Type Department Care Team (Late st Contact Info) Description 04/10/2019 Transcribed Document [facility] Family Medicine [address] [place] [address] ProviderSharon MD [address] [place] [address] Social History Tobacco Use Types Packs/Day Years Used Date Smoking Tobacco: Never Assessed Sex and Gender Information Value Date Recorded Sex Assigned at Not on file Legal Sex Male 6:54 PM CDT Gender Identity Not on file Sexual Orientation Not on file documented as of this encounter Miscellaneous Notes * Cerner Conversion Note - Historical ProviderMD - 04/10/2019 5:00 AM ADMISSIONS MANAGER RN Chart Check - Review Order Profile Entered On: 04/10/2019 6:18 EST Performed On: 04/10/2019 5:00 EST by Luda Kay, RN Chart Check Powerplans Initiated/Discontinued as Appropriate : Not applicable All Active Orders Reviewed : Yes Luda Kay RN - 04/10/2019 6:18 EST Electronically signed by Phil [facility] Conversion Loading Manager Cerner at 06/19/2022 4:32 PM CDT documented in this encounter Plan of Treatment Not on file documented as of this encounter Visit Diagnoses Not on filedocumented in this encounter
--- OUTSIDE RECORDS SUMMARY | 2024-08-06 19:14 | XMS_ITS | Encounter Summary ---
Author Organization [place] [employer] Address [address] [place] [address] Care Team Providers Care Box Stapler Name Role Phone Unavailable Primary Care Provider Unavailabl e Encounter Details Date Type Department Care Team (Late st Contact Info) Description 04/12/2019 Transcribed Document [facility] Family Medicine [address] [place] [address] ProviderSharon MD [address] [place] [address] Social History Tobacco Use Types Packs/Day Years Used Date Smoking Tobacco: Never Assessed Sex and Gender Information Value Date Recorded Sex Assigned at Not on file Legal Sex Male 6:54 PM CDT Gender Identity Not on file Sexual Orientation Not on file documented as of this encounter Miscellaneous Notes * Cerner Conversion Note - Historical ProviderMD - 04/12/2019 2:27 PM STRATEGIC SOURCING CONSULTANT Spiritual Care Short Form Entered On: 04/12/2019 15:58 EST Performed On: 04/12/2019 14:27 EST by CHRISTINE GUTHRIE General Information, Spiritual Care Spiritual Care Referred by : Information Technology Internship initiated Reason for Visit : Initial Ministry Provided to : Patient Intervention/Comment/Summary Points : Provided pre-surgery visit and prayer. CHRISTINE GUTHRIE - 04/12/2019 15:57 EST documented in this encounter Plan of Treatment Not on file documented as of this encounter Visit Diagnoses Not on filedocumented in this encounter
--- OUTSIDE RECORDS SUMMARY | 2024-08-06 19:14 | XMS_ITS | Encounter Summary ---
Author Organization [employer] Address [address] [place] [address] Care Team Providers Care Deck Worker Name Role Phone Unavailable Primary Care Provider Unavailabl e Encounter Details Date Type Department Care Team (Late st Contact Info) Description 04/15/2019 Transcribed Document [facility] [place] [address] [place] [address] ProviderSharon MD [address] [place] [address] Social History Tobacco Use Types Packs/Day Years Used Date Smoking Tobacco: Never Assessed Sex and Gender Information Value Date Recorded Sex Assigned at Not on file Legal Sex Male 6:54 PM CDT Gender Identity Not on file Sexual Orientation Not on file documented as of this encounter Miscellaneous Notes * Cerner Conversion Note - Historical ProviderMD - 04/15/2019 3:30 PM SOCIAL SERVICES DIRECTOR [facility] [place] [address] Visit Date/Time: 04/15/2019 15:30:49 DUANE RAUDEL The above patient was seen in the hospital today and needs to be excused from work/school until Return to Work/School Date: Mr. Richardson was in the hospital from 04/09/2019 to 04/15/2019. Advised to return to work in 1 week or after 04/22/2019. Electronically signed by [facility] Conversion Leacher Cerner at 06/19/2022 4:37 PM CDT documented in this encounter Plan of Treatment Not on file documented as of this encounter Visit Diagnoses Not on filedocumented in this encounter
--- OUTSIDE RECORDS SUMMARY | 2024-08-06 19:14 | XMS_ITS | Encounter Summary ---
Author Organization [employer] Address [address] [place] [address] Care Team Providers Care Brass Chaser Name Role Phone Unavailable Primary Care Provider Unavailabl e Encounter Details Date Type Department Care Team (Late st Contact Info) Description 04/14/2019 Transcribed Document [facility] [place] [address] [place] [address] ProviderSharon MD [facility] [place] [place] [address] Social History Tobacco Use Types Packs/Day Years Used Date Smoking Tobacco: Never Assessed Sex and Gender Information Value Date Recorded Sex Assigned at Not on file Legal Sex Male 6:54 PM CDT Gender Identity Not on file Sexual Orientation Not on file documented as of this encounter Miscellaneous Notes * Cerner Conversion Note - Historical ProviderMD - 04/14/2019 9:55 AM LACEWORKER Evaluation, Physical Therapy Entered On: 04/14/2019 15:53 EST Performed On: 04/14/2019 15:14 EST by JOAQUIN NUR Student PT General Information, PT Visit Type, PT : Initial evaluation JOAQUIN NUR Student PT - 04/14/2019 15:14 EST Patient Orders : Order Date Order Ordering 04/14/2019 09:55 Physical Therapy Eval and Treat Ordered By: JANICE BUCHANAN DO Active Diagnoses : No Qualifying Diagnoses LELIA JEWELL, PT - 04/14/2019 15:55 EST Therapy Diagnosis, PT : Gait Unsteadiness, Decreased LLE strength Onset of Problem, PT : 04/14/2019 EST JOAQUIN NUR Student PT - 04/14/2019 15:14 EST Admission Date : 04/09/2019 18:47 LELIA JEWELL, PT - 04/14/2019 15:55 EST Co-treated by, PT : Occupational Therapist Assisted by, PT : Physical Therapist JOAQUIN NUR Student PT - 04/14/2019 15:14 EST Personal Devices : Personal Devices No Devices Recorded Assistive Devices : Assistive Devices No Devices Recorded LELIA JEWELL, PT - 04/14/2019 15:[address] : Fall prevention measures General Information Comment, PT : Admitted as a transfer from an outside facilty c/o chest pain and symptoms that have lasted 2 months. Pt has a history of SVT (supra-ventricular tachycardia) since . An ablation and heart catheter procedure was done at [facility] 04/13/2019. Pt reports previously coming to [facility] for an ablation before in the past but [facility] has no record of this procedure and pt did not specify any date. hx: alcohol abuse, anxiety, hx sleep apnea, HTN, Hypothyroid, smoeker, sx for broken bone (pt referred to knee surgery when asked, and said sx was in the past and performed 10-15 years ago). JOAQUIN NUR, Student PT - 04/14/2019 15:14 EST General Status Patient Received Status : Up in chair Treatment Start Time : 04/14/2019 14:00 EST Patient Left Status : Up in restroom, RN/PCT informed, Communication board completed RN/PCT Informed Comment : RN Marla marcos'ed treatment prior to and was informed that Pt was sitting in bathroom after treatment. Pt told PTthat pt had been going to bathroom by pt's self several times already. PT accompanied pt to bathroom and determined it was pt was safe to leave. Treatment End Time : 04/14/2019 14:22 EST Treatment Time : 22 Minute(s) JOAQUIN NUR, Student PT - 04/14/2019 15:14 EST History and Environment Stairs Inside Comment : Stays on main level LELIA JEWELL PT - 04/14/2019 15:55 EST Living Situation, Therapy : Home Patient Lives With : Significant other(s), Spouse Persons Assisting Patient at Home : Significant other(s) Professional Skilled Services : None Persons Providing Information : Patient Home Equipment Therapy, PT : None JOAQUIN NUR, Student PT - 04/14/2019 15:14 EST Home Setup : Multi-level home LELIA JEWELL, PT - 04/14/2019 15:55 EST Stairs : Yes Stair Location(s) : Inside, Outside Outside Stairs, Number of Steps : 5 Outside Stairs Comment : pt describes it as 1 step with a railing on the left and then 4 steps with a railing on both sides to enter front door. Railing Outside : Yes JOAQUIN NUR, Student PT - 04/14/2019 15:14 EST Prior Level of Function PT GRID Prior LOF Ambulation, Household : Independent Prior LOF Ambulation, Community : Independent Prior LOF Bed Mobility : Independent Prior LOF Toileting : Independent Prior LOF Transfer : Independent JOAQUIN NUR, Student PT - 04/14/2019 15:14 EST Intervention Summary Heart Rate/Pulse Pre-intervention : 85 bpm O2 Pre-Intervention : room air SpO2 Pre-Intervention : 97 % Therapist Assessment Pre-intervention : pt presentation was stable. Heart Rate/Pulse Post-intervention : 89 bpm O2 Post-Intervention : room air SpO2 Post-Intervention : 97 % Therapist Assessment Post-intervention : pt presentation was stable. JOAQUIN NUR, Student PT - 04/14/2019 15:14 EST Upper Extremity Upper Extremity Dominance : Right Right UE Active ROM : WFL Right UE Strength : [facility] JOAQUIN NUR, Student PT - 04/14/2019 15:14 EST Right Upper Extremity Detailed ROM Grid Right Shoulder Flexion Range Right Elbow Flexion Range Right Elbow Extension Range Right Wrist Flexion Range Active : WFL WFL [facility] JOAQUIN AVILA, Student PT - 04/14/2019 15:14 EST JOAQUIN NUR, Student PT - 04/14/2019 15:14 EST JOAQUIN NUR, Student PT - 04/14/2019 15:14 EST JOAQUIN NUR, Student PT - 04/14/2019 15:14 EST Right Wrist Extension Range Right Forearm Pronation Range Right Forearm Supination Range [facility] PT - 04/14/2019 15:14 EST JOAQUIN NUR, Student PT - 04/14/2019 15:14 EST JOAQUIN NUR, Student PT - 04/14/2019 15:14 EST Left UE Active ROM : WFL Left UE Strength : JOAQUIN GRIFFIN Student PT - 04/14/2019 15:14 EST Left Upper Extremity Detailed ROM Grid Left Shoulder Flexion Range Left Elbow Flexion Range Left Elbow Extension Range Left Wrist Flexion Range Active : WFL WFL [facility] JOAQUIN NUR, Student PT - 04/14/2019 15:14 EST JOAQUIN NUR, Student PT - 04/14/2019 15:14 EST JOAQUIN NUR, Student PT - 04/14/2019 15:14 EST JOAQUIN NUR, Student PT - 04/14/2019 15:14 EST Left Wrist Extension Range Rehab Left Forearm Pronation Range Left Forearm Supination Range Active : WFL [facility] JOAQUIN NUR, Student PT - 04/14/2019 15:14 EST JOAQUIN NUR, Student PT - 04/14/2019 15:14 EST JOAQUIN NUR, Student PT - 04/14/2019 15:14 EST Upper Extremity Strength Impaired : Yes Right UE Strength : WFL Left UE Strength : [facility] JOAQUIN NUR, Student PT - 04/14/2019 15:14 EST Right Upper Extremity MMT Shoulder Flexion 0-180 : 3/fair Elbow Flexion 0-150 : 3/fair Elbow Extension 0-0 : 3/fair Wrist Flexion 0-80 : 3/fair Wrist Extension 0-70 : 3/fair JOAQUIN NUR, Student PT - 04/14/2019 15:14 EST Left Upper Extremity MMT Shoulder Flexion 0-180 : 3/fair Elbow Flexion 0-150 : 3/fair Elbow Extension 0-0 : 3/fair Wrist Flexion 0-80 : 3/fair Wrist Extension 0-70 : 3/fair JOAQUIN NUR, Student PT - 04/14/2019 15:14 EST Hand Top Ironer Test : pt is 3/5 symmetrically. JOAQUIN NUR, Student PT - 04/14/2019 15:14 EST Lower Extremity LLE Active ROM : [facility] LELIA JEWELL, PT - 04/14/2019 15:55 EST LELIA JEWELL, PT - 04/14/2019 15:55 EST RLE ROM Grid Hip Flexion (0-125) Knee Flexion (0-140) Knee Extension (0-0) Ankle Dorsiflexion (0-20) Active : WFL [facility] JOAQUIN NUR, Student PT - 04/14/2019 15:14 EST JOAQUIN NUR, Student PT - 04/14/2019 15:14 EST JOAQUIN NUR, Student PT - 04/14/2019 15:14 EST JOAQUIN NUR, Student PT - 04/14/2019 15:14 EST Left Lower Extremity Range of Motion Hip Flexion (0-125) Knee Flexion (0-140) Knee Extension (0-0) Ankle Dorsiflexion (0-20) Active : WFL WFL WFL WFL JOAQUIN NUR, Student PT - 04/14/2019 15:14 EST JOAQUIN NUR, Student PT - 04/14/2019 15:14 EST JOAQUIN NUR, Student PT - 04/14/2019 15:14 EST JOAQUIN NUR, Student PT - 04/14/2019 15:14 EST Right Lower Extremity MMT Hip Flexion (0-125) : 3/fair Knee Flexion (0-140) : 3/fair Knee Extension (0-0) : 3/fair Ankle Dorsiflexion (0-20) : 3/fair JOAQUIN NUR, Student PT - 04/14/2019 15:14 EST Left Lower Extremity MMT Hip Flexion (0-125) : 3/fair Knee Flexion (0-140) : 3/fair Knee Extension (0-0) : 3/fair Ankle Dorsiflexion (0-20) : 3/fair JOAQUIN NUR, Student PT - 04/14/2019 15:14 EST Lower Extremity Comment : Pt reports that the LLE is the leg that had knee surgery. Pt says it feels weaker and pt's gait demonstrated a slight unsteadiness. Pt also mentioned a decrease in step length and stride length mentioning pt's fear of falling. Therefore, pt was given RWx LELIA JEWELL, PT - 04/14/2019 15:55 EST Functional Mobility Mobility Grid Bed Roll Left : Supervision/set-up Bed Roll Right : Supervision/set-up Bed Scooting : Supervision/set-up Supine to Sit : Supervision/set-up Sit to Stand : Rehab Moderate assistance Bed to Chair : Supervision/set-up Chair to Bed : Supervision/set-up Stand to Sit : Rehab Moderate assistance Sit to Supine : Supervision/set-up JOAQUIN NUR, Student PT - 04/14/2019 15:14 EST Sit to Stand Device : Belt, gait, Walker, front wheel Bed to Chair Device : Belt, gait, Walker, front wheel Chair to Bed Device : Belt, gait, Walker, front wheel Stand to Sit Device : Belt, gait, Walker, front wheel JOAQUIN NUR, Kaylan PT - 04/14/2019 15:14 EST Gait Training/Assessment, PT Gait Deviations : Yes LELIA JEWELL, PT - 04/14/2019 15:55 EST Weight Bearing Status Maintained : Yes Weight Bearing Status : Full Gait Assistance Level : Assist, minimal JOAQUIN NUR Student PT - 04/14/2019 15:14 EST Walking Distance : 300' Ambulatory Devices : Gait belt, Walker, front wheel LELIA JEWELL, PT - 04/14/2019 15:55 EST Left Lower Gait Deviation : Step length, decreased, Stride length, decreased Gait Training Comment : pt gait is unsteady when transferring weightshift during swing and stance phase. Emphasis on LLE strength and biomechanics would be beneficial. JOAQUIN NUR Student PT - 04/14/2019 15:14 EST Cognition Assessment, PT Orientation : Oriented x 4 Follows Basic Command Assessment : Yes LELIA JEWELL, PT - 04/14/2019 15:55 EST Edu Topics Physical Therapy Education Grid Balance Training : Needs further teaching Bed Mobility Training : Needs further teaching Gait Training : Needs further teaching Role of Physical Therapy : Verbalizes understanding Safety : Needs further teaching Therapeutic Exercises : Needs further teaching Transfer Training : Verbalizes understanding Use of Assistive Device : Returns demonstration JOAQUIN NUR Student PT - 04/14/2019 15:14 EST Teaching/Learning Assessment Barriers To Learning : None evident Learning Style Preferences Patient : Verbal explanation JOAQUIN NUR Student PT - 04/14/2019 15:14 EST Indication Assesessment, PT PT Problem List : Impaired, gait, Impaired, strength, Impaired, transfers LELIA JEWELL, PT - 04/14/2019 15:55 EST Physical Therapy Indicated : Yes Potential Barriers To Therapy : None evident Rehabilitation Potential : Good JOAQUIN NUR Student PT - 04/14/2019 15:14 EST Plan of Care, PT PT Tx Plan/Goals Established w Patient : Yes JOAQUIN NUR Student PT - 04/14/2019 15:14 EST PT Frequency Rehab : Five days per week LLEIA JEWELL, PT - 04/14/2019 15:55 EST PT Duration Rehab : Fourteen days JOAQUIN NUR Student PT - 04/14/2019 15:14 EST PT Treatments Planned : Balance training, Gait training, Therapeutic exercises, Transfer training LELIA JEWELL, PT - 04/14/2019 15:55 EST Short Term Goals Mobility/Bed Mobility STG PT Grid Goal #1 Activity : Sit to stand Assist : Assist, minimal Date to Meet : 04/21/2019 EST Goal Status : Initial goal JOAQUIN NUR Student PT - 04/14/2019 15:14 EST Ambulation STG Grid Goal #1 Device : Walker, front wheel Distance : 450' Assist : Assist, minimal Date to Meet : 04/21/2019 EST Goal Status : Intial Goal LELIA JEWELL, PT - 04/14/2019 15:55 EST Sand Cutting Machine Operator Goals Mobility/Bed Mobility LTG PT Grid Goal #1 Activity : Sit to stand Assist : Supervision or set-up Date to Meet : 04/28/2019 EST Goal Status : Intial Goal JOAQUIN NUR Student PT - 04/14/2019 15:14 EST Ambulation LTG Grid Goal #1 Device : None Distance : 500' Assist : Supervision or set-up Date to Meet : 04/28/2019 EST Goal Status : Intial Goal LELIA JEWELL, PT - 04/14/2019 15:55 EST Treatment Note Subjective Comment : pt stated feeling weaker in the LLE and a decreased step length. Pt made fear of falling evident but it appeared to be eased with RWx as a assistive device for support as needed. LELIA JEWELL, PT - 04/14/2019 15:55 EST Patient's Response to Treatment : pt was cooperative and open to treatment. JOAQUIN NUR, Student PT - 04/14/2019 15:14 EST Additional Objective Information : pt was able to ambulate 300' w/ Emily using RWX Assessment : Pt is an individual who has unspecified a-fib and a recurrent/intermittent SVT despite adenosine and DCCNx2 at OSH. He has had 2 months of symptoms with chest pain but was able to complete most transfers SBA (excluding sit to stand and stand to sit w/ modA). Pt would benefit from PT to increase LLE strength and help with weight-shift during gait mechanics. Reviewed by and agreed to by PT LELIA JEWELL, PT - 04/14/2019 15:55 EST Plan for Treatment : improve gait steadiness improve LLE strength JOAQUIN NUR, Student PT - 04/14/2019 15:14 EST Pain Assessment Pain Score Pre-Intervention : 7 Pain Score Post-Intervention. : 0 Pain Comment : pt expressed having pain in two places. One was in pts back (7/10) and behind the knee (09/09) but both were relieved with gait and then repositioning back into bed. JOAQUIN NUR Student PT - 04/14/2019 15:14 EST Image 1 - Images currently included in the form version of this document have not been included in the text rendition version of the form. Anticipated Discharge Needs, OT/PT Anticipated Discharge to : Home, with family care JOAQUIN NUR Student PT - 04/14/2019 15:14 EST [place] [facility] Charges PT Eval Moderate Complexity : 1 JOAQUIN NUR Student PT - 04/14/2019 15:14 EST Electronically signed by Phil, [facility] Conversion Senior Commercial Loan Officer Cerner at 06/19/2022 4:31 PM CDT documented in this encounter Plan of Treatment Not on file documented as of this encounter Visit Diagnoses Not on filedocumented in this encounter
--- OUTSIDE RECORDS SUMMARY | 2024-08-06 19:14 | XMS_ITS | Encounter Summary ---
Author Organization [employer] Address [address] [place] [address] Care Team Providers Care Marketing Production Coordinator Name Role Phone Unavailable Primary Care Provider Unavailabl e Encounter Details Date Type Department Care Team (Late st Contact Info) Description 04/10/2019 Transcribed Document [facility] [place] [address] [place] [address] ProviderSharon MD [address], [place] [address] Social History Tobacco Use Types Packs/Day Years Used Date Smoking Tobacco: Never Assessed Sex and Gender Information Value Date Recorded Sex Assigned at Not on file Legal Sex Male 6:54 PM CDT Gender Identity Not on file Sexual Orientation Not on file documented as of this encounter Miscellaneous Notes * Cerner Conversion Note - Historical ProviderMD - 04/10/2019 12:42 PM [employer]LECT[employer]ICAL [employer] [facility] Authorization Entered On: 04/10/2019 12:42 EST Performed On: 04/10/2019 12:42 EST by Alonso Malik Mkt Air Transportation Provider-Utilization Mgt Primary Insurance Authorization Authorization and Policy Numbers : Insurance 1 Health Plan: [employer] Policy Number: [id number] Authorization Number: Insurance Primary Name : Hiren [id number] Authorization Status-Primary : Awaiting callback Reference Number-Primary : [id number] Authorized Service Begin Date-Primary : 04/09/2019 EST Authorization Comments-Primary : Inpt auth requested and clinicals submitted via [employer] as pt has commercial [place] plan, not Federal as listed. Historical Authorization Comments-Primary : Comment 1: Clinicals paper faxed. (Alonso Malik Mkt Air Transportation Provider-Utilization Mgt 04/10/2019 12:32) Alonso Malik Mkt Air Transportation Provider-Utilization Mgt - 04/10/2019 12:42 EST Electronically signed by [facility] Conversion Tinner Helper Cerner at 06/19/2022 4:38 PM CDT documented in this encounter Plan of Treatment Not on file documented as of this encounter Visit Diagnoses Not on filedocumented in this encounter
--- OUTSIDE RECORDS SUMMARY | 2024-08-06 19:14 | XMS_ITS | Encounter Summary ---
Author Organization [employer] Address [address] [place] [address] Care Team Providers Care Sawmill Manager Name Role Phone Unavailable Primary Care Provider Unavailabl e Encounter Details Date Type Department Care Team (Late st Contact Info) Description 04/13/2019 Transcribed Document [facility] [place] Family Medicine [address] [place] [address] ProviderSharon MD [address] [place], [place] [id number] Social History Tobacco Use Types Packs/Day Years Used Date Smoking Tobacco: Never Assessed Sex and Gender Information Value Date Recorded Sex Assigned at Not on file Legal Sex Male 6:54 PM CDT Gender Identity Not on file Sexual Orientation Not on file documented as of this encounter Miscellaneous Notes * Cerner Conversion Note - Sharon Phillips MD - 04/13/2019 5:34 PM HIGH LIGHTER Patient: RAUDEL ZEPEDA Age: 54 Years Sex: Male : 1965 Carpenters Supervisor: Hardik Benavidez MD Indication: 55 yo here for 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 He is here for AVRT and flutter ablation Procedure report: After written informed consent was obtained, the patient was brought to the Electrophysiology Laboratory in a fasting state. Sedation was obtained with general anesthesia. The right and left groins as well as right IJ were prepped and draped in the usual manner. 15 ml of 1% lidocaine was infiltrated in the right and left groin for local anesthesia. The following catheters were placed using ultrasound guidance. 1) 8 Fr in the right femoral vein. This was used to advance RV pacing catheter then 3.5 mm irrigated F/J ablation catheter. 2.) 7 Fr in the right femoral vein. This was used to advance a quadripolar deflectable catheter placed at the his 3) a 6 Fr in the right femoral vein to position an RV catheter 4) a right IJ access with a duodecapolar catheter which was placed in the CS for left atrial pacing and recording. 5.) 8 Fr in the left femoral vein for the intracardiac echo. 6) a 4 Fr arterial in the right femoral artery to monitor blood pressure. Heparin was given with boluses during the entire case to have an ACT around 250 .This was used for the his recording and to administer Isoproterenol. There was no pericardial effusion present prior to ablation as checked with intracardiac echo. The following baseline intervals were measured AH 130 ms, HV 60 ms. AV Wenchebach 450 ms, VA Wenckebach none as no retrograde conduction at baseline. A 3.5 mm, FJ curve thermocool ablation catheter was selected for mapping. The catheter was used to perform 3-D mapping of the right atrium and coronary sinus with a CARTO system. The location of the his signal was marked. The earliest ventricular signal was mapped in sinus rhythm as it was deemed to be more stable than during svt that would typically ago around 180 beats per minutes. After extensive mapping, the earliest he was found to be in the mid septal area exactly at 3:00 on the tricuspid valve. Furthermore, the accessory pathway was bumped twice at this area. Ablation was performed and the pathway disappeared in less than one second. Several insurance lesions were performed to avoid recurrence. After this, adenosine or Isuprel up to mcg/min could not induce SVT or show any reconnection of the accessory pathway even though the AV conduction never blocked despite 24 mg of adenosine. There was no retrograde conduction at baseline after ablation but this recovered with Isuprel. At this stage, The ICE catheter was used to inspect the heart prior to ablation of the CTI. There was a huge high eustachian ridge. The ICE was used to construct a 3-D model of the CTI. Ablation was carried out from the tricuspid annulus to the ER. After some difficulty , we had obtained bidirectional block. The trans-isthmus time post ablation was 145 ms.The trans-isthmus time was stable 15 minutes after final ablation. Catheters and sheaths were removed. Protamine was injected to a reverse anticoagulation. Hemostatsis was achieved with manual compression. Complications: No immediate complications were observed. Blood loss around 25 mL. Conclusion: Successful Procedure(s) of: 1. Ablation of SVT linked to WPW 2. Ablation of cavo tricuspid isthmus flutter Plan: Discharge tomorrow and follow-up with Dr. Mathews. Codes: SVT ablation (23577); additional SVT ablation (21990); 3D mapping (40101), LA pacing and recording (10528), intracardiac echo (96984), arterial line placement (41738), induce post IV drug (45118), vascular access with ultrasound. documented in this encounter Plan of Treatment Not on file documented as of this encounter Visit Diagnoses Not on filedocumented in this encounter
--- OUTSIDE RECORDS SUMMARY | 2024-08-06 19:14 | XMS_ITS | Encounter Summary ---
Author Organization [employer] Address [address] [place] [address] Care Team Providers Care Refined Syrup Operator Name Role Phone Unavailable Primary Care Provider Unavailabl e Encounter Details Date Type Department Care Team (Late st Contact Info) Description 04/10/2019 Transcribed Document [facility] [place] [address] [place] [address] ProviderSharon MD [address] [place] [address] Social History Tobacco Use Types Packs/Day Years Used Date Smoking Tobacco: Never Assessed Sex and Gender Information Value Date Recorded Sex Assigned at Not on file Legal Sex Male 6:54 PM CDT Gender Identity Not on file Sexual Orientation Not on file documented as of this encounter Miscellaneous Notes * Cerner Conversion Note - Historical ProviderMD - 04/10/2019 5:00 PM MACHINE SETUP OPERATOR Chart Check - Review Order Profile Entered On: 04/10/2019 18:31 EST Performed On: 04/10/2019 17:00 EST by Karen Painter RN Chart Check Powerplans Initiated/Discontinued as Appropriate : Yes All Active Orders Reviewed : Yes Karen Painter RN - 04/10/2019 18:31 EST Electronically signed by Phil [facility] Conversion Bladder Tier Cerner at 06/19/2022 4:31 PM CDT documented in this encounter Plan of Treatment Not on file documented as of this encounter Visit Diagnoses Not on filedocumented in this encounter
--- OUTSIDE RECORDS SUMMARY | 2024-08-06 19:14 | XMS_ITS | Encounter Summary ---
Author Organization [employer] Address [address] [place] [address] Care Team Providers Care Electrical Engineering Designer Name Role Phone Unavailable Primary Care Provider Unavailabl e Encounter Details Date Type Department Care Team (Late st Contact Info) Description 04/10/2019 Transcribed Document [facility] Radiology [address] [place] [address] Jerrell Kamara MD [address] [place] [address] Social History Tobacco Use Types Packs/Day Years Used Date Smoking Tobacco: Never Assessed Sex and Gender Information Value Date Recorded Sex Assigned at Not on file Legal Sex Male 6:54 PM CDT Gender Identity Not on file Sexual Orientation Not on file documented as of this encounter Miscellaneous Notes * Cerner Conversion Note - Jerrell Kamara MD - 04/10/2019 8:33 AM EST Patient: RAUDEL ZEPEDA Age: 54 years Sex: Male : 1965 Associated Diagnoses: None Author: JERRELL KAMARA MD-CAR Subjective NAD Patient seen and examined at the bedside. awake, alert, oriented x3. No events overnight. in Aflutter. Management Plan was discussed with the patient and Dr. Benavidez the EP consult. Health Status Current medications: (Selected) Inpatient Medications Ordered Ativan: 1 mg, IV Push, Q30Min, PRN: [...] mg, Oral, Q30Min, PRN: Other (See Comment) DuoNeb 0.5 mg-2.5 mg/3 mL inhalation solution: 3 mL, Nebulized Inhalation, Q6H, PRN: Shortness of Breath Lopressor: 25 mg, Oral, Q6H, PRN: Hypertension Mag-Ox 400: 400 mg, Oral, Daily Normal Saline 1,000 mL: 100 mL/Hr, IntraVENous Pepcid: 20 mg, Oral, Daily Phenergan: 6.25 mg, IntraVENous, Q6H, PRN: Nausea Tylenol: 650 mg, Oral, Q4H, PRN: Other (See Comment) Zofran: 4 mg, IV Push, Q4H, PRN: Nausea Zoloft: 50 mg, Oral, Daily amiodarone injection 450 mg + Dextrose 5% in Water intravenous solution 250 mL: Titrate, IntraVENous calcium gluconate + Sodium Chloride 0.9% intravenous [...] 0.9% for drip 100 mL: Titrate, IntraVENous folic acid: 1 mg, Oral, Daily haloperidol: 2 mg, IntraMuscular, Q4H, PRN: Agitation heparin injection 25,000 Units + NaCl 0.45% Premix Diluent 250 mL: Titrate, IntraVENous hydrALAZINE: 10 mg, IV Push, Q6H, PRN: Hypertension influenza virus vaccine, inactivated: 0.5 mL, IntraMuscular, [id number] labetalol: 20 mg, IV Push, Q1H, PRN: [...] 1 Patch, TransDermal, Daily potassium chloride 10 mEq/50 mL intravenous [...] (See Comment) thiamine: 100 mg, Oral, Daily Problem list: Active Problems (7) Alcohol abuse Anxiety History of obstructive sleep apnea Hypertension Hypothyroid Smoker SVT - Supraventricular tachycardia Objective Intake and Output 24 hour intake, 24 hour output VS/Measurements Vital Signs/Vital Measures 04/10/2019 6:00 EST Systolic Blood Pressure 118 mmHg Diastolic Blood Pressure 90 mmHg Mean Arterial Pressure (MAP)-BMDI 101 Temperature Source Oral Clinical Temperature, C 36.6 Deg C Heart Rate Monitored 65 bpm Respiratory Rate 24 Breaths/Min HI Oxygen Saturation 95 % , Vitals Signs (last 24 hrs) Last Charted Minimum Maximum Temp 97.9 (APR 10 06:00) 97.9 (APR 10 06:00) 98.5 (APR 09 20:00) Apical HR H 184 (APR 09 23:36) H 175 (APR 09 21:11) H 184 (APR 09 23:36) Mon HR 65 (APR 10 06:00) 65 (APR 10 06:00) 193 (APR 09 22:00) Resp Rate H 24 (APR 10 06:00) 16 (APR 10 03:00) H 39 (APR 10 00:00) SBP 118 (APR 10 06:00) 116 (APR 10 04:00) H 177 (APR 09 20:00) DBP 90 (APR 10 06:00) 75 (APR 10 05:00) H 116 (APR 09 19:00) MAP 101 (APR 10 06:00) 90 (APR 10 05:00) 136 (APR 09 19:00) SpO2 95 (APR 10 06:00) 94 (APR 10 02:00) 96 (APR 09 19:00) No qualifying data available General: Alert and oriented, No acute distress. Eye: Vision unchanged. HENT: No pharyngeal erythema. Neck: Supple, Non-tender, No carotid bruit. Respiratory: Breath sounds: Right, Upper lobe, Lower lobe, Crackles present. Cardiovascular: intermittently tachycardic. Edema: 2+. Gastrointestinal: Soft, Non-tender. Musculoskeletal: Normal range of motion, Normal strength. Integumentary: Warm, Dry, [place], Intact. Neurologic: Alert, Oriented. Psychiatric: Cooperative, Appropriate mood & affect. Results Review Telemetry Admission Weight Todays Weight APR 10 04:12 L 133 L 95 8 / H 214 L 3.1 H 33 1.00 \ Cardiac Markers (Current Encounter/Past 24 Hours) CK MB <1.00 ng/mL 04/10/2019 05:45 ProBNP 5275 pg/mL HI 04/09/2019 20:38 No Radiology Results Found Impression and Plan IMPRESSION: Aflutter with RVR -2:1 -hx of ablation at HTN- poorly controlled Alcohol abuse- quit using alcohol 2 weeks ago Acute CHF- unknown EF elevated proBNP, FVO PLAN; 04/10/2019 ECHO pending. Ischemic workup once stable. WPW history of ablation no plan for reablation as per EP. Aflutter rate controlled on [...]
--- OUTSIDE RECORDS SUMMARY | 2024-08-06 19:14 | XMS_ITS | Encounter Summary ---
Author Organization [employer] Address [address] [place] [address] Care Team Providers Care Senior Portfolio Analyst Name Role Phone Unavailable Primary Care Provider Unavailabl e Encounter Details Date Type Department Care Team (Late st Contact Info) Description 04/15/2019 Transcribed Document [facility] [place] Family Medicine [address] [place] [address] ProviderSharon MD [address] [place] [address] Social History Tobacco Use Types Packs/Day Years Used Date Smoking Tobacco: Never Assessed Sex and Gender Information Value Date Recorded Sex Assigned at Not on file Legal Sex Male 6:54 PM CDT Gender Identity Not on file Sexual Orientation Not on file documented as of this encounter Miscellaneous Notes * Cerner Conversion Note - Historical ProviderMD - 04/15/2019 10:17 AM EDGE GLUE MACHINE TENDER Attempt to Treat, PT Entered On: 04/15/2019 12:45 EST Performed On: 04/15/2019 10:17 EST by SCOTT BILLINGS PTA Attempt to Treat Unable to Treat Due To : Patient Refusal Inability to Treat Comment : pt refused due to wanting to take a shower first, will try back as time permits Notification : SCOTT Valdivia PTA - 04/15/2019 12:44 EST Electronically signed by Phil [facility] Conversion Acid Correction Hand Cerner at 06/19/2022 4:41 PM CDT documented in this encounter Plan of Treatment Not on file documented as of this encounter Visit Diagnoses Not on filedocumented in this encounter
--- OUTSIDE RECORDS SUMMARY | 2024-08-06 19:14 | XMS_ITS | Encounter Summary ---
Author Organization [employer] Address [address] [place] [address] Care Team Providers Care Rn Bsn Name Role Phone Unavailable Primary Care Provider Unavailabl e Encounter Details Date Type Department Care Team (Late st Contact Info) Description 04/19/2019 Transcribed Document [facility] [place] [address] [place] [address] ProviderSharon MD [address], [place] [address] Social History Tobacco Use Types Packs/Day Years Used Date Smoking Tobacco: Never Assessed Sex and Gender Information Value Date Recorded Sex Assigned at Not on file Legal Sex Male 6:54 PM CDT Gender Identity Not on file Sexual Orientation Not on file documented as of this encounter Miscellaneous Notes * Cerner Conversion Note - Sharon Phillips MD - 04/19/2019 9:27 AM DIRECTOR OF BUSINESS SYSTEMS UM Authorization Entered On: 04/19/2019 9:27 EST Performed On: 04/19/2019 9:27 EST by DARBY ELIAS RN Primary Insurance Authorization Authorization and Policy Numbers : Insurance 1 Health Plan: [employer] Policy Number: [id number] Authorization Number: Insurance Primary Name : Hiren [id number] Authorization Status-Primary : Drg approved Reference Number-Primary : [id number] Number of Days Authorized-Primary : 9 Day(s) Authorized Service Begin Date-Primary : 04/09/2019 EST Authorized Service End Date-Primary : 04/18/2019 EST Authorization Comments-Primary : Provided Dc Date/dispo to Faye via phone call Historical Authorization Comments-Primary : Comment 1: Per Availity, IP admit approved DRG NRD 04/19/2019. (DARBY ELIAS RN 04/12/2019 08:17) Comment 2: Inpt auth requested and clinicals submitted via Availity as pt has commercial [place] plan, not Federal as listed. (Alonso Malik Mkt Raw Finish Mill Operator-Utilization Mgt 04/10/2019 12:42) Comment 3: Clinicals paper faxed. (Alonso Malik Mkt Raw Finish Mill Operator-Utilization Mgt 04/10/2019 12:32) DARBY ELIAS RN - 04/19/2019 9:27 EST Electronically signed by [facility] Conversion Ross Lift Operator Cerner at 06/19/2022 4:40 PM CDT documented in this encounter Plan of Treatment Not on file documented as of this encounter Visit Diagnoses Not on filedocumented in this encounter
--- OUTSIDE RECORDS SUMMARY | 2024-08-06 19:14 | XMS_ITS | Encounter Summary ---
Author Organization [employer] Address [address] [place] [address] Care Team Providers Care French Cord Binder Name Role Phone Unavailable Primary Care Provider Unavailabl e Encounter Details Date Type Department Care Team (Late st Contact Info) Description 04/09/2019 Transcribed Document [facility] [place] Family Medicine [address] [place] [address] ProviderSharon MD [address] [place] [address] Social History Tobacco Use Types Packs/Day Years Used Date Smoking Tobacco: Never Assessed Sex and Gender Information Value Date Recorded Sex Assigned at Not on file Legal Sex Male 6:54 PM CDT Gender Identity Not on file Sexual Orientation Not on file documented as of this encounter Miscellaneous Notes * Cerner Conversion Note - Historical ProviderMD - 04/09/2019 7:14 PM PURCHASING AND CLAIMS SUPERVISOR Pain Assessment Entered On: 04/12/2019 8:07 EST Performed On: 04/12/2019 0:02 EST by MORRO GILLIAM RN Intervention Information: morphine Performed by MORRO GILLIAM RN on 04/11/2019 23:32:00 EST morphine,2mg IV Push,Left Hand,Pain (Severe 7-10) Pain Assessment Pain Assessment : Follow-up assessment Pain Scale Goal : 3 Pain Scale Used : 0-10 Scale Pain Improved by Intervention : Yes MORRO GILLIAM RN - 04/12/2019 8:07 EST Pain Scale Intensity : 2 MORRO GILLIAM RN - 04/12/2019 8:07 EST Image 4 - Images currently included in the form version of this document have not been included in the text rendition version of the form. documented in this encounter Plan of Treatment Not on file documented as of this encounter Visit Diagnoses Not on filedocumented in this encounter
--- OUTSIDE RECORDS SUMMARY | 2024-08-06 19:14 | XMS_ITS | Encounter Summary ---
Author Organization [employer] Address [address] [place] [address] Care Team Providers Care Clothes Separator Name Role Phone Unavailable Primary Care Provider Unavailabl e Encounter Details Date Type Department Care Team (Late st Contact Info) Description 04/10/2019 Transcribed Document [facility] [place] [address] [place] [address] ProviderSharon MD [address] [place] [address] Social History Tobacco Use Types Packs/Day Years Used Date Smoking Tobacco: Never Assessed Sex and Gender Information Value Date Recorded Sex Assigned at Not on file Legal Sex Male 6:54 PM CDT Gender Identity Not on file Sexual Orientation Not on file documented as of this encounter Miscellaneous Notes * Cerner Conversion Note - Historical ProviderMD - 04/10/2019 2:00 AM AIR DIRECTOR Stage Electrician Details Entered On: 04/10/2019 3:34 EST Performed On: 04/10/2019 2:00 EST by Luda Kay, RN Order Details Order Detail : N/A IV Order Detail : 1 Oxygen Order Detail : 1 Nurse Collect Order Detail : 1 Lift/Transfer : Minimal Central Line Order Detail : No Room Service : Not Appropriate Arterial Line : No Luda Kay, RN - 04/10/2019 3:34 EST documented in this encounter Plan of Treatment Not on file documented as of this encounter Visit Diagnoses Not on filedocumented in this encounter
--- OUTSIDE RECORDS SUMMARY | 2024-08-06 19:14 | XMS_ITS | Encounter Summary ---
Author Organization [employer] Address [address] [place] [address] Care Team Providers Care Lamp Developer Name Role Phone Unavailable Primary Care Provider Unavailabl e Encounter Details Date Type Department Care Team (Late st Contact Info) Description 04/12/2019 Transcribed Document [facility] [place] Family Medicine [address] [place], [place] [address] ProviderSharon MD [address] [place] [address] Social History Tobacco Use Types Packs/Day Years Used Date Smoking Tobacco: Never Assessed Sex and Gender Information Value Date Recorded Sex Assigned at Not on file Legal Sex Male 6:54 PM CDT Gender Identity Not on file Sexual Orientation Not on file documented as of this encounter Miscellaneous Notes * Cerner Conversion Note - Sharon ProviderMD - 04/12/2019 7:59 PM ARMED GUARD DATE OF SERVICE: 04/12/2019 LEXISCAN MYOVIEW PERFUSION STUDY INDICATION: Abnormal EKG, cardiomyopathy. RESTING ELECTROCARDIOGRAM: Normal sinus rhythm, WPW. LEXISCAN STRESS: Standard Lexiscan stress protocol. Peak heart rate response of 88 beats per minute, blood pressure response to 153/101 mmHg were achieved. There is no arrhythmia. The stress electrocardiogram is nondiagnostic secondary to baseline WPW. 11 mCi of Myoview was administered prior to rest scan and 32.5 mCi prior to the post stress scan. MYOVIEW PERFUSION DATA: Reversible defect: There is mild partial reversible defect involving the basal, mid, distal inferior wall. Fixed defects: None. Left ventricular function: Gated measurement of left ventricular systolic function post-stress was 58%. No regional wall motion abnormalities. IMPRESSION: Mildly abnormal Lexiscan Myoview perfusion study. Mild partial inferior reversible defect could represent slight difference in positioning between rest and post stress images or mixture of scar and ischemia involving the right coronary artery territory. Normal left ventricular systolic function post stress. /[id number] Norbert Cardenas MD SSL/AQ / SSL / MODL /[id number] CC: Alonso Melendez Dr. Electronically signed by [facility] Conversion Geophysical Manager Cerner at 06/19/2022 4:41 PM CDT documented in this encounter Plan of Treatment Not on file documented as of this encounter Visit Diagnoses Not on filedocumented in this encounter
--- OUTSIDE RECORDS SUMMARY | 2024-08-06 19:14 | XMS_ITS | Encounter Summary ---
Author Organization [employer] Address [address] [place] [address] Care Team Providers Care Avionics Supervisor Name Role Phone Unavailable Primary Care Provider Unavailabl e Encounter Details Date Type Department Care Team (Late st Contact Info) Description 04/15/2019 Transcribed Document [facility] [place] [address] [place] [address] ProviderSharon MD [address] [place] [address] Social History Tobacco Use Types Packs/Day Years Used Date Smoking Tobacco: Never Assessed Sex and Gender Information Value Date Recorded Sex Assigned at Not on file Legal Sex Male 6:54 PM CDT Gender Identity Not on file Sexual Orientation Not on file documented as of this encounter Miscellaneous Notes * Cerner Conversion Note - Historical ProviderMD - 04/15/2019 2:00 AM IT HELP DESK ASSOCIATE Photograph Developer Details Entered On: 04/15/2019 4:16 EST Performed On: 04/15/2019 2:00 EST by YEIMY CASTRO RN Order Details Transport Mode Order Detail : Wheelchair Isolation Precautions Order Detail : Standard Precautions Order Detail : N/A IV Order Detail : 1 Oxygen Order Detail : 0 Nurse Collect Order Detail : 0 Lift/Transfer : Minimal Central Line Order Detail : No Room Service : Appropriate Arterial Line : No YEIMY CASTRO, HORTENCIA - 04/15/2019 4:16 EST Electronically signed by Radha Villarreal Conversion Installation And Repair Technician Cerner at 06/19/2022 4:34 PM CDT documented in this encounter Plan of Treatment Not on file documented as of this encounter Visit Diagnoses Not on filedocumented in this encounter
--- OUTSIDE RECORDS SUMMARY | 2024-08-06 19:14 | XMS_ITS | Encounter Summary ---
Author Organization [employer] Address [address] [place] [address] Care Team Providers Care Sales Advisor Name Role Phone Unavailable Primary Care Provider Unavailabl e Encounter Details Date Type Department Care Team (Late st Contact Info) Description 04/09/2019 Transcribed Document [facility] [place] [address] [place], [place] [id number] ProviderSharon MD [address] [place] [address] Social History Tobacco Use Types Packs/Day Years Used Date Smoking Tobacco: Never Assessed Sex and Gender Information Value Date Recorded Sex Assigned at Not on file Legal Sex Male 6:54 PM CDT Gender Identity Not on file Sexual Orientation Not on file documented as of this encounter Miscellaneous Notes * Cerner Conversion Note - Sharon Phillips MD - 04/09/2019 11:29 PM BOOTH MANAGER DATE OF ADMISSION: 04/09/2019 PRIMARY CARE PHYSICIAN: Not listed. CHIEF COMPLAINT: Palpitation and chest pain. HISTORY OF PRESENT ILLNESS: This is a 54-year-old male with known history of alcohol use, tobacco use, and history of supraventricular tachycardia. The patient presented at outside facility because of chest pain and palpitation which was going on for the last couple of days. The patient also complained about headache, dizziness, shortness of breath, cough, and difficulty breathing. The patient was transferred to [facility], on amiodarone drip. The patient came in, blood work done, shows elevated BNP. Urine drug screen was positive for benzodiazepine. The patient was started on amiodarone drip and heparin drip. The patient is lying in bed, anxious, not feeling well. at bedside. SYSTEMIC REVIEW: GENERAL: No fever or chills. HEAD: Positive for headache and dizziness. EYES: No change of vision. EARS: No earache. NOSE: No epistaxis. THROAT: No sore throat. RESPIRATORY: Positive for shortness of breath and cough. CARDIAC: Positive for chest pain and palpitation. GI: Positive for nausea, no vomiting. URINARY: No hematuria. MUSCULOSKELETAL: Generalized weakness. NEUROLOGICAL: No focal numbness or weakness. SKIN: No new rashes. ENDOCRINE: No heat or cold intolerance. PAST MEDICAL HISTORY: 1. Hypertension. 2. History of supraventricular tachycardia. 3. History of ablation. 4. Tobacco abuse. 5. Alcohol abuse. PAST SURGICAL HISTORY: 1. History of ablation. 2. History of surgery for broken bone. SOCIAL HISTORY: The patient with history of tobacco use, alcohol use. Denies any drug abuse. FAMILY HISTORY: Positive for stroke. ALLERGIES: No known drug allergies. HOME MEDICATIONS: 1. Doxepin daily. 2. Folic acid daily. 3. Hydrochlorothiazide and losartan 12.5/50 once daily. 4. Levothyroxine 75 mcg daily. 5. Magnesium oxide 400 mg daily. 6. Metoprolol 100 mg twice daily. 7. Prilosec 20 mg daily. 8. Sertraline 50 mg daily. PHYSICAL EXAMINATION: HEENT: Head atraumatic, normocephalic. Pupils are round and reactive. Eyes, no conjunctival injection or discharge. Ears, no discharge. Nose, no bleeding or discharge. Mouth, dry. NECK: Supple, full range of motion. CHEST: Poor inspiratory effort. Diminished air entry. Mild expiratory wheeze. No respiratory muscle retraction. HEART: S1 and S2 heard. Irregular rate and rhythm, tachycardic. ABDOMEN: Soft, audible bowel sounds. No tenderness. No guarding. No rebound tenderness. EXTREMITIES: No edema, erythema, or tenderness. NEUROLOGICAL: No apparent focal motor or sensory deficit. The patient is alert, awake, and oriented x3. Intact cranial nerves. PSYCHIATRIC: Positive for anxiety. SKIN: No apparent rashes or induration. ENDOCRINE: No thyromegaly or tenderness. GENERAL: The patient is lying in bed, anxious, in distress. at bedside. LABORATORY DATA AND STUDIES: Sodium 140, potassium 3.6, chloride 100, CO2 of 34, glucose 85, BUN 9, creatinine 1.0, calcium 8.8, protein 6.0, albumin 2.7, globulin 3.3, bilirubin 0.6, alkaline phosphatase 178, AST 25, ALT 20. A1c 5.9. Lipase 124. Lactic acid 0.8. Troponin 0.022. BNP 5275. White blood cells 6.7, hemoglobin 12.7, hematocrit 38.0, and platelets 250. INR 1.0. ASSESSMENT AND PLAN: 1. Supraventricular tachycardia. The patient with history of recurrent supraventricular tachycardia, admitted to intensive care unit. The patient was started on amiodarone drip. Cardiology consulted. The patient may need cardioversion. The patient with history of ablation. We will check cardiac enzymes. Check TSH and magnesium level. Further recommendation as per Cardiology. 2. Hypertension, uncontrolled. We will start hydralazine as needed. 3. History of alcohol abuse. The patient is at high risk of withdrawal symptoms. We will start thiamine, folic acid, multivitamins, and benzodiazepines. 4. Acute congestive heart failure, unknown ejection fraction. The patient may need echo. 5. Anxiety. The patient will be on Ativan as needed. 6. History of tobacco use, we will offer nicotine patch. 7. Gastrointestinal prophylaxis, Pepcid. 8. Deep venous thrombosis prophylaxis. The patient is on heparin drip. The patient is critically sick, high risk of complication. Plan discussed with the patient, with , with RN. Libia was reviewed. Critical time spent, 55 minutes. /[id number] MD SARA Alvarez/BETTY / SARA / BETY Electronically signed by Phil, [facility] Conversion Top Executive Cerner at 06/19/2022 4:39 PM CDT documented in this encounter Plan of Treatment Not on file documented as of this encounter Visit Diagnoses Not on filedocumented in this encounter
--- OUTSIDE RECORDS SUMMARY | 2024-08-06 19:14 | XMS_ITS | Encounter Summary ---
Author Organization [employer] Address [address] [place] [address] Care Team Providers Care Vmware Consultant Name Role Phone Unavailable Primary Care Provider Unavailabl e Encounter Details Date Type Department Care Team (Late st Contact Info) Description 04/15/2019 Transcribed Document [facility] [place] [address] [place] [address] ProviderSharon MD [facility] [place] [address] Social History Tobacco Use Types Packs/Day Years Used Date Smoking Tobacco: Never Assessed Sex and Gender Information Value Date Recorded Sex Assigned at Not on file Legal Sex Male 6:54 PM CDT Gender Identity Not on file Sexual Orientation Not on file documented as of this encounter Miscellaneous Notes * Cerner Conversion Note - Sharon ProviderMD - 04/15/2019 11:47 AM FUR DRY CLEANER On Going Discharge Planning Entered On: 04/15/2019 11:52 EST Performed On: 04/15/2019 11:47 EST by YULI PATEL, RN-Assurance Senior Manager ED Care Management Progress Note Discharge Arrangements : Patient Post-Acute Information Patient Name: RAUDEL ZEPEDA Gender: Male : [birth year] Age: 54 Years No Post-Acute Placement(s) Listed No Post-Acute Service(s) Listed No [place] Referral(s) Listed Discharge Options Discussed with Patient : Home Health, Substance abuse/mental health Barriers to Discharge Identified : Clinical Condition of Patient Barriers to Discharge Unresolved : Clinical Condition of Patient Physician Agreeable to Move Forward with D/C Plan? : Yes YULI PATEL, RN-Assurance Senior Manager ED - 04/15/2019 11:47 EST Narrative Progress Note Narrative Progress Note : talked with Dr. Nagel and she has ordered a [facility]OP consult and is planning to discharge pt following this consult. CM called referral to [facility] p [phone] f [phone]. CM faxed facesheet to [facility] intake earlier today. [facility] on floor to see pt. Discussed DCP with BS RN, Marla and DC RN, Neena. SO planning to come to hospital this afternoon to transport pt to home. No additional CM needs identified at this time. Historical Progress Note : Day 5 - Pt on transfer to ast s/p ablation on 04/13/19; NSR; heparin/dexa gtts off; 02=2L; pt will need OLOP when medically stable for d/c; transport home with S.O.Gracie Chowdary. JUS MATAMOROS, Rn-Assurance Senior Manager - 04/14/19 10:47:49 Day 4 - Heparin gtt; Dexa gtt; pt off the unit for ablation; anticipate d/c home with S.O. when stable; OLOP consult on d/c. JUS MATAMOROS Rn-Assurance Senior Manager - 04/13/19 14:01:56 Anticipate pt will d/c home with S.O. when stable; OLOP consult when ready for d/c. JUS MATAMOROS Rn-Assurance Senior Manager - 04/12/19 12:03:20 YULI PATEL RN-Assurance Senior Manager ED - 04/15/2019 11:47 EST documented in this encounter Plan of Treatment Not on file documented as of this encounter Visit Diagnoses Not on filedocumented in this encounter
--- OUTSIDE RECORDS SUMMARY | 2024-08-06 19:14 | XMS_ITS | Encounter Summary ---
Author Organization [employer] Address [address] [place] [address] Care Team Providers Care Claims Service Adjustor Name Role Phone Unavailable Primary Care Provider Unavailabl e Encounter Details Date Type Department Care Team (Late st Contact Info) Description 04/09/2019 Transcribed Document [facility] [place] [address] [place] [address] ProviderSharon MD [address] [place] [address] Social History Tobacco Use Types Packs/Day Years Used Date Smoking Tobacco: Never Assessed Sex and Gender Information Value Date Recorded Sex Assigned at Not on file Legal Sex Male 6:54 PM CDT Gender Identity Not on file Sexual Orientation Not on file documented as of this encounter Miscellaneous Notes * Cerner Conversion Note - Historical ProviderMD - 04/09/2019 8:32 PM PLATE HANGER Consult Phone Call Documentation Entered On: 04/10/2019 8:43 EST Performed On: 04/10/2019 8:00 EST by Cyrstal Adamson [facility] Phone Call for Consults Consult Phone Call/Page Attempt : Other: aware of consult Provider Service Notified Name : Cardiology Crystal Adamson [facility] - 04/10/2019 8:42 EST documented in this encounter Plan of Treatment Not on file documented as of this encounter Visit Diagnoses Not on filedocumented in this encounter
--- OUTSIDE RECORDS SUMMARY | 2024-08-06 19:14 | XMS_ITS | Encounter Summary ---
Author Organization [employer] Address [address] [place] [address] Care Team Providers Care Litigation Manager Name Role Phone Unavailable Primary Care Provider Unavailabl e Encounter Details Date Type Department Care Team (Late st Contact Info) Description 04/12/2019 Transcribed Document [facility] [place] [address] [place] [address] ProviderSharon MD [address] [place] [address] Social History Tobacco Use Types Packs/Day Years Used Date Smoking Tobacco: Never Assessed Sex and Gender Information Value Date Recorded Sex Assigned at Not on file Legal Sex Male 6:54 PM CDT Gender Identity Not on file Sexual Orientation Not on file documented as of this encounter Miscellaneous Notes * Cerner Conversion Note - Historical ProviderMD - 04/12/2019 2:00 AM INSTRUCTIONAL TECHNOLOGY INSTRUCTOR Shadowgraph Scale Operator Details Entered On: 04/12/2019 8:08 EST Performed On: 04/12/2019 2:00 EST by MORRO GILLIAM RN Order Details Transport Mode Order Detail : Portable Order Detail : N/A IV Order Detail : 1 Oxygen Order Detail : 1 Nurse Collect Order Detail : 1 Lift/Transfer : Minimal Central Line Order Detail : No Room Service : Not Appropriate Arterial Line : No MORRO GILLIAM RN - 04/12/2019 8:08 EST documented in this encounter Plan of Treatment Not on file documented as of this encounter Visit Diagnoses Not on filedocumented in this encounter
--- OUTSIDE RECORDS SUMMARY | 2024-08-06 19:14 | XMS_ITS | Encounter Summary ---
Author Organization Healthcare Address [address] [place] [address] Care Team Providers Care Psychiatric Nursing Aide Name Role Phone Casey Felix MD Primary Care Provider + [phone] Dotty Askew MD Unavailable [phone] Renetta Delgado LPN Unavailable Unavailable Encounter Details Date Type Department Care Team (Late Contact Info) Description 08/15/2023 Lab Requisition [facility] [address] [place] [address] Juan Pablo Rivas, DO [address] [place] [address] Encounter for general adult medical examination without abnormal findings Social History Tobacco Use Types Packs/Day Years Used Date Smoking Tobacco: Every Day Smokeless Tobacco: Never Alcohol Use Standard Drinks/Week Comments Yes 0 (1 standard drink = 0.6 oz pur e alcohol) daily- 1 pint per day Sex and Gender Information Value Date Recorded Sex Assigned at Not on file Legal Sex Male 8:39 PM EDT Gender Identity Not on file Sexual Orientation Not on file documented as of this encounter Plan of Treatment Upcoming Encounters Date Type Department Care Team (Late Contact Info) Description 09/02/2024 10:40 AM EDT Office Visit [facility] [place] [facility] [address] [facility] [place] [id number] Jakub Malave MD [address] [place] [address] documented as of this encounter Procedures Procedure Name Priority Date/Time Associated Diagnosis Comments BODY FLUID CELL COUNT W/ MANUAL DIFFERENTIAL Routine 08/15/2023 11:59 AM EDT Encounter for general adult medical examination without abnormal findings BODY FLUID, CYTOSPIN, PATHOLOGIST INTERPRETATION Routine 08/15/2023 11:59 AM EDT Encounter for general adult medical examination without abnormal findings JOINT FLUID CRYSTALS Routine 08/15/2023 11:59 AM EDT Encounter for general adult medical examination without abnormal findings documented in this encounter Results * Body fluid, cytospin, pathologist interpretation (08/15/2023 11:59 AM EDT) Specimen Type Joint Fluid 08/18/2023 5:29 PM EDT [facility] Specimen Source, Body Fluid 08/18/2023 5:29 PM EDT [facility] Clinical Diagnosis, Body Fluid History not provided 08/18/2023 5:29 PM EDT [facility] Interpretation, Body Fluid Acute inflammatory cells No pathogenic organisms seen Correlation with microbiology studies recommended A resident was involved in the service. I attest I examined the relevant preparations for the specimens and confirmed the diagnosis or interpretation. 08/18/2023 5:29 PM EDT [facility] Pathologist Signature, Body Fluid 08/18/2023 5:29 PM EDT [facility] Comment:Reviewed by: Yamini fong MD LAB CP ASR DISCLAIMER Yes 08/18/2023 5:29 PM EDT [facility] Joint Fluid 08/15/2023 11:5 9 AM EDT 08/15/2023 2:08 PM EDT us Juan Pablo Rivas DO LAB BODY FLUIDS AND STOOLS ORDER VALERIE Final Result [facility] [address] [place] [address] * (ABNORMAL) Body Fluid Cell Count w/ Diff (08/15/2023 11:59 AM EDT) Color, Body fluid Yellow LAB HEMATOLOGY METHOD 08/15/2023 4:01 PM EDT [facility] Appearance, Body fluid Cloudy(A) LAB [facility]OLOG[facility] Volume, Body fluid 4.0 cc LAB HEMATOLOGY METHOD [facility]/15[facility]2023 4:[facility] Fluid Container SPECIMEN RECEIVED IN EDTA TUBE LAB HEMATOLOGY METHOD 08/15/2023 4:01 PM EDT [facility] Red Blood Cell Count, Body fluid 64 uL LAB HEMATOLOGY METHOD 08/15/2023 4:01 PM [facility] Comment:Test performed by alexi tan method Total Nucleated Cell Count, Body fluid 13,742 uL LAB HEMATOLOGY METHOD 08/15/2023 4:01 PM EDT [facility] Neutrophils %, Body fluid 94 % LAB HEMATOLOGY METHOD 08/15/2023 4:[facility] Lymphocytes %, Body fluid 1 % LAB HEMATOLOGY METHOD 08/15/2023 4:01 PM EDT [facility] Monocytes/Macro phages %, Body fluid 5 % LAB HEMATOLOGY METHOD 08/15/2023 4:01 PM EDT [facility] Eosinophils %, Body fluid 0 % LAB HEMATOLOGY METHOD 08/15/2023 4:01 PM [facility] Basophils %, Body fluid 0 % LAB HEMATOLOGY METHOD 08/15/2023 4:01 PM EDT [facility] Lining/Mesothel ial Cells %, Body fluid 0 % LAB HEMATOLOGY METHOD 08/15/2023 4:[facility] Neutrophils Absolute (PMN), Body fluid 12,918 uL LAB HEMATOLOGY METHOD 08/15/2023 4:01 PM EDT [facility] Lymphocytes Absolute, Body fluid 137 uL LAB HEMATOLOGY METHOD 08/15/2023 4:[facility] Monocytes/Macro phages Absolute, Body fluid 687 uL LAB HEMATOLOGY METHOD 08/15/2023 4:01 PM [facility] Eosinophils Absolute, Body fluid 0 uL LAB HEMATOLOGY METHOD 08/15/2023 4:[facility] Basophils Absolute, Body fluid 0 uL LAB HEMATOLOGY METHOD 08/15/2023 4:01 [facility] Lining/Mesothel ial Cells Absolute, Body fluid 0 uL LAB HEMATOLOGY METHOD 08/15/2023 4:01 PM [facility] Comment, Body fluid NONE LAB HEMATOLOGY METHOD 08/15/2023 4:01 PM EDT [facility] Comment:This is an appended report. These results have been appended to a previously preliminary verified report. Joint Fluid 08/15/2023 11:5 9 AM EDT 08/15/2023 2:08 PM EDT us Gene J Rivas DO LAB BODY FLUIDS AND STOOLS ORDERABLES NO SPECIMEN TYPE/SOURCE Final Result Performing Organization Address [facility] de Phone Number [facility] [address] [place] [address] * Joint Fluid Crystals (08/15/2023 11:59 AM EDT) Crystals, Joint Fluid No Crystals Seen No Crystals Present 08/15/2023 3:09 PM EDT [facility] Joint Fluid 08/15/2023 11:5 9 AM EDT 08/15/2023 2:08 PM EDT us Gene J Rivas DO LAB BODY FLUIDS AND STOOLS ORDER VALERIE Final Result Performing Organization Address [facility] de Phone Number [facility] [address] [place] [address] documented in this encounter Visit Diagnoses Diagnosis Encounter for general adult medical examination without abnormal findings documented in this encounter Additional Health Concerns Infection Onset Date Last Indicated Resolved Time COVID-19 Rule-Out 12/08/2023 12/08/2023 12/08/2023 11:10 PM EDT C. difficile Rule-Out 12/09/2023 12/09/20232023 5:22 AM EDT Gastrointestinal Rule-Out 12/09/2023 12/09/2023 5:57 AM EDT Respiratory Rule-Out 12/09/2023 12/09/2023 10:18 AM EDT Enteropathogenic E. coli (EPEC) 12/09/2023 12/13/2023 1:13 PM EDT Assessment Noted Time A fall risk assessment has been complete d for the patient 09/05/2020 11:56 AM EDT documented as of this encounter Care Teams Psychiatric Nursing Aide Relationship Specialty Start Date End Date Casey Felix MD [address] [place] [address] PCP - General 09/05/20 Dotty Askew MD [address] [place] [address] Consulting Physician Pediatric Cardiology 09/05/20 Renetta Delgado LPN TCM Nurse 01/05/24 02/04/24 documented as of this encounter
--- OUTSIDE RECORDS SUMMARY | 2024-08-06 19:14 | XMS_ITS | Encounter Summary ---
Author Organization [employer] Address [address] [place] [address] Care Team Providers Care Egg Processing Supervisor Name Role Phone Unavailable Primary Care Provider Unavailabl e Encounter Details Date Type Department Care Team (Late st Contact Info) Description 04/13/2019 Transcribed Document [facility] [place] [address] [place] [address] ProviderSharon MD [facility] [address] Social History Tobacco Use Types Packs/Day Years Used Date Smoking Tobacco: Never Assessed Sex and Gender Information Value Date Recorded Sex Assigned at Not on file Legal Sex Male 6:54 PM CDT Gender Identity Not on file Sexual Orientation Not on file documented as of this encounter Miscellaneous Notes * Cerner Conversion Note - Sharon Phillips MD - 04/13/2019 9:08 AM BUSINESS SYSTEMS ADVISOR Patient: RAUDEL ZEPEDA Age: 54 years Sex: Male : 1965 Associated Diagnoses: None Author: SHILO MONTES DE OCA MD-CAR Subjective NAD Health Status Allergies: Allergic Reactions (Selected) No Known Allergies Current medications: (Selected) Inpatient Medications Ordered Aldactone: [...] mg, Oral, TID Toprol-XL: 25 mg, Oral, Daily Tylenol: 650 mg, Oral, Q4H, PRN: Other (See Comment) Zofran: 4 mg, IV Push, Q4H, PRN: Nausea Zoloft: 50 mg, Oral, Daily calcium gluconate + Sodium [...] IV Piggyback, Q2H, PRN: Other (See Comment) midazolam: 2 mg, IV Push, 1-Time morphine: 2 mg, IV Push, Q2H, PRN: [...] influenza virus vaccine, inactivated: 0.5 mL, IntraMuscular, [id number] Documented Medications Documented Metoprolol Tartrate 100 mg [...] Daily, before a meal, 30 Cap, 0 Refill(s) Problem list: All Problems Alcohol abuse / SNOMED CT 51069303 / Confirmed Anxiety / SNOMED CT 02460965 / Confirmed History of obstructive sleep apnea / IMO [id number] / Confirmed Hypertension / SNOMED CT 1496809997 / Confirmed Hypothyroid / SNOMED CT 93067198 / Confirmed Smoker / SNOMED CT 540198684 / Confirmed SVT - Supraventricular tachycardia / SNOMED CT 9167852964 / Confirmed, Active Problems (7) Alcohol abuse Anxiety History of obstructive sleep apnea Hypertension Hypothyroid Smoker SVT - Supraventricular tachycardia Objective Intake and Output 24 hour intake, 24 hour output VS/Measurements Vitals Signs (last 24 hrs) Last Charted Minimum Maximum Temp 97.6 (APR 13 04:00) 97.6 (APR 13 04:00) 98 (B 19:35) Apical HR 66 (APR 13 08:07) 66 (APR 13 08:07) 69 (APR 12 10:45) Mon HR 64 (B 07:00) 64 (APR 13 07:00) 78 (APR 12 13:00) Resp Rate H 48 (APR 12 14:00) H 22 (APR 12 13:00) H 48 (APR 12 14:00) SBP 137 (B 07:00) 120 (B 17:00) H 166 (APR 12 15:00) DBP 86 (APR 13 07:00) 68 (APR 12 17:00) H 106 (B 21:00) MAP 106 (B 07:00) 89 (B 17:00) 121 (B 22:00) SpO2 98 (APR 13 07:00) L 92 (APR 12 12:00) 98 (B 15:00) General: Alert and oriented, No acute distress. Eye: Vision unchanged. HENT: No pharyngeal erythema. Neck: Supple, Non-tender, No carotid bruit. Respiratory: Breath sounds: Right, Upper lobe, Lower lobe, mild Crackles present. Cardiovascular: intermittently tachycardic. Edema: 2+. Gastrointestinal: Soft, Non-tender. Musculoskeletal: Normal range of motion, Normal strength. Integumentary: Warm, Dry, [place], Intact. Neurologic: Alert, Oriented. Psychiatric: Cooperative, Appropriate mood & affect. Results Review Telemetry traffic monitor specialist personally reviewed shows NSR 60-70's The EKG shows sinus rhythm with preexcitation APR 13 04:09 L 132 L 100 8 / 92 4.2 30 0.80 \ APR 13 04:09 \ L 11.9 / 6.0 214 / L 36.0 \ ECHO 04/10/2019 Impression: Left ventricle measures [...] function post stress. Impression and Plan IMPRESSION: 55 yo male followed by Dr. 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 PLAN; 04/13/19 Discontinue Heparin gtt. Proceed with EPS/ablation this afternoon. talked with primary translator deaf that suggest WPW ablation and flutter 04/12/19 Discontinue Amio gtt. Patient is to have Lilliam stress test today per Cardiology. Patient is agreeable and wants to proceed with EPS/ablation. Risks, benefits explained. Written and verbal consents obtained. Patient will be NPO after midnight and is on schedule tomorrow 04/13/19 to follow 1st case. 04/10/19 Retrieve [facility] records; cardiac echo Would continue amiodarone drip over the weekend as arrhythmia were multiple and very resistant. Would hold beta sonia for now; heparin reasonable at this stage as he is in persistent A. fib for now An ablation is reasonable next week if the patient is agreeable Consider aggressive potassium replacement Electronically signed by Radha Villarreal Conversion Yard Supervisor [employer] Cerner at 06/19/2022 4:29 PM CDT documented in this encounter Plan of Treatment Not on file documented as of this encounter Visit Diagnoses Not on filedocumented in this encounter
--- OUTSIDE RECORDS SUMMARY | 2024-08-06 19:14 | XMS_ITS | Clinical Summary ---
Author Organization Healthcare Address [address] [place] [address] Care Team Providers Care [employer]ra[employer] Worker Name Role Phone Casey Felix MD Primary Care Provider [phone] Dotty Askew MD Unavailable [phone] Allergies Active Allergy Reactions Criticality Noted Date Comments Hydrochlorothiazide Rash High 12/08/2023 KIDNEYS SHUTTING DOWN Medications * This document contains information received from the source organization and may not represent a complete record from that organization. amiodarone (Pacerone) 200 MG tablet Take 1 tablet (200 mg) by mouth 1 (one) time each day. 30 tablet 01/04/20 24 Active apixaban (Eliquis) 5 MG tablet Take 1 tablet (5 mg) by mouth 2 (two) times a day. 60 tablet 01/03/20 24 Active levothyroxine (Synthroid, Levoxyl) 125 MCG tablet Take 1 tablet (125 mcg) by mouth 1 (one) time each day in the morning. 30 tablet 01/03/20 24 Active pantoprazole (Protonix) 40 MG EC tablet Take 1 tablet (40 mg) by mouth 1 (one) time each day before breakfast. Do not crush, chew, or split. 30 tablet 01/04/20 24 Active sertraline (Zoloft) 100 MG tablet Take 1 tablet (100 mg) by mouth 1 (one) time each day. 30 tablet 01/04/20 24 Active folic acid (Folvite) 1 MG tablet Take 1 tablet (1 mg) by mouth 1 (one) time each day. 30 tablet 01/04/20 24 Active naltrexone (ReVia) 50 MG tablet Take 1 tablet (50 mg) by mouth 1 (one) time each day. 30 tablet 01/04/20 24 Active thiamine (Vitamin B-1) 100 MG tablet Take 1 tablet (100 mg) by mouth 1 (one) time each day. 30 tablet 01/04/20 24 Active bumetanide (Bumex) 1 MG tablet Take 1 tablet by mouth daily as needed (weigh daiy, if gained over 3 pounds in one day please take 1/2 tablet). 06/02/19 25 Active metoprolol succinate XL (Toprol-XL) 100 MG 24 hr tablet Take 1 tablet by mouth daily. Do not crush or chew. 06/03/19 25 Active acetaminophen (Tylenol) 325 MG tablet Take 2 tablets by mouth every 6 (six) hours. Under [place] law, monthly prescriptions (30 days) can be refilled at 25 days and three-month prescriptions (90 days) at 80 days. Please contact the insurance company with questions if refills are denied. 06/02/19 25 Active calcium carbonate (Tums) 500 MG chewable tablet Chew 1 tablet in the morning and 1 tablet before bedtime. 06/02/19 25 Active empagliflozin (Jardiance) 10 MGIndications:Lef t Systolic Heart Failure Take 1 tablet by mouth daily. 06/03/19 25 Active ergocalciferol (Vitamin D-2) 1.25 MG (02195 UT) capsule Take 1 capsule by mouth 1 (one) time per week. 06/06/19 25 Active lidocaine (Lidoderm) 5 % patch Apply 1 patch topically 1 (one) time each day at the same time over 12 hours. Remove & discard patch within 12 hours or as directed by . 06/02/19 25 Active melatonin tablet Take 1 tablet by mouth at night as needed for sleep. 06/02/19 25 Active methocarbamol (Robaxin) 750 MG tablet Take 1 tablet by mouth 4 (four) times a day as needed for muscle spasms. 06/02/19 25 Active nicotine (Nicoderm CQ) 14 MG/24HR patch Place 1 patch on the skin daily. 06/03/19 25 Active polyethylene glycol (Miralax) 17 g packet Take 17 g by mouth in the morning and 17 g before bedtime. 06/02/19 Active senna (Senokot) 8.6 MG tablet Take 2 tablets by mouth nightly. 06/02/19 Active sevelamer carbonate (Renvela) 800 MG tabletIndications :Hyperphosphatemi a Take 1 tablet by mouth in the morning and 1 tablet at noon and 1 tablet in the evening. Take with meals. Swallow tablet whole; do not crush, break, or chew. 06/02/19 Active sodium zirconium cyclosilicate (Lokelma) 10 g packet Take 10 g by mouth daily before breakfast. 06/03/19 Active Active Problems Problem Noted Date Diagnosed Date Heart failure with reduced ejection fraction 03/2024 Age-related osteoporosis with current pathologic al fracture 05/18/2024 Other closed fracture of lef t femur, unspecified portion of femur, initial encounter 05/13/2024 Alcohol withdrawal with comp lication with inpatient treatment 12/09/2023 Hypomagnesemia 12/09/2023 Tobacco use disorder, severe, dependence 024 COPD (chronic obstructive pulmonary disease) 10/2023 Right bundle branch block 12/09/2023 Hydrocele 12/09/2023 Necrotic ulceration of fingers 12/09/2023 Paroxysmal atrial flutter 12/09/2023 Pulmonary hypertension 12/09/2023 Seizure 12/09/2023 Overview (12/09/2023): Alcohol withdrawal Visual floaters 12/09/2023 Paroxysmal A-fib 12/09/2023 Atrial fibrillation with rapid ventricular respo nse 06/27/2023 Alcohol use disorder, severe, dependence 024 Chronic HFrEF (heart failure with reduced ejection fraction) 06/27/2023 Cardiomyopathy 06/27/2023 HLD (hyperlipidemia) 06/27/2023 Hypothyroidism (acquired) 06/27/2023 Anxiety with depression 12/19/2017 LEX on CPAP 12/19/2017 GERD (gastroesophageal reflux disease) 6 Essential hypertension 12/01/2015 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 Follow up with cardiology next week. Dr Mathews. Call if symptoms redevelop. 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 12/09/2023 12/09/2023 Partial traumatic amputation of right little finger through phalanx 12/09/2023 12/09/2023 Closed fracture of greater t rochanter of right femur 06/27/2023 12/09/2023 Diarrhea 05/15/2016 12/09/2023 Non-intractable vomiting with nausea 05/15/2016 12/09/2023 Erectile dysfunction 12/01/2015 024 Insomnia 12/01/2015 12/09/2023 Encounters Date Type Department Care Team Description 07/14/2024 Telephone [employer] [place] [facility] [address] [facility] [address], [address] [place] [address] Isabella Jordan RN 06/01/2024 Travel 05/17/2024 Travel 05/14/2024 7:32 AM EDT Anesthesia Event [facility] [address] [place] [address] Nathanael Salas MD Benson, Cathryn M, [employer] 05/14/2024 7:30 AM EDT - 05/14/2024 10:55 AM EDT Surgery [facility] [address] [place] [address] Jai Joyce MD INSERTION, INTRAMEDULLARY NAIL, LEFT INTERTROCHANTERIC FEMUR FRACTURE 05/14/2024 Orders Only External Location [address] [place] [address] Provider, External 05/14/2024 Travel 05/13/2024 12:18 AM EDT - 06/01/2024 4:21 PM EDT Hospital Encounter [facility] [address] [place] [address] Matty, Ha B, MD Fourie, Meghana, DO Ralf, Gosia, DO Adams, Romil, MD Adams, Jagriti, MD Age-related osteoporosis with current pathological fracture, initial encounter (Primary Dx); Other closed fracture of left femur, unspecified portion of femur, initial encounter ([facility]); ETOH abuse; Atrial fibrillation, unspecified type ([facility]); Gastroesophageal reflux disease, unspecified whether esophagitis present; Alcohol use disorder, severe, dependence ([facility]); Tobacco use disorder, severe, dependence; Hypomagnesemia; Chronic HFrEF (heart failure with reduced ejection fraction) ([facility]); Chronic bronchitis, unspecified chronic bronchitis type ([facility]); Secondary hyperparathyroidism ([facility]); Vitamin D deficiency; Heart failure with reduced ejection fraction ([facility]); Paroxysmal A-fib ([facility]) Discharge Disposition: Half-Way Facility 05/13/2024 Travel 05/12/2024 Orders Only External Location [address] [place] [address] Rip Pichardo PA 05/12/2024 Orders Only External Location [address] [place] [address] Rip Pichardo PA 05/12/2024 Orders Only External Location [address] [place] [address] Rip Pichardo PA 05/12/2024 Orders Only External Location [address] [place] [address] Rip Pichardo PA 05/12/2024 Orders Only External Location [address] [place] [address] Rip Pichardo PA 05/12/2024 Orders Only External Location [address] [place] [address] Lashell Rosenberg DO 05/12/2024 Orders Only External Location [address] [place] [address] Rip Pichardo PA 05/12/2024 Orders Only External Location [address] [place] [address] Gigi Phillips 05/12/2024 Orders Only External Location [address] [place] [address] Rip Pichardo PA 05/12/2024 Orders Only External Location [address] [place] [address] Rip Pichardo PA 05/12/2024 Orders Only External Location [address] [place] [address] Rip Pichardo PA 05/12/2024 Orders Only External Location [address] [place] [address] Lashell Rosenberg, DO 05/12/2024 Orders Only External Location [address] [place] [address] Rip Pichardo PA 05/12/2024 Orders Only External Location [address] [place] [address] Rip Pichardo PA 05/12/2024 Orders Only External Location [address] [place] [address] Rip Pichardo PA from Last 3 Months Immunizations Immunization Administration Dates Next Due Tdap 05/13/2024,01/22/2023 Family History Medical History Relation Name Comments Hypertension Father Heart attack Mother Hypertension Mother Stroke Mother Sudden Mother Hypertension Other Colon cancer Son Relation Name Status Comments Father Mother Other Son Social History Tobacco Use Types Packs/Day Years Used Date Smoking Tobacco: Every Day Cigarettes 2 42.7 Started: 12/08/1981 Smokeless Tobacco: Never Tobacco Cessation:Ready to Q uit: No; Counseling Given: Yes Alcohol Use Standard Drinks/Week Comments Yes 0 (1 standard drink = 0.6 oz pure alcohol) daily- 1 fifth/day of bourbon - 12/05 last drink - last drink 48 hours ago Humiliation, Afraid, Rape, and Kick questionnair e Answer Date Recorded Within the last year, have y ou been afraid of your partner or ex-partner? No 05/13/2024 Within the last year, have y ou been humiliated or emotionally abused in other ways by your partner or ex-partner? No Within the last year, have y ou been kicked, hit, slapped, or otherwise physically hurt by your partner or ex-partner? No 05/13/2024 Within the last year, have y ou been raped or forced to have any kind of sexual activity by your partner or ex-partner? No 05/13/2024 Social Connection and Isolation Panel Answer Date Recorded In a typical week, how many times do you talk on the phone with family, friends, or neighbors? Never 05/13/2024 How often do you get together with friends or re latives? Never 05/13/2024 How often do you attend islam or taoist serv ices? Never 05/13/2024 Do you belong to any clubs o r organizations such as islam groups, unions, fraternal or athletic groups, or school groups? No 05/13/2024 How often do you attend meet ings of the clubs or organizations you belong to? Never 05/13/2024 Are you , , di vorced, , never , or living with a partner? 05/13/2024 AUDIT-C Answer Date Recorded Q1: How often do you have a drink containing alcohol? Patient unable to answer 05/13/2024 Average Number of Drinks Not on file 025 Frequency of Binge Drinking Not on file 05/01 Overall Financial Resource Strain (CARDIA) Answe r Date Recorded How hard is it for you to pa y for the very basics like food, housing, medical care, and heating? Patient unable to answer 05/13/2024 [facility] - Occupational Stress Questionnaire Answer Date Recorded Do you feel stress - tense, restless, nervous, or anxious, or unable to sleep at night because your mind is troubled all the time - these days? Patient unable to answer 05/13/2024 Exercise Vital Sign Answer Date Recorde d On average, how many days pe r week do you engage in moderate to strenuous exercise (like a brisk walk)? Patient unable to answer 05/13/2024 On average, how many minutes do you engage in exercise at this level? Patient unable to answer 05/13/2024 Hunger Vital Sign Answer Date Recorded Within the past 12 months, y ou worried that your food would run out before you got the money to buy more. Never true 05/14/19 25 Within the past 12 months, t he food you bought just didn't last and you didn't have money to get more. Never true 05/13/2024 PRAPARE - Transportation Answer Date Re corded In the past 12 months, has l ack of transportation kept you from medical appointments or from getting medications? No 05/01 In the past 12 months, has l ack of transportation kept you from meetings, work, or from getting things needed for daily living? No 05/13/2024 Housing Stability Vital Sign Answer Myron e Recorded In the last 12 months, was t here a time when you were not able to pay the mortgage or rent on time? No 12/09/2023 Number of Places Lived in the Last Year Not on f ile 12/09/2023 In the last 12 months, was t here a time when you did not have a steady place to sleep or slept in a penitentiary (including now)? No 12/09/2023 Housing Stability Vital Sign Answer Myron e Recorded In the last 12 months, was t here a time when you were not able to pay the mortgage or rent on time? No 05/13/2024 Number of Times Moved in the Last Year Not on fi le 05/13/2024 At any time in the past 12 m [facility], were you homeless or living in a penitentiary (including now)? No 05/13/2024 CAGE ASSESSMENT Answer Date Recorded Due to the following: Medical status 05/13/2024 Maximum number of drinks you had on a given occasion in the last month? 5 or more drinks 05/13/2024 How many alcoholic Beverages do you typically drink in a week? 15 or more per week 05/13/2024 Have you ever felt you shoul d CUT down on your drinking? 0 05/13/2024 Have you been ANNOYED by peo ple criticizing your drinking? 0 05/13/2024 Have you felt GUILTY about your drinking? 0 05/13/2024 Have you had a drink first t olivia in the morning ([employer]) to steady your nerves or to get rid of a hangover? 0 05/13/2024 CAGE Questionnaire Score 0 025 Utilities Answer Date Recorded In the past 12 months has th e electric, gas, oil, or water company threatened to shut off services in your home? No 05/13/2024 Sex and Gender Information Value Date Recorded Sex Assigned at Not on file Legal Sex Male 8:39 PM EDT Gender Identity Not on file Sexual Orientation Not on file Last Filed Vital Signs Vital Sign Reading Time Taken Comments Blood Pressure 104/74 06/01/2024 11:03 AM EDT Pulse 102 06/01/2024 11:03 AM EDT Temperature 36.3 C (97.4 F) 06/01/2024 11:03 AM EDT Respiratory Rate 18 06/01/2024 11:03 AM EDT Oxygen Saturation 97% 06/01/2024 11:03 AM EDT Inhaled Oxygen Concentration - - Weight 107 kg (235 lb 10.8 oz) 05/13/2024 4:03 P M EDT Height 182.9 cm (6') 05/13/2024 4:03 PM EDT Body Mass Index 31.96 05/13/2024 4:03 PM EDT Plan of Treatment Upcoming Encounters Date Type Department Care Team (Late st Contact Info) Description 09/02/2024 10:40 AM EDT Office Visit [facility] [facility] [address] [place] [address] Jakub Malave MD [address] [place] [address] Health Maintenance Due Date Last Done Comments [facility]-Bone Density Scan 1965 [facility]-Depression Screening 1965 [facility]-/Child/Adol SDOH Screenings 1965 [facility]-Hepatitis A Vaccines (1 of 2 - Risk 2-dose series) 02/23/1984 [facility]-Hepatitis B Vaccines (1 of 3 - 19+ 3-dose series) 02/23/1984 [facility]-Pneumococcal Vaccine: 50 + Years (1 of 2 - PCV) 02/23/1984 CT Colonography 2010 Colonoscopy 2010 FIT-DNA 2010 FIT 2010 FOBT 2010 Sigmoidoscopy 2010 [facility]-Colorectal Cancer Screening 2010 [facility]-Zoster Vaccines (1 of 2) 2015 [id number] Vaccine (2 - season) 2023 07/22/2020 [facility]-Influenza Vaccine (Seaso n Ended) 2024 [facility]- SDOH Screenings 11/13/2024 [facility]-Adult SDOH Screenings 11/13/2024 05/13/2024 [facility]-Lung Cancer Screening 12/08/2024 12/09/2023 [facility]-DTaP,Tdap,and Td Vaccine s (3 - Td or Tdap) 05/13/2034 05/13/2024, 01/22/2023 [facility]-HIV Screening Completed 12/08/2023 [facility]-Hepatitis C Screening Completed 12/08/2023 [facility]-Obesity Intervention Completed 025, 12/08/2023 HPV Vaccines Aged Out No longer eligi ble based on patient's age to complete this topic [facility]-HIB Vaccines Aged Out No longer e ligible based on patient's age to complete this topic [facility]-IPV Vaccines Aged Out No longer e ligible based on patient's age to complete this topic [facility]-Rotavirus Vaccines Aged Out No lo nger eligible based on patient's age to complete this topic Medical Devices Implanted Type Area Blade Sharpener Device Identifier Shelf Expiration Date Model / Serial / Lot Nail 1.5 Intertan 11.5mm X 44cm 130d Left - S. - [id number] Implanted:Qty: 1 on 05/14/2024 by Jai Joyce MD at [facility] Left: Femur [employer]-[id number] 08/06/2032 [id number] / . / [id number] Lag/Comp Screw Kit 100/95 - S. - [id number] Implanted:Qty: 1 on 05/14/2024 by Jai Joyce MD at [facility] Left: Femur [employer]-[id number] 07/29/2033 [id number] / . / [id number] Screw Trigen 5.0mm For Metanail 52.5mm - S. - [id number] Implanted:Qty: 1 on 05/14/2024 by Jai Joyce MD at [facility] Left: Femur [employer]-[id number] 09/20/2033 [id number] / . / [id number] Screw Trigen 5.0mm Internal Capture 75mm - S. - [id number] Implanted:Qty: 1 on 05/14/2024 by Jai Joyce MD at [facility] Left: Femur [employer]-[id number] 08/09/2033 [id number] / [id number] Procedures Procedure Name Priority Date/Time Associated Diagnosis Comments PHOSPHORUS, PLASMA Routine 05/31/2024 9:48 AM EDT BASIC METABOLIC PANEL, PLASMA Routine 05/31/2024 9:48 AM EDT EXTRA TUBE LAVENDER TOP Routine 05/29/2024 3:21 AM EDT EXTRA TUBES Routine 05/29/2024 3:21 AM EDT PHOSPHORUS, PLASMA Routine 05/29/2024 3:21 AM EDT BASIC METABOLIC PANEL, PLASMA Routine 05/29/2024 3:21 AM EDT RENAL FUNCTION PANEL, PLASMA Pending Discharge 05/27/2024 3:03 PM EDT CBC W/O DIFFERENTIAL Routine 05/27/2024 4:51 AM EDT RENAL FUNCTION PANEL, PLASMA Routine 05/27/2024 4:51 AM EDT CBC W/O DIFFERENTIAL Routine 05/26/2024 5:47 AM EDT RENAL FUNCTION PANEL, PLASMA Routine 05/26/2024 5:47 AM EDT CBC W/O DIFFERENTIAL Routine 05/25/2024 1:25 AM EDT RENAL FUNCTION PANEL, PLASMA Routine 05/25/2024 1:25 AM EDT OXYGEN THERAPY Routine 05/24/2024 8:00 PM EDT POTASSIUM, PLASMA Routine 05/24/2024 10:21 AM EDT OXYGEN THERAPY Routine 05/24/2024 8:00 AM EDT MAGNESIUM, PLASMA Routine 05/24/2024 1:17 AM EDT BASIC METABOLIC PANEL, PLASMA Routine 05/24/2024 1:17 AM EDT CBC W/O DIFFERENTIAL Routine 05/24/2024 1:16 AM EDT OXYGEN THERAPY Routine 05/23/2024 8:00 PM EDT OXYGEN THERAPY Routine 05/23/2024 8:00 AM EDT BASIC METABOLIC PANEL, PLASMA Routine 05/23/2024 4:01 AM EDT CBC W/O DIFFERENTIAL Routine 05/23/2024 4:01 AM EDT OXYGEN THERAPY Routine 05/22/2024 8:00 PM EDT OXYGEN THERAPY Routine 05/22/2024 8:00 AM EDT BASIC METABOLIC PANEL, PLASMA Routine 05/22/2024 3:41 AM EDT CBC W/O DIFFERENTIAL Routine 05/22/2024 3:41 AM EDT OXYGEN THERAPY Routine 05/21/2024 8:00 PM EDT OXYGEN THERAPY Routine 05/21/2024 8:00 AM EDT BASIC METABOLIC PANEL, PLASMA Routine 05/21/2024 5:21 AM EDT CBC W/O DIFFERENTIAL Routine 05/21/2024 5:21 AM EDT OXYGEN THERAPY Routine 05/20/2024 8:00 PM EDT OXYGEN THERAPY Routine 05/20/2024 8:00 AM EDT BASIC METABOLIC PANEL, PLASMA Routine 05/20/2024 5:20 AM EDT CBC W/O DIFFERENTIAL Routine 05/20/2024 5:20 AM EDT OXYGEN THERAPY Routine 05/19/2024 8:00 PM EDT OXYGEN THERAPY Routine 05/19/2024 8:00 AM EDT BASIC METABOLIC PANEL, PLASMA Routine 05/19/2024 2:47 AM EDT CBC W/O DIFFERENTIAL Routine 05/19/2024 2:47 AM EDT OXYGEN THERAPY Routine 05/18/2024 8:00 PM EDT OXYGEN THERAPY Routine 05/18/2024 8:00 AM EDT BASIC METABOLIC PANEL, PLASMA Routine 05/18/2024 4:52 AM EDT CBC W/O DIFFERENTIAL Routine 05/18/2024 4:52 AM EDT OXYGEN THERAPY Routine 05/17/2024 8:00 PM EDT PHOSPHORUS, URINE, RANDOM Routine 05/17/2024 3:43 PM EDT Other closed fracture of left femur, unspecified portion of femur, initial encounter (CMS/HCC) ETOH abuse Age-related osteoporosis with current pathological fracture, initial encounter Gastroesophageal reflux disease, unspecified whether esophagitis present Alcohol use disorder, severe, dependence (CMS/HCC) Tobacco use disorder, severe, dependence Hypomagnesemia Chronic HFrEF (heart failure with reduced ejection fraction) (CMS/HCC) Chronic bronchitis, unspecified chronic bronchitis type (CMS/HCC) Secondary hyperparathyroidism (CMS/HCC) Vitamin D deficiency CREATININE, RANDOM URINE Routine 05/17/2024 3:43 PM EDT Other closed fracture of left femur, unspecified portion of femur, initial encounter ([facility]) ETOH abuse Age-related osteoporosis with current pathological fracture, initial encounter Gastroesophageal reflux disease, unspecified whether esophagitis present Alcohol use disorder, severe, dependence (CMS/HCC) Tobacco use disorder, severe, dependence Hypomagnesemia Chronic HFrEF (heart failure with reduced ejection fraction) (CMS/HCC) Chronic bronchitis, unspecified chronic bronchitis type (CMS/HCC) Secondary hyperparathyroidism (CMS/HCC) Vitamin D deficiency CALCIUM, RANDOM URINE Routine 05/17/2024 3:43 PM EDT Other closed fracture of left femur, unspecified portion of femur, initial encounter (CMS/HCC) ETOH abuse Age-related osteoporosis with current pathological fracture, initial encounter Gastroesophageal reflux disease, unspecified whether esophagitis present Alcohol use disorder, severe, dependence (CMS/HCC) Tobacco use disorder, severe, dependence Hypomagnesemia Chronic HFrEF (heart failure with reduced ejection fraction) (CMS/HCC) Chronic bronchitis, unspecified chronic bronchitis type (CMS/HCC) Secondary hyperparathyroidism (CMS/HCC) Vitamin D deficiency XR CHEST 1 VIEW Routine 05/17/2024 11:56 AM EDT OXYGEN THERAPY Routine 05/17/2024 8:00 AM EDT CBC W/O DIFFERENTIAL Routine 05/17/2024 5:20 AM EDT BASIC METABOLIC PANEL, PLASMA Routine 05/17/2024 5:20 AM EDT OXYGEN THERAPY Routine 05/16/2024 8:00 PM EDT INSERT PERIPHERAL IV STAT 05/16/2024 10:57 AM EDT CBC W/O DIFFERENTIAL Routine 05/16/2024 10:51 AM EDT BASIC METABOLIC PANEL, PLASMA Routine 05/16/2024 10:51 AM EDT OXYGEN THERAPY Routine 05/16/2024 8:00 AM EDT OXYGEN THERAPY Routine 05/15/2024 8:00 PM EDT OXYGEN THERAPY Routine 05/15/2024 8:00 AM EDT PHOSPHORUS, PLASMA Routine 05/15/2024 5:44 AM EDT MAGNESIUM, PLASMA Routine 05/15/2024 5:44 AM EDT COMPREHENSIVE METABOLIC PANEL, PLASMA Routine 05/15/2024 5:44 AM EDT CBC W/O DIFFERENTIAL Routine 05/15/2024 5:44 AM EDT OXYGEN THERAPY Routine 05/14/2024 8:00 PM EDT BASIC METABOLIC PANEL, PLASMA Routine 05/14/2024 3:34 PM EDT OXYGEN THERAPY Routine 05/14/2024 1:09 PM EDT OXYGEN THERAPY Routine 05/14/2024 1:09 PM EDT OXYGEN THERAPY Routine 05/14/2024 1:09 PM EDT XR FEMUR LEFT 2+ VIEWS STAT 05/14/2024 10:55 AM EDT FL LESS THAN 1 HOUR (NON-REPORTABLE) Routine 05/14/2024 9:54 AM EDT ANESTHESIA ULTRASOUND GUIDED Routine 05/14/2024 8:10 AM EDT PB ANESTHESIA NON-TIMED PROCEDURE PLACEHOLDER Routine 05/14/2024 8:02 AM EDT PB ANESTHESIA PLACEHOLDER Routine 05/14/2024 7:48 AM EDT [place] AN ELECTIVE ENDOTRACHEAL AIRWAY Routine 05/14/2024 7:48 AM EDT INSERTION, INTRAMEDULLARY MICHELL, FEMUR 05/14/2024 7:20 AM EDT Other closed fracture of left femur, unspecified portion of femur, initial encounter ([facility]) PB POINT OF CARE IMAGING PLACEHOLDER Routine 05/14/2024 6:59 AM EDT POCT GLUCOSE METER UNSOLICITED RESULTS Routine 05/14/2024 6:28 AM EDT POTASSIUM, PLASMA Routine 05/14/2024 3:52 AM EDT POC ULTRASOUND 05/14/2024 PHOSPHORUS, PLASMA Routine 05/13/2024 11:17 PM EDT MAGNESIUM, PLASMA Routine 05/13/2024 11:17 PM EDT PROTHROMBIN TIME(PT) / INR Routine 05/13/2024 11:17 PM EDT CBC WITH AUTO DIFFERENTIAL Routine 05/13/2024 11:17 PM EDT COMPREHENSIVE METABOLIC PANEL, PLASMA Routine 05/13/2024 11:17 PM EDT ECG ADULT STAT 05/13/2024 11:08 PM EDT ECHO, ADULT TRANSTHORACIC COMPLETE W/ CONTRAST STAT 05/13/2024 8:15 AM EDT FREE T4, PLASMA Routine 05/13/2024 6:45 AM EDT IRON & TOTAL IRON BINDING CAPACITY, PLASMA (INCLUDES TRANSFERRIN) Routine 05/13/2024 6:45 AM EDT N-TERMINAL PROBNP, PLASMA Routine 05/13/2024 6:45 AM EDT TSH REFLEX FT4 Routine 05/13/2024 6:45 AM EDT METHICILLIN RESISTANT STAPHYLOCOCCUS AUREUS (MRSA) BY PCR Routine 05/13/2024 5:10 AM EDT PROTEIN ELECTROPHORESIS, PATHOLOGIST INTERPRETATION Routine 05/13/2024 4:10 AM EDT TOTAL PROTEIN, SERUM Routine 05/13/2024 4:10 AM EDT PROTEIN ELECTROPHORESIS, SERUM Routine 05/13/2024 4:10 AM EDT IONIZED CALCIUM, SERUM Routine 05/13/2024 4:10 AM EDT PTH INTACT TOTAL Routine 05/13/2024 4:10 AM EDT COMPREHENSIVE METABOLIC PANEL, PLASMA Routine 05/13/2024 4:10 AM EDT BONE SPECIFIC ALKALINE PHOSPHATASE Routine 05/13/2024 4:10 AM EDT PROTEIN ELECTROPHORESIS, SERUM Routine 05/13/2024 4:10 AM EDT PTH PANEL 1 Routine 05/13/2024 4:10 AM EDT VITAMIN D 25 HYDROXY Routine 05/13/2024 4:10 AM EDT TROPONIN T, HIGH SENSITIVITY, 2 HOUR, PLASMA Timed 05/13/2024 4:10 AM EDT XR HIP LEFT STRESS VIEW STAT 05/13/2024 4:04 AM EDT XR CHEST 1 VIEW STAT 05/13/2024 4:04 AM EDT ANTI XA LEVEL UNFRACTIONATED HEPARIN STAT 05/13/2024 3:17 AM EDT FREE T4, PLASMA Routine 05/13/2024 2:09 AM EDT TSH REFLEX FT4 Add-On 05/13/2024 2:09 AM EDT MAGNESIUM, PLASMA Add-On 05/13/2024 2:09 AM EDT PHOSPHORUS, PLASMA Add-On 05/13/2024 2:09 AM EDT TROPONIN T, HIGH SENSITIVITY, 0 HOUR, PLASMA, REFLEX TO 2 HOUR STAT 05/13/2024 2:09 AM EDT XR TIBIA FIBULA LEFT 2+ VIEWS STAT 05/13/2024 1:36 AM EDT XR KNEE LEFT 3 VIEWS STAT 05/13/2024 1:36 AM EDT XR FEMUR LEFT 2+ VIEWS STAT 05/13/2024 1:36 AM EDT XR HIP LEFT 2 OR 3 VIEWS STAT 05/13/2024 1:36 AM EDT ETHYL ALCOHOL PLASMA STAT 05/13/2024 1:24 AM EDT TYPE AND SCREEN STAT 05/13/2024 1:24 AM EDT LACTATE, VENOUS STAT 05/13/2024 1:24 AM EDT COMPREHENSIVE METABOLIC PANEL, PLASMA STAT 05/13/2024 1:24 AM EDT APTT STAT 05/13/2024 1:24 AM EDT PROTHROMBIN TIME(PT) / INR STAT 05/13/2024 1:24 AM EDT CBC WITH AUTO DIFFERENTIAL STAT 05/13/2024 1:24 AM EDT ECG ADULT STAT 05/13/2024 12:[address] OUTSIDE IMAGES 05/12/2024 9:[address] OUTSIDE IMAGES 05/12/2024 9:[address] OUTSIDE IMAGES 05/12/2024 9:[address] OUTSIDE IMAGES 05/12/2024 9:[address] OUTSIDE IMAGES 05/12/2024 9:[address] OUTSIDE IMAGES 05/12/2024 9:[address] OUTSIDE IMAGES 05/12/2024 9:[address] OUTSIDE IMAGES 05/12/2024 9:[address] NEURO OUTSIDE IMAGES 05/12/2024 9:18 PM EDT XR OUTSIDE IMAGES 05/12/2024 8:50 PM EDT XR MSK OUTSIDE IMAGES 05/12/2024 8:50 PM EDT XR OUTSIDE IMAGES 05/12/2024 8:47 PM EDT XR OUTSIDE IMAGES 05/12/2024 8:47 PM EDT XR OUTSIDE IMAGES 05/12/2024 8:44 PM EDT XR MSK OUTSIDE IMAGES 05/12/2024 8:[address] ANGIO CHEST STAT 12/09/2023 12:43 AM EDT HEPATITIS C ANTIBODY - ED W/REFLEX TO HCV QUANT PCR STAT 12/08/2023 10:35 PM EDT ED HIV 1/2 ANTIBODY/ANTIGEN SCREEN WITH REFLEX TO HIV I/II DIFFERENTIATION STAT 12/08/2023 10:35 PM EDT from Last 3 Months or Most Recently Relevant to Health Maintenance Results * (ABNORMAL) Phosphorus (05/31/2024 9:48 AM EDT) Only the most recent of5 resultswithin the time period is included. Phosphorus, Plasma 6.7(H) 2.5 - 4.5 mg/dL 05/31/2024 10:[address] [facility] Blood Venous blood specimen / Unknown Venipuncture / Unknown 05/31/2024 9:48 AM EDT 05/31/2024 10:09 AM EDT us Vish Lamas MD LAB BLOOD ORDERABLES Final Resul t [facility] [address] [place] [address] * (ABNORMAL) Basic metabolic panel (05/31/2024 9:48 AM EDT) Only the most recent of12 resultswithin the time period is included. Glucose, Plasma 99 74 - 99 mg/dL 05/31/2024 10:[address] [facility] BUN, Plasma 41(H) 7 - 21 mg/dL 05/31/2024 10:[address] [facility] Creatinine, Plasma 1.59(H) 0.70 - 1.20 mg/dL 05/31/2024 10:[address] [facility] BUN/Creatinine Ratio 26 05/31/2024 10:[address] [facility] Sodium, Plasma 136 136 - 145 mmol/L 05/31/2024 10:[address] [facility] Potassium, Plasma 4.5 3.6 - 4.9 mmol/L 05/31/2024 10:[address] [facility] Chloride, Plasma 98 97 - 107 mmol/L 05/31/2024 10:[address] [facility] CO2, Plasma 27 22 - 29 mmol/L 05/31/2024 10:[address] [facility] Anion Gap 11 6 - 16 mmol/L 05/31/2024 10:[address] [facility] Total Calcium, Plasma 9.9 8.9 - 10.2 mg/dL 05/31/2024 10:[address] [facility] eGFRcr 49.7 mL/min/1.7 3m*2 05/31/2024 10:[address] [facility] Comment:Reported eGFRcr in m L/min/1.73m2 is based the CKD-EPI 2020 equation that does not use a race coefficient. Blood Venous blood specimen / Unknown Venipuncture / Unknown 05/31/2024 9:48 AM EDT 05/31/2024 10:09 AM EDT Vish Lamas MD LAB BLOOD ORDERABLES Final Resul t Performing Organization Address City/[facility]/ZIP Co de Phone Number [facility] [address] [place] [address] * Lavender Top (05/29/2024 3:21 AM EDT) Extra Hold for add-ons 05/29/2024 6:[address] [facility] Comment:Auto resulted. Blood Venous blood specimen / Unknown 05/29/2024 3:21 AM EDT 05/29/2024 3:26 AM EDT Vish Lamas MD LAB BLOOD ORDERABLES Final Resul t Performing Organization Address City/[facility] Co de Phone Number [facility] [address] [place] [address] * (ABNORMAL) Renal function panel (05/27/2024 3:03 PM EDT) Only the most recent of4 resultswithin the time period is included. Glucose, Plasma 101(H) 74 - 99 mg/dL 05/27/2024 3:[address] [facility] BUN, Plasma 54(H) 7 - 21 mg/dL 05/27/2024 3:[address] [facility] Creatinine, Plasma 1.92(H) 0.70 - 1.20 mg/dL 05/27/2024 3:[address] [facility] BUN/Creatinine Ratio 28 05/27/2024 3:[address] [facility] Sodium, Plasma 137 136 - 145 mmol/L 05/27/2024 3:[address] [facility] Potassium, Plasma 4.8 3.6 - 4.9 mmol/L 05/27/2024 3:[address] [facility] Chloride, Plasma 100 97 - 107 mmol/L 05/27/2024 3:[address] [facility] CO2, Plasma 25 22 - 29 mmol/L 05/27/2024 3:[address] [facility] Anion Gap 12 6 - 16 mmol/L 05/27/2024 3:[address] [facility] Total Calcium, Plasma 10.1 8.9 - 10.2 mg/dL 05/27/2024 3:[address] [facility] Phosphorus, Plasma 6.6(H) 2.5 - 4.5 mg/dL 05/27/2024 3:[address] [facility] Albumin, Plasma 3.2(L) 3.5 - 5.2 g/dL 05/27/2024 3:[address] [facility] eGFRcr 39.6 mL/min/1.7 3m*2 05/27/2024 3:[address] [facility] Comment:Reported eGFRcr in m L/min/1.73m2 is based the CKD-EPI 2020 equation that does not use a race coefficient. Blood Venous blood specimen / Unknown Venipuncture / Unknown 05/27/2024 3:03 PM EDT 05/27/2024 3:09 PM EDT us Vish Lamas MD LAB BLOOD ORDERABLES Final Resul t [facility] [address] [place] [address] * (ABNORMAL) CBC W/O Differential (05/27/2024 4:51 AM EDT) Only the most recent of13 resultswithin the time period is included. WBC Count 6.30 3.70 - 10.30 10*3/uL LAB HEMATOLOGY METHOD 05/27/2024 5:[address] [facility] RBC Count 2.59(L) 4.60 - 6.10 10*6/uL LAB HEMATOLOGY METHOD 05/27/2024 5:[address] [facility] HGB 8.7(L) 13.7 - 17.5 g/dL LAB HEMATOLOGY METHOD 05/27/2024 5:[address] [facility] HCT 27.6(L) 40.0 - 51.0 % LAB HEMATOLOGY METHOD 05/27/2024 5:[address] [facility] Platelet Count 629(H) 155 - 369 10*3/uL LAB HEMATOLOGY METHOD 05/27/2024 5:[address] [facility] MCV 107(H) 79 - 98 fL LAB HEMATOLOGY METHOD 05/27/2024 5:[address] [facility] MCH 33.6(H) 26.0 - 32.0 pg LAB HEMATOLOGY METHOD 05/27/2024 5:[address] [facility] MCHC 31.5 30.7 - 35.5 g/dL LAB HEMATOLOGY METHOD 05/27/2024 5:[address] [facility] RDW 17.7(H) 11.5 - 14.5 % LAB HEMATOLOGY METHOD 05/27/2024 5:[address] [facility] MPV 9.4 8.8 - 12.5 fL LAB HEMATOLOGY METHOD 05/27/2024 5:[address] [facility] nRBC 0.0 <=0.0 per 100 WBCs LAB HEMATOLOGY METHOD 05/27/2024 5:[address] [facility] Blood Venous blood specimen / Unknown Venipuncture / Unknown 05/27/2024 4:51 AM EDT 05/27/2024 5:19 AM EDT us Vish Lamas MD LAB BLOOD ORDERABLES Final Resul t [facility] [address] [place] [address] * Potassium (05/24/2024 10:21 AM EDT) Only the most recent of2 resultswithin the time period is included. Potassium, Plasma 4.7 3.6 - 4.9 mmol/L 05/24/2024 10:[address] [facility] Blood Venous blood specimen / Unknown Venipuncture / Unknown 05/24/2024 10:21 AM EDT 05/24/2024 10:29 AM EDT [facility] LAB BLOOD ORDERABLES Fin al Result Performing Organization Address [facility] Co de Phone Number [facility] [address] [place] [address] * Magnesium (05/24/2024 1:17 AM EDT) Only the most recent of4 resultswithin the time period is included. Magnesium, Plasma 2.3 1.9 - 2.4 mg/dL 05/24/2024 2:[address] [facility] Blood Venous blood specimen / Unknown Venipuncture / Unknown 05/24/2024 1:17 AM EDT 05/24/2024 1:31 AM EDT [facility] LAB BLOOD ORDERABLES Fin al Result Performing Organization Address [facility] de Phone Number [facility] [address] [place] [address] * Phosphorus, Random, Urine (05/17/2024 3:43 PM EDT) Phosphorus, Urine 4.8 mg/dL 05/17/2024 4:[address] [facility] Urine Urine specimen obtained by clean catch procedure / Unknown Non-blood Collection / Unknown 05/17/2024 3:43 PM EDT 05/17/2024 3:51 PM EDT Pamella Rice APRN LAB URINE ORDERABLES Final Result Performing Organization Address City/[facility] Co de Phone Number [facility] [address] [place] [address] * Creatinine, Random, Urine (05/17/2024 3:43 PM EDT) Creatinine, Urine 89 mg/dL 05/17/2024 4:[address] [facility] Urine Urine specimen obtained by clean catch procedure / Unknown Non-blood Collection / Unknown 05/17/2024 3:43 PM EDT 05/17/2024 3:51 PM EDT us Miae A Mlack [employer] LAB URINE ORDERABLES Final Result [facility] [address] [place] [address] * Calcium, Random, Urine (05/17/2024 3:43 PM EDT) Calcium, Urine <0.8 mg/dL 05/17/2024 4:[address] [facility] Urine Urine specimen obtained by clean catch procedure / Unknown Non-blood Collection / Unknown 05/17/2024 3:43 PM EDT 05/17/2024 3:51 PM EDT us Miae A Mlack [employer] LAB URINE ORDERABLES Final Result Performing Organization Address City/[facility]/ZIP Co de Phone Number [facility] [address] [place] [address] * XR Chest 1 View (05/17/2024 11:56 AM EDT) Only the most recent of2 resultswithin the time period is included. Anatomical Region Laterality Modality Chest Digital Radiogra phy Impressions 05/17/2024 12:09 PM EDT No discrete airspace disease to suggest infection or aspiration. CRITICAL RESULT: No. COMMUNICATION: Per this written report Drafted by Sravan Castro MD on 05/17/2024 12:08 PM Final report signed by Sravan Castro MD on 05/17/2024 12:09 PM Narrative 05/17/2024 12:09 PM EDT CLINICAL INDICATION: new hypoxia, rule out developing PNA vs pulm edema TECHNIQUE: XR CHEST 1 VIEW COMPARISON: May 13, 2024 FINDINGS: No consolidation. No pleural effusion. Mediastinal and cardiac contours are stable. Calcified lymph nodes consistent with prior granulomatous disease. Procedure Note Sravan Castro MD - 05/17/2024 CLINICAL INDICATION: new hypoxia, rule out developing PNA vs pulm edema TECHNIQUE: XR CHEST 1 VIEW COMPARISON: May 13, 2024 FINDINGS: No consolidation. No pleural effusion. Mediastinal and cardiac contoursare stable. Calcified lymph nodes consistent with prior granulomatousdisease. IMPRESSION: No discrete airspace disease to suggest infection or aspiration. CRITICAL RESULT: No. COMMUNICATION: Per this written report Drafted by Sravan Castro MD on 05/17/2024 12:08 PM Final report signed by Sravan Castro MD on 05/17/2024 12:09 PM us Meghana Gann DO IMG XR PROCEDURES Final Result * PERIPHERAL IV (SMARTFORM LINK) (05/16/2024 10:57 AM EDT) Narrative Elizabeth Vazquez RN - 05/16/2024 10:57 AM EDT Elizabeth Vazquez RN 05/16/2024 10:57 AM Insert peripheral IV Performed by: Elizabeth Vazquez RN Authorized by: Meghana Gann DO Hand hygiene: Hand hygiene performed prior to insertion Inserted using aseptic techniques: Yes Preparation: Skin prepped with chg Orientation: Right and upper Location: Arm Catheter placed: Peripheral IV Catheter size: 20g/2.00in Line Technique: Ultrasound Guidance Number of attempts: 1 IV flushes: Without difficulty and positive blood return noted and IV luer locked Patient tolerance: Patient tolerated the procedure well, age appropriate response and there were no complications IV site covered with: Transparent semipermeable dressing Education provided to: Patient Comments: I obtained 5 mL of blood with USG PIV insertion and provided to bedside RN for labs. us Meghana Gann DO IV THERAPY ORDERABLES Final Res ult * (ABNORMAL) Comprehensive Metabolic Panel, Plasma (05/15/2024 5:44 AM EDT) Only the most recent of4 resultswithin the time period is included. Glucose, Plasma 108(H) 74 - 99 mg/dL 05/15/2024 7:[address] [facility] BUN, Plasma 26(H) 7 - 21 mg/dL 05/15/2024 7:[address] [facility] Creatinine, Plasma 1.36(H) 0.70 - 1.20 mg/dL 05/15/2024 7:[address] [facility] BUN/Creatinine Ratio 19 05/15/2024 7:[address] [facility] Sodium, Plasma 131(L) 136 - 145 mmol/L 05/15/2024 7:[address] [facility] Potassium, Plasma 5.3(H) 3.6 - 4.9 mmol/L 05/15/2024 7:[address] [facility] Chloride, Plasma 98 97 - 107 mmol/L 05/15/2024 7:[address] [facility] CO2, Plasma 23 22 - 29 mmol/L 05/15/2024 7:[address] [facility] Anion Gap 10 6 - 16 mmol/L 05/15/2024 7:[address] [facility] Total Calcium, Plasma 8.2(L) 8.9 - 10.2 mg/dL 05/15/2024 7:[address] [facility] Total Protein 6.0(L) 6.3 - 7.9 g/dL 05/15/2024 7:[address] [facility] Albumin, Plasma 2.9(L) 3.5 - 5.2 g/dL 05/15/2024 7:[address] [facility] AST, Plasma 97(H) 10 - 50 U/L 05/15/2024 7:[address] [facility] Comment:Hemolyzed, result ma y be falsely increased. ALT, Plasma 29 10 - 50 U/L 05/15/2024 7:[address] [facility] Alkaline Phosphatase, Plasma 419(H) 40 - 115 U/L 05/15/2024 7:[address] [facility] Total Bilirubin, Plasma 0.4 0.2 - 1.1 mg/dL 05/15/2024 7:[address] [facility] eGFRcr 59.9 mL/min/1.7 3m*2 05/15/2024 7:[address] [facility] Comment:Reported eGFRcr in m L/min/1.73m2 is based the CKD-EPI 2020 equation that does not use a race coefficient. Blood Venous blood specimen / Unknown Venipuncture / Unknown 05/15/2024 5:44 AM EDT 05/15/2024 5:52 AM EDT us Meghana Gann DO LAB BLOOD ORDERABLES Final Resu lt [facility] [address] [place] [address] * XR Femur Left 2+ Views (05/14/2024 10:55 AM EDT) Only the most recent of2 resultswithin the time period is included. Anatomical Region Laterality Modality Lower Extremities, Femur Left Digital Radiography Impressions 05/14/2024 11:50 AM EDT Expected postoperative changes of cephalomedullary fixation of femoral neck fracture. CRITICAL RESULT: No. COMMUNICATION: Per this written report. Drafted by Kalyan Edwards MD on 05/14/2024 11:48 AM Final report signed by Kalyan Edwards MD on 05/14/2024 11:50 AM Narrative 05/14/2024 11:50 AM EDT CLINICAL INDICATION: post op TECHNIQUE: XR FEMUR LEFT 2+ VIEWS COMPARISON: May 13, 2024. FINDINGS: 2 views of the left femur show cephalomedullary fixation of intertrochanteric fracture of the femoral neck. Hip and knee joint space and alignment are normal. Procedure Note Kalyan Edwards MD - 05/14/2024 CLINICAL INDICATION: post op TECHNIQUE: XR FEMUR LEFT 2+ VIEWS COMPARISON: May 13, 2024. FINDINGS: 2 views of the left femur show cephalomedullary fixation ofintertrochanteric fracture of the femoral neck. Hip and knee joint spaceand alignment are normal. IMPRESSION: Expected postoperative changes of cephalomedullary fixation of femoralneck fracture. CRITICAL RESULT: No. COMMUNICATION: Per this written report. Drafted by Kalyan Edwards MD on 05/14/2024 11:48 AM Final report signed by Kalyan Edwards MD on 05/14/2024 11:50 AM us Meghana Gann DO IMG XR PROCEDURES Final Result * FL Less than 1 Hour Intraoperative (05/14/2024 9:54 AM EDT) Narrative IMAGING - 05/14/2024 9:54 AM EDT Images were obtained for surgical purposes. See Jai Joyce's surgical note in the patient's chart for the findings. us Jai Joyce MD IMG FLUOROSCOPY PROCEDURES Fin al Result IMAGING * ANESTHESIA ULTRASOUND GUIDED (05/14/2024 8:10 AM EDT) Narrative Cholo Gasca CRNA, DNP - 05/14/2024 8:10 AM EDT Cholo Gasca CRNA, DNP 05/14/2024 8:41 AM Peripheral IV Date/Time: 05/14/2024 8:10 AM Inserted by: Cholo Gasca CRNA, DNP Placement Needle size: 20 G Location: hand Local anesthetic: none Site prep: alcohol Technique: ultrasound guided Attempts: 2 Nathanael Salas MD ANESTHESIA ORDERABLES Final Result * PB ANESTHESIA NON-TIMED PROCEDURE PLACEHOLDER (05/14/2024 8:02 AM EDT) Narrative Cholo Gasca CRNA, DNP - 05/14/2024 8:02 AM EDT Cholo Gasca CRNA, DNP 05/14/2024 8:41 AM Arterial Line: Date/Time: 05/14/2024 8:02 AM An arterial line was placed. Procedure performed using ultrasound guidance in the OR for the following indication(s): continuous blood pressure monitoring. A 20 gauge (size), 1 and 3/4 inch (length), Arrow (type) catheter was placed into the Left radial artery and secured by tape. Seldinger technique used Events: patient tolerated procedure well with no complications. Staffing Performed: DOCUMENT CONTROL SUPERVISOR Anesthesiologist: Nathanael Salas MD DOCUMENT CONTROL SUPERVISOR: Cholo Gasca CRNA, DNP Nathanael Salas MD ANESTHESIA ORDERABLES Final Result * [place] AN ELECTIVE ENDOTRACHEAL AIRWAY, PB ANESTHESIA PLACEHOLDER (05/14/2024 7:48 AM EDT) Cholo Gibbs CRNA, DNP - 05/14/2024 7:48 AM EDT Cholo Gasca CRNA, DNP 05/14/2024 8:40 AM Airway Date/Time: 05/14/2024 7:48 AM Reason: elective Airway not difficult General Information and Staff Patient location during procedure: OR Anesthesiologist: Nathanael Salas MD DOCUMENT CONTROL SUPERVISOR: Cholo Gasca CRNA, LEIGH Performed: DOCUMENT CONTROL SUPERVISOR Patient Condition Indications for airway management: anesthesia Patient position: sniffing Final Airway Details Final airway type: endotracheal airway Successful airway: ETT Cuffed: yes Successful intubation technique: direct laryngoscopy Adjuncts used in placement: intubating stylet Endotracheal tube insertion site: oral Blade: Liriano Blade size: #3 ETT size (mm): 8.0 Cormack-Lehane Classification: grade I - full view of glottis Placement verified by: chest auscultation and capnometry Cuff volume (mL): 6 Measured from: lips ETT to lips (cm): 23 Additional Comments Atraumatic. No change to dentition. us Nathanael Salas MD ANESTHESIA ORDERABLES Final Result * PB POINT OF CARE IMAGING PLACEHOLDER (05/14/2024 6:59 AM EDT) Narrative Parker Booker MD - 05/14/2024 6:59 AM EDT Parker Booker MD 05/14/2024 4:22 PM Peripheral Block Patient location during procedure: pre-op Start time: 05/14/2024 6:59 AM End time: 05/14/2024 7:10 AM Reason for block: post-op pain management Block is at surgeon's request Staffing Performed: Resident Anesthesiologist: Parker Booker MD Resident: Maurilio Chan MD Preanesthetic Checklist Completed: patient identified, IV checked, site marked, risks and benefits discussed, surgical consent, monitors and equipment checked, pre-op evaluation and timeout performed Peripheral Block Patient position: supine Prep: ChloraPrep Patient monitoring: continuous pulse ox, heart rate and power brake operator Block type: femoral (FI Block) Laterality: left Injection technique: single-shot Guidance: ultrasound guided Local infiltration: lidocaine Infiltration strength: 2 % Dose: 4 mL Ultrasound used for needle placement AND ultrasound image retained Needle Needle length: 5 cm Needle localization: anatomical landmarks and ultrasound guidance Medications Administered midazolam (Versed) injection - Intravenous 2 mg - 05/14/2024 6:59:00 AM Assessment Injection assessment: negative aspiration for heme, local visualized surrounding nerve on ultrasound and incremental injection Paresthesia pain: none Heart rate change: no Slow fractionated injection: yes Additional Notes Femoral artery and nerve visualized. Fascia Iliaca visualized superficial to the iliacus muscle. Sartorius muscle was identified medial. Once this was done, the probe was placed in a long axis view of the fascia iliaca. The needle was guided in an in-plane technique and the local anesthetic was noted to spread the iliacus muscle from the fascia directed superiorly. A total of 30cc ropivacaine was used. . Aspiration was negative for heme, blood, and CSF. No immediate complications noted. us Nathanael Salas MD ANESTHESIA ORDERABLES Final Result * POCT glucose meter (05/14/2024 6:28 AM EDT) POCT Glucose 84 74 - 99 mg/dL 05/14/2024 6:30 AM EDT [facility] Comment:Accuracy of a glucos e result obtained from a capillary whole blood specimen relies upon adequate, non-compromised capillary blood flow. If the capillary glucose result is not consistent with the patient's clinical signs and symptoms, glucose testing should be repeated with either an arterial or venous sample on the glucometer or sent to the main labortory for testing. Comment 05/14/2024 6:30 AM EDT [facility] Battery Assembler Plastic ID Rohan Mendez 05/15/19 25 6:30 AM EDT [facility] Device ID [id number] 05/14/2024 6:30 AM EDT [facility] Specimen Type POC Capillary 05/14/2024 6:30 AM EDT [facility] Blood Capillary blood specimen / Unknown 05/14/2024 6:28 AM EDT 05/14/2024 6:30 AM EDT us Meghana Gann DO LAB POINT OF CARE TE ST DOCKED DEVICE UNSOLICITED RESULTS Final Result [facility] [address] [place] [id number] * POC Imaging (05/14/2024) Anatomical Region Laterality Modality Pelvis Other 05/14/2024 us External Provider IMG POINT OF CARE ULTRASOUND F inal Result * PT/INR (05/13/2024 11:17 PM EDT) Only the most recent of2 resultswithin the time period is included. Prothrombin Time 14.3 12.0 - 14.3 sec LAB COAGULATION METHOD 05/14/2024 12:[address] [facility] INR 1.1 0.9 - 1.1 LAB COAGULATION METHOD 05/14/2024 12:[address] [facility] Blood Venous blood specimen / Unknown Venipuncture / Unknown 05/13/2024 11:17 PM EDT 05/13/2024 11:[address] [facility] - 05/14/2024 12:05 AM EDT OPTIMAL INR RANGES FOR PATIENT ON ORAL ANTICOAGULANT THERAPY Prevention of venous thromboembolism INR 2.0 to 3.0 In patients with heart disease: Atrial fibrillation INR 2.0 to 3.0 Valvular heart disease INR 2.0 to 3.0 Tissue heart valves INR 2.0 to 3.0 Mechanical prosthetic valves INR 2.5 to 3.5 Prevention of recurrent VA INR 2.5 to 3.5 Meghana Gann DO LAB BLOOD ORDERABLES Final Resu lt [facility] [address] [place] [address] * (ABNORMAL) CBC and Differential (05/13/2024 11:17 PM EDT) Only the most recent of2 resultswithin the time period is included. WBC Count 6.96 3.70 - 10.30 10*3/uL LAB HEMATOLOGY METHOD 05/13/2024 11:[address] [facility] RBC Count 2.93(L) 4.60 - 6.10 10*6/uL LAB HEMATOLOGY METHOD 05/13/2024 11:[address] [facility] HGB 10.6(L) 13.7 - 17.5 g/dL LAB HEMATOLOGY METHOD 05/13/2024 11:[address] [facility] HCT 32.1(L) 40.0 - 51.0 % LAB HEMATOLOGY METHOD 05/13/2024 11:[address] [facility] Platelet Count 160 155 - 369 10*3/uL LAB HEMATOLOGY METHOD 05/13/2024 11:[address] [facility] MCV 110(H) 79 - 98 fL LAB HEMATOLOGY METHOD 05/13/2024 11:[address] [facility] Comment:Results inconsistent with previous lab findings. MCH 36.2(H) 26.0 - 32.0 pg LAB HEMATOLOGY METHOD 05/13/2024 11:[address] [facility] MCHC 33.0 30.7 - 35.5 g/dL LAB HEMATOLOGY METHOD 05/13/2024 11:[address] [facility] RDW 17.6(H) 11.5 - 14.5 % LAB HEMATOLOGY METHOD 05/13/2024 11:[address] [facility] MPV 9.8 8.8 - 12.5 fL LAB HEMATOLOGY METHOD 05/13/2024 11:[address] [facility] [facility] nRBC 0.7(H) <=0.0 per 100 WBCs LAB HEMATOLOGY METHOD 05/13/2024 11:[address] [facility] Differential Type Automated LAB HEMATOLOGY METHOD 05/13/2024 11:[address] [facility] Neutrophils % 77 % LAB HEMATOLOGY METHOD 05/13/2024 11:[address] [facility] Lymphocytes % 14 % LAB HEMATOLOGY METHOD 05/13/2024 11:[address] [facility] Monocytes % 6 % LAB HEMATOLOGY METHOD 05/13/2024 11:[address] [facility] Eosinophils % 1 % LAB HEMATOLOGY METHOD 05/13/2024 11:[address] [facility] Basophils % 2 % LAB HEMATOLOGY METHOD 05/13/2024 11:[address] [facility] Immature Granulocytes % 0 % LAB HEMATOLOGY METHOD 05/13/2024 11:[address] [facility] Neutrophils Absolute 5.34 1.60 - 6.10 10*3/uL LAB HEMATOLOGY METHOD 05/13/2024 11:[address] [facility] Lymphocytes Absolute 0.95(L) 1.20 - 3.90 10*3/uL LAB HEMATOLOGY METHOD 05/13/2024 11:[address] [facility] Monocytes Absolute 0.44 0.30 - 0.90 10*3/uL LAB HEMATOLOGY METHOD 05/13/2024 11:[address] [facility] Eosinophils Absolute 0.07 0.00 - 0.50 10*3/uL LAB HEMATOLOGY METHOD 05/13/2024 11:[address] [facility] Basophils Absolute 0.14(H) 0.00 - 0.10 10*3/uL LAB HEMATOLOGY METHOD 05/13/2024 11:[address] [facility] Immature Granulocytes Absolute 0.02 0.00 - 0.06 10*3/uL LAB HEMATOLOGY METHOD 05/13/2024 11:[address] [facility] Blood Venous blood specimen / Unknown Venipuncture / Unknown 05/13/2024 11:17 PM EDT 05/13/2024 11:[address] [facility] - 05/13/2024 11:34 PM EDT Therapeutic decision making should be based on absolute values, rather than percentages. us Mobile A[employer] DO LAB BLOOD ORDERABLES Final Resu lt Performing Organization Address City/[facility] Co de Phone Number [facility] [address] [place] [address] * ECG Adult (05/13/2024 11:08 PM EDT) Only the most recent of2 resultswithin the time period is included. EKG DIAGNOSIS CLASS Abnormal MUSE ECG Ventricular Rate 130 BPM MUSE ECG Atrial Rate 130 BPM MUSE ECG [place] Interval 90 ms MUSE ECG QRSD Interval 148 ms MUSE ECG QT Interval 380 ms MUSE ECG QTC Interval 559 ms MUSE ECG P [place] 105 degrees MUSE ECG R [place] 104 degrees MUSE ECG T Wave [place] 31 degrees MUSE ECG Diagnosis Sinus tachycardia with short [place] MUSE ECG Diagnosis Right bundle branch block MUSE ECG Diagnosis MUSE ECG Diagnosis MUSE ECG Diagnosis Confirmed by Arnie Polanco ([id number]) on 05/14/2024 12:32:25 PM MUSE ECG 05/13/2024 11:0 8 PM EDT 05/14/2024 12:32 PM EDT us Meghana Fourie DO ECG ORDERABLES Final Result Performing Organization Address City/[facility]/ZIP Co de Phone Number MUSE ECG * ECHO, ADULT TRANSTHORACIC COMPLETE W/ CONTRAST (05/13/2024 8:15 AM EDT) Height 182.9 GUS ISCV Weight 106.1 GUS ISCV BSA 2.28 m2 GUS ISCV LVIDd 45 mm GUS ISCV IVSd 13 mm GUS ISCV LVPWd 11 mm GUS ISCV LV MASS(C)D 201 g GUS ISCV LV RWT 0.53 mm GUS ISCV LVIDs 36 mm GUS ISCV LA dimension 45 mm GUS ISCV LVOT diam 23 mm GUS ISCV LVOT AREA 4.2 cm2 GUS ISCV LAV(MOD-4ch) 84 mL GUS ISCV RA MOD 4Ch 148 mL GUS ISCV JHOAN 65 mL/m2 GUS ISCV RV base 63 mm GUS ISCV RV Mid 51 mm GUS ISCV RV Length 91 mm GUS ISCV LAV(MOD-bp) Indexed 34 mL/m2 GUS ISCV LAV(MOD-2ch) 73 mL GUS ISCV TAPSE 10 mm GUS ISCV RV s' Balwinder 7.3 cm/s GUS ISCV RV RICHELLE 43.3 cm2 GUS ISCV RV MARKIE 34.7 cm2 GUS ISCV RV FAC_phl 20 % GUS ISCV TR Vmax 298.0 cm/s GUS ISCV TR Max PG 36 mmHG GUS ISCV IVC Max Size 32 mm GUS ISCV IVC Min Size 19 mm GUS ISCV RVSP 51 mmHg GUS ISCV RAP systole 15 mmHg GUS ISCV MPA diam 30 mm GUS ISCV MPA area 7.1 cm2 GUS ISCV Ao Root Diam 38 mm GUS ISCV Asc Ao Diam 37 mm GUS ISCV LV EDV(MOD-4ch) 139 mL GUS ISCV LV ESV(MOD4ch) 75 mL GUS ISCV EF(MOD-sp4) 46 % GUS ISCV LV EDV(MOD-2ch) 92 mL GUS ISCV EDV(MOD-bp) 116 mL GUS ISCV LV ESV(MOD2ch) 48 mL GUS ISCV EF(MOD-sp2) 48 % GUS ISCV ESV(MOD-bp) 62 mL GUS ISCV EF(MOD-bp) 47 % GUS ISCV LVLs ap2 7.3 mm GUS ISCV MV E Vmax 75.3 cm/s GUS ISCV LV Lat e' Velocity 12.0 cm/s GUS ISCV LV Sept e' Balwinder 7.8 cm/s GUS ISCV Lat E/e' 6.3 GUS ISCV Sep E/e' 9.7 GUS ISCV Avg E/e' 8.0 GUS ISCV TR VC 5 mm GUS ISCV Anatomical Region Laterality Modality Echocardiography Narrative 05/13/2024 9:39 AM EDT Left Ventricle: The left ventricle is normal size. There is concentric remodeling. No left ventricular mass or thrombus is seen. The left ventricular systolic function is reduced. The LVEF is variable due to arrhythmia but is visually estimated at 25 - 40%. The diastolic function is abnormal. There is grade I (mild) diastolic dysfunction. There is global hypokinesis of the left ventricle. Right Ventricle: The right ventricle is moderately dilated. The right ventricular systolic function is moderately reduced. There is regional wall motion abnormalities. There is right ventricular apical akinesis. Right ventricular systolic pressure is moderately elevated (estimated >/= 51 mmHg). Aortic Valve: There is mild aortic valve regurgitation. Tricuspid Valve: There is moderate to severe tricuspid regurgitation. Pericardium: No pericardial effusion. Compared to the most recently available prior study, and allowing for differences in image quality and technique, there is no significant interval change noted. Left Ventricle The left ventricle is normal size. There is concentric remodeling. No left ventricular mass or thrombus is seen. The left ventricular systolic function is reduced. The LVEF is variable due to arrhythmia but is visually estimated at 25 - 40%. The diastolic function is abnormal. There is grade I (mild) diastolic dysfunction. There is global hypokinesis of the left ventricle. Right Ventricle The right ventricle is moderately dilated. The right ventricular systolic function is moderately reduced. There is regional wall motion abnormalities. There is right ventricular apical akinesis. Right ventricular systolic pressure is moderately elevated (50-70mmHg). The estimated right ventricular systolic pressure is 51 mmHg. Left Atrium The left atrial size is normal with an indexed volume of 16-34 mL/m2. The interatrial septum is intact with no evidence for an atrial septal defect. Right Atrium The right atrial volume index is severely increased (>46mL/m2). IVC/SVC Based on the IVC size and respiratory variation, the estimated right atrial pressure is 15mmHg. Mitral Valve The mitral valve leaflets are normal in appearance with no evidence of mitral valve prolapse. There is trace mitral regurgitation. There is no mitral stenosis. Tricuspid Valve The tricuspid valve is grossly normal in appearance. There is moderate to severe tricuspid regurgitation. There is systolic flow reversal of the hepatic veins consistent with significant tricuspid valve regurgitation. There is no tricuspid stenosis. Aortic Valve The aortic valve appears to be trileaflet. There is mild aortic valve regurgitation. There is no hemodynamically significant valvular aortic stenosis. Pulmonic Valve The pulmonic valve is normal in appearance. There is trace pulmonic regurgitation. There is no pulmonic stenosis. Pericardium No pericardial effusion. Great Vessels The aortic root is normal in size. The sinus of Valsalva (aortic root) diameter is 38 mm by leading edge to leading edge method. In the maximally visualized portion, the ascending aorta appears normal in size. The ascending aorta diameter is 37 mm. In the maximally visualized portion, the aortic arch appears normal in size. The main pulmonary artery is dilated. Study Details A complete transthoracic echocardiogram using two-dimensional (2D), m-mode, color and spectral flow Doppler imaging was performed. During the study the apical, parasternal, subcostal and suprasternal view was captured. Definity contrast was used during the study. Overall the study quality was adequate. Heart rate was tachycardic. Height: 182.9 cm. Weight: 106.1 kg. BSA: 2.28 m2. The heart rhythm during this exam was most suggestive of atrial fibrillation/flutter. Study Recommendation Compared to the most recently available prior study, and allowing for differences in image quality and technique, there is no significant interval change noted. Yelitza Sánchez APRN CV ECHO PROCEDURES Final R esult * (ABNORMAL) TSH Reflex FT4 (05/13/2024 6:45 AM EDT) Only the most recent of2 resultswithin the time period is included. Thyroid Stimulating Hormone, Plasma 113.00(H) 0.40 - 4.20 uIU/mL 05/13/2024 7:[address] [facility] Blood Venous blood specimen / Unknown Venipuncture / Unknown 05/13/2024 6:45 AM EDT 05/13/2024 6:50 AM EDT Meghana Gann DO LAB BLOOD ORDERABLES Final Resu lt Performing Organization Address [facility]/ZIP Co de Phone Number [facility] [address] [place] [address] * (ABNORMAL) N-Terminal Probnp (05/13/2024 6:45 AM EDT) N-Terminal, PROBNP, Plasma 3,336(H) 0 - 899 pg/mL 05/13/2024 7:[address] [facility] Blood Venous blood specimen / Unknown Venipuncture / Unknown 05/13/2024 6:45 AM EDT 05/13/2024 6:50 AM EDT [employer] LAB BLOOD ORDERABLES Final Resu lt Performing Organization Address [facility] Co de Phone Number [facility] [address] [place] [address] * Iron & Total Iron Binding Capacity, Plasma (Includes Transferrin) (05/13/2024 6:45 AM EDT) Iron, Plasma 112 50 - 170 ug/dL 05/13/2024 7:[address] [facility] Transferrin, Plasma 203 200 - 360 mg/dL 05/13/2024 7:[address] [facility] Total Iron Binding Capacity, Plasma 254 240 - 450 ug/mL 05/13/2024 7:[address] [facility] Transferrin Saturation 44 14 - 50 % 05/13/2024 7:44 AM EDT [facility] Blood Venous blood specimen / Unknown Venipuncture / Unknown 05/13/2024 6:45 AM EDT 05/13/2024 6:50 AM EDT [employer] LAB BLOOD ORDERABLES Final Resu lt Performing Organization Address [facility]/[place] [address] * (ABNORMAL) Free T4, Plasma (05/13/2024 6:45 AM EDT) Only the most recent of2 resultswithin the time period is included. Free T4, Plasma 0.4(L) 0.8 - 1.7 ng/dL 05/13/2024 8:13 AM EDT [facility] Blood Venous blood specimen / Unknown Venipuncture / Unknown 05/13/2024 6:45 AM EDT 05/13/2024 6:50 AM [facility]T [facility] BLOOD ORDERABLES Final Resu lt Performing Organization Address [facility] Co de Phone Number [facility] [address] [place] [address] * Methicillin Resistant Staphylococcus aureus (MRSA) by PCR (05/13/2024 5:10 AM EDT) [facility] Methicillin Resistant Staphylococcus aureus (MRSA) by PCR Not Detected Not Detected 05/13/2024 9:19 AM EDT [facility] Swab Both anterior nares / Unknown Non-blood Collection / Unknown 05/13/2024 5:10 AM EDT 05/13/2024 7:[address] [facility] - 05/13/2024 9:19 AM EDT This test is FDA approved for use with nares swab specimens using the eSwabs. This test is used for clinical purposes. It should not be regarded as investigational or for research. This laboratory is certified under the Clinical Laboratory improvement Amendments of 1988 (CLIA-88 as qualified to perform high complexity clinical laboratory testing. Meghana Sanjuanita LAB MICROBIOLOGY - GENERAL ORDE RABLES Final Result Performing Organization Address [facility] Co de Phone Number [facility] [address] [place] [address] * (ABNORMAL) Bone Specific Alkaline Phosphatase (05/13/2024 4:10 AM EDT) [facility] Bone Specific Alkaline Phosphatase 34.5(H) 6.5 - 20.1 ug/L 05/13/2024 5:[address] [facility] Comment:Test performed at [facility], [facility] Laboratory. Blood Venous blood specimen / Unknown Venipuncture / Unknown 05/13/2024 4:10 AM EDT 05/13/2024 4:39 AM EDT [employer] DO LAB REF LAB BLOOD AND FLUID ORD Final Result Performing Organization Address City/[facility]/ZIP Co de Phone Number [facility] [address] [place] [address] * Total Protein, Serum (05/13/2024 4:10 AM EDT) Total Protein 6.2 6.2 - 7.7 g/dL 05/13/2024 5:[address] [facility] Blood Venous blood specimen / Unknown Venipuncture / Unknown 05/13/2024 4:10 AM EDT 05/13/2024 4:39 AM EDT [employer] DO LAB BLOOD ORDERABLES Final Resu lt Performing Organization Address City/[facility]/ZIP Co de Phone Number [facility] [address] [place] [address] * (ABNORMAL) Protein Electrophoresis, Serum (05/13/2024 4:10 AM EDT) Albumin Electrophoresis, Serum 3.0(L) 3.6 - 4.7 g/dL 05/14/2024 2:[address] [facility] Alpha 1 Globulin Electrophoresis, Serum 0.3 0.2 - 0.4 g/dL 05/14/2024 2:[address] [facility] Alpha 2 Globulin Electrophoresis, Serum 0.8 0.5 - 0.9 g/dL 05/14/2024 2:[address] [facility] Beta 1 Globulin Electrophoresis, Serum 0.4 0.3 - 0.5 g/dL 05/14/2024 2:[address] [facility] Beta 2 Globulin Electrophoresis, Serum 0.4 0.2 - 0.5 g/dL 05/14/2024 2:[address] [facility] Gamma Globulin Electrophoresis, Serum 1.3 0.6 - 1.5 g/dL 05/14/2024 2:[address] [facility] Interpretation, Serum Protein Electrophoresis Pathology report to follow. 05/14/2024 2:[address] [facility] Blood Venous blood specimen / Unknown Venipuncture / Unknown 05/13/2024 4:10 AM EDT 05/13/2024 4:40 AM EDT us Meghana Gann DO LAB BLOOD ORDERABLES Final Resu lt Performing Organization Address [facility]/ZIP Co de Phone Number [facility] [address] [place] [address] * (ABNORMAL) Troponin T, High Sensitivity, 2 Hour, Plasma (05/13/2024 4:10 AM EDT) Troponin T, High Sensitivity, 2 Hour 20(H) <19 ng/L 05/13/2024 5:[address] [facility] Troponin Delta 1 <10 ng/L 05/13/2024 5:[address] [facility] Troponin Delta Interpretation Not Significant 05/13/2024 5:[address] [facility] Comment:Not Significant. No acute change in troponin observed between the baseline and 2 hour samples. Blood Venous blood specimen / Unknown Venipuncture / Unknown 05/13/2024 4:10 AM EDT 05/13/2024 4:39 AM EDT aH Starr MD LAB BLOOD ORDERABLES Final Re sult Performing Organization Address [facility] Co de Phone Number [facility] [address] [place] [address] * Protein electrophoresis serum, pathologist interpretation (05/13/2024 4:10 AM EDT) Clinical Diagnosis, SPEP Hypothyroidism (acquired) 05/14/2024 10:[address] [facility] Interpretation , SPEP The protein electrophoresis pattern reveals that the albumin concentration is depressed. The low albumin levels might suggest albumin loss (renal or GI loss; formation of exudates or edema), or deficient albumin synthesis (malnutrition; malabsorption; liver failure). 05/14/2024 10:[address] [facility] Pathologist Signature, SPEP Reviewed by: Giorgio Quintero MD 05/14/2024 10:28 AM EDT [facility] CP ASR DISCLAIMER No 05/14/2024 10:[address] [facility] Blood Venous blood specimen / Unknown Venipuncture / Unknown 05/13/2024 4:10 AM EDT 05/13/2024 4:40 AM EDT Meghana Gann DO LAB PATHOLOGY ORDERABLES Final Result Performing Organization Address [facility] Co de Phone Number [facility] [address] [place] [address] * (ABNORMAL) Ionized calcium, serum (05/13/2024 4:10 AM EDT) Pathologist [facility] Ionized Calcium, Serum 4.3(L) 4.6 - 5.3 mg/dL LAB HEMATOLOGY METHOD 05/13/2024 4:[address] [facility] Blood Venous blood specimen / Unknown Venipuncture / Unknown 05/13/2024 4:10 AM EDT 05/13/2024 4:40 AM EDT Meghana Gann DO LAB BLOOD ORDERABLES Final Resu lt Performing Organization Address [facility] [place] [address] * (ABNORMAL) Vitamin D 25 hydroxy (05/13/2024 4:10 AM EDT) Vitamin D 25 Hydroxy 11.3(L) 20.0 - 80.0 ng/mL 05/13/2024 5:[address] [facility] Blood Venous blood specimen / Unknown Venipuncture / Unknown 05/13/2024 4:10 AM EDT 05/13/2024 4:[address] [facility] - 05/13/2024 5:51 AM EDT Testing performed on [employer], standardized against NIST SRM 2972. When testing samples from patients whose predominant form of vitamin D is vitamin D2, such as patients receiving vitamin D2 supplementation, results that are subtherapeutic should be confirmed with another method, such as LC-MS/MS, before being used for patient management. Vitamin D, 25-Hydroxy reference range, age 18 years and up: Deficiency: <12 ng/mL Insufficiency: 12 to 19 ng/mL Sufficiency: 20 to 80 ng/mL Possible toxicity: >100 ng/mL [facility] HilaryDoubleRecall DO LAB BLOOD ORDERABLES Final Resu lt Performing Organization Address City/[facility]/ZIP Co de Phone Number [facility] [address] [place] [address] * (ABNORMAL) PTH Intact Total (05/13/2024 4:10 AM EDT) PTH Intact Total 157(H) 9 - 77 pg/mL 05/13/2024 5:33 AM EDT [facility] Blood Venous blood specimen / Unknown Venipuncture / Unknown 05/13/2024 4:10 AM EDT 05/13/2024 4:[address] [facility] - 05/13/2024 5:33 AM EDT Assay performed by immunoassay at the [facility]. Performed on [employer] chemiluminescent immunoassay, tractable to the World Health Organization's first international standard for PTH from the NIBSC, Code 79/500. Results obtained from different test methods or kits cannot be used interchangeably. Meghana Gann [employer] LAB BLOOD ORDERABLES Final Resu lt Performing Organization Address City/[facility] Co de Phone Number [facility] [address] [place] [address] * XR Hip Left Stress View (05/13/2024 4:04 AM EDT) Anatomical Region Laterality Modality Lower Extremities, Hip Left Digital R adiography Impressions 05/13/2024 4:22 AM EDT Chest: No acute findings. Left hip: Redemonstrated displaced, angulated and comminuted intertrochanteric fracture of the left femur with associated soft tissue swelling. CRITICAL RESULT: No. COMMUNICATION: Per this written report. By electronically signing this report, I, the attending physician, attest that I have personally reviewed the images/data for the above examination(s) and agree with the final edited report. Drafted by Mitchell Rosales MD on 05/13/2024 4:13 AM Final report signed by Vero Heath MD on 05/13/2024 4:22 AM Narrative 05/13/2024 4:22 AM EDT CLINICAL INDICATION: 59 y.o. male presents with a chief complaint of left hip pain after a ground level fall at home at approximately 5:00 p.m. on 05/12. Patient reports that he was walking his dog when the dog pulled on the leash and he fell, landing onto his left hip. TECHNIQUE: XR CHEST 1 VIEW, XR HIP LEFT STRESS VIEW COMPARISON: Hip radiograph 05/13/2024 at 12:51 AM; chest radiograph 12/09/2023 FINDINGS: Chest: Heart and mediastinum is accentuated on this technique.. No focal consolidation, pleural effusion or pneumothorax. 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 Old rib fractures. Left hip: Redemonstrated displaced, angulated and comminuted anterior trochanteric fracture of the left femur with associated soft tissue swelling. Internal fixation of the right proximal femur. With michell and sliding screw. Procedure Note Vero Heath MD - 05/13/2024 CLINICAL INDICATION: 59 y.o. male presents with a chief complaint of left hip pain after aground level fall at home at approximately 5:00 p.m. on 05/12. Patientreports that he was walking his dog when the dog pulled on the leash andhe fell, landing onto his left hip. TECHNIQUE: XR CHEST 1 VIEW, XR HIP LEFT STRESS VIEW COMPARISON: Hip radiograph 05/13/2024 at 12:51 AM; chest radiograph 12/09/2023 FINDINGS: Chest: Heart and mediastinum is accentuated on this technique.. No focalconsolidation, pleural effusion or pneumothorax. Redemonstrated calcifiedlymph nodes and granuloma from prior histoplasmosis. Old rib fractures. Left hip: Redemonstrated displaced, angulated and comminuted anteriortrochanteric fracture of the left femur with associated soft tissueswelling. Internal fixation of the right proximal femur. With michell andsliding screw. IMPRESSION: Chest: No acute findings. Left hip: Redemonstrated displaced, angulated and comminutedintertrochanteric fracture of the left femur with associated soft tissueswelling. CRITICAL RESULT: No. COMMUNICATION: Per this written report. By electronically signing this report, I, the attending physician, mikeat I have personally reviewed the images/data for the aboveexamination(s) and agree with the final edited report. Drafted by Mitchell Rosales MD on 05/13/2024 4:13 AM Final report signed by Vero Heath MD on 05/13/2024 4:22 AM Ángela Cook MD IMG XR PROCEDURES Final Result * Anti Xa Level Unfractionated Heparin (05/13/2024 3:17 AM EDT) Anti Xa Level Unfractionated Heparin <0.11 <1.00 IU/mL LAB COAGULATION METHOD 05/13/2024 4:[address] [facility] Blood Venous blood specimen / Unknown Venipuncture / Unknown 05/13/2024 3:17 AM EDT 05/13/2024 3:[address] [facility] - 05/13/2024 4:16 AM EDT Therapeutic Range: UFH Full Dose and ACS/VA protocols*: 0.30 - 0.70 IU/mL UFH Low Dose protocol*: 0.25 - 0.50 IU/mL UFH prophylaxis: Not established Ha Starr MD LAB BLOOD ORDERABLES Final Re sult [facility] [address] [place] [address] * (ABNORMAL) Troponin now and 120 min (05/13/2024 2:09 AM EDT) Troponin T, High Sensitivity, 0 Hour 19(H) <19 ng/L 05/13/2024 2:[address] [facility] Blood Venous blood specimen / Unknown Venipuncture / Unknown 05/13/2024 2:09 AM EDT 05/13/2024 2:22 AM EDT us Ha Starr MD LAB BLOOD ORDERABLES Final Re sult [facility] [address] [place] [address] * XR Tibia Fibula Left 2+ Views (05/13/2024 1:36 AM EDT) Anatomical Region Laterality Modality Lower Extremities, Lower Leg Left Dig ital Radiography Impressions 05/13/2024 2:00 AM EDT Evidence of left mildly displaced, and angulated and comminuted intertrochanteric fracture of the left femur with associated soft tissue swelling around the left hip. Chondrocalcinosis of the knee dated. CRITICAL RESULT: No. COMMUNICATION: Per this written report. By electronically signing this report, I, the attending physician, attest that I have personally reviewed the images/data for the above examination(s) and agree with the final edited report. Drafted by Mitchell Rosales MD on 05/13/2024 1:43 AM Final report signed by Vero Heath MD on 05/13/2024 2:00 AM Narrative 05/13/2024 2:00 AM EDT CLINICAL INDICATION: 59-year-old male presents to ED as a transfer from outside hospital, [facility], after a fall earlier today resulting in left peritrochanteric fracture. TECHNIQUE: XR HIP LEFT 2 OR 3 VIEWS, XR KNEE LEFT 3 VIEWS, XR TIBIA FIBULA LEFT 2+ VIEWS, XR FEMUR LEFT 2+ VIEWS COMPARISON: Abdominal radiographs 12/13/2023 FINDINGS: Pelvis: Evidence of left mildly displaced, peritrochanteric fracture. Pubic symphysis is intact. Soft tissue swelling around the left hip. Prior fixation seen in the right hip. Left femur: No acute fracture of the left femur. No soft tissue swelling. Left knee: No fracture, subluxation or dislocation. No evidence of tricompartmental joint space narrowing. No joint effusion. Procedure Note Vero Heath MD - 05/13/2024 CLINICAL INDICATION: 59-year-old male presents to ED as a transfer from outside hospital,[facility], after a fall earlier today resulting in leftperitrochanteric fracture. TECHNIQUE: XR HIP LEFT 2 OR 3 VIEWS, XR KNEE LEFT 3 VIEWS, XR TIBIA FIBULA LEFT 2+VIEWS, XR FEMUR LEFT 2+ VIEWS COMPARISON: Abdominal radiographs 12/13/2023 FINDINGS: Pelvis: Evidence of left mildly displaced, peritrochanteric fracture.Pubic symphysis is intact. Soft tissue swelling around the left hip. Priorfixation seen in the right hip. Left femur: No acute fracture of the left femur. No soft tissueswelling. Left knee: No fracture, subluxation or dislocation. No evidence oftricompartmental joint space narrowing. No joint effusion. IMPRESSION: Evidence of left mildly displaced, and angulated and comminutedintertrochanteric fracture of the left femur with associated soft tissueswelling around the left hip. Chondrocalcinosis of the knee dated. CRITICAL RESULT: No. COMMUNICATION: Per this written report. By electronically signing this report, I, the attending physician, attestthat I have personally reviewed the images/data for the aboveexamination(s) and agree with the final edited report. Drafted by Mitchell Rosales MD on 05/13/2024 1:43 AM Final report signed by Vero Heath MD on 05/13/2024 2:00 AM us Ha Starr MD IMG XR PROCEDURES Final Resul t * XR Knee Left 3 Views (05/13/2024 1:36 AM EDT) Anatomical Region Laterality Modality Lower Extremities, Knee Left Digital Radiography Impressions 05/13/2024 2:00 AM EDT Evidence of left mildly displaced, and angulated and comminuted intertrochanteric fracture of the left femur with associated soft tissue swelling around the left hip. Chondrocalcinosis of the knee dated. CRITICAL RESULT: No. COMMUNICATION: Per this written report. By electronically signing this report, I, the attending physician, attest that I have personally reviewed the images/data for the above examination(s) and agree with the final edited report. Drafted by Mitchell Rosales MD on 05/13/2024 1:43 AM Final report signed by Vero Heath MD on 05/13/2024 2:00 AM Narrative 05/13/2024 2:00 AM EDT CLINICAL INDICATION: 59-year-old male presents to ED as a transfer from outside hospital, [facility], after a fall earlier today resulting in left peritrochanteric fracture. TECHNIQUE: XR HIP LEFT 2 OR 3 VIEWS, XR KNEE LEFT 3 VIEWS, XR TIBIA FIBULA LEFT 2+ VIEWS, XR FEMUR LEFT 2+ VIEWS COMPARISON: Abdominal radiographs 12/13/2023 FINDINGS: Pelvis: Evidence of left mildly displaced, peritrochanteric fracture. Pubic symphysis is intact. Soft tissue swelling around the left hip. Prior fixation seen in the right hip. Left femur: No acute fracture of the left femur. No soft tissue swelling. Left knee: No fracture, subluxation or dislocation. No evidence of tricompartmental joint space narrowing. No joint effusion. Procedure Note Vero Heath MD - 05/13/2024 CLINICAL INDICATION: 59-year-old male presents to ED as a transfer from outside hospital,[facility], after a fall earlier today resulting in leftperitrochanteric fracture. TECHNIQUE: XR HIP LEFT 2 OR 3 VIEWS, XR KNEE LEFT 3 VIEWS, XR TIBIA FIBULA LEFT 2+VIEWS, XR FEMUR LEFT 2+ VIEWS COMPARISON: Abdominal radiographs 12/13/2023 FINDINGS: Pelvis: Evidence of left mildly displaced, peritrochanteric fracture.Pubic symphysis is intact. Soft tissue swelling around the left hip. Priorfixation seen in the right hip. Left femur: No acute fracture of the left femur. No soft tissueswelling. Left knee: No fracture, subluxation or dislocation. No evidence oftricompartmental joint space narrowing. No joint effusion. IMPRESSION: Evidence of left mildly displaced, and angulated and comminutedintertrochanteric fracture of the left femur with associated soft tissueswelling around the left hip. Chondrocalcinosis of the knee dated. CRITICAL RESULT: No. COMMUNICATION: Per this written report. By electronically signing this report, I, the attending physician, attcarleeat I have personally reviewed the images/data for the aboveexamination(s) and agree with the final edited report. Drafted by Mitchell Rosales MD on 05/13/2024 1:43 AM Final report signed by Vero Heath MD on 05/13/2024 2:00 AM Ha Starr MD IMG XR PROCEDURES Final Resul t * XR Hip Left 2 or 3 Views Including Pelvis (05/13/2024 1:36 AM EDT) Anatomical Region Laterality Modality Lower Extremities, Hip Left Digital R adiography Impressions 05/13/2024 2:00 AM EDT Evidence of left mildly displaced, and angulated and comminuted intertrochanteric fracture of the left femur with associated soft tissue swelling around the left hip. Chondrocalcinosis of the knee dated. CRITICAL RESULT: No. COMMUNICATION: Per this written report. By electronically signing this report, I, the attending physician, attest that I have personally reviewed the images/data for the above examination(s) and agree with the final edited report. Drafted by Mitchell Rosales MD on 05/13/2024 1:43 AM Final report signed by Vero Heath MD on 05/13/2024 2:00 AM Narrative 05/13/2024 2:00 AM EDT CLINICAL INDICATION: 59-year-old male presents to ED as a transfer from outside hospital, [facility], after a fall earlier today resulting in left peritrochanteric fracture. TECHNIQUE: XR HIP LEFT 2 OR 3 VIEWS, XR KNEE LEFT 3 VIEWS, XR TIBIA FIBULA LEFT 2+ VIEWS, XR FEMUR LEFT 2+ VIEWS COMPARISON: Abdominal radiographs 12/13/2023 FINDINGS: Pelvis: Evidence of left mildly displaced, peritrochanteric fracture. Pubic symphysis is intact. Soft tissue swelling around the left hip. Prior fixation seen in the right hip. Left femur: No acute fracture of the left femur. No soft tissue swelling. Left knee: No fracture, subluxation or dislocation. No evidence of tricompartmental joint space narrowing. No joint effusion. Procedure Note Vero Heath MD - 05/13/2024 CLINICAL INDICATION: 59-year-old male presents to ED as a transfer from outside hospital,[facility], after a fall earlier today resulting in leftperitrochanteric fracture. TECHNIQUE: XR HIP LEFT 2 OR 3 VIEWS, XR KNEE LEFT 3 VIEWS, XR TIBIA FIBULA LEFT 2+VIEWS, XR FEMUR LEFT 2+ VIEWS COMPARISON: Abdominal radiographs 12/13/2023 FINDINGS: Pelvis: Evidence of left mildly displaced, peritrochanteric fracture.Pubic symphysis is intact. Soft tissue swelling around the left hip. Priorfixation seen in the right hip. Left femur: No acute fracture of the left femur. No soft tissueswelling. Left knee: No fracture, subluxation or dislocation. No evidence oftricompartmental joint space narrowing. No joint effusion. IMPRESSION: Evidence of left mildly displaced, and angulated and comminutedintertrochanteric fracture of the left femur with associated soft tissueswelling around the left hip. Chondrocalcinosis of the knee dated. CRITICAL RESULT: No. COMMUNICATION: Per this written report. By electronically signing this report, I, the attending physician, jocelin I have personally reviewed the images/data for the aboveexamination(s) and agree with the final edited report. Drafted by Mitchell Rosales MD on 05/13/2024 1:43 AM Final report signed by Vero Heath MD on 05/13/2024 2:00 AM Ha Starr MD IMG XR PROCEDURES Final Resul t * Lactic acid, venous (05/13/2024 1:24 AM EDT) Lactate, Venous, Whole Blood 1.7 0.5 - 2.2 mmol/L LAB HEMATOLOGY METHOD 05/13/2024 1:[address] [facility] Blood Venous blood specimen / Unknown Venipuncture / Unknown 05/13/2024 1:24 AM EDT 05/13/2024 1:28 AM EDT Ha Starr MD LAB BLOOD ORDERABLES Final Re sult [facility] [address] [place] [address] * (ABNORMAL) Ethyl Alcohol Plasma (05/13/2024 1:24 AM EDT) Ethanol Plasma 246(H) <10 mg/dL 05/13/2024 1:[address] [facility] Blood Venous blood specimen / Unknown Venipuncture / Unknown 05/13/2024 1:24 AM EDT 05/13/2024 1:[address] [facility] - 05/13/2024 1:50 AM EDT Enzymatic Assay: Performed on Jordi Terrence. us Ha Starr MD LAB BLOOD ORDERABLES Final Re sult Performing Organization Address City/[facility]/ZIP Co de Phone Number [facility] [address] [place] [address] * APTT (05/13/2024 1:24 AM EDT) aPTT 29 25 - 35 sec 05/13/2024 1:45 AM EDT [facility] Blood Venous blood specimen / Unknown Venipuncture / Unknown 05/13/2024 1:24 AM EDT 05/13/2024 1:27 AM EDT us Ha Starr MD LAB BLOOD ORDERABLES Final Re sult Performing Organization Address City/[facility]/ZIP Co de Phone Number [facility] [address] [place] [address] * Type and screen (05/13/2024 1:24 AM EDT) ABO/Rh A Positive 05/13/2024 12:59 AM EDT BLOOD BANK Antibody Screen Negative 05/13/2024 12:59 AM EDT BLOOD BANK Specimen Expiration 05/16/2024 23:59 05/13/2024 12:59 AM EDT BLOOD BANK Blood Venous blood specimen / Unknown Venipuncture / Unknown 05/13/2024 1:24 AM EDT 05/13/2024 1:27 AM EDT us Ha Starr MD LAB BLOOD BANK TEST ORDERABLE S Final Result BLOOD BANK [address] [place] [address], [place] * CT OUTSIDE IMAGES (05/12/2024 9:28 PM EDT) Only the most recent of8 resultswithin the time period is included. Anatomical Region Laterality Modality Computed Tomogra phy 05/12/2024 9:28 PM EDT us Lashell Rosenberg DO IMG CT PROCEDURES Final Result * CT NEURO OUTSIDE IMAGES (05/12/2024 9:18 PM EDT) Anatomical Region Laterality Modality Computed Tomogra phy 05/12/2024 9:18 PM EDT External Provider IMG CT PROCEDURES Final Result * XR OUTSIDE IMAGES (05/12/2024 8:50 PM EDT) Only the most recent of4 resultswithin the time period is included. Anatomical Region Laterality Modality Radiographic Nicky ging 05/12/2024 8:50 PM EDT Rip OLMOS IMG XR PROCEDURES Final Result * XR MSK OUTSIDE IMAGES (05/12/2024 8:50 PM EDT) Only the most recent of2 resultswithin the time period is included. Anatomical Region Laterality Modality Radiographic Nicky ging 05/12/2024 8:50 PM EDT Rip OLMOS IMG XR PROCEDURES Final Result * CT Angio Chest (12/09/2023 12:43 AM EDT) Anatomical Region Laterality Modality Chest Computed Tomogra phy Impressions 12/09/2023 1:53 AM EDT 1. No acute traumatic aortic injury. 2. No acute findings in the chest. CRITICAL RESULT: No. COMMUNICATION: Per this written report. Preliminary report signed by Gayla Hamilton MD on 12/09/2023 1:49 AM By electronically signing this report, I, the attending physician, attest that I have personally reviewed the images/data for the above examination(s) and agree with the final edited report. Drafted by Gayla Hamilton MD on 12/09/2023 1:44 AM Final report signed by Rohan Babin MD on 12/09/2023 1:53 AM Narrative 12/09/2023 1:53 AM EDT CLINICAL INDICATION: sepsis TECHNIQUE: Imaging of the chest was performed, from thoracic inlet through upper abdomen, using spiral technique, following administration of IV contrast, Omnipaque 350, 100 mL according to the CTA thoracic aorta protocol. Reformatted images in the coronal, sagittal, and oblique planes were generated from the axial data set to facilitate diagnostic accuracy. In addition, 3D images were created and reviewed. Total DLP (Dose-Length Product): 1346.18 mGy.cm. Please note: The reported value represents the total of one or more individual components during the CT acquisition on this date and at this time, and as such, the same value may appear in more than one CT report depending on the interpreting/reporting physicians. COMPARISON: None. FINDINGS: Chest: Aorta/Vessels: No acute traumatic aortic injury. No periaortic hematoma. Pleural/Pericardial Space: No pneumothorax. No pleural effusions. No pericardial effusion. Four-chamber cardiomegaly. Lymph Nodes: No lymphadenopathy within the chest. Sequela of prior granulomatous disease. Lungs: Patent central airways. Diffuse bronchial wall thickening. Minimal bibasilar atelectasis. Mediastinum: Otherwise unremarkable. Chest Wall: No chest wall hematoma or contusion. Bones: No acute fracture within the chest. Bilateral healed rib fractures. Upper Abdomen: Severe hepatic steatosis. Procedure Note Rohan Babin MD - 12/09/2023 CLINICAL INDICATION: sepsis TECHNIQUE: Imaging of the chest was performed, from thoracic inlet through upperabdomen, using spiral technique, following administration of IV contrast,Omnipaque 350, 100 mL according to the CTA thoracic aorta protocol.Reformatted images in the coronal, sagittal, and oblique planes weregenerated from the axial data set to facilitate diagnostic accuracy. Inaddition, 3D images were created and reviewed. Total DLP (Dose-Length Product): 1346.18 mGy.cm. Please note: The reportedvalue represents the total of one or more individual components during theCT acquisition on this date and at this time, and as such, the same valuemay appear in more than one CT report depending on theinterpreting/reporting physicians. COMPARISON: None. FINDINGS: Chest: Aorta/Vessels: No acute traumatic aortic injury. No periaortic hematoma. Pleural/Pericardial Space: No pneumothorax. No pleural effusions. Nopericardial effusion. Four-chamber cardiomegaly. Lymph Nodes: No lymphadenopathy within the chest. Sequela of priorgranulomatous disease. Lungs: Patent central airways. Diffuse bronchial wall thickening. Minimalbibasilar atelectasis. Mediastinum: Otherwise unremarkable. Chest Wall: No chest wall hematoma or contusion. Bones: No acute fracture within the chest. Bilateral healed ribfractures. Upper Abdomen: Severe hepatic steatosis. IMPRESSION: 1. No acute traumatic aortic injury. 2. No acute findings in the chest. CRITICAL RESULT: No. COMMUNICATION: Per this written report. Preliminary report signed by Gayla Hamilton MD on 12/09/2023 1:49 AM By electronically signing this report, I, the attending physician, attestthat I have personally reviewed the images/data for the aboveexamination(s) and agree with the final edited report. Drafted by Gayla Hamilton MD on 12/09/2023 1:44 AM Final report signed by Rohan Babin MD on 12/09/2023 1:53 AM us Ivana Payne MD IMG CT PROCEDURES Final Result * ED HIV 1/2 Antibody/Antigen Screen w/Reflex to HIV 1/2 Differentiation (12/08/2023 10:35 PM EDT) HIV 1 & 2 Antibody/Antigen Screen Non Reactive Non Reactive 12/08/2023 11:31 PM EDT [facility] Comment:Screening for HIV 1 & 2 antibodies, and P24 antigen is NONREACTIVE. No confirmatory testing is required. Blood Venous blood specimen / Unknown Venipuncture / Unknown 12/08/2023 10:35 PM EDT 12/08/2023 10:45 PM EDT us Ivana Payne MD LAB BLOOD ORDERABLES Final Resul t [facility] [address] [place] [address] * Hepatitis C Antibody - ED (12/08/2023 10:35 PM EDT) Hepatitis C Antibody Negative Negative 12/08/2023 11:28 PM EDT [facility]ALTH[facility] Blood Venous blood specimen / Unknown Venipuncture / Unknown 12/08/2023 10:35 PM EDT 12/08/2023 10:45 PM EDT us Ivana Payne MD LAB BLOOD ORDERABLES Final Resul t [facility] [address] [place] [address] from Last 3 Months or Most Recently Relevant to Health Maintenance Insurance [employer] [place] Advance Directives * Full Code (Latest Code Status on File) Date Activated Date Inactivated Comments 05/13/2024 3:57 AM 06/01/2024 6:26 PM * Full Code Date Activated Date Inactivated Comments 12/09/2023 3:00 AM 01/03/2024 1:37 PM Question Answer Comments Patient has decision-making capacity? Yes Care Teams Onyx Chip Terrazzo Worker Relationship Specialty Start Date End Date Casey Felix MD [address] [place] [address] PCP - General 09/05/20 Dotty Askew MD [address] [facility] [address] [place] [id number] Consulting Physician Pediatric Cardiology 09/05/20
--- OUTSIDE RECORDS SUMMARY | 2024-08-06 19:14 | XMS_ITS | Encounter Summary ---
Author Organization [facility] Address [address] [place] [id number] Care Team Providers Care Entry Level Electrician Name Role Phone Unavailable Primary Care Provider Unavailabl e Encounter Details Date Type Department Care Team (Late st Contact Info) Description 04/13/2019 Transcribed Document [facility] [facility] [address] [place] [address] ProviderSharon MD [facility] [place], [place] [id number] Social History Tobacco Use Types Packs/Day Years Used Date Smoking Tobacco: Never Assessed Sex and Gender Information Value Date Recorded Sex Assigned at Not on file Legal Sex Male 6:54 PM CDT Gender Identity Not on file Sexual Orientation Not on file documented as of this encounter Miscellaneous Notes * Cerner Conversion Note - Sharon ProviderMD - 04/13/2019 1:59 PM REELER OPERATOR On Going Discharge Planning Entered On: 04/13/2019 14:01 EST Performed On: 04/13/2019 13:59 EST by JUS MATAMOROS Rn-Title CoordinatorTraffic Observer Progress Note Discharge Arrangements : Patient Post-Acute Information Patient Name: RAUDEL ZEPEDA Gender: Male : [birth year] Age: 54 Years No Post-Acute Placement(s) Listed No Post-Acute Service(s) Listed No Curaspan Referral(s) Listed Discharge Options Discussed with Patient : Home Health, Substance abuse/mental health Barriers to Discharge Identified : Clinical Condition of Patient Barriers to Discharge Unresolved : Clinical Condition of Patient Is the Patient Meeting Medical Necessity : Yes JSU MATAMOROS, Rn-Title Coordinator - 04/13/2019 13:59 EST Narrative Progress Note Narrative Progress Note : Day 4 - Heparin gtt; Dexa gtt; pt off the unit for ablation; anticipate d/c home with S.O. when stable; OLOP consult on d/c. Historical Progress Note : Anticipate pt will d/c home with S.O. when stable; OLOP consult when ready for d/c. JUS MATAMOROS Rn-Title Coordinator - 04/12/19 12:03:20 JUS MATAMOROS Rn-Title Coordinator - 04/13/2019 13:59 EST documented in this encounter Plan of Treatment Not on file documented as of this encounter Visit Diagnoses Not on filedocumented in this encounter
--- OUTSIDE RECORDS SUMMARY | 2024-08-06 19:14 | XMS_ITS | Encounter Summary ---
Author Organization [facility] Address [address] [place] [address] Care Team Providers Care Distribution Field Engineer Name Role Phone Unavailable Primary Care Provider Unavailabl e Encounter Details Date Type Department Care Team (Late st Contact Info) Description 04/12/2019 Transcribed Document [facility] [place] Family Medicine [address] [place] [address] ProviderSharon MD [address] [place] [address] Social History Tobacco Use Types Packs/Day Years Used Date Smoking Tobacco: Never Assessed Sex and Gender Information Value Date Recorded Sex Assigned at Not on file Legal Sex Male 6:54 PM CDT Gender Identity Not on file Sexual Orientation Not on file documented as of this encounter Miscellaneous Notes * Cerner Conversion Note - Historical ProviderMD - 04/12/2019 5:00 AM PRICING ACTUARY Chart Check - Review Order Profile Entered On: 04/12/2019 8:09 EST Performed On: 04/12/2019 5:00 EST by MORRO GILLIAM RN Chart Check Powerplans Initiated/Discontinued as Appropriate : Yes All Active Orders Reviewed : Yes MORRO GILLIAM RN - 04/12/2019 8:09 EST documented in this encounter Plan of Treatment Not on file documented as of this encounter Visit Diagnoses Not on filedocumented in this encounter
--- OUTSIDE RECORDS SUMMARY | 2024-08-06 19:14 | XMS_ITS | Encounter Summary ---
Author Organization [employer] Address [address] [place] [address] Care Team Providers Care Commercial Credit Head Name Role Phone Unavailable Primary Care Provider Unavailabl e Encounter Details Date Type Department Care Team (Late st Contact Info) Description 04/09/2019 Transcribed Document [facility] [place] [address] [place] [address] ProviderSharon MD Formerly [facility], [facility] [place] [address] Social History Tobacco Use Types Packs/Day Years Used Date Smoking Tobacco: Never Assessed Sex and Gender Information Value Date Recorded Sex Assigned at Not on file Legal Sex Male 6:54 PM CDT Gender Identity Not on file Sexual Orientation Not on file documented as of this encounter Miscellaneous Notes * Cerner Conversion Note - Historical ProviderMD - 04/09/2019 6:45 PM DIRECT CARE WORKER Admission History, Adult Entered On: 04/10/2019 3:32 EST Performed On: 04/09/2019 18:45 EST by Luda Kay, RN Advance Directive Patient has Advance Directive *Q : No, patient refuses Advance Directive information Luda Kay RN - 04/10/2019 3:19 EST Anesthesia/Transfusion History Family History of Anesthesia Reaction : No prior transfusion(s) Transfusion History : Prior anesthesia without reaction Family History of Anesthesia Reaction : None Luda Kay RN - 04/10/2019 3:19 EST Anticipated Discharge Needs Discharge To, Anticipated : Home Luda Kay RN - 04/10/2019 3:19 EST Education Topics, Admission Orientation DCP GENERIC CODE Advance Directives : Verbalizes understanding Allergy Band Applied : Verbalizes understanding Assessment/Vital Signs : Verbalizes understanding Bed Control : Verbalizes understanding Call Light : Verbalizes understanding Confidentiality : Verbalizes understanding Diet/Room Service : Verbalizes understanding Fall Prevention : Verbalizes understanding Hand Hygiene : Verbalizes understanding Healthcare Provider Visit : Verbalizes understanding ID Band Applied : Verbalizes understanding Isolation Precautions : Verbalizes understanding Orientation to Room/Bathroom : Verbalizes understanding Patient Bill of Rights : Verbalizes understanding Patient Rights/Responsibilities : Verbalizes understanding Patient Safety : Verbalizes understanding Personal Privacy Code : Verbalizes understanding Rapid Response Initiated by Patient/Family : Verbalizes understanding Rounding : Verbalizes understanding Siderails use/risks : Verbalizes understanding Skin Precautions : Verbalizes understanding Smoking Policy : Verbalizes understanding Telemetry Monitoring : Verbalizes understanding Television/Phone : Verbalizes understanding Visiting Policy : Verbalizes understanding Luda Kay RN - 04/10/2019 3:19 EST Functional Assessment Living Situation : Home Persons Assisting Patient at Home : Significant other(s) Current Daily Living Assistance : None Sensory Deficits : None Mobility Assistance Prior to Admission : Independent MACKENZIE Hx Falls Immediate/Within 3 Months : No Current Home Treatments : None Luda Kay RN - 04/10/2019 3:19 EST General Info Contact Password : [id number] Emergency Contact #1 : Gracie Chowdary Emergency Contact #1 Emergency Contact #1 Relationship : Signigicant Other Emergency Contact #2 : none Emergency Contact #2 Phone Number : none Emergency Contact #2 Relationship : none Chief Complaint : Admission from [facility] with SVT Primary Language : Hong Konger Communication Barrier : None Luda Kay RN - 04/10/2019 4:24 EST Patient Arrival Date/Time : 04/09/2019 18:45 EST Want Family/Rep/Phys Notified of Admit : No Luda Kay RN - 04/10/2019 3:19 EST Fall Risk Scales ABCs Fall Injury Risk Identification : Coagulation ABC Fall Injury Risk : Moderate to high injury risk Injury Moderate to High Risk Interventions : Patient room close to nurses station, Supervise toileting as indicated, Transport methods appropriate to patient MACKENZIE Hx Falls Immediate/Within 3 Months : No Mackenzie Secondary Diagnosis : Yes MACKENZIE Use of Ambulatory Aid : Bed rest/Nurse assist MACKENZIE IV Therapy or IV Access : Yes Mackenzie Gait/Transferring : Normal, bedrest, immobile Mackenzie Mental Status : Oriented to own ability Mackenzie Fall Risk Score : 35 MACKENZIE Fall Scale Risk Level : 25-45 Medium Risk [place] Fall Interventions : Assistive devices within reach, Bed in low position, Call device within reach, Frequent orientation to call device, Hourly comfort/safety rounds, Non-slip footwear, Personal items within reach, Reinforced to call for assistance before getting out of bed, Room free of clutter/spills, Upper side-rails up, Wheels locked, Wires/Cords secured Fall Moderate to High Risk Interventions : Transport methods appropriate to patient Fall Risk Scale Calc Temp : 0 Luda Kay RN - 04/10/2019 3:19 EST Health Histories Smoking Status : 10 or more cigarettes (1/2 pack or more)/day in last 30 days Smokeless Tobacco Status : Never Desires Tobacco Cessation Medication : Yes Luda Kay RN - 04/10/2019 3:19 EST Social History (As Of: 04/10/2019 03:32:17 EST) Height and Weight, Clinical Dosing Height Source : Stated Height Entry Format : Letcher Height, Feet : 6 ft(Converted to: 183 cm, 72 Inch) Height, Inches : 1 Inch(Converted to: 0 ft 1 Inch, 2.54 cm) Clinical Height : 185.42 cm Weight Source : Bed scale Weight Entry Format : Metric, kilograms Weight, Kilograms : 111.9 kg(Converted to: 246 lb 11 oz) Clinical Dosing Weight : 111.9 kg Body Surface Area (BSA) : 2.35 m2 Body Mass Index : 32.5 kg/m2 (HI) [place] Body Weight : 79 kg Luda Kay RN - 04/10/2019 3:19 EST Infectious Disease History Physical contact outside [place] in the last 30 days : No Infectious Disease History : None Tuberculosis Symptoms : None Luda Kay RN - 04/10/2019 3:19 EST Tetanus Immunization Status Previous Tetanus Immunizations : No qualifying data available. Tetanus Immunization : Unknown Luda Kay RN - 04/10/2019 3:19 EST Influenza Vaccine Asmt, Adult Influenza Immunization, Current Season : No Inactivated Flu Vaccine Contraindications : No contraindications to inactivated influenza vaccine Transplant Workup/Recent Transplant : No Order for Influenza Vaccine : Order for influenza vaccine sent to pharmacy Previous Vaccines from Immunization Schedule : No qualifying data available. Luda Kay RN - 04/10/2019 4:24 EST Pneumococcal Vaccine Previous Vaccines from Immunization Schedule : No qualifying data available. Pneumonia Immunization Received : No Pneumococcal Risk Assessment < Age 65 : None Luda Kay RN - 04/10/2019 3:19 EST Order Details Order Detail : N/A IV Order Detail : 1 Oxygen Order Detail : 1 Nurse Collect Order Detail : 1 Lift/Transfer : Minimal Central Line Order Detail : No Room Service : Needs Assistance Arterial Line : No Luda Kay RN - 04/10/2019 3:19 EST Nutrition History Eating Poorly Due to Decreased Appetite : No Unplanned Weight Loss in Past 3-6 Months : No Malnutrition Screening Tool Total(mal) : 0 Malnutrition Screening Tool Risk Level : Patient not at risk Luda Kay RN - 04/10/2019 3:19 EST [place] Suicide Severity Rating Scale (C-SSRS) CSSRS Past Month Wish to be : No CSSRS Past Month Suicidal Thoughts : No CSSRS Lifetime Suicide Behavior : No Suicide Severity Rating Score : 0 Suicide Severity Rating : No Additional Care Required at this time Luda Kay RN - 04/10/2019 3:19 EST Psychosocial History Currently in Unsafe Situation : No Luda Kay RN - 04/10/2019 3:19 EST Sleep Apnea Risk Assmt BiPAP/CPAP Ordered for Home Use : No Hx of Obstructive Sleep Apnea Diagnosis : Yes Luda Kay RN - 04/10/2019 4:24 EST Age over 50 Years Old : Yes Luda Kay RN - 04/10/2019 3:19 EST Luda Kay RN - 04/10/2019 4:24 EST Gender Male : Yes Luda Kay RN - 04/10/2019 3:19 EST Valuables and Belongings Valuables and Belongings : Clothing, Personal items Clothing : Common streetwear Clothing Disposition : Bedside, With patient Personal Items : Cell phone Personal Items Disposition : Bedside, With patient Luda Kay RN - 04/10/2019 3:19 EST documented in this encounter Plan of Treatment Not on file documented as of this encounter Visit Diagnoses Not on filedocumented in this encounter
--- OUTSIDE RECORDS SUMMARY | 2024-08-06 19:14 | XMS_ITS | Encounter Summary ---
Author Organization [employer] Address [address] [place] [address] Care Team Providers Care Nursing Agency Manager Name Role Phone Unavailable Primary Care Provider Lilia e Encounter Details Date Type Department Care Team (Late st Contact Info) Description 04/13/2019 Transcribed Document [facility] [place] Family Medicine [address] [place] [address] ProviderSharon MD [facility] [place], [place] [address] Social History Tobacco Use Types Packs/Day Years Used Date Smoking Tobacco: Never Assessed Sex and Gender Information Value Date Recorded Sex Assigned at Not on file Legal Sex Male 6:54 PM CDT Gender Identity Not on file Sexual Orientation Not on file documented as of this encounter Miscellaneous Notes * Cerner Conversion Note - Historical ProviderMD - 04/13/2019 6:27 PM RAILROAD CARMAN Patient: RAUDEL ZEPEDA Age: 54 years Sex: Male : 1965 Associated Diagnoses: None Author: JANICE BUCHANAN, DO Basic Information pt seen in icu, recently back from ablation, 04/13 he remains somewhat sleepy from the procedure family at the bedside no reported issues or problems overnight Review of Systems Psychiatric: Hallucinations. cannot reliably obtain from pt at present Health Status Allergies: Allergic Reactions (Selected) No [...] influenza virus vaccine, inactivated: 0.5 mL, IntraMuscular, [id number] Documented Medications Documented Metoprolol Tartrate 100 mg [...] a meal, 30 Cap, 0 Refill(s), Medications (44) Active Scheduled: (13) aspirin EC 81 mg [...] 160 mg 1 Tab, Oral, Daily Continuous: (3) dexmedetomidine 400 mcg + NaCl 0.9% TITRATE 100 mL 100 mL, IntraVENous heparin/NaCl 0.45% 25,000 Units + Premix Diluent NaCl 0.45% 250 mL 250 mL, IntraVENous NaCl 0.9% 1,000 mL 1,000 [...] History of obstructive sleep apnea / IMO [id number] / Confirmed SVT - Supraventricular tachycardia / SNOMED CT [id number] / Confirmed, Active Problems (7) Alcohol abuse Anxiety History of obstructive sleep apnea Hypertension Hypothyroid Smoker SVT - Supraventricular tachycardia Physical Examination VS/Measurements Vitals Signs (last 24 hrs) Last Charted Minimum Maximum Temp 99.4 (APR 13 16:05) 97.9 (APR 13 08:00) 99.3 (APR 13 15:35) Apical HR 64 (APR 13 17:49) 64 (APR 13 17:49) 66 (APR 13 08:07) Mon HR 72 (APR 13 16:05) 64 (APR 13 07:00) 83 (APR 13 15:35) Resp Rate 17 (APR 13 16:05) 17 (APR 13 16:05) H 22 (APR 13 15:35) SBP 135 (APR 13 16:05) 133 (APR 13 04:00) H 170 (APR 13 15:45) DBP 71 (APR 13 16:05) 70 (APR 13 16:00) H 107 (APR 13 15:45) MAP 98 (APR 13 16:05) 98 (APR 13 16:05) 132 (APR 13 15:45) SpO2 95 (APR 13:05) L 92 (APR 13 01:00) 98 (APR 13:) General: appears a bit older than stated age nontoxic no notable tremors, sleepy. Eye: Pupils are equal, round and reactive to light, Extraocular movements are intact. HENT: Normocephalic, Oral mucosa is moist. Neck: Non-tender, No lymphadenopathy. Respiratory: Respirations are non-labored, Breath sounds are equal, Symmetrical chest wall expansion. Cardiovascular: No murmur, Good pulses equal in all extremities, No edema. Gastrointestinal: Soft, Non-distended, Normal bowel sounds. Integumentary: Warm, Dry. Neurologic: No focal deficits, Cranial Nerves II-XII are grossly intact. Review / Management Results review: Labs (Last four charted values) WBC 6.0 (APR 13) 6.5 (APR 12) 7.4 (APR 11) 6.0 (APR 10) HB L 11.9 (APR 13) L 12.1 (APR 10) L 11.8 (APR 11) L 12.7 (APR 08) HCT L 36.0 (APR 13) L 36.5 (APR 12) L 36.2 (APR 11) L 37.9 (APR 10) Plt 214 (APR 13) 199 (B 10) 218 (APR 09) 251 (APR 08) Na L 132 (APR 13) L 132 (APR 10) L 133 (APR 11) L 133 (APR 08) K 4.2 (APR 13) 4.1 (FEB 10) 3.5 (FEB 09) 3.9 (FEB 08) Cl L 100 (FEB 11) L 99 (FEB 10) L 97 (FEB 09) L 95 (FEB 08) CO2 30 (FEB 11) 31 (FEB 10) H 33 (FEB 09) H 33 (B 08) BUN 8 (FEB 11) 7 (FEB 10) 8 (FEB 09) 8 (FEB 08) Cr 0.80 (FEB 11) 0.80 (FEB 10) 0.90 (FEB 09) 1.00 (FEB 08) Glu R 92 (FEB 11) 90 (FEB 10) 101 (FEB 09) H 214 (B 08) Ca 9.1 (FEB 11) 8.9 (FEB 10) 8.5 (FEB 09) L 8.0 (B 08) Lactic 0.8 (B 07) PT 10.7 (B 07) INR 1.0 (APR 09) AST 13 (FEB 10) 13 (FEB 09) 19 (FEB 08) 25 (B 07) ALT 16 (FEB 10) L 14 (B 09) 19 (FEB 08) 20 (B 07) ALK P H 149 (B 10) H 155 (B 09) H 170 (B 08) H 178 (B 07) T Bili 0.6 (B 10) 0.7 (FEB 09) 0.8 (B 08) 0.6 (B 07) PTN 6.5 (FEB 10) L 6.2 (FEB 09) L 6.1 (FEB 08) L 6.0 (B 07) ALB L 2.4 (FEB 10) L 2.5 (FEB 09) L 2.4 (FEB 08) L 2.7 (FEB 07) Lipase 124 (B 07) Troponin <0.015 (B 08) 0.022 (APR 07) . ECHO 04/10/2019 Impression: Left ventricle measures [...] prior hx ablation; currently SR following ablation today new finding acute systolic chf ef 40% evaluating with cardiology; stress Lexiscan 04/12/2019 IMPRESSION: Mildly abnormal Lexiscan Myoview perfusion study. Mild partial inferior reversible defect could represent slight difference in positioning between rest and post stress images or mixture of scar and ischemia involving the right coronary artery territory. Normal left ventricular systolic function post stress. alcohol withdrawl treating with precedex and bzds HTN- Alcohol abuse- nearly a fifth of liquor daily mild hyponatremia dec ivf, will recheck am mild anemia, stable remain in icu with close observation w/d symptoms cct 33mins gaurav garcía documented in this encounter Plan of Treatment Not on file documented as of this encounter Visit Diagnoses Not on filedocumented in this encounter
--- OUTSIDE RECORDS SUMMARY | 2024-08-06 19:14 | XMS_ITS | Encounter Summary ---
Author Organization [employer] Address [address] [place] [address] Care Team Providers Care Acoustical Logging Engineer Name Role Phone Unavailable Primary Care Provider Unavailabl e Encounter Details Date Type Department Care Team (Late st Contact Info) Description 04/15/2019 Transcribed Document [facility] [place] Family Medicine [address] [place] [address] ProviderSharon MD [address] [place], [place] [address] Social History Tobacco Use Types Packs/Day Years Used Date Smoking Tobacco: Never Assessed Sex and Gender Information Value Date Recorded Sex Assigned at Not on file Legal Sex Male 6:54 PM CDT Gender Identity Not on file Sexual Orientation Not on file documented as of this encounter Miscellaneous Notes * Cerner Conversion Note - Sharon Phillips MD - 04/15/2019 12:39 PM RELATIONSHIP ADVISOR Kev Melendez MD [address] [place] [phone] Re: RAUDEL ZEPEDA Date of Visit: 04/09/2019 Dear Kev Melendez Thank you for allowing me to participate in your patient's care. Please see the accompanying information that I would like to share with you regarding your patient. This Document is confidential and intended solely for the use of the individual or entity to which it is addressed. If you are not the named addressee, please disregard and do not disseminate, distribute or copy this information. If you are the intended recipient any disclosure of this information and its contents is strictly prohibited. Sincerely, JANICE BUCHANAN [address] [facility] [address] [place] [id number] The following document(s) were included in the letter: April 15, 2019 12:32:38 EST - (04/15/2019) Discharge Note documented in this encounter Plan of Treatment Not on file documented as of this encounter Visit Diagnoses Not on filedocumented in this encounter
--- OUTSIDE RECORDS SUMMARY | 2024-08-06 19:14 | XMS_ITS | Encounter Summary ---
Author Organization [employer] Address [address] [place] [address] Care Team Providers Care Fur Coat Sewer Name Role Phone Unavailable Primary Care Provider Unavailabl e Encounter Details Date Type Department Care Team (Late st Contact Info) Description 04/15/2019 Transcribed Document [facility] [place] Family Medicine [address] [place] [address] ProviderSharon MD [address] [place] [id number] Social History Tobacco Use Types Packs/Day Years Used Date Smoking Tobacco: Never Assessed Sex and Gender Information Value Date Recorded Sex Assigned at Not on file Legal Sex Male 6:54 PM CDT Gender Identity Not on file Sexual Orientation Not on file documented as of this encounter Miscellaneous Notes * Cerner Conversion Note - Historical ProviderMD - 04/15/2019 2:47 PM LOG TUMBLER Nursing Discharge Summary Entered On: 04/15/2019 14:47 EST Performed On: 04/15/2019 14:47 EST by KATIE KHANNA damper fitter Documentation Discharge Date/Time : 04/15/2019 15:46 EST KATIE KHANNA RN - 04/15/2019 16:33 EST Patient Disposition, General : Discharge Discharge To : Home with ambulatory/outpatient follow-up Mode Of Departure, General Discharge : Private vehicle Accompanied By, Discharge : Significant other IV Discontinued : Yes Medications Given to Patient : No Personal Belongings With Patient : Yes Pt's Own Supply of Medications Returned : No Prescriptions Given to Patient : Yes Discharge Instructions Reviewed With, Opportunity For Questions Given : Patient Patient Education Completed : Yes Number of Prescriptions Given : 6 Teaching Method : Explanation, Printed materials, Teach back method Teaching Evaluation : Verbalizes understanding Education Comment : pt verbalized understanding of POC and medication Worker's Compensation Paperwork Completed : No KATIE KHANNA RN - 04/15/2019 14:47 EST documented in this encounter Plan of Treatment Not on file documented as of this encounter Visit Diagnoses Not on filedocumented in this encounter
--- OUTSIDE RECORDS SUMMARY | 2024-08-06 19:14 | XMS_ITS | Encounter Summary ---
Author Organization [employer] Address [address] [place] [address] Care Team Providers Care Speech Communication Professor Name Role Phone Unavailable Primary Care Provider Unavailabl e Encounter Details Date Type Department Care Team (Late st Contact Info) Description 04/14/2019 Transcribed Document [facility] [place] Family Medicine [address] [place] [address] ProviderSharon MD [address] [place], [place] [id number] Social History Tobacco Use Types Packs/Day Years Used Date Smoking Tobacco: Never Assessed Sex and Gender Information Value Date Recorded Sex Assigned at Not on file Legal Sex Male 6:54 PM CDT Gender Identity Not on file Sexual Orientation Not on file documented as of this encounter Miscellaneous Notes * Cerner Conversion Note - Sharon ProviderMD - 04/14/2019 10:45 AM MANAGER BEHAVIORAL On Going Discharge Planning Entered On: 04/14/2019 10:47 EST Performed On: 04/14/2019 10:45 EST by JUS MATAMOROS Rn-Form MakerFundraising Sale Representative Progress Note Discharge Arrangements : Patient Post-Acute [...] the Patient Meeting Medical Necessity : Yes JUS MATAMOROS, Cira-Form Maker - 04/14/2019 10:45 EST Narrative Progress Note Narrative Progress Note : Day 5 - Pt on transfer to [facility] s/p ablation on 04/13/19; NSR; heparin/dexa gtts off; 02=2L; pt will need OLOP when medically stable for d/c; transport home with S.O.Gracie Chowdary. Historical Progress Note : Day 4 - Heparin gtt; Dexa gtt; pt off the unit for ablation; anticipate d/c home with S.O. when stable; OLOP consult on d/c. JUS MATAMOROS Rn-Form Maker - 04/13/19 14:01:56 Anticipate pt will d/c home with S.O. when stable; OLOP consult when ready for d/c. JUS MATAMOROS Rn-Form Maker - 04/12/19 12:03:20 JUS MATAMOROS Rn-Form Maker - 04/14/2019 10:45 EST documented in this encounter Plan of Treatment Not on file documented as of this encounter Visit Diagnoses Not on filedocumented in this encounter
--- OUTSIDE RECORDS SUMMARY | 2024-08-06 19:14 | XMS_ITS | Encounter Summary ---
Author Organization [employer] Address [address] [place] [address] Care Team Providers Care Pallet Stone Positioner Name Role Phone Unavailable Primary Care Provider Unavailabl e Encounter Details Date Type Department Care Team (Late st Contact Info) Description 04/12/2019 Transcribed Document [facility] [place] Family Medicine [address] [place] [address] ProviderSharon MD [facility] [place] [address] Social History Tobacco Use Types Packs/Day Years Used Date Smoking Tobacco: Never Assessed Sex and Gender Information Value Date Recorded Sex Assigned at Not on file Legal Sex Male 6:54 PM CDT Gender Identity Not on file Sexual Orientation Not on file documented as of this encounter Miscellaneous Notes * Cerner Conversion Note - Sharon Phillips MD - 04/12/2019 7:55 AM TEA BAG MACHINE TENDER Patient: RAUDEL ZEPEDA Age: 54 years Sex: Male : 1965 Associated Diagnoses: None Author: JEANNE CONLEY MD-CAR Basic Information Programmer Analyst Health It: Bisi Subjective NAD Health Status Current medications: (Selected) Inpatient Medications Ordered Aldactone: [...] influenza virus vaccine, inactivated: 0.5 mL, IntraMuscular, [id number], Home Medications (9) Active doxepin , Oral folic acid , Daily hydroCHLOROthiazide-losartan 12.5 mg-50 mg oral tablet , Oral, Daily imiquimod 5% topical cream 1 Application, Topical, 3x/Wk levothyroxine 75 mcg (0.075 mg) oral tablet 75 mcg = 1 Tab, Oral, Daily magnesium oxide 400 mg (241.3 mg elemental magnesium) oral tablet , Oral, Daily Metoprolol Tartrate 100 mg oral tablet , Oral, BID omeprazole 20 mg oral delayed release capsule 20 mg = 1 Cap, Oral, Daily Zoloft 50 mg oral tablet , Oral, Daily Problem list: Active Problems (7) Alcohol abuse Anxiety History of obstructive sleep apnea Hypertension Hypothyroid Smoker SVT - Supraventricular tachycardia Objective Intake and Output 24 hour intake: Total 940 ml 24 hour output: Total 1,500 ml VS/Measurements Vitals Signs (last 24 hrs) Last Charted Minimum Maximum Temp 98.1 (APR 12 00:00) 98.1 (APR 12 00:00) 98.1 (APR 11 08:00) Mon HR 80 (APR 12 05:00) 67 (APR 11 14:30) 82 (APR 11 08:45) SBP H 142 (APR 12 05:00) 123 (APR 11 15:30) H 169 (APR 11 12:30) DBP 81 (APR 12 05:00) 74 (APR 12 00:00) H 109 (APR 11 12:00) MAP 105 (APR 12 05:00) 94 (APR 12 00:00) 129 (APR 11 12:00) SpO2 95 (APR 12 05:00) L 70 (APR 11 08:30) 99 (APR 11 10:00) No qualifying data available General: Alert and oriented, No acute distress. Eye: Vision unchanged. HENT: No pharyngeal erythema. Neck: Supple, Non-tender, No carotid bruit. Respiratory: Breath sounds: Right, Upper lobe, Lower lobe, Crackles present. Cardiovascular: intermittently tachycardic. Edema: 2+. Gastrointestinal: Soft, Non-tender. Musculoskeletal: Normal range of motion, Normal strength. Integumentary: Warm, Dry, [place], Intact. Neurologic: Alert, Oriented. Psychiatric: Cooperative, Appropriate mood & affect. Results Review APR 12 04:33 L 132 L 99 7 / 90 4.1 31 0.80 \ ECHO 04/10/2019 Impression: Left ventricle measures [...] disease. No left ventricular masses or thrombi. Impression and Plan IMPRESSION: Aflutter with RVR -2:1 -hx of ablation at Decreased LVEF per ECHO 40% HTN- poorly controlled Alcohol abuse- quit using alcohol 2 weeks ago Acute CHF- systolic - new diagnosis PLAN; 04/12/2019 - Lexiscan myoview today if Precedex [...]
--- OUTSIDE RECORDS SUMMARY | 2024-08-06 19:14 | XMS_ITS | Encounter Summary ---
Author Organization [employer] Address [address] [place] [address] Care Team Providers Care Underwriting Operations Manager Name Role Phone Unavailable Primary Care Provider Unavailabl e Encounter Details Date Type Department Care Team (Late st Contact Info) Description 04/13/2019 Transcribed Document [facility] [place] Family Medicine [address] [place] [address] ProviderSharon [place] [facility] [place] [address] Social History Tobacco Use Types Packs/Day Years Used Date Smoking Tobacco: Never Assessed Sex and Gender Information Value Date Recorded Sex Assigned at Not on file Legal Sex Male 6:54 PM CDT Gender Identity Not on file Sexual Orientation Not on file documented as of this encounter Miscellaneous Notes * Cerner Conversion Note - Sharon Phillips MD - 04/13/2019 7:16 AM ELEMENTARY SCHOOL BAND DIRECTOR Patient: RAUDEL ZEPEDA Age: 54 years Sex: Male : 1965 Associated Diagnoses: None Author: JEANNE CONLEY MD-CAR Basic Information Injection Wax Molder: Bisi Subjective NAD Health Status Current medications: [...] influenza virus vaccine, inactivated: 0.5 mL, IntraMuscular, [id number], Home Medications (9) Active doxepin 10 mg, [...] 50 mg = 1 Tab, Oral, Daily Problem list: Active Problems (7) Alcohol abuse Anxiety History of obstructive sleep apnea Hypertension Hypothyroid Smoker SVT - Supraventricular tachycardia Objective Intake and Output 24 hour intake: Total 650 ml 24 hour output: Total 2,275 ml VS/Measurements Vitals Signs (last 24 hrs) Last Charted Minimum Maximum Temp 97.6 (APR 13 04:00) 97.6 (APR 13 04:00) 98.1 (APR 12 08:00) Apical HR 69 (APR 10 10:45) 69 (APR 12 10:45) 69 (APR 10 10:45) Mon HR 64 (APR 13 07:00) 64 (APR 13 07:00) 78 (APR 12 13:00) Resp Rate H 48 (APR 12 14:00) H 22 (APR 12 13:00) H 48 (APR 12 14:00) SBP 137 (APR 13 07:00) 120 (APR 12 17:00) H 166 (APR 12 15:00) DBP 86 (APR 13 07:00) 68 (APR 12 17:00) H 106 (APR 12 21:00) MAP 106 (APR 13 07:00) 89 (APR 12 17:00) 121 (APR 12 22:00) SpO2 98 (APR 13 07:00) L 92 (APR 12 12:00) 98 (APR 12 15:00) No qualifying data available General: Alert and oriented, No acute distress. Eye: Vision unchanged. HENT: No pharyngeal erythema. Neck: Supple, Non-tender, No carotid bruit. Respiratory: Breath sounds: Right, Upper lobe, Lower lobe, Crackles present. Cardiovascular: intermittently tachycardic. Edema: 2+. Gastrointestinal: Soft, Non-tender. Musculoskeletal: Normal range of motion, Normal strength. Integumentary: Warm, Dry, [place], Intact. Neurologic: Alert, Oriented. Psychiatric: Cooperative, Appropriate mood & affect. Results Review APR 13 04:09 L 132 L 100 [...] quit using alcohol 2 weeks ago PLAN; 04/13/2019 No indication for invasive ischemic work-up [...]
--- OUTSIDE RECORDS SUMMARY | 2024-08-06 19:14 | XMS_ITS | Encounter Summary ---
Author Organization [employer] Address [address] [place] [address] Care Team Providers Care Dentist Attendant Name Role Phone Unavailable Primary Care Provider Unavailabl e Encounter Details Date Type Department Care Team (Late st Contact Info) Description 04/15/2019 Transcribed Document [facility] Family Medicine [address] [place] [address] ProviderSharon MD [address] [place] [address] Social History Tobacco Use Types Packs/Day Years Used Date Smoking Tobacco: Never Assessed Sex and Gender Information Value Date Recorded Sex Assigned at Not on file Legal Sex Male 6:54 PM CDT Gender Identity Not on file Sexual Orientation Not on file documented as of this encounter Miscellaneous Notes * Cerner Conversion Note - Historical ProviderMD - 04/15/2019 2:46 PM COUNSELOR/ART THERAPIST Stroke/Warfarin Instructions Entered On: 04/15/2019 14:46 EST Performed On: 04/15/2019 14:46 EST by KATIE KHANNA RN Stroke/Warfarin Instructions Stroke/TIA Discharge Ins : N/A Warfarin Discharge Ins : N/A KATIE KHANNA RN - 04/15/2019 14:46 EST Electronically signed by Julien Villarreal Conversion Machine Operator Packaging Cerner at 06/19/2022 4:36 PM CDT documented in this encounter Plan of Treatment Not on file documented as of this encounter Visit Diagnoses Not on filedocumented in this encounter
--- OUTSIDE RECORDS SUMMARY | 2024-08-06 19:14 | XMS_ITS | Encounter Summary ---
Author Organization [employer] Address [address] [place] [address] Care Team Providers Care International Guest Coordinator Name Role Phone Unavailable Primary Care Provider Unavailabl e Encounter Details Date Type Department Care Team (Late st Contact Info) Description 04/14/2019 Transcribed Document [facility] [place] [address] [place] [address] ProviderSharon MD [address] [place] [address] Social History Tobacco Use Types Packs/Day Years Used Date Smoking Tobacco: Never Assessed Sex and Gender Information Value Date Recorded Sex Assigned at Not on file Legal Sex Male 6:54 PM CDT Gender Identity Not on file Sexual Orientation Not on file documented as of this encounter Miscellaneous Notes * Cerner Conversion Note - Historical ProviderMD - 04/14/2019 9:56 AM DIRECTOR INTERNAL AUDIT Valuables and Belongings Entered On: 04/14/2019 11:23 EST Performed On: 04/14/2019 9:56 EST by SYLVAIN FELICIANO RN Valuables and Belongings Valuables and Belongings : Clothing, Personal items Clothing : Common streetwear Clothing Disposition : Bedside, With patient Personal Items : Cell phone Personal Items Disposition : Bedside, With patient SYLVAIN FELICIANO RN - 04/14/2019 11:23 EST Electronically signed by Phil [facility] Conversion Gambling Supervisor Cerner at 06/19/2022 4:33 PM CDT documented in this encounter Plan of Treatment Not on file documented as of this encounter Visit Diagnoses Not on filedocumented in this encounter
--- OUTSIDE RECORDS SUMMARY | 2024-08-06 19:14 | XMS_ITS | Encounter Summary ---
Author Organization [employer] Address [address] [place] [address] Care Team Providers Care Motor Carrier Inspector Name Role Phone Unavailable Primary Care Provider Unavailabl e Encounter Details Date Type Department Care Team (Late st Contact Info) Description 04/14/2019 Transcribed Document [facility] [place] Family Medicine [address] [place] [address] ProviderSharon MD [address] [place] [address] Social History Tobacco Use Types Packs/Day Years Used Date Smoking Tobacco: Never Assessed Sex and Gender Information Value Date Recorded Sex Assigned at Not on file Legal Sex Male 6:54 PM CDT Gender Identity Not on file Sexual Orientation Not on file documented as of this encounter Miscellaneous Notes * Cerner Conversion Note - Historical ProviderMD - 04/14/2019 9:56 AM ROUGH CARPENTER Carpenter Helper Maintenance Details Entered On: 04/14/2019 11:23 EST Performed On: 04/14/2019 9:56 EST by SYLVAIN FELICIANO RN Order Details Transport Mode Order Detail : Portable Isolation Precautions Order Detail : Standard Precautions Order Detail : N/A IV Order Detail : 1 Oxygen Order Detail : 0 Nurse Collect Order Detail : 0 Lift/Transfer : Minimal Central Line Order Detail : No Room Service : Appropriate Arterial Line : No SYLVAIN FELICIANO RN - 04/14/2019 11:22 EST Electronically signed by Julien Villarreal Conversion Certified Bench Jeweler Technician Cerner at 06/19/2022 4:28 PM CDT documented in this encounter Plan of Treatment Not on file documented as of this encounter Visit Diagnoses Not on filedocumented in this encounter
--- OUTSIDE RECORDS SUMMARY | 2024-08-06 19:14 | XMS_ITS | Encounter Summary ---
Author Organization [employer] Address [address] [place] [address] Care Team Providers Care Delivery Truck Driver Heavy Name Role Phone Unavailable Primary Care Provider Unavailabl e Encounter Details Date Type Department Care Team (Late st Contact Info) Description 04/14/2019 Transcribed Document [facility] [place] Family Medicine [address] [place] [address] ProviderSharon MD [facility] [place] [address] Social History Tobacco Use Types Packs/Day Years Used Date Smoking Tobacco: Never Assessed Sex and Gender Information Value Date Recorded Sex Assigned at Not on file Legal Sex Male 6:54 PM CDT Gender Identity Not on file Sexual Orientation Not on file documented as of this encounter Miscellaneous Notes * Cerner Conversion Note - Sharon Phillips MD - 04/14/2019 11:56 AM LOCKSTITCH 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 Patient: RAUDEL ZEPEDA Age: 54 years Sex: [...] All Problems Alcohol abuse / SNOMED CT 25391914 / Confirmed Anxiety / SNOMED CT 66456079 / Confirmed History of obstructive sleep apnea / IMO 84059076 / Confirmed Hypertension / SNOMED CT 1710902378 / Confirmed Hypothyroid / SNOMED CT 15069936 / Confirmed Smoker / SNOMED CT 208634209 / Confirmed SVT - Supraventricular tachycardia / SNOMED CT 4840425533 / Confirmed, Active Problems (7) Alcohol abuse Anxiety History of obstructive sleep apnea Hypertension Hypothyroid Smoker SVT - Supraventricular tachycardia Objective Intake and Output 24 hour intake, 24 hour output VS/Measurements Vitals Signs (last 24 hrs) Last Charted Minimum Maximum Temp 98.1 (APR 14 08:00) 97.8 (APR 14 00:00) 99.3 (APR 13 15:35) Apical HR 79 (APR 14 08:47) 64 (APR 13 17:49) 79 (APR 14 08:47) Mon HR 80 (APR 14 10:00) 63 (APR 13 17:00) 83 (APR 13 15:35) Resp Rate 17 (APR 13 16:05) 17 (APR 13 16:05) H 22 (APR 13 15:35) SBP 122 (APR 14 10:00) 108 (APR 14 02:00) H 176 (APR 14 07:00) DBP 80 (APR 14 10:00) 63 (APR 14 02:00) H 107 (APR 13 15:45) MAP 96 (APR 14 10:00) 80 (APR 14 02:00) 132 (APR 13 15:45) SpO2 L 91 (APR 14 10:00) L 83 (APR 14 09:00) 100 (APR 13 20:00) General: Alert and oriented, No acute distress. Eye: Vision unchanged. HENT: No pharyngeal erythema. Neck: Supple, Non-tender, No carotid bruit. Respiratory: Breath sounds: Right, Upper lobe, Lower lobe, mild Crackles present. Cardiovascular: intermittently tachycardic. Edema: 2+. Gastrointestinal: Soft, Non-tender. Musculoskeletal: Normal range of motion, Normal strength. Integumentary: Warm, Dry, [place], Intact. Neurologic: Alert, Oriented. Psychiatric: Cooperative, Appropriate mood & affect. Results Review Telemetry Admission Weight Todays Weight APR 14 03:59 L 134 L 100 8 / 79 4.6 31 0.70 \ B 03:59 \ L 12.7 / 6.3 251 / L 38.1 \ Telemetry/ECG I personally reviewed the last 24 hour telemetry that show normal sinus rhythm with HR 80's Cardiac echo 04/14/19 Limited Echo shows EF 55% No effusion Impression and Plan IMPRESSION: 55 yo male followed by Dr. Mathews [id number] 1 of at least one echo pending [...] excitation of a septal accessory pathway. 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 Limited ECHO completed at bedside and visualized as normal. Can be transferred to telemetry per EP standpoint. Patient with follow up with Dr. Mathews 3-4 weeks. Can be discharged from the EP standpoint 04/13/19 Discontinue Heparin gtt. Proceed with EPS/ablation this afternoon. talked with primary exercise physiology professor that suggest WPW ablation and flutter 04/12/19 [...] replacement Electronically signed by Radha Villarreal Conversion Human Resource Professional Cerner at 06/19/2022 4:29 PM CDT documented in this encounter Plan of Treatment Not on file documented as of this encounter Visit Diagnoses Not on filedocumented in this encounter
--- OUTSIDE RECORDS SUMMARY | 2024-08-06 19:14 | XMS_ITS | Encounter Summary ---
Author Organization [employer] Address [address] [place] [address] Care Team Providers Care Global Human Resources Director Name Role Phone Unavailable Primary Care Provider Unavailabl e Encounter Details Date Type Department Care Team (Late st Contact Info) Description 04/14/2019 Transcribed Document [facility] [place] Family Medicine [address] [place] [address] ProviderSharon MD [address] [place] [address] Social History Tobacco Use Types Packs/Day Years Used Date Smoking Tobacco: Never Assessed Sex and Gender Information Value Date Recorded Sex Assigned at Not on file Legal Sex Male 6:54 PM CDT Gender Identity Not on file Sexual Orientation Not on file documented as of this encounter Miscellaneous Notes * Cerner Conversion Note - Historical ProviderMD - 04/14/2019 5:00 PM GAME DESIGNER Chart Check - Review Order Profile Entered On: 04/14/2019 15:25 EST Performed On: 04/14/2019 17:00 EST by Marla Murrell RN Chart Check Powerplans Initiated/Discontinued as Appropriate : Yes All Active Orders Reviewed : Yes Marla Murrell RN - 04/14/2019 15:25 EST documented in this encounter Plan of Treatment Not on file documented as of this encounter Visit Diagnoses Not on filedocumented in this encounter
--- OUTSIDE RECORDS SUMMARY | 2024-08-06 19:14 | XMS_ITS | Encounter Summary ---
Author Organization [employer] Address [address] [place] [address] Care Team Providers Care Automatic Lehr Operator Name Role Phone Unavailable Primary Care Provider Unavailabl e Encounter Details Date Type Department Care Team (Late st Contact Info) Description 04/13/2019 Transcribed Document [facility] [place] [address] [place] [address] ProviderSharon MD [address], [place] [address] Social History Tobacco Use Types Packs/Day Years Used Date Smoking Tobacco: Never Assessed Sex and Gender Information Value Date Recorded Sex Assigned at Not on file Legal Sex Male 6:54 PM CDT Gender Identity Not on file Sexual Orientation Not on file documented as of this encounter Miscellaneous Notes * Cerner Conversion Note - Sharon ProviderMD - 04/13/2019 9:30 AM DEVELOPER ARCHITECT [facility] Main OR PACU Summary Primary Physician: SHILO MONTES DE OCA MD-[facility] Finalized Date/Time: 04/13/19 16:18:29 Pt. Name: RAUDEL ZEPEDA D.O.B./Sex: 1965 Male Med Rec #: [id number] Physician: MARLEY BERRIOS MD Financial #: [id number] Pt. Type: I Room/Bed: CV14/1 Admit/Disch: 04/09/19 18:47:00 - Institution: [facility] Main OR PACU I Case Times Entry 1 In PACU I 04/13/19 15:35:00 Ready for PACU 04/13/19 16:13:00 Discharge Discharge from PACU 04/13/19 16:13:00 I Last Modified By: DEBORA MENDENHALL RN 04/13/19 16:17:58 [facility] Main OR PACU I Case Times Audit 04/13/19 16:17:58 Scale Operator: [id number] Modifier: [id number] <+> 1 Ready for PACU Discharge <+> 1 Discharge from PACU I Finalized By: DEBORA MENDENHALL RN Document Signatures Signed By: DEBORA MENDENHALL RN 04/13/19 16:18 Electronically signed by Phil [facility] Conversion Customer Development Representative Cerner at 06/19/2022 4:35 PM CDT documented in this encounter Plan of Treatment Not on file documented as of this encounter Visit Diagnoses Not on filedocumented in this encounter
--- OUTSIDE RECORDS SUMMARY | 2024-08-06 19:14 | XMS_ITS | Encounter Summary ---
Author Organization [employer] Address [address] [place] [address] Care Team Providers Care Manager Nc Name Role Phone Unavailable Primary Care Provider Unavailabl e Encounter Details Date Type Department Care Team (Late st Contact Info) Description 04/12/2019 Transcribed Document [facility] [place] Family Medicine [address] [place] [address] ProviderSharon MD [address] [place] [address] Social History Tobacco Use Types Packs/Day Years Used Date Smoking Tobacco: Never Assessed Sex and Gender Information Value Date Recorded Sex Assigned at Not on file Legal Sex Male 6:54 PM CDT Gender Identity Not on file Sexual Orientation Not on file documented as of this encounter Miscellaneous Notes * Cerner Conversion Note - Historical ProviderMD - 04/12/2019 8:01 AM WELDING 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 ELECTROSLAG Height and Weight, Routine Entered On: 04/12/2019 8:01 EST Performed On: 04/12/2019 8:01 EST by MORRO GILLIAM RN Height and Weight, Routine Routine Weight Source : Bed scale Routine Weight Entry Format : Metric Height Source : Stated Height Entry Format : Chase Height, Feet : 6 ft Height, Inches : 1 Inch Clinical Height : 185.42 cm MORRO GILLIAM RN - 04/12/2019 8:01 EST documented in this encounter Plan of Treatment Not on file documented as of this encounter Visit Diagnoses Not on filedocumented in this encounter
--- OUTSIDE RECORDS SUMMARY | 2024-08-06 19:14 | XMS_ITS | Encounter Summary ---
Author Organization [employer] Address [address] [place] [address] Care Team Providers Care Cigarette Making Machine Hopper Feeder Name Role Phone Unavailable Primary Care Provider Unavailabl e Encounter Details Date Type Department Care Team (Late st Contact Info) Description 04/10/2019 Transcribed Document [facility] [place] Family Medicine [address] [place] [address] ProviderShaorn MD [address] [place] [address] Social History Tobacco Use Types Packs/Day Years Used Date Smoking Tobacco: Never Assessed Sex and Gender Information Value Date Recorded Sex Assigned at Not on file Legal Sex Male 6:54 PM CDT Gender Identity Not on file Sexual Orientation Not on file documented as of this encounter Miscellaneous Notes * Cerner Conversion Note - Historical ProviderMD - 04/10/2019 9:01 PM QUILL CLEANING 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 Pain Assessment Entered On: 04/11/2019 9:37 EST Performed On: 04/11/2019 8:14 EST by Karen Painter RN Intervention Information: oxyCODONE Performed by Luda Kay RN on 04/11/2019 07:14:00 EST oxyCODONE,5mg Oral,Pain (Moderate 4-6) Pain Assessment Pain Assessment : Follow-up assessment Pain Scale Goal : 3 Pain Scale Used : 0-10 Scale Karen Painter RN - 04/11/2019 9:37 EST Pain Scale Intensity : 1 Karen Painter RN - 04/11/2019 9:37 EST Image 4 - Images currently included in the form version of this document have not been included in the text rendition version of the form. documented in this encounter Plan of Treatment Not on file documented as of this encounter Visit Diagnoses Not on filedocumented in this encounter
--- OUTSIDE RECORDS SUMMARY | 2024-08-06 19:14 | XMS_ITS | Encounter Summary ---
Author Organization [employer] Address [address] [place] [address] Care Team Providers Care Salad Chef Name Role Phone Unavailable Primary Care Provider Unavailabl e Encounter Details Date Type Department Care Team (Late st Contact Info) Description 04/15/2019 Transcribed Document [facility] [place] [address] [place] [address] ProviderSharon MD [facility] [place] [address] Social History Tobacco Use Types Packs/Day Years Used Date Smoking Tobacco: Never Assessed Sex and Gender Information Value Date Recorded Sex Assigned at Not on file Legal Sex Male 6:54 PM CDT Gender Identity Not on file Sexual Orientation Not on file documented as of this encounter Miscellaneous Notes * Cerner Conversion Note - Historical ProviderMD - 04/15/2019 4:10 PM SAMPLE CARRIER Discharge Summary, PT Entered On: 04/15/2019 16:10 EST Performed On: 04/15/2019 16:10 EST by SCOTT BILLINGS PTA Discharge Summary Discharge Summary Provider Notified : Nursing, Physical Therapy Reason for Discharge : Discharged from hospital Discharged to, Therapy : Home, with family care SCOTT BILLINGS PTA - 04/15/2019 16:10 EST Discharge Summary Comment, PT : pt discharged from hospital to home with family care, pt not seen after evaluation Approved by PT OLGA CASTILLO PT - 04/16/2019 7:12 EST Short Term Goals Mobility/Bed Mobility STG PT Grid Goal #1 Activity : Sit to stand Assist : Assist, minimal Date to Meet : 04/21/2019 EST Goal Status : Not met SCOTT BILLINGS PTA - 04/15/2019 16:10 EST Ambulation STG Grid Goal #1 Device : Walker, front wheel Distance : 450' Assist : Assist, minimal Date to Meet : 04/21/2019 EST Goal Status : Not met SCOTT BILLINGS PTA - 04/15/2019 16:10 EST Nursing Home Goals Mobility/Bed Mobility LTG PT Grid Goal #1 Activity : Sit to stand Assist : Supervision or set-up Date to Meet : 04/28/2019 EST Goal Status : Not met SCOTT BILLINGS PTA - 04/15/2019 16:10 EST Ambulation LTG Grid Goal #1 Device : None Distance : 500' Assist : Supervision or set-up Date to Meet : 04/28/2019 EST Goal Status : Not met SCOTT BILLINGS PTA - 04/15/2019 16:10 EST Electronically signed by Phil [facility] Conversion Circulation Supervisor Cerner at 06/19/2022 4:30 PM CDT documented in this encounter Plan of Treatment Not on file documented as of this encounter Visit Diagnoses Not on filedocumented in this encounter
--- OUTSIDE RECORDS SUMMARY | 2024-08-06 19:14 | XMS_ITS | Encounter Summary ---
Author Organization [employer] Address [address] [place] [address] Care Team Providers Care Revenue Tax Specialist Name Role Phone Unavailable Primary Care Provider Unavailabl e Encounter Details Date Type Department Care Team (Late st Contact Info) Description 04/12/2019 Transcribed Document [facility] [place] [address] [place] [address] ProviderSharon MD [address], [place] [address] Social History Tobacco Use Types Packs/Day Years Used Date Smoking Tobacco: Never Assessed Sex and Gender Information Value Date Recorded Sex Assigned at Not on file Legal Sex Male 6:54 PM CDT Gender Identity Not on file Sexual Orientation Not on file documented as of this encounter Miscellaneous Notes * Cerner Conversion Note - Historical ProviderMD - 04/12/2019 10:23 AM LOAN COORDINATOR Education-Surgery Entered On: 04/12/2019 13:15 EST Performed On: 04/12/2019 10:23 EST by ASHLEY BREWER RN Teaching/Learning Assessment Barriers To Learning : Vision Impairment, Other: potential for withdrawal Learning Style Preferences Patient : Verbal explanation ASHLEY BREWER RN - 04/12/2019 13:15 EST Electronically signed by Phil [facility] Conversion Sand Mill Operator Core Sand Cerner at 06/19/2022 4:38 PM CDT documented in this encounter Plan of Treatment Not on file documented as of this encounter Visit Diagnoses Not on filedocumented in this encounter
--- OUTSIDE RECORDS SUMMARY | 2024-08-06 19:14 | XMS_ITS | Encounter Summary ---
Author Organization [employer] Address [address] [place] [address] Care Team Providers Care Landfill Gas Technician Name Role Phone Unavailable Primary Care Provider Unavailabl e Encounter Details Date Type Department Care Team (Late st Contact Info) Description 04/15/[address] [facility] [place] Family Medicine [address] [place] [address] ProviderSharon MD [address] [place], [place] [id number] Social History Tobacco Use Types Packs/Day Years Used Date Smoking Tobacco: Never Assessed Sex and Gender Information Value Date Recorded Sex Assigned at Not on file Legal Sex Male 6:54 PM CDT Gender Identity Not on file Sexual Orientation Not on file documented as of this encounter Miscellaneous Notes * Cerner Conversion Note - Sharon Phillips MD - 04/15/2019 2:38 PM MAPPING ENGINEER Patient Education Materials Follows: How to Take a Pulse Your pulse [...] year of age: Normal heart rate of 100?160 bpm. ??? Children 1?2 years of age: Normal heart rate of 90?150 bpm. ??? Children 2?5 years of age: Normal heart rate of 80?140 bpm. ??? Children 6?12 years of age: Normal heart rate of 70?120 bpm. ??? Everyone over 12 years of age: Normal heart rate of 60?100 bpm. There can be a lot of [...] fingers just to one side of your Mono?s apple so that you feel a pulsing [...] 08/24/2003 Document Revised: 09/06/2016 Document Reviewed: 07/23/2016 [employer] Interactive Patient Education ? 2019 [employer]. How to Take Your Blood Pressure You [...] monitor. You can buy one at a [employer] or online. When choosing one: ??? Choose [...] the numbers on the screen. 11. Wait 2?3 minutes and then repeat steps 1?10. What do the numbers mean? Two numbers [...] number: below 80. Elevated ??? First number: 120?129. ??? Second number: below 80. Hypertension stage 1 ??? First number: 130?139. ??? Second number: 80?89. Hypertension stage 2 ??? First number: 140 [...] 01/30/2009 Document Revised: 01/15/2017 Document Reviewed: 07/26/2016 [employer]uet[employer] Interactive Patient Education ? 2019 [employer] Heart-Healthy Eating Plan Many factors influence your [...] plate with vegetables and green salads. Eat 4?5 servings of vegetables per day. A serving of vegetables equals 1 cup of raw leafy vegetables, ? cup of raw or cooked cut-up vegetables, or ? cup of vegetable juice. ??? Fill one fourth of your plate with whole grains. Look for the word whole as the first word in the ingredient list. ??? Fill one fourth of your plate with lean protein foods. ??? Eat 4?5 servings of fruit per day. A serving of fruit equals one medium whole fruit, ? cup of dried fruit, ? cup of fresh, frozen, or canned fruit, or ? cup of 100% fruit juice. ??? Eat more foods that contain soluble fiber. Examples of foods that contain this type of fiber are apples, broccoli, carrots, beans, peas, and barley. Aim to get 20?30 g of fiber per day. ??? Eat [...] weight if you are overweight. Losing just 5?10% of your initial body weight can help your overall health and prevent diseases such as diabetes and heart disease. ??? Increase your consumption of nuts, legumes, and seeds to 4?5 servings per week. One serving of dried beans or legumes equals ? cup after being cooked, one serving of nuts equals 1? ounces, and one serving of seeds equals ? ounce or 1 tablespoon. ??? You may need to monitor your salt (sodium) intake, especially if you have high blood pressure. Talk with your health care provider or dietitian to get more information about reducing sodium. What foods can I eat? Grains Breads, including Ghanaian, white, nanci, wheat, raisin, rye, oatmeal, and Niuean. Tortillas that are neither fried nor made with lard or trans fat. Low-fat rolls, including hotdog and hamburger buns and Zambian muffins. Biscuits. Muffins. Waffles. Pancakes. Light popcorn. Whole-grain cereals. Flatbread. [place] toast. Pretzels. Breadsticks. Rusks. Low-fat snacks and [...] egg substitutes. Dried beans, peas, lentils, and tofu.?Seeds and most nuts. Dairy Low-fat or nonfat [...] cooking, baking, salads, and as spreads. Other Mehama powder. Coffee and tea. All seasonings and [...] cheese. Whole milk cheeses, including blue (john), [place] Dayron, Brie, Omar, Yemeni, Havarti, Turkmen, cheddar, Camembert, and [place]. Whole or 2% milk that is liquid, [...] that has suet, meat fat, or shortening. Mehama butter, hydrogenated oils, palm oil, coconut oil, [...] 11/26/2008 Document Revised: 09/06/2016 Document Reviewed: 08/11/2014 Bluetrain.io Interactive Patient Education ? 2019 [employer] Electrical Cardioversion Electrical cardioversion is the delivery [...] including vitamins, herbs, eye drops, creams, and uzel-mar-vawvivx medicines. ??? Any problems you or family [...] the procedure. ??? Your heart stopping (cardiac arrest?). This is rare. What happens before the [...] 02/07/2003 Document Revised: 10/16/2016 Document Reviewed: 08/23/2016 Bluetrain.io Interactive Patient Education ? 2017 [employer] Emergency Medicine Supraventricular Tachycardia, Adult Supraventricular tachycardia (SVT) is a kind of abnormal heartbeat. It makes your heart beat very fast and then beat at a normal speed. A normal heart beats 60?100 times a minute. This condition can make [...] beer. ? 5 oz of wine. ? 1? oz of hard liquor. Caffeine ??? If [...] as told by your doctor. ??? Take [id number]-cpp-lrhmuwm and prescription medicines only as told by [...] 02/17/2006 Document Revised: 10/24/2016 Document Reviewed: 10/24/2016 [employer] Interactive Patient Education ? 2019 [employer] Electronically signed by Radha Villarreal Conversion Elementary Education Teacher Dreadner at 06/19/2022 4:34 PM CDT documented in this encounter Plan of Treatment Not on file documented as of this encounter Visit Diagnoses Not on filedocumented in this encounter
--- OUTSIDE RECORDS SUMMARY | 2024-08-06 19:14 | XMS_ITS | Encounter Summary ---
Author Organization [employer] Address [address] [place] [address] Care Team Providers Care Binder Stripper Hand Name Role Phone Unavailable Primary Care Provider Unavailabl e Encounter Details Date Type Department Care Team (Late st Contact Info) Description 04/09/2019 Transcribed Document [facility] [place] [address] [place] [address] ProviderSharon MD [address] [place], [place] [id number] Social History Tobacco Use Types Packs/Day Years Used Date Smoking Tobacco: Never Assessed Sex and Gender Information Value Date Recorded Sex Assigned at Not on file Legal Sex Male 6:54 PM CDT Gender Identity Not on file Sexual Orientation Not on file documented as of this encounter Miscellaneous Notes * Cerner Conversion Note - Historical ProviderMD - 04/09/2019 7:05 PM MARKETING EXECUTIVE Height and Weight, Clinical Dosing Entered On: 04/09/2019 19:05 EST Performed On: 04/09/2019 19:05 EST by MARILYN Shaw RN Height and Weight, Clinical Dosing Height Source : Stated Height Entry Format : [place] Height, Feet : 6 ft(Converted to: 183 [...] Body Mass Index : 32.5 kg/m2 (HI) [place] Body Weight : 79 kg MARILYN Shaw RN - 04/09/2019 19:05 EST Electronically signed by [facility] Conversion Learning Disabilities Resource Teacher Cerner at 06/19/2022 4:30 PM CDT documented in this encounter Plan of Treatment Not on file documented as of this encounter Visit Diagnoses Not on filedocumented in this encounter
--- OUTSIDE RECORDS SUMMARY | 2024-08-06 19:14 | XMS_ITS | Encounter Summary ---
Author Organization [employer] Address [address] [place] [address] Care Team Providers Care Coal Sampler Name Role Phone Unavailable Primary Care Provider Unavailabl e Encounter Details Date Type Department Care Team (Late st Contact Info) Description 04/15/2019 Transcribed Document [facility] [place] Family Medicine [address] [place] [address] ProviderSharon [place] [address] Social History Tobacco Use Types Packs/Day Years Used Date Smoking Tobacco: Never Assessed Sex and Gender Information Value Date Recorded Sex Assigned at Not on file Legal Sex Male 6:54 PM CDT Gender Identity Not on file Sexual Orientation Not on file documented as of this encounter Miscellaneous Notes * Cerner Conversion Note - Sharon Phillips MD - 04/15/2019 11:07 AM BRASS SORTER Patient: RAUDEL ZEPEDA Age: 54 years Sex: [...] cloNIDine: 0.1 mg, Oral, Q4H, PRN: Hypertension haloperidol: 2 mg, IntraMuscular, Q4H, PRN: Agitation [...] All Problems Alcohol abuse / SNOMED CT 84890347 / Confirmed Anxiety / SNOMED CT 63384421 / Confirmed History of obstructive sleep apnea / IMO 55688052 / Confirmed Hypertension / SNOMED CT 9455194654 / Confirmed Hypothyroid / SNOMED CT 19245245 / Confirmed Smoker / SNOMED CT 701779808 / Confirmed SVT - Supraventricular tachycardia / SNOMED CT 6762763218 / Confirmed, Active Problems (7) Alcohol abuse Anxiety History of obstructive sleep apnea Hypertension Hypothyroid Smoker SVT - Supraventricular tachycardia Objective Intake and Output 24 hour intake, 24 hour output VS/Measurements Vitals Signs (last 24 hrs) Last Charted Minimum Maximum Temp 97.6 (APR 15 10:12) 97.6 (APR 15 10:12) 98.0 (APR 14 11:09) Apical HR 80 (APR 15 08:49) 73 (APR 15 04:35) 86 (APR 14 19:49) Mon HR 83 (APR 15 10:12) 69 (APR 15 03:15) 85 (APR 14 18:05) Resp Rate 16 (APR 15 03:15) 16 (APR 14 22:15) 20 (APR 14 18:05) SBP 135 (APR 15 10:12) 128 (APR 14 19:47) H 169 (APR 15 04:35) DBP H 94 (APR 15 10:12) 86 (APR 14 19:47) H 102 (APR 14 16:10) MAP 106 (APR 15 10:12) 99 (APR 14 19:47) 124 (APR 15 03:15) SpO2 L 90 (APR 15 04:39) L 90 (APR 15 04:39) 99 (APR 14 12:00) General: Alert and oriented, No acute distress. Eye: Vision unchanged. HENT: No pharyngeal erythema. Neck: Supple, Non-tender, No carotid bruit. Respiratory: Breath sounds: Right, Upper lobe, Lower lobe, mild Crackles present. Cardiovascular: intermittently tachycardic. Edema: 2+. Gastrointestinal: Soft, Non-tender. Musculoskeletal: Normal range of motion, Normal strength. Integumentary: Warm, Dry, [place], Intact. Neurologic: Alert, Oriented. Psychiatric: Cooperative, Appropriate mood & affect. Results Review Telemetry Admission Weight Todays Weight APR 15 03:01 L 132 L 101 11 / 95 4.2 29 0.90 \ APR 15 03:01 \ L 12.8 / 6.1 257 / L 38.0 \ Telemetry/ECG I personally reviewed the last 24 hour telemetry that show normal sinus rhythm with right bundle-branch Cardiac echo 04/14/19 Limited Echo shows EF 55% No effusion Impression and Plan IMPRESSION: 55 yo male followed by Dr. Mathews [id number] 1 of at least one echo pending [...] excitation of a septal accessory pathway. 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 Limited ECHO completed at bedside and visualized as normal. Can be transferred to telemetry per EP standpoint. Patient with follow up with Dr. Mathews 3-4 weeks. Can be discharged from the EP standpoint 04/13/19 Discontinue Heparin gtt. Proceed with EPS/ablation this afternoon. talked with primary marketing operations analyst that suggest WPW ablation and flutter 04/12/19 [...] patient is agreeable Consider aggressive potassium replacement documented in this encounter Plan of Treatment Not on file documented as of this encounter Visit Diagnoses Not on filedocumented in this encounter
--- OUTSIDE RECORDS SUMMARY | 2024-08-06 19:14 | XMS_ITS | Encounter Summary ---
Author Organization [employer] Address [address] [place] [address] Care Team Providers Care Communications Maintainer Name Role Phone Unavailable Primary Care Provider Unavailabl e Encounter Details Date Type Department Care Team (Late st Contact Info) Description 04/12/2019 Transcribed Document [facility] Family Medicine [address] [place] [address] ProviderSharon MD [address] [place] [address] Social History Tobacco Use Types Packs/Day Years Used Date Smoking Tobacco: Never Assessed Sex and Gender Information Value Date Recorded Sex Assigned at Not on file Legal Sex Male 6:54 PM CDT Gender Identity Not on file Sexual Orientation Not on file documented as of this encounter Miscellaneous Notes * Cerner Conversion Note - Sharon Phillips MD - 04/12/2019 8:00 AM TAKE AWAY ATTENDANT Patient: RAUDEL ZEPEDA Age: 54 years Sex: [...] influenza virus vaccine, inactivated: 0.5 mL, IntraMuscular, [id number] Documented Medications Documented Metoprolol Tartrate 100 mg [...] All Problems Alcohol abuse / SNOMED CT 42741698 / Confirmed Anxiety / SNOMED CT 67025498 / Confirmed History of obstructive sleep apnea / IMO 76887382 / Confirmed Hypertension / SNOMED CT 7443018797 / Confirmed Hypothyroid / SNOMED CT 37720552 / Confirmed Smoker / SNOMED CT 617301129 / Confirmed SVT - Supraventricular tachycardia / SNOMED CT 6882199634 / Confirmed, Active Problems (7) Alcohol abuse Anxiety History of obstructive sleep apnea Hypertension Hypothyroid Smoker SVT - Supraventricular tachycardia Objective Intake and Output 24 hour intake, 24 hour output VS/Measurements Vitals Signs (last 24 hrs) Last Charted Minimum Maximum Temp 98.1 (APR 12 08:00) 98.1 (APR 12 08:00) 98.2 (APR 11 16:00) Apical HR 69 (APR 12 10:45) 69 (APR 12 10:45) 69 (APR 12 10:45) Mon HR 71 (APR 12 12:00) 67 (APR 11 14:30) 91 (APR 12 06:00) SBP H 153 (APR 12 12:00) 115 (APR 12 07:00) H 163 (APR 11 19:00) DBP 88 (APR 12 12:00) 73 (APR 12 07:00) H 104 (APR 11 18:00) MAP 114 (APR 12 12:00) 88 (APR 12 07:00) 125 (APR 11 18:00) SpO2 L 92 (APR 12 12:00) L 74 (APR 11 18:00) 98 (APR 11 15:30) General: Alert and oriented. Eye: Pupils are equal, round and reactive to light. HENT: Normocephalic. Neck: Supple, Non-tender, No carotid bruit, No jugular venous distention. Respiratory: Lungs are clear to auscultation, Respirations are non-labored. Cardiovascular: Normal rate, No murmur, Good pulses equal in all extremities, irregular rate. Jugular Veins: Not distended. Gastrointestinal: Soft, Non-tender, Non-distended, Normal bowel sounds. Musculoskeletal: Normal range of motion. Integumentary: Warm, Dry, [place]. Neurologic: Alert, Oriented, has some tremors. Psychiatric: Cooperative, Appropriate mood & affect. Results Review Telemetry front desk monitor personally reviewed shows NSR over the last 24 hours The EKG shows sinus rhythm with preexcitation APR 12 04:33 L 132 L 99 7 / 90 4.1 31 0.80 \ APR 12 04:33 \ L 12.1 / 6.5 199 / L 36.5 \ No Radiology Results Found Impression and Plan IMPRESSION: 55 yo male followed by Dr. Mathews [id number] 1 of at least one echo pending [...] excitation of a septal accessory pathway. PLAN; 04/12/19 Discontinue Amio gtt. Patient is to have Lilliam stress test today per Cardiology. Patient is agreeable and wants to proceed with EPS/ablation. Risks, benefits explained. Written and verbal consents obtained. Patient will be NPO after midnight and is on schedule tomorrow 04/13/19 to follow 1st case. 04/10/19 Retrieve records; cardiac echo Would continue amiodarone drip [...]
--- OUTSIDE RECORDS SUMMARY | 2024-08-06 19:14 | XMS_ITS | Clinical Summary ---
Author Organization [employer] [facility] Address [address] [place] [address] Care Team Providers Care History Faculty Member Name Role Phone Unavailable Primary Care Provider [...]
--- OUTSIDE RECORDS SUMMARY | 2024-08-06 19:14 | XMS_ITS | Encounter Summary ---
Author Organization [employer] Address [address] [place] [address] Care Team Providers Care Wrapper Leaf Inspector Name Role Phone Unavailable Primary Care Provider Unavailabl e Encounter Details Date Type Department Care Team (Late st Contact Info) Description 04/14/2019 Transcribed Document [facility] [place] Family Medicine [address] [place] [address] ProviderSharon MD [address], [place] [address] Social History Tobacco Use Types Packs/Day Years Used Date Smoking Tobacco: Never Assessed Sex and Gender Information Value Date Recorded Sex Assigned at Not on file Legal Sex Male 6:54 PM CDT Gender Identity Not on file Sexual Orientation Not on file documented as of this encounter Miscellaneous Notes * Cerner Conversion Note - Sharon ProviderMD - 04/14/2019 9:55 AM BUSINESS PROCESS ENGINEER Evaluation, Occupational Therapy Entered On: 04/14/2019 14:29 EST Performed On: 04/14/2019 14:18 EST by STACEY MURDOCK OTR/Kavin General Information, OT Visit Type, OT : Initial evaluation Patient Orders : Order Date Order Ordering 04/14/2019 09:55 Occupational Therapy Evaluation and Treatme Ordered By: JANICE BUCHANAN DO Active Diagnoses : No Qualifying Diagnoses Therapy Diagnosis, OT : generalized weakness Admission Date : 04/09/2019 18:47 Assisted by, OT : Physical Therapist Personal Devices : Personal Devices No Devices Recorded Assistive Devices : Assistive Devices No Devices Recorded Precautions in Place : Fall prevention measures General Information Comment, OT : pt is a pleasant 54 y.o. male admitted with chest pain, palpitations, tachycardia, A-fib was on heparin drip, s/p ablation on 04/13/19. pt also with h/o alcohol/tobaccoa abuse STACEY MURDOCK OTR/Kaivn - 04/14/2019 14:18 EST General Status Patient Received Status : Up in chair, Other: tele, pulse ox, PT/student present Treatment Start Time : 04/14/2019 14:05 EST Patient Left Status : RN/PCT informed, All needs met and within reach, Other: pt left walking with PT RN/PCT Informed Comment : RN priti'd to tx, ID and verified Treatment End Time : 04/14/2019 14:16 EST Treatment Time : 11 Minute(s) STACEY MURDOCK OTR/Kavin - 04/14/2019 14:18 EST History and Environment, OT Living Situation, Therapy : Home Patient Lives With : Significant other(s), Spouse Persons Assisting Patient at Home : Significant other(s) Persons Providing Information : Patient Home Equipment, Therapy : None Home Setup : Two story Stairs : Yes Stair Location(s) : Inside, Outside Outside Stairs, Number of Steps : 5 Railing Outside : Yes STACEY MURDOCK OTR/Kavni - 04/14/2019 14:18 EST Prior LOF Bathing, OT : Independent Prior LOF Bed Mobility : Independent Prior LOF Upper Body Dressing, OT : Independent Prior LOF Lower Body Dressing, OT : Independent Prior LOF Toileting : Independent Prior LOF Transfer : Independent Prior LOF Grooming, OT : Independent Prior LOF for IADLs, OT : Independent STACEY MURDOCK OTR/Kavin - 04/14/2019 14:18 EST History and Environment Comment, OT : per pt he was I PLOF and did not use AD prior to admission , lives with spouse STACEY MURDOCK OTR/Kavin - 04/14/2019 14:18 EST Upper Extremity Right UE Active ROM : WFL Right UE Strength : WFL Left UE Active ROM : WFL Left UE Strength : WFL STACEY MURDOCK OTR/Kavin - 04/14/2019 14:18 EST Self Care/Home Management, OT Lower Body Dressing Assist Level, OT : Assist, minimal Bed/Chair/WC Transfer Assist Level : Assist, minimal Bed/Chair/WC Transfer Device : Belt, gait, Walker, front wheel Bed/Chair/WC Device Comment : cues for safety and hand placement, pt unsteady with transfers, leans to R side STACEY MURDOCK OTR/Kavin - 04/14/2019 14:18 EST Mobility Device/Prosthesis/Wt Bearing Weight Bearing Status : As tolerated STACEY MURDOCK OTR/Kavin - 04/14/2019 14:18 EST Functional Mobility Mobility Grid Sit to Stand : Rehab Minimal assistance Stand to Sit : Rehab Minimal assistance STACEY MURDOCK CHEPE/Kavin - 04/14/2019 14:18 EST Functional MobilityComment : gait belt donned, pt completes sit to stand from chair min assist and functional mobility in hallway with PT and PT student min assist with lean to R side. pt unsteady and unsure of self while walking, reports he feels off balance. pt left walking with PT , does not use AD at baseline STACEY MURDOCK CHEPE/Kavin - 04/14/2019 14:18 EST Neuromuscular Reeducation, OT Balance Assist Level : Assist, minimal Balance Comment : dynamic standing min assist STACEY MURDOCK CHEPE/Kavin - 04/14/2019 14:18 EST AM PAC Daily Activity Putting On/Taking Off Lower Body Clothes : A little Bathing (Washing, Rinsing, Drying) : A little Toileting Includes Toilet, Bedpan, Urinal : A little Putting On/Taking Off Upper Clothing : None Taking Care of Grooming : None Eating Meals : None AM-PAC Daily Activity Raw Score : 21 STACEY MURDOCK CHEPE/Kavin - 04/14/2019 14:18 EST Image 3 - Images currently included in the form version of this document have not been included in the text rendition version of the form. Activity Tolerance, OT Activity Comment : impaired , easily fatigues STACEY MURDOCK CHEPE/Kavin - 04/14/2019 14:18 EST Intervention Summary Heart Rate/Pulse Pre-intervention : 87 bpm O2 Pre-Intervention : room air SpO2 Pre-Intervention : 93 % STACEY MURDOCKCHEPE/Kavin - 04/14/2019 14:18 EST Neurological/Sensory Overall Sensory Response : Intact Overall Sensory Response Comment : pt reports intact MATHIEUSTACEYCHEPE/Kavin - 04/14/2019 14:18 EST Cognition Assessment, OT Orientation : Oriented x 4 Cognition Assessment Comment : pt is alert and oriented to orientation questions, however presents with a little confusion at times , difficulty staying on task, cues for safety STACEY MURDOCKCHEPE/Kavin - 04/14/2019 14:18 EST Education OT Occupational Therapy Education Grid Activity of Daily Living Training : Returns demonstration, Needs further teaching Balance Training : Needs further teaching Functional Mobility Training : Returns demonstration, Needs further teaching Occupational Therapy, Other : Needs further teaching STACEY MURDOCK OTR/Kavin - 04/14/2019 14:18 EST Indication Assessment, OT Occupational Therapy Indicated : Yes Problem List, OT : Impaired, activities daily living, Impaired, endurance tolerance, Impaired, strength, Impaired, transfers Potential Barriers, OT : Acuity of illness, Fatigue Rehabilitation Potential, OT : Good STACEY MURDOCK OTR/Kavin - 04/14/2019 14:18 EST Plan of Care, OT OT Tx Plan/Goals Established w Patient : Yes OT Frequency Rehab : Five days per week OT Duration Rehab : Fourteen days OT Treatments Planned : Activities of daily living, Balance training, Caregiver training, Functional mobility training, Safety education, Therapeutic activities, Therapeutic exercises STACEY MURDOCK OTR/Kavin - 04/14/2019 14:18 EST Compressor Mechanic Goals, OT Dressing, Lower Body LTG Grid Goal #1 Activity : Dressing, Lower Body Assist : Independent, complete Date to Meet : 04/28/2019 EST Goal Status : Initial goal STACEY MURDOCK OTR/Kavin - 04/14/2019 14:18 EST Toileting LTG Grid Goal #1 Activity : Toileting Assist : Independent, complete Date to Meet : 04/28/2019 EST Goal Status : Initial goal STACEY MURDOCK OTR/Kavin - 04/14/2019 14:18 EST Toilet Transfer LTG Grid Goal #1 Activity : Toilet Transfer, Ambulatory Assist : Independent, complete Date to Meet : 04/28/2019 EST Goal Status : Initial goal STACEY MURDOCK OTR/Kavin - 04/14/2019 14:18 EST Treatment Note Subjective Comment : pt agrees to tx Additional Objective Information : eval Assessment : pt to benefit from skilled OT while inpt for return to PLOF, pt presents with slight functional decline with ADL/transfers/mobility , demonstrates weakness, decreased activity tolerance and balance. Plan for Treatment : skilled OT 5x/week for 14 days STACEY MURDOCK OTR/Kavin - 04/14/2019 14:18 EST Pain Assessment Pain Scaled Used : FACES Pain Score Pre-Intervention : 0 STACEY MURDOCK OTR/Kavin - 04/14/2019 14:18 EST Image 1 - Images currently included in the form version of this document have not been included in the text rendition version of the form. [facility] OT Charges OT Eval Low Complexity : 1 STACEY MURDOCK, OTR/Kavin - 04/14/2019 14:18 EST documented in this encounter Plan of Treatment Not on file documented as of this encounter Visit Diagnoses Not on filedocumented in this encounter
--- OUTSIDE RECORDS SUMMARY | 2024-08-06 19:14 | XMS_ITS | Encounter Summary ---
Author Organization [employer] Address [address] [place] [address] Care Team Providers Care Shipyard Painter Helper Name Role Phone Unavailable Primary Care Provider Unavailabl e Encounter Details Date Type Department Care Team (Late st Contact Info) Description 04/09/2019 Transcribed Document [facility] [place] Family Medicine [address] [place] [address] ProviderSharon MD [address] [place] [address] Social History Tobacco Use Types Packs/Day Years Used Date Smoking Tobacco: Never Assessed Sex and Gender Information Value Date Recorded Sex Assigned at Not on file Legal Sex Male 6:54 PM CDT Gender Identity Not on file Sexual Orientation Not on file documented as of this encounter Miscellaneous Notes * Cerner Conversion Note - Sharon ProviderMD - 04/09/2019 7:55 PM PRINTER OPERATOR Patient: RAUDEL ZEPEDA Age: 54 years Sex: Male : 1965 Associated Diagnoses: None Author: IRVING HERMAN APRN Basic Information PCP: Analyst [employer] And Beverage: [employer] Chief Complaint recurrent SVT History of Present Illness Mr. Zepeda is a 54-year-old male with past medical history of SVT which he reports having intermittently his entire life and has had an ablation in the past. He does not know who did his ablation although he is states he had it done here at [facility], however there are no available records of this procedure here. He reports having intermittent SVT for the last 2 months, for which he went to his primary care for 1 week ago. His primary care referred him back to Dr. Mathews who is his primary catastrophe claims supervisor. When he arrived at Dr. Mathews's office [...] A call was then placed to our catastrophe claims supervisor skilled nursing facilities professional who recommended amiodarone infusion and transfer for [...] 2 weeks ago but that has resolved. Review of Systems Constitutional: Weakness, Fatigue. Eye: Negative except as documented in history of present illness. Ear/Nose/Mouth/Throat: Negative except as documented in history of present illness. Respiratory: Negative except as documented in history of present illness. Cardiovascular: Tachycardia, Peripheral edema. Gastrointestinal: Negative except as documented in history of present illness. Genitourinary: Negative except as documented in history of present illness. Hematology/Lymphatics: Negative except as documented in history of present illness. Endocrine: Negative except as documented in history of present illness. Immunologic: Negative except as documented in history of present illness. Musculoskeletal: Negative except as documented in history of present illness. Integumentary: Negative except as documented in history of present illness. Neurologic: Negative except as documented in history of present illness. Psychiatric: Negative except as documented in history of present illness. Health Status Allergies (1) Active Reaction No Known Allergies None Documented No qualifying data available Allergies: Allergic Reactions (Selected) No Known Allergies Current medications: (Selected) Inpatient Medications Ordered DuoNeb 0.5 mg-2.5 mg/3 mL inhalation solution: 3 mL, Nebulized Inhalation, Q6H, PRN: Shortness of Breath Pepcid: 20 mg, Oral, Daily Phenergan: 6.25 mg, IntraVENous, Q6H, PRN: Nausea Tylenol: 650 mg, Oral, Q4H, PRN: Other (See Comment) Zofran: 4 mg, IV Push, Q4H, PRN: Nausea amiodarone injection 450 mg + Dextrose 5% in Water intravenous solution 250 mL: Titrate, IntraVENous cloNIDine: 0.1 mg, Oral, Q4H, PRN: Hypertension heparin injection 25,000 Units + NaCl 0.45% Premix Diluent 250 mL: Titrate, IntraVENous hydrALAZINE: 10 mg, IV Push, Q6H, PRN: Hypertension morphine: 2 mg, IV Push, Q2H, PRN: Pain (Severe 7-10), Medications (10) Active Scheduled: (1) famotidine 20 mg tab 20 mg 1 Tab, Oral, Daily Continuous: (2) amiodarone 450 mg + Dextrose 5% in Water 250 mL 250 mL, IntraVENous heparin/NaCl 0.45% 25,000 Units + Premix Diluent NaCl 0.45% 250 mL 250 mL, IntraVENous PRN: (7) acetaminophen 325 mg tab 650 mg 2 Tab, Oral, Q4H albuterol-ipratropium inh 3 mL 3 mL, Nebulized Inhalation, Q6H cloNIDine 0.1 mg tab 0.1 mg 1 Tab, Oral, Q4H hydrALAZINE 20 mg/1 mL inj 10 mg 0.5 mL, IV Push, Q6H morphine 2 mg/1 ml inj 2 mg 1 mL, IV Push, Q2H ondansetron 4 mg/2 mL inj 4 mg 2 mL, IV Push, Q4H promethazine 25 mg/1 mL inj 6.25 mg 0.25 mL, IntraVENous, Q6H Problem list: No qualifying data available Histories No education data available. Social & Psychosocial Habits No Data Available Past Medical History: Active SVT - Supraventricular tachycardia ([id number]) Family History: No family history items have been selected or recorded. Procedure history: No active procedure history items have been selected or recorded., SVT ablation Social History Social & Psychosocial Habits No Data Available . Physical Examination VS/Measurements No qualifying data available General: Alert and oriented, No acute distress. Eye: Vision unchanged. HENT: No pharyngeal erythema. Neck: Supple, Non-tender, No carotid bruit. Respiratory: Breath sounds: Right, Upper lobe, Lower lobe, Crackles present. Cardiovascular: intermittently tachycardic. Edema: 2+. Gastrointestinal: Soft, Non-tender. Musculoskeletal: Normal range of motion, Normal strength. Integumentary: Warm, Dry, [place], Intact. Neurologic: Alert, Oriented. Psychiatric: Cooperative, Appropriate mood & affect. Review / Management No qualifying data available Cardiac Markers (Current Encounter/Past 24 Hours) No Cardiac Marker Results Found (Past 24 Hours) Blood Gases (Current Encounter/Past 24 Hours) No Blood Gas Results Found (Past 24 Hours) No Radiology Results Found Results review: No qualifying data available. Impression and Plan IMPRESSION: Recurrent, intermittent SVT despite Adenosine and DCCV x 2 at OSH history of SVT (WPW?) post remote ablation- lacking records of procedure Reports 2 months duration of symptoms HTN- poorly controlled Alcohol abuse- quit using alcohol 2 weeks ago Acute CHF- unknown EF elevated proBNP, FVO PLAN; Continue Amiodarone gtt, Cardene if needed to control BP Echocardiogram Urine drug screen TSH, FLP, CBC, CMP, HA1C, troponin in AM Bumex 2mg IV x 1 CXR EP consult in AM documented in this encounter Plan of Treatment Not on file documented as of this encounter Visit Diagnoses Not on filedocumented in this encounter
--- OUTSIDE RECORDS SUMMARY | 2024-08-06 19:14 | XMS_ITS | Encounter Summary ---
Author Organization [employer] Address [address] [place] [address] Care Team Providers Care Cnc Lathe Machine Operator Name Role Phone Unavailable Primary Care Provider Unavailabl e Encounter Details Date Type Department Care Team (Late st Contact Info) Description 04/09/2019 Transcribed Document [facility] [place] Family Medicine [address] [place] [address] ProviderSharon MD [address] [place] [address] Social History Tobacco Use Types Packs/Day Years Used Date Smoking Tobacco: Never Assessed Sex and Gender Information Value Date Recorded Sex Assigned at Not on file Legal Sex Male 6:54 PM CDT Gender Identity Not on file Sexual Orientation Not on file documented as of this encounter Miscellaneous Notes * Cerner Conversion Note - Historical ProviderMD - 04/09/2019 7:11 PM PANELBOARD OPERATOR Consult Phone Call Documentation Entered On: 04/10/2019 3:15 EST Performed On: 04/09/2019 19:11 EST by Luda Kay, RN Phone Call for Consults Consult Phone Call/Page Attempt : First call Date and Time Call Returned : 04/09/2019 19:00 EST Consult, Additional Information : FINANCIAL ANALYST came to see patient Luda Kay, RN - 04/10/2019 3:12 EST Electronically signed by Phil [facility] Conversion Floor Steward/Stewardess Cerner at 06/19/2022 4:40 PM CDT documented in this encounter Plan of Treatment Not on file documented as of this encounter Visit Diagnoses Not on filedocumented in this encounter
--- OUTSIDE RECORDS SUMMARY | 2024-08-06 19:14 | XMS_ITS | Encounter Summary ---
Author Organization [employer] Address [address] [place] [address] Care Team Providers Care Production Finisher Name Role Phone Unavailable Primary Care Provider Unavailabl e Encounter Details Date Type Department Care Team (Late st Contact Info) Description 04/15/2019 Transcribed Document [facility] [place] [address] [place] [address] ProviderSharon MD [address] [place] [address] Social History Tobacco Use Types Packs/Day Years Used Date Smoking Tobacco: Never Assessed Sex and Gender Information Value Date Recorded Sex Assigned at Not on file Legal Sex Male 6:54 PM CDT Gender Identity Not on file Sexual Orientation Not on file documented as of this encounter Miscellaneous Notes * Cerner Conversion Note - Historical ProviderMD - 04/15/2019 5:00 AM PIZZA BAKER Chart Check - Review Order Profile Entered On: 04/15/2019 6:16 EST Performed On: 04/15/2019 5:00 EST by YEIMY CASTRO RN Chart Check Powerplans Initiated/Discontinued as Appropriate : Yes All Active Orders Reviewed : Yes YEIMY CASTRO RN - 04/15/2019 6:16 EST Electronically signed by Phil [facility] Conversion Bank Advisor Cerner at 06/19/2022 4:37 PM CDT documented in this encounter Plan of Treatment Not on file documented as of this encounter Visit Diagnoses Not on filedocumented in this encounter
--- OUTSIDE RECORDS SUMMARY | 2024-08-06 19:15 | XMS_ITS | Encounter Summary ---
Author Organization [employer] Address [address] [place] [address] Care Team Providers Care Apron Trimmer Name Role Phone Unavailable Primary Care Provider Unavailabl e Encounter Details Date Type Department Care Team (Late st Contact Info) Description 04/11/2019 Transcribed Document [facility] Radiology [address] [place] [address] Jerrell Kamara MD [address] [place] [address] Social History Tobacco Use Types Packs/Day Years Used Date Smoking Tobacco: Never Assessed Sex and Gender Information Value Date Recorded Sex Assigned at Not on file Legal Sex Male 6:54 PM CDT Gender Identity Not on file Sexual Orientation Not on file documented as of this encounter Miscellaneous Notes * Cerner Conversion Note - Jerrell Kamara MD - 04/11/2019 8:42 AM EST Patient: RAUDEL ZEPEDA Age: 54 years Sex: Male : 1965 Associated Diagnoses: None Author: JERRELL KAMARA MD-CAR Subjective NAD now in NSR Health Status Current medications: (Selected) Inpatient Medications [...] 6.25 mg, IntraVENous, Q6H, PRN: Nausea Serax: 15 mg, Oral, TID Tylenol: 650 mg, Oral, Q4H, PRN: Other [...] influenza virus vaccine, inactivated: 0.5 mL, IntraMuscular, [id number] labetalol: 20 mg, IV Push, Q1H, PRN: [...] film, extended release: 1 Patch, TransDermal, Daily oxyCODONE: 5 mg, Oral, Q4H, PRN: Pain (Moderate 4-6) potassium chloride 10 mEq oral tablet, extended [...] 24 hour output VS/Measurements Vital Signs/Vital Measures 04/11/2019 7:00 EST Systolic Blood Pressure 152 mmHg HI Diastolic Blood Pressure 105 mmHg HI Mean Arterial Pressure (MAP)-BMDI 124 Heart Rate Monitored 75 bpm Oxygen Saturation 99 % 04/11/2019 5:00 EST Systolic Blood Pressure 133 mmHg Diastolic Blood Pressure 92 mmHg HI Mean Arterial Pressure (MAP)-BMDI 108 Heart Rate Monitored 71 bpm , Vitals Signs (last 24 hrs) Last Charted Minimum Maximum Temp 98 (APR 11 04:00) 97.9 (APR 11 00:00) 98 (APR 10 08:00) Apical HR 87 (APR 10 13:50) 72 (APR 10 10:49) 87 (APR 10 13:50) Mon HR 75 (APR 11 07:00) 61 (APR 11 02:00) 108 (APR 10 11:15) Resp Rate H 36 (APR 10 22:00) 16 (APR 10 16:00) H 50 (APR 10 11:15) SBP H 152 (APR 11 07:00) 124 (APR 11 02:00) H 213 (APR 10 13:45) DBP H 105 (APR 11 07:00) 78 (APR 10 21:00) H 115 (APR 10 10:45) MAP 124 (APR 11 07:00) 97 (APR 11 02:00) 146 (APR 10 13:45) SpO2 99 (APR 11 07:00) L 80 (APR 10 12:15) 100 (APR 10 09:00) No qualifying data available General: Alert and oriented, No acute distress. Eye: Vision unchanged. HENT: No pharyngeal erythema. Neck: Supple, Non-tender, No carotid bruit. Respiratory: Breath sounds: Right, Upper lobe, Lower lobe, Crackles present. Cardiovascular: intermittently tachycardic. Edema: 2+. Gastrointestinal: Soft, Non-tender. Musculoskeletal: Normal range of motion, Normal strength. Integumentary: Warm, Dry, [place], Intact. Neurologic: Alert, Oriented. Psychiatric: Cooperative, Appropriate mood & affect. Results Review Telemetry Admission Weight Todays Weight APR 11 03:58 L 133 L 97 8 / 101 3.5 H 33 0.90 \ Cardiac Markers (Current Encounter/Past 24 Hours) CK MB <1.00 ng/mL 04/10/2019 05:45 Radiology Results (Last 48 hours) [id number] -- 04/09/2019 18:47 CR Chest 1 Vw Portable (04/10/2019 03:45) Result: CHEST ONE VIEWHISTORY: Shortness of breath.COMPARISON: None.FINDINGS: Portable view of the chest demonstrates hazy density over theright lung base probably due to a small right pleural effusion. Leftlung is clear. Pulmonary vascularity is normal. Widening of the right paratracheal stripe is seen related to calcifiedmediastinal lymph nodes.The heart size is normal. IMPRESSION: Increased density right lung base probably due to smallright pleural effusion. Upright two-view chest exam may be helpful. Impression: Left ventricle measures upper limits of normal. Normal left ventricular wall thickness. Visually estimated ejection fraction 40% +/- 5%. Abnormal left ventricular systolic function; abnormal systolic strain pattern. Abnormal diastolic function. Impression and Plan IMPRESSION: Aflutter with RVR -2:1 -hx of ablation at HTN- poorly controlled Alcohol abuse- quit using alcohol 2 weeks ago Acute CHF- systolic - new diagnosis PLAN; 04/11/2019 Pt in NSR. Amiodarone gtt per [...]
--- OUTSIDE RECORDS SUMMARY | 2024-08-06 19:15 | XMS_ITS | Encounter Summary ---
Author Organization [employer] Address [address] [place] [address] Care Team Providers Care Delivery Technician Name Role Phone Unavailable Primary Care Provider Unavailabl e Encounter Details Date Type Department Care Team (Late st Contact Info) Description 04/12/[address] [facility] [place] Family Medicine [address] [place] [address] ProviderSharon MD [address], [place] [address] Social History Tobacco Use Types Packs/Day Years Used Date Smoking Tobacco: Never Assessed Sex and Gender Information Value Date Recorded Sex Assigned at Not on file Legal Sex Male 6:54 PM CDT Gender Identity Not on file Sexual Orientation Not on file documented as of this encounter Miscellaneous Notes * Cerner Conversion Note - Sharon ProviderMD - 04/12/2019 12:02 PM CRIMINAL JUSTICE PROFESSOR On Going Discharge Planning Entered On: 04/12/2019 12:03 EST Performed On: 04/12/2019 12:02 EST by JUS MATAMOROS Rn-Field HandParcel Post Officer Progress Note Discharge Arrangements : Patient Post-Acute [...] Patient Meeting Medical Necessity : Yes JUS MATAMOROS Rn-Field Hand - 04/12/2019 12:02 EST Narrative Progress Note Narrative Progress Note : Anticipate pt will d/c home with S.O. when stable; OLOP consult when ready for d/c. JUS MATAMOROS, Rn-Field Hand - 04/12/2019 12:02 EST Electronically signed by Phil, [facility] Conversion Nursing Services Manager Cerner at 06/19/2022 4:34 PM CDT documented in this encounter Plan of Treatment Not on file documented as of this encounter Visit Diagnoses Not on filedocumented in this encounter
--- OUTSIDE RECORDS SUMMARY | 2024-08-06 19:15 | XMS_ITS | Encounter Summary ---
Author Organization [employer] Address [address] [place] [address] Care Team Providers Care Rpg Developer Name Role Phone Unavailable Primary Care Provider Unavailabl e Encounter Details Date Type Department Care Team (Late st Contact Info) Description 04/12/2019 Transcribed Document [facility] Family Medicine [address] [place] [address] ProviderSharon MD [address], [place] [address] Social History Tobacco Use Types Packs/Day Years Used Date Smoking Tobacco: Never Assessed Sex and Gender Information Value Date Recorded Sex Assigned at Not on file Legal Sex Male 6:54 PM CDT Gender Identity Not on file Sexual Orientation Not on file documented as of this encounter Miscellaneous Notes * Cerner Conversion Note - Historical ProviderMD - 04/12/2019 12:34 PM INSTRUMENTAL TEACHER Event Note Entered On: 04/12/2019 12:36 EST Performed On: 04/12/2019 12:34 EST by ASHLEY BREWER RN Event Note Event Date/Time : 04/12/2019 10:58 EST Description of Event : clarified orders re: stress test today and if ok to go wtih what medications. Obtained consent from patient's daughter due to the patinet being on serax and precedex drip. Explained to roopa that I would obtain consent from his daughter due to the medicaitons, and he was agreeable. ASHLEY BREWER RN - 04/12/2019 12:34 EST documented in this encounter Plan of Treatment Not on file documented as of this encounter Visit Diagnoses Not on filedocumented in this encounter
--- OUTSIDE RECORDS SUMMARY | 2024-08-06 19:15 | XMS_ITS | Encounter Summary ---
Author Organization [employer] Address [address] [place] [address] Care Team Providers Care Loan Processing Supervisor Name Role Phone Unavailable Primary Care Provider Unavailabl e Encounter Details Date Type Department Care Team (Late st Contact Info) Description 04/12/2019 Transcribed Document [facility] [place] Family Medicine [address] [place] [address] ProviderSharon MD [address], [place] [address] Social History Tobacco Use Types Packs/Day Years Used Date Smoking Tobacco: Never Assessed Sex and Gender Information Value Date Recorded Sex Assigned at Not on file Legal Sex Male 6:54 PM CDT Gender Identity Not on file Sexual Orientation Not on file documented as of this encounter Miscellaneous Notes * Cerner Conversion Note - Sharon ProviderMD - 04/12/2019 8:17 AM COPYING MACHINE REPAIRER UM Authorization Entered On: 04/12/2019 8:23 EST Performed On: 04/12/2019 8:17 EST by DARBY ELIAS RN Primary Insurance Authorization Authorization and Policy Numbers : Insurance 1 Health Plan: [employer] Policy Number: [id number] Authorization Number: Insurance Primary Name : Hiren [id number] Authorization Status-Primary : Drg approved Reference Number-Primary : [id number] Number of Days Authorized-Primary : 9 Day(s) Authorized Service Begin Date-Primary : 04/09/2019 EST Authorized Service End Date-Primary : 04/18/2019 EST Authorization Comments-Primary : Per Availity, IP admit approved DRG NRD 04/19/2019. Historical Authorization Comments-Primary : Comment 1: Inpt auth requested and clinicals submitted via Availity as pt has commercial [employer] plan, not Federal as listed. (Alonso Malik, Herrerat Relationship Banker-Utilization Mgt 04/10/2019 12:42) Comment 2: Clinicals paper faxed. (Alonso Malik Mkt Relationship Banker-Utilization Mgt 04/10/2019 12:32) DARBY ELIAS RN - 04/12/2019 8:17 EST documented in this encounter Plan of Treatment Not on file documented as of this encounter Visit Diagnoses Not on filedocumented in this encounter
--- OUTSIDE RECORDS SUMMARY | 2024-08-06 19:15 | XMS_ITS | Encounter Summary ---
Author Organization [employer] Address [address] [place] [address] Care Team Providers Care Procurement Professional Name Role Phone Unavailable Primary Care Provider Unavailabl e Encounter Details Date Type Department Care Team (Late st Contact Info) Description 04/11/[address] [facility] [place] [address] [place] [address] ProviderSahron MD [facility] [place], [place] [id number] Social History Tobacco Use Types Packs/Day Years Used Date Smoking Tobacco: Never Assessed Sex and Gender Information Value Date Recorded Sex Assigned at Not on file Legal Sex Male 6:54 PM CDT Gender Identity Not on file Sexual Orientation Not on file documented as of this encounter Miscellaneous Notes * Cerner Conversion Note - Historical ProviderMD - 04/11/2019 1:20 PM SAP DATA ARCHITECT Patient: RAUDEL ZEPEDA Age: 54 Years Sex: Male : 1965 Subjective Patient's main complaint today is pain in his right leg, which is hindering his ability to walk. Vital Signs T: 36.7 ??C TMIN: 36.7 ??C TMAX: 37 ??C HR: 76(Monitored) RR: 36 BP: 136/85 SpO2: 96% Oxygen Settings (Last) Oxygen Therapy Mode: Nasal cannula (04/11/19 09:13:00) Oxygen Flow Rate: 2 Liter/Min (04/11/19 09:13:00) Intake & Output Totals Last 24 Hours (7a-7a) Input Total: 2662.39 mL Output Total: 1700 mL Balance: 962.39 mL Physical Exam General: [Alert and oriented, well nourished, no acute distress]. obese Neurologic: [Awake, alert, and oriented X3, CN II-XII intact]. Eye: [PERRL, EOMI, normal conjuctiva]. HENT: [Normocephalic, clear tympanic membranes, normal hearing, moist oral mucosa, no scleral icterus, no sinus tenderness]. Neck: [Supple, non-tender, no carotid bruits, no JVD, no lymphadenopathy]. Lungs: [Clear to auscultation and percussion, non-labored respiration]. Heart: [Normal rate, regular rhythm, no murmur, gallop or edema]. Abdomen: [Soft, non-tender, non-distended, normal bowel sounds, no masses]. Musculoskeletal: [Normal range of motion and strength, no tenderness or swelling]. Skin: [Skin is warm, dry and pink, no rashes or lesions]. Psychiatric: [Cooperative, appropriate mood and affect]. Assessment/Plan 1. SVT, now in persistent A fib, continue amiodarone and heparin drips, heart rate is currently stable, EP is planning for possible ablation next week 2.alcohol withdrawal, continue fluids, Precedex, taper serax from 15mg po tid to 10mg po tid, continue thiamine and folic acid 3.elevated troponins, repeat troponin within normal limits, likely related to #1, cardiology following and planning for further ischemic workup 4.anxiety disorder, continue Precedex and serax 5. Right lower started pain, lower extremity Doppler, Percocets when necessary ordered VTE Prophylaxis - Medical Sequential Compression Device [...] mg= 0.5 mL, IV Push, Q6H, PRN labetalol, 20 mg= 4 mL, IV Push, [...] Pepcid, 20 mg= 1 Tab, Oral, Daily Percocet 5/325 oral tablet, 1 Tab, Oral, Q6H, PRN Phenergan, 6.25 mg= 0.25 mL, IntraVENous, Q6H, [...] mEq= 3 Tab, Oral, Q2H, PRN Serax, 10 mg= 1 Cap, Oral, TID sodium phosphate sodium phosphate thiamine, 100 mg= 1 Tab, Oral, Daily Tylenol, 650 mg= 2 Tab, Oral, Q4H, PRN Zofran, 4 mg= 2 mL, IV Push, Q4H, PRN Zoloft, 50 mg= 1 Tab, Oral, Daily Lab Results Test Name Test Result Date/Time Sodium Level 133 mmol/L (Low) 04/11/2019 03:58 EST Potassium Level 3.5 mmol/L 04/11/2019 03:58 EST Potassium Level 3.9 mmol/L 04/10/2019 17:28 EST Chloride Level 97 mmol/L (Low) 04/11/2019 03:58 EST Carbon Dioxide Level 33 mmol/L (High) 04/11/2019 03:58 EST Anion Gap 6 (Low) 04/11/2019 03:58 EST Glucose Level 101 mg/dL 04/11/2019 03:58 EST Blood Urea Nitrogen 8 mg/dL 04/11/2019 03:58 EST Creatinine Level 0.90 mg/dL 04/11/2019 03:58 EST eGFR >60 mL/min/1.73m2 04/11/2019 03:58 EST eGFR NonAfrican >60 mL/min/1.73m2 04/11/2019 03:58 EST Bun/Creatinine 8.9 04/11/2019 03:58 EST Calcium Level 8.5 mg/dL 04/11/2019 03:58 EST Protein Total 6.2 Gram/dL (Low) 04/11/2019 03:58 EST Albumin Level 2.5 Gram/dL (Low) 04/11/2019 03:58 EST Globulin 3.7 Gram/dL 04/11/2019 03:58 EST A/G Ratio 0.7 (Low) 04/11/2019 03:58 EST Bilirubin Total 0.7 mg/dL 04/11/2019 03:58 EST Alk Phos 155 Units/Liter (High) 04/11/2019 03:58 EST AST 13 Units/Liter 04/11/2019 03:58 EST ALT 14 Units/Liter (Low) 04/11/2019 03:58 EST Magnesium Level 1.8 mg/dL 04/11/2019 03:58 EST WBC 7.4 K/uL 04/11/2019 03:58 EST RBC 3.56 Million/uL (Low) 04/11/2019 03:58 EST Hgb 11.8 g/dL (Low) 04/11/2019 03:58 EST Hct 36.2 % (Low) 04/11/2019 03:58 EST MCV 101.7 fL (High) 04/11/2019 03:58 EST MCH 33.1 pg (High) 04/11/2019 03:58 EST MCHC 32.6 Gram/dL 04/11/2019 03:58 EST Platelet Count 218 K/uL 04/11/2019 03:58 EST MPV 10.9 fL 04/11/2019 03:58 EST RDW 14.3 % 04/11/2019 03:58 EST Slide Review No 04/11/2019 03:58 EST PTT Heparin 68.2 Second(s) 04/11/2019 04:00 EST PTT Heparin 62.3 Second(s) 04/10/2019 23:15 EST PTT Heparin 36.2 Second(s) (Low) 04/10/2019 17:28 EST Electronically signed by [facility] Conversion Environmental Services Aide Cerner at 06/19/2022 4:31 PM CDT documented in this encounter Plan of Treatment Not on file documented as of this encounter Visit Diagnoses Not on filedocumented in this encounter
--- OUTSIDE RECORDS SUMMARY | 2024-08-06 19:15 | XMS_ITS | Encounter Summary ---
Author Organization [employer] Address [address] [place] [address] Care Team Providers Care Reinsurance Accountant Name Role Phone Unavailable Primary Care Provider Unavailabl e Encounter Details Date Type Department Care Team (Late st Contact Info) Description 04/10/2019 Transcribed Document [facility] [place] [address] [place] [address] ProviderSharon MD [facility] [place] [address] Social History Tobacco Use Types Packs/Day Years Used Date Smoking Tobacco: Never Assessed Sex and Gender Information Value Date Recorded Sex Assigned at Not on file Legal Sex Male 6:54 PM CDT Gender Identity Not on file Sexual Orientation Not on file documented as of this encounter Miscellaneous Notes * Cerner Conversion Note - Sharon Phillips MD - 04/10/2019 10:12 AM 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 palpitations. In fact, his SVT started when he was a kid and he is to have it a couple of times a month lasting for a few minutes but he was always able to do vagal maneuvers to stop them. There were mildly severe at the time. 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 I performed an ablation on him at the time and he was arrhythmia free for a few years. Currently, he is trying to withdrawal from alcohol, and he is starting to have a lot of arrhythmias so he came to the emergency room. He received IV adenosine several times that did not work and was cardioverted twice but he keep going back in arrhythmias. Reviewed old his outside tracings in details that showed several different arrhythmias: There is clearly an atrial flutter with a 2 to 1 conduction, a lot of atrial fibrillation and 1 tracing with a wide-complex tachycardia and right bundle-branch unclear if it is AVNRT or AVRT or just an trial tachycardia/flutter. He also has 2 types of QRS complexes when he is in sinus rhythm: 1 with a right bundle-branch that is his baseline and 1 with a preexcitation that seems to be close to the his area Review of Systems Constitutional: Negative. Eye: Negative. Ear/Nose/Mouth/Throat: Negative. Respiratory: Negative. Cardiovascular: Palpitations. Gastrointestinal: Negative. Genitourinary Hematology/Lymphatics: Negative. Endocrine: Negative. Immunologic: Negative. Musculoskeletal: Negative. Integumentary: Negative. Neurologic: tremors. Psychiatric: Negative. Health Status Allergies (1) Active Reaction No Known Allergies None Documented Home Medications (9) Active doxepin , Oral [...] 50 mg oral tablet , Oral, Daily Allergies: Allergic Reactions (Selected) No Known Allergies, Allergies (1) Active Reaction No Known Allergies None Documented Current medications: (Selected) Inpatient Medications Ordered Ativan: [...] influenza virus vaccine, inactivated: 0.5 mL, IntraMuscular, [id number] labetalol: 20 mg, IV Push, Q1H, PRN: [...] Documented Metoprolol Tartrate 100 mg oral tablet: Tab, Oral, BID, 0 Refill(s) Zoloft 50 mg oral tablet: Tab, Oral, Daily, 0 Refill(s) doxepin: Oral, 0 Refill(s) folic acid: Daily, 0 Refill(s) hydroCHLOROthiazide-losartan 12.5 mg-50 mg oral tablet: Tab, Oral, Daily, 0 Refill(s) imiquimod 5% topical cream: 1 Application, Topical, 3x/Wk, 24 Each, 0 Refill(s) levothyroxine 75 mcg (0.075 mg) oral tablet: 1 Tab, Oral, Daily, 60 Tab, 0 Refill(s) magnesium oxide 400 mg (241.3 mg elemental magnesium) oral tablet: Tab, Oral, Daily, 0 Refill(s) omeprazole 20 mg oral delayed release capsule: 1 Cap, Oral, Daily, before a meal, 30 Cap, 0 Refill(s), Medications (42) Active Scheduled: (10) famotidine 20 mg tab 20 mg 1 Tab, Oral, Daily folic acid 1 mg tab 1 mg 1 Tab, Oral, Daily influenza vaccine, quadrivalent 0.5 mL, IntraMuscular, [id number] levothyroxine 75 mcg tab 75 mcg 1 Tab, Oral, Daily magnesium oxide 400 mg tab 400 mg 1 Tab, Oral, Daily multiple vitamin (Thera) tab 1 Tab, Oral, Daily nicotine 21 mg/24 hr patch 1 Patch, TransDermal, Daily potassium chloride CR 10 mEq tab 40 mEq 4 Tab, Oral, Daily sertraline 50 mg tab 50 mg 1 Tab, Oral, Daily thiamine 100 mg tab 100 mg 1 Tab, Oral, Daily Continuous: (4) amiodarone 450 mg + Dextrose 5% in Water 250 mL 250 mL, IntraVENous dexmedetomidine 400 mcg + NaCl 0.9% TITRATE 100 mL 100 mL, IntraVENous heparin/NaCl 0.45% 25,000 Units + Premix Diluent NaCl 0.45% 250 mL 250 mL, IntraVENous NaCl 0.9% 1,000 mL 1,000 mL, IntraVENous, 100 mL/Hr PRN: (28) acetaminophen 325 mg tab [...] 2 Gram 50 mL, IV Piggyback, Q2H metoprolol tartrate 25 mg tab 25 mg 1 Tab, Oral, Q6H morphine 2 mg/1 ml inj 2 [...] mL, IV Piggyback, Q6H Problem list: Medical SVT - Supraventricular tachycardia / SNOMED CT [id number] / Confirmed History of obstructive sleep apnea / IMO [id number] / Confirmed, Active Problems (7) Alcohol abuse Anxiety History of obstructive sleep apnea Hypertension Hypothyroid Smoker SVT - Supraventricular tachycardia Histories No education data available. Social & Psychosocial Habits alcohol consumption and ongoing withdraw Past Medical History: Active SVT - Supraventricular tachycardia ([id number]) Family History: No family history items have been selected or recorded., no PMH of sudden cardiac in family or WPW Procedure history: Arm Surgery. Back Surgery. Cardia ablation. Social History Social & Psychosocial Habits No Data Available . patient drinker alcohol trying to withdraw Physical Examination VS/Measurements Vital Signs/Vital Measures 04/10/2019 10:00 EST Systolic Blood Pressure 179 mmHg HI Diastolic Blood Pressure 114 mmHg HI Mean Arterial Pressure (MAP)-BMDI 140 Heart Rate Monitored 73 bpm Respiratory Rate 45 Breaths/Min HI Oxygen Saturation 91 % LOW 04/10/2019 9:45 EST Systolic Blood Pressure 137 mmHg Diastolic Blood Pressure 107 mmHg HI Mean Arterial Pressure (MAP)-BMDI 119 Heart Rate Monitored 73 bpm Respiratory Rate 21 Breaths/Min HI Oxygen Saturation 99 % 04/10/2019 9:30 EST Systolic Blood Pressure 163 mmHg HI Diastolic Blood Pressure 83 mmHg Mean Arterial Pressure (MAP)-BMDI 112 Heart Rate Monitored 102 bpm HI Respiratory Rate 22 Breaths/Min HI Oxygen Saturation 97 % 04/10/2019 9:15 EST Systolic Blood Pressure 159 mmHg HI Diastolic Blood Pressure 103 mmHg HI Mean Arterial Pressure (MAP)-BMDI 127 Heart Rate Monitored 69 bpm Respiratory Rate 25 Breaths/Min HI Oxygen Saturation 96 % 04/10/2019 9:00 EST Systolic Blood Pressure 153 mmHg HI Diastolic Blood Pressure 103 mmHg HI Mean Arterial Pressure (MAP)-BMDI 123 Heart Rate Monitored 67 bpm Respiratory Rate 26 Breaths/Min HI Oxygen Saturation 100 % 04/10/2019 8:45 EST Systolic Blood Pressure 150 mmHg HI Diastolic Blood Pressure 93 mmHg HI Mean Arterial Pressure (MAP)-BMDI 116 Heart Rate Monitored 64 bpm Respiratory Rate 28 Breaths/Min HI Oxygen Saturation 99 % 04/10/2019 8:30 EST Systolic Blood Pressure 151 mmHg HI Diastolic Blood Pressure 92 mmHg HI Mean Arterial Pressure (MAP)-BMDI 116 Heart Rate Monitored 64 bpm Respiratory Rate 21 Breaths/Min HI Oxygen Saturation 96 % 04/10/2019 8:00 EST Systolic Blood Pressure 159 mmHg HI Diastolic Blood Pressure 103 mmHg HI Mean Arterial Pressure (MAP)-BMDI 126 Temperature Source Oral Temperature Mode Fahrenheit Temperature, Fahrenheit 98 Deg F Clinical Temperature, C 36.7 Deg C Heart Rate Monitored 67 bpm Respiratory Rate 27 Breaths/Min HI Oxygen Saturation 98 % Oxygen Therapy Mode Nasal cannula Oxygen Flow Rate 2 Liter/Min 04/10/2019 7:50 EST Oxygen Saturation 97 % Oxygen Therapy Mode Nasal cannula Oxygen Flow Rate 2 Liter/Min 04/10/2019 6:00 EST Systolic Blood Pressure 118 mmHg Diastolic Blood Pressure 90 mmHg Mean Arterial [facility] Temperature Source Oral Temperature Mode Fahrenheit Temperature, Fahrenheit 97.9 Deg F Clinical Temperature, C 36.6 Deg C Heart Rate Monitored 65 bpm Respiratory Rate 24 Breaths/Min HI Oxygen Saturation 95 % Oxygen Therapy Mode Nasal cannula Oxygen Flow Rate 2 Liter/Min 04/10/2019 5:00 EST Systolic Blood Pressure 116 mmHg Diastolic Blood Pressure 75 mmHg Mean Arterial Pressure ([facility] 90 Heart Rate Monitored 97 bpm Respiratory Rate 17 Breaths/Min Oxygen Saturation 94 % Oxygen Therapy Mode Nasal cannula Oxygen Flow Rate 2 Liter/Min 04/10/2019 4:00 EST Systolic Blood Pressure 116 mmHg Diastolic Blood Pressure 94 mmHg HI Mean Arterial Pressure (MAP)-BMDI 103 Temperature Source Oral Temperature Mode Fahrenheit Temperature, Fahrenheit 98 Deg F Clinical Temperature, C 36.7 Deg C Heart Rate Monitored 108 bpm HI Respiratory Rate 22 Breaths/Min HI Oxygen Saturation 96 % Oxygen Therapy Mode Nasal cannula Oxygen Flow Rate 2 Liter/Min 04/10/2019 3:00 EST Systolic Blood Pressure 125 mmHg Diastolic Blood Pressure 88 mmHg Mean Arterial Pressure (MAP)-BMDI 103 Heart Rate Monitored 66 bpm Respiratory Rate 16 Breaths/Min Oxygen Saturation 95 % Oxygen Therapy Mode Nasal cannula Oxygen Flow Rate 2 Liter/Min 04/10/2019 2:00 EST Systolic Blood Pressure 127 mmHg Diastolic Blood Pressure 88 mmHg Mean Arterial Pressure (MAP)-B[facility]I 101 Heart Rate Monitored 117 bpm HI Respiratory Rate 21 Breaths/Min HI Oxygen Saturation 94 % Oxygen Therapy Mode Nasal cannula Oxygen Flow Rate 2 Liter/Min 04/10/2019 1:00 EST Systolic Blood Pressure 130 mmHg Diastolic Blood Pressure 87 mmHg Mean Arterial Pressure (MAP)-BMDI 107 Heart Rate Monitored 166 bpm HI Respiratory Rate 18 Breaths/Min Oxygen Saturation 95 % Oxygen Therapy Mode Nasal cannula Oxygen Flow Rate 2 Liter/Min 04/10/2019 0:00 EST Systolic Blood Pressure 137 mmHg Diastolic Blood Pressure 81 mmHg Mean Arterial Pressure (MAP)-BMDI 100 Temperature Source Oral Temperature Mode Fahrenheit Temperature, Fahrenheit 98.5 Deg F Heart Rate Monitored 179 bpm HI Respiratory Rate 39 Breaths/Min HI Oxygen Saturation 96 % Oxygen Therapy Mode Nasal cannula Oxygen Flow Rate 2 Liter/Min 04/09/2019 23:36 EST Heart Rate, Apical 184 bpm ME 04/09/2019 23:00 EST Systolic Blood Pressure 119 mmHg Diastolic Blood Pressure 93 mmHg HI Mean Arterial Pressure (MAP)-BMDI 103 Heart Rate Monitored 183 bpm HI Respiratory Rate 24 Breaths/Min HI Oxygen Saturation 95 % Oxygen Therapy Mode Nasal cannula Oxygen Flow Rate 2 Liter/Min 04/09/2019 22:00 EST Systolic Blood Pressure 131 mmHg Diastolic Blood Pressure 92 mmHg HI Mean Arterial Pressure (MAP)-BMDI 107 Heart Rate Monitored 193 bpm HI Respiratory Rate 32 Breaths/Min HI Oxygen Saturation 96 % Oxygen Therapy Mode Nasal cannula Oxygen Flow Rate 2 Liter/Min 04/09/2019 21:11 EST Heart Rate, Apical 175 bpm HI 04/09/2019 21:00 EST Systolic Blood Pressure 151 mmHg HI Diastolic Blood Pressure 109 mmHg HI Mean Arterial Pressure (MAP)-BMDI 126 Heart Rate Monitored 174 bpm HI Respiratory Rate 25 Breaths/Min HI Oxygen Saturation 95 % Oxygen Therapy Mode Nasal cannula Oxygen Flow Rate 2 Liter/Min 04/09/2019 20:45 EST Oxygen Therapy Mode Nasal cannula Oxygen Flow Rate 2 Liter/Min 04/09/2019 20:00 EST Systolic Blood Pressure 177 mmHg HI Diastolic Blood Pressure 104 mmHg HI Mean Arterial Pressure (MAP)-BMDI 134 Temperature Source Oral Temperature Mode Fahrenheit Temperature, Fahrenheit 98.5 Deg F Heart Rate Monitored 126 bpm HI Respiratory Rate 31 Breaths/Min HI Oxygen Saturation 95 % 04/09/2019 19:00 EST Systolic Blood Pressure 169 mmHg HI Diastolic Blood Pressure 116 mmHg HI Mean Arterial Pressure (MAP)-BMDI 136 Heart Rate Monitored 84 bpm Respiratory Rate 30 Breaths/Min HI Oxygen Saturation 96 % Oxygen Therapy Mode Nasal cannula Oxygen Flow Rate 2 Liter/Min , Measurements from flowsheet : Measurements 04/09/2019 19:05 EST Height Source Stated Height Entry Format [place] Height/Length, SAUD[place]AB[place] (ft) 6 ft Height/Length [place] 1 Inch CLINICALHEIGHT 185.42 cm [place] Body Weight 79 kg Weight Source Bed scale Weight Entry Format Metric, kilograms Weight METRIC kg 111.9 kg CLINICALWEIGHT 111.9 kg Body Surface Area (BSA) 2.35 m2 Body Mass Index 32.5 kg/m2 ME 04/09/2019 18:45 EST Height Source Stated Height Entry Format [place] Height/Length, [place]AB[place] (ft) 6 ft Height/Length [place] 1 Inch CLINICALHEIGHT 185.42 cm [place] Body Weight 79 kg Weight Source Bed scale Weight Entry Format Metric, kilograms Weight METRIC kg 111.9 kg CLINICALWEIGHT 111.9 kg Body Surface Area (BSA) 2.35 m2 Body Mass Index 32.5 kg/m2 ME , Vitals Signs (last 24 hrs) Last Charted Minimum Maximum Temp 98 (APR 10 08:00) 97.9 (APR 10 06:00) 98.5 (APR 09 20:00) Apical HR H 184 (APR 09 23:36) H 175 (APR 09 21:11) H 184 (APR 09 23:36) Mon HR 73 (APR 10 10:00) 64 (APR 10 08:30) 193 (APR 09 22:00) Resp Rate H 45 (APR 10 10:00) 16 (APR 10 03:00) H 45 (APR 10 10:00) SBP H 179 (APR 10 10:00) 116 (APR 10 04:00) H 179 (APR 10 10:00) DBP H 114 (APR 10 10:00) 75 (APR 10 05:00) H 116 (APR 09 19:00) MAP 140 (APR 10 10:00) 90 (APR 10 05:00) 140 (APR 10:00) SpO2 L 91 (APR 10:00) L 91 (APR 10:00) 100 (APR 10 09:00) General: Alert and oriented. Eye: Pupils are [...] Normal range of motion. Integumentary: Warm, Dry, [place]. Neurologic: Alert, Oriented, has some tremors. Psychiatric: Cooperative, Appropriate mood & affect. Review / Management APR 10 04:12 L 133 L 95 8 / H 214 L 3.1 H 33 1.00 \ Telemetry/ECG I personally reviewed the last 24 hour telemetry that show normal sinus rhythm, atrial fibrillation, atrial flutter and possibly SVT (see HPI for decription) Cardiac echo pending Cardiac Markers (Current Encounter/Past 24 Hours) CK MB <1.00 ng/mL 04/10/2019 05:45 ProBNP 5275 pg/mL HI 04/09/2019 20:38 Blood Gases (Current Encounter/Past 24 Hours) No Blood Gas Results Found (Past 24 Hours) Radiology Results (Last 48 hours) [id number] -- 04/09/2019 18:47 CR Chest 1 Vw [...] Upright two-view chest exam may be helpful. Results review: Labs (Last four charted values) WBC 6.0 (APR 10) 6.7 (APR 09) HB L 12.7 (APR 10) L 12.7 (APR 09) HCT L 37.9 (APR 10) L 38.0 (APR 09) Plt 251 (APR 10) 250 (APR 09) Na L 133 (APR 10) 140 (APR 09) K L 3.1 (APR 10) 3.6 (APR 09) Cl L 95 (APR 10) L 100 (APR 09) CO2 H 33 (APR 10) H 34 (APR 09) BUN 8 (APR 10) 9 (APR 09) Cr 1.00 (APR 10) 1.00 (APR 09) Glu R H 214 (APR 10) 85 (APR 09) Ca L 8.0 (APR 10) 8.8 (APR 09) Lactic 0.8 (APR 09) PT 10.7 (APR 09) INR 1.0 (APR 09) AST 19 (APR 10) 25 (APR 09) ALT 19 (APR 10) 20 (APR 09) ALK P H 170 (APR 10) H 178 (APR 09) T Bili 0.8 (APR 10) 0.6 (APR 09) PTN L 6.1 (APR 10) L 6.0 (APR 09) ALB L 2.4 (APR 10) L 2.7 (APR 09) Lipase 124 (APR 09) Troponin <0.015 (APR 10) 0.022 (APR 09) . Impression and Plan IMPRESSION: 55 yo male followed by Dr. Mathews [id number] 1 of at least one echo pending [...] excitation of a septal accessory pathway. PLAN; Retrieve [facility] records; cardiac echo Would continue amiodarone drip over the weekend as arrhythmia were multiple and very resistant. Would hold beta sonia for now; heparin reasonable at this stage as he is in persistent A. fib for now An ablation will be performed next week as arrhythmia are very difficult to control Consider aggressive potassium replacement Electronically signed by Radha Villarreal Conversion Flattening Machine Operator Cerner at 06/19/2022 4:41 PM CDT documented in this encounter Plan of Treatment Not on file documented as of this encounter Visit Diagnoses Not on filedocumented in this encounter
--- OUTSIDE RECORDS SUMMARY | 2024-08-06 19:15 | XMS_ITS | Encounter Summary ---
Author Organization [employer] Address [address] [place] [address] Care Team Providers Care Field Manager Name Role Phone Unavailable Primary Care Provider Unavailabl e Encounter Details Date Type Department Care Team (Late st Contact Info) Description 04/11/2019 Transcribed Document [facility] [place] [address] [place] [address] ProviderSharon MD [address] [place] [address] Social History Tobacco Use Types Packs/Day Years Used Date Smoking Tobacco: Never Assessed Sex and Gender Information Value Date Recorded Sex Assigned at Not on file Legal Sex Male 6:54 PM CDT Gender Identity Not on file Sexual Orientation Not on file documented as of this encounter Miscellaneous Notes * [employer]ner Conversion Note - Historical ProviderMD - 04/11/2019 10:19 AM INFORMATICS NURSE SPECIALIST Pain Assessment Entered On: 04/15/2019 1:49 EST Performed On: 04/14/2019 22:24 EST by YEIMY CASTRO RN Intervention Information: acetaminophen-oxyCODONE Performed by YEIMY CASTRO RN on 04/14/2019 21:24:00 EST acetaminophen-oxyCODONE,1Tab Oral,Pain (Moderate 4-6) Pain Assessment Pain Assessment : Follow-up assessment Pain Scale Goal : 3 Pain Scale Used : 0-10 Scale Location : Back Onset : Acute YEIMY CASTRO RN - 04/15/2019 1:49 EST Pain Scale Intensity : 2 YEIMY CASTRO RN - 04/15/2019 1:49 EST Image 4 - Images currently included in the form version of this document have not been included in the text rendition version of the form. documented in this encounter Plan of Treatment Not on file documented as of this encounter Visit Diagnoses Not on filedocumented in this encounter
--- OUTSIDE RECORDS SUMMARY | 2024-08-06 19:15 | XMS_ITS | Encounter Summary ---
Author Organization [facility] Address [address] [place] [address] Care Team Providers Care Waiter/Waitress Tavern Name Role Phone Casye Felix MD Primary Care Provider [phone] Dotty Askew MD Unavailable [phone] Encounter Details Date Type Department Care Team (Late st Contact Info) Description 07/14/2024 Telephone [facility] [address], [address] [place] [address] [place] [address] Social History Tobacco Use Types Packs/Day Years Used Date Smoking Tobacco: Every Day Cigarettes 2 42.7 Started: 12/08/1981 Smokeless Tobacco: Never Alcohol Use Standard Drinks/Week [...] Never 05/13/2024 How often do you attend jewish or mormonism serv ices? Never 05/13/2024 Do you belong to any clubs o r organizations such as jewish groups, unions, fraternal or athletic groups, or [...] and heating? Patient unable to answer 05/13/2024 [facility] - Occupational Stress [...] place to sleep or slept in a half-way (including now)? No 12/09/2023 Housing Stability Vital Sign Answer Myron e Recorded In the last 12 months, was t here a time when you were not able to pay the mortgage or rent on time? No 05/13/2024 Number of Times Moved in the Last Year Not on fi le 05/13/2024 At any time in the past 12 m [facility], were you homeless or living in a half-way (including now)? No 05/13/2024 CAGE ASSESSMENT Answer [...] drink first t olivia in the morning (EYE-NOZZLE AND SLEEVE WORKER) to steady your nerves or to get [...] as of this encounter Miscellaneous Notes * Telephone Encounter - Isabella Jordan RN - 07/14/2024 11:15 AM EDT RN called to get patient scheduled with [facility], left VM with call back number [phone]. documented in this encounter Plan of Treatment Upcoming Encounters Date Type Department Care Team (Late st Contact Info) Description 09/02/2024 10:40 AM EDT Office Visit [facility] [place] [address] [place] [address] Jakub Malave MD [address] [place] [phone] documented as of this encounter Visit Diagnoses Not on filedocumented in this encounter Additional Health Concerns Assessment Noted Time A fall risk assessment has been complete d for the patient 09/05/2020 11:56 AM EDT A Body Mass Index follow-up plan has been documented for the patient 06/01/2024 11:16 AM EDT documented as of this encounter Care Teams Waiter/Waitress Tavern Relationship Specialty Start Date End Date Casey Felix MD [address] [place] [address] PCP - General 09/05/20 Dotty Askew MD [address] [place] [address] Consulting Physician Pediatric Cardiology 09/05/20 documented as of this encounter
--- OUTSIDE RECORDS SUMMARY | 2024-08-06 19:15 | XMS_ITS | Encounter Summary ---
Author Organization [employer] Address [address] [place] [address] Care Team Providers Care Child Welfare Consultant Name Role Phone Unavailable Primary Care Provider Unavailhelen e Encounter Details Date Type Department Care Team (Late st Contact Info) Description 04/12/2019 Transcribed Document [facility] Family Medicine [address] [place] [address] ProviderSharon MD [address], [place] [address] Social History Tobacco Use Types Packs/Day Years Used Date Smoking Tobacco: Never Assessed Sex and Gender Information Value Date Recorded Sex Assigned at Not on file Legal Sex Male 6:54 PM CDT Gender Identity Not on file Sexual Orientation Not on file documented as of this encounter Miscellaneous Notes * Cerner Conversion Note - Historical ProviderMD - 04/12/2019 4:49 PM 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 Respiratory: No shortness of breath, No cough. Gastrointestinal: No nausea, No vomiting. Genitourinary: No dysuria, No hematuria. Psychiatric: Hallucinations. Health Status Allergies: Allergic Reactions (Selected) No [...] influenza virus vaccine, inactivated: 0.5 mL, IntraMuscular, [id number] Documented Medications Documented Metoprolol Tartrate 100 mg [...] meal, 30 Cap, 0 Refill(s) Problem list: Medical History of obstructive sleep apnea / IMO [id number] / Confirmed SVT - Supraventricular tachycardia / SNOMED CT [id number] / Confirmed, Active Problems (7) Alcohol abuse Anxiety History of obstructive sleep apnea Hypertension Hypothyroid Smoker SVT - Supraventricular tachycardia Physical Examination VS/Measurements Vitals Signs (last 24 hrs) Last Charted Minimum Maximum Temp 98.1 (APR 12 08:00) 98.1 (APR 12 08:00) 98.6 (APR 11:00) Apical HR 69 (APR 12 10:45) 69 (APR 12 10:45) 69 (APR 12 10:45) Mon HR 71 (APR 12 12:00) 69 (APR 12 10:00) 91 (APR 12 06:00) SBP H 153 (APR 12 12:00) 115 (APR 12 07:00) H 163 (APR 11 19:00) DBP 88 (APR 12 12:00) 73 (APR 12 07:00) H 104 (APR 11 18:00) MAP 114 (APR 12 12:00) 88 (APR 12 07:00) 125 (APR 11 18:00) SpO2 L 92 (APR 12 12:00) L 74 (APR 11 18:00) 97 (APR 11 22:00) General: Alert and oriented, appears a bit older than stated age nontoxic no notable tremors. Eye: Pupils are equal, round and reactive to light, Extraocular movements are intact. HENT: Normocephalic, Oral mucosa is moist. Neck: Non-tender, No lymphadenopathy. Respiratory: Lungs are clear to auscultation, Respirations are non-labored, Breath sounds are equal, Symmetrical chest wall expansion. Cardiovascular: No murmur, Good pulses equal in all extremities, No edema. Gastrointestinal: Soft, Non-distended, Normal bowel sounds. Integumentary: Warm, Dry. Neurologic: Alert, Oriented, No focal deficits, Cranial Nerves II-XII are grossly intact. Psychiatric: Cooperative, no notable confusion. Review / Management Results review: Labs (Last four charted values) WBC 6.5 (APR 12) 7.4 (APR 11) 6.0 (APR 10) 6.7 (APR 09) HB L 12.1 (APR 12) L 11.8 (APR 11) L 12.7 (APR 10) L 12.7 (APR 09) HCT L 36.5 (APR 12) L 36.2 (APR 11) L 37.9 (APR 10) L 38.0 (APR 09) Plt 199 (APR 12) 218 (APR 11) 251 (APR 08) 250 (APR 09) Na L 132 (APR 10) L 133 (APR 11) L 133 (APR 08) 140 (APR 09) K 4.1 (APR 12) 3.5 (APR 11) 3.9 (APR 08) L 3.1 (APR 08) Cl L 99 (APR 10) L 97 (APR 11) L 95 (APR 08) L 100 (APR 09) CO2 31 (APR 12) H 33 (APR 11) H 33 (APR 10) H 34 (APR 09) BUN 7 (APR 10) 8 (APR 09) 8 (APR 08) 9 (APR 09) Cr 0.80 (APR 10) 0.90 (APR 09) 1.00 (APR 08) 1.00 (APR 09) Glu R 90 (APR 10) 101 (APR 09) H 214 (APR 08) 85 (APR 07) Ca 8.9 (B 10) 8.5 (B 09) L 8.0 (APR 08) 8.8 (APR 09) Lactic 0.8 (APR 09) PT 10.7 (APR 09) INR 1.0 (APR 09) AST 13 (APR 12) 13 (APR 11) 19 (APR 10) 25 (APR 09) ALT 16 (APR 12) L 14 (APR 11) 19 (APR 10) 20 (APR 09) ALK P H 149 (APR 12) H 155 (APR 11) H 170 (APR 10) H 178 (APR 09) T Bili 0.6 (APR 12) 0.7 (APR 11) 0.8 (APR 10) 0.6 (APR 09) PTN 6.5 (APR 12) L 6.2 (APR 11) L 6.1 (APR 10) L 6.0 (APR 09) ALB L 2.4 (APR 12) L 2.5 (APR 11) L 2.4 (APR 10) L 2.7 (APR 09) Lipase 124 (APR 09) Troponin <0.015 (APR 10) 0.022 (APR 09) . ECHO 04/10/2019 Impression: [...] and Plan Aflutter with RVR prior hx ablation new finding acute systolic chf ef 40% evaluating with cardiology; stress today, results pending alcohol withdrawl treating with precedex and bzds continue to watch closely for worsening symtpoms; he tells me his last drink was , so he remains in the high risk window HTN- Alcohol abuse- nearly a fifth of liquor daily mild hyponatremia dec ivf, will recheck am mild anemia, stable remain in icu with close observation w/d symptoms; at risk of deterioration hr better cct 35mins gaurav rn documented in this encounter Plan of Treatment Not on file documented as of this encounter Visit Diagnoses Not on filedocumented in this encounter
--- OUTSIDE RECORDS SUMMARY | 2024-08-06 19:15 | XMS_ITS | Encounter Summary ---
Author Organization [employer] Address [address] [place] [address] Care Team Providers Care Apple Press Operator Name Role Phone Unavailable Primary Care Provider Unavailabl e Encounter Details Date Type Department Care Team (Late st Contact Info) Description 04/12/2019 Transcribed Document [facility] Family Medicine [address] [place] [address] ProviderSharon MD [address] [place] [address] Social History Tobacco Use Types Packs/Day Years Used Date Smoking Tobacco: Never Assessed Sex and Gender Information Value Date Recorded Sex Assigned at Not on file Legal Sex Male 6:54 PM CDT Gender Identity Not on file Sexual Orientation Not on file documented as of this encounter Miscellaneous Notes * Cerner Conversion Note - Sharon ProviderMD - 04/12/2019 11:58 AM 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 Living Situation : Home Patient Lives With : Significant other(s) Is the Patient a Caregiver at Home? : No Emergency Contact #1 : Gracie Chowdary Emergency Contact #1 Emergency Contact #1 Relationship : Signigjunitot Other Emergency Contact #2 : Kaye Leos Emergency Contact #2 Emergency Contact #2 Relationship : daughter Enter Doctors Name : Kev Melendez Does Patient have PCP Listed? : Yes Medical Durable Power of Hydrocrane Operator Name : None Legal Guardian : No Is Guardianship Needed : No JUS MATAMOROS Rn-Choir Member - 04/12/2019 11:58 EST Initial Assessment II Sensory and Motor Deficits : Weakness Current Home Treatments and Equipment : None JUS MATAMOROS Rn-Choir Member - 04/12/2019 11:58 EST Discharge Needs I Anticipated Discharge Date : 04/15/2019 EST Anticipated Discharge To, CM : Home with family care, Home with home health, halfway facility Current Home Treatment/Equipment : Current Home Treatment/Equipment No qualifying data available. Documentation Status Complete : Yes JUS MATAMOROS Rn-Choir Member - 04/12/2019 11:58 EST Discharge Needs II Professional Skilled Services : Professional Skilled Services No qualifying data available. Needs Assistance with Transportation : No Discharge Options Discussed with Patient : Home Health, Substance abuse/mental health JUS MATAMOROS Rn-Choir Member - 04/12/2019 11:58 EST Narrative Note Narrative Note : Day 1 - Chest Pain Hx ETOH Abuse, Htn, CHF Low Readmission Risk Cardiology Pt to have Lexiscan today; bedside RN Virgil states she needs consent from NO. CM spoke with pt's Pillo Chowdary and explained without HCS/AD - need to obtain consent from NOK - she identifies pt's two daughters Kaye Leos [phone]; Audelia Richardson [phone]. Informed Virgil of numbers to contact [facility] for consent. Met pt - awake in bed; pt states his PCP is Kev Melendez in [place]; that he requires assistance at home with his ADL's from Pillo Chowdary. Pt has no hx of hhc or STR - has had inpatient ETOH Rehab at [facility] in [place]. Anticipate pt will need [facility] referral when medically stable for discharge. JUS MATAMOROS Rn-Choir Member - 04/12/2019 11:58 EST documented in this encounter Plan of Treatment Not on file documented as of this encounter Visit Diagnoses Not on filedocumented in this encounter
--- OUTSIDE RECORDS SUMMARY | 2024-08-06 19:15 | XMS_ITS | Encounter Summary ---
Author Organization [employer] Address [address] [place] [address] Care Team Providers Care Volunteer Services Specialist Name Role Phone Unavailable Primary Care Provider Unavailabl e Encounter Details Date Type Department Care Team (Late st Contact Info) Description 04/11/2019 Transcribed Document [facility] [place] [facility] [address] [place] [address] ProviderSharon MD [address], [place] [address] Social History Tobacco Use Types Packs/Day Years Used Date Smoking Tobacco: Never Assessed Sex and Gender Information Value Date Recorded Sex Assigned at Not on file Legal Sex Male 6:54 PM CDT Gender Identity Not on file Sexual Orientation Not on file documented as of this encounter Miscellaneous Notes * Cerner Conversion Note - Historical ProviderMD - 04/11/2019 5:00 PM 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 Conversion Movie Projectionist Karthik at 06/19/2022 4:31 PM CDT documented in this encounter Plan of Treatment Not on file documented as of this encounter Visit Diagnoses Not on filedocumented in this encounter
--- NOTE | 2024-08-06 19:54 | HMH.EDGENADL ---
Discharge Plan Disposition Patient Disposition: Admitted Prescriptions Prescriptions: No Action folic acid 1 mg tablet 1 mg PO DAILY Qty: 90 0RF ferrous sulfate 324 mg (65 mg iron) tablet,delayed release (DR/EC) 324 mg PO DAILY Qty: 90 0RF Eliquis 5 mg tablet 5 mg PO BID Qty: 180 0RF metoprolol succinate 100 mg tablet extended release 24 hr 100 mg PO DAILY Qty: 30 2RF digoxin 125 mcg (0.125 mg) tablet 125 mcg PO DAILY sertraline 100 mg tablet 100 mg PO DAILY Patient Comments: TAKE ONE TABLET BY MOUTH EVERY DAY thiamine HCl (vitamin B1) 100 mg tablet 100 mg PO DAILY Patient Comments: TAKE ONE TABLET BY MOUTH EVERY DAY levothyroxine 125 mcg tablet 125 mcg PO DAILYDM Patient Comments: TAKE ONE TABLET BY MOUTH EVERY DAY IN THE MORNING trazodone 100 mg Tablet 100 mg PO HS spironolactone 25 mg Tablet 25 mg PO DAILY 30 Days Qty: 30 0RF levofloxacin 750 mg Tablet 750 mg PO 1100 4 Days Qty: 4 0RF bumetanide 2 mg tablet 2 mg PO DAILY Qty: 30 0RF Referrals Follow up/Referrals: Provider,Referral, MD [Primary Care Provider, Medical] - See instructions Clinical Impressions Clinical Impression: Atrial flutter with rapid ventricular response, Alcoholism, Falls frequently, Noncompliance with medication regimen Print Language Print Language: Frisian Discharge ED Provider: Susie Alford General Adult HPI General Stated complaint: Fall Time Seen by Provider: 08/06/24 19:11 History of Present Illness HPI narrative: Patient is a 59-year-old male who is an alcoholic who drinks 1/5 of liquor daily who has been having frequent falls right in today by EMS because he called the multiple times today and the third time they went to his the house they told him he had no choice but to come to the hospital. Patient states he did not want to come here. Has a known history of atrial fibrillation with rapid ventricular response he was recently in a hospital for this was on amiodarone at that time cardiology stopped and started him on digoxin. Patient's been noncompliant with all of his medications he admits to this. States has been a long time since he is taking any of his medications including his Eliquis. States he does want to stop drinking and he does not withdraw significantly. Related Data Home Medications ?Medication ?Instructions ?Recorded ?Confirmed digoxin 125 mcg (0.125 mg) tablet 125 mcg PO DAILY 05/12/24 07/17/24 levothyroxine 125 mcg tablet 125 mcg PO DAILYDM 07/16/24 07/17/24 sertraline 100 mg tablet 100 mg PO DAILY 07/16/24 07/17/24 thiamine HCl (vitamin B1) 100 mg 100 mg PO DAILY 07/16/24 07/17/24 tablet trazodone 100 mg tablet 100 mg PO HS 07/17/24 07/17/24 Previous Rx's ?Medication ?Instructions ?Recorded apixaban 5 mg tablet (Eliquis) 5 mg PO BID #180 tabs 06/15/24 ferrous sulfate 324 mg (65 mg 324 mg PO DAILY #90 tabs 06/15/24 iron) tablet,delayed release folic acid 1 mg tablet 1 mg PO DAILY #90 tabs 06/15/24 metoprolol succinate 100 mg 100 mg PO DAILY #30 tabs 06/15/24 tablet,extended release 24 hr bumetanide 2 mg tablet 2 mg PO DAILY #30 tabs 07/20/24 levofloxacin 750 mg tablet 750 mg PO 1100 4 days #4 tabs 07/20/24 spironolactone 25 mg tablet 25 mg PO DAILY 30 days #30 tabs 07/20/24 Allergies Allergy/AdvReac Type Severity Reaction Status Date / Time hydrochlorothiazide AdvReac Unknown Other Verified 06/15/24 10:14 [facility] Disclaimer: The information contained in this section may have been updated after the patient was seen, as this information can be updated by other users. 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 Testicular swelling, right Hypertension Tobacco abuse Alcohol abuse Tobacco use Paroxysmal atrial fibrillation Alcoholism Anxiety GERD (gastroesophageal reflux disease) Laceration of finger, left, complicated COPD (chronic obstructive pulmonary disease) Pulmonary hypertension Cirrhosis, alcoholic CHF (congestive heart failure) Hypertension Atrial fibrillation with rapid ventricular response Exposure to COVID-19 virus Surgical History History of discectomy History of cardiac radiofrequency ablation Family History Other Cancer Hypertension Stroke Substance abuse Social History (Updated 07/16/24 @ 22:53 by Yanet Iniguez RN) Smoking Status: Current every day smoker tobacco type: cigarettes packs per day: 2 alcohol intake: current alcohol intake frequency: 3 or more drinks per day substance use type: denies use current occupational status: employed Travel in the last 8 weeks?: None household members: significant other housing: house 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 current occupational exposures/hazards: No caffeine: Yes Have you lived/traveled outside US in past 30 days?: No Contact w/someone who lives/traveled outside US past 30 days?: No Exposure to someone with infectious disease in past 14 days?: No Do you have a fever (greater than 100.4 F or 38 C)?: No Have you tested positive for COVID-19?: No Exposed to someone with COVID-19 in past 14 days?: No Do you have a sore throat?: No Do you have a cough?: No Do you have any weakness?: No Do you have any diarrhea?: No Are you experiencing any unusual bleeding?: No Do you have any muscle aches/pain?: No Do you have any abdominal pain?: No Are you experiencing loss of taste or smell?: No Other Medical History Have you received the Flu Vaccine for this season: No Have you received the Pneumonia Vaccine: No ROS Obtained: Yes All systems reviewed & no additional complaints except as documented Physical Exam General General appearance: appears intoxicated (Smelled strongly of alcohol) Respiratory Respiratory exam: Present normal lung sounds bilaterally and respiratory distress Cardiovascular Cardiovascular exam: Present tachycardia and irregular rhythm Neurological Exam Neurological exam: Present alert and oriented X3 Medical Decision Making Medical Records Screening: Per USPSTF and CDC recommendations, given the prevalence of disease in our region, it is our hospital?s policy to screen for HIV and viral Hepatitis for all patients aged 18 and over and those with ongoing risk factors. Paul Inquiry Pt receiving controlled substance: No Vital Signs: 08/06/24 19:00 Pulse Rate 111 H Respiratory Rate 26 H Blood Pressure 138/93 H 02 Sat by Pulse Oximetry 97 Orders (Tests/Meds): ED MEDICATIONS Generic Name Dose Route Start Last Admin Trade Name Freq PRN Reason Stop Dose Admin Diltiazem HCl 120 mg 08/06/24 19:51 Diltiazem Er 120mg Capsule PO 08/06/24 19:52 ONCE ONE Metoprolol Tartrate 25 mg 08/06/24 23:00 Metoprolol Tartrate 25mg Tablet PO 09/05/24 22:59 Q6 RYAN Discontinued Medications Generic Name Dose Route Start Last Admin Trade Name Freq PRN Reason Stop Dose Admin Diltiazem HCl 20 mg 08/06/24 19:45 Diltiazem 25mg/5ml Vial IV 08/06/24 19:46 ONCE ONE ORDERS Category Date Time Status POCUS Point of Care (ER Only) Stat Exams 08/06/24 19:43 Ordered BNP [NT Pro Brain Natriuretic Pep.] Stat Lab 08/06/24 19:35 Received CBC w/Auto Diff [Complete Blood Count Auto Diff] Stat Lab 08/06/24 19:35 Received CMP [Comprehensive Metabolic Panel] Stat Lab 08/06/24 19:35 Received Digoxin Stat Lab 08/06/24 19:35 Received Ethanol [Ethyl Alcohol] Stat Lab 08/06/24 19:35 Received Magnesium Stat Lab 08/06/24 19:35 Received PT/PTT Stat Lab 08/06/24 19:35 Received TSH [Thyroid Stimulating Hormone] Stat Lab 08/06/24 19:35 Received Trop I [Troponin I] Stat Lab 08/06/24 19:35 Received Troponin I Q3H Lab 08/06/24 22:45 Ordered Troponin I Q3H Lab 08/07/24 01:45 Ordered Medical Decision Narrative: Patient with above history and physical presents with multiple falls no evidence of trauma or injuries from those falls he is on anticoagulation but I do not feel necessary right now to get any significant trauma workup. Patient is also been noncompliant with his anticoagulation so he is likely not anticoagulated at all. Patient has A-fib RVR he has an EF of 55% therefore myself and Dr. Barrie Harris we agreed that he could be started on diltiazem. IV diltiazem has been given in the emergency department and some oral medications were added on top of this in conjunction with discussion with our hospital medicine provider. Labs pending and patient was admitted to hospital medicine for further evaluation and management. Patient is agreeable to be admitted. He also states that he would like to stop drinking if possible. He will be placed on CIWA protocol further anticoagulation will be initiated inpatient. Critical Care Critical Care Time Critical Care Time: Yes Attestation: On 08/06/24, the high probability of a clinically significant, sudden or life threatening deterioration of the following system(s) required my full and direct attention, intervention and personal management. The time I documented below is in addition to time spent performing reported procedures but includes the following listed in this critical care notation. Total Time Total Critical Care Time: 35
--- NOTE | 2024-08-06 20:05 | EXP.HP ---
History of Present Illness *Admission Date: 08/06/24 *Reason for visit:: Falls *History of present illness: 59-year-old man presents the ER via EMS. He is acutely intoxicated and reportedly fell 3 because he kept calling EMS. After the third fall they said he needed to be evaluated in the emergency department. In the emergency department he is in atrial fibrillation RVR. He is noncompliant with medications. He is frequently evaluated in the ER due to similar complaints and leaves AMA. Currently he is wanting to be admitted and is agreeable. He does have a history of complicated alcohol detox with withdrawal. Other than his falls he is largely asymptomatic, however he is acutely intoxicated and unable to provide further history. Emergency department ultrasound of abdomen demonstrated no ascites. Bedside echo performed by myself demonstrated normal LV function. Patient was given 20 mg IV diltiazem with improvement of ventricular response. He was given oral diltiazem and oral Lopressor and started on Xarelto. no Further history able to be obtained secondary to alcohol tox occasional. History independently obtained. Discussed case with ER physician. Independently interpreted lab results and diagnostics. Prior records reviewed. [facility] Disclaimer: The information contained in this section may have been updated after the patient was seen, as this information can be updated by other users. 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 Testicular swelling, right Hypertension Tobacco abuse Alcohol abuse Tobacco use Paroxysmal atrial fibrillation Alcoholism Anxiety GERD (gastroesophageal reflux disease) Laceration of finger, left, complicated COPD (chronic obstructive pulmonary disease) Pulmonary hypertension Cirrhosis, alcoholic CHF (congestive heart failure) Hypertension Atrial fibrillation with rapid ventricular response Exposure to COVID-19 virus Surgical History History of discectomy History of cardiac radiofrequency ablation Family History Other Cancer Hypertension Stroke Substance abuse Social History (Updated 07/16/24 @ 22:53 by LEÓN De La Garza Smoking Status: Current every day smoker tobacco type: cigarettes packs per day: 2 alcohol intake: current alcohol intake frequency: 3 or more drinks per day substance use type: denies use current occupational status: employed Travel in the last 8 weeks?: None household members: significant other housing: house 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 current occupational exposures/hazards: No caffeine: Yes Have you lived/traveled outside [place] in past 30 days?: No Contact w/someone who lives/traveled outside US past 30 days?: No Exposure to someone with infectious disease in past 14 days?: No Do you have a fever (greater than 100.4 F or 38 C)?: No Have you tested positive for COVID-19?: No Exposed to someone with COVID-19 in past 14 days?: No Do you have a sore throat?: No Do you have a cough?: No Do you have any weakness?: No Do you have any diarrhea?: No Are you experiencing any unusual bleeding?: No Do you have any muscle aches/pain?: No Do you have any abdominal pain?: No Are you experiencing loss of taste or smell?: No Other Medical History Have you received the Flu Vaccine for this season: No Have you received the Pneumonia Vaccine: No Review of Systems Review of Systems Review of systems:: unable to obtain Review of systems (narrative): Intoxication Meds Home Medications and Allergies Home Medications ?Medication ?Instructions ?Recorded ?Confirmed ?Type digoxin 125 mcg (0.125 mg) tablet 125 mcg PO DAILY 05/12/24 07/17/24 History apixaban 5 mg tablet (Eliquis) 5 mg PO BID #180 tabs 06/15/24 07/17/24 Rx ferrous sulfate 324 mg (65 mg 324 mg PO DAILY #90 tabs 06/15/24 07/17/24 Rx iron) tablet,delayed release folic acid 1 mg tablet 1 mg PO DAILY #90 tabs 06/15/24 07/17/24 Rx metoprolol succinate 100 mg 100 mg PO DAILY #30 tabs 06/15/24 07/17/24 Rx tablet,extended release 24 hr levothyroxine 125 mcg tablet 125 mcg PO DAILYDM 07/16/24 07/17/24 History sertraline 100 mg tablet 100 mg PO DAILY 07/16/24 07/17/24 History thiamine HCl (vitamin B1) 100 mg 100 mg PO DAILY 07/16/24 07/17/24 History tablet trazodone 100 mg tablet 100 mg PO HS 07/17/24 07/17/24 History bumetanide 2 mg tablet 2 mg PO DAILY #30 tabs 07/20/24 Rx levofloxacin 750 mg tablet 750 mg PO 1100 4 days #4 tabs 07/20/24 Rx spironolactone 25 mg tablet 25 mg PO DAILY 30 days #30 tabs 07/20/24 Rx New Prescriptions to Start Prescriptions: Allergies Allergy/AdvReac Type Severity Reaction Status Date / Time hydrochlorothiazide AdvReac Unknown Other Verified 06/15/24 10:14 Exam Data for Last 24 hours Vital signs and Labs for Last 24 Hours: Pulse Resp BP Pulse Ox 111 H 26 H 138/93 H 97 08/06/24 19:00 08/06/24 19:00 08/06/24 19:00 08/06/24 19:00 Constitutional Constitutional: no acute distress, disheveled, cooperative and combative Comments: Acute intoxicated *Routine HEENT Exam Head: Present normocephalic Eye: Present EOMI and PERRL ENT: Present mucous membranes moist *Routine Neck Exam Neck: Present supple; Absent lymphadenopathy *Routine Respiratory Exam Respiratory: Present CTA bilaterally *Routine Cardiovascular Exam Cardiovascular: Present Normal S1, Normal S2, tachycardia and irregularly irregular; Absent murmur *Routine Abdominal Exam Abdominal: Present distended; Absent tenderness *Routine Rectal Exam Rectal:: deferred *Routine Genitalia Exam Genitalia:: deferred *Routine Extremities Exam Extremities: Absent cyanosis, clubbing or edema *Routine Skin Exam Skin: Present warm; Absent rash *Routine Neurological Exam Neurological: Present alert and oriented X3 Assessment and Plan *Assessment and plan (1) Noncompliance with medication regimen: Status: Acute Category: Medical Code(s): Z91.148 - Patient's other noncompliance with medication regimen for other reason (2) Falls frequently: Status: Acute Category: Medical Code(s): R29.6 - Repeated falls (3) Acute on chronic heart failure with preserved ejection fraction (HFpEF): Status: Acute Category: Medical Code(s): I50.33 - Acute on chronic diastolic (congestive) heart failure (4) Atrial fibrillation with rapid ventricular response: Status: Acute Category: Medical Code(s): I48.91 - Unspecified atrial fibrillation (5) Alcohol abuse: Status: Acute Category: Social Hx Code(s): F10.10 - Alcohol abuse, uncomplicated (6) Tobacco use: Status: Acute Category: Social Hx Code(s): Z72.0 - Tobacco use Plan 59-year-old admitted for paroxysmal atrial fibrillation with rapid ventricular response following multiple falls while acutely intoxicated. Has a history of significant alcohol abuse with prior complicated withdrawal. Will admit for management of tachyarrhythmia in addition to his alcohol use disorder and subsequent detox Paroxysmal A-fib, RVR -Noncompliance with medical regimen - Diltiazem 120 twice daily - Lopressor 25 every 6 - Xarelto 20 qpm -Echo ordered - Telemetry Acute alcohol intoxication Alcohol use disorder, severe - CIWA protocol - Rally pack Normocytic anemia -Monitor Hypokalemia -Replete
[2024-08-06 20:12] LABS: Activated Partial Thrombo Time 22.9 seconds (22.8-30.6); INR 1.09 (0.9-1.1)
[2024-08-06] MEDS: dilTIAZem 25MG/5ML VIAL 20 MG IV (20:21)
[2024-08-06 20:24] LABS: Barbiturates Screen,Urine Negative ng/ml (<200)
[2024-08-06 20:25] LABS: Benzodiazepines Screen,Urine Negative ng/ml (<200)
[2024-08-06 20:26] LABS: Methadone Screen,Urine Negative ng/ml (<300)
[2024-08-06 20:27] LABS: Cannabinoid Screen,Urine Negative ng/ml (<50); Cocaine Screen,Urine Negative ng/ml (<300)
[2024-08-06 20:28] LABS: Opiate Screen,Urine Negative ng/ml (<300)
[2024-08-06 20:29] LABS: Phencyclidine Screen,Urine Negative ng/ml (<25)
[2024-08-06 20:34] LABS: Amphetamine/Metha Screen,Urine Negative ng/ml (<1000)
[2024-08-06 20:39] LABS: Basophils # 0.3 K/mm3 (0-0.2); Basophils % 4.6 % (0.1-2.0); Eosinophils # 0.1 Kmm3 (0.0-0.4); Eosinophils % 1.4 % (0.1-12.0); Hematocrit 32.5 % (42.0-52.0); Hemoglobin 10.2 g/dL (14.1-18.0); Immature Granulocytes # 0.03 10^3uL; Immature Granulocytes % 0.5 %; Lymphocytes # 1.9 K/mm3 (0.7-4.5); Lymphocytes % 30.6 % (10-50); Mean Corpuscular HGB Conc 31.4 g/dL (31.8-35.4); Mean Corpuscular Hemoglobin 27.8 pg (27.0-31.2); Mean Corpuscular Volume 88.6 fl (80-94); Mean Platelet Volume 9.4 fl (7.4-10.4); Monocytes # 0.5 K/mm3 (0.1-1.0); Monocytes % 8.5 % (1.7-9.3); Neutrophils # 3.4 K/mm3 (1.8-7.8); Neutrophils % 54.4 % (37.0-80.0); Nucleated Red Blood Cells # 0 10^3/uL; Nucleated Red Blood Cells % 0 %; Platelet Count 405 K/mm3 (142-424); Red Blood Count 3.67 M/mm3 (4.60-6.20); Red Cell Distribution Width 20.2 % (11.5-17.5); Red Cell Distribution Width-SD 63.2 fL; White Blood Count 6.3 K/mm3 (4.8-10.8)
[2024-08-06] MEDS: dilTIAZem ER 120MG CAPSULE 120 MG PO (20:39)
[2024-08-06 20:40] LABS: Alanine Aminotransferase 15 U/L (12-78); Albumin/Globulin Ratio 0.8 (1.1-1.8); Alkaline Phosphatase 316 U/L (38-126); Anion Gap 9.4 mEq/L (5-15); Aspartate Amino Transferase 44 U/L (17-59); Bilirubin,Total 0.7 mg/dl (0.2-1.3); Blood Urea Nitrogen 9 mg/dl (9-20); Calcium 7.9 mg/dl (8.4-10.2); Carbon Dioxide 25 mmol/L (22.0-30.0); Chloride 107 mmol/L (98-107); Creatinine Clearance Estimated 106 mL/min (50-200); Estimated Glomerular Filt Rate 62 ml/min (>60); GFR (African American) 75 ML/MIN (>60); Globulin 3.6 g/dL (1.3-3.2); Glucose 77 mg/dl (74-100); Magnesium 1.4 mg/dl (1.6-2.3); Potassium 3.4 mmoL/L (3.5-5.1); Sodium 138 mmol/L (136-145); Total Protein,Serum 6.6 g/dl (6.3-8.2)
[2024-08-06 20:43] LABS: Ethyl Alcohol 260 mg/dl (0-10)
[2024-08-06] MEDS: METOPROLOL TARTRATE 25MG TABLET 25 MG PO ×2 (20:43→23:10)
[2024-08-06 20:44] LABS: Digoxin < 0.40 ng/ml (0.2-2.00)
[2024-08-06 20:52] LABS: NT Pro Brain Natriuretic Pep. 5390 pg/mL (0-125)
[2024-08-06 20:54] LABS: Troponin I < 0.01 ng/ml (0.00-0.034)
--- NOTE | 2024-08-06 21:24 | PC.NURSE ---
Patient arrived to floor via stretcher from ED at 21:20.
--- NOTE | 2024-08-06 22:14 | PC.NURSE ---
Patient went over med list, patient stated he doesnt take his medications every day as he is supposed to.
--- NOTE | 2024-08-06 22:22 | HMH.PHAINT1 ---
Pharmacy Intervention Comments: HOME MEDICATION LIST VERIFIED USING LIST FROM OUTPATIENT PHARMACY AND MOST RECENT DISCHARGE FROM THIS FACILITY
[2024-08-06] MEDS: FOLIC ACID 1MG TABLET 1 MG PO (22:59)
[2024-08-06] MEDS: MVI, ADULT NO.1 WITH VIT K 10 ML, THIAMINE HCL 100 MG, MAGNESIUM SULFATE 2 GM in LACTAT... 150 ML IV (22:59)
[2024-08-06] MEDS: THIAMINE 100MG TABLET 100 MG PO (23:00)
[2024-08-06] MEDS: PANTOPRAZOLE 40MG TABLET 40 MG PO (23:10)
[2024-08-07] VITALS (8 sets, daily range): BP systolic 114–160; BP diastolic 74–106; PULSE 66–82; RESP 16–20; TEMP 36.3–37.2; O2SAT 93–99; BMI 36.4
[2024-08-07 00:45] LABS: POC Glucose,Bedside 94 (70-110)
[2024-08-07] MEDS: MAGNESIUM SULFATE IN WATER 2 GM/50 ML PIGGYBACK IV ×3 (01:30→03:52)
[2024-08-07] MEDS: POTASSIUM CHLORIDE 20MEQ TAB 40 MEQ PO ×2 (01:30→04:30)
[2024-08-07 03:00] LABS: Troponin I < 0.01 ng/ml (0.00-0.034)
--- NOTE | 2024-08-07 03:59 | PC.NURSE ---
New Admit. Electrolyte protocol initiated. Pt receiving rally bag as well. Seizure precautions. Pt is on cwall scoring 0 upon admission. v/s, ox4. Bed alarm set due to unstable gait, male purewick in place. Pt was placed on 2LNC due to desat when sleeping; pt is a mouth breather. Pt is running a-fib on tele, but controlled. Pt denies pain and chest discomfort/palpitations. Plan of care ongoing.
[2024-08-07] MEDS: METOPROLOL TARTRATE 25MG TABLET 25 MG PO (04:30)
[2024-08-07 08:02] LABS: Basophils # 0.2 K/mm3 (0-0.2); Basophils % 3.6 % (0.1-2.0); Eosinophils # 0.2 Kmm3 (0.0-0.4); Hematocrit 29.8 % (42.0-52.0); Hemoglobin 9.2 g/dL (14.1-18.0); Immature Granulocytes # 0.01 10^3uL; Immature Granulocytes % 0.2 %; Lymphocytes # 2.3 K/mm3 (0.7-4.5); Lymphocytes % 38.9 % (10-50); Mean Corpuscular HGB Conc 30.9 g/dL (31.8-35.4); Mean Corpuscular Hemoglobin 27.6 pg (27.0-31.2); Mean Corpuscular Volume 89.5 fl (80-94); Mean Platelet Volume 9.6 fl (7.4-10.4); Monocytes # 0.6 K/mm3 (0.1-1.0); Monocytes % 9.5 % (1.7-9.3); Neutrophils # 2.7 K/mm3 (1.8-7.8); Neutrophils % 44.8 % (37.0-80.0); Nucleated Red Blood Cells # 0.02 10^3/uL; Nucleated Red Blood Cells % 0.3 %; Platelet Count 323 K/mm3 (142-424); Red Blood Count 3.33 M/mm3 (4.60-6.20); Red Cell Distribution Width 20.1 % (11.5-17.5); Red Cell Distribution Width-SD 63.7 fL; White Blood Count 5.9 K/mm3 (4.8-10.8)
[2024-08-07 09:13] LABS: Cholesterol 107 mg/dl (140-200); Magnesium 2.4 mg/dl (1.6-2.3); Triglycerides 71 mg/dl (30-150); VLDL Cholesterol 14 mg/dL (0-40)
[2024-08-07 09:14] LABS: Chol/HDL Ratio 2.7 (1-3.5); HDL Cholesterol 39 mg/dl (40-60)
[2024-08-07 09:17] LABS: INR 1.08 (0.9-1.1); Prothrombin Time 11.9 seconds (10.1-12.5)
[2024-08-07 09:25] LABS: Direct LDL Cholesterol 40.62 mg/dL (100-129)
[2024-08-07] MEDS: SERTRALINE 100MG TABLET 100 MG PO (09:36)
[2024-08-07] MEDS: LEVOTHYROXINE 125MCG (0.125MG) TAB 125 MCG PO (09:36)
[2024-08-07] MEDS: METOPROLOL SUCCINATE XL 100MG TABLET 100 MG PO (09:36)
[2024-08-07] MEDS: THIAMINE 100MG TABLET 100 MG PO (09:36)
[2024-08-07] MEDS: dilTIAZem ER 120MG CAPSULE 120 MG PO (09:36)
[2024-08-07] MEDS: BUMETANIDE 1 MG TABLET 2 MG PO (09:37)
[2024-08-07] MEDS: FOLIC ACID 1MG TABLET 1 MG PO (11:10)
[2024-08-07 11:20] LABS: POC Glucose,Bedside 69 (70-110)
[2024-08-07] MEDS: ONDANSETRON 4MG/2ML VIAL 4 MG IV (12:16)
--- NOTE | 2024-08-07 13:57 | HMH.PTEV ---
Physical Therapy Evaluation Rehab PT IP Evaluation Start: 08/06/24 22:21 Freq: ONCE Status: Active Protocol: Document 08/07/24 13:34 AMANDA (Rec: 08/07/24 13:57 AMANDA [id number]) Subjective/History History History Pt is a 59 y/o male who presented to [facility] ED via EMS on 08/06/24. Per history & physical note, he is acutely intoxicated and reportedly fell 3 because he kept calling EMS. After the third fall they said he needed to be evaluated in the emergency department. In the emergency department he is in atrial fibrillation RVR. He is noncompliant with medications. He is frequently evaluated in the ER due to similar complaints and leaves AMA.Currently he is wanting to be admitted and is agreeable. He does have a history of complicated alcohol detox with withdrawal. Other than his falls he is largely asymptomatic, however he is acutely intoxicated and unable to provide further history. Emergency department ultrasound of abdomen demonstrated no ascites. Bedside echo performed by myself demonstrated normal LV function. 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 Pt reports he lives alone in an apartment without MALLORY. Pt states he cannot remember the last time he has walked, states he uses a computer rolling chair for all mobility. Pt states he was given a rollator walker and wheelchair but states he slides and feels unsafe when using them. Pt states he scoots from his computer chair to the bathroom and is able to transfer to the toilet I. Pt states he is independent with dressing and bathing. Pt states he fell 3x in 1 day and has had some intermittent L hip pain since rated 0/10 at rest and 8/ 10 with movement. Pt denies having family members close by but states he has 3 supportive neighbors. Pt denies wearing oxygen at home, currently on 2LNC. Pt reports he just vomited ~30 minutes ago and still feels nauseous and unwilling to participate in functional mobility assessment. PT will assess functional mobility at next available date. Vitals at rest: 96% Spo2 on 2LNC, 22 RR, 65 HR New diagnosis of No cancer in past 12 months? [facility] How much help from another person do you currently need... Turning from your None back to your side while in a flat bed without using bedrails? Moving from lying on A little back to sitting on the side of a flat bed without using bedrails? Moving to and from a A little bed to a chair ( including a wheelchair)? Standing up from a A lot chair using your arms? (e.g., wheelchair, bedside chair) Walking in hospital A lot room? Climbing 3-5 steps A lot with a railing? Mobility Score 16 Mobility Level [facility] 5 Stand (1 or more minutes) Mobility Calculator Rehab PT IP Eval Objective Appearance Patient Behavior Appropriate Patient Orientation Place,Name,Birthday Difficulty following none instructions Speech Pattern Clear,Appropriate Ambulation Patient Able to No Ambulate Rehab PT IP prob,goals,plan Problems Date of Evaluation: 08/07/24 PT IP Problems Bed Mobility,Transfers,Gait,Balance,Self care,Safety Rehab Potential Rehab Potential Fair Equipment Needs Assistive Devices Rolling / Wheeled Walker Plan PT Intervention Plan Bed Mobility,Transfers,Gait,Balance,Self care,Safety, Therapeutic Exercise Other Intervention 1-2x/day Plan PT Plan Frequency Daily Duration LOS Discharge Goals Bed Transfer Ability Minimal x 1 (25% assist) Sit to Stand Chair Minimal x 1 (25% assist) Transfer Ability Ambulation Assistive Rolling Walker Device Ambulation Distance 10 (feet) Discharge Plan PT Discharge Plan Pt ill and unwilling to participate in functional mobility assessment this date therefore PT will assess at next available date. Based on subjective history, pt is unable to ambulate and uses a rolling chair for all mobility with history of multiple falls. Pt will benefit from skilled PT while at [facility] and continue to benefit from rehab placement s/p discharge from [facility] once deemed medically stable by MD. Eval Complexity Eval Charge Codes 59139 - Moderate Complexity PHYSICIAN CERTIFICATION: I certify the specified therapy services for Alonso Richardson are required, authorized, and reviewed every 30 days.
--- NOTE | 2024-08-07 16:10 | EXP.DC.SUM ---
General Admission date:: 08/06/24 HPI HPI HPI: 59-year-old man presents the ER via EMS. He is acutely intoxicated and reportedly fell 3 because he kept calling EMS. After the third fall they said he needed to be evaluated in the emergency department. In the emergency department he is in atrial fibrillation RVR. He is noncompliant with medications. He is frequently evaluated in the ER due to similar complaints and leaves AMA. Currently he is wanting to be admitted and is agreeable. He does have a history of complicated alcohol detox with withdrawal. Other than his falls he is largely asymptomatic, however he is acutely intoxicated and unable to provide further history. Emergency department ultrasound of abdomen demonstrated no ascites. Bedside echo performed by myself demonstrated normal LV function. Patient was given 20 mg IV diltiazem with improvement of ventricular response. He was given oral diltiazem and oral Lopressor and started on Xarelto. no Further history able to be obtained secondary to alcohol tox occasional. History independently obtained. Discussed case with ER physician. Independently interpreted lab results and diagnostics. Prior records reviewed. Hospital Course Hospital Course Hospital Course: Rebecca will coordinate appointment with [facility]. Discharged with gabapentin, naltrexone for alcohol use disorder. Total time spent on discharge: 32 minutes on chart review, counseling, documentation, and direct care with patient. Exam Data for Last 24 hours Vital signs and Labs for Last 24 Hours: Temp Pulse Resp BP Pulse Ox O2 Del Method O2 Flow Rate 98.2 F 78 20 139/97 H 99 Nasal Cannula 2 08/07/24 04:00 08/07/24 12:00 08/07/24 12:00 08/07/24 12:00 08/07/24 12:00 08/07/24 13:00 08/07/24 13:00 Laboratory Results - last 24 hr 08/06/24 19:35: WBC 6.3, RBC 3.67 L, Hgb 10.2 L, Hct 32.5 L, MCV 88.6, MCH 27.8, MCHC 31.4 L, RDW 20.2 H, Plt Count 405, MPV 9.4, Neut % (Auto) 54.4, Lymph % (Auto) 30.6, [place] % (Auto) 8.5, Eos % (Auto) 1.4, Baso % (Auto) 4.6 H, Neut # (Auto) 3.4, Lymph # (Auto) 1.9, Fallon # (Auto) 0.5, Eos # (Auto) 0.1, Baso # (Auto) 0.3 H, PT 12.0, INR 1.09, APTT 22.9, Sodium 138, Potassium 3.4 L, Chloride 107, Carbon Dioxide 25, Anion Gap 9.4, BUN 9, Creatinine 1.20, Estimated Creat Clear 106, Estimated GFR 62, Est GFR ( Amer) 75, Glucose 77, Calcium 7.9 L, Magnesium 1.4 L, Total Bilirubin 0.7, AST 44, ALT 15, Alkaline Phosphatase 316 H, Troponin I < 0.01, NT-Pro-B Natriuret Pep 5390 H, Total Protein 6.6, Albumin 3.0 L, Globulin 3.6 H, Albumin/Globulin Ratio 0.8 L, TSH 31.20 H, Digoxin < 0.40, Plasma/Serum Alcohol 260 H 08/06/24 19:45: Urine Opiates Screen Negative, Urine Methadone Screen Negative, Ur Barbituates Screen Negative, Ur Phencyclidine Scrn Negative, Ur Amphetamines Screen Negative, U Benzodiazepines Scrn Negative, Urine Cocaine Screen Negative, U Marijuana (THC) Screen Negative 08/07/24 00:27: POC Glucose 94 08/07/24 02:29: Troponin I < 0.01 08/07/24 07:50: WBC 5.9, RBC 3.33 L, Hgb 9.2 L, Hct 29.8 L, MCV 89.5, MCH 27.6, MCHC 30.9 L, RDW 20.1 H, Plt Count 323, MPV 9.6, Neut % (Auto) 44.8, Lymph % (Auto) 38.9, [place] % (Auto) 9.5 H, Eos % (Auto) 3.0, Baso % (Auto) 3.6 H, Neut # (Auto) 2.7, Lymph # (Auto) 2.3, Fallon # (Auto) 0.6, Eos # (Auto) 0.2, Baso # (Auto) 0.2, PT 11.9, INR 1.08, Magnesium 2.4 H D, Triglycerides 71, Cholesterol 107 L, LDL Cholesterol Direct 40.62 L, VLDL Cholesterol 14, HDL Cholesterol 39 L, Cholesterol/HDL Ratio 2.7 08/07/24 11:12: POC Glucose 69 L I & O for Last 24 hours: Intake & Output 08/04/24 08/05/24 08/06/24 08/07/24 23:59 23:59 23:59 23:59 Intake Total 490 / 490 Output Total 300 / 300 Balance 190 / 190 Weight 113.398 kg 124.738 kg Results Data Completed and Pending Labs on day of discharge: Labs from last 24 hours 08/07/24 08/07/24 08/07/24 11:12 07:50 02:29 WBC 5.9 RBC 3.33 L Hgb 9.2 L Hct 29.8 L MCV 89.5 MCH 27.6 MCHC 30.9 L RDW 20.1 H Plt Count 323 MPV 9.6 Neut % (Auto) 44.8 Lymph % (Auto) 38.9 Fallon % (Auto) 9.5 H Eos % (Auto) 3.0 Baso % (Auto) 3.6 H Neut # (Auto) 2.7 Lymph # (Auto) 2.3 Fallon # (Auto) 0.6 Eos # (Auto) 0.2 Baso # (Auto) 0.2 PT 11.9 INR 1.08 APTT Sodium Potassium Chloride Carbon Dioxide Anion Gap BUN Creatinine Estimated Creat Clear Estimated GFR Est GFR ( Amer) Glucose POC Glucose 69 L Calcium Magnesium 2.4 H D Total Bilirubin AST ALT Alkaline Phosphatase Troponin I < 0.01 NT-Pro-B Natriuret Pep Total Protein Albumin Globulin Albumin/Globulin Ratio Triglycerides 71 Cholesterol 107 L LDL Cholesterol Direct 40.62 L VLDL Cholesterol 14 HDL Cholesterol 39 L Cholesterol/HDL Ratio 2.7 TSH Digoxin Urine Opiates Screen Urine Methadone Screen Ur Barbituates Screen Ur Phencyclidine Scrn Ur Amphetamines Screen U Benzodiazepines Scrn Urine Cocaine Screen U Marijuana (THC) Screen Plasma/Serum Alcohol 08/07/24 08/06/24 08/06/24 00:27 19:45 19:35 WBC 6.3 RBC 3.67 L Hgb 10.2 L Hct 32.5 L MCV 88.6 MCH 27.8 MCHC 31.4 L RDW 20.2 H Plt Count 405 MPV 9.4 Neut % (Auto) 54.4 Lymph % (Auto) 30.6 Fallon % (Auto) 8.5 Eos % (Auto) 1.4 Baso % (Auto) 4.6 H Neut # (Auto) 3.4 Lymph # (Auto) 1.9 Fallon # (Auto) 0.5 Eos # (Auto) 0.1 Baso # (Auto) 0.3 H PT 12.0 INR 1.09 APTT 22.9 Sodium 138 Potassium 3.4 L Chloride 107 Carbon Dioxide 25 Anion Gap 9.4 BUN 9 Creatinine 1.20 Estimated Creat Clear 106 Estimated GFR 62 Est GFR ( Amer) 75 Glucose 77 POC Glucose 94 Calcium 7.9 L Magnesium 1.4 L Total Bilirubin 0.7 AST 44 ALT 15 Alkaline Phosphatase 316 H Troponin I < 0.01 NT-Pro-B Natriuret Pep 5390 H Total Protein 6.6 Albumin 3.0 L Globulin 3.6 H Albumin/Globulin Ratio 0.8 L Triglycerides Cholesterol LDL Cholesterol Direct VLDL Cholesterol HDL Cholesterol Cholesterol/HDL Ratio TSH 31.20 H Digoxin < 0.40 Urine Opiates Screen Negative Urine Methadone Screen Negative Ur Barbituates Screen Negative Ur Phencyclidine Scrn Negative Ur Amphetamines Screen Negative U Benzodiazepines Scrn Negative Urine Cocaine Screen Negative U Marijuana (THC) Screen Negative Plasma/Serum Alcohol 260 H DS: Diagnosis Discharge Diagnosis (1) Noncompliance with medication regimen: Status: Acute Code(s): Z91.148 - Patient's other noncompliance with medication regimen for other reason (2) Falls frequently: Status: Acute Code(s): R29.6 - Repeated falls (3) Acute on chronic heart failure with preserved ejection fraction (HFpEF): Status: Acute Code(s): I50.33 - Acute on chronic diastolic (congestive) heart failure (4) Atrial fibrillation with rapid ventricular response: Status: Acute Code(s): I48.91 - Unspecified atrial fibrillation (5) Alcohol abuse: Status: Acute Code(s): F10.10 - Alcohol abuse, uncomplicated (6) Tobacco use: Status: Acute Code(s): Z72.0 - Tobacco use Meds Home Medications and Allergies Home Medications ?Medication ?Instructions ?Recorded ?Confirmed ?Type apixaban 5 mg tablet (Eliquis) 5 mg PO BID #180 tabs 06/15/24 08/06/24 Rx ferrous sulfate 324 mg (65 mg 324 mg PO DAILY #90 tabs 06/15/24 08/06/24 Rx iron) tablet,delayed release metoprolol succinate 100 mg 100 mg PO DAILY #30 tabs 06/15/24 08/06/24 Rx tablet,extended release 24 hr levothyroxine 125 mcg tablet 125 mcg PO DAILYDM 07/16/24 08/06/24 History sertraline 100 mg tablet 100 mg PO DAILY 07/16/24 08/06/24 History thiamine HCl (vitamin B1) 100 mg 100 mg PO DAILY 07/16/24 08/06/24 History tablet trazodone 100 mg tablet 100 mg PO HS 07/17/24 08/06/24 History bumetanide 2 mg tablet 2 mg PO DAILY #30 tabs 07/20/24 08/06/24 Rx spironolactone 25 mg tablet 25 mg PO DAILY 30 days #30 tabs 07/20/24 08/06/24 Rx diltiazem HCl 120 mg 120 mg PO DAILY 30 days #30 caps 08/07/24 Rx capsule,extended release 24 hr gabapentin 300 mg capsule 300 mg PO HS 30 days #30 caps 08/07/24 Rx naltrexone 50 mg tablet 50 mg PO DAILY 30 days #30 tabs 08/07/24 Rx New Prescriptions to Start Prescriptions: diltiazem HCl [place],Jorje gabapentin [place],Jorje naltrexone [place],Jorje Allergies Allergy/AdvReac Type Severity Reaction Status Date / Time hydrochlorothiazide AdvReac Unknown Other Verified 06/15/24 10:14 Discharge Plan Disposition Patient Disposition: Home, Self-Care Condition: Fair Follow up Plan Follow up with: Eduardo Mas PA [Physician [employer]el Engine Mechanic, Cardiology] - 1 week Prescriptions/Medication Reconciliation: New diltiazem HCl 120 mg Capsule,Extended Release 24hr 120 mg PO DAILY 30 Days Qty: 30 0RF naltrexone 50 mg tablet 50 mg PO DAILY 30 Days Qty: 30 0RF gabapentin 300 mg capsule 300 mg PO HS 30 Days Qty: 30 0RF Continued ferrous sulfate 324 mg (65 mg iron) tablet,delayed release (DR/EC) 324 mg PO DAILY Qty: 90 0RF Eliquis 5 mg tablet 5 mg PO BID Qty: 180 0RF metoprolol succinate 100 mg tablet extended release 24 hr 100 mg PO DAILY Qty: 30 2RF sertraline 100 mg tablet 100 mg PO DAILY thiamine HCl (vitamin B1) 100 mg tablet 100 mg PO DAILY levothyroxine 125 mcg tablet 125 mcg PO DAILYDM trazodone 100 mg Tablet 100 mg PO HS spironolactone 25 mg Tablet 25 mg PO DAILY 30 Days Qty: 30 0RF bumetanide 2 mg tablet 2 mg PO DAILY Qty: 30 0RF Discontinued digoxin 125 mcg (0.125 mg) tablet 125 mcg PO DAILY amiodarone 200 mg tablet 200 mg PO DAILY Problem Reconciliation Problems Reviewed?: Yes Patient Discharge Instructions Patient Instructions: DI for Atrial Fibrillation, How to Prevent Falls Print Language: Yoruba Providers Primary Care Provider: Provider,Referral Admit Provider: Jorje Anderson Attending Provider: Jorje Anderson
--- NOTE | 2024-08-07 17:53 | PC.NURSE ---
pt refusing rehab/placement. discharge order put in for pt to go home. this RN went over discharge paperwork, took heart monitor and pulse ox off, and got pt dressed. when this RN and the tech stood pt up, pt stated i can't leave like this, I won't be able to get in the truck. pt put back in bed and requested to talk to the doctor. MD Anderson notified
[2024-08-07] MEDS: RIVAROXABAN 10MG TABLET 20 MG PO (18:50)
[2024-08-07] MEDS: MULTIVITAMIN TABLET 1 EACH PO (18:51)
--- NOTE | 2024-08-07 19:26 | PEERSUPPORT ---
Peer Support Note Patient Information Patient Information: DOS: 08/07/2024 ? Pt admitted to returning to drink since his recent discharge, he did not go to his [facility] appointment. ? He stated he was back to drinking a fifth of [place] per day, then only a half of a fifth two days prior to his fall 3x on 08/06/2024. ? Pts friend had to call EMS two times for falling then on the third EMS brought him to the ED. ? He states that he does want to stop drinking or he will but then returns to drinking. ? Ps shared personal experience relevant to situation emphasizing the responsibility to daily actions in recovery through decisions and self-control admitting need for help and accepting through treatment and recovery support. ? Pt shared his friend is upset with him due to his drinking, and he understands why. ? Pt is concerned with the fluid weight he has gained and not being able to walk on his own. ? Ps discusses treatment options: Inpatient-Pt denied at this time. Outpatient-Agrees to [facility] Appointment- Friday08/09/2024 @2:00 PM Medication Assist-Agrees to Naltrexone with Jorje Pope Pt not able to walk or stand. Jorje Pope MD to reassess. ?
[2024-08-07 19:27] LABS: Blood Urea Nitrogen 9 mg/dl (9-20); Calcium 7.9 mg/dl (8.4-10.2); Carbon Dioxide 20 mmol/L (22.0-30.0); Chloride 110 mmol/L (98-107); Creatinine Clearance Estimated 100 mL/min (50-200); Estimated Glomerular Filt Rate 52 ml/min (>60); GFR (African American) 63 ML/MIN (>60); Glucose 61 mg/dl (74-100); Sodium 136 mmol/L (136-145)
[2024-08-07] MEDS: TRAZODONE 50MG TABLET 100 MG PO (20:22)
[2024-08-07] MEDS: PANTOPRAZOLE 40MG TABLET 40 MG PO (20:22)
[2024-08-07] MEDS: BUMETANIDE 1MG/4ML VIAL 2 MG IV (20:27)
--- NOTE | 2024-08-07 21:28 | P.PN_ITS ---
Subjective *Date: 08/07/24 *Time: 21:28 Exam Data for Last 24 hours Vital signs and Labs for Last 24 Hours: Temp Pulse Resp BP Pulse Ox O2 Del Method O2 Flow Rate 98.9 F 82 16 155/106 H 97 Nasal Cannula 2 08/07/24 20:00 08/07/24 20:00 08/07/24 20:00 08/07/24 20:00 08/07/24 20:00 08/07/24 21:00 08/07/24 21:00 Laboratory Results - last 24 hr 08/07/24 00:27: POC Glucose 94 08/07/24 02:29: Troponin I < 0.01 08/07/24 07:50: WBC 5.9, RBC 3.33 L, Hgb 9.2 L, Hct 29.8 L, MCV 89.5, MCH 27.6, MCHC 30.9 L, RDW 20.1 H, Plt Count 323, MPV 9.6, Neut % (Auto) 44.8, Lymph % (Auto) 38.9, [place] % (Auto) 9.5 H, Eos % (Auto) 3.0, Baso % (Auto) 3.6 H, Neut # (Auto) 2.7, Lymph # (Auto) 2.3, [place] # (Auto) 0.6, Eos # (Auto) 0.2, Baso # (Auto) 0.2, PT 11.9, INR 1.08, Sodium 136, Potassium 4.0, Chloride 110 H, Carbon Dioxide 20 L, Anion Gap 10.0, BUN 9, Creatinine 1.40 H, Estimated Creat Clear 100, Estimated GFR 52 L, Est GFR ( Amer) 63, Glucose 61 L D, Calcium 7.9 L, Magnesium 2.4 H D, Triglycerides 71, Cholesterol 107 L, LDL Cholesterol Direct 40.62 L, VLDL Cholesterol 14, HDL Cholesterol 39 L, Cholesterol/HDL Ratio 2.7 08/07/24 11:12: POC Glucose 69 L I & O for Last 24 hours: Intake & Output 08/04/24 08/05/24 08/06/24 08/07/24 23:59 23:59 23:59 23:59 Intake Total 760 / 760 Output Total 900 / 900 Balance -140 / -140 Weight 113.398 kg 124.738 kg Assessment and Plan *Assessment and plan (1) Noncompliance with medication regimen: Status: Acute Category: Medical Code(s): Z91.148 - Patient's other noncompliance with medication regimen for other reason (2) Falls frequently: Status: Acute Category: Medical Code(s): R29.6 - Repeated falls (3) Acute on chronic heart failure with preserved ejection fraction (HFpEF): Status: Acute Category: Medical Code(s): I50.33 - Acute on chronic diastolic (congestive) heart failure (4) Atrial fibrillation with rapid ventricular response: Status: Acute Category: Medical Code(s): I48.91 - Unspecified atrial fibrillation (5) Alcohol abuse: Status: Acute Category: Social Hx Code(s): F10.10 - Alcohol abuse, uncomplicated (6) Tobacco use: Status: Acute Category: Social Hx Code(s): Z72.0 - Tobacco use Plan 59-year-old admitted for paroxysmal atrial fibrillation with rapid ventricular response following multiple falls while acutely intoxicated. Has a history of significant alcohol abuse with prior complicated withdrawal. Will admit for management of tachyarrhythmia in addition to his alcohol use disorder and subsequent detox Paroxysmal A-fib, RVR -Noncompliance with medical regimen - Currently rate controlled - Diltiazem 120 daily -Metoprolol succinate 100 mg - Xarelto 20 qpm -Echo ordered - Telemetry #HFpEF exacerbation ?Bumex 2 mg twice daily Acute alcohol intoxication Alcohol use disorder, severe - [facility] protocol - Rally pack Normocytic anemia -Monitor Hypokalemia -Replete
[2024-08-08] VITALS (8 sets, daily range): BP systolic 111–150; BP diastolic 44–100; PULSE 78–110; RESP 12–22; TEMP 36.6–36.9; O2SAT 89–98; BMI 35.1
[2024-08-08 02:43] LABS: POC Glucose,Bedside 91 (70-110)
[2024-08-08 05:25] LABS: POC Glucose,Bedside 80 (70-110)
[2024-08-08 05:26] LABS: POC Glucose,Bedside 86 (70-110)
--- NOTE | 2024-08-08 05:57 | PC.NURSE ---
Pt possible d/c today. D/c was in for yesterday. No acute events to report. v/s, ox4. cwall=0. pt has appt on friday with [facility]. Seizure precautions maintained. bed alarm set. Electrolyte protocol initiated. Plan of care ongoing.
[2024-08-08 08:47] LABS: Basophils # 0.2 K/mm3 (0-0.2); Basophils % 3.1 % (0.1-2.0); Eosinophils # 0.2 Kmm3 (0.0-0.4); Eosinophils % 3.1 % (0.1-12.0); Hematocrit 30.8 % (42.0-52.0); Hemoglobin 9.5 g/dL (14.1-18.0); Immature Granulocytes # 0.02 10^3uL; Immature Granulocytes % 0.3 %; Lymphocytes # 1.6 K/mm3 (0.7-4.5); Lymphocytes % 27.1 % (10-50); Mean Corpuscular HGB Conc 30.8 g/dL (31.8-35.4); Mean Corpuscular Hemoglobin 27.7 pg (27.0-31.2); Mean Corpuscular Volume 89.8 fl (80-94); Mean Platelet Volume 9.9 fl (7.4-10.4); Monocytes # 0.5 K/mm3 (0.1-1.0); Monocytes % 9.4 % (1.7-9.3); Neutrophils # 3.3 K/mm3 (1.8-7.8); Nucleated Red Blood Cells # 0.03 10^3/uL; Nucleated Red Blood Cells % 0.5 %; Platelet Count 249 K/mm3 (142-424); Red Blood Count 3.43 M/mm3 (4.60-6.20); Red Cell Distribution Width 20.3 % (11.5-17.5); Red Cell Distribution Width-SD 64.5 fL; White Blood Count 5.8 K/mm3 (4.8-10.8)
[2024-08-08] MEDS: METOPROLOL SUCCINATE XL 100MG TABLET 100 MG PO (08:55)
[2024-08-08] MEDS: SPIRONOLACTONE 25MG TABLET 25 MG PO (08:55)
[2024-08-08] MEDS: SERTRALINE 100MG TABLET 100 MG PO (08:55)
[2024-08-08] MEDS: THIAMINE 100MG TABLET 100 MG PO (08:55)
[2024-08-08] MEDS: FOLIC ACID 1MG TABLET 1 MG PO (08:55)
[2024-08-08] MEDS: LEVOTHYROXINE 125MCG (0.125MG) TAB 125 MCG PO (08:55)
[2024-08-08] MEDS: dilTIAZem ER 120MG CAPSULE 120 MG PO (08:55)
[2024-08-08] MEDS: BUMETANIDE 1MG/4ML VIAL 2 MG IV ×2 (08:56→16:49)
[2024-08-08 08:58] LABS: Alanine Aminotransferase 13 U/L (12-78); Albumin Level 2.6 g/dl (3.5-5.0); Albumin/Globulin Ratio 0.8 (1.1-1.8); Alkaline Phosphatase 272 U/L (38-126); Aspartate Amino Transferase 32 U/L (17-59); Bilirubin,Total 1.2 mg/dl (0.2-1.3); Blood Urea Nitrogen 9 mg/dl (9-20); Calcium 8.2 mg/dl (8.4-10.2); Carbon Dioxide 27 mmol/L (22.0-30.0); Chloride 103 mmol/L (98-107); Creatinine Clearance Estimated 104 mL/min (50-200); Estimated Glomerular Filt Rate 57 ml/min (>60); GFR (African American) 68 ML/MIN (>60); Globulin 3.2 g/dL (1.3-3.2); Glucose 102 mg/dl (74-100); Magnesium 1.4 mg/dl (1.6-2.3); Potassium 3.6 mmoL/L (3.5-5.1); Total Protein,Serum 5.8 g/dl (6.3-8.2)
[2024-08-08 12:07] LABS: Anion Gap 8.6 mEq/L (5-15); Sodium 135 mmol/L (136-145)
--- NOTE | 2024-08-08 13:21 | EXP.DC.SUM ---
General Admission date:: 08/06/24 Exam Data for Last 24 hours Vital signs and Labs for Last 24 Hours: Temp Pulse Resp BP Pulse Ox O2 Del Method O2 Flow Rate 97.8 F 99 H 17 145/96 H 97 Nasal Cannula 2 08/08/24 08:00 08/08/24 08:00 08/08/24 08:00 08/08/24 08:00 08/08/24 09:06 08/08/24 13:00 08/08/24 13:00 Laboratory Results - last 24 hr 08/07/24 06:15: POC Glucose 86 08/07/24 07:50: Sodium 136, Potassium 4.0, Chloride 110 H, Carbon Dioxide 20 L, Anion Gap 10.0, BUN 9, Creatinine 1.40 H, Estimated Creat Clear 100, Estimated GFR 52 L, Est GFR ( Amer) 63, Glucose 61 L D, Calcium 7.9 L 08/08/24 02:36: POC Glucose 91 08/08/24 05:18: POC Glucose 80 08/08/24 08:30: WBC 5.8, RBC 3.43 L, Hgb 9.5 L, Hct 30.8 L, MCV 89.8, MCH 27.7, MCHC 30.8 L, RDW 20.3 H, Plt Count 249, MPV 9.9, Neut % (Auto) 57.0, Lymph % (Auto) 27.1, [place] % (Auto) 9.4 H, Eos % (Auto) 3.1, Baso % (Auto) 3.1 H, Neut # (Auto) 3.3, Lymph # (Auto) 1.6, [place] # (Auto) 0.5, Eos # (Auto) 0.2, Baso # (Auto) 0.2, Sodium 135 L, Potassium 3.6, Chloride 103, Carbon Dioxide 27, Anion Gap 8.6, BUN 9, Creatinine 1.30 H, Estimated Creat Clear 104, Estimated GFR 57 L, Est GFR ( Amer) 68, Glucose 102 H, Calcium 8.2 L, Magnesium 1.4 L D, Total Bilirubin 1.2, AST 32 D, ALT 13, Alkaline Phosphatase 272 H, Total Protein 5.8 L, Albumin 2.6 L, Globulin 3.2, Albumin/Globulin Ratio 0.8 L I & O for Last 24 hours: Intake & Output 08/05/24 08/06/24 08/07/24 08/08/24 23:59 23:59 23:59 23:59 Intake Total 760 / 1000 360 / 360 Output Total 1800 / 1800 5320 / 5320 Balance -1040 / -800 -4960 / -4960 Weight 113.398 kg 124.738 kg 120.202 kg Results Data Completed and Pending Labs on day of discharge: Labs from last 24 hours 08/08/24 08/08/24 08/08/24 08:30 05:18 02:36 WBC 5.8 RBC 3.43 L Hgb 9.5 L Hct 30.8 L MCV 89.8 MCH 27.7 MCHC 30.8 L RDW 20.3 H Plt Count 249 MPV 9.9 Neut % (Auto) 57.0 Lymph % (Auto) 27.1 [place] % (Auto) 9.4 H Eos % (Auto) 3.1 Baso % (Auto) 3.1 H Neut # (Auto) 3.3 Lymph # (Auto) 1.6 [place] # (Auto) 0.5 Eos # (Auto) 0.2 Baso # (Auto) 0.2 Sodium 135 L Potassium 3.6 Chloride 103 Carbon Dioxide 27 Anion Gap 8.6 BUN 9 Creatinine 1.30 H Estimated Creat Clear 104 Estimated GFR 57 L Est GFR ( Amer) 68 Glucose 102 H POC Glucose 80 91 Calcium 8.2 L Magnesium 1.4 L D Total Bilirubin 1.2 AST 32 D ALT 13 Alkaline Phosphatase 272 H Total Protein 5.8 L Albumin 2.6 L Globulin 3.2 Albumin/Globulin Ratio 0.8 L 08/07/24 08/07/24 07:50 06:15 WBC RBC Hgb Hct MCV MCH MCHC RDW Plt Count MPV Neut % (Auto) Lymph % (Auto) [place] % (Auto) Eos % (Auto) Baso % (Auto) Neut # (Auto) Lymph # (Auto) [place] # (Auto) Eos # (Auto) Baso # (Auto) Sodium 136 Potassium 4.0 Chloride 110 H Carbon Dioxide 20 L Anion Gap 10.0 BUN 9 Creatinine 1.40 H Estimated Creat Clear 100 Estimated GFR 52 L Est GFR ( Amer) 63 Glucose 61 L D POC Glucose 86 Calcium 7.9 L Magnesium Total Bilirubin AST ALT Alkaline Phosphatase Total Protein Albumin Globulin Albumin/Globulin Ratio DS: Diagnosis Discharge Diagnosis (1) Noncompliance with medication regimen: Status: Acute Code(s): Z91.148 - Patient's other noncompliance with medication regimen for other reason (2) Falls frequently: Status: Acute Code(s): R29.6 - Repeated falls (3) Acute on chronic heart failure with preserved ejection fraction (HFpEF): Status: Acute Code(s): I50.33 - Acute on chronic diastolic (congestive) heart failure (4) Atrial fibrillation with rapid ventricular response: Status: Acute Code(s): I48.91 - Unspecified atrial fibrillation (5) Alcohol abuse: Status: Acute Code(s): F10.10 - Alcohol abuse, uncomplicated (6) Tobacco use: Status: Acute Code(s): Z72.0 - Tobacco use Meds Home Medications and Allergies Home Medications ?Medication ?Instructions ?Recorded ?Confirmed ?Type apixaban 5 mg tablet (Eliquis) 5 mg PO BID #180 tabs 06/15/24 08/06/24 Rx ferrous sulfate 324 mg (65 mg 324 mg PO DAILY #90 tabs 06/15/24 08/06/24 Rx iron) tablet,delayed release metoprolol succinate 100 mg 100 mg PO DAILY #30 tabs 06/15/24 08/06/24 Rx tablet,extended release 24 hr levothyroxine 125 mcg tablet 125 mcg PO DAILYDM 07/16/24 08/06/24 History sertraline 100 mg tablet 100 mg PO DAILY 07/16/24 08/06/24 History thiamine HCl (vitamin B1) 100 mg 100 mg PO DAILY 07/16/24 08/06/24 History tablet trazodone 100 mg tablet 100 mg PO HS 07/17/24 08/06/24 History bumetanide 2 mg tablet 2 mg PO DAILY #30 tabs 07/20/24 08/06/24 Rx spironolactone 25 mg tablet 25 mg PO DAILY 30 days #30 tabs 07/20/24 08/06/24 Rx diltiazem HCl 120 mg 120 mg PO DAILY 30 days #30 caps 08/07/24 Rx capsule,extended release 24 hr gabapentin 300 mg capsule 300 mg PO HS 30 days #30 caps 08/07/24 Rx naltrexone 50 mg tablet 50 mg PO DAILY 30 days #30 tabs 08/07/24 Rx New Prescriptions to Start Prescriptions: diltiazem HCl Jorje Anderson gabapentin Jorje Anderson naltrexone Jorje Anderson Allergies Allergy/AdvReac Type Severity Reaction Status Date / Time hydrochlorothiazide AdvReac Unknown Other Verified 06/15/24 10:14 Discharge Plan Disposition Patient Disposition: Home, Self-Care Condition: Fair Follow up Plan Follow up with: Eduardo Mas PA [Physician Crew Director, Cardiology] - 1 week Prescriptions/Medication Reconciliation: New diltiazem HCl 120 mg Capsule,Extended Release 24hr 120 mg PO DAILY 30 Days Qty: 30 0RF naltrexone 50 mg tablet 50 mg PO DAILY 30 Days Qty: 30 0RF gabapentin 300 mg capsule 300 mg PO HS 30 Days Qty: 30 0RF Continued ferrous sulfate 324 mg (65 mg iron) tablet,delayed release (DR/EC) 324 mg PO DAILY Qty: 90 0RF Eliquis 5 mg tablet 5 mg PO BID Qty: 180 0RF metoprolol succinate 100 mg tablet extended release 24 hr 100 mg PO DAILY Qty: 30 2RF sertraline 100 mg tablet 100 mg PO DAILY thiamine HCl (vitamin B1) 100 mg tablet 100 mg PO DAILY levothyroxine 125 mcg tablet 125 mcg PO DAILYDM trazodone 100 mg Tablet 100 mg PO HS spironolactone 25 mg Tablet 25 mg PO DAILY 30 Days Qty: 30 0RF bumetanide 2 mg tablet 2 mg PO DAILY Qty: 30 0RF Discontinued digoxin 125 mcg (0.125 mg) tablet 125 mcg PO DAILY amiodarone 200 mg tablet 200 mg PO DAILY Problem Reconciliation Problems Reviewed?: Yes Patient Discharge Instructions Patient Instructions: DI for Atrial Fibrillation, How to Prevent Falls Print Language: Ivorian Providers Primary Care Provider: Provider,Referral Admit Provider: Jorje Anderson Attending Provider: Jorje Anderson
[2024-08-08] MEDS: RIVAROXABAN 10MG TABLET 20 MG PO (16:49)
[2024-08-08 16:50] LABS: POC Glucose,Bedside 90 (70-110)
--- NOTE | 2024-08-08 17:07 | PC.NURSE ---
Pt is A&Ox4. Vital signs stable tolerating 2L NC at this time. +2 edema noted on bilateral legs. IV bumex given per MAY. Pt with adequate urinary output. No withdraw symptoms noted this shift. Pt continues to complain of feeling weak. Walk test was done. Pt was able to stand up with x2 assistance and a walker and walk 3 steps when he stated he could not go any farther and needed to sit back down. Pt sat back down on bed and was asked if he wanted to try again. Pt stated he did not feel like he could. notified. Bed alarm in place for safety. Pt resting comfortably with no further needs voiced at this time. Call light within reach.
--- NOTE | 2024-08-08 18:26 | EXP.PN ---
Subjective *Date: 08/08/24 *Time: 18:26 Interval history: Diuresing well, states he will consider SNF placement due to significant deconditioning. Exam Data for Last 24 hours Vital signs and Labs for Last 24 Hours: Temp Pulse Resp BP Pulse Ox O2 Del Method O2 Flow Rate 98.5 F 78 18 126/90 94 L Nasal Cannula 2 08/08/24 16:00 08/08/24 16:00 08/08/24 16:00 08/08/24 16:00 08/08/24 16:00 08/08/24 17:00 08/08/24 17:00 Laboratory Results - last 24 hr 08/07/24 06:15: POC Glucose 86 08/07/24 07:50: Sodium 136, Potassium 4.0, Chloride 110 H, Carbon Dioxide 20 L, Anion Gap 10.0, BUN 9, Creatinine 1.40 H, Estimated Creat Clear 100, Estimated GFR 52 L, Est GFR ( Amer) 63, Glucose 61 L D, Calcium 7.9 L 08/08/24 02:36: POC Glucose 91 08/08/24 05:18: POC Glucose 80 08/08/24 08:30: WBC 5.8, RBC 3.43 L, Hgb 9.5 L, Hct 30.8 L, MCV 89.8, MCH 27.7, MCHC 30.8 L, RDW 20.3 H, Plt Count 249, MPV 9.9, Neut % (Auto) 57.0, Lymph % (Auto) 27.1, [place] % (Auto) 9.4 H, Eos % (Auto) 3.1, Baso % (Auto) 3.1 H, Neut # (Auto) 3.3, Lymph # (Auto) 1.6, [place] # (Auto) 0.5, Eos # (Auto) 0.2, Baso # (Auto) 0.2, Sodium 135 L, Potassium 3.6, Chloride 103, Carbon Dioxide 27, Anion Gap 8.6, BUN 9, Creatinine 1.30 H, Estimated Creat Clear 104, Estimated GFR 57 L, Est GFR ( Amer) 68, Glucose 102 H, Calcium 8.2 L, Magnesium 1.4 L D, Total Bilirubin 1.2, AST 32 D, ALT 13, Alkaline Phosphatase 272 H, Total Protein 5.8 L, Albumin 2.6 L, Globulin 3.2, Albumin/Globulin Ratio 0.8 L 08/08/24 16:43: POC Glucose 90 I & O for Last 24 hours: Intake & Output 08/05/24 08/06/24 08/07/24 08/08/24 23:59 23:59 23:59 23:59 Intake Total 760 / 1000 760 / 760 Output Total 1800 / 1800 5320 / 5320 Balance -1040 / -800 -4560 / -4560 Weight 113.398 kg 124.738 kg 120.202 kg Constitutional Constitutional: no acute distress *Routine HEENT Exam Head: Present normocephalic Eye: Present EOMI and PERRL ENT: Present mucous membranes moist *Routine Neck Exam Neck: Present supple; Absent lymphadenopathy *Routine Respiratory Exam Respiratory: Present CTA bilaterally *Routine Cardiovascular Exam Cardiovascular: Present RRR *Routine Abdominal Exam Abdominal: Present soft and normoactive bowel sounds; Absent tenderness *Routine Extremities Exam Extremities: Present edema; Absent cyanosis or clubbing *Routine Skin Exam Skin: Present warm; Absent rash *Routine Neurological Exam Neurological: Present alert and oriented X3 Assessment and Plan *Assessment and plan (1) Noncompliance with medication regimen: Status: Acute Category: Medical Code(s): Z91.148 - Patient's other noncompliance with medication regimen for other reason (2) Falls frequently: Status: Acute Category: Medical Code(s): R29.6 - Repeated falls (3) Acute on chronic heart failure with preserved ejection fraction (HFpEF): Status: Acute Category: Medical Code(s): I50.33 - Acute on chronic diastolic (congestive) heart failure (4) Atrial fibrillation with rapid ventricular response: Status: Acute Category: Medical Code(s): I48.91 - Unspecified atrial fibrillation (5) Alcohol abuse: Status: Acute Category: Social Hx Code(s): F10.10 - Alcohol abuse, uncomplicated (6) Tobacco use: Status: Acute Category: Social Hx Code(s): Z72.0 - Tobacco use Plan 59-year-old admitted for paroxysmal atrial fibrillation with rapid ventricular response following multiple falls while acutely intoxicated. Has a history of significant alcohol abuse with prior complicated withdrawal. Will admit for management of tachyarrhythmia in addition to his alcohol use disorder and subsequent detox Paroxysmal A-fib, RVR - Noncompliance with medical regimen - Currently rate controlled after metoprolol, diltiazem. ? Continue diltiazem 120 mg daily, metoprolol succinate 100 mg daily, Xarelto 20 mg. - Follow-up ECHO. #Physical deconditioning #HFpEF exacerbation ? Has had about a 40 pound weight gain since last admission. In the setting of medication nonadherence, alcohol use disorder. ? Patient is significantly deconditioned, unable to walk two-person assistance. After extensive conversation today, patient states he would consider SNF placement. ? Continue Bumex 2 mg twice daily, spironolactone 25 mg. Diuresing well, -5600 med so far. Acute alcohol intoxication Alcohol use disorder, severe - CIWA protocol. No significant withdrawal symptoms. Normocytic anemia -Monitor Hypokalemia -Replete
[2024-08-08] MEDS: TRAZODONE 50MG TABLET 100 MG PO (20:07)
[2024-08-08] MEDS: PANTOPRAZOLE 40MG TABLET 40 MG PO (20:07)
[2024-08-08] MEDS: dilTIAZem 25MG/5ML VIAL 10 MG IV (21:29)
[2024-08-09] VITALS: BP 112/76; PULSE 95; PULSE 98; RESP 18; TEMP 36.8; O2SAT 94
[2024-08-09 04:00] VITALS: BP 124/85; PULSE 100; PULSE 110; RESP 18; TEMP 36.8; O2SAT 99; BMI 34.1
[2024-08-09] MEDS: METOPROLOL TARTRATE 50MG TABLET 25 MG PO (04:03)
[2024-08-09] MEDS: LORazepam 1MG TABLET 1 MG PO ×4 (04:16→23:57)
--- NOTE | 2024-08-09 04:25 | PC.NURSE ---
Pt is A&O x 4 with intermittent confusion. Pt is mostly on RA, but occasionally on 2L NC. Pt has been A-fib RVR on telemetry w/ a BBB. Provider was notified of elevated HR and ordered 10 mg Diltiazem IV Push once and a PRN metoprolol, which both were administered. Around 0400, pt was increasingly confused, he reported seeing dogs and unknown people. Pt was then assessed using the CIWA scale, and scored a 10. Pt was given 1 mg of Ativan. Pt now resting in bed with call light in reach. Plan of care ongoing.
--- NOTE | 2024-08-09 05:40 | PC.WOUNDNOTE ---
Pt's CIWA reassessed, and CIWA score is a 9. Pt received another dose of 1mg Ativan PO.
[2024-08-09 06:10] LABS: Basophils # 0.1 K/mm3 (0-0.2); Eosinophils # 0.2 Kmm3 (0.0-0.4); Eosinophils % 3.4 % (0.1-12.0); Hematocrit 30.5 % (42.0-52.0); Hemoglobin 9.7 g/dL (14.1-18.0); Immature Granulocytes # 0.02 10^3uL; Immature Granulocytes % 0.3 %; Lymphocytes # 1.5 K/mm3 (0.7-4.5); Lymphocytes % 22.6 % (10-50); Mean Corpuscular HGB Conc 31.8 g/dL (31.8-35.4); Mean Corpuscular Hemoglobin 28.2 pg (27.0-31.2); Mean Corpuscular Volume 88.7 fl (80-94); Mean Platelet Volume 9.9 fl (7.4-10.4); Monocytes # 0.6 K/mm3 (0.1-1.0); Monocytes % 8.8 % (1.7-9.3); Neutrophils # 4.1 K/mm3 (1.8-7.8); Neutrophils % 62.9 % (37.0-80.0); Nucleated Red Blood Cells # 0 10^3/uL; Nucleated Red Blood Cells % 0 %; Platelet Count 241 K/mm3 (142-424); Red Blood Count 3.44 M/mm3 (4.60-6.20); Red Cell Distribution Width 20.4 % (11.5-17.5); Red Cell Distribution Width-SD 62.9 fL; White Blood Count 6.5 K/mm3 (4.8-10.8)
[2024-08-09 06:25] LABS: Albumin Level 2.7 g/dl (3.5-5.0); Chloride 97 mmol/L (98-107); Potassium 3.5 mmoL/L (3.5-5.1); Sodium 133 mmol/L (136-145)
[2024-08-09 06:27] LABS: Alanine Aminotransferase 13 U/L (12-78); Aspartate Amino Transferase 29 U/L (17-59); Blood Urea Nitrogen 8 mg/dl (9-20); Creatinine Clearance Estimated 119 mL/min (50-200); Estimated Glomerular Filt Rate 69 ml/min (>60); GFR (African American) 83 ML/MIN (>60)
[2024-08-09 06:28] LABS: Albumin/Globulin Ratio 0.9 (1.1-1.8); Alkaline Phosphatase 262 U/L (38-126); Anion Gap 4.5 mEq/L (5-15); Calcium 8.2 mg/dl (8.4-10.2); Carbon Dioxide 35 mmol/L (22.0-30.0); Glucose 92 mg/dl (74-100); Total Protein,Serum 5.7 g/dl (6.3-8.2)
--- NOTE | 2024-08-09 06:32 | PC.NURSE ---
Pt has a critical lab result of a Magnesium level of 1.0. MD notified.
[2024-08-09] MEDS: POTASSIUM CHLORIDE 20MEQ TAB 40 MEQ PO ×2 (06:43→10:18)
[2024-08-09] MEDS: MAGNESIUM SULFATE IN WATER 2 GM/50 ML PIGGYBACK IV ×3 (06:44→10:17)
[2024-08-09 08:00] VITALS: BP 101/65; PULSE 100; PULSE 98; RESP 22; TEMP 36.7; O2SAT 94
[2024-08-09] MEDS: dilTIAZem HCL 180MG CAP.ER.24H 180 MG PO (09:10)
[2024-08-09] MEDS: LEVOTHYROXINE 125MCG (0.125MG) TAB 125 MCG PO (09:10)
[2024-08-09] MEDS: BUMETANIDE 1MG/4ML VIAL 2 MG IV ×2 (09:10→16:31)
[2024-08-09] MEDS: SPIRONOLACTONE 25MG TABLET 25 MG PO (09:10)
[2024-08-09] MEDS: SERTRALINE 100MG TABLET 100 MG PO (09:10)
[2024-08-09] MEDS: METOPROLOL SUCCINATE XL 100MG TABLET 100 MG PO (09:10)
[2024-08-09] MEDS: FOLIC ACID 1MG TABLET 1 MG PO (09:10)
--- NOTE | 2024-08-09 11:28 | HMH.OTEV ---
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 Per history & physical note, he is acutely intoxicated and reportedly fell 3 because he kept calling EMS. After the third fall they said he needed to be evaluated in the emergency department. In the emergency department he is in atrial fibrillation RVR. He is noncompliant with medications. He is frequently evaluated in the ER due to similar complaints and leaves AMA.Currently he is wanting to be admitted and is agreeable. He does have a history of complicated alcohol detox with withdrawal. Other than his falls he is largely asymptomatic, however he is acutely intoxicated and unable to provide further history. Emergency department ultrasound of abdomen demonstrated no ascites. Bedside echo performed by myself demonstrated normal LV function. Subjective I live with my puppy. Pt was supine in bed when therapy entered. pt agreed to complete initial OT eval. Pt orient x3. pt reported he lives alone in an apartment without MALLORY. Pt reports he uses a computer rolling chair for all functional mobility. Pt states he was given a rollator walker and wheelchair but states he slides and feels unsafe when using them. Pt states he is independent with dressing and bathing, and needs IADLs. Pt states he fell 3x in 1 day and has had some intermittent L hip pain since rated 0/10 at rest and 8/10 with movement. Pt denies having family members close by but states he has 3 supportive neighbors. Pt denies wearing oxygen at home, currently on 2LNC. Pt reports they have a shower chair and grab bars. pt agreed to sit in chair. Pt went from supine to EOB with Min A. Pt then completed a sit to stand transfer, with walker with Mod A. Pt then able to complete functional mobility task with walker and Min A of approx 2 feet to chair. Pt sat in chair and needed cues and prompts to turn fully into chair and use body mechanics to sit. Pt left with call light and all other needs within reach. Objective Patient Orientation Person,Place,Birthday Right Upper WFL Extremity Gross ROM Left Upper Extremity WFL Gross ROM Bed Mobility bed mobility-scooting,bed mobility - supine/sit Assist Level Minimal x 1 (25% assist) Transfer Training Sit/Stand Transfer Assist Level Moderate x 1 (50% assist) Chair Transfer Minimal x 1 (25% assist) Ability Chair Transfer Stand Step Pivot Technique Chair Transfer Standard Walker Assistive Devices Decrease in Yes Endurance Rehab OT IP prob,goals,plan Problems Date of Evaluation: 08/09/24 OT IP Problems Bed Mobility,Transfers,Balance,Self care,Safety Rehab Potential Rehab Potential Good Equipment Needs Assistive Devices Standard Walker Plan OT intervention Plan Bed Mobility,Transfers,Balance,Self care,Safety, Therapeutic Exercise OT Plan Frequency Daily Duration LOS Discharge Goals Bed Mobility Ability Standby Assistance Sit to Stand Chair Minimal x 1 (25% assist) Transfer Ability Chair Transfer Minimal x 1 (25% assist) Ability Chair Transfer Stand Step Pivot Technique Feeding Ability Assist with Tray Set Up Commode/Toilet Toilet Rails,Grab Bars Transfer Assistive Devices Decrease in No Endurance Discharge Plan OT Discharge Plan At this time, pt would benefit from skilled acute OT while admitted here at [facility] to address functional limitations in occupational performance. Pt would benefit from rehab placement once DC from [facility] to address functional limitations in occupational performance and safety and endurance. Eval Complexity Eval Charge Codes 75710 - Moderate Complexity PHYSICIAN CERTIFICATION: I certify the specified therapy services for Alonso Richardson are required, authorized, and reviewed every 30 days.
[2024-08-09 12:00] VITALS: BP 92/64; PULSE 100; PULSE 90; RESP 20; TEMP 36.6; O2SAT 94
[2024-08-09 12:29] VITALS: BMI 34.1
--- NOTE | 2024-08-09 12:40 | SW/DCPLANNER ---
Addendum entered by Haritha Hayden 08/12/24 10:12: Patient is continues to voice that he is not interested in placement. Patient is only interested in outpatient reahb at [facility]. Patient is also interested in [facility] at time of discharge. I did offer to set up an appointment w/ [facility] once discharge date is known. Patient stated he would like to schedule his appointment once he returns home. Addendum entered by Haritha Hayden 08/11/24 12:00: Patient is alert and oriented at this time. I discussed PT evaluation w/ patient and SNF level of care recommended. I explained [facility] placement (including 30 days + monthly income except $40) vs outpatient PT ( home health is not an option due to insurance). Patient has requested to see how he does w/ afternoon therapy session due to wanting to return home. Patient does lives at home alone and I did explain how unsafe he would be at this time. I will continue to follow up w/ PT services and patient. Discharge date is unknown at this time. Addendum entered by Sandie Jackson RN 08/10/24 16:07: Attempted to speak with patient his morning and patient was deep asleep and very difficult arouse. This afternoon he was only alert to place and person. Will attempt again tomorrow. Original Note: I attempted to speak w/ patient regarding plans once medically stable for discharge. PT evaluated patient and recommended SNF level of care. When speaking w/ patient today he was only alert to self. Patient could not answer correctly where he was or current year. I did attempted to contact patient's daughter regarding discharge planning. Daughter stated that placement has been recommended several times for patient but he continues to refuse. Daughter also stated that she has little involvement w/ patient but neighbor checks on him often. I will continue to follow up w/ patient regarding discharge planning once he becomes more alert.
--- NOTE | 2024-08-09 13:01 | EXP.CARD.CON ---
History of Present Illness History of Present Illness Consult date: 08/09/24 Chief complaint: Weakness and falls History of present illness: 59-year-old white male we have seen here before with history of severe Bi-V HF, COPD, rate controlled atrial fibrillation, EtOH dependence. He has historically never come to the office for routine follow-up and has been noncompliant with his medications and reportedly presented this to ER this admission via EMS for recurrent falls with acute intoxication and 40 pound weight gain. Workup revealed ProBNP 5k, CT chest shows pulm blake and pleural effusions as well as right upper lobar peribronchial infiltration, peripancreatic duodenal inflammation, small pancreatitis, fatty liver infiltration. He was admitted over the weekend and has been diuresing, down 8.7 L. . Today he voices that he would like to resume meds and will avoid alcohol going forward. [facility] Disclaimer: The information contained in this section may have been updated after the patient was seen, as this information can be updated by other users. 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 Testicular swelling, right Hypertension Tobacco abuse Alcohol abuse Tobacco use Paroxysmal atrial fibrillation Alcoholism Anxiety GERD (gastroesophageal reflux disease) Laceration of finger, left, complicated COPD (chronic obstructive pulmonary disease) Pulmonary hypertension Cirrhosis, alcoholic CHF (congestive heart failure) Hypertension Atrial fibrillation with rapid ventricular response Exposure to COVID-19 virus Surgical History History of discectomy History of cardiac radiofrequency ablation Family History Other Cancer Hypertension Stroke Substance abuse Social History Smoking Status: Current every day smoker tobacco type: cigarettes packs per day: 2 alcohol intake: current alcohol intake frequency: 3 or more drinks per day substance use type: denies use current occupational status: unemployed Travel in the last 8 weeks?: None household members: significant other housing: house 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 current occupational exposures/hazards: No caffeine: Yes Review of Systems Constitutional Constitutional: Reports fatigue and Reports weakness Eyes Eyes: Denies loss of vision ENT Ears, Nose, Mouth, and Throat: Denies hearing loss and Denies vertigo *Cardiovascular Cardiovascular: Denies chest pain, Denies dyspnea and Denies syncope *Respiratory Respiratory: Denies cough and Denies dyspnea *Gastrointestinal Gastrointestinal: Denies change in stool character, Denies nausea and Denies vomiting *Genitourinary Genitourinary: Denies difficulty urinating *Musculoskeletal Musculoskeletal: Denies muscle weakness Integumentary/Breasts Skin/Breast: Denies changing lesions *Neurologic Neurologic: Denies loss of vision, Denies syncope, Denies vertigo and Reports weakness Endocrine Endocrine: Reports fatigue Exam Data for Last 24 hours Vital signs and Labs for Last 24 Hours: Temp Pulse Resp BP Pulse Ox O2 Del Method O2 Flow Rate 98.0 F 98 H 22 101/65 L 94 L Room Air 2 08/09/24 08:00 08/09/24 08:00 08/09/24 08:00 08/09/24 08:00 08/09/24 08:00 08/09/24 12:52 08/09/24 11:07 Laboratory Results - last 24 hr 08/08/24 16:43: POC Glucose 90 08/09/24 05:56: WBC 6.5, RBC 3.44 L, Hgb 9.7 L, Hct 30.5 L, MCV 88.7, MCH 28.2, MCHC 31.8, RDW 20.4 H, Plt Count 241, MPV 9.9, Neut % (Auto) 62.9, Lymph % (Auto) 22.6, Boundary % (Auto) 8.8, Eos % (Auto) 3.4, Baso % (Auto) 2.0, Neut # (Auto) 4.1, Lymph # (Auto) 1.5, Boundary # (Auto) 0.6, Eos # (Auto) 0.2, Baso # (Auto) 0.1, Sodium 133 L, Potassium 3.5, Chloride 97 L, Carbon Dioxide 35 H, Anion Gap 4.5 L, BUN 8 L, Creatinine 1.10, Estimated Creat Clear 119, Estimated GFR 69, Est GFR ( Amer) 83 D, Glucose 92, Calcium 8.2 L, Magnesium 1.0 L D, Total Bilirubin 1.0, AST 29, ALT 13, Alkaline Phosphatase 262 H, Total Protein 5.7 L, Albumin 2.7 L, Globulin 3.0, Albumin/Globulin Ratio 0.9 L I & O for Last 24 hours: Intake & Output 08/06/24 08/07/24 08/08/24 08/09/24 23:59 23:59 23:59 23:59 Intake Total 760 / 1000 1000 / 1360 870 / 870 Output Total 1800 / 1800 7520 / 8420 2400 / 2400 Balance -1040 / -800 -6520 / -7060 -1530 / -1530 Weight 250 lb 275 lb 265 lb 257 lb 4.471 oz Meds Home Medications and Allergies Home Medications ?Medication ?Instructions ?Recorded ?Confirmed ?Type apixaban 5 mg tablet (Eliquis) 5 mg PO BID #180 tabs 06/15/24 08/06/24 Rx ferrous sulfate 324 mg (65 mg 324 mg PO DAILY #90 tabs 06/15/24 08/06/24 Rx iron) tablet,delayed release metoprolol succinate 100 mg 100 mg PO DAILY #30 tabs 06/15/24 08/06/24 Rx tablet,extended release 24 hr levothyroxine 125 mcg tablet 125 mcg PO DAILYDM 07/16/24 08/06/24 History sertraline 100 mg tablet 100 mg PO DAILY 07/16/24 08/06/24 History thiamine HCl (vitamin B1) 100 mg 100 mg PO DAILY 07/16/24 08/06/24 History tablet trazodone 100 mg tablet 100 mg PO HS 07/17/24 08/06/24 History bumetanide 2 mg tablet 2 mg PO DAILY #30 tabs 07/20/24 08/06/24 Rx spironolactone 25 mg tablet 25 mg PO DAILY 30 days #30 tabs 07/20/24 08/06/24 Rx diltiazem HCl 120 mg 120 mg PO DAILY 30 days #30 caps 08/07/24 Rx capsule,extended release 24 hr gabapentin 300 mg capsule 300 mg PO HS 30 days #30 caps 08/07/24 Rx naltrexone 50 mg tablet 50 mg PO DAILY 30 days #30 tabs 08/07/24 Rx New Prescriptions to Start Prescriptions: diltiazem HCl [place],Jorje gabapentin [place],Jorje naltrexone [place],Jorje Allergies Allergy/AdvReac Type Severity Reaction Status Date / Time hydrochlorothiazide AdvReac Unknown Other Verified 06/15/24 10:14 Assessment and Plan *Assessment and plan (1) Acute on chronic left systolic heart failure: Status: Acute Category: Medical Code(s): I50.23 - Acute on chronic systolic (congestive) heart failure (2) Atrial fibrillation with rapid ventricular response: Status: Acute Category: Medical Code(s): I48.91 - Unspecified atrial fibrillation (3) Alcohol abuse: Status: Acute Category: Social Hx Code(s): F10.10 - Alcohol abuse, uncomplicated (4) Pancreatic abnormality: Status: Acute Category: Medical Code(s): 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 (5) Falls frequently: Status: Acute Category: Medical Code(s): R29.6 - Repeated falls Plan Acute on chronic Left Systolic Heart Failure - known severely reduced EF 30% and severe RV failure on ECHO 2023 - presented here with ProBNP 5k, pulm edema, and 40lb weight gain - med noncompliance, no f/u outpatient, never completed ischemic workup, ongoing ETOH abuse - diuresed 8.7L here - repeat ECHO here - consider DC of Diltiazem if LVEF remains low - consider LifeVest and LHC but compliance, ETOH abuse, recurrent falls have all been significant issue Peristant A-fib - rate controlled here - cont metoprolol, Cardizem, OAC for now Ongoing alcohol abuse with pancreatic issues - Advised complete cessation, patient voices desire to quit but not interested in going to rehab Hypertension - Well-controlled here COPD - Plans per hospitalist Medical noncompliance - Frequent nonadherence to treatment plan, no follow-up, ongoing alcohol - This significantly increases morbidity and mortality, this was discussed with patient in detail Further plans pending echo result
--- NOTE | 2024-08-09 13:34 | CA_ITS ---
APPROVED REPORT EXAM: Comprehensive 2D, Doppler, and color-flow Echocardiogram Grades 1 Through 6 Teacher: Jasmin Rondon RT(R) Ht: 6 ft 1 in Wt: 257lbs BSA: 2.39 BP: 146/82 mmHg Indications: AFIB with RVR. Patient was noncompliant with scan, would not hold stll and kept pulling EKG leads off throughout exam. ETOH abuse. 2D Dimensions Left Atrium 3.77 cm LVOT 2.00 cm (M/F) 1.5-2.5 M-Mode Dimensions RVDd 5.36 cm (0.9-2.6) LVDd 4.20 cm (3.5-5.7) Ao Diam 3.00 cm (2.0-3.7) LVDs 3.26 cm (3.5-5.7) IVSd 1.07 cm (0.6-1.1) PWd 0.76 cm (0.6-1.1) EF (Teich) 45.50% FS 22.40% EDV (Teich) 78.60 mL ESV (Teich) 42.80 mL Tricuspid Valve TR P. Velocity 291.00 cm/s Left Ventricle The left ventricle is normal size. Left ventricular systolic function is mildly to moderately decreased. There is increased LV wall thickness. There is mild to moderate global hypokinesis present. Septal flattening is present, suggestive of right-sided pressure/volume overload. Diastolic function is indeterminate. LVEF is 40%. Right Ventricle Right ventricle is severely dilated. Right ventricle is severely hypokinetic. Atria The left atrium size is normal. Right atrium is moderately dilated. There is no Doppler evidence of interatrial shunt. Aortic Valve The aortic valve is mildly thickened. Mild aortic regurgitation. There is no aortic valvular stenosis. Mitral Valve The mitral valve is normal in structure. No evidence of mitral valve stenosis. Trace mitral regurgitation. Tricuspid Valve Tricuspid valve is grossly normal in structure and function. Severe tricuspid regurgitation. RVSP is 45-50 mmHg. There is hepatic flow reversal present, suggestive of significant TR. Pulmonic Valve The pulmonary valve is normal in structure. Trace pulmonic regurgitation. Great Vessels The aortic root is normal in size. The IVC is dilated. Pericardium There is no pericardial effusion. Other Information Study Quality: Fair Conclusion Mild to moderate reduction in LV systolic function (LVEF 40%). Septal flattening is present, suggestive of right-sided pressure/volume overload. Severe RV dilation with severe reduction in RV function. Moderate RA dilation. Mild AI. Severe TR. Elevated RVSP 45-50 mmHg. Electronically signed by : Adenike Garcia MD 08/10/2024 12:11:07
--- OUTSIDE RECORDS SUMMARY | 2024-08-09 14:50 | XMS_ITS | Clinical Summary ---
Author Organization Healthcare Address [address] [place] [address] Care Team Providers Care Edge Cutting Machine Operator Name Role Phone Casey Felix MD Primary Care Provider [phone] Dotty Askew MD Unavailable [phone] Allergies Active Allergy Reactions Criticality Noted Date [...] by mouth every 6 (six) hours. 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 SVT (supraventricular tachycardia) 12/21/2013 Overview [...] Type Department Care Team Description 07/14/2024 Telephone Site [facility] [address], [address] [place] [address] Isabella Jordan RN 06/01/2024 Travel 05/17/2024 Travel 05/14/2024 7:32 AM EDT Anesthesia Event [facility] [address] [place] [address] Nathanael Salas MD Benson, Cathryn M, DRIER AND EVAPORATOR OPERATOR 05/14/2024 7:30 AM EDT - 05/14/2024 10:55 AM EDT Surgery [facility] [address] [place] [address] Jai Joyce MD INSERTION, INTRAMEDULLARY NAIL, LEFT INTERTROCHANTERIC FEMUR FRACTURE 05/14/2024 Orders Only External Location [address] [place] [address] Provider, External 05/14/2024 Travel 05/13/2024 12:18 AM EDT - 06/01/2024 4:21 PM EDT Hospital Encounter [facility] 9 T2 UNI [address] [place] [address] Matty, Ha B, MD Fourie, Meghana, DO Ralf, Gosia, DO Adams, Romil, MD Adams, Jagriti, MD Age-related osteoporosis with current pathological fracture, initial encounter (Primary Dx); Other closed fracture of left femur, unspecified portion of femur, initial encounter ([facility]); ETOH abuse; Atrial fibrillation, unspecified type ([facility]); Gastroesophageal reflux disease, unspecified whether esophagitis present; Alcohol use disorder, severe, dependence ([facility]); Tobacco use disorder, severe, dependence; Hypomagnesemia; Chronic HFrEF (heart failure with reduced ejection fraction) ([facility]); Chronic bronchitis, unspecified chronic bronchitis type ([facility]); Secondary hyperparathyroidism ([facility]); Vitamin D deficiency; Heart failure with reduced ejection fraction ([facility]); Paroxysmal A-fib ([facility]) Discharge Disposition: Longterm Facility 05/13/2024 Travel 05/12/2024 Orders Only External Location [address] [place] [address] Rip Pichardo PA 05/12/2024 Orders Only External Location [address] [place] [address] Rip Pichardo PA 05/12/2024 Orders Only External Location [address] [place] [address] Rip Pichardo PA 05/12/2024 Orders Only External Location [address] [place] [address] Rip Pichardo PA 05/12/2024 Orders Only External Location [address] [place] [address] Rip Pichardo PA 05/12/2024 Orders Only External Location [address] [place] [address] Lashell Rosenberg DO 05/12/2024 Orders Only External Location [address] [place] [address] Rip Pichardo PA 05/12/2024 Orders Only External Location [address] [place] [address] Gigi Phillips 05/12/2024 Orders Only External Location [address] [place] [address] Rip Pichardo PA 05/12/2024 Orders Only External Location [address] [place] [address] Rip Pichardo PA 05/12/2024 Orders Only External Location [address] [place] [address] Rip Pichardo PA 05/12/2024 Orders Only External Location [address] [place] [address] Lashell Rosenberg, DO 05/12/2024 Orders Only External Location [address] [place] [address] Rip Pichardo PA 05/12/2024 Orders Only External Location [address] [place] [address] Rip Pichardo PA 05/12/2024 Orders Only External Location [address] [place] [address] Rip Pichardo PA from Last 3 Months [...] Never 05/13/2024 How often do you attend christian or nondenominational serv ices? Never 05/13/2024 Do you belong to any clubs o r organizations such as christian groups, unions, fraternal or athletic groups, or [...] and heating? Patient unable to answer 05/13/2024 [facility] - Occup[facility] [...] place to sleep or slept in a assisted (including now)? No 12/09/2023 Housing Stability Vital Sign Answer Myron e Recorded In the last 12 months, was t here a time when you were not able to pay the mortgage or rent on time? No 05/13/2024 Number of Times Moved in the Last Year Not on fi le 05/13/2024 At any time in the past 12 m [facility], were you homeless or living in a assisted (including now)? No 05/13/2024 CAGE ASSESSMENT Answer [...] drink first t olivia in the morning (EYE-PILOT PLANT SUPERVISOR) to steady your nerves or to get [...] Description 09/02/2024 10:40 AM EDT Office Visit [facility] [address] [facility] [place] [address] Jakub Malave MD [address] [place] [address] Health Maintenance Due Date Last [...] 2010 [facility]-Zoster Vaccines (1 of 2) 2015 [id number] Vaccine (2 - season) 2023 07/22/2020 [facility]-Influenza [...] this topic Medical Devices Implanted Type Area Medical Doctor Device Identifier Shelf Expiration Date Model / Serial / Lot Nail 1.5 Intertan 11.5mm X 44cm 130d Left - S. - [id number] Implanted:Qty: 1 on 05/14/2024 by Jai Joyce MD at [facility] Left: Femur [id number] 08/06/2032 [id number] / . / [id number] Lag/Comp Screw Kit 100/95 - S. - [id number] Implanted:Qty: 1 on 05/14/2024 by Jai Joyce MD at [facility] Left: Femur [id number] 07/29/2033 [id number] / . / [id number] Screw Trigen 5.0mm For Metanail 52.5mm - S. - [id number] Implanted:Qty: 1 on 05/14/2024 by Jai Joyce MD at [facility] Left: Femur [id number] 09/20/2033 [id number] / . / [id number] Screw Trigen 5.0mm Internal Capture 75mm - S. - [id number] Implanted:Qty: 1 on 05/14/2024 by Jai Joyce MD at [facility] Left: Femur [employer]-[id number] 08/09/2033 [id number] / [id number] Procedures Procedure Name Priority Date/Time Associated Diagnosis [...] femur, unspecified portion of femur, initial encounter ([facility]) ETOH abuse Age-related osteoporosis with current pathological [...] ANESTHESIA PLACEHOLDER Routine 05/14/2024 7:48 AM EDT KS AN ELECTIVE ENDOTRACHEAL AIRWAY Routine 05/14/2024 7:48 AM EDT INSERTION, INTRAMEDULLARY MICHELL, FEMUR 05/14/2024 7:20 AM EDT Other closed fracture of left femur, unspecified portion of femur, initial encounter ([facility]) PB POINT OF CARE IMAGING PLACEHOLDER Routine [...] - 4.5 mg/dL 05/31/2024 10:40 AM EDT [facility] Blood Venous blood specimen / Unknown Venipuncture / Unknown 05/31/2024 9:48 AM EDT 05/31/2024 10:09 AM EDT us Vish Lamas MD LAB BLOOD ORDERABLES Final Resul t [facility] [address] [place] [address] * (ABNORMAL) Basic metabolic panel (05/31/2024 9:48 AM EDT) Only the most recent of12 resultswithin the time period is included. Glucose, Plasma 99 74 - 99 mg/dL 05/31/2024 10:40 AM EDT [facility] BUN, Plasma 41(H) 7 - 21 mg/dL 05/31/2024 10:40 AM EDT [facility] Creatinine, Plasma 1.59(H) 0.70 - 1.20 mg/dL 05/31/2024 10:40 AM EDT [facility] BUN/Creatinine Ratio 26 05/31/2024 10:40 AM EDT [facility] Sodium, Plasma 136 136 - 145 mmol/L 05/31/2024 10:40 AM EDT [facility] Potassium, Plasma 4.5 3.6 - 4.9 mmol/L 05/31/2024 10:40 AM EDT [facility] Chloride, Plasma 98 97 - 107 mmol/L 05/31/2024 10:40 AM EDT [facility] CO2, Plasma 27 22 - 29 mmol/L 05/31/2024 10:40 AM EDT [facility] Anion Gap 11 6 - 16 mmol/L 05/31/2024 10:40 AM EDT [facility] Total Calcium, Plasma 9.9 8.9 - 10.2 mg/dL 05/31/2024 10:40 AM EDT [facility] eGFRcr 49.7 mL/min/1.7 3m*2 05/31/2024 10:40 AM EDT [facility] Comment:Reported eGFRcr in m L/min/1.73m2 is based the CKD-EPI 2020 equation that does not use a race coefficient. Blood Venous blood specimen / Unknown Venipuncture / Unknown 05/31/2024 9:48 AM EDT 05/31/2024 10:09 AM EDT Vish Lamas MD LAB BLOOD ORDERABLES Final Resul t Performing Organization Address City/[facility]/ZIP Co de Phone Number [facility] [address] [place] [address] * Lavender Top (05/29/2024 3:21 AM EDT) Extra Hold for add-ons 05/29/2024 6:02 AM EDT [facility] Comment:Auto resulted. Blood Venous blood specimen / Unknown 05/29/2024 3:21 AM EDT 05/29/2024 3:26 AM EDT Vish Lamas MD LAB BLOOD ORDERABLES Final Resul t Performing Organization Address City/[facility] Co de Phone Number [facility] [address] [place] [address] * (ABNORMAL) Renal function panel (05/27/2024 3:03 PM EDT) Only the most recent of4 resultswithin the time period is included. Glucose, Plasma 101(H) 74 - 99 mg/dL 05/27/2024 3:38 PM EDT [facility] BUN, Plasma 54(H) 7 - 21 mg/dL 05/27/2024 3:38 PM EDT [facility] Creatinine, Plasma 1.92(H) 0.70 - 1.20 mg/dL 05/27/2024 3:38 PM EDT [facility] BUN/Creatinine Ratio 28 05/27/2024 3:38 PM EDT [facility] Sodium, Plasma 137 136 - 145 mmol/L 05/27/2024 3:38 PM EDT [facility] Potassium, Plasma 4.8 3.6 - 4.9 mmol/L 05/27/2024 3:38 PM EDT [facility] Chloride, Plasma 100 97 - 107 mmol/L 05/27/2024 3:38 PM EDT [facility] CO2, Plasma 25 22 - 29 mmol/L 05/27/2024 3:38 PM EDT [facility] Anion Gap 12 6 - 16 mmol/L 05/27/2024 3:38 PM EDT [facility] Total Calcium, Plasma 10.1 8.9 - 10.2 mg/dL 05/27/2024 3:38 PM EDT [facility] Phosphorus, Plasma 6.6(H) 2.5 - 4.5 mg/dL 05/27/2024 3:38 PM EDT [facility] Albumin, Plasma 3.2(L) 3.5 - 5.2 g/dL 05/27/2024 3:38 PM EDT [facility] eGFRcr 39.6 mL/min/1.7 3m*2 05/27/2024 3:38 PM EDT [facility] Comment:Reported eGFRcr in m L/min/1.73m2 is based the CKD-EPI 2020 equation that does not use a race coefficient. Blood Venous blood specimen / Unknown Venipuncture / Unknown 05/27/2024 3:03 PM EDT 05/27/2024 3:09 PM EDT us Vish Lamas MD LAB BLOOD ORDERABLES Final Resul t [facility] [address] [place] [address] * (ABNORMAL) CBC W/O Differential (05/27/2024 4:51 AM EDT) Only the most recent of13 resultswithin the time period is included. WBC Count 6.30 3.70 - 10.30 10*3/uL LAB HEMATOLOGY METHOD 05/27/2024 5:26 AM EDT [facility] RBC Count 2.59(L) 4.60 - 6.10 10*6/uL LAB HEMATOLOGY METHOD 05/27/2024 5:26 AM EDT [facility] HGB 8.7(L) 13.7 - 17.5 g/dL LAB HEMATOLOGY METHOD 05/27/2024 5:26 AM EDT [facility] HCT 27.6(L) 40.0 - 51.0 % LAB HEMATOLOGY METHOD 05/27/2024 5:26 AM EDT [facility] Platelet Count 629(H) 155 - 369 10*3/uL LAB HEMATOLOGY METHOD 05/27/2024 5:26 AM EDT [facility] MCV 107(H) 79 - 98 fL LAB HEMATOLOGY METHOD 05/27/2024 5:26 AM EDT [facility] MCH 33.6(H) 26.0 - 32.0 pg LAB HEMATOLOGY METHOD 05/27/2024 5:26 AM EDT [facility] MCHC 31.5 30.7 - 35.5 g/dL LAB HEMATOLOGY METHOD 05/27/2024 5:26 AM EDT [facility] RDW 17.7(H) 11.5 - 14.5 % LAB HEMATOLOGY METHOD 05/27/2024 5:26 AM EDT [facility] MPV 9.4 8.8 - 12.5 fL LAB HEMATOLOGY METHOD 05/27/2024 5:26 AM EDT [facility] nRBC 0.0 <=0.0 per 100 WBCs LAB HEMATOLOGY METHOD 05/27/2024 5:26 AM EDT [facility] Blood Venous blood specimen / Unknown Venipuncture / Unknown 05/27/2024 4:51 AM EDT 05/27/2024 5:19 AM EDT us Vish Lamas MD LAB BLOOD ORDERABLES Final Resul t [facility] [address] [place] [address] * Potassium (05/24/2024 10:21 AM EDT) Only the most recent of2 resultswithin the time period is included. Potassium, Plasma 4.7 3.6 - 4.9 mmol/L 05/24/2024 10:51 AM EDT [facility] Blood Venous blood specimen / Unknown Venipuncture / Unknown 05/24/2024 10:21 AM EDT 05/24/2024 10:29 AM EDT [facility] LAB BLOOD ORDERABLES Fin al Result Performing Organization Address [facility] Co de Phone Number [facility] [address] [place] [address] * Magnesium (05/24/2024 1:17 AM EDT) Only the most recent of4 resultswithin the time period is included. Magnesium, Plasma 2.3 1.9 - 2.4 mg/dL 05/24/2024 2:00 AM EDT [facility] Blood Venous blood specimen / Unknown Venipuncture / Unknown 05/24/2024 1:17 AM EDT 05/24/2024 1:31 AM EDT [facility] LAB BLOOD ORDERABLES Fin al Result Performing Organization Address [facility] de Phone Number [facility] [address] [place] [address] * Phosphorus, Random, Urine (05/17/2024 3:43 PM EDT) Phosphorus, Urine 4.8 mg/dL 05/17/2024 4:26 PM EDT [facility] Urine Urine specimen obtained by clean catch procedure / Unknown Non-blood Collection / Unknown 05/17/2024 3:43 PM EDT 05/17/2024 3:51 PM EDT Pamella Rice APRN LAB URINE ORDERABLES Final Result Performing Organization Address City/[facility] Co de Phone Number [facility] [address] [place] [address] * Creatinine, Random, Urine (05/17/2024 3:43 PM EDT) Creatinine, Urine 89 mg/dL 05/17/2024 4:29 PM EDT [facility] Urine Urine specimen obtained by clean catch procedure / Unknown Non-blood Collection / Unknown 05/17/2024 3:43 PM EDT 05/17/2024 3:51 PM EDT us Miae A Mlack DRIER AND EVAPORATOR OPERATOR LAB URINE ORDERABLES Final Result [facility] [address] [place] [address] * Calcium, Random, Urine (05/17/2024 3:43 PM EDT) Calcium, Urine <0.8 mg/dL 05/17/2024 4:26 PM EDT [facility] Urine Urine specimen obtained by clean catch procedure / Unknown Non-blood Collection / Unknown 05/17/2024 3:43 PM EDT 05/17/2024 3:51 PM EDT us Miae A Mlack DRIER AND EVAPORATOR OPERATOR LAB URINE ORDERABLES Final Result Performing Organization Address City/[facility]/ZIP Co de Phone Number [facility] [address] [place] [address] * XR Chest 1 View (05/17/2024 11:56 [...] - 99 mg/dL 05/15/2024 7:31 AM EDT [facility] BUN, Plasma 26(H) 7 - 21 mg/dL 05/15/2024 7:31 AM EDT [facility] Creatinine, Plasma 1.36(H) 0.70 - 1.20 mg/dL 05/15/2024 7:31 AM EDT [facility] BUN/Creatinine Ratio 19 05/15/2024 7:31 AM EDT [facility] Sodium, Plasma 131(L) 136 - 145 mmol/L 05/15/2024 7:31 AM EDT [facility] Potassium, Plasma 5.3(H) 3.6 - 4.9 mmol/L 05/15/2024 7:31 AM EDT [facility] Chloride, Plasma 98 97 - 107 mmol/L 05/15/2024 7:31 AM EDT [facility] CO2, Plasma 23 22 - 29 mmol/L 05/15/2024 7:31 AM EDT [facility] Anion Gap 10 6 - 16 mmol/L 05/15/2024 7:31 AM EDT [facility] Total Calcium, Plasma 8.2(L) 8.9 - 10.2 mg/dL 05/15/2024 7:31 AM EDT [facility] Total Protein 6.0(L) 6.3 - 7.9 g/dL 05/15/2024 7:31 AM EDT [facility] Albumin, Plasma 2.9(L) 3.5 - 5.2 g/dL 05/15/2024 7:31 AM EDT [facility] AST, Plasma 97(H) 10 - 50 U/L 05/15/2024 7:31 AM EDT [facility] Comment:Hemolyzed, result ma y be falsely increased. ALT, Plasma 29 10 - 50 U/L 05/15/2024 7:31 AM EDT [facility] Alkaline Phosphatase, Plasma 419(H) 40 - 115 U/L 05/15/2024 7:31 AM EDT [facility] Total Bilirubin, Plasma 0.4 0.2 - 1.1 mg/dL 05/15/2024 7:31 AM EDT [facility] eGFRcr 59.9 mL/min/1.7 3m*2 05/15/2024 7:31 AM EDT [facility] Comment:Reported eGFRcr in m L/min/1.73m2 is based the CKD-EPI 2020 equation that does not use a race coefficient. Blood Venous blood specimen / Unknown Venipuncture / Unknown 05/15/2024 5:44 AM EDT 05/15/2024 5:52 AM EDT us Meghana Gann DO LAB BLOOD ORDERABLES Final Resu lt [facility] [address] [place] [address] * XR Femur Left 2+ Views (05/14/2024 [...] procedure well with no complications. Staffing Performed: TOBACCO BALER Anesthesiologist: Nathanael Salas MD TOBACCO BALER: Cholo Gasca CRNA, DNP Nathanael Salas MD ANESTHESIA ORDERABLES Final Result * KS AN ELECTIVE ENDOTRACHEAL AIRWAY, PB ANESTHESIA PLACEHOLDER (05/14/2024 7:48 AM EDT) Cholo Gibbs CRNA, DNP - 05/14/2024 7:48 AM EDT Cholo Gasca CRNA, DNP 05/14/2024 8:40 AM Airway Date/Time: 05/14/2024 7:48 AM Reason: elective Airway not difficult General Information and Staff Patient location during procedure: OR Anesthesiologist: Nathanael Salas MD TOBACCO BALER: Cholo Gasca CRNA, LEIGH Performed: TOBACCO BALER Patient Condition Indications for airway management: anesthesia [...] monitoring: continuous pulse ox, heart rate and fringing machine operator Block type: femoral (FI Block) Laterality: [...] Comment 05/14/2024 6:30 AM EDT [facility] Special Education Math Teacher ID Rohan Mendez 05/15/19 25 6:30 AM EDT [facility] Device ID [id number] 05/14/2024 6:30 AM EDT [facility] Specimen Type POC Capillary 05/14/2024 6:30 AM EDT [facility] Blood Capillary blood specimen / Unknown 05/14/2024 6:28 AM EDT 05/14/2024 6:30 AM EDT us Meghana Gann DO LAB POINT OF CARE TE ST DOCKED DEVICE UNSOLICITED RESULTS Final Result [facility] [address] [place] [id number] * POC Imaging (05/14/2024) Anatomical Region Laterality Modality Pelvis Other 05/14/2024 us External Provider IMG POINT OF CARE ULTRASOUND F inal Result * PT/INR (05/13/2024 11:17 PM EDT) Only the most recent of2 resultswithin the time period is included. Prothrombin Time 14.3 12.0 - 14.3 sec LAB COAGULATION METHOD 05/14/2024 12:05 AM EDT [facility] INR 1.1 0.9 - 1.1 LAB COAGULATION METHOD 05/14/2024 12:05 AM EDT [facility] Blood Venous blood specimen / Unknown Venipuncture / Unknown 05/13/2024 11:17 PM EDT 05/13/2024 11:25 PM EDT Narrative [facility] - 05/14/2024 12:05 AM EDT OPTIMAL INR RANGES FOR PATIENT ON ORAL ANTICOAGULANT THERAPY Prevention of venous thromboembolism INR 2.0 to 3.0 In patients with heart disease: Atrial fibrillation INR 2.0 to 3.0 Valvular heart disease INR 2.0 to 3.0 Tissue heart valves INR 2.0 to 3.0 Mechanical prosthetic valves INR 2.5 to 3.5 Prevention of recurrent TN INR 2.5 to 3.5 Meghana Gann DO LAB BLOOD ORDERABLES Final Resu lt [facility] [address] [place] [address] * (ABNORMAL) CBC and Differential (05/13/2024 11:17 PM EDT) Only the most recent of2 resultswithin the time period is included. WBC Count 6.96 3.70 - 10.30 10*3/uL LAB HEMATOLOGY METHOD 05/13/2024 11:34 PM EDT [facility] RBC Count 2.93(L) 4.60 - 6.10 10*6/uL LAB HEMATOLOGY METHOD 05/13/2024 11:34 PM EDT [facility] HGB 10.6(L) 13.7 - 17.5 g/dL LAB HEMATOLOGY METHOD 05/13/2024 11:34 PM EDT [facility] HCT 32.1(L) 40.0 - 51.0 % LAB HEMATOLOGY METHOD 05/13/2024 11:34 PM EDT [facility] Platelet Count 160 155 - 369 10*3/uL LAB HEMATOLOGY METHOD 05/13/2024 11:34 PM EDT [facility] MCV 110(H) 79 - 98 fL LAB HEMATOLOGY METHOD 05/13/2024 11:34 PM EDT [facility] Comment:Results inconsistent with previous lab findings. MCH 36.2(H) 26.0 - 32.0 pg LAB HEMATOLOGY METHOD 05/13/2024 11:34 PM EDT [facility] MCHC 33.0 30.7 - 35.5 g/dL LAB HEMATOLOGY METHOD 05/13/2024 11:34 PM EDT [facility] RDW 17.6(H) 11.5 - 14.5 % LAB HEMATOLOGY METHOD 05/13/2024 11:34 PM EDT [facility] MPV 9.8 8.8 - 12.5 fL LAB HEMATOLOGY METHOD 05/13/2024 11:34 PM EDT [facility] nRBC 0.7(H) <=0.0 per 100 WBCs LAB HEMATOLOGY METHOD 05/13/2024 11:34 PM EDT [facility] Differential Type Automated LAB HEMATOLOGY METHOD 05/13/2024 11:34 PM EDT [facility] Neutrophils % 77 % LAB HEMATOLOGY METHOD 05/13/2024 11:34 PM EDT [facility] Lymphocytes % 14 % LAB HEMATOLOGY METHOD 05/13/2024 11:34 PM EDT [facility] Monocytes % 6 % LAB HEMATOLOGY METHOD 05/13/2024 11:34 PM EDT [facility] Eosinophils % 1 % LAB HEMATOLOGY METHOD 05/13/2024 11:34 PM EDT [facility] Basophils % 2 % LAB HEMATOLOGY METHOD 05/13/2024 11:34 PM EDT [facility] Immature Granulocytes % 0 % LAB HEMATOLOGY METHOD 05/13/2024 11:34 PM EDT [facility] Neutrophils Absolute 5.34 1.60 - 6.10 10*3/uL LAB HEMATOLOGY METHOD 05/13/2024 11:34 PM EDT [facility] Lymphocytes Absolute 0.95(L) 1.20 - 3.90 10*3/uL LAB HEMATOLOGY METHOD 05/13/2024 11:34 PM EDT [facility] Monocytes Absolute 0.44 0.30 - 0.90 10*3/uL LAB HEMATOLOGY METHOD 05/13/2024 11:34 PM EDT [facility] Eosinophils Absolute 0.07 0.00 - 0.50 10*3/uL LAB HEMATOLOGY METHOD 05/13/2024 11:34 PM EDT [facility] Basophils Absolute 0.14(H) 0.00 - 0.10 10*3/uL LAB HEMATOLOGY METHOD 05/13/2024 11:34 PM EDT [facility] Immature Granulocytes Absolute 0.02 0.00 - 0.06 10*3/uL LAB HEMATOLOGY METHOD 05/13/2024 11:34 PM EDT [facility] Blood Venous blood specimen / Unknown Venipuncture / Unknown 05/13/2024 11:17 PM EDT 05/13/2024 11:25 PM EDT Narrative [facility] - 05/13/2024 11:34 PM EDT Therapeutic decision making should be based on absolute values, rather than percentages. us CerRx DO LAB BLOOD ORDERABLES Final Resu lt Performing Organization Address City/[facility] Co de Phone Number [facility] [address] [place] [address] * ECG Adult (05/13/2024 11:08 PM EDT) Only the most recent of2 resultswithin the time period is included. EKG DIAGNOSIS CLASS Abnormal MUSE ECG Ventricular Rate 130 BPM MUSE ECG Atrial Rate 130 BPM MUSE ECG KS Interval 90 ms MUSE ECG QRSD Interval 148 ms MUSE ECG QT Interval 380 ms MUSE ECG QTC Interval 559 ms MUSE ECG P [place] 105 degrees MUSE ECG R [place] 104 degrees MUSE ECG T Wave [place] 31 degrees MUSE ECG Diagnosis Sinus tachycardia with short KS MUSE ECG Diagnosis Right bundle branch block MUSE ECG Diagnosis MUSE ECG Diagnosis MUSE ECG Diagnosis Confirmed by Arnie Polanco [id number]) on 05/14/2024 12:32:25 PM MUSE ECG 05/13/2024 11:0 8 PM EDT 05/14/2024 12:32 PM EDT us Meghana Fourie DO ECG ORDERABLES Final Result Performing Organization Address City/[facility]/ZIP Co de Phone Number MUSE ECG * ECHO, ADULT TRANSTHORACIC COMPLETE W/ CONTRAST (05/13/2024 8:15 AM EDT) Height 182.9 GUS ISCV Weight 106.1 GUS ISCV BSA 2.28 m2 GUS ISCV LVIDd 45 mm GUS ISCV IVSd 13 mm GUS ISCV LVPWd 11 mm GUS ISCV LV MASS(C)D 201 g GUS ISCV LV RWT 0.53 mm GUS ISCV LVIDs 36 mm GSU ISCV LA dimension 45 mm GUS ISCV [...] - 4.20 uIU/mL 05/13/2024 7:46 AM EDT [facility] Blood Venous blood specimen / Unknown Venipuncture / Unknown 05/13/2024 6:45 AM EDT 05/13/2024 6:50 AM EDT Meghana Gann DO LAB BLOOD ORDERABLES Final Resu lt Performing Organization Address [facility]/ZIP Co de Phone Number [facility] [address] [place] [address] * (ABNORMAL) N-Terminal Probnp (05/13/2024 6:45 AM EDT) N-Terminal, PROBNP, Plasma 3,336(H) 0 - 899 pg/mL 05/13/2024 7:44 AM EDT [facility] Blood Venous blood specimen / Unknown Venipuncture / Unknown 05/13/2024 6:45 AM EDT 05/13/2024 6:50 AM EDT [employer] LAB BLOOD ORDERABLES Final Resu lt Performing Organization Address [facility] Co de Phone Number [facility] [address] [place] [address] * Iron & Total Iron Binding Capacity, Plasma (Includes Transferrin) (05/13/2024 6:45 AM EDT) Iron, Plasma 112 50 - 170 ug/dL 05/13/2024 7:44 AM EDT [facility] Transferrin, Plasma 203 200 - 360 mg/dL 05/13/2024 7:44 AM EDT [facility] Total Iron Binding Capacity, Plasma 254 240 - 450 ug/mL 05/13/2024 7:44 AM EDT [facility] Transferrin Saturation 44 14 - 50 % 05/13/2024 7:44 AM EDT [facility] Blood Venous blood specimen / Unknown Venipuncture / Unknown 05/13/2024 6:45 AM EDT 05/13/2024 6:50 AM EDT Meghananida RichardPatients Know Best LAB BLOOD ORDERABLES Final Resu lt Performing Organization Address [facility]/[place] [address] * (ABNORMAL) Free T4, Plasma (05/13/2024 6:45 AM EDT) Only the most recent of2 resultswithin the time period is included. Free T4, Plasma 0.4(L) 0.8 - 1.7 ng/dL 05/13/2024 8:13 AM EDT [facility] Blood Venous blood specimen / Unknown Venipuncture / Unknown 05/13/2024 6:45 AM EDT 05/13/2024 6:50 AM EDT [facility] LAB BLOOD ORDERABLES Final Resu lt Performing Organization Address [facility] Co de Phone Number [facility] [address] [place] [address] * Methicillin Resistant Staphylococcus aureus (MRSA) by PCR (05/13/2024 5:10 AM EDT) [facility] Methicillin Resistant Staphylococcus aureus (MRSA) by PCR Not Detected Not Detected 05/13/2024 9:19 AM EDT [facility] Swab Both anterior nares / Unknown Non-blood Collection / Unknown 05/13/2024 5:10 AM EDT 05/13/2024 7:27 AM EDT Narrative [facility] - 05/13/2024 9:19 AM EDT [...] ORDE RABLES Final Result Performing Organization Address [facility] Co de Phone Number [facility] [address] [place] [address] * (ABNORMAL) Bone Specific Alkaline Phosphatase (05/13/2024 4:10 AM EDT) [facility] Bone Specific Alkaline Phosphatase 34.5(H) 6.5 - 20.1 ug/L 05/13/2024 5:44 AM EDT [facility] Comment:Test performed at [facility], [facility] Laboratory. Blood Venous blood specimen / Unknown Venipuncture / Unknown 05/13/2024 4:10 AM EDT 05/13/2024 4:39 AM EDT us [employer] DO LAB REF LAB BLOOD AND FLUID ORD Final Result Performing Organization Address City/[facility]/ZIP Co de Phone Number [facility] [address] [place] [address] * Total Protein, Serum (05/13/2024 4:10 AM EDT) Total Protein 6.2 6.2 - 7.7 g/dL 05/13/2024 5:17 AM EDT [facility] Blood Venous blood specimen / Unknown Venipuncture / Unknown 05/13/2024 4:10 AM EDT 05/13/2024 4:39 AM EDT us [employer] DO LAB BLOOD ORDERABLES Final Resu lt Performing Organization Address City/[facility]/ZIP Co de Phone Number [facility] [address] [place] [address] * (ABNORMAL) Protein Electrophoresis, Serum (05/13/2024 4:10 AM EDT) Albumin Electrophoresis, Serum 3.0(L) 3.6 - 4.7 g/dL 05/14/2024 2:51 AM EDT [facility] Alpha 1 Globulin Electrophoresis, Serum 0.3 0.2 - 0.4 g/dL 05/14/2024 2:51 AM EDT [facility] Alpha 2 Globulin Electrophoresis, Serum 0.8 0.5 - 0.9 g/dL 05/14/2024 2:51 AM EDT [facility] Beta 1 Globulin Electrophoresis, Serum 0.4 0.3 - 0.5 g/dL 05/14/2024 2:51 AM EDT [facility] Beta 2 Globulin Electrophoresis, Serum 0.4 0.2 - 0.5 g/dL 05/14/2024 2:51 AM EDT [facility] Gamma Globulin Electrophoresis, Serum 1.3 0.6 - 1.5 g/dL 05/14/2024 2:51 AM EDT [facility] Interpretation, Serum Protein Electrophoresis Pathology report to follow. 05/14/2024 2:51 AM EDT [facility] Blood Venous blood specimen / Unknown Venipuncture / Unknown 05/13/2024 4:10 AM EDT 05/13/2024 4:40 AM EDT us Meghana aGnn DO LAB BLOOD ORDERABLES Final Resu lt Performing Organization Address [facility]/ZIP Co de Phone Number [facility] [address] [place] [address] * (ABNORMAL) Troponin T, High Sensitivity, 2 Hour, Plasma (05/13/2024 4:10 AM EDT) Troponin T, High Sensitivity, 2 Hour 20(H) <19 ng/L 05/13/2024 5:12 AM EDT [facility] Troponin Delta 1 <10 ng/L 05/13/2024 5:12 AM EDT [facility] Troponin Delta Interpretation Not Significant 05/13/2024 5:12 AM EDT [facility] Comment:Not Significant. No acute change in troponin observed between the baseline and 2 hour samples. Blood Venous blood specimen / Unknown Venipuncture / Unknown 05/13/2024 4:10 AM EDT 05/13/2024 4:39 AM EDT Ha Starr MD LAB BLOOD ORDERABLES Final Re sult Performing Organization Address [facility] Co de Phone Number [facility] [address] [place] [address] * Protein electrophoresis serum, pathologist interpretation (05/13/2024 4:10 AM EDT) Clinical Diagnosis, SPEP Hypothyroidism (acquired) 05/14/2024 10:28 AM EDT [facility] Interpretation , SPEP The protein electrophoresis pattern reveals that the albumin concentration is depressed. The low albumin levels might suggest albumin loss (renal or GI loss; formation of exudates or edema), or deficient albumin synthesis (malnutrition; malabsorption; liver failure). 05/14/2024 10:28 AM EDT [facility] Pathologist Signature, SPEP Reviewed by: Giorgio Quintero MD 05/14/2024 10:28 AM EDT [facility] CP ASR DISCLAIMER No 05/14/2024 10:28 AM EDT [facility] Blood Venous blood specimen / Unknown Venipuncture / Unknown 05/13/2024 4:10 AM EDT 05/13/2024 4:40 AM EDT Meghana Gann DO LAB PATHOLOGY ORDERABLES Final Result Performing Organization Address [facility] Co de Phone Number [facility] [address] [place] [address] * (ABNORMAL) Ionized calcium, serum (05/13/2024 4:10 AM EDT) Pathologist [facility] Ionized Calcium, Serum 4.3(L) 4.6 - 5.3 mg/dL LAB HEMATOLOGY METHOD 05/13/2024 4:55 AM EDT [facility] Blood Venous blood specimen / Unknown Venipuncture / Unknown 05/13/2024 4:10 AM EDT 05/13/2024 4:40 AM EDT Meghana Gann DO LAB BLOOD ORDERABLES Final Resu lt Performing Organization Address [facility] [place] [address] * (ABNORMAL) Vitamin D 25 hydroxy (05/13/2024 4:10 AM EDT) Vitamin D 25 Hydroxy 11.3(L) 20.0 - 80.0 ng/mL 05/13/2024 5:51 AM EDT [facility] Blood Venous blood specimen / Unknown Venipuncture / Unknown 05/13/2024 4:10 AM EDT 05/13/2024 4:39 AM EDT Narrative [facility] - 05/13/2024 5:51 AM EDT Testing performed on Broderick Fish Pitcher, standardized against NIST SRM 2972. When testing [...] to 80 ng/mL Possible toxicity: >100 ng/mL [facility] HilaryEV Connect DO LAB BLOOD ORDERABLES Final Resu lt Performing Organization Address City/[facility]/ZIP Co de Phone Number [facility] [address] [place] [address] * (ABNORMAL) PTH Intact Total (05/13/2024 4:10 AM EDT) PTH Intact Total 157(H) 9 - 77 pg/mL 05/13/2024 5:33 AM EDT [facility] Blood Venous blood specimen / Unknown Venipuncture / Unknown 05/13/2024 4:10 AM EDT 05/13/2024 4:26 AM EDT Narrative [facility] - 05/13/2024 5:33 AM EDT Assay performed by immunoassay at the [facility]. Performed on Broder[employer] Fish Pitcher chemiluminescent immunoassay, tractable to the World Health Organization's first international standard for PTH from the NIBSC, Code 79/500. Results obtained from different test methods or kits cannot be used interchangeably. Meghana Gann [employer] LAB BLOOD ORDERABLES Final Resu lt Performing Organization Address City/[facility] Co de Phone Number [facility] [address] [place] [address] * XR Hip Left Stress View (05/13/2024 [...] LAB COAGULATION METHOD 05/13/2024 4:16 AM EDT [facility] Blood Venous blood specimen / Unknown Venipuncture / Unknown 05/13/2024 3:17 AM EDT 05/13/2024 3:50 AM EDT Narrative [facility] - 05/13/2024 4:16 AM EDT Therapeutic Range: UFH Full Dose and ACS/TN protocols*: 0.30 - 0.70 IU/mL UFH Low Dose protocol*: 0.25 - 0.50 IU/mL UFH prophylaxis: Not established Ha Starr MD LAB BLOOD ORDERABLES Final Re sult [facility] [address] [place] [address] * (ABNORMAL) Troponin now and 120 min (05/13/2024 2:09 AM EDT) Troponin T, High Sensitivity, 0 Hour 19(H) <19 ng/L 05/13/2024 2:48 AM EDT [facility] Blood Venous blood specimen / Unknown Venipuncture / Unknown 05/13/2024 2:09 AM EDT 05/13/2024 2:22 AM EDT us Ha Starr MD LAB BLOOD ORDERABLES Final Re sult [facility] [address] [place] [address] * XR Tibia Fibula Left 2+ Views [...] ED as a transfer from outside hospital, [facility], after a fall earlier today resulting in [...] to ED as a transfer from outside hospital,[facility], after a fall earlier today resulting in [...] ED as a transfer from outside hospital, [facility], after a fall earlier today resulting in [...] to ED as a transfer from outside hospital,[facility], after a fall earlier today resulting in [...] ED as a transfer from outside hospital, [facility], after a fall earlier today resulting in [...] to ED as a transfer from outside hospital,[facility], after a fall earlier today resulting in [...] LAB HEMATOLOGY METHOD 05/13/2024 1:29 AM EDT [facility] Blood Venous blood specimen / Unknown Venipuncture / Unknown 05/13/2024 1:24 AM EDT 05/13/2024 1:28 AM EDT Ha Starr MD LAB BLOOD ORDERABLES Final Re sult [facility] [address] [place] [address] * (ABNORMAL) Ethyl Alcohol Plasma (05/13/2024 1:24 AM EDT) Ethanol Plasma 246(H) <10 mg/dL 05/13/2024 1:50 AM EDT [facility] Blood Venous blood specimen / Unknown Venipuncture / Unknown 05/13/2024 1:24 AM EDT 05/13/2024 1:27 AM EDT Narrative [facility] - 05/13/2024 1:50 AM EDT Enzymatic Assay: Performed on Jordi Terrence. us Ha Starr MD LAB BLOOD ORDERABLES Final Re sult Performing Organization Address City/[facility]/ZIP Co de Phone Number [facility] [address] [place] [address] * APTT (05/13/2024 1:24 AM EDT) aPTT 29 25 - 35 sec 05/13/2024 1:45 AM EDT [facility] Blood Venous blood specimen / Unknown Venipuncture / Unknown 05/13/2024 1:24 AM EDT 05/13/2024 1:27 AM EDT us Ha Starr MD LAB BLOOD ORDERABLES Final Re sult Performing Organization Address City/[facility]/ZIP Co de Phone Number [facility] [address] [place] [address] * Type and screen (05/13/2024 1:24 AM [...] ORDERABLE S Final Result BLOOD BANK [address] [place] [address], [place] * CT OUTSIDE IMAGES (05/12/2024 9:28 [...] Reactive Non Reactive 12/08/2023 11:31 PM EDT [facility] Comment:Screening for HIV 1 & 2 antibodies, and P24 antigen is NONREACTIVE. No confirmatory testing is required. Blood Venous blood specimen / Unknown Venipuncture / Unknown 12/08/2023 10:35 PM EDT 12/08/2023 10:45 PM EDT us Ivana Payne MD LAB BLOOD ORDERABLES Final Resul t [facility] [address] [place] [address] * Hepatitis C Antibody - ED (12/08/2023 10:35 PM EDT) Hepatitis C Antibody Negative Negative 12/08/2023 11:28 PM EDT [facility] Blood Venous blood specimen / Unknown Venipuncture / Unknown 12/08/2023 10:35 PM EDT 12/08/2023 10:45 PM EDT us Ivana Payne MD LAB BLOOD ORDERABLES Final Resul t [facility] [address] [place] [address] from Last 3 Months or Most Recently Relevant to Health Maintenance Insurance [employer] [place] Advance Directives * Full Code (Latest Code Status on File) Date Activated Date Inactivated Comments 05/13/2024 3:57 AM 06/01/2024 6:26 PM * Full Code Date Activated Date Inactivated Comments 12/09/2023 3:00 AM 01/03/2024 1:37 PM Question Answer Comments Patient has decision-making capacity? Yes Care Teams Edge Cutting Machine Operator Relationship Specialty Start Date End Date Casey Felix MD [address] [place] [address] PCP - General 09/05/20 Dotty Askew MD [address] [facility] [address] [place] [id number] Consulting Physician Pediatric Cardiology 09/05/20
--- OUTSIDE RECORDS SUMMARY | 2024-08-09 14:50 | XMS_ITS | Encounter Summary ---
Author Organization [employer] Address [address] [place] [address] Care Team Providers Care Office Cashier Name Role Phone Unavailable Primary Care Provider Unavailabl e Encounter Details Date Type Department Care Team (Late st Contact Info) Description 04/15/2019 Transcribed Document [facility] Family Medicine [address] [place] [address] ProviderSharon MD [facility] [place] [address] Social History Tobacco Use Types Packs/Day Years Used Date Smoking Tobacco: Never Assessed Sex and Gender Information Value Date Recorded Sex Assigned at Not on file Legal Sex Male 6:54 PM CDT Gender Identity Not on file Sexual Orientation Not on file documented as of this encounter Miscellaneous Notes * [employer] Conversion Note - Historical ProviderMD - 04/15/2019 4:10 PM LEGAL ADMINISTRATIVE SECRETARY Discharge Summary, PT Entered On: 04/15/2019 16:10 [...] SCOTT BILLINGS PTA - 04/15/2019 16:10 EST [facility] Goals Mobility/Bed Mobility LTG PT Grid Goal #1 Activity : Sit to stand Assist : Supervision or set-up Date to Meet : 04/28/2019 EST Goal Status : Not met SCOTT BILLNIGS PTA - 04/15/2019 16:10 EST Ambulation LTG Grid Goal #1 Device : None Distance : 500' Assist : Supervision or set-up Date to Meet : 04/28/2019 EST Goal Status : Not met SCOTT BILLINGS PTA - 04/15/2019 16:10 EST Electronically signed by Phil [facility] Con[employer] Solutions Consultant Cerner at 06/19/2022 4:30 PM CDT documented in this encounter Plan of Treatment Not on file documented as of this encounter Visit Diagnoses Not on filedocumented in this encounter
--- OUTSIDE RECORDS SUMMARY | 2024-08-09 14:50 | XMS_ITS | Encounter Summary ---
Author Organization [employer] Address [address] [place] [address] Care Team Providers Care Tube Bending Machine Operator Name Role Phone Unavailable Primary Care Provider Unavailabl e Encounter Details Date Type Department Care Team (Late st Contact Info) Description 04/15/2019 Transcribed Document [facility] [place] [address] [place] [address] ProviderSharon MD [address] [place] [address] Social History Tobacco Use Types Packs/Day Years Used Date Smoking Tobacco: Never Assessed Sex and Gender Information Value Date Recorded Sex Assigned at Not on file Legal Sex Male 6:54 PM CDT Gender Identity Not on file Sexual Orientation Not on file documented as of this encounter Miscellaneous Notes * [employer]ner Conversion Note - Historical ProviderMD - 04/15/2019 10:16 AM ANIMAL HUSBANDRY PROFESSOR Attempt to Treat, OT Entered On: 04/15/2019 [...]
--- OUTSIDE RECORDS SUMMARY | 2024-08-09 14:50 | XMS_ITS | Encounter Summary ---
Author Organization [employer] Address [address] [place] [address] Care Team Providers Care Sugar Sampler Name Role Phone Unavailable Primary Care Provider Lilia e Encounter Details Date Type Department Care Team (Late st Contact Info) Description 04/14/2019 Transcribed Document [facility] Family Medicine [address] [place] [address] ProviderSharon MD [facility] [place] [address] Social History Tobacco Use Types Packs/Day Years Used Date Smoking Tobacco: Never Assessed Sex and Gender Information Value Date Recorded Sex Assigned at Not on file Legal Sex Male 6:54 PM CDT Gender Identity Not on file Sexual Orientation Not on file documented as of this encounter Miscellaneous Notes * Cerner Conversion Note - Sharon ProviderMD - 04/14/2019 10:00 AM RIVER GUIDE Patient: RAUDEL ZEPEDA Age: 54 years Sex: [...] History of obstructive sleep apnea / IMO [id number] / Confirmed SVT - Supraventricular tachycardia / SNOMED CT [id number] / Confirmed, Active Problems (7) Alcohol abuse [...] rn time 34misn Electronically signed by Phil [facility] Conversion Cylinder Dyer Cerner at 06/19/2022 4:41 PM CDT documented in this encounter Plan of Treatment Not on file documented as of this encounter Visit Diagnoses Not on filedocumented in this encounter
--- OUTSIDE RECORDS SUMMARY | 2024-08-09 14:50 | XMS_ITS | Encounter Summary ---
Author Organization [employer] Address [address] [place] [address] Care Team Providers Care Hosiery Bagger Name Role Phone Unavailable Primary Care Provider Unavailabl e Encounter Details Date Type Department Care Team (Late st Contact Info) Description 04/15/2019 Transcribed Document [facility] [place] Family Medicine [address] [place] [address] ProviderSharon MD [facility] [place] [address] Social History Tobacco Use Types Packs/Day Years Used Date Smoking Tobacco: Never Assessed Sex and Gender Information Value Date Recorded Sex Assigned at Not on file Legal Sex Male 6:54 PM CDT Gender Identity Not on file Sexual Orientation Not on file documented as of this encounter Miscellaneous Notes * Cerner Conversion Note - Sharon ProviderMD - 04/15/2019 11:47 AM COMPRESSED GAS PLANT WORKER On Going Discharge Planning Entered On: 04/15/2019 11:52 EST Performed On: 04/15/2019 11:47 EST by YULI PATEL, RN-Lab Scientist ED Care Management Progress Note Discharge Arrangements [...] with D/C Plan? : Yes YULI PATEL, RN-Lab Scientist ED - 04/15/2019 11:47 EST Narrative Progress Note Narrative Progress Note : talked with Dr. Nagel and she has ordered a [facility] consult and is planning to discharge pt following this consult. CM called referral to [facility] p [phone] f [phone]. CM faxed facesheet to [facility] intake earlier [...] transport home with S.O.Gracie Chowdary. JUS MATAMOROS, Rn-Lab Scientist - 04/14/19 10:47:49 Day 4 - Heparin gtt; Dexa gtt; pt off the unit for ablation; anticipate d/c home with S.O. when stable; [facility] consult on d/c. JUS MATAMOROS Rn-Lab Scientist - 04/13/19 14:01:56 Anticipate pt will d/c home with S.O. when stable; [facility] consult when ready for d/c. JUS MATAMOROS Rn-Lab Scientist - 04/12/19 12:03:20 YULI PATEL RN-Lab Scientist ED - 04/15/2019 11:47 EST documented in this encounter Plan of Treatment Not on file documented as of this encounter Visit Diagnoses Not on filedocumented in this encounter
--- OUTSIDE RECORDS SUMMARY | 2024-08-09 14:50 | XMS_ITS | Encounter Summary ---
Author Organization [employer] Address [address] [place] [address] Care Team Providers Care Public Relations Manager Name Role Phone Unavailable Primary Care Provider Unavailabl e Encounter Details Date Type Department Care Team (Late st Contact Info) Description 04/14/2019 Transcribed Document [facility] [place] [address] [place] [address] ProviderSharon MD [address] [place], [place] [address] Social History Tobacco Use Types Packs/Day Years Used Date Smoking Tobacco: Never Assessed Sex and Gender Information Value Date Recorded Sex Assigned at Not on file Legal Sex Male 6:54 PM CDT Gender Identity Not on file Sexual Orientation Not on file documented as of this encounter Miscellaneous Notes * Cerner Conversion Note - Sharon ProviderMD - 04/14/2019 10:45 AM LINING PARTS SEWER On Going Discharge Planning Entered On: 04/14/2019 10:47 EST Performed On: 04/14/2019 10:45 EST by JUS MATAMOROS Rn-Silk SnapperManager Nuclear Progress Note Discharge Arrangements : Patient Post-Acute [...] Meeting Medical Necessity : Yes JUS MATAMOROS, Cira-Silk Snapper - 04/14/2019 10:45 EST Narrative Progress Note [...] stable; [facility] consult on d/c. JUS MATAMOROS Rn-Silk Snapper - 04/13/19 14:01:56 Anticipate pt will d/c home with S.O. when stable; [facility] consult when ready for d/c. JUS MATAMOROS Rn-Silk Snapper - 04/12/19 12:03:20 JUS MATAMOROS Rn-Silk Snapper - 04/14/2019 10:45 EST Electronically signed by Radha Villarreal Conversion Senior Treasury Consultant Cerner at 06/19/2022 4:36 PM CDT documented in this encounter Plan of Treatment Not on file documented as of this encounter Visit Diagnoses Not on filedocumented in this encounter
--- OUTSIDE RECORDS SUMMARY | 2024-08-09 14:50 | XMS_ITS | Encounter Summary ---
Author Organization [employer] Address [address] [place] [address] Care Team Providers Care Coat Operator Name Role Phone Unavailable Primary Care Provider Unavailabl e Encounter Details Date Type Department Care Team (Late st Contact Info) Description 04/15/2019 Transcribed Document [facility] [place] [address] [place] [address] ProviderSharon MD [address] [place], [place] [address] Social History Tobacco Use Types Packs/Day Years Used Date Smoking Tobacco: Never Assessed Sex and Gender Information Value Date Recorded Sex Assigned at Not on file Legal Sex Male 6:54 PM CDT Gender Identity Not on file Sexual Orientation Not on file documented as of this encounter Miscellaneous Notes * Cerner Conversion Note - Historical ProviderMD - 04/15/2019 12:32 PM ORE PUNCHER Patient: RAUDEL ZEPEDA Age: 54 Years Sex: [...] states he had it done here at [facility], however there are no available records of this procedure here. He reports having intermittent SVT for the last 2 months, for which he went to his primary care for 1 week ago. His primary care referred him back to Dr. Mathews who is his primary tourist adviser. When he arrived at Dr. Mathews's office [...] A call was then placed to our tourist adviser information services consultant who recommended amiodarone infusion and transfer for [...] EST, Food Consistency: Regular texture, 60 gm carbs:[id number] hilary, Isolation: Standard Precautions Follow Up Labs/Studies [...] Consult; IRVING HERMAN APRN 04/09/2019 19:55 EST documented in this encounter Plan of Treatment Not on file documented as of this encounter Visit Diagnoses Not on filedocumented in this encounter
--- OUTSIDE RECORDS SUMMARY | 2024-08-09 14:51 | XMS_ITS | Encounter Summary ---
Author Organization [employer] Address [address] [place] [address] Care Team Providers Care Honing Machine Operator Production Name Role Phone Unavailable Primary Care Provider Unavailabl e Encounter Details Date Type Department Care Team (Late st Contact Info) Description 04/12/2019 Transcribed Document [facility] [place] [address] [place] [address] ProviderSharon MD [address] [place] [address] Social History Tobacco Use Types Packs/Day Years Used Date Smoking Tobacco: Never Assessed Sex and Gender Information Value Date Recorded Sex Assigned at Not on file Legal Sex Male 6:54 PM CDT Gender Identity Not on file Sexual Orientation Not on file documented as of this encounter Miscellaneous Notes * Cerner Conversion Note - Sharon ProviderMD - 04/12/2019 11:58 AM SPECIAL DELIVERY WORKER Initial Discharge Planning Entered On: 04/12/2019 12:02 EST Performed On: 04/12/2019 11:58 EST by JUS MATAMOROS Rn-Ccie Initial Assessment I Previously Documented Living Environment [...] Listed? : Yes Medical Durable Power of Head Up Operator Name : None Legal Guardian : No Is Guardianship Needed : No JUS MATAMOROS Rn-Ccie - 04/12/2019 11:58 EST Initial Assessment II Sensory and Motor Deficits : Weakness Current Home Treatments and Equipment : None JUS MATAMOROS Rn-Ccie - 04/12/2019 11:58 EST Discharge Needs I Anticipated Discharge Date : 04/15/2019 EST Anticipated Discharge To, CM : Home with family care, Home with home health, penitentiary facility Current Home Treatment/Equipment : Current Home Treatment/Equipment No qualifying data available. Documentation Status Complete : Yes JUS MATAMOROS Rn-Ccie - 04/12/2019 11:58 EST Discharge Needs II Professional Skilled Services : Professional Skilled Services No qualifying data available. Needs Assistance with Transportation : No Discharge Options Discussed with Patient : Home Health, Substance abuse/mental health JUS MATAMOROS Rn-Ccie - 04/12/2019 11:58 EST Narrative Note Narrative Note : Day 1 - Chest Pain Hx ETOH Abuse, Htn, CHF Low Readmission Risk Cardiology Pt to have Lexiscan today; bedside RN Virgil states she needs consent from NO. CM spoke with pt's Pillo Chowdary and explained without HCS/AD - need to obtain consent from NOK - she identifies pt's two daughters Kaye Leos [phone]; Audelia Richardson [phone]. Informed Virgil of numbers to contact [facility] for consent. Met pt - awake in bed; pt states his PCP is Kev Melendez in [place]; that he requires assistance at home with his ADL's from Pillo Chowdary. Pt has no hx of hhc or STR - has had inpatient ETOH Rehab at the [facility] in [place]. Anticipate pt will need [facility] referral when medically stable for discharge. JUS MATAMOROS Rn-Ccie - 04/12/2019 11:58 EST documented in this encounter Plan of Treatment Not on file documented as of this encounter Visit Diagnoses Not on filedocumented in this encounter
--- OUTSIDE RECORDS SUMMARY | 2024-08-09 14:51 | XMS_ITS | Encounter Summary ---
Author Organization [employer] Address [address] [place] [address] Care Team Providers Care Educational Coordinator Name Role Phone Unavailable Primary Care Provider Unavailabl e Encounter Details Date Type Department Care Team (Late st Contact Info) Description 04/12/2019 Transcribed Document [facility] [place] [address] [place] [address] ProviderSharon MD [facility] [place] [address] Social History Tobacco Use Types Packs/Day Years Used Date Smoking Tobacco: Never Assessed Sex and Gender Information Value Date Recorded Sex Assigned at Not on file Legal Sex Male 6:54 PM CDT Gender Identity Not on file Sexual Orientation Not on file documented as of this encounter Miscellaneous Notes * Cerner Conversion Note - Sharon Phillips MD - 04/12/2019 7:55 AM PRODUCT MARKETER Patient: RAUDEL ZEPEDA Age: 54 years Sex: Male : 1965 Associated Diagnoses: None Author: JEANNE CONLEY MD-CAR Basic Information Tongue And Groove Machine Setter: Bisi Subjective NAD Health Status Current medications: [...] influenza virus vaccine, inactivated: 0.5 mL, IntraMuscular, [id number], Home Medications (9) Active doxepin , Oral [...] of motion, Normal strength. Integumentary: Warm, Dry, [place], Intact. Neurologic: Alert, Oriented. Psychiatric: Cooperative, Appropriate [...]
--- OUTSIDE RECORDS SUMMARY | 2024-08-09 14:51 | XMS_ITS | Encounter Summary ---
Author Organization [employer] Address [address] [place] [address] Care Team Providers Care Comparator Operator Name Role Phone Unavailable Primary Care Provider Unavailabl e Encounter Details Date Type Department Care Team (Late st Contact Info) Description 04/11/2019 Transcribed Document [facility] [place] Family Medicine [address] [place] [address] ProviderSharon MD [address], [place] [address] Social History Tobacco Use Types Packs/Day Years Used Date Smoking Tobacco: Never Assessed Sex and Gender Information Value Date Recorded Sex Assigned at Not on file Legal Sex Male 6:54 PM CDT Gender Identity Not on file Sexual Orientation Not on file documented as of this encounter Miscellaneous Notes * Cerner Conversion Note - Historical ProviderMD - 04/11/2019 1:20 PM SPINNER BOX Patient: RAUDEL ZEPEDA Age: 54 Years Sex: [...] 04/10/2019 17:28 EST Electronically signed by Phil [facility] Conversion Apartment Community Manager Cerner at 06/19/2022 4:31 PM CDT documented in this encounter Plan of Treatment Not on file documented as of this encounter Visit Diagnoses Not on filedocumented in this encounter
--- OUTSIDE RECORDS SUMMARY | 2024-08-09 14:51 | XMS_ITS | Encounter Summary ---
Author Organization [employer] Address [address] [place] [address] Care Team Providers Care Mill Turner Name Role Phone Unavailable Primary Care Provider Unavailabl e Encounter Details Date Type Department Care Team (Late st Contact Info) Description 04/13/2019 Transcribed Document [facility] [place] [address] [place] [address] ProviderSharon MD [address] [place], [place] [address] Social History Tobacco Use Types Packs/Day Years Used Date Smoking Tobacco: Never Assessed Sex and Gender Information Value Date Recorded Sex Assigned at Not on file Legal Sex Male 6:54 PM CDT Gender Identity Not on file Sexual Orientation Not on file documented as of this encounter Miscellaneous Notes * Cerner Conversion Note - Sharon ProviderMD - 04/13/2019 9:30 AM CERTIFIED HAND THERAPIST [facility] Main OR PACU Summary Primary Physician: SHILO MONTES DE [facility] Finalized Date/Time: 04/13/19 16:18:29 Pt. Name: RAUDEL ZEPEDA D.O.B./Sex: 1965 Male Med Rec #: [id number] Physician: MARLEY BERRIOS MD Financial #: [id number] Pt. Type: I Room/Bed: CV14/1 Admit/Disch: 04/09/19 18:47:00 - Institution: [facility] Main OR PACU I Case Times Entry 1 In PACU I 04/13/19 15:35:00 Ready for PACU 04/13/19 16:13:00 Discharge Discharge from PACU 04/13/19 16:13:00 I Last Modified By: DEBORA MENDENHALL RN 04/13/19 16:17:58 [facility] Main OR PACU I Case Times Audit 04/13/19 16:17:58 Sql Ssrs Developer: [id number] Modifier: [id number] <+> 1 Ready for PACU Discharge <+> 1 Discharge from PACU I Finalized By: DEBORA MENDENHALL RN Document Signatures Signed By: DEBORA MENDENHALL RN 04/13/19 16:18 Electronically signed by Phil [facility] Conversion Tank House Supervisor Cerner at 06/19/2022 4:35 PM CDT documented in this encounter Plan of Treatment Not on file documented as of this encounter Visit Diagnoses Not on filedocumented in this encounter
--- OUTSIDE RECORDS SUMMARY | 2024-08-09 14:51 | XMS_ITS | Encounter Summary ---
Author Organization [employer] Address [address] [place] [address] Care Team Providers Care Creative Writing Teacher Name Role Phone Unavailable Primary Care Provider Unavailabl e Encounter Details Date Type Department Care Team (Late st Contact Info) Description 04/10/2019 Transcribed Document [facility] [place] [address] [place] [address] ProviderSharon MD [facility] [place], [place] [address] Social History Tobacco Use Types Packs/Day Years Used Date Smoking Tobacco: Never Assessed Sex and Gender Information Value Date Recorded Sex Assigned at Not on file Legal Sex Male 6:54 PM CDT Gender Identity Not on file Sexual Orientation Not on file documented as of this encounter Miscellaneous Notes * Cerner Conversion Note - Historical ProviderMD - 04/10/2019 2:07 PM STEEPING PRESS TENDER Patient: RAUDEL ZEPEDA Age: 54 Years Sex: [...] influenza virus vaccine, inactivated, 0.5 mL, IntraMuscular, [id number] labetalol, 20 mg= 4 mL, IV Push, [...] Appearance CLEAR2 04/09/2019 21:55 EST Urine Specific [place] 1.014 04/09/2019 21:55 EST Urine pH Dipstick [...]
--- OUTSIDE RECORDS SUMMARY | 2024-08-09 14:51 | XMS_ITS | Encounter Summary ---
Author Organization [employer] Address [address] [place] [address] Care Team Providers Care Chief Business Development Officer Name Role Phone Unavailable Primary Care Provider Unavailabl e Encounter Details Date Type Department Care Team (Late st Contact Info) Description 04/10/2019 Transcribed Document [facility] [place] [address] [place] [address] ProviderSharon MD [address] [place] [address] Social History Tobacco Use Types Packs/Day Years Used Date Smoking Tobacco: Never Assessed Sex and Gender Information Value Date Recorded Sex Assigned at Not on file Legal Sex Male 6:54 PM CDT Gender Identity Not on file Sexual Orientation Not on file documented as of this encounter Miscellaneous Notes * Cerner Conversion Note - Historical ProviderMD - 04/10/2019 12:32 PM PROPELLER MECHANIC UM Authorization Entered On: 04/10/2019 12:33 EST Performed On: 04/10/2019 12:32 EST by Alonso Malik Mkt Restoration Technician-Utilization Mgt Primary Insurance Authorization Authorization and Policy Numbers : Insurance 1 Health Plan: [employer] FED Policy Number: [id number] Authorization Number: Insurance Primary Name : [facility] [id number] Authorization Status-Primary : Awaiting callback Authorized Service Begin Date-Primary : 04/09/2019 EST Authorization Comments-Primary : Clinicals paper faxed. Historical Authorization Comments-Primary : No Authorization Comments Found Alonso Malik Mkt Restoration Technician-Utilization Mgt - 04/10/2019 12:32 EST documented in this encounter Plan of Treatment Not on file documented as of this encounter Visit Diagnoses Not on filedocumented in this encounter
--- OUTSIDE RECORDS SUMMARY | 2024-08-09 14:51 | XMS_ITS | Encounter Summary ---
Author Organization [employer] Address [address] [place] [address] Care Team Providers Care Fur Sewer Name Role Phone Unavailable Primary Care Provider Unavailabl e Encounter Details Date Type Department Care Team (Late st Contact Info) Description 04/11/2019 Transcribed Document [facility] [place] [address] [place] [address] ProviderSharon MD [address] [place], [place] [address] Social History Tobacco Use Types Packs/Day Years Used Date Smoking Tobacco: Never Assessed Sex and Gender Information Value Date Recorded Sex Assigned at Not on file Legal Sex Male 6:54 PM CDT Gender Identity Not on file Sexual Orientation Not on file documented as of this encounter Miscellaneous Notes * Cerner Conversion Note - Historical ProviderMD - 04/11/2019 5:00 PM MANAGER ORGANIZATIONAL Chart Check - Review Order Profile Entered On: 04/11/2019 17:59 EST Performed On: 04/11/2019 17:00 EST by Karen Painter RN Chart Check Powerplans Initiated/Discontinued as Appropriate : Yes Karen Painter RN - 04/11/2019 17:59 EST Electronically signed by Phil [facility] Conversion Barrel Burner Karthik at 06/19/2022 4:31 PM CDT documented in this encounter Plan of Treatment Not on file documented as of this encounter Visit Diagnoses Not on filedocumented in this encounter
--- OUTSIDE RECORDS SUMMARY | 2024-08-09 14:51 | XMS_ITS | Encounter Summary ---
Author Organization [employer] Address [address] [place] [address] Care Team Providers Care Supervisor Cigar Making Machine Name Role Phone Unavailable Primary Care Provider Unavailabl e Encounter Details Date Type Department Care Team (Late st Contact Info) Description 04/12/2019 Transcribed Document [facility] [place] [address] [place] [address] ProviderSharon MD [address], [place] [address] Social History Tobacco Use Types Packs/Day Years Used Date Smoking Tobacco: Never Assessed Sex and Gender Information Value Date Recorded Sex Assigned at Not on file Legal Sex Male 6:54 PM CDT Gender Identity Not on file Sexual Orientation Not on file documented as of this encounter Miscellaneous Notes * Cerner Conversion Note - Historical ProviderMD - 04/12/2019 10:23 AM CERTIFIED PUBLIC ACCOUNTANT Education-Surgery Entered On: 04/12/2019 13:15 EST Performed On: 04/12/2019 10:23 EST by ASHLEY BREWER RN Teaching/Learning Assessment Barriers To Learning : Vision Impairment, Other: potential for withdrawal Learning Style Preferences Patient : Verbal explanation ASHLEY BREWER RN - 04/12/2019 13:15 EST Electronically signed by Phil [facility] Conversion Hatchery Worker Cerner at 06/19/2022 4:38 PM CDT documented in this encounter Plan of Treatment Not on file documented as of this encounter Visit Diagnoses Not on filedocumented in this encounter
--- OUTSIDE RECORDS SUMMARY | 2024-08-09 14:51 | XMS_ITS | Encounter Summary ---
Author Organization [employer] Address [address] [place] [address] Care Team Providers Care Senior Property Manager Name Role Phone Unavailable Primary Care Provider Unavailabl e Encounter Details Date Type Department Care Team (Late st Contact Info) Description 04/10/2019 Transcribed Document [facility] Radiology [address] [place] [address] Jerrell Kamara MD [address] [place] [address] Social History Tobacco Use Types Packs/Day Years [...] influenza virus vaccine, inactivated: 0.5 mL, IntraMuscular, [id number] labetalol: 20 mg, IV Push, Q1H, PRN: [...] of motion, Normal strength. Integumentary: Warm, Dry, [place], Intact. Neurologic: Alert, Oriented. Psychiatric: Cooperative, Appropriate [...]
--- OUTSIDE RECORDS SUMMARY | 2024-08-09 14:51 | XMS_ITS | Encounter Summary ---
Author Organization [employer] Address [address] [place] [address] Care Team Providers Care Parts Technician Name Role Phone Unavailable Primary Care Provider Unavailabl e Encounter Details Date Type Department Care Team (Late st Contact Info) Description 04/10/2019 Transcribed Document [facility] [place] Medicine [address] [place] [address] ProviderSharon MD [address] [place] [address] Social History Tobacco Use Types Packs/Day Years Used Date Smoking Tobacco: Never Assessed Sex and Gender Information Value Date Recorded Sex Assigned at Not on file Legal Sex Male 6:54 PM CDT Gender Identity Not on file Sexual Orientation Not on file documented as of this encounter Miscellaneous Notes * Cerner Conversion Note - Historical ProviderMD - 04/10/2019 2:00 AM MANUFACTURING BUSINESS ANALYST Clinical Engineer Details Entered On: 04/10/2019 3:34 EST Performed [...]
--- OUTSIDE RECORDS SUMMARY | 2024-08-09 14:51 | XMS_ITS | Encounter Summary ---
Author Organization [employer] Address [address] [place] [address] Care Team Providers Care Coil Connector Repairer Name Role Phone Unavailable Primary Care Provider Unavailabl e Encounter Details Date Type Department Care Team (Late st Contact Info) Description 04/12/[address] [facility] [place] Family Medicine [address] [place], [place] [address] ProviderSharon MD [address] [place] [address] Social History Tobacco Use Types Packs/Day Years Used Date Smoking Tobacco: Never Assessed Sex and Gender Information Value Date Recorded Sex Assigned at Not on file Legal Sex Male 6:54 PM CDT Gender Identity Not on file Sexual Orientation Not on file documented as of this encounter Miscellaneous Notes * Cerner Conversion Note - Sharon ProviderMD - 04/12/2019 7:59 PM HAND WORKER DATE OF SERVICE: 04/12/2019 LEXISCAN MYOVIEW PERFUSION [...] Normal left ventricular systolic function post stress. /[id number] Norbert Cardneas MD SSL/AQ / SSL / MODL /[id number] CC: Alonso Melendez Dr. Electronically signed by [facility] Conversion Engine Repair Supervisor Cerner at 06/19/2022 4:41 PM CDT documented in this encounter Plan of Treatment Not on file documented as of this encounter Visit Diagnoses Not on filedocumented in this encounter
--- OUTSIDE RECORDS SUMMARY | 2024-08-09 14:51 | XMS_ITS | Encounter Summary ---
Author Organization [employer] Address [address] [place] [address] Care Team Providers Care Small Stock Facer Name Role Phone Unavailable Primary Care Provider Unavailabl e Encounter Details Date Type Department Care Team (Late st Contact Info) Description 04/13/2019 Transcribed Document [facility] [place] [address] [place] [address] ProviderSharon MD [address] [place] [address] Social History Tobacco Use Types Packs/Day Years Used Date Smoking Tobacco: Never Assessed Sex and Gender Information Value Date Recorded Sex Assigned at Not on file Legal Sex Male 6:54 PM CDT Gender Identity Not on file Sexual Orientation Not on file documented as of this encounter Miscellaneous Notes * Cerner Conversion Note - Historical ProviderMD - 04/13/2019 4:14 AM HVAC ENGINEERING TECHNICIAN Height and Weight, Routine Entered On: 04/13/2019 4:15 EST Performed On: 04/13/2019 4:14 EST by MORRO GILLIAM RN Height and Weight, Routine Routine Weight Source : Bed scale Routine Weight Entry Format : Metric Routine Weight, Kilograms : 108.3 kg(Converted to: 238 lb 12 oz) Routine Weight Calculation : 108.3 kg Height Source : Stated Height Entry Format : [place] Height, Feet : 6 ft Height, Inches : 1 Inch Clinical Height : 185.42 cm Body Surface Area (BSA), Routine : 2.32 m2 Body Mass Index (BMI), Routine : 31.5 kg/m2 MORRO GILLIAM RN - 04/13/2019 4:14 EST Electronically signed by Radha Villarreal Conversion Brush Fabrication Supervisor Cerner at 06/19/2022 4:38 PM CDT documented in this encounter Plan of Treatment Not on file documented as of this encounter Visit Diagnoses Not on filedocumented in this encounter
--- OUTSIDE RECORDS SUMMARY | 2024-08-09 14:51 | XMS_ITS | Encounter Summary ---
Author Organization [employer] Address [address] [place] [address] Care Team Providers Care Sodium Methylate Operator Name Role Phone Unavailable Primary Care Provider Unavailabl e Encounter Details Date Type Department Care Team (Late st Contact Info) Description 04/15/2019 Transcribed Document [facility] [place] [address] [place] [address] ProviderSharon MD [address] [place] [address] Social History Tobacco Use Types Packs/Day Years Used Date Smoking Tobacco: Never Assessed Sex and Gender Information Value Date Recorded Sex Assigned at Not on file Legal Sex Male 6:54 PM CDT Gender Identity Not on file Sexual Orientation Not on file documented as of this encounter Miscellaneous Notes * Cerner Conversion Note - Historical ProviderMD - 04/15/2019 2:47 PM INFORMATION SYSTEMS PLANNER Nursing Discharge Summary Entered On: 04/15/2019 14:47 EST Performed On: 04/15/2019 14:47 EST by KATIE KHANNA weigher operator Documentation Discharge Date/Time : 04/15/2019 15:46 EST [...] KATIE KHANNA RN - 04/15/2019 14:47 EST Electronically signed by Phil [facility] Conversion It Quality Analyst Cerner at 06/19/2022 4:36 PM CDT documented in this encounter Plan of Treatment Not on file documented as of this encounter Visit Diagnoses Not on filedocumented in this encounter
--- OUTSIDE RECORDS SUMMARY | 2024-08-09 14:51 | XMS_ITS | Referral Summary ---
Author Organization [employer] Address [address] [place] [address] Care Team Providers Care Corn Husk Baler Name Role Phone Unavailable Primary Care Provider [...]
--- OUTSIDE RECORDS SUMMARY | 2024-08-09 14:51 | XMS_ITS | Encounter Summary ---
Author Organization [employer] Address [address] [place] [address] Care Team Providers Care Weed Thinner Name Role Phone Unavailable Primary Care Provider Unavailabl e Encounter Details Date Type Department Care Team (Late st Contact Info) Description 04/13/2019 Transcribed Document [facility] [place] Family Medicine [address] [place] [address] ProviderSharon MD [address], [place] [address] Social History Tobacco Use Types Packs/Day Years Used Date Smoking Tobacco: Never Assessed Sex and Gender Information Value Date Recorded Sex Assigned at Not on file Legal Sex Male 6:54 PM CDT Gender Identity Not on file Sexual Orientation Not on file documented as of this encounter Miscellaneous Notes * Cerner Conversion Note - Sharon Phillips MD - 04/13/2019 5:34 PM COSMETIC SURGEON Patient: RAUDEL ZEPEDA Age: 54 Years Sex: Male : 1965 Utilities Manager: Hardik Benavidez MD Indication: 55 yo here [...] follow-up with Dr. Mathews. Codes: SVT ablation (56679); additional SVT ablation (43431); 3D mapping (12859), LA pacing and recording (02914), intracardiac echo (85595), arterial line placement (93698), induce post IV drug (86965), vascular access with ultrasound. documented in this encounter Plan of Treatment Not on file documented as of this encounter Visit Diagnoses Not on filedocumented in this encounter
--- OUTSIDE RECORDS SUMMARY | 2024-08-09 14:51 | XMS_ITS | Encounter Summary ---
Author Organization [employer] Address [address] [place] [address] Care Team Providers Care Civil Transportation Engineer Name Role Phone Unavailable Primary Care Provider Unavailabl e Encounter Details Date Type Department Care Team (Late st Contact Info) Description 04/15/2019 Transcribed Document [facility] [place] [address] [place] [address] ProviderSharon MD [address] [place] [address] Social History Tobacco Use Types Packs/Day Years Used Date Smoking Tobacco: Never Assessed Sex and Gender Information Value Date Recorded Sex Assigned at Not on file Legal Sex Male 6:54 PM CDT Gender Identity Not on file Sexual Orientation Not on file documented as of this encounter Miscellaneous Notes * Cerner Conversion Note - Historical ProviderMD - 04/15/2019 2:00 AM MYSQL DATABASE DEVELOPER Fabric Inspector Details Entered On: 04/15/2019 4:16 EST Performed [...] YEIMY CASTRO, HORTENCIA - 04/15/2019 4:16 EST documented in this encounter Plan of Treatment Not on file documented as of this encounter Visit Diagnoses Not on filedocumented in this encounter
--- OUTSIDE RECORDS SUMMARY | 2024-08-09 14:51 | XMS_ITS | Encounter Summary ---
Author Organization [employer] Address [address] [place] [address] Care Team Providers Care Inspection Engineer Name Role Phone Unavailable Primary Care Provider Unavailabl e Encounter Details Date Type Department Care Team (Late st Contact Info) Description 04/14/2019 Transcribed Document [facility] [place] Family Medicine [address] [place] [address] ProviderSharon MD [facility] [place], [place] [address] Social History Tobacco Use Types Packs/Day Years Used Date Smoking Tobacco: Never Assessed Sex and Gender Information Value Date Recorded Sex Assigned at Not on file Legal Sex Male 6:54 PM CDT Gender Identity Not on file Sexual Orientation Not on file documented as of this encounter Miscellaneous Notes * Cerner Conversion Note - Historical ProviderMD - 04/14/2019 9:55 AM SEAT INSTALLER Evaluation, Physical Therapy Entered On: 04/14/2019 15:53 [...] and heart catheter procedure was done at [facility] 04/13/2019. Pt reports previously coming to [facility] for an ablation before in the past but [facility] has no record of this procedure and [...] ROM : WFL Right UE Strength : [facility] JOAQUIN NUR, Student PT - 04/14/2019 15:14 EST Right Upper Extremity Detailed ROM Grid Right Shoulder Flexion Range Right Elbow Flexion Range Right Elbow Extension Range Right Wrist Flexion Range Active : WFL WFL [facility] JOAQUIN AVILA, Student PT - 04/14/2019 15:14 EST JOAQUIN NUR, Student PT - 04/14/2019 15:14 EST JOAQUIN NUR, Student PT - 04/14/2019 15:14 EST JOAQUIN NUR, Student PT - 04/14/2019 15:14 EST Right Wrist Extension Range Right Forearm Pronation Range Right Forearm Supination Range [facility] : [facility] Student PT - 04/14/2019 15:14 EST [...] Wrist Flexion Range Active : WFL WFL [facility] JOAQUIN NUR, Student PT - 04/14/2019 15:14 EST JOAQUIN NUR, Student PT - 04/14/2019 15:14 EST JOAQUIN NUR, Student PT - 04/14/2019 15:14 EST JOAQUIN NUR, Student PT - 04/14/2019 15:14 EST Left Wrist Extension Range Rehab Left Forearm Pronation Range Left Forearm Supination Range Active : WFL [facility] JOAQUIN NUR, Student PT - 04/14/2019 15:14 EST JOAQUIN NUR, Student PT - 04/14/2019 15:14 EST JOAQUIN NUR, Student PT - 04/14/2019 15:14 EST Upper Extremity Strength Impaired : Yes Right UE Strength : WFL Left UE Strength : [facility] JOAQUIN NUR, Student PT - 04/14/2019 [...] Student PT - 04/14/2019 15:14 EST Hand Manager Diabetes Test : pt is 3/5 symmetrically. JOAQUIN NUR, Student PT - 04/14/2019 15:14 EST Lower Extremity LLE Active ROM : [facility] LELIA JEWELL, PT - 04/14/2019 15:55 EST LELIA JEWELL, PT - 04/14/2019 15:55 EST RLE ROM Grid Hip Flexion (0-125) Knee Flexion (0-140) Knee Extension (0-0) Ankle Dorsiflexion (0-20) Active : WFL [facility] JOAQUIN NUR, Student PT - 04/14/2019 15:14 [...] Frequency Rehab : Five days per week LELIA JEWELL, PT - 04/14/2019 15:55 EST PT [...] LELIA JEWELL, PT - 04/14/2019 15:55 EST Supervisor Pre Wave Goals Mobility/Bed Mobility LTG PT Grid Goal [...] NUR Student PT - 04/14/2019 15:14 EST [place] PT Charges PT Eval Moderate Complexity : 1 JOAQUIN NUR Student PT - 04/14/2019 15:14 EST Electronically signed by Phil, [facility] Conversion Graduate Intern Cerner at 06/19/2022 4:31 PM CDT documented in this encounter Plan of Treatment Not on file documented as of this encounter Visit Diagnoses Not on filedocumented in this encounter
--- OUTSIDE RECORDS SUMMARY | 2024-08-09 14:51 | XMS_ITS | Encounter Summary ---
Author Organization [employer] Address [address] [place] [address] Care Team Providers Care Commercial Loan Reviewer Name Role Phone Unavailable Primary Care Provider Unavailabl e Encounter Details Date Type Department Care Team (Late st Contact Info) Description 04/10/2019 Transcribed Document [facility] [place] Family Medicine [address] [place] [address] ProviderSharon MD [address] [place] [address] Social History Tobacco Use Types Packs/Day Years Used Date Smoking Tobacco: Never Assessed Sex and Gender Information Value Date Recorded Sex Assigned at Not on file Legal Sex Male 6:54 PM CDT Gender Identity Not on file Sexual Orientation Not on file documented as of this encounter Miscellaneous Notes * Cerner Conversion Note - Historical ProviderMD - 04/10/2019 5:00 PM STONE ENGRAVER Chart Check - Review Order Profile Entered On: 04/10/2019 18:31 EST Performed On: 04/10/2019 17:00 EST by Karen Painter RN Chart Check Powerplans Initiated/Discontinued as Appropriate : Yes All Active Orders Reviewed : Yes Karen Painter RN - 04/10/2019 18:31 EST Electronically signed by Phil [facility] Conversion Customer Service Operator Cerner at 06/19/2022 4:31 PM CDT documented in this encounter Plan of Treatment Not on file documented as of this encounter Visit Diagnoses Not on filedocumented in this encounter
--- OUTSIDE RECORDS SUMMARY | 2024-08-09 14:51 | XMS_ITS | Encounter Summary ---
Author Organization [email or web address] Address [address] [place] [address] Care Team Providers Care Psych Tech Name Role Phone Unavailable Primary Care Provider Unavailabl e Encounter Details Date Type Department Care Team (Late st Contact Info) Description 04/14/2019 Transcribed Document [facility] [place] Family Medicine [address] [place] [address] ProviderSharon MD [address] [place] [address] Social History Tobacco Use Types Packs/Day Years Used Date Smoking Tobacco: Never Assessed Sex and Gender Information Value Date Recorded Sex Assigned at Not on file Legal Sex Male 6:54 PM CDT Gender Identity Not on file Sexual Orientation Not on file documented as of this encounter Miscellaneous Notes * Cerner Conversion Note - Historical ProviderMD - 04/14/2019 9:56 AM ORTHOPEDIC PHYSICIAN Valuables and Belongings Entered On: 04/14/2019 11:23 EST Performed On: 04/14/2019 9:56 EST by SYLVAIN FELICIANO RN Valuables and Belongings Valuables and Belongings : Clothing, Personal items Clothing : Common streetwear Clothing Disposition : Bedside, With patient Personal Items : Cell phone Personal Items Disposition : Bedside, With patient SYLVAIN FELICIANO RN - 04/14/2019 11:23 EST Electronically signed by Phil [facility] Conversion Police Detention Attendant Cerner at 06/19/2022 4:33 PM CDT documented in this encounter Plan of Treatment Not on file documented as of this encounter Visit Diagnoses Not on filedocumented in this encounter
--- OUTSIDE RECORDS SUMMARY | 2024-08-09 14:51 | XMS_ITS | Encounter Summary ---
Author Organization [employer] Address [address] [place] [address] Care Team Providers Care Project Officer Name Role Phone Unavailable Primary Care Provider Unavailabl e Encounter Details Date Type Department Care Team (Late st Contact Info) Description 04/09/2019 Transcribed Document [facility] [facility] [place] [address] [place] [address] ProviderSharon MD [facility] [address] Social History Tobacco Use Types Packs/Day Years Used Date Smoking Tobacco: Never Assessed Sex and Gender Information Value Date Recorded Sex Assigned at Not on file Legal Sex Male 6:54 PM CDT Gender Identity Not on file Sexual Orientation Not on file documented as of this encounter Miscellaneous Notes * Cerner Conversion Note - Historical ProviderMD - 04/09/2019 6:45 PM SOLUTION COORDINATOR Admission History, Adult Entered On: 04/10/2019 3:32 [...] 3:19 EST General Info Contact Password : [id number] Emergency Contact #1 : Gracie Chowdary Emergency Contact #1 Emergency Contact #1 Relationship : Signigicant Other Emergency Contact #2 : none Emergency Contact #2 Phone Number : none Emergency Contact #2 Relationship : none Chief Complaint : Admission from [facility] with SVT Primary Language : Algerian Communication Barrier : None Luda Kay RN [...] Scale Risk Level : 25-45 Medium Risk [place] Fall Interventions : Assistive devices within reach, [...] Source : Stated Height Entry Format : Appling Height, Feet : 6 ft(Converted to: 183 [...] Body Mass Index : 32.5 kg/m2 (HI) [place] Body Weight : 79 kg Luda Kay [...] Luda Kay RN - 04/10/2019 3:19 EST [place] Suicide Severity Rating Scale (C-SSRS) CSSRS Past [...] Luda Kay RN - 04/10/2019 3:19 EST Electronically signed by Radha Villarreal Conversion Logistics Analytics Manager Cerner at 06/19/2022 4:31 PM CDT documented in this encounter Plan of Treatment Not on file documented as of this encounter Visit Diagnoses Not on filedocumented in this encounter
--- OUTSIDE RECORDS SUMMARY | 2024-08-09 14:51 | XMS_ITS | Encounter Summary ---
Author Organization [employer] Address [address] [place] [address] Care Team Providers Care Sign Language Instructor Name Role Phone Unavailable Primary Care Provider Unavailabl e Encounter Details Date Type Department Care Team (Late st Contact Info) Description 04/12/2019 Transcribed Document [facility] [place] [address] [place] [address] ProviderSharon MD [address] [place] [address] Social History Tobacco Use Types Packs/Day Years Used Date Smoking Tobacco: Never Assessed Sex and Gender Information Value Date Recorded Sex Assigned at Not on file Legal Sex Male 6:54 PM CDT Gender Identity Not on file Sexual Orientation Not on file documented as of this encounter Miscellaneous Notes * Cerner Conversion Note - Historical ProviderMD - 04/12/2019 5:00 AM SERVICE STATION EQUIPMENT MECHANIC Chart Check - Review Order Profile Entered On: 04/12/2019 8:09 EST Performed On: 04/12/2019 5:00 EST by MORRO GILLIAM RN Chart Check Powerplans Initiated/Discontinued as Appropriate : Yes All Active Orders Reviewed : Yes MORRO GILLIAM RN - 04/12/2019 8:09 EST Electronically signed by Julien Villarreal Conversion Juvenile Justice Specialist Cerner at 06/19/2022 4:40 PM CDT documented in this encounter Plan of Treatment Not on file documented as of this encounter Visit Diagnoses Not on filedocumented in this encounter
--- OUTSIDE RECORDS SUMMARY | 2024-08-09 14:51 | XMS_ITS | Encounter Summary ---
Author Organization [employer] Address [address] [place] [address] Care Team Providers Care Shaping Machine Tender Name Role Phone Unavailable Primary Care Provider Unavailabl e Encounter Details Date Type Department Care Team (Late st Contact Info) Description 04/15/2019 Transcribed Document [facility] [place] Family Medicine [address] [place] [address] ProviderSharon MD [address] [place] [address] Social History Tobacco Use Types Packs/Day Years Used Date Smoking Tobacco: Never Assessed Sex and Gender Information Value Date Recorded Sex Assigned at Not on file Legal Sex Male 6:54 PM CDT Gender Identity Not on file Sexual Orientation Not on file documented as of this encounter Miscellaneous Notes * Cerner Conversion Note - Historical ProviderMD - 04/15/2019 2:46 PM STONE SETTER Stroke/Warfarin Instructions Entered On: 04/15/2019 14:46 EST Performed On: 04/15/2019 14:46 EST by KATIE KHANNA RN Stroke/Warfarin Instructions Stroke/TIA Discharge Ins : N/A Warfarin Discharge Ins : N/A KATIE KHANNA RN - 04/15/2019 14:46 EST Electronically signed by Julien Villarreal Conversion Pneumatic Tester Mechanic Cerner at 06/19/2022 4:36 PM CDT documented in this encounter Plan of Treatment Not on file documented as of this encounter Visit Diagnoses Not on filedocumented in this encounter
--- OUTSIDE RECORDS SUMMARY | 2024-08-09 14:51 | XMS_ITS | Encounter Summary ---
Author Organization [employer] Address [address] [place] [id number] Care Team Providers Care Terrazzo Layer Name Role Phone Unavailable Primary Care Provider Unavailabl e Encounter Details Date Type Department Care Team (Late st Contact Info) Description 04/09/2019 Transcribed Document [facility] [place] Family Medicine [address] [place] [address] ProviderSharon MD [address] [place] [address] Social History Tobacco Use Types Packs/Day Years Used Date Smoking Tobacco: Never Assessed Sex and Gender Information Value Date Recorded Sex Assigned at Not on file Legal Sex Male 6:54 PM CDT Gender Identity Not on file Sexual Orientation Not on file documented as of this encounter Miscellaneous Notes * Cerner Conversion Note - Historical ProviderMD - 04/09/2019 8:32 PM PHYSICAL THERAPY ASSISTANT INSTRUCTOR Consult Phone Call Documentation Entered On: 04/10/2019 8:43 EST Performed On: 04/10/2019 8:00 EST by Crystal Adamson [facility] Phone Call for Consults Consult Phone Call/Page Attempt : Other: aware of consult Provider Service Notified Name : Cardiology Crystal Adamson [facility] - 04/10/2019 8:42 EST documented in this encounter Plan of Treatment Not on file documented as of this encounter Visit Diagnoses Not on filedocumented in this encounter
--- OUTSIDE RECORDS SUMMARY | 2024-08-09 14:51 | XMS_ITS | Encounter Summary ---
Author Organization [employer] Address [address] [place] [address] Care Team Providers Care Public Relations Account Supervisor Name Role Phone Unavailable Primary Care Provider Unavailabl e Encounter Details Date Type Department Care Team (Late st Contact Info) Description 04/10/2019 Transcribed Document [facility] [place] [address] [place] [address] ProviderSharon MD [address] [place] [address] Social History Tobacco Use Types Packs/Day Years Used Date Smoking Tobacco: Never Assessed Sex and Gender Information Value Date Recorded Sex Assigned at Not on file Legal Sex Male 6:54 PM CDT Gender Identity Not on file Sexual Orientation Not on file documented as of this encounter Miscellaneous Notes * Cerner Conversion Note - Historical ProviderMD - 04/10/2019 9:01 PM OPAL POLISHER Pain Assessment Entered On: 04/11/2019 9:37 EST [...]
--- OUTSIDE RECORDS SUMMARY | 2024-08-09 14:51 | XMS_ITS | Encounter Summary ---
Author Organization [email or web address] Address [address] [place] [address] Care Team Providers Care Industrial Retrofit Designer Name Role Phone Unavailable Primary Care Provider Unavailabl e Encounter Details Date Type Department Care Team (Late st Contact Info) Description 04/14/2019 Transcribed Document [facility] [place] [address] [place] [address] ProviderSharon MD [facility] [place] [address] Social History Tobacco Use Types Packs/Day Years Used Date Smoking Tobacco: Never Assessed Sex and Gender Information Value Date Recorded Sex Assigned at Not on file Legal Sex Male 6:54 PM CDT Gender Identity Not on file Sexual Orientation Not on file documented as of this encounter Miscellaneous Notes * Cerner Conversion Note - Sharon Phillips MD - 04/14/2019 7:44 AM SALES MARKETING Patient: RAUDEL ZEPEDA Age: 54 years Sex: Male : 1965 Associated Diagnoses: None Author: JEANNE CONLEY MD-CAR Basic Information Fruit Canner: Bisi Subjective NAD Health Status Allergies: Allergic [...] influenza virus vaccine, inactivated: 0.5 mL, IntraMuscular, [id number] Documented Medications Documented Metoprolol Tartrate 100 mg [...] All Problems Alcohol abuse / SNOMED CT 82911024 / Confirmed Anxiety / SNOMED CT 40369105 / Confirmed History of obstructive sleep apnea / IMO 62499679 / Confirmed Hypertension / SNOMED CT 9380801543 / Confirmed Hypothyroid / SNOMED CT 85308830 / Confirmed Smoker / SNOMED CT 800058634 / Confirmed SVT - Supraventricular tachycardia / SNOMED CT 5404755935 / Confirmed, Active Problems (7) Alcohol abuse [...] of motion, Normal strength. Integumentary: Warm, Dry, [place], Intact. Neurologic: Alert, Oriented. Psychiatric: Cooperative, Appropriate [...]
--- OUTSIDE RECORDS SUMMARY | 2024-08-09 14:51 | XMS_ITS | Encounter Summary ---
Author Organization [employer] Address [address] [place] [address] Care Team Providers Care Registration Scheduling Specialist Name Role Phone Unavailable Primary Care Provider Unavailabl e Encounter Details Date Type Department Care Team (Late st Contact Info) Description 04/15/2019 Transcribed Document [facility] [place] Family Medicine [address] [place] [address] ProviderSharon MD [address] [place], [place] [address] Social History Tobacco Use Types Packs/Day Years Used Date Smoking Tobacco: Never Assessed Sex and Gender Information Value Date Recorded Sex Assigned at Not on file Legal Sex Male 6:54 PM CDT Gender Identity Not on file Sexual Orientation Not on file documented as of this encounter Miscellaneous Notes * Cerner Conversion Note - Sharon Phillips MD - 04/15/2019 2:38 PM PATHOLOGY LABORATORY DIRECTOR Patient Education Materials Follows: How to Take [...] 08/24/2003 Document Revised: 09/06/2016 Document Reviewed: 07/23/2016 [employer] Interactive Patient Education ? 2019 [employer]. How to Take Your Blood Pressure You [...] monitor. You can buy one at a [employer] or online. When choosing one: ??? Choose [...] 01/30/2009 Document Revised: 01/15/2017 Document Reviewed: 07/26/2016 [employer] Interactive Patient Education ? 2019 [employer] Heart-Healthy Eating Plan Many factors influence [...] foods can I eat? Grains Breads, including Bahamian, white, nanci, wheat, raisin, rye, oatmeal, and Chadian. Tortillas that are neither fried nor made with lard or trans fat. Low-fat rolls, including hotdog and hamburger buns and Barbadian muffins. Biscuits. Muffins. Waffles. Pancakes. Light popcorn. Whole-grain cereals. Flatbread. [place] toast. Pretzels. Breadsticks. Rusks. Low-fat snacks and [...] cooking, baking, salads, and as spreads. Other Philip powder. Coffee and tea. All seasonings and [...] cheese. Whole milk cheeses, including blue (john), [place] Dayron, Brie, Omar, Lebanese, Havarti, Italian, cheddar, Camembert, and [place]. Whole or 2% milk that is liquid, [...] that has suet, meat fat, or shortening. Philip butter, hydrogenated oils, palm oil, coconut oil, [...] 11/26/2008 Document Revised: 09/06/2016 Document Reviewed: 08/11/2014 [employer] Interactive Patient Education ? 2019 [employer] Electrical Cardioversion Electrical cardioversion is the [...] including vitamins, herbs, eye drops, creams, and nupu-scy-abtovax medicines. ??? Any problems you or family [...] 02/07/2003 Document Revised: 10/16/2016 Document Reviewed: 08/23/2016 [employer] Interactive Patient Education ? 2017 [employer] Emergency Medicine Supraventricular Tachycardia, Adult Supraventricular [...] as told by your doctor. ??? Take syzk-yir-bkzaxip and prescription medicines only as told by [...] 02/17/2006 Document Revised: 10/24/2016 Document Reviewed: 10/24/2016 [employer]sense Interactive Patient Education ? 2019 [employer] documented in this encounter Plan of Treatment Not on file documented as of this encounter Visit Diagnoses Not on filedocumented in this encounter
--- OUTSIDE RECORDS SUMMARY | 2024-08-09 14:51 | XMS_ITS | Encounter Summary ---
Author Organization [employer] Address [address] [place] [address] Care Team Providers Care Foundry Process Engineer Name Role Phone Unavailable Primary Care Provider Unavailabl e Encounter Details Date Type Department Care Team (Late st Contact Info) Description 04/13/2019 Transcribed Document [facility] [place] Family [place] [address] [place] [address] ProviderSharon MD [facility] [place] [address] Social History Tobacco Use Types Packs/Day Years Used Date Smoking Tobacco: Never Assessed Sex and Gender Information Value Date Recorded Sex Assigned at Not on file Legal Sex Male 6:54 PM CDT Gender Identity Not on file Sexual Orientation Not on file documented as of this encounter Miscellaneous Notes * Cerner Conversion Note - Sharon Phillips MD - 04/13/2019 9:08 AM AMERICANIZATION TEACHER Patient: RAUDEL ZEPEDA Age: 54 years Sex: [...] influenza virus vaccine, inactivated: 0.5 mL, IntraMuscular, [id number] Documented Medications Documented Metoprolol Tartrate 100 mg [...] All Problems Alcohol abuse / SNOMED CT 92685350 / Confirmed Anxiety / SNOMED CT 33022845 / Confirmed History of obstructive sleep apnea / IMO 93157261 / Confirmed Hypertension / SNOMED CT 7189533628 / Confirmed Hypothyroid / SNOMED CT 07738356 / Confirmed Smoker / SNOMED CT 539097207 / Confirmed SVT - Supraventricular tachycardia / SNOMED CT 2515195742 / Confirmed, Active Problems (7) Alcohol abuse [...] of motion, Normal strength. Integumentary: Warm, Dry, [place], Intact. Neurologic: Alert, Oriented. Psychiatric: Cooperative, Appropriate mood & affect. Results Review Telemetry refrigerated cargo clerk personally reviewed shows NSR 60-70's The EKG [...] 55 yo male followed by Dr. Mathews [id number] 1 of at least one echo pending [...] with EPS/ablation this afternoon. 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
--- OUTSIDE RECORDS SUMMARY | 2024-08-09 14:51 | XMS_ITS | Encounter Summary ---
Author Organization [employer] Address [address] [place] [address] Care Team Providers Care Directional Bore Operator Name Role Phone Unavailable Primary Care Provider Unavailabl e Encounter Details Date Type Department Care Team (Late st Contact Info) Description 04/10/2019 Transcribed Document [facility] [place] [address] [place] [address] ProviderSharon MD [address] [place] [address] Social History Tobacco Use Types Packs/Day Years Used Date Smoking Tobacco: Never Assessed Sex and Gender Information Value Date Recorded Sex Assigned at Not on file Legal Sex Male 6:54 PM CDT Gender Identity Not on file Sexual Orientation Not on file documented as of this encounter Miscellaneous Notes * Cerner Conversion Note - Historical ProviderMD - 04/10/2019 5:00 AM HAND GLUER AND SLICER Chart Check - Review Order Profile Entered On: 04/10/2019 6:18 EST Performed On: 04/10/2019 5:00 EST by Luda Kay, RN Chart Check Powerplans Initiated/Discontinued as Appropriate : Not applicable All Active Orders Reviewed : Yes Luda Kay, RN - 04/10/2019 6:18 EST Electronically signed by Phil [facility] Conversion Forestry Consultant Cerner at 06/19/2022 4:32 PM CDT documented in this encounter Plan of Treatment Not on file documented as of this encounter Visit Diagnoses Not on filedocumented in this encounter
--- OUTSIDE RECORDS SUMMARY | 2024-08-09 14:51 | XMS_ITS | Encounter Summary ---
Author Organization [employer] Address [address] [place] [address] Care Team Providers Care Director Of It Operations Name Role Phone Unavailable Primary Care Provider Lilia e Encounter Details Date Type Department Care Team (Late st Contact Info) Description 04/13/2019 Transcribed Document [facility] [place] Family Medicine [address] [place] [address] ProviderSharon MD [facility] [place], [place] [address] Social History Tobacco Use Types Packs/Day Years Used Date Smoking Tobacco: Never Assessed Sex and Gender Information Value Date Recorded Sex Assigned at Not on file Legal Sex Male 6:54 PM CDT Gender Identity Not on file Sexual Orientation Not on file documented as of this encounter Miscellaneous Notes * Cerner Conversion Note - Historical ProviderMD - 04/13/2019 6:27 PM MANAGER EXCHANGE Patient: RAUDEL ZEPEDA Age: 54 years Sex: [...] influenza virus vaccine, inactivated: 0.5 mL, IntraMuscular, [id number] Documented Medications Documented Metoprolol Tartrate 100 mg [...] History of obstructive sleep apnea / IMO 32880303 / Confirmed SVT - Supraventricular tachycardia / SNOMED CT 8641017654 / Confirmed, Active Problems (7) Alcohol abuse [...] observation w/d symptoms cct 33mins gaurav garcía Electronically signed by Radha Villarreal Conversion Public Relations Specialist Cerner at 06/19/2022 4:37 PM CDT documented in this encounter Plan of Treatment Not on file documented as of this encounter Visit Diagnoses Not on filedocumented in this encounter
--- OUTSIDE RECORDS SUMMARY | 2024-08-09 14:51 | XMS_ITS | Encounter Summary ---
Author Organization [employer] Address [address] [place] [address] Care Team Providers Care Acid Washer Operator Name Role Phone Unavailable Primary Care Provider Unavailabl e Encounter Details Date Type Department Care Team (Late st Contact Info) Description 04/10/2019 Transcribed Document [facility] [place] Family Medicine [address] [place] [address] ProviderSharon MD [address] [place], [place] [address] Social History Tobacco Use Types Packs/Day Years Used Date Smoking Tobacco: Never Assessed Sex and Gender Information Value Date Recorded Sex Assigned at Not on file Legal Sex Male 6:54 PM CDT Gender Identity Not on file Sexual Orientation Not on file documented as of this encounter Miscellaneous Notes * Cerner Conversion Note - Historical ProviderMD - 04/10/2019 12:42 PM BAGGAGE SCREENER UM Authorization Entered On: 04/10/2019 12:42 EST Performed On: 04/10/2019 12:42 EST by Alonso Malik Mkt Neurology Physician-Utilization Mgt Primary Insurance Authorization Authorization and Policy Numbers : Insurance 1 Health Plan: [employer] FED Policy Number: [id number] Authorization Number: Insurance Primary Name : Hiren [id number] Authorization Status-Primary : Awaiting callback Reference Number-Primary : [id number] Authorized Service Begin Date-Primary : 04/09/2019 EST Authorization Comments-Primary : Inpt auth requested and clinicals submitted via Availity as pt has commercial [place] plan, not Federal as listed. Historical Authorization Comments-Primary : Comment 1: Clinicals paper faxed. (Alonso Malik Mkt Neurology Physician-Utilization Mgt 04/10/2019 12:32) Alonso Malik Mkt Neurology Physician-Utilization Mgt - 04/10/2019 12:42 EST Electronically signed by [facility] Conversion Cut Out Stitcher Cerner at 06/19/2022 4:38 PM CDT documented in this encounter Plan of Treatment Not on file documented as of this encounter Visit Diagnoses Not on filedocumented in this encounter
--- OUTSIDE RECORDS SUMMARY | 2024-08-09 14:51 | XMS_ITS | Encounter Summary ---
Author Organization Healthcare Address [address] [place] [address] Care Team Providers Care General Claims Agent Name Role Phone Casey Felix MD Primary Care Provider + [phone] Dotty Askew MD Unavailable +[phone] Renetta Delgado LPN Unavailable Unavailable Encounter Details Date Type Department Care Team (Late Contact Info) Description 08/15/2023 Lab Requisition [facility] [address] [place] [address] Juan Pablo Rivas, DO [address] [place] [address] Encounter for general adult medical [...] Description 09/02/2024 10:40 AM EDT Office Visit [facility] Willard Maurilio [address] [facility]. [address] [place] [id number] Jakub Malave MD [address] [place] [address] documented as of this encounter [...] History not provided 08/18/2023 5:29 PM EDT [facility] Interpretation, Body Fluid Acute inflammatory cells No pathogenic organisms seen Correlation with microbiology studies recommended A resident was involved in the service. I attest I examined the relevant preparations for the specimens and confirmed the diagnosis or interpretation. 08/18/2023 5:29 PM EDT [facility] Pathologist Signature, Body Fluid 08/18/2023 5:29 PM EDT [facility] Comment:Reviewed by: Yamini fong MD LAB CP ASR DISCLAIMER Yes 08/18/2023 5:29 PM EDT [facility] Joint Fluid 08/15/2023 11:5 9 AM EDT 08/15/2023 2:08 PM EDT us Juan Pablo Rivas DO LAB BODY FLUIDS AND STOOLS ORDER VALERIE Final Result [facility] [address] [place] [address] * (ABNORMAL) Body Fluid Cell Count w/ Diff (08/15/2023 11:59 AM EDT) Color, Body fluid Yellow LAB HEMATOLOGY METHOD 08/15/2023 4:01 PM EDT [facility] Appearance, Body fluid Cloudy(A) LAB HEMATOLOGY METHOD [facility]23 [facility] Volume, Body fluid 4.0 cc LAB HEMATOLOGY METHOD 08/15/2023 4:[facility] Fluid Container SPECIMEN RECEIVED IN EDTA TUBE LAB HEMATOLOGY METHOD 08/15/2023 4:01 PM EDT [facility] Red Blood Cell Count, Body fluid 64 uL LAB HEMATOLOGY METHOD 08/15/2023 4:01 PM [facility] Comment:Test performed by alexi tan method Total Nucleated Cell Count, Body fluid 13,742 uL LAB HEMATOLOGY METHOD 08/15/2023 4:01 PM EDT [facility] Neutrophils %, Body fluid 94 % LAB HEMATOLOGY METHOD 08/15/2023 4:[facility] Lymphocytes %, Body fluid 1 % LAB HEMATOLOGY METHOD 08/15/2023 4:01 PM EDT [facility] Monocytes/Macro phages %, Body fluid 5 % LAB HEMATOLOGY METHOD 08/15/2023 4:01 PM EDT [facility] Eosinophils %, Body fluid 0 % LAB HEMATOLOGY METHOD 08/15/2023 4:01 PM [facility] Basophils %, Body fluid 0 % LAB HEMATOLOGY METHOD 08/15/2023 4:01 PM EDT [facility] Lining/[place] ial Cells %, Body fluid 0 % LAB HEMATOLOGY METHOD 08/15/2023 4:[facility] Neutrophils Absolute (PMN), Body fluid 12,918 uL LAB HEMATOLOGY METHOD 08/15/2023 4:01 PM EDT [facility] Lymphocytes Absolute, Body fluid 137 uL LAB HEMATOLOGY METHOD 08/15/2023 4:[facility] Monocytes/Macro phages Absolute, Body fluid 687 uL LAB HEMATOLOGY METHOD 08/15/2023 4:[facility] Eosinophils Absolute, Body fluid 0 uL LAB HEMATOLOGY METHOD 08/15/2023 4:[facility] Basophils Absolute, Body fluid 0 uL LAB HEMATOLOGY METHOD 08/15/2023 4:[facility] Lining/[place] ial Cells Absolute, Body fluid 0 uL LAB HEMATOLOGY METHOD 08/15/2023 4:01 PM [facility] Comment, Body fluid NONE LAB HEMATOLOGY METHOD 08/15/2023 4:01 PM EDT [facility] Comment:This is an appended report. These results have been appended to a previously preliminary verified report. Joint Fluid 08/15/2023 11:5 9 AM EDT 08/15/2023 2:08 PM EDT us Gene J Rivas DO LAB BODY FLUIDS AND STOOLS ORDERABLES NO SPECIMEN TYPE/SOURCE Final Result Performing Organization Address [facility] de Phone Number [facility] [address] [place] [address] * Joint Fluid Crystals (08/15/2023 11:59 AM EDT) Crystals, Joint Fluid No Crystals Seen No Crystals Present 08/15/2023 3:09 PM EDT HEALTHC[facility] Joint Fluid 08/15/2023 11:5 9 AM EDT 08/15/2023 2:08 PM EDT us Gene J Rivas DO LAB BODY FLUIDS AND STOOLS ORDER VALERIE Final Result Performing Organization Address [facility] de Phone Number [facility] [address] [place] [address] documented in this encounter Visit Diagnoses Diagnosis [...] documented as of this encounter Care Teams General Claims Agent Relationship Specialty Start Date End Date Casey Felix MD [address] [place] [address] PCP - General 09/05/20 Dotty Askew MD [address] [place] [address] Consulting Physician Pediatric Cardiology 09/05/20 Renetta Delgado LPN TCM Nurse 01/05/24 02/04/24 documented as of this encounter
--- OUTSIDE RECORDS SUMMARY | 2024-08-09 14:51 | XMS_ITS | Encounter Summary ---
Author Organization [employer] Address [address] [place] [address] Care Team Providers Care Spline Rolling Machine Job Setter Name Role Phone Unavailable Primary Care Provider Unavailabl e Encounter Details Date Type Department Care Team (Late st Contact Info) Description 04/12/2019 Transcribed Document [facility] [place] Family Medicine [address] [place] [address] ProviderSharon MD [address] [place] [address] Social History Tobacco Use Types Packs/Day Years Used Date Smoking Tobacco: Never Assessed Sex and Gender Information Value Date Recorded Sex Assigned at Not on file Legal Sex Male 6:54 PM CDT Gender Identity Not on file Sexual Orientation Not on file documented as of this encounter Miscellaneous Notes * Cerner Conversion Note - Historical ProviderMD - 04/12/2019 8:01 AM MEDICAL TECHNOLOGIST PRN Height and Weight, Routine Entered On: 04/12/2019 8:01 EST Performed On: 04/12/2019 8:01 EST by MORRO GILLIAM RN Height and Weight, Routine Routine Weight Source : Bed scale Routine Weight Entry Format : Metric Height Source : Stated Height Entry Format : [place] Height, Feet : 6 ft Height, Inches : 1 Inch Clinical Height : 185.42 cm MORRO GILLIAM RN - 04/12/2019 8:01 EST documented in this encounter Plan of Treatment Not on file documented as of this encounter Visit Diagnoses Not on filedocumented in this encounter
--- OUTSIDE RECORDS SUMMARY | 2024-08-09 14:51 | XMS_ITS | Encounter Summary ---
Author Organization [employer] Address [address] [place] [address] Care Team Providers Care Metal Sprayer Machined Parts Name Role Phone Unavailable Primary Care Provider Unavailabl e Encounter Details Date Type Department Care Team (Late st Contact Info) Description 04/09/2019 Transcribed Document [facility] [place] [address] [place] [address] ProviderSharon MD [address] [place], [place] [address] Social History Tobacco Use Types Packs/Day Years Used Date Smoking Tobacco: Never Assessed Sex and Gender Information Value Date Recorded Sex Assigned at Not on file Legal Sex Male 6:54 PM CDT Gender Identity Not on file Sexual Orientation Not on file documented as of this encounter Miscellaneous Notes * Cerner Conversion Note - Historical ProviderMD - 04/09/2019 7:05 PM STRUCTURAL STEEL DETAILER Height and Weight, Clinical Dosing Entered On: 04/09/2019 19:05 EST Performed On: 04/09/2019 19:05 EST by MARILYN Shaw RN Height and Weight, Clinical Dosing Height Source : Stated Height Entry Format : [place] Height, Feet : 6 ft(Converted to: 183 [...] Body Mass Index : 32.5 kg/m2 (HI) [place] Body Weight : 79 kg MARILYN Shaw RN - 04/09/2019 19:05 EST Electronically signed by Phil [facility] Conversion Registered Nurse Nursery Cerner at 06/19/2022 4:30 PM CDT documented in this encounter Plan of Treatment Not on file documented as of this encounter Visit Diagnoses Not on filedocumented in this encounter
--- OUTSIDE RECORDS SUMMARY | 2024-08-09 14:51 | XMS_ITS | Encounter Summary ---
Author Organization [employer] Address [address] [place] [address] Care Team Providers Care Clinical Social Worker Name Role Phone Unavailable Primary Care Provider Unavailabl e Encounter Details Date Type Department Care Team (Late st Contact Info) Description 04/14/2019 Transcribed Document [facility] [place] Family Medicine [address] [place] [address] ProviderSharon MD [address] [place] [address] Social History Tobacco Use Types Packs/Day Years Used Date Smoking Tobacco: Never Assessed Sex and Gender Information Value Date Recorded Sex Assigned at Not on file Legal Sex Male 6:54 PM CDT Gender Identity Not on file Sexual Orientation Not on file documented as of this encounter Miscellaneous Notes * Cerner Conversion Note - Historical ProviderMD - 04/14/2019 5:00 PM ACTIVE DIRECTORY ENGINEER Chart Check - Review Order Profile Entered On: 04/14/2019 15:25 EST Performed On: 04/14/2019 17:00 EST by Marla Murrell RN Chart Check Powerplans Initiated/Discontinued as Appropriate : Yes All Active Orders Reviewed : Yes Marla Murrell RN - 04/14/2019 15:25 EST Electronically signed by Julien Villarreal Conversion Group Leader Wafer Polishing Cerner at 06/19/2022 4:29 PM CDT documented in this encounter Plan of Treatment Not on file documented as of this encounter Visit Diagnoses Not on filedocumented in this encounter
--- OUTSIDE RECORDS SUMMARY | 2024-08-09 14:51 | XMS_ITS | Encounter Summary ---
Author Organization [employer] Address [address] [place] [address] Care Team Providers Care Binder Operator Name Role Phone Unavailable Primary Care Provider Unavailabl e Encounter Details Date Type Department Care Team (Late st Contact Info) Description 04/14/2019 Transcribed Document [facility] [place] [address] [place] [address] ProviderSharon MD [facility] [place] [address] Social History Tobacco Use Types Packs/Day Years Used Date Smoking Tobacco: Never Assessed Sex and Gender Information Value Date Recorded Sex Assigned at Not on file Legal Sex Male 6:54 PM CDT Gender Identity Not on file Sexual Orientation Not on file documented as of this encounter Miscellaneous Notes * Cerner Conversion Note - Sharon Phillips MD - 04/14/2019 11:56 AM METEOROLOGICAL TECHNICIAN Patient: RAUDEL ZEPEDA Age: 54 years Sex: [...] All Problems Alcohol abuse / SNOMED CT 65631264 / Confirmed Anxiety / SNOMED CT 24316721 / Confirmed History of obstructive sleep apnea / IMO 63871814 / Confirmed Hypertension / SNOMED CT 4019465422 / Confirmed Hypothyroid / SNOMED CT 26301119 / Confirmed Smoker / SNOMED CT 204582398 / Confirmed SVT - Supraventricular tachycardia / SNOMED CT 2521143695 / Confirmed, Active Problems (7) Alcohol abuse [...] of motion, Normal strength. Integumentary: Warm, Dry, [place], Intact. Neurologic: Alert, Oriented. Psychiatric: Cooperative, Appropriate [...] 55 yo male followed by Dr. Mathews [id number] 1 of at least one echo pending [...] with EPS/ablation this afternoon. 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
--- OUTSIDE RECORDS SUMMARY | 2024-08-09 14:51 | XMS_ITS | Encounter Summary ---
Author Organization [employer] [facility] Address [address] [place] [address] Care Team Providers Care Lpn Medical Assistant Name Role Phone Unavailable Primary Care Provider Unavailabl e Encounter Details Date Type Department Care Team (Late st Contact Info) Description 04/13/2019 Transcribed Document [facility] [place] [address] [place] [address] ProviderSharon MD [facility] [place] [address] Social History Tobacco Use Types Packs/Day Years Used Date Smoking Tobacco: Never Assessed Sex and Gender Information Value Date Recorded Sex Assigned at Not on file Legal Sex Male 6:54 PM CDT Gender Identity Not on file Sexual Orientation Not on file documented as of this encounter Miscellaneous Notes * Cerner Conversion Note - Sharon Phillips MD - 04/13/2019 7:16 AM CASE MANAGEMENT RN Patient: RAUDEL ZEPEDA Age: 54 years Sex: Male : 1965 Associated Diagnoses: None Author: JEANNE CONLEY MD-CAR Basic Information Rip And Groove Machine Operator: Bisi Subjective NAD Health Status Current medications: [...] influenza virus vaccine, inactivated: 0.5 mL, IntraMuscular, [id number], Home Medications (9) Active doxepin 10 mg, [...] of motion, Normal strength. Integumentary: Warm, Dry, [place], Intact. Neurologic: Alert, Oriented. Psychiatric: Cooperative, Appropriate [...]
--- OUTSIDE RECORDS SUMMARY | 2024-08-09 14:51 | XMS_ITS | Encounter Summary ---
Author Organization [employer] Address [address] [place] [address] Care Team Providers Care Attic Blower Name Role Phone Unavailable Primary Care Provider Unavailabl e Encounter Details Date Type Department Care Team (Late st Contact Info) Description 04/14/2019 Transcribed Document [facility] [place] Family Medicine [address] [place] [address] ProviderSharon MD [address] [place] [address] Social History Tobacco Use Types Packs/Day Years Used Date Smoking Tobacco: Never Assessed Sex and Gender Information Value Date Recorded Sex Assigned at Not on file Legal Sex Male 6:54 PM CDT Gender Identity Not on file Sexual Orientation Not on file documented as of this encounter Miscellaneous Notes * Cerner Conversion Note - Historical ProviderMD - 04/14/2019 9:56 AM CAR DISTRIBUTOR Carpenter Mold Details Entered On: 04/14/2019 11:23 EST Performed [...] EST Electronically signed by Julien Villarreal Conversion Solar Photovoltaic Electrician Cerner at 06/19/2022 4:28 PM CDT documented in this encounter Plan of Treatment Not on file documented as of this encounter Visit Diagnoses Not on filedocumented in this encounter
--- OUTSIDE RECORDS SUMMARY | 2024-08-09 14:51 | XMS_ITS | Encounter Summary ---
Author Organization [employer] Address [address] [place] [address] Care Team Providers Care Library Media Specialist Name Role Phone Unavailable Primary Care Provider Unavailabl e Encounter Details Date Type Department Care Team (Late st Contact Info) Description 04/12/2019 Transcribed Document [facility] [place] Family Medicine [address] [place] [address] ProviderSharon MD [address] [place] [address] Social History Tobacco Use Types Packs/Day Years Used Date Smoking Tobacco: Never Assessed Sex and Gender Information Value Date Recorded Sex Assigned at Not on file Legal Sex Male 6:54 PM CDT Gender Identity Not on file Sexual Orientation Not on file documented as of this encounter Miscellaneous Notes * Cerner Conversion Note - Historical ProviderMD - 04/12/2019 2:27 PM PULL OUT OPERATOR Spiritual Care Short Form Entered On: 04/12/2019 15:58 EST Performed On: 04/12/2019 14:27 EST by CHRISTINE GUTHRIE General Information, Spiritual Care Spiritual Care Referred by : Powered Bridge Specialist initiated Reason for Visit : Initial Ministry Provided to : Patient Intervention/Comment/Summary Points : Provided pre-surgery visit and prayer. CHRISTINE GUTHRIE - 04/12/2019 15:57 EST documented in this encounter Plan of Treatment Not on file documented as of this encounter Visit Diagnoses Not on filedocumented in this encounter
--- OUTSIDE RECORDS SUMMARY | 2024-08-09 14:51 | XMS_ITS | Encounter Summary ---
Author Organization [employer] Address [address] [place] [address] Care Team Providers Care Corset Fitter Name Role Phone Unavailable Primary Care Provider Unavailabl e Encounter Details Date Type Department Care Team (Late st Contact Info) Description 04/12/2019 Transcribed Document [facility] [address] [place] [address] ProviderSharon MD [address] [place], [place] [address] Social History Tobacco Use Types Packs/Day Years Used Date Smoking Tobacco: Never Assessed Sex and Gender Information Value Date Recorded Sex Assigned at Not on file Legal Sex Male 6:54 PM CDT Gender Identity Not on file Sexual Orientation Not on file documented as of this encounter Miscellaneous Notes * Cerner Conversion Note - Sharon ProviderMD - 04/12/2019 12:02 PM GEAR NICKER On Going Discharge Planning Entered On: 04/12/2019 12:03 EST Performed On: 04/12/2019 12:02 EST by JUS MATAMOROS Rn-Call Center DirectorSupervisor Boiler Repair Progress Note Discharge Arrangements : Patient Post-Acute [...] Patient Meeting Medical Necessity : Yes JUS MATAMOORS Rn-Call Center Director - 04/12/2019 12:02 EST Narrative Progress Note Narrative Progress Note : Anticipate pt will d/c home with S.O. when stable; OLOP consult when ready for d/c. JUS MATAMOROS, Rn-Call Center Director - 04/12/2019 12:02 EST Electronically signed by Phil, [facility] Conversion Wildlife Forensic Geneticist Cerner at 06/19/2022 4:34 PM CDT documented in this encounter Plan of Treatment Not on file documented as of this encounter Visit Diagnoses Not on filedocumented in this encounter
--- OUTSIDE RECORDS SUMMARY | 2024-08-09 14:51 | XMS_ITS | Encounter Summary ---
Author Organization [employer] Address [address] [place] [address] Care Team Providers Care Applied Researcher Name Role Phone Unavailable Primary Care Provider Unavailabl e Encounter Details Date Type Department Care Team (Late st Contact Info) Description 04/12/2019 Transcribed Document [facility] [place] [address] [place] [address] ProviderSharon MD [address] [place] [address] Social History Tobacco Use Types Packs/Day Years Used Date Smoking Tobacco: Never Assessed Sex and Gender Information Value Date Recorded Sex Assigned at Not on file Legal Sex Male 6:54 PM CDT Gender Identity Not on file Sexual Orientation Not on file documented as of this encounter Miscellaneous Notes * Cerner Conversion Note - Historical ProviderMD - 04/12/2019 2:00 AM HOSPICE PHYSICIAN Software Integration Developer Details Entered On: 04/12/2019 8:08 EST Performed [...] MORRO GILLIAM RN - 04/12/2019 8:08 EST Electronically signed by Radha Villarreal Conversion Cigarette Machines Mechanic Cerner at 06/19/2022 4:40 PM CDT documented in this encounter Plan of Treatment Not on file documented as of this encounter Visit Diagnoses Not on filedocumented in this encounter
--- OUTSIDE RECORDS SUMMARY | 2024-08-09 14:51 | XMS_ITS | Encounter Summary ---
Author Organization [employer] Address [address] [place] [address] Care Team Providers Care Apparel Patternmaker Name Role Phone Unavailable Primary Care Provider Unavailabl e Encounter Details Date Type Department Care Team (Late st Contact Info) Description 04/15/2019 Transcribed Document [facility] [place] Medicine [address] [place] [address] ProviderSharon MD [address] [place], [place] [address] Social History Tobacco Use Types Packs/Day Years Used Date Smoking Tobacco: Never Assessed Sex and Gender Information Value Date Recorded Sex Assigned at Not on file Legal Sex Male 6:54 PM CDT Gender Identity Not on file Sexual Orientation Not on file documented as of this encounter Miscellaneous Notes * Cerner Conversion Note - Sharon Phillips MD - 04/15/2019 12:39 PM MENTAL HEALTH PROGRAM SPECIALIST Kev Melendez MD [address] [place] [id number] Re: RAUDEL ZEPEDA Date of Visit: 04/09/2019 [...] is strictly prohibited. Sincerely, JANICE BUCHANAN [address] [facility] [address] [place] [id number] The following document(s) were included in the letter: April 15, 2019 12:32:38 EST - (04/15/2019) Discharge Note Electronically signed by Radha Villarreal Conversion Assistant Farm Operations Manager Cerner at 06/19/2022 4:34 PM CDT documented in this encounter Plan of Treatment Not on file documented as of this encounter Visit Diagnoses Not on filedocumented in this encounter
--- OUTSIDE RECORDS SUMMARY | 2024-08-09 14:51 | XMS_ITS | Encounter Summary ---
Author Organization [employer] Address [address] [place] [address] Care Team Providers Care Lens Dotter Name Role Phone Unavailable Primary Care Provider Unavailabl e Encounter Details Date Type Department Care Team (Late st Contact Info) Description 04/14/2019 Transcribed Document [facility] [place] Family Medicine [address] [place] [address] ProviderSharon MD [address] [place], [place] [address] Social History Tobacco Use Types Packs/Day Years Used Date Smoking Tobacco: Never Assessed Sex and Gender Information Value Date Recorded Sex Assigned at Not on file Legal Sex Male 6:54 PM CDT Gender Identity Not on file Sexual Orientation Not on file documented as of this encounter Miscellaneous Notes * Cerner Conversion Note - Sharon ProviderMD - 04/14/2019 9:55 AM SLASHER Evaluation, Occupational Therapy Entered On: 04/14/2019 14:29 [...] also with h/o alcohol/tobaccoa abuse STACEY MURDOCK OTR/Kavin - 04/14/2019 14:18 EST General Status Patient [...] 5 Railing Outside : Yes STACEY MURDOCK OTR/Kavin - 04/14/2019 14:18 EST Prior LOF Bathing, [...] STACEY MURDOCK OTR/Kavin - 04/14/2019 14:18 EST Home Energy Consultant Supervisor Goals, OT Dressing, Lower Body LTG Grid [...]
--- OUTSIDE RECORDS SUMMARY | 2024-08-09 14:51 | XMS_ITS | Encounter Summary ---
Author Organization [employer] Address [address] [place] [address] Care Team Providers Care Mining Technician Name Role Phone Unavailable Primary Care Provider Unavailabl e Encounter Details Date Type Department Care Team (Late st Contact Info) Description 04/09/2019 Transcribed Document [facility] [place] [address] [place], [place] [id number] ProviderSharon MD [address] [place] [address] Social History Tobacco Use Types Packs/Day Years Used Date Smoking Tobacco: Never Assessed Sex and Gender Information Value Date Recorded Sex Assigned at Not on file Legal Sex Male 6:54 PM CDT Gender Identity Not on file Sexual Orientation Not on file documented as of this encounter Miscellaneous Notes * Cerner Conversion Note - Sharon Phillips MD - 04/09/2019 11:29 PM GROCERY CLERK CHECKING DATE OF ADMISSION: 04/09/2019 PRIMARY CARE PHYSICIAN: [...] difficulty breathing. The patient was transferred to [facility], on amiodarone drip. The patient came in, [...] was reviewed. Critical time spent, 55 minutes. /[id number] MD SARA Alvarez/BETTY / SARA / BETY Electronically signed by Phil, [facility] Conversion Lapel Stitcher Cerner at 06/19/2022 4:39 PM CDT documented in this encounter Plan of Treatment Not on file documented as of this encounter Visit Diagnoses Not on filedocumented in this encounter
--- OUTSIDE RECORDS SUMMARY | 2024-08-09 14:51 | XMS_ITS | Encounter Summary ---
Author Organization [employer] Address [address] [place] [address] Care Team Providers Care Boring Machine Operator Double End Name Role Phone Unavailable Primary Care Provider Unavailabl e Encounter Details Date Type Department Care Team (Late st Contact Info) Description 04/15/2019 Transcribed Document [facility] [place] Family Medicine [address] [place] [address] ProviderSharon MD [address] [place] [address] Social History Tobacco Use Types Packs/Day Years Used Date Smoking Tobacco: Never Assessed Sex and Gender Information Value Date Recorded Sex Assigned at Not on file Legal Sex Male 6:54 PM CDT Gender Identity Not on file Sexual Orientation Not on file documented as of this encounter Miscellaneous Notes * Cerner Conversion Note - Historical ProviderMD - 04/15/2019 3:30 PM LIBRARY MONITOR [facility] [place] [address] Visit Date/Time: 04/15/2019 15:30:49 DUANE RAUDEL The above patient was seen in the hospital today and needs to be excused from work/school until Return to Work/School Date: Mr. Richardson was in the hospital from 04/09/2019 to 04/15/2019. Advised to return to work in 1 week or after 04/22/2019. Electronically signed by [facility] Conversion Batteryman Cerner at 06/19/2022 4:37 PM CDT documented in this encounter Plan of Treatment Not on file documented as of this encounter Visit Diagnoses Not on filedocumented in this encounter
--- OUTSIDE RECORDS SUMMARY | 2024-08-09 14:51 | XMS_ITS | Encounter Summary ---
Author Organization [employer] Address [address] [place] [address] Care Team Providers Care Studio Control Operator Name Role Phone Unavailable Primary Care Provider Unavailabl e Encounter Details Date Type Department Care Team (Late st Contact Info) Description 04/09/2019 Transcribed Document [facility] [place] [address] [place] [address] ProviderSharon MD [address] [place] [address] Social History Tobacco Use Types Packs/Day Years Used Date Smoking Tobacco: Never Assessed Sex and Gender Information Value Date Recorded Sex Assigned at Not on file Legal Sex Male 6:54 PM CDT Gender Identity Not on file Sexual Orientation Not on file documented as of this encounter Miscellaneous Notes * Cerner Conversion Note - Sharon ProviderMD - 04/09/2019 7:55 PM EMERGENCY WORKER Patient: RAUDEL ZEPEDA Age: 54 years Sex: Male : 1965 Associated Diagnoses: None Author: IRVING HERMAN APRN Basic Information PCP: Senior Manager Asset Protection: Bisi Chief Complaint recurrent SVT History of Present Illness Mr. Zepeda is a 54-year-old male with past medical history of SVT which he reports having intermittently his entire life and has had an ablation in the past. He does not know who did his ablation although he is states he had it done here at [facility], however there are no available records of this procedure here. He reports having intermittent SVT for the last 2 months, for which he went to his primary care for 1 week ago. His primary care referred him back to Dr. Mathews who is his primary popcorn candy maker. When he arrived at Dr. Mathews's office [...] A call was then placed to our popcorn candy maker clinical practitioner who recommended amiodarone infusion and transfer for [...] Medical History: Active SVT - Supraventricular tachycardia ([id number]) Family History: No family history items have [...] of motion, Normal strength. Integumentary: Warm, Dry, [place], Intact. Neurologic: Alert, Oriented. Psychiatric: Cooperative, Appropriate [...]
--- OUTSIDE RECORDS SUMMARY | 2024-08-09 14:51 | XMS_ITS | Encounter Summary ---
Author Organization [email or web address] Address [address] [place] [address] Care Team Providers Care Macaroni Maker Name Role Phone Unavailable Primary Care Provider Unavailabl e Encounter Details Date Type Department Care Team (Late st Contact Info) Description 04/09/2019 Transcribed Document [facility] [place] Family Medicine [address] [place] [address] ProviderSharon MD [address] [place] [address] Social History Tobacco Use Types Packs/Day Years Used Date Smoking Tobacco: Never Assessed Sex and Gender Information Value Date Recorded Sex Assigned at Not on file Legal Sex Male 6:54 PM CDT Gender Identity Not on file Sexual Orientation Not on file documented as of this encounter Miscellaneous Notes * Cerner Conversion Note - Historical ProviderMD - 04/09/2019 7:11 PM FUEL BUYER Consult Phone Call Documentation Entered On: 04/10/2019 3:15 EST Performed On: 04/09/2019 19:11 EST by Luda Kay, RN Phone Call for Consults Consult Phone Call/Page Attempt : First call Date and Time Call Returned : 04/09/2019 19:00 EST Consult, Additional Information : GLAZIER STAINED GLASS came to see patient Luda Kay, RN - 04/10/2019 3:12 EST Electronically signed by Phil [facility] Conversion Financial Operations Analyst Cerner at 06/19/2022 4:40 PM CDT documented in this encounter Plan of Treatment Not on file documented as of this encounter Visit Diagnoses Not on filedocumented in this encounter
--- OUTSIDE RECORDS SUMMARY | 2024-08-09 14:51 | XMS_ITS | Encounter Summary ---
Author Organization [employer] Address [address] [place] [address] Care Team Providers Care Auto Finance Sales Rep Name Role Phone Unavailable Primary Care Provider Unavailabl e Encounter Details Date Type Department Care Team (Late st Contact Info) Description 04/19/2019 Transcribed Document [facility] [place] [address] [place] [address] ProviderSharon MD [address], [place] [address] Social History Tobacco Use Types Packs/Day Years Used Date Smoking Tobacco: Never Assessed Sex and Gender Information Value Date Recorded Sex Assigned at Not on file Legal Sex Male 6:54 PM CDT Gender Identity Not on file Sexual Orientation Not on file documented as of this encounter Miscellaneous Notes * Cerner Conversion Note - Sharon Phillips MD - 04/19/2019 9:27 AM AUTO PARTS COUNTER PERSON UM Authorization Entered On: 04/19/2019 9:27 EST Performed On: 04/19/2019 9:27 EST by DARBY ELIAS RN Primary Insurance Authorization Authorization and Policy Numbers : Insurance 1 Health Plan: [employer] FED Policy Number: [id number] Authorization Number: Insurance Primary Name : Hiren [id number] Authorization Status-Primary : Drg approved Reference Number-Primary : [id number] Number of Days Authorized-Primary : 9 Day(s) [...] submitted via Availity as pt has commercial [employer] plan, not Federal as listed. (Alonso Malik Mkt Green Hide Inspector-Utilization Mgt 04/10/2019 12:42) Comment 3: Clinicals paper faxed. (Alonso Malik Mkt Green Hide Inspector-Utilization Mgt 04/10/2019 12:32) DARBY ELIAS RN - 04/19/2019 9:27 EST Electronically signed by [facility] Conversion Buffing Line Set Up Worker Cerner at 06/19/2022 4:40 PM CDT documented in this encounter Plan of Treatment Not on file documented as of this encounter Visit Diagnoses Not on filedocumented in this encounter
--- OUTSIDE RECORDS SUMMARY | 2024-08-09 14:51 | XMS_ITS | Encounter Summary ---
Author Organization [employer] Address [address] [place] [address] Care Team Providers Care Press Operator Automatic Name Role Phone Unavailable Primary Care Provider Unavailabl e Encounter Details Date Type Department Care Team (Late st Contact Info) Description 04/15/2019 Transcribed Document [facility] [place] [address] [place] [address] ProviderSharon MD [address] [place] [address] Social History Tobacco Use Types Packs/Day Years Used Date Smoking Tobacco: Never Assessed Sex and Gender Information Value Date Recorded Sex Assigned at Not on file Legal Sex Male 6:54 PM CDT Gender Identity Not on file Sexual Orientation Not on file documented as of this encounter Miscellaneous Notes * Cerner Conversion Note - Historical ProviderMD - 04/15/2019 12:35 PM MUSIC MANAGER Behavioral Health Assessment Note Entered On: 04/15/2019 12:45 EST Performed On: 04/15/2019 12:35 EST by SHARON GUERRERO, HEAT TREAT FURNACE OPERATOR I-TRIAGE Behavioral Health Assessment Note Reason For Behavioral Health Assessment : Pt is a 54 year old male who presented to [facility] for heart concerns. Pt denies current or [...] Departure, General Discharge : Unknown SHARON GUERRERO, HEAT TREAT FURNACE OPERATOR I-TRIAGE - 04/15/2019 12:35 EST Social History (As Of: 04/15/2019 12:45:41 EST) documented in this encounter Plan of Treatment Not on file documented as of this encounter Visit Diagnoses Not on filedocumented in this encounter
--- OUTSIDE RECORDS SUMMARY | 2024-08-09 14:51 | XMS_ITS | Encounter Summary ---
Author Organization [employer] Address [address] [place] [address] Care Team Providers Care Electrical Maintenance Supervisor Name Role Phone Unavailable Primary Care Provider Unavailabl e Encounter Details Date Type Department Care Team (Late st Contact Info) Description 04/12/2019 Transcribed Document [facility] [place] [address] [place] [address] ProviderSharon MD [address], [place] [address] Social History Tobacco Use Types Packs/Day Years Used Date Smoking Tobacco: Never Assessed Sex and Gender Information Value Date Recorded Sex Assigned at Not on file Legal Sex Male 6:54 PM CDT Gender Identity Not on file Sexual Orientation Not on file documented as of this encounter Miscellaneous Notes * Cerner Conversion Note - Historical ProviderMD - 04/12/2019 12:34 PM MOTION PICTURE CAMERA OPERATOR Event Note Entered On: 04/12/2019 12:36 EST [...]
--- OUTSIDE RECORDS SUMMARY | 2024-08-09 14:51 | XMS_ITS | Encounter Summary ---
Author Organization [employer] Address [address] [place] [address] Care Team Providers Care Face And Fill Packer Name Role Phone Unavailable Primary Care Provider Unavailabl e Encounter Details Date Type Department Care Team (Late st Contact Info) Description 04/13/2019 Transcribed Document [facility] [place] [address] [place] [address] ProviderSharon MD [facility] [place], [place] [address] Social History Tobacco Use Types Packs/Day Years Used Date Smoking Tobacco: Never Assessed Sex and Gender Information Value Date Recorded Sex Assigned at Not on file Legal Sex Male 6:54 PM CDT Gender Identity Not on file Sexual Orientation Not on file documented as of this encounter Miscellaneous Notes * Cerner Conversion Note - Sharon ProviderMD - 04/13/2019 1:59 PM PROCESSING SUPERVISOR On Going Discharge Planning Entered On: 04/13/2019 14:01 EST Performed On: 04/13/2019 13:59 EST by JUS MATAMOROS Rn-Squadron WorkerOnline Journalist Progress Note Discharge Arrangements : Patient Post-Acute [...] Meeting Medical Necessity : Yes JUS MATAMOROS, Rn-Squadron Worker - 04/13/2019 13:59 EST Narrative Progress Note Narrative Progress Note : Day 4 - Heparin gtt; Dexa gtt; pt off the unit for ablation; anticipate d/c home with S.O. when stable; OLOP consult on d/c. Historical Progress Note : Anticipate pt will d/c home with S.O. when stable; OLOP consult when ready for d/c. JUS MATAMOROS Rn-Squadron Worker - 04/12/19 12:03:20 JUS MATAMOROS Rn-Squadron Worker - 04/13/2019 13:59 EST documented in this encounter Plan of Treatment Not on file documented as of this encounter Visit Diagnoses Not on filedocumented in this encounter
--- OUTSIDE RECORDS SUMMARY | 2024-08-09 14:51 | XMS_ITS | Encounter Summary ---
Author Organization [employer] Address [address] [place] [address] Care Team Providers Care Coutierier Name Role Phone Unavailable Primary Care Provider Unavailabl e Encounter Details Date Type Department Care Team (Late st Contact Info) Description 04/15/2019 Transcribed Document [facility] [place] Family Medicine [address] [place] [address] ProviderSharon MD [facility] [place] [address] Social History Tobacco Use Types Packs/Day Years Used Date Smoking Tobacco: Never Assessed Sex and Gender Information Value Date Recorded Sex Assigned at Not on file Legal Sex Male 6:54 PM CDT Gender Identity Not on file Sexual Orientation Not on file documented as of this encounter Miscellaneous Notes * Cerner Conversion Note - Sharon Phillips MD - 04/15/2019 11:07 AM COMPUTER SCIENCES PROFESSOR Patient: RAUDEL ZEPEDA Age: 54 years Sex: [...] All Problems Alcohol abuse / SNOMED CT 53766975 / Confirmed Anxiety / SNOMED CT 13006722 / Confirmed History of obstructive sleep apnea / IMO 99592874 / Confirmed Hypertension / SNOMED CT 7319571890 / Confirmed Hypothyroid / SNOMED CT 50329243 / Confirmed Smoker / SNOMED CT 759502895 / Confirmed SVT - Supraventricular tachycardia / SNOMED CT 9984902679 / Confirmed, Active Problems (7) Alcohol abuse [...] of motion, Normal strength. Integumentary: Warm, Dry, [place], Intact. Neurologic: Alert, Oriented. Psychiatric: Cooperative, Appropriate [...] 55 yo male followed by Dr. Mathews [id number] 1 of at least one echo pending [...] with EPS/ablation this afternoon. 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
--- OUTSIDE RECORDS SUMMARY | 2024-08-09 14:51 | XMS_ITS | Encounter Summary ---
Author Organization [employer] Address [address] [place] [address] Care Team Providers Care Contract Coordinator Name Role Phone Unavailable Primary Care Provider Unavailabl e Encounter Details Date Type Department Care Team (Late st Contact Info) Description 04/12/2019 Transcribed Document [facility] [place] [address] [place] [address] ProviderSharon MD [address] [place] [address] Social History Tobacco Use Types Packs/Day Years Used Date Smoking Tobacco: Never Assessed Sex and Gender Information Value Date Recorded Sex Assigned at Not on file Legal Sex Male 6:54 PM CDT Gender Identity Not on file Sexual Orientation Not on file documented as of this encounter Miscellaneous Notes * Cerner Conversion Note - Sharon Phillips MD - 04/12/2019 8:00 AM MARKET RESEARCH CONSULTANT Patient: RAUDEL ZEPEDA Age: 54 years Sex: [...] influenza virus vaccine, inactivated: 0.5 mL, IntraMuscular, [id number] Documented Medications Documented Metoprolol Tartrate 100 mg [...] All Problems Alcohol abuse / SNOMED CT 39620525 / Confirmed Anxiety / SNOMED CT 29421554 / Confirmed History of obstructive sleep apnea / IMO 39739673 / Confirmed Hypertension / SNOMED CT 9139673884 / Confirmed Hypothyroid / SNOMED CT 00482324 / Confirmed Smoker / SNOMED CT 446056346 / Confirmed SVT - Supraventricular tachycardia / SNOMED CT 8484547705 / Confirmed, Active Problems (7) Alcohol abuse [...] Normal range of motion. Integumentary: Warm, Dry, [place]. Neurologic: Alert, Oriented, has some tremors. Psychiatric: Cooperative, Appropriate mood & affect. Results Review Telemetry cardiac monitor personally reviewed shows NSR over the last 24 hours The EKG shows sinus rhythm with preexcitation APR 12 04:33 L 132 L 99 7 / 90 4.1 31 0.80 \ APR 12 04:33 \ L 12.1 / 6.5 199 / L 36.5 \ No Radiology Results Found Impression and Plan IMPRESSION: 55 yo male followed by Dr. Mathews [id number] 1 of at least one echo pending [...]
--- OUTSIDE RECORDS SUMMARY | 2024-08-09 14:51 | XMS_ITS | Encounter Summary ---
Author Organization [employer] Address [address] [place] [address] Care Team Providers Care Family Coach Name Role Phone Unavailable Primary Care Provider Unavailabl e Encounter Details Date Type Department Care Team (Late st Contact Info) Description 04/12/2019 Transcribed Document [facility] [place] [address] [place] [address] ProviderSharon MD [address], [place] [address] Social History Tobacco Use Types Packs/Day Years Used Date Smoking Tobacco: Never Assessed Sex and Gender Information Value Date Recorded Sex Assigned at Not on file Legal Sex Male 6:54 PM CDT Gender Identity Not on file Sexual Orientation Not on file documented as of this encounter Miscellaneous Notes * Cerner Conversion Note - Sharon ProviderMD - 04/12/2019 8:17 AM INSPECTOR PENETRANT UM Authorization Entered On: 04/12/2019 8:23 EST Performed On: 04/12/2019 8:17 EST by DARBY ELIAS RN Primary Insurance Authorization Authorization and Policy Numbers : Insurance 1 Health Plan: [employer] FED Policy Number: [id number] Authorization Number: Insurance Primary Name : Hiren [id number] Authorization Status-Primary : Drg approved Reference Number-Primary : [id number] Number of Days Authorized-Primary : 9 Day(s) Authorized Service Begin Date-Primary : 04/09/2019 EST Authorized Service End Date-Primary : 04/18/2019 EST Authorization Comments-Primary : Per Availity, IP admit approved DRG NRD 04/19/2019. Historical Authorization Comments-Primary : Comment 1: Inpt auth requested and clinicals submitted via Availity as pt has commercial [place] plan, not Federal as listed. (Alonso Malik, Herrerat Hand Splitter-Utilization Mgt 04/10/2019 12:42) Comment 2: Clinicals paper faxed. (Alonso Malik Mkt Hand Splitter-Utilization Mgt 04/10/2019 12:32) DARBY ELIAS RN - 04/12/2019 8:17 EST documented in this encounter Plan of Treatment Not on file documented as of this encounter Visit Diagnoses Not on filedocumented in this encounter
--- OUTSIDE RECORDS SUMMARY | 2024-08-09 14:51 | XMS_ITS | Encounter Summary ---
Author Organization [facility] Address [address] [place] [address] Care Team Providers Care Positive Printer Operator Name Role Phone Casey Felix MD Primary Care Provider [phone] Dotty Askew MD Unavailable [phone] Encounter Details Date Type Department Care Team (Late st Contact Info) Description 07/14/2024 Telephone [facility] [address], [address] [place] [address] [place] [address] Social History Tobacco Use Types Packs/Day Years [...] Never 05/13/2024 How often do you attend mandaen or adventism serv ices? Never 05/13/2024 Do you belong to any clubs o r organizations such as mandaen groups, unions, fraternal or athletic groups, or [...] and heating? Patient unable to answer 05/13/2024 [facility] - Occupational [...] place to sleep or slept in a retirement (including now)? No 12/09/2023 Housing Stability Vital Sign Answer Myron e Recorded In the last 12 months, was t here a time when you were not able to pay the mortgage or rent on time? No 05/13/2024 Number of Times Moved in the Last Year Not on fi le 05/13/2024 At any time in the past 12 [facility], were you homeless or living in a retirement (including now)? No 05/13/2024 CAGE ASSESSMENT Answer [...] drink first t olivia in the morning (EYE-MEMBERSHIP SOLICITOR) to steady your nerves or to get [...] Clinic, left VM with call back number [phone]. documented in this encounter Plan of Treatment Upcoming Encounters Date Type Department Care Team (Late st Contact Info) Description 09/02/2024 10:40 AM EDT Office Visit [facility] [address] [place] [address] Jakub Malave MD [address] [place] [id number] documented as of this encounter Visit Diagnoses Not on filedocumented in this encounter Additional Health Concerns Assessment Noted Time A fall risk assessment has been complete d for the patient 09/05/2020 11:56 AM EDT A Body Mass Index follow-up plan has been documented for the patient 06/01/2024 11:16 AM EDT documented as of this encounter Care Teams Positive Printer Operator Relationship Specialty Start Date End Date Casey Felix MD [address] [place] [address] PCP - General 09/05/20 Dotty Askew MD [address] [place] [address] Consulting Physician Pediatric Cardiology 09/05/20 documented as of this encounter
--- OUTSIDE RECORDS SUMMARY | 2024-08-09 14:51 | XMS_ITS | Encounter Summary ---
Author Organization [employer] [facility] Address [address] [place] [address] Care Team Providers Care Welding Machine Feeder Name Role Phone Unavailable Primary Care Provider Unavailabl e Encounter Details Date Type Department Care Team (Late st Contact Info) Description 04/15/2019 Transcribed Document [facility] [place] [address] [place] [address] ProviderSharon MD [address] [place] [address] Social History Tobacco Use Types Packs/Day Years Used Date Smoking Tobacco: Never Assessed Sex and Gender Information Value Date Recorded Sex Assigned at Not on file Legal Sex Male 6:54 PM CDT Gender Identity Not on file Sexual Orientation Not on file documented as of this encounter Miscellaneous Notes * Cerner Conversion Note - Historical ProviderMD - 04/15/2019 5:00 AM MICROFILM EQUIPMENT INSPECTOR Chart Check - Review Order Profile Entered On: 04/15/2019 6:16 EST Performed On: 04/15/2019 5:00 EST by YEIMY CASTRO RN Chart Check Powerplans Initiated/Discontinued as Appropriate : Yes All Active Orders Reviewed : Yes YEIMY CASTRO RN - 04/15/2019 6:16 EST Electronically signed by [facility] Conversion Twx Operator Cerner at 06/19/2022 4:37 PM CDT documented in this encounter Plan of Treatment Not on file documented as of this encounter Visit Diagnoses Not on filedocumented in this encounter
--- OUTSIDE RECORDS SUMMARY | 2024-08-09 14:51 | XMS_ITS | Clinical Summary ---
Author Organization [employer] [facility] Address [address] [place] [address] Care Team Providers Care Living Specialist Name Role Phone Unavailable Primary Care [...]
--- OUTSIDE RECORDS SUMMARY | 2024-08-09 14:51 | XMS_ITS | Encounter Summary ---
Author Organization [employer] [facility] Address [address] [place] [address] Care Team Providers Care Hospitality Ambassador Name Role Phone Unavailable Primary Care Provider Unavailabl e Encounter Details Date Type Department Care Team (Late st Contact Info) Description 04/14/2019 Transcribed Document [facility] [place] [address] [place] [address] ProviderSharon MD [address] [place] [address] Social History Tobacco Use Types Packs/Day Years Used Date Smoking Tobacco: Never Assessed Sex and Gender Information Value Date Recorded Sex Assigned at Not on file Legal Sex Male 6:54 PM CDT Gender Identity Not on file Sexual Orientation Not on file documented as of this encounter Miscellaneous Notes * Cerner Conversion Note - Historical ProviderMD - 04/14/2019 6:14 AM WEBSITE/BLOG EDITOR Height and Weight, Routine Entered On: 04/14/2019 6:14 EST Performed On: 04/14/2019 6:14 EST by MORRO GILLIAM RN Height and Weight, Routine Routine Weight Source : Bed scale Routine Weight Entry Format : Metric Routine Weight, Kilograms : 106 kg(Converted to: 233 lb 11 oz) Routine Weight Calculation : 106 kg Height Source : Stated Height Entry Format : Hemet Height, Feet : 6 ft Height, Inches : 1 Inch Clinical Height : 185.42 cm Body Surface Area (BSA), Routine : 2.3 m2 Body Mass Index (BMI), Routine : 30.83 kg/m2 MORRO GILLIAM RN - 04/14/2019 6:14 EST documented in this encounter Plan of Treatment Not on file documented as of this encounter Visit Diagnoses Not on filedocumented in this encounter
--- OUTSIDE RECORDS SUMMARY | 2024-08-09 14:51 | XMS_ITS | Encounter Summary ---
Author Organization [employer] [facility] Address [address] [place] [address] Care Team Providers Care Nurses' Association Executive Director Name Role Phone Unavailable Primary Care Provider Unavailhelen e Encounter Details Date Type Department Care Team (Late st Contact Info) Description 04/12/2019 Transcribed Document [facility] [place] [address] [place] [address] ProviderSharon MD [address] [place], [place] [id number] Social History Tobacco Use Types Packs/Day Years Used Date Smoking Tobacco: Never Assessed Sex and Gender Information Value Date Recorded Sex Assigned at Not on file Legal Sex Male 6:54 PM CDT Gender Identity Not on file Sexual Orientation Not on file documented as of this encounter Miscellaneous Notes * Cerner Conversion Note - Historical ProviderMD - 04/12/2019 4:49 PM MILL RECORDER Patient: RAUDEL ZEPEDA Age: 54 years Sex: [...] influenza virus vaccine, inactivated: 0.5 mL, IntraMuscular, [id number] Documented Medications Documented Metoprolol Tartrate 100 mg [...] History of obstructive sleep apnea / IMO [id number] / Confirmed SVT - Supraventricular tachycardia / SNOMED CT [id number] / Confirmed, Active Problems (7) Alcohol abuse [...] deterioration hr better cct 35mins gaurav rn Electronically signed by Radha Villarreal Conversion Internal Affairs Investigator Cerner at 06/19/2022 4:29 PM CDT documented in this encounter Plan of Treatment Not on file documented as of this encounter Visit Diagnoses Not on filedocumented in this encounter
--- OUTSIDE RECORDS SUMMARY | 2024-08-09 14:51 | XMS_ITS | Encounter Summary ---
Author Organization [employer] Address [address] [place] [address] Care Team Providers Care Butter Melter Name Role Phone Unavailable Primary Care Provider Unavailabl e Encounter Details Date Type Department Care Team (Late st Contact Info) Description 04/15/2019 Transcribed Document [facility] [place] [address] [place] [address] ProviderSharon MD [address] [place] [address] Social History Tobacco Use Types Packs/Day Years Used Date Smoking Tobacco: Never Assessed Sex and Gender Information Value Date Recorded Sex Assigned at Not on file Legal Sex Male 6:54 PM CDT Gender Identity Not on file Sexual Orientation Not on file documented as of this encounter Miscellaneous Notes * Cerner Conversion Note - Sharon Phillips MD - 04/15/2019 2:47 PM MECHANICAL ENGINEERING SPECIALIST [facility] [place], [place] [id number] ZEPEDA RAUDEL :1965 Visit Time:04/09/2019 Your Visit Summary Your Care Team Admitting Physician - MARLEY BERRIOS MD Attending Physician - MARLEY BERRIOS MD Primary Care Physician - MARÍA, NOT LISTED Your Diagnosis SVT (supraventricular tachycardia) [...] When 05/19/2019 09:45 AM EDT Where: [address] [place] [address]- Business (1) Follow Up with BEN FINLEY When 05/17/2019 11:30 AM EDT Where: [address] [place] [address]- Business (1) Follow Up with [facility] When Within 1 week Comments Please call in AM and make a 1 week hospital follow-up appointment. Where: [facility] [place] [address]- Medications What How Much When Instructions Next [...] 08/24/2003 Document Revised: 09/06/2016 Document Reviewed: 07/23/2016 TrumpIT Interactive Patient Education ?? 2019 [employer] Inc. How to Take Your Blood Pressure [...] monitor. You can buy one at a [employer] or online. When choosing one: ??? Choose [...] 01/30/2009 Document Revised: 01/15/2017 Document Reviewed: 07/26/2016 [employer] Interactive Patient Education ?? 2019 [employer]. Heart-Healthy Eating Plan Many factors influence your [...] foods can I eat? Grains Breads, including Barbadian, white, nanci, wheat, raisin, rye, oatmeal, and Tajik. Tortillas that are neither fried nor made with lard or trans fat. Low-fat rolls, including hotdog and hamburger buns and Vietnamese muffins. Biscuits. Muffins. Waffles. Pancakes. Light popcorn. [...] cooking, baking, salads, and as spreads. Other Crystal powder. Coffee and tea. All seasonings and [...] cheese. Whole milk cheeses, including blue (john), [place] Dayron, Brie, Omar, Samoan, Havarti, Citizen Of [place], cheddar, Camembert, and Frankfort. Whole or 2% milk that is liquid, [...] that has suet, meat fat, or shortening. Crystal butter, hydrogenated oils, palm oil, coconut oil, [...] 11/26/2008 Document Revised: 09/06/2016 Document Reviewed: 08/11/2014 TrumpIT Interactive Patient Education ?? 2019 [employer]. Electrical Cardioversion Electrical cardioversion is the delivery [...] including vitamins, herbs, eye drops, creams, and dgro-bya-fxxcluv medicines. ??? Any problems you or family [...] 02/07/2003 Document Revised: 10/16/2016 Document Reviewed: 08/23/2016 TrumpIT Interactive Patient Education ?? 2017 [employer] Inc. Supraventricular Tachycardia, Adult Supraventricular tachycardia (SVT) [...] as told by your doctor. ??? Take sgzb-zyu-aeyeiej and prescription medicines only as told by [...] 02/17/2006 Document Revised: 10/24/2016 Document Reviewed: 10/24/2016 TrumpIT Interactive Patient Education ?? 2019 [employer]. losartan (jn Morillo What is the most [...] may report side effects to FDA at 5-886-QUP-2803. What other drugs will affect losartan? Tell your doctor about all your other medicines, especially: ?? a diuretic or 'water pill'; ?? other blood pressure medications; ?? lithium; or ?? NSAIDs (nonsteroidal anti-inflammatory drugs)--aspirin, ibuprofen (Advil, Motrin), naproxen (Aleve), celecoxib, diclofenac, indomethacin, meloxicam, and others. This list is not complete. Other drugs may affect losartan, including prescription and dmja-xgd-lyvkoot medicines, vitamins, and herbal products. Not all [...] to ensure that the information provided by [employer]. ('Multum') is accurate, up-to-date, and complete, but no guarantee is made to that effect. Drug information contained herein may be time sensitive. DocDoc information has been compiled for use by healthcare practitioners and consumers in the [place] and therefore DocDoc does not warrant that uses outside of the [place] are appropriate, unless specifically indicated otherwise. DocDoc's drug information does not endorse drugs, diagnose patients or recommend therapy. [facility]'s drug information is an informational resource designed [...] effective or appropriate for any given patient. [facility] does not assume any responsibility for any aspect of healthcare administered with the aid of information [facility] provides. The information contained herein is not intended to cover all possible uses, directions, precautions, warnings, drug interactions, allergic reactions, or adverse effects. If you have questions about the drugs you are taking, check with your doctor, nurse or pharmacist. Copyright 1135-8401 [facility] [employer]ba [employer]. Version: 16.. Revision Date: 06/10/2018. oxazepam (ox A ze idpika) Serax What is the most important information I should know about oxazepam? Never use oxazepam in larger amounts, or for longer than prescribed. What is oxazepam? Oxazepam is a benzodiazepine (avd-sga-gmv-AZE-eh-peen). Oxazepam affects chemicals in the brain that [...] may report side effects to FDA at 7-529-NMQ-4959. What other drugs will affect oxazepam? Taking oxazepam with other drugs that make you sleepy or slow your breathing can cause dangerous side effects or . Ask your doctor before taking a sleeping pill, narcotic pain medicine, prescription cough medicine, a muscle relaxer, or medicine for anxiety, depression, or seizures. Other drugs may interact with oxazepam, including prescription and kvkm-ywe-kiizgsm medicines, vitamins, and herbal products. Tell each [...] to ensure that the information provided by [employer]. ('Multum') is accurate, up-to-date, and complete, but no guarantee is made to that effect. Drug information contained herein may be time sensitive. DocDoc information has been compiled for use by healthcare practitioners and consumers in the [place] and therefore DocDoc does not warrant that uses outside of the [place] are appropriate, unless specifically indicated otherwise. [employer] drug information does not endorse drugs, diagnose patients or recommend therapy. [employer] drug information is an informational resource designed [...] effective or appropriate for any given patient. DocDoc does not assume any responsibility for any aspect of healthcare administered with the aid of information DocDoc provides. The information contained herein is not intended to cover all possible uses, directions, precautions, warnings, drug interactions, allergic reactions, or adverse effects. If you have questions about the drugs you are taking, check with your doctor, nurse or pharmacist. Copyright 1601-2535 [employer]. Version: 7.03. Revision Date: 11/29/2015. nicotine (transdermal) [...] may report side effects to FDA at 2-135-YQL-3739. What other drugs will affect nicotine? Other drugs may affect nicotine transdermal, including prescription and ppkv-zgp-omnatxf medicines, vitamins, and herbal products. Tell your [...] to ensure that the information provided by [employer]. ('Multum') is accurate, up-to-date, and complete, but no guarantee is made to that effect. Drug information contained herein may be time sensitive. DocDoc information has been compiled for use by healthcare practitioners and consumers in the [place] and therefore DocDoc does not warrant that uses outside of the [place] are appropriate, unless specifically indicated otherwise. [employer] drug information does not endorse drugs, diagnose patients or recommend therapy. [employer] drug information is an informational resource designed [...] effective or appropriate for any given patient. DocDoc does not assume any responsibility for any aspect of healthcare administered with the aid of information DocDoc provides. The information contained herein is not intended to cover all possible uses, directions, precautions, warnings, drug interactions, allergic reactions, or adverse effects. If you have questions about the drugs you are taking, check with your doctor, nurse or pharmacist. Copyright 0369-9507 [employer]. Version: 3.01. Revision Date: 10/08/2018. acetaminophen and [...] may report side effects to FDA at 5-773-WLY-2914. What other drugs will affect acetaminophen and [...] affect acetaminophen and oxycodone, including prescription and gxju-llt-fzbdqrb medicines, vitamins, and herbal products. Not all [...]
--- OUTSIDE RECORDS SUMMARY | 2024-08-09 14:51 | XMS_ITS | Encounter Summary ---
Author Organization [employer] Address [address] [place] [address] Care Team Providers Care Salt Operator Name Role Phone Unavailable Primary Care Provider Unavailabl e Encounter Details Date Type Department Care Team (Late st Contact Info) Description 04/13/2019 Transcribed Document [facility] [place] Medicine [address] [place] [address] ProviderSharon MD [address] [place] [address] Social History Tobacco Use Types Packs/Day Years Used Date Smoking Tobacco: Never Assessed Sex and Gender Information Value Date Recorded Sex Assigned at Not on file Legal Sex Male 6:54 PM CDT Gender Identity Not on file Sexual Orientation Not on file documented as of this encounter Miscellaneous Notes * Cerner Conversion Note - Historical ProviderMD - 04/13/2019 2:00 AM BODY BUMPER Talent Acquisition Assistant Details Entered On: 04/13/2019 1:05 EST Performed [...]
--- OUTSIDE RECORDS SUMMARY | 2024-08-09 14:51 | XMS_ITS | Encounter Summary ---
Author Organization [employer] Address [address] [place] [address] Care Team Providers Care Side Boss Name Role Phone Unavailable Primary Care Provider Unavailabl e Encounter Details Date Type Department Care Team (Late st Contact Info) Description 04/11/2019 Transcribed Document [facility] Radiology [address] [place] [address] Jerrell Kamara MD [address] [place] [address] Social History Tobacco Use Types Packs/Day Years [...] influenza virus vaccine, inactivated: 0.5 mL, IntraMuscular, [id number] labetalol: 20 mg, IV Push, Q1H, PRN: [...] of motion, Normal strength. Integumentary: Warm, Dry, [place], Intact. Neurologic: Alert, Oriented. Psychiatric: Cooperative, Appropriate mood & affect. Results Review Telemetry Admission Weight Todays Weight APR 11 03:58 L 133 L 97 8 / 101 3.5 H 33 0.90 \ Cardiac Markers (Current Encounter/Past 24 Hours) CK MB <1.00 ng/mL 04/10/2019 05:45 Radiology Results (Last 48 hours) [id number] -- 04/09/2019 18:47 CR Chest 1 Vw [...]
--- OUTSIDE RECORDS SUMMARY | 2024-08-09 14:51 | XMS_ITS | Encounter Summary ---
Author Organization [employer] Address [address] [place] [address] Care Team Providers Care Chief Clerk Shelter Name Role Phone Unavailable Primary Care Provider Unavailabl e Encounter Details Date Type Department Care Team (Late st Contact Info) Description 04/15/2019 Transcribed Document [facility] [place] Medicine [address] [place] [address] ProviderSharon MD [address] [place] [address] Social History Tobacco Use Types Packs/Day Years Used Date Smoking Tobacco: Never Assessed Sex and Gender Information Value Date Recorded Sex Assigned at Not on file Legal Sex Male 6:54 PM CDT Gender Identity Not on file Sexual Orientation Not on file documented as of this encounter Miscellaneous Notes * Cerner Conversion Note - Historical ProviderMD - 04/15/2019 10:17 AM FUR SEWER Attempt to Treat, PT Entered On: 04/15/2019 12:45 EST Performed On: 04/15/2019 10:17 EST by SCOTT BILLINGS PTA Attempt to Treat Unable to Treat Due To : Patient Refusal Inability to Treat Comment : pt refused due to wanting to take a shower first, will try back as time permits Notification : SCOTT Valdivia PTA - 04/15/2019 12:44 EST Electronically signed by [facility] Conversion Cylinder Press Operator Cerner at 06/19/2022 4:41 PM CDT documented in this encounter Plan of Treatment Not on file documented as of this encounter Visit Diagnoses Not on filedocumented in this encounter
--- OUTSIDE RECORDS SUMMARY | 2024-08-09 14:51 | XMS_ITS | Encounter Summary ---
Author Organization [employer] Address [address] [place] [address] Care Team Providers Care Housing Quality Standard Inspector Name Role Phone Unavailable Primary Care Provider Unavailabl e Encounter Details Date Type Department Care Team (Late st Contact Info) Description 04/11/2019 Transcribed Document [facility] [place] Family Medicine [address] [place] [address] ProviderSharon MD [address] [place] [address] Social History Tobacco Use Types Packs/Day Years Used Date Smoking Tobacco: Never Assessed Sex and Gender Information Value Date Recorded Sex Assigned at Not on file Legal Sex Male 6:54 PM CDT Gender Identity Not on file Sexual Orientation Not on file documented as of this encounter Miscellaneous Notes * Cerner Conversion Note - Historical ProviderMD - 04/11/2019 10:19 AM SERVICE PARTS DRIVER Pain Assessment Entered On: 04/15/2019 1:49 EST [...]
--- OUTSIDE RECORDS SUMMARY | 2024-08-09 14:51 | XMS_ITS | Encounter Summary ---
Author Organization [employer] Address [address] [place] [address] Care Team Providers Care Tennis Director Name Role Phone Unavailable Primary Care Provider Unavailabl e Encounter Details Date Type Department Care Team (Late st Contact Info) Description 04/09/2019 Transcribed Document [facility] [place] [address] [place] [address] ProviderSharon MD [address] [place] [address] Social History Tobacco Use Types Packs/Day Years Used Date Smoking Tobacco: Never Assessed Sex and Gender Information Value Date Recorded Sex Assigned at Not on file Legal Sex Male 6:54 PM CDT Gender Identity Not on file Sexual Orientation Not on file documented as of this encounter Miscellaneous Notes * Cerner Conversion Note - Historical ProviderMD - 04/09/2019 7:14 PM CDA TEACHER Pain Assessment Entered On: 04/12/2019 8:07 EST [...]
--- OUTSIDE RECORDS SUMMARY | 2024-08-09 14:52 | XMS_ITS | Encounter Summary ---
Author Organization [employer] Address [address] [place] [address] Care Team Providers Care Sandblaster Supervisor Name Role Phone Unavailable Primary Care Provider Unavailabl e Encounter Details Date Type Department Care Team (Late st Contact Info) Description 04/10/2019 Transcribed Document [facility] Family Medicine [address] [place] [address] ProviderSharon MD [facility] [place] [address] Social History Tobacco Use Types Packs/Day Years Used Date Smoking Tobacco: Never Assessed Sex and Gender Information Value Date Recorded Sex Assigned at Not on file Legal Sex Male 6:54 PM CDT Gender Identity Not on file Sexual Orientation Not on file documented as of this encounter Miscellaneous Notes * Cerner Conversion Note - Sharon Phillips MD - 04/10/2019 10:12 AM GEAR CHANGER Patient: RAUDEL ZEPEDA Age: 54 years Sex: Male : 1965 Associated Diagnoses: None Author: SHILO MONTES DE OCA MD-CAR Basic Information PCP: Forklift Wheel Loader: Chief Complaint 04/09/2019 18:45 EST Admission from [facility] with SVT History of Present Illness The [...] resistant so he was sent to the [facility] where he is was found to [...] influenza virus vaccine, inactivated: 0.5 mL, IntraMuscular, [id number] labetalol: 20 mg, IV Push, Q1H, PRN: [...] Daily influenza vaccine, quadrivalent 0.5 mL, IntraMuscular, [id number] levothyroxine 75 mcg tab 75 mcg 1 [...] SVT - Supraventricular tachycardia / SNOMED CT [id number] / Confirmed History of obstructive sleep apnea / IMO [id number] / Confirmed, Active Problems (7) Alcohol abuse Anxiety History of obstructive sleep apnea Hypertension Hypothyroid Smoker SVT - Supraventricular tachycardia Histories No education data available. Social & Psychosocial Habits alcohol consumption and ongoing withdraw Past Medical History: Active SVT - Supraventricular tachycardia ([id number]) Family History: No family history items have [...] Blood Pressure 90 mmHg [facility] Temperature Source Oral Temperature Mode Fahrenheit Temperature, Fahrenheit 97.9 Deg F Clinical Temperature, C 36.6 Deg C Heart Rate Monitored 65 bpm Respiratory Rate 24 Breaths/Min HI Oxygen Saturation 95 % Oxygen Therapy Mode Nasal cannula Oxygen Flow Rate 2 Liter/Min 04/10/2019 5:00 EST Systolic Blood Pressure 116 mmHg Diastolic Blood Pressure 75 mmHg [facility] Heart Rate Monitored 97 bpm Respiratory [...] 23:36 EST Heart Rate, Apical 184 bpm MI 04/09/2019 23:00 EST Systolic Blood Pressure 119 [...] EST Height Source Stated Height Entry Format [place] Height/Length, SAMMARIN[place] (ft) 6 ft Height/Length SAMMARINESE 1 Inch CLINICALHEIGHT 185.42 cm [place] Body Weight 79 kg Weight Source Bed scale Weight Entry Format Metric, kilograms Weight METRIC kg 111.9 kg CLINICALWEIGHT 111.9 kg Body Surface Area (BSA) 2.35 m2 Body Mass Index 32.5 kg/m2 MI 04/09/2019 18:45 EST Height Source Stated Height Entry Format [place] Height/Length, SAMMAR[place] (ft) 6 ft Height/Length SAM[place] 1 Inch CLINICALHEIGHT 185.42 cm [place] Body Weight 79 kg Weight Source Bed scale Weight Entry Format Metric, kilograms Weight METRIC kg 111.9 kg CLINICALWEIGHT 111.9 kg Body Surface Area (BSA) 2.35 m2 Body Mass Index 32.5 kg/m2 MI , Vitals Signs (last 24 hrs) Last [...] Normal range of motion. Integumentary: Warm, Dry, [place]. Neurologic: Alert, Oriented, has some tremors. Psychiatric: [...] 24 Hours) Radiology Results (Last 48 hours) [id number] -- 04/09/2019 18:47 CR Chest 1 Vw [...] 55 yo male followed by Dr. Mathews [id number] 1 of at least one echo pending [...] difficult to control Consider aggressive potassium replacement documented in this encounter Plan of Treatment Not on file documented as of this encounter Visit Diagnoses Not on filedocumented in this encounter
--- NOTE | 2024-08-09 15:39 | PC.NURSE ---
Patient alert and oriented to self, place, and situation despite mild hallucinations. No prn medication needed for ciwa scores. VS stable and patient remained on 2LNC. Patient able to sit in chair for an hour before wanting to go back to the bed. Seizure precautions maintained.
[2024-08-09 16:00] VITALS: BP 100/57; PULSE 70; PULSE 80; RESP 20; TEMP 36.8; O2SAT 97
[2024-08-09] MEDS: RIVAROXABAN 10MG TABLET 20 MG PO (16:30)
[2024-08-09] MEDS: MULTIVITAMIN TABLET 1 EACH PO (16:31)
[2024-08-09] MEDS: NICOTINE 21MG/24HR PATCH 21 MG TD (17:36)
--- NOTE | 2024-08-09 18:37 | PEERSUPPORT ---
Peer Support Note Patient Information Patient Information: DOS: 08/09/2024 ? Ps visited patient multiple times, pt continued to ask for a assembler convertible top and was searching in his bed for cigarettes when asked if he needed help.? ? Ps confirmed with nurse pt does have a nicotine patch and voiced concerns of pts statements. ? Yanet BURNETT, advised she had given him Ativan for alcohol withdrawal symptoms. ? Ps encouraged him to rest, when offering to covering him up he stated he was waiting on someone to come lay beside him and he needed to go to the bathroom. ? Ps alerted Marie parra. ? Plan of action: Ps will follow up on 08/10/2024
[2024-08-09 18:39] LABS: NT Pro Brain Natriuretic Pep. 10000 pg/mL (0-125)
--- NOTE | 2024-08-09 19:21 | EXP.ACUTE.PN ---
Subjective *Date: 08/09/24 *Time: 22:13 Interval history: Waxing and waning mentation today. On 2 L oxygen this morning on morning rounds. Afebrile. Hemodynamically stable. Continues to have withdrawal scores necessitating Valium Medical Exam Vital signs and Labs for Last 24 Hours: Vital Signs Temp Pulse Pulse Resp BP Pulse Ox O2 Del Method 08/09/24 18:55 Room Air 08/09/24 17:00 Nasal Cannula 08/09/24 16:00 70 08/09/24 16:00 98.2 F 80 20 100/57 L 97 Nasal Cannula 08/09/24 15:00 Room Air 08/09/24 12:52 Room Air 08/09/24 12:00 97.8 F 90 20 92/64 L 94 L Nasal Cannula 08/09/24 12:00 100 H 08/09/24 11:07 Nasal Cannula 08/09/24 08:55 Nasal Cannula 08/09/24 08:00 100 H 08/09/24 08:00 98.0 F 98 H 22 101/65 L 94 L Nasal Cannula 08/09/24 07:50 Nasal Cannula 08/09/24 06:37 Room Air 08/09/24 04:46 Room Air 08/09/24 04:00 110 H 08/09/24 04:00 98.2 F 100 H 18 124/85 99 Nasal Cannula 08/09/24 02:55 Room Air 08/09/24 00:55 Room Air 08/09/24 00:00 95 H 08/09/24 00:00 98.3 F 98 H 18 112/76 94 L Room Air 08/08/24 23:00 Nasal Cannula 08/08/24 21:00 Nasal Cannula 08/08/24 20:00 Nasal Cannula 08/08/24 20:00 110 H 08/08/24 19:56 98.1 F 97 H 12 150/96 H 97 Room Air O2 Flow Rate 08/09/24 18:55 08/09/24 17:00 2 08/09/24 16:00 08/09/24 16:00 2 08/09/24 15:00 08/09/24 12:52 08/09/24 12:00 2 08/09/24 12:00 08/09/24 11:07 2 08/09/24 08:55 2 08/09/24 08:00 08/09/24 08:00 2 08/09/24 07:50 2 08/09/24 06:37 08/09/24 04:46 08/09/24 04:00 08/09/24 04:00 2 08/09/24 02:55 08/09/24 00:55 08/09/24 00:00 08/09/24 00:00 08/08/24 23:00 2 08/08/24 21:00 2 08/08/24 20:00 2 08/08/24 20:00 08/08/24 19:56 Intake and Output 08/09/24 08/09/24 08/09/24 07:59 15:59 23:59 Intake Total 360 / 1510 750 / 1510 400 / 1510 Output Total 1500 / 3600 1850 / 3600 250 / 3600 Balance -1140 / -2090 -1100 / -2090 150 / -2090 Intake: Intake, Oral Amount 360 / 1360 600 / 1360 400 / 1360 Intake, Total IV Amount 150 / 150 Magnesium Sulfate in Water 2 gm 150 / 150 In 50 ml @ 50 mls/hr IV Q1H [facility] Rx#:[id number] Output: Output, Urine Amount 1500 / 3600 1850 / 3600 250 / 3600 Other: Number of Unmeasured Voids 0 1 Number of Bowel Movements 1 Weight 116.755 kg 116.7 kg Patient Weight 08/09/24 23:59 Weight 116.7 kg Laboratory Results - last 24 hr 08/09/24 05:56: WBC 6.5, RBC 3.44 L, Hgb 9.7 L, Hct 30.5 L, MCV 88.7, MCH 28.2, MCHC 31.8, RDW 20.4 H, Plt Count 241, MPV 9.9, Neut % (Auto) 62.9, Lymph % (Auto) 22.6, [place] % (Auto) 8.8, Eos % (Auto) 3.4, Baso % (Auto) 2.0, Neut # (Auto) 4.1, Lymph # (Auto) 1.5, [place] # (Auto) 0.6, Eos # (Auto) 0.2, Baso # (Auto) 0.1, Sodium 133 L, Potassium 3.5, Chloride 97 L, Carbon Dioxide 35 H, Anion Gap 4.5 L, BUN 8 L, Creatinine 1.10, Estimated Creat Clear 119, Estimated GFR 69, Est GFR ( Amer) 83 D, Glucose 92, Calcium 8.2 L, Magnesium 1.0 L D, Total Bilirubin 1.0, AST 29, ALT 13, Alkaline Phosphatase 262 H, NT-Pro-B Natriuret Pep 52903 H, Total Protein 5.7 L, Albumin 2.7 L, Globulin 3.0, Albumin/Globulin Ratio 0.9 L I & O for Labs for Last 24 Hours: Intake & Output 08/06/24 08/07/24 08/08/24 08/09/24 23:59 23:59 23:59 23:59 Intake Total 760 / 1000 1000 / 1360 1510 / 1510 Output Total 1800 / 1800 7520 / 8420 3600 / 3600 Balance -1040 / -800 -6520 / -7060 -2090 / -2090 Weight 113.398 kg 124.738 kg 120.202 kg 116.7 kg Constitutional: Present mild distress, average body habitus, chronically ill appearing and cooperative Head: Present atraumatic and normocephalic ENT: Present normal exam Respiratory: Present normal respiratory effort; Absent rhonchi, wheezes or crackles Cardiac: Present Tachycardia Comment:: Irregularly irregular GI: Present soft and normal bowel sounds; Absent distention or tenderness Extremities: Present normal inspection, full ROM and edema (2+ to thigh) Skin: Present intact; Absent erythema Neuro: Present Grossly Intact, alert, awake and moves all extremities Assessment and Plan *Assessment and plan (1) Acute on chronic heart failure with preserved ejection fraction (HFpEF): Status: Acute Category: Medical Code(s): I50.33 - Acute on chronic diastolic (congestive) heart failure (2) Alcohol abuse: Status: Acute Category: Social Hx Code(s): F10.10 - Alcohol abuse, uncomplicated (3) Noncompliance with medication regimen: Status: Acute Category: Medical Code(s): Z91.148 - Patient's other noncompliance with medication regimen for other reason (4) Falls frequently: Status: Acute Category: Medical Code(s): R29.6 - Repeated falls (5) Atrial fibrillation with rapid ventricular response: Status: Acute Category: Medical Code(s): I48.91 - Unspecified atrial fibrillation (6) Tobacco use: Status: Acute Category: Social Hx Code(s): Z72.0 - Tobacco use Plan 59-year-old admitted for paroxysmal atrial fibrillation with rapid ventricular response following multiple falls while acutely intoxicated. Has a history of significant alcohol abuse with prior complicated withdrawal. Will admit for management of tachyarrhythmia in addition to his alcohol use disorder and subsequent detox. Continues to require inpatient management for withdrawal symptoms. Showing improvement. Cardiology assisting with care today. Problems addressed as follows: Paroxysmal A-fib, RVR - Noncompliance with medical regimen - Currently rate controlled after metoprolol, diltiazem. ? Continue diltiazem 120 mg daily, metoprolol succinate 100 mg daily, Xarelto 20 mg. - Follow-up ECHO. #Physical deconditioning #HFpEF exacerbation ? Has had about a 40 pound weight gain since last admission. In the setting of medication nonadherence, alcohol use disorder. ? Patient is significantly deconditioned, unable to walk two-person assistance. After extensive conversation today, patient states he would consider SNF placement. ? Continue Bumex 2 mg twice daily, spironolactone 25 mg. Diuresing well, negative volume status since admission Acute alcohol intoxication Alcohol use disorder, severe - CIWA protocol. Scores of 3 and 9 this morning. Receiving Valium. -Hemoglobin 9.7, white count 6.5. Kidney function normal BUN 8, creatinine 1.1. Potassium 3.5, magnesium 1.0. Replacing electrolytes per protocol. Repeat CBC, CMP, magnesium ordered for the morning Normocytic anemia: Stable with hemoglobin 9.7 today. Hypokalemia Hypomagnesemia -Replacing per protocol. Full code Regular diet Vitamin supplementation
[2024-08-09 20:00] VITALS: BP 122/70; PULSE 90; PULSE 96; RESP 22; TEMP 36.7; O2SAT 96
[2024-08-09] MEDS: TRAZODONE 50MG TABLET 100 MG PO (20:05)
[2024-08-09] MEDS: PANTOPRAZOLE 40MG TABLET 40 MG PO (20:05)
[2024-08-10] VITALS (7 sets, daily range): BP systolic 92–135; BP diastolic 59–84; PULSE 60–110; RESP 16–24; TEMP 36.4–37.1; O2SAT 90–98; BMI 32.4
--- NOTE | 2024-08-10 03:33 | PC.NURSE ---
Pt AOx4 with intermittent confusion. Currently CIWA assessment q4h. Pt is currently resting in bed with eyes open with some confusion and mild hallucinations. Received prn ativan. Respirations even and unlabored. Bed is low, locked, and call light is in reach.
[2024-08-10] MEDS: LORazepam 2MG/ML VIAL 2 MG IV (04:41)
[2024-08-10] MEDS: LEVOTHYROXINE 125MCG (0.125MG) TAB 125 MCG PO (06:01)
[2024-08-10 06:50] LABS: Basophils # 0.1 K/mm3 (0-0.2); Basophils % 1.3 % (0.1-2.0); Eosinophils # 0.2 Kmm3 (0.0-0.4); Eosinophils % 3.2 % (0.1-12.0); Hematocrit 31.1 % (42.0-52.0); Hemoglobin 9.5 g/dL (14.1-18.0); Immature Granulocytes # 0.02 10^3uL; Immature Granulocytes % 0.3 %; Lymphocytes # 1.5 K/mm3 (0.7-4.5); Lymphocytes % 23.5 % (10-50); Mean Corpuscular HGB Conc 30.5 g/dL (31.8-35.4); Mean Corpuscular Hemoglobin 27.1 pg (27.0-31.2); Mean Corpuscular Volume 88.9 fl (80-94); Mean Platelet Volume 10.5 fl (7.4-10.4); Monocytes # 0.8 K/mm3 (0.1-1.0); Neutrophils # 3.6 K/mm3 (1.8-7.8); Neutrophils % 58.7 % (37.0-80.0); Nucleated Red Blood Cells # 0 10^3/uL; Nucleated Red Blood Cells % 0 %; Platelet Count 234 K/mm3 (142-424); Red Cell Distribution Width 20.8 % (11.5-17.5); Red Cell Distribution Width-SD 64.3 fL; White Blood Count 6.2 K/mm3 (4.8-10.8)
[2024-08-10 07:02] LABS: Albumin Level 2.7 g/dl (3.5-5.0); Chloride 95 mmol/L (98-107); Potassium 3.8 mmoL/L (3.5-5.1); Sodium 133 mmol/L (136-145)
[2024-08-10 07:04] LABS: Blood Urea Nitrogen 9 mg/dl (9-20); Creatinine Clearance Estimated 114 mL/min (50-200); Estimated Glomerular Filt Rate 69 ml/min (>60); GFR (African American) 83 ML/MIN (>60)
[2024-08-10 07:05] LABS: Alanine Aminotransferase 11 U/L (12-78); Albumin/Globulin Ratio 0.9 (1.1-1.8); Alkaline Phosphatase 237 U/L (38-126); Anion Gap 4.8 mEq/L (5-15); Aspartate Amino Transferase 29 U/L (17-59); Bilirubin,Total 0.6 mg/dl (0.2-1.3); Calcium 8.4 mg/dl (8.4-10.2); Carbon Dioxide 37 mmol/L (22.0-30.0); Glucose 90 mg/dl (74-100); Magnesium 1.4 mg/dl (1.6-2.3); Total Protein,Serum 5.7 g/dl (6.3-8.2)
[2024-08-10] MEDS: BUMETANIDE 1MG/4ML VIAL 2 MG IV ×2 (10:30→17:06)
[2024-08-10] MEDS: MAGNESIUM SULFATE IN WATER 2 GM/50 ML PIGGYBACK IV ×3 (10:37→12:49)
[2024-08-10] MEDS: PHENobarbital SOD 65MG/ML INJ 65 MG IV (11:16)
--- NOTE | 2024-08-10 11:52 | P.PN_ITS ---
Subjective Subjective Date: 08/10/24 Time: 09:30 Interval history: Patient very somnolent today and not willing to participate in visit. He is responsive to sternal rub. Discussed with hospitalist. Exam Data for Last 24 hours Vital signs and Labs for Last 24 Hours: Temp Pulse Resp BP Pulse Ox O2 Del Method O2 Flow Rate 97.6 F 76 24 123/68 98 Nasal Cannula 2 08/10/24 10:30 08/10/24 10:30 08/10/24 10:30 08/10/24 10:30 08/10/24 10:30 08/10/24 10:30 08/10/24 10:30 Laboratory Results - last 24 hr 08/09/24 05:56: NT-Pro-B Natriuret Pep 79283 H 08/10/24 05:21: WBC 6.2, RBC 3.50 L, Hgb 9.5 L, Hct 31.1 L, MCV 88.9, MCH 27.1, MCHC 30.5 L, RDW 20.8 H, Plt Count 234, MPV 10.5 H, Neut % (Auto) 58.7, Lymph % (Auto) 23.5, [place] % (Auto) 13.0 H, Eos % (Auto) 3.2, Baso % (Auto) 1.3, Neut # (Auto) 3.6, Lymph # (Auto) 1.5, [place] # (Auto) 0.8, Eos # (Auto) 0.2, Baso # (Auto) 0.1, Sodium 133 L, Potassium 3.8, Chloride 95 L, Carbon Dioxide 37 H, Anion Gap 4.8 L, BUN 9, Creatinine 1.10, Estimated Creat Clear 114, Estimated GFR 69, Est GFR ( Amer) 83, Glucose 90, Calcium 8.4, Magnesium 1.4 L D, Total Bilirubin 0.6, AST 29, ALT 11 L, Alkaline Phosphatase 237 H, Total Protein 5.7 L, Albumin 2.7 L, Globulin 3.0, Albumin/Globulin Ratio 0.9 L I & O for Last 24 hours: Intake & Output 08/07/24 08/08/24 08/09/24 08/10/24 23:59 23:59 23:59 23:59 Intake Total 760 / 1000 1000 / 1360 1510 / 1510 Output Total 1800 / 1800 7520 / 8420 4900 / 5650 1949 Balance -1040 / -800 -6520 / -7060 -3390 / -4140 -1949 / Weight 275 lb 265 lb 257 lb 4.471 oz 244 lb 12.8 oz Constitutional Constitutional: somnolent *Routine HEENT Exam Eye: Present PERRL *Routine Respiratory Exam Respiratory: Present CTA bilaterally; Absent accessory muscle use, wheezes or crackles *Routine Cardiovascular Exam Cardiovascular: Present RRR, Normal S1 and Normal S2; Absent murmur, gallop or rubs *Routine Abdominal Exam Abdominal: Present soft; Absent tenderness *Routine Extremities Exam Extremities: Present edema and pulses intact; Absent cyanosis *Routine Skin Exam Skin: Present intact; Absent erythema or wounds *Routine Neurological Exam Neurological: Present alert and oriented X3 Routine Psychiatric Exam Psychiatric: Present cooperative Progress Note: A&P Assessment and plan (1) Acute on chronic heart failure with preserved ejection fraction (HFpEF): Status: Acute (2) Alcohol abuse: Status: Acute (3) Noncompliance with medication regimen: Status: Acute (4) Falls frequently: Status: Acute (5) Atrial fibrillation with rapid ventricular response: Status: Acute (6) Tobacco use: Status: Acute Assessment and Plan Assessment and Plan for All Diagnoses:: Acute on chronic Left Systolic Heart Failure - known severely reduced EF 30% and severe RV failure on ECHO 2023 - presented here with ProBNP 5k, pulm edema, and 40lb weight gain - med noncompliance, no f/u outpatient, never completed ischemic workup, ongoing ETOH abuse - diuresed 8.7L here - repeat ECHO here - consider DC of Diltiazem if LVEF remains low - consider LifeVest and LHC but compliance, ETOH abuse, recurrent falls have all been significant issue Peristant A-fib - rate controlled here - cont metoprolol, Cardizem, OAC for now Ongoing alcohol abuse with pancreatic issues - Advised complete cessation, patient voices desire to quit but not interested in going to rehab Hypertension - Well-controlled here COPD - Plans per hospitalist Medical noncompliance - Frequent nonadherence to treatment plan, no follow-up, ongoing alcohol - This significantly increases morbidity and mortality, this was discussed with patient in detail *Further plans pending ECHO results. Addendum: ECHO reveals: Conclusion Mild to moderate reduction in LV systolic function (LVEF 40%). Septal flattening is present, suggestive of right-sided pressure/volume overload. Severe RV dilation with severe reduction in RV function. Moderate RA dilation. Mild AI. Severe TR. Elevated RVSP 45-50 mmHg. *No indication for LifeVest or LHC at this time. Resume medical therapy, avoid ETOH. Outpatient f/u in 2 weeks if patient is willing to come. CV DC Meds: - Eliquis 5 mg p.o. twice daily - Bumex 2 mg daily - Diltiazem 120 mg daily - Metoprolol succinate ER 100 mg p.o. daily - Spironolactone 25 mg 1 p.o. daily - Farxiga 10mg po daily
[2024-08-10 11:59] LABS: POC Glucose,Bedside 83 (70-110)
[2024-08-10] MEDS: SERTRALINE 100MG TABLET 100 MG PO (14:46)
[2024-08-10] MEDS: FOLIC ACID 1MG TABLET 1 MG PO (14:46)
[2024-08-10] MEDS: METOPROLOL SUCCINATE XL 100MG TABLET 100 MG PO (14:46)
[2024-08-10] MEDS: SPIRONOLACTONE 25MG TABLET 25 MG PO (14:46)
[2024-08-10] MEDS: DAPAGLIFLOZIN PROPANEDIOL 10 MG TABLET PO (14:46)
[2024-08-10] MEDS: dilTIAZem HCL 180MG CAP.ER.24H 180 MG PO (14:46)
--- NOTE | 2024-08-10 15:27 | PC.NURSE ---
Patient alert to self and place this afternoon but not to time or situation. VS stable and patient remained on 2LNC while sleeping. Lung sounds clear. Patient ciwas 4 due to confusion. Patient sleeping for most of shift.
[2024-08-10] MEDS: MULTIVITAMIN TABLET 1 EACH PO (17:23)
[2024-08-10] MEDS: RIVAROXABAN 10MG TABLET 20 MG PO (17:23)
--- NOTE | 2024-08-10 17:38 | PEERSUPPORT ---
Peer Support Note Patient Information Patient Information: DOS: 08/10/2024 ? ? Pt having a difficult time being his fourth day into alcohol detox. Yanet BURNETT informed she has given medication for withdrawal management for comfort. ? Plan of action: Ps will follow up on 08/11/2024
--- NOTE | 2024-08-10 18:15 | P.PN_ITS ---
Subjective *Date: 08/10/24 *Time: 22:06 Interval history: Patient fatigued this morning. Woke to take medications. Went back to sleep thereafter. Withdrawal symptoms seem to be increasing over the past 24 hours. Diuresing well. -3.7 L in the past 24 hours. Medical Exam Vital signs and Labs for Last 24 Hours: Vital Signs Temp Pulse Pulse Resp BP Pulse Ox O2 Del Method 08/10/24 17:05 Nasal Cannula 08/10/24 16:00 97.6 F 91 H 20 135/84 93 L Nasal Cannula 08/10/24 15:00 Room Air 08/10/24 13:03 Nasal Cannula 08/10/24 12:00 76 08/10/24 12:00 69 16 104/68 L 91 L Nasal Cannula 08/10/24 11:00 Nasal Cannula 08/10/24 10:30 97.6 F 76 24 123/68 98 Nasal Cannula 08/10/24 09:05 Nasal Cannula 08/10/24 08:15 Nasal Cannula 08/10/24 08:00 83 08/10/24 06:22 Nasal Cannula 08/10/24 05:00 Nasal Cannula 08/10/24 04:00 110 H 08/10/24 04:00 98.2 F 107 H 22 114/59 L 90 L Nasal Cannula 08/10/24 03:00 Nasal Cannula 08/10/24 01:00 Nasal Cannula 08/10/24 00:00 90 08/10/24 00:00 98.2 F 93 H 20 98/75 L 96 Room Air 08/09/24 23:00 Nasal Cannula 08/09/24 21:00 Nasal Cannula 08/09/24 20:00 90 08/09/24 20:00 Nasal Cannula 08/09/24 20:00 98.1 F 96 H 22 122/70 96 Nasal Cannula 08/09/24 18:55 Room Air O2 Flow Rate 08/10/24 17:05 2 08/10/24 16:00 2 08/10/24 15:00 08/10/24 13:03 2 08/10/24 12:00 08/10/24 12:00 2 08/10/24 11:00 2 08/10/24 10:30 2 08/10/24 09:05 2 08/10/24 08:15 2 08/10/24 08:00 08/10/24 06:22 2 08/10/24 05:00 2 08/10/24 04:00 08/10/24 04:00 2 08/10/24 03:00 2 08/10/24 01:00 2 08/10/24 00:00 08/10/24 00:00 08/09/24 23:00 2 08/09/24 21:00 2 08/09/24 20:00 08/09/24 20:00 2 08/09/24 20:00 2 08/09/24 18:55 Intake and Output 08/10/24 08/10/24 08/10/24 07:59 15:59 23:59 Intake Total 150 / 150 Output Total 1950 / 3550 1600 / 3550 Balance -1950 / -3400 150 / -3400 -1600 / -3400 Intake: Intake, Total IV Amount 150 / 150 Magnesium Sulfate in Water 2 gm 150 / 150 In 50 ml @ 50 mls/hr IV Q1H [facility] Rx#:[id number] Output: Output, Urine Amount 1949 / 0 1600 / 3550 Other: Number of Unmeasured Voids 1 Weight 111.039 kg Patient Weight 08/10/24 23:59 Weight 111.039 kg Laboratory Results - last 24 hr 08/09/24 05:56: NT-Pro-B Natriuret Pep 70615 H 08/10/24 05:21: WBC 6.2, RBC 3.50 L, Hgb 9.5 L, Hct 31.1 L, MCV 88.9, MCH 27.1, MCHC 30.5 L, RDW 20.8 H, Plt Count 234, MPV 10.5 H, Neut % (Auto) 58.7, Lymph % (Auto) 23.5, [place] % (Auto) 13.0 H, Eos % (Auto) 3.2, Baso % (Auto) 1.3, Neut # (Auto) 3.6, Lymph # (Auto) 1.5, [place] # (Auto) 0.8, Eos # (Auto) 0.2, Baso # (Auto) 0.1, Sodium 133 L, Potassium 3.8, Chloride 95 L, Carbon Dioxide 37 H, Anion Gap 4.8 L, BUN 9, Creatinine 1.10, Estimated Creat Clear 114, Estimated GFR 69, Est GFR ( Amer) 83, Glucose 90, Calcium 8.4, Magnesium 1.4 L D, Total Bilirubin 0.6, AST 29, ALT 11 L, Alkaline Phosphatase 237 H, Total Protein 5.7 L, Albumin 2.7 L, Globulin 3.0, Albumin/Globulin Ratio 0.9 L 08/10/24 11:49: POC Glucose 83 I & O for Labs for Last 24 Hours: Intake & Output 08/07/24 08/08/24 08/09/24 08/10/24 23:59 23:59 23:59 23:59 Intake Total 760 / 1000 1000 / 1360 1510 / 1510 150 / 150 Output Total 1800 / 1800 7520 / 8420 4900 / 5650 3550 / 3550 Balance -1040 / -800 -6520 / -7060 -3390 / -4140 -3400 / -3400 Weight 124.738 kg 120.202 kg 116.7 kg 111.039 kg Constitutional: Present mild distress, average body habitus, chronically ill ap pearing and cooperative Head: Present atraumatic and normocephalic ENT: Present normal exam Respiratory: Present normal respiratory effort; Absent rhonchi, wheezes or crackles Cardiac: Present Tachycardia Comment:: Irregularly irregular GI: Present soft and normal bowel sounds; Absent distention or tenderness Extremities: Present normal inspection, full ROM and edema (2+ to thigh) Skin: Present intact; Absent erythema Neuro: Present Grossly Intact, alert, awake and moves all extremities Assessment and Plan *Assessment and plan (1) Acute on chronic heart failure with preserved ejection fraction (HFpEF): Status: Acute Category: Medical Code(s): I50.33 - Acute on chronic diastolic (congestive) heart failure (2) Alcohol abuse: Status: Acute Category: Social Hx Code(s): F10.10 - Alcohol abuse, uncomplicated (3) Noncompliance with medication regimen: Status: Acute Category: Medical Code(s): Z91.148 - Patient's other noncompliance with medication regimen for other reason (4) Falls frequently: Status: Acute Category: Medical Code(s): R29.6 - Repeated falls (5) Atrial fibrillation with rapid ventricular response: Status: Acute Category: Medical Code(s): I48.91 - Unspecified atrial fibrillation (6) Tobacco use: Status: Acute Category: Social Hx Code(s): Z72.0 - Tobacco use Plan 59-year-old admitted for paroxysmal atrial fibrillation with rapid ventricular response following multiple falls while acutely intoxicated. Has a history of significant alcohol abuse with prior complicated withdrawal. Will admit for management of tachyarrhythmia in addition to his alcohol use disorder and subsequent detox. Continues to require inpatient management for withdrawal symptoms. Some increasing withdrawal symptoms in the past 24 hours. Cardiology assisting with care today. Problems addressed as follows: Paroxysmal A-fib, RVR - Noncompliance with medical regimen - Currently rate controlled after metoprolol, diltiazem. ? Continue diltiazem 120 mg daily, metoprolol succinate 100 mg daily, Xarelto 20 mg. - Follow-up ECHO. #Physical deconditioning #HFpEF exacerbation ? Has had about a 40 pound weight gain since last admission. In the setting of medication nonadherence, alcohol use disorder. ? Patient is significantly deconditioned, unable to walk two-person assistance. After extensive conversation today, patient states he would consider SNF placement. ? Continue Bumex 2 mg twice daily, spironolactone 25 mg. Diuresing well, negative volume status since admission. -3.7 liters in the past 24 hours Acute alcohol intoxication Alcohol use disorder, severe - Transitioned to Valium per protocol. - Continue CIWA protocol - Initiated phenobarbital 65 mg IV twice daily - Hemoglobin 9.5, white count 6.2. Kidney function stable BUN 9, creatinine 1.1. Magnesium 1.4 potassium 3.8. Replacing per protocol. Repeat CBC, CMP, magnesium ordered for the morning Normocytic anemia: Stable with hemoglobin 9.5 today. Hypokalemia Hypomagnesemia -Replacing per protocol. Full code Regular diet Vitamin supplementation
--- NOTE | 2024-08-10 23:13 | PC.NURSE ---
patient lethargic, arousable to shaking enough to tell his name then fell asleep, patient not able to take medications
[2024-08-11] VITALS (7 sets, daily range): BP systolic 90–107; BP diastolic 51–78; PULSE 62–84; RESP 17–24; TEMP 36.6–37; O2SAT 91–95; BMI 31.8
[2024-08-11] MEDS: diazePAM 5MG TABLET 5 MG PO (04:59)
[2024-08-11] MEDS: LEVOTHYROXINE 125MCG (0.125MG) TAB 125 MCG PO (06:44)
[2024-08-11 06:54] LABS: Basophils # 0.1 K/mm3 (0-0.2); Basophils % 1.4 % (0.1-2.0); Eosinophils # 0.2 Kmm3 (0.0-0.4); Eosinophils % 3.8 % (0.1-12.0); Hematocrit 33.3 % (42.0-52.0); Immature Granulocytes # 0.02 10^3uL; Immature Granulocytes % 0.3 %; Lymphocytes # 1.5 K/mm3 (0.7-4.5); Lymphocytes % 26.5 % (10-50); Mean Corpuscular Hemoglobin 27.2 pg (27.0-31.2); Mean Corpuscular Volume 90.7 fl (80-94); Mean Platelet Volume 10.6 fl (7.4-10.4); Monocytes # 0.8 K/mm3 (0.1-1.0); Monocytes % 13.9 % (1.7-9.3); Neutrophils # 3.1 K/mm3 (1.8-7.8); Neutrophils % 54.1 % (37.0-80.0); Nucleated Red Blood Cells # 0 10^3/uL; Nucleated Red Blood Cells % 0 %; Platelet Count 249 K/mm3 (142-424); Red Blood Count 3.67 M/mm3 (4.60-6.20); Red Cell Distribution Width 21.1 % (11.5-17.5); Red Cell Distribution Width-SD 69.9 fL; White Blood Count 5.7 K/mm3 (4.8-10.8)
[2024-08-11 06:58] LABS: Albumin Level 2.6 g/dl (3.5-5.0); Chloride 90 mmol/L (98-107); Sodium 133 mmol/L (136-145)
[2024-08-11 07:01] LABS: Alanine Aminotransferase 11 U/L (12-78); Albumin/Globulin Ratio 0.8 (1.1-1.8); Aspartate Amino Transferase 30 U/L (17-59); Blood Urea Nitrogen 13 mg/dl (9-20); Creatinine Clearance Estimated 94 mL/min (50-200); Estimated Glomerular Filt Rate 57 ml/min (>60); GFR (African American) 68 ML/MIN (>60); Globulin 3.1 g/dL (1.3-3.2); Total Protein,Serum 5.7 g/dl (6.3-8.2)
[2024-08-11 07:02] LABS: Alkaline Phosphatase 230 U/L (38-126); Bilirubin,Total 0.2 mg/dl (0.2-1.3); Glucose 91 mg/dl (74-100)
[2024-08-11 07:08] LABS: Carbon Dioxide 39 mmol/L (22.0-30.0)
[2024-08-11 08:19] LABS: Magnesium 2.1 mg/dl (1.6-2.3); Phosphorous 3.6 mg/dl (2.5-4.5)
[2024-08-11] MEDS: SERTRALINE 100MG TABLET 100 MG PO (08:21)
[2024-08-11] MEDS: dilTIAZem HCL 180MG CAP.ER.24H 180 MG PO (08:21)
[2024-08-11] MEDS: SPIRONOLACTONE 25MG TABLET 25 MG PO (08:21)
[2024-08-11] MEDS: BUMETANIDE 1MG/4ML VIAL 2 MG IV ×2 (08:21→16:36)
[2024-08-11] MEDS: DAPAGLIFLOZIN PROPANEDIOL 10 MG TABLET PO (08:21)
[2024-08-11] MEDS: METOPROLOL SUCCINATE XL 100MG TABLET 100 MG PO (08:21)
[2024-08-11] MEDS: FOLIC ACID 1MG TABLET 1 MG PO (08:21)
[2024-08-11] MEDS: MULTIVITAMIN TABLET 1 EACH PO (16:36)
[2024-08-11] MEDS: RIVAROXABAN 10MG TABLET 20 MG PO (16:36)
--- NOTE | 2024-08-11 17:45 | PEERSUPPORT ---
Peer Support Note Patient Information Patient Information: DOS: 08/11/2024 ? Pt sitting up in chair, stated he done well with PT. ? Pt reflected he had slept majority of the day before, and woke up when breakfast was served. He was able to eat and hold it down, realizing his appetite is coming back. ? Ps provided positive praise for willingness to engage with PT educating on importance of rebuilding strength and balance in order to be more stable and independent. ? Ps and pt briefly discussed housing, pt sated he is living in an apartment complex with income assistance. He acknowledges many others who helped him to be able to move in as he was facing many challenges. He confirmed his monthly bills are paid and if he needs to his friend Alex will make sure they are paid. Ps encourages support for assistance in overall health physical therapy, alcohol use disorder/specialized therapy and support, continued medical care. Pt reported a recent event while hospitalized that is inconsistent with reality. ? Ps made nurse aware of pt report. ? Pt asking for assistance to get back in bed. ? Techs 3x assisted pt to bed. ? Ps f/u 5:00pm ? Pt waiting on dinner, making call to friend Alex. ? Ps encouraged pt to rest well and be mindful to engage with PT following day for building strength to become independent. Pt receptive and agreeing with ps. ? Plan of action: Ps will follow up on 08/12/2024 ?
[2024-08-11] MEDS: PANTOPRAZOLE 40MG TABLET 40 MG PO (20:45)
[2024-08-11] MEDS: TRAZODONE 50MG TABLET 100 MG PO (20:45)
--- NOTE | 2024-08-11 22:08 | P.PN_ITS ---
Subjective *Date: 08/11/24 *Time: 22:08 Interval history: More active this morning. Answer questions appropriately. Alert and oriented to person and place. Still fatigued but did work with therapy. Necessitating significant support. On room air today. Afebrile. CIWA scores improved Medical Exam Vital signs and Labs for Last 24 Hours: Vital Signs Temp Pulse Pulse Resp BP Pulse Ox O2 Del Method 08/11/24 20:00 98.4 F 69 18 97/73 L 95 Room Air 08/11/24 19:00 Room Air 08/11/24 17:05 Room Air 08/11/24 16:00 98.0 F 84 17 107/64 L 91 L 08/11/24 16:00 80 08/11/24 15:05 Nasal Cannula 08/11/24 13:00 Nasal Cannula 08/11/24 12:00 70 08/11/24 12:00 98 F 62 18 101/78 L 91 L Room Air 08/11/24 11:05 Nasal Cannula 08/11/24 09:05 Nasal Cannula 08/11/24 08:00 98.1 F 80 17 95/51 L 95 Nasal Cannula 08/11/24 08:00 70 08/11/24 08:00 Room Air 08/11/24 07:00 Nasal Cannula 08/11/24 05:00 Room Air 08/11/24 04:00 70 08/11/24 04:00 98.5 F 65 24 90/65 L 94 L Room Air 08/11/24 03:00 Room Air 08/11/24 01:00 Room Air 08/11/24 00:00 80 08/11/24 00:00 98.6 F 73 19 95/58 L 95 Nasal Cannula 08/10/24 23:00 Room Air O2 Flow Rate 08/11/24 20:00 08/11/24 19:00 08/11/24 17:05 08/11/24 16:00 08/11/24 16:00 08/11/24 15:05 2 08/11/24 13:00 2 08/11/24 12:00 08/11/24 12:00 08/11/24 11:05 2 08/11/24 09:05 2 08/11/24 08:00 1 08/11/24 08:00 08/11/24 08:00 08/11/24 07:00 2 08/11/24 05:00 08/11/24 04:00 08/11/24 04:00 08/11/24 03:00 08/11/24 01:00 08/11/24 00:00 08/11/24 00:00 2 08/10/24 23:00 Intake and Output 08/11/24 08/11/24 08/11/24 07:59 15:59 23:59 Intake Total 480 / 1390 670 / 1390 240 / 1390 Output Total 900 / 2300 700 / 2300 700 / 2300 Balance -420 / -910 -30 / -910 -460 / -910 Intake: Intake, Oral Amount 480 / 1390 670 / 1390 240 / 1390 Output: Output, Urine Amount 900 / 2300 700 / 2300 700 / 2300 Other: Number of Unmeasured Voids 0 0 Number of Bowel Movements 1 Weight 108.953 kg Patient Weight 08/11/24 23:59 Weight 108.953 kg Laboratory Results - last 24 hr 08/11/24 05:23: WBC 5.7, RBC 3.67 L, Hgb 10.0 L, Hct 33.3 L, MCV 90.7, MCH 27.2, MCHC 30.0 L, RDW 21.1 H, Plt Count 249, MPV 10.6 H, Neut % (Auto) 54.1, Lymph % (Auto) 26.5, Franklin % (Auto) 13.9 H, Eos % (Auto) 3.8, Baso % (Auto) 1.4, Neut # (Auto) 3.1, Lymph # (Auto) 1.5, Franklin # (Auto) 0.8, Eos # (Auto) 0.2, Baso # (Auto) 0.1, Sodium 133 L, Potassium 4.0, Chloride 90 L, Carbon Dioxide 39 H, Anion Gap 8.0, BUN 13 D, Creatinine 1.30 H, Estimated Creat Clear 94, Estimated GFR 57 L, Est GFR ( Amer) 68, Glucose 91, Calcium 8.0 L, Phosphorus 3.6, Magnesium 2.1 D, Total Bilirubin 0.2, AST 30, ALT 11 L, Alkaline Phosphatase 230 H, Total Protein 5.7 L, Albumin 2.6 L, Globulin 3.1, Albumin/Globulin Ratio 0.8 L I & O for Labs for Last 24 Hours: Intake & Output 08/08/24 08/09/24 08/10/24 08/11/24 23:59 23:59 23:59 23:59 Intake Total 1000 / 1360 1510 / 1510 400 / 880 1390 / 1390 Output Total 7520 / 8420 4900 / 5650 3550 / 3550 2300 / 2300 Balance -6520 / -7060 -3390 / -4140 -3150 / -2670 -910 / -910 Weight 120.202 kg 116.7 kg 111.039 kg 108.953 kg Constitutional: Present mild distress, average body habitus, chronically ill appearing and cooperative Head: Present atraumatic and normocephalic ENT: Present normal exam Respiratory: Present normal respiratory effort; Absent rhonchi, wheezes or c rackles Cardiac: Present Tachycardia Comment:: Irregularly irregular GI: Present soft and normal bowel sounds; Absent distention or tenderness Extremities: Present normal inspection, full ROM and edema (2+ to thigh) Skin: Present intact; Absent erythema Neuro: Present Grossly Intact, alert, awake and moves all extremities Comment:: Alert and oriented x 2 Assessment and Plan *Assessment and plan (1) Acute on chronic heart failure with preserved ejection fraction (HFpEF): Status: Acute Category: Medical Code(s): I50.33 - Acute on chronic diastolic (congestive) heart failure (2) Alcohol abuse: Status: Acute Category: Social Hx Code(s): F10.10 - Alcohol abuse, uncomplicated (3) Noncompliance with medication regimen: Status: Acute Category: Medical Code(s): Z91.148 - Patient's other noncompliance with medication regimen for other reason (4) Falls frequently: Status: Acute Category: Medical Code(s): R29.6 - Repeated falls (5) Atrial fibrillation with rapid ventricular response: Status: Acute Category: Medical Code(s): I48.91 - Unspecified atrial fibrillation (6) Tobacco use: Status: Acute Category: Social Hx Code(s): Z72.0 - Tobacco use Plan 59-year-old admitted for paroxysmal atrial fibrillation with rapid ventricular response following multiple falls while acutely intoxicated. Has a history of significant alcohol abuse with prior complicated withdrawal. Will admit for management of tachyarrhythmia in addition to his alcohol use disorder and subsequent detox. Continues to require inpatient management for withdrawal symptoms. More oriented today but still quite ill. Cardiology assisting with care. Working on placement with case management. Problems addressed as follows: Paroxysmal A-fib, RVR - Noncompliance with medical regimen - Currently rate controlled after metoprolol, diltiazem. ? Continue diltiazem 120 mg daily, metoprolol succinate 100 mg daily, Xarelto 20 mg. - Echo shows reduced EF of 40%. Right-sided volume overload with flattening of septum. Severe RV dilation. Elevated RVSP of 45 to 50 mmHg #Physical deconditioning #HFpEF exacerbation ? Has had about a 40 pound weight gain since last admission. In the setting of medication nonadherence, alcohol use disorder. ? Patient is significantly deconditioned, unable to walk two-person assistance. After extensive conversation today, patient states he would consider SNF placement. ? Continue Bumex 2 mg twice daily, spironolactone 25 mg. Diuresing well, negative volume status since admission. 15 L since admission. Acute alcohol intoxication Alcohol use disorder, severe - Continue Valium per protocol. Discontinue phenobarbital after this evening's dose. - Continue CIWA protocol - Hemoglobin 10, white count 5.7. BUN 13, creatinine 1.3. Potassium 4.9. Replacing per protocol. Repeat CBC, CMP, magnesium ordered for the morning Normocytic anemia: Improvement with hemoconcentration. Hemoglobin 10.0 Hypokalemia, improving Hypomagnesemia -Replacing per protocol. Full code Regular diet Vitamin supplementation
[2024-08-12] VITALS (7 sets, daily range): BP systolic 96–108; BP diastolic 58–78; PULSE 60–93; RESP 15–20; TEMP 36.3–37; O2SAT 92–100; BMI 31.8
--- NOTE | 2024-08-12 04:26 | PC.NURSE ---
Pt is A&Ox4, with intermittent confusion. Pt has been on room air, however pt did desat into the mid 80's while sleeping. Pt was placed on 2L per NC, and maintained a O2 sat greater than 90. Pt did not voice any concerns at this time. Pt is resting in bed, call light is within reach. Plan of care ongoing.
[2024-08-12 05:58] LABS: Basophils # 0.1 K/mm3 (0-0.2); Basophils % 1.7 % (0.1-2.0); Eosinophils # 0.2 Kmm3 (0.0-0.4); Eosinophils % 4.5 % (0.1-12.0); Hemoglobin 9.5 g/dL (14.1-18.0); Immature Granulocytes # 0.01 10^3uL; Immature Granulocytes % 0.2 %; Lymphocytes # 1.9 K/mm3 (0.7-4.5); Lymphocytes % 35.3 % (10-50); Mean Corpuscular HGB Conc 30.6 g/dL (31.8-35.4); Mean Corpuscular Hemoglobin 27.2 pg (27.0-31.2); Mean Corpuscular Volume 88.8 fl (80-94); Mean Platelet Volume 10.1 fl (7.4-10.4); Monocytes # 0.7 K/mm3 (0.1-1.0); Monocytes % 13.1 % (1.7-9.3); Neutrophils # 2.4 K/mm3 (1.8-7.8); Neutrophils % 45.2 % (37.0-80.0); Nucleated Red Blood Cells # 0 10^3/uL; Nucleated Red Blood Cells % 0 %; Platelet Count 211 K/mm3 (142-424); Red Blood Count 3.49 M/mm3 (4.60-6.20); Red Cell Distribution Width-SD 66.1 fL; White Blood Count 5.4 K/mm3 (4.8-10.8)
[2024-08-12 06:02] LABS: Albumin Level 2.8 g/dl (3.5-5.0); Chloride 90 mmol/L (98-107); Sodium 133 mmol/L (136-145)
[2024-08-12 06:05] LABS: Alanine Aminotransferase 10 U/L (12-78); Albumin/Globulin Ratio 0.9 (1.1-1.8); Alkaline Phosphatase 229 U/L (38-126); Aspartate Amino Transferase 25 U/L (17-59); Bilirubin,Total 0.3 mg/dl (0.2-1.3); Blood Urea Nitrogen 16 mg/dl (9-20); Calcium 9.2 mg/dl (8.4-10.2); Creatinine Clearance Estimated 82 mL/min (50-200); Estimated Glomerular Filt Rate 48 ml/min (>60); GFR (African American) 58 ML/MIN (>60); Globulin 3.2 g/dL (1.3-3.2); Glucose 99 mg/dl (74-100)
[2024-08-12] MEDS: LEVOTHYROXINE 125MCG (0.125MG) TAB 125 MCG PO (06:11)
[2024-08-12 06:13] LABS: Magnesium 1.8 mg/dl (1.6-2.3); Phosphorous 3.6 mg/dl (2.5-4.5)
[2024-08-12 06:16] LABS: Carbon Dioxide 41 mmol/L (22.0-30.0)
[2024-08-12] MEDS: DAPAGLIFLOZIN PROPANEDIOL 10 MG TABLET PO (08:09)
[2024-08-12] MEDS: FOLIC ACID 1MG TABLET 1 MG PO (08:09)
[2024-08-12] MEDS: METOPROLOL SUCCINATE XL 100MG TABLET 100 MG PO (08:09)
[2024-08-12] MEDS: dilTIAZem HCL 180MG CAP.ER.24H 180 MG PO (08:09)
[2024-08-12] MEDS: SERTRALINE 100MG TABLET 100 MG PO (08:09)
[2024-08-12] MEDS: BUMETANIDE 1MG/4ML VIAL 2 MG IV ×2 (08:09→16:31)
[2024-08-12] MEDS: SPIRONOLACTONE 25MG TABLET 25 MG PO (08:09)
[2024-08-12] MEDS: MULTIVITAMIN TABLET 1 EACH PO (16:31)
[2024-08-12] MEDS: RIVAROXABAN 10MG TABLET 20 MG PO (16:31)
--- NOTE | 2024-08-12 17:14 | PC.NURSE ---
Pt is A&Ox4, with intermittent confusion. tolerates RA with sats >90% when awake, but requires 2LNC when sleeping due to desatting below 90%. pt worked with PT/OT today and was able to transfer to the chair. no complaints of pain this shift. remains in controlled a fib on tele. no needs at this time. call light within reach.
--- NOTE | 2024-08-12 19:10 | P.PN_ITS ---
Subjective *Date: 08/12/24 *Time: 21:49 Interval history: Patient more interactive today. Alert and oriented x 3. Working with therapy. Stating he does not want to go to rehab. Plans to go home when he is discharged. Express strong concern about his risk for readmission. Patient states he understands wants to go home. Weaned to room air. Afebrile. Tolerating p.o. intake. Medical Exam Vital signs and Labs for Last 24 Hours: Vital Signs Temp Pulse Pulse Resp BP Pulse Ox O2 Del Method 08/12/24 18:57 Nasal Cannula 08/12/24 17:00 Nasal Cannula 08/12/24 16:00 60 08/12/24 16:00 97.4 F L 71 20 99/75 L 94 L Room Air 08/12/24 15:00 Room Air 08/12/24 13:00 Nasal Cannula 08/12/24 12:00 80 08/12/24 12:00 98 F 64 16 101/59 L 96 Nasal Cannula 08/12/24 11:00 Nasal Cannula 08/12/24 09:00 Nasal Cannula 08/12/24 08:18 71 16 102/72 L 93 L Room Air 08/12/24 08:00 97.6 F 72 18 102/72 L 100 Nasal Cannula 08/12/24 08:00 93 L Nasal Cannula 08/12/24 08:00 60 08/12/24 06:53 Nasal Cannula 08/12/24 05:00 Nasal Cannula 08/12/24 04:00 98.6 F 64 18 108/78 L 92 L Nasal Cannula 08/12/24 04:00 70 08/12/24 03:00 Nasal Cannula 08/12/24 01:00 Nasal Cannula 08/12/24 00:00 80 08/11/24 23:57 98.6 F 64 18 94/72 L 93 L Room Air 08/11/24 23:00 Room Air 08/11/24 21:00 Room Air 08/11/24 20:00 80 08/11/24 20:00 98.4 F 69 18 97/73 L 95 Room Air 08/11/24 20:00 Room Air O2 Flow Rate 08/12/24 18:57 2 08/12/24 17:00 2 08/12/24 16:00 08/12/24 16:00 08/12/24 15:00 08/12/24 13:00 2 08/12/24 12:00 08/12/24 12:00 1 08/12/24 11:00 2 08/12/24 09:00 2 08/12/24 08:18 08/12/24 08:00 1 08/12/24 08:00 2 08/12/24 08:00 08/12/24 06:53 2 08/12/24 05:00 2 08/12/24 04:00 08/12/24 04:00 08/12/24 03:00 2 08/12/24 01:00 2 08/12/24 00:00 08/11/24 23:57 08/11/24 23:00 08/11/24 21:00 08/11/24 20:00 08/11/24 20:00 08/11/24 20:00 Intake and Output 08/12/24 08/12/24 08/12/24 07:59 15:59 23:59 Intake Total 100 / 680 240 / 680 340 / 680 Output Total 400 / 3900 2600 / 3900 900 / 3900 Balance -300 / -3220 -2360 / -3220 -560 / -3220 Intake: Intake, Oral Amount 100 / 680 240 / 680 340 / 680 Output: Output, Urine Amount 400 / 3900 2600 / 3900 900 / 3900 Other: Number of Unmeasured Voids 0 0 0 Number of Bowel Movements 1 Weight 108.953 kg Patient Weight 08/12/24 23:59 Weight 108.953 kg Laboratory Results - last 24 hr 08/12/24 05:36: WBC 5.4, RBC 3.49 L, Hgb 9.5 L, Hct 31.0 L, MCV 88.8, MCH 27.2, MCHC 30.6 L, RDW 21.0 H, Plt Count 211, MPV 10.1, Neut % (Auto) 45.2, Lymph % (Auto) 35.3, Sebastian % (Auto) 13.1 H, Eos % (Auto) 4.5, Baso % (Auto) 1.7, Neut # (Auto) 2.4, Lymph # (Auto) 1.9, Sebastian # (Auto) 0.7, Eos # (Auto) 0.2, Baso # (Auto) 0.1, Sodium 133 L, Potassium 4.0, Chloride 90 L, Carbon Dioxide 41 H*, Anion Gap 6.0, BUN 16, Creatinine 1.50 H, Estimated Creat Clear 82, Estimated GFR 48 L, Est GFR ( Amer) 58 L, Glucose 99, Calcium 9.2, Phosphorus 3.6, Magnesium 1.8 D, Total Bilirubin 0.3, AST 25, ALT 10 L, Alkaline Phosphatase 229 H, Total Protein 6.0 L, Albumin 2.8 L, Globulin 3.2, Albumin/Globulin Ratio 0.9 L I & O for Labs for Last 24 Hours: Intake & Output 08/09/24 08/10/24 08/11/24 08/12/24 23:59 23:59 23:59 23:59 Intake Total 1510 / 1510 400 / 880 1390 / 1490 680 / 680 Output Total 4900 / 5650 3550 / 3550 3100 / 3100 3900 / 3900 Balance -3390 / -4140 -3150 / -2670 -1710 / -1610 -3220 / -3220 Weight 116.7 kg 111.039 kg 108.953 kg 108.953 kg Constitutional: Present mild distress, average body habitus, chronically ill appearing and cooperative Head: Present atraumatic and normocephalic ENT: Present normal exam Respiratory: Present normal respiratory effort; Absent rhonchi, wheezes or crackles Cardiac: Present Tachycardia Comment:: Irregularly irregular GI: Present soft and normal bowel sounds; Absent distention or tenderness Extremities: Present normal inspection, full ROM and edema (trace in ankles) Skin: Present intact; Absent erythema Neuro: Present Grossly Intact, alert, awake, oriented x 3 and moves all extremities Assessment and Plan *Assessment and plan (1) Acute on chronic heart failure with preserved ejection fraction (HFpEF): Status: Acute Category: Medical Code(s): I50.33 - Acute on chronic diastolic (congestive) heart failure (2) Alcohol abuse: Status: Acute Category: Social Hx Code(s): F10.10 - Alcohol abuse, uncomplicated (3) Noncompliance with medication regimen: Status: Acute Category: Medical Code(s): Z91.148 - Patient's other noncompliance with medication regimen for other reason (4) Falls frequently: Status: Acute Category: Medical Code(s): R29.6 - Repeated falls (5) Atrial fibrillation with rapid ventricular response: Status: Acute Category: Medical Code(s): I48.91 - Unspecified atrial fibrillation (6) Tobacco use: Status: Acute Category: Social Hx Code(s): Z72.0 - Tobacco use Plan 59-year-old admitted for paroxysmal atrial fibrillation with rapid ventricular response following multiple falls while acutely intoxicated. Has a history of significant alcohol abuse with prior complicated withdrawal. Will admit for management of tachyarrhythmia in addition to his alcohol use disorder and subsequent detox. Continues to require inpatient management for withdrawal symptoms. Improving mentation. Oriented x 3. Anticipate discharge in the next day or 2. No longer wants to go to rehab. Will discharge home with outpatient therapy. Case management assisting care. Problems addressed as follows: Paroxysmal A-fib, RVR Combined heart failure - Noncompliance with medical regimen - Currently rate controlled after metoprolol, diltiazem. ? Continue diltiazem 180 mg daily, metoprolol succinate 100 mg daily, Xarelto 20 mg. - Echo shows reduced EF of 40%. Right-sided volume overload with flattening of septum. Severe RV dilation. Elevated RVSP of 45 to 50 mmHg - Responding to diuresis With Bumex 2 mg IV twice daily. -20 L since admission - Continue dapagliflozin 10 mg daily #Physical deconditioning #HFpEF exacerbation ? Has had about a 40 pound weight gain since last admission. In the setting of medication nonadherence, alcohol use disorder. ? Patient is significantly deconditioned, continues to require support however refusing placement at this point. No longer wants to go to SNF. Will discharge home with outpatient therapy at patient preference when medically stable in the next day or 2 ? Continue Bumex 2 mg twice daily, spironolactone 25 mg. Diuresing well, negative volume status since admission. -20 L since admission. Acute alcohol intoxication Alcohol use disorder, severe - Continue Valium per protocol. Continue CIWA protocol - Hemoglobin 9.5, white count 5.4. BUN 16, creatinine 1.5. Potassium 4.0, magnesium 1.8. Replacing per protocol. Repeat CBC, CMP, magnesium ordered for the morning Normocytic anemia: Improvement with hemoconcentration. Hemoglobin 9.5 Hypokalemia, improving Hypomagnesemia -Replacing per protocol. Full code Regular diet Vitamin supplementation
[2024-08-12] MEDS: PANTOPRAZOLE 40MG TABLET 40 MG PO (20:21)
[2024-08-13] VITALS: BP 99/72; PULSE 94; RESP 19; TEMP 36.6; O2SAT 96
[2024-08-13 04:00] VITALS: BP 96/56; PULSE 80; PULSE 99; RESP 21; TEMP 36.7; O2SAT 96; BMI 31.0
--- NOTE | 2024-08-13 04:07 | PC.NURSE ---
Pt is A&Ox4, with intermittent confusion. Pt is on RA. Pt has been A-fib w/ a BBB on telemetry. Pt has not reported any concerns at this time. Pt is resting in bed, call light is within reach. Plan of care ongoing.
[2024-08-13 05:58] LABS: Basophils # 0.1 K/mm3 (0-0.2); Basophils % 1.7 % (0.1-2.0); Eosinophils # 0.2 Kmm3 (0.0-0.4); Eosinophils % 3.1 % (0.1-12.0); Hematocrit 32.4 % (42.0-52.0); Hemoglobin 10.2 g/dL (14.1-18.0); Immature Granulocytes # 0.02 10^3uL; Immature Granulocytes % 0.3 %; Lymphocytes # 1.7 K/mm3 (0.7-4.5); Mean Corpuscular HGB Conc 31.5 g/dL (31.8-35.4); Mean Corpuscular Hemoglobin 27.5 pg (27.0-31.2); Mean Corpuscular Volume 87.3 fl (80-94); Mean Platelet Volume 9.8 fl (7.4-10.4); Monocytes # 0.9 K/mm3 (0.1-1.0); Monocytes % 15.8 % (1.7-9.3); Neutrophils # 2.9 K/mm3 (1.8-7.8); Neutrophils % 50.1 % (37.0-80.0); Nucleated Red Blood Cells # 0 10^3/uL; Nucleated Red Blood Cells % 0 %; Platelet Count 262 K/mm3 (142-424); Red Blood Count 3.71 M/mm3 (4.60-6.20); Red Cell Distribution Width 20.4 % (11.5-17.5); Red Cell Distribution Width-SD 63.9 fL; White Blood Count 5.8 K/mm3 (4.8-10.8)
[2024-08-13] MEDS: LEVOTHYROXINE 125MCG (0.125MG) TAB 125 MCG PO (06:16)
[2024-08-13 08:00] VITALS: BP 97/57; PULSE 70; PULSE 75; RESP 18; TEMP 36.7; O2SAT 93
[2024-08-13 08:25] LABS: Albumin Level 2.7 g/dl (3.5-5.0); Chloride 89 mmol/L (98-107)
[2024-08-13 08:26] LABS: Sodium 131 mmol/L (136-145)
[2024-08-13 08:28] LABS: Alanine Aminotransferase 10 U/L (12-78); Albumin/Globulin Ratio 0.9 (1.1-1.8); Alkaline Phosphatase 210 U/L (38-126); Aspartate Amino Transferase 28 U/L (17-59); Bilirubin,Total 0.3 mg/dl (0.2-1.3); Blood Urea Nitrogen 18 mg/dl (9-20); Carbon Dioxide 40 mmol/L (22.0-30.0); Creatinine Clearance Estimated 80 mL/min (50-200); Estimated Glomerular Filt Rate 48 ml/min (>60); GFR (African American) 58 ML/MIN (>60); Globulin 3.1 g/dL (1.3-3.2); Total Protein,Serum 5.8 g/dl (6.3-8.2)
[2024-08-13 08:29] LABS: Calcium 8.1 mg/dl (8.4-10.2); Glucose 121 mg/dl (74-100); Magnesium 1.7 mg/dl (1.6-2.3)
[2024-08-13 08:56] VITALS: BP 101/65
[2024-08-13] MEDS: SERTRALINE 100MG TABLET 100 MG PO (08:57)
[2024-08-13] MEDS: dilTIAZem HCL 180MG CAP.ER.24H 180 MG PO (08:57)
[2024-08-13] MEDS: METOPROLOL SUCCINATE XL 100MG TABLET 100 MG PO (08:57)
[2024-08-13] MEDS: SPIRONOLACTONE 25MG TABLET 25 MG PO (08:57)
[2024-08-13] MEDS: DAPAGLIFLOZIN PROPANEDIOL 10 MG TABLET PO (08:57)
[2024-08-13] MEDS: FOLIC ACID 1MG TABLET 1 MG PO (08:58)
[2024-08-13] MEDS: BUMETANIDE 1MG/4ML VIAL 2 MG IV (08:58)
--- NOTE | 2024-08-13 11:19 | PC.NURSE ---
Notified Monika Deleon RN of patients [phone] blood pressure- 97/57
[2024-08-13] MEDS: MAGNESIUM SULFATE IN WATER 2 GM/50 ML PIGGYBACK IV ×2 (11:27→12:26)
--- NOTE | 2024-08-13 12:04 | EXP.DC.SUM ---
General Admission date:: 08/06/24 Hospital Course Hospital Course Hospital Course: Alonso Richardson is a 59-year-old admitted for paroxysmal atrial fibrillation with rapid ventricular response following multiple falls while acutely intoxicated. Has a history of significant alcohol abuse with prior complicated withdrawal. Hospital course complicated by HFpEF exacerbation requiring several days of aggressive diuresis #Paroxysmal A-fib, RVR - Presented with A-fib RVR, nonadherent with medical regimen. A-fib currently rate controlled after metoprolol, diltiazem. ? Continue diltiazem 180 mg daily, metoprolol succinate 100 mg daily, Xarelto 20 mg. Cardiology advised to discontinue amiodarone, digoxin due to poor medication adherence. - Echo shows reduced EF of 40%. Right-sided volume overload with flattening of septum. Severe RV dilation. Elevated RVSP of 45 to 50 mmHgx #Physical deconditioning #HFpEF exacerbation ? Has had about a 40 pound weight gain since last admission. In the setting of medication nonadherence, alcohol use disorder. ? Patient is significantly deconditioned, continues to require support however refusing placement at this point. No longer wants to go to SNF. Will discharge home with outpatient therapy at patient preference. - Responded very well to diuresis, net -22 L. ? Discharged with Bumex 2 mg, spironolactone 25 mg, Farxiga 10 mg. ? Advised to follow-up with cardiology within 1 week. #Acute alcohol intoxication #Alcohol withdrawal #Alcohol use disorder, severe - No significant withdrawal symptoms. Treated with Valium as needed. ? Discharged with gabapentin 300 mg nightly, naltrexone 50 mcg. ? Will follow-up with [facility] within 1 week. Normocytic anemia: Improvement with hemoconcentration. Hemoglobin 9.5 Exam Data for Last 24 hours Vital signs and Labs for Last 24 Hours: Temp Pulse Resp BP Pulse Ox O2 Del Method O2 Flow Rate 98.0 F 75 18 101/65 L 93 L Room Air 2 08/13/24 08:00 08/13/24 08:00 08/13/24 08:00 08/13/24 08:56 08/13/24 08:00 08/13/24 09:00 08/12/24 18:57 Laboratory Results - last 24 hr 08/13/24 04:45: WBC 5.8, RBC 3.71 L, Hgb 10.2 L, Hct 32.4 L, MCV 87.3, MCH 27.5, MCHC 31.5 L, RDW 20.4 H, Plt Count 262, MPV 9.8, Neut % (Auto) 50.1, Lymph % (Auto) 29.0, Donley % (Auto) 15.8 H, Eos % (Auto) 3.1, Baso % (Auto) 1.7, Neut # (Auto) 2.9, Lymph # (Auto) 1.7, Donley # (Auto) 0.9, Eos # (Auto) 0.2, Baso # (Auto) 0.1, Sodium 131 L, Potassium 4.0, Chloride 89 L, Carbon Dioxide 40 H, Anion Gap 6.0, BUN 18, Creatinine 1.50 H, Estimated Creat Clear 80, Estimated GFR 48 L, Est GFR ( Amer) 58 L, Glucose 121 H D, Calcium 8.1 L, Magnesium 1.7, Total Bilirubin 0.3, AST 28, ALT 10 L, Alkaline Phosphatase 210 H, Total Protein 5.8 L, Albumin 2.7 L, Globulin 3.1, Albumin/Globulin Ratio 0.9 L I & O for Last 24 hours: Intake & Output 08/10/24 08/11/24 08/12/24 08/13/24 23:59 23:59 23:59 23:59 Intake Total 400 / 880 1390 / 1490 680 / 740 540 / 540 Output Total 3550 / 3550 3100 / 3100 4850 / 5350 1400 / 1400 Balance -3150 / -2670 -1710 / -1610 -4170 / -4610 -860 / -860 Weight 111.039 kg 108.953 kg 108.953 kg 106.254 kg Constitutional Constitutional: somnolent *Routine HEENT Exam Eye: Present PERRL *Routine Respiratory Exam Respiratory: Present CTA bilaterally; Absent accessory muscle use, wheezes or crackles *Routine Cardiovascular Exam Cardiovascular: Present RRR, Normal S1 and Normal S2; Absent murmur, gallop or rubs *Routine Abdominal Exam Abdominal: Present soft; Absent tenderness *Routine Extremities Exam Extremities: Present edema and pulses intact; Absent cyanosis *Routine Skin Exam Skin: Present intact; Absent erythema or wounds *Routine Neurological Exam Neurological: Present alert and oriented X3 Routine Psychiatric Exam Psychiatric: Present cooperative Results Data Completed and Pending Labs on day of discharge: Labs from last 24 hours 08/13/24 04:45 WBC 5.8 RBC 3.71 L Hgb 10.2 L Hct 32.4 L MCV 87.3 MCH 27.5 MCHC 31.5 L RDW 20.4 H Plt Count 262 MPV 9.8 Neut % (Auto) 50.1 Lymph % (Auto) 29.0 Donley % (Auto) 15.8 H Eos % (Auto) 3.1 Baso % (Auto) 1.7 Neut # (Auto) 2.9 Lymph # (Auto) 1.7 Donley # (Auto) 0.9 Eos # (Auto) 0.2 Baso # (Auto) 0.1 Sodium 131 L Potassium 4.0 Chloride 89 L Carbon Dioxide 40 H Anion Gap 6.0 BUN 18 Creatinine 1.50 H Estimated Creat Clear 80 Estimated GFR 48 L Est GFR ( Amer) 58 L Glucose 121 H D Calcium 8.1 L Magnesium 1.7 Total Bilirubin 0.3 AST 28 ALT 10 L Alkaline Phosphatase 210 H Total Protein 5.8 L Albumin 2.7 L Globulin 3.1 Albumin/Globulin Ratio 0.9 L DS: Diagnosis Discharge Diagnosis (1) Acute on chronic heart failure with preserved ejection fraction (HFpEF): Status: Acute Code(s): I50.33 - Acute on chronic diastolic (congestive) heart failure (2) Alcohol abuse: Status: Acute Code(s): F10.10 - Alcohol abuse, uncomplicated (3) Noncompliance with medication regimen: Status: Acute Code(s): Z91.148 - Patient's other noncompliance with medication regimen for other reason (4) Falls frequently: Status: Acute Code(s): R29.6 - Repeated falls (5) Atrial fibrillation with rapid ventricular response: Status: Acute Code(s): I48.91 - Unspecified atrial fibrillation (6) Tobacco use: Status: Acute Code(s): Z72.0 - Tobacco use Meds Home Medications and Allergies Home Medications ?Medication ?Instructions ?Recorded ?Confirmed ?Type ferrous sulfate 324 mg (65 mg 324 mg PO DAILY #90 tabs 06/15/24 08/06/24 Rx iron) tablet,delayed release metoprolol succinate 100 mg 100 mg PO DAILY #30 tabs 06/15/24 08/06/24 Rx tablet,extended release 24 hr levothyroxine 125 mcg tablet 125 mcg PO DAILYDM 07/16/24 08/06/24 History sertraline 100 mg tablet 100 mg PO DAILY 07/16/24 08/06/24 History thiamine HCl (vitamin B1) 100 mg 100 mg PO DAILY 07/16/24 08/06/24 History tablet trazodone 100 mg tablet 100 mg PO HS 07/17/24 08/06/24 History spironolactone 25 mg tablet 25 mg PO DAILY 30 days #30 tabs 07/20/24 08/06/24 Rx gabapentin 300 mg capsule 300 mg PO HS 30 days #30 caps 08/07/24 Rx naltrexone 50 mg tablet 50 mg PO DAILY 30 days #30 tabs 08/07/24 Rx bumetanide 2 mg tablet 2 mg PO DAILY 30 days #60 tabs 08/13/24 Rx dapagliflozin propanediol 10 mg 10 mg PO DAILY 30 days #30 tabs 08/13/24 Rx tablet (Farxiga) diltiazem HCl 180 mg 180 mg PO DAILY 30 days #30 caps 08/13/24 Rx capsule,extended release 24 hr pantoprazole 40 mg tablet,delayed 40 mg PO HS 30 days #30 tabs 08/13/24 Rx release rivaroxaban 10 mg tablet (Xarelto) 20 mg (2 x 10 mg) PO QPMWITHMEAL 08/13/24 Rx 30 days #60 tabs New Prescriptions to Start Prescriptions: bumetanide Justin,Jorje dapagliflozin propanediol [Farxiga] Justin,Jorje diltiazem HCl Justin,Jorje gabapentin Justin,Jorje naltrexone Justin,Jorje pantoprazole Justin,Jorje rivaroxaban [Xarelto] Justin,Jorje Allergies Allergy/AdvReac Type Severity Reaction Status Date / Time hydrochlorothiazide AdvReac Unknown Other Verified 06/15/24 10:14 Discharge Plan Disposition Patient Disposition: Home, Self-Care Condition: Fair Discharge Order Discharge Orders: Discharge Order (Routine); Ordered 08/13/24 Ordered By: Jorje Anderson Follow up Plan Follow up with: Eduardo Mas PA [Physician Human Services Professional, Cardiology] - 1 week Referral Note: please call for appointment Popeye Thomson PT [Physical Therapist, Physical Therapy] - 08/23/24 8:00 am Prescriptions/Medication Reconciliation: New naltrexone 50 mg tablet 50 mg PO DAILY 30 Days Qty: 30 0RF gabapentin 300 mg capsule 300 mg PO HS 30 Days Qty: 30 0RF dapagliflozin propanediol [Farxiga] 10 mg Tablet 10 mg PO DAILY 30 Days Qty: 30 0RF diltiazem HCl 180 mg Capsule,Extended Release 24hr 180 mg PO DAILY 30 Days Qty: 30 0RF pantoprazole 40 mg Tablet,Delayed Release (Dr/Ec) 40 mg PO HS 30 Days Qty: 30 0RF Xarelto 10 mg Tablet 20 mg PO QPMWITHMEAL 30 Days Qty: 60 0RF Continued ferrous sulfate 324 mg (65 mg iron) tablet,delayed release (DR/EC) 324 mg PO DAILY Qty: 90 0RF metoprolol succinate 100 mg tablet extended release 24 hr 100 mg PO DAILY Qty: 30 2RF sertraline 100 mg tablet 100 mg PO DAILY thiamine HCl (vitamin B1) 100 mg tablet 100 mg PO DAILY levothyroxine 125 mcg tablet 125 mcg PO DAILYDM trazodone 100 mg Tablet 100 mg PO HS spironolactone 25 mg Tablet 25 mg PO DAILY 30 Days Qty: 30 0RF bumetanide 2 mg tablet 2 mg PO DAILY 30 Days Qty: 60 0RF Discontinued Eliquis 5 mg tablet 5 mg PO BID Qty: 180 0RF digoxin 125 mcg (0.125 mg) tablet 125 mcg PO DAILY amiodarone 200 mg tablet 200 mg PO DAILY Other Ambulatory Orders: Rehab Eval, OP (Routine) Timeframe: 3 Days Facility: [facility] - Location: Physical Therapy Ordered By: Richie Parra Problem Reconciliation Problems Reviewed?: Yes Patient Discharge Instructions Patient Instructions: DI for Atrial Fibrillation, How to Prevent Falls Print Language: [place] Providers Primary Care Provider: Provider,Referral Admit Provider: Jorje Anderson Attending Provider: Jorje Anderson
== END 2024-08-13 13:45 | disposition home or self-care (01) | DRG 308 ==
LOC: ER 19:55 → 2ND 21:23
PROVIDERS: Internal Medicine Adolescent Medicine; Physician Assistant; Student in an Organized Health Care Education/Training Program; Admitting Provider Student in an Organized Health Care Education/Training Program; Emergency Provider Student in an Organized Health Care Education/Training Program; Visit Provider Student in an Organized Health Care Education/Training Program
DX: I48.0 Paroxysmal atrial fibrillation (principal); I50.23 Acute on chronic systolic (congestive) heart failure; F10.239 Alcohol dependence with withdrawal, unspecified; F10.229 Alcohol dependence with intoxication, unspecified; R29.6 Repeated falls; D64.9 Anemia, unspecified; E87.6 Hypokalemia; E83.42 Hypomagnesemia; I11.0 Hypertensive heart disease with heart failure; J44.9 Chronic obstructive pulmonary disease, unspecified; F17.210 Nicotine dependence, cigarettes, uncomplicated; Y90.8 Blood alcohol level of 240 mg/100 ml or more; Z88.8 Allergy status to other drugs, medicaments and biological substances; Z79.01 Long term (current) use of anticoagulants; Z79.890 Hormone replacement therapy; Z79.899 Other long term (current) drug therapy
CPT/HCPCS: 36415; 80048; 80053; 80061; 80162; 80307; 80320; 82962; 83735; 83880; 84100; 84443; 84484; 85025; 85610; 85730; 93005; 93306; 97110; 97162; 97166; 97530; 97535; J1939; J2060; J2405; J3411; J3475; J7120

== ENCOUNTER 2024-09-09 02:35 | Inpatient (IN) | payer MEDICAID, SELFPAY ==
[2024-09-09] VITALS (19 sets, daily range): BP systolic 98–142; BP diastolic 50–99; PULSE 73–153; RESP 18–35; TEMP 36.4–36.9; O2SAT 88–100; BMI 34.4; BMI 36.7
--- NOTE | 2024-09-09 02:35 | CT_ITS ---
PROCEDURE INFORMATION: Exam: CTA Abdomen and Pelvis With Contrast Exam date and time: 09/09/2024 3:34 AM Age: 59 years old Clinical indication: Other: Bloody diarrhea; Additional info: Bloody diarrhea, ETOH TECHNIQUE: Imaging protocol: Computed tomographic angiography of the abdomen and pelvis with contrast. Exam focused on the arteries. 3D rendering (Not supervised by radiologist): MIP and/or 3D reconstructed images were created by the technologist. Radiation optimization: All CT scans at this facility use at least one of these dose optimization techniques: automated exposure control; mA and/or kV adjustment per patient size (includes targeted exams where dose is matched to clinical indication); or iterative reconstruction. Contrast material: ISOVUE; Contrast volume: 80 ml; Contrast route: INTRAVENOUS (IV); COMPARISON: CT BONY PELVIS 05/12/2024 9:28 PM FINDINGS: Aorta: No aortic aneurysm. No aortic dissection. Celiac trunk and mesenteric arteries: No occlusion or significant stenosis. Renal arteries: No occlusion or significant stenosis. Right iliac arteries: No occlusion or significant stenosis. Left iliac arteries: No occlusion or significant stenosis. Liver: Fatty liver. Gallbladder and biliary ducts: Unremarkable. No calcified stones. No ductal dilation. Pancreas: Unremarkable. No mass. No ductal dilation. Spleen: Calcifications associated with prior granulomatous disease.. No splenomegaly. Adrenal glands: Unremarkable. No mass. Kidneys and ureters: Unremarkable. No solid mass. No hydronephrosis. Stomach and bowel: Fluid-filled small bowel compatible with enteritis. Appendix: No evidence of appendicitis. Intraperitoneal space: Trace ascites. Lymph nodes: Unremarkable. No enlarged lymph nodes. Urinary bladder: Unremarkable. No mass. Reproductive: Unremarkable as visualized. Bones/joints: Chronic appearing endplate deformities L1 and L3 with advanced degenerative change L4-L5-S1 endplates. Soft tissues: Unremarkable. IMPRESSION: No evidence of active hemorrhage into the bowel. Findings suggesting enteritis.
--- NOTE | 2024-09-09 02:44 | XR_ITS ---
PROCEDURE INFORMATION: Exam: XR Chest Exam date and time: 09/09/2024 3:25 AM Age: 59 years old Clinical indication: Other: Tachy; Additional info: Tachy [place] TECHNIQUE: Imaging protocol: Radiologic exam of the chest. Views: 1 view. COMPARISON: CT ANGIO CHEST PE PROTOCOL 07/16/2024 7:49 PM FINDINGS: Lungs: Mild chronic interstitial change. Multiple calcified lymph nodes as previously demonstrated. No consolidation. Pleural spaces: Unremarkable. No pleural effusion. No pneumothorax. Heart/Mediastinum: Unremarkable. No cardiomegaly. Bones/joints: Unremarkable. IMPRESSION: No acute findings.
--- NOTE | 2024-09-09 02:50 | ECG_ITS ---
APPROVED REPORT Exam: Resting ECG HR:151 bpm ECG Measurements Heart Rate 151 AXES QRSd 144 QRS 94 QT 300 T 89 QTc 386 Conclusion ATRIAL FIBRILLATION WITH RAPID VENTRICULAR RESPONSE RIGHT BUNDLE BRANCH BLOCK [120+ ms QRS DURATION, UPRIGHT V1, 40+ ms S IN I/aVL/V4/V5/V6] SEPTAL MYOCARDIAL INFARCTION , OF INDETERMINATE AGE [40+ ms Q WAVE IN V1/V2] No STEMI Electronically signed by : ADAM BUCIO, 09/09/2024 06:36:30
[2024-09-09] MEDS: LACTATED RINGERS 1000ML 1,000 ML 999 ML IV (02:52)
--- NOTE | 2024-09-09 02:52 | HMH.EDGENADL ---
Discharge Plan Disposition Patient Disposition: Admitted Condition: Fair Prescriptions Prescriptions: No Action ferrous sulfate 324 mg (65 mg iron) tablet,delayed release (DR/EC) 324 mg PO DAILY Qty: 90 0RF metoprolol succinate 100 mg tablet extended release 24 hr 100 mg PO DAILY Qty: 30 2RF sertraline 100 mg tablet 100 mg PO DAILY thiamine HCl (vitamin B1) 100 mg tablet 100 mg PO DAILY levothyroxine 125 mcg tablet 125 mcg PO DAILYDM trazodone 100 mg Tablet 100 mg PO HS spironolactone 25 mg Tablet 25 mg PO DAILY 30 Days Qty: 30 0RF naltrexone 50 mg tablet 50 mg PO DAILY 30 Days Qty: 30 0RF gabapentin 300 mg capsule 300 mg PO HS 30 Days Qty: 30 0RF dapagliflozin propanediol [Farxiga] 10 mg Tablet 10 mg PO DAILY 30 Days Qty: 30 0RF diltiazem HCl 180 mg Capsule,Extended Release 24hr 180 mg PO DAILY 30 Days Qty: 30 0RF pantoprazole 40 mg Tablet,Delayed Release (Dr/Ec) 40 mg PO HS 30 Days Qty: 30 0RF Xarelto 10 mg Tablet 20 mg PO QPMWITHMEAL 30 Days Qty: 60 0RF bumetanide 2 mg tablet 2 mg PO DAILY 30 Days Qty: 60 0RF Clinical Impressions Clinical Impression: Diarrhea, Alcoholism, Fecal incontinence, Hypoxic respiratory failure, Atrial fibrillation with RVR, Acute on chronic heart failure Instructions Patient Instructions: DI for Acute Abdominal Pain Print Language Print Language: Danish Discharge ED Provider: Zachery Nation General Adult HPI General Chief complaint: Abdominal Pain Stated complaint: abdominal pain Time Seen by Provider: 09/09/24 02:36 Mode of Arrival: EMS Source of Information: EMS Description of Symptoms (Recalled from ER Triage Doc. by RN): pt arrives via ems due to diarhea going on 4 days. pt reports bloodon towel when he wiped. pt is unable to report how much blood. pt has severely swollen scrotum and states that he gets around via wheelchair and niko helps take care of him. pt reprots he is down to 1 pint per day of hard liquor. History of Present Illness HPI narrative: 59-year-old male with history of alcohol abuse, HFpEF, A-fib, cor pulmonale, hypothyroid, tobacco use, COPD, hypertension, anxiety presents to the ER with EMS for diarrhea that he reports he believes is bloody. Patient reportedly has been having diarrhea for the last 4 days. He is a poor historian and reports being intoxicated on at least a pint of [place] which he states is decreased from his usual alcohol intake but states that is not enough and I have to go back up . Patient has a severely swollen scrotum but states this is not new and he does not have a specific concern about that, he is here because his diarrhea is so bad that he is incontinent to stool and he reportedly cleaned himself up with a towel and then his dog started licking it which is when he noticed it was bloody. Unclear how much blood. Patient is not lightheaded but states that he has shortness of breath with any sort of exertion. No fevers or chills, he states his abdomen is uncomfortable all over. No new chest pain or difficulty breathing but states his difficulty breathing is at baseline. He reports his primary concern is the bloody diarrhea and being incontinent to stool. He also does report on review of systems though that while he has not had fever or vomiting that he does not believe he has made any urine in the last 24 hours. Related Data Home Medications ?Medication ?Instructions ?Recorded ?Confirmed levothyroxine 125 mcg tablet 125 mcg PO DAILYDM 07/16/24 08/06/24 sertraline 100 mg tablet 100 mg PO DAILY 07/16/24 08/06/24 thiamine HCl (vitamin B1) 100 mg 100 mg PO DAILY 07/16/24 08/06/24 tablet trazodone 100 mg tablet 100 mg PO HS 07/17/24 08/06/24 Previous Rx's ?Medication ?Instructions ?Recorded ferrous sulfate 324 mg (65 mg 324 mg PO DAILY #90 tabs 06/15/24 iron) tablet,delayed release metoprolol succinate 100 mg 100 mg PO DAILY #30 tabs 06/15/24 tablet,extended release 24 hr spironolactone 25 mg tablet 25 mg PO DAILY 30 days #30 tabs 07/20/24 gabapentin 300 mg capsule 300 mg PO HS 30 days #30 caps 08/07/24 naltrexone 50 mg tablet 50 mg PO DAILY 30 days #30 tabs 08/07/24 bumetanide 2 mg tablet 2 mg PO DAILY 30 days #60 tabs 08/13/24 dapagliflozin propanediol 10 mg 10 mg PO DAILY 30 days #30 tabs 08/13/24 tablet (Farxiga) diltiazem HCl 180 mg 180 mg PO DAILY 30 days #30 caps 08/13/24 capsule,extended release 24 hr pantoprazole 40 mg tablet,delayed 40 mg PO HS 30 days #30 tabs 08/13/24 release rivaroxaban 10 mg tablet (Xarelto) 20 mg (2 x 10 mg) PO QPMWITHMEAL 08/13/24 30 days #60 tabs Allergies Allergy/AdvReac Type Severity Reaction Status Date / Time hydrochlorothiazide AdvReac Unknown Other Verified 06/15/24 10:14 [facility] Disclaimer: The information contained in this section may have been updated after the patient was seen, as this information can be updated by other users. 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 Testicular swelling, right Hypertension Tobacco abuse Alcohol abuse Tobacco use Paroxysmal atrial fibrillation Alcoholism Anxiety GERD (gastroesophageal reflux disease) Laceration of finger, left, complicated COPD (chronic obstructive pulmonary disease) Pulmonary hypertension Cirrhosis, alcoholic CHF (congestive heart failure) Hypertension Atrial fibrillation with rapid ventricular response Exposure to COVID-19 virus Surgical History History of discectomy History of cardiac radiofrequency ablation Family History Other Cancer Hypertension Stroke Substance abuse Social History Smoking Status: Never smoker alcohol intake: current alcohol intake frequency: 3 or more drinks per day substance use type: denies use current occupational status: unemployed Travel in the last 8 weeks?: None household members: significant other housing: house 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 current occupational exposures/hazards: No caffeine: Yes Other Medical History Have you received the Flu Vaccine for this season: No Have you received the Pneumonia Vaccine: No ROS Obtained: Yes Systems reviewed as appropriate & no additional complaints except as documented Per HPI Physical Exam General General appearance: alert and appears intoxicated Comment: Chronically ill-appearing Head Head exam: atraumatic and normocephalic Eye Eye exam: Present PERRL and EOMI ENT ENT exam: Present mucous membranes moist and other (Edentulous) Neck Neck exam: Present normal inspection and full ROM Chest Chest inspection: Present symmetric chest wall rise; Absent tenderness Respiratory Respiratory exam: Present normal lung sounds bilaterally; Absent respiratory distress, wheezes or stridor Cardiovascular Cardiovascular exam: Present tachycardia and irregular rhythm Abdominal Exam Abdominal exam: Present soft, distention, tenderness and guarding; Absent rebound or rigidity Comment: Body wall edema Rectal Exam Rectal exam: Present normal inspection and normal rectal tone; Absent black stool Extremities Exam Extremities exam: Present normal capillary refill and edema (Tense edema throughout the lower extremities); Absent tenderness or joint swelling Neurological Exam Neurological exam: Present alert and oriented X3; Absent motor sensory deficit Psychiatric Psychiatric exam: Present normal affect and normal mood Skin Skin exam: Present warm and dry Medical Decision Making Medical Records Medical records reviewed: Yes I reviewed the patient's medical records. Screening: Per USPSTF and CDC recommendations, given the prevalence of disease in our region, it is our hospital?s policy to screen for HIV and viral Hepatitis for all patients aged 18 and over and those with ongoing risk factors. MR Comment: Patient has previously refused help with alcohol cessation. Recent ER visit for acute on chronic heart failure Paul Inquiry Pt receiving controlled substance: No Vital Signs: 09/09/24 02:24 09/09/24 03:01 09/09/24 03:13 Temperature 98.3 F Temperature Source Oral Pulse Rate 130 H Pulse Rate [Right Radial] 137 H Respiratory Rate 18 26 H 26 H Blood Pressure 110/80 119/89 Blood Pressure [Right Arm] 142/88 H Blood Pressure Mean 94 97 Blood Pressure Mean [Right Arm] 106 Blood Pressure Position [Right Arm] Supine 02 Sat by Pulse Oximetry 96 90 L Oxygen Delivery Method Room Air Nasal Cannula Oxygen Flow Rate (LPM) 4 09/09/24 03:45 09/09/24 03:50 09/09/24 04:00 Temperature Temperature Source Pulse Rate 127 H 119 H Pulse Rate [Right Radial] Respiratory Rate 28 H 20 18 Blood Pressure 126/99 H 127/89 112/87 Blood Pressure [Right Arm] Blood Pressure Mean 106 110 95 Blood Pressure Mean [Right Arm] Blood Pressure Position [Right Arm] 02 Sat by Pulse Oximetry 88 L 89 L 88 L Oxygen Delivery Method Simple Mask Oxygen Flow Rate (LPM) 5 09/09/24 04:31 09/09/24 05:00 Temperature Temperature Source Pulse Rate 112 H 117 H Pulse Rate [Right Radial] Respiratory Rate 22 22 Blood Pressure 121/50 L 112/89 Blood Pressure [Right Arm] Blood Pressure Mean 73 94 Blood Pressure Mean [Right Arm] Blood Pressure Position [Right Arm] 02 Sat by Pulse Oximetry 94 L 100 Oxygen Delivery Method Oxygen Flow Rate (LPM) Lab Data Lab Results 09/09/24 02:50: PT 14.1 H, INR 1.29 H, Sodium 134 L, Potassium 3.5, Chloride 100, Carbon Dioxide 23, BUN 9, Creatinine 1.20, Estimated Creat Clear 102, Estimated GFR 62, Est GFR ( Amer) 75, Glucose 106 H, Lactate 2.5 H, Calcium 7.5 L, Total Bilirubin 1.3, AST 59, ALT 17, Alkaline Phosphatase 404 H, Troponin I 0.02, C-Reactive Protein 56.3 H, Total Protein 6.6, Albumin 2.9 L, Globulin 3.7 H, Albumin/Globulin Ratio 0.8 L, Lipase 90 09/09/24 03:23: WBC 7.1, RBC 3.43 L, Hgb 9.7 L, Hct 29.7 L, MCV 86.6, MCH 28.3, MCHC 32.7, RDW 23.3 H, Plt Count 189, MPV 10.3, Neut % (Auto) 60.5, Lymph % (Auto) 25.0, [place] % (Auto) 9.1, Eos % (Auto) 2.7, Baso % (Auto) 2.3 H, Neut # (Auto) 4.3, Lymph # (Auto) 1.8, [place] # (Auto) 0.6, Eos # (Auto) 0.2, Baso # (Auto) 0.2, ESR 19, NT-Pro-B Natriuret Pep 8640 H, TSH 30.00 H, Plasma/Serum Alcohol 234 H 09/09/24 04:28: VBG pH 7.31, VBG pCO2 48.0, VBG pO2 45.6 H, VBG HCO3 23.4, VBG Total CO2 24.9, VBG O2 Saturation 73.1 H, VBG Base Excess -2.9 L, VBG Lactic Acid 3.8 H 09/09/24 04:30: Stool Occult Blood Negative 09/09/24 03:23 09/09/24 02:50 Orders (Tests/Meds): ED MEDICATIONS Discontinued Medications Generic Name Dose Route Start Last Admin Trade Name Freq PRN Reason Stop Dose Admin Diltiazem HCl 20 mg 09/09/24 02:51 09/09/24 02:53 Diltiazem 25mg/5ml Vial IV 09/09/24 02:52 20 mg ONCE ONE Administration Diltiazem HCl 20 mg 09/09/24 03:53 09/09/24 03:58 Diltiazem 25mg/5ml Vial IV 09/09/24 03:54 20 mg ONCE ONE Administration Lactated Ringer's 1,000 mls @ 999 mls/hr 09/09/24 02:37 09/09/24 02:52 Lactated Ringer's 1000 Ml Bag IV 09/09/24 03:37 999 mls/hr .Q1H1M ONE Administration Piperacillin Sod/Tazobactam 100 mls @ 200 mls/hr 09/09/24 02:45 09/09/24 03:09 Sod 4.5 gm/ Sodium Chloride IV 09/09/24 03:14 200 mls/hr ONCE ONE Administration Albumin Human 12.5 gm in 50 mls @ 100 mls/hr 09/09/24 03:55 09/09/24 04:04 Albumin 25% (12.5gm) Soln 50ml Bag IV 09/09/24 04:24 100 mls/hr ONCE ONE Administration Albumin Human 12.5 gm in 50 mls @ 100 mls/hr 09/09/24 04:30 09/09/24 04:04 Albumin 25% (12.5gm) Soln 50ml Bag IV 09/09/24 04:59 100 mls/hr ONCE ONE Administration Iopamidol 80 ml 09/09/24 03:44 09/09/24 03:45 Iopamidol-370 (76%);100ml Bottle IV 09/09/24 03:45 80 ml ONCE ONE Administration Sodium Chloride 50 ml 09/09/24 03:44 09/09/24 03:45 0.9 % Sodium Chloride 50 Ml Vial IV 09/09/24 03:45 50 ml ONCE ONE Administration Sodium Chloride 10 ml 09/09/24 03:44 09/09/24 03:45 Sodium Chloride 0.9% 10ml Syr (Rad Only) IV 09/09/24 03:45 10 ml ONCE ONE Administration ORDERS Category Date Time Status CT angio abd/pel - GI Bleed Stat Cat Scan 09/09/24 02:35 Completed CXR --portable [XR chest portable] Stat Exams 09/09/24 02:44 Completed BNP [NT Pro Brain Natriuretic Pep.] Stat Lab 09/09/24 03:23 Completed C-Reactive Protein Stat Lab 09/09/24 02:50 Results Complete Blood Count Auto Diff Stat Lab 09/09/24 03:23 Completed Comprehensive Metabolic Panel Stat Lab 09/09/24 02:50 Results Diarrhea 23 Panel, PCR Stat Lab 09/09/24 02:35 Ordered Erythrocyte Sedimentation Rate Stat Lab 09/09/24 03:23 Completed Ethanol [Ethyl Alcohol] Stat Lab 09/09/24 03:23 Completed Free T4 (Free Thyroxine) Stat Lab 09/09/24 03:23 Received Lactic Acid Stat Lab 09/09/24 02:50 Completed Lipase Stat Lab 09/09/24 02:50 Results Occult Blood,Stool Stat Lab 09/09/24 04:30 Completed Prothrombin Time INR Stat Lab 09/09/24 02:50 Completed TSH [Thyroid Stimulating Hormone] Stat Lab 09/09/24 03:23 Completed Trop I [Troponin I] Stat Lab 09/09/24 02:50 Results Troponin I Q3H Lab 09/09/24 05:45 Ordered Troponin I Q3H Lab 09/09/24 08:45 Ordered UDS [Drug Screen,Urine] Stat Lab 09/09/24 02:44 Ordered Urinalysis and Microscopic Stat Lab 09/09/24 02:44 Ordered Blood Culture Stat Micro 09/09/24 03:23 Received Urine Culture Stat Micro 09/09/24 02:44 Ordered VBG [Venous Blood Gas] Stat RT 09/09/24 04:28 Completed Medical Decision Narrative: In summary, this 59-year-old male with comorbidities described in the HPI not at goal therapy presents to the emergency department today with bloody diarrhea, incontinence of stool, decreased urine output. On initial evaluation patient is intoxicated, tachycardic with irregular rhythm consistent with history of atrial fibrillation and RVR, otherwise hemodynamically stable, afebrile, patient has a distended diffusely tender abdomen with guarding, I do have some concerns for peritonitis but patient is also somewhat belligerent and not participating well with exam despite being oriented so it is unclear to me whether this is secondary to true peritonitis or just general discomfort and being grumpy. Differential diagnosis includes but is not limited to alcohol intoxication, kidney dysfunction, infectious diarrhea, bloody diarrhea, GI bleed, with patient's history of drinking is possible that he has cirrhosis, coagulopathy, I considered the possibility of SBP though I have lower suspicion for this since patient reports he has never had to have fluid taken off his abdomen and he has no fluid wave on exam, he also has no fever, also considered sepsis, urinary tract infection, arrhythmia, volume overload, among others. Ruling out most morbid conditions drove my assessment. Based on these concerns, I ordered CT imaging, broad serum workup, because patient is tachycardic with abdominal pain, diarrhea, and has had random desaturations, I believe he meets sepsis criteria so blood cultures have also been added to workup. He is receiving 1 L of IV fluids, not a full 30 mL/KG bolus because I do not want to further fluid overload him since he has significant body wall edema. He is receiving Zosyn for broad-spectrum intra-abdominal antibiotic coverage. ECG personally interpreted demonstrates atrial fibrillation RVR, rate 151, normal axis, normal QTc, no STEMI. RVR has been treated with diltiazem multiple times to gain control of his heart rate. He has come down from the 140s to 150s down to the 110s to 120s. Labs personally reviewed demonstrate no leukocytosis, anemia similar to prior, normal platelets, PT/INR elevated worse from previous, CMP not acutely actionable patient does have elevated lactic further supporting my concerns for sepsis. Alk phos is elevated at 404 but no other transaminitis, initial troponin 0.02 likely secondary to rapid heart rate. CRP elevated at 56.3, improved compared to previous, BNP 8640 down from early August but still high. Patient has low albumin and appears to be intravascularly depleted therefore albumin is being administered, since he is already tachycardic and intravascularly depleted I am not going to administer diuretics at this time as I do not want to further deplete him. Lipase normal at 90 reassuring against pancreatitis, urine studies pending. Stool occult negative. XR personally interpreted demonstrates [place] edema but no lobar infiltrate, see radiology read for final interpretation. CT imaging personally interpreted demonstrates no evidence of bowel obstruction or perforation, I do not appreciate active intraluminal GI bleeding, no significant free fluid indicative of ascites, see radiology read for final interpretation which discusses findings of enteritis. Patient had been on nasal cannula but continued to have oxygen saturations only in the upper 80s despite being put on 4 L. Because he was breathing through both his mouth and nose he was placed on a mask and his oxygen saturation is currently 93%. Tachycardia has also improved though he remains in A-fib. VBG resulted and does not demonstrate any hypercarbia, normal pH. Patient was saturating 100% on the mask so he was transitioned back to nasal cannula starting at 6 L. He is tolerating this well at this time. Diarrhea panel pending. Patient requires admission to the hospital for continued management of volume overload, diarrhea, hypoxic respiratory failure. He is not interested in alcohol cessation. I do have concerns about his home living situation as well since he was cleaning up stool all of his body with a towel that he then threw on the floor and his dog was licking it. Reportedly a Niko helps him out at home. I discussed this case with the hospitalist including my concerns for his overall clinical picture, social situation, I explained that I thought patient would likely be appropriate for diuresis shortly now that he has had albumin to hopefully pull extravascular volume to be intravascular. I also explained his progression with oxygen support including currently being improved. Patient was graciously accepted for admission to the hospitalist for continued management. Admitted in improved condition. Critical Care Critical Care Time Critical Care Time: Yes Attestation: On 09/09/24, the high probability of a clinically significant, sudden or life threatening deterioration of the following system(s) required my full and direct attention, intervention and personal management. The time I documented below is in addition to time spent performing reported procedures but includes the following listed in this critical care notation. Total Time Total Critical Care Time: 35
--- OUTSIDE RECORDS SUMMARY | 2024-09-09 02:54 | XMS_ITS | Encounter Summary ---
Author Organization [facility] ([place], [place], [place], [place]) Address [address] [place] [address] Care Team Providers Care Sales And Marketing Specialist Name Role Phone Unavailable Primary Care Provider Unavailabl e Encounter Details Date Type Department Care Team (Late st Contact Info) Description 04/14/2019 Transcribed Document [facility] Family Medicine [facility] [place] [address] ProviderSharon MD [facility] [place] [address] Social History Tobacco Use Types Packs/Day Years Used Date Smoking Tobacco: Never Assessed Sex and Gender Information Value Date Recorded Sex Assigned at Not on file Legal Sex Male 6:54 PM CDT Gender Identity Not on file Sexual Orientation Not on file documented as of this encounter Miscellaneous Notes * Cerner Conversion Note - Historical ProviderMD - 04/14/2019 9:56 AM INPATIENT CARE MANAGER RN Valuables and Belongings Entered On: 04/14/2019 11:23 EST Performed On: 04/14/2019 9:56 EST by SYLVAIN FELICIANO RN Valuables and Belongings Valuables and Belongings : Clothing, Personal items Clothing : Common streetwear Clothing Disposition : Bedside, With patient Personal Items : Cell phone Personal Items Disposition : Bedside, With patient SYLVAIN FELICIANO RN - 04/14/2019 11:23 EST documented in this encounter Plan of Treatment Not on file documented as of this encounter Visit Diagnoses Not on filedocumented in this encounter
--- OUTSIDE RECORDS SUMMARY | 2024-09-09 02:54 | XMS_ITS | Clinical Summary ---
Author Organization Healthcare Address [address] [place] [address] Care Team Providers Care Netezza Architect Name Role Phone Casey Felix MD Primary Care Provider [phone] Dotty Askew MD Unavailable [phone] Allergies Active Allergy Reactions Criticality Noted Date [...] by mouth every 6 (six) hours. 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 [place] [address] Jakub Malave MD 07/14/2024 Telephone [facility] [address], [address] [place] [id number] Isabella Jordan RN from Last 3 Months Immunizations Immunization Administration Dates Next Due Tdap 05/13/2024,01/22/2023 Family History Medical History Relation Name Comments Hypertension Father Heart attack Mother Hypertension Mother Stroke Mother Sudden Mother Hypertension Other Colon cancer Son Relation Name Status Comments Father Mother Other Son Social History Tobacco Use Types Packs/Day Years Used Date Smoking Tobacco: Every Day Cigarettes 2 42.8 Started: 12/08/1981 Smokeless Tobacco: Never Tobacco Cessation:Ready [...] Never 05/13/2024 How often do you attend buddhism or caodaism serv ices? Never 05/13/2024 Do you belong to any clubs o r organizations such as buddhism groups, unions, fraternal or athletic groups, or [...] and heating? Patient unable to answer 05/13/2024 [facility] - Occupational [...] place to sleep or slept in a mcfp (including now)? No 12/09/2023 Housing Stability Vital Sign Answer Myron e Recorded In the last 12 months, was t here a time when you were not able to pay the mortgage or rent on time? No 05/13/2024 Number of Times Moved in the Last Year Not on fi le 05/13/2024 At any time in the past 12 m [facility], were you homeless or living in a mcfp (including now)? No 05/13/2024 CAGE ASSESSMENT Answer [...] drink first t olivia in the morning (EYE-WAXED BAG 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) to steady your nerves or to get [...] Care Team (Late st Contact Info) Description 10/07/2024 3:00 PM EDT Office Visit [facility] [place] [address] [place] [address] Jakub Malave MD [address] [place] [address] Health Maintenance Due Date Last Done Comments [facility]-Bone Density Scan 1965 [facility]-Depression Screening 1965 [facility]-Infant/Child/Adol SDOH Screenings 1965 [facility]-Hepatitis A Vaccines (1 of 2 - Risk 2-dose series) 02/23/1984 [facility]-Hepatitis B Vaccines (1 of 3 - 19+ 3-dose series) 02/23/1984 [facility]-Pneumococcal Vaccine: 50 + Years (1 of 2 - PCV) 02/23/1984 CT Colonography 2010 Colonoscopy 2010 FIT-DNA 2010 FIT 2010 FOBT 2010 Sigmoidoscopy 2010 [facility]-Colorectal Cancer Screening 2010 [facility]-Zoster Vaccines (1 of 2) 2015 AWH-BXHMW-91 Vaccine (2 - Margarita risk series) 08/19/2020 07/22/2020 [facility]-Influenza Vaccine (#1) 2024 [facility]- SDOH Screenings 11/13/2024 [facility]-Adult SDOH [...] this topic Medical Devices Implanted Type Area Plant Operations Worker Device Identifier Shelf Expiration Date Model / Serial / Lot Nail 1.5 Intertan 11.5mm X 44cm 130d Left - S. - [id number] Implanted:Qty: 1 on 05/14/2024 by Jai Joyce MD at [facility] Left: Femur [id number] 08/06/2032 [id number] / . / [id number] Lag/Comp Screw Kit 100/95 - S. - [id number] Implanted:Qty: 1 on 05/14/2024 by Jai Joyce MD at [facility] Left: Femur [id number] 07/29/2033 [id number] / . / [id number] Screw Trigen 5.0mm For Metanail 52.5mm - S. - [id number] Implanted:Qty: 1 on 05/14/2024 by Jai Joyce MD at [facility] Left: Femur [id number] 09/20/2033 [id number] / . / [id number] Screw Trigen 5.0mm Internal Capture 75mm - S. - [id number] Implanted:Qty: 1 on 05/14/2024 by Jai Joyce MD at [facility] Left: Femur [id number] 08/09/2033 [id number] / . / [id number] Procedures Procedure Name Priority Date/Time Associated Diagnosis Comments CT ANGIO CHEST STAT 12/09/2023 12:43 AM EDT HEPATITIS C ANTIBODY - ED W/REFLEX TO HCV QUANT PCR STAT 12/08/2023 10:35 PM EDT ED HIV 1/2 ANTIBODY/ANTIGEN SCREEN WITH REFLEX TO HIV I/II DIFFERENTIATION STAT 12/08/2023 10:35 PM EDT from Last 3 Months or Most Recently Relevant to Health Maintenance Results * CT Angio Chest (12/09/2023 12:43 AM [...] 12/09/2023 1:44 AM Final report signed by Rohna Babin MD on 12/09/2023 1:53 AM Narrative [...] HIV 1/2 Differentiation (12/08/2023 10:35 PM EDT) [facility] HIV 1 & 2 Antibody/Antigen Screen Non Reactive Non Reactive 12/08/2023 11:31 PM EDT [facility] Comment:Screening for HIV 1 & 2 antibodies, and P24 antigen is NONREACTIVE. No confirmatory testing is required. Blood Venous blood specimen / Unknown Venipuncture / Unknown 12/08/2023 10:35 PM EDT 12/08/2023 10:45 PM EDT Result Brittney Payne MD LAB BLOOD ORDERABLES Final Resul t [facility] [address] [place] [address] * Hepatitis C Antibody - ED (12/08/2023 10:35 PM EDT) Pathologist [facility] Hepatitis C Antibody Negative Negative 12/08/2023 11:28 PM EDT [facility] Blood Venous blood specimen / Unknown Venipuncture / Unknown 12/08/2023 10:35 PM EDT 12/08/2023 10:45 PM EDT us Ivana Payne MD LAB BLOOD ORDERABLES Final Resul t [facility] [address] [place] [address] from Last 3 Months or Most Recently Relevant to Health Maintenance [place] [id number] Advance Directives * Full Code (Latest Code Status on File) Date Activated Date Inactivated Comments 05/13/2024 3:57 AM 06/01/2024 6:26 PM * Full Code Date Activated Date Inactivated Comments 12/09/2023 3:00 AM 01/03/2024 1:37 PM Question Answer Comments Patient has decision-making capacity? Yes Care Teams Netezza Architect Relationship Specialty Start Date End Date Casey Felix MD [address] [place] [address] PCP - General 09/05/20 Dotty Asekw MD [address] [place] [address] Consulting Physician Pediatric Cardiology 09/05/20
--- OUTSIDE RECORDS SUMMARY | 2024-09-09 02:54 | XMS_ITS | Encounter Summary ---
Author Organization [employer] ([place], [place], [place], [place]) Address [address] [place] [address] Care Team Providers Care Change Management Name Role Phone Unavailable Primary Care Provider Unavailabl e Encounter Details Date Type Department Care Team (Late st Contact Info) Description 04/14/2019 Transcribed Document [facility] [place] [facility] [place] [address] ProviderSharon MD [address] [place] [address] Social History Tobacco Use Types Packs/Day Years Used Date Smoking Tobacco: Never Assessed Sex and Gender Information Value Date Recorded Sex Assigned at Not on file Legal Sex Male 6:54 PM CDT Gender Identity Not on file Sexual Orientation Not on file documented as of this encounter Miscellaneous Notes * Cerner Conversion Note - Sharon ProviderMD - 04/14/2019 10:45 AM SOLE PAINTER On Going Discharge Planning Entered On: 04/14/2019 10:47 EST Performed On: 04/14/2019 10:45 EST by JUS MATAMOROS Rn-Eyewear Manufacturing SupervisorInformation Technology Administrator Progress Note Discharge Arrangements : Patient Post-Acute [...] Meeting Medical Necessity : Yes JUS MATAMOROS Rn-Eyewear Manufacturing Supervisor - 04/14/2019 10:45 EST Narrative Progress Note Narrative Progress Note : Day 5 - Pt on transfer to [facility] s/p ablation on 04/13/19; NSR; heparin/dexa gtts off; 02=2L; pt will need OLOP when medically stable for d/c; transport home with S.O.Gracie Chowdary. Historical Progress Note : Day 4 - Heparin gtt; Dexa gtt; pt off the unit for ablation; anticipate d/c home with S.O. when stable; OLOP consult on d/c. JUS MATAMOROS Rn-Eyewear Manufacturing Supervisor - 04/13/19 14:01:56 Anticipate pt will d/c home with S.O. when stable; OLOP consult when ready for d/c. JUS MATAMOROS Rn-Eyewear Manufacturing Supervisor - 04/12/19 12:03:20 JUS MATAMOROS Rn-Eyewear Manufacturing Supervisor - 04/14/2019 10:45 EST documented in this encounter Plan of Treatment Not on file documented as of this encounter Visit Diagnoses Not on filedocumented in this encounter
--- OUTSIDE RECORDS SUMMARY | 2024-09-09 02:54 | XMS_ITS | Encounter Summary ---
Author Organization [employer] ([place], [place], [place], [place]) Address [address] [place] [address] Care Team Providers Care Telephone Operator Name Role Phone Unavailable Primary Care Provider Unavailabl e Encounter Details Date Type Department Care Team (Late st Contact Info) Description 04/15/2019 Transcribed Document [facility] [place] Medicine [facility] [place] [address] ProviderSharon MD [address] [place] [address] Social History Tobacco Use Types Packs/Day Years Used Date Smoking Tobacco: Never Assessed Sex and Gender Information Value Date Recorded Sex Assigned at Not on file Legal Sex Male 6:54 PM CDT Gender Identity Not on file Sexual Orientation Not on file documented as of this encounter Miscellaneous Notes * Cerner Conversion Note - Sharon ProviderMD - 04/15/2019 12:32 PM PROPERTY ADJUSTER Patient: RAUDEL ZEPEDA Age: 54 Years Sex: [...] states he had it done here at [facility], however there are no available records of this procedure here. He reports having intermittent SVT for the last 2 months, for which he went to his primary care for 1 week ago. His primary care referred him back to Dr. Mathews who is his primary enrobing machine operator. When he arrived at Dr. Mathews's office [...] A call was then placed to our enrobing machine operator consulting psychologist who recommended amiodarone infusion and transfer for [...] - Within 1 month ERASMO MELENDEZ (REF), -[facility] - Within 2 to 3 days Discharge [...] MONTES DE OCA MD-CAR (call in AM 2/8) - TRACIT, DAMASO ARCEO MD-ANS MAK SEALS MD-ANS Current Diet Order Diet, Adult - Ordered -- Start: 04/13/19 13:19:00 EST, Food Consistency: Regular texture, 60 gm carbs:1531-1750 hilary, Isolation: Standard Precautions Follow Up Labs/Studies [...] BUCHANAN DO-INT 04/14/2019 10:00 EST [3] [facility] Consult; IRVING HERMAN APRN 04/09/2019 19:55 EST Electronically signed by [facility] Conversion Wind Commissioning Technician Cerner at 06/19/2022 4:29 PM CDT documented in this encounter Plan of Treatment Not on file documented as of this encounter Visit Diagnoses Not on filedocumented in this encounter
--- OUTSIDE RECORDS SUMMARY | 2024-09-09 02:54 | XMS_ITS | Encounter Summary ---
Author Organization [employer] ([place], [place], [place], [place]) Address [address] [place] [address] Care Team Providers Care Communications Equipment Supervisor Name Role Phone Unavailable Primary Care Provider Unavailabl e Encounter Details Date Type Department Care Team (Late st Contact Info) Description 04/14/2019 Transcribed Document [facility] [place] [facility] [place] [address] ProviderSharon MD [address] [place] [address] Social History Tobacco Use Types Packs/Day Years Used Date Smoking Tobacco: Never Assessed Sex and Gender Information Value Date Recorded Sex Assigned at Not on file Legal Sex Male 6:54 PM CDT Gender Identity Not on file Sexual Orientation Not on file documented as of this encounter Miscellaneous Notes * Cerner Conversion Note - Sharon ProviderMD - 04/14/2019 9:55 AM SINTERING PLANT SUPERVISOR Evaluation, Occupational Therapy Entered On: 04/14/2019 14:29 [...] also with h/o alcohol/tobaccoa abuse STACEY MURDOCK OTR/Kavni - 04/14/2019 14:18 EST General Status Patient Received Status : Up in chair, Other: tele, pulse ox, PT/student present Treatment Start Time : 04/14/2019 14:05 EST Patient Left Status : RN/PCT informed, All needs met and within reach, Other: pt left walking with PT RN/PCT Informed Comment : RN ok'd to tx, ID and verified Treatment End [...] Bearing Status : As tolerated STACEY MURDOCK CHEPE/Kavin - 04/14/2019 14:18 EST Functional Mobility Mobility [...] Sensory Response Comment : pt reports intact STACEY MURDOCK CHEPE/Kavin - 04/14/2019 14:18 EST Cognition Assessment, OT [...] STACEY MURDOCK OTR/Kavin - 04/14/2019 14:18 EST Logistics Vice President Goals, OT Dressing, Lower Body LTG Grid [...] Eval Low Complexity : 1 STACEY MURDOCK, OTR/L - 04/14/2019 14:18 EST documented in this encounter Plan of Treatment Not on file documented as of this encounter Visit Diagnoses Not on filedocumented in this encounter
--- OUTSIDE RECORDS SUMMARY | 2024-09-09 02:54 | XMS_ITS | Encounter Summary ---
Author Organization [employer] ([place], [place], [place], [place]) Address [address] [place] [address] Care Team Providers Care Associate Of Science In Nursing Name Role Phone Unavailable Primary Care Provider Unavailabl e Encounter Details Date Type Department Care Team (Late st Contact Info) Description 04/14/2019 Transcribed Document [facility] [place] [facility] [place] [address] ProviderSharon MD [address] [place] [address] Social History Tobacco Use Types Packs/Day Years Used Date Smoking Tobacco: Never Assessed Sex and Gender Information Value Date Recorded Sex Assigned at Not on file Legal Sex Male 6:54 PM CDT Gender Identity Not on file Sexual Orientation Not on file documented as of this encounter Miscellaneous Notes * Cerner Conversion Note - Sharon Phillips MD - 04/14/2019 7:44 AM HAND TIRE TRIMMER Patient: RAUDEL ZEPEDA Age: 54 years Sex: Male : 1965 Associated Diagnoses: None Author: JEANNE CONLEY MD-CAR Basic Information Photographic Lithographer: Bisi Subjective NAD Health Status Allergies: Allergic [...] influenza virus vaccine, inactivated: 0.5 mL, IntraMuscular, [id number] Documented Medications Documented Metoprolol Tartrate 100 mg [...] All Problems Alcohol abuse / SNOMED CT 94999262 / Confirmed Anxiety / SNOMED CT 32849117 / Confirmed History of obstructive sleep apnea / IMO 31739029 / Confirmed Hypertension / SNOMED CT 7088789203 / Confirmed Hypothyroid / SNOMED CT 20497214 / Confirmed Smoker / SNOMED CT 252101507 / Confirmed SVT - Supraventricular tachycardia / SNOMED CT 3784355031 / Confirmed, Active Problems (7) Alcohol abuse [...] of motion, Normal strength. Integumentary: Warm, Dry, [place], Intact. Neurologic: Alert, Oriented. Psychiatric: Cooperative, Appropriate [...]
--- OUTSIDE RECORDS SUMMARY | 2024-09-09 02:54 | XMS_ITS | Referral Summary ---
Author Organization [employer] ([place], [place], [place], [place]) Address [address] [place] [address] Care Team Providers Care Seed Sorter Name Role Phone Unavailable Primary Care Provider [...]
--- OUTSIDE RECORDS SUMMARY | 2024-09-09 02:54 | XMS_ITS | Encounter Summary ---
Author Organization [employer] ([place], [place], [place], [place]) Address [address] [place] [address] Care Team Providers Care Contract Loader Name Role Phone Unavailable Primary Care Provider Unavailabl e Encounter Details Date Type Department Care Team (Late st Contact Info) Description 04/14/2019 Transcribed Document [facility] [place] Medicine [facility] [place] [address] ProviderSharon MD [address] [place] [address] Social History Tobacco Use Types Packs/Day Years Used Date Smoking Tobacco: Never Assessed Sex and Gender Information Value Date Recorded Sex Assigned at Not on file Legal Sex Male 6:54 PM CDT Gender Identity Not on file Sexual Orientation Not on file documented as of this encounter Miscellaneous Notes * Cerner Conversion Note - Sharon ProviderMD - 04/14/2019 9:55 AM FRAUD EXAMINER Evaluation, Physical Therapy Entered On: 04/14/2019 15:53 [...] and heart catheter procedure was done at [facility] 04/13/2019. Pt reports previously coming to [facility] for an ablation before in the past but [facility] has no record of this [...] EST Treatment Time : 22 Minute(s) JOAQUIN NUR Student PT - 04/14/2019 15:14 EST History and Environment Stairs Inside Comment : Stays on main level LELIA JEWELL, PT - 04/14/2019 15:55 EST Living Situation, [...] : pt presentation was stable. JOAQUIN NUR, Kaylan PT - 04/14/2019 15:14 EST Upper Extremity Upper Extremity Dominance : Right Right UE Active ROM : WFL Right UE Strength : [facility] JOAQUIN NUR, Student PT - 04/14/2019 15:14 EST Right Upper Extremity Detailed ROM Grid Right Shoulder Flexion Range Right Elbow Flexion Range Right Elbow Extension Range Right Wrist Flexion Range Active : WFL WFL [facility] JOAQUIN AVILA, Student PT - 04/14/2019 15:14 EST JOAQUIN NUR, Student PT - 04/14/2019 15:14 EST JOAQUIN NUR, Student PT - 04/14/2019 15:14 EST JOAQUIN NUR, Student PT - 04/14/2019 15:14 EST Right Wrist Extension Range Right Forearm Pronation Range Right Forearm Supination Range Active : WFL L [facility] JOAQUIN NUR, Student PT - 04/14/2019 15:14 EST JOAQUIN NUR, Student PT - 04/14/2019 15:14 EST JOAQUIN NUR, Student PT - 04/14/2019 15:14 EST Left UE Active ROM : WFL Left UE Strength : JOAQUIN GRIFFIN, Student PT - 04/14/2019 15:14 EST Left Upper Extremity Detailed ROM Grid Left Shoulder Flexion Range Left Elbow Flexion Range Left Elbow Extension Range Left Wrist Flexion Range Active : WFL WFL WFL [facility] JOAQUIN NUR, Student PT - 04/14/2019 15:14 EST JOAQUIN NUR, Student PT - 04/14/2019 15:14 EST JOAQUIN NUR, Student PT - 04/14/2019 15:14 EST JOAQUIN NUR, Student PT - 04/14/2019 15:14 EST Left Wrist Extension Range Rehab Left Forearm Pronation Range Left Forearm Supination Range Active : WFL [facility] JOAQUIN NUR, Student PT - 04/14/2019 15:14 EST JOAQUIN NUR, Student PT - 04/14/2019 15:14 EST JOAQUIN NUR, Student PT - 04/14/2019 15:14 EST Upper Extremity Strength Impaired : Yes Right UE Strength : WFL Left UE Strength : [facility] JOAQUIN NUR, Student PT - 04/14/2019 [...] Student PT - 04/14/2019 15:14 EST Hand K 12 Principal Test : pt is 3/5 symmetrically. JOAQUIN NUR, Student PT - 04/14/2019 15:14 EST Lower Extremity LLE Active ROM : [facility] LELIA JEWELL, PT - 04/14/2019 15:55 EST LELIA JEWELL, PT - 04/14/2019 15:55 EST RLE ROM Grid Hip Flexion (0-125) Knee Flexion (0-140) Knee Extension (0-0) Ankle Dorsiflexion (0-20) Active : WFL [facility] JOAQUIN NUR, Student PT - 04/14/2019 [...] assistance Sit to Supine : Supervision/set-up JOAQUIN NUR Student PT - 04/14/2019 15:14 EST Sit [...] LELIA JEWELL, PT - 04/14/2019 15:55 EST Resident Care Assistant Goals Mobility/Bed Mobility LTG PT Grid Goal [...] was cooperative and open to treatment. JOAQUIN NUR Student PT - 04/14/2019 15:14 EST Additional [...] improve gait steadiness improve LLE strength JOAQUIN NUR Student PT - 04/14/2019 15:14 EST Pain Assessment Pain Score Pre-Intervention : 7 Pain Score Post-Intervention. : 0 Pain Comment : pt expressed having pain in two places. One was in pts back (7/10) and behind the knee (7/10) but both were relieved with gait and [...] NUR Student PT - 04/14/2019 15:14 EST [place] PT Charges PT Eval Moderate Complexity : 1 JOAQUIN NUR Student PT - 04/14/2019 15:14 EST Electronically signed by [facility] Conversion Database Marketing Analyst Cerner at 06/19/2022 4:31 PM CDT documented in this encounter Plan of Treatment Not on file documented as of this encounter Visit Diagnoses Not on filedocumented in this encounter
--- OUTSIDE RECORDS SUMMARY | 2024-09-09 02:54 | XMS_ITS | Encounter Summary ---
Author Organization Healthcare Address [address] [place] [address] Care Team Providers Care Vp Customer Service Name Role Phone Casey Felix MD Primary Care Provider [phone] Dotty Askew MD Unavailable [phone] Encounter Details Date Type Department Care Team (Late st Contact Info) Description 09/01/2024 Telephone [facility] [place] [address] [facility] [place] [address] Jakub Malave MD [address] [place] [address] Social History Tobacco Use Types Packs/Day Years Used Date Smoking Tobacco: Every Day Cigarettes 2 42.8 Started: 12/08/1981 Smokeless Tobacco: Never Alcohol Use [...] Never 05/13/2024 How often do you attend yazdanism or yarsanism serv ices? Never 05/13/2024 Do you belong to any clubs o r organizations such as yazdanism groups, unions, fraternal or athletic groups, or [...] and heating? Patient unable to answer 05/13/2024 [facility] Occupational [facility] Questionnaire Answer [...] place to sleep or slept in a nursing home (including now)? No 12/09/2023 Housing Stability Vital Sign Answer Myron e Recorded In the last 12 months, was t here a time when you were not able to pay the mortgage or rent on time? No 05/13/2024 Number of Times Moved in the Last Year Not on fi le 05/13/2024 At any time in the past 12 m [facility], were you homeless or living in a nursing home (including now)? No 05/13/2024 CAGE ASSESSMENT Answer [...] drink first t olivia in the morning (EYE-COMPUTER CLERK) to steady your nerves or to get [...] Description 10/07/2024 3:00 PM EDT Office Visit [facility] [place] [address] [place] [address] Jakub Malave MD [address] [place] [address] documented as of this encounter Visit Diagnoses Not on filedocumented in this encounter Additional Health Concerns Assessment Noted Time A fall risk assessment has been complete d for the patient 09/05/2020 11:56 AM EDT A Body Mass Index follow-up plan has been documented for the patient 06/01/2024 11:16 AM EDT documented as of this encounter Care Teams Vp Customer Service Relationship Specialty Start Date End Date Casey Felix MD [address] [place] [address] PCP - General 09/05/20 Dotty Askew MD [address] [place] [address] Consulting Physician Pediatric Cardiology 09/05/20 documented as of this encounter
--- OUTSIDE RECORDS SUMMARY | 2024-09-09 02:54 | XMS_ITS | Encounter Summary ---
Author Organization [employer] ([place], [place], [place], [place]) Address [address] [place] [address] Care Team Providers Care Frame Stripper Name Role Phone Unavailable Primary Care Provider Lilia tsang Encounter Details Date Type Department Care Team (Late st Contact Info) Description 04/14/2019 Transcribed Document [facility] [place] [facility] [place] [address] ProviderSharon MD [address] [place] [address] Social History Tobacco Use Types Packs/Day Years Used Date Smoking Tobacco: Never Assessed Sex and Gender Information Value Date Recorded Sex Assigned at Not on file Legal Sex Male 6:54 PM CDT Gender Identity Not on file Sexual Orientation Not on file documented as of this encounter Miscellaneous Notes * Cerner Conversion Note - Sharon ProviderMD - 04/14/2019 10:00 AM BATTERYMAN Patient: RAUDEL ZEPEDA Age: 54 years Sex: [...] History of obstructive sleep apnea / IMO [id number] / Confirmed SVT - Supraventricular tachycardia / SNOMED CT [id number] / Confirmed, Active Problems (7) Alcohol abuse [...] 107 (APR 13 15:45) MAP 113 (APR 14:09) 80 (APR 14 02:00) 132 (APR 13 [...] L 36.5 (APR 10) L 36.2 (APR 09) Plt 251 (APR 14) 214 (B 11) 199 (B 10) 218 (APR 09) Na L 134 (APR 14) L 132 (APR 11) L 132 (APR 10) L 133 (APR 09) K 4.6 (APR 14) 4.2 (B ) 4.1 (APR 10) 3.5 (APR 09) Cl L 100 (APR 14) L 100 (APR 13) L 99 (APR 10) L 97 (FEB 09) CO2 31 (FEB 12) 30 (FEB [...] 0.5 (B 12) 0.6 (FEB 10) 0.7 (FEB 09) 0.8 (B 08) PTN 6.9 (FEB 12) 6.5 (FEB 10) L 6.2 (FEB 09) L 6.1 (B 08) ALB L 2.6 (FEB 12) L 2.4 (FEB 10) L 2.5 (B 09) L 2.4 (B 08) Lipase 124 (B 07) Troponin <0.015 (B 08) 0.022 (APR 09) [...] pt, rn time 34misn Electronically signed by Phil, [facility] Conversion Classifications Officer Cc/Cm Cerner at 06/19/2022 4:41 PM CDT documented in this encounter Plan of Treatment Not on file documented as of this encounter Visit Diagnoses Not on filedocumented in this encounter
--- OUTSIDE RECORDS SUMMARY | 2024-09-09 02:54 | XMS_ITS | Encounter Summary ---
Author Organization [employer] ([place], [place], [place], [place]) Address [address] [place] [address] Care Team Providers Care Voucher Examiner Name Role Phone Unavailable Primary Care Provider Unavailabl e Encounter Details Date Type Department Care Team (Late st Contact Info) Description 04/15/2019 Transcribed Document [facility] [place] [facility] [place] [address] ProviderSharon MD [address] [place] [address] Social History Tobacco Use Types Packs/Day Years Used Date Smoking Tobacco: Never Assessed Sex and Gender Information Value Date Recorded Sex Assigned at Not on file Legal Sex Male 6:54 PM CDT Gender Identity Not on file Sexual Orientation Not on file documented as of this encounter Miscellaneous Notes * Cerner Conversion Note - Sharon ProviderMD - 04/15/2019 11:47 AM MAINTENANCE TEAM LEADER On Going Discharge Planning Entered On: 04/15/2019 11:52 EST Performed On: 04/15/2019 11:47 EST by YULI PATEL, RN-Environmental Program Manager ED Care Management Progress Note Discharge [...] with D/C Plan? : Yes YULI PATEL, RN-Environmental Program Manager ED - 04/15/2019 11:47 EST Narrative Progress Note Narrative Progress Note : ANN talked with Dr. Nagel and she has ordered a [facility]OP consult and is planning to discharge pt following this consult. CM called referral to [facility] p [phone] f [phone]. CM faxed facesheet to [facility] intake earlier today. [facility] on floor to see pt. Discussed DCP with BS RN, Marla and DC RN, Neena. SO planning to come to hospital this afternoon to transport pt to home. No additional CM needs identified at this time. Historical Progress Note : Day 5 - Pt on transfer to [facility] s/p ablation on 04/13/19; NSR; heparin/dexa gtts off; 02=2L; pt will need OLOP when medically stable for d/c; transport home with S.O.Gracie Chowdary. JUS MATAMOROS Rn-Environmental Program Manager - 04/14/19 10:47:49 Day 4 - Heparin gtt; Dexa gtt; pt off the unit for ablation; anticipate d/c home with S.O. when stable; OLOP consult on d/c. JUS MATAMOROS Rn-Environmental Program Manager - 04/13/19 14:01:56 Anticipate pt will d/c home with S.O. when stable; OLOP consult when ready for d/c. JUS MATAMOROS Rn-Environmental Program Manager - 04/12/19 12:03:20 YULI PATEL RN-Environmental Program Manager ED - 04/15/2019 11:47 EST documented in this encounter Plan of Treatment Not on file documented as of this encounter Visit Diagnoses Not on filedocumented in this encounter
--- OUTSIDE RECORDS SUMMARY | 2024-09-09 02:54 | XMS_ITS | Encounter Summary ---
Author Organization [employer] ([place], [place], [place], [place]) Address [address] [place] [address] Care Team Providers Care Rn X Ray Name Role Phone Unavailable Primary Care Provider Unavailabl e Encounter Details Date Type Department Care Team (Late st Contact Info) Description 04/15/2019 Transcribed Document [facility] [place] [facility] [place] [address] ProviderSharon MD [address] [place] [address] Social History Tobacco Use Types Packs/Day Years Used Date Smoking Tobacco: Never Assessed Sex and Gender Information Value Date Recorded Sex Assigned at Not on file Legal Sex Male 6:54 PM CDT Gender Identity Not on file Sexual Orientation Not on file documented as of this encounter Miscellaneous Notes * Cerner Conversion Note - Sharon ProviderMD - 04/15/2019 4:10 PM LAST REPAIRER Discharge Summary, PT Entered On: 04/15/2019 16:10 [...] SCOTT BILLINGS PTA - 04/15/2019 16:10 EST Assisted Goals Mobility/Bed Mobility LTG PT Grid Goal [...] 04/15/2019 16:10 EST Electronically signed by Phil [facility] Conversion Can Bander Operator Cerner at 06/19/2022 4:30 PM CDT documented in this encounter Plan of Treatment Not on file documented as of this encounter Visit Diagnoses Not on filedocumented in this encounter
--- OUTSIDE RECORDS SUMMARY | 2024-09-09 02:54 | XMS_ITS | Encounter Summary ---
Author Organization [employer] ([place], [place], [place], [place]) Address [address] [place] [address] Care Team Providers Care Certified Coding Specialist Name Role Phone Unavailable Primary Care Provider Lilia tsang Encounter Details Date Type Department Care Team (Late st Contact Info) Description 04/15/2019 Transcribed Document [facility] [place] [facility] [place] [address] ProviderSharon MD [facility] [place] [address] Social History Tobacco Use Types Packs/Day Years Used Date Smoking Tobacco: Never Assessed Sex and Gender Information Value Date Recorded Sex Assigned at Not on file Legal Sex Male 6:54 PM CDT Gender Identity Not on file Sexual Orientation Not on file documented as of this encounter Miscellaneous Notes * Cerner Conversion Note - Historical ProviderMD - 04/15/2019 10:16 AM WHITE WASHER PILER Attempt to Treat, OT Entered On: 04/15/2019 [...] CHARLEY CAROLINA OTR/Kavin - 04/15/2019 12:24 EST Electronically signed by Radha Villarreal Conversion Private Branch Exchange Service Advisor Cerner at 06/19/2022 4:32 PM CDT documented in this encounter Plan of Treatment Not on file documented as of this encounter Visit Diagnoses Not on filedocumented in this encounter
--- OUTSIDE RECORDS SUMMARY | 2024-09-09 02:54 | XMS_ITS | Encounter Summary ---
Author Organization [employer] ([place], [place], [place], [place]) Address [address] [place] [address] Care Team Providers Care Muck Farmer Name Role Phone Unavailable Primary Care Provider Unavailabl e Encounter Details Date Type Department Care Team (Late st Contact Info) Description 04/15/2019 Transcribed Document [facility] [place] [facility] [place] [address] ProviderSharon MD [address] [place] [address] Social History Tobacco Use Types Packs/Day Years Used Date Smoking Tobacco: Never Assessed Sex and Gender Information Value Date Recorded Sex Assigned at Not on file Legal Sex Male 6:54 PM CDT Gender Identity Not on file Sexual Orientation Not on file documented as of this encounter Miscellaneous Notes * Cerner Conversion Note - Sharon Phillips MD - 04/15/2019 2:47 PM GLASS INSTALLER [facility] [place] [address] RAUDEL ZEPEDA :1965 Visit Time:04/09/2019 Your Visit Summary Your [...] When 05/19/2019 09:45 AM EDT Where: [address] [facility] [address] [place] [address]- Business (1) Follow Up with BEN FINLEY When 05/17/2019 11:30 AM EDT Where: [address] [place] [place] [address]- Business (1) Follow Up with ERASMO SCHMID ([facility] When Within 1 week Comments Please call in AM and make a 1 week hospital follow-up appointment. Where: [place] [address]- Medications What How Much When Instructions Next [...] 08/24/2003 Document Revised: 09/06/2016 Document Reviewed: 07/23/2016 [employer] Interactive Patient Education ?? 2019 [employer] How to Take Your Blood Pressure [...] monitor. You can buy one at a [employer] or online. When choosing one: ??? Choose [...] 01/30/2009 Document Revised: 01/15/2017 Document Reviewed: 07/26/2016 [employer] Patient Education ?? 2019 [employer]. Heart-Healthy Eating Plan Many factors influence your [...] foods can I eat? Grains Breads, including Belarusian, white, nanci, wheat, raisin, rye, oatmeal, and Irish. Tortillas that are neither fried nor made with lard or trans fat. Low-fat rolls, including hotdog and hamburger buns and Greek muffins. Biscuits. Muffins. Waffles. Pancakes. Light popcorn. [...] cooking, baking, salads, and as spreads. Other Bronx powder. Coffee and tea. All seasonings and [...] cheese. Whole milk cheeses, including blue (john), Frankford Dayron, Brie, Omar, Sammarinese, Havarti, Cymraes, cheddar, Camembert, and Earlton. Whole or 2% milk that is liquid, [...] that has suet, meat fat, or shortening. [place] butter, hydrogenated oils, palm oil, coconut oil, [...] 11/26/2008 Document Revised: 09/06/2016 Document Reviewed: 08/11/2014 [employer] Interactive Patient Education ?? 2019 [employer]. Electrical Cardioversion Electrical cardioversion is the delivery [...] including vitamins, herbs, eye drops, creams, and dhuv-zsz-zblyshv medicines. ??? Any problems you or family [...] 02/07/2003 Document Revised: 10/16/2016 Document Reviewed: 08/23/2016 [employer] Interactive Patient Education ?? 2017 [employer]. Supraventricular Tachycardia, Adult Supraventricular tachycardia (SVT) [...] as told by your doctor. ??? Take cftc-hwd-grwuorw and prescription medicines only as told by [...] 02/17/2006 Document Revised: 10/24/2016 Document Reviewed: 10/24/2016 [employer] Interactive Patient Education ?? 2019 [employer]. losartan (jn Morillo What is the most [...] may report side effects to FDA at 4-644-UIU-2610. What other drugs will affect losartan? Tell your doctor about all your other medicines, especially: ?? a diuretic or 'water pill'; ?? other blood pressure medications; ?? lithium; or ?? NSAIDs (nonsteroidal anti-inflammatory drugs)--aspirin, ibuprofen (Advil, Motrin), naproxen (Aleve), celecoxib, diclofenac, indomethacin, meloxicam, and others. This list is not complete. Other drugs may affect losartan, including prescription and ozxs-nzo-pnkvsih medicines, vitamins, and herbal products. Not all [...] to ensure that the information provided by [employer]. ('[employer]') is accurate, up-to-date, and complete, but no guarantee is made to that effect. Drug information contained herein may be time sensitive. [employer] information has been compiled for use by healthcare practitioners and consumers in the [place] and therefore [employer] does not warrant that uses outside of the [place] are appropriate, unless specifically indicated otherwise. [employer]'s drug information does not endorse drugs, diagnose patients or recommend therapy. [facility] drug information is an informational resource designed [...] effective or appropriate for any given patient. [facility] does not assume any responsibility for any aspect of healthcare administered with the aid of information [facility] provides. The information contained herein is not intended to cover all possible uses, directions, precautions, warnings, drug interactions, allergic reactions, or adverse effects. If you have questions about the drugs you are taking, check with your doctor, nurse or pharmacist. Copyright 6000-1932 [employer]. Version: 16.. Revision Date: 06/10/2018. oxazepam (ox A ze dipika) Serax What is the most important information I should know about oxazepam? Never use oxazepam in larger amounts, or for longer than prescribed. What is oxazepam? Oxazepam is a benzodiazepine (lyx-joz-ceh-AZE-eh-peen). Oxazepam affects chemicals in the brain that [...] may report side effects to FDA at 0-352-ENG-3114. What other drugs will affect oxazepam? Taking oxazepam with other drugs that make you sleepy or slow your breathing can cause dangerous side effects or . Ask your doctor before taking a sleeping pill, narcotic pain medicine, prescription cough medicine, a muscle relaxer, or medicine for anxiety, depression, or seizures. Other drugs may interact with oxazepam, including prescription and ayuf-jwm-rdouuai medicines, vitamins, and herbal products. Tell each [...] to ensure that the information provided by [employer]. ('[employer]') is accurate, up-to-date, and complete, but no guarantee is made to that effect. Drug information contained herein may be time sensitive. [employer] information has been compiled for use by healthcare practitioners and consumers in the [place] and therefore [employer] does not warrant that uses outside of the [place] are appropriate, unless specifically indicated otherwise. [employer] drug information does not endorse drugs, diagnose patients or recommend therapy. [employer] drug information is an informational resource designed [...] effective or appropriate for any given patient. [employer] does not assume any responsibility for any aspect of healthcare administered with the aid of information [employer] provides. The information contained herein is not intended to cover all possible uses, directions, precautions, warnings, drug interactions, allergic reactions, or adverse effects. If you have questions about the drugs you are taking, check with your doctor, nurse or pharmacist. Copyright 8538-4825 [employer]. Version: 7.03. Revision Date: 11/29/2015. nicotine (transdermal) [...] may report side effects to FDA at 2-042-MPU-6687. What other drugs will affect nicotine? Other drugs may affect nicotine transdermal, including prescription and mhkm-kse-pvanlaq medicines, vitamins, and herbal products. Tell your [...] to ensure that the information provided by [employer]. ('[employer]') is accurate, up-to-date, and complete, but no guarantee is made to that effect. Drug information contained herein may be time sensitive. [employer] information has been compiled for use by healthcare practitioners and consumers in the [place] and therefore [employer] does not warrant that uses outside of the [place] are appropriate, unless specifically indicated otherwise. [employer] drug information does not endorse drugs, diagnose patients or recommend therapy. [employer] drug information is an informational resource designed [...] effective or appropriate for any given patient. [employer] does not assume any responsibility for any aspect of healthcare administered with the aid of information [employer] provides. The information contained herein is not intended to cover all possible uses, directions, precautions, warnings, drug interactions, allergic reactions, or adverse effects. If you have questions about the drugs you are taking, check with your doctor, nurse or pharmacist. Copyright 0103-0357 [employer]. Version: 3.01. Revision Date: 10/08/2018. acetaminophen and [...] may report side effects to FDA at 5-846-ONM-4345. What other drugs will affect acetaminophen and [...] affect acetaminophen and oxycodone, including prescription and dind-zfh-wmjwqtx medicines, vitamins, and herbal products. Not all [...]
--- OUTSIDE RECORDS SUMMARY | 2024-09-09 02:55 | XMS_ITS | Encounter Summary ---
Author Organization [employer] ([place], [place], [place], [place]) Address [address] [place] [address] Care Team Providers Care Molding Machine Operator Name Role Phone Unavailable Primary Care Provider Unavailabl e Encounter Details Date Type Department Care Team (Late st Contact Info) Description 04/10/2019 Transcribed Document [facility] [place] [facility] [place] [address] ProviderSharon MD [facility] [place] [address] Social History Tobacco Use Types Packs/Day Years Used Date Smoking Tobacco: Never Assessed Sex and Gender Information Value Date Recorded Sex Assigned at Not on file Legal Sex Male 6:54 PM CDT Gender Identity Not on file Sexual Orientation Not on file documented as of this encounter Miscellaneous Notes * Cerner Conversion Note - Historical ProviderMD - 04/10/2019 2:[address] Counsellor Details Entered On: 04/10/2019 3:34 EST Performed [...]
--- OUTSIDE RECORDS SUMMARY | 2024-09-09 02:55 | XMS_ITS | Encounter Summary ---
Author Organization [employer] ([place], [place], [place], [place]) Address [address] [place] [address] Care Team Providers Care Color Artist Name Role Phone Unavailable Primary Care Provider Unavailabl e Encounter Details Date Type Department Care Team (Late st Contact Info) Description 04/15/2019 Transcribed Document [facility] [place] [facility] [place] [address] ProviderSharon MD [facility] [place] [address] Social History Tobacco Use Types Packs/Day Years Used Date Smoking Tobacco: Never Assessed Sex and Gender Information Value Date Recorded Sex Assigned at Not on file Legal Sex Male 6:54 PM CDT Gender Identity Not on file Sexual Orientation Not on file documented as of this encounter Miscellaneous Notes * Cerner Conversion Note - Historical ProviderMD - 04/15/2019 3:30 PM SHREDDER PICKER [facility] [place] [address] Visit Date/Time: 04/15/2019 15:30:49 DUANE RAUDEL The above patient was seen in the hospital today and needs to be excused from work/school until Return to Work/School Date: Mr. Richardson was in the hospital from 04/09/2019 to 04/15/2019. Advised to return to work in 1 week or after 04/22/2019. Electronically signed by [facility] Conversion Inspector Packager Cerner at 06/19/2022 4:37 PM CDT documented in this encounter Plan of Treatment Not on file documented as of this encounter Visit Diagnoses Not on filedocumented in this encounter
--- OUTSIDE RECORDS SUMMARY | 2024-09-09 02:55 | XMS_ITS | Encounter Summary ---
Author Organization [facility] ([place], [place], [place], [place]) Address [address] [place] [address] Care Team Providers Care Licensed Funeral Director And Embalmer Name Role Phone Unavailable Primary Care Provider Unavailabl e Encounter Details Date Type Department Care Team (Late st Contact Info) Description 04/10/2019 Transcribed Document [facility] [place] [facility] [place] [address] ProviderSharon MD [address] [place] [address] Social History Tobacco Use Types Packs/Day Years Used Date Smoking Tobacco: Never Assessed Sex and Gender Information Value Date Recorded Sex Assigned at Not on file Legal Sex Male 6:54 PM CDT Gender Identity Not on file Sexual Orientation Not on file documented as of this encounter Miscellaneous Notes * Cerner Conversion Note - Sharon Phillips MD - 04/10/2019 10:12 AM FOUNTAIN ATTENDANT Patient: RAUDEL ZEPEDA Age: 54 years Sex: Male : 1965 Associated Diagnoses: None Author: SHILO MONTES DE OCA MD-CAR Basic Information PCP: Paper Sealer: Chief Complaint 04/09/2019 18:45 EST Admission from [facility] with SVT History of Present Illness The [...] resistant so he was sent to the [facility] where he is was found to [...] influenza virus vaccine, inactivated: 0.5 mL, IntraMuscular, [id number] labetalol: 20 mg, IV Push, Q1H, PRN: [...] Daily influenza vaccine, quadrivalent 0.5 mL, IntraMuscular, [id number] levothyroxine 75 mcg tab 75 mcg 1 [...] SVT - Supraventricular tachycardia / SNOMED CT [id number] / Confirmed History of obstructive sleep apnea / IMO [id number] / Confirmed, Active Problems (7) Alcohol abuse Anxiety History of obstructive sleep apnea Hypertension Hypothyroid Smoker SVT - Supraventricular tachycardia Histories No education data available. Social & Psychosocial Habits alcohol consumption and ongoing withdraw Past Medical History: Active SVT - Supraventricular tachycardia ([id number]) Family History: No family history items have [...] Arterial Pressure (MAP)-BMDI 101 Temperature Source Oral Temperature Mode Fahrenheit Temperature, Fahrenheit 97.9 Deg F Clinical Temperature, C 36.6 Deg C Heart Rate Monitored 65 bpm Respiratory Rate 24 Breaths/Min HI Oxygen Saturation 95 % Oxygen Therapy Mode Nasal cannula Oxygen Flow Rate 2 Liter/Min 04/10/2019 5:00 EST Systolic Blood Pressure 116 mmHg Diastolic Blood Pressure 75 mmHg Mean Arterial Pressure (MAP)-BMDI 90 Heart Rate Monitored 97 bpm Respiratory [...] 23:36 EST Heart Rate, Apical 184 bpm PA 04/09/2019 23:00 EST Systolic Blood Pressure 119 [...] 21:11 EST Heart Rate, Apical 175 bpm PA 04/09/2019 21:00 EST Systolic Blood Pressure 151 [...] EST Height Source Stated Height Entry Format [place] Height/Length, [place] (ft) 6 ft Height/Length [place] 1 Inch CLINICALHEIGHT 185.42 cm [place] Body Weight 79 kg Weight Source Bed scale Weight Entry Format Metric, kilograms Weight METRIC kg 111.9 kg CLINICALWEIGHT 111.9 kg Body Surface Area (BSA) 2.35 m2 Body Mass Index 32.5 kg/m2 PA 04/09/2019 18:45 EST Height Source Stated Height Entry Format [place] Height/Length, [place] (ft) 6 ft Height/Length [place] 1 Inch CLINICALHEIGHT 185.42 cm [place] Body Weight 79 kg Weight Source Bed scale Weight Entry Format Metric, kilograms Weight METRIC kg 111.9 kg CLINICALWEIGHT 111.9 kg Body Surface Area (BSA) 2.35 m2 Body Mass Index 32.5 kg/m2 PA , Vitals Signs (last 24 hrs) Last [...] 10:00) 90 (APR 10 05:00) 140 (APR 10 10:00) SpO2 L 91 (APR 10:00) L [...] Normal range of motion. Integumentary: Warm, Dry, [place]. Neurologic: Alert, Oriented, has some tremors. Psychiatric: [...] 24 Hours) Radiology Results (Last 48 hours) [id number] -- 04/09/2019 18:47 CR Chest 1 Vw [...] 55 yo male followed by Dr. Mathews [id number] 1 of at least one echo pending [...]
--- OUTSIDE RECORDS SUMMARY | 2024-09-09 02:55 | XMS_ITS | Encounter Summary ---
Author Organization [employer] ([place], [place], [place], [place]) Address [address] [place] [address] Care Team Providers Care Lead Java Programmer Name Role Phone Unavailable Primary Care Provider Unavailabl e Encounter Details Date Type Department Care Team (Late st Contact Info) Description 04/12/2019 Transcribed Document [facility] [place] [address] ProviderSharon MD [address] [place] [address] Social History Tobacco Use Types Packs/Day Years Used Date Smoking Tobacco: Never Assessed Sex and Gender Information Value Date Recorded Sex Assigned at Not on file Legal Sex Male 6:54 PM CDT Gender Identity Not on file Sexual Orientation Not on file documented as of this encounter Miscellaneous Notes * Cerner Conversion Note - Sharon ProviderMD - 04/12/2019 12:02 PM GROUP UNDERWRITER On Going Discharge Planning Entered On: 04/12/2019 12:03 EST Performed On: 04/12/2019 12:02 EST by JUS MATAMOROS Rn-Pitch GathererFlagman Progress Note Discharge Arrangements : Patient Post-Acute [...] Meeting Medical Necessity : Yes JUS MATAMOROS, Cira-Pitch Gatherer - 04/12/2019 12:02 EST Narrative Progress Note Narrative Progress Note : Anticipate pt will d/c home with S.O. when stable; OLOP consult when ready for d/c. JUS MATAMOROS, Rn-Pitch Gatherer - 04/12/2019 12:02 EST Electronically signed by Phil, [facility] Conversion Urogynecology Physician Cerner at 06/19/2022 4:34 PM CDT documented in this encounter Plan of Treatment Not on file documented as of this encounter Visit Diagnoses Not on filedocumented in this encounter
--- OUTSIDE RECORDS SUMMARY | 2024-09-09 02:55 | XMS_ITS | Encounter Summary ---
Author Organization [employer] ([place], [place], [place]) Address [address] [place] [address] Care Team Providers Care Chief Nurse Executive Name Role Phone Unavailable Primary Care Provider Unavailabl e Encounter Details Date Type Department Care Team (Late st Contact Info) Description 04/10/2019 Transcribed Document [facility] [place] [facility] [place] [address] ProviderSharon MD [address] [place] [address] Social History Tobacco Use Types Packs/Day Years Used Date Smoking Tobacco: Never Assessed Sex and Gender Information Value Date Recorded Sex Assigned at Not on file Legal Sex Male 6:54 PM CDT Gender Identity Not on file Sexual Orientation Not on file documented as of this encounter Miscellaneous Notes * Cerner Conversion Note - Sharon ProviderMD - 04/10/2019 9:01 PM BIOMASS PRODUCTION MANAGER Pain Assessment Entered On: 04/11/2019 9:37 EST Performed On: 04/11/2019 8:14 EST by Kraen Painter RN Intervention Information: oxyCODONE Performed by [...]
--- OUTSIDE RECORDS SUMMARY | 2024-09-09 02:55 | XMS_ITS | Encounter Summary ---
Author Organization [employer] ([place], [place], [place], [place]) Address [address] [place] [address] Care Team Providers Care Senior Ui Web Developer Name Role Phone Unavailable Primary Care Provider Unavailabl e Encounter Details Date Type Department Care Team (Late st Contact Info) Description 04/11/2019 Transcribed Document [facility] [place] Family Medicine [facility] [place] [address] ProviderSharon MD [address] [place] [address] Social History Tobacco Use Types Packs/Day Years Used Date Smoking Tobacco: Never Assessed Sex and Gender Information Value Date Recorded Sex Assigned at Not on file Legal Sex Male 6:54 PM CDT Gender Identity Not on file Sexual Orientation Not on file documented as of this encounter Miscellaneous Notes * Cerner Conversion Note - Sharon ProviderMD - 04/11/2019 1:20 PM WEIGHER AND CHARGER Patient: RAUDEL ZEPEDA Age: 54 Years Sex: [...] (Low) 04/10/2019 17:28 EST Electronically signed by Phil, [facility] Conversion Ice Cream Dispenser Cerner at 06/19/2022 4:31 PM CDT documented in this encounter Plan of Treatment Not on file documented as of this encounter Visit Diagnoses Not on filedocumented in this encounter
--- OUTSIDE RECORDS SUMMARY | 2024-09-09 02:55 | XMS_ITS | Encounter Summary ---
Author Organization [employer] ([place], [place], [place]) Address [address] [place] [address] Care Team Providers Care Corrections Counselor Name Role Phone Unavailable Primary Care Provider Unavailabl e Encounter Details Date Type Department Care Team (Late st Contact Info) Description 04/12/2019 Transcribed Document [facility] [place] Family Medicine [address] [place] [address] ProviderSharon MD [address] [place] [address] Social History Tobacco Use Types Packs/Day Years Used Date Smoking Tobacco: Never Assessed Sex and Gender Information Value Date Recorded Sex Assigned at Not on file Legal Sex Male 6:54 PM CDT Gender Identity Not on file Sexual Orientation Not on file documented as of this encounter Miscellaneous Notes * Cerner Conversion Note - Historical ProviderMD - 04/12/2019 8:01 AM BILLING DEPARTMENT SUPERVISOR Height and Weight, Routine Entered On: 04/12/2019 8:01 EST Performed On: 04/12/2019 8:01 EST by OMRRO GILLIAM RN Height and Weight, Routine Routine Weight Source : Bed scale Routine Weight Entry Format : Metric Height Source : Stated Height Entry Format : [place] Height, Feet : 6 ft Height, Inches : 1 Inch Clinical Height : 185.42 cm MORRO GILLIAM RN - 04/12/2019 8:01 EST documented in this encounter Plan of Treatment Not on file documented as of this encounter Visit Diagnoses Not on filedocumented in this encounter
--- OUTSIDE RECORDS SUMMARY | 2024-09-09 02:55 | XMS_ITS | Encounter Summary ---
Author Organization [employer] ([place], [place], [place]) Address [address] [place] [address] Care Team Providers Care Tool Rental Technician Name Role Phone Unavailable Primary Care Provider Unavailabl e Encounter Details Date Type Department Care Team (Late st Contact Info) Description 04/12/2019 Transcribed Document [facility] [place] [facility] [place] [address] ProviderSharon MD [place] [address] Social History Tobacco Use Types Packs/Day Years Used Date Smoking Tobacco: Never Assessed Sex and Gender Information Value Date Recorded Sex Assigned at Not on file Legal Sex Male 6:54 PM CDT Gender Identity Not on file Sexual Orientation Not on file documented as of this encounter Miscellaneous Notes * Cerner Conversion Note - Historical ProviderMD - 04/12/2019 2:00 AM WOOL SPOTTER Physician Details Entered On: 04/12/2019 8:08 EST Performed [...]
--- OUTSIDE RECORDS SUMMARY | 2024-09-09 02:55 | XMS_ITS | Encounter Summary ---
Author Organization [employer] ([place]) Address [address] [place] [address] Care Team Providers Care Percussion Instrument Tuner Name Role Phone Unavailable Primary Care Provider Unavailabl e Encounter Details Date Type Department Care Team (Late st Contact Info) Description 04/10/2019 Transcribed Document [facility] [place] [facility] [place] [address] ProviderSharon MD [address] [place] [address] Social History Tobacco Use Types Packs/Day Years Used Date Smoking Tobacco: Never Assessed Sex and Gender Information Value Date Recorded Sex Assigned at Not on file Legal Sex Male 6:54 PM CDT Gender Identity Not on file Sexual Orientation Not on file documented as of this encounter Miscellaneous Notes * Cerner Conversion Note - Sharon ProviderMD - 04/10/2019 2:07 PM LIVESTOCK SPECULATOR Patient: RAUDEL ZEPEDA Age: 54 Years Sex: [...] While patient is in bed, Continuous Order (SALVAOTRE HARP) Medications amiodarone injection 450 mg + [...] influenza virus vaccine, inactivated, 0.5 mL, IntraMuscular, [id number] labetalol, 20 mg= 4 mL, IV Push, [...] Appearance CLEAR2 04/09/2019 21:55 EST Urine Specific [place] 1.014 04/09/2019 21:55 EST Urine pH Dipstick [...]
--- OUTSIDE RECORDS SUMMARY | 2024-09-09 02:55 | XMS_ITS | Encounter Summary ---
Author Organization [employer] ([place], [place], [place], [place]) Address [address] [place] [address] Care Team Providers Care Recovery Coach Name Role Phone Unavailable Primary Care Provider Unavailabl e Encounter Details Date Type Department Care Team (Late st Contact Info) Description 04/10/2019 Transcribed Document [facility] [place] [facility] [place] [address] ProviderSharon MD [facility] [address] Social History Tobacco Use Types Packs/Day Years Used Date Smoking Tobacco: Never Assessed Sex and Gender Information Value Date Recorded Sex Assigned at Not on file Legal Sex Male 6:54 PM CDT Gender Identity Not on file Sexual Orientation Not on file documented as of this encounter Miscellaneous Notes * Cerner Conversion Note - Historical ProviderMD - 04/10/2019 5:00 PM TAPER/FINISHER Chart Check - Review Order Profile Entered On: 04/10/2019 18:31 EST Performed On: 04/10/2019 17:00 EST by Karen Painter RN Chart Check Powerplans Initiated/Discontinued as Appropriate : Yes All Active Orders Reviewed : Yes Karen Painter RN - 04/10/2019 18:31 EST documented in this encounter Plan of Treatment Not on file documented as of this encounter Visit Diagnoses Not on filedocumented in this encounter
--- OUTSIDE RECORDS SUMMARY | 2024-09-09 02:55 | XMS_ITS | Encounter Summary ---
Author Organization [employer] ([place], [place], [place]) Address [address] [place] [address] Care Team Providers Care Industrial Hygienist Name Role Phone Unavailable Primary Care Provider Unavailabl e Encounter Details Date Type Department Care Team (Late st Contact Info) Description 04/09/2019 Transcribed Document [facility] [place] [facility] [place] [address] ProviderSharon MD [address] [place] [address] Social History Tobacco Use Types Packs/Day Years Used Date Smoking Tobacco: Never Assessed Sex and Gender Information Value Date Recorded Sex Assigned at Not on file Legal Sex Male 6:54 PM CDT Gender Identity Not on file Sexual Orientation Not on file documented as of this encounter Miscellaneous Notes * Cerner Conversion Note - Historical ProviderMD - 04/09/2019 7:14 PM FRINGING 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 Pain Assessment Entered On: 04/12/2019 8:07 EST [...]
--- OUTSIDE RECORDS SUMMARY | 2024-09-09 02:55 | XMS_ITS | Encounter Summary ---
Author Organization [employer] ([place], [place], [place], [place]) Address [address] [place] [address] Care Team Providers Care Accounts Receivable Accountant Name Role Phone Unavailable Primary Care Provider Unavailabl e Encounter Details Date Type Department Care Team (Late st Contact Info) Description 04/14/2019 Transcribed Document [facility] [place] [facility] Medicine [facility] [place] [address] ProviderSharon MD [facility] [place] [address] Social History Tobacco Use Types Packs/Day Years Used Date Smoking Tobacco: Never Assessed Sex and Gender Information Value Date Recorded Sex Assigned at Not on file Legal Sex Male 6:54 PM CDT Gender Identity Not on file Sexual Orientation Not on file documented as of this encounter Miscellaneous Notes * Cerner Conversion Note - Historical ProviderMD - 04/14/2019 6:14 AM CHIEF TECHNOLOGIST Height and Weight, Routine Entered On: 04/14/2019 6:14 EST Performed On: 04/14/2019 6:14 EST by MORRO GILLIAM RN Height and Weight, Routine Routine Weight Source : Bed scale Routine Weight Entry Format : Metric Routine Weight, Kilograms : 106 kg(Converted to: 233 lb 11 oz) Routine Weight Calculation : 106 kg Height Source : Stated Height Entry Format : [place] Height, Feet : 6 ft Height, Inches : 1 Inch Clinical Height : 185.42 cm Body Surface Area (BSA), Routine : 2.3 m2 Body Mass Index (BMI), Routine : 30.83 kg/m2 MOROR GILLIAM RN - 04/14/2019 6:14 EST Electronically signed by Phil [facility] Conversion Saw Feeder Cerner at 06/19/2022 4:30 PM CDT documented in this encounter Plan of Treatment Not on file documented as of this encounter Visit Diagnoses Not on filedocumented in this encounter
--- OUTSIDE RECORDS SUMMARY | 2024-09-09 02:55 | XMS_ITS | Encounter Summary ---
Author Organization [employer] ([place], [place], [place]) Address [address] [place] [address] Care Team Providers Care Precast Concrete Ironworker Name Role Phone Unavailable Primary Care Provider Unavailabl e Encounter Details Date Type Department Care Team (Late st Contact Info) Description 04/12/2019 Transcribed Document [facility] [place] [facility] [place] [address] ProviderSharon MD [facility] [place] [address] Social History Tobacco Use Types Packs/Day Years Used Date Smoking Tobacco: Never Assessed Sex and Gender Information Value Date Recorded Sex Assigned at Not on file Legal Sex Male 6:54 PM CDT Gender Identity Not on file Sexual Orientation Not on file documented as of this encounter Miscellaneous Notes * Cerner Conversion Note - Historical ProviderMD - 04/12/2019 12:34 PM PATHOLOGY LABORATORY DIRECTOR Event Note Entered On: 04/12/2019 12:36 EST [...]
--- OUTSIDE RECORDS SUMMARY | 2024-09-09 02:55 | XMS_ITS | Encounter Summary ---
Author Organization [employer] ([place], [place]) Address [address] [place] [address] Care Team Providers Care Transportation Maintenance Worker Name Role Phone Unavailable Primary Care Provider Unavailabl e Encounter Details Date Type Department Care Team (Late st Contact Info) Description 04/14/2019 Transcribed Document [facility] [place] [facility] [place] [address] ProviderSharon MD [place] [address] Social History Tobacco Use Types Packs/Day Years Used Date Smoking Tobacco: Never Assessed Sex and Gender Information Value Date Recorded Sex Assigned at Not on file Legal Sex Male 6:54 PM CDT Gender Identity Not on file Sexual Orientation Not on file documented as of this encounter Miscellaneous Notes * Cerner Conversion Note - Historical ProviderMD - 04/14/2019 5:00 PM MANAGER TESTING Chart Check - Review Order Profile Entered [...]
--- OUTSIDE RECORDS SUMMARY | 2024-09-09 02:55 | XMS_ITS | Encounter Summary ---
Author Organization [employer] ([place], [place], [place], [place]) Address [address] [place] [address] Care Team Providers Care Nutritional Assistant Name Role Phone Unavailable Primary Care Provider Unavailabl e Encounter Details Date Type Department Care Team (Late st Contact Info) Description 04/09/2019 Transcribed Document [facility] [place] [facility] [place] [address] ProviderSharon MD [address] [place] [address] Social History Tobacco Use Types Packs/Day Years Used Date Smoking Tobacco: Never Assessed Sex and Gender Information Value Date Recorded Sex Assigned at Not on file Legal Sex Male 6:54 PM CDT Gender Identity Not on file Sexual Orientation Not on file documented as of this encounter Miscellaneous Notes * Cerner Conversion Note - Sharon ProviderMD - 04/09/2019 6:[address] LIGHT REPAIRER HELPER Admission History, Adult Entered On: 04/10/2019 3:32 EST Performed On: 04/09/2019 18:45 EST by Luda Kay RN Advance Directive Patient has Advance Directive [...] 3:19 EST General Info Contact Password : [id number] Emergency Contact #1 : Gracie Chowdary Emergency Contact #1 Emergency Contact #1 Relationship : Signigicant Other Emergency Contact #2 : none Emergency Contact #2 Phone Number : none Emergency Contact #2 Relationship : none Chief Complaint : Admission from [facility] with SVT Primary Language : Hungarian Communication Barrier : None Luda Kay RN [...] Scale Risk Level : 25-45 Medium Risk Dubberly Fall Interventions : Assistive devices within reach, [...] Source : Stated Height Entry Format : [place] Height, Feet : 6 ft(Converted to: 183 [...] Body Mass Index : 32.5 kg/m2 (HI) [place] Body Weight : 79 kg Luda Kay [...] Luda Kay RN - 04/10/2019 3:19 EST Arthur Suicide Severity Rating Scale (C-SSRS) CSSRS Past [...]
--- OUTSIDE RECORDS SUMMARY | 2024-09-09 02:55 | XMS_ITS | Encounter Summary ---
Author Organization [employer] ([place], [place], [place], [place]) Address [address] [place] [address] Care Team Providers Care Hand Touch Up Painter Name Role Phone Unavailable Primary Care Provider Unavailabl e Encounter Details Date Type Department Care Team (Late st Contact Info) Description 04/15/2019 Transcribed Document [facility] [place] [facility] [address] ProviderSharon [place] [address] Social History Tobacco Use Types Packs/Day Years Used Date Smoking Tobacco: Never Assessed Sex and Gender Information Value Date Recorded Sex Assigned at Not on file Legal Sex Male 6:54 PM CDT Gender Identity Not on file Sexual Orientation Not on file documented as of this encounter Miscellaneous Notes * Cerner Conversion Note - Historical ProviderMD - 04/15/2019 10:17 AM CAFE COOK Attempt to Treat, PT Entered On: 04/15/2019 12:45 EST Performed On: 04/15/2019 10:17 EST by SCOTT BILLINGS PTA Attempt to Treat Unable to Treat Due To : Patient Refusal Inability to Treat Comment : pt refused due to wanting to take a shower first, will try back as time permits Notification : SCOTT Valdivia PTA - 04/15/2019 12:44 EST documented in this encounter Plan of Treatment Not on file documented as of this encounter Visit Diagnoses Not on filedocumented in this encounter
--- OUTSIDE RECORDS SUMMARY | 2024-09-09 02:55 | XMS_ITS | Encounter Summary ---
Author Organization [email or web address] ([place], [place], [place]) Address [address] [place] [address] Care Team Providers Care Donor Specialist Name Role Phone Unavailable Primary Care Provider Unavailabl e Encounter Details Date Type Department Care Team (Late st Contact Info) Description 04/09/[address] [facility] [place] [facility] [place] [address] ProviderSharon MD [facility] [place] [address] Social History Tobacco Use Types Packs/Day Years Used Date Smoking Tobacco: Never Assessed Sex and Gender Information Value Date Recorded Sex Assigned at Not on file Legal Sex Male 6:54 PM CDT Gender Identity Not on file Sexual Orientation Not on file documented as of this encounter Miscellaneous Notes * Cerner Conversion Note - Historical ProviderMD - 04/09/2019 7:11 PM MICROARRAY OPERATIONS VICE PRESIDENT Consult Phone Call Documentation Entered On: 04/10/2019 3:15 EST Performed On: 04/09/2019 19:11 EST by Luda Kay, RN Phone Call for Consults Consult Phone Call/Page Attempt : First call Date and Time Call Returned : 04/09/2019 19:00 EST Consult, Additional Information : BATCH OR CONTINUOUS STILL OPERATOR came to see patient Luda Kay, RN - 04/10/2019 3:12 EST Electronically signed by Phil [facility] Conversion [employer] at 06/19/2022 4:40 PM CDT documented in this encounter Plan of Treatment Not on file documented as of this encounter Visit Diagnoses Not on filedocumented in this encounter
--- OUTSIDE RECORDS SUMMARY | 2024-09-09 02:55 | XMS_ITS | Encounter Summary ---
Author Organization [employer] ([place]) Address [address] [place] [address] Care Team Providers Care Photographic Colorist Name Role Phone Unavailable Primary Care Provider Unavailabl e Encounter Details Date Type Department Care Team (Late st Contact Info) Description 04/10/2019 Transcribed Document [facility] [place] [facility] [place] [address] ProviderSharon MD [facility] [place] [address] Social History Tobacco Use Types Packs/Day Years Used Date Smoking Tobacco: Never Assessed Sex and Gender Information Value Date Recorded Sex Assigned at Not on file Legal Sex Male 6:54 PM CDT Gender Identity Not on file Sexual Orientation Not on file documented as of this encounter Miscellaneous Notes * Cerner Conversion Note - Historical ProviderMD - 04/10/2019 5:00 AM LOSS PREVENTION/SAFETY DISTRICT MANAGER Chart Check - Review Order Profile Entered On: 04/10/2019 6:18 EST Performed On: 04/10/2019 5:00 EST by Luda Kay, RN Chart Check Powerplans Initiated/Discontinued as Appropriate : Not applicable All Active Orders Reviewed : Yes Luda Kay RN - 04/10/2019 6:18 EST Electronically signed by Phil [facility] Conversion Music Store Manager [employer]ner at 06/19/2022 4:32 PM CDT documented in this encounter Plan of Treatment Not on file documented as of this encounter Visit Diagnoses Not on filedocumented in this encounter
--- OUTSIDE RECORDS SUMMARY | 2024-09-09 02:55 | XMS_ITS | Encounter Summary ---
Author Organization [employer] ([place], [place], [place], [place]) Address [address] [place] [address] Care Team Providers Care Almond Huller Name Role Phone Unavailable Primary Care Provider Lilia tsang Encounter Details Date Type Department Care Team (Late st Contact Info) Description 04/13/2019 Transcribed Document [facility] [place] [facility] [place] [address] ProviderSharon MD [address] [place] [address] Social History Tobacco Use Types Packs/Day Years Used Date Smoking Tobacco: Never Assessed Sex and Gender Information Value Date Recorded Sex Assigned at Not on file Legal Sex Male 6:54 PM CDT Gender Identity Not on file Sexual Orientation Not on file documented as of this encounter Miscellaneous Notes * Cerner Conversion Note - Sharon ProviderMD - 04/13/2019 6:27 PM FOREST FIREFIGHTER Patient: RAUDEL ZEPEDA Age: 54 years Sex: [...] influenza virus vaccine, inactivated: 0.5 mL, IntraMuscular, [id number] Documented Medications Documented Metoprolol Tartrate 100 mg [...] History of obstructive sleep apnea / IMO [id number] / Confirmed SVT - Supraventricular tachycardia / SNOMED CT [id number] / Confirmed, Active Problems (7) Alcohol abuse [...] L 92 (APR 13 01:00) 98 (APR 13:00) General: appears a bit older than stated [...] L 36.2 (APR 11) L 37.9 (APR 08) Plt 214 (B ) 199 (FEB 10) 218 (B 09) 251 (B 08) Na L 132 (APR 13) L 132 (APR 10) L 133 (APR 11) L 133 (APR 08) K 4.2 (FEB 11) 4.1 (FEB 10) 3.5 (FEB 09) 3.9 (FEB 08) Cl L 100 (FEB 11) L 99 (FEB 10) L 97 (FEB 09) L 95 (FEB 08) CO2 30 (FEB 11) 31 (FEB 10) H 33 (FEB 09) H 33 (B 08) BUN 8 (FEB 11) 7 (FEB 10) 8 (FEB 09) 8 (B 08) Cr 0.80 (FEB 11) 0.80 (FEB 10) 0.90 (FEB 09) 1.00 (B 08) Glu R 92 (FEB 11) 90 (FEB 10) 101 (B 09) H 214 (B 08) Ca 9.1 (FEB 11) 8.9 (FEB 10) 8.5 (FEB 09) L 8.0 (B 08) Lactic 0.8 (APR 09) PT 10.7 (APR 09) INR 1.0 (APR 09) AST 13 (FEB 10) 13 (FEB 09) 19 (FEB 08) 25 (B 07) ALT 16 (FEB 10) L 14 (B 09) 19 (FEB 08) 20 (APR 07) ALK P H 149 (FEB 10) H 155 (B 09) H 170 (B 08) H 178 (APR 07) T Bili 0.6 (B 10) 0.7 (B 09) 0.8 (B 08) 0.6 (APR 07) PTN 6.5 (FEB 10) L 6.2 (B 09) L 6.1 (FEB 08) L 6.0 (B 07) ALB L 2.4 (FEB 10) L 2.5 (FEB 09) L 2.4 (FEB 08) L 2.7 (B 07) Lipase 124 (APR 07) Troponin <0.015 (APR 08) 0.022 (APR 09) . ECHO 04/10/2019 [...] garcía Electronically signed by Radha Villarreal Conversion Assistant Professor Of Drama [employer] at 06/19/2022 4:37 PM CDT documented in this encounter Plan of Treatment Not on file documented as of this encounter Visit Diagnoses Not on filedocumented in this encounter
--- OUTSIDE RECORDS SUMMARY | 2024-09-09 02:55 | XMS_ITS | Encounter Summary ---
Author Organization [employer] ([place], [place], [place], [place]) Address [address] [place] [address] Care Team Providers Care Jewelry Estimator Name Role Phone Unavailable Primary Care Provider Unavailabl e Encounter Details Date Type Department Care Team (Late st Contact Info) Description 04/09/[address] [facility] [place] [facility] [place] [address] ProviderSharon MD [facility] [place], [place] [id number] Social History Tobacco Use Types Packs/Day Years Used Date Smoking Tobacco: Never Assessed Sex and Gender Information Value Date Recorded Sex Assigned at Not on file Legal Sex Male 6:54 PM CDT Gender Identity Not on file Sexual Orientation Not on file documented as of this encounter Miscellaneous Notes * Cerner Conversion Note - Sharon ProviderMD - 04/09/2019 8:32 PM LOG MARKER Consult Phone Call Documentation Entered On: 04/10/2019 8:43 EST Performed On: 04/10/2019 8:00 EST by Crystal Adamson [facility] Phone Call for Consults Consult Phone Call/Page Attempt : Other: aware of consult Provider Service Notified Name : Cardiology Crystal Adamson [facility] - 04/10/2019 8:42 EST Electronically signed by Phil [facility] Conversion Sales Market Leader Cerda at 06/19/2022 4:34 PM CDT documented in this encounter Plan of Treatment Not on file documented as of this encounter Visit Diagnoses Not on filedocumented in this encounter
--- OUTSIDE RECORDS SUMMARY | 2024-09-09 02:55 | XMS_ITS | Encounter Summary ---
Author Organization [employer] ([place], [place], [place], [place]) Address [address] [place] [address] Care Team Providers Care Ceramics Teacher Name Role Phone Unavailable Primary Care Provider Unavailabl e Encounter Details Date Type Department Care Team (Late st Contact Info) Description 04/15/2019 Transcribed Document [facility] [place] [facility] [place] [address] ProviderSharon MD [address] [place] [address] Social History Tobacco Use Types Packs/Day Years Used Date Smoking Tobacco: Never Assessed Sex and Gender Information Value Date Recorded Sex Assigned at Not on file Legal Sex Male 6:54 PM CDT Gender Identity Not on file Sexual Orientation Not on file documented as of this encounter Miscellaneous Notes * Cerner Conversion Note - Sharon Phillips MD - 04/15/2019 2:38 PM CEMENT SPRAYER HELPER Patient Education Materials Follows: How to Take [...] 08/24/2003 Document Revised: 09/06/2016 Document Reviewed: 07/23/2016 Virt[employer]ream Interactive Patient Education ? 2019 GLG. How to Take Your Blood Pressure You [...] monitor. You can buy one at a [employer] or online. When choosing one: ??? Choose [...] 01/30/2009 Document Revised: 01/15/2017 Document Reviewed: 07/26/2016 Virtustream Interactive Patient Education ? 2019 Virt[employer] Inc. Heart-Healthy Eating Plan Many factors influence [...] foods can I eat? Grains Breads, including Macedonian, white, nanci, wheat, raisin, rye, oatmeal, and Malian. Tortillas that are neither fried nor made with lard or trans fat. Low-fat rolls, including hotdog and hamburger buns and Cameroonian muffins. Biscuits. Muffins. Waffles. Pancakes. Light popcorn. [...] cooking, baking, salads, and as spreads. Other [place] powder. Coffee and tea. All seasonings and [...] cheese. Whole milk cheeses, including blue (john), Vinton Dayron, Brie, Omar, Central African, Havarti, Filipino, cheddar, Camembert, and P[place]ale. Whole or 2% milk that is liquid, evaporated, or condensed. Whole buttermilk. Cream sauce or high-fat cheese sauce. Yogurt that is made from whole milk. Beverages Regular sodas and drinks with added sugar. Sweets and Desserts Frosting. Pudding. Cookies. Cakes other than ialn food cake. Candy that has milk chocolate or white chocolate, hydrogenated fat, butter, coconut, or unknown ingredients. Buttered syrups. Full-fat ice cream or ice cream drinks. Fats and Oils Gravy that has suet, meat fat, or shortening. [place] butter, hydrogenated oils, palm oil, coconut oil, [...] 11/26/2008 Document Revised: 09/06/2016 Document Reviewed: 08/11/2014 Virtustream Interactive Patient Education ? 2019 Virtustream Inc. Electrical Cardioversion Electrical cardioversion is the [...] including vitamins, herbs, eye drops, creams, and zmts-jip-maqwhyc medicines. ??? Any problems you or family [...] 02/07/2003 Document Revised: 10/16/2016 Document Reviewed: 08/23/2016 Virtustream Interactive Patient Education ? 2017 Virt[employer] Inc. Emergency Medicine Supraventricular Tachycardia, Adult Supraventricular [...] as told by your doctor. ??? Take rdgv-hzo-srrxmlj and prescription medicines only as told by [...] 02/17/2006 Document Revised: 10/24/2016 Document Reviewed: 10/24/2016 ElseAtmosferiq Interactive Patient Education ? 2019 Virtustream Inc. documented in this encounter Plan of Treatment Not on file documented as of this encounter Visit Diagnoses Not on filedocumented in this encounter
--- OUTSIDE RECORDS SUMMARY | 2024-09-09 02:55 | XMS_ITS | Encounter Summary ---
Author Organization [employer] ([place], [place], [place], [place]) Address [address] [place] [address] Care Team Providers Care Microsoft Windows Engineer Name Role Phone Unavailable Primary Care Provider Unavailabl e Encounter Details Date Type Department Care Team (Late st Contact Info) Description 04/12/2019 Transcribed Document [facility] [place] [address] ProviderSharon [place] [address] Social History Tobacco Use Types Packs/Day Years Used Date Smoking Tobacco: Never Assessed Sex and Gender Information Value Date Recorded Sex Assigned at Not on file Legal Sex Male 6:54 PM CDT Gender Identity Not on file Sexual Orientation Not on file documented as of this encounter Miscellaneous Notes * Cerner Conversion Note - Historical ProviderMD - 04/12/2019 5:00 AM LEAK OPERATOR PARAFFIN PLANT Chart Check - Review Order Profile Entered [...]
--- OUTSIDE RECORDS SUMMARY | 2024-09-09 02:55 | XMS_ITS | Encounter Summary ---
Author Organization [employer] ([place], [place], [place], [place]) Address [address] [place] [address] Care Team Providers Care Computer Applications Instructor Name Role Phone Unavailable Primary Care Provider Unavailabl e Encounter Details Date Type Department Care Team (Late st Contact Info) Description 04/09/2019 Transcribed Document [facility] [place] [facility] [place] [address] ProviderSharon MD [address] [place] [id number] Social History Tobacco Use Types Packs/Day Years Used Date Smoking Tobacco: Never Assessed Sex and Gender Information Value Date Recorded Sex Assigned at Not on file Legal Sex Male 6:54 PM CDT Gender Identity Not on file Sexual Orientation Not on file documented as of this encounter Miscellaneous Notes * Cerner Conversion Note - Sharon Phillips MD - 04/09/2019 11:29 PM STAGE RIGGER DATE OF ADMISSION: 04/09/2019 PRIMARY CARE PHYSICIAN: [...] difficulty breathing. The patient was transferred to [facility], on amiodarone drip. The patient came [...] was reviewed. Critical time spent, 55 minutes. /[id number] MD SARA Alvarez/BETTY / SARA / BETY documented in this encounter Plan of Treatment Not on file documented as of this encounter Visit Diagnoses Not on filedocumented in this encounter
--- OUTSIDE RECORDS SUMMARY | 2024-09-09 02:55 | XMS_ITS | Encounter Summary ---
Author Organization [employer] ([place], [place], [place], [place]) Address [address] [place] [address] Care Team Providers Care Order Picker Name Role Phone Unavailable Primary Care Provider Unavailabl e Encounter Details Date Type Department Care Team (Late st Contact Info) Description 04/13/2019 Transcribed Document [facility] [place] Medicine [facility] [address] ProviderSharon MD [address] [place] [address] Social History Tobacco Use Types Packs/Day Years Used Date Smoking Tobacco: Never Assessed Sex and Gender Information Value Date Recorded Sex Assigned at Not on file Legal Sex Male 6:54 PM CDT Gender Identity Not on file Sexual Orientation Not on file documented as of this encounter Miscellaneous Notes * Cerner Conversion Note - Sharon Phillips MD - 04/13/2019 7:16 AM ANGER CONTROL COUNSELOR Patient: RAUDEL ZEPEDA Age: 54 years Sex: Male : 1965 Associated Diagnoses: None Author: JEANNE CONLEY MD-CAR Basic Information Input Output Clerk: Bisi Trejo [facility] Health Status Current medications: (Selected) Inpatient Medications [...] influenza virus vaccine, inactivated: 0.5 mL, IntraMuscular, [id number], Home Medications (9) Active doxepin 10 mg, [...] 98.1 (APR 12 08:00) Apical HR 69 (B 10 10:45) 69 (APR 12 10:45) 69 (APR 12 10:45) Mon HR 64 (APR 13 07:00) [...] of motion, Normal strength. Integumentary: Warm, Dry, [place], Intact. Neurologic: Alert, Oriented. Psychiatric: Cooperative, Appropriate [...] x 1 CXR EP consult in AM Electronically signed by Radha Villarreal Conversion Building Code Administrator Dreadner at 06/19/2022 4:33 PM CDT documented in this encounter Plan of Treatment Not on file documented as of this encounter Visit Diagnoses Not on filedocumented in this encounter
--- OUTSIDE RECORDS SUMMARY | 2024-09-09 02:55 | XMS_ITS | Encounter Summary ---
Author Organization [employer] ([place], [place], [place], [place]) Address [address] [place] [address] Care Team Providers Care Safety Teacher Name Role Phone Unavailable Primary Care Provider Unavailabl e Encounter Details Date Type Department Care Team (Late st Contact Info) Description 04/10/2019 Transcribed Document [facility] [place] [facility] [place] [address] ProviderSharon MD [facility] [place] [address] Social History Tobacco Use Types Packs/Day Years Used Date Smoking Tobacco: Never Assessed Sex and Gender Information Value Date Recorded Sex Assigned at Not on file Legal Sex Male 6:54 PM CDT Gender Identity Not on file Sexual Orientation Not on file documented as of this encounter Miscellaneous Notes * Cerner Conversion Note - Sharon ProviderMD - 04/10/2019 12:42 PM MILL HAND PLATE MILL UM Authorization Entered On: 04/10/2019 12:42 EST Performed On: 04/10/2019 12:42 EST by Alonso Malik Mkt Skate Shop Attendant-Utilization Mgt Primary Insurance Authorization Authorization and Policy Numbers : Insurance 1 Health Plan: [employer] FED Policy Number: [id number] Authorization Number: Insurance Primary Name : Hiren [id number] Authorization Status-Primary : Awaiting callback Reference Number-Primary : [id number] Authorized Service Begin Date-Primary : 04/09/2019 EST Authorization Comments-Primary : Inpt auth requested and clinicals submitted via Availity as pt has commercial [place] plan, not Federal as listed. Historical Authorization Comments-Primary : Comment 1: Clinicals paper faxed. (Alonso Malik Mkt Skate Shop Attendant-Utilization Mgt 04/10/2019 12:32) Alonso Malik Mkt Skate Shop Attendant-Utilization Mgt - 04/10/2019 12:42 EST Electronically signed by [facility] Conversion Silk Screen Cutter Cerner at 06/19/2022 4:38 PM CDT documented in this encounter Plan of Treatment Not on file documented as of this encounter Visit Diagnoses Not on filedocumented in this encounter
--- OUTSIDE RECORDS SUMMARY | 2024-09-09 02:55 | XMS_ITS | Clinical Summary ---
Author Organization [employer] ([place], [place], [place], [place]) Address [address] [place] [address] Care Team Providers Care Library Clerk Name Role Phone Unavailable Primary Care Provider [...]
--- OUTSIDE RECORDS SUMMARY | 2024-09-09 02:55 | XMS_ITS | Encounter Summary ---
Author Organization [employer] ([place], [place], [place], [place]) Address [address] [place] [address] Care Team Providers Care Fluid Pump Operator Name Role Phone Unavailable Primary Care Provider Unavailabl e Encounter Details Date Type Department Care Team (Late st Contact Info) Description 04/12/2019 Transcribed Document [facility] [place] [facility] [place] [address] ProviderSharon MD [facility] [place] [address] Social History Tobacco Use Types Packs/Day Years Used Date Smoking Tobacco: Never Assessed Sex and Gender Information Value Date Recorded Sex Assigned at Not on file Legal Sex Male 6:54 PM CDT Gender Identity Not on file Sexual Orientation Not on file documented as of this encounter Miscellaneous Notes * Cerner Conversion Note - Historical ProviderMD - 04/12/2019 10:23 AM SUPERINTENDENT MARINE OIL TERMINAL Education-Surgery Entered On: 04/12/2019 13:15 EST Performed On: 04/12/2019 10:23 EST by ASHLEY BREWER RN Teaching/Learning Assessment Barriers To Learning : Vision Impairment, Other: potential for withdrawal Learning Style Preferences Patient : Verbal explanation ASHLEY BREWER RN - 04/12/2019 13:15 EST documented in this encounter Plan of Treatment Not on file documented as of this encounter Visit Diagnoses Not on filedocumented in this encounter
--- OUTSIDE RECORDS SUMMARY | 2024-09-09 02:55 | XMS_ITS | Encounter Summary ---
Author Organization [employer] ([place], [place], [place], [place]) Address [address] [place] [address] Care Team Providers Care Sales Assistant Name Role Phone Unavailable Primary Care Provider Unavailabl e Encounter Details Date Type Department Care Team (Late st Contact Info) Description 04/12/2019 Transcribed Document [facility] [place] [facility] [place] [address] ProviderSharon MD [facility] [place] [address] Social History Tobacco Use Types Packs/Day Years Used Date Smoking Tobacco: Never Assessed Sex and Gender Information Value Date Recorded Sex Assigned at Not on file Legal Sex Male 6:54 PM CDT Gender Identity Not on file Sexual Orientation Not on file documented as of this encounter Miscellaneous Notes * Cerner Conversion Note - Sharon ProviderMD - 04/12/2019 8:17 AM SILVERWARE BUFFER UM Authorization Entered On: 04/12/2019 8:23 EST Performed On: 04/12/2019 8:17 EST by DARBY ELIAS RN Primary Insurance Authorization Authorization and Policy Numbers : Insurance 1 Health Plan: [employer] FED Policy Number: [id number] Authorization Number: Insurance Primary Name : Hiren [id number] Authorization Status-Primary : Drg approved Reference Number-Primary : [id number] Number of Days Authorized-Primary : 9 Day(s) Authorized Service Begin Date-Primary : 04/09/2019 EST Authorized Service End Date-Primary : 04/18/2019 EST Authorization Comments-Primary : Per Availity, IP admit approved DRG NRD 04/19/2019. Historical Authorization Comments-Primary : Comment 1: Inpt auth requested and clinicals submitted via Availity as pt has commercial [place] plan, not Federal as listed. (Alonso Malik, Herrerat Impregnator Operator-Utilization Mgt 04/10/2019 12:42) Comment 2: Clinicals paper faxed. (Alonso Malik Mkt Impregnator Operator-Utilization Mgt 04/10/2019 12:32) DARBY ELIAS RN - 04/12/2019 8:17 EST documented in this encounter Plan of Treatment Not on file documented as of this encounter Visit Diagnoses Not on filedocumented in this encounter
--- OUTSIDE RECORDS SUMMARY | 2024-09-09 02:55 | XMS_ITS | Encounter Summary ---
Author Organization [employer] ([place], [place], [place], [place]) Address [address] [place] [address] Care Team Providers Care Global Head Advertiser Solutions Name Role Phone Unavailable Primary Care Provider Unavailabl e Encounter Details Date Type Department Care Team (Late st Contact Info) Description 04/15/2019 Transcribed Document [facility] [place] [facility] [place] [address] ProviderSharon MD [address] [place] [address] Social History Tobacco Use Types Packs/Day Years Used Date Smoking Tobacco: Never Assessed Sex and Gender Information Value Date Recorded Sex Assigned at Not on file Legal Sex Male 6:54 PM CDT Gender Identity Not on file Sexual Orientation Not on file documented as of this encounter Miscellaneous Notes * Cerner Conversion Note - Sharon ProviderMD - 04/15/2019 12:35 PM HERPETOLOGY TEACHER Behavioral Health Assessment Note Entered On: 04/15/2019 12:45 EST Performed On: 04/15/2019 12:35 EST by SHARON GUERRERO, CLOTH DOUBLING 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 I-TRIAGE Behavioral Health Assessment Note Reason For Behavioral Health Assessment : Pt is a 54 year old male who presented to [facility] for heart concerns. Pt denies current [...] Departure, General Discharge : Unknown SHARON GUERRERO, CLOTH DOUBLING 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 I-TRIAGE - 04/15/2019 12:35 EST Social History (As Of: 04/15/2019 12:45:41 EST) Electronically signed by Radha Villarreal Conversion Humanities Department Chair Cerner at 06/19/2022 4:33 PM CDT documented in this encounter Plan of Treatment Not on file documented as of this encounter Visit Diagnoses Not on filedocumented in this encounter
--- OUTSIDE RECORDS SUMMARY | 2024-09-09 02:55 | XMS_ITS | Encounter Summary ---
Author Organization [employer] ([place], [place], [place], [place]) Address [address] [place] [address] Care Team Providers Care Automatic Nailing Machine Feeder Name Role Phone Unavailable Primary Care Provider Unavailabl e Encounter Details Date Type Department Care Team (Late st Contact Info) Description 04/09/2019 Transcribed Document [facility] Family Medicine [facility] [place] [address] ProviderSharon MD [address] [place] [id number] Social History Tobacco Use Types Packs/Day Years Used Date Smoking Tobacco: Never Assessed Sex and Gender Information Value Date Recorded Sex Assigned at Not on file Legal Sex Male 6:54 PM CDT Gender Identity Not on file Sexual Orientation Not on file documented as of this encounter Miscellaneous Notes * Cerner Conversion Note - Sharon ProviderMD - 04/09/2019 7:55 PM LAWN SPRINKLER INSTALLER Patient: RAUDEL ZEPEDA Age: 54 years Sex: Male : 1965 Associated Diagnoses: None Author: IRVING HERMAN APRN Basic Information PCP: Mosaic Floor Layer: Bisi Chief Complaint recurrent SVT History of Present Illness Mr. Zepeda is a 54-year-old male with past medical history of SVT which he reports having intermittently his entire life and has had an ablation in the past. He does not know who did his ablation although he is states he had it done here at [facility], however there are no available records of this procedure here. He reports having intermittent SVT for the last 2 months, for which he went to his primary care for 1 week ago. His primary care referred him back to Dr. Mathews who is his primary medic technician. When he arrived at Dr. Mathews's office [...] A call was then placed to our medic technician green promotions specialist who recommended amiodarone infusion and transfer for [...] Medical History: Active SVT - Supraventricular tachycardia ([id number]) Family History: No family history items have [...] of motion, Normal strength. Integumentary: Warm, Dry, [place], Intact. Neurologic: Alert, Oriented. Psychiatric: Cooperative, Appropriate [...]
--- OUTSIDE RECORDS SUMMARY | 2024-09-09 02:55 | XMS_ITS | Encounter Summary ---
Author Organization [employer] ([place], [place], [place], [place]) Address [address] [place] [address] Care Team Providers Care Security Ambassador Name Role Phone Unavailable Primary Care Provider Unavailabl e Encounter Details Date Type Department Care Team (Late st Contact Info) Description 04/11/2019 Transcribed Document [facility] [place] [facility] [place] [address] ProviderSharon MD [facility] [place] [address] Social History Tobacco Use Types Packs/Day Years Used Date Smoking Tobacco: Never Assessed Sex and Gender Information Value Date Recorded Sex Assigned at Not on file Legal Sex Male 6:54 PM CDT Gender Identity Not on file Sexual Orientation Not on file documented as of this encounter Miscellaneous Notes * Cerner Conversion Note - Historical ProviderMD - 04/11/2019 5:00 PM BLANCHING 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 Chart Check - Review Order Profile Entered On: 04/11/2019 17:59 EST Performed On: 04/11/2019 17:00 EST by Karen Painter RN Chart Check Powerplans Initiated/Discontinued as Appropriate : Yes Karen Painter RN - 04/11/2019 17:59 EST documented in this encounter Plan of Treatment Not on file documented as of this encounter Visit Diagnoses Not on filedocumented in this encounter
--- OUTSIDE RECORDS SUMMARY | 2024-09-09 02:55 | XMS_ITS | Encounter Summary ---
Author Organization [employer] ([place], [place], [place], [place]) Address [address] [place] [address] Care Team Providers Care Textile Clothing And Footwear Mechanic Name Role Phone Unavailable Primary Care Provider Unavailabl e Encounter Details Date Type Department Care Team (Late st Contact Info) Description 04/15/2019 Transcribed Document [facility] [place] [facility] [place] [address] ProviderSharon MD [address] [place] [address] Social History Tobacco Use Types Packs/Day Years Used Date Smoking Tobacco: Never Assessed Sex and Gender Information Value Date Recorded Sex Assigned at Not on file Legal Sex Male 6:54 PM CDT Gender Identity Not on file Sexual Orientation Not on file documented as of this encounter Miscellaneous Notes * Cerner Conversion Note - Sharon Phillips MD - 04/15/2019 12:39 PM JAVA ENTERPRISE ARCHITECT Kev Melendez MD [address] [place] [phone] Re: RAUDEL ZEPEDA Date of Visit: 04/09/2019 [...] contents is strictly prohibited. Sincerely, JANICE BUCHANAN [address] [facility] [address] [place] [id number] The following document(s) were included in the letter: April 15, 2019 12:32:38 EST - (04/15/2019) Discharge Note documented in this encounter Plan of Treatment Not on file documented as of this encounter Visit Diagnoses Not on filedocumented in this encounter
--- OUTSIDE RECORDS SUMMARY | 2024-09-09 02:55 | XMS_ITS | Encounter Summary ---
Author Organization [employer] ([place], [place], [place], [place]) Address [address] [place] [address] Care Team Providers Care Experimental Worker Name Role Phone Unavailable Primary Care Provider Unavailabl e Encounter Details Date Type Department Care Team (Late st Contact Info) Description 04/12/2019 Transcribed Document [facility] [place] [facility] [place] [address] ProviderSharon MD [address] [place] [address] Social History Tobacco Use Types Packs/Day Years Used Date Smoking Tobacco: Never Assessed Sex and Gender Information Value Date Recorded Sex Assigned at Not on file Legal Sex Male 6:54 PM CDT Gender Identity Not on file Sexual Orientation Not on file documented as of this encounter Miscellaneous Notes * Cerner Conversion Note - Sharon Phillips MD - 04/12/2019 7:55 AM DOCK ASSOCIATE Patient: RAUDEL ZEPEDA Age: 54 years Sex: Male : 1965 Associated Diagnoses: None Author: JEANNE CONLEY MD-CAR Basic Information River Transportation Worker: Bisi Trejo [facility] Health Status Current medications: (Selected) Inpatient [...] influenza virus vaccine, inactivated: 0.5 mL, IntraMuscular, [id number], Home Medications (9) Active doxepin , Oral [...] of motion, Normal strength. Integumentary: Warm, Dry, [employer], Intact. Neurologic: Alert, Oriented. Psychiatric: Cooperative, Appropriate [...]
--- OUTSIDE RECORDS SUMMARY | 2024-09-09 02:55 | XMS_ITS | Encounter Summary ---
Author Organization Healthcare Address [address] [place] [address] Care Team Providers Care Chemical Equipment Sales Engineer Name Role Phone Casey Felix MD Primary Care Provider + [phone] Dotty Askew MD Unavailable [phone] Renetta Delgado LPN Unavailable Unavailable Encounter Details Date Type Department Care Team (Late Contact Info) Description 08/15/2023 Lab Requisition [facility] [address] [place] [address] Juan Pablo Rivas, DO [address] [place] [address] Encounter for general adult medical [...] Department Care Team (Late Contact Info) Description 10/07/2024 3:00 PM EDT Office Visit [facility] [place] [facility] [address] [facility]. [address] [place] [address] Jakub Malave MD [address] [place] [address] documented as of this encounter [...] History not provided 08/18/2023 5:29 PM EDT [facility] Interpretation, Body Fluid Acute inflammatory cells No pathogenic organisms seen Correlation with microbiology studies recommended A resident was involved in the service. I attest I examined the relevant preparations for the specimens and confirmed the diagnosis or interpretation. 08/18/2023 5:29 PM EDT [facility] Pathologist Signature, Body Fluid 08/18/2023 5:29 PM EDT [facility] Comment:Reviewed by: Yamini fong MD LAB CP ASR DISCLAIMER Yes 08/18/2023 5:29 PM EDT [facility] Joint Fluid 08/15/2023 11:5 9 AM EDT 08/15/2023 2:08 PM EDT us Juan Pablo Rivas DO LAB BODY FLUIDS AND STOOLS ORDER VALERIE Final Result [facility] [address] [place] [address] * (ABNORMAL) Body Fluid Cell Count w/ Diff (08/15/2023 11:59 AM EDT) Color, Body fluid Yellow LAB HEMATOLOGY METHOD 08/15/2023 4:01 PM EDT [facility] Appearance, Body fluid Cloudy(A) LAB [facility] Volume, Body fluid 4.0 cc LAB HEMATOLOGY METHOD [facility] Fluid Container SPECIMEN RECEIVED IN EDTA TUBE LAB HEMATOLOGY METHOD 08/15/2023 4:01 PM EDT [facility] Red Blood Cell Count, Body fluid 64 uL LAB HEMATOLOGY METHOD 08/15/2023 4:01 PM [facility] Comment:Test performed by alexi tan method Total Nucleated Cell Count, Body fluid 13,742 uL LAB HEMATOLOGY METHOD 08/15/2023 4:01 PM EDT [facility] Neutrophils %, Body fluid 94 % LAB HEMATOLOGY METHOD [facility]23 [facility] Lymphocytes %, Body fluid 1 % LAB HEMATOLOGY METHOD 08/15/2023 4:01 PM EDT [facility] Monocytes/Macro phages %, Body fluid 5 % LAB HEMATOLOGY METHOD 08/15/2023 4:01 PM EDT [facility] Eosinophils %, Body fluid 0 % LAB HEMATOLOGY METHOD 08/15/2023 4:01 PM [facility] Basophils %, Body fluid 0 % LAB HEMATOLOGY METHOD 08/15/2023 4:01 PM EDT [facility] Lining/Mesothel ial Cells %, Body fluid 0 % LAB HEMATOLOGY METHOD [facility]23 [facility] Neutrophils Absolute (PMN), Body fluid 12,918 uL LAB HEMATOLOGY METHOD 08/15/2023 4:01 PM EDT [facility] Lymphocytes Absolute, Body fluid 137 uL LAB HEMATOLOGY METHOD [facility]23 [facility] Monocytes/Macro phages Absolute, Body fluid 687 uL LAB HEMATOLOGY METHOD 08/15[facility]2023 [facility] Eosinophils Absolute, Body fluid 0 uL LAB HEMATOLOGY METHOD 08/15[facility]23 [facility] Basophils Absolute, Body fluid 0 uL LAB HEMATOLOGY METHOD 08/[facility]23 [facility] Lining/Mesothel ial Cells Absolute, Body fluid 0 uL LAB HEMATOLOGY METHOD 08/15/2023 4:01 PM [facility] Comment, Body fluid NONE LAB HEMATOLOGY METHOD 08/15/2023 4:01 PM EDT [facility] Comment:This is an appended report. These results have been appended to a previously preliminary verified report. Joint Fluid 08/15/2023 11:5 9 AM EDT 08/15/2023 2:08 PM EDT us Gene J Rivas DO LAB BODY FLUIDS AND STOOLS ORDERABLES NO SPECIMEN TYPE/SOURCE Final Result Performing Organization Address [facility] de Phone Number [facility] [address] [place] [address] * Joint Fluid Crystals (08/15/2023 11:59 AM EDT) Crystals, Joint Fluid No Crystals Seen No Crystals Present 08/15/2023 3:09 PM EDT [facility]ALTHC[facility] Joint Fluid 08/15/2023 11:5 9 AM EDT 08/15/2023 2:08 PM EDT us Gene J Rivas DO LAB BODY FLUIDS AND STOOLS ORDER VALERIE Final Result Performing Organization Address [facility] de Phone Number HEALTHC[facility] [address] [place] [address] documented in this encounter Visit Diagnoses Diagnosis [...] documented as of this encounter Care Teams Chemical Equipment Sales Engineer Relationship Specialty Start Date End Date Casey Felix MD [address] [place] [address] PCP - General 09/05/20 Dotty Askew MD [address] [place] [address] Consulting Physician Pediatric Cardiology 09/05/20 Renetta Delgado LPN TCM Nurse 01/05/24 02/04/24 documented as of this encounter
--- OUTSIDE RECORDS SUMMARY | 2024-09-09 02:55 | XMS_ITS | Encounter Summary ---
Author Organization [employer] ([place], [place], [place], [place]) Address [address] [place] [address] Care Team Providers Care Advanced Practice Rn Name Role Phone Unavailable Primary Care Provider Unavailabl e Encounter Details Date Type Department Care Team (Late st Contact Info) Description 04/10/2019 Transcribed Document [facility] Family Medicine [facility] [place] [address] ProviderSharon MD [facility] [place], [place] [address] Social History Tobacco Use Types Packs/Day Years Used Date Smoking Tobacco: Never Assessed Sex and Gender Information Value Date Recorded Sex Assigned at Not on file Legal Sex Male 6:54 PM CDT Gender Identity Not on file Sexual Orientation Not on file documented as of this encounter Miscellaneous Notes * Cerner Conversion Note - Historical ProviderMD - 04/10/2019 12:32 PM SALES VICE PRESIDENT UM Authorization Entered On: 04/10/2019 12:33 EST Performed On: 04/10/2019 12:32 EST by Alonso Malik Mkt Extruding Machine Operator-Utilization Mgt Primary Insurance Authorization Authorization and Policy Numbers : Insurance 1 Health Plan: [employer] Policy Number: [id number] Authorization Number: Insurance Primary Name : [facility] [id number] Authorization Status-Primary : Awaiting callback Authorized Service Begin Date-Primary : 04/09/2019 EST Authorization Comments-Primary : Clinicals paper faxed. Historical Authorization Comments-Primary : No Authorization Comments Found Alonso Malik Mkt Extruding Machine Operator-Utilization Mgt - 04/10/2019 12:32 EST Electronically signed by [facility] Conversion Historical Records Administrator Cerner at 06/19/2022 4:40 PM CDT documented in this encounter Plan of Treatment Not on file documented as of this encounter Visit Diagnoses Not on filedocumented in this encounter
--- OUTSIDE RECORDS SUMMARY | 2024-09-09 02:55 | XMS_ITS | Encounter Summary ---
Author Organization [employer] ([place], [place]) Address [address] [place] [address] Care Team Providers Care Lead Atg Developer Name Role Phone Unavailable Primary Care Provider Unavailabl e Encounter Details Date Type Department Care Team (Late st Contact Info) Description 04/11/2019 Transcribed Document [facility] Radiology [address] [place] [address] Jerrell Kamara MD [address] [place] [address] Social History Tobacco Use Types Packs/Day Years [...] influenza virus vaccine, inactivated: 0.5 mL, IntraMuscular, [id number] labetalol: 20 mg, IV Push, Q1H, PRN: [...] of motion, Normal strength. Integumentary: Warm, Dry, [place], Intact. Neurologic: Alert, Oriented. Psychiatric: Cooperative, Appropriate mood & affect. Results Review Telemetry Admission Weight Todays Weight APR 11 03:58 L 133 L 97 8 / 101 3.5 H 33 0.90 \ Cardiac Markers (Current Encounter/Past 24 Hours) CK MB <1.00 ng/mL 04/10/2019 05:45 Radiology Results (Last 48 hours) [id number] -- 04/09/2019 18:47 CR Chest 1 Vw [...]
--- OUTSIDE RECORDS SUMMARY | 2024-09-09 02:55 | XMS_ITS | Encounter Summary ---
Author Organization [employer] ([place], [place], [place]) Address [address] [place] [address] Care Team Providers Care Administrative Sales Assistant Name Role Phone Unavailable Primary Care Provider Unavailabl e Encounter Details Date Type Department Care Team (Late st Contact Info) Description 04/12/2019 Transcribed Document [facility] [place] [facility] [place] [address] ProviderSharon MD [address] [place] [address] Social History Tobacco Use Types Packs/Day Years Used Date Smoking Tobacco: Never Assessed Sex and Gender Information Value Date Recorded Sex Assigned at Not on file Legal Sex Male 6:54 PM CDT Gender Identity Not on file Sexual Orientation Not on file documented as of this encounter Miscellaneous Notes * Cerner Conversion Note - Sharon Phillips MD - 04/12/2019 8:00 AM WATER SUPERINTENDENT Patient: RAUDEL ZEPEDA Age: 54 years Sex: [...] influenza virus vaccine, inactivated: 0.5 mL, IntraMuscular, [id number] Documented Medications Documented Metoprolol Tartrate 100 mg [...] All Problems Alcohol abuse / SNOMED CT 02005611 / Confirmed Anxiety / SNOMED CT 36607709 / Confirmed History of obstructive sleep apnea / IMO 79285886 / Confirmed Hypertension / SNOMED CT 3040181802 / Confirmed Hypothyroid / SNOMED CT 65855823 / Confirmed Smoker / SNOMED CT 181776924 / Confirmed SVT - Supraventricular tachycardia / SNOMED CT 7835019388 / Confirmed, Active Problems (7) Alcohol abuse [...] Normal range of motion. Integumentary: Warm, Dry, [place]. Neurologic: Alert, Oriented, has some tremors. Psychiatric: Cooperative, Appropriate mood & affect. Results Review Telemetry gambling monitor personally reviewed shows NSR over the last 24 hours The EKG shows sinus rhythm with preexcitation APR 12 04:33 L 132 L 99 7 / 90 4.1 31 0.80 \ APR 12 04:33 \ L 12.1 / 6.5 199 / L 36.5 \ No Radiology Results Found Impression and Plan IMPRESSION: 55 yo male followed by Dr. Mathews [id number] 1 of at least one echo pending [...]
--- OUTSIDE RECORDS SUMMARY | 2024-09-09 02:55 | XMS_ITS | Encounter Summary ---
Author Organization [employer] ([place], [place]) Address [address] [place] [address] Care Team Providers Care Insurance Defense Paralegal Name Role Phone Unavailable Primary Care Provider Unavailabl e Encounter Details Date Type Department Care Team (Late st Contact Info) Description 04/15/2019 Transcribed Document [facility] Medicine [facility] [place] [address] ProviderSharon MD [facility] [place] [address] Social History Tobacco Use Types Packs/Day Years Used Date Smoking Tobacco: Never Assessed Sex and Gender Information Value Date Recorded Sex Assigned at Not on file Legal Sex Male 6:54 PM CDT Gender Identity Not on file Sexual Orientation Not on file documented as of this encounter Miscellaneous Notes * Cerner Conversion Note - Historical ProviderMD - 04/15/2019 2:46 PM GLASSIE Stroke/Warfarin Instructions Entered On: 04/15/2019 14:46 EST Performed On: 04/15/2019 14:46 EST by KATIE KHANNA RN Stroke/Warfarin Instructions Stroke/TIA Discharge Ins : N/A Warfarin Discharge Ins : N/A KATIE KHANNA RN - 04/15/2019 14:46 EST documented in this encounter Plan of Treatment Not on file documented as of this encounter Visit Diagnoses Not on filedocumented in this encounter
--- OUTSIDE RECORDS SUMMARY | 2024-09-09 02:55 | XMS_ITS | Encounter Summary ---
Author Organization [employer] ([place], [place], [place]) Address [address] [place] [address] Care Team Providers Care In Flight Refueling Manager Name Role Phone Unavailable Primary Care Provider Unavailabl e Encounter Details Date Type Department Care Team (Late st Contact Info) Description 04/13/2019 Transcribed Document [facility] [place] [facility] [place] [address] ProviderSharon MD [address] [place] [address] Social History Tobacco Use Types Packs/Day Years Used Date Smoking Tobacco: Never Assessed Sex and Gender Information Value Date Recorded Sex Assigned at Not on file Legal Sex Male 6:54 PM CDT Gender Identity Not on file Sexual Orientation Not on file documented as of this encounter Miscellaneous Notes * Cerner Conversion Note - Sharon ProviderMD - 04/13/2019 1:59 PM CASINO SLOT SUPERVISOR On Going Discharge Planning Entered On: 04/13/2019 14:01 EST Performed On: 04/13/2019 13:59 EST by JUS MATAMOROS Rn-Feather Curling Machine OperatorTraffic Chief Progress Note Discharge Arrangements : Patient Post-Acute [...] Meeting Medical Necessity : Yes JUS MATAMOROS, Rn-Feather Curling Machine Operator - 04/13/2019 13:59 EST Narrative Progress Note Narrative Progress Note : Day 4 - Heparin gtt; Dexa gtt; pt off the unit for ablation; anticipate d/c home with S.O. when stable; OLOP consult on d/c. Historical Progress Note : Anticipate pt will d/c home with S.O. when stable; OLOP consult when ready for d/c. JUS MATAMOROS Rn-Feather Curling Machine Operator - 04/12/19 12:03:20 JUS MATAMOROS Rn-Feather Curling Machine Operator - 04/13/2019 13:59 EST documented in this encounter Plan of Treatment Not on file documented as of this encounter Visit Diagnoses Not on filedocumented in this encounter
--- OUTSIDE RECORDS SUMMARY | 2024-09-09 02:55 | XMS_ITS | Encounter Summary ---
Author Organization [employer] ([place], [place], [place], [place]) Address [address] [place] [address] Care Team Providers Care Fisher Troll Line Name Role Phone Unavailable Primary Care Provider Unavailabl e Encounter Details Date Type Department Care Team (Late st Contact Info) Description 04/15/2019 Transcribed Document [facility] [place] Family Medicine [facility] [place] [address] ProviderSharon MD [facility] [place] [address] Social History Tobacco Use Types Packs/Day Years Used Date Smoking Tobacco: Never Assessed Sex and Gender Information Value Date Recorded Sex Assigned at Not on file Legal Sex Male 6:54 PM CDT Gender Identity Not on file Sexual Orientation Not on file documented as of this encounter Miscellaneous Notes * Cerner Conversion Note - Historical ProviderMD - 04/15/2019 5:00 AM SPOOLING 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 Chart Check - Review Order Profile Entered On: 04/15/2019 6:16 EST Performed On: 04/15/2019 5:00 EST by YEIMY CASTRO RN Chart Check Powerplans Initiated/Discontinued as Appropriate : Yes All Active Orders Reviewed : Yes YEIMY CASTRO RN - 04/15/2019 6:16 EST Electronically signed by Phil [facility] Conversion Hot Mill Roller Cerner at 06/19/2022 4:37 PM CDT documented in this encounter Plan of Treatment Not on file documented as of this encounter Visit Diagnoses Not on filedocumented in this encounter
--- OUTSIDE RECORDS SUMMARY | 2024-09-09 02:55 | XMS_ITS | Encounter Summary ---
Author Organization [facility] Address [address] [place] [address] Care Team Providers Care Perinatal Educator Name Role Phone Casey Felix MD Primary Care Provider [phone] Dotty Askew MD Unavailable [phone] Encounter Details Date Type Department Care Team (Late st Contact Info) Description 07/14/2024 Telephone [facility] [address] [facility] [address] [facility] [place] [address] [place] [address] Social History Tobacco Use Types Packs/Day Years [...] Never 05/13/2024 How often do you attend religious or sikh serv ices? Never 05/13/2024 Do you belong to any clubs o r organizations such as religious groups, unions, fraternal or athletic groups, or [...] and heating? Patient unable to answer 05/13/2024 [facility] - Occupational Stress [...] place to sleep or slept in a group home (including now)? No 12/09/2023 Housing Stability Vital Sign Answer Myron e Recorded In the last 12 months, was t here a time when you were not able to pay the mortgage or rent on time? No 05/13/2024 Number of Times Moved in the Last Year Not on fi le 05/13/2024 At any time in the past 12 m [facility], were you homeless or living in a group home (including now)? No 05/13/2024 CAGE ASSESSMENT [...] drink first t olivia in the morning (EYE-TANK CARPENTER) to steady your nerves or to get [...] Clinic, left VM with call back number [phone]. documented in this encounter Plan of Treatment Upcoming Encounters Date Type Department Care Team (Late st Contact Info) Description 10/07/2024 3:00 PM EDT Office Visit [facility] [address] [place] [address] Jakub Malave MD [address] [place] [address] documented as of this encounter Visit Diagnoses Not on filedocumented in this encounter Additional Health Concerns Assessment Noted Time A fall risk assessment has been complete d for the patient 09/05/2020 11:56 AM EDT A Body Mass Index follow-up plan has been documented for the patient 06/01/2024 11:16 AM EDT documented as of this encounter Care Teams Perinatal Educator Relationship Specialty Start Date End Date Casey Felix MD [address] [place] [address] PCP - General 09/05/20 Dotty Askew MD [address] [place] [address] Consulting Physician Pediatric Cardiology 09/05/20 documented as of this encounter
--- OUTSIDE RECORDS SUMMARY | 2024-09-09 02:55 | XMS_ITS | Encounter Summary ---
Author Organization [employer] ([place], [place], [place]) Address [address] [place] [address] Care Team Providers Care Teaching Pastor Name Role Phone Unavailable Primary Care Provider Unavailabl e Encounter Details Date Type Department Care Team (Late st Contact Info) Description 04/13/2019 Transcribed Document [facility] [place] Medicine Counts include [facility] beds at [facility] [address] ProviderSharon MD [address] [place] [address] Social History Tobacco Use Types Packs/Day Years Used Date Smoking Tobacco: Never Assessed Sex and Gender Information Value Date Recorded Sex Assigned at Not on file Legal Sex Male 6:54 PM CDT Gender Identity Not on file Sexual Orientation Not on file documented as of this encounter Miscellaneous Notes * Cerner Conversion Note - Sharon Phillips MD - 04/13/2019 9:08 AM EQUIPMENT INSTALLER Patient: RAUDEL ZEPEDA Age: 54 years [...] influenza virus vaccine, inactivated: 0.5 mL, IntraMuscular, [id number] Documented Medications Documented Metoprolol Tartrate 100 mg [...] All Problems Alcohol abuse / SNOMED CT 89129151 / Confirmed Anxiety / SNOMED CT 28241806 / Confirmed History of obstructive sleep apnea / IMO 59237652 / Confirmed Hypertension / SNOMED CT 8692652409 / Confirmed Hypothyroid / SNOMED CT 31061546 / Confirmed Smoker / SNOMED CT 644853653 / Confirmed SVT - Supraventricular tachycardia / SNOMED CT 4996218755 / Confirmed, Active Problems (7) Alcohol abuse Anxiety History of obstructive sleep apnea Hypertension Hypothyroid Smoker SVT - Supraventricular tachycardia Objective Intake and Output 24 hour intake, 24 hour output VS/Measurements Vitals Signs (last 24 hrs) Last Charted Minimum Maximum Temp 97.6 (APR 13 04:00) 97.6 (APR 13 04:00) 98 (APR 12 19:35) Apical HR 66 (APR 13 08:07) [...] 17:00) H 106 (B 21:00) MAP 106 (APR 13 07:00) 89 (APR 12 17:00) 121 (B 22:00) SpO2 98 (APR [...] of motion, Normal strength. Integumentary: Warm, Dry, [place], Intact. Neurologic: Alert, Oriented. Psychiatric: Cooperative, Appropriate mood & affect. Results Review Telemetry cafeteria monitor personally reviewed shows NSR 60-70's The EKG [...] 55 yo male followed by Dr. Mathews [id number] 1 of at least one echo pending [...] with EPS/ablation this afternoon. 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
--- OUTSIDE RECORDS SUMMARY | 2024-09-09 02:55 | XMS_ITS | Encounter Summary ---
Author Organization [employer] ([place], [place], [place], [place]) Address [address] [place] [address] Care Team Providers Care Hydrogen Power Plant Engineer Name Role Phone Unavailable Primary Care Provider Unavailabl e Encounter Details Date Type Department Care Team (Late st Contact Info) Description 04/12/2019 Transcribed Document [facility] [place] [facility] [place] [address] ProviderSharon MD [facility] [place], [place] [address] Social History Tobacco Use Types Packs/Day Years Used Date Smoking Tobacco: Never Assessed Sex and Gender Information Value Date Recorded Sex Assigned at Not on file Legal Sex Male 6:54 PM CDT Gender Identity Not on file Sexual Orientation Not on file documented as of this encounter Miscellaneous Notes * Cerner Conversion Note - Historical ProviderMD - 04/12/2019 2:27 PM SKIN PEELING 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 Spiritual Care Short Form Entered On: 04/12/2019 15:58 EST Performed On: 04/12/2019 14:27 EST by CHRISTINE GUTHRIE General Information, Spiritual Care Spiritual Care Referred by : Newspaper Correspondent initiated Reason for Visit : Initial Ministry Provided to : Patient Intervention/Comment/Summary Points : Provided pre-surgery visit and prayer. CHRISTINE GUTHRIE - 04/12/2019 15:57 EST Electronically signed by Phil [facility] Conversion Concessions Manager Cerner at 06/19/2022 4:40 PM CDT documented in this encounter Plan of Treatment Not on file documented as of this encounter Visit Diagnoses Not on filedocumented in this encounter
--- OUTSIDE RECORDS SUMMARY | 2024-09-09 02:55 | XMS_ITS | Encounter Summary ---
Author Organization [employer] ([place], [place], [place], [place]) Address [address] [place] [address] Care Team Providers Care Radio Division Lieutenant Name Role Phone Unavailable Primary Care Provider Unavailabl e Encounter Details Date Type Department Care Team (Late st Contact Info) Description 04/14/2019 Transcribed Document [facility] [place] [facility] [place] [address] ProviderSharon MD [address] [place] [address] Social History Tobacco Use Types Packs/Day Years Used Date Smoking Tobacco: Never Assessed Sex and Gender Information Value Date Recorded Sex Assigned at Not on file Legal Sex Male 6:54 PM CDT Gender Identity Not on file Sexual Orientation Not on file documented as of this encounter Miscellaneous Notes * Cerner Conversion Note - Sharon Phillips MD - 04/14/2019 11:56 AM HEALTH AND WELLNESS SALES CONSULTANT Patient: RAUDEL ZEPEDA Age: 54 years [...] All Problems Alcohol abuse / SNOMED CT 43410160 / Confirmed Anxiety / SNOMED CT 32778946 / Confirmed History of obstructive sleep apnea / IMO 65380516 / Confirmed Hypertension / SNOMED CT 7706742053 / Confirmed Hypothyroid / SNOMED CT 26229767 / Confirmed Smoker / SNOMED CT 734861774 / Confirmed SVT - Supraventricular tachycardia / SNOMED CT 7995096237 / Confirmed, Active Problems (7) Alcohol abuse [...] 10:00) 63 (APR 14 02:00) H 107 (B 15:45) MAP 96 (APR 14 10:00) 80 [...] motion, Normal strength. Integumentary: Warm, Dry, [place], Intact. Neurologic: Alert, Oriented. Psychiatric: Cooperative, Appropriate [...] [address] yo male followed by Dr. Mathews [id number] 1 of at least one echo pending [...] with EPS/ablation this afternoon. talked with primary screw eye assembler that suggest WPW ablation and flutter 04/12/19 [...]
--- OUTSIDE RECORDS SUMMARY | 2024-09-09 02:55 | XMS_ITS | Encounter Summary ---
Author Organization [employer] ([place], [place], [place], [place]) Address [address] [place] [address] Care Team Providers Care Vice President Of Procurement Name Role Phone Unavailable Primary Care Provider Unavailabl e Encounter Details Date Type Department Care Team (Late st Contact Info) Description 04/13/2019 Transcribed Document [facility] [place] Family Medicine [facility] [place] [address] ProviderSharon MD [facility] [place] [address] Social History Tobacco Use Types Packs/Day Years Used Date Smoking Tobacco: Never Assessed Sex and Gender Information Value Date Recorded Sex Assigned at Not on file Legal Sex Male 6:54 PM CDT Gender Identity Not on file Sexual Orientation Not on file documented as of this encounter Miscellaneous Notes * Cerner Conversion Note - Historical ProviderMD - 04/13/2019 4:14 AM NEWSPAPER LIBRARY MANAGER Height and Weight, Routine Entered On: 04/13/2019 4:15 EST Performed On: 04/13/2019 4:14 EST by MORRO GILLIAM RN Height and Weight, Routine Routine Weight Source : Bed scale Routine Weight Entry Format : Metric Routine Weight, Kilograms : 108.3 kg(Converted to: 238 lb 12 oz) Routine Weight Calculation : 108.3 kg Height Source : Stated Height Entry Format : [place] Height, Feet : 6 ft Height, Inches : 1 Inch Clinical Height : 185.42 cm Body Surface Area (BSA), Routine : 2.32 m2 Body Mass Index (BMI), Routine : 31.5 kg/m2 MORRO GILLIAM RN - 04/13/2019 4:14 EST Electronically signed by [facility] Conversion Route Delivery Clerk Cerner at 06/19/2022 4:38 PM CDT documented in this encounter Plan of Treatment Not on file documented as of this encounter Visit Diagnoses Not on filedocumented in this encounter
--- OUTSIDE RECORDS SUMMARY | 2024-09-09 02:55 | XMS_ITS | Encounter Summary ---
Author Organization [employer] ([place], [place], [place]) Address [address] [place] [address] Care Team Providers Care Hide Sorter Name Role Phone Unavailable Primary Care Provider Unavailabl e Encounter Details Date Type Department Care Team (Late st Contact Info) Description 04/09/2019 Transcribed Document [facility] [place] [facility] [place] [address] ProviderSharon MD [address] [place] [address] Social History Tobacco Use Types Packs/Day Years Used Date Smoking Tobacco: Never Assessed Sex and Gender Information Value Date Recorded Sex Assigned at Not on file Legal Sex Male 6:54 PM CDT Gender Identity Not on file Sexual Orientation Not on file documented as of this encounter Miscellaneous Notes * Cerner Conversion Note - Historical ProviderMD - 04/09/2019 7:05 PM NUT CHOPPER Height and Weight, Clinical Dosing Entered On: 04/09/2019 19:05 EST Performed On: 04/09/2019 19:05 EST by MARILYN Shaw RN Height and Weight, Clinical Dosing Height Source : Stated Height Entry Format : [place] Height, Feet : 6 ft(Converted to: 183 [...] Body Mass Index : 32.5 kg/m2 (HI) [place] Body Weight : 79 kg MARILYN Shaw RN - 04/09/2019 19:05 EST documented in this encounter Plan of Treatment Not on file documented as of this encounter Visit Diagnoses Not on filedocumented in this encounter
--- OUTSIDE RECORDS SUMMARY | 2024-09-09 02:55 | XMS_ITS | Encounter Summary ---
Author Organization [employer] ([place], [place], [place]) Address [address] [place] [address] Care Team Providers Care Supervisor Paper Machine Name Role Phone Unavailable Primary Care Provider Unavailabl e Encounter Details Date Type Department Care Team (Late st Contact Info) Description 04/15/2019 Transcribed Document [facility] [place] [facility] [place] [address] ProviderSharon MD [facility] [place] [address] Social History Tobacco Use Types Packs/Day Years Used Date Smoking Tobacco: Never Assessed Sex and Gender Information Value Date Recorded Sex Assigned at Not on file Legal Sex Male 6:54 PM CDT Gender Identity Not on file Sexual Orientation Not on file documented as of this encounter Miscellaneous Notes * Cerner Conversion Note - Historical ProviderMD - 04/15/2019 2:00 AM WHOLESALE LOAN PROCESSOR Juvenile Probation Officer Details Entered On: 04/15/2019 4:16 EST Performed [...]
--- OUTSIDE RECORDS SUMMARY | 2024-09-09 02:55 | XMS_ITS | Encounter Summary ---
Author Organization [employer] ([place], [place], [place]) Address [address] [place] [address] Care Team Providers Care Matte Cutter Name Role Phone Unavailable Primary Care Provider Unavailabl e Encounter Details Date Type Department Care Team (Late st Contact Info) Description 04/10/2019 Transcribed Document [facility] Radiology [address] [place] [address] Jerrell Kamara MD [address] [place] [address] Social History Tobacco Use Types Packs/Day Years [...] influenza virus vaccine, inactivated: 0.5 mL, IntraMuscular, [id number] labetalol: 20 mg, IV Push, Q1H, PRN: [...] of motion, Normal strength. Integumentary: Warm, Dry, [place], Intact. Neurologic: Alert, Oriented. Psychiatric: Cooperative, Appropriate [...]
--- OUTSIDE RECORDS SUMMARY | 2024-09-09 02:55 | XMS_ITS | Encounter Summary ---
Author Organization [employer] ([place], [place], [place], [place]) Address [address] [place] [address] Care Team Providers Care Chemical Compounder Name Role Phone Unavailable Primary Care Provider Unavailabl e Encounter Details Date Type Department Care Team (Late st Contact Info) Description 04/19/2019 Transcribed Document [facility] [place] [facility] [place] [address] ProviderSharon MD [place] [address] Social History Tobacco Use Types Packs/Day Years Used Date Smoking Tobacco: Never Assessed Sex and Gender Information Value Date Recorded Sex Assigned at Not on file Legal Sex Male 6:54 PM CDT Gender Identity Not on file Sexual Orientation Not on file documented as of this encounter Miscellaneous Notes * Cerner Conversion Note - Sharon ProviderMD - 04/19/2019 9:27 AM CLINICAL ADMISSIONS MANAGER UM Authorization Entered On: 04/19/2019 9:27 EST Performed On: 04/19/2019 9:27 EST by DARBY ELIAS RN Primary Insurance Authorization Authorization and Policy Numbers : Insurance 1 Health Plan: [employer] FED Policy Number: [id number] Authorization Number: Insurance Primary Name : Hiren [id number] Authorization Status-Primary : Drg approved Reference Number-Primary : [id number] Number of Days Authorized-Primary : 9 Day(s) Authorized Service Begin Date-Primary : 04/09/2019 EST Authorized Service End Date-Primary : 04/18/2019 EST Authorization Comments-Primary : Provided Dc Date/dispo to Faye via phone call Historical Authorization Comments-Primary : Comment 1: Per [employer], IP admit approved DRG NRD 04/19/2019. (DARBY ELIAS RN 04/12/2019 08:17) Comment 2: Inpt auth requested and clinicals submitted via [employer] as pt has commercial [place] plan, not Federal as listed. (Alonso Malik Mkt Desktop Support Technician-Utilization Mgt 04/10/2019 12:42) Comment 3: Clinicals paper faxed. (Alonso Malik Mkt Desktop Support Technician-Utilization Mgt 04/10/2019 12:32) DARBY ELIAS RN - 04/19/2019 9:27 EST Electronically signed by [facility] Conversion Pega Developer Cerner at 06/19/2022 4:40 PM CDT documented in this encounter Plan of Treatment Not on file documented as of this encounter Visit Diagnoses Not on filedocumented in this encounter
--- OUTSIDE RECORDS SUMMARY | 2024-09-09 02:55 | XMS_ITS | Encounter Summary ---
Author Organization [employer] ([place], [place], [place], [place]) Address [address] [place] [address] Care Team Providers Care Delivery Table Operator Name Role Phone Unavailable Primary Care Provider Unavailabl e Encounter Details Date Type Department Care Team (Late st Contact Info) Description 04/13/2019 Transcribed Document [facility] [place] [facility] [address] ProviderSharon MD [address] [place] [address] Social History Tobacco Use Types Packs/Day Years Used Date Smoking Tobacco: Never Assessed Sex and Gender Information Value Date Recorded Sex Assigned at Not on file Legal Sex Male 6:54 PM CDT Gender Identity Not on file Sexual Orientation Not on file documented as of this encounter Miscellaneous Notes * Cerner Conversion Note - Sharon ProviderMD - 04/13/2019 9:30 AM HEAD LINEMAN [facility] Main OR PACU Summary Primary Physician: SHILO MONTES DE OCA MD-[facility] Finalized Date/Time: 04/13/19 16:18:29 Pt. Name: RAUDEL ZEPEDA D.O.B./Sex: 1965 Male Med Rec #: [id number] Physician: MARLEY BERRIOS MD Financial #: [id number] Pt. Type: I Room/Bed: 14/1 Admit/Disch: 04/09/19 18:47:00 - Institution: [facility] Main OR PACU I Case Times Entry 1 In PACU I 04/13/19 15:35:00 Ready for PACU 04/13/19 16:13:00 Discharge Discharge from PACU 04/13/19 16:13:00 I Last Modified By: DEBORA MENDENHALL RN 04/13/19 16:17:58 [facility] Main OR PACU I Case Times Audit 04/13/19 16:17:58 District Fire Chief: [id number] Modifier: [id number] <+> 1 Ready for PACU Discharge <+> 1 Discharge from PACU I Finalized By: DEBORA MENDENHALL RN Document Signatures Signed By: DEBORA MENDENHALL RN 04/13/19 16:18 Electronically signed by Phil [facility] Conversion Choirmaster Cerner at 06/19/2022 4:35 PM CDT documented in this encounter Plan of Treatment Not on file documented as of this encounter Visit Diagnoses Not on filedocumented in this encounter
--- OUTSIDE RECORDS SUMMARY | 2024-09-09 02:55 | XMS_ITS | Encounter Summary ---
Author Organization [employer] ([place], [place], [place], [place]) Address [address] [place] [address] Care Team Providers Care Terrazzo Journeyman Name Role Phone Unavailable Primary Care Provider Unavailabl e Encounter Details Date Type Department Care Team (Late st Contact Info) Description 04/14/2019 Transcribed Document [facility] [place] [facility] [address] [place] [address] Social History Tobacco Use Types Packs/Day Years Used Date Smoking Tobacco: Never Assessed Sex and Gender Information Value Date Recorded Sex Assigned at Not on file Legal Sex Male 6:54 PM CDT Gender Identity Not on file Sexual Orientation Not on file documented as of this encounter Miscellaneous Notes * Cerner Conversion Note - Historical ProviderMD - 04/14/2019 9:56 AM SUPERVISOR CIGAR PROCESSING Field Scout Details Entered On: 04/14/2019 11:23 EST Performed [...] : Appropriate Arterial Line : No SYLVAIN FELICIANO, HORTENCIA - 04/14/2019 11:22 EST documented in this encounter Plan of Treatment Not on file documented as of this encounter Visit Diagnoses Not on filedocumented in this encounter
--- OUTSIDE RECORDS SUMMARY | 2024-09-09 02:55 | XMS_ITS | Encounter Summary ---
Author Organization [facility] ([place], [place]) Address [address] [place] [address] Care Team Providers Care Wool Washing Machine Operator Name Role Phone Unavailable Primary Care Provider Unavailabl e Encounter Details Date Type Department Care Team (Late st Contact Info) Description 04/11/2019 Transcribed Document [facility] [place] [facility] [place] [address] ProviderSharon MD [address] [place] [address] Social History Tobacco Use Types Packs/Day Years Used Date Smoking Tobacco: Never Assessed Sex and Gender Information Value Date Recorded Sex Assigned at Not on file Legal Sex Male 6:54 PM CDT Gender Identity Not on file Sexual Orientation Not on file documented as of this encounter Miscellaneous Notes * Cerner Conversion Note - Sharon ProviderMD - 04/11/2019 10:19 AM DATA CAPTURE SPECIALIST Pain Assessment Entered On: 04/15/2019 1:49 [...] the text rendition version of the form. Electronically signed by Radha Villarreal Conversion Evening Or Night Nurse Supervisor Cerner at 06/19/2022 4:41 PM CDT documented in this encounter Plan of Treatment Not on file documented as of this encounter Visit Diagnoses Not on filedocumented in this encounter
--- OUTSIDE RECORDS SUMMARY | 2024-09-09 02:55 | XMS_ITS | Encounter Summary ---
Author Organization [employer] ([place], [place], [place], [place]) Address [address] [place] [address] Care Team Providers Care Fruit Pitter Name Role Phone Unavailable Primary Care Provider Unavailabl e Encounter Details Date Type Department Care Team (Late st Contact Info) Description 04/13/2019 Transcribed Document [facility] [place] [facility] [place] [address] ProviderSharon MD [address] [place] [address] Social History Tobacco Use Types Packs/Day Years Used Date Smoking Tobacco: Never Assessed Sex and Gender Information Value Date Recorded Sex Assigned at Not on file Legal Sex Male 6:54 PM CDT Gender Identity Not on file Sexual Orientation Not on file documented as of this encounter Miscellaneous Notes * Cerner Conversion Note - Sharon Phillips MD - 04/13/2019 5:34 PM TITLE I INSTRUCTIONAL ASSISTANT Patient: RAUDEL ZEPEDA Age: 54 Years Sex: Male : 1965 Turbine Operator: Hardik Benavidez MD Indication: 55 yo here [...] follow-up with Dr. Mathews. Codes: SVT ablation (08841); additional SVT ablation (53264); 3D mapping (92088), LA pacing and recording (24521), intracardiac echo (69652), arterial line placement (67155), induce post IV drug (09935), vascular access with ultrasound. Electronically signed by Radha Villarreal Conversion Cupola Operator Insulation Cerner at 06/19/2022 4:28 PM CDT documented in this encounter Plan of Treatment Not on file documented as of this encounter Visit Diagnoses Not on filedocumented in this encounter
--- OUTSIDE RECORDS SUMMARY | 2024-09-09 02:55 | XMS_ITS | Encounter Summary ---
Author Organization [employer] ([place], [place], [place], [place]) Address [address] [place] [address] Care Team Providers Care General Lithographic Worker Name Role Phone Unavailable Primary Care Provider Unavailabl e Encounter Details Date Type Department Care Team (Late st Contact Info) Description 04/15/2019 Transcribed Document [facility] [place] Family Medicine [facility] [place] [address] ProviderSharon MD [address] [place] [address] Social History Tobacco Use Types Packs/Day Years Used Date Smoking Tobacco: Never Assessed Sex and Gender Information Value Date Recorded Sex Assigned at Not on file Legal Sex Male 6:54 PM CDT Gender Identity Not on file Sexual Orientation Not on file documented as of this encounter Miscellaneous Notes * Cerner Conversion Note - Sharon ProviderMD - 04/15/2019 2:47 PM BRONC BREAKER Nursing Discharge Summary Entered On: 04/15/2019 14:47 EST Performed On: 04/15/2019 14:47 EST by KATIE KHANNA cage/vault supervisor Documentation Discharge Date/Time : 04/15/2019 15:46 EST KATIE KHANNA, RN - 04/15/2019 16:33 EST Patient Disposition, [...] 04/15/2019 14:47 EST Electronically signed by Phil [facility] Conversion Heat And Frost Insulator Cerner at 06/19/2022 4:36 PM CDT documented in this encounter Plan of Treatment Not on file documented as of this encounter Visit Diagnoses Not on filedocumented in this encounter
--- OUTSIDE RECORDS SUMMARY | 2024-09-09 02:55 | XMS_ITS | Encounter Summary ---
Author Organization [employer] ([place], [place], [place], [place]) Address [address] [place] [address] Care Team Providers Care Inside Sales Associate Name Role Phone Unavailable Primary Care Provider Unavailabl e Encounter Details Date Type Department Care Team (Late st Contact Info) Description 04/13/2019 Transcribed Document [facility] [place] [facility] [place] [address] ProviderSharon MD [facility] [place] [address] Social History Tobacco Use Types Packs/Day Years Used Date Smoking Tobacco: Never Assessed Sex and Gender Information Value Date Recorded Sex Assigned at Not on file Legal Sex Male 6:54 PM CDT Gender Identity Not on file Sexual Orientation Not on file documented as of this encounter Miscellaneous Notes * [employer]ner Conversion Note - Historical ProviderMD - 04/13/2019 2:00 AM RN MED SURG Marine Equipment Engineer Details Entered On: 04/13/2019 1:05 EST Performed [...]
--- OUTSIDE RECORDS SUMMARY | 2024-09-09 02:55 | XMS_ITS | Encounter Summary ---
Author Organization [employer] ([place], [place]) Address [address] [place] [address] Care Team Providers Care Spinning Lathe Operator Hydraulic Name Role Phone Unavailable Primary Care Provider Unavailabl e Encounter Details Date Type Department Care Team (Late st Contact Info) Description 04/12/2019 Transcribed Document [facility] [place] [facility] [place] [address] ProviderSharon MD [address] [place] [address] Social History Tobacco Use Types Packs/Day Years Used Date Smoking Tobacco: Never Assessed Sex and Gender Information Value Date Recorded Sex Assigned at Not on file Legal Sex Male 6:54 PM CDT Gender Identity Not on file Sexual Orientation Not on file documented as of this encounter Miscellaneous Notes * Cerner Conversion Note - Sharon ProviderMD - 04/12/2019 11:58 AM TAX EVALUATOR Initial Discharge Planning Entered On: 04/12/2019 12:02 EST Performed On: 04/12/2019 11:58 EST by JUS MATAMOROS Rn-Tooth Clerk Initial Assessment I Previously Documented Living Environment : No qualifying data available. Living Situation : Home Patient Lives With : Significant other(s) Is the Patient a Caregiver at Home? : No Emergency Contact #1 : Gracie Chowdary Emergency Contact #1 Emergency Contact #1 Relationship : Signigicant Other Emergency Contact #2 : Kaye Leos Emergency Contact #2 Emergency Contact #2 Relationship : daughter Enter Doctors Name : Kevted Melendez Does Patient have PCP Listed? : Yes Medical Durable Power of Development Director Name : None Legal Guardian : No Is Guardianship Needed : No JUS MATAMOROS Rn-Tooth Clerk - 04/12/2019 11:58 EST Initial Assessment II Sensory and Motor Deficits : Weakness Current Home Treatments and Equipment : None MATAMOROS, JUS, Rn-Tooth Clerk - 04/12/2019 11:58 EST Discharge Needs I Anticipated Discharge Date : 04/15/2019 EST Anticipated Discharge To, CM : Home with family care, Home with home health, detention facility Current Home Treatment/Equipment : Current Home Treatment/Equipment No qualifying data available. Documentation Status Complete : Yes JUS MATAMOROS Rn-Tooth Clerk - 04/12/2019 11:58 EST Discharge Needs II Professional Skilled Services : Professional Skilled Services No qualifying data available. Needs Assistance with Transportation : No Discharge Options Discussed with Patient : Home Health, Substance abuse/mental health JUS MATAMOROS Rn-Tooth Clerk - 04/12/2019 11:58 EST Narrative Note Narrative Note : Day 1 - Chest Pain Hx ETOH Abuse, Htn, CHF Low Readmission Risk Cardiology Pt to have Lexiscan today; bedside RN Virgil states she needs consent from NO. CM spoke with pt's Pillo Chowdary and explained without HCS/AD - need to obtain consent from NOK - she identifies pt's two daughters Kaye Leos [phone]; Audelia Richardson [phone]. Informed Virgil of numbers to contact [facility] for consent. Met pt - awake in bed; pt states his PCP is Kev Melendez in [place]; that he requires assistance at home with his ADL's from Pillo Chowdary. Pt has no hx of hhc or STR - has had inpatient [facility] Re[facility] [place]. Anticipate pt will need [facility] referral when medically stable for discharge. JUS MATAMOROS Rn-Tooth Clerk - 04/12/2019 11:58 EST documented in this encounter Plan of Treatment Not on file documented as of this encounter Visit Diagnoses Not on filedocumented in this encounter
--- OUTSIDE RECORDS SUMMARY | 2024-09-09 02:55 | XMS_ITS | Encounter Summary ---
Author Organization [employer] ([place], [place], [place], [place]) Address [address] [place] [address] Care Team Providers Care Nut Sheller Name Role Phone Unavailable Primary Care Provider Unavailabl e Encounter Details Date Type Department Care Team (Late st Contact Info) Description 04/15/2019 Transcribed Document [facility] [place] [facility] [place] [address] ProviderSharon MD [address] [place] [address] Social History Tobacco Use Types Packs/Day Years Used Date Smoking Tobacco: Never Assessed Sex and Gender Information Value Date Recorded Sex Assigned at Not on file Legal Sex Male 6:54 PM CDT Gender Identity Not on file Sexual Orientation Not on file documented as of this encounter Miscellaneous Notes * [employer]ner Conversion Note - Sharon Phillips MD - 04/15/2019 11:07 AM OPERATION SPECIALIST Patient: RAUDEL ZEPEDA Age: 54 years Sex: [...] All Problems Alcohol abuse / SNOMED CT 30052839 / Confirmed Anxiety / SNOMED CT 11174487 / Confirmed History of obstructive sleep apnea / IMO 42033001 / Confirmed Hypertension / SNOMED CT 3119066497 / Confirmed Hypothyroid / SNOMED CT 81856485 / Confirmed Smoker / SNOMED CT 638458560 / Confirmed SVT - Supraventricular tachycardia / SNOMED CT 2797775217 / Confirmed, Active Problems (7) Alcohol abuse [...] of motion, Normal strength. Integumentary: Warm, Dry, [place], Intact. Neurologic: Alert, Oriented. Psychiatric: Cooperative, Appropriate [...] 55 yo male followed by Dr. Mathews [id number] 1 of at least one echo pending [...] with EPS/ablation this afternoon. 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
--- OUTSIDE RECORDS SUMMARY | 2024-09-09 02:55 | XMS_ITS | Encounter Summary ---
Author Organization [employer] ([place], [place], [place]) Address [address] [place] [address] Care Team Providers Care Putaway Driver Name Role Phone Unavailable Primary Care Provider Unavailabl e Encounter Details Date Type Department Care Team (Late st Contact Info) Description 04/12/2019 Transcribed Document [facility] [place] [facility] [place] [address] ProviderSharon MD [address] [place] [id number] Social History Tobacco Use Types Packs/Day Years Used Date Smoking Tobacco: Never Assessed Sex and Gender Information Value Date Recorded Sex Assigned at Not on file Legal Sex Male 6:54 PM CDT Gender Identity Not on file Sexual Orientation Not on file documented as of this encounter Miscellaneous Notes * [employer]ner Conversion Note - Sharon ProviderMD - 04/12/2019 7:59 PM EDITOR HOUSE ORGAN DATE OF SERVICE: 04/12/2019 LEXISCAN MYOVIEW PERFUSION [...] Normal left ventricular systolic function post stress. /[id number] Norbert Cardenas MD SSL/AQ / SSL / MODL /[id number] CC: Alonso Melendez Dr. Electronically signed by [facility] Conversion Aoc Director Combat Plans Officer Cerner at 06/19/2022 4:41 PM CDT documented in this encounter Plan of Treatment Not on file documented as of this encounter Visit Diagnoses Not on filedocumented in this encounter
--- OUTSIDE RECORDS SUMMARY | 2024-09-09 02:55 | XMS_ITS | Encounter Summary ---
Author Organization [email or web address] ([place], [place], [place], [place]) Address [address] [place] [address] Care Team Providers Care Director Shopper Marketing Name Role Phone Unavailable Primary Care Provider Lilia tsang Encounter Details Date Type Department Care Team (Late st Contact Info) Description 04/12/2019 Transcribed Document [facility] Family Medicine [facility] [place] [address] ProviderSharon MD [address] [place] [id number] Social History Tobacco Use Types Packs/Day Years Used Date Smoking Tobacco: Never Assessed Sex and Gender Information Value Date Recorded Sex Assigned at Not on file Legal Sex Male 6:54 PM CDT Gender Identity Not on file Sexual Orientation Not on file documented as of this encounter Miscellaneous Notes * Cerner Conversion Note - Sharon ProviderMD - 04/12/2019 4:49 PM WIRE STRAIGHTENING 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 Patient: RAUDEL ZEPEDA Age: 54 [...] influenza virus vaccine, inactivated: 0.5 mL, IntraMuscular, [id number] Documented Medications Documented Metoprolol Tartrate 100 mg [...] History of obstructive sleep apnea / IMO [id number] / Confirmed SVT - Supraventricular tachycardia / SNOMED CT [id number] / Confirmed, Active Problems (7) Alcohol abuse Anxiety History of obstructive sleep apnea Hypertension Hypothyroid Smoker SVT - Supraventricular tachycardia Physical Examination VS/Measurements Vitals Signs (last 24 hrs) Last Charted Minimum Maximum Temp 98.1 (APR 12 08:00) 98.1 (APR 12 08:00) 98.6 (APR 11 20:00) Apical HR 69 (APR 12 10:45) 69 [...] 09) Plt 199 (APR 12) 218 (APR 09) 251 (APR 08) 250 (APR 09) Na L 132 (APR 10) L 133 (APR 09) L 133 (APR 08) 140 (APR 09) K 4.1 (APR 10) 3.5 (APR 09) 3.9 (APR 08) L 3.1 (APR 08) Cl L 99 (APR 10) L 97 (APR 11) L 95 (APR 08) L 100 (APR 09) CO2 31 (APR 12) H 33 (APR 11) H 33 (APR 08) H 34 (APR 09) BUN 7 (APR 10) 8 (APR 09) 8 (APR 08) 9 (APR 09) Cr 0.80 (B 10) 0.90 (APR 09) 1.00 (APR 08) 1.00 (APR 09) Glu R 90 (APR 10) 101 (B 09) H 214 (APR 08) 85 (APR [...]
[2024-09-09] MEDS: PIPERACILLIN/TAZO 4.5 GM in 0.9 % SODIUM CHLORIDE 100 ML IV (03:09)
[2024-09-09 03:13] LABS: Albumin Level 2.9 g/dl (3.5-5.0); Chloride 100 mmol/L (98-107)
[2024-09-09 03:14] LABS: Potassium 3.5 mmoL/L (3.5-5.1); Sodium 134 mmol/L (136-145)
[2024-09-09 03:16] LABS: Alanine Aminotransferase 17 U/L (12-78); Alkaline Phosphatase 404 U/L (38-126); Aspartate Amino Transferase 59 U/L (17-59); Bilirubin,Total 1.3 mg/dl (0.2-1.3); Blood Urea Nitrogen 9 mg/dl (9-20); Creatinine Clearance Estimated 102 mL/min (50-200); Creatinine,Serum 1.20 mg/dl (0.66-1.25); Estimated Glomerular Filt Rate 62 ml/min (>60); GFR (African American) 75 ML/MIN (>60)
[2024-09-09 03:17] LABS: Albumin/Globulin Ratio 0.8 (1.1-1.8); Calcium 7.5 mg/dl (8.4-10.2); Globulin 3.7 g/dL (1.3-3.2); Glucose 106 mg/dl (74-100); INR 1.29 (0.9-1.1); Lipase 90 U/L (23-300); Prothrombin Time 14.1 seconds (10.1-12.5); Total Protein,Serum 6.6 g/dl (6.3-8.2)
[2024-09-09 03:22] LABS: C-Reactive Protein 56.3 mg/L (0-4)
[2024-09-09 03:31] LABS: Troponin I 0.02 ng/ml (0.00-0.034)
[2024-09-09 03:34] LABS: Hematocrit 29.7 % (42.0-52.0); Hemoglobin 9.7 g/dL (14.1-18.0); Immature Granulocytes % 0.4 %; Mean Corpuscular HGB Conc 32.7 g/dL (31.8-35.4); Mean Corpuscular Hemoglobin 28.3 pg (27.0-31.2); Mean Corpuscular Volume 86.6 fl (80-94); Nucleated Red Blood Cells % 1.3 %; Platelet Count 189 K/mm3 (142-424); Red Blood Count 3.43 M/mm3 (4.60-6.20); Red Cell Distribution Width-SD 70.6 fL; White Blood Count 7.1 K/mm3 (4.8-10.8)
[2024-09-09] MEDS: SODIUM CHLORIDE 0.9% 10ML SYR (RAD ONLY) 10 ML IV (03:45)
[2024-09-09] MEDS: 0.9 % SODIUM CHLORIDE 50 ML VIAL IV (03:45)
[2024-09-09] MEDS: IOPAMIDOL-370 (76%);100ML BOTTLE 80 ML IV (03:45)
[2024-09-09 03:51] LABS: NT Pro Brain Natriuretic Pep. 8640 pg/mL (0-125)
[2024-09-09] MEDS: ALBUMIN HUMAN 12.5 GM/50 ML BAG IV ×2 (04:04)
[2024-09-09 04:31] LABS: Lactate Venous 3.8 mmol/L (0.4-2.0); VBG HCO3 23.4 mmol/L (23-30); VBG PCO2 48.0 mmol/L (35-51); VBG PH 7.31 mmol/L (7.31-7.41); VBG PO2 45.6 mmol/L (28-40)
[2024-09-09 04:36] LABS: Occult Blood,Stool Negative (Negative)
[2024-09-09 05:10] LABS: Thyroid Stimulating Hormone 30.00 uIU/mL (0.465-4.68)
[2024-09-09 05:30] LABS: Microscopic, Urine URINE MICROSCOPIC (MICROSCOPIC)
[2024-09-09 05:32] LABS: Color,Urine YELLOW (Yellow); Glucose,Urine (UA) Negative (Negative); Ketones,Urine Negative (Negative); Leukocyte Esterase,Urine Negative (Negative); PH,Urine 6.0 (5.0-8.5); Protein,Urine 1+ (Negative); Specific Gravity, Urine 1.010 (1.005-1.030); Urobilinogen,Urine 1.0 EU/dl (0.2)
[2024-09-09 05:38] LABS: Free T4 (Free Thyroxine) 1.34 ng/dl (0.78-2.19)
[2024-09-09 05:40] LABS: Bilirubin,Urine 1+ (Negative)
[2024-09-09 05:44] LABS: Barbiturates Screen,Urine Negative ng/ml (<200)
[2024-09-09 05:45] LABS: Amphetamine/Metha Screen,Urine Negative ng/ml (<1000); Benzodiazepines Screen,Urine Positive ng/ml (<200)
[2024-09-09 05:47] LABS: Methadone Screen,Urine Negative ng/ml (<300)
[2024-09-09 05:48] LABS: Opiate Screen,Urine Negative ng/ml (<300)
[2024-09-09 05:49] LABS: Phencyclidine Screen,Urine Negative ng/ml (<25)
[2024-09-09 05:54] LABS: Bacteria,Urine Trace /lpf
--- NOTE | 2024-09-09 06:15 | PC.NURSE ---
pt arrived to floor from ED via stretcher at 0606.
[2024-09-09 06:24] LABS: Anion Gap 14.5 mEq/L (5-15); Carbon Dioxide 23 mmol/L (22.0-30.0)
--- NOTE | 2024-09-09 06:37 | P.HP_ITS ---
<Statement entered by Jorje Anderson MD - 09/13/24 16:19> Personally evaluated patient and agree with plan of care as outlined by the SK[facility]OPPER. History of Present Illness *Admission Date: 09/09/24 *Reason for visit:: Bloody diarrhea *History of present illness: Mr. Richardson is a 59-year-old male presents to ER with complaints of bloody diarrhea. Patient has a past medical history of congestive HFrEF, atrial fibrillation, hypertension, pulmonary hypertension, COPD, cirrhosis, alcohol abuse, and nicotine dependence. Patient reports for the past 4 days he has been having loose stools 4-5 times daily. He states he was using a towel this evening to clean himself and noticed there was blood on the towel after the dog started to lick it. He states that he had been using the same towel all day and cannot quantify how much blood was on the towel. He reports the blood was bright red. He reports his belly and legs are sore from increased swelling. Patient is noncompliant with home medications. He reports chronic shortness of breath unchanged from baseline. He also reports lightheadedness and chills. Also reports chronic cough. He states he has cut back from 1/5 of alcohol to a pint of Bry Jackson which he consumed this evening. He also reports he cut down from 2 packs cigarettes to 1 pack a day. Patient denies fever congestion, runny nose, chest pain, nausea, vomiting, constipation, headache, dizziness, or syncope. [facility] Disclaimer: The information contained in this section may have been updated after the patient was seen, as this information can be updated by other users. 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 Testicular swelling, right Hypertension Tobacco abuse Alcohol abuse Tobacco use Paroxysmal atrial fibrillation Alcoholism Anxiety GERD (gastroesophageal reflux disease) Laceration of finger, left, complicated COPD (chronic obstructive pulmonary disease) Pulmonary hypertension Cirrhosis, alcoholic CHF (congestive heart failure) Hypertension Atrial fibrillation with rapid ventricular response Exposure to COVID-19 virus Surgical History History of discectomy History of cardiac radiofrequency ablation Family History Other Cancer Hypertension Stroke Substance abuse Social History Smoking Status: Never smoker alcohol intake: current alcohol intake frequency: 3 or more drinks per day substance use type: denies use current occupational status: unemployed Travel in the last 8 weeks?: None household members: significant other housing: house 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 current occupational exposures/hazards: No caffeine: Yes Other Medical History Have you received the Flu Vaccine for this season: No Have you received the Pneumonia Vaccine: No Review of Systems Constitutional Constitutional: Reports chills, Denies fever(s) and Denies headache(s) ENT Ears, Nose, Mouth, and Throat: Denies dizziness, Denies headache(s) and Denies nasal discharge *Cardiovascular Cardiovascular: Denies chest pain, Reports dyspnea (Chronic and unchanged from baseline) and Denies lightheadedness *Respiratory Respiratory: Reports cough (Unable to expectorate) and Reports dyspnea (Chronic and unchanged from baseline) *Gastrointestinal Gastrointestinal: Denies constipation, Reports fecal incontinence, Reports hematochezia, Reports loose stools, Denies nausea and Denies vomiting *Musculoskeletal Musculoskeletal: Reports system reviewed and no additional complaints, except as documented *Neurologic Neurologic: Denies dizziness and Denies headache(s) Meds Home Medications and Allergies Home Medications ?Medication ?Instructions ?Recorded ?Confirmed ?Type ferrous sulfate 324 mg (65 mg 324 mg PO DAILY #90 tabs 06/15/24 08/06/24 Rx iron) tablet,delayed release metoprolol succinate 100 mg 100 mg PO DAILY #30 tabs 0 06/15/24 08/06/24 Rx tablet,extended release 24 hr levothyroxine 125 mcg tablet 125 mcg PO DAILYDM 08/06/24 History sertraline 100 mg tablet 100 mg PO DAILY 07/16/2408/25 History thiamine HCl (vitamin B1) 100 mg 100 mg PO DAILY 07/1608/06/24 History tablet trazodone 100 mg tablet 100 mg PO HS 07/17/24 History spironolactone 25 mg tablet 25 mg PO DAILY 30 days #30 tabs 07/20/24 08/06/24 Rx gabapentin 300 mg capsule 300 mg PO HS 30 days #30 cap s 08/07/24 Rx naltrexone 50 mg tablet 50 mg PO DAILY 30 days #30 t abs 08/07/24 Rx bumetanide 2 mg tablet 2 mg PO DAILY 30 days #60 ta bs 08/13/24 Rx dapagliflozin propanediol 10 mg 10 mg PO DAILY 30 days #30 tabs 08/13/24 Rx tablet (Farxiga) diltiazem HCl 180 mg 180 mg PO DAILY 30 days #30 caps 08/13/24 Rx capsule,extended release 24 hr pantoprazole 40 mg tablet,delayed 40 mg PO HS 30 days #30 tabs 08/13/24 Rx release rivaroxaban 10 mg tablet (Xarelto) 20 mg (2 x 10 mg) P O QPMWITHMEAL 08/13/24 Rx 30 days #60 tabs New Prescriptions to Start Prescriptions: Allergies Allergy/AdvReac Type Severity Reaction Status Date / Time hydrochlorothiazide AdvReac Unknown Other Verified 06/15/24 10:14 Exam Data for Last 24 hours Vital signs and Labs for Last 24 Hours: Temp Pulse Resp BP Pulse Ox O2 Del Method O2 Flow Rate 97.6 F 112 H 18 115/84 91 L Nasal Cannula 2 09/09/24 06:23 09/09/24 06:23 09/09/24 06:23 09/09/24 06:23 09/09/24 06:01 09/09/24 06:23 09/09/24 06:23 Laboratory Results - last 24 hr 09/09/24 02:50: PT 14.1 H, INR 1.29 H, Sodium 134 L, Potassium 3.5, Chloride 100, Carbon Dioxide 23, Anion Gap 14.5, BUN 9, Creatinine 1.20, Estimated Creat Clear 102, Estimated GFR 62, Est GFR ( Amer) 75, Glucose 106 H, Lactate 2.5 H, Calcium 7.5 L, Total Bilirubin 1.3, AST 59, ALT 17, Alkaline Phosphatase 404 H, Troponin I 0.02, C-Reactive Protein 56.3 H, Total Protein 6.6, Albumin 2.9 L, Globulin 3.7 H, Albumin/Globulin Ratio 0.8 L, Lipase 90 09/09/24 03:23: WBC 7.1, RBC 3.43 L, Hgb 9.7 L, Hct 29.7 L, MCV 86.6, MCH 28.3, MCHC 32.7, RDW 23.3 H, Plt Count 189, MPV 10.3, Neut % (Auto) 60.5, Lymph % (Auto) 25.0, [place] % (Auto) 9.1, Eos % (Auto) 2.7, Baso % (Auto) 2.3 H, Neut # (Auto) 4.3, Lymph # (Auto) 1.8, [place] # (Auto) 0.6, Eos # (Auto) 0.2, Baso # (Auto) 0.2, ESR 19, NT-Pro-B Natriuret Pep 8640 H, TSH 30.00 H, Free T4 1.34, Plasma/Serum Alcohol 234 H 09/09/24 04:28: VBG pH 7.31, VBG pCO2 48.0, VBG pO2 45.6 H, VBG HCO3 23.4, VBG Total CO2 24.9, VBG O2 Saturation 73.1 H, VBG Base Excess -2.9 L, VBG Lactic Acid 3.8 H 09/09/24 04:30: Stool Occult Blood Negative 09/09/24 05:20: Urine Color Yellow, Urine Appearance Clear, Urine pH 6.0, Ur Specific Ar[place] 1.010, Urine Protein 1+ A, Urine Glucose (UA) Negative, Urine Ketones Negative, Urine Blood 2+ A, Urine Nitrate Negative, Urine Bilirubin 1+ A , Urine Urobilinogen 1.0, Ur Leukocyte Esterase Negative, Urine RBC 3-5, Urine WBC 3-5, Ur Squamous Epith Cells 3-5, Urine Bacteria Trace, Urine Opiates Screen Negative, Urine Methadone Screen Negative, Ur Barbituates Screen Negative, Ur Phencyclidine Scrn Negative, Ur Amphetamines Screen Negative, U Benzodiazepines Scrn Positive H, Urine Cocaine Screen Negative, U Marijuana (THC) Screen Negative I & O for Last 24 hours: Intake & Output 09/06/24 09/07/24 09/08/24 09/09/24 23:59 23:59 23:59 23:59 Weight 108.862 kg *Routine HEENT Exam Head: Present normocephalic and atraumatic Eye: Present EOMI and PERRL ENT: Present mucous membranes moist and oropharynx clear *Routine Neck Exam Neck: Present supple and full ROM *Routine Respiratory Exam Respiratory: Present wheezes, crackles, normal respiratory effort, able to speak in complete sentences and symmetric chest movement; Absent accessory muscle use or respiratory distress Comments: Wheezes/crackles noted to right lobe *Routine Cardiovascular Exam Cardiovascular: Present RRR, Normal S1 and Normal S2 *Routine Abdominal Exam Abdominal: Present soft, normoactive bowel sounds and distended; Absent tenderness Comments: Diffuse edema noted to abdomen *Routine Rectal Exam Rectal:: deferred *Routine Genitalia Exam Genitalia:: deferred *Routine Extremities Exam Extremities: Present edema (Pitting edema noted to bilateral lower extremities), full ROM, pulses intact and normal capillary refill *Routine Skin Exam Skin: Present intact, dry and warm *Routine Neurological Exam Neurological: Present alert, oriented X3 and CN II-XII intact Assessment and Plan *Assessment and plan (1) Acute on chronic heart failure: Status: Acute Category: Medical Code(s): I50.9 - Heart failure, unspecified Plan: Echo 03/19/2024: The left ventricle is normal in size. There is increased LV wall thickness. There is normal LV systolic function. The septum is asynchronous. No regional wall motion abnormalities are noted. LVEF is 50- 55%.The right ventricle is severely dilated. There is severe reduction in RV systolic function. Chest x-ray per my review negative for acute findings BNP on admission 8640 Troponin 0.02 on admission Patient is prescribed Bumex 1 mg daily Start Bumex 1 mg IV twice daily Started spironolactone 25 mg daily per last med rec Monitor daily weights Strict I's and O's Fluid restriction 1200 mL daily (2) Atrial fibrillation with RVR: Status: Acute Category: Medical Code(s): I48.91 - Unspecified atrial fibrillation Plan: EKG reviewed A-fib with RVR, HR 151 Patient receives Cardizem 20 mg IV x 2 in the ER, heart rate on admission 126 Nursing staff verifying home medications with patient's pharmacy because he is unaware of what he takes Started diltiazem 180 mg p.o. daily, metoprolol 100 mg daily per last med rec Monitor telemetry (3) Hypoxic respiratory failure: Status: Acute Category: Medical Code(s): J96.91 - Respiratory failure, unspecified with hypoxia Plan: Continue supplemental oxygen to maintain SpO2 88 to 92% in the setting of COPD and wean as tolerated Xopenex 0.63 mg 3 times daily Vital signs every 4 hours (4) Bloody diarrhea: Status: Acute Category: Medical Code(s): R19.7 - Diarrhea, unspecified Plan: Diarrhea panel pending Monitor H&H every 4 hours Monitor vitals every 4 hours (5) Enteritis: Status: Acute Category: Medical Code(s): K52.9 - Noninfective gastroenteritis and colitis, unspecified Plan: CT abdomen and pelvis per my review negative for active hemorrhage into the bowel. Findings suggest enteritis. Blood cultures pending, follow results and adjust antibiotics if indicated Zosyn 3.375 g every 6 hours (6) Anemia: Status: Acute Category: Medical Code(s): D64.9 - Anemia, unspecified Plan: H&H every 4 hours Hemoglobin 9.7 on admission. Baseline ranges from 9.5-10.2 Consider GI/surgical consult if hemoglobin trends down (7) Noncompliance with medication regimen: Status: Acute Category: Medical Code(s): Z91.148 - Patient's other noncompliance with medication regimen for other reason Plan: Strongly encourage medication compliance due to comorbidities (8) Alcohol abuse: Status: Acute Category: Social Hx Code(s): F10.10 - Alcohol abuse, uncomplicated Plan: EtOH 234 Patient reports he has cut down from 1/5 of alcohol to a pint of Bry Beam Monitor for signs and symptoms of alcohol withdrawal Librium 25 mg 3 times daily and Ativan 1 mg every 4 hours as needed for alcohol withdrawal Seizure precautions (9) Tobacco use: Status: Acute Category: Social Hx Code(s): Z72.0 - Tobacco use Plan: Pack-a-day smoker Order nicotine gum Patient reports allergy to nicotine patch adhesive (10) COPD (chronic obstructive pulmonary disease): Status: Chronic Qualifiers: COPD type: unspecified COPD Qualified Code(s): J44.9 - Chronic obstructive pulmonary disease, unspecified Category: Medical Code(s): J44.9 - Chronic obstructive pulmonary disease, unspecified Plan: Continue supplemental oxygen to maintain SpO2 88 to 92% in the setting of COPD and wean as tolerated Xopenex 0.63 mg 3 times daily (11) Hypothyroidism: Status: Acute Category: Medical Code(s): E03.9 - Hypothyroidism, unspecified Plan: Restart levothyroxine when dosage verified by patient's pharmacy Plan Spoke with Dr. Zachery Nation, ER provider for admission due to A-fib with RVR, bloody diarrhea, enteritis, elevated BNP, alcohol intoxication, supplemental oxygen required and for these reasons I decided to admit patient.
--- NOTE | 2024-09-09 06:38 | PC.NURSE ---
Pt unaware of what medication he is taking at home. Pt stated he does not take his medications everyday and unaware of which ones he actually does take.
[2024-09-09 07:04] LABS: Reflex Lactic Add Lactic Reflex
[2024-09-09 07:34] LABS: Hematocrit 30.1 % (42.0-52.0); Hemoglobin 9.5 g/dL (14.1-18.0); Immature Granulocytes % 0.5 %; Mean Corpuscular HGB Conc 31.6 g/dL (31.8-35.4); Mean Corpuscular Hemoglobin 27.8 pg (27.0-31.2); Mean Corpuscular Volume 88.0 fl (80-94); Nucleated Red Blood Cells % 0.9 %; Platelet Count 154 K/mm3 (142-424); Red Blood Count 3.42 M/mm3 (4.60-6.20); Red Cell Distribution Width-SD 72.5 fL; White Blood Count 6.4 K/mm3 (4.8-10.8)
[2024-09-09 08:01] LABS: Lactic Acid Follow Up (RFLX 1) 2.6 mmol/L (0.7-2.1)
[2024-09-09 08:05] LABS: Alanine Aminotransferase 16 U/L (12-78); Albumin Level 3.1 g/dl (3.5-5.0); Albumin/Globulin Ratio 0.9 (1.1-1.8); Alkaline Phosphatase 344 U/L (38-126); Anion Gap 17.3 mEq/L (5-15); Aspartate Amino Transferase 51 U/L (17-59); Bilirubin,Total 1.6 mg/dl (0.2-1.3); Blood Urea Nitrogen 9 mg/dl (9-20); Calcium 7.7 mg/dl (8.4-10.2); Carbon Dioxide 24 mmol/L (22.0-30.0); Chloride 99 mmol/L (98-107); Creatinine Clearance Estimated 126 mL/min (50-200); Creatinine,Serum 1.10 mg/dl (0.66-1.25); Estimated Glomerular Filt Rate 69 ml/min (>60); GFR (African American) 83 ML/MIN (>60); Globulin 3.5 g/dL (1.3-3.2); Glucose 88 mg/dl (74-100); Magnesium 1.1 mg/dl (1.6-2.3); Potassium 3.3 mmoL/L (3.5-5.1); Sodium 137 mmol/L (136-145); Total Protein,Serum 6.6 g/dl (6.3-8.2)
--- NOTE | 2024-09-09 08:09 | HMH.PTEV ---
Physical Therapy Evaluation Rehab PT IP Evaluation Start: 09/09/24 06:53 Freq: .once Status: Active Protocol: Document 09/09/24 08:01 FREDI (Rec: 09/09/24 08:09 FREDI [id number]) Subjective/History History History Per H&P: Mr. Richardson is a 59-year-old male presents to ER with complaints of bloody diarrhea. Patient has a past medical history of congestive HFrEF, atrial fibrillation, hypertension, pulmonary hypertension, COPD, cirrhosis, alcohol abuse, and nicotine dependence. Patient reports for the past 4 days he has been having loose stools 4-5 times daily. He states he was using a towel this evening to clean himself and noticed there was blood on the towel after the dog started to lick it. He states that he had been using the same towel all day and cannot quantify how much blood was on the towel. He reports the blood was bright red. He reports his belly and legs are sore from increased swelling. Patient is noncompliant with home medications. He reports chronic shortness of breath unchanged from baseline. He also reports lightheadedness and chills. Also reports chronic cough . He states he has cut back from 1/5 of alcohol to a pint of Bry Jackson which he consumed this evening. He also reports he cut down from 2 packs cigarettes to 1 pack a day. Patient denies fever congestion, runny nose, chest pain, nausea, vomiting, constipation, headache, dizziness, or syncope. Subjective Subjective Alcohol brought me here PLOF: Pt reports he is IND with mobility using no AD. HOME: Lives alone in a single-story home with 0 MALLORY. Pt has a ramped entrance. Available assistance: None reported. [facility] How much help from another person do you currently need... Turning from your A lot back to your side while in a flat bed without using bedrails? Moving from lying on A lot back to sitting on the side of a flat bed without using bedrails? Moving to and from a A lot bed to a chair ( including a wheelchair)? Standing up from a A lot chair using your arms? (e.g., wheelchair, bedside chair) Walking in hospital Total room? Climbing 3-5 steps Total with a railing? Mobility Score 10 Mobility Level [facility] Mobility 4 Move to chair/commode Mobility Calculator Rehab PT IP Eval Objective Appearance Patient Behavior Appropriate,Cooperative Patient Orientation Person,Situation Difficulty following none instructions Speech Pattern Clear Ambulation Patient Able to No Ambulate Balance Ability to Arise Unable Transfers Bed Transfer Ability Maximum x 1 (75% assist) Rehab PT IP prob,goals,plan Problems Date of Evaluation: 09/09/24 PT IP Problems Bed Mobility,Transfers,Gait,Balance,Self care,Safety Rehab Potential Rehab Potential Good Plan PT Intervention Plan Bed Mobility,Transfers,Gait,Balance,Self care,Safety, Therapeutic Exercise Other Intervention 1-2 times Plan PT Plan Frequency Daily Duration LOS Discharge Plan PT Discharge Plan Initial physical therapy evaluation performed. Eval limited by pt's willingness to participate in mobility assessment and lethargic state. Pt only agreeable to demo rolling bed mobility. Pt required Max A to perform . Patient presents below baseline at this time in functional mobility, transfers, and strength. Pt not safe to return home at this time d/t current level of functional mobility. PT recommending short-term rehabilitation stay upon d/c from [facility]. Pt would benefit from skilled PT while at [facility] to prevent further functional decline and maximize safety with mobility. Eval Complexity Eval Charge Codes 60451 - Moderate Complexity PHYSICIAN CERTIFICATION: I certify the specified therapy services for Alonso Nixonen Richardson are required, authorized, and reviewed every 30 days.
--- NOTE | 2024-09-09 08:12 | HMH.PHAINT1 ---
Pharmacy Intervention Comments: HOME MEDICATION LIST VERIFIED USING LIST FROM LAST DISCHARGE FROM THIS FACILITY (<1 MONTH AGO)
[2024-09-09] MEDS: guaiFENesin 600 MG TAB.ER.12H 1200 MG PO ×2 (08:36→20:24)
[2024-09-09] MEDS: dilTIAZem HCL 180MG CAP.ER.24H 180 MG PO (08:36)
[2024-09-09] MEDS: THIAMINE 100MG TABLET 100 MG PO (08:36)
[2024-09-09] MEDS: PIPERCILLIN/TAZO 3.375 GM in 0.9 % SODIUM CHLORIDE 50 ML IV ×3 (08:36→20:24)
[2024-09-09] MEDS: METOPROLOL SUCCINATE XL 100MG TABLET 100 MG PO (08:36)
[2024-09-09] MEDS: FOLIC ACID 1MG TABLET 1 MG PO (08:36)
[2024-09-09] MEDS: BUMETANIDE 1MG/4ML VIAL 1 MG IV (08:37)
[2024-09-09] MEDS: SPIRONOLACTONE 25MG TABLET 25 MG PO (08:37)
[2024-09-09 08:42] LABS: Troponin I 0.02 ng/ml (0.00-0.034)
[2024-09-09 09:31] LABS: Reflex Lactic (2 hrs) Add Lactic Reflex
--- NOTE | 2024-09-09 10:02 | HMH.OTEV ---
OT Inpatient Evaluation Rehab OT IP Evaluation Start: 09/09/24 08:52 Freq: ONCE Status: Active Protocol: Document 09/09/24 09:55 BONNIE (Rec: 09/09/24 10:02 [facility] [id number][facility] Rehab OT IP Assessment Subjective History Pt oriented x 2 on arrival. Max verbal cues provided in order to improve arousal for completion of evaluation. HR continued to fluctuate between 130-150 during evaluation. Therapist decided to hold on sitting up to eob due to continued tachy HR. Pt admited on 09/09/24 due to blood stools, CHF, and A-fib Per H&P: Mr. Richardson is a 59-year-old male presents to ER with complaints of bloody diarrhea. Patient has a past medical history of congestive HFrEF, atrial fibrillation, hypertension, pulmonary hypertension, COPD, cirrhosis, alcohol abuse, and nicotine dependence. Patient reports for the past 4 days he has been having loose stools 4-5 times daily. He states he was using a towel this evening to clean himself and noticed there was blood on the towel after the dog started to lick it. He states that he had been using the same towel all day and cannot quantify how much blood was on the towel. He reports the blood was bright red. He reports his belly and legs are sore from increased swelling. Patient is noncompliant with home medications. He reports chronic shortness of breath unchanged from baseline. He also reports lightheadedness and chills. Also reports chronic cough . He states he has cut back from 1/5 of alcohol to a pint of Bry Jackson which he consumed this evening. He also reports he cut down from 2 packs cigarettes to 1 pack a day. Patient denies fever congestion, runny nose, chest pain, nausea, vomiting, constipation, headache, dizziness, or syncope. Subjective Alcohol brought me here PLOF: Pt reports he is IND with functional transfers using no AD. HOME: Lives alone in a single-story home with 0 MALLORY. Pt has a ramped entrance. Available assistance: None reported. Pt claims he is normally independent with ADLs and IADLs. Objective Patient Orientation Person,Birthday Right Upper Min Limitation <25% Extremity Gross ROM Left Upper Extremity Min Limitation <25% Gross ROM Shoulder ROM Muscle Weakness Limitations Elbow ROM Muscle Weakness Limitations Wrist Limitations of Muscle Weakness Range of Motion Bed Mobility bed mobility-scooting,bed mobility - rolling Assist Level Maximum x 1 (75% assist) Rehab OT IP prob,goals,plan Problems Date of Evaluation: 09/09/24 OT IP Problems Bed Mobility,Transfers,Balance,Self care,Safety Rehab Potential Rehab Potential Good Equipment Needs Assistive Devices Rolling / Wheeled Walker Plan OT intervention Plan Bed Mobility,Transfers,Balance,Self care,Safety, Therapeutic Exercise OT Plan Frequency Daily Duration LOS Discharge Goals Bed Mobility Ability Assistance x1 Sit to Stand Chair Moderate x 1 (50% assist) Transfer Ability Chair Transfer Moderate x 1 (50% assist) Ability Chair Transfer Stand Step Pivot Technique Chair Transfer Rolling Walker Assistive Devices Lower Body Dressing Moderate Assistance Ability Upper Body Dressing Minimal Assistance Ability Performing Toilet Moderate Assistance Hygiene Ability Overall Commode/ Moderate Assistance Toilet Transfer Ability Commode/Toilet Stand Step Pivot Transfer Technique Discharge Plan OT Discharge Plan Initial OT evaluation performed. Eval limited by pt's willingness to participate in functional assessment and lethargic state. Pt only agreeable to demo rolling bed mobility. Pt required Max A to perform. Patient presents below baseline at this time in functional transfers, ADL independence, and strength. Pt not safe to return home at this time d/t current level of functional ability. OT recommending short-term rehabilitation stay upon d/c from [facility]. Pt would benefit from skilled OT while at [facility] to prevent further functional decline and maximize safety. Eval Complexity Eval Charge Codes 72818 - Moderate Complexity PHYSICIAN CERTIFICATION: I certify the specified therapy services for Alonso Mariel Greenwooduire are required, authorized, and reviewed every 30 days.
--- OUTSIDE RECORDS SUMMARY | 2024-09-09 10:04 | XMS_ITS | Encounter Summary ---
Author Organization [employer] ([place], [place], [place], [place]) Address [address] [place] [address] Care Team Providers Care Area Captain Name Role Phone Unavailable Primary Care Provider Unavailabl e Encounter Details Date Type Department Care Team (Late st Contact Info) Description 04/15/2019 Transcribed Document [facility] [place] [facility] [place] [address] ProviderSharon MD [address] [place] [address] Social History Tobacco Use Types Packs/Day Years Used Date Smoking Tobacco: Never Assessed Sex and Gender Information Value Date Recorded Sex Assigned at Not on file Legal Sex Male 6:54 PM CDT Gender Identity Not on file Sexual Orientation Not on file documented as of this encounter Miscellaneous Notes * Cerner Conversion Note - Sharon ProviderMD - 04/15/2019 12:32 PM MAP EDITOR Patient: RAUDEL ZEPEDA Age: 54 Years Sex: [...] states he had it done here at [facility], however there are no available records of this procedure here. He reports having intermittent SVT for the last 2 months, for which he went to his primary care for 1 week ago. His primary care referred him back to Dr. Mathews who is his primary packaging supervisor. When he arrived at Dr. Mathews's [...] A call was then placed to our packaging supervisor oracle webcenter consultant who recommended amiodarone infusion and transfer [...] - Within 1 month ERASMO MELENDEZ (REF), -[facility] - Within 2 to 3 days Discharge [...] 2/8) - TRACIT, DAMASO ARCEO MD-ANS MAK SELAS MD-ANS Current Diet Order Diet, Adult - Ordered -- Start: 04/13/19 13:19:00 EST, Food Consistency: Regular texture, 60 gm carbs:[id number] hilary, Isolation: Standard Precautions Follow Up Labs/Studies [...] 04/09/2019 19:55 EST Electronically signed by Phil [facility] Conversion Electric Container Tester Cerner at 06/19/2022 4:29 PM CDT documented in this encounter Plan of Treatment Not on file documented as of this encounter Visit Diagnoses Not on filedocumented in this encounter
--- OUTSIDE RECORDS SUMMARY | 2024-09-09 10:04 | XMS_ITS | Encounter Summary ---
Author Organization [employer] ([place], [place], [place], [place]) Address [address] [place] [address] Care Team Providers Care Us Administrative Law Judge Name Role Phone Unavailable Primary Care Provider Lilia tsang Encounter Details Date Type Department Care Team (Late st Contact Info) Description 04/14/[address] [facility] [place] [facility] [place] [address] ProviderSharon MD [address] [place] [address] Social History Tobacco Use Types Packs/Day Years Used Date Smoking Tobacco: Never Assessed Sex and Gender Information Value Date Recorded Sex Assigned at Not on file Legal Sex Male 6:54 PM CDT Gender Identity Not on file Sexual Orientation Not on file documented as of this encounter Miscellaneous Notes * Cerner Conversion Note - Sharon ProviderMD - 04/14/2019 10:00 AM FLOORLEADER Patient: RAUDEL ZEPEDA Age: 54 years Sex: [...] History of obstructive sleep apnea / IMO [id number] / Confirmed SVT - Supraventricular tachycardia / SNOMED CT [id number] / Confirmed, Active Problems (7) Alcohol abuse [...] dc am gaurav pt, rn time 34misn documented in this encounter Plan of Treatment Not on file documented as of this encounter Visit Diagnoses Not on filedocumented in this encounter
--- OUTSIDE RECORDS SUMMARY | 2024-09-09 10:04 | XMS_ITS | Encounter Summary ---
Author Organization [employer] ([place], [place], [place], [place]) Address [address] [place] [address] Care Team Providers Care Instruments Sales Representative Name Role Phone Unavailable Primary Care Provider Unavailabl e Encounter Details Date Type Department Care Team (Late st Contact Info) Description 04/14/2019 Transcribed Document [facility] [place] [facility] [place] [address] ProviderSharon MD [address] [place] [address] Social History Tobacco Use Types Packs/Day Years Used Date Smoking Tobacco: Never Assessed Sex and Gender Information Value Date Recorded Sex Assigned at Not on file Legal Sex Male 6:54 PM CDT Gender Identity Not on file Sexual Orientation Not on file documented as of this encounter Miscellaneous Notes * Cerner Conversion Note - Sharon ProviderMD - 04/14/2019 10:45 AM ENGINE OILER On Going Discharge Planning Entered On: 04/14/2019 10:47 EST Performed On: 04/14/2019 10:45 EST by JUS MATAMOROS Rn-Electrician MasterChildcare Provider Progress Note Discharge Arrangements : Patient Post-Acute [...] Meeting Medical Necessity : Yes JUS MATAMOROS Rn-Electrician Master - 04/14/2019 10:45 EST Narrative Progress Note Narrative Progress Note : Day 5 - Pt on transfer to [facility] s/p ablation on 04/13/19; NSR; heparin/dexa gtts off; 02=2L; pt will need OLOP when medically stable for d/c; transport home with S.O.Gracie Chowdary. Historical Progress Note : Day 4 - Heparin gtt; Dexa gtt; pt off the unit for ablation; anticipate d/c home with S.O. when stable; OLOP consult on d/c. JUS MATAMOROS Rn-Electrician Master - 04/13/19 14:01:56 Anticipate pt will d/c home with S.O. when stable; OLOP consult when ready for d/c. JUS MATAMOROS Rn-Electrician Master - 04/12/19 12:03:20 JUS MATAMOROS Rn-Electrician Master - 04/14/2019 10:45 EST Electronically signed by Radha Villarreal Conversion Assistant Professor Of History Dreadner at 06/19/2022 4:36 PM CDT documented in this encounter Plan of Treatment Not on file documented as of this encounter Visit Diagnoses Not on filedocumented in this encounter
--- OUTSIDE RECORDS SUMMARY | 2024-09-09 10:04 | XMS_ITS | Encounter Summary ---
Author Organization [employer] ([place], [place], [place], [place]) Address [address] [place] [address] Care Team Providers Care Lead Programmer Analyst Name Role Phone Unavailable Primary Care Provider Unavailabl e Encounter Details Date Type Department Care Team (Late st Contact Info) Description 04/15/2019 Transcribed Document [facility] [place] [facility] [place] [address] ProviderSharon MD [address] [place] [address] Social History Tobacco Use Types Packs/Day Years Used Date Smoking Tobacco: Never Assessed Sex and Gender Information Value Date Recorded Sex Assigned at Not on file Legal Sex Male 6:54 PM CDT Gender Identity Not on file Sexual Orientation Not on file documented as of this encounter Miscellaneous Notes * Cerner Conversion Note - Sharon Phillips MD - 04/15/2019 2:47 PM SENIOR BUSINESS OBJECTS DEVELOPER [facility] [place] [address] RAUDEL ZEPEDA :1965 Visit Time:04/09/2019 Your [...] When 05/19/2019 09:45 AM EDT Where: [address] [facility] [address] [place] [address]- Business (1) Follow Up with BEN FINLEY When 05/17/2019 11:30 AM EDT Where: [address] [place] [address] [place] [address]- Business (1) Follow Up with ERASMO SCHMID (MD [facility] When Within 1 week Comments Please call in AM and make a 1 week hospital follow-up appointment. Where: [place] [address]- Medications What How Much When Instructions Next [...] 08/24/2003 Document Revised: 09/06/2016 Document Reviewed: 07/23/2016 [employer] Patient Education ?? 2019 [employer]. How to Take Your Blood Pressure [...] monitor. You can buy one at a [email or web address] or online. When choosing one: ??? Choose [...] 01/30/2009 Document Revised: 01/15/2017 Document Reviewed: 07/26/2016 [employer] Patient Education ?? 2019 [employer]. Heart-Healthy Eating Plan Many factors influence your [...] foods can I eat? Grains Breads, including Khmer, white, nanci, wheat, raisin, rye, oatmeal, and Paraguayan. Tortillas that are neither fried nor made with lard or trans fat. Low-fat rolls, including hotdog and hamburger buns and Egyptian muffins. Biscuits. Muffins. Waffles. Pancakes. Light popcorn. [...] cooking, baking, salads, and as spreads. Other Richmond powder. Coffee and tea. All seasonings and [...] cheese. Whole milk cheeses, including blue (john), [place] Dayron, Brie, Omar, Cymraes, Havarti, Mozambican, cheddar, Camembert, and Thorndike. Whole or 2% milk that is liquid, [...] that has suet, meat fat, or shortening. Richmond butter, hydrogenated oils, palm oil, coconut oil, [...] 11/26/2008 Document Revised: 09/06/2016 Document Reviewed: 08/11/2014 [employer] Patient Education ?? 2019 [employer]. Electrical Cardioversion Electrical cardioversion is the delivery [...] including vitamins, herbs, eye drops, creams, and ffer-nop-tmgohje medicines. ??? Any problems you or family [...] 02/07/2003 Document Revised: 10/16/2016 Document Reviewed: 08/23/2016 [employer] Interactive Patient Education ?? 2017 [employer] Inc. Supraventricular Tachycardia, Adult Supraventricular tachycardia (SVT) [...] as told by your doctor. ??? Take amnb-syw-uipdwkl and prescription medicines only as told by [...] 02/17/2006 Document Revised: 10/24/2016 Document Reviewed: 10/24/2016 [employer] Interactive Patient Education ?? 2019 [employer]. losartan (jn Morillo What is the most [...] may report side effects to FDA at 2-917-WTL-8725. What other drugs will affect losartan? Tell your doctor about all your other medicines, especially: ?? a diuretic or 'water pill'; ?? other blood pressure medications; ?? lithium; or ?? NSAIDs (nonsteroidal anti-inflammatory drugs)--aspirin, ibuprofen (Advil, Motrin), naproxen (Aleve), celecoxib, diclofenac, indomethacin, meloxicam, and others. This list is not complete. Other drugs may affect losartan, including prescription and axvp-xzx-zjvufbd medicines, vitamins, and herbal products. Not all [...] to ensure that the information provided by [employer]. ('[employer]') is accurate, up-to-date, and complete, but no guarantee is made to that effect. Drug information contained herein may be time sensitive. [employer] information has been compiled for use by healthcare practitioners and consumers in the [place] and therefore [employer] does not warrant that uses outside of the [place] are appropriate, unless specifically indicated otherwise. [employer]'s drug information does not endorse drugs, diagnose patients or recommend therapy. [facility] drug information is an informational resource designed [...] effective or appropriate for any given patient. [facility] does not assume any responsibility for any aspect of healthcare administered with the aid of information [facility] provides. The information contained herein is not intended to cover all possible uses, directions, precautions, warnings, drug interactions, allergic reactions, or adverse effects. If you have questions about the drugs you are taking, check with your doctor, nurse or pharmacist. Copyright 7590-9087 [employer]. Version: 16.. Revision Date: 06/10/2018. oxazepam (ox A ze dipika) Serax What is the most important information I should know about oxazepam? Never use oxazepam in larger amounts, or for longer than prescribed. What is oxazepam? Oxazepam is a benzodiazepine (hwq-llg-qie-AZE-eh-peen). Oxazepam affects chemicals in the brain that [...] may report side effects to FDA at 1-434-RKJ-9933. What other drugs will affect oxazepam? Taking oxazepam with other drugs that make you sleepy or slow your breathing can cause dangerous side effects or . Ask your doctor before taking a sleeping pill, narcotic pain medicine, prescription cough medicine, a muscle relaxer, or medicine for anxiety, depression, or seizures. Other drugs may interact with oxazepam, including prescription and gtlm-ktg-fvxovka medicines, vitamins, and herbal products. Tell each [...] to ensure that the information provided by [employer]. ('[employer]') is accurate, up-to-date, and complete, but no guarantee is made to that effect. Drug information contained herein may be time sensitive. [employer] information has been compiled for use by healthcare practitioners and consumers in the [place] and therefore [employer] does not warrant that uses outside of the [place] are appropriate, unless specifically indicated otherwise. [employer] drug information does not endorse drugs, diagnose patients or recommend therapy. [employer] drug information is an informational resource designed [...] effective or appropriate for any given patient. [employer] does not assume any responsibility for any aspect of healthcare administered with the aid of information [employer] provides. The information contained herein is not intended to cover all possible uses, directions, precautions, warnings, drug interactions, allergic reactions, or adverse effects. If you have questions about the drugs you are taking, check with your doctor, nurse or pharmacist. Copyright 8050-2643 [employer]. Version: 7.03. Revision Date: 11/29/2015. nicotine (transdermal) [...] may report side effects to FDA at 6-464-NBM-8600. What other drugs will affect nicotine? Other drugs may affect nicotine transdermal, including prescription and nzwb-rwe-kxnecsm medicines, vitamins, and herbal products. Tell your [...] to ensure that the information provided by [employer]. ('[employer]') is accurate, up-to-date, and complete, but no guarantee is made to that effect. Drug information contained herein may be time sensitive. [employer] information has been compiled for use by healthcare practitioners and consumers in the [place] and therefore [employer] does not warrant that uses outside of the [place] are appropriate, unless specifically indicated otherwise. [employer] drug information does not endorse drugs, diagnose patients or recommend therapy. [employer] drug information is an informational resource designed [...] effective or appropriate for any given patient. [employer] does not assume any responsibility for any aspect of healthcare administered with the aid of information [employer] provides. The information contained herein is not intended to cover all possible uses, directions, precautions, warnings, drug interactions, allergic reactions, or adverse effects. If you have questions about the drugs you are taking, check with your doctor, nurse or pharmacist. Copyright 8354-5069 [employer]. Version: 3.01. Revision Date: 10/08/2018. acetaminophen and [...] may report side effects to FDA at 9-244-BEQ-2376. What other drugs will affect acetaminophen and [...] affect acetaminophen and oxycodone, including prescription and ixau-xwn-bvdogze medicines, vitamins, and herbal products. Not all [...]
--- OUTSIDE RECORDS SUMMARY | 2024-09-09 10:04 | XMS_ITS | Encounter Summary ---
Author Organization [employer] ([place], [place], [place], [place]) Address [address] [place] [address] Care Team Providers Care Pedal Assembler Name Role Phone Unavailable Primary Care Provider Lilia tsang Encounter Details Date Type Department Care Team (Late st Contact Info) Description 04/15/2019 Transcribed Document [facility] [place] [facility] [place] [address] ProviderSharon MD [facility] [place] [address] Social History Tobacco Use Types Packs/Day Years Used Date Smoking Tobacco: Never Assessed Sex and Gender Information Value Date Recorded Sex Assigned at Not on file Legal Sex Male 6:54 PM CDT Gender Identity Not on file Sexual Orientation Not on file documented as of this encounter Miscellaneous Notes * Cerner Conversion Note - Historical ProviderMD - 04/15/2019 10:16 AM PIT BOSS Attempt to Treat, OT Entered On: 04/15/2019 [...]
--- OUTSIDE RECORDS SUMMARY | 2024-09-09 10:04 | XMS_ITS | Encounter Summary ---
Author Organization [employer] ([place], [place], [place], [place]) Address [address] [place] [address] Care Team Providers Care Merchandising Coordinator Name Role Phone Unavailable Primary Care Provider Unavailabl e Encounter Details Date Type Department Care Team (Late st Contact Info) Description 04/15/2019 Transcribed Document [facility] [place] [facility] [place] [address] ProviderSharon MD [address] [place] [address] Social History Tobacco Use Types Packs/Day Years Used Date Smoking Tobacco: Never Assessed Sex and Gender Information Value Date Recorded Sex Assigned at Not on file Legal Sex Male 6:54 PM CDT Gender Identity Not on file Sexual Orientation Not on file documented as of this encounter Miscellaneous Notes * Cerner Conversion Note - Sharon ProviderMD - 04/15/2019 11:47 AM RESOURCE PARAPROFESSIONAL On Going Discharge Planning Entered On: 04/15/2019 11:52 EST Performed On: 04/15/2019 11:47 EST by YULI PATEL, RN-Oiler And Greaser ED Care Management Progress Note Discharge Arrangements [...] with D/C Plan? : Yes YULI PATEL, RN-Oiler And Greaser ED - 04/15/2019 11:47 EST Narrative Progress Note Narrative Progress Note : ANN talked with Dr. Nagel and she has ordered a OLOP consult and is planning to discharge pt following this consult. CM called referral to OLOP p [phone] f [phone]. CM faxed facesheet to OLOP intake earlier [...] transport home with S.O.Gracie Chowdary. JUS MATAMOROS Rn-Oiler And Greaser - 04/14/19 10:47:49 Day 4 - Heparin gtt; Dexa gtt; pt off the unit for ablation; anticipate d/c home with S.O. when stable; OLOP consult on d/c. JUS MATAMOROS Rn-Oiler And Greaser - 04/13/19 14:01:56 Anticipate pt will d/c home with S.O. when stable; OLOP consult when ready for d/c. JUS MATAMOROS Rn-Oiler And Greaser - 04/12/19 12:03:20 YULI PATEL RN-Oiler And Greaser ED - 04/15/2019 11:47 EST documented in this encounter Plan of Treatment Not on file documented as of this encounter Visit Diagnoses Not on filedocumented in this encounter
--- OUTSIDE RECORDS SUMMARY | 2024-09-09 10:04 | XMS_ITS | Clinical Summary ---
Author Organization Healthcare Address [address] [place] [address] Care Team Providers Care Aerodynamicist Name Role Phone Casey Felix MD Primary Care Provider [phone] Dotty Askew MD Unavailable [phone] Allergies Active Allergy Reactions Criticality Noted Date [...] by mouth every 6 (six) hours. 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 [place] [address] Jakub Malave MD 07/14/2024 Telephone [facility] [address] [facility], [address] [place] [id number] Isabella Jordan RN from Last 3 Months [...] Never 05/13/2024 How often do you attend hindu or methodist serv ices? Never 05/13/2024 Do you belong to any clubs o r organizations such as hindu groups, unions, fraternal or athletic groups, or [...] and heating? Patient unable to answer 05/13/2024 [facility] - Occupational [...] place to sleep or slept in a senior living (including now)? No 12/09/2023 Housing Stability Vital Sign Answer Myron e Recorded In the last 12 months, was t here a time when you were not able to pay the mortgage or rent on time? No 05/13/2024 Number of Times Moved in the Last Year Not on fi le 05/13/2024 At any time in the past 12 m [facility], were you homeless or living in a senior living (including now)? No 05/13/2024 CAGE ASSESSMENT Answer [...] drink first t olivia in the morning (EYE-PHARMACY OPERATIONS SPECIALIST) to steady your nerves or to get [...] Description 10/07/2024 3:00 PM EDT Office Visit [facility] [address] [place] [address] Jakub Malave MD [address] [place] [address] Health Maintenance Due Date Last Done Comments [...] 2010 UKY-Zoster Vaccines (1 of 2) 2015 KWX-OQWCQ-10 Vaccine (2 - Margarita risk series) 08/19/2020 [...] this topic Medical Devices Implanted Type Area Print Machine Operator Device Identifier Shelf Expiration Date Model / Serial / Lot Nail 1.5 Intertan 11.5mm X 44cm 130d Left - S. - [id number] Implanted:Qty: 1 on 05/14/2024 by Jai Joyce MD at [facility] Left: Femur [employer]-[id number] 08/06/2032 [id number] / . / [id number] Lag/Comp Screw Kit 100/95 - S. - [id number] Implanted:Qty: 1 on 05/14/2024 by Jai Joyce MD at [facility] Left: Femur [employer]-[id number] 07/29/2033 [id number] / . / [id number] Screw Trigen 5.0mm For Metanail 52.5mm - S. - [id number] Implanted:Qty: 1 on 05/14/2024 by Jai Joyce MD at [facility] Left: Femur [employer]-[id number] 09/20/2033 [id number] / . / [id number] Screw Trigen 5.0mm Internal Capture 75mm - S. - [id number] Implanted:Qty: 1 on 05/14/2024 by Jai Joyce MD at [facility] Left: Femur [employer]-[id number] 08/09/2033 [id number] / . / [id number] Procedures Procedure Name Priority Date/Time Associated Diagnosis [...] MD on 12/09/2023 1:53 AM us Ivana Panye MD IMG CT PROCEDURES Final Result * ED HIV 1/2 Antibody/Antigen Screen w/Reflex to HIV 1/2 Differentiation (12/08/2023 10:35 PM EDT) [facility] HIV 1 & 2 Antibody/Antigen Screen [...] ORDERABLES Final Resul t [facility] [address] [place] [address] * Hepatitis C Antibody - ED (12/08/2023 10:35 PM EDT) Pathologist [facility] Hepatitis C Antibody Negative Negative 12/08/2023 11:28 PM EDT Trov LAB Blood Venous blood specimen / Unknown Venipuncture / Unknown 12/08/2023 10:35 PM EDT 12/08/2023 10:45 PM EDT us Ivana Payne MD LAB BLOOD ORDERABLES Final Resul t [facility] [address] [place] [address] from Last 3 Months or Most Recently Relevant to Health Maintenance [place] Advance Directives * Full Code (Latest Code Status on File) Date Activated Date Inactivated Comments 05/13/2024 3:57 AM 06/01/2024 6:26 PM * Full Code Date Activated Date Inactivated Comments 12/09/2023 3:00 AM 01/03/2024 1:37 PM Question Answer Comments Patient has decision-making capacity? Yes Care Teams Aerodynamicist Relationship Specialty Start Date End Date Casey Felix MD [address] [place] [address] PCP - General 09/05/20 Dotty Askew MD [address] [place] [address] Consulting Physician Pediatric Cardiology 09/05/20
--- OUTSIDE RECORDS SUMMARY | 2024-09-09 10:04 | XMS_ITS | Encounter Summary ---
Author Organization [employer] ([place], [place], [place], [place]) Address [address] [place] [address] Care Team Providers Care Lead Atg Developer Name Role Phone Unavailable Primary Care Provider Unavailabl e Encounter Details Date Type Department Care Team (Late st Contact Info) Description 04/15/2019 Transcribed Document [facility] [place] Family [place] [facility] [place] [address] ProviderSharon MD [address] [place] [address] Social History Tobacco Use Types Packs/Day Years Used Date Smoking Tobacco: Never Assessed Sex and Gender Information Value Date Recorded Sex Assigned at Not on file Legal Sex Male 6:54 PM CDT Gender Identity Not on file Sexual Orientation Not on file documented as of this encounter Miscellaneous Notes * Cerner Conversion Note - Sharon ProviderMD - 04/15/2019 4:10 PM ALLIGATOR SHEAR OPERATOR Discharge Summary, PT Entered On: 04/15/2019 16:10 [...] SCOTT BILLINGS PTA - 04/15/2019 16:10 EST Mcc Goals Mobility/Bed Mobility LTG PT Grid Goal [...] SCOTT BILLINGS PTA - 04/15/2019 16:10 EST documented in this encounter Plan of Treatment Not on file documented as of this encounter Visit Diagnoses Not on filedocumented in this encounter
--- OUTSIDE RECORDS SUMMARY | 2024-09-09 10:04 | XMS_ITS | Encounter Summary ---
Author Organization Healthcare Address [address] [place] [address] Care Team Providers Care Solar Fabrication Technician Name Role Phone Casey Felix MD Primary Care Provider [phone] Dotty Askew MD Unavailable [phone] Encounter Details Date Type Department Care Team (Late st Contact Info) Description 09/01/2024 Telephone [facility] [place] Maur[facility] [address] [facility] [place] [address] Jakub Malave MD [address] [place] [address] Social History Tobacco Use Types [...] Never 05/13/2024 How often do you attend lutheran or judaism serv ices? Never 05/13/2024 Do you belong to any clubs o r organizations such as lutheran groups, unions, fraternal or athletic groups, or [...] and heating? Patient unable to answer 05/13/2024 [facility]ational Stress Questionnaire [...] place to sleep or slept in a skilled nursing (including now)? No 12/09/2023 Housing Stability Vital Sign Answer Myron e Recorded In the last 12 months, was t here a time when you were not able to pay the mortgage or rent on time? No 05/13/2024 Number of Times Moved in the Last Year Not on fi le 05/13/2024 At any time in the past 12 m [facility], were you homeless or living in a skilled nursing (including now)? No 05/13/2024 CAGE ASSESSMENT Answer [...] drink first t olivia in the morning (EYE-ELECTRICAL ENGINEERING PROFESSOR) to steady your nerves or to get [...] Description 10/07/2024 3:00 PM EDT Office Visit [facility] [place] [facility] [address] [place] [address] Jakub Malave MD [address] [place] [phone] documented as of this encounter Visit Diagnoses Not on filedocumented in this encounter Additional Health Concerns Assessment Noted Time A fall risk assessment has been complete d for the patient 09/05/2020 11:56 AM EDT A Body Mass Index follow-up plan has been documented for the patient 06/01/2024 11:16 AM EDT documented as of this encounter Care Teams Solar Fabrication Technician Relationship Specialty Start Date End Date Casey Felix MD [address] [place] [address] PCP - General 09/05/20 Dotty Askew MD [address] [place] [address] Consulting Physician Pediatric Cardiology 09/05/20 documented as of this encounter
--- OUTSIDE RECORDS SUMMARY | 2024-09-09 10:05 | XMS_ITS | Encounter Summary ---
Author Organization [employer] ([place], [place], [place], [place]) Address [address] [place] [address] Care Team Providers Care Passenger Booking Clerk Name Role Phone Unavailable Primary Care Provider Unavailabl e Encounter Details Date Type Department Care Team (Late st Contact Info) Description 04/15/2019 Transcribed Document [facility] [place] Family Medicine [facility] [place] [address] ProviderSharon MD [address] [place] [address] Social History Tobacco Use Types Packs/Day Years Used Date Smoking Tobacco: Never Assessed Sex and Gender Information Value Date Recorded Sex Assigned at Not on file Legal Sex Male 6:54 PM CDT Gender Identity Not on file Sexual Orientation Not on file documented as of this encounter Miscellaneous Notes * Cerner Conversion Note - Sharon [place] MD - 04/15/2019 12:39 PM CLINICAL DOCUMENTATION MANAGER Kev Melendez MD [address] [place] [phone] Re: RAUDEL ZEPEDA Date of Visit: 04/09/2019 [...] contents is strictly prohibited. Sincerely, JANICE BUCHANAN [address] [facility] [address] [place] [id number] The following document(s) were included in the letter: April 15, 2019 12:32:38 EST - (04/15/2019) Discharge Note documented in this encounter Plan of Treatment Not on file documented as of this encounter Visit Diagnoses Not on filedocumented in this encounter
--- OUTSIDE RECORDS SUMMARY | 2024-09-09 10:05 | XMS_ITS | Clinical Summary ---
Author Organization [employer] ([place], [place], [place], [place]) Address [address] [place] [address] Care Team Providers Care Software Application Tester Name Role Phone Unavailable Primary Care Provider [...]
--- OUTSIDE RECORDS SUMMARY | 2024-09-09 10:05 | XMS_ITS | Encounter Summary ---
Author Organization [employer] ([place], [place], [place], [place]) Address [address] [place] [address] Care Team Providers Care Blending Coordinator Name Role Phone Unavailable Primary Care Provider Unavailabl e Encounter Details Date Type Department Care Team (Late st Contact Info) Description 04/10/2019 Transcribed Document [facility] Radiology [address] [place] [address] Jerrell Kamara MD [address] [place] [address] Social History Tobacco Use Types Packs/Day Years [...] influenza virus vaccine, inactivated: 0.5 mL, IntraMuscular, [id number] labetalol: 20 mg, IV Push, Q1H, PRN: [...] of motion, Normal strength. Integumentary: Warm, Dry, [place], Intact. Neurologic: Alert, Oriented. Psychiatric: Cooperative, [...]
--- OUTSIDE RECORDS SUMMARY | 2024-09-09 10:05 | XMS_ITS | Encounter Summary ---
Author Organization [employer] ([place], [place], [place]) Address [address] [place] [address] Care Team Providers Care Data Examination Clerk Name Role Phone Unavailable Primary Care Provider Unavailabl e Encounter Details Date Type Department Care Team (Late st Contact Info) Description 04/14/2019 Transcribed Document [facility] [place] Family Medicine [facility] [place] [address] ProviderSharon MD [address] [place] [address] Social History Tobacco Use Types Packs/Day Years Used Date Smoking Tobacco: Never Assessed Sex and Gender Information Value Date Recorded Sex Assigned at Not on file Legal Sex Male 6:54 PM CDT Gender Identity Not on file Sexual Orientation Not on file documented as of this encounter Miscellaneous Notes * Cerner Conversion Note - Sharon [place] MD - 04/14/2019 11:56 AM RADIOLOGIC TECHNOLOGY TEACHER Patient: RAUDEL ZEPEDA Age: 54 years [...] All Problems Alcohol abuse / SNOMED CT 84616650 / Confirmed Anxiety / SNOMED CT 08805447 / Confirmed History of obstructive sleep apnea / IMO 18990502 / Confirmed Hypertension / SNOMED CT 7170262232 / Confirmed Hypothyroid / SNOMED CT 93278118 / Confirmed Smoker / SNOMED CT 471259112 / Confirmed SVT - Supraventricular tachycardia / SNOMED CT 4654314083 / Confirmed, Active Problems (7) Alcohol abuse [...] of motion, Normal strength. Integumentary: Warm, Dry, [place], Intact. Neurologic: Alert, Oriented. Psychiatric: Cooperative, Appropriate [...] 55 yo male followed by Dr. Mathews [id number] 1 of at least one echo pending [...] with EPS/ablation this afternoon. 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
--- OUTSIDE RECORDS SUMMARY | 2024-09-09 10:05 | XMS_ITS | Encounter Summary ---
Author Organization [employer] ([place], [place], [place], [place]) Address [address] [place] [address] Care Team Providers Care Manuscript Editor Name Role Phone Unavailable Primary Care Provider Unavailabl e Encounter Details Date Type Department Care Team (Late st Contact Info) Description 04/15/2019 Transcribed Document [facility] Family Medicine [facility] [place] [address] ProviderSharon MD [facility] [place] [address] Social History Tobacco Use Types Packs/Day Years Used Date Smoking Tobacco: Never Assessed Sex and Gender Information Value Date Recorded Sex Assigned at Not on file Legal Sex Male 6:54 PM CDT Gender Identity Not on file Sexual Orientation Not on file documented as of this encounter Miscellaneous Notes * Cerner Conversion Note - Historical ProviderMD - 04/15/2019 5:00 AM GLUE MAKER Chart Check - Review Order Profile Entered On: 04/15/2019 6:16 EST Performed On: 04/15/2019 5:00 EST by YEIMY CASTRO RN Chart Check Powerplans Initiated/Discontinued as Appropriate : Yes All Active Orders Reviewed : Yes YEIMY CASTRO RN - 04/15/2019 6:16 EST documented in this encounter Plan of Treatment Not on file documented as of this encounter Visit Diagnoses Not on filedocumented in this encounter
--- OUTSIDE RECORDS SUMMARY | 2024-09-09 10:05 | XMS_ITS | Encounter Summary ---
Author Organization [employer] ([place], [place], [place]) Address [address] [place] [address] Care Team Providers Care Locker Room Supervisor Name Role Phone Unavailable Primary Care Provider Unavailabl e Encounter Details Date Type Department Care Team (Late st Contact Info) Description 04/10/2019 Transcribed Document [facility] [place] Family Medicine [facility] [place] [address] ProviderSharon MD [facility] [place] [address] Social History Tobacco Use Types Packs/Day Years Used Date Smoking Tobacco: Never Assessed Sex and Gender Information Value Date Recorded Sex Assigned at Not on file Legal Sex Male 6:54 PM CDT Gender Identity Not on file Sexual Orientation Not on file documented as of this encounter Miscellaneous Notes * Cerner Conversion Note - Historical ProviderMD - 04/10/2019 2:00 AM SPECIAL EDUCATION PROFESSIONAL Mechanical Technician Details Entered On: 04/10/2019 3:34 EST Performed [...]
--- OUTSIDE RECORDS SUMMARY | 2024-09-09 10:05 | XMS_ITS | Encounter Summary ---
Author Organization [employer] ([place], [place], [place], [place]) Address [address] [place] [address] Care Team Providers Care Harvest Worker Name Role Phone Unavailable Primary Care Provider Unavailabl e Encounter Details Date Type Department Care Team (Late st Contact Info) Description 04/13/2019 Transcribed Document [facility] Family Medicine [facility] [place] [address] ProviderSharon MD [address] [place] [address] Social History Tobacco Use Types Packs/Day Years Used Date Smoking Tobacco: Never Assessed Sex and Gender Information Value Date Recorded Sex Assigned at Not on file Legal Sex Male 6:54 PM CDT Gender Identity Not on file Sexual Orientation Not on file documented as of this encounter Miscellaneous Notes * Cerner Conversion Note - Sharon ProviderMD - 04/13/2019 1:59 PM STITCHDOWN TOE FORMER On Going Discharge Planning Entered On: 04/13/2019 14:01 EST Performed On: 04/13/2019 13:59 EST by JUS MATAMOROS Rn-Wood Fence ErectorNursing Specialist Progress Note Discharge Arrangements : Patient Post-Acute [...] Meeting Medical Necessity : Yes JUS MATAMOROS, Rn-Wood Fence Erector - 04/13/2019 13:59 EST Narrative Progress Note Narrative Progress Note : Day 4 - Heparin gtt; Dexa gtt; pt off the unit for ablation; anticipate d/c home with S.O. when stable; OLOP consult on d/c. Historical Progress Note : Anticipate pt will d/c home with S.O. when stable; OLOP consult when ready for d/c. JUS MATAMOROS Rn-Wood Fence Erector - 04/12/19 12:03:20 JUS MATAMOROS Rn-Wood Fence Erector - 04/13/2019 13:59 EST Electronically signed by [facility] Conversion Kick Press Setter Cerner at 06/19/2022 4:41 PM CDT documented in this encounter Plan of Treatment Not on file documented as of this encounter Visit Diagnoses Not on filedocumented in this encounter
--- OUTSIDE RECORDS SUMMARY | 2024-09-09 10:05 | XMS_ITS | Encounter Summary ---
Author Organization [employer] ([place], [place]) Address [address] [place] [address] Care Team Providers Care Waterworks Chief Engineer Name Role Phone Unavailable Primary Care Provider Unavailabl e Encounter Details Date Type Department Care Team (Late st Contact Info) Description 04/14/2019 Transcribed Document [facility] Family Medicine [facility] [place] [address] ProviderSharon MD [address] [place] [address] Social History Tobacco Use Types Packs/Day Years Used Date Smoking Tobacco: Never Assessed Sex and Gender Information Value Date Recorded Sex Assigned at Not on file Legal Sex Male 6:54 PM CDT Gender Identity Not on file Sexual Orientation Not on file documented as of this encounter Miscellaneous Notes * Cerner Conversion Note - Sharon ProviderMD - 04/14/2019 9:55 AM FISH TECHNOLOGIST Evaluation, Physical Therapy Entered On: 04/14/2019 15:53 [...] and heart catheter procedure was done at [facility] 04/13/2019. Pt reports previously coming to [facility] for an ablation before in the past but [facility] has no record of this procedure and [...] ROM : WFL Right UE Strength : [facility] JOAQUIN UNR, Student PT - 04/14/2019 15:14 EST Right Upper Extremity Detailed ROM Grid Right Shoulder Flexion Range Right Elbow Flexion Range Right Elbow Extension Range Right Wrist Flexion Range Active : WFL WFL [facility] JOAQUIN AVILA, Student PT - 04/14/2019 15:14 EST JOAQUIN NUR, Student PT - 04/14/2019 15:14 EST JOAQUIN NUR, Student PT - 04/14/2019 15:14 EST JOAQUIN NUR, Student PT - 04/14/2019 15:14 EST Right Wrist Extension Range Right Forearm Pronation Range Right Forearm Supination Range Active : WFL L [facility] JOAQUIN NUR, Student PT - 04/14/2019 [...] Flexion Range Active : WFL WFL WFL [facility] JOAQUIN NUR, Student PT - 04/14/2019 15:14 EST JOAQUIN NUR, Student PT - 04/14/2019 15:14 EST JOAQUIN NUR, Student PT - 04/14/2019 15:14 EST JOAQUIN NUR, Student PT - 04/14/2019 15:14 EST Left Wrist Extension Range Rehab Left Forearm Pronation Range Left Forearm Supination Range Active : WFL [facility] JOAQUIN NUR, Student PT - 04/14/2019 15:14 EST JOAQUIN NUR, Student PT - 04/14/2019 15:14 EST JOAQUIN NUR, Student PT - 04/14/2019 15:14 EST Upper Extremity Strength Impaired : Yes Right UE Strength : WFL Left UE Strength : [facility] JOAQUIN NUR, Student PT - 04/14/2019 [...] Student PT - 04/14/2019 15:14 EST Hand Rn Flight Test : pt is 3/5 symmetrically. JOAQUIN NUR, Student PT - 04/14/2019 15:14 EST Lower Extremity LLE Active ROM : [facility] LELIA JEWELL, PT - 04/14/2019 15:55 EST LELIA JEWELL, PT - 04/14/2019 15:55 EST RLE ROM Grid Hip Flexion (0-125) Knee Flexion (0-140) Knee Extension (0-0) Ankle Dorsiflexion (0-20) Active : WFL [facility] JOAQUIN NUR, Student PT - 04/14/2019 15:14 [...] LELIA JEWELL, PT - 04/14/2019 15:55 EST Marketing Liaison Goals Mobility/Bed Mobility LTG PT Grid Goal [...] gait and then repositioning back into bed. JOAQUNI NUR Student PT - 04/14/2019 15:14 EST Image 1 - Images currently included in the form version of this document have not been included in the text rendition version of the form. Anticipated Discharge Needs, OT/PT Anticipated Discharge to : Home, with family care JOAQUIN NUR Student PT - 04/14/2019 15:14 EST [place] PT Charges PT Eval Moderate Complexity : 1 JOAQUIN NUR Student PT - 04/14/2019 15:14 EST Electronically signed by [facility], [facility] Conversion Cna Hha Cerner at 06/19/2022 4:31 PM CDT documented in this encounter Plan of Treatment Not on file documented as of this encounter Visit Diagnoses Not on filedocumented in this encounter
--- OUTSIDE RECORDS SUMMARY | 2024-09-09 10:05 | XMS_ITS | Encounter Summary ---
Author Organization [employer] ([place], [place], [place], [place]) Address [address] [place] [address] Care Team Providers Care Seasoning Mixer Name Role Phone Unavailable Primary Care Provider Lilia tsang Encounter Details Date Type Department Care Team (Late st Contact Info) Description 04/13/2019 Transcribed Document [facility] [place] Family Medicine [facility] [place] [address] ProviderSharon MD [address] [place] [address] Social History Tobacco Use Types Packs/Day Years Used Date Smoking Tobacco: Never Assessed Sex and Gender Information Value Date Recorded Sex Assigned at Not on file Legal Sex Male 6:54 PM CDT Gender Identity Not on file Sexual Orientation Not on file documented as of this encounter Miscellaneous Notes * Cerner Conversion Note - Sharon ProviderMD - 04/13/2019 6:27 PM TOWER FOREMAN Patient: RAUDEL ZEPEDA Age: 54 years Sex: [...] influenza virus vaccine, inactivated: 0.5 mL, IntraMuscular, [id number] Documented Medications Documented Metoprolol Tartrate 100 mg [...] History of obstructive sleep apnea / IMO 60259667 / Confirmed SVT - Supraventricular tachycardia / SNOMED CT 4769718197 / Confirmed, Active Problems (7) Alcohol abuse [...]
--- OUTSIDE RECORDS SUMMARY | 2024-09-09 10:05 | XMS_ITS | Encounter Summary ---
Author Organization [employer] ([place], [place], [place]) Address [address] [place] [address] Care Team Providers Care Sweep Molder Name Role Phone Unavailable Primary Care Provider Unavailabl e Encounter Details Date Type Department Care Team (Late st Contact Info) Description 04/14/2019 Transcribed Document [facility] Family Medicine [facility] [place] [address] ProviderSharon MD [address] [place] [address] Social History Tobacco Use Types Packs/Day Years Used Date Smoking Tobacco: Never Assessed Sex and Gender Information Value Date Recorded Sex Assigned at Not on file Legal Sex Male 6:54 PM CDT Gender Identity Not on file Sexual Orientation Not on file documented as of this encounter Miscellaneous Notes * Cerner Conversion Note - Sharon [place] MD - 04/14/2019 7:44 AM ASSURANCE SENIOR MANAGER Patient: RAUDEL ZEPEDA Age: 54 years Sex: Male : 1965 Associated Diagnoses: None Author: JEANNE CONLEY MD-CAR Basic Information Back Up Machine Operator: Bisi Subjective NAD Health Status Allergies: Allergic [...] influenza virus vaccine, inactivated: 0.5 mL, IntraMuscular, [id number] Documented Medications Documented Metoprolol Tartrate 100 mg [...] All Problems Alcohol abuse / SNOMED CT 27697285 / Confirmed Anxiety / SNOMED CT 43972850 / Confirmed History of obstructive sleep apnea / IMO 92812267 / Confirmed Hypertension / SNOMED CT 3645426954 / Confirmed Hypothyroid / SNOMED CT 01546059 / Confirmed Smoker / SNOMED CT 763247738 / Confirmed SVT - Supraventricular tachycardia / SNOMED CT 6022415593 / Confirmed, Active Problems (7) Alcohol abuse [...] of motion, Normal strength. Integumentary: Warm, Dry, [place], Intact. Neurologic: Alert, Oriented. Psychiatric: Cooperative, Appropriate [...]
--- OUTSIDE RECORDS SUMMARY | 2024-09-09 10:05 | XMS_ITS | Encounter Summary ---
Author Organization [employer] ([place], [place], [place], [place]) Address [address] [place] [address] Care Team Providers Care Pilot Can Router Name Role Phone Unavailable Primary Care Provider Unavailabl e Encounter Details Date Type Department Care Team (Late st Contact Info) Description 04/15/2019 Transcribed Document [facility] [place] Family Medicine [facility] [place] [address] ProviderSharon MD [address] [place] [address] Social History Tobacco Use Types Packs/Day Years Used Date Smoking Tobacco: Never Assessed Sex and Gender Information Value Date Recorded Sex Assigned at Not on file Legal Sex Male 6:54 PM CDT Gender Identity Not on file Sexual Orientation Not on file documented as of this encounter Miscellaneous Notes * Cerner Conversion Note - Sharon ProviderMD - 04/15/2019 2:47 PM SHIM PLUG CUTTER Nursing Discharge Summary Entered On: 04/15/2019 14:47 EST Performed On: 04/15/2019 14:47 EST by KATIE KHANNA steam pan sponger Documentation Discharge Date/Time : 04/15/2019 15:46 EST [...] 04/15/2019 14:47 EST Electronically signed by [facility] Conversion Customer Care Associate Cerner at 06/19/2022 4:36 PM CDT documented in this encounter Plan of Treatment Not on file documented as of this encounter Visit Diagnoses Not on filedocumented in this encounter
--- OUTSIDE RECORDS SUMMARY | 2024-09-09 10:05 | XMS_ITS | Encounter Summary ---
Author Organization [employer] ([place], [place], [place], [place]) Address [address] [place] [address] Care Team Providers Care Purifying Plant Operator Name Role Phone Unavailable Primary Care Provider Unavailabl e Encounter Details Date Type Department Care Team (Late st Contact Info) Description 04/13/2019 Transcribed Document [facility] [facility] [place] [address] ProviderSharon MD [address] [place] [address] Social History Tobacco Use Types Packs/Day Years Used Date Smoking Tobacco: Never Assessed Sex and Gender Information Value Date Recorded Sex Assigned at Not on file Legal Sex Male 6:54 PM CDT Gender Identity Not on file Sexual Orientation Not on file documented as of this encounter Miscellaneous Notes * Cerner Conversion Note - Sharon ProviderMD - 04/13/2019 9:30 AM PACKER [facility] Main OR PACU Summary Primary Physician: SHILO MONTES DE OCA MD-[facility] Finalized Date/Time: 04/13/19 16:18:29 Pt. Name: RAUDEL ZEPEDA D.O.B./Sex: 1965 Male Med Rec #: [id number] Physician: MARLEY BERRIOS MD Financial #: [id number] Pt. Type: I Room/Bed: 14/1 Admit/Disch: 04/09/19 18:47:00 - Institution: [facility] Main OR PACU I Case Times Entry 1 In PACU I 04/13/19 15:35:00 Ready for PACU 04/13/19 16:13:00 Discharge Discharge from PACU 04/13/19 16:13:00 I Last Modified By: DEBORA MENDENHALL RN 04/13/19 16:17:58 [facility] Main OR PACU I Case Times Audit 04/13/19 16:17:58 Agricultural Commodities Grader: [id number] Modifier: [id number] <+> 1 Ready for PACU Discharge <+> 1 Discharge from PACU I Finalized By: DEBORA MENDENHALL RN Document Signatures Signed By: DEBORA MENDENHALL RN 04/13/19 16:18 Electronically signed by Phil [facility] Conversion Bilingual Legal Assistant Cerner at 06/19/2022 4:35 PM CDT documented in this encounter Plan of Treatment Not on file documented as of this encounter Visit Diagnoses Not on filedocumented in this encounter
--- OUTSIDE RECORDS SUMMARY | 2024-09-09 10:05 | XMS_ITS | Referral Summary ---
Author Organization [employer] ([place], [place], [place], [place]) Address [address] [place] [address] Care Team Providers Care Supervisor Plastics Name Role Phone Unavailable Primary Care Provider [...]
--- OUTSIDE RECORDS SUMMARY | 2024-09-09 10:05 | XMS_ITS | Encounter Summary ---
Author Organization Healthcare Address [address] [place] [address] Care Team Providers Care Autism Tutor Name Role Phone Casey Felix MD Primary Care Provider + [phone] Dotty Askew MD Unavailable [phone] Renetta Delgado LPN Unavailable Unavailable Encounter Details Date Type Department Care Team (Late Contact Info) Description 08/15/2023 Lab Requisition [facility] [address] [place] [address] Juan Pablo Rivas, DO [address] [place] [address] Encounter for general adult medical [...] Description 10/07/2024 3:00 PM EDT Office Visit [facility] [place] Maur[place] [address] [facility]. [address] [place] [id number] Jakub Malave MD [address] [place] [address] documented as of this encounter [...] History not provided 08/18/2023 5:29 PM EDT [facility] Interpretation, Body Fluid Acute inflammatory cells No pathogenic organisms seen Correlation with microbiology studies recommended A resident was involved in the service. I attest I examined the relevant preparations for the specimens and confirmed the diagnosis or interpretation. 08/18/2023 5:29 PM EDT [facility] Pathologist Signature, Body Fluid 08/18/2023 5:29 PM EDT [facility] Comment:Reviewed by: Yamini fong MD LAB CP ASR DISCLAIMER Yes 08/18/2023 5:29 PM EDT [facility] Joint Fluid 08/15/2023 11:5 9 AM EDT 08/15/2023 2:08 PM EDT us Juan Pablo Rivas DO LAB BODY FLUIDS AND STOOLS ORDER VALERIE Final Result [facility] [address] [place] [address] * (ABNORMAL) Body Fluid Cell Count w/ Diff (08/15/2023 11:59 AM EDT) Color, Body fluid Yellow LAB HEMATOLOGY METHOD 08/15/2023 4:01 PM EDT [facility] Appearance, Body fluid Cloudy(A) LAB [facility]ATOLOGY [facility] Volume, Body fluid 4.0 cc LAB HEMATOLOGY METHOD 08/15/2023 4:[facility] Fluid Container SPECIMEN RECEIVED IN EDTA TUBE LAB HEMATOLOGY METHOD 08/15/2023 4:01 PM EDT [facility] Red Blood Cell Count, Body fluid 64 uL LAB HEMATOLOGY METHOD 08/15/2023 4:01 PM [facility] Comment:Test performed by alexi tan method Total Nucleated Cell Count, Body fluid 13,742 uL LAB HEMATOLOGY METHOD 08/15/2023 4:01 PM EDT [facility] Neutrophils %, Body fluid 94 % LAB HEMATOLOGY METHOD 08/15/2023 4:01 [facility] Lymphocytes %, Body fluid 1 % LAB HEMATOLOGY METHOD 08/15/2023 4:01 PM EDT [facility] Monocytes/Macro phages %, Body fluid 5 % LAB HEMATOLOGY METHOD 08/15/2023 4:01 PM EDT [facility] Eosinophils %, Body fluid 0 % LAB HEMATOLOGY METHOD 08/15/2023 4:01 PM [facility] Basophils %, Body fluid 0 % LAB HEMATOLOGY METHOD 08/15/2023 4:01 PM EDT [facility] Lining/Mesothel ial Cells %, Body fluid 0 % LAB HEMATOLOGY METHOD 08/15/2023 4:01 PM [facility] Neutrophils Absolute (PMN), Body fluid 12,918 uL LAB HEMATOLOGY METHOD 08/15/2023 4:01 PM EDT [facility] Lymphocytes Absolute, Body fluid 137 uL LAB HEMATOLOGY METHOD 08/15/2023 4:01 PM [facility] Monocytes/Macro phages Absolute, Body fluid 687 uL LAB HEMATOLOGY METHOD 08/15/2023 4:01 PM [facility] Eosinophils Absolute, Body fluid 0 uL LAB HEMATOLOGY METHOD 08/15/2023 4:01 PM [facility] Basophils Absolute, Body fluid 0 uL LAB HEMATOLOGY METHOD 08/15/2023 4:01 PM [facility] Lining/Mesothel ial Cells Absolute, Body fluid 0 uL LAB HEMATOLOGY METHOD 08/15/2023 4:01 PM [facility] Comment, Body fluid NONE LAB HEMATOLOGY METHOD 08/15/2023 4:01 PM EDT [facility] Comment:This is an appended report. These results have been appended to a previously preliminary verified report. Joint Fluid 08/15/2023 11:5 9 AM EDT 08/15/2023 2:08 PM EDT us Gene J Rivas DO LAB BODY FLUIDS AND STOOLS ORDERABLES NO SPECIMEN TYPE/SOURCE Final Result Performing Organization Address [facility] de Phone Number [facility] [address] [place] [address] * Joint Fluid Crystals (08/15/2023 11:59 AM EDT) Crystals, Joint Fluid No Crystals Seen No Crystals Present 08/15/2023 3:09 PM EDT [facility]ALTH[facility] Joint Fluid 08/15/2023 11:5 9 AM EDT 08/15/2023 2:08 PM EDT us Gene J Rivas DO LAB BODY FLUIDS AND STOOLS ORDER VALERIE Final Result Performing Organization Address [facility] de Phone Number HEALTHC[facility] [address] [place] [address] documented in this encounter Visit Diagnoses Diagnosis [...] documented as of this encounter Care Teams Autism Tutor Relationship Specialty Start Date End Date Casey Felix MD [address] [place] [address] PCP - General 09/05/20 Dotty Asekw MD [address] [place] [address] Consulting Physician Pediatric Cardiology 09/05/20 Renetta Delgado LPN TCM Nurse 01/05/24 02/04/24 documented as of this encounter
--- OUTSIDE RECORDS SUMMARY | 2024-09-09 10:05 | XMS_ITS | Encounter Summary ---
Author Organization [employer] ([place], [place], [place], [place]) Address [address] [place] [address] Care Team Providers Care Stereoptic Projection Topographer Name Role Phone Unavailable Primary Care Provider Unavailabl e Encounter Details Date Type Department Care Team (Late st Contact Info) Description 04/15/2019 Transcribed Document [facility] [place] Family Medicine [place] [address] ProviderSharon MD [address] [place] [address] Social History Tobacco Use Types Packs/Day Years Used Date Smoking Tobacco: Never Assessed Sex and Gender Information Value Date Recorded Sex Assigned at Not on file Legal Sex Male 6:54 PM CDT Gender Identity Not on file Sexual Orientation Not on file documented as of this encounter Miscellaneous Notes * Cerner Conversion Note - Sharon Phillips MD - 04/15/2019 2:38 PM PLANT WRAPPER Patient Education Materials Follows: How to Take [...] 08/24/2003 Document Revised: 09/06/2016 Document Reviewed: 07/23/2016 [employer] Interactive Patient Education ? 2019 [employer]. How to Take Your Blood Pressure You [...] monitor. You can buy one at a [employer] or online. When choosing one: ??? Choose [...] 01/30/2009 Document Revised: 01/15/2017 Document Reviewed: 07/26/2016 [employer] Interactive Patient Education ? 2019 [employer] Inc. Heart-Healthy Eating Plan Many factors influence [...] foods can I eat? Grains Breads, including Nepali, white, nanci, wheat, raisin, rye, oatmeal, and Beninese. Tortillas that are neither fried nor made with lard or trans fat. Low-fat rolls, including hotdog and hamburger buns and Montserratian muffins. Biscuits. Muffins. Waffles. Pancakes. Light popcorn. [...] cooking, baking, salads, and as spreads. Other [place] powder. Coffee and tea. All seasonings and [...] cheese. Whole milk cheeses, including blue (john), [place] Dayron, Brie, Omar, Malian, Havarti, [place], cheddar, Camembert, and [place]. Whole or 2% milk that is liquid, [...] that has suet, meat fat, or shortening. [place] butter, hydrogenated oils, palm oil, coconut oil, [...] 11/26/2008 Document Revised: 09/06/2016 Document Reviewed: 08/11/2014 [employer] Interactive Patient Education ? 2019 [employer] Inc. Electrical Cardioversion Electrical cardioversion is the [...] including vitamins, herbs, eye drops, creams, and mxje-ram-vownkgm medicines. ??? Any problems you or family [...] 02/07/2003 Document Revised: 10/16/2016 Document Reviewed: 08/23/2016 [employer] Interactive Patient Education ? 2017 [employer] Inc. Emergency Medicine Supraventricular Tachycardia, Adult Supraventricular [...] as told by your doctor. ??? Take fbau-fdb-eglzwih and prescription medicines only as told by [...] 02/17/2006 Document Revised: 10/24/2016 Document Reviewed: 10/24/2016 [employer] Interactive Patient Education ? 2019 [employer] Inc. Electronically signed by Radha Villarreal Conversion Library Services Assistant Karthik at 06/19/2022 4:34 PM CDT documented in this encounter Plan of Treatment Not on file documented as of this encounter Visit Diagnoses Not on filedocumented in this encounter
--- OUTSIDE RECORDS SUMMARY | 2024-09-09 10:05 | XMS_ITS | Encounter Summary ---
Author Organization [employer] ([place], [place], [place], [place]) Address [address] [place] [address] Care Team Providers Care Shoe Caser Name Role Phone Unavailable Primary Care Provider Unavailabl e Encounter Details Date Type Department Care Team (Late st Contact Info) Description 04/14/2019 Transcribed Document [facility] [place] [facility] [place] [address] ProviderSharon [place] [facility] [place] [address] Social History Tobacco Use Types Packs/Day Years Used Date Smoking Tobacco: Never Assessed Sex and Gender Information Value Date Recorded Sex Assigned at Not on file Legal Sex Male 6:54 PM CDT Gender Identity Not on file Sexual Orientation Not on file documented as of this encounter Miscellaneous Notes * Cerner Conversion Note - Historical ProviderMD - 04/14/2019 9:56 AM SENIOR C SOFTWARE ENGINEER Valuables and Belongings Entered On: 04/14/2019 11:23 [...]
--- OUTSIDE RECORDS SUMMARY | 2024-09-09 10:05 | XMS_ITS | Encounter Summary ---
Author Organization [employer] ([place], [place], [place], [place]) Address [address] [place] [address] Care Team Providers Care Business Manager Name Role Phone Unavailable Primary Care Provider Unavailabl e Encounter Details Date Type Department Care Team (Late st Contact Info) Description 04/14/2019 Transcribed Document [facility] [place] [facility] [place] [address] ProviderSharon MD [address] [place] [address] Social History Tobacco Use Types Packs/Day Years Used Date Smoking Tobacco: Never Assessed Sex and Gender Information Value Date Recorded Sex Assigned at Not on file Legal Sex Male 6:54 PM CDT Gender Identity Not on file Sexual Orientation Not on file documented as of this encounter Miscellaneous Notes * Cerner Conversion Note - Sharon ProviderMD - 04/14/2019 9:55 AM CONFIDENTIAL INVESTIGATOR Evaluation, Occupational Therapy Entered On: 04/14/2019 14:29 EST Performed On: 04/14/2019 14:18 EST by STACEY MURDCOK OTR/Kavin General Information, OT Visit Type, OT [...] staying on task, cues for safety STACEY MURDOCKCHEPE/Kavni - 04/14/2019 14:18 EST Education OT Occupational [...] training, Safety education, Therapeutic activities, Therapeutic exercises TSACEY MURDOCK OTR/Kavin - 04/14/2019 14:18 EST Line Locator Goals, OT Dressing, Lower Body LTG Grid [...]
--- OUTSIDE RECORDS SUMMARY | 2024-09-09 10:05 | XMS_ITS | Encounter Summary ---
Author Organization [employer] ([place], [place], [place], [place]) Address [address] [place] [address] Care Team Providers Care Records Management Specialist Name Role Phone Unavailable Primary Care Provider Unavailabl e Encounter Details Date Type Department Care Team (Late st Contact Info) Description 04/15/2019 Transcribed Document [facility] [place] Medicine [facility] [place] [address] ProviderSharon MD [facility] [place] [address] Social History Tobacco Use Types Packs/Day Years Used Date Smoking Tobacco: Never Assessed Sex and Gender Information Value Date Recorded Sex Assigned at Not on file Legal Sex Male 6:54 PM CDT Gender Identity Not on file Sexual Orientation Not on file documented as of this encounter Miscellaneous Notes * Cerner Conversion Note - Historical ProviderMD - 04/15/2019 10:17 AM OUTBOUND SALES AGENT Attempt to Treat, PT Entered On: 04/15/2019 [...]
--- OUTSIDE RECORDS SUMMARY | 2024-09-09 10:05 | XMS_ITS | Encounter Summary ---
Author Organization [employer] ([place], [place], [place], [place]) Address [address] [place] [address] Care Team Providers Care Supervisor Labor Gang Name Role Phone Unavailable Primary Care Provider Unavailabl e Encounter Details Date Type Department Care Team (Late st Contact Info) Description 04/10/2019 Transcribed Document [facility] [place] [facility] [place] [address] ProviderSharon MD [facility] [place] [address] Social History Tobacco Use Types Packs/Day Years Used Date Smoking Tobacco: Never Assessed Sex and Gender Information Value Date Recorded Sex Assigned at Not on file Legal Sex Male 6:54 PM CDT Gender Identity Not on file Sexual Orientation Not on file documented as of this encounter Miscellaneous Notes * Cerner Conversion Note - Historical ProviderMD - 04/10/2019 5:00 AM POULTRY DRESSING WORKER Chart Check - Review Order Profile Entered On: 04/10/2019 6:18 EST Performed On: 04/10/2019 5:00 EST by Luda Kay, RN Chart Check Powerplans Initiated/Discontinued as Appropriate : Not applicable All Active Orders Reviewed : Yes Luda Kay RN - 04/10/2019 6:18 EST Electronically signed by Phil [facility] Conversion Station Baggage Porter Cerner at 06/19/2022 4:32 PM CDT documented in this encounter Plan of Treatment Not on file documented as of this encounter Visit Diagnoses Not on filedocumented in this encounter
--- OUTSIDE RECORDS SUMMARY | 2024-09-09 10:05 | XMS_ITS | Encounter Summary ---
Author Organization [employer] ([place], [place], [place], [place]) Address [address] [place] [address] Care Team Providers Care Clamp Operator Name Role Phone Unavailable Primary Care Provider Unavailabl e Encounter Details Date Type Department Care Team (Late st Contact Info) Description 04/14/2019 Transcribed Document [facility] [place] Family Medicine [facility] [place] [address] [place]Sharon [place] [address] Social History Tobacco Use Types Packs/Day Years Used Date Smoking Tobacco: Never Assessed Sex and Gender Information Value Date Recorded Sex Assigned at Not on file Legal Sex Male 6:54 PM CDT Gender Identity Not on file Sexual Orientation Not on file documented as of this encounter Miscellaneous Notes * Cerner Conversion Note - Historical ProviderMD - 04/14/2019 6:14 AM CELL LEAD Height and Weight, Routine Entered On: 04/14/2019 6:14 EST Performed On: 04/14/2019 6:14 EST by MORRO GILLIAM RN Height and Weight, Routine Routine Weight Source : Bed scale Routine Weight Entry Format : Metric Routine Weight, Kilograms : 106 kg(Converted to: 233 lb 11 oz) Routine Weight Calculation : 106 kg Height Source : Stated Height Entry Format : Pollock Height, Feet : 6 ft Height, Inches : 1 Inch Clinical Height : 185.42 cm Body Surface Area (BSA), Routine : 2.3 m2 Body Mass Index (BMI), Routine : 30.83 kg/m2 MORRO GILLIAM RN - 04/14/2019 6:14 EST Electronically signed by Phil [facility] Conversion Environmental Monitoring Specialist Cerner at 06/19/2022 4:30 PM CDT documented in this encounter Plan of Treatment Not on file documented as of this encounter Visit Diagnoses Not on filedocumented in this encounter
--- OUTSIDE RECORDS SUMMARY | 2024-09-09 10:05 | XMS_ITS | Encounter Summary ---
Author Organization [employer] ([place], [place], [place], [place]) Address [address] [place] [address] Care Team Providers Care Fur Puller Name Role Phone Unavailable Primary Care Provider Unavailabl e Encounter Details Date Type Department Care Team (Late st Contact Info) Description 04/13/2019 Transcribed Document [facility] [place] [facility] [place] [address] ProviderSharon MD [facility] [place] [address] Social History Tobacco Use Types Packs/Day Years Used Date Smoking Tobacco: Never Assessed Sex and Gender Information Value Date Recorded Sex Assigned at Not on file Legal Sex Male 6:54 PM CDT Gender Identity Not on file Sexual Orientation Not on file documented as of this encounter Miscellaneous Notes * Cerner Conversion Note - Historical ProviderMD - 04/13/2019 4:14 AM CABLE FORMER Height and Weight, Routine Entered On: 04/13/2019 4:15 EST Performed On: 04/13/2019 4:14 EST by MORRO GILLIAM RN Height and Weight, Routine Routine Weight Source : Bed scale Routine Weight Entry Format : Metric Routine Weight, Kilograms : 108.3 kg(Converted to: 238 lb 12 oz) Routine Weight Calculation : 108.3 kg Height Source : Stated Height Entry Format : Grulla Height, Feet : 6 ft Height, Inches : 1 Inch Clinical Height : 185.42 cm Body Surface Area (BSA), Routine : 2.32 m2 Body Mass Index (BMI), Routine : 31.5 kg/m2 MORRO GILLIAM RN - 04/13/2019 4:14 EST Electronically signed by Phil [facility] Conversion Mainspring Strip Inspector Cerner at 06/19/2022 4:38 PM CDT documented in this encounter Plan of Treatment Not on file documented as of this encounter Visit Diagnoses Not on filedocumented in this encounter
--- OUTSIDE RECORDS SUMMARY | 2024-09-09 10:05 | XMS_ITS | Encounter Summary ---
Author Organization [employer] ([place], [place], [place], [place]) Address [address] [place] [address] Care Team Providers Care Spring Bender Name Role Phone Unavailable Primary Care Provider Unavailabl e Encounter Details Date Type Department Care Team (Late st Contact Info) Description 04/15/2019 Transcribed Document [facility] [place] Family Medicine [facility] [place] [address] ProviderSharon MD [facility] [place] [address] Social History Tobacco Use Types Packs/Day Years Used Date Smoking Tobacco: Never Assessed Sex and Gender Information Value Date Recorded Sex Assigned at Not on file Legal Sex Male 6:54 PM CDT Gender Identity Not on file Sexual Orientation Not on file documented as of this encounter Miscellaneous Notes * Cerner Conversion Note - Historical ProviderMD - 04/15/2019 2:00 AM COAT EXAMINER Cold Press Operator Details Entered On: 04/15/2019 4:16 EST Performed [...]
--- OUTSIDE RECORDS SUMMARY | 2024-09-09 10:05 | XMS_ITS | Encounter Summary ---
Author Organization [employer] ([place], [place], [place], [place]) Address [address] [place] [address] Care Team Providers Care Digital Marketing Executive Name Role Phone Unavailable Primary Care Provider Unavailabl e Encounter Details Date Type Department Care Team (Late st Contact Info) Description 04/14/2019 Transcribed Document [facility] [place] [facility] [place] [address] ProviderSharon MD [facility] [place] [address] Social History Tobacco Use Types Packs/Day Years Used Date Smoking Tobacco: Never Assessed Sex and Gender Information Value Date Recorded Sex Assigned at Not on file Legal Sex Male 6:54 PM CDT Gender Identity Not on file Sexual Orientation Not on file documented as of this encounter Miscellaneous Notes * Cerner Conversion Note - Historical ProviderMD - 04/14/2019 5:00 PM SCRAP BURNER Chart Check - Review Order Profile Entered [...]
--- OUTSIDE RECORDS SUMMARY | 2024-09-09 10:05 | XMS_ITS | Encounter Summary ---
Author Organization [employer] ([place], [place], [place], [place]) Address [address] [place] [address] Care Team Providers Care Care Clinician Name Role Phone Unavailable Primary Care Provider Unavailabl e Encounter Details Date Type Department Care Team (Late st Contact Info) Description 04/13/2019 Transcribed Document [facility] [place] [facility] [place] [address] ProviderSharon MD [address] [place] [address] Social History Tobacco Use Types Packs/Day Years Used Date Smoking Tobacco: Never Assessed Sex and Gender Information Value Date Recorded Sex Assigned at Not on file Legal Sex Male 6:54 PM CDT Gender Identity Not on file Sexual Orientation Not on file documented as of this encounter Miscellaneous Notes * Cerner Conversion Note - Sharon Phillips MD - 04/13/2019 7:16 AM CONTROL BOARD OPERATOR Patient: RAUDEL ZEPEDA Age: 54 years Sex: Male : 1965 Associated Diagnoses: None Author: JEANNE CONLEY MD-CAR Basic Information Head Sampler: Bisi Trejo [facility] Health Status Current medications: (Selected) Inpatient Medications [...] influenza virus vaccine, inactivated: 0.5 mL, IntraMuscular, [id number], Home Medications (9) Active doxepin 10 mg, [...] motion, Normal strength. Integumentary: Warm, Dry, [place], Intact. Neurologic: Alert, Oriented. Psychiatric: Cooperative, [...]
--- OUTSIDE RECORDS SUMMARY | 2024-09-09 10:05 | XMS_ITS | Encounter Summary ---
Author Organization [employer] ([place], [place], [place], [place]) Address [address] [place] [address] Care Team Providers Care Aml Analyst Name Role Phone Unavailable Primary Care Provider Unavailabl e Encounter Details Date Type Department Care Team (Late st Contact Info) Description 04/14/2019 Transcribed Document [facility] [place] Family Medicine [facility] [place] [address] ProviderSharon MD [facility] [place] [address] Social History Tobacco Use Types Packs/Day Years Used Date Smoking Tobacco: Never Assessed Sex and Gender Information Value Date Recorded Sex Assigned at Not on file Legal Sex Male 6:54 PM CDT Gender Identity Not on file Sexual Orientation Not on file documented as of this encounter Miscellaneous Notes * Cerner Conversion Note - Historical ProviderMD - 04/14/2019 9:56 AM MANAGER POST Php Architect Details Entered On: 04/14/2019 11:23 EST Performed [...] SYLVAIN FELICIANO, HORTENCIA - 04/14/2019 11:22 EST Electronically signed by Phil [facility] Conversion Chief Clinical Officer Cerner at 06/19/2022 4:28 PM CDT documented in this encounter Plan of Treatment Not on file documented as of this encounter Visit Diagnoses Not on filedocumented in this encounter
--- OUTSIDE RECORDS SUMMARY | 2024-09-09 10:05 | XMS_ITS | Encounter Summary ---
Author Organization [employer] ([place], [place], [place], [place]) Address [address] [place] [address] Care Team Providers Care Information Security Specialist Name Role Phone Unavailable Primary Care Provider Unavailabl e Encounter Details Date Type Department Care Team (Late st Contact Info) Description 04/10/2019 Transcribed Document [facility] [place] Family Medicine [facility] [place] [address] ProviderSharon MD [facility] [place], [place] [address] Social History Tobacco Use Types Packs/Day Years Used Date Smoking Tobacco: Never Assessed Sex and Gender Information Value Date Recorded Sex Assigned at Not on file Legal Sex Male 6:54 PM CDT Gender Identity Not on file Sexual Orientation Not on file documented as of this encounter Miscellaneous Notes * Cerner Conversion Note - Historical ProviderMD - 04/10/2019 12:32 PM MULTI DISCIPLINED LANGUAGE ANALYST UM Authorization Entered On: 04/10/2019 12:33 EST Performed On: 04/10/2019 12:32 EST by Alonso Malik Mkt Fire Alarm Repairer-Utilization Mgt Primary Insurance Authorization Authorization and Policy Numbers : Insurance 1 Health Plan: [employer] FED Policy Number: [id number] Authorization Number: Insurance Primary Name : [facility] [id number] Authorization Status-Primary : Awaiting callback Authorized Service Begin Date-Primary : 04/09/2019 EST Authorization Comments-Primary : Clinicals paper faxed. Historical Authorization Comments-Primary : No Authorization Comments Found Alonso Malik Mkt Fire Alarm Repairer-Utilization Mgt - 04/10/2019 12:32 EST Electronically signed by Phil [facility] Conversion Sanitary Landfill Supervisor Cerner at 06/19/2022 4:40 PM CDT documented in this encounter Plan of Treatment Not on file documented as of this encounter Visit Diagnoses Not on filedocumented in this encounter
--- OUTSIDE RECORDS SUMMARY | 2024-09-09 10:05 | XMS_ITS | Encounter Summary ---
Author Organization [employer] ([place], [place], [place], [place]) Address [address] [place] [address] Care Team Providers Care Verifier Name Role Phone Unavailable Primary Care Provider Unavailabl e Encounter Details Date Type Department Care Team (Late st Contact Info) Description 04/13/2019 Transcribed Document [facility] [place] [facility] [address] ProviderSharon MD [facility] [place] [address] Social History Tobacco Use Types Packs/Day Years Used Date Smoking Tobacco: Never Assessed Sex and Gender Information Value Date Recorded Sex Assigned at Not on file Legal Sex Male 6:54 PM CDT Gender Identity Not on file Sexual Orientation Not on file documented as of this encounter Miscellaneous Notes * Cerner Conversion Note - Historical ProviderMD - 04/13/2019 2:00 AM SERVER MANAGER Insurance Territory Manager Details Entered On: 04/13/2019 1:05 EST Performed [...] MORRO GILLIAM RN - 04/13/2019 1:05 EST Electronically signed by Radha Villarreal Conversion Rotary Planer Set Up Operator Cerner at 06/19/2022 4:39 PM CDT documented in this encounter Plan of Treatment Not on file documented as of this encounter Visit Diagnoses Not on filedocumented in this encounter
--- OUTSIDE RECORDS SUMMARY | 2024-09-09 10:05 | XMS_ITS | Encounter Summary ---
Author Organization [employer] ([place], [place], [place], [place]) Address [address] [place] [address] Care Team Providers Care Drill Instructor Name Role Phone Unavailable Primary Care Provider Unavailabl e Encounter Details Date Type Department Care Team (Late st Contact Info) Description 04/19/2019 Transcribed Document [facility] [place] [facility] [place] [address] ProviderSharon MD [facility] [place] [address] Social History Tobacco Use Types Packs/Day Years Used Date Smoking Tobacco: Never Assessed Sex and Gender Information Value Date Recorded Sex Assigned at Not on file Legal Sex Male 6:54 PM CDT Gender Identity Not on file Sexual Orientation Not on file documented as of this encounter Miscellaneous Notes * Cerner Conversion Note - Sharon ProviderMD - 04/19/2019 9:27 AM QUARTER SEAMER UM Authorization Entered On: 04/19/2019 9:27 EST Performed On: 04/19/2019 9:27 EST by DARBY ELIAS RN Primary Insurance Authorization Authorization and Policy Numbers : Insurance 1 Health Plan: [employer] FED Policy Number: [id number] Authorization Number: Insurance Primary Name : Hiren [id number] Authorization Status-Primary : Drg approved Reference Number-Primary : [id number] Number of Days Authorized-Primary : 9 Day(s) [...] submitted via Availity as pt has commercial [place] plan, not Federal as listed. (Alonso Malik Mkt Steam Shovel Operating Engineer-Utilization Mgt 04/10/2019 12:42) Comment 3: Clinicals paper faxed. (Alonso Malik Mkt Steam Shovel Operating Engineer-Utilization Mgt 04/10/2019 12:32) DARBY ELIAS RN - 04/19/2019 9:27 EST Electronically signed by [facility] Conversion Fisheries Management Biologist Cerner at 06/19/2022 4:40 PM CDT documented in this encounter Plan of Treatment Not on file documented as of this encounter Visit Diagnoses Not on filedocumented in this encounter
--- OUTSIDE RECORDS SUMMARY | 2024-09-09 10:05 | XMS_ITS | Encounter Summary ---
Author Organization [employer] ([place], [place], [place]) Address [address] [place] [address] Care Team Providers Care Sanding Machine Operator Or Tender Name Role Phone Unavailable Primary Care Provider Unavailabl e Encounter Details Date Type Department Care Team (Late st Contact Info) Description 04/15/2019 Transcribed Document [facility] [place] [facility] [place] [address] ProviderSharon MD [facility] [place] [address] Social History Tobacco Use Types Packs/Day Years Used Date Smoking Tobacco: Never Assessed Sex and Gender Information Value Date Recorded Sex Assigned at Not on file Legal Sex Male 6:54 PM CDT Gender Identity Not on file Sexual Orientation Not on file documented as of this encounter Miscellaneous Notes * Cerner Conversion Note - Historical ProviderMD - 04/15/2019 3:30 PM DECORATOR INSPECTOR [facility] [place] [id number] Visit Date/Time: 04/15/2019 15:30:49 DUANE RAUDEL The above patient was seen in the hospital today and needs to be excused from work/school until Return to Work/School Date: Mr. Richardson was in the hospital from 04/09/2019 to 04/15/2019. Advised to return to work in 1 week or after 04/22/2019. Electronically signed by [facility], [facility] Conversion Supervisor Joiners Cerner at 06/19/2022 4:37 PM CDT documented in this encounter Plan of Treatment Not on file documented as of this encounter Visit Diagnoses Not on filedocumented in this encounter
--- OUTSIDE RECORDS SUMMARY | 2024-09-09 10:05 | XMS_ITS | Encounter Summary ---
Author Organization [employer] ([place], [place], [place]) Address [address] [place] [address] Care Team Providers Care Harvest Worker Fruit Name Role Phone Unavailable Primary Care Provider Unavailabl e Encounter Details Date Type Department Care Team (Late st Contact Info) Description 04/15/2019 Transcribed Document [facility] [place] [facility] [place] [address] ProviderSharon MD [address] [place] [address] Social History Tobacco Use Types Packs/Day Years Used Date Smoking Tobacco: Never Assessed Sex and Gender Information Value Date Recorded Sex Assigned at Not on file Legal Sex Male 6:54 PM CDT Gender Identity Not on file Sexual Orientation Not on file documented as of this encounter Miscellaneous Notes * Cerner Conversion Note - Sharon Phillips MD - 04/15/2019 11:07 AM STUDENT MINISTRIES DIRECTOR Patient: RAUDEL ZEPEDA Age: 54 years [...] All Problems Alcohol abuse / SNOMED CT 50854035 / Confirmed Anxiety / SNOMED CT 61097573 / Confirmed History of obstructive sleep apnea / IMO [id number] / Confirmed Hypertension / SNOMED CT 5361551999 / Confirmed Hypothyroid / SNOMED CT 49730796 / Confirmed Smoker / SNOMED CT 651466330 / Confirmed SVT - Supraventricular tachycardia / SNOMED CT 7964137902 / Confirmed, Active Problems (7) Alcohol abuse [...] of motion, Normal strength. Integumentary: Warm, Dry, [place], Intact. Neurologic: Alert, Oriented. Psychiatric: Cooperative, Appropriate [...] 55 yo male followed by Dr. Mathews [id number] 1 of at least one echo pending [...] with EPS/ablation this afternoon. 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
--- OUTSIDE RECORDS SUMMARY | 2024-09-09 10:05 | XMS_ITS | Encounter Summary ---
Author Organization [employer] ([place], [place], [place], [place]) Address [address] [place] [address] Care Team Providers Care Food Taster Name Role Phone Unavailable Primary Care Provider Unavailabl e Encounter Details Date Type Department Care Team (Late st Contact Info) Description 04/15/2019 Transcribed Document [facility] [place] [facility] [place] [address] ProviderSharon MD [facility] [place] [address] Social History Tobacco Use Types Packs/Day Years Used Date Smoking Tobacco: Never Assessed Sex and Gender Information Value Date Recorded Sex Assigned at Not on file Legal Sex Male 6:54 PM CDT Gender Identity Not on file Sexual Orientation Not on file documented as of this encounter Miscellaneous Notes * Cerner Conversion Note - Historical ProviderMD - 04/15/2019 2:46 PM LABOR ARBITRATOR HEARING OFFICE Stroke/Warfarin Instructions Entered On: 04/15/2019 14:46 EST Performed On: 04/15/2019 14:46 EST by KATIE KHANNA RN Stroke/Warfarin Instructions Stroke/TIA Discharge Ins : N/A Warfarin Discharge Ins : N/A KATIE KHANNA RN - 04/15/2019 14:46 EST Electronically signed by Julien Villarreal Conversion Forest Science Professor Dreadner at 06/19/2022 4:36 PM CDT documented in this encounter Plan of Treatment Not on file documented as of this encounter Visit Diagnoses Not on filedocumented in this encounter
--- OUTSIDE RECORDS SUMMARY | 2024-09-09 10:05 | XMS_ITS | Encounter Summary ---
Author Organization [employer] ([place], [place], [place]) Address [address] [place] [address] Care Team Providers Care Barrel Dedenting Machine Operator Name Role Phone Unavailable Primary Care Provider Unavailabl e Encounter Details Date Type Department Care Team (Late st Contact Info) Description 04/15/2019 Transcribed Document [facility] [place] [facility] [place] [address] ProviderSharon MD [address] [place] [address] Social History Tobacco Use Types Packs/Day Years Used Date Smoking Tobacco: Never Assessed Sex and Gender Information Value Date Recorded Sex Assigned at Not on file Legal Sex Male 6:54 PM CDT Gender Identity Not on file Sexual Orientation Not on file documented as of this encounter Miscellaneous Notes * Cerner Conversion Note - Sharon ProviderMD - 04/15/2019 12:35 PM HEAD MACHINE FEEDER Behavioral Health Assessment Note Entered On: 04/15/2019 12:45 EST Performed On: 04/15/2019 12:35 EST by SHARON GUERRERO, PIPE FITTER HELPER I-TRIAGE Behavioral Health Assessment Note Reason For Behavioral Health Assessment : Pt is a 54 year old male who presented to [facility] for heart concerns. Pt denies current [...] Departure, General Discharge : Unknown SHARON GUERRERO, PIPE FITTER HELPER I-TRIAGE - 04/15/2019 12:35 EST Social History (As Of: 04/15/2019 12:45:41 EST) documented in this encounter Plan of Treatment Not on file documented as of this encounter Visit Diagnoses Not on filedocumented in this encounter
--- OUTSIDE RECORDS SUMMARY | 2024-09-09 10:06 | XMS_ITS | Encounter Summary ---
Author Organization [employer] ([place], [place], [place], [place]) Address [address] [place] [address] Care Team Providers Care Forestry And Wildlife Manager Name Role Phone Unavailable Primary Care Provider Unavailabl e Encounter Details Date Type Department Care Team (Late st Contact Info) Description 04/09/2019 Transcribed Document [facility] [place] [facility] [place] [address] ProviderSharon MD [facility] [address] Social History Tobacco Use Types Packs/Day Years Used Date Smoking Tobacco: Never Assessed Sex and Gender Information Value Date Recorded Sex Assigned at Not on file Legal Sex Male 6:54 PM CDT Gender Identity Not on file Sexual Orientation Not on file documented as of this encounter Miscellaneous Notes * Cerner Conversion Note - Historical ProviderMD - 04/09/2019 7:11 PM WEED COOKING OPERATOR Consult Phone Call Documentation Entered On: 04/10/2019 3:15 EST Performed On: 04/09/2019 19:11 EST by Luda Kay, RN Phone Call for Consults Consult Phone Call/Page Attempt : First call Date and Time Call Returned : 04/09/2019 19:00 EST Consult, Additional Information : MOTOR ASSEMBLY SUPERVISOR came to see patient Luda Kay, RN - 04/10/2019 3:12 EST documented in this encounter Plan of Treatment Not on file documented as of this encounter Visit Diagnoses Not on filedocumented in this encounter
--- OUTSIDE RECORDS SUMMARY | 2024-09-09 10:06 | XMS_ITS | Encounter Summary ---
Author Organization [employer] ([place]) Address [address] [place] [address] Care Team Providers Care Brimming Machine Operator Name Role Phone Unavailable Primary Care Provider Unavailabl e Encounter Details Date Type Department Care Team (Late st Contact Info) Description 04/09/2019 Transcribed Document [facility] [place] [facility] [place] [address] ProviderSharon MD [address] [place] [id number] Social History Tobacco Use Types Packs/Day Years Used Date Smoking Tobacco: Never Assessed Sex and Gender Information Value Date Recorded Sex Assigned at Not on file Legal Sex Male 6:54 PM CDT Gender Identity Not on file Sexual Orientation Not on file documented as of this encounter Miscellaneous Notes * Cerner Conversion Note - Sharon Phillips MD - 04/09/2019 11:29 PM WAX MOLDER DATE OF ADMISSION: 04/09/2019 PRIMARY CARE PHYSICIAN: [...] difficulty breathing. The patient was transferred to [facility], on amiodarone drip. The patient came [...] was reviewed. Critical time spent, 55 minutes. /[id number] MD SARA Alvarez/BETTY / SARA / BETY documented in this encounter Plan of Treatment Not on file documented as of this encounter Visit Diagnoses Not on filedocumented in this encounter
--- OUTSIDE RECORDS SUMMARY | 2024-09-09 10:06 | XMS_ITS | Encounter Summary ---
Author Organization [employer] ([place], [place]) Address [address] [place] [address] Care Team Providers Care Weaver Axminster Name Role Phone Unavailable Primary Care Provider Unavailabl e Encounter Details Date Type Department Care Team (Late st Contact Info) Description 04/12/2019 Transcribed Document [facility] [place] [facility] [place] [address] ProviderSharon [place] [address] Social History Tobacco Use Types Packs/Day Years Used Date Smoking Tobacco: Never Assessed Sex and Gender Information Value Date Recorded Sex Assigned at Not on file Legal Sex Male 6:54 PM CDT Gender Identity Not on file Sexual Orientation Not on file documented as of this encounter Miscellaneous Notes * Cerner Conversion Note - Historical ProviderMD - 04/12/2019 10:23 AM MACHINE BASTER Education-Surgery Entered On: 04/12/2019 13:15 EST Performed On: 04/12/2019 10:23 EST by ASHLEY BREWER RN Teaching/Learning Assessment Barriers To Learning : Vision Impairment, Other: potential for withdrawal Learning Style Preferences Patient : Verbal explanation SAHLEY BREWER RN - 04/12/2019 13:15 EST documented in this encounter Plan of Treatment Not on file documented as of this encounter Visit Diagnoses Not on filedocumented in this encounter
--- OUTSIDE RECORDS SUMMARY | 2024-09-09 10:06 | XMS_ITS | Encounter Summary ---
Author Organization [employer] ([place], [place], [place], [place]) Address [address] [place] [address] Care Team Providers Care Reservations Specialist Name Role Phone Unavailable Primary Care Provider Unavailabl e Encounter Details Date Type Department Care Team (Late st Contact Info) Description 04/12/2019 Transcribed Document [facility] [place] [facility] [place] [address] ProviderSharon MD [facility] [place] [address] Social History Tobacco Use Types Packs/Day Years Used Date Smoking Tobacco: Never Assessed Sex and Gender Information Value Date Recorded Sex Assigned at Not on file Legal Sex Male 6:54 PM CDT Gender Identity Not on file Sexual Orientation Not on file documented as of this encounter Miscellaneous Notes * Cerner Conversion Note - Sharon ProviderMD - 04/12/2019 8:17 AM ASPHALT DISTRIBUTOR OPERATOR UM Authorization Entered On: 04/12/2019 8:23 EST Performed On: 04/12/2019 8:17 EST by DARBY ELIAS RN Primary Insurance Authorization Authorization and Policy Numbers : Insurance 1 Health Plan: [employer] FED Policy Number: [id number] Authorization Number: Insurance Primary Name : Hiren [id number] Authorization Status-Primary : Drg approved Reference Number-Primary : [id number] Number of Days Authorized-Primary : 9 Day(s) Authorized Service Begin Date-Primary : 04/09/2019 EST Authorized Service End Date-Primary : 04/18/2019 EST Authorization Comments-Primary : Per [employer]aility, IP admit approved DRG NRD 04/19/2019. Historical Authorization Comments-Primary : Comment 1: Inpt auth requested and clinicals submitted via Availity as pt has commercial [place] plan, not Federal as listed. (Alonso Malik, Herrerat Car Racer-Utilization Mgt 04/10/2019 12:42) Comment 2: Clinicals paper faxed. (Alonso Malik Mkt Car Racer-Utilization Mgt 04/10/2019 12:32) DARBY ELIAS RN - 04/12/2019 8:17 EST documented in this encounter Plan of Treatment Not on file documented as of this encounter Visit Diagnoses Not on filedocumented in this encounter
--- OUTSIDE RECORDS SUMMARY | 2024-09-09 10:06 | XMS_ITS | Encounter Summary ---
Author Organization [employer] ([place], [place], [place]) Address [address] [place] [address] Care Team Providers Care Industrial Relations Worker Name Role Phone Unavailable Primary Care Provider Unavailabl e Encounter Details Date Type Department Care Team (Late st Contact Info) Description 04/12/2019 Transcribed Document [facility] [place] [address] [place] [address] ProviderSharon MD [address] [place] [address] Social History Tobacco Use Types Packs/Day Years Used Date Smoking Tobacco: Never Assessed Sex and Gender Information Value Date Recorded Sex Assigned at Not on file Legal Sex Male 6:54 PM CDT Gender Identity Not on file Sexual Orientation Not on file documented as of this encounter Miscellaneous Notes * Cerner Conversion Note - Historical ProviderMD - 04/12/2019 8:01 AM FORENSIC MANAGER Height and Weight, Routine Entered On: 04/12/2019 8:01 EST Performed On: 04/12/2019 8:01 EST by MORRO GILLIAM RN Height and Weight, Routine Routine Weight Source : Bed scale Routine Weight Entry Format : Metric Height Source : Stated Height Entry Format : [place] Height, Feet : 6 ft Height, Inches : 1 Inch Clinical Height : 185.42 cm MORRO GILLIAM RN - 04/12/2019 8:01 EST documented in this encounter Plan of Treatment Not on file documented as of this encounter Visit Diagnoses Not on filedocumented in this encounter
--- OUTSIDE RECORDS SUMMARY | 2024-09-09 10:06 | XMS_ITS | Encounter Summary ---
Author Organization [email or web address] ([place]) Address [address] [place] [address] Care Team Providers Care Autobody Technician Name Role Phone Unavailable Primary Care Provider Unavailabl e Encounter Details Date Type Department Care Team (Late st Contact Info) Description 04/12/2019 Transcribed Document [facility] [place] [facility] [place] [address] ProviderSharon MD [address] [place] [address] Social History Tobacco Use Types Packs/Day Years Used Date Smoking Tobacco: Never Assessed Sex and Gender Information Value Date Recorded Sex Assigned at Not on file Legal Sex Male 6:54 PM CDT Gender Identity Not on file Sexual Orientation Not on file documented as of this encounter Miscellaneous Notes * Cerner Conversion Note - Sharon Phillips MD - 04/12/2019 7:55 AM ENDOCRINOLOGY NURSE Patient: RAUDEL ZEPEDA Age: 54 years Sex: Male : 1965 Associated Diagnoses: None Author: JEANNE CONLEY MD-CAR Basic Information Entry Level Marketing Representative: Bisi Trejo [facility] Health Status Current medications: (Selected) Inpatient [...] influenza virus vaccine, inactivated: 0.5 mL, IntraMuscular, [id number], Home Medications (9) Active doxepin , Oral [...] of motion, Normal strength. Integumentary: Warm, Dry, [place], Intact. Neurologic: Alert, Oriented. Psychiatric: Cooperative, Appropriate [...]
--- OUTSIDE RECORDS SUMMARY | 2024-09-09 10:06 | XMS_ITS | Encounter Summary ---
Author Organization [employer] ([place], [place]) Address [address] [place] [address] Care Team Providers Care Base Manager Name Role Phone Unavailable Primary Care Provider Unavailabl e Encounter Details Date Type Department Care Team (Late st Contact Info) Description 04/09/2019 Transcribed Document [facility] [place] [facility] [place] [address] ProviderSharon MD [facility] [place], [place] [address] Social History Tobacco Use Types Packs/Day Years Used Date Smoking Tobacco: Never Assessed Sex and Gender Information Value Date Recorded Sex Assigned at Not on file Legal Sex Male 6:54 PM CDT Gender Identity Not on file Sexual Orientation Not on file documented as of this encounter Miscellaneous Notes * Cerner Conversion Note - Sharon ProviderMD - 04/09/2019 8:32 PM INTERNATIONAL EXCHANGE COORDINATOR Consult Phone Call Documentation Entered On: 04/10/2019 8:43 EST Performed On: 04/10/2019 8:00 EST by Crystal Adamson [facility] Phone Call for Consults Consult Phone Call/Page Attempt : Other: aware of consult Provider Service Notified Name : Cardiology Crystal Adamson [facility] - 04/10/2019 8:42 EST Electronically signed by Phil [facility] Conversion Award Machine Operator [employer]da at 06/19/2022 4:34 PM CDT documented in this encounter Plan of Treatment Not on file documented as of this encounter Visit Diagnoses Not on filedocumented in this encounter
--- OUTSIDE RECORDS SUMMARY | 2024-09-09 10:06 | XMS_ITS | Encounter Summary ---
Author Organization [employer] ([place]) Address [address] [place] [address] Care Team Providers Care Screen Vent Binder Name Role Phone Unavailable Primary Care Provider Unavailabl e Encounter Details Date Type Department Care Team (Late st Contact Info) Description 04/12/2019 Transcribed Document [facility] [place] [facility] [place] [address] ProviderSharon MD [facility] [place] [address] Social History Tobacco Use Types Packs/Day Years Used Date Smoking Tobacco: Never Assessed Sex and Gender Information Value Date Recorded Sex Assigned at Not on file Legal Sex Male 6:54 PM CDT Gender Identity Not on file Sexual Orientation Not on file documented as of this encounter Miscellaneous Notes * Cerner Conversion Note - Historical ProviderMD - 04/12/2019 2:00 AM BIOMEDICAL ENGINEERING TECHNOLOGIST Chemical Pathologist Details Entered On: 04/12/2019 8:08 EST Performed [...]
--- OUTSIDE RECORDS SUMMARY | 2024-09-09 10:06 | XMS_ITS | Encounter Summary ---
Author Organization [employer] ([place], [place]) Address [address] [place] [address] Care Team Providers Care Reconciliation Clerk Name Role Phone Unavailable Primary Care Provider Unavailabl e Encounter Details Date Type Department Care Team (Late st Contact Info) Description 04/10/2019 Transcribed Document [facility] [place] [facility] [place] [address] ProviderSharon MD [address] [place] [address] Social History Tobacco Use Types Packs/Day Years Used Date Smoking Tobacco: Never Assessed Sex and Gender Information Value Date Recorded Sex Assigned at Not on file Legal Sex Male 6:54 PM CDT Gender Identity Not on file Sexual Orientation Not on file documented as of this encounter Miscellaneous Notes * Cerner Conversion Note - Sharon ProviderMD - 04/10/2019 2:07 PM PROFESSIONAL HOUSING CONSULTANT Patient: RAUDEL ZEPEDA Age: 54 Years Sex: [...] influenza virus vaccine, inactivated, 0.5 mL, IntraMuscular, [id number] labetalol, 20 mg= 4 mL, IV Push, [...] Appearance CLEAR2 04/09/2019 21:55 EST Urine Specific [place] 1.014 04/09/2019 21:55 EST Urine pH Dipstick [...]
--- OUTSIDE RECORDS SUMMARY | 2024-09-09 10:06 | XMS_ITS | Encounter Summary ---
Author Organization [facility] [facility] ([place], [place], [place], [place]) Address [address] [place] [address] Care Team Providers Care Transitional Nurse Name Role Phone Unavailable Primary Care Provider Unavailabl e Encounter Details Date Type Department Care Team (Late st Contact Info) Description 04/09/2019 Transcribed Document [facility] [place] [facility] [place] [address] ProviderSharon MD [address] [place] [address] Social History Tobacco Use Types Packs/Day Years Used Date Smoking Tobacco: Never Assessed Sex and Gender Information Value Date Recorded Sex Assigned at Not on file Legal Sex Male 6:54 PM CDT Gender Identity Not on file Sexual Orientation Not on file documented as of this encounter Miscellaneous Notes * Cerner Conversion Note - Historical ProviderMD - 04/09/2019 7:05 PM FOREST PATHOLOGIST Height and Weight, Clinical Dosing Entered On: 04/09/2019 19:05 EST Performed On: 04/09/2019 19:05 EST by MARILYN Shaw RN Height and Weight, Clinical Dosing Height Source : Stated Height Entry Format : [place] Height, Feet : 6 ft(Converted to: 183 [...] Body Mass Index : 32.5 kg/m2 (HI) [place] Body Weight : 79 kg MARILYN Shaw RN - 04/09/2019 19:05 EST documented in this encounter Plan of Treatment Not on file documented as of this encounter Visit Diagnoses Not on filedocumented in this encounter
--- OUTSIDE RECORDS SUMMARY | 2024-09-09 10:06 | XMS_ITS | Encounter Summary ---
Author Organization [employer] ([place], [place], [place], [place]) Address [address] [place] [address] Care Team Providers Care Promotional Marketing Analyst Name Role Phone Unavailable Primary Care Provider Unavailabl e Encounter Details Date Type Department Care Team (Late st Contact Info) Description 04/11/2019 Transcribed Document [facility] [place] [facility] [place] [address] ProviderSharon MD [address] [place] [address] Social History Tobacco Use Types Packs/Day Years Used Date Smoking Tobacco: Never Assessed Sex and Gender Information Value Date Recorded Sex Assigned at Not on file Legal Sex Male 6:54 PM CDT Gender Identity Not on file Sexual Orientation Not on file documented as of this encounter Miscellaneous Notes * Cerner Conversion Note - Sharon ProviderMD - 04/11/2019 10:19 AM UNIVERSITY CONTROLLER Pain Assessment Entered On: 04/15/2019 1:49 EST [...]
--- OUTSIDE RECORDS SUMMARY | 2024-09-09 10:06 | XMS_ITS | Encounter Summary ---
Author Organization [employer] ([place], [place], [place]) Address [address] [place] [address] Care Team Providers Care Blacking Wheel Tender Name Role Phone Unavailable Primary Care Provider Unavailabl e Encounter Details Date Type Department Care Team (Late st Contact Info) Description 04/11/2019 Transcribed Document [facility] [place] [facility] [place] [address] ProviderSharon MD [address] [place] [address] Social History Tobacco Use Types Packs/Day Years Used Date Smoking Tobacco: Never Assessed Sex and Gender Information Value Date Recorded Sex Assigned at Not on file Legal Sex Male 6:54 PM CDT Gender Identity Not on file Sexual Orientation Not on file documented as of this encounter Miscellaneous Notes * Cerner Conversion Note - Sharon ProviderMD - 04/11/2019 1:20 PM MARKETING SALES MANAGER Patient: RAUDEL ZEPEDA Age: 54 Years Sex: [...] Heparin 36.2 Second(s) (Low) 04/10/2019 17:28 EST documented in this encounter Plan of Treatment Not on file documented as of this encounter Visit Diagnoses Not on filedocumented in this encounter
--- OUTSIDE RECORDS SUMMARY | 2024-09-09 10:06 | XMS_ITS | Encounter Summary ---
Author Organization [employer] ([place], [place], [place]) Address [address] [place] [address] Care Team Providers Care Supervisor Data Processing Name Role Phone Unavailable Primary Care Provider Unavailabl e Encounter Details Date Type Department Care Team (Late st Contact Info) Description 04/13/2019 Transcribed Document [facility] [place] [facility] [place] [address] ProviderSharon MD [address] [place] [address] Social History Tobacco Use Types Packs/Day Years Used Date Smoking Tobacco: Never Assessed Sex and Gender Information Value Date Recorded Sex Assigned at Not on file Legal Sex Male 6:54 PM CDT Gender Identity Not on file Sexual Orientation Not on file documented as of this encounter Miscellaneous Notes * Cerner Conversion Note - Sharon Phillips MD - 04/13/2019 5:34 PM SENIOR ELECTRONICS TECHNICIAN Patient: RAUDEL ZEPEDA Age: 54 Years Sex: Male : 1965 Hardwood Floor Installer: Hardik Benavidez MD Indication: 55 yo here [...] follow-up with Dr. Mathews. Codes: SVT ablation (91130); additional SVT ablation (51211); 3D mapping (48400), LA pacing and recording (24346), intracardiac echo (92194), arterial line placement (06000), induce post IV drug (45015), vascular access with ultrasound. Electronically signed by Radha Villarreal Conversion Sustainable Communities Designer Cerner at 06/19/2022 4:28 PM CDT documented in this encounter Plan of Treatment Not on file documented as of this encounter Visit Diagnoses Not on filedocumented in this encounter
--- OUTSIDE RECORDS SUMMARY | 2024-09-09 10:06 | XMS_ITS | Encounter Summary ---
Author Organization [employer] ([place], [place], [place], [place]) Address [address] [place] [address] Care Team Providers Care Cafe Manager Name Role Phone Unavailable Primary Care Provider Unavailabl e Encounter Details Date Type Department Care Team (Late st Contact Info) Description 04/09/2019 Transcribed Document [facility] [place] [facility] [place] [address] ProviderSharon MD [address] [address] Social History Tobacco Use Types Packs/Day Years Used Date Smoking Tobacco: Never Assessed Sex and Gender Information Value Date Recorded Sex Assigned at Not on file Legal Sex Male 6:54 PM CDT Gender Identity Not on file Sexual Orientation Not on file documented as of this encounter Miscellaneous Notes * Cerner Conversion Note - Sharon ProviderMD - 04/09/2019 6:45 PM STEVEDORING SUPERVISOR Admission History, Adult Entered On: 04/10/2019 3:32 [...] 3:19 EST General Info Contact Password : [id number] Emergency Contact #1 : Gracie Chowdary Emergency Contact #1 Emergency Contact #1 Relationship : Signigicant Other Emergency Contact #2 : none Emergency Contact #2 Phone Number : none Emergency Contact #2 Relationship : none Chief Complaint : Admission from [facility] with SVT Primary Language : [place] Communication Barrier : None Luda Kay RN [...] Scale Risk Level : 25-45 Medium Risk Purdys Fall Interventions : Assistive devices within reach, [...] Source : Stated Height Entry Format : [place] Height, Feet : 6 ft(Converted to: 183 [...] Body Mass Index : 32.5 kg/m2 (HI) [place] Body Weight : 79 kg Luda Kay [...] Luda Kay RN - 04/10/2019 3:19 EST Gregory Suicide Severity Rating Scale (C-SSRS) CSSRS Past [...]
--- OUTSIDE RECORDS SUMMARY | 2024-09-09 10:06 | XMS_ITS | Encounter Summary ---
Author Organization [employer] ([place], [place], [place], [place]) Address [address] [place] [address] Care Team Providers Care Crew Scheduler Name Role Phone Unavailable Primary Care Provider Unavailabl e Encounter Details Date Type Department Care Team (Late st Contact Info) Description 04/10/2019 Transcribed Document [facility] [place] [facility] [place] [address] ProviderSharon MD [address] [place] [address] Social History Tobacco Use Types Packs/Day Years Used Date Smoking Tobacco: Never Assessed Sex and Gender Information Value Date Recorded Sex Assigned at Not on file Legal Sex Male 6:54 PM CDT Gender Identity Not on file Sexual Orientation Not on file documented as of this encounter Miscellaneous Notes * Cerner Conversion Note - Sharon Phillips MD - 04/10/2019 10:12 AM DELIVERY ARCHITECT Patient: RAUDEL ZEPEDA Age: 54 years Sex: Male : 1965 Associated Diagnoses: None Author: SHILO MONTES DE OCA MD-CAR Basic Information PCP: Director Of Manufacturing: Chief Complaint 04/09/2019 18:45 EST Admission from [facility] with SVT History of Present Illness [...] resistant so he was sent to the [facility] where he is was found to [...] influenza virus vaccine, inactivated: 0.5 mL, IntraMuscular, [id number] labetalol: 20 mg, IV Push, Q1H, PRN: [...] Daily influenza vaccine, quadrivalent 0.5 mL, IntraMuscular, [id number] levothyroxine 75 mcg tab 75 mcg 1 [...] SVT - Supraventricular tachycardia / SNOMED CT 4849588106 / Confirmed History of obstructive sleep apnea / IMO 98713840 / Confirmed, Active Problems (7) Alcohol abuse Anxiety History of obstructive sleep apnea Hypertension Hypothyroid Smoker SVT - Supraventricular tachycardia Histories No education data available. Social & Psychosocial Habits alcohol consumption and ongoing withdraw Past Medical History: Active SVT - Supraventricular tachycardia (6527062649) Family History: No family history items have [...] 23:36 EST Heart Rate, Apical [address] 04/09/2019 23:00 EST Systolic Blood Pressure 119 [...] 21:11 EST Heart Rate, Apical [address] 04/09/2019 21:00 EST Systolic Blood Pressure 151 [...] EST Height Source Stated Height Entry Format [place] Height/Length, MARTINIQUAIS (ft) 6 ft Height/Length MARTINIQUAIS 1 Inch CLINICALHEIGHT 185.42 cm Council Body Weight 79 kg Weight Source Bed scale Weight Entry Format Metric, kilograms Weight METRIC kg 111.9 kg CLINICALWEIGHT 111.9 kg Body Surface Area (BSA) 2.35 m2 Body Mass Index 32.5 kg/m2 CT 04/09/2019 18:45 EST Height Source Stated Height Entry Format [place] Height/Length, MARTINIQUAIS (ft) 6 ft Height/Length MARTINIQUAIS 1 Inch CLINICALHEIGHT 185.42 cm Council Body Weight 79 kg Weight Source Bed scale Weight Entry Format Metric, kilograms Weight METRIC kg 111.9 kg CLINICALWEIGHT 111.9 kg Body Surface Area (BSA) 2.35 m2 Body Mass Index 32.5 kg/m2 CT , Vitals Signs (last 24 hrs) Last [...] Normal range of motion. Integumentary: Warm, Dry, [place]. Neurologic: Alert, Oriented, has some tremors. Psychiatric: [...] 24 Hours) Radiology Results (Last 48 hours) [id number] -- 04/09/2019 18:47 CR Chest 1 Vw [...] 55 yo male followed by Dr. Mathews [id number] 1 of at least one echo pending [...]
--- OUTSIDE RECORDS SUMMARY | 2024-09-09 10:06 | XMS_ITS | Encounter Summary ---
Author Organization [employer] ([place], [place], [place], [place]) Address [address] [place] [address] Care Team Providers Care Preventative Maintenance Technician Name Role Phone Unavailable Primary Care Provider Unavailabl e Encounter Details Date Type Department Care Team (Late st Contact Info) Description 04/12/2019 Transcribed Document [place] Family Medicine [facility] [place] [address] ProviderSharon MD [facility] [place] [address] Social History Tobacco Use Types Packs/Day Years Used Date Smoking Tobacco: Never Assessed Sex and Gender Information Value Date Recorded Sex Assigned at Not on file Legal Sex Male 6:54 PM CDT Gender Identity Not on file Sexual Orientation Not on file documented as of this encounter Miscellaneous Notes * Cerner Conversion Note - Historical ProviderMD - 04/12/2019 12:34 PM AGRICULTURAL ENGINEERING TECHNOLOGIST Event Note Entered On: 04/12/2019 12:36 EST [...] ASHLEY BREWER RN - 04/12/2019 12:34 EST Electronically signed by Radha Villarreal Conversion Director Of Application Development Cerner at 06/19/2022 4:32 PM CDT documented in this encounter Plan of Treatment Not on file documented as of this encounter Visit Diagnoses Not on filedocumented in this encounter
--- OUTSIDE RECORDS SUMMARY | 2024-09-09 10:06 | XMS_ITS | Encounter Summary ---
Author Organization [employer] ([place], [place], [place], [place]) Address [address] [place] [address] Care Team Providers Care Ice Scraper Name Role Phone Unavailable Primary Care Provider Unavailabl e Encounter Details Date Type Department Care Team (Late st Contact Info) Description 04/13/2019 Transcribed Document [facility] [place] [address] ProviderSharon MD [address] [place] [address] Social History Tobacco Use Types Packs/Day Years Used Date Smoking Tobacco: Never Assessed Sex and Gender Information Value Date Recorded Sex Assigned at Not on file Legal Sex Male 6:54 PM CDT Gender Identity Not on file Sexual Orientation Not on file documented as of this encounter Miscellaneous Notes * Cerner Conversion Note - Sharon Phillips MD - 04/13/2019 9:08 AM WHOLESALE AND RETAIL MERCHANT Patient: RAUDEL ZEPEDA Age: 54 years Sex: [...] influenza virus vaccine, inactivated: 0.5 mL, IntraMuscular, [id number] Documented Medications Documented Metoprolol Tartrate 100 mg [...] All Problems Alcohol abuse / SNOMED CT 14607793 / Confirmed Anxiety / SNOMED CT 68028371 / Confirmed History of obstructive sleep apnea / IMO 13988904 / Confirmed Hypertension / SNOMED CT 0754843247 / Confirmed Hypothyroid / SNOMED CT 97443611 / Confirmed Smoker / SNOMED CT 800090508 / Confirmed SVT - Supraventricular tachycardia / SNOMED CT 0474871203 / Confirmed, Active Problems (7) Alcohol abuse [...] of motion, Normal strength. Integumentary: Warm, Dry, [place], Intact. Neurologic: Alert, Oriented. Psychiatric: Cooperative, Appropriate mood & affect. Results Review Telemetry department coordinator personally reviewed shows NSR 60-70's The EKG [...] 55 yo male followed by Dr. Mathews [id number] 1 of at least one echo pending [...] with EPS/ablation this afternoon. 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
--- OUTSIDE RECORDS SUMMARY | 2024-09-09 10:06 | XMS_ITS | Encounter Summary ---
Author Organization [employer] ([place], [place], [place], [place]) Address [address] [place] [address] Care Team Providers Care Waiter And Cashier Name Role Phone Unavailable Primary Care Provider Unavailabl e Encounter Details Date Type Department Care Team (Late st Contact Info) Description 04/11/2019 Transcribed Document [facility] Radiology [address] [place] [address] Jerrell Kamara MD [address] [place] [address] Social History Tobacco Use Types Packs/Day Years [...] influenza virus vaccine, inactivated: 0.5 mL, IntraMuscular, [id number] labetalol: 20 mg, IV Push, Q1H, PRN: [...] of motion, Normal strength. Integumentary: Warm, Dry, Strong, Intact. Neurologic: Alert, Oriented. Psychiatric: Cooperative, Appropriate mood & affect. Results Review Telemetry Admission Weight Todays Weight APR 11 03:58 L 133 L 97 8 / 101 3.5 H 33 0.90 \ Cardiac Markers (Current Encounter/Past 24 Hours) CK MB <1.00 ng/mL 04/10/2019 05:45 Radiology Results (Last 48 hours) [id number] -- 04/09/2019 18:47 CR Chest 1 Vw [...]
--- OUTSIDE RECORDS SUMMARY | 2024-09-09 10:06 | XMS_ITS | Encounter Summary ---
Author Organization [employer] ([place], [place], [place], [place]) Address [address] [place] [address] Care Team Providers Care Industrial Psychology Professor Name Role Phone Unavailable Primary Care Provider Unavailabl e Encounter Details Date Type Department Care Team (Late st Contact Info) Description 04/12/2019 Transcribed Document [facility] [place] [facility] [place] [address] ProviderSharon MD [facility] [place] [address] Social History Tobacco Use Types Packs/Day Years Used Date Smoking Tobacco: Never Assessed Sex and Gender Information Value Date Recorded Sex Assigned at Not on file Legal Sex Male 6:54 PM CDT Gender Identity Not on file Sexual Orientation Not on file documented as of this encounter Miscellaneous Notes * [employer]ner Conversion Note - Historical ProviderMD - 04/12/2019 5:00 AM JEWELRY SALES REPRESENTATIVE Chart Check - Review Order Profile Entered On: 04/12/2019 8:09 EST Performed On: 04/12/2019 5:00 EST by MORRO GILLIAM RN Chart Check Powerplans Initiated/Discontinued as Appropriate : Yes All Active Orders Reviewed : Yes MORRO GILLIAM RN - 04/12/2019 8:09 EST Electronically signed by Radha Villarreal Conversion Merchandise Presentation Associate Cerner at 06/19/2022 4:40 PM CDT documented in this encounter Plan of Treatment Not on file documented as of this encounter Visit Diagnoses Not on filedocumented in this encounter
--- OUTSIDE RECORDS SUMMARY | 2024-09-09 10:06 | XMS_ITS | Encounter Summary ---
Author Organization [employer] ([place], [place], [place], [place]) Address [address] [place] [address] Care Team Providers Care Automobile Racer Name Role Phone Unavailable Primary Care Provider Lilia tsang Encounter Details Date Type Department Care Team (Late st Contact Info) Description 04/12/2019 Transcribed Document [facility] [place] [facility] [place] [address] ProviderSharon MD [address] [place] [address] Social History Tobacco Use Types Packs/Day Years Used Date Smoking Tobacco: Never Assessed Sex and Gender Information Value Date Recorded Sex Assigned at Not on file Legal Sex Male 6:54 PM CDT Gender Identity Not on file Sexual Orientation Not on file documented as of this encounter Miscellaneous Notes * Cerner Conversion Note - Sharon ProviderMD - 04/12/2019 4:49 PM INSERTER OPERATOR Patient: RAUDEL ZEPEDA Age: 54 years [...] influenza virus vaccine, inactivated: 0.5 mL, IntraMuscular, [id number] Documented Medications Documented Metoprolol Tartrate 100 mg [...] History of obstructive sleep apnea / IMO 94566604 / Confirmed SVT - Supraventricular tachycardia / SNOMED CT 3400603174 / Confirmed, Active Problems (7) Alcohol abuse [...] rn Electronically signed by Radha Villarreal Conversion Residential Energy Auditor Cerner at 06/19/2022 4:29 PM CDT documented in this encounter Plan of Treatment Not on file documented as of this encounter Visit Diagnoses Not on filedocumented in this encounter
--- OUTSIDE RECORDS SUMMARY | 2024-09-09 10:06 | XMS_ITS | Encounter Summary ---
Author Organization [employer] ([place], [place], [place], [place]) Address [address] [place] [address] Care Team Providers Care Labor Mediator Name Role Phone Unavailable Primary Care Provider Unavailabl e Encounter Details Date Type Department Care Team (Late st Contact Info) Description 04/12/2019 Transcribed Document [facility] [place] [facility] [place] [address] ProviderSharon MD [address] [place] [address] Social History Tobacco Use Types Packs/Day Years Used Date Smoking Tobacco: Never Assessed Sex and Gender Information Value Date Recorded Sex Assigned at Not on file Legal Sex Male 6:54 PM CDT Gender Identity Not on file Sexual Orientation Not on file documented as of this encounter Miscellaneous Notes * Cerner Conversion Note - Sharon ProviderMD - 04/12/2019 12:02 PM PAR[employer]ALS On Going Discharge Planning Entered On: 04/12/2019 12:03 EST Performed On: 04/12/2019 12:02 EST by JUS MATAMOROS Rn-Poultry PathologistCommunity Health Consultant Progress Note Discharge Arrangements : Patient Post-Acute [...] Meeting Medical Necessity : Yes JUS MATAMOROS, Cira-Poultry Pathologist - 04/12/2019 12:02 EST Narrative Progress Note Narrative Progress Note : Anticipate pt will d/c home with S.O. when stable; OLOP consult when ready for d/c. JUS MATAMOROS, Rn-Poultry Pathologist - 04/12/2019 12:02 EST Electronically signed by Phil, [facility] Conversion Program/Music Director Cerner at 06/19/2022 4:34 PM CDT documented in this encounter Plan of Treatment Not on file documented as of this encounter Visit Diagnoses Not on filedocumented in this encounter
--- OUTSIDE RECORDS SUMMARY | 2024-09-09 10:06 | XMS_ITS | Encounter Summary ---
Author Organization [employer] ([place], [place], [place], [place]) Address [address] [place] [address] Care Team Providers Care Mobile Application Development Lead Name Role Phone Unavailable Primary Care Provider Unavailabl e Encounter Details Date Type Department Care Team (Late st Contact Info) Description 04/10/2019 Transcribed Document [facility] [place] [facility] [place] [address] ProviderSharon MD Count includes [facility] [address] Social History Tobacco Use Types Packs/Day Years Used Date Smoking Tobacco: Never Assessed Sex and Gender Information Value Date Recorded Sex Assigned at Not on file Legal Sex Male 6:54 PM CDT Gender Identity Not on file Sexual Orientation Not on file documented as of this encounter Miscellaneous Notes * [employer]ner Conversion Note - Sharon ProviderMD - 04/10/2019 12:42 PM HEAD ORTHOPEDIC TEAM PHYSICIAN UM Authorization Entered On: 04/10/2019 12:42 EST Performed On: 04/10/2019 12:42 EST by Alonso Malik Mkt Senior Bi Architect-Utilization Mgt Primary Insurance Authorization Authorization and Policy Numbers : Insurance 1 Health Plan: [employer] FED Policy Number: [id number] Authorization Number: Insurance Primary Name : Hiren [id number] Authorization Status-Primary : Awaiting callback Reference Number-Primary : [id number] Authorized Service Begin Date-Primary : 04/09/2019 EST Authorization Comments-Primary : Inpt auth requested and clinicals submitted via Availity as pt has commercial [place] plan, not Federal as listed. Historical Authorization Comments-Primary : Comment 1: Clinicals paper faxed. (Alonso Malik Mkt Senior Bi Architect-Utilization Mgt 04/10/2019 12:32) Alonso Malik Mkt Senior Bi Architect-Utilization Mgt - 04/10/2019 12:42 EST Electronically signed by [facility] Conversion Gravel Inspector Cerner at 06/19/2022 4:38 PM CDT documented in this encounter Plan of Treatment Not on file documented as of this encounter Visit Diagnoses Not on filedocumented in this encounter
--- OUTSIDE RECORDS SUMMARY | 2024-09-09 10:06 | XMS_ITS | Encounter Summary ---
Author Organization [employer] [address] ([place], [place], [place], [place]) Address [address] [place] [address] Care Team Providers Care Meat Grading Machine Operator Name Role Phone Unavailable Primary Care Provider Unavailabl e Encounter Details Date Type Department Care Team (Late st Contact Info) Description 04/12/2019 Transcribed Document [facility] [place] Family Medicine [facility] [place] [address] ProviderSharon MD [address] [place] [address] Social History Tobacco Use Types Packs/Day Years Used Date Smoking Tobacco: Never Assessed Sex and Gender Information Value Date Recorded Sex Assigned at Not on file Legal Sex Male 6:54 PM CDT Gender Identity Not on file Sexual Orientation Not on file documented as of this encounter Miscellaneous Notes * Cerner Conversion Note - Sharon Phillips MD - 04/12/2019 8:00 AM CHORE WORKER Patient: RAUDEL ZEPEDA Age: 54 years [...] influenza virus vaccine, inactivated: 0.5 mL, IntraMuscular, [id number] Documented Medications Documented Metoprolol Tartrate 100 mg [...] All Problems Alcohol abuse / SNOMED CT 68953376 / Confirmed Anxiety / SNOMED CT 29652154 / Confirmed History of obstructive sleep apnea / IMO 64223222 / Confirmed Hypertension / SNOMED CT 1329228846 / Confirmed Hypothyroid / SNOMED CT 09592124 / Confirmed Smoker / SNOMED CT 613450188 / Confirmed SVT - Supraventricular tachycardia / SNOMED CT 9679744720 / Confirmed, Active Problems (7) Alcohol abuse [...] Normal range of motion. Integumentary: Warm, Dry, [place]. Neurologic: Alert, Oriented, has some tremors. Psychiatric: Cooperative, Appropriate mood & affect. Results Review Telemetry rail detector car operator personally reviewed shows NSR over the last 24 hours The EKG shows sinus rhythm with preexcitation APR 12 04:33 L 132 L 99 7 / 90 4.1 31 0.80 \ APR 12 04:33 \ L 12.1 / 6.5 199 / L 36.5 \ No Radiology Results Found Impression and Plan IMPRESSION: 55 yo male followed by Dr. Mathews [id number] 1 of at least one echo pending [...] replacement Electronically signed by Radha Villarreal Conversion Client Technologies Analyst Cerner at 06/19/2022 4:41 PM CDT documented in this encounter Plan of Treatment Not on file documented as of this encounter Visit Diagnoses Not on filedocumented in this encounter
--- OUTSIDE RECORDS SUMMARY | 2024-09-09 10:06 | XMS_ITS | Encounter Summary ---
Author Organization [employer] ([place], [place], [place], [place]) Address [address] [place] [address] Care Team Providers Care Price Analyst Name Role Phone Unavailable Primary Care Provider Unavailabl e Encounter Details Date Type Department Care Team (Late st Contact Info) Description 04/12/2019 Transcribed Document [facility] [place] Family Medicine [facility] [place] [address] ProviderSharon MD [address] [place] [id number] Social History Tobacco Use Types Packs/Day Years Used Date Smoking Tobacco: Never Assessed Sex and Gender Information Value Date Recorded Sex Assigned at Not on file Legal Sex Male 6:54 PM CDT Gender Identity Not on file Sexual Orientation Not on file documented as of this encounter Miscellaneous Notes * Cerner Conversion Note - Sharon ProviderMD - 04/12/2019 7:59 PM CDL B DRIVER DATE OF SERVICE: 04/12/2019 LEXISCAN MYOVIEW PERFUSION [...] Normal left ventricular systolic function post stress. /[id number] Norbert Cardenas MD SSL/AQ / SSL / MODL /[id number] CC: Alonso Melendez Dr. Electronically signed by [facility], [facility] Conversion Weed Cooking Operator Cerner at 06/19/2022 4:41 PM CDT documented in this encounter Plan of Treatment Not on file documented as of this encounter Visit Diagnoses Not on filedocumented in this encounter
--- OUTSIDE RECORDS SUMMARY | 2024-09-09 10:06 | XMS_ITS | Encounter Summary ---
Author Organization [employer] ([place], [place], [place], [place]) Address [address] [place] [address] Care Team Providers Care Tractor Mechanic Helper Name Role Phone Unavailable Primary Care Provider Unavailabl e Encounter Details Date Type Department Care Team (Late st Contact Info) Description 04/12/2019 Transcribed Document [facility] [place] Family Medicine [facility] [place] [address] ProviderSharon MD [address] [place] [address] Social History Tobacco Use Types Packs/Day Years Used Date Smoking Tobacco: Never Assessed Sex and Gender Information Value Date Recorded Sex Assigned at Not on file Legal Sex Male 6:54 PM CDT Gender Identity Not on file Sexual Orientation Not on file documented as of this encounter Miscellaneous Notes * Cerner Conversion Note - Sharon ProviderMD - 04/12/2019 11:58 AM WAFFLE 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 Initial Discharge Planning Entered On: 04/12/2019 12:02 EST Performed On: 04/12/2019 11:58 EST by JUS MATAMOROS Rn-Auto Motor Mechanic Initial Assessment I Previously Documented Living Environment [...] Listed? : Yes Medical Durable Power of Construction Plant Operator Name : None Legal Guardian : No Is Guardianship Needed : No JUS MATAMOROS Rn-Auto Motor Mechanic - 04/12/2019 11:58 EST Initial Assessment II Sensory and Motor Deficits : Weakness Current Home Treatments and Equipment : None AMTAMOROS, JUS, Rn-Auto Motor Mechanic - 04/12/2019 11:58 EST Discharge Needs I Anticipated Discharge Date : 04/15/2019 EST Anticipated Discharge To, CM : Home with family care, Home with home health, [facility] facility Current Home Treatment/Equipment : Current Home Treatment/Equipment No qualifying data available. Documentation Status Complete : Yes JUS MATAMOROS Rn-Auto Motor Mechanic - 04/12/2019 11:58 EST Discharge Needs II Professional Skilled Services : Professional Skilled Services No qualifying data available. Needs Assistance with Transportation : No Discharge Options Discussed with Patient : Home Health, Substance abuse/mental health JUS MATAMOROS Rn-Auto Motor Mechanic - 04/12/2019 11:58 EST Narrative Note Narrative Note : Day 1 - Chest Pain Hx ETOH Abuse, Htn, CHF Low Readmission Risk Cardiology Pt to have Lexiscan today; bedside RN Virgil states she needs consent from NO. CM spoke with pt's Pillo Chowdary and explained without HCS/AD - need to obtain consent from NOK - she identifies pt's two daughters Kaye Leos [phone]; Audelia Richardson [phone]. Informed Virgil of numbers to contact [facility] for consent. Met pt - awake in bed; pt states his PCP is Kev Melendez in [place]; that he requires assistance at home with his ADL's from Pillo Chowdary. Pt has no hx of hhc or STR - has had inpatient ETOH Rehab at the [facility] in [place]. Anticipate pt will need [facility] referral when medically stable for discharge. JUS MATAMOROS Rn-Auto Motor Mechanic - 04/12/2019 11:58 EST documented in this encounter Plan of Treatment Not on file documented as of this encounter Visit Diagnoses Not on filedocumented in this encounter
--- OUTSIDE RECORDS SUMMARY | 2024-09-09 10:06 | XMS_ITS | Encounter Summary ---
Author Organization [employer] ([place], [place], [place], [place]) Address [address] [place] [address] Care Team Providers Care Circular Saw Filer Name Role Phone Unavailable Primary Care Provider Unavailabl e Encounter Details Date Type Department Care Team (Late st Contact Info) Description 04/09/2019 Transcribed Document [facility] [place] [facility] [place] [address] ProviderSharon MD [address] [place] [id number] Social History Tobacco Use Types Packs/Day Years Used Date Smoking Tobacco: Never Assessed Sex and Gender Information Value Date Recorded Sex Assigned at Not on file Legal Sex Male 6:54 PM CDT Gender Identity Not on file Sexual Orientation Not on file documented as of this encounter Miscellaneous Notes * Cerner Conversion Note - Sharon ProviderMD - 04/09/2019 7:55 PM SURFBOARD DESIGNER Patient: RAUDEL ZEPEDA Age: 54 years Sex: Male : 1965 Associated Diagnoses: None Author: IRVING HERMAN APRN Basic Information PCP: Head Housekeeper: Bisi Chief Complaint recurrent SVT History of Present Illness Mr. Zepeda is a 54-year-old male with past medical history of SVT which he reports having intermittently his entire life and has had an ablation in the past. He does not know who did his ablation although he is states he had it done here at [facility], however there are no available records of this procedure here. He reports having intermittent SVT for the last 2 months, for which he went to his primary care for 1 week ago. His primary care referred him back to Dr. Mathews who is his primary extra hand. When he arrived at Dr. Mathews's office [...] A call was then placed to our extra hand director oncology who recommended amiodarone infusion and transfer for [...] Medical History: Active SVT - Supraventricular tachycardia ([id number]) Family History: No family history items have [...] of motion, Normal strength. Integumentary: Warm, Dry, [place]ing, Intact. Neurologic: Alert, Oriented. Psychiatric: Cooperative, Appropriate [...] EP consult in AM Electronically signed by Julien Villarreal Conversion Dry Cell Assembly Supervisor Cerner at 06/19/2022 4:31 PM CDT documented in this encounter Plan of Treatment Not on file documented as of this encounter Visit Diagnoses Not on filedocumented in this encounter
--- OUTSIDE RECORDS SUMMARY | 2024-09-09 10:06 | XMS_ITS | Encounter Summary ---
Author Organization [facility] Address [address] [place] [address] Care Team Providers Care Senior Materials Analyst Name Role Phone Casey Felix MD Primary Care Provider [phone] Dotty Askew MD Unavailable [phone] Encounter Details Date Type Department Care Team (Late st Contact Info) Description 07/14/2024 Telephone [facility] [address] [facility], [address] [place] [address] [place] [address] Social History Tobacco Use Types Packs/Day Years [...] Never 05/13/2024 How often do you attend voodoo or muslim serv ices? Never 05/13/2024 Do you belong to any clubs o r organizations such as voodoo groups, unions, fraternal or athletic groups, or [...] and heating? Patient unable to answer 05/13/2024 [facility] - [...] any time in the past 12 m [facility], were you homeless or [...] drink first t olivia in the morning (EYE-COMMUNITY ORGANIZATION DIRECTOR) to steady your nerves or to get [...] Clinic, left VM with call back number [phone]. documented in this encounter Plan of Treatment Upcoming Encounters Date Type Department Care Team (Late st Contact Info) Description 10/07/2024 3:00 PM EDT Office Visit [facility] [address] [place] [address] Jakub Malave MD [address] [place] [phone] documented as of this encounter Visit Diagnoses Not on filedocumented in this encounter Additional Health Concerns Assessment Noted Time A fall risk assessment has been complete d for the patient 09/05/2020 11:56 AM EDT A Body Mass Index follow-up plan has been documented for the patient 06/01/2024 11:16 AM EDT documented as of this encounter Care Teams Senior Materials Analyst Relationship Specialty Start Date End Date Casey Felix MD [address] [place] [address] PCP - General 09/05/20 Dotty Askew MD [address] [place] [address] Consulting Physician Pediatric Cardiology 09/05/20 documented as of this encounter
--- OUTSIDE RECORDS SUMMARY | 2024-09-09 10:06 | XMS_ITS | Encounter Summary ---
Author Organization [employer] ([place], [place], [place], [place]) Address [address] [place] [address] Care Team Providers Care Magnetic Tester Name Role Phone Unavailable Primary Care Provider Unavailabl e Encounter Details Date Type Department Care Team (Late st Contact Info) Description 04/09/2019 Transcribed Document [facility] Family Medicine [place] [address] ProviderSharon MD [address] [place] [address] Social History Tobacco Use Types Packs/Day Years Used Date Smoking Tobacco: Never Assessed Sex and Gender Information Value Date Recorded Sex Assigned at Not on file Legal Sex Male 6:54 PM CDT Gender Identity Not on file Sexual Orientation Not on file documented as of this encounter Miscellaneous Notes * Cerner Conversion Note - Historical ProviderMD - 04/09/2019 7:14 PM INTERNATIONAL OPERATIONS MANAGER Pain Assessment Entered On: 04/12/2019 8:07 EST [...]
--- OUTSIDE RECORDS SUMMARY | 2024-09-09 10:06 | XMS_ITS | Encounter Summary ---
Author Organization [employer] ([place], [place], [place], [place]) Address [address] [place] [address] Care Team Providers Care Cyanide Case Hardener Name Role Phone Unavailable Primary Care Provider Unavailabl e Encounter Details Date Type Department Care Team (Late st Contact Info) Description 04/11/2019 Transcribed Document [facility] [place] [facility] [place] [address] ProviderSharon [place] [address] Social History Tobacco Use Types Packs/Day Years Used Date Smoking Tobacco: Never Assessed Sex and Gender Information Value Date Recorded Sex Assigned at Not on file Legal Sex Male 6:54 PM CDT Gender Identity Not on file Sexual Orientation Not on file documented as of this encounter Miscellaneous Notes * Cerner Conversion Note - Historical ProviderMD - 04/11/2019 5:00 PM JAVA DEVELOPMENT TEAM LEAD Chart Check - Review Order Profile Entered [...]
--- OUTSIDE RECORDS SUMMARY | 2024-09-09 10:06 | XMS_ITS | Encounter Summary ---
Author Organization [employer] ([place], [place], [place], [place]) Address [address] [place] [address] Care Team Providers Care Head Of Sales And Marketing Name Role Phone Unavailable Primary Care Provider Unavailabl e Encounter Details Date Type Department Care Team (Late st Contact Info) Description 04/10/2019 Transcribed Document [facility] [facility] [place] [address] ProviderSharon MD [address] [place] [address] Social History Tobacco Use Types Packs/Day Years Used Date Smoking Tobacco: Never Assessed Sex and Gender Information Value Date Recorded Sex Assigned at Not on file Legal Sex Male 6:54 PM CDT Gender Identity Not on file Sexual Orientation Not on file documented as of this encounter Miscellaneous Notes * Cerner Conversion Note - Sharon ProviderMD - 04/10/2019 9:01 PM LOCOMOTIVE SWITCH OPERATOR Pain Assessment Entered On: 04/11/2019 9:37 [...]
--- OUTSIDE RECORDS SUMMARY | 2024-09-09 10:06 | XMS_ITS | Encounter Summary ---
Author Organization [employer] ([place], [place], [place], [place]) Address [address] [place] [address] Care Team Providers Care Poultry Inseminator Name Role Phone Unavailable Primary Care Provider Unavailabl e Encounter Details Date Type Department Care Team (Late st Contact Info) Description 04/12/2019 Transcribed Document [facility] [place] [facility] [place] [address] ProviderSharon MD [facility] [place], [place] [address] Social History Tobacco Use Types Packs/Day Years Used Date Smoking Tobacco: Never Assessed Sex and Gender Information Value Date Recorded Sex Assigned at Not on file Legal Sex Male 6:54 PM CDT Gender Identity Not on file Sexual Orientation Not on file documented as of this encounter Miscellaneous Notes * Cerner Conversion Note - Historical ProviderMD - 04/12/2019 2:27 PM SUPERVISOR BEET END Spiritual Care Short Form Entered On: 04/12/2019 15:58 EST Performed On: 04/12/2019 14:27 EST by CHRISTINE GUTHRIE General Information, Spiritual Care Spiritual Care Referred by : Websphere Commerce Architect initiated Reason for Visit : Initial Ministry Provided to : Patient Intervention/Comment/Summary Points : Provided pre-surgery visit and prayer. CHRISTINE GUTHRIE - 04/12/2019 15:57 EST documented in this encounter Plan of Treatment Not on file documented as of this encounter Visit Diagnoses Not on filedocumented in this encounter
--- OUTSIDE RECORDS SUMMARY | 2024-09-09 10:06 | XMS_ITS | Encounter Summary ---
Author Organization [employer] ([place], [place], [place], [place]) Address [address] [place] [address] Care Team Providers Care Farmer Tree Fruit And Nut Crops Name Role Phone Unavailable Primary Care Provider Unavailabl e Encounter Details Date Type Department Care Team (Late st Contact Info) Description 04/10/2019 Transcribed Document [facility] [place] Family Medicine [facility] [place] [address] ProviderSharon MD [facility] [place] [address] Social History Tobacco Use Types Packs/Day Years Used Date Smoking Tobacco: Never Assessed Sex and Gender Information Value Date Recorded Sex Assigned at Not on file Legal Sex Male 6:54 PM CDT Gender Identity Not on file Sexual Orientation Not on file documented as of this encounter Miscellaneous Notes * Cerner Conversion Note - Historical ProviderMD - 04/10/2019 5:00 PM CAPITAL CAMPAIGN FUNDRAISER Chart Check - Review Order Profile Entered [...]
[2024-09-09 10:13] LABS: Lactic Acid Follow up (RFLX 2) 1.7 mmol/L (0.7-2.1)
[2024-09-09 14:48] LABS: Hematocrit 30.5 % (42.0-52.0); Hemoglobin 9.7 g/dL (14.1-18.0)
[2024-09-09 15:13] LABS: Troponin I 0.02 ng/ml (0.00-0.034)
[2024-09-09] MEDS: THIAMINE 100MG TABLET 400 MG PO ×2 (15:48→20:24)
[2024-09-09] MEDS: BUMETANIDE 1MG/4ML VIAL 2 MG IV (15:49)
--- NOTE | 2024-09-09 17:38 | PC.NURSE ---
PT IS RESTING IN BED. ALERT AND ORIENTED X4. PT HAS BEEN DROWSY AND LETHARGIC T/O THE SHIFT HOWEVER HAS ANSWERED QUESTIONS AND FOLLOWS COMMANDS. LUNG SOUNDS DIMINISHED WITH BILATERAL CRACKLES. GENERALIZED 3-4+ EDEMA NOTED. ABDOMEN FIRM WITH RIGHT SIDED TENDERNESS NOTED. REFUSED TO BE TURNED AND REPOSITIONED. O2 SATURATION HAS MAINTAINED 93-96% ON 2 L NC. AFIB ON TELEMETRY. UNCONTROLLED HR THIS MORNING UNTIL AFTER MORNING MEDS. HR MAINTAINING 90-115. WILL CONTINUE TO MONITOR.
[2024-09-09 18:32] LABS: Adenovirus F 40/41, stool Not Detected (NotDetected); Cyclospora Cayetanesis Not Detected (NotDetected); Plesimonas Shigalloides, PCR Not Detected (NotDetected); Salmonella, PCR Not Detected (NotDetected); Shiga-like toxin E coli Not Detected (NotDetected); Shigella Enterovasive E coli Not Detected (NotDetected); Vibrio, PCR Not Detected (NotDetected); Yersinia Entercolitica, PCR Not Detected (NotDetected)
[2024-09-09 19:29] LABS: Hematocrit 28.2 % (42.0-52.0); Hemoglobin 9.1 g/dL (14.1-18.0)
--- NOTE | 2024-09-09 20:20 | PC.NURSE ---
notified hospitalist joss macias of positive stool - cdif
[2024-09-09 20:27] LABS: Clostridium Difficile A/B, PCR Detected (NotDetected)
--- NOTE | 2024-09-09 20:35 | PC.NURSE ---
This SRNA and SRNA Suzie notified RN Donya of blood pressure reading and also that O2 reading wasn't able to be obtained after multiple attempts, however pt is breathing.
[2024-09-09] MEDS: VANCOMYCIN HCL 50MG/ML 150ML KIT 125 MG PO (21:47)
[2024-09-10] VITALS (11 sets, daily range): BP systolic 99–119; BP diastolic 68–83; PULSE 83–122; RESP 13–30; TEMP 36.8–37; O2SAT 90–100; BMI 37.0
[2024-09-10] MEDS: PIPERCILLIN/TAZO 3.375 GM in 0.9 % SODIUM CHLORIDE 50 ML IV ×2 (00:30→08:04)
[2024-09-10] MEDS: THIAMINE 100MG TABLET 400 MG PO ×3 (04:47→20:49)
--- NOTE | 2024-09-10 04:52 | PC.NURSE ---
patient has floated tonight between 2-6L NC - increased oxygen requirements when patient is asleep r/t mouth breathing, desat with exertion and rolling in the bed during changes and repositioning. patient educated to take good breaths thru nose vs mouth. patient has currently been weaned to 2L NC and is awake and maintaining at 90% + CDIFF and on contact enteric precautions. 1700ml fluid restriction and request fluids frequently - educated on restrictions and that can't have more than 1700ml. 3/4+ pitting edema from the waist/trunk down, including scrotum. patient has had a PW tonight to monitor UOP. several loose BM's. Patient is frequently on the call light and requires several interventions t/o the shift. CB within reach and BA on.
[2024-09-10 08:43] LABS: Hematocrit 28.3 % (42.0-52.0); Hemoglobin 9.0 g/dL (14.1-18.0); Immature Granulocytes % 0.4 %; Mean Corpuscular HGB Conc 31.8 g/dL (31.8-35.4); Mean Corpuscular Hemoglobin 28.0 pg (27.0-31.2); Mean Corpuscular Volume 87.9 fl (80-94); Nucleated Red Blood Cells % 0.7 %; Red Blood Count 3.22 M/mm3 (4.60-6.20); Red Cell Distribution Width-SD 72.3 fL; White Blood Count 7.2 K/mm3 (4.8-10.8)
[2024-09-10 09:19] LABS: Platelet Count 102 K/mm3 (142-424)
[2024-09-10] MEDS: BUMETANIDE 1MG/4ML VIAL 2 MG IV ×2 (09:20→15:32)
[2024-09-10] MEDS: dilTIAZem HCL 180MG CAP.ER.24H 180 MG PO (09:21)
[2024-09-10] MEDS: FOLIC ACID 1MG TABLET 1 MG PO (09:21)
[2024-09-10] MEDS: SPIRONOLACTONE 25MG TABLET 25 MG PO (09:22)
[2024-09-10] MEDS: guaiFENesin 600 MG TAB.ER.12H 1200 MG PO ×2 (09:22→20:49)
[2024-09-10] MEDS: METOPROLOL SUCCINATE XL 100MG TABLET 100 MG PO (09:22)
[2024-09-10 09:59] LABS: Alanine Aminotransferase 16 U/L (12-78); Albumin Level 2.5 g/dl (3.5-5.0); Albumin/Globulin Ratio 0.8 (1.1-1.8); Alkaline Phosphatase 297 U/L (38-126); Anion Gap 12.5 mEq/L (5-15); Aspartate Amino Transferase 46 U/L (17-59); Bilirubin,Total 1.8 mg/dl (0.2-1.3); Blood Urea Nitrogen 10 mg/dl (9-20); Calcium 7.3 mg/dl (8.4-10.2); Carbon Dioxide 24 mmol/L (22.0-30.0); Chloride 100 mmol/L (98-107); Creatinine Clearance Estimated 107 mL/min (50-200); Creatinine,Serum 1.30 mg/dl (0.66-1.25); Estimated Glomerular Filt Rate 57 ml/min (>60); GFR (African American) 68 ML/MIN (>60); Globulin 3.1 g/dL (1.3-3.2); Glucose 88 mg/dl (74-100); Potassium 3.5 mmoL/L (3.5-5.1); Sodium 133 mmol/L (136-145); Total Protein,Serum 5.6 g/dl (6.3-8.2)
[2024-09-10 10:09] LABS: Magnesium 0.8 mg/dl (1.6-2.3)
[2024-09-10] MEDS: VANCOMYCIN HCL 50MG/ML 150ML KIT 125 MG PO ×4 (10:31→20:49)
--- NOTE | 2024-09-10 11:17 | US_ITS ---
FINAL REPORT CLINICAL HISTORY: Large swelling COMPARISON: 10/09/2021 FINDINGS: SCROTAL ULTRASOUND Testes have a homogeneous architecture. No masses are seen. There is normal blood flow to the right testicle. The left testicle is difficult to assess secondary to body habitus. There is a large right hydrocele, similar to prior. Moderate left hydrocele has increased in size since prior. No significant fluid collections are present. Epididymal structures are unremarkable. IMPRESSION: No evidence of testicular mass. No evidence of right sided torsion. Nondiagnostic evaluation of blood to the left testicle. Stable large right hydrocele with enlarging moderate left hydrocele. Reviewed, Interpreted and Dictated by Yara Hernandez MD Transcribed by Joan Bliss Authenticated and [facility]
[2024-09-10] MEDS: MAGNESIUM SULFATE IN WATER 2 GM/50 ML PIGGYBACK IV ×3 (12:31→15:32)
--- NOTE | 2024-09-10 21:56 | P.PN_ITS ---
Subjective *Date: 09/10/24 *Time: 21:56 Interval history: Patient is doing well, feeling better. Continue thiamine for Warnicke's encephalopathy. Increased Bumex to 2 mg twice daily, spironolactone 50 mg. Diuresing well. Open to placement after extensive discussion. Continue vancomycin for C. difficile. Exam Data for Last 24 hours Vital signs and Labs for Last 24 Hours: Temp Pulse Resp BP Pulse Ox O2 Del Method O2 Flow Rate 98.3 F 116 H 22 105/71 L 99 Nasal Cannula 2 09/10/24 19:51 09/10/24 19:51 09/10/24 19:51 09/10/24 19:51 09/10/24 19:51 09/10/24 19:51 09/10/24 19:51 Laboratory Results - last 24 hr 09/10/24 08:30: WBC 7.2, RBC 3.22 L, Hgb 9.0 L, Hct 28.3 L, MCV 87.9, MCH 28.0, MCHC 31.8, RDW 23.6 H, Plt Count 102 L D, MPV 11.4 H, Neut % (Auto) 68.1, Lymph % (Auto) 17.1, [place] % (Auto) 10.8 H, Eos % (Auto) 1.9, Baso % (Auto) 1.7, Neut # (Auto) 4.9, Lymph # (Auto) 1.2, [place] # (Auto) 0.8, Eos # (Auto) 0.1, Baso # (Auto) 0.1, Sodium 133 L, Potassium 3.5, Chloride 100, Carbon Dioxide 24, Anion Gap 12.5, BUN 10, Creatinine 1.30 H, Estimated Creat Clear 107, Estimated GFR 57 L, Est GFR ( Amer) 68, Glucose 88, Calcium 7.3 L, Magnesium 0.8 L D, Total Bilirubin 1.8 H, AST 46, ALT 16, Alkaline Phosphatase 297 H, Total Protein 5.6 L, Albumin 2.5 L D, Globulin 3.1, Albumin/Globulin Ratio 0.8 L I & O for Last 24 hours: Intake & Output 09/07/24 09/08/24 09/09/24 09/10/24 23:59 23:59 23:59 23:59 Intake Total 1070 / 1230 1410 / 1410 Output Total 1100 / 1100 3300 / 3300 Balance -30 / 130 -1890 / -1890 Weight 122.924 kg 123.944 kg Microbiology Reports for the Last 24 Hours: Microbiology 09/09/24 03:23 Blood Blood Culture - Preliminary NO GROWTH AFTER 24 HOURS 09/09/24 02:50 Blood Blood Culture - Preliminary NO GROWTH AFTER 24 HOURS Assessment and Plan *Assessment and plan (1) Acute on chronic heart failure: Status: Acute Category: Medical Code(s): I50.9 - Heart failure, unspecified Plan: Echo 03/19/2024: The left ventricle is normal in size. There is increased LV wall thickness. There is normal LV systolic function. The septum is asynchronous. No regional wall motion abnormalities are noted. LVEF is 50- 55%.The right ventricle is severely dilated. There is severe reduction in RV systolic function. Chest x-ray per my review negative for acute findings BNP on admission 8640 Troponin 0.02 on admission Patient is prescribed Bumex 1 mg daily Start Bumex 1 mg IV twice daily Started spironolactone 25 mg daily per last med rec Monitor daily weights Strict I's and O's Fluid restriction 1200 mL daily (2) Atrial fibrillation with RVR: Status: Acute Category: Medical Code(s): I48.91 - Unspecified atrial fibrillation Plan: EKG reviewed A-fib with RVR, HR 151 Patient receives Cardizem 20 mg IV x 2 in the ER, heart rate on admission 126 Nursing staff verifying home medications with patient's pharmacy because he is unaware of what he takes Started diltiazem 180 mg p.o. daily, metoprolol 100 mg daily per last med rec Monitor telemetry (3) Hypoxic respiratory failure: Status: Acute Category: Medical Code(s): J96.91 - Respiratory failure, unspecified with hypoxia Plan: Continue supplemental oxygen to maintain SpO2 88 to 92% in the setting of COPD and wean as tolerated Xopenex 0.63 mg 3 times daily Vital signs every 4 hours (4) Bloody diarrhea: Status: Acute Category: Medical Code(s): R19.7 - Diarrhea, unspecified Plan: Diarrhea panel pending Monitor H&H every 4 hours Monitor vitals every 4 hours (5) Enteritis: Status: Acute Category: Medical Code(s): K52.9 - Noninfective gastroenteritis and colitis, unspecified Plan: CT abdomen and pelvis per my review negative for active hemorrhage into the bowel. Findings suggest enteritis. Blood cultures pending, follow results and adjust antibiotics if indicated Zosyn 3.375 g every 6 hours (6) Anemia: Status: Acute Category: Medical Code(s): D64.9 - Anemia, unspecified Plan: H&H every 4 hours Hemoglobin 9.7 on admission. Baseline ranges from 9.5-10.2 Consider GI/surgical consult if hemoglobin trends down (7) Noncompliance with medication regimen: Status: Acute Category: Medical Code(s): Z91.148 - Patient's other noncompliance with medication regimen for other reason Plan: Strongly encourage medication compliance due to comorbidities (8) Alcohol abuse: Status: Acute Category: Social Hx Code(s): F10.10 - Alcohol abuse, uncomplicated Plan: EtOH 234 Patient reports he has cut down from 1/5 of alcohol to a pint of [place] Monitor for signs and symptoms of alcohol withdrawal Librium 25 mg 3 times daily and Ativan 1 mg every 4 hours as needed for alcohol withdrawal Seizure precautions (9) Tobacco use: Status: Acute Category: Social Hx Code(s): Z72.0 - Tobacco use Plan: Pack-a-day smoker Order nicotine gum Patient reports allergy to nicotine patch adhesive (10) COPD (chronic obstructive pulmonary disease): Status: Chronic Qualifiers: COPD type: unspecified COPD Qualified Code(s): J44.9 - Chronic obstructive pulmonary disease, unspecified Category: Medical Code(s): J44.9 - Chronic obstructive pulmonary disease, unspecified Plan: Continue supplemental oxygen to maintain SpO2 88 to 92% in the setting of COPD and wean as tolerated Xopenex 0.63 mg 3 times daily (11) Hypothyroidism: Status: Acute Category: Medical Code(s): E03.9 - Hypothyroidism, unspecified Plan: Restart levothyroxine when dosage verified by patient's pharmacy
[2024-09-11] VITALS (11 sets, daily range): BP systolic 96–125; BP diastolic 53–84; PULSE 90–130; RESP 18–24; TEMP 36.7–36.9; O2SAT 94–99; BMI 35.3; BMI 34.7
[2024-09-11] MEDS: THIAMINE 100MG TABLET 400 MG PO ×3 (04:23→21:42)
--- NOTE | 2024-09-11 07:50 | PC.NURSE ---
Urine culture results forwarded to hospitalist.
[2024-09-11] MEDS: BUMETANIDE 1MG/4ML VIAL 2 MG IV ×2 (10:11→17:06)
[2024-09-11] MEDS: FOLIC ACID 1MG TABLET 1 MG PO (10:12)
[2024-09-11] MEDS: dilTIAZem HCL 180MG CAP.ER.24H 180 MG PO (10:12)
[2024-09-11] MEDS: SPIRONOLACTONE 25MG TABLET 25 MG PO (10:12)
[2024-09-11] MEDS: guaiFENesin 600 MG TAB.ER.12H 1200 MG PO ×2 (10:12→21:42)
[2024-09-11] MEDS: METOPROLOL SUCCINATE XL 100MG TABLET 100 MG PO (10:12)
[2024-09-11] MEDS: VANCOMYCIN HCL 50MG/ML 150ML KIT 125 MG PO ×4 (10:13→21:41)
[2024-09-11] MEDS: HYDROCODONE/APAP 5/325 MG TABLET 1 TAB PO (17:24)
--- NOTE | 2024-09-11 17:52 | PC.NURSE ---
pt is A&Ox4. pt is on a 1700 mL fluid restriction. he has been on 2L NC. His lung sounds are diminished throughout. we have been diuresing him throughout the shift. Bilateral extremities have 2+ pitting edema. scrotal area is very swollen and red. he is in contact precautions for c diff. call light is within reach.
--- NOTE | 2024-09-11 22:01 | P.PN_ITS ---
Subjective *Date: 09/11/24 *Time: 22:01 Exam Data for Last 24 hours Vital signs and Labs for Last 24 Hours: Temp Pulse Resp BP Pulse Ox O2 Del Method O2 Flow Rate 98.3 F 90 20 117/58 L 98 Nasal Cannula 2 09/11/24 20:00 09/11/24 20:20 09/11/24 20:00 09/11/24 20:00 09/11/24 20:00 09/11/24 20:21 09/11/24 20:21 I & O for Last 24 hours: Intake & Output 09/08/24 09/09/24 09/10/24 09/11/24 23:59 23:59 23:59 23:59 Intake Total 1070 / 1230 1410 / 1770 2100 / 2100 Output Total 1100 / 1100 3300 / 3750 3100 / 3100 Balance -30 / 130 -1890 / -1980 -1000 / -1000 Weight 122.924 kg 123.944 kg 116.176 kg Microbiology Reports for the Last 24 Hours: Microbiology 09/09/24 05:20 Urine,Clean Catch Urine Culture - Final Multiple organisms, suggests contamination. 09/09/24 03:23 Blood Blood Culture - Preliminary NO GROWTH AFTER 48 HOURS 09/09/24 02:50 Blood Blood Culture - Preliminary NO GROWTH AFTER 48 HOURS Assessment and Plan *Assessment and plan (1) Acute on chronic heart failure: Status: Acute Category: Medical Code(s): I50.9 - Heart failure, unspecified Plan: Echo 03/19/2024: The left ventricle is normal in size. There is increased LV wall thickness. There is normal LV systolic function. The septum is asynchronous. No regional wall motion abnormalities are noted. LVEF is 50- 55%.The right ventricle is severely dilated. There is severe reduction in RV systolic function. Chest x-ray per my review negative for acute findings BNP on admission 8640 Troponin 0.02 on admission Patient is prescribed Bumex 1 mg daily Start Bumex 1 mg IV twice daily Started spironolactone 25 mg daily per last med rec Monitor daily weights Strict I's and O's Fluid restriction 1200 mL daily (2) Atrial fibrillation with RVR: Status: Acute Category: Medical Code(s): I48.91 - Unspecified atrial fibrillation Plan: EKG reviewed A-fib with RVR, HR 151 Patient receives Cardizem 20 mg IV x 2 in the ER, heart rate on admission 126 Nursing staff verifying home medications with patient's pharmacy because he is unaware of what he takes Started diltiazem 180 mg p.o. daily, metoprolol 100 mg daily per last med rec Monitor telemetry (3) Hypoxic respiratory failure: Status: Acute Category: Medical Code(s): J96.91 - Respiratory failure, unspecified with hypoxia Plan: Continue supplemental oxygen to maintain SpO2 88 to 92% in the setting of COPD and wean as tolerated Xopenex 0.63 mg 3 times daily Vital signs every 4 hours (4) Bloody diarrhea: Status: Acute Category: Medical Code(s): R19.7 - Diarrhea, unspecified Plan: Diarrhea panel pending Monitor H&H every 4 hours Monitor vitals every 4 hours (5) Enteritis: Status: Acute Category: Medical Code(s): K52.9 - Noninfective gastroenteritis and colitis, unspecified Plan: CT abdomen and pelvis per my review negative for active hemorrhage into the bowel. Findings suggest enteritis. Blood cultures pending, follow results and adjust antibiotics if indicated Zosyn 3.375 g every 6 hours (6) Anemia: Status: Acute Category: Medical Code(s): D64.9 - Anemia, unspecified Plan: H&H every 4 hours Hemoglobin 9.7 on admission. Baseline ranges from 9.5-10.2 Consider GI/surgical consult if hemoglobin trends down (7) Noncompliance with medication regimen: Status: Acute Category: Medical Code(s): Z91.148 - Patient's other noncompliance with medication regimen for other reason Plan: Strongly encourage medication compliance due to comorbidities (8) Alcohol abuse: Status: Acute Category: Social Hx Code(s): F10.10 - Alcohol abuse, uncomplicated Plan: EtOH 234 Patient reports he has cut down from 1/5 of alcohol to a pint of [place] Monitor for signs and symptoms of alcohol withdrawal Librium 25 mg 3 times daily and Ativan 1 mg every 4 hours as needed for alcohol withdrawal Seizure precautions (9) Tobacco use: Status: Acute Category: Social Hx Code(s): Z72.0 - Tobacco use Plan: Pack-a-day smoker Order nicotine gum Patient reports allergy to nicotine patch adhesive (10) COPD (chronic obstructive pulmonary disease): Status: Chronic Qualifiers: COPD type: unspecified COPD Qualified Code(s): J44.9 - Chronic obstructive pulmonary disease, unspecified Category: Medical Code(s): J44.9 - Chronic obstructive pulmonary disease, unspecified Plan: Continue supplemental oxygen to maintain SpO2 88 to 92% in the setting of COPD and wean as tolerated Xopenex 0.63 mg 3 times daily (11) Hypothyroidism: Status: Acute Category: Medical Code(s): E03.9 - Hypothyroidism, unspecified Plan: Restart levothyroxine when dosage verified by patient's pharmacy Plan Patient's mentation is improving with thiamine, though a little more confused today. Continue diuresis with IV Bumex 2 mg twice daily. Net -2920 so far. No significant alcohol withdrawal symptoms. Continue vancomycin for C. difficile. Abdominal pain improving.
[2024-09-11] MEDS: OLANZapine 5 MG ODT TABLET SL (22:48)
[2024-09-12] VITALS (11 sets, daily range): BP systolic 87–117; BP diastolic 52–68; PULSE 74–100; RESP 15–22; TEMP 36.6–37.2; O2SAT 91–100; BMI 34.8
[2024-09-12] MEDS: THIAMINE 100MG TABLET 400 MG PO ×3 (05:39→21:01)
[2024-09-12 05:49] LABS: Adenovirus,PCR Not Detected (NotDetected); Chlamydophila Pneumoniae, PCR Not Detected (NotDetected); Coronavirus 19, PCR Not Detected (NotDetected); Coronovirus HKU1,PCR Not Detected (NotDetected); Influenza A, PCR Not Detected (NotDetected); Influenza AH1, 2009 Not Detected (NotDetected); Influenza AH1, PCR Not Detected (NotDetected); Influenza AH3,PCR Not Detected (NotDetected); Influenza B, PCR Not Detected (NotDetected); Mycoplasma Pneumoniae, PCR Not Detected (NotDetected); Parainfluenza 1, PCR Not Detected (NotDetected); Parainfluenza 2, PCR Not Detected (NotDetected); Parainfluenza 3, PCR Not Detected (NotDetected); Parainfluenza 4, PCR Not Detected (NotDetected)
[2024-09-12] MEDS: dilTIAZem HCL 180MG CAP.ER.24H 180 MG PO (09:14)
[2024-09-12] MEDS: guaiFENesin 600 MG TAB.ER.12H 1200 MG PO ×2 (09:14→21:01)
[2024-09-12] MEDS: FOLIC ACID 1MG TABLET 1 MG PO (09:14)
[2024-09-12] MEDS: SPIRONOLACTONE 25MG TABLET 25 MG PO (09:15)
[2024-09-12] MEDS: METOPROLOL SUCCINATE XL 100MG TABLET 100 MG PO (09:15)
[2024-09-12] MEDS: BUMETANIDE 1MG/4ML VIAL 2 MG IV ×3 (09:16→21:04)
[2024-09-12] MEDS: VANCOMYCIN HCL 50MG/ML 150ML KIT 125 MG PO ×4 (09:17→21:03)
[2024-09-12 10:21] LABS: Hematocrit 29.3 % (42.0-52.0); Hemoglobin 9.3 g/dL (14.1-18.0); Immature Granulocytes % 0.5 %; Mean Corpuscular HGB Conc 31.7 g/dL (31.8-35.4); Mean Corpuscular Hemoglobin 28.4 pg (27.0-31.2); Mean Corpuscular Volume 89.3 fl (80-94); Nucleated Red Blood Cells % 0 %; Platelet Count 177 K/mm3 (142-424); Red Blood Count 3.28 M/mm3 (4.60-6.20); Red Cell Distribution Width-SD 76.5 fL; White Blood Count 6.3 K/mm3 (4.8-10.8)
[2024-09-12 10:31] LABS: Albumin Level 2.5 g/dl (3.5-5.0); Chloride 96 mmol/L (98-107); Sodium 134 mmol/L (136-145)
[2024-09-12 10:34] LABS: Alanine Aminotransferase 18 U/L (12-78); Albumin/Globulin Ratio 0.8 (1.1-1.8); Anion Gap 10.5 mEq/L (5-15); Aspartate Amino Transferase 37 U/L (17-59); Blood Urea Nitrogen 8 mg/dl (9-20); Carbon Dioxide 30 mmol/L (22.0-30.0); Creatinine Clearance Estimated 101 mL/min (50-200); Creatinine,Serum 1.30 mg/dl (0.66-1.25); Estimated Glomerular Filt Rate 57 ml/min (>60); GFR (African American) 68 ML/MIN (>60); Globulin 3.1 g/dL (1.3-3.2); Total Protein,Serum 5.6 g/dl (6.3-8.2)
[2024-09-12 10:35] LABS: Alkaline Phosphatase 274 U/L (38-126); Bilirubin,Total 0.9 mg/dl (0.2-1.3); Calcium 7.4 mg/dl (8.4-10.2); Glucose 119 mg/dl (74-100)
[2024-09-12 10:42] LABS: Magnesium 1.0 mg/dl (1.6-2.3); Potassium 2.5 mmoL/L (3.5-5.1)
[2024-09-12] MEDS: MAGNESIUM SULFATE IN WATER 2 GM/50 ML PIGGYBACK IV ×3 (11:23→14:42)
[2024-09-12] MEDS: POTASSIUM CHLORIDE 20MEQ TAB 40 MEQ PO ×3 (11:24→18:15)
--- NOTE | 2024-09-12 11:54 | PC.WOUNDNOTE ---
Oxygen saturation droppped to 69% while on room air at rest while asleep. 2LNC added, oxygen saturation 97%
--- NOTE | 2024-09-12 18:20 | PC.NURSE ---
pt has been A&Ox4 this shift. we have been diuresing him and he has a fluid restriction of 1700. he is at 1540 now. he has slept quite a while today and his blood pressures have been a little soft. is aware. No other needs at this time. Call light within reach.
[2024-09-12] MEDS: OLANZapine 5 MG ODT TABLET SL (21:00)
[2024-09-12] MEDS: PANTOPRAZOLE 40MG TABLET 40 MG PO (21:00)
[2024-09-12] MEDS: GABAPENTIN 300MG CAPSULE 300 MG PO (21:01)
--- NOTE | 2024-09-12 21:50 | EXP.PN ---
Subjective *Date: 09/12/24 *Time: 21:50 Exam Data for Last 24 hours Vital signs and Labs for Last 24 Hours: Temp Pulse Resp BP Pulse Ox O2 Del Method O2 Flow Rate 98.6 F 93 H 22 100/68 L 100 Nasal Cannula 2 09/12/24 20:00 09/12/24 20:00 09/12/24 20:00 09/12/24 20:00 09/12/24 20:00 09/12/24 20:00 09/12/24 20:00 FiO2 28 09/12/24 19:55 Laboratory Results - last 24 hr 09/11/24 05:39: Chlamy pneumoniae PCR Not detected, Adenovirus (PCR) Not detected, B. pertussis DNA (PCR) Not detected, Coronavirus OC43 (PCR) Not detected, Coronavirus HKU1 (PCR) Not detected, Coronavirus 229E (PCR) Not detected, SARS-CoV-2 (PCR) Not detected, Coronavirus NL63 (PCR) Not detected, Human Metapneumovir PCR Not detected, Influenza A (H1) PCR Not detected, Influ A (H1N1/09) PCR Not detected, Influenza A (H3) PCR Not detected, Influenza Type A (PCR) Not detected, Influenza Type B (PCR) Not detected, M. pneumoniae (PCR) Not detected, Parainfluenza 1 (PCR) Not detected, Parainfluenza 2 (PCR) Not detected, Parainfluenza 3 (PCR) Not detected, Parainfluenza 4 (PCR) Not detected, RSV (PCR) Not detected, Entero/Rhino (PCR) Not detected 09/12/24 09:45: WBC 6.3, RBC 3.28 L, Hgb 9.3 L, Hct 29.3 L, MCV 89.3, MCH 28.4, MCHC 31.7 L, RDW 24.0 H, Plt Count 177 D, MPV 10.7 H, Neut % (Auto) 59.5, Lymph % (Auto) 22.1, [place] % (Auto) 13.5 H, Eos % (Auto) 3.0, Baso % (Auto) 1.4, Neut # (Auto) 3.7, Lymph # (Auto) 1.4, [place] # (Auto) 0.9, Eos # (Auto) 0.2, Baso # (Auto) 0.1, Sodium 134 L, Potassium 2.5 L* D, Chloride 96 L, Carbon Dioxide 30, Anion Gap 10.5, BUN 8 L, Creatinine 1.30 H, Estimated Creat Clear 101, Estimated GFR 57 L, Est GFR ( Amer) 68, Glucose 119 H, Calcium 7.4 L, Magnesium 1.0 L D, Total Bilirubin 0.9, AST 37, ALT 18, Alkaline Phosphatase 274 H, Total Protein 5.6 L, Albumin 2.5 L, Globulin 3.1, Albumin/Globulin Ratio 0.8 L I & O for Last 24 hours: Intake & Output 09/09/24 09/10/24 09/11/24 09/12/24 23:59 23:59 23:59 23:59 Intake Total 1070 / 1230 1410 / 1770 2100 / 2340 1470 / 1470 Output Total 1100 / 1100 3300 / 3750 3100 / 4000 2400 / 2400 Balance -30 / 130 -1890 / -1980 -1000 / -1660 -930 / -930 Weight 122.924 kg 123.944 kg 116.176 kg 116.573 kg Assessment and Plan *Assessment and plan (1) Acute on chronic heart failure: Status: Acute Category: Medical Code(s): I50.9 - Heart failure, unspecified Plan: Echo 03/19/2024: The left ventricle is normal in size. There is increased LV wall thickness. There is normal LV systolic function. The septum is asynchronous. No regional wall motion abnormalities are noted. LVEF is 50-55%.The right ventricle is severely dilated. There is severe reduction in RV systolic function. Chest x-ray per my review negative for acute findings BNP on admission 8640 Troponin 0.02 on admission Patient is prescribed Bumex 1 mg daily Start Bumex 1 mg IV twice daily Started spironolactone 25 mg daily per last med rec Monitor daily weights Strict I's and O's Fluid restriction 1200 mL daily (2) Atrial fibrillation with RVR: Status: Acute Category: Medical Code(s): I48.91 - Unspecified atrial fibrillation Plan: EKG reviewed A-fib with RVR, HR 151 Patient receives Cardizem 20 mg IV x 2 in the ER, heart rate on admission 126 Nursing staff verifying home medications with patient's pharmacy because he is unaware of what he takes Started diltiazem 180 mg p.o. daily, metoprolol 100 mg daily per last med rec Monitor telemetry (3) Hypoxic respiratory failure: Status: Acute Category: Medical Code(s): J96.91 - Respiratory failure, unspecified with hypoxia Plan: Continue supplemental oxygen to maintain SpO2 88 to 92% in the setting of COPD and wean as tolerated Xopenex 0.63 mg 3 times daily Vital signs every 4 hours (4) Bloody diarrhea: Status: Acute Category: Medical Code(s): R19.7 - Diarrhea, unspecified Plan: Diarrhea panel pending Monitor H&H every 4 hours Monitor vitals every 4 hours (5) Enteritis: Status: Acute Category: Medical Code(s): K52.9 - Noninfective gastroenteritis and colitis, unspecified Plan: CT abdomen and pelvis per my review negative for active hemorrhage into the bowel. Findings suggest enteritis. Blood cultures pending, follow results and adjust antibiotics if indicated Zosyn 3.375 g every 6 hours (6) Anemia: Status: Acute Category: Medical Code(s): D64.9 - Anemia, unspecified Plan: H&H every 4 hours Hemoglobin 9.7 on admission. Baseline ranges from 9.5-10.2 Consider GI/surgical consult if hemoglobin trends down (7) Noncompliance with medication regimen: Status: Acute Category: Medical Code(s): Z91.148 - Patient's other noncompliance with medication regimen for other reason Plan: Strongly encourage medication compliance due to comorbidities (8) Alcohol abuse: Status: Acute Category: Social Hx Code(s): F10.10 - Alcohol abuse, uncomplicated Plan: EtOH 234 Patient reports he has cut down from 1/5 of alcohol to a pint of [place] Monitor for signs and symptoms of alcohol withdrawal Librium 25 mg 3 times daily and Ativan 1 mg every 4 hours as needed for alcohol withdrawal Seizure precautions (9) Tobacco use: Status: Acute Category: Social Hx Code(s): Z72.0 - Tobacco use Plan: Pack-a-day smoker Order nicotine gum Patient reports allergy to nicotine patch adhesive (10) COPD (chronic obstructive pulmonary disease): Status: Chronic Qualifiers: COPD type: unspecified COPD Qualified Code(s): J44.9 - Chronic obstructive pulmonary disease, unspecified Category: Medical Code(s): J44.9 - Chronic obstructive pulmonary disease, unspecified Plan: Continue supplemental oxygen to maintain SpO2 88 to 92% in the setting of COPD and wean as tolerated Xopenex 0.63 mg 3 times daily (11) Hypothyroidism: Status: Acute Category: Medical Code(s): E03.9 - Hypothyroidism, unspecified Plan: Restart levothyroxine when dosage verified by patient's pharmacy Plan Patient's mentation is improving with thiamine, though a little more confused today. Continue diuresis with IV Bumex 2 mg twice daily. Net -3850 so far. No significant alcohol withdrawal symptoms. Continue vancomycin for C. difficile. Abdominal pain improving.
[2024-09-13] VITALS (9 sets, daily range): BP systolic 100–140; BP diastolic 51–72; PULSE 70–100; RESP 15–24; TEMP 36.4–37.2; O2SAT 92–98; BMI 35.1
[2024-09-13] MEDS: LEVOTHYROXINE 125MCG (0.125MG) TAB 125 MCG PO (06:04)
[2024-09-13] MEDS: THIAMINE 100MG TABLET 400 MG PO ×3 (06:04→21:58)
[2024-09-13] MEDS: BUMETANIDE 1MG/4ML VIAL 2 MG IV ×3 (08:10→21:58)
[2024-09-13] MEDS: VANCOMYCIN HCL 50MG/ML 150ML KIT 125 MG PO ×4 (08:10→21:58)
[2024-09-13] MEDS: dilTIAZem HCL 180MG CAP.ER.24H 180 MG PO (08:10)
[2024-09-13] MEDS: SERTRALINE 100MG TABLET 100 MG PO (08:11)
[2024-09-13] MEDS: SPIRONOLACTONE 25MG TABLET 25 MG PO (08:11)
[2024-09-13] MEDS: FOLIC ACID 1MG TABLET 1 MG PO (08:11)
[2024-09-13] MEDS: DAPAGLIFLOZIN PROPANEDIOL 10 MG TABLET PO (08:11)
[2024-09-13] MEDS: guaiFENesin 600 MG TAB.ER.12H 1200 MG PO ×2 (08:11→21:57)
[2024-09-13] MEDS: METOPROLOL SUCCINATE XL 100MG TABLET 100 MG PO (08:11)
[2024-09-13 09:36] LABS: Hematocrit 31.2 % (42.0-52.0); Hemoglobin 9.5 g/dL (14.1-18.0); Immature Granulocytes % 0.3 %; Mean Corpuscular HGB Conc 30.4 g/dL (31.8-35.4); Mean Corpuscular Hemoglobin 28.0 pg (27.0-31.2); Mean Corpuscular Volume 92.0 fl (80-94); Nucleated Red Blood Cells % 0 %; Platelet Count 200 K/mm3 (142-424); Red Blood Count 3.39 M/mm3 (4.60-6.20); Red Cell Distribution Width-SD 82.2 fL; White Blood Count 6.3 K/mm3 (4.8-10.8)
--- NOTE | 2024-09-13 10:12 | SW/DCPLANNER ---
Addendum entered by Sarah Stroud 09/13/24 13:25: MD, Social workers, and myself spoke with the patient regarding PT recommendations of placement. Patient continues to refuse placement and is only interested in out-patient services. Patient requested home health services, but is not a candidate for home coby due to insurance. Patient was offered out-patient therapy sessions at [facility] and is agreeable. Patient confirms he will have transportation to out-patient appointments. [facility] resource lists has been provided to patient. CM will continue to follow up until ready for discharge. Original Note: Spoke with patient about discharge plans, PTOT recommends placement. Patient is uninterested in placement but did not refuse at the time. Going to follow up around lunch.
[2024-09-13] MEDS: POTASSIUM CHLORIDE 20MEQ TAB 40 MEQ PO ×3 (11:27→17:32)
[2024-09-13] MEDS: MAGNESIUM SULFATE IN WATER 2 GM/50 ML PIGGYBACK IV ×3 (11:27→13:17)
[2024-09-13 11:33] LABS: Albumin Level 2.7 g/dl (3.5-5.0); Chloride 99 mmol/L (98-107); Potassium 4.1 mmoL/L (3.5-5.1); Sodium 134 mmol/L (136-145)
[2024-09-13 11:36] LABS: Alanine Aminotransferase 17 U/L (12-78); Albumin/Globulin Ratio 0.8 (1.1-1.8); Alkaline Phosphatase 301 U/L (38-126); Anion Gap 13.1 mEq/L (5-15); Aspartate Amino Transferase 37 U/L (17-59); Bilirubin,Total 0.7 mg/dl (0.2-1.3); Blood Urea Nitrogen 11 mg/dl (9-20); Calcium 7.8 mg/dl (8.4-10.2); Carbon Dioxide 26 mmol/L (22.0-30.0); Creatinine Clearance Estimated 88 mL/min (50-200); Creatinine,Serum 1.50 mg/dl (0.66-1.25); Estimated Glomerular Filt Rate 48 ml/min (>60); GFR (African American) 58 ML/MIN (>60); Globulin 3.3 g/dL (1.3-3.2); Glucose 106 mg/dl (74-100); Magnesium 1.7 mg/dl (1.6-2.3); Total Protein,Serum 6.0 g/dl (6.3-8.2)
--- NOTE | 2024-09-13 17:42 | PC.NURSE ---
pt resting supine in bed at this time. no complaints of pain. pt has been refusing turns this shift. encouraged turns and educated pt on skin breakdown risks associated with decreased mobility. mag and potassium replaced per protocol. pt requiring 2LNC to sat >90%. remains in contact enteric precautions for c. diff. diuretics given per [address] no needs at this time. call light within reach.
[2024-09-13] MEDS: OLANZapine 5 MG ODT TABLET SL (21:57)
[2024-09-13] MEDS: GABAPENTIN 300MG CAPSULE 300 MG PO (21:57)
[2024-09-13] MEDS: PANTOPRAZOLE 40MG TABLET 40 MG PO (21:58)
--- NOTE | 2024-09-13 22:08 | EXP.PN ---
Subjective *Date: 09/13/24 *Time: 22:08 Exam Data for Last 24 hours Vital signs and Labs for Last 24 Hours: Temp Pulse Resp BP Pulse Ox O2 Del Method O2 Flow Rate 99.0 F 70 24 140/51 L 94 L Nasal Cannula 2 09/13/24 20:00 09/13/24 20:00 09/13/24 20:00 09/13/24 20:00 09/13/24 20:00 09/13/24 20:00 09/13/24 20:00 FiO2 28 09/12/24 19:55 Laboratory Results - last 24 hr 09/13/24 09:22: WBC 6.3, RBC 3.39 L, Hgb 9.5 L, Hct 31.2 L, MCV 92.0, MCH 28.0, MCHC 30.4 L, RDW 24.7 H, Plt Count 200, MPV 10.5 H, Neut % (Auto) 46.9, Lymph % (Auto) 31.5, [place] % (Auto) 16.2 H, Eos % (Auto) 2.9, Baso % (Auto) 2.2 H, Neut # (Auto) 3.0, Lymph # (Auto) 2.0, [place] # (Auto) 1.0, Eos # (Auto) 0.2, Baso # (Auto) 0.1, Sodium 134 L, Potassium 4.1 D, Chloride 99, Carbon Dioxide 26, Anion Gap 13.1, BUN 11 D, Creatinine 1.50 H, Estimated Creat Clear 88, Estimated GFR 48 L, Est GFR ( Amer) 58 L, Glucose 106 H, Calcium 7.8 L, Magnesium 1.7 D, Total Bilirubin 0.7, AST 37, ALT 17, Alkaline Phosphatase 301 H, Total Protein 6.0 L, Albumin 2.7 L, Globulin 3.3 H, Albumin/Globulin Ratio 0.8 L I & O for Last 24 hours: Intake & Output 09/10/24 09/11/24 09/12/24 09/13/24 23:59 23:59 23:59 23:59 Intake Total 1410 / 1770 2100 / 2340 1470 / 1830 1010 / 1010 Output Total 3300 / 3750 3100 / 4000 2600 / 2600 1900 / 1900 Balance -1890 / -1980 -1000 / -1660 -1130 / -770 -890 / -890 Weight 123.944 kg 116.176 kg 116.573 kg 117.622 kg Microbiology Reports for the Last 24 Hours: Microbiology 09/09/24 03:23 Blood Blood Culture - Preliminary NO GROWTH AFTER 4 DAYS 09/09/24 02:50 Blood Blood Culture - Preliminary NO GROWTH AFTER 4 DAYS Assessment and Plan *Assessment and plan (1) Acute on chronic heart failure: Status: Acute Category: Medical Code(s): I50.9 - Heart failure, unspecified Plan: Echo 03/19/2024: The left ventricle is normal in size. There is increased LV wall thickness. There is normal LV systolic function. The septum is asynchronous. No regional wall motion abnormalities are noted. LVEF is 50-55%.The right ventricle is severely dilated. There is severe reduction in RV systolic function. Chest x-ray per my review negative for acute findings BNP on admission 8640 Troponin 0.02 on admission Patient is prescribed Bumex 1 mg daily Start Bumex 1 mg IV twice daily Started spironolactone 25 mg daily per last med rec Monitor daily weights Strict I's and O's Fluid restriction 1200 mL daily (2) Atrial fibrillation with RVR: Status: Acute Category: Medical Code(s): I48.91 - Unspecified atrial fibrillation Plan: EKG reviewed A-fib with RVR, HR 151 Patient receives Cardizem 20 mg IV x 2 in the ER, heart rate on admission 126 Nursing staff verifying home medications with patient's pharmacy because he is unaware of what he takes Started diltiazem 180 mg p.o. daily, metoprolol 100 mg daily per last med rec Monitor telemetry (3) Hypoxic respiratory failure: Status: Acute Category: Medical Code(s): J96.91 - Respiratory failure, unspecified with hypoxia Plan: Continue supplemental oxygen to maintain SpO2 88 to 92% in the setting of COPD and wean as tolerated Xopenex 0.63 mg 3 times daily Vital signs every 4 hours (4) Bloody diarrhea: Status: Acute Category: Medical Code(s): R19.7 - Diarrhea, unspecified Plan: Diarrhea panel pending Monitor H&H every 4 hours Monitor vitals every 4 hours (5) Enteritis: Status: Acute Category: Medical Code(s): K52.9 - Noninfective gastroenteritis and colitis, unspecified Plan: CT abdomen and pelvis per my review negative for active hemorrhage into the bowel. Findings suggest enteritis. Blood cultures pending, follow results and adjust antibiotics if indicated Zosyn 3.375 g every 6 hours (6) Anemia: Status: Acute Category: Medical Code(s): D64.9 - Anemia, unspecified Plan: H&H every 4 hours Hemoglobin 9.7 on admission. Baseline ranges from 9.5-10.2 Consider GI/surgical consult if hemoglobin trends down (7) Noncompliance with medication regimen: Status: Acute Category: Medical Code(s): Z91.148 - Patient's other noncompliance with medication regimen for other reason Plan: Strongly encourage medication compliance due to comorbidities (8) Alcohol abuse: Status: Acute Category: Social Hx Code(s): F10.10 - Alcohol abuse, uncomplicated Plan: EtOH 234 Patient reports he has cut down from 1/5 of alcohol to a pint of [place] Monitor for signs and symptoms of alcohol withdrawal Librium 25 mg 3 times daily and Ativan 1 mg every 4 hours as needed for alcohol withdrawal Seizure precautions (9) Tobacco use: Status: Acute Category: Social Hx Code(s): Z72.0 - Tobacco use Plan: Pack-a-day smoker Order nicotine gum Patient reports allergy to nicotine patch adhesive (10) COPD (chronic obstructive pulmonary disease): Status: Chronic Qualifiers: COPD type: unspecified COPD Qualified Code(s): J44.9 - Chronic obstructive pulmonary disease, unspecified Category: Medical Code(s): J44.9 - Chronic obstructive pulmonary disease, unspecified Plan: Continue supplemental oxygen to maintain SpO2 88 to 92% in the setting of COPD and wean as tolerated Xopenex 0.63 mg 3 times daily (11) Hypothyroidism: Status: Acute Category: Medical Code(s): E03.9 - Hypothyroidism, unspecified Plan: Restart levothyroxine when dosage verified by patient's pharmacy Plan Patient's mentation is improving with thiamine, though a little more confused today. Continue diuresis with IV Bumex 2 mg twice daily. Net -3850 so far. No significant alcohol withdrawal symptoms. Continue vancomycin for C. difficile. Abdominal pain improving.
[2024-09-14] VITALS: BP 110/68; PULSE 82; RESP 20; TEMP 36.6; O2SAT 90
[2024-09-14 04:00] VITALS: BP 108/63; PULSE 90; RESP 18; TEMP 36.6; O2SAT 97; BMI 34.9
--- NOTE | 2024-09-14 04:18 | PC.NURSE ---
Addendum entered by Yeimi Duran RN 09/14/24 04:20: c-diff precautions maintained. Original Note: v/s, ox4, 2LNC satting in 90's. No acute events to report. Plan of care ongoing.
[2024-09-14] MEDS: THIAMINE 100MG TABLET 400 MG PO ×2 (05:55→12:00)
[2024-09-14 05:59] VITALS: PULSE 88; PULSE 92
[2024-09-14] MEDS: LEVOTHYROXINE 125MCG (0.125MG) TAB 125 MCG PO (06:33)
[2024-09-14 08:00] VITALS: BP 101/54; PULSE 92; RESP 18; TEMP 36.8; O2SAT 92
--- NOTE | 2024-09-14 08:53 | EXP.DC.SUM ---
General Admission date:: 09/09/24 HPI HPI HPI: Mr. Richardson is a 59-year-old male presents to ER with complaints of bloody diarrhea. Patient has a past medical history of congestive HFrEF, atrial fibrillation, hypertension, pulmonary hypertension, COPD, cirrhosis, alcohol abuse, and nicotine dependence. Patient reports for the past 4 days he has been having loose stools 4-5 times daily. He states he was using a towel this evening to clean himself and noticed there was blood on the towel after the dog started to lick it. He states that he had been using the same towel all day and cannot quantify how much blood was on the towel. He reports the blood was bright red. He reports his belly and legs are sore from increased swelling. Patient is noncompliant with home medications. He reports chronic shortness of breath unchanged from baseline. He also reports lightheadedness and chills. Also reports chronic cough. He states he has cut back from 1/5 of alcohol to a pint of [place] which he consumed this evening. He also reports he cut down from 2 packs cigarettes to 1 pack a day. Patient denies fever congestion, runny nose, chest pain, nausea, vomiting, constipation, headache, dizziness, or syncope. Hospital Course Hospital Course Hospital Course: Alonso Richardson is a 59-year-old male who presented with 4 days of diarrhea and was admitted for C. difficile colitis, HFpEF exacerbation, alcohol intoxication. Patient has had multiple admissions for similar presentation over the past 2 months, nonadherent to medications at home. #Physical deconditioning #HFpEF exacerbation #Acute hypoxic respiratory failure ? Has had about a 10 pound weight gain since last admission. In the setting of medication nonadherence, alcohol use disorder. - Responded very well to IV Bumex diuresis, net -5.2L ? Discharged with Bumex 2 mg daily, spironolactone 25 mg, Farxiga 10 mg. Strongly encouraged patient to be adherent to his medications. Patient was agreeable. ? Advised to follow-up with cardiology within 1 week. ? Refused SNF recommended by PT/OT, set up with outpatient physical therapy. ? Weaned back to room air from 2 L nasal cannula. #C. difficile colitis ? Treated with oral vancomycin for 5 days. Discharged with 5 more days. #Paroxysmal A-fib, RVR ? Continue diltiazem 180 mg daily, metoprolol succinate 100 mg daily, Xarelto 20 mg. Cardiology had previously advised to discontinue amiodarone, digoxin due to poor medication adherence. - Echo recently showed reduced EF of 40%. Right-sided volume overload with flattening of septum. Severe RV dilation. Elevated RVSP of 45 to 50 mmHgx #Acute alcohol intoxication #Alcohol withdrawal #Alcohol use disorder, severe - No significant withdrawal symptoms. Treated with Valium as needed. ? Continue home gabapentin 300 mg nightly, naltrexone 50 mcg. #Insomnia ? Patient has weird dreams with trazodone, reduced dose from 100 mg to 50 mg. Normocytic anemia: Improvement with hemoconcentration. Hemoglobin 9.4. Stable Total time spent on discharge: 36 minutes on chart review, counseling, documentation, and direct care with patient. Exam Data for Last 24 hours Vital signs and Labs for Last 24 Hours: Temp Pulse Resp BP Pulse Ox O2 Del Method O2 Flow Rate 97.9 F 88 18 108/63 L 97 Nasal Cannula 2 09/14/24 04:00 09/14/24 05:59 09/14/24 04:00 09/14/24 04:00 09/14/24 04:00 09/14/24 06:15 09/14/24 06:15 FiO2 28 09/12/24 19:55 Laboratory Results - last 24 hr 09/13/24 09:22: WBC 6.3, RBC 3.39 L, Hgb 9.5 L, Hct 31.2 L, MCV 92.0, MCH 28.0, MCHC 30.4 L, RDW 24.7 H, Plt Count 200, MPV 10.5 H, Neut % (Auto) 46.9, Lymph % (Auto) 31.5, White % (Auto) 16.2 H, Eos % (Auto) 2.9, Baso % (Auto) 2.2 H, Neut # (Auto) 3.0, Lymph # (Auto) 2.0, White # (Auto) 1.0, Eos # (Auto) 0.2, Baso # (Auto) 0.1, Sodium 134 L, Potassium 4.1 D, Chloride 99, Carbon Dioxide 26, Anion Gap 13.1, BUN 11 D, Creatinine 1.50 H, Estimated Creat Clear 88, Estimated GFR 48 L, Est GFR ( Amer) 58 L, Glucose 106 H, Calcium 7.8 L, Magnesium 1.7 D, Total Bilirubin 0.7, AST 37, ALT 17, Alkaline Phosphatase 301 H, Total Protein 6.0 L, Albumin 2.7 L, Globulin 3.3 H, Albumin/Globulin Ratio 0.8 L I & O for Last 24 hours: Intake & Output 09/11/24 09/12/24 09/13/24 09/14/24 23:59 23:59 23:59 23:59 Intake Total 2100 / 2340 1470 / 1830 1010 / 1250 1200 / 1200 Output Total 3100 / 4000 2600 / 2600 1900 / 2150 500 / 500 Balance -1000 / -1660 -1130 / -770 -890 / -900 700 / 700 Weight 116.176 kg 116.573 kg 117.622 kg 116.981 kg Microbiology Reports for the Last 24 Hours: Microbiology 09/09/24 03:23 Blood Blood Culture - Final NO GROWTH AFTER 5 DAYS 09/09/24 02:50 Blood Blood Culture - Final NO GROWTH AFTER 5 DAYS Constitutional Constitutional: somnolent *Routine HEENT Exam Eye: Present PERRL *Routine Respiratory Exam Respiratory: Present CTA bilaterally; Absent accessory muscle use, wheezes or crackles *Routine Cardiovascular Exam Cardiovascular: Present RRR, Normal S1 and Normal S2; Absent murmur, gallop or rubs *Routine Abdominal Exam Abdominal: Present soft; Absent tenderness *Routine Extremities Exam Extremities: Present edema and pulses intact; Absent cyanosis *Routine Skin Exam Skin: Present intact; Absent erythema or wounds *Routine Neurological Exam Neurological: Present alert and oriented X3 Routine Psychiatric Exam Psychiatric: Present cooperative Results Data Completed and Pending Labs on day of discharge: Labs from last 24 hours 09/13/24 09:22 WBC 6.3 RBC 3.39 L Hgb 9.5 L Hct 31.2 L MCV 92.0 MCH 28.0 MCHC 30.4 L RDW 24.7 H Plt Count 200 MPV 10.5 H Neut % (Auto) 46.9 Lymph % (Auto) 31.5 White % (Auto) 16.2 H Eos % (Auto) 2.9 Baso % (Auto) 2.2 H Neut # (Auto) 3.0 Lymph # (Auto) 2.0 White # (Auto) 1.0 Eos # (Auto) 0.2 Baso # (Auto) 0.1 Sodium 134 L Potassium 4.1 D Chloride 99 Carbon Dioxide 26 Anion Gap 13.1 BUN 11 D Creatinine 1.50 H Estimated Creat Clear 88 Estimated GFR 48 L Est GFR ( Amer) 58 L Glucose 106 H Calcium 7.8 L Magnesium 1.7 D Total Bilirubin 0.7 AST 37 ALT 17 Alkaline Phosphatase 301 H Total Protein 6.0 L Albumin 2.7 L Globulin 3.3 H Albumin/Globulin Ratio 0.8 L DS: Diagnosis Discharge Diagnosis (1) Acute on chronic heart failure: Status: Acute Code(s): I50.9 - Heart failure, unspecified (2) Atrial fibrillation with RVR: Status: Acute Code(s): I48.91 - Unspecified atrial fibrillation (3) Hypoxic respiratory failure: Status: Acute Code(s): J96.91 - Respiratory failure, unspecified with hypoxia (4) Bloody diarrhea: Status: Acute Code(s): R19.7 - Diarrhea, unspecified (5) Enteritis: Status: Acute Code(s): K52.9 - Noninfective gastroenteritis and colitis, unspecified (6) Anemia: Status: Acute Code(s): D64.9 - Anemia, unspecified (7) Noncompliance with medication regimen: Status: Acute Code(s): Z91.148 - Patient's other noncompliance with medication regimen for other reason (8) Alcohol abuse: Status: Acute Code(s): F10.10 - Alcohol abuse, uncomplicated (9) Tobacco use: Status: Acute Code(s): Z72.0 - Tobacco use (10) COPD (chronic obstructive pulmonary disease): Status: Chronic Code(s): J44.9 - Chronic obstructive pulmonary disease, unspecified Qualifiers: COPD type: unspecified COPD Qualified Code(s): J44.9 - Chronic obstructive pulmonary disease, unspecified (11) Hypothyroidism: Status: Acute Code(s): E03.9 - Hypothyroidism, unspecified Meds Home Medications and Allergies Home Medications ?Medication ?Instructions ?Recorded ?Confirmed ?Type ferrous sulfate 324 mg (65 mg 324 mg PO DAILY #90 tabs 06/15/24 09/09/24 Rx iron) tablet,delayed release levothyroxine 125 mcg tablet 125 mcg PO DAILYDM 07/16/24 09/09/24 History sertraline 100 mg tablet 100 mg PO DAILY 07/16/24 09/09/24 History thiamine HCl (vitamin B1) 100 mg 100 mg PO DAILY 07/16/24 09/09/24 History tablet gabapentin 300 mg capsule 300 mg PO HS 30 days #30 caps 08/07/24 09/09/24 Rx naltrexone 50 mg tablet 50 mg PO DAILY 30 days #30 tabs 08/07/24 09/09/24 Rx pantoprazole 40 mg tablet,delayed 40 mg PO HS 30 days #30 tabs 08/13/24 09/09/24 Rx release dapagliflozin propanediol 10 mg 10 mg PO DAILY 30 days #30 tabs 09/13/24 Rx tablet (Farxiga) diltiazem HCl 180 mg 180 mg PO DAILY 30 days #30 caps 09/13/24 Rx capsule,extended release 24 hr metoprolol succinate 100 mg 100 mg PO DAILY #30 tabs 09/13/24 Rx tablet,extended release 24 hr rivaroxaban 20 mg tablet 20 mg PO QPMWITHMEAL 30 days #30 09/13/24 Rx tabs bumetanide 2 mg tablet 2 mg PO DAILY 30 days #30 tabs 09/14/24 Rx spironolactone 25 mg tablet 25 mg PO DAILY 30 days #30 tabs 09/14/24 Rx trazodone 100 mg tablet 50 mg (1/2 x 100 mg) PO HS 30 days 09/14/24 09/09/24 Rx #0 tabs vancomycin 50 mg/mL oral solution 125 mg (2.5 mL) PO QID 5 days #0 mL 09/14/24 Rx (Firvanq) New Prescriptions to Start Prescriptions: Jorje Pham spironolactone Jorje Anderson Allergies Allergy/AdvReac Type Severity Reaction Status Date / Time hydrochlorothiazide AdvReac Unknown Other Verified 06/15/24 10:14 Discharge Plan Disposition Patient Disposition: Home, Self-Care Condition: Fair Discharge Order Discharge Orders: Discharge Order (Routine); Ordered 09/14/24 Ordered By: Jorje Anderson Follow up Plan Follow up with: Jai Kate APRN [Nurse Practitioner, Family Practice] - 09/22/24 2:40 pm Eduardo Mas PA [Physician Automobile Damage Appraiser, Cardiology] - 09/21/24 11:00 am Jorje Gerardo MD [Staff Physician, Urology] - 09/20/24 9:00 am Referral Note: Bilateral large hydrocele Popeye Thomson, PT [Physical Therapist, Physical Therapy] - 09/20/24 3:00 pm Referral Note: Prescriptions/Medication Reconciliation: New vancomycin [Firvanq] 50 mg/mL Recon Soln 125 mg PO QID 5 Days Qty: 0 0RF Continued ferrous sulfate 324 mg (65 mg iron) tablet,delayed release (DR/EC) 324 mg PO DAILY Qty: 90 0RF dapagliflozin propanediol [Farxiga] 10 mg tablet 10 mg PO DAILY 30 Days Qty: 30 2RF diltiazem HCl 180 mg capsule,extended release 24hr 180 mg PO DAILY 30 Days Qty: 30 2RF metoprolol succinate 100 mg tablet extended release 24 hr 100 mg PO DAILY Qty: 30 2RF rivaroxaban 20 mg tablet 20 mg PO QPMWITHMEAL 30 Days Qty: 30 2RF sertraline 100 mg tablet 100 mg PO DAILY thiamine HCl (vitamin B1) 100 mg tablet 100 mg PO DAILY levothyroxine 125 mcg tablet 125 mcg PO DAILYDM naltrexone 50 mg tablet 50 mg PO DAILY 30 Days Qty: 30 0RF gabapentin 300 mg capsule 300 mg PO HS 30 Days Qty: 30 0RF pantoprazole 40 mg Tablet,Delayed Release (Dr/Ec) 40 mg PO HS 30 Days Qty: 30 0RF bumetanide 2 mg tablet 2 mg PO DAILY 30 Days Qty: 30 2RF spironolactone 25 mg tablet 25 mg PO DAILY 30 Days Qty: 30 2RF Changed trazodone 100 mg Tablet 50 mg PO HS 30 Days Qty: 0 0RF Other Ambulatory Orders: Rehab Eval, OP (Routine) Timeframe: 1 Week Facility: [facility] - Location: Physical Therapy Ordered By: Jorje Anderson Problem Reconciliation Problems Reviewed?: Yes Patient Discharge Instructions Patient Instructions: DI for Atrial Fibrillation, DI for Alcohol Use Disorder, DI for Colitis, DI for Clostridioides difficile Infection, Stop Light Heart Failure Print Language: Liberian Providers Primary Care Provider: Provider,Referral Admit Provider: Jorje Anderson Attending Provider: Jorje Anderson
[2024-09-14] MEDS: SPIRONOLACTONE 25MG TABLET 25 MG PO (09:10)
[2024-09-14] MEDS: dilTIAZem HCL 180MG CAP.ER.24H 180 MG PO (09:10)
[2024-09-14] MEDS: BUMETANIDE 1MG/4ML VIAL 2 MG IV ×2 (09:10→12:00)
[2024-09-14] MEDS: FOLIC ACID 1MG TABLET 1 MG PO (09:10)
[2024-09-14] MEDS: guaiFENesin 600 MG TAB.ER.12H 1200 MG PO (09:10)
[2024-09-14] MEDS: DAPAGLIFLOZIN PROPANEDIOL 10 MG TABLET PO (09:10)
[2024-09-14] MEDS: METOPROLOL SUCCINATE XL 100MG TABLET 100 MG PO (09:10)
[2024-09-14] MEDS: SERTRALINE 100MG TABLET 100 MG PO (09:10)
[2024-09-14] MEDS: VANCOMYCIN HCL 50MG/ML 150ML KIT 125 MG PO ×2 (09:11→12:03)
[2024-09-14 09:44] LABS: Hematocrit 30.8 % (42.0-52.0); Hemoglobin 9.4 g/dL (14.1-18.0); Immature Granulocytes % 0.5 %; Mean Corpuscular HGB Conc 30.5 g/dL (31.8-35.4); Mean Corpuscular Hemoglobin 27.9 pg (27.0-31.2); Mean Corpuscular Volume 91.4 fl (80-94); Nucleated Red Blood Cells % 0.4 %; Platelet Count 253 K/mm3 (142-424); Red Blood Count 3.37 M/mm3 (4.60-6.20); Red Cell Distribution Width-SD 80.4 fL; White Blood Count 7.4 K/mm3 (4.8-10.8)
[2024-09-14 09:52] LABS: Alanine Aminotransferase 20 U/L (12-78); Albumin Level 3.0 g/dl (3.5-5.0); Albumin/Globulin Ratio 0.9 (1.1-1.8); Alkaline Phosphatase 317 U/L (38-126); Anion Gap 16.1 mEq/L (5-15); Aspartate Amino Transferase 61 U/L (17-59); Bilirubin,Total 0.9 mg/dl (0.2-1.3); Blood Urea Nitrogen 14 mg/dl (9-20); Calcium 8.7 mg/dl (8.4-10.2); Carbon Dioxide 24 mmol/L (22.0-30.0); Chloride 99 mmol/L (98-107); Creatinine Clearance Estimated 73 mL/min (50-200); Creatinine,Serum 1.80 mg/dl (0.66-1.25); Estimated Glomerular Filt Rate 39 ml/min (>60); GFR (African American) 47 ML/MIN (>60); Globulin 3.5 g/dL (1.3-3.2); Glucose 110 mg/dl (74-100); Magnesium 1.8 mg/dl (1.6-2.3); Potassium 5.1 mmoL/L (3.5-5.1); Sodium 134 mmol/L (136-145); Total Protein,Serum 6.5 g/dl (6.3-8.2)
[2024-09-14] MEDS: MAGNESIUM SULFATE IN WATER 2 GM/50 ML PIGGYBACK IV ×2 (11:11→11:58)
[2024-09-14 12:00] VITALS: BP 99/65; PULSE 95; RESP 20; TEMP 36.6; O2SAT 93
--- NOTE | 2024-09-14 13:48 | PEERSUPPORT ---
Peer Support Note Patient Information Patient Information: DOS: 09/14/2024 ? Building Rapport: Pt stated he is feeling better with the medications given, he is being discharged today to home. ? Ps explores what he can do differently: ? -Take medications as prescribed. Pt admitted to only taking medications in the morning for a few days after he is discharged and never taking his night time meds. He is aware this is a responsibility of his in order to stay well. ? Ps will follow up with pt more frequently over the next week. Ps assist pt to set reminders on his cell phone with alarms to remind of medications. ? -No alcohol- Pt aware he turns to alcohol to self-medicate, and the effects on his overall health. Quench Appointment- 09/16/2024-@2:00 pm [facility] to contact pt to confirm prior to appt. -Pt has naltrexone tablets to be taken in the am to help with cravings and urges of alcohol. ? -Daily hygiene- Pt stated he used to take showers daily, then since his knee injury and health issues he has not been able to take care of himself daily. ? Pt has a shower chair, pt to use shower chair, possibly have a supportive friend to be present in the home while he is showering for safety. ? -Attend follow up appointments for continued care- Pt admits to knowing his need to attend appointments for alcohol use disorder, physical therapy, and primary care. ? Ps will discuss appointments during follow ups. ?
[2024-09-14 14:59] VITALS: PULSE 86; PULSE 90
== END 2024-09-14 15:45 | disposition home or self-care (01) | DRG 371 ==
LOC: ER 04:48 → 2ND 08:14
PROVIDERS: Nurse Practitioner Family; Admitting Provider Student in an Organized Health Care Education/Training Program; Emergency Provider Emergency Medicine; Visit Provider Student in an Organized Health Care Education/Training Program
DX: A04.72 Enterocolitis due to Clostridium difficile, not specified as recurrent (principal); I50.33 Acute on chronic diastolic (congestive) heart failure; J96.01 Acute respiratory failure with hypoxia; E51.2 Wernicke's encephalopathy; F10.139 Alcohol abuse with withdrawal, unspecified; I11.0 Hypertensive heart disease with heart failure; I48.0 Paroxysmal atrial fibrillation; E03.9 Hypothyroidism, unspecified; J44.9 Chronic obstructive pulmonary disease, unspecified; F10.129 Alcohol abuse with intoxication, unspecified; G47.00 Insomnia, unspecified; I27.20 Pulmonary hypertension, unspecified; D64.9 Anemia, unspecified; F41.9 Anxiety disorder, unspecified; N43.3 Hydrocele, unspecified; F17.210 Nicotine dependence, cigarettes, uncomplicated; Z79.899 Other long term (current) drug therapy; Z79.890 Hormone replacement therapy; Z79.01 Long term (current) use of anticoagulants; Z88.8 Allergy status to other drugs, medicaments and biological substances; Z91.148 Patient's other noncompliance with medication regimen for other reason; Y90.7 Blood alcohol level of 200-239 mg/100 ml
CPT/HCPCS: 36415; 71045; 74174; 76870; 80053; 80307; 80320; 81001; 82272; 82803; 83605; 83690; 83735; 83880; 84439; 84443; 84484; 85014; 85018; 85025; 85610; 85651; 86140; 87040; 87086; 87507; 87633; 93005; 94640; 94761; 97110; 97162; 97166; 97530; G0328; J1939; J2543; J3475; J7120; P9047; Q9967